=== PATIENT | female | born 1945 | race Caucasian/White ===

== ENCOUNTER → 2017-07-22 13:37 | Outpatient (CLI) | payer MEDICARE, SELFPAY | PROVIDERS: Family Provider Family Medicine Geriatric Medicine; PCP Family Medicine Geriatric Medicine; Visit Provider Family Medicine Geriatric Medicine | DX: R50.9 Fever, unspecified (principal) | CPT/HCPCS: 87633 ==

== ENCOUNTER → 2017-08-19 09:09 | Outpatient (CLI) | payer MEDICARE, SELFPAY ==
--- NOTE | 2017-08-19 09:15 | RAD_ITS ---
PROCEDURE: Fluoroscopic guided Hip Injection DATE: August 19, 2017. INDICATION: Female, 72 years old. Chronic right hip pain. PHYSICIAN: Joshua Rosario M.D. MEDICATIONS: 6 mg of betamethasone and 3 cc of 1% lidocaine. 2% Lidocaine administered subcutaneously for local anesthesia. ACCESS SITE: Right hip. NEEDLE: 22-gauge spinal needle. FLUOROSCOPY TIME (if supplied): (0:30) minutes/seconds FINDINGS: The risks, benefits, and alternatives to the procedure were explained to the patient. The specific risks of bleeding, infection, and neurovascular injury were detailed and accepted. Witnessed informed consent was obtained. A 22-gauge spinal needle was positioned under right graphic fluoroscopic localization. Approximately 2 cc of azygos 300 instilled for localization purposes. Medication was then injected. The patient tolerated the procedure well without any immediate complications. The patient was placed supine with head elevated and returned to the floor in stable condition. RAD/Inj/Asp Aroldo Jt Should/Hip/Knee IMPRESSION: 1. Successful fluoroscopic guided hip injection. Electronically Signed: Joshua Rosario MD at 10:17 EST Tel [phone], Service support ,
== END ==
PROVIDERS: Family Provider Family Medicine Geriatric Medicine; PCP Family Medicine Geriatric Medicine; Visit Provider Specialist
DX: M16.11 Unilateral primary osteoarthritis, right hip (principal)
CPT/HCPCS: 20610; 77002; Q9965; J0702

== ENCOUNTER 2017-08-29 16:20 | Emergency (ER) | payer MEDICARE, SELFPAY ==
[2017-08-29 16:21] VITALS: BP 150/82; PULSE 77; RESP 18; TEMP 36.4; O2SAT 97; BMI 46.0
--- NOTE | 2017-08-29 18:11 | US_ITS ---
STUDY: VENOUS DOPPLER ULTRASOUND - RIGHT LOWER EXTREMITY REASON FOR EXAM: Female, 72 years old. Right leg swelling TECHNIQUE: Ultrasound evaluation of the deep vein system to include lang-scale imaging and compression was performed. Lang-scale imaging and Doppler sonographic evaluation, including duplex spectral analysis and qualitative color flow sonography, was performed. COMPARISON: None. FINDINGS: Common Femoral Vein: Normal compression, spontaneity and augmentation. Normal color Doppler. Common Femoral Vein/Greater Saphenous Junction: Normal compression, spontaneity and augmentation. Normal color Doppler. Deep Femoral Vein: Normal compression, spontaneity and augmentation. Normal color Doppler. Femoral Proximal: Lack of compression, spontaneity and augmentation. Lack of color Doppler. Femoral Middle: Lack of compression, spontaneity and augmentation. Lack of color Doppler. Femoral Distal: Lack of compression, spontaneity and augmentation. Lack of color Doppler. Popliteal Vein: Lack of compression, spontaneity and augmentation. Lack of color Doppler. Posterior Tibial Vein: Lack of compression, spontaneity and augmentation. Lack of color Doppler. Peroneal Vein: Lack of compression, spontaneity and augmentation. Lack of color Doppler. US/Venous Duplex Imag/Limited/Uni IMPRESSION: Thrombosis femoral, popliteal, and calf veins N.B. : The above information has been verbally conveyed by Abdirizak Nunez MD to , Covering Physician, on 08/29/2017 19:54:52 (ET). Electronically Signed: Abdirizak Nunez MD at 19:54 EST , Service support , N.B. : The above information has been verbally conveyed by Abdirizak Nunez MD to , Covering Physician, on 08/29/2017 19:54:52 (ET).
--- NOTE | 2017-08-29 18:54 | ED.VISSUMM ---
- ER Visit Summary Date of Service: 08/29/17 Chief Complaint: Right lower extremity swelling distal mid thigh since hip injection Friday History of Present Illness: The patient is a 72 F who has history of GERD, pulmonary embolus, DVT and chronic pain who presents because of right lower extremity swelling discoloration with pain since she had an injection this past Friday. She denies chest pain, shortness of breath, dyspnea on exertion, orthopnea PND. She denies fever, chills or night sweats. She does have an IVC. Physical Examination: Vital signs are noted. Patient is morbidly obese with a BMI of 46.0. The right lower extremity is swollen discolored and there is pain patient on the just recent deep venous system. Patient's well score is greater than 3. Head is atraumatic normocephalic. Pupils are equal round reactive. Extraocular muscles are intact. TMs are pearly white with landmarks noted. Nares patent with no drainage. Posterior pharynx without erythema or exudate. Uvula is midline. There is no dysphonia or dysphasia. Trachea is midline. There is no stridor with auscultation of the neck. Heart is regular without murmur, gallop or rub. S1 and S2 are normal. Lungs are clear to auscultation with good movement of air bilaterally. Patient does have a bruise dorsal aspect of the right foot secondary to dropping an object on it this morning. Test Results: Venous duplex of the right lower extremity reveals clot femoral vein distally Emergency Department Course and Treatment: She was given options of Coumadin, Eliquis and Xarelto. After informed her of risk benefits of all 3 agents Eliquis was chosen. Treatment Plan: Eliquis 10 mg twice daily for 1 week then 5 mg twice daily Disposition: Discharge to home with family member Impression: Acute DVT right lower extremity femoral vein to foot This note was generated with [employer] dictation software. It may contain incorrect words, spelling, and punctuation that were not noted in review of the chart prior to signing ED Disposition - Plan for ED Patient: Disposition: Home or Assisted Living Chief Complaint: Edema Instructions: ED DVT Prescriptions: Apixaban [Eliquis] 10 mg PO BID #26 tab Referrals: Jefferson Roman Chi, MD [Primary Care Provider] - 5-7 Days
--- NOTE | 2017-08-29 18:59 | ED.VISSUMM ---
- ER Visit Summary Date of Service: 08/29/17 Chief Complaint: [] History of Present Illness: The patient is a 72 F [] Physical Examination: [] Test Results: [] Emergency Department Course and Treatment: [] Treatment Plan: [] Disposition: [] Impression: [] This note was generated with [employer] dictation software. It may contain incorrect words, spelling, and punctuation that were not noted in review of the chart prior to signing ED Disposition - Plan for ED Patient: Disposition: Home or Assisted Living Chief Complaint: Edema Instructions: ED DVT Prescriptions: Apixaban [Eliquis] 10 mg PO BID #26 tab Apixaban [Eliquis] 5 mg PO BID #30 tab Referrals: Jefferson Roman Chi, MD [Primary Care Provider] - 5-7 Days
[2017-08-29] MEDS: APIXABAN 5 MG TABLET 10 MG PO (19:21)
[2017-08-29 19:34] VITALS: BP 152/100; PULSE 80; RESP 20; O2SAT 97
== END 2017-08-29 19:34 | disposition home or self-care (01) ==
PROVIDERS: Emergency Provider Emergency Medicine; Family Provider Family Medicine Geriatric Medicine; PCP Family Medicine Geriatric Medicine
DX: I82.411 Acute embolism and thrombosis of right femoral vein (principal); E66.01 Morbid (severe) obesity due to excess calories; Z68.42 Body mass index [BMI] 45.0-49.9, adult; K21.9 Gastro-esophageal reflux disease without esophagitis; F32.9 Major depressive disorder, single episode, unspecified; Z86.711 Personal history of pulmonary embolism
CPT/HCPCS: 93971; 99283

== ENCOUNTER 2017-09-03 15:08 | Emergency (ER) | payer MEDICARE, SELFPAY ==
[2017-09-03 15:15] VITALS: BP 132/77; PULSE 80; PULSE 86; RESP 14; TEMP 36.7; O2SAT 95; O2SAT 96; BMI 46.6
--- NOTE | 2017-09-03 15:22 | EKG12_ITS ---
Test Reason : SOB Blood Pressure : / mmHG Vent. Rate : 080 BPM Atrial Rate : 080 BPM P-R Int : 160 ms QRS Dur : 094 ms QT Int : 384 ms P-R-T Axes : 027 -03 014 degrees QTc Int : 442 ms Normal sinus rhythm Inferior infarct , age undetermined Abnormal ECG Confirmed by ALETHA HARTMAN ([id number]), photographic editor JASE LU ([id number]) on 09/08/2017 1:59:56 PM Referred By: SAKINA Confirmed By:ALETHA HARTMAN
--- NOTE | 2017-09-03 15:22 | RAD_ITS ---
STUDY: X-RAY CHEST REASON FOR EXAM: Female, 72 years old. Chest pain. Weakness. TECHNIQUE: Single AP portable view of the chest. COMPARISON: Comparison is made with prior study dated December 30, 2016. FINDINGS: EKG electrodes are seen. Scattered calcified granulomas. There is no demonstrated pleural abnormality. Normal size heart. Normal mediastinum and epifanio. Normal visualized pulmonary arteries. There is atherosclerotic tortuosity of the aortic arch and descending thoracic aorta. There are diffuse degenerative changes of the visualized thoracic spine. There is degenerative osteoarthritis of the bilateral shoulders. There is no demonstrated abnormality of the visualized soft tissue structures of the upper abdomen. RAD/Chest 1 View (Portable) IMPRESSION: Normal x-ray examination of the chest. Electronically Signed: Joshua Rosario MD at 15:49 EDT Tel [phone], Service support ,
--- NOTE | 2017-09-03 15:29 | ED.VISSUMM ---
- ER Visit Summary Date of Service: 09/03/17 Chief Complaint: Shortness of breath History of Present Illness: The patient is a 72 F history of a recently diagnosed right leg DVT on Eliquis. States this morning she was short of breath. Denies any chest pain or hemoptysis. States her shortness of breath is worse with exertion. Eyes any fever or significant cough. She does have some edema in her lower extremities the right has been more swollen with the blood clot. Physical Examination: Older female no acute distress. Vital signs are stable afebrile. Her pulse ox is 95% on room air no signs of hypoxia. H exam unremarkable. Neck nontender no JVD. No lymphadenopathy. Lungs clear to auscultation bilaterally. No rales rhonchi or wheezing. Heart regular rate and rhythm rate 80s no murmur. Chest nontender. Abdomen soft nontender. Normal bowel sounds no peritoneal signs. Moving all 4 extremities neurovascular intact. She has trace edema both lower extremities greater in the right secondary to her DVT. She has normal range of motion of the upper and lower extremities. Dorsi plantar flexion intact as is board certified family physician strength bilaterally. Neurologically she is awake alert without focal motor deficits. Back exam nontender. Test Results: CBC normal. BMP normal. Troponin normal. BNP normal at 34. EKG sinus rhythm rate 80 no acute abnormality. Chest x-ray normal. CTA of the chest shows no acute abnormality no PE no dissection. No infiltrates no effusions. Emergency Department Course and Treatment: Pt. w/ shortness of breath and a known right lower extremity DVT on Eliquis. Treatment Plan: Multiple repeat exams the patient is doing well. Long discussion with her and her family. She is going to be discharged home with follow-up with Dr. Roman. Disposition: Discharge Impression: Acute dyspnea of uncertain etiology History of a right lower extremity DVT on Eliquis This note was generated with [employer] dictation software. It may contain incorrect words, spelling, and punctuation that were not noted in review of the chart prior to signing ED Disposition - Plan for ED Patient: Chief Complaint: Shortness of Breath Referrals: Jefferson Roman Chi, MD [Primary Care Provider] -
--- NOTE | 2017-09-03 15:32 | ED.DCSUM_ITS ---
- ER Visit Summary Date of Service: 09/03/17 Chief Complaint: Shortness of breath History of Present Illness: The patient is a 72 F history of a recently diagnosed right leg DVT on Eliquis. States this morning she was short of breath. Denies any chest pain or hemoptysis. States her shortness of breath is worse with exertion. Eyes any fever or significant cough. She does have some edema in her lower extremities the right has been more swollen with the blood clot. Physical Examination: Older female no acute distress. Vital signs are stable afebrile. Her pulse ox is 95% on room air no signs of hypoxia. H exam unremarkable. Neck nontender no JVD. No lymphadenopathy. Lungs clear to auscultation bilaterally. No rales rhonchi or wheezing. Heart regular rate and rhythm rate 80s no murmur. Chest nontender. Abdomen soft nontender. Normal bowel sounds no peritoneal signs. Moving all 4 extremities neurovascular intact. She has trace edema both lower extremities greater in the right secondary to her DVT. She has normal range of motion of the upper and lower extremities. Dorsi plantar flexion intact as is electrotyper helper strength bilaterally. Neurologically she is awake alert without focal motor deficits. Back exam nontender. Test Results: CBC normal. BMP normal. Troponin normal. BNP normal at 34. EKG sinus rhythm rate 80 no acute abnormality. Chest x-ray normal. CTA of the chest shows no acute abnormality no PE no dissection. No infiltrates no effusions. Emergency Department Course and Treatment: Pt. w/ shortness of breath and a known right lower extremity DVT on Eliquis. Treatment Plan: Multiple repeat exams the patient is doing well. Long discussion with her and her family. She is going to be discharged home with follow-up with Dr. Roman. Disposition: Discharge Impression: Acute dyspnea of uncertain etiology History of a right lower extremity DVT on Eliquis This note was generated with [employer] dictation software. It may contain incorrect words, spelling, and punctuation that were not noted in review of the chart prior to signing ED Disposition - Plan for ED Patient: Chief Complaint: Shortness of Breath Referrals: Jefferson Roman Chi, MD [Primary Care Provider] -
[2017-09-03 16:04] LABS: Absolute Lymphocyte Count 1.35 X10^3/ul (0.83-4.51); Absolute Neutrophil Count 4.2 X10^3/uL (2.0-7.7); Basophil# 0.04 X10^3/uL; Basophil% 0.6 % (0-1); Eosinophil# 0.09 X10^3/uL; Eosinophils% 1.4 % (0-5); Hematocrit 37.7 % (37-47); Hemoglobin 12.2 g/dl (12.0-15.0); Lymphocyte # 1.35 X10^3/ul (4.0); Lymphocyte % 21.7 % (19-41); Mean Corp Hgb Conc 32.4 g/gl (32-36); Mean Corpuscular Hgb 30.7 pg (27.0-32.0); Mean Platelet Vol. 9.4 fl (6.2-12.0); Monocyte# 0.48 X10^3/uL; Monocyte% 7.7 % (0-10); Neutrophil # 4.24 X10^3/uL (2.7-7.7); Neutrophil % 68.1 % (47-70); POSITIVE COUNT NO; POSITIVE DIFFERENTIAL NO; POSITIVE MORPHOLOGY NO; Platelet Count 254 K/mm3 (150-450); RBC Distribution Width CV 14.8 % (11.6-14.6); RBC Distribution Width SD 50.1 fl (35.1-43.9); Red Blood Count 3.97 M/mm3 (4.2-5.4); White Blood Count 6.2 K/mm3 (4.4-11.0)
[2017-09-03 16:18] LABS: Anion Gap 8 (5-15); BUN 21 mg/dL (7-18); BUN/Creat Ratio 28.7 RATIO (10-20); Chloride 110 mmol/L (98-107); Creatinine, Serum 0.73 mg/dL (0.55-1.02); EST Glomerular Filtration Rate 83 mL/min (>60); Est Glom Filt Rate - Afr Amer 101 mL/min (>60); Estimated Creatinine Clearance 50.18 ml/min; Glucose 93 mg/dL (74-106); Potassium 4.5 mmol/L (3.5-5.1); Sodium Level 141 mmol/L (136-145)
--- NOTE | 2017-09-03 16:19 | CT_ITS ---
STUDY: CTA CHEST REASON FOR EXAM: Female, 72 years old. Shortness of breath with known DVT. RADIATION DOSAGE (If Supplied By Facility): CTDIvol = ( 25.25 ) mGy, DLP = ( 1032.88 ) mGycm TECHNIQUE: The examination was performed with the intravenous administration of 100ML ml of Isovue 370 contrast material. Post-processing of the angiographic images was performed, with multiplanar reformation and 3D reconstruction. Individualized dose optimization techniques were used for this CT. COMPARISON: CT angiography of the chest dated December 31, 2016. FINDINGS: Cardiac monitoring leads are present. Normal enhancement of the main pulmonary artery and right and left pulmonary arteries. Normal enhancement of the bilateral peripheral pulmonary arteries. There is no demonstrated pulmonary embolism. There is prominence of the main pulmonary arteries without peripheral pulmonary vascular congestion. There is atherosclerotic tortuosity of the aortic arch and descending thoracic aorta. Maximum transverse dimension of ascending thoracic aorta measures approximately 3.5 cm. There is no demonstrated aortic dissection. Normal heart and pericardium. There may be some calcification of the mitral annulus. Appears to be enlarged left subcarinal lymph node measuring 2 x 1.3 x 1.6 cm in size. Normal hilar regions. Normal visualized trachea and bronchi. The lungs are well expanded. Normal pulmonary parenchyma. Normal pleura. Normal chest wall structures. There is increased thoracic kyphosis. There is multilevel thoracic spondylosis. There appears to be hemangioma within the L1 vertebral body. The bones appear osteopenic. Patient has had gastric bypass surgery with surgical sutures visible in the stomach. There is a small hiatal hernia. CT/CTA Chest W/WO Contrast IMPRESSION: No CTA demonstrated pulmonary embolism or arterial dissection. Electronically Signed: Nancy Abruto MD at 17:19 EDT , Service support ,
[2017-09-03 16:22] LABS: International Normalized Ratio 1.2; Prothrombin Time (Protime)PT. 15.6 SECONDS (11.7-14.9)
[2017-09-03 16:31] LABS: BNP,B-Type NATRIURETIC PEPTIDE 34.5 pg/mL (0-100)
[2017-09-03 17:11] VITALS: BP 128/70; PULSE 80; RESP 14; O2SAT 98
--- NOTE | 2017-09-03 17:46 | ED.DEP ---
ED Disposition - Plan for ED Patient: Disposition: Home or Assisted Living Chief Complaint: Shortness of Breath Instructions: ED Dyspnea Shortness of Breath Referrals: Jefferson Roman Chi, MD [Primary Care Provider] - As soon as possible Additional Instructions: All your tests were normal today. There is no specific cause for your shortness of breath. Please follow-up with Dr. Roman for further evaluation. Return to ER feeling worse.
[2017-09-03 17:53] VITALS: BP 120/78; PULSE 80; RESP 14; O2SAT 98
== END 2017-09-03 18:06 | disposition home or self-care (01) ==
PROVIDERS: Emergency Provider Emergency Medicine; Family Provider Family Medicine Geriatric Medicine; PCP Family Medicine Geriatric Medicine
DX: I82.491 Acute embolism and thrombosis of other specified deep vein of right lower extremity (principal); R06.02 Shortness of breath; I11.0 Hypertensive heart disease with heart failure; I50.9 Heart failure, unspecified; Z79.01 Long term (current) use of anticoagulants; Z86.711 Personal history of pulmonary embolism; Z87.442 Personal history of urinary calculi; Z79.899 Other long term (current) drug therapy
CPT/HCPCS: 71045; 71275; 80048; 83880; 84484; 85025; 85610; 93005; 99285; Q9967; A4216

== ENCOUNTER 2017-11-13 14:00 | Outpatient (RCR) | payer MEDICARE, SELFPAY ==
--- NOTE | 2017-10-06 14:41 | HP.PTEVAL_ITS ---
Patient's Visit Information ADAM NIX is a 72 year old F referred to Physical Therapy by Jefferson Roman with a diagnosis of Bilateral hip OA. Date of Evaluation: 09/23/17 Physical Therapist: Thong Lozano - Visit Plan Frequency: 2x /Week Duration: 4-6 Weeks Plan: Start with straight leg distraction, hip strengthening, HS stretching, Progress to HEP. May use modalities as needed to increase tolerance to all exercises/activities. - Subjective Subjective: Pt. is here today for her initial evaluation with diagnosis of bilateral hip OA. Pt. reports having increased symptoms for many years, but has become worse recently. Pt. reports doing aquatic therapy previously, but not having the greatest results. Pt. is now having pain in both hips with R being worse than L. Increased pain: walking, get up out of chair, stairs, lifting her legs, all ADLs. Improves: rest. Pt. denies N/T in either LE. No changes with heat/ice. Pt. has not been doing any hip exercises at home, pt. does light distal LE exercises. Pt. is able to ambulate with and without a cane, depending on the day. Pt. is hopeful to increase BLE strength and decrease symptoms in order to get back to all ADLs and recreational activities without limitations. - Pain R hip Pain Intensity (Out of 10): 0 Pain Intensity Range: 0, 6 L hip Pain Intensity (Out of 10): 0 Pain Intensity Range: 0, 4 - Objective POSTURE: Pt. is over wt. Pt. has wide LIGIA in stance with flexed posture. Pt. has anterior pelvic tilted positioning. Pt. has bilateral hip in ER postioning in stance. PALPATION: Pt. has increased tenderness to lateral greater ttrochanter on R side, none on L side. Pt. has pain throughout bilateral gluteal region and lumbar spine bilaterally. Pt. has no anterior thigh palpation. NEUROLOGICAL: Pt. has normal sensation throughout bilateral LEs to light and sharp touch. Pt. has 2+ achilles and patellar DTR bilaterally. Pt. is able to rise on heels,but has increased difficulty without balance aide. ROM: R hip- flexion 108deg increase NW, abd 40deg increase NW, ext 5 deg increase NW , ER 40deg NE (tight), IR 17deg increase NW. L hip- flexion 116deg increase nW, abd 50deg NE, ext 12deg increase NW, ER 50deg NE, IR 29deg increase NW. LUMBAR SPINE: flexion mod loss LBP, ext mod loss LBP, SB mod loss bilat increase NW, rotation mod los increase NW bilat. MMT: RLE- ankle 5/5 throughout; knee- ext 4 +/5, flexion 4+/5; hip- flexion 4-/5 increase NW, abd 4-/5 increase NW, ext 4/5 increase NW. LLE- ankle 5/5 throughout; knee- ext 4+/5, flexion 4+/5; hip- 4/5, abd 4/5, ext 4/5. GAIT: Pt. ambulates without Ad this date. Pt. has increased lateral hip translation during stance phase bilaterally. Pt. has increased pain during R stance phase, R worse than L. STAIRS: Pt. is able to negotiate with step to pattern 2 HR, increased pain during R stance phase with ascending and descending. Pt. negotiated 1/2 flight. - Special Tests R Hip Scour: Positive R Hip JOSE - Intraarticular Pathology: Positive R Hip FADDIR - Labrum: Positive R Hip Trendelenberg - Glut Medius: Positive L Hip Scour: Positive L Hip JOSE - Intraarticular Pathology: Positive L Hip FADDIR - Labrum: Positive L Hip Trendelenberg - Glut Medius: Positive - Goals Goal 1:: Pt. to be I with HEP. Goal Time Frame: 4-6 Weeks Goal 2:: Pt. to have increased B hip ROM by 25% in all directions without increase in symptoms. Goal Time Frame: 4-6 Weeks Goal 3:: Pt. to have increased BLE strength by 1/2 grade of all effected musculature to reduce stress applied to B hips with all functional mobility. Goal Time Frame: 4-6 Weeks Goal 4:: Pt. to ambulate 300+ feet without AD with improved gait pattern and 0-2 /10 pain in B hips allowing for increased independence in community. Goal Time Frame: 4-6 Weeks Goal 5:: Pt. to negotiate 1 flight of steps with 2 HR with reciprocal pattern with 0-2/10 pain in B hips. Goal Time Frame: 4-6 Weeks - Rehabilitation Potential Physical Therapy Diagnosis: Pt. has signs and symptoms consistent with B hip OA , R worse than L. Pt. has bilateral hip hypomobility, BLE weakness, difficulty with gait and increased pain during all loaded positions. Pt. would benefit from PT to reduce symptoms, increase BLE strength and progress functional mobility allowing for increased ability to complete all ADLs and improve quality of life. Rehabilitation Potential: Fair - Anticipated Interventions Patient/Client Instruction: Educate patient on: Condition, Plan of Care, Risk Factors, Benefits of Fitness Program For the Purpose of:: To improve safety, To improve health and function, To foster healthy habits, To improve decision making, To facilitate caregiver knowledge, To improve self management, To prevent re-injury, To improve ability to perform tasks related to life management, To improve tolerance to ADL's Therapeutic Exercise to Include: Strength training, Power training, Body mechanics, Postural training, Flexibilty training, Gait and locomotor training, Passive ROM, Active ROM, Dynamic Lumbar Stabilization For the Purpose of:: To decrease pain, To increase ROM, To improve nutrient delivery to tissue, To increase oxygenation perfusion, To improve muscle performance and motor function, To improve ability to perform ADL's, To improve gait and locomotor functions, To improve health of tissue, To decrease soft tissue restriction, To increase flexibility/ROM, To improve endurance, To improve balance Manual Therapy Techniques to Include: Trigger point massage, Mobilization, Passive ROM, Soft tissue mobilization For the Purpose of:: To decrease pain, To decrease swelling/inflammation, To increase ROM, To improve nutrient delivery to tissue IF ES: Yes Thermo therapy (hot pack): Yes Ultrasound (thermal/non thermal): Yes For the Purpose of:: To decrease pain, To decrease swelling/inflammation, To increase ROM, To improve nutrient delivery to tissue Thank you for the opportunity to evaluate your patient. For Medicare and Medicare HMO plans, please review the plan of care and approve it. It will need to be FAXED BACK to us at [phone] for Medicare purposes. Please let me know if there are questions or concerns regarding this plan of care. Physician Signature: Date:
--- NOTE | 2017-11-18 07:41 | HP.PTDCSUM ---
HP - PT D/C Summary It has been my pleasure to treat ADAM NIX under orders from Jefferson Roman, for the diagnosis of Bilateral hip OA for a total of 12 visit(s). Discharge Date: 11/13/17 Please see the following information for a summary of their discharge status. - Subjective Subjective: Pt reports R anterior knee pain this date, I am doing much better. - Pain R hip Pain Intensity (Out of 10): 0 L hip Pain Intensity (Out of 10): 0 - Overall Improvement % Improvement: 90 - Objective Objective/Function: AROM: R hip flex 104 deg. L hip flex 108 deg. PROM: R hip flex 95, ER 45, IR 10. L hip flex 105, ER 45, IR 20. MMT: R hip flex 4-, abd 4+. L hip flex 4-, abd 4+. R knee flex 4-, ext 4+. L knee flex 4, ext 4+. Ambulation: Pt amb with cane 340' and needed a rest break at 200'. Pt amb without AD 64'. - Goals Goal 1:: Pt. to be I with HEP. Goal Progress: Goal Met Goal 2:: Pt. to have increased B hip ROM by 25% in all directions without increase in symptoms. Goal Progress: Progressing Goal 3:: Pt. to have increased BLE strength by 1/2 grade of all effected musculature to reduce stress applied to B hips with all functional mobility. Goal Progress: Goal Met Goal 4:: Pt. to ambulate 300+ feet without AD with improved gait pattern and 0-2/10 pain in B hips allowing for increased independence in community. Goal Progress: Progressing Goal 5:: Pt. to negotiate 1 flight of steps with 2 HR with reciprocal pattern with 0-2/10 pain in B hips. Goal Progress: Progressing - Plan Plan: D/c to HEP. Pt. has made good gains with strength and functional mobility. Pt. is ready to be DC to gym exercises [facility] [employer] and HEP at home. Pt. consents. - D/C Information Discharge Comments: Pt d/c to HEP after 12 visits. Pt has improved B hip and knee strength and increased tolerance for amb. Pt continues to have pain with amb. Demonstrates decreased hip AROM. Pt has plan to continue with HEP and join the [employer] exercise program to maintain health and wellness. If there are questions or concerns regarding this patient's physical therapy, please feel free to call me at [phone]. Thank you for the referral of this patient. Sincerely, Thong Lozano
== END 2017-11-13 19:00 | disposition home or self-care (01) ==
LOC: PT 14:00
PROVIDERS: Family Provider Family Medicine Geriatric Medicine; PCP Family Medicine Geriatric Medicine; Visit Provider Family Medicine Geriatric Medicine
DX: M25.559 Pain in unspecified hip (principal)
CPT/HCPCS: 97014; 97032; 97110; 97163; 97530; G0283

== ENCOUNTER → 2017-12-16 16:00 | Outpatient (CLI) | payer MEDICARE, SELFPAY ==
[2017-12-16 16:26] LABS: Absolute Lymphocyte Count 1.09 X10^3/ul (0.83-4.51); Absolute Neutrophil Count 4.7 X10^3/uL (2.0-7.7); Basophil# 0.05 X10^3/uL; Basophil% 0.7 % (0-1); Eosinophil# 0.25 X10^3/uL; Eosinophils% 3.7 % (0-5); Hematocrit 41.1 % (37-47); Hemoglobin 13.2 g/dl (12.0-15.0); Lymphocyte # 1.09 X10^3/ul (4.0); Lymphocyte % 16.3 % (19-41); Mean Corp Hgb Conc 32.1 g/gl (32-36); Mean Corpuscular Hgb 30.7 pg (27.0-32.0); Mean Corpuscular Volume 95.6 fL (81-99); Mean Platelet Vol. 9.5 fl (6.2-12.0); Neutrophil # 4.66 X10^3/uL (2.7-7.7); Neutrophil % 69.9 % (47-70); Platelet Count 275 K/mm3 (150-450); RBC Distribution Width CV 13.5 % (11.6-14.6); RBC Distribution Width SD 46.3 fl (35.1-43.9); White Blood Count 6.7 K/mm3 (4.4-11.0)
[2017-12-16 16:27] LABS: POSITIVE COUNT NO; POSITIVE DIFFERENTIAL NO; POSITIVE MORPHOLOGY NO
[2017-12-16 16:57] LABS: ALB/GLOB Ratio 0.9 RATIO (0.9-2.4); AST(SGOT) 16 U/L (15-37); Alanine Aminotransfer ALT/SGPT 24 U/L (13-56); Albumin, Serum 3.3 g/dL (3.2-5.0); Alkaline Phosphatase 61 U/L (45-117); Anion Gap 7 (5-15); BUN 18 mg/dL (7-18); BUN/Creat Ratio 20.3 RATIO (10-20); Calcium,Total 7.9 mg/dL (8.5-10.1); Chloride 108 mmol/L (98-107); Creatinine, Serum 0.88 mg/dL (0.55-1.02); EST Glomerular Filtration Rate 67 mL/min (>60); Est Glom Filt Rate - Afr Amer 81 mL/min (>60); Globulin 3.5 g/dL (2.2-4.2); Glucose 84 mg/dL (74-106); Potassium 4.4 mmol/L (3.5-5.1); Protein, Total 6.8 g/dL (6.4-8.2); Sodium Level 141 mmol/L (136-145)
[2017-12-17 10:18] LABS: Vitamin D,25 Hydroxy 22.8 ng/mL (29.95-100.01)
[2017-12-18 11:03] LABS: Hep C Antibodies <0.1 s/co ratio (0.0-0.9)
== END ==
PROVIDERS: Family Provider Family Medicine Geriatric Medicine; PCP Family Medicine Geriatric Medicine; Visit Provider Family Medicine Geriatric Medicine
DX: R53.83 Other fatigue (principal); E55.9 Vitamin D deficiency, unspecified; Z13.89 Encounter for screening for other disorder
CPT/HCPCS: 36415; 80053; 82306; 84443; 85025; 86803

== ENCOUNTER 2018-01-01 13:48 | Emergency (ER) | payer MEDICARE, SELFPAY ==
[2018-01-01 13:49] VITALS: BP 148/77; PULSE 89; RESP 16; TEMP 36.9; O2SAT 98; BMI 45.4
[2018-01-01 14:56] LABS: Mucous, Urine 0 SEEN /hpf (<or=2+)
[2018-01-01 15:03] LABS: Color, Urine Yellow (Yellow); Glucose, Dipstick Normal (Normal); Ketone-Dipstick Negative (Negative); Leukocyte Esterase-Dipstick 500 /ul (Negative); Nitrite-Dipstick Positive (Negative); Occult Blood-Urine 250 /ul (Negative); Protein-Dipstick 30 mg/dl (Negative); Urine Bilirubin Dipstick Negative (Negative); Urine Clarity Sl. Cloudy (Clear); Urine Urobilinogen Normal (Normal)
[2018-01-01 15:11] LABS: Bacteria 2+ /hpf (None Seen); Red Blood Cells-Urine 25-50 SEEN /hpf (0-5); Squamous Epithelial Cells - UA 0-5 SEEN /hpf (5-10); White Blood Cells 25-50 SEEN /hpf (0-5)
--- NOTE | 2018-01-01 16:08 | ED.DCSUM_ITS ---
- ER Visit Summary Date of Service: 01/01/18 Chief Complaint: Back pain with concern for UTI History of Present Illness: The patient is a 72 F presenting for evaluation secondary to back pain and concern for UTI. Patient reports that over the course of the last 2-3 days she has been having right-sided flank pain. She reports that it was not associated with any sort of injury, to continuous type pain worse with palpation and movement. Patient states that this is also been associated with significant dysuria. She denies any presence of fevers. She denies any nausea vomiting. She denies any incontinence both urinary or fecal. Patient denies any radiation to the legs. Review of systems otherwise negative. Physical Examination: Vitals: Within normal limits General: Well-nourished well-developed no acute distress Head: Normocephalic atraumatic ENT: Moist mucous membranes Neck: Supple no JVD Cardiovascular: Heart regular rate and rhythm no murmurs Respiratory: Respirations nondistressed, lung sounds clear to auscultation bilaterally Abdominal: Soft, nontender, nondistended, normal bowel sounds, no evidence of abdominal masses or pulsatile mass Back: Normal to inspection, no midline tenderness to palpation, straight leg raise negative bilaterally, right-sided flank tenderness to palpation and percussion Extremities: Nontender, nonedematous, 2+ radial and PT pulses bilaterally symmetric Skin: Normal color no rash Neuro: 5/5 strength hip flexion, knee flexion, knee extension, dorsiflexion, plantarflexion, EHL. Sensation intact over all dermatomes of the lower extremities bilaterally, negative clonus bilaterally Test Results: Urinalysis demonstrates evidence of infection with positive blood , leukocytes, nitrates Emergency Department Course and Treatment: Patient presented with flank pain and returns for UTI. Urinalysis showed evidence of flexion. Patient is not tachycardic or febrile do not believe that sepsis workup is necessary. Patient also is complaining of continuous noncolicky pain with no history of kidney stones and do not believe that CT is indicated. Patient will be treated with Bactrim, urine cultured, and will also be given Pyridium. She understands signs and symptoms which to return, she will follow-up with her primary care physician to ensure resolution. Disposition: Discharge Impression: 1. Urinary tract infection This note was generated with [employer] software. It may contain incorrect words, spelling, and punctuation that were not noted in review of the chart prior to signing ED Disposition - Plan for ED Patient: Disposition: Home or Assisted Living Chief Complaint: Back Diagnosis: UTI (urinary tract infection) Instructions: ED Kidney Infec Female Prescriptions: Phenazopyridine HCl [Pyridium] 200 mg PO BID PRN PRN #10 tab PRN Reason: Pain Smz/Tmp Ds [Bactrim Ds] 1 tab PO BID #20 tab Referrals: Jefferson Roman Chi, MD [Primary Care Provider] - 3-5 Days
[2018-01-01 16:10] VITALS: PULSE 78; RESP 18; O2SAT 99
[2018-01-01] MEDS: Phenazopyridine 95 MG Tablet 190 MG PO (16:11)
[2018-01-01] MEDS: Smz/Tmp Ds Tablet 1 TABLET PO (16:11)
== END 2018-01-01 16:15 | disposition home or self-care (01) ==
PROVIDERS: Emergency Provider Emergency Medicine; Family Provider Family Medicine Geriatric Medicine; PCP Family Medicine Geriatric Medicine
DX: N39.0 Urinary tract infection, site not specified (principal)
CPT/HCPCS: 81001; 87077; 87086; 87088; 87186; 99285

== ENCOUNTER 2018-01-16 18:49 | Emergency (ER) | payer MEDICARE, SELFPAY ==
[2018-01-16 18:49] VITALS: BP 141/79; PULSE 98; RESP 18; TEMP 37.1; O2SAT 98; BMI 44.6
[2018-01-16 20:17] LABS: Bacteria 0 SEEN /hpf (None Seen); Mucous, Urine 0 SEEN /hpf (<or=2+)
[2018-01-16] MEDS: 0.9% Normal Saline 1,000 ML 999 ML IV (20:17)
[2018-01-16 20:18] LABS: Color, Urine Yellow (Yellow); Glucose, Dipstick Normal (Normal); Ketone-Dipstick Negative (Negative); Leukocyte Esterase-Dipstick 500 /ul (Negative); Nitrite-Dipstick Negative (Negative); Occult Blood-Urine 250 /ul (Negative); Protein-Dipstick 500 mg/dl (Negative); Specific Gravity, Urine 1.025 (1.002-1.030); Urine Bilirubin Dipstick Negative (Negative); Urine Clarity Cloudy (Clear); Urine Urobilinogen Normal (Normal)
[2018-01-16 20:36] LABS: Red Blood Cells-Urine 25-50 SEEN /hpf (0-5); Squamous Epithelial Cells - UA 0-5 SEEN /hpf (5-10); White Blood Cells 50-100 SEEN /hpf (0-5)
[2018-01-16 20:37] LABS: Calcium Oxalate Crystals Ur 3+ /hpf (<or=2+); Yeast-Urine RARE /hpf (None Seen)
[2018-01-16 20:41] LABS: Absolute Lymphocyte Count 1.34 X10^3/ul (0.83-4.51); Absolute Neutrophil Count 2.9 X10^3/uL (2.0-7.7); Basophil# 0.05 X10^3/uL; Eosinophil# 0.16 X10^3/uL; Eosinophils% 3.3 % (0-5); Hematocrit 40.1 % (37-47); Hemoglobin 12.7 g/dl (12.0-15.0); Lymphocyte # 1.34 X10^3/ul (4.0); Lymphocyte % 27.6 % (19-41); Mean Corp Hgb Conc 31.7 g/gl (32-36); Mean Corpuscular Hgb 30.2 pg (27.0-32.0); Mean Corpuscular Volume 95.2 fL (81-99); Mean Platelet Vol. 9.5 fl (6.2-12.0); Monocyte# 0.45 X10^3/uL; Monocyte% 9.3 % (0-10); Neutrophil # 2.85 X10^3/uL (2.7-7.7); Neutrophil % 58.8 % (47-70); Platelet Count 248 K/mm3 (150-450); RBC Distribution Width SD 48.7 fl (35.1-43.9); Red Blood Count 4.21 M/mm3 (4.2-5.4); White Blood Count 4.9 K/mm3 (4.4-11.0)
[2018-01-16 20:42] LABS: POSITIVE COUNT NO; POSITIVE DIFFERENTIAL NO; POSITIVE MORPHOLOGY NO
--- NOTE | 2018-01-16 20:48 | CT_ITS ---
STUDY: CT ABDOMEN AND PELVIS WITH CONTRAST REASON FOR EXAM: Female, 72 years old. Pain, urinary tract infection symptoms RADIATION DOSAGE (If Supplied By Facility): CTDIvol = ( 21.37 ) mGy, DLP = ( 2863.60 ) mGycm TECHNIQUE: Transaxial images were obtained from the lower chest to the upper thighs without oral contrast. 100 ml of Isovue 300 contrast was administered. Sagittal and coronal images were reconstructed. Individualized dose optimization techniques were used for this CT. COMPARISON: April 26, 2017 FINDINGS: There is minimal dependent atelectasis in both lung bases. There is no pleural effusion. The heart is normal in size. There are dense calcifications in the mitral valve. The liver is unremarkable. The gallbladder is surgically absent. The spleen is unremarkable. The pancreas is unremarkable. The adrenal glands are unremarkable. The right kidney is unremarkable. There is no dilatation of the collecting system in the right kidney. There are stable cysts in the left kidney. There is no dilatation of the collecting system in the left kidney. There is a moderate-sized hiatal hernia. There are surgical changes in the stomach after gastric bypass. There are surgical changes in the proximal small bowel. The colon is unremarkable. There is non-visualization of the appendix. There are minimal vascular calcifications. There is a filter in the infrarenal IVC. The retroperitoneum is unremarkable. There is no free fluid in the abdomen. The urinary bladder is small with marked wall thickening and surrounding stranding. There is absence of the uterus likely from prior hysterectomy. There are no abnormal masses in the adnexal regions. The soft tissues of the abdominal wall are unremarkable. There are moderate degenerative changes in the visualized spine. There are numerous hemangiomas scattered in the low spine. CT/Abdomen/Pelvis W IV Cont ONLY IMPRESSION: Findings in the bladder suggest a severe cystitis. There is no hydroureter or hydronephrosis. No abnormalities are evident in the kidneys to suggest pyelonephritis. There are no acute bowel abnormalities. There is no ascites, free air or significant lymphadenopathy. Electronically Signed: Manda Hannon MD at 22:00 EDT Tel Direct: [phone], Service support ,
[2018-01-16 20:56] LABS: Anion Gap 5 (5-15); BUN 28 mg/dL (7-18); BUN/Creat Ratio 36.3 RATIO (10-20); Chloride 111 mmol/L (98-107); Creatinine, Serum 0.77 mg/dL (0.55-1.02); EST Glomerular Filtration Rate 78 mL/min (>60); Est Glom Filt Rate - Afr Amer 95 mL/min (>60); Estimated Creatinine Clearance 50.18 ml/min; Glucose 104 mg/dL (74-106); Potassium 4.3 mmol/L (3.5-5.1); Sodium Level 140 mmol/L (136-145)
[2018-01-16] MEDS: oxyCODONE 5 MG Tablet 10 MG PO (21:42)
[2018-01-16 22:13] VITALS: BP 158/81; PULSE 80; RESP 16; O2SAT 97
[2018-01-16] MEDS: Phenazopyridine 95 MG Tablet 190 MG PO (22:17)
[2018-01-16] MEDS: Cephalexin 250 MG Capsule 500 MG PO (22:17)
--- NOTE | 2018-01-16 22:36 | ED.RN ---
update given to granddaughter over phone
--- NOTE | 2018-01-16 22:47 | ED.VISSUMM ---
- ER Visit Summary Date of Service: 01/16/18 Chief Complaint: Dysuria History of Present Illness: The patient is a 72 F who states that she has developed some lower abdominal pain pain radiating to her left flank. She states that she was diagnosed with urinary tract infection earlier this month. That culture grew out 2 types of E. coli with different resistance patterns. She states that she saw urology Dr Villavicencio on Friday and had a straight catheter urine specimen sent for culture. She states that she is not currently on antibiotics. Patient notes chills. She notes urinary frequency. She is on Eliquis Physical Examination: Afebrile vital signs are stable Patient has suprapubic tenderness to palpation and some left-sided CVA tenderness. Test Results: Urinalysis showed 50-100 white cells 25-50 red blood cells 3+ calcium oxalate crystals. CBC is normal chemistries BUN [address] the flank demonstrated no kidney stone. Changes of the bladder noted. Emergency Department Course and Treatment: I have reviewed her urine culture. I will place her on Keflex as well as some Pyridium. She received some oxycodone here in the department. Because of her significant allergy to ampicillin I gave her a dose of Keflex here and observed her. She is remained asymptomatic. Did advise her to follow-up with her urologist. Impression: 1. Cystitis This note was generated with [employer] dictation software. It may contain incorrect words, spelling, and punctuation that were not noted in review of the chart prior to signing ED Disposition - Plan for ED Patient: Disposition: Home or Assisted Living Chief Complaint: Complaint Instructions: ED UTI Cystitis Female Prescriptions: Cephalexin [Keflex] 500 mg PO Q6 #40 cap Phenazopyridine HCl [Pyridium] 200 mg PO TID #9 tab Referrals: Alejandra Villavicencio MD [STAFF PHYSICIAN] - (call to arrange follow up)
[2018-01-16 23:19] VITALS: BP 137/70; PULSE 88; RESP 16; TEMP 36.7; O2SAT 94
== END 2018-01-16 23:20 | disposition home or self-care (01) ==
PROVIDERS: Emergency Provider Emergency Medicine; Family Provider Family Medicine Geriatric Medicine; PCP Family Medicine Geriatric Medicine
DX: N30.90 Cystitis, unspecified without hematuria (principal); E66.9 Obesity, unspecified; K21.9 Gastro-esophageal reflux disease without esophagitis; E11.9 Type 2 diabetes mellitus without complications; F32.9 Major depressive disorder, single episode, unspecified; Z87.440 Personal history of urinary (tract) infections; Z90.49 Acquired absence of other specified parts of digestive tract; Z90.710 Acquired absence of both cervix and uterus; Z98.84 Bariatric surgery status; Z79.01 Long term (current) use of anticoagulants; Z79.899 Other long term (current) drug therapy
CPT/HCPCS: 74177; 80048; 81001; 85025; 96360; 99284; J7030; Q9967

== ENCOUNTER → 2018-03-03 14:53 | Outpatient (CLI) | payer MEDICARE, SELFPAY ==
[2018-03-03 17:04] LABS: Absolute Lymphocyte Count 0.91 X10^3/ul (0.83-4.51); Absolute Neutrophil Count 3.9 X10^3/uL (2.0-7.7); Basophil# 0.03 X10^3/uL; Basophil% 0.6 % (0-1); Eosinophil# 0.08 X10^3/uL; Eosinophils% 1.5 % (0-5); Hematocrit 38.9 % (37-47); Hemoglobin 12.1 g/dl (12.0-15.0); Lymphocyte # 0.91 X10^3/ul (4.0); Lymphocyte % 16.8 % (19-41); Mean Corp Hgb Conc 31.1 g/gl (32-36); Mean Corpuscular Hgb 29.7 pg (27.0-32.0); Mean Corpuscular Volume 95.6 fL (81-99); Monocyte# 0.49 X10^3/uL; Monocyte% 9.1 % (0-10); Neutrophil # 3.89 X10^3/uL (2.7-7.7); Neutrophil % 71.8 % (47-70); Platelet Count 256 K/mm3 (150-450); RBC Distribution Width CV 13.9 % (11.6-14.6); RBC Distribution Width SD 48.2 fl (35.1-43.9); Red Blood Count 4.07 M/mm3 (4.2-5.4); White Blood Count 5.4 K/mm3 (4.4-11.0)
[2018-03-03 17:19] LABS: POSITIVE COUNT NO; POSITIVE DIFFERENTIAL NO; POSITIVE MORPHOLOGY NO
[2018-03-03 17:28] LABS: AST(SGOT) 18 U/L (15-37); Alanine Aminotransfer ALT/SGPT 27 U/L (13-56); Albumin, Serum 3.1 g/dL (3.2-5.0); Alkaline Phosphatase 72 U/L (45-117); Anion Gap 8 (5-15); BUN 20 mg/dL (7-18); BUN/Creat Ratio 27.6 RATIO (10-20); Calcium,Total 8.6 mg/dL (8.5-10.1); Chloride 109 mmol/L (98-107); Creatinine, Serum 0.72 mg/dL (0.55-1.02); EST Glomerular Filtration Rate 84 mL/min (>60); Est Glom Filt Rate - Afr Amer 102 mL/min (>60); Globulin 3.1 g/dL (2.2-4.2); Glucose 89 mg/dL (74-106); Potassium 4.5 mmol/L (3.5-5.1); Protein, Total 6.2 g/dL (6.4-8.2); Sodium Level 140 mmol/L (136-145); Thyroid Stim Hormone (TSH) 1.48 uIU/mL (0.358-3.74)
== END ==
PROVIDERS: Family Provider Family Medicine Geriatric Medicine; PCP Family Medicine Geriatric Medicine; Visit Provider Family Medicine Geriatric Medicine
DX: R53.83 Other fatigue (principal)
CPT/HCPCS: 36415; 80053; 84443; 85025; 87086

== ENCOUNTER 2018-03-31 14:00 | Outpatient (RCR) | payer MEDICARE, SELFPAY ==
--- NOTE | 2018-03-18 14:41 | HP.PTEVAL_ITS ---
Patient's Visit Information ADAM NIX is a 72 year old F referred to Physical Therapy by Jefferson Roman with a diagnosis of weakness, general debility. Date of Evaluation: 03/10/18 Physical Therapist: Thong Lozano - Visit Plan Frequency: 2x /Week Duration: 4 Weeks Plan: strengthen LE to promote strong base of suport, improve walking stamina, progress balance exercise as tolerated - Subjective Subjective: Pt reports to physical therapy with general debility. pt reports feeling a sense of fatigue and a loss of energy. symptoms began with the onset of a UTI. pt's UTI has persisted for several months and is being managed with antibiotics. pt's sense of fatigue has increased with time and currently limits their ability to perform household task (sweep) and out of home task such as shopping. pt requires an electic cart when shopping. at home pt walks without cane but has trouble negociating stairs. outside of home pt uses a cane. Pt hopes to increase endurance and return to previous activity level (walking, shopping, light exercise). - Objective POSTURE: significant forward head and rounded shoulders. increased thoracic kyphosis. PALPATION: no pain throuhgout palpation of bilateral LEs. Pt. NEURO: normal sensation in LE. MMT: UE: 5/5; LE: 5/5, except bilat hip flexion and abduction 4/5 bilat. GAIT: use of cane, narrow base of support, shuffling gait, was only able to walk for ~3.5' Pt. ambulated 255' with high levels of fatigue. Pt. has slow tempo. STAIRS: Pt. is able to compelte with step to pattern wtih B HR without LOB, but did requier increased time to complete. - Balance Scores Functional Gait Assessment Score: 12 % Disability: 60.0000 - Goals Goal 1:: pt to complete 6 min walk test. Goal Time Frame: 4-6 Weeks Goal 2:: pt to score 18-19 on functional gait assessment. Goal Time Frame: 4-6 Weeks Goal 3:: Pt. to be able to ambulate 350+ ft with single point cane without signs of fatigue. Goal Time Frame: 4-6 Weeks Goal 4:: Pt. to negotaite steps with 2 HR with reciprocal pattern allowing for increased ease of mobility in home/community. - Rehabilitation Potential Physical Therapy Diagnosis: pt presents with symptoms associated with weakness and general debility. symptoms include decreased endurance with standing and walking and decreased balance. pt would benefit from physical therapy to promot increased stamina and increased balance to promot safe ambulation at home and whithin the community. Rehabilitation Potential: Good - Anticipated Interventions Patient/Client Instruction: Educate patient on: Condition, Plan of Care, Risk Factors, Benefits of Fitness Program For the Purpose of:: To improve muscle performance and motor function, To increase tolerance to activity/condition/position, To improve gait and locomotor functions, To improve health of tissue, To improve endurance, To improve balance, To improve safety Therapeutic Exercise to Include: Strength training, Power training, Endurance training, Balance training, Body mechanics, Postural training, Gait and locomotor training For the Purpose of:: To improve muscle performance and motor function, To increase tolerance to activity/condition/position, To improve ability of physical actions for home/community/work/leisure, To improve gait and locomotor functions, To improve endurance, To improve balance, To improve safety with gait Cryotherapy (ice pack, ice massage): Yes Thermo therapy (hot pack): Yes For the Purpose of:: To increase tolerance to activity/condition/position Thank you for the opportunity to evaluate your patient. For Medicare and Medicare HMO plans, please review the plan of care and approve it. It will need to be FAXED BACK to us at [phone] for Medicare purposes. Please let me know if there are questions or concerns regarding this plan of care. Physician Signature: Date:
--- NOTE | 2018-08-19 12:22 | HP.PTDCNRP_ITS ---
HP - Discharge Summary (1) - Patient Information ADAM NIX was seen in my office for initial evaluation on 03/10/18. The following Plan of Care was established for this patient: Initial Frequency: 2x /Week Initial Duration: 4 Weeks - Anticipated Interventions Patient/Client Instruction: Educate patient on: Condition, Plan of Care, Risk Factors, Benefits of Fitness Program For the Purpose of:: To improve muscle performance and motor function, To increase tolerance to activity/condition/position, To improve gait and locomotor functions, To improve health of tissue, To improve endurance, To improve balance, To improve safety Therapeutic Exercise to Include: Strength training, Power training, Endurance training, Balance training, Body mechanics, Postural training, Gait and locomot or training For the Purpose of:: To improve muscle performance and motor function, To increase tolerance to activity/condition/position, To improve ability of physical actions for home/community/work/leisure, To improve gait and locomotor functions, To improve endurance, To improve balance, To improve safety with gait Cryotherapy (ice pack, ice massage): Yes Thermo therapy (hot pack): Yes For the Purpose of:: To increase tolerance to activity/condition/position This patient was last seen in our office 03/31/18. Pertinent comments regarding their Physical therapy will appear below: Pt. was treated for her general debility in PT. She was treated with strength and exercises in closed chain with progression to functional exerciuses. Pt. did not attend her last visits has not been seen in several months. Pt. will be DC from PT at this point in time. At this point I will be discontinuing this patient from physical therapy. I would be happy to see this patient again in the future if found appropriate by the physician. Thank you! Thong Lozano, DEMETRIT
== END 2018-03-31 19:00 | disposition home or self-care (01) ==
LOC: PT 14:00
PROVIDERS: Family Provider Family Medicine Geriatric Medicine; PCP Family Medicine Geriatric Medicine; Visit Provider Family Medicine Geriatric Medicine
DX: R53.1 Weakness (principal); R53.81 Other malaise
CPT/HCPCS: 97110; 97161

== ENCOUNTER → 2018-05-28 14:59 | Outpatient (CLI) | payer MEDICARE, SELFPAY ==
[2018-05-25 09:26] VITALS: BMI 44.9
--- NOTE | 2018-05-28 15:04 | RAD_ITS ---
STUDY: X-RAY - PELVIS AND RIGHT HIP REASON FOR EXAM: Female, 73 years old. Right hip pain. TECHNIQUE: 3 views of the pelvis and hip. COMPARISON: None. FINDINGS: There is a non-specific bowel gas pattern. Normal visualized soft tissue structures. Normal bilateral iliac wings, sacroiliac joints and visualized sacrum. Normal bilateral superior and inferior pubic rami. Normal pubic symphysis. Normal bilateral ischial tuberosities. There are moderate degenerative changes of the left hip. There are osteoarthritic changes of the left femoral head with marginal osteophyte formation. There is cortical sclerosis with sub-cortical cyst formation of the lateral acetabulum. There is moderate articular joint space narrowing of the left hip. RAD/HIP, UNI W/ Pelvis 2-3 Views IMPRESSION: Degenerative changes of the left hip without fracture or dislocation. Electronically Signed: Rafael Choi DO at 16:31 EST Tel [phone], Service support ,
--- NOTE | 2018-05-28 15:10 | RAD_ITS ---
STUDY: X-RAY - RIGHT KNEE REASON FOR EXAM: Female, 73 years old. Right hip and knee pain. TECHNIQUE: 4 view(s) of the knee. COMPARISON: December 28, 2017. FINDINGS: Again seen is the colon knee arthroplasty which appears unchanged from the previous study. The prosthetic components are intact and articulate normally with each other. There is no loosening from the underlying bone. There is no evidence of osseous fracture. The soft tissues are grossly unremarkable. There is no joint effusion. RAD/Knee 4 or More Views IMPRESSION: Stable right total knee arthroplasty. Electronically Signed: Rafael Chio DO at 16:15 EST Tel [phone], Service support ,
== END ==
PROVIDERS: Family Provider Family Medicine Geriatric Medicine; PCP Family Medicine Geriatric Medicine; Referring Provider Family Medicine Geriatric Medicine; Visit Provider Family Medicine Geriatric Medicine
DX: M25.569 Pain in unspecified knee (principal)
CPT/HCPCS: 73502; 73564

== ENCOUNTER → 2018-07-24 08:37 | Outpatient (CLI) | payer MEDICARE, SELFPAY ==
[2018-07-23 10:24] VITALS: BMI 43.8
[2018-07-24 09:19] LABS: Erythrocyte Sedimentation Rate 4 mm/hr (0-30)
[2018-07-24 09:21] LABS: Absolute Lymphocyte Count 1.28 X10^3/ul (0.83-4.51); Absolute Neutrophil Count 2.4 X10^3/uL (2.0-7.7); Basophil# 0.04 X10^3/uL; Basophil% 0.9 % (0-1); Eosinophil# 0.11 X10^3/uL; Eosinophils% 2.5 % (0-5); Hematocrit 39.8 % (37-47); Hemoglobin 12.3 g/dl (12.0-15.0); Lymphocyte # 1.28 X10^3/ul (4.0); Lymphocyte % 29.4 % (19-41); Mean Corp Hgb Conc 30.9 g/gl (32-36); Mean Corpuscular Hgb 29.5 pg (27.0-32.0); Mean Corpuscular Volume 95.4 fL (81-99); Mean Platelet Vol. 9.6 fl (6.2-12.0); Monocyte# 0.51 X10^3/uL; Monocyte% 11.7 % (0-10); Neutrophil # 2.41 X10^3/uL (2.7-7.7); Neutrophil % 55.3 % (47-70); Platelet Count 248 K/mm3 (150-450); RBC Distribution Width CV 15.2 % (11.6-14.6); RBC Distribution Width SD 51.2 fl (35.1-43.9); Red Blood Count 4.17 M/mm3 (4.2-5.4); White Blood Count 4.4 K/mm3 (4.4-11.0)
[2018-07-24 09:22] LABS: POSITIVE COUNT NO; POSITIVE DIFFERENTIAL NO; POSITIVE MORPHOLOGY NO
[2018-07-24 09:40] LABS: CRP < 2.90 mg/L (0.0-3.0); Uric Acid 3.8 mg/dL (2.6-6.0)
== END ==
PROVIDERS: Family Provider Family Medicine Geriatric Medicine; PCP Family Medicine Geriatric Medicine; Referring Provider Orthopaedic Surgery; Visit Provider Orthopaedic Surgery
DX: M25.561 Pain in right knee (principal); Z96.653 Presence of artificial knee joint, bilateral
CPT/HCPCS: 36415; 84550; 85025; 85652; 86140

== ENCOUNTER 2018-08-11 07:03 | Day surgery (SDC) | payer MEDICARE, SELFPAY ==
[2018-05-25 09:26] VITALS: BMI 44.9
[2018-07-23 10:24] VITALS: BMI 43.8
[2018-08-11 07:26] VITALS: BP 135/81; PULSE 78; RESP 16; TEMP 37.3; O2SAT 98; BMI 43.7
--- NOTE | 2018-08-11 07:57 | HP.PCM_ITS ---
History of Present Illness Date of Admission: 08/11/18 The patient is a 73 year old F who is here for surveillance colonoscopy. She reports she had her last colonoscopy 3 years ago and 5 polyps were identified. She has had multiple polyps in the past. She says that her father had colon cancer in his 50s. She is having no abdominal pain or blood in her stool at this time. Past Medical/Surgical History - Planned Operation Planned Operative Procedure/s: cscope Date of Operative Procedure: 08/11/18 Permit Signed: No S.O.S: No Is This Patient Having a Total Joint: No - Previous Hospitalizations/Surgeries HX Hospitalizations: No HX of Surgeries: ELVIS. COMPOUND FX LEFT ARM. BILATERAL KNEE REPLACEMENTS. GASTRIC BYPASS. BLOOD CLOTS POST PROCEDURE. HYSTERECTOMY. tonsillectomy/adenoidectomy. carpal tunnel right. cscope multiple times. egd. eswl 2012 Any Problems With Anesthesia: No You/Your Family Experience Fever (Hyperthermia) With Anes: No Cholinesterase deficiency: No - Cardiovascular Hx Chest Pain within Last 2 months: No Hx of Irregular Heartbeat and/or Afib: No Hx Heart Attack: No Hx Congestive Heart Failure: No Hx Rheumatic Fever: No Hx Hypertension: Yes - no meds for 8 yrs Hx Internal Defibrillator: No Hx Pacemaker: No Hx Cardiac Catheterization: Yes - 2010 [facility] What facility [facility] heart cath performed: [facility] Date of last Heart Cath: 2010 Hx Cardiac Surgery/Stents/Etc.: No Hx Stress Test: Yes - 2016 [facility] HX Edema: Yes - lower legs in the past Hx Pain in Legs when Walking/Leg Cramps: Yes - neuropathy - Respiratory Chronic Cough: No HX of Shortness of Breath: No Hoarseness: No Hx Chronic Obstructive Pulmonary Disease (COPD): No Hx Asthma: No Hx Emphysema: No Hx Sleep Apnea: No CPAP: No BIPAP: No Hx Oxygen Use at Home: No Hx Respiratory Tract Infection/Cold (presently): No Do You Snore Loudly (louder than talking or can be heard): No Do You Often Feel Tired/ Fatigued/ Sleepy Dring Daytime?: Yes Has Anyone Observed You Stop Breathing During Sleep?: Yes Result (for STOP score): Positive Hx Smoking: No Smoking Status: Never smoker - Gastrointestinal Hx Gastroesophageal Reflux: Yes Controlled With Meds: No - not controlled with med Hx Gastrointestinal Disorders: No Hx Gastrointestinal Bleed: Yes - in the past 2010 after gastric bypass Hx Ulcer: No Hx Hiatal Hernia: Yes Difficulty Chewing/Swallowing: No Recent Onset of Swallowing Problems: No Special diet followed at home: No Hx Unplanned Weight Loss of 20#: No HX Unplanned Weight Gain of 20#: No - Neurological Hx Seizures: No HX Syncope/Blackout Spells/Unconsciousness: No Hx CVA/Stroke: No Hx Transient Ischemic Attacks (TIA): No Hx Multiple Sclerosis: No Hx Parkinson's Disease: No Hx Head/Neck Injury: No Hx Headaches: Yes - occ Hx Back Injury/Pain: Yes - lower back pain occ Recent Onset of Speech Difficulty: No Restless Legs: No Does patient have nerve stimulator: No Patient instructed to have device shut off: No Rep notified?: No - Blood Disorder Hx Leukemia: No Bleeding Tendencies: No - not prior to eliquis Hx Deep Vein Thrombosis: Yes - pe after gastric bypass Hx High Cholesterol: Yes - on med Blood Transmitted Disease: No Hx Hepatitis: No Hx Cirrhosis: No Hx Anemia: Yes - after pe/gi bleed Hx Blood Disorders: No - Reproduction : No Is Patient Lactating: No Hx Hysterectomy: Yes Hx Tubal Ligation: No Are You Post Menopause: Yes - Genitourinary Hx Renal Disease: No - FREQUENT UTI'S AND KIDNEY STONES Hx Dialysis: No - Musculoskeletal Hx Arthritis: Yes - hands, B hips Hx Rheumatoid Arthritis: No Hx Gout: No Recent Onset of an Orthopedic Problem: Yes - knee - Endocrine Hx Diabetes: Yes - no meds for 8 yrs/does not check blood sugar Insulin: No Thyroid Disease: No Hx Steroid Therapy: Yes - currently on dose matias/for leg pain - Psycho/Social Hx Substance Use: No Hx Alcohol Use: Yes - occ Hx Anxiety: No Hx Depression: No Mental Illness: No Hx Dementia: No - Miscellaneous Hx Cancer: No Recent Exposure to Contagious Disease: No Active MRSA: No Hx of C-Diff: No Any Loose Teeth: No - full set of dentures Allergies ampicillin [From Unasyn] Allergy (Severe, Verified 08/05/18 14:59) Other Blisters on tongue /throat difficulty breathing sore tongue/throat warfarin sodium [From Coumadin] Allergy (Severe, Verified 08/05/18 14:59) Low red blood cells Paternal Family History: Family History (Last Reviewed 05/25/18 @ 09:26 by Camille Steele) Other Heart disease High cholesterol Hypertension Myocardial infarction Cancer - Colon cancer Maternal Family History: Family History (Last Reviewed 05/25/18 @ 09:26 by Camille Steele) Other Heart disease High cholesterol Hypertension Myocardial infarction Hypertension - Discharge Is Pt Admitted From a Penitentiary, or a Fpc: No Who Could Help: daughter Special Equipment Used at Home: cane After D/C, Where Do you Plan to Go: Return Home - From the PAT History Number of Risk Factors: 7 - Physical Exam General: Alert, Oriented x3, Cooperative Lungs: Normal air movement Cardiovascular: Regular rate, Regular Rhythm Abdomen: Soft, Non Tender, Non-Distended Vital Signs Temp Pulse Resp BP Pulse Ox 99.2 F H 78 16 135/81 H 98 08/11/18 07:26 08/11/18 07:26 08/11/18 07:26 08/11/18 07:26 08/11/18 07:26 Oxygen Delivery Method Room Air Weight: 279 lb 1.683 oz Body Mass Index (BMI) 43.7 Assessment/Plan All Active Problems (Last Reviewed 05/25/18 @ 09:26 by Camille Steele) Segmental and somatic dysfunction of pelvic region (Acute) Facet arthropathy, lumbar (Acute) Segmental and somatic dysfunction of thoracic region (Acute) Segmental and somatic dysfunction of lumbar region (Acute) Shortness of breath on exertion (Acute) EKG abnormalities (Acute) Chills (Acute) Weakness (Acute) Abdominal pain (Acute) 73-year-old female for surveillance colonoscopy 1. Patient has strong family history of colon cancer and is at increased risk 2. I explained endoscopy in detail to the patient. I explained the risks including but not limited to stroke or heart attack with anesthesia, perforation of the GI tract, bleeding, infection. I explained that any of these could n ecessitate further emergency surgery. The patient understands and all questions were answered sufficiently. The patient wishes to proceed with procedure. Justin Angulo MD Pager: [facility] [address] [place] [address], [address] [place] [address] Office: Surgery Risks - Colonoscopy Risks Include but are not Limited To: Risks include but are not limited to: Bleeding, perforation requiring further surgery, inability to complete colonoscopy requiring barium enema.
--- NOTE | 2018-08-11 08:00 | COLBX_PTH ---
PATIENT: ADAM NIX LOC: EN U#:[id number] AGE/SX: 73/F ROOM: RE08/11/[address]: Dr. Justin Angulo MD : 1945 BED: DIS: 08/11/2018 SPEC #: [id number] RECD: 08/11/18 11:43 STATUS: CORNELIUS PONCHO #: [id number] PILAR: 08/11/18 08:[address]: Justin Angulo DEPT: SURGICAL PATHOLOGY RECD BY: Vidal Loja ENTERED: 08/11/18 13:03 SP TYPE: COLON BX OTHR DR: Dr. Jefferson Roman MD Tissues: COLON BIOPSY Procedures: Surgery Specimen Level IV HEADER OPERATION: Colonoscopy (MAC) PRE-OP DIAGNOSIS: Screening TISSUE SUBMITTED: Hepatic flexure polyp MICROSCOPIC DIAGNOSIS Hepatic flexure polyp, biopsy: Fragments of tubular adenoma. SJ:radha 08/12/18 MICROSCOPIC DESCRIPTION Slides are reviewed. GROSS DESCRIPTION Received in fixative is one container labeled with the patient's name and designated hepatic flexure polyp. The specimen consists of multiple irregular fragments of marmolejo soft tissue that in aggregate measure 1 x 0.5 x 0.3 cm. The specimen is totally submitted in one cassette. / SJ:rg 08/11/18 TC:1 CPT: 57929
[2018-08-11 08:36] VITALS: BP 132/69; BP 135/81; PULSE 80; RESP 18; TEMP 36.3; O2SAT 99
[2018-08-11 08:40] VITALS: BP 135/81; BP 137/74; PULSE 75; RESP 18; O2SAT 99
--- NOTE | 2018-08-11 08:40 | OP.ENDO_ITS ---
Patient Name: Mary Grace Anderson Procedure Date: 08/11/2018 7:45 AM Date of : 1945 Age: 73 Procedure: Colonoscopy Indications: High risk colon cancer surveillance: Personal history of colonic polyps, Family history of colon cancer in a first-degree relative Providers: Justin Angulo MD Medicines: Monitored Anesthesia Care Patient Profile: This is a 73 year old female. Refer to note in patient chart for documentation of history and physical. Last Colonoscopy: 3 years ago. Complications: No immediate complications. Estimated blood loss: Minimal. Procedure: Pre-Anesthesia Assessment: - Prior to the procedure, a History and Physical was performed, and patient medications and allergies were reviewed. The patient's tolerance of previous anesthesia was also reviewed. The risks and benefits of the procedure and the sedation options and risks were discussed with the patient. All questions were answered, and informed consent was obtained. Prior Anticoagulants: The patient has taken Eliquis (apixaban), last dose was 3 days prior to procedure. After reviewing the risks and benefits, the patient was deemed in satisfactory condition to undergo the procedure. After I obtained informed consent, the scope was passed under direct vision. Throughout the procedure, the patient's blood pressure, pulse, and oxygen saturations were monitored continuously. The pediatric colonoscope was introduced through the anus and advanced to the cecum, identified by appendiceal orifice and ileocecal valve. The colonoscopy was performed without difficulty. The patient tolerated the procedure well. The quality of the bowel preparation was good. Scope In: 8:03:22 AM Scope Withdrawal Time 0 hours 9 minutes 36 seconds Scope Out: 8:29:11 AM Total Procedure Duration Time 0 hours 25 minutes 49 seconds Findings: A polyp was found in the hepatic flexure. The polyp was removed with a hot snare. Resection and retrieval were complete. The exam was otherwise without abnormality on direct and retroflexion views. Impression: - One polyp at the hepatic flexure, removed with a hot snare. Resected and retrieved. - The examination was otherwise normal on direct and retroflexion views. Recommendation: - Discharge patient to home. - Resume previous diet. - Continue present medications. - Physician's office will call you with pathology results and recommendations for when to repeat colonoscopy. - Resume Eliquis (apixaban) at prior dose tomorrow. - Repeat colonoscopy is recommended. The colonoscopy date will be determined after pathology results from today's exam become available for review. Procedure Code(s): --- Professional --- 07429, Colonoscopy, flexible; with removal of tumor(s), polyp(s), or other lesion(s) by snare technique Diagnosis Code(s): --- Professional --- Z86.010, Personal history of colonic polyps D12.3, Benign neoplasm of transverse colon (hepatic flexure or splenic flexure) Z80.0, Family history of malignant neoplasm of digestive organs CPT copyright 2017 [employer]. All rights reserved. The codes documented in this report are preliminary and upon composition floor setter review may be revised to meet current compliance requirements. Justin Angulo MD 08/11/2018 8:39:53 AM This report has been signed electronically. Number of Addenda: 0 Note Initiated On: 08/11/2018 7:45 AM
[2018-08-11 08:45] VITALS: BP 135/68; BP 135/81; PULSE 76; RESP 18; O2SAT 99
[2018-08-11 08:50] VITALS: BP 135/81; BP 142/70; PULSE 71; RESP 18; TEMP 37.1; O2SAT 98
[2018-08-11 08:55] VITALS: BP 135/81
== END 2018-08-11 09:28 | disposition home or self-care (01) ==
LOC: EN 07:04 → AC 07:16
PROVIDERS: Family Provider Family Medicine Geriatric Medicine; PCP Family Medicine Geriatric Medicine; Referring Provider Surgery; Visit Provider Surgery
PROC: 0DJD8ZZ Inspection of Lower Intestinal Tract, Via Natural or Artificial Opening Endoscopic (ICD-10-PCS; CPT 45378; principal; 2018-08-11 07:55)
DX: Z12.11 Encounter for screening for malignant neoplasm of colon (principal); D12.3 Benign neoplasm of transverse colon; E78.00 Pure hypercholesterolemia, unspecified; E11.9 Type 2 diabetes mellitus without complications; Z98.84 Bariatric surgery status; I10 Essential (primary) hypertension; Z86.010 Personal history of colon polyps; Z80.0 Family history of malignant neoplasm of digestive organs
CPT/HCPCS: 45385; 88305; J7120

== ENCOUNTER → 2018-08-14 12:10 | Outpatient (CLI) | payer MEDICARE, SELFPAY ==
[2018-08-11 07:26] VITALS: BMI 43.7
== END ==
PROVIDERS: Family Provider Family Medicine Geriatric Medicine; PCP Family Medicine Geriatric Medicine; Referring Provider Family Medicine Geriatric Medicine; Visit Provider Family Medicine Geriatric Medicine
DX: R68.83 Chills (without fever) (principal)
CPT/HCPCS: 87633

== ENCOUNTER → 2018-09-15 08:59 | Outpatient (CLI) | payer MEDICARE, SELFPAY ==
--- NOTE | 2018-09-15 09:20 | RAD_ITS ---
STUDY: AIR-CONTRAST UPPER GI SERIES. REASON FOR EXAM: Female, 73 years old. Vomiting. History of prior gastric bypass surgery. FLUOROSCOPY TIME (if supplied): (0:30) minutes/seconds. 19 images were obtained. TECHNIQUE: The patient ingested barium. Multiple images of the esophagus, stomach and duodenum were obtained. COMPARISON: None. FINDINGS: There is dilatation of the entire esophagus. Decreased peristaltic activity. There is evidence of a gastroesophageal reflux. There is a moderate sized hiatal hernia. The patient is status post subtotal gastrectomy. No evidence of ulceration or mass lesion. RAD/Upper GI Series Only IMPRESSION: Dilated esophagus with decreased peristaltic activity in the gastroesophageal reflux. Status post subtotal gastrectomy. Electronically Signed: Joshua Rosario, at 13:36 EDT , Service support ,
== END ==
PROVIDERS: Family Provider Family Medicine Geriatric Medicine; PCP Family Medicine Geriatric Medicine
DX: R10.13 Epigastric pain (principal); K21.9 Gastro-esophageal reflux disease without esophagitis; Z98.84 Bariatric surgery status
CPT/HCPCS: 74246

== ENCOUNTER → 2018-09-24 13:56 | Outpatient (CLI) | payer MEDICARE, SELFPAY ==
--- NOTE | 2018-09-24 14:02 | VDLE_ITS ---
Reason For Study: LEG SWELLING RIGHT LEFT GSV is normal. GSV is normal. CFV is compressible, spontaneous, phasic, CFV is compressible, spontaneous, phasic, competent and demonstrates normal competent, and demonstrates normal augmentation. augmentation. FV is compressible, spontaneous, phasic, FV and POP V are compressible, patent, competent and demonstrates normal spontaneous, phasic and demonstrate augmentation. IMCOMPETENCY with augmentation. POP V is compressible, spontaneous, phasic, T/P Trunk is compressible. competent and demonstrates normal PTV is compressible. augmentation. LT PerV is compressible. T/P Trunk is compressible. PTV is compressible. RT PerV is compressible. Procedure Exam performed in department. A preliminary report was called and/or faxed to Dr. Roman. Interpretation Summary Deep veins of the lower extremities are bilaterally patent and compressible segmentally. There is no evidence of deep vein thrombosis on either side. Valvular competence appears intact within the proximal deep venous system on the right . On the left, the femoral vein and popliteal vein are incompetent. The greater saphenous veins appear bilaterally patent and compressible segmentally. Ordering Physician: Jefferson Roman Referring Physician: Jefferson Roman Chi Performed By: Chio Damico RVT
--- NOTE | 2018-09-24 14:40 | RAD_ITS ---
STUDY: X-RAY - LUMBAR SPINE REASON FOR EXAM: Female, 73 years old. Low back pain TECHNIQUE: 3 view(s) of the lumbar spine were obtained. COMPARISON: CT abdomen and pelvis 01/16/2018 FINDINGS: Normal lumbar lordosis. There is no substantial scoliosis. There is a normal alignment of the vertebrae. Normal vertebral bodies and endplates. Normal disc space heights. The soft tissue structures are unremarkable. There is an IVC filter to the right of L2 and surgical clips in the left upper quadrant and left midabdomen. RAD/Lumbar Spine 2 or 3 Views IMPRESSION: Normal x-ray examination of the lumbar spine. Electronically Signed: Nancy Hadley, at 15:56 EDT Tel , Service support ,
== END ==
PROVIDERS: Family Provider Family Medicine Geriatric Medicine; PCP Family Medicine Geriatric Medicine; Referring Provider Family Medicine Geriatric Medicine; Visit Provider Family Medicine Geriatric Medicine
DX: R60.0 Localized edema (principal); M54.5 Low back pain
CPT/HCPCS: 72100; 93970

== ENCOUNTER → 2018-09-29 09:54 | Outpatient (CLI) | payer MEDICARE, SELFPAY ==
--- NOTE | 2018-09-29 09:56 | ART_ITS ---
Reason For Study: PVD Left Segmental Pressures Left brachial= 159mmHg. Left posterior tibial artery = 171mmHg. Left dorsalis pedis artery = 158mmHg. Left digit = 68 mmHg. The left dorsalis pedis waveforms are triphasic. The left posterior tibial artery waveforms are triphasic. Right Segmental Pressures Right brachial= 156mmHg. Right posterior tibial artery = 171mmHg. Right dorsalis pedis artery = 168mmHg. Right digit = 129 mmHg. The right dorsalis pedis waveforms are triphasic. The right posterior tibial artery waveforms are triphasic. Indices The right ankle brachial index by the dorsalis pedis is 1.06. The right ankle brachial index by the posterior tibial artery is 1.08. The right digital-brachial index is .81. The left ankle brachial index by the posterior tibial artery is 1.08. The left ankle brachial index by the dorsalis pedis is .99. The left digital-brachial index is .43. Interpretation Summary Triphasic Doppler waveforms are noted at ankle level bilaterally. Pulse-volume waveform amplitudes are diminished at digital level on the left. Resting ankle-brachial indices are normal bilaterally. The right digital-brachial index is normal. The left digital-brachial index is moderately diminished. Arterial flow appears to be normal at ankle level bilaterally. Arterial flow appears to be normal at digital level on the right. Arterial flow at digital level on the left appears to be moderately diminished. Ordering Physician: Jefferson Roman Performed By: Chance Wong RVT
== END ==
PROVIDERS: Family Provider Family Medicine Geriatric Medicine; PCP Family Medicine Geriatric Medicine; Referring Provider Family Medicine Geriatric Medicine; Visit Provider Family Medicine Geriatric Medicine
DX: I73.9 Peripheral vascular disease, unspecified (principal); R20.0 Anesthesia of skin
CPT/HCPCS: 93922

== ENCOUNTER 2018-11-17 15:33 | Emergency (ER) | payer MEDICARE, SELFPAY ==
[2018-11-17 15:34] VITALS: BP 126/68; PULSE 76; RESP 18; TEMP 36.5; O2SAT 96
[2018-11-17 15:35] VITALS: BP 126/68; PULSE 79; RESP 19; TEMP 36.5; O2SAT 96; BMI 48.3
[2018-11-17 17:34] VITALS: BP 137/71; PULSE 67; RESP 20; O2SAT 96
--- NOTE | 2018-11-17 17:36 | CT_ITS ---
We are attempting to reach an attending provider to discuss findings. An addendum with communication details will be sent when the communication is complete. STUDY: CT BRAIN WITHOUT CONTRAST REASON FOR EXAM: Female, 73 years old. Fall 2 days ago, on blood thinners RADIATION DOSAGE (If Supplied By Facility): CTDIvol = ( 44.99 ) mGy, DLP = ( 846.73 ) mGycm TECHNIQUE: Transaxial CT imaging of the brain was performed without administration of intravenous contrast material. Individualized dose optimization techniques were used for this CT. COMPARISON: No relevant priors. FINDINGS: Normal soft tissue structures. Normal calvarium. Bilateral lens replacements. Normal size ventricles and extra-axial spaces for the patient's age. There are areas of decreased attenuation within the white matter tracts of the supratentorial brain, consistent with microvascular disease changes. Age-related changes of the basal ganglia. Normal cerebellum. A faint 5 x 5 mm density is present in the right cerebral peduncle on image 21 of series 2 with an attenuation value of 70 Hounsfield units. A small parenchymal hematoma is not excluded. Consider MRI correlation if clinically indicated. There are no findings of an acute ischemic infarction. Chronic left sphenoid sinus disease. CT/Brain/Head without Contrast IMPRESSION: A faint 5 x 5 mm density is present in the right cerebral peduncle. A small parenchymal hematoma is not excluded. Consider MRI correlation if clinically indicated. Electronically Signed: Cristian Elizabeth MD at 18:02 EDT Tel , Service support ,
--- NOTE | 2018-11-17 17:37 | EKG12_ITS ---
Test Reason : FALL Blood Pressure : / mmHG Vent. Rate : 064 BPM Atrial Rate : 064 BPM P-R Int : 178 ms QRS Dur : 096 ms QT Int : 414 ms P-R-T Axes : 050 012 032 degrees QTc Int : 427 ms Normal sinus rhythm Normal ECG Confirmed by ALETHA HARTMAN ([id number]), business editor MARIO ARROYO ([id number]) on 11/19/2018 8:34:36 AM Referred By: JASVIR Confirmed By:ALETHA HARTMAN
--- NOTE | 2018-11-17 17:39 | ED.VIS.GEN ---
History of Present Illness Chief Complaint: Fall Informant: Patient, Family - Family member is daughter who is POA Onset: - - Patient fell Friday entering home after attending restorationist. She states she lost her balance. She believes she blacked out. She reports hitting her head. She does complain of headache. She also can planes of bilateral hip pain. She is able to ambulate. Context: Sudden Onset Timing: Continuous Quality: Right parietal region, right and left hip region Location: Pain Current Severity: Mild Maximum Severity: Moderate Worsened by: Movement of right and left lower extremity Relieved by: Reportedly nothing Associated Symptoms: Pain otherwise nothing Narrative: Patient is an elderly woman who is on Eliquis for blood clots who had a fall secondary to loss of balance. She has problems with her balance. She believes she may have blacked out. She did hit her head. She is on Eliquis for the multiple blood clots. She does claim of head pain. Denies double vision, blurred vision loss of vision. Denies ringing or ears. She denies neck pain. She complains of by lateral hip pain. She states she fell on her hip and then landed on her left hip. She believes she has bruises. She denies paresthesia, anesthesia or motor weakness. She denies neck pain. Patient held Eliquis doses for several days prior to Friday because of pain block. Eliquis was not resumed until Friday. Prior similar symptoms: No Recent Illness/Hospitalization: No - Past Medical History (1) History of DVT (deep vein thrombosis) Status: Chronic (2) History of gastric bypass Status: Chronic (3) Obesity Status: Chronic Past Medical History - Allergies and Home Meds Allergies/Adverse Reactions: Allergies ampicillin [From Unasyn] Allergy (Severe, Verified 11/17/18 15:34) Other Blisters on tongue /throat difficulty breathing sore tongue/throat warfarin sodium [From Coumadin] Allergy (Severe, Verified 11/17/18 15:34) Low red blood cells Primary Care Physician: Jefferson Roman Chi, MD [Primary Care Provider] - Prior records reviewed: Yes - To depression and GERD Surgical History: cholecystectomy, hysterectomy, tonsillectomy, - - Gastric bypass, surgery for left arm fracture Lives: With Family Smoking Status: Never smoker Alcohol: None - Family History Paternal Family History: Family History (Last Reviewed 09/08/18 @ 14:12 by Camille Steele) Other Heart disease High cholesterol Hypertension Myocardial infarction Family History: Reports: Cancer - Colon cancer Maternal Family History: Family History (Last Reviewed 09/08/18 @ 14:12 by Camille Steele) Other Heart disease High cholesterol Hypertension Myocardial infarction Family History: Reports: Hypertension Review of Systems General: Denies: Chills, Fever, Malaise, Sweats Eyes: Denies: Visual changes - bilaterally, Blurred Vision - bilaterally, Diplopia ENT: Denies: Bilateral ear pain, Rhinorrhea, Sore throat Cardiovascular: Denies: Chest pain, Palpitations Respiratory: Denies: Dyspnea, Cough, Dyspnea on exertion Gastrointestinal: Denies: Abdominal pain, Nausea, Vomiting, Diarrhea, Melena, Hematochezia Genitourinary: Denies: Dysuria, Hematuria, Frequency Musculoskeletal: Reports: Extremity Pain Skin: Denies: Rash, Abrasions, Wounds Neurological: Reports: Headache. Denies: Weakness, Parasthesia, Numbness Psych: Reports: Depression Hematologic: Reports: Easy bruising. Denies: Easy bleeding Allergy: Denies: Uticaria, Swelling of the mouth Physical Exam Vital Signs/Narrative: Vital Signs Temp Pulse Resp BP Pulse Ox 11/17/18 15:35 97.7 F L 79 19 H 126/68 H 96 11/17/18 15:34 97.7 F L 76 18 126/68 H 96 Inital Vital Signs reviewed: Yes General: Well nourished, Well developed, Obese, No Acute Distress Head: Normocephalic, Trauma, Tenderness - Right parietal region Eyes: Perrl, EOMI. Negative for: Pale conjunctiva, Scleral icterus, - ENT: Moist mucous membranes, No rhinorrhea, TM's clear Neck: Supple, Nontender Cardiovascular: Regular rate, Regular rhythm, No murmurs Respiratory: No distress, CTA bilaterally, Chest nontender Abdomen: Soft, Nontender, Nondistended, Normal bowel sounds Back: Nontender, Normal Inspection Extremities: Nontender, No edema, - - There is contusion posterior proximal left thigh. There is no evidence of contusion or hematoma right thigh or hip. The pelvis is nontender. Skin: Normal color, No rash, Trauma. Negative for: Cyanosis, Jaundice Neurological: Alert, Oriented x3, Cranial nerves II-XII grossly intact, Normal Strength, Normal Sensation, Normal DTR, Normal Gait Psychological: Normal affect, Normal Mood Diagnostic/Tx/Re-eval Impressions Brain CT 11/17/18 17:36 IMPRESSION: A faint 5 x 5 mm density is present in the right cerebral peduncle. A small parenchymal hematoma is not excluded. Consider MRI correlation if clinically indicated. Electronically Signed: Cristian Elizabeth MD at 18:02 EDT Tel , Service support , ADDENDUM: 11/17/18 1842 IMPRESSION: A faint 5 x 5 mm density is present in the right cerebral peduncle. A small parenchymal hematoma is not excluded. Consider MRI correlation if clinically indicated. N.B. : The above information has been verbally conveyed by Cristian Elizabeth MD to Facundo Hoang MD, on 11/17/2018 18:36:00 (ET). Electronically Signed: Cristian Elizabeth MD at 18:02 EDT Tel , Service support , 11/17/18 17:36 Brain/Head without Contrast [CT] Stat 11/17/18 18:20 MRI Brain [Brain without Contrast] [MRI] Stat Laboratory Results 11/17/18 11/17/18 18:00 18:00 WBC 7.3 RBC 4.11 L Hgb 12.5 Hct 38.8 MCV 94.4 MCH 30.4 MCHC 32.2 RDW 13.8 RDW Differential 47.2 H Plt Count 238 MPV 10.3 Immature Gran % (Auto) 0.500 Neut % (Auto) 64.2 Lymph % (Auto) 24.0 Noble % (Auto) 9.7 Eos % (Auto) 1.2 Baso % (Auto) 0.4 Absolute Neuts (auto) 4.7 Absolute Lymphs (auto) 1.75 Total Counted Not Reportable Sodium 138 Potassium 4.5 Chloride 105 Carbon Dioxide 29.0 Anion Gap 4 L BUN 25 H Creatinine 0.81 Estim Creat Clear Calc 56.49 Est GFR (MDRD) Af Amer 90 Est GFR (MDRD) Non-Af 74 BUN/Creatinine Ratio 30.9 H Glucose 106 Calcium 8.8 Troponin I < 0.015 Arrived reveals no acute bleed. The abnormality noted on CAT scan it was an angioma. Patient and family was made aware of MRI results. - Medical Decision Making This patient had a head trauma with reported loss of conscious on anticoagulant CT of the head was obtained. Because she reports she blacked out EKG and appropriate blood work was obtained which included a CBC to assess for anemia, electrode panel and troponin. Patient was moved from hallway to room. Abnormality was noted on CT. There is a concern this is a hemorrhage. Patient is on Eliquis and is on Eliquis because of multiple clots. MRI was obtained since patient should be anticoagulated if this is not a bleed and would prevent unnecessary transfer to trauma center. I did speak with the radiologist Dr. Elizabeth who states he is concerned this is hemorrhage and states likelihood is 45%. Patient and family were made aware that an MRI was ordered to evaluate for bleed. Since MRI does not reveal bleed she will be discharged to home with appropriate home-going instructions. ED Disposition - Plan for ED Patient: Disposition: Home or Assisted Living Diagnosis: Concussion without loss of consciousness, initial encounter, Contusion of right hip, initial encounter, Anticoagulant long-term use, Syncope and collapse Instructions: ED Concussion, ED Contusion Hip, ED Fainting Unkn Cause Referrals: Jefferson Roman Chi, MD [Primary Care Provider] - As Needed
[2018-11-17 18:09] LABS: Absolute Lymphocyte Count 1.75 X10^3/ul (0.83-4.51); Absolute Neutrophil Count 4.7 X10^3/uL (2.0-7.7); Basophil# 0.03 X10^3/uL; Basophil% 0.4 % (0-1); Eosinophil# 0.09 X10^3/uL; Eosinophils% 1.2 % (0-5); Hematocrit 38.8 % (37-47); Hemoglobin 12.5 g/dl (12.0-15.0); Lymphocyte # 1.75 X10^3/ul (4.0); Mean Corp Hgb Conc 32.2 g/gl (32-36); Mean Corpuscular Hgb 30.4 pg (27.0-32.0); Mean Corpuscular Volume 94.4 fL (81-99); Mean Platelet Vol. 10.3 fl (6.2-12.0); Monocyte# 0.71 X10^3/uL; Monocyte% 9.7 % (0-10); Neutrophil # 4.68 X10^3/uL (2.7-7.7); Neutrophil % 64.2 % (47-70); Platelet Count 238 K/mm3 (150-450); RBC Distribution Width CV 13.8 % (11.6-14.6); RBC Distribution Width SD 47.2 fl (35.1-43.9); Red Blood Count 4.11 M/mm3 (4.2-5.4); White Blood Count 7.3 K/mm3 (4.4-11.0)
[2018-11-17 18:10] LABS: POSITIVE COUNT NO; POSITIVE DIFFERENTIAL NO; POSITIVE MORPHOLOGY NO
--- NOTE | 2018-11-17 18:20 | MRI_ITS ---
STUDY: MRI BRAIN WITHOUT CONTRAST REASON FOR EXAM: Female, 73 years old. Fall, LOC, disequilibrium, abnormal head CT, possible small acute hemorrhage in the right cerebral peduncle on recent head CT TECHNIQUE: Standardized multiplanar fat and water weighted pulse sequences were obtained. COMPARISON: None. FINDINGS: Normal size of the ventricles and extra-axial spaces for the patient's age. There are multiple white matter hyperintensities, distributed throughout the deep white matter tracts of the cerebral hemispheres, consistent with moderate chronic white matter ischemic changes. Normal bilateral basal ganglia. Normal thalami. There is no extra-axial fluid accumulation. Normal flow voids within the major intracranial circulation suggesting patency by spin echo criteria. 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 The first, corresponding to density seen on recent CT, is in the right cerebral peduncle measuring 5 mm. The second is in the lateral right thalamus measuring 7 x 6 mm. The third is in the medial right cerebellar hemisphere measuring 4 mm. None are associated with acute hemorrhage at this time. Normal sella turcica, pituitary gland, infundibular stalk, optic chiasm and hypothalamus. Normal tectal plate and pineal gland. Normal midbrain, james and medulla. Normal cerebellum. Normal basal cisterns. Normal bilateral temporal bones. Normal bilateral internal auditory canals. There are bilateral ocular lens implants with otherwise normal intraorbital contents. Normal visualized paranasal sinuses. Mild left mastoid sinus disease. Normal visualized soft tissue structures. Normal visualized upper cervical spine. 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 The angioma in the right cerebral peduncle accounts for the recent CT finding. The others are seen in the right thalamus and the right cerebellum. None are associated with acute hemorrhage at this time. Electronically Signed: Cristian Elizabeth MD at 19:58 EDT Tel , Service support ,
[2018-11-17 18:34] LABS: Anion Gap 4 (5-15); BUN 25 mg/dL (7-18); BUN/Creat Ratio 30.9 RATIO (10-20); Calcium,Total 8.8 mg/dL (8.5-10.1); Chloride 105 mmol/L (98-107); Creatinine, Serum 0.81 mg/dL (0.55-1.02); EST Glomerular Filtration Rate 74 mL/min (>60); Est Glom Filt Rate - Afr Amer 90 mL/min (>60); Estimated Creatinine Clearance 56.49 ml/min; Glucose 106 mg/dL (74-106); Potassium 4.5 mmol/L (3.5-5.1); Sodium Level 138 mmol/L (136-145)
[2018-11-17 21:16] VITALS: BP 143/66; PULSE 73; PULSE 75; RESP 20; O2SAT 96; O2SAT 97
== END 2018-11-17 21:25 | disposition home or self-care (01) ==
PROVIDERS: Emergency Provider Emergency Medicine; Family Provider Family Medicine Geriatric Medicine; PCP Family Medicine Geriatric Medicine
DX: S06.0X0A Concussion without loss of consciousness, initial encounter (principal); S70.01XA Contusion of right hip, initial encounter; W19.XXXA Unspecified fall, initial encounter; Y93.9 Activity, unspecified; Y92.89 Other specified places as the place of occurrence of the external cause; Y99.9 Unspecified external cause status; D18.00 Hemangioma unspecified site; R55 Syncope and collapse; E66.9 Obesity, unspecified; Z88.0 Allergy status to penicillin; Z98.84 Bariatric surgery status; Z86.718 Personal history of other venous thrombosis and embolism; Z79.01 Long term (current) use of anticoagulants
CPT/HCPCS: 70450; 70551; 80048; 84484; 85025; 93005; 99284

== ENCOUNTER → 2018-12-18 09:55 | Outpatient (CLI) | payer MEDICAID, SELFPAY ==
[2018-12-18 12:27] LABS: Absolute Lymphocyte Count 1.67 X10^3/ul (0.83-4.51); Basophil# 0.03 X10^3/uL; Basophil% 0.6 % (0-1); Eosinophil# 0.14 X10^3/uL; Eosinophils% 2.7 % (0-5); Hematocrit 40.8 % (37-47); Hemoglobin 13.2 g/dl (12.0-15.0); Lymphocyte # 1.67 X10^3/ul (4.0); Lymphocyte % 31.7 % (19-41); Mean Corp Hgb Conc 32.4 g/gl (32-36); Mean Corpuscular Hgb 30.6 pg (27.0-32.0); Mean Corpuscular Volume 94.7 fL (81-99); Mean Platelet Vol. 10.6 fl (6.2-12.0); Monocyte# 0.43 X10^3/uL; Monocyte% 8.2 % (0-10); Neutrophil # 2.95 X10^3/uL (2.7-7.7); Platelet Count 250 K/mm3 (150-450); RBC Distribution Width CV 13.6 % (11.6-14.6); RBC Distribution Width SD 47.7 fl (35.1-43.9); Red Blood Count 4.31 M/mm3 (4.2-5.4); White Blood Count 5.3 K/mm3 (4.4-11.0)
[2018-12-18 12:28] LABS: POSITIVE COUNT NO; POSITIVE DIFFERENTIAL NO; POSITIVE MORPHOLOGY NO
[2018-12-18 12:41] LABS: Vitamin D,25 Hydroxy 37.9 ng/mL (29.95-100.01)
[2018-12-18 12:47] LABS: ALB/GLOB Ratio 0.9 RATIO (0.9-2.4); AST(SGOT) 15 U/L (15-37); Alanine Aminotransfer ALT/SGPT 20 U/L (13-56); Albumin, Serum 3.1 g/dL (3.2-5.0); Alkaline Phosphatase 93 U/L (45-117); Anion Gap 6 (5-15); BUN 29 mg/dL (7-18); BUN/Creat Ratio 32.1 RATIO (10-20); Calcium,Total 8.7 mg/dL (8.5-10.1); Chloride 108 mmol/L (98-107); EST Glomerular Filtration Rate 65 mL/min (>60); Est Glom Filt Rate - Afr Amer 79 mL/min (>60); Globulin 3.3 g/dL (2.2-4.2); Glucose 84 mg/dL (74-106); Protein, Total 6.4 g/dL (6.4-8.2); Sodium Level 140 mmol/L (136-145); Thyroid Stim Hormone (TSH) 2.52 uIU/mL (0.358-3.74)
== END ==
PROVIDERS: Family Provider Family Medicine Geriatric Medicine; PCP Family Medicine Geriatric Medicine; Visit Provider Family Medicine Geriatric Medicine
DX: R53.83 Other fatigue (principal); E55.9 Vitamin D deficiency, unspecified
CPT/HCPCS: 36415; 80053; 82306; 84443; 85025

== ENCOUNTER → 2019-01-21 14:49 | Outpatient (CLI) | payer MEDICARE, SELFPAY | PROVIDERS: Family Provider Family Medicine Geriatric Medicine; PCP Family Medicine Geriatric Medicine; Referring Provider Family Medicine Geriatric Medicine; Visit Provider Family Medicine Geriatric Medicine | DX: R68.83 Chills (without fever) (principal) | CPT/HCPCS: 87633 ==

== ENCOUNTER 2019-02-08 09:21 | Day surgery (SDC) | payer MEDICARE, SELFPAY ==
[2019-02-08 09:39] VITALS: BP 128/51; PULSE 80; RESP 16; TEMP 36.8; O2SAT 96; BMI 46.3
[2019-02-08] MEDS: Bupivacaine 0.25% 30 ML Vial (10:30)
[2019-02-08] MEDS: MethylPREDNISolone Acetate 80 MG/ML Vial (10:30)
[2019-02-08 10:40] VITALS: BP 126/59; BP 128/51; PULSE 72; RESP 16; TEMP 36.7; O2SAT 100
--- NOTE | 2019-02-08 10:40 | RAD_ITS ---
STUDY: RIGHT KNEE NEURAL INJECTION WITH STEROID REASON FOR EXAM: Female, 73 years old. Pain TECHNIQUE: 5 intraoperative fluoroscopy view(s) of the knee, with total fluoroscopy time of 14.3 seconds. COMPARISON: None. FINDINGS: Intraoperative fluoroscopic images utilized as image guidance during right knee neural injection with steroid. Please refer to the procedure report regarding details of the procedure. RAD/Fluoro Guided Needle Placement IMPRESSION: As above. Electronically Signed: Giovanny Arzate MD at 15:16 EDT Tel [phone], Service support ,
[2019-02-08 10:45] VITALS: BP 120/44; BP 128/51; PULSE 71; RESP 16; O2SAT 99
[2019-02-08 10:50] VITALS: BP 119/73; BP 128/51; PULSE 70; RESP 16; O2SAT 100
[2019-02-08 10:55] VITALS: BP 120/52; BP 128/51; PULSE 70; RESP 16; TEMP 37.1; O2SAT 99
[2019-02-08 11:07] VITALS: BP 128/51
--- NOTE | 2019-02-08 18:07 | PCM.OPRPT ---
Problem List (1) Unilateral primary osteoarthritis, right knee Status: Chronic (2) Chronic pain following surgery or procedure Status: Chronic Report of Operation Date of Procedure: 02/08/19 Description of Surgical Findings:: PROCEDURE: Right knee superior medial/superior lateral/inferior medial genicular nerve steroid injection under fluoroscopic guidance PREOPERATIVE DIAGNOSIS: Osteoarthritis of the right knee, chronic postoperative knee pain POSTOPERATIVE DIAGNOSIS: Osteoarthritis of the right knee, chronic postoperative knee pain ANESTHESIA: MAC COMPLICATIONS: None BLOOD LOSS: Minimal PROCEDURE IN DETAIL: History and physical today was reviewed. Risks and benefits of the procedure were explained. The patient understood, agreed to our procedure, and informed consent was obtained. IV inserted per routine protocol. The patient was taken to the operating room, placed in a supine position the right hip area was prepped and draped in a sterile fashion using iodine x3 nephroscopy guidance AP view of the right knee joint was visualized the skin and subcutaneous tissue were anesthetized with approximately 5 cc of 1% lidocaine using a 25-gauge regular needle at the facility of the superior medial superior lateral inferior medial genicular nerves under direct visualization fluoroscopy on AP view using a 22-gauge 3-1/2 inch spinal needle starting on the right superior medial ending on the right inferior medial passing through the right superior lateral the needle passed through the skin the tip of the needle was maneuvered and directed towards the diaphyseal junction of each corresponding level once the needle was at the vicinity of each corresponding nerve after negative aspiration for blood a total of 12 cc of preservative-free 0.25% Marcaine with 80 mg of Depo-Medrol were injected in divided doses between those 3 levels the needle was then removed intact. The patient experienced no signs or symptoms intravascular injection. The patient experienced no paraesthesia. The procedure was completed without any apparent difficult, any complication. The patient appeared to tolerate well. ASSESSMENT AND PLAN: This is a 73-year-old female with osteoarthritis of the right knee and chronic postoperative knee pain status post right knee superior medial/superior lateral/inferior medial genicular nerve steroid injection under fluoroscopic guidance. The patient will continue her current medications. The patient will follow in approximately 2 weeks for reevaluation.
== END 2019-02-08 11:22 | disposition home or self-care (01) ==
LOC: SDC 09:22 → AC 09:23
PROVIDERS: Family Provider Family Medicine Geriatric Medicine; PCP Family Medicine Geriatric Medicine; Referring Provider Anesthesiology Pain Medicine; Visit Provider Anesthesiology Pain Medicine
PROC: 3E0U3GC Introduction of Other Therapeutic Substance into Joints, Percutaneous Approach (ICD-10-PCS; CPT 20610; principal; 2019-02-08 10:35)
DX: M17.11 Unilateral primary osteoarthritis, right knee (principal); G89.28 Other chronic postprocedural pain; M47.817 Spondylosis without myelopathy or radiculopathy, lumbosacral region; M51.37 Other intervertebral disc degeneration, lumbosacral region; M54.17 Radiculopathy, lumbosacral region; M46.96 Unspecified inflammatory spondylopathy, lumbar region; Z79.891 Long term (current) use of opiate analgesic; Z98.84 Bariatric surgery status; Z96.653 Presence of artificial knee joint, bilateral
CPT/HCPCS: 20610; 76000; 77002; J7120

== ENCOUNTER → 2019-02-09 14:23 | Outpatient (CLI) | payer MEDICARE, SELFPAY ==
[2019-02-08 09:39] VITALS: BMI 46.3
--- NOTE | 2019-02-09 14:25 | BI_ITS ---
MAMMOGRAPHY - BILATERAL SCREENING 3-D TOMOSYNTHESIS REASON FOR EXAM: Female, 73 years old. Bilateral Screening 3-D tomosynthesis PERTINENT HISTORY: No significant family history. TECHNIQUE: 2-D mammograms and 3-D Tomosynthesis of the breast (s) were performed. CAD was performed. COMPARISON: 10/08/2016, 12/29/2015, 05/09/2015, 05/04/2014. FINDINGS: The breast composition is composed of scattered fibroglandular density. Scattered benign calcifications are seen. No dense spiculated masses or suspicious microcalcifications are identified. No architectural distortion is identified. There is no skin thickening or retraction. There has been no significant change since the prior study. BI/Bilat Brst Screen Laurent Add-On IMPRESSION: No mammographic signs of malignancy. Routine yearly mammograms recommended. ASSESSMENT CATEGORY: BIRADS Category 2: Benign. A letter regarding these results will be sent to the patient by the facility within 30 days. FOLLOW UP RECOMMENDATION: Yearly follow up mammogram recommended. (A) Approximately 10% of breast cancers are not detected by mammography. A normal mammogram should not delay biopsy of a clinically suspicious abnormality. Electronically Signed: Giovanny Arzate MD at 15:34 EDT Tel [phone], Service support ,
== END ==
PROVIDERS: Family Provider Family Medicine Geriatric Medicine; PCP Family Medicine Geriatric Medicine; Referring Provider Family Medicine Geriatric Medicine; Visit Provider Family Medicine Geriatric Medicine
DX: Z12.31 Encounter for screening mammogram for malignant neoplasm of breast (principal)
CPT/HCPCS: 77063; 77067

== ENCOUNTER 2019-02-21 09:33 | Observation (INO) | payer MEDICARE, SELFPAY ==
[2019-02-21] VITALS (10 sets, daily range): BP systolic 104–131; BP diastolic 53–73; PULSE 80–110; RESP 17–20; TEMP 36.4–39.2; O2SAT 93–97; BMI 48.0; BMI 46.9
--- NOTE | 2019-02-21 10:00 | EKG12_ITS ---
Test Reason : WEAKNESS Blood Pressure : / mmHG Vent. Rate : 096 BPM Atrial Rate : 096 BPM P-R Int : 160 ms QRS Dur : 090 ms QT Int : 356 ms P-R-T Axes : 048 001 038 degrees QTc Int : 449 ms Normal sinus rhythm Normal ECG Confirmed by PABLO GUNTER, JAYE ([id number]), editor & co founder LILA KELLEY ([id number]) on 02/23/2019 11:31:36 AM Referred By: Fannie Osorio Confirmed By:JAYE SAHH MD
--- NOTE | 2019-02-21 10:00 | CT_ITS ---
STUDY: CT BRAIN WITHOUT CONTRAST REASON FOR EXAM: Female, 73 years old. Fall injury. RADIATION DOSAGE (If Supplied By Facility): CTDIvol = ( 44.99 ) mGy, DLP = ( 897.35 ) mGycm TECHNIQUE: Transaxial CT imaging of the brain was performed without administration of intravenous contrast material. Coronal and sagittal reconstructions were performed. Individualized dose optimization techniques were used for this CT. COMPARISON: 11/17/2018. FINDINGS: Normal soft tissue structures. Normal calvarium. Calcific density in the right cerebral peduncle and smaller calcific density in the right retrolenticular white matter corresponding to the known cavernomas. The cavernoma cavernoma in the medial aspect of the right cerebellar white matter is not calcified and not visible on CT. Mild cerebral atrophy accounting for the dilatation of the third and lateral ventricles. Normal cerebral aqueduct and fourth ventricle. Periventricular white matter hypodensities, confluent and greater in the forceps major on chronic white matter ischemic changes. They are unchanged. Normal basal ganglia and thalami. Normal james and medulla. Normal cerebellum. There is no intracranial hemorrhage. There are no findings of an acute ischemic infarction. Normal visualized paranasal sinuses. CT/Brain/Head without Contrast IMPRESSION: 1. 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 This is not intracranial bleeding. The sagittal small calcified cavernoma in the right retrolenticular white matter is more obvious on the previous MRI of the brain gradient echo sequence. This is unchanged. The benign cavernoma in the medial aspect of the right cerebellar white matter is only visible on the MRI gradient echo sequence 11/17/2018. 2. No CT evidence of intracranial bleeding, acute ischemic infarct or acute intracranial abnormality. 3. Chronic confluent white matter ischemic changes in both cerebral hemispheres. 4. No significant interval change when compared to 11/18/2018. Electronically Signed: Jhonatan Horton MD at 11:26 EDT , Service support ,
--- NOTE | 2019-02-21 10:01 | CT_ITS ---
STUDY: CT CERVICAL SPINE WITHOUT CONTRAST REASON FOR EXAM: Female, 73 years old. Fall. RADIATION DOSAGE (If Supplied By Facility): CTDIvol = ( 26.86 ) mGy, DLP = ( 649.17 ) mGycm TECHNIQUE: High resolution transaxial imaging was performed without contrast material. Sagittal and coronal images were reconstructed. Individualized dose optimization techniques were used for this CT. COMPARISON: None FINDINGS: Normal craniovertebral junction. Normal anterior atlantoaxial articulation. Normal odontoid process. Normal cervical lordosis. Normal vertebral bodies and posterior osseous elements. C2-3: Normal endplates. Normal disc height and morphology. Normal central canal and intervertebral neuroforamina. C3-4: Normal endplates. Normal disc height and morphology. Normal central canal and intervertebral neuroforamina. C4-5: Normal endplates. Normal disc height and morphology. Normal central canal and intervertebral neuroforamina. C5-6: Normal endplates. Normal disc height and morphology. Normal central canal and intervertebral neuroforamina. C6-7: Normal endplates. Normal disc height and morphology. Normal central canal and intervertebral neuroforamina. C7-T1: Normal endplates. Normal disc height and morphology. Normal central canal and intervertebral neuroforamina. Normal visualized soft tissue structures. CT/Spine Cervical without Contras IMPRESSION: Multilevel areas of facet arthropathy but no evidence of acute fracture or dislocation. Electronically Signed: Harvey Menon DO at 11:56 EDT , Service support ,
--- NOTE | 2019-02-21 10:01 | RAD_ITS ---
STUDY: X-RAY - LUMBAR SPINE REASON FOR EXAM: Female, 73 years old. Fall. TECHNIQUE: 3 view(s) of the lumbar spine were obtained. COMPARISON: None FINDINGS: Normal lumbar lordosis. There is no substantial scoliosis. There is a normal alignment of the vertebrae. There is diffuse demineralization with multi-level endplate spondylosis. Normal disc space heights. Multilevel facet arthropathy is present. The soft tissue structures are unremarkable. IVC filter is in place. RAD/Lumbar Spine 2 or 3 Views IMPRESSION: Diffuse demineralization with no evidence of definitive compression deformity. Electronically Signed: Harvey Menon DO at 11:06 EDT , Service support ,
--- NOTE | 2019-02-21 10:03 | ED.VISSUMM ---
- ER Visit Summary Date of Service: 02/21/19 Chief Complaint: Generalized weakness History of Present Illness: The patient is a 73 F history of prior diabetes no resolve the gastric bypass with bilateral lower extremity diabetic neuropathies, DVTs on Eliquis and prior kidney stones. Patient states she just felt generally weak this morning had trouble getting up when she got up she fell and laid on the ground about an hour before her family found her. He lives with her daughter. When they took her to the restroom she fell a second time. They are unsure if she had any head injury or not. She is on the blood thinner Eliquis. Complaining of neck pain and low back pain. Prior to the fall denies any nausea, vomiting or diarrhea. No dysuria. No fever. No abdominal or chest pain. Physical Examination: Older female no acute distress vital signs are stable afebrile. Pulse ox 95% on room air hypoxia. H EENT exam atraumatic nontender. Pupils are reactive light. C-spine nontender. Trachea midline. Lungs clear to auscultation bilaterally. Heart regular rhythm rate about 100 no murmur. Chest wall nontender. Abdomen soft nontender. Morbidly obese. No peritoneal signs. Pelvic girdle intact. Patient moving all 4 extremities. Neurovascular intact. No deformities. She has a bruise on the mid medial right lower leg but that is old. She is no bony deformity. Both upper and lower extremities neurovascular intact. Back she has lumbar spine tenderness. But there is no ecchymosis or bruising. Neurologically she is awake and alert with no focal motor deficits. She is answering questions and following commands. Test Results: CBC normal white count of 4. Hemoglobin 13. Chemistries normal. Normal creatinine gap. UA shows positive nitrates and 2+ bacteria and a culture was sent. No white cells no red cells no or symptoms. EKG normal sinus rhythm rate of 96 with no acute signs of MS or ischemia. LS spine film shows chronic changes but no acute process read by myself and the radiologist. [address] of the brain shows chronic calcified cavernoma was but no acute bleed. Cervical spine film pending formal read read by my review which shows no acute abnormality. Emergency Department Course and Treatment: Elderly female with generalized weakness and falls x2 at home. Treatment Plan: Multiple repeat exams no change. I will have all test results the patient and her daughter. 3 nurses were in the room they tried to stand and ambulate the patient she was unable. Discussed with the daughter and she understands she needs to be admitted for this. Disposition: Admission Impression: Acute generalized weakness Acute falls x2 Failure to thrive Anticoagulated on Eliquis This note was generated with Standardized Safety dictation software. It may contain incorrect words, spelling, and punctuation that were not noted in review of the chart prior to signing ED Disposition - Plan for ED Patient: Referrals: Jefferson Roman Chi, MD [Primary Care Provider] -
[2019-02-21 10:26] LABS: Mucous, Urine 0 SEEN /hpf (<or=2+); Red Blood Cells-Urine 0 SEEN /hpf (0-5); Squamous Epithelial Cells - UA 0 SEEN /hpf (5-10)
[2019-02-21 10:32] LABS: Color, Urine Yellow (Yellow); Glucose, Dipstick Normal (Normal); Ketone-Dipstick 5 mg/dl (Negative); Leukocyte Esterase-Dipstick 100 /ul (Negative); Nitrite-Dipstick Positive (Negative); Occult Blood-Urine Negative /ul (Negative); Protein-Dipstick 30 mg/dl (Negative); Urine Bilirubin Dipstick Negative (Negative); Urine Clarity Sl. Cloudy (Clear); Urine Urobilinogen Normal (Normal)
[2019-02-21 10:34] LABS: Anion Gap 5 (5-15); BUN 19 mg/dL (7-18); Calcium,Total 7.2 mg/dL (8.5-10.1); Chloride 114 mmol/L (98-107); EST Glomerular Filtration Rate 65 mL/min (>60); Est Glom Filt Rate - Afr Amer 79 mL/min (>60); Estimated Creatinine Clearance 50.84 ml/min; Glucose 118 mg/dL (74-106); Potassium 4.6 mmol/L (3.5-5.1); Sodium Level 142 mmol/L (136-145)
[2019-02-21 10:36] LABS: Absolute Lymphocyte Count 0.45 X10^3/uL (0.83-4.51); Absolute Neutrophil Count 2.8 X10^3/uL (2.0-7.7); Basophil# 0.03 X10^3/uL; Basophil% 0.7 % (0-1); Eosinophil# 0.09 X10^3/uL; Eosinophils% 2.2 % (0-5); Hematocrit 42.1 % (37-47); Hemoglobin 13.4 g/dL (12.0-15.0); Lymphocyte # 0.45 X10^3/ul (4.0); Lymphocyte % 11.2 % (19-41); Mean Corp Hgb Conc 31.8 g/dL (32-36); Mean Corpuscular Hgb 30.7 pg (27.0-32.0); Mean Corpuscular Volume 96.3 fL (81-99); Mean Platelet Vol. 10.3 fl (6.2-12.0); Monocyte# 0.65 X10^3/uL; Monocyte% 16.2 % (0-10); NRBC Flagged by Analyzer 0 % (0-5); Neutrophil # 2.78 X10^3/uL (2.7-7.7); Neutrophil % 69.2 % (47-70); POSITIVE DIFFERENTIAL YES; Platelet Count 202 K/mm3 (150-450); RBC Distribution Width CV 13.8 % (11.6-14.6); RBC Distribution Width SD 48.8 fl (35.1-43.9); Red Blood Count 4.37 M/mm3 (4.2-5.4)
[2019-02-21 10:38] LABS: Differential Indicated SCAN CRITERIA MET
[2019-02-21 10:41] LABS: Bacteria 2+ /hpf (None Seen); White Blood Cells 0-5 SEEN /hpf (0-5)
[2019-02-21] MEDS: Acetaminophen 500 MG Tablet 1000 MG PO (12:19)
[2019-02-21 13:07] LABS: AST(SGOT) 17 U/L (15-37); Alanine Aminotransfer ALT/SGPT 14 U/L (13-56); Albumin, Serum 2.7 g/dL (3.2-5.0); Alkaline Phosphatase 55 U/L (45-117); Bilirubin, Direct 0.17 mg/dL (0.00-0.30); Globulin 3.7 g/dL (2.2-4.2); Magnesium 1.8 mg/dL (1.6-2.6); Protein, Total 6.4 g/dL (6.4-8.2)
[2019-02-21 13:14] LABS: Hemoglobin A1c 4.9 % (4.2-6.3)
[2019-02-21 13:40] LABS: Phosphorus 1.4 mg/dL (2.5-4.9)
--- NOTE | 2019-02-21 14:13 | PCM.HP.STD ---
Problem List (1) Morbid obesity with BMI of 45.0-49.9, adult Status: Chronic (2) ROXIE (obstructive sleep apnea) Status: Chronic (3) DM II (diabetes mellitus, type II), controlled Status: Chronic Comment: states this was cured with the gastric bypass surgery (4) Cellulitis of right lower extremity Status: Suspected (5) UTI (urinary tract infection) Status: Suspected (6) Weakness Status: Acute (7) Unilateral primary osteoarthritis, right knee Status: Chronic (8) Chronic pain following surgery or procedure Status: Chronic (9) Segmental and somatic dysfunction of pelvic region Status: Chronic (10) Facet arthropathy, lumbar Status: Chronic (11) Segmental and somatic dysfunction of thoracic region Status: Chronic (12) Segmental and somatic dysfunction of lumbar region Status: Chronic (13) History of DVT (deep vein thrombosis) Status: Chronic Comment: recurrent (14) History of gastric bypass Status: Chronic (15) Shortness of breath on exertion Status: Chronic (16) Chronic anticoagulation Status: Chronic Comment: Eliquis (17) Hypophosphatemia Status: Acute (18) Diabetic neuropathy associated with type 2 diabetes mellitus Status: Chronic History of Present Illness Date of Admission: 02/21/19 Chief Complaint: weakness The patient is a 73 year old F with a PMH of HTN, DM II(resolved after gastric bypass per pt), morbid obesity, ROXIE ( cured with Gastric bypass surgery per pt), osteoarthritis, chronic pain syndrome, back pain, history of recurrent DVTs, chronic anticoagulation with Eliquis, history of gastric bypass surgery and diabetic peripheral polyneuropathy who fell attempting to get out of bed this AM and then fell again later. She c/o increased weakness since 02/20. Her dtr tells me that she wasn't right on 02/20 and that she was somewhat confused in the ED. Has had frewquent UTI's in the past but, denies dysuria, increased frequency and hesitancy. She denies cough, fever, shaking chills, sweats. She also denies nausea/vomiting/abdominal pain/diarrhea. She is on no new medications recently. Vital signs at presentation to the emergency department were temperature 99.3, heart rate 110, respiratory rate 19, blood pressure 131/61 she was 95% saturated on room air. White blood cell count was 4.0 with an unremarkable differential. Hemoglobin was 13.4 with normochromic normocytic indices and platelets were within normal limits. BMP was remarkable for a BUN of 19 with a creatinine of 0.9. Random blood sugar was 118 and the hemoglobin A1c was 4.9. Phosphorus was low at 1.4 and the magnesium was normal at 1.8. LFTs were unremarkable. The UA showed 0-5 WBCs per high-power field with 2+ bacteria and was positive for nitrite. Urine culture was sent. 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 Noncontrasted CT brain had no acute abnormalities. Cervical spine CT showed facet arthropathy at multiple levels with no fractures or dislocations. The lumbar spine x-ray showed no acute fractures or dislocations. She is unable to walk and is being admitted to the hospital for observation, PT and OT consults. Started on Rocephin for possible UTI. May need SNF if unable to walk....she lives with her dtr and does not have 24 hour supervision. Had a recent colonoscopy by Dr. Angulo which was normal. Recent MMG was normal. She has had a hyster for DUB. Past Medical History Past Medical History (Chronic Problems): Chronic Problems (Last Reviewed 02/21/19 @ 14:21 by Fannie Osorio DO) Unilateral primary osteoarthritis, right knee (Chronic) Chronic pain following surgery or procedure (Chronic) Morbid obesity with BMI of 45.0-49.9, adult (Chronic) ROXIE (obstructive sleep apnea) (Chronic) says she got off CPAP_ when she had gastric bypass surgery ......wieghed 248 after bypass and was up to 312 recently but, has been losing weight, unintentional. 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 (Chronic) Shortness of breath on exertion (Chronic) Medical History: Medical History (Last Reviewed 02/21/19 @ 14:21 by Fannie Osorio DO) Arthritis M19.90 Bilateral headaches R51 Carpal tunnel syndrome G56.00 Cataracts, both eyes H26.9 Closed left arm fracture S42.302A Diabetes E11.9 FHx: cholecystectomy Z84.89 Heart disease I51.9 History of gallstones Z87.19 History of hysterectomy Z90.710 Neuropathy G62.9 Osteoarthritis M19.90 Polycystic ovaries E28.2 Hypertension I10 Allergies ampicillin [From Unasyn] Allergy (Severe, Verified 02/21/19 09:36) Other Blisters on tongue /throat difficulty breathing sore tongue/throat warfarin sodium [From Coumadin] Allergy (Severe, Verified 02/21/19 09:36) Low red blood cells Home Medications: Ambulatory Orders Medication Instructions Recorded Cholecalciferol (VIT D3) [Vitamin 1,000 unit PO DAILY 12/29/15 D3] Denosumab [Prolia] 60 mg SQ Q6M 12/29/15 Duloxetine Hcl [Cymbalta] 60 mg PO DAILY 12/29/15 Gabapentin [Neurontin] 300 mg PO TID 12/29/15 Acetaminophen [Tylenol Tablet] 500 mg PO Q6H PRN PRN 12/30/16 Apixaban [Eliquis] 5 mg PO BID #30 tab 08/29/17 Ascorbic Acid [Vitamin C] 500 mg PO BID 01/01/18 [place]am 80 mg PO TID 01/01/18 Omeprazole 20 mg PO BID 01/01/18 diclofenac 1 % topical gel 4 g TOPICAL .COMPLEX PRN #100 g 07/23/18 D-Mannose 1,500 mg PO DAILY 08/05/18 Divalproex Sodium [Depakote] 500 mg PO BID 08/05/18 L.acidoph,Paracasei, B.lactis 1 each PO DAILY 08/05/18 [Probiotic] Pravastatin [Pravachol] 40 mg PO DAILY 08/05/18 Solifenacin Succinate [Vesicare] 5 mg PO DAILY 08/05/18 Tranferfactor 1 cap PO BID 08/05/18 Surgical History: Surgical History (Last Reviewed 02/21/19 @ 14:49 by Fannie Osorio DO) History of carpal tunnel surgery Z98.890 Total knee replacement status Z96.659 Surgical History: cholecystectomy, gastric bypass, hysterectomy, tonsillectomy, - - Gastric bypass, surgery for left arm fracture Psychiatric History: No pertinent psych hx 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, dysfunctional uterine bld - s/p hysterectomy Smoking Status: Never smoker Tobacco Use: Non-smoker Alcohol: None Drugs: None - *Family History Paternal Family History: Family History (Last Reviewed 02/21/19 @ 14:50 by Fannie Osorio DO) Other Heart disease High cholesterol Hypertension Myocardial infarction History Items: Cancer - Colon cancer, Heart Disease, - Maternal Family History: Family History (Last Reviewed 02/21/19 @ 14:50 by Fannie Osorio DO) Other Heart disease High cholesterol Hypertension Myocardial infarction History Items: Heart Disease, Hypertension Review of Systems Constitutional: Reports: Weakness. Denies: Chills, Fever, Weight Change HEENT: Denies: Head Aches, Sinus Congestion, Sinus Drainage Cardiovascular: Denies: Chest Pain, Light Headedness, Palpitations Respiratory: Reports: Shortness of breath upon exertion. Denies: Cough, Shortness of breath at rest, Sputum production Gastrointestinal: Denies: Abdominal Pain, Diarrhea, Nausea, Vomiting Genitourinary: Denies: Dysuria, Frequency, Hesitancy Musculoskeletal: Reports: Back Pain - chronic, Neck Pain - since the fall this AM ...no radation of the pain into the arms. Denies: Joint Pain, Joint Tenderness Skin: Reports: - - large bruise on the distal R LE. Denies: Jaundice, Rash, Wounds Neurological: Denies: Numbness, Tingling, Focal weakness Psychiatric: Denies: Anxiety, Depression, Homicidal Ideations, Suicidal Ideations Endocrine: Reports: Change in Body Habitus - says she has lost weight, down from 312 lbs and is not trying to lose weight. Hematologic/ Lymphatic: Reports: Hx of blood clot. Denies: Easy Bruising, Easy Bleeding VTE Information - Inpt Only VTE Present on Admission: No VTE Mechan Device Prophylaxis: SCD's, Knee High [employer] Hose VTE Pharm Prophylaxis ordered?: No Reason prophylaxis not ordered:: Treatment Not Indicated - she is on Apixaban Patient Problems: Active and Suspected Problems (Last Reviewed 02/21/19 @ 14:21 by Fannie Osorio DO) Cellulitis of right lower extremity (Suspected) UTI (urinary tract infection) (Suspected) Hypophosphatemia (Acute) - Physical Exam General: Alert, Cooperative, - - oriented to person, after several minutes was able to come up with 2019. Told me it was January and she initially said she was in [facility] but then corrected to [facility]..this is unusual per her family HEENT: Atraumatic, PERRLA, EOMI, Normocephalic Oral: Dry Mucosa Neck: Supple, No JVD, Negative Carotid Bruits, No Nodes, Trachea Midline Lungs: Clear to auscultation, Diminished Cardiovascular: Regular rate, Regular Rhythm, Normal S1, Normal S2, No murmurs, No rub noted, No Gallop Abdomen: Bowel Sounds Present, Soft, Non Tender, Non-Distended, Obese Extremities: No clubbing, No cyanosis, No edema, Peripheral Pulses Normal Skin: No rashes, - - she has a large bruis on the distal RLE with erythema and increased warmth distal to the bruis. No openings in the skin and no purulent DC Neurological: Cranial nerves II-XII grossly intact, Neuro grossly intact Psych/Mental Status: Normal Affect, Appropriate Vital Signs Temp Pulse Resp BP Pulse Ox 98.8 F 80 18 107/61 97 02/21/19 12:46 02/21/19 13:01 02/21/19 12:46 02/21/19 12:46 02/21/19 13:01 Oxygen Delivery Method Room Air Weight: 281 lb 8.485 oz Body Mass Index (BMI) 46.9 Laboratory Tests Past 24 Hrs 02/21/19 02/21/19 02/21/19 10:10 10:10 10:10 WBC 4.0 L RBC 4.37 Hgb 13.4 Hct 42.1 MCV 96.3 MCH 30.7 MCHC 31.8 L RDW Std Deviation 48.8 H RDW Coeff of Chani 13.8 Plt Count 202 MPV 10.3 Immature Gran % (Auto) 0.500 Neut % (Auto) 69.2 Lymph % (Auto) 11.2 L [place] % (Auto) 16.2 H Eos % (Auto) 2.2 Baso % (Auto) 0.7 Absolute Neuts (auto) 2.8 Absolute Lymphs (auto) 0.45 L Nucleated RBC % 0 Diff Path Review October Sodium 142 Potassium 4.6 Chloride 114 H Carbon Dioxide 23.0 Anion Gap 5 BUN 19 H Creatinine 0.90 Estim Creat Clear Calc 50.84 Est GFR (MDRD) Af Amer 79 Est GFR (MDRD) Non-Af 65 BUN/Creatinine Ratio 21.0 H Glucose 118 H Hemoglobin A1c Calcium 7.2 L Phosphorus Magnesium 1.8 Total Bilirubin 0.40 Direct Bilirubin 0.17 AST 17 ALT 14 Alkaline Phosphatase 55 Total Protein 6.4 Albumin 2.7 L Globulin 3.7 Urine Color Urine Clarity Urine pH Ur Specific [place] Urine Protein Urine Glucose (UA) Urine Ketones Urine Occult Blood Urine Nitrite Urine Bilirubin Urine Urobilinogen Ur Leukocyte Esterase Urine RBC Urine WBC Ur Squamous Epith Cells Urine Bacteria Urine Mucus 02/21/19 02/21/19 02/21/19 10:10 10:10 10:20 WBC RBC Hgb Hct MCV MCH MCHC RDW Std Deviation RDW Coeff of Chani Plt Count MPV Immature Gran % (Auto) Neut % (Auto) Lymph % (Auto) [place] % (Auto) Eos % (Auto) Baso % (Auto) Absolute Neuts (auto) Absolute Lymphs (auto) Nucleated RBC % Diff Path Review Sodium Potassium Chloride Carbon Dioxide Anion Gap BUN Creatinine Estim Creat Clear Calc Est GFR (MDRD) Af Amer Est GFR (MDRD) Non-Af BUN/Creatinine Ratio Glucose Hemoglobin A1c 4.9 Calcium Phosphorus 1.4 L Magnesium Total Bilirubin Direct Bilirubin AST ALT Alkaline Phosphatase Total Protein Albumin Globulin Urine Color Yellow Urine Clarity Sl. Cloudy Urine pH 6.0 Ur Specific [place] 1.020 Urine Protein 30 H Urine Glucose (UA) Normal Urine Ketones 5 H Urine Occult Blood Negative Urine Nitrite Positive H Urine Bilirubin Negative Urine Urobilinogen Normal Ur Leukocyte Esterase 100 H Urine RBC 0 SEEN Urine WBC 0-5 SEEN Ur Squamous Epith Cells 0 SEEN Urine Bacteria 2+ Urine Mucus 0 SEEN Assessment/Plan All Active Problems (Last Reviewed 02/21/19 @ 14:21 by Fannie Osorio DO) Hypophosphatemia (Acute) Weakness (Acute) Abdominal pain (Resolved) Impressions 1. fall X 2 due to generalized weakness of uncertain etiology. Possible UTI, possible cellulitis of the RLE. IV fluids ordered. Serial CE's. Started on Rocephin. Had VRE a few years ago in the urine. 2. dehydration - IV hydration ordered. 3. Suspected sleep disordered breathing.....no longer wear BIPAP since the gastric bypass surgery. I trending pulse ox ordered. 4. DM II - diet controlled since gastric bypass surgery. 5. morbid obesity 6. diabetic peripheral polyneuropathy 7. chronic back pain 8. cervical facet arthropathy at multiple levels 9. OA 10. History of recurrent DVTs on chronic anticoagulation with apixaban 11. Hypophosphatemia-supplementation ordered. Recheck lab in the a.m. Code Visit OBSV E&M: 36087 Initial observation care L3
[2019-02-21] MEDS: Ceftriaxone 1 GM/50 ML BAG IV (14:19)
[2019-02-21] MEDS: Gabapentin 300 MG Capsule PO ×2 (14:19→22:53)
[2019-02-21] MEDS: Divalproex Sodium 250 MG Tablet 500 MG PO ×2 (14:20→22:53)
[2019-02-21] MEDS: APIXABAN 5 MG TABLET PO ×2 (14:21→22:53)
[2019-02-21] MEDS: DULoxetine Hcl 60 MG Capsule PO (14:21)
[2019-02-21] MEDS: 0.9% NaCl IVPB Med Flush (250 mL) 15 ML IV (16:21)
[2019-02-21] MEDS: 0.9% NaCl Peripheral Flush Adult/Peds IV (16:22)
[2019-02-21] MEDS: 0.9% Normal Saline 1,000 ML 100 ML IV (17:23)
[2019-02-21] MEDS: Acetaminophen 325 MG Tablet 500 MG PO (22:55)
[2019-02-22] VITALS (8 sets, daily range): BP systolic 113–136; BP diastolic 56–67; PULSE 78–96; RESP 16–20; TEMP 36.6–37.9; O2SAT 94–98
[2019-02-22] MEDS: Acetaminophen 325 MG Tablet 500 MG PO (05:02)
[2019-02-22] MEDS: Gabapentin 300 MG Capsule PO ×3 (06:24→20:56)
[2019-02-22 06:49] LABS: Absolute Neutrophil Count 1.3 X10^3/uL (2.0-7.7); Basophil# 0.03 X10^3/uL; Basophil% 1.1 % (0-1); Eosinophil# 0.09 X10^3/uL; Eosinophils% 3.2 % (0-5); Hematocrit 35.5 % (37-47); Hemoglobin 11.3 g/dL (12.0-15.0); Lymphocyte % 25.3 % (19-41); Mean Corp Hgb Conc 31.8 g/dL (32-36); Mean Corpuscular Hgb 30.2 pg (27.0-32.0); Mean Corpuscular Volume 94.9 fL (81-99); Mean Platelet Vol. 9.9 fl (6.2-12.0); Monocyte# 0.63 X10^3/uL; Monocyte% 22.7 % (0-10); NRBC Flagged by Analyzer 0 % (0-5); POSITIVE MORPHOLOGY YES; Platelet Count 149 K/mm3 (150-450); RBC Distribution Width CV 13.9 % (11.6-14.6); RBC Distribution Width SD 48.6 fl (35.1-43.9); Red Blood Count 3.74 M/mm3 (4.2-5.4); White Blood Count 2.8 K/mm3 (4.4-11.0)
[2019-02-22 07:10] LABS: Differential Indicated SCAN CRITERIA MET
[2019-02-22 07:23] LABS: Anion Gap 6 (5-15); BUN 15 mg/dL (7-18); Chloride 117 mmol/L (98-107); Creatinine, Serum 0.56 mg/dL (0.55-1.02); EST Glomerular Filtration Rate 114 mL/min (>60); Est Glom Filt Rate - Afr Amer 138 mL/min (>60); Estimated Creatinine Clearance 43.91 ml/min; Glucose 78 mg/dL (74-106); Phosphorus 2.3 mg/dL (2.5-4.9); Potassium 4.3 mmol/L (3.5-5.1); Sodium Level 144 mmol/L (136-145)
[2019-02-22] MEDS: Tolterodine Tartrate 2 MG CAP.SA PO (08:38)
[2019-02-22] MEDS: Divalproex Sodium 250 MG Tablet 500 MG PO ×2 (08:38→20:56)
[2019-02-22] MEDS: Pantoprazole Sodium 20 MG Tablet PO ×2 (08:38→20:56)
[2019-02-22] MEDS: DULoxetine Hcl 60 MG Capsule PO (08:39)
[2019-02-22] MEDS: APIXABAN 5 MG TABLET PO ×2 (08:39→20:56)
[2019-02-22] MEDS: Ceftriaxone 1 GM/50 ML BAG IV (08:47)
[2019-02-22] MEDS: 0.9% Normal Saline 1,000 ML 100 ML IV (10:53)
[2019-02-22 11:26] LABS: Magnesium 1.8 mg/dL (1.6-2.6)
[2019-02-22] MEDS: Lidocaine 5% Patch 1 PATCH TOPICAL (14:26)
[2019-02-22] MEDS: Na Biphos/Potassium Phosphate PACKET 1 PACKET PO ×3 (14:27→20:56)
[2019-02-22] MEDS: Acetaminophen 500 MG Tablet 1000 MG PO ×2 (14:32→20:55)
--- NOTE | 2019-02-22 14:45 | PN_ITS ---
Patient Problems: Active and Suspected Problems (Last Reviewed 02/21/19 @ 14:21 by Fannie Osorio DO) Cellulitis of right lower extremity (Suspected) UTI (urinary tract infection) (Suspected) Hypophosphatemia (Acute) Subjective: Patient was seen and examined. Complains of right-sided chest wall pain sustained when she fell. She feels much improved but still very weak. She lives with her daughter on the second floor. Vitals/I&O's: Vital Signs Temp Pulse Resp BP Pulse Ox 98.9 F 91 16 122/65 H 98 02/22/19 12:22 02/22/19 12:22 02/22/19 12:22 02/22/19 12:22 02/22/19 12:22 Oxygen Delivery Method Room Air Weight: 127.7 kg Body Mass Index (BMI) 46.9 Intake and Output for Last 24 Hours 02/20/19 02/21/19 02/22/19 23:59 23:59 23:59 Intake Total 372.42 / 772.42 2755.0033 / 2755.0033 Output Total 900 / 900 Balance 372.42 / 572.42 1855.0033 / 1855.0033 General: Alert, Oriented x3, Cooperative, No apparent distress, - - morbidly obese HEENT: Atraumatic, PERRLA, EOMI, Normocephalic Oral: Moist Mucosa Neck: Supple Lungs: Clear to auscultation, Normal air movement Cardiovascular: Regular rate, Regular Rhythm, Normal S1, Normal S2, No murmurs Abdomen: Bowel Sounds Present, Soft, Non Tender, Non-Distended, No Hepato- splenomegaly Extremities: No edema Skin: No rashes, No breakdown Musculoskeletal: Tenderness - over the right lower ribs Lymphatic: No Cervical, Supraclavicular, or Inguinal Adenopathy Neurological: Cranial nerves II-XII grossly intact Psych/Mental Status: Normal Affect, Appropriate Microbiology Past 72 Hours 02/21/19 10:20 Urine, Clean Catch Urine Culture - Preliminary Presumptive E. coli Laboratory Results 02/21/19 17:40: Troponin I < 0.015 02/21/19 21:30: Troponin I < 0.015 02/21/19 23:45: Troponin I < 0.015 02/22/19 06:05: WBC 2.8 L, RBC 3.74 L, Hgb 11.3 L, Hct 35.5 L, MCV 94.9, MCH 30.2, MCHC 31.8 L, RDW Std Deviation 48.6 H, RDW Coeff of Chani 13.9, Plt Count 149 L, MPV 9.9, Immature Gran % (Auto) 0.700, Neut % (Auto) 47.0, Lymph % (Auto) 25.3, [place] % (Auto) 22.7 H, Eos % (Auto) 3.2, Baso % (Auto) 1.1 H, Absolute Neuts (auto) 1.3 L, Absolute Lymphs (auto) 0.70 L, Nucleated RBC % 0 02/22/19 06:05: Sodium 144, Potassium 4.3, Chloride 117 H, Carbon Dioxide 21.0, Anion Gap 6, BUN 15, Creatinine 0.56, Estim Creat Clear Calc 43.91, Est GFR (MDRD) Af Amer 138, Est GFR (MDRD) Non-Af 114, BUN/Creatinine Ratio 27.0 H, Glucose 78, Calcium 7.0 L, Phosphorus 2.3 L 02/22/19 06:05: Magnesium 1.8 Current Medications Acetaminophen (Tylenol) 1,000 mg PO TID [facility] Last Admin: 02/22/19 14:32 Dose: 1,000 mg Documented by: Apixaban (Eliquis) 5 mg PO BID [facility] Last Admin: 02/22/19 08:39 Dose: 5 mg Documented by: Divalproex Sodium (Depakote) 500 mg PO BID [facility] Last Admin: 02/22/19 08:38 Dose: 500 mg Documented by: Duloxetine HCl (Cymbalta) 60 mg PO DAILY [facility] Last Admin: 02/22/19 08:39 Dose: 60 mg Documented by: Gabapentin (Neurontin) 300 mg PO TID [facility] Last Admin: 02/22/19 14:28 Dose: 300 mg Documented by: Ceftriaxone Sodium (Rocephin) 1 gm in 50 mls @ 100 mls/hr IV Q24 [facility] Last Infusion: 02/22/19 09:20 Dose: Infused Documented by: Sodium Chloride () 250 mls @ 15 mls/hr IV .[id number] PRN PRN Reason: SALINE FLUSH Last Infusion: 02/21/19 17:24 Dose: Infused Documented by: Magnesium Sulfate 2 gm/ Sodium (Chloride) 104 mls @ 52 mls/hr IV X1 ONE Stop: 02/22/19 15:29 Last Admin: 02/22/19 14:26 Dose: 52 mls/hr Documented by: Lidocaine (Lidoderm Patch) 1 patch TOPICAL DAILY [facility]; Protocol Last Admin: 02/22/19 14:26 Dose: 1 patch Documented by: Pantoprazole Sodium (Protonix) 20 mg PO BID [facility] Last Admin: 02/22/19 08:38 Dose: 20 mg Documented by: Potassium Phos/Sodium Phos (Neutra-Phos Packet) 1 packet PO 4X/DAY ELVA Stop: 02/23/19 10:01 Last Admin: 02/22/19 14:27 Dose: 1 packet Documented by: Pravastatin Sodium (Pravachol) 40 mg PO QHS [facility] Sodium Chloride () 10 - 40 ml IV UD PRN PRN Reason: SALINE FLUSH Last Admin: 02/21/19 16:22 Dose: 10 ml Documented by: Tolterodine Tartrate (Detrol La) 2 mg PO DAILY [facility] Last Admin: 02/22/19 08:38 Dose: 2 mg Documented by: Medical Necessity - Tobacco Use Smoking Status: Never smoker Tobacco Use: Non-smoker Assessment/Plan All Active Problems (Last Reviewed 02/21/19 @ 14:21 by Fannie Osorio DO) Hypophosphatemia (Acute) Weakness (Acute) Abdominal pain (Resolved) 1. Debility, recurrent falls, secondary to possible E. coli UTI Continue on IV ceftriaxone, PT and OT to evaluate and treat 2. E. coli UTI, on empiric IV ceftriaxone, day 2, continue same 3. Right-sided muscle/lower chest wall tenderness, secondary to fall, will continue Lidoderm patches 4. Type II DM, complicated by peripheral polyneuropathy 5. Morbid obesity, BMI 46.9, diet exercise is recommended 6. History of recurrent DVT, on chronic anticoagulation with apixaban 7. Electrolyte imbalances?hypomagnesemia, hypophosphatemia,replaced, recheck in a.m. 8. DVT PPx- On apixaban Code Visit Inpatient E&M: 53000 Subs Hosp L2
[2019-02-22] MEDS: Pravastatin 40 MG Tablet PO (20:56)
[2019-02-23 02:55] VITALS: BP 130/64; PULSE 70; RESP 16; TEMP 36.6; O2SAT 96
[2019-02-23 05:57] LABS: Absolute Lymphocyte Count 1.01 X10^3/uL (0.83-4.51); Absolute Neutrophil Count 1.2 X10^3/uL (2.0-7.7); Basophil# 0.02 X10^3/uL; Basophil% 0.7 % (0-1); Eosinophil# 0.15 X10^3/uL; Eosinophils% 5.1 % (0-5); Hematocrit 37.3 % (37-47); Hemoglobin 11.6 g/dL (12.0-15.0); Lymphocyte # 1.01 X10^3/ul (4.0); Lymphocyte % 34.4 % (19-41); Mean Corp Hgb Conc 31.1 g/dL (32-36); Mean Corpuscular Hgb 29.6 pg (27.0-32.0); Mean Corpuscular Volume 95.2 fL (81-99); Mean Platelet Vol. 9.7 fl (6.2-12.0); Monocyte# 0.54 X10^3/uL; Monocyte% 18.4 % (0-10); NRBC Flagged by Analyzer 0 % (0-5); Neutrophil # 1.17 X10^3/uL (2.7-7.7); Neutrophil % 39.7 % (47-70); POSITIVE MORPHOLOGY YES; Platelet Count 171 K/mm3 (150-450); RBC Distribution Width CV 13.9 % (11.6-14.6); RBC Distribution Width SD 48.5 fl (35.1-43.9); Red Blood Count 3.92 M/mm3 (4.2-5.4); White Blood Count 2.9 K/mm3 (4.4-11.0)
[2019-02-23 05:59] LABS: Differential Indicated SCAN CRITERIA MET
[2019-02-23 06:05] LABS: BUN 13 mg/dL (7-18); BUN/Creat Ratio 22.3 RATIO (10-20); Calcium,Total 7.4 mg/dL (8.5-10.1); Chloride 116 mmol/L (98-107); Creatinine, Serum 0.58 mg/dL (0.55-1.02); EST Glomerular Filtration Rate 108 mL/min (>60); Est Glom Filt Rate - Afr Amer 130 mL/min (>60); Estimated Creatinine Clearance 43.91 ml/min; Glucose 80 mg/dL (74-106); Phosphorus 2.2 mg/dL (2.5-4.9); Potassium 4.6 mmol/L (3.5-5.1); Sodium Level 144 mmol/L (136-145)
[2019-02-23] MEDS: Gabapentin 300 MG Capsule PO (06:14)
[2019-02-23] MEDS: Acetaminophen 500 MG Tablet 1000 MG PO (06:14)
[2019-02-23 06:48] VITALS: O2SAT 96
[2019-02-23 07:06] LABS: Differential Comment SCANNED
[2019-02-23 08:51] VITALS: BP 136/66; PULSE 83; RESP 16; TEMP 36.7; O2SAT 100
[2019-02-23] MEDS: DULoxetine Hcl 60 MG Capsule PO (09:17)
[2019-02-23] MEDS: Divalproex Sodium 250 MG Tablet 500 MG PO (09:17)
[2019-02-23] MEDS: APIXABAN 5 MG TABLET PO (09:17)
[2019-02-23] MEDS: Tolterodine Tartrate 2 MG CAP.SA PO (09:17)
[2019-02-23] MEDS: Lidocaine 5% Patch 1 PATCH TOPICAL (09:18)
[2019-02-23] MEDS: Na Biphos/Potassium Phosphate PACKET 1 PACKET PO (09:19)
[2019-02-23] MEDS: Pantoprazole Sodium 20 MG Tablet PO (09:19)
[2019-02-23] MEDS: Ceftriaxone 1 GM/50 ML BAG IV (09:20)
--- NOTE | 2019-02-23 09:42 | DCINST_ITS ---
- Discharge Diagnoses Current Active Problems: Current Active and Chronic Problems (Last Reviewed 02/21/19 @ 14:21 by Fannie Osorio DO) Morbid obesity with BMI of 45.0-49.9, adult (Chronic) ROXIE (obstructive sleep apnea) (Chronic) says she got off CPAP_ when she had gastric bypass surgery ......wieghed 248 after bypass and was up to 312 recently but, has been losing weight, unintentional. 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 Continue to remain active. You will be followe by the Home health team. Continue to keep yourself hydrated. You should see your primary care doctor withiin 2 weeks and for blood work. Allergies/Adverse Reactions: Allergies ampicillin [From Unasyn] Allergy (Severe, Verified 02/21/19 09:36) Other Blisters on tongue /throat difficulty breathing sore tongue/throat warfarin sodium [From Coumadin] Allergy (Severe, Verified 02/21/19 09:36) Low red blood cells Medications to take at Discharge Cholecalciferol (VIT D3) [Vitamin D3] 1,000 unit PO DAILY 12/29/15 Denosumab [Prolia] 60 mg SQ Q6M 12/29/15 Duloxetine Hcl [Cymbalta] 60 mg PO DAILY 12/29/15 Gabapentin [Neurontin] 300 mg PO TID 12/29/15 Acetaminophen [Tylenol Tablet] 500 mg PO Q6H PRN PRN 12/30/16 Apixaban [Eliquis] 5 mg PO BID #30 tab 08/29/17 Ascorbic Acid [Vitamin C] 500 mg PO BID 01/01/18 Methenam 80 mg PO TID 01/01/18 Omeprazole 20 mg PO BID 07/12/18 diclofenac 1 % topical gel 4 g TOPICAL .COMPLEX PRN #100 g 07/23/18 D-Mannose 1,500 mg PO DAILY 08/05/18 Divalproex Sodium [Depakote] 500 mg PO BID 08/05/18 L.acidoph,Paracasei, B.lactis [Probiotic] 1 each PO DAILY 08/05/18 Pravastatin [Pravachol] 40 mg PO DAILY 08/05/18 Solifenacin Succinate [Vesicare] 5 mg PO DAILY 08/05/18 Tranferfactor 1 cap PO BID 08/05/18 Primary Care Physician: Jefferson Roman Chi, MD [Primary Care Provider] - Please follow up with your Primary Care Physician in: within 2 weeks Test Results: Test results from this visit will be discussed in further detail at your follow- up appointment, if applicable. Proposed Discharge Date: 02/23/19
--- NOTE | 2019-02-23 09:45 | DS.PCM_ITS ---
Discharge Date and Diagnosis - Problem List Patient Problems: Active and Suspected Problems (Last Reviewed 02/21/19 @ 14:21 by Fannie Osorio DO) Cellulitis of right lower extremity (Suspected) UTI (urinary tract infection) (Suspected) Hypophosphatemia (Acute) Date of Admission: 02/21/19 Date of Discharge: 02/23/19 - Primary Discharge Diagnosis Active and Suspected Problems (Last Reviewed 02/21/19 @ 14:21 by Fannie Osorio DO) E. Coli UTI (urinary tract infection) Hypophosphatemia (Acute) Debility Right-sided lower chest musculoskeletal pain Hypomagnesemia Hypophosphatemia - Secondary Discharge Diagnosis Chronic Problems (Last Reviewed 02/21/19 @ 14:21 by Fannie Osorio DO) Unilateral primary osteoarthritis, right knee (Chronic) Chronic pain following surgery or procedure (Chronic) Morbid obesity with BMI of 45.0-49.9, adult (Chronic) ROXIE (obstructive sleep apnea) (Chronic) says she got off CPAP_ when she had gastric bypass surgery ......wieghed 248 after bypass and was up to 312 recently but, has been losing weight, unintentional. 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 This is not intracranial bleeding. The sagittal small calcified cavernoma in the right retrolenticular white matter is more obvious on the previous MRI of the brain gradient echo sequence. This is unchanged. The benign cavernoma in the medial aspect of the right cerebellar white matter is only visible on the MRI gradient echo sequence 11/17/2018. 2. No CT evidence of intracranial bleeding, acute ischemic infarct or acute intracranial abnormality. 3. Chronic confluent white matter ischemic changes in both cerebral hemispheres. 4. No significant interval change when compared to 11/18/2018. Electronically Signed: Jhonatan Horton MD at 11:26 EDT , Service support , Cervical Spine CT 02/21/19 10:01 IMPRESSION: Multilevel areas of facet arthropathy but no evidence of acute fracture or dislocation. Electronically Signed: Harvey Menon DO at 11:56 EDT , Service support , Lumbar Spine X-Ray 02/21/19 10:01 IMPRESSION: Diffuse demineralization with no evidence of definitive compression deformity. Electronically Signed: Harvey Menon DO at 11:06 EDT , Service support , None Operations: None Procedures: None Summary of Care Provided: The patient is a 73 year old F with PMHx of Type 2 DM, morbid obesity, history of gastric bypass, h/o recurrent DVT on chronic anticoagulation who was admitted with generalised weakness and falls. Patient had complained of increased weakness since 02/20/19. She lives with her daughter on the second floor and reportedly was trying to get out of bed when she says she slid out of bed and try to alert them by banging on the serrano. Eyes hitting her head or any syncopal episode. Her admitting work-up was suggestive of UTI. Patient was admitted to the [facility] floor and started on IV ceftriaxone. Her phosphorus was low at 1.4 as well as magnesium was 1.8. Her electrolytes were replaced. Patient continued to improve. She was seen by PT and OT. Home health was recommended. She was discharged on cefdinir to complete 7 days of antibiotics. Patient Problems: Active and Suspected Problems (Last Reviewed 02/21/19 @ 14:21 by Fannie Osorio DO) Cellulitis of right lower extremity (Suspected) UTI (urinary tract infection) (Suspected) Hypophosphatemia (Acute) Subjective: On the day of discharge, patient was seen and examined. Denied any new complaints. She felt much improved. Objective: Physical exam: General: Alert, Oriented x3, Cooperative, No apparent distress, - - morbidly obese HEENT: Atraumatic, PERRLA, EOMI, Normocephalic Oral: Moist Mucosa Neck: Supple Lungs: Clear to auscultation, Normal air movement Cardiovascular: Regular rate, Regular Rhythm, Normal S1, Normal S2, No murmurs Abdomen: Bowel Sounds Present, Soft, Non Tender, Non-Distended, No Hepato- splenomegaly Extremities: No edema Skin: No rashes, No breakdown Musculoskeletal: Tenderness - over the right lower ribs Lymphatic: No Cervical, Supraclavicular, or Inguinal Adenopathy Neurological: Cranial nerves II-XII grossly intact Psych/Mental Status: Normal Affect, Appropriate - Physical Exam Vital Signs Temp Pulse Resp BP Pulse Ox 98.0 F 83 16 136/66 H 100 02/23/19 08:51 02/23/19 08:51 02/23/19 08:51 02/23/19 08:51 02/23/19 08:51 Oxygen Delivery Method Room Air Weight: 127.7 kg Body Mass Index (BMI) 46.9 Intake and Output for Last 24 Hours 02/21/19 02/22/19 02/23/19 23:59 23:59 23:59 Intake Total 372.42 / 772.42 3914.0033 / 4314.0033 600 / 600 Output Total 1175 / 1475 1350 / 1350 Balance 372.42 / 572.42 2739.0033 / 2839.0033 -750 / -750 Microbiology Past 72 Hours 02/21/19 10:20 Urine Culture - Final Urine, Clean Catch Presumptive E. coli Laboratory Tests Past 24 Hrs 02/22/19 02/23/19 02/23/19 06:05 05:15 05:15 WBC 2.9 L RBC 3.92 L Hgb 11.6 L Hct 37.3 MCV 95.2 MCH 29.6 MCHC 31.1 L RDW Std Deviation 48.5 H RDW Coeff of Chani 13.9 Plt Count 171 MPV 9.7 Immature Gran % (Auto) 1.700 H Neut % (Auto) 39.7 L Lymph % (Auto) 34.4 [place] % (Auto) 18.4 H Eos % (Auto) 5.1 H Baso % (Auto) 0.7 Absolute Neuts (auto) 1.2 L Absolute Lymphs (auto) 1.01 Nucleated RBC % 0 Differential Comment SCANNED Sodium 144 Potassium 4.6 Chloride 116 H Carbon Dioxide 23.0 BUN 13 Creatinine 0.58 Estim Creat Clear Calc 43.91 Est GFR (MDRD) Af Amer 130 Est GFR (MDRD) Non-Af 108 BUN/Creatinine Ratio 22.3 H Glucose 80 Calcium 7.4 L Phosphorus 2.2 L Magnesium 1.8 Albumin 2.0 L 02/23/19 05:15 WBC RBC Hgb Hct MCV MCH MCHC RDW Std Deviation RDW Coeff of Chani Plt Count MPV Immature Gran % (Auto) Neut % (Auto) Lymph % (Auto) [place] % (Auto) Eos % (Auto) Baso % (Auto) Absolute Neuts (auto) Absolute Lymphs (auto) Nucleated RBC % Differential Comment Sodium Potassium Chloride Carbon Dioxide BUN Creatinine Estim Creat Clear Calc Est GFR (MDRD) Af Amer Est GFR (MDRD) Non-Af BUN/Creatinine Ratio Glucose Calcium Phosphorus Magnesium 2.0 Albumin Discharge Diet: Low fat/ Low Cholesterol, 2000 mg Sodium Diet, Carb Control Diet Discharge Activity: Return to Normal Activity Weight Bearing Status: Weight bearing as tolerated Home Medications: Medications to take at Discharge Cholecalciferol (VIT D3) [Vitamin D3] 1,000 unit PO DAILY 12/29/15 Denosumab [Prolia] 60 mg SQ Q6M 12/29/15 Duloxetine Hcl [Cymbalta] 60 mg PO DAILY 12/29/15 Gabapentin [Neurontin] 300 mg PO TID 12/29/15 Acetaminophen [Tylenol Tablet] 500 mg PO Q6H PRN PRN 12/30/16 Apixaban [Eliquis] 5 mg PO BID #30 tab 08/29/17 Ascorbic Acid [Vitamin C] 500 mg PO BID 01/01/18 Methenam 80 mg PO TID 01/01/18 Omeprazole 20 mg PO BID 01/01/18 diclofenac 1 % topical gel 4 g TOPICAL .COMPLEX PRN #100 g 07/23/18 D-Mannose 1,500 mg PO DAILY 08/05/18 Divalproex Sodium [Depakote] 500 mg PO BID 08/05/18 L.acidoph,Paracasei, B.lactis [Probiotic] 1 each PO DAILY 08/05/18 Pravastatin [Pravachol] 40 mg PO DAILY 08/05/18 Solifenacin Succinate [Vesicare] 5 mg PO DAILY 08/05/18 Tranferfactor 1 cap PO BID 08/05/18 Cefdinir [Omnicef [equiv]] 300 mg PO Q12H 5 Days #10 cap 02/23/19 Following Prescrptions Were Given to Patient: Cefdinir [Omnicef [equiv]] 300 mg PO Q12H 5 Days #10 cap Transmission Status: Received by [facility] #[id number] Primary Care Physician: Jefferson Roman Chi, MD [Primary Care Provider] - Please follow up with your Primary Care Physician in: within 2 weeks Disposition: Home with Home Health Minutes spent on discharge:: 40 Patient Condition:: Stable Medical Necessity - Tobacco Use Smoking Status: Never smoker Tobacco Use: Non-smoker Meaningful Use Info Meaningful Use Diagnoses (Choose all that apply): None applicable Code Visit Inpatient E&M: 67820 Disch Hosp
--- NOTE | 2019-02-23 10:55 | CASEMGMT ---
Intro role of CM to patient and WHITE form explained re: Observation status for treatment of Gen. Weakness, cellulitis. Explained hospitalization will be paid per? insurance policy for Outpatient billing?and condition will continue to be evaluated for Inpt necessity. Also let pt know that [facility] sends paper in the billing packet with their phone number if questions arise. Discussed Pharmacy section of [facility] form and self administered medication guideline.? Pt verbalizes understanding and does not have further questions. Form signed and placed in chart, copy to pt. CECILIO HERNÁNDEZ BSN CM
--- NOTE | 2019-02-23 11:15 | CASEMGMT ---
BETTY CROFT Face to Face with patient for initial transition planning/care coordination assessment. BETTY CROFT introduced self and role at [facility]. Patient lying in bed, alert and oriented. Patient willing to participate in assessment and is able to answer all questions appropriately. Care providers, pharmacy, and demographics verified. Patient wishes to discharge home, denies need for home health at this time. Patient states he has no further needs or concerns at this time. CM to follow for discharge planning needs that may arise. PCP: Abel Specialists: carolyn Frazier Preferred Pharmacy: [facility] Insurance: [employer] [facility] Prescription Benefit: yes Living Will/HPOA: yes, daughter Guera Bonds LNOK: daughter Living Arrangements: Patient lives with daughter in 2 story home with bed on 2nd floor. Patient able to ambulate stairs Transportation: Public transport through [facility] DME/HHC: Patient has Shower chair, raised toilet, cane, walker, wheelchair, grab bars at home. Patient has Passport Service with Brook Jackson as her CM. Aide services through [place] for 8 hours per week. Patient would like [facility] for nursing and therapy. Patient provided with list of [facility] companies in-network with her insurance. Patient first choice for [facility] is [facility]. BETTY CROFT sent referral and am awaiting call back for acceptance. Daughter states patient is to be admitted to [facility] on 03/23/19. Disposition Plan: Patient to discharge home with [facility], resumption of aide services, family support and follow-up plans in place. Maria E PACE, RN, CM
--- NOTE | 2019-02-23 11:15 | CASEMGMT ---
BETTY CROFT Face to Face with patient for initial transition planning/care coordination assessment. BETTY CROFT introduced self and role at [facility]. Patient sitting in chair, alert and oriented, daughter at bedside. Patient willing to participate in assessment and is able to answer all questions appropriately. Care providers, pharmacy, and demographics verified. Patient wishes to discharge home and is agreeable to HHC at discharge. Patient states he has no further needs or concerns at this time. CM to follow for discharge planning needs that may arise. PCP: Abel Specialists: carolyn Frazier Preferred Pharmacy: [facility] Insurance: [employer] [facility] Prescription Benefit: yes Living Will/HPOA: yes, daughter Guera Bonds LNOK: daughter Living Arrangements: Patient lives with daughter in 2 story home with bed on 2nd floor. Patient able to ambulate stairs Transportation: Public transport through [facility] DME/HHC: Patient has Shower chair, raised toilet, cane, walker, wheelchair, grab bars at home. Patient has Passport Service with Brook Jackson as her CM. Aide services through [place] for 8 hours per week. Patient would like [facility] for nursing and therapy. Patient provided with list of [facility] companies in-network with her insurance. Patient first choice for [facility] is [facility]. BETTY CROFT sent referral and am awaiting call back for acceptance. Daughter states patient is to be admitted to [facility] on 03/23/19. Disposition Plan: Patient to discharge home with [facility], resumption of aide services, family support and follow-up plans in place. Maria E PACE, RN, CM
[2019-02-23 12:35] LABS: Pathologist Review Reviewed
--- NOTE | 2019-02-23 13:59 | CASEMGMT ---
Social Work Note RUKHSANA updated that pt has PASSPORT CM Brook Schwarz. RUKHSANA placed a call to Brook at [facility] and left her a message informing her of pt's admission and discharge home with [facility] today. Brook Schwarz is at [facility] and updated this worker that she met with pt and pt doesn't need to discharge home with [facility] as pt is leaving for vacation Friday with her daughter. RUKHSANA updated BETTY Jensen of this. RUKHSANA faxed discharge paperwork to Brook Nicole at [facility]. Plan: Discharge home today Maria E Martinez FOOD SERVICES COORDINATOR, CLOTH DYEING RANGE TENDER
--- NOTE | 2019-02-23 14:05 | CASEMGMT ---
BETTY CROFT received call back from [facility] and they are able to accept the patinet. BETTY CROFT updated the patient and daughter regarding [facility] acceptance. Patient had no further concerns at this time.
== END 2019-02-23 14:17 | disposition home health service (06) ==
LOC: ED 10:09 → MS3 12:12
PROVIDERS: Admitting Provider Internal Medicine; Emergency Provider Emergency Medicine; Family Provider Family Medicine Geriatric Medicine; PCP Family Medicine Geriatric Medicine; Referring Provider Internal Medicine; Visit Provider Internal Medicine
DX: N39.0 Urinary tract infection, site not specified (principal); B96.20 Unspecified Escherichia coli [E. coli] as the cause of diseases classified elsewhere; E86.0 Dehydration; E83.39 Other disorders of phosphorus metabolism; E66.01 Morbid (severe) obesity due to excess calories; R62.7 Adult failure to thrive; G47.33 Obstructive sleep apnea (adult) (pediatric); M17.11 Unilateral primary osteoarthritis, right knee; M99.03 Segmental and somatic dysfunction of lumbar region; G89.29 Other chronic pain; M99.05 Segmental and somatic dysfunction of pelvic region; I10 Essential (primary) hypertension; I51.9 Heart disease, unspecified; M99.02 Segmental and somatic dysfunction of thoracic region; E11.42 Type 2 diabetes mellitus with diabetic polyneuropathy; Z86.718 Personal history of other venous thrombosis and embolism; Z79.01 Long term (current) use of anticoagulants; Z68.42 Body mass index [BMI] 45.0-49.9, adult; Z71.3 Dietary counseling and surveillance; Z79.899 Other long term (current) drug therapy; Z98.84 Bariatric surgery status
CPT/HCPCS: 36415; 70450; 72100; 72125; 80048; 80069; 80076; 81001; 83036; 83735; 84100; 84484; 85025; 87086; 87088; 87186; 93005; 94762; 96361; 96365; 96366; 97110; 97162; 97165; 97530; 97802; 99218; 99285; J7030; J7040; J7050; P9612; A4216; G0378

== ENCOUNTER → 2019-02-24 13:38 | Outpatient (CLI) | payer MEDICARE, SELFPAY ==
[2019-02-21 12:46] VITALS: BMI 46.9
[2019-02-24 17:24] LABS: Anion Gap 7 (5-15); BUN 12 mg/dL (7-18); BUN/Creat Ratio 15.5 RATIO (10-20); Calcium,Total 7.9 mg/dL (8.5-10.1); Chloride 112 mmol/L (98-107); Creatinine, Serum 0.77 mg/dL (0.55-1.02); EST Glomerular Filtration Rate 78 mL/min (>60); Est Glom Filt Rate - Afr Amer 94 mL/min (>60); Glucose 99 mg/dL (74-106); Magnesium 1.8 mg/dL (1.6-2.6); Potassium 4.5 mmol/L (3.5-5.1); Sodium Level 141 mmol/L (136-145)
== END ==
PROVIDERS: Family Provider Family Medicine Geriatric Medicine; PCP Family Medicine Geriatric Medicine; Visit Provider Family Medicine Geriatric Medicine
DX: E83.39 Other disorders of phosphorus metabolism (principal); E83.49 Other disorders of magnesium metabolism; R53.83 Other fatigue
CPT/HCPCS: 36415; 80048; 83735; 84100

== ENCOUNTER 2019-03-18 01:14 | Inpatient (IN) | payer MEDICARE, SELFPAY ==
[2019-02-21 12:46] VITALS: BMI 46.9
[2019-03-18] VITALS (17 sets, daily range): BP systolic 89–147; BP diastolic 44–111; PULSE 61–109; RESP 16–37; TEMP 36.9–39.2; O2SAT 88–100; BMI 47.0; BMI 47.4
--- NOTE | 2019-03-18 01:29 | ED.DCSUM_ITS ---
History of Present Illness Chief Complaint: Complaint Informant: Patient Narrative: She stated she was diagnosed with urinary tract infection a few days ago. She is in assisted living. They were unable to get her levofloxacin antibiotic that was ordered. She developed a fever today. She has dysuria. She has frequent UTIs in the past per patient. She was diagnosed with urinary tract infection on admission at the beginning of this month with E. coli pansensitive. Denies any respiratory symptoms. Her only complaint right now is chills and dysuria. She stated she ate pretty well today. Current severity is moderate. She is on Eliquis for history of DVTs in the past. Denies any nausea or vomiting. Sent in by the [facility] tonight because she developed a fever. 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 (12) Segmental and somatic dysfunction of lumbar region Status: Chronic (13) Segmental and somatic dysfunction of pelvic region Status: Chronic (14) Segmental and somatic dysfunction of thoracic region Status: Chronic (15) Shortness of breath on exertion Status: Chronic (16) Unilateral primary osteoarthritis, right knee Status: Chronic (17) Cellulitis of right lower extremity Status: Suspected (18) UTI (urinary tract infection) Status: Suspected Past Medical History - Allergies and Home Meds Allergies/Adverse Reactions: Allergies ampicillin [From Unasyn] Allergy (Severe, Verified 02/21/19 09:36) Other Blisters on tongue /throat difficulty breathing sore tongue/throat warfarin sodium [From Coumadin] Allergy (Severe, Verified 02/21/19 09:36) Low red blood cells Primary Care Physician: Jefferson Roman Chi, MD [Primary Care Provider] - Prior records reviewed: Yes Past Medical History: - - See problem list Surgical History: cholecystectomy, gastric bypass, hysterectomy, tonsillectomy, - - Gastric bypass, surgery for left arm fracture Smoking Status: Never smoker Alcohol: None Drugs: None - Family History Paternal Family History: Family History (Last Reviewed 02/21/19 @ 14:50 by Fannie Osorio DO) Other Heart disease High cholesterol Hypertension Myocardial infarction Family History: Reports: Cancer - Colon cancer, Heart Disease, - Maternal Family History: Family History (Last Reviewed 02/21/19 @ 14:50 by Fannie Osorio DO) Other Heart disease High cholesterol Hypertension Myocardial infarction Family History: Reports: Heart Disease, Hypertension Review of Systems General: Reports: Chills, Fever. Denies: Sweats Eyes: Denies: Visual changes - bilaterally, Diplopia ENT: Denies: Rhinorrhea, Sore throat Cardiovascular: Denies: Chest pain, Palpitations Respiratory: Denies: Dyspnea, Cough, Dyspnea on exertion Gastrointestinal: Denies: Abdominal pain, Nausea, Vomiting, Diarrhea, Melena, Hematochezia Genitourinary: Reports: Dysuria. Denies: Hematuria, Frequency Musculoskeletal: Denies: Back pain, Extremity Pain Skin: Denies: Rash, Wounds Neurological: Denies: Headache, Weakness, Numbness Physical Exam Vital Signs/Narrative: Vital Signs Temp Pulse Resp BP Pulse Ox 03/18/19 01:23 101.6 F H 105 H 31 H 106/76 88 03/18/19 01:15 101.6 F H 109 H 37 H 106/76 88 General: Well nourished, Well developed, No Acute Distress, - - Chills noted Head: Normocephalic, Atraumatic Eyes: Perrl, EOMI ENT: Moist mucous membranes, No rhinorrhea Neck: Supple, Nontender Cardiovascular: Regular rate, No murmurs, Tachycardia Respiratory: No distress, CTA bilaterally, Chest nontender Abdomen: Soft, Nontender, Nondistended, Normal bowel sounds Back: Nontender, Normal Inspection Extremities: Nontender, Edema - Mild 1+ edema to the bilateral lower extremities Skin: Normal color, No rash Neurological: Alert, Oriented x3, Cranial nerves II-XII grossly intact, Normal Strength, Normal Sensation Psychological: Normal affect, Normal Mood Diagnostic/Tx/Re-eval - Medical Decision Making Appears the patient has fever tachypnea tachycardia secondary to sepsis. IV established and given IV fluid bolus. Given Tylenol for her fever. Started on ceftriaxone empirically for the urinary tract infection that was diagnosed a few days ago that she did not get antibiotics for. I feel this is likely the source. Blood and urine culture sent prior to antibiotics. Further lab work will be obtained. Adler catheter will be placed monitor fluids and output. Lab work shows no leukocytosis with positive left shift. Positive chronic renal i nsufficiency. Liver function test showed no major abnormalities. Lactate negative. Urinalysis shows significant white blood cells in the urine with positive bacteria 2+. This is the source of her sepsis as we suspected. Urine culture and blood culture sent. Started on ceftriaxone upon arrival. Given IV fluids. Due to the fact that the patient did not have IV access she consented for central line. Procedure note: The patient neck was prepped with chlorhexidine and a sterile fashion. Using an ultrasound probe with Seldinger technique under sterile conditions the IJ was easily found. Wire was easily threaded without complication. Catheter was inserted over the wire. There was nonpulsatile blood flow. Catheter was flushed and sutured in place. Post procedure chest x- ray shows the catheter to be too deep. The area was again sterilized with chlorhexidine. The catheter was pulled out approximately 4 cm and resutured in place. Patient had a chest x-ray again which shows the line to be in proper position without pneumothorax. Case discussed with the hospitalist who will admit the patient - Critical Care Time Critical care time (excluding procedures): 30-74 minutes ED Disposition - Plan for ED Patient: Diagnosis: Sepsis, Urinary tract infection, Encounter for central line placement
--- NOTE | 2019-03-18 02:00 | ED.RN ---
PT HARD STICK. MULTIPLE ATTEMPTS BY VARIOUS RN'S. DR. GARCIA INFORMED. UNABLE TO OBTAIN BLOOD SPECIMENS. PT MOVED TO TRAUMA 2 TO INSERT CENTRAL LINE. PT DAUGHTER AND POA SIGNS CONSENT FOR CVC INSERTION. PT EDUCATED ON CENTRAL LINE PLACEMENT. DENIES ANY QUESTIONS. WILL CONTINUE TO MONITOR.
--- NOTE | 2019-03-18 02:18 | RAD_ITS ---
STUDY: X-RAY CHEST REASON FOR EXAM: Female, 73 years old. Line placement TECHNIQUE: AP portable COMPARISON: 09/03/2017 FINDINGS: Interval placement of right IJ line with the tip tracking into the IVC. Retraction approximately 8 cm recommended. No pneumothorax. The lungs are clear and expanded. There is no demonstrated pleural abnormality. Normal size heart. Normal mediastinum and epifanio. Normal visualized pulmonary arteries. Normal visualized aortic arch and descending thoracic aorta. There are diffuse degenerative changes of the visualized thoracic spine. There is degenerative osteoarthritis of the bilateral shoulders. There is no demonstrated abnormality of the visualized soft tissue structures of the upper abdomen. RAD/CXR for Line Placement IMPRESSION: Interval insertion of right IJ line with tip tracking into the IVC. Retraction approximately 8 cm recommended. No acute pulmonary disease. Electronically Signed: Bobby Ramesh, at 2:46 EDT Tel , Service support ,
[2019-03-18] MEDS: Acetaminophen 500 MG Tablet 1000 MG PO (02:27)
[2019-03-18] MEDS: 0.9% Normal Saline 1,000 ML 1000 ML IV (02:28)
[2019-03-18 02:45] LABS: Absolute Neutrophil Count 6.8 X10^3/uL (2.0-7.7); Basophil# 0.05 X10^3/uL; Basophil% 0.6 % (0-1); Eosinophil# 0.05 X10^3/uL; Eosinophils% 0.6 % (0-5); Hematocrit 38.5 % (37-47); Hemoglobin 12.1 g/dL (12.0-15.0); Lymphocyte % 8.2 % (19-41); Mean Corp Hgb Conc 31.4 g/dL (32-36); Mean Corpuscular Hgb 29.3 pg (27.0-32.0); Mean Corpuscular Volume 93.2 fL (81-99); Monocyte# 0.94 X10^3/uL; NRBC Flagged by Analyzer 0 % (0-5); Neutrophil # 6.77 X10^3/uL (2.7-7.7); Neutrophil % 78.9 % (47-70); Platelet Count 192 K/mm3 (150-450); RBC Distribution Width CV 14.2 % (11.6-14.6); RBC Distribution Width SD 48.8 fl (35.1-43.9); Red Blood Count 4.13 M/mm3 (4.2-5.4); White Blood Count 8.6 K/mm3 (4.4-11.0)
[2019-03-18 02:55] LABS: Mucous, Urine 0 SEEN /hpf (<or=2+); Red Blood Cells-Urine 0 SEEN /hpf (0-5); Squamous Epithelial Cells - UA 0 SEEN /hpf (5-10)
[2019-03-18 02:57] LABS: Color, Urine Yellow (Yellow); Glucose, Dipstick Normal (Normal); Ketone-Dipstick 5 mg/dl (Negative); Leukocyte Esterase-Dipstick 100 /ul (Negative); Nitrite-Dipstick Positive (Negative); Occult Blood-Urine 50 /ul (Negative); Protein-Dipstick 30 mg/dl (Negative); Specific Gravity, Urine 1.015 (1.002-1.030); Urine Bilirubin Dipstick Negative (Negative); Urine Clarity Sl. Cloudy (Clear); Urine Urobilinogen Normal (Normal)
--- NOTE | 2019-03-18 03:02 | RAD_ITS ---
STUDY: X-RAY CHEST REASON FOR EXAM: Female, 73 years old. central line TECHNIQUE: AP portable COMPARISON: 03/18/2019 FINDINGS: Interval retraction of right IJ line with tip in the right atrium and retraction approximately 2 cm could be performed. The lungs remain clear. No evidence for pneumothorax. There is no demonstrated abnormality of the visualized soft tissue structures of the upper abdomen. RAD/CXR for Line Placement IMPRESSION: Interval retraction of central line catheter with tip in the right atrium. The lungs remain clear. No other interval change. Electronically Signed: Bobby Ramesh, at 3:29 EDT Tel , Service support ,
[2019-03-18 03:03] LABS: Bacteria 2+ /hpf (None Seen); White Blood Cells 25-50 SEEN /hpf (0-5)
[2019-03-18 03:04] LABS: ALB/GLOB Ratio 0.7 RATIO (0.9-2.4); AST(SGOT) 13 U/L (15-37); Alanine Aminotransfer ALT/SGPT 16 U/L (13-56); Albumin, Serum 2.6 g/dL (3.2-5.0); Alkaline Phosphatase 51 U/L (45-117); Anion Gap 5 (5-15); BUN 19 mg/dL (7-18); BUN/Creat Ratio 23.9 RATIO (10-20); Calcium,Total 7.8 mg/dL (8.5-10.1); Chloride 106 mmol/L (98-107); EST Glomerular Filtration Rate 75 mL/min (>60); Est Glom Filt Rate - Afr Amer 91 mL/min (>60); Globulin 3.7 g/dL (2.2-4.2); Glucose 125 mg/dL (74-106); Lactic Acid 0.6 mmol/L (0.4-2.0); Protein, Total 6.3 g/dL (6.4-8.2); Sodium Level 136 mmol/L (136-145)
--- NOTE | 2019-03-18 03:05 | ED.RN ---
THIS RN CALLED [facility]. UNABLE TO CONTACT NURSE. CALLING OT OBTAIN MEDICATION LIST. WHEN THE NURSE AT [facility] CALLED REPORT SHE REPORTED THAT THEY WERE HAVING COMPUTER ISSUES AND WERE UNABLE TO VIEW AND PRINT EMR OR MEDICATION LIST. WILL CONTINUE TO MONITOR.
[2019-03-18] MEDS: Ceftriaxone 1 GM/50 ML BAG IV (03:14)
--- NOTE | 2019-03-18 03:59 | HP.PCM_ITS ---
Problem List (1) Unilateral primary osteoarthritis, right knee Status: Chronic (2) Chronic pain following surgery or procedure Status: Chronic (3) Morbid obesity with BMI of 45.0-49.9, adult Status: Chronic (4) ROXIE (obstructive sleep apnea) Status: Chronic Comment: says she got off CPAP_ when she had gastric bypass surgery ......wieghed 248 after bypass and was up to 312 recently but, has been losing weight, unintentional. 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 Per the assisted living, she was diagnosed with a UTI 4 days ago and she was ordered (however they had difficulty getting that antibiotic and has been without any antibiotic for 4 days. She developed a fever and had increasing frequency and symptoms of dysuria and therefore was transferred to the ER. She was found to have a UA that was consistent with UTI and on review of her previous UTIs, she had pansensitive E. coli and therefore she was given a dose of Rocephin down here in the ER. Central line was placed for IV access. She denies any nausea or vomiting, there is no shortness of breath or chest pain. Past Medical History Past Medical History (Chronic Problems): Chronic Problems (Last Reviewed 02/21/19 @ 14:21 by Fannie Osorio DO) Unilateral primary osteoarthritis, right knee (Chronic) Chronic pain following surgery or procedure (Chronic) Morbid obesity with BMI of 45.0-49.9, adult (Chronic) ROXIE (obstructive sleep apnea) (Chronic) says she got off CPAP_ when she had gastric bypass surgery ......wieghed 248 after bypass and was up to 312 recently but, has been losing weight, unintentional. 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 (Chronic) Shortness of breath on exertion (Chronic) Medical History: Medical History (Last Reviewed 02/21/19 @ 14:21 by Fannie Osorio DO) Arthritis M19.90 Bilateral headaches R51 Carpal tunnel syndrome G56.00 Cataracts, both eyes H26.9 Closed left arm fracture S42.302A Diabetes E11.9 FHx: cholecystectomy Z84.89 Heart disease I51.9 History of gallstones Z87.19 History of hysterectomy Z90.710 Neuropathy G62.9 Osteoarthritis M19.90 Polycystic ovaries E28.2 Hypertension I10 Allergies ampicillin [From Unasyn] Allergy (Severe, Verified 02/21/19 09:36) Other Blisters on tongue /throat difficulty breathing sore tongue/throat warfarin sodium [From Coumadin] Allergy (Severe, Verified 02/21/19 09:36) Low red blood cells Home Medications: Ambulatory Orders Medication Instructions Recorded Cholecalciferol (VIT D3) [Vitamin 1,000 unit PO DAILY 12/29/15 D3] Denosumab [Prolia] 60 mg SQ Q6M 12/29/15 Duloxetine Hcl [Cymbalta] 60 mg PO DAILY 12/29/15 Gabapentin [Neurontin] 300 mg PO TID 12/29/15 Acetaminophen [Tylenol Tablet] 500 mg PO Q6H PRN PRN 12/30/16 Apixaban [Eliquis] 5 mg PO BID #30 tab 08/29/17 Ascorbic Acid [Vitamin C] 500 mg PO BID 01/01/18 Methenam 80 mg PO TID 01/01/18 Omeprazole 20 mg PO BID 01/01/18 diclofenac 1 % topical gel 4 g TOPICAL .COMPLEX PRN #100 g 07/23/18 D-Mannose 1,500 mg PO DAILY 08/05/18 Divalproex Sodium [Depakote] 500 mg PO BID 08/05/18 L.acidoph,Paracasei, B.lactis 1 each PO DAILY 08/05/18 [Probiotic] Pravastatin [Pravachol] 40 mg PO DAILY 08/05/18 Solifenacin Succinate [Vesicare] 5 mg PO DAILY 08/05/18 Tranferfactor 1 cap PO BID 08/05/18 Surgical History: Surgical History (Last Reviewed 02/21/19 @ 14:49 by Fannie Osorio DO) History of carpal tunnel surgery Z98.890 Total knee replacement status Z96.659 Surgical History: cholecystectomy, gastric bypass, hysterectomy, tonsillectomy, - - Gastric bypass, surgery for left arm fracture Psychiatric History: No 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 psych hx 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, dysfunctional 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 Denies: Weight Change HEENT: Denies: Head Aches, Sinus Congestion, Sinus Drainage Cardiovascular: Denies: Chest Pain, Palpitations Respiratory: Denies: Cough, Shortness of breath at rest, Sputum production Gastrointestinal: Denies: Abdominal Pain, Nausea, Vomiting Genitourinary: Reports: Dysuria, Frequency Musculoskeletal: Denies: Joint Pain, Joint Tenderness Skin: Denies: Rash, Wounds Neurological: Denies: Numbness, Tingling, Focal weakness Psychiatric: Denies: Anxiety, Depression Hematologic/ Lymphatic: Denies: Easy Bruising, Easy Bleeding VTE Information - Inpt Only VTE Present on Admission: No Patient Problems: Active and Suspected Problems (Last Reviewed 02/21/19 @ 14:21 by Fannie Osorio DO) Sepsis (Acute) Urinary tract infection (Acute) Encounter for central line placement (Acute) - Physical Exam General: Alert, Oriented x3, Cooperative, No apparent distress HEENT: Atraumatic, PERRLA, EOMI, Normocephalic Oral: Dry Mucosa Neck: Supple, No JVD Lungs: Clear to auscultation, Normal air movement, No rhonchi, No wheeze, No rales Cardiovascular: Regular rate, Regular Rhythm, Normal S1, Normal S2, No murmurs Abdomen: Soft, Non Tender, Non-Distended, No Hepato-splenomegaly, Obese Extremities: Capillary Refill Less than 3 Seconds, Edema - 1+ bilaterally Skin: No rashes, No breakdown Neurological: Neuro grossly intact, Sensory exam intact to light touch and pain Psych/Mental Status: Normal Affect, Appropriate Vital Signs Temp Pulse Resp BP Pulse Ox 102.2 F H 100 25 H 106/61 98 03/18/19 03:45 03/18/19 03:45 03/18/19 03:45 03/18/19 03:45 03/18/19 03:45 Oxygen Flow Rate (L/min) 6 Oxygen Delivery Method Nasal Cannula Weight: 282 lb 10.122 oz Body Mass Index (BMI) 47.0 Intake and Output for Last 24 Hours 03/16/19 03/17/19 03/18/19 23:59 23:59 23:59 Intake Total 900 / 900 Balance 900 / 900 Laboratory Tests Past 24 Hrs 03/18/19 03/18/19 03/18/19 02:35 02:35 02:35 WBC 8.6 RBC 4.13 L Hgb 12.1 Hct 38.5 MCV 93.2 MCH 29.3 MCHC 31.4 L RDW Std Deviation 48.8 H RDW Coeff of Chani 14.2 Plt Count 192 MPV 9.0 Immature Gran % (Auto) 0.700 Neut % (Auto) 78.9 H Lymph % (Auto) 8.2 L Woodruff % (Auto) 11.0 H Eos % (Auto) 0.6 Baso % (Auto) 0.6 Absolute Neuts (auto) 6.8 Absolute Lymphs (auto) 0.70 L Nucleated RBC % 0 Sodium 136 Potassium 4.0 Chloride 106 Carbon Dioxide 25.0 Anion Gap 5 BUN 19 H Creatinine 0.80 Estim Creat Clear Calc 57.20 Est GFR (MDRD) Af Amer 91 Est GFR (MDRD) Non-Af 75 BUN/Creatinine Ratio 23.9 H Glucose 125 H Lactic Acid 0.6 Calcium 7.8 L Total Bilirubin 0.50 AST 13 L ALT 16 Alkaline Phosphatase 51 Total Protein 6.3 L Albumin 2.6 L Globulin 3.7 Albumin/Globulin Ratio 0.7 L Urine Color Urine Clarity Urine pH Ur Specific [place] Urine Protein Urine Glucose (UA) Urine Ketones Urine Occult Blood Urine Nitrite Urine Bilirubin Urine Urobilinogen Ur Leukocyte Esterase Urine RBC Urine WBC Ur Squamous Epith Cells Urine Bacteria Urine Mucus 03/18/19 02:50 WBC RBC Hgb Hct MCV MCH MCHC RDW Std Deviation RDW Coeff of Chani Plt Count MPV Immature Gran % (Auto) Neut % (Auto) Lymph % (Auto) Woodruff % (Auto) Eos % (Auto) Baso % (Auto) Absolute Neuts (auto) Absolute Lymphs (auto) Nucleated RBC % Sodium Potassium Chloride Carbon Dioxide Anion Gap BUN Creatinine Estim Creat Clear Calc Est GFR (MDRD) Af Amer Est GFR (MDRD) Non-Af BUN/Creatinine Ratio Glucose Lactic Acid Calcium Total Bilirubin AST ALT Alkaline Phosphatase Total Protein Albumin Globulin Albumin/Globulin Ratio Urine Color Yellow Urine Clarity Sl. Cloudy Urine pH 6.0 Ur Specific [place] 1.015 Urine Protein 30 H Urine Glucose (UA) Normal Urine Ketones 5 H Urine Occult Blood 50 H Urine Nitrite Positive H Urine Bilirubin Negative Urine Urobilinogen Normal Ur Leukocyte Esterase 100 H Urine RBC 0 SEEN Urine WBC 25-50 SEEN Ur Squamous Epith Cells 0 SEEN Urine Bacteria 2+ Urine Mucus 0 SEEN Assessment/Plan All Active Problems (Last Reviewed 02/21/19 @ 14:21 by Fannie Osorio DO) Hypophosphatemia (Acute) Sepsis (Acute) Urinary tract infection (Acute) Encounter for central line placement (Acute) Weakness (Acute) Abdominal pain (Resolved) 1. Sepsis secondary to a UTI -Previous urine culture with pansensitive E. coli -Continue with Ancef 2 g IV 3 times daily -Blood and urine cultures are pending -Continue with IV fluids -Lactate was normal 2. History of DVT -She is on chronic anticoagulation -Continue with Eliquis 3. Osteoporosis -Stable -Continue with vitamin D and Prolia 4. Morbid obesity/DM 2 with peripheral neuropathy/HLD -She currently is not on any medications for diabetes secondary to her gastric bypass -Current BMI is 47 we will discuss with her lifestyle modifications -Continue with a statin 5. Osteoarthritis -Stable -Continue with her home pain medications -This is mostly in her right knee and she had a steroid injection under fluoroscopic guidance in January of this year 6. GERD -Stable -Continue with PPI DVT: Eliquis Code Visit Inpatient E&M: 77420 Init Hosp L3
[2019-03-18] MEDS: 0.9% Normal Saline 1,000 ML 100 ML IV ×2 (04:58→16:59)
[2019-03-18] MEDS: Cefazolin 2 GM in 0.9% Normal Saline 100 ML IV ×3 (05:52→21:57)
--- NOTE | 2019-03-18 07:18 | PCM.PN.BLA ---
Progress Note Patient is a 73-year-old lady who was brought to the emergency department assessment of sepsis secondary to UTI was made admitted to regular nursing floor for further management GENERAL: cooperative HEENT: Atraumatic; EYES; Anicteric, Normal Conjunctiva NECK; supple, normal thyroid, RESPIRATORY: Diminished to auscultation CARDIOVASCULAR: Regular S1 S2, GI: soft, non-tender, normoactive bowel sounds, : No Renal angle tenderness; EXTREMITIES: No edema, no clubbing, no cyanosis. NEURO: Awake; no lateralizing signs. SKIN: No Rash PSYCH; Normal affect 1. Sepsis secondary to acute UTI Started on cefazolin admitted to regular nursing floor 2. History of DVT Continue with Eliquis 3. Osteoporosis - vitamin D and Prolia 4. Morbid obesity ~ With a BMI of 47 patient was counseled on weight reduction 5. Peripheral neuropathy Patient is on gabapentin plan is to continue once home meds have been reconciled 6. Dyslipidemia ~patient is on statin therapy, continued at home dose 7. Osteoarthritis 8. GERD 9. DVT: Eliquis Advance planning; did discuss with the patient and family regarding advanced directives as well as CODE STATUS. Did explain the various scenarios involved ( FULL CODE, DNR CCA, DNR CCA with no intubation, and DNR CC and what each meant) patient elected to be DNR CCA no intubation. Order was placed. Time spent on discussion 16 minutes. Code Visit Procedures: [id number] Advncd Care Plan 30 Min
--- NOTE | 2019-03-18 09:49 | CASEMGMT ---
Pt does not have LW. POA form is in the paper chart, [facility]era Bonds is listed as pt's medical POA. DANIELA Umaña
[2019-03-18] MEDS: Acetaminophen 325 MG Tablet 650 MG PO ×2 (10:21→17:27)
--- NOTE | 2019-03-18 10:23 | CASEMGMT ---
Addendum entered by Maria E Martinez 03/18/19 16:01: SW met with pt and explained that pt may benefit from SNF at discharge and explained that [facility] is skilled side of [facility]. Pt denied wanting to go to SNF, states she wants to return to [facility]. SW provided pt with list of SNF that accept pt's insurance in the event SNF is needed. Addendum entered by Maria E Martinez 03/18/19 15:49: SW faxed PT/OT to [facility]. Pt was min assist of 1 and walked 4ft. Pt may benefit from SNF at discharge. SW to follow up with pt tomorrow to confirm discharge plans. Addendum entered by Maria E Martinez 03/18/19 11:34: Pt's LANG Wells at [facility] and requesting to speak to this worker. RUKHSANA met with Brook. Brook asked if pt will be discharged on IV antibiotics. This worker informed Brook that this worker doesn't know that yet as physician is waiting on cultures. Brook states that she informed pt that if IV antibiotics are needed pt will need to go to skilled side at discharge. Original Note: Social Work Note Pt is listed as being from [facility]. RUKHSANA met with pt and introduced self and role at [facility]. Pt is alert and orientated x3. Pt confirms that she is from [facility] and plans on returning at discharge. Pt states that her daughter should be able to transport her on discharge. SW faxed updated clinicals to [facility]. SW will fax PT/OT when available. Plan: Return to [facility] once medically cleared Maria E Martinez FENCE REPAIRMAN, INSTRUMENT REPAIR SPECIALIST
[2019-03-18] MEDS: APIXABAN 5 MG TABLET PO ×2 (11:54→22:00)
[2019-03-18] MEDS: DULoxetine Hcl 60 MG Capsule PO (11:55)
[2019-03-18] MEDS: Gabapentin 300 MG Capsule PO ×2 (11:55→21:59)
[2019-03-18] MEDS: Divalproex Sodium 250 MG Tablet 500 MG PO ×2 (11:56→21:58)
[2019-03-18] MEDS: Pantoprazole Sodium 40 MG Tablet PO ×2 (11:56→21:58)
[2019-03-18] MEDS: Furosemide 40 MG Tablet PO (12:03)
[2019-03-18] MEDS: Ascorbic Acid 500 MG Tablet PO (16:59)
[2019-03-18] MEDS: Primidone 50 MG Tablet PO (21:59)
[2019-03-18] MEDS: Pravastatin 40 MG Tablet PO (21:59)
[2019-03-18] MEDS: Tolterodine Tartrate 4 MG CAP.SA PO (22:00)
[2019-03-18] MEDS: guaiFENesin Dm 10 ML UDC PO (23:29)
[2019-03-19] VITALS (7 sets, daily range): BP systolic 113–155; BP diastolic 55–73; PULSE 73–98; RESP 18–28; TEMP 36.6–37.5; O2SAT 92–98
[2019-03-19] MEDS: 0.9% Normal Saline 1,000 ML 100 ML IV ×2 (03:50→13:33)
[2019-03-19] MEDS: guaiFENesin Dm 10 ML UDC PO ×5 (03:54→22:31)
[2019-03-19] MEDS: Cefazolin 2 GM in 0.9% Normal Saline 100 ML IV ×3 (05:48→21:14)
[2019-03-19] MEDS: Gabapentin 300 MG Capsule PO ×3 (05:49→21:10)
[2019-03-19 06:20] LABS: Absolute Lymphocyte Count 0.95 X10^3/uL (0.83-4.51); Absolute Neutrophil Count 3.3 X10^3/uL (2.0-7.7); Basophil# 0.03 X10^3/uL; Basophil% 0.6 % (0-1); Eosinophil# 0.08 X10^3/uL; Eosinophils% 1.6 % (0-5); Hematocrit 31.9 % (37-47); Lymphocyte # 0.95 X10^3/ul (4.0); Lymphocyte % 18.4 % (19-41); Mean Corp Hgb Conc 31.3 g/dL (32-36); Mean Corpuscular Hgb 29.4 pg (27.0-32.0); Mean Corpuscular Volume 93.8 fL (81-99); Mean Platelet Vol. 9.9 fl (6.2-12.0); Monocyte# 0.82 X10^3/uL; Monocyte% 15.9 % (0-10); NRBC Flagged by Analyzer 0 % (0-5); Neutrophil # 3.25 X10^3/uL (2.7-7.7); Neutrophil % 62.9 % (47-70); Platelet Count 163 K/mm3 (150-450); RBC Distribution Width CV 14.3 % (11.6-14.6); RBC Distribution Width SD 49.8 fl (35.1-43.9); White Blood Count 5.2 K/mm3 (4.4-11.0)
[2019-03-19 06:42] LABS: Anion Gap 5 (5-15); BUN 13 mg/dL (7-18); BUN/Creat Ratio 19.6 RATIO (10-20); Calcium,Total 7.3 mg/dL (8.5-10.1); Chloride 109 mmol/L (98-107); Creatinine, Serum 0.66 mg/dL (0.55-1.02); EST Glomerular Filtration Rate 93 mL/min (>60); Est Glom Filt Rate - Afr Amer 113 mL/min (>60); Estimated Creatinine Clearance 45.76 ml/min; Glucose 95 mg/dL (74-106); Potassium 3.7 mmol/L (3.5-5.1); Sodium Level 140 mmol/L (136-145)
--- NOTE | 2019-03-19 07:56 | PCM.PN.HOSP ---
Patient Problems: Active and Suspected Problems (Last Reviewed 02/21/19 @ 14:21 by Fannie Osorio DO) Sepsis (Acute) Urinary tract infection (Acute) Encounter for central line placement (Acute) Subjective: CC follow-up acute cystitis Patient is a 73-year-old lady who was brought to the emergency department assessment of sepsis secondary to UTI was made admitted to regular nursing floor for further management Cultures drawn on admission so far positive for gram-negative rods in the blood. Objective: GENERAL: cooperative HEENT: Atraumatic; EYES; Anicteric, Normal Conjunctiva NECK; supple, normal thyroid, RESPIRATORY: Diminished to auscultation CARDIOVASCULAR: Regular S1 S2, GI: soft, non-tender, normoactive bowel sounds, : No Renal angle tenderness; EXTREMITIES: No edema, no clubbing, no cyanosis. NEURO: Awake; no lateralizing signs. SKIN: No Rash PSYCH; Normal affect Vitals/I&O's: Vital Signs Temp Pulse Resp BP Pulse Ox 99.3 F H 98 18 155/73 H 94 03/19/19 04:35 03/19/19 04:35 03/19/19 04:35 03/19/19 04:35 03/19/19 04:35 Oxygen Flow Rate (L/min) 1 Oxygen Delivery Method Room Air Weight: 129.274 kg Body Mass Index (BMI) 47.4 Intake and Output for Last 24 Hours 03/17/19 03/18/19 03/19/19 23:59 23:59 23:59 Intake Total 2780.00 / 3080.00 1760 / 1760 Output Total 350 / 350 Balance 2430.00 / 2730.00 1760 / 1760 Microbiology Past 72 Hours 03/18/19 02:50 Blood Culture (Wb) - Central Line Blood Culture - Preliminary Laboratory Results 03/19/19 05:39: Sodium 140, Potassium 3.7, Chloride 109 H, Carbon Dioxide 26.0, Anion Gap 5, BUN 13, Creatinine 0.66, Estim Creat Clear Calc 45.76, Est GFR (MDRD) Af Amer 113, Est GFR (MDRD) Non-Af 93, BUN/Creatinine Ratio 19.6, Glucose 95, Calcium 7.3 L 03/19/19 05:39: WBC 5.2, RBC 3.40 L, Hgb 10.0 L, Hct 31.9 L, MCV 93.8, MCH 29.4, MCHC 31.3 L, RDW Std Deviation 49.8 H, RDW Coeff of Chani 14.3, Plt Count 163, MPV 9.9, Immature Gran % (Auto) 0.600, Neut % (Auto) 62.9, Lymph % (Auto) 18.4 L, Rabun % (Auto) 15.9 H, Eos % (Auto) 1.6, Baso % (Auto) 0.6, Absolute Neuts (auto) 3.3, Absolute Lymphs (auto) 0.95, Nucleated RBC % 0 Current Medications Acetaminophen (Tylenol) 650 mg PO Q6H PRN PRN PRN Reason: Mild Pain (1-3)/Temp > 100.7 F Last Admin: 03/18/19 17:27 Dose: 650 mg Documented by: Apixaban (Eliquis) 5 mg PO BID [facility] Last Admin: 03/18/19 22:00 Dose: 5 mg Documented by: [facility]orbic [facility] ([facility]itamin [facility]) [facility] Last Admin: 03/18/19 16:59 Dose: 500 mg Documented by: Cholecalciferol (Vitamin D) 1,000 unit PO DAILY [facility] Last Admin: 03/18/19 11:54 Dose: 1,000 unit Documented by: Divalproex Sodium (Depakote) 500 mg PO BID [facility] Last Admin: 03/18/19 21:58 Dose: 500 mg Documented by: Duloxetine HCl (Cymbalta) 60 mg PO DAILY [facility] Last Admin: 03/18/19 11:55 Dose: 60 mg Documented by: Fluticasone Propionate (Flonase Nasal [place]) 2 spray NASAL DAILY [facility] Last Admin: 03/18/19 12:03 Dose: Not Given Documented by: Furosemide (Lasix) 40 mg PO DAILY [facility] Last Admin: 03/18/19 12:03 Dose: 40 mg Documented by: Gabapentin (Neurontin) 300 mg PO TID [facility] Last Admin: 03/19/19 05:49 Dose: 300 mg Documented by: Guaifenesin (Robitussin Dm) 10 ml PO Q4H PRN PRN PRN Reason: COUGH Last Admin: 03/19/19 03:54 Dose: 10 ml Documented by: Sodium Chloride () 1,000 mls @ 100 mls/hr IV .Q10H [facility] Last Infusion: 03/19/19 06:48 Dose: 100 mls/hr Documented by: Cefazolin Sodium 2 gm/ Sodium (Chloride) 110 mls @ 150 mls/hr IV Q8 [facility] Last Infusion: 03/19/19 06:48 Dose: Infused Documented by: Sodium Chloride () 250 mls @ 15 mls/hr IV .[id number] PRN PRN Reason: SALINE FLUSH Pantoprazole Sodium (Protonix) 40 mg PO BID [facility] Last Admin: 03/18/19 21:58 Dose: 40 mg Documented by: Pravastatin Sodium (Pravachol) 40 mg PO QHS [facility] Last Admin: 03/18/19 21:59 Dose: 40 mg Documented by: Primidone (Mysoline) 50 mg PO QHS [facility] Last Admin: 03/18/19 21:59 Dose: 50 mg Documented by: Simethicone (Mylicon) 80 mg PO PCHS [facility] Last Admin: 03/18/19 21:59 Dose: 80 mg Documented by: Sodium Chloride () 10 - 40 ml IV UD PRN PRN Reason: MULTILUMEN/HICMAN CATH FLUSH Last Admin: 03/18/19 10:23 Dose: 10 ml Documented by: Tolterodine Tartrate (Detrol La) 4 mg PO QHS [facility] Last Admin: 03/18/19 22:00 Dose: 4 mg Documented by: Medical Necessity - Tobacco Use Smoking Status: Never smoker Assessment/Plan All Active Problems (Last Reviewed 02/21/19 @ 14:21 by Fannie Osorio DO) Hypophosphatemia (Acute) Sepsis (Acute) Urinary tract infection (Acute) Encounter for central line placement (Acute) Weakness (Acute) Abdominal pain (Resolved) Patient is a 73-year-old lady who was brought to the emergency department assessment of sepsis secondary to UTI was made admitted to regular nursing floor for further management 1. Sepsis secondary to acute UTI ~ Started on cefazolin admitted to regular nursing floor ?03/19/2019 blood cultures drawn on admission so far positive for GNR lactose cupola melter 2. History of DVT ~And is on Eliquis did continue 3. Osteoporosis - vitamin D and Prolia 4. Morbid obesity ~ With a BMI of 47 patient was counseled on weight reduction 5. Peripheral neuropathy ~Patient is on gabapentin continued 6. Dyslipidemia ~patient is on statin therapy, continued at home dose 7. Osteoarthritis ~Pain treatment as needed 8. GERD ?Patient is on PPI continued 9. DVT prophylaxis ~Patient is on Eliquis Eliquis Microbiology 03/18/19 02:50 Blood Culture (Wb) - Central Line Blood Culture - Preliminary GNR lactose cupola melter Code Visit Inpatient E&M: 30105 Subs Hosp L2
[2019-03-19] MEDS: Ascorbic Acid 500 MG Tablet PO ×2 (08:13→18:16)
[2019-03-19] MEDS: DULoxetine Hcl 60 MG Capsule PO (09:42)
[2019-03-19] MEDS: APIXABAN 5 MG TABLET PO ×2 (09:43→21:09)
[2019-03-19] MEDS: Divalproex Sodium 250 MG Tablet 500 MG PO ×2 (09:43→21:09)
[2019-03-19] MEDS: Fluticasone 0.05% 1 SPRAY NASAL.SRY 2 SPRAY NASAL (09:43)
[2019-03-19] MEDS: Furosemide 40 MG Tablet PO (09:45)
[2019-03-19] MEDS: Pantoprazole Sodium 40 MG Tablet PO ×2 (09:45→21:11)
--- NOTE | 2019-03-19 10:14 | CASEMGMT ---
Social Work Note Per Physician pt will be at [facility] 1-2 more days. RUKHSANA faxed updated clinicals to [facility]. RUKHSANA placed green sheet and transportation form on pt's chart for weekend discharge. Plan: Return to [facility] once medically cleared Maria E Martinez MSW, SENIOR INTERACTIVE PRODUCER
[2019-03-19] MEDS: Acetaminophen 325 MG Tablet 650 MG PO ×2 (11:56→18:29)
[2019-03-19] MEDS: Tolterodine Tartrate 4 MG CAP.SA PO (21:09)
[2019-03-19] MEDS: Primidone 50 MG Tablet PO (21:10)
[2019-03-19] MEDS: Pravastatin 40 MG Tablet PO (21:11)
[2019-03-20] MEDS: 0.9% Normal Saline 1,000 ML 100 ML IV (00:09)
[2019-03-20 02:23] VITALS: BP 125/65; PULSE 72; RESP 20; TEMP 36.7; O2SAT 98
[2019-03-20] MEDS: Acetaminophen 325 MG Tablet 650 MG PO ×2 (02:50→10:44)
[2019-03-20] MEDS: Cefazolin 2 GM in 0.9% Normal Saline 100 ML IV (05:54)
[2019-03-20] MEDS: guaiFENesin Dm 10 ML UDC PO ×2 (05:55→10:44)
[2019-03-20] MEDS: Gabapentin 300 MG Capsule PO (05:55)
[2019-03-20 08:23] VITALS: BP 109/80; PULSE 70; RESP 18; TEMP 37; O2SAT 98
[2019-03-20] MEDS: Ascorbic Acid 500 MG Tablet PO (08:40)
--- NOTE | 2019-03-20 09:39 | PCM.DC ---
- Discharge Diagnoses Current Active Problems: Current Active and Chronic Problems (Last Reviewed 02/21/19 @ 14:21 by Fannie Osorio DO) Sepsis (Acute) Urinary tract infection (Acute) Encounter for central line placement (Acute) You will use the following diet at home:: Calorie/Carbohydrate Controlled (specify 1200, 1400, etc) - 1800 Your food should be the consistency of: Regular Discharge Activity: Return to Normal Activity, May not drive while taking narcotic pain medications. Allergies/Adverse Reactions: Allergies ampicillin [From Unasyn] Allergy (Severe, Verified 02/21/19 09:36) Other Blisters on tongue /throat difficulty breathing sore tongue/throat warfarin sodium [From Coumadin] Allergy (Severe, Verified 02/21/19 09:36) Low red blood cells Medications to take at Discharge Cholecalciferol (VIT D3) [Vitamin D3] 1,000 unit PO DAILY 12/29/15 Duloxetine Hcl [Cymbalta] 60 mg PO DAILY 12/29/15 Gabapentin [Neurontin] 300 mg PO TID 12/29/15 Acetaminophen [Tylenol Tablet] 1,000 mg PO Q6H PRN PRN 12/30/16 Ascorbic Acid [Vitamin C] 500 mg PO BID 01/01/18 Omeprazole 40 mg PO BID 01/01/18 Divalproex Sodium [Depakote] 500 mg PO BID 08/05/18 Pravastatin [Pravachol] 40 mg PO QHS 08/05/18 Solifenacin Succinate [Vesicare] 10 mg PO QHS 08/05/18 Apixaban [Eliquis] 5 mg PO BID 03/18/19 Fluticasone 0.05% [Flonase Nasal [place]] 2 spray NASAL DAILY 03/18/19 Furosemide [Lasix] 40 mg PO DAILY 03/18/19 Guaifenesin Dm [Robitussin Dm] 10 ml PO Q4H PRN 03/18/19 Hydrocodone Bitart/Apap 5-325 [[place] 5/325] 1 tab PO Q8H PRN PRN 03/18/19 Primidone 50 mg PO QHS 03/18/19 SimETHICONE [Mylicon] 80 mg PO PCHS 03/18/19 Ciprofloxacin [Cipro] 500 mg PO BID #14 tab 03/20/19 Lactobacillus Acidophilus [Acidophilus] 1 tab PO DAILY #30 tab 03/20/19 The following prescriptions were given: Lactobacillus Acidophilus [Acidophilus] 1 tab PO DAILY #30 tab Transmission Status: Pending to [facility] Ciprofloxacin [Cipro] 500 mg PO BID #14 tab Transmission Status: Pending to [facility] Primary Care Physician: Jefferson Roman Chi, MD [Primary Care Provider] - Please follow up with your Primary Care Physician in: in 5-7 days Test Results: Test results from this visit will be discussed in further detail at your follow-up appointment, if applicable. Proposed Discharge Date: 03/20/19
--- NOTE | 2019-03-20 09:41 | DS.PCM_ITS ---
Discharge Date and Diagnosis - Problem List Patient Problems: Active and Suspected Problems (Last Reviewed 02/21/19 @ 14:21 by Fannie Osorio DO) Sepsis (Acute) Urinary tract infection (Acute) Encounter for central line placement (Acute) Date of Admission: 03/18/19 Date of Discharge: 03/20/19 - Primary Discharge Diagnosis Active and Suspected Problems (Last Reviewed 02/21/19 @ 14:21 by Fannie Osorio DO) Sepsis (Acute) Urinary tract infection (Acute) Encounter for central line placement (Acute) - Secondary Discharge Diagnosis Chronic Problems (Last Reviewed 02/21/19 @ 14:21 by Fannie Osorio DO) Unilateral primary osteoarthritis, right knee (Chronic) Chronic pain following surgery or procedure (Chronic) Morbid obesity with BMI of 45.0-49.9, adult (Chronic) ROXIE (obstructive sleep apnea) (Chronic) says she got off CPAP_ when she had gastric bypass surgery ......wieghed 248 after bypass and was up to 312 recently but, has been losing weight, unin tentional. 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 Retraction approximately 8 cm recommended. No acute pulmonary disease. Electronically Signed: Bobby Ramesh, at 2:46 EDT Tel , Service support , Chest X-Ray 03/18/19 03:02 IMPRESSION: Interval retraction of central line catheter with tip in the right atrium. The lungs remain clear. No other interval change. Electronically Signed: Bobby Ramesh, at 3:29 EDT Tel , Service support , Microbiology 03/18/19 02:50 Blood Culture (Wb) - Central Line Blood Culture - Preliminary Escherichia coli 03/18/19 02:35 Blood Culture (Wb) - Central Line Blood Culture - Preliminary No growth in 48 hours. 03/18/19 02:50 Urine Catheter - [place] Urine Culture - Final Presumptive E. coli Operations: None Summary of Care Provided: Patient is a 73-year-old lady who was brought to the emergency department assessment of sepsis secondary to UTI was made admitted to regular nursing floor for further management 1. Sepsis secondary to acute UTI ~ Started on cefazolin admitted to regular nursing floor cultures were sent whic h came back positive for E. coli both in the blood as well as urine. Patient was discharged home on ciprofloxacin based on sensitivity. Instructed to follow-up with PCP for subsequent care. ? 2. History of DVT on Eliquis did continue 3. Osteoporosis - vitamin D and Prolia 4. Morbid obesity ~ With a BMI of 47 patient was counseled on weight reduction 5. Peripheral neuropathy ~Patient is on gabapentin continued 6. Dyslipidemia ~patient is on statin therapy, continued at home dose 7. Osteoarthritis ~Pain treatment as needed 8. GERD ?Patient is on PPI continued 9. DVT prophylaxis ~Patient is on Eliquis Eliquis Patient Problems: Active and Suspected Problems (Last Reviewed 02/21/19 @ 14:21 by Fannie Osorio DO) Sepsis (Acute) Urinary tract infection (Acute) Encounter for central line placement (Acute) Objective: GENERAL: cooperative HEENT: Atraumatic; EYES; Anicteric, Normal Conjunctiva NECK; supple, normal thyroid, RESPIRATORY: Diminished to auscultation CARDIOVASCULAR: Regular S1 S2, GI: soft, non-tender, normoactive bowel sounds, : No Renal angle tenderness; EXTREMITIES: No edema, no clubbing, no cyanosis. NEURO: Awake; no lateralizing signs. SKIN: No Rash PSYCH; Normal affect - Physical Exam Vital Signs Temp Pulse Resp BP Pulse Ox 98.1 F 72 20 H 125/65 H 98 03/20/19 02:23 03/20/19 02:23 03/20/19 02:23 03/20/19 02:23 03/20/19 02:23 Oxygen Flow Rate (L/min) 1 Oxygen Delivery Method Room Air Weight: 129.274 kg Body Mass Index (BMI) 47.4 Intake and Output for Last 24 Hours 03/18/19 03/19/19 03/20/19 23:59 23:59 23:59 Intake Total 2780.00 / 3080.00 3925 / 4125 1403.33 / 1403.33 Output Total 350 / 350 350 / 350 1100 / 1100 Balance 2430.00 / 2730.00 3575 / 3775 303.33 / 303.33 Microbiology Past 72 Hours 03/18/19 02:50 Blood Culture - Preliminary Blood Culture (Wb) - Central Line Escherichia coli 03/18/19 02:35 Blood Culture - Preliminary Blood Culture (Wb) - Central Line No growth in 48 hours. 03/18/19 02:50 Urine Culture - Final Urine Catheter - [place] Presumptive E. coli Discharge Diet: 1800 Calorie Control Diet Discharge Activity: Return to Normal Activity, May not drive while taking narcotic pain medications. Home Medications: Medications to take at Discharge Cholecalciferol (VIT D3) [Vitamin D3] 1,000 unit PO DAILY 12/29/15 Duloxetine Hcl [Cymbalta] 60 mg PO DAILY 12/29/15 Gabapentin [Neurontin] 300 mg PO TID 12/29/15 Acetaminophen [Tylenol Tablet] 1,000 mg PO Q6H PRN PRN 12/30/16 Ascorbic Acid [Vitamin C] 500 mg PO BID 01/01/18 Omeprazole 40 mg PO BID 01/01/18 Divalproex Sodium [Depakote] 500 mg PO BID 08/05/18 Pravastatin [Pravachol] 40 mg PO QHS 08/05/18 Solifenacin Succinate [Vesicare] 10 mg PO QHS 08/05/18 Apixaban [Eliquis] 5 mg PO BID 03/18/19 Fluticasone 0.05% [Flonase Nasal [place]] 2 spray NASAL DAILY 03/18/19 Furosemide [Lasix] 40 mg PO DAILY 03/18/19 Guaifenesin Dm [Robitussin Dm] 10 ml PO Q4H PRN 03/18/19 Hydrocodone Bitart/Apap 5-325 [[place] 5/325] 1 tab PO Q8H PRN PRN 03/18/19 Primidone 50 mg PO QHS 03/18/19 SimETHICONE [Mylicon] 80 mg PO PCHS 03/18/19 Ciprofloxacin [Cipro] 500 mg PO BID #14 tab 03/20/19 Lactobacillus Acidophilus [Acidophilus] 1 tab PO DAILY #30 tab 03/20/19 Following Prescrptions Were Given to Patient: Lactobacillus Acidophilus [Acidophilus] 1 tab PO DAILY #30 tab Transmission Status: Pending to [facility] Ciprofloxacin [Cipro] 500 mg PO BID #14 tab Transmission Status: Pending to [facility] Primary Care Physician: Jefferson Roman Chi, MD [Primary Care Provider] - Please follow up with your Primary Care Physician in: in 5-7 days Disposition: Asstd Living/Non-Skill NH Minutes spent on discharge:: 35 Patient Condition:: Stable Medical Necessity - Tobacco Use Smoking Status: Never smoker Meaningful Use Info Meaningful Use Diagnoses (Choose all that apply): None applicable Code Visit Inpatient E&M: 85144 Disch Hosp
[2019-03-20] MEDS: Fluticasone 0.05% 1 SPRAY NASAL.SRY 2 SPRAY NASAL (10:39)
[2019-03-20] MEDS: DULoxetine Hcl 60 MG Capsule PO (10:39)
[2019-03-20] MEDS: Divalproex Sodium 250 MG Tablet 500 MG PO (10:40)
[2019-03-20] MEDS: APIXABAN 5 MG TABLET PO (10:40)
[2019-03-20] MEDS: Furosemide 40 MG Tablet PO (10:41)
[2019-03-20] MEDS: Pantoprazole Sodium 40 MG Tablet PO (10:41)
[2019-03-20 12:11] LABS: Bedside Glucose 82 mg/dL (70-110)
[2019-03-20 12:32] VITALS: BP 108/62; PULSE 77; RESP 18; TEMP 36.6; O2SAT 98
[2019-03-20 15:58] VITALS: BP 108/56; PULSE 81; RESP 18; TEMP 36.7; O2SAT 98
--- NOTE | 2019-03-22 11:18 | CASEMGMT ---
Social Work Note Pt discharged back to [facility] on 03/20. SW faxed discharge paperwork to pt's LANG Nicole and wrote on fax coversheet that pt was discharged on 03/20. Maria E Martinez ASSISTANT IN NURSING, FIELD CROP FARM WORKER
== END 2019-03-20 16:30 | disposition home or self-care (01) | DRG 872 ==
LOC: ED 01:46 → MS3 04:06
PROVIDERS: Admitting Provider Family Medicine; Emergency Provider Emergency Medicine; Family Provider Family Medicine Geriatric Medicine; PCP Family Medicine Geriatric Medicine; Visit Provider Internal Medicine
DX: A41.9 Sepsis, unspecified organism (principal); Z68.42 Body mass index [BMI] 45.0-49.9, adult; N39.0 Urinary tract infection, site not specified; G47.33 Obstructive sleep apnea (adult) (pediatric); E66.01 Morbid (severe) obesity due to excess calories; E11.42 Type 2 diabetes mellitus with diabetic polyneuropathy; B96.20 Unspecified Escherichia coli [E. coli] as the cause of diseases classified elsewhere; M81.0 Age-related osteoporosis without current pathological fracture; E78.5 Hyperlipidemia, unspecified; K21.9 Gastro-esophageal reflux disease without esophagitis; I10 Essential (primary) hypertension; Z98.84 Bariatric surgery status; Z79.01 Long term (current) use of anticoagulants; Z86.718 Personal history of other venous thrombosis and embolism; E28.2 Polycystic ovarian syndrome; M99.03 Segmental and somatic dysfunction of lumbar region; M99.02 Segmental and somatic dysfunction of thoracic region; M99.05 Segmental and somatic dysfunction of pelvic region; Z80.0 Family history of malignant neoplasm of digestive organs; Z82.49 Family history of ischemic heart disease and other diseases of the circulatory system; Z87.440 Personal history of urinary (tract) infections; Z90.710 Acquired absence of both cervix and uterus; Z96.659 Presence of unspecified artificial knee joint; M17.11 Unilateral primary osteoarthritis, right knee; Z66 Do not resuscitate
CPT/HCPCS: 36415; 36556; 51702; 71045; 80048; 80053; 81001; 82962; 83605; 85025; 87040; 87077; 87086; 87088; 87186; 97110; 97116; 97162; 97166; 97530; 99285; J7030; A4216

== ENCOUNTER 2019-05-24 08:30 | Day surgery (SDC) | payer MEDICARE, SELFPAY ==
[2019-03-22 08:52] VITALS: BMI 47.0
[2019-05-24 09:04] VITALS: BP 109/65; PULSE 72; RESP 15; TEMP 36.6; O2SAT 96; BMI 48.7
[2019-05-24] MEDS: Lactated Ringers 1,000 ML 100 ML IV (09:14)
[2019-05-24 09:21] LABS: Bedside Glucose 81 mg/dL (70-110)
--- NOTE | 2019-05-24 10:10 | RAD_ITS ---
STUDY: X-RAY - RIGHT KNEE REASON FOR EXAM: Female, 74 years old. Radiofrequency ablation of the right knee. TECHNIQUE: 7 intraoperative images of the knee. COMPARISON: None. FINDINGS: Intraoperative imaging provided for radiofrequency ablation of the knee joint. RAD/Knee 1 or 2 Views IMPRESSION: Intraoperative imaging provided for radiofrequency ablation. Electronically Signed: Joshua Rosario, at 14:02 EST , Service support ,
--- NOTE | 2019-05-24 10:13 | SUR.OPER ---
[id number] [place] Interventional Spine Console Sai Parker
[2019-05-24] MEDS: MethylPREDNISolone Acetate 80 MG/ML Vial (10:14)
[2019-05-24] MEDS: Bupivacaine 0.25% 30 ML Vial (10:14)
[2019-05-24 10:40] VITALS: BP 109/65; BP 132/66; PULSE 73; RESP 14; TEMP 36.3; O2SAT 99
[2019-05-24 10:45] VITALS: BP 109/65; BP 135/62; PULSE 70; RESP 16; O2SAT 98
[2019-05-24 10:50] VITALS: BP 109/65; BP 136/63; PULSE 71; RESP 16; O2SAT 96
[2019-05-24 10:56] VITALS: BP 109/65; BP 144/67; PULSE 68; RESP 16; TEMP 36.3; O2SAT 97
[2019-05-24 11:11] VITALS: BP 109/65
--- NOTE | 2019-05-24 12:05 | OP.PCM_ITS ---
Report of Operation Date of Procedure: 05/24/19 Description of Surgical Findings:: PREOPERATIVE DIAGNOSIS: Osteoarthritis of the right knee, chronic postoperative knee pain POSTOPERATIVE DIAGNOSIS: Osteoarthritis of the right knee, chronic postoperative knee pain PROCEDURE PERFORMED: Right knee radiofrequency ablation of superomedial, superolateral, and inferomedial genicular nerves under fluoroscopy guidance. ANESTHESIA: MAC. BLOOD LOSS: Minimal. COMPLICATIONS: None. DESCRIPTION OF PROCEDURE: History and physical of today was reviewed. Risks and benefits of the procedure were explained. The patient understood and agreed to proceed. Informed consent was obtained. IV inserted per routine protocol. The patient was taken to the operating room and placed in the supine position. The right knee was prepped and draped in a sterile fashion using iodine x3. Under fluoroscopy guidance on AP view, the right knee was visualized. The skin and subcutaneous tissue was anesthetized with approximately 15 mL of 1% li docaine using a 22-gauge 10 cm with a 10 mm curved active tip radiofrequency ablation needle at the vicinity of the superomedial, superolateral, and inferomedial genicular nerves. Under direct visualization of fluoroscopy on AP view as well as lateral view, starting on the right superomedial, ending on the right inferomedial, passing through the right superolateral genicular nerves, the needle was passed through the skin. The tip of the needle was maneuvered and directed towards the diaphyseal junction of each corresponding nerve. Once tip of the needle was in the vicinity of the diaphysis and in contact with the bone, after confirmation on AP as well as lateral view and repeated negative aspiration for blood the radiofrequency ablation probe was inserted at each level impedance was recorded at the superior medial 221 oh at the superior lateral 330 at the inferior medial 260, motor evoked potential was then initiated to 1.5 V without any motor response at each corresponding level the probes were then removed intact and after negative aspiration for blood a total of 6 cc of preservative-free 1% lidocaine were injected in divided doses between those 3 levels the radiofrequency ablation probe was then reinserted after repeated confirmation AP as well as lateral view radiofrequency ablation was then initiated to 80 ?C for 90 seconds at each level, a total of 3 mL of preservative-free 0.25% Marcaine with 40 mg of Depo-Medrol was injected in divided doses between those three levels. The needles were then removed intact. The patient experienced no sign or symptoms of intravascular injection. The patient experienced no paresthesia. The procedure was completed without any apparent difficulty or any complications. The patient appeared to tolerate it well. ASSESSMENT AND PLAN: This is a 74-year-old female with osteoarthritis of the right knee chronic postoperative knee pain status post right knee radiofrequency ablation of the superior medial, superior lateral, inferior medial genicular nerve under fluoroscopic guidance patient will continue his current medications patient found approximately 2 weeks for reevaluation.
== END 2019-05-24 11:36 | disposition home or self-care (01) ==
LOC: SDC 08:30 → AC 08:31
PROVIDERS: Family Provider Family Medicine Geriatric Medicine; PCP Family Medicine Geriatric Medicine; Referring Provider Anesthesiology Pain Medicine; Visit Provider Anesthesiology Pain Medicine
PROC: (CPT 64640; principal; 2019-05-24 10:05)
DX: M17.11 Unilateral primary osteoarthritis, right knee (principal); F41.9 Anxiety disorder, unspecified; M47.817 Spondylosis without myelopathy or radiculopathy, lumbosacral region; M51.37 Other intervertebral disc degeneration, lumbosacral region; M46.96 Unspecified inflammatory spondylopathy, lumbar region; Z79.891 Long term (current) use of opiate analgesic; M54.17 Radiculopathy, lumbosacral region; Z96.653 Presence of artificial knee joint, bilateral; G89.28 Other chronic postprocedural pain
CPT/HCPCS: 01991; 64640; 73560; 76000; 82962; J7120

== ENCOUNTER → 2019-08-02 13:51 | Outpatient (CLI) | payer MEDICARE, SELFPAY ==
--- NOTE | 2019-08-02 13:56 | US_ITS ---
STUDY: SUPERFICIAL ULTRASOUND - LEFT LEG REASON FOR EXAM: Female, 74 years old. LT POST LEG MASS TECHNIQUE: A superficial ultrasound was performed with real-time and static golden-scale imaging. COMPARISON: None. FINDINGS: There is a large area of diffuse edematous changes noted extending approximately 13.9 x 11.5 x 7.5 cm without well-defined cystic or solid mass. US/Ext Non Vasc Limited/Soft Tiss IMPRESSION: Large area of diffuse edematous changes without well-defined cystic or solid mass. MRI may be helpful for more definitive evaluation if clinically warranted Electronically Signed: Loi Warner MD at 17:01 EST , Service support ,
== END ==
PROVIDERS: PCP Family Medicine Geriatric Medicine; Referring Provider Family Medicine; Visit Provider Family Medicine
DX: R22.42 Localized swelling, mass and lump, left lower limb (principal)
CPT/HCPCS: 76882

== ENCOUNTER → 2019-08-26 10:46 | Outpatient (CLI) | payer MEDICARE, MEDICAID, SELFPAY ==
--- NOTE | 2019-08-26 10:51 | MRI_ITS ---
STUDY: MRI LOWER EXTREMITY LEFT THIGH WITH AND WITHOUT CONTRAST REASON FOR EXAM: Left thigh mass at skin marker. TECHNIQUE: Standardized fat and water weighted pulse sequences were obtained in all 3 orthogonal planes before and after intravenous administration of 25 mL of Dotarem. COMPARISON: Ultrasound 08/02/2019. FINDINGS: There is edema in the subcutis adipose space greatest at the posterior aspect with posterior skin thickening (inversion recovery axial images 6-34) corresponding to the skin marker (T1 axial image 9). There is no discrete soft tissue mass or fluid collection. There is no demonstrated contrast enhancement. There is no intramuscular edema or mass in the visualized muscles of the distal thigh. There is artifact from left total knee arthroplasty. There is no bone edema of the visualized femur. MRI/Lower Ext No Joint W/WO Cont IMPRESSION: Edema in the subcutis adipose space with posterior skin thickening without discrete soft tissue mass or fluid collection. Electronically Signed: Faraz Craig MD at 13:22 EST Tel , Service support ,
--- NOTE | 2019-08-26 13:08 | RAD_ITS ---
STUDY: X-RAY - PELVIS AND RIGHT HIP REASON FOR EXAM: Right hip joint pain. TECHNIQUE: 2 views of the pelvis and hip. COMPARISON: Radiographs 05/28/2018. FINDINGS: Normal visualized soft tissue structures. Normal bilateral iliac wings, sacroiliac joints and visualized sacrum. Normal bilateral superior and inferior pubic rami. Normal pubic symphysis. Normal bilateral ischial tuberosities. Normal visualized femoral head. There are marginal osteophytes, subchondral cystic change of the acetabulum and joint space narrowing of the right hip joint, especially at the medial aspect, similar to the prior study. RAD/HIP, UNI W/ Pelvis 2-3 Views IMPRESSION: Right hip arthrosis. Electronically Signed: Faraz Craig MD at 13:48 EST Tel , Service support ,
== END ==
LOC: MRI 10:48 → RAD 13:01
PROVIDERS: PCP Family Medicine; Referring Provider Family Medicine; Visit Provider Nurse Practitioner Family
DX: R22.42 Localized swelling, mass and lump, left lower limb (principal); M25.551 Pain in right hip
CPT/HCPCS: 73502; 73720; A9575

== ENCOUNTER 2019-08-27 20:21 | Emergency (ER) | payer MEDICARE, SELFPAY ==
[2019-08-27 20:22] VITALS: BP 151/67; PULSE 71; RESP 16; TEMP 36.7; O2SAT 98; BMI 50.0
--- NOTE | 2019-08-27 20:37 | CT_ITS ---
STUDY: CT ABDOMEN AND PELVIS WITHOUT CONTRAST REASON FOR EXAM: Female, 74 years old. Right flank pain and hematuria RADIATION DOSAGE (If Supplied By Facility): CTDIvol = ( 14.80 ) mGy, DLP = ( 766.75 ) mGycm TECHNIQUE: Transaxial images were obtained from the dome of the diaphragm to the symphysis pubis without oral contrast, and without intravenous contrast. Sagittal and coronal images were reconstructed. Individualized dose optimization techniques were used for this CT. COMPARISON: 16 January 2018 FINDINGS: Lung bases are clear. There is a small hiatal hernia. There is gastric bypass surgery. Gallbladder is surgically removed. There is no intestinal obstruction. There is ventral abdominal hernia with a wide diastases recti. There is a 3 mm stone in the right ureterovesical junction without hydronephrosis. There are no additional urinary calculi. Left collecting system is clear. There is mildly lobulated contour of the left kidney, possibly small exophytic cysts. Pancreas, adrenals and liver are intact. Gallbladder is removed. IVC filter is in place. CT/Abdomen/Pelvis without Cont IMPRESSION: 3 mm right ureteropelvic junction stone without hydronephrosis. Postsurgical changes. Diastases recti/ventral abdominal hernia. Electronically Signed: Gina Guido, at 21:56 EST Tel , Service support ,
[2019-08-27] MEDS: 0.9% Normal Saline 1,000 ML 150 ML IV (21:09)
[2019-08-27 21:13] LABS: Mucous, Urine 0 SEEN /hpf (<or=2+)
[2019-08-27 21:15] LABS: Absolute Lymphocyte Count 1.81 X10^3/uL (0.83-4.51); Absolute Neutrophil Count 2.7 X10^3/uL (2.0-7.7); Basophil# 0.04 X10^3/uL; Basophil% 0.8 % (0-1); Eosinophil# 0.14 X10^3/uL; Eosinophils% 2.6 % (0-5); Hematocrit 36.7 % (37-47); Hemoglobin 11.9 g/dL (12.0-15.0); Lymphocyte # 1.81 X10^3/ul (4.0); Lymphocyte % 34.1 % (19-41); Mean Corp Hgb Conc 32.4 g/dL (32-36); Mean Corpuscular Hgb 30.4 pg (27.0-32.0); Mean Corpuscular Volume 93.9 fL (81-99); Mean Platelet Vol. 10.3 fl (6.2-12.0); Monocyte# 0.62 X10^3/uL; Monocyte% 11.7 % (0-10); NRBC Flagged by Analyzer 0 % (0-5); Neutrophil # 2.68 X10^3/uL (2.7-7.7); Neutrophil % 50.4 % (47-70); Platelet Count 207 K/mm3 (150-450); RBC Distribution Width CV 13.4 % (11.6-14.6); RBC Distribution Width SD 45.9 fl (35.1-43.9); Red Blood Count 3.91 M/mm3 (4.2-5.4); White Blood Count 5.3 K/mm3 (4.4-11.0)
[2019-08-27 21:29] LABS: Color, Urine Yellow (Yellow); Glucose, Dipstick Normal (Normal); Ketone-Dipstick Negative (Negative); Leukocyte Esterase-Dipstick 500 /ul (Negative); Nitrite-Dipstick Positive (Negative); Occult Blood-Urine 250 /ul (Negative); Protein-Dipstick 30 mg/dl (Negative); Urine Bilirubin Dipstick Negative (Negative); Urine Clarity Sl. Cloudy (Clear); Urine Urobilinogen Normal (Normal)
[2019-08-27 21:32] LABS: Anion Gap 8 (5-15); BUN 25 mg/dL (7-18); BUN/Creat Ratio 31.1 RATIO (10-20); Calcium,Total 8.3 mg/dL (8.5-10.1); Chloride 107 mmol/L (98-107); EST Glomerular Filtration Rate 74 mL/min (>60); Est Glom Filt Rate - Afr Amer 90 mL/min (>60); Estimated Creatinine Clearance 56.36 ml/min; Glucose 89 mg/dL (74-106); Potassium 4.4 mmol/L (3.5-5.1); Sodium Level 141 mmol/L (136-145)
[2019-08-27 21:42] LABS: Bacteria 3+ /hpf (None Seen)
[2019-08-27 21:43] LABS: Red Blood Cells-Urine 50-100 SEEN /hpf (0-5); White Blood Cells 0-5 SEEN /hpf (0-5)
[2019-08-27 21:44] LABS: Calcium Oxalate Crystals Ur RARE /hpf (<or=2+); Squamous Epithelial Cells - UA 5-10 SEEN /hpf (5-10); Transitional Epithelial - Ur 0-5 SEEN /hpf (0-5)
--- NOTE | 2019-08-27 22:36 | ED.DCSUM_ITS ---
- ER Visit Summary Date of Service: 08/27/19 Chief Complaint: [Hematuria and right flank pain] History of Present Illness: The patient is a 74 F [presents to the emergency department with blood in her urine that she noticed today in the morning. Patient is currently on Eliquis for history of DVT. Patient states that the hematuria cleared up throughout the day but had again this evening and she also developed right-sided flank pain this evening. Patient has had history of kidney stones in the past. She denies any fevers. She denies any dysuria or urgency or frequency. Patient has history of diabetes, UTI history, and DVT history. Patient has had prior cholecystectomy and hysterectomy. Patient has had prior gastric bypass.] Patient currently rates her pain a 3 out of 10. Physical Examination: [HEENT-PERRLA, EOMI. Cranial nerves II through XII grossly intact. TMs clear. Mucous membranes moist. No adenopathy. Cardiovascular-regular rate and rhythm without murmur or ectopy Lungs-clear to auscultation, chest wall stable without crepitus or subcu emphysema Abdomen-normoactive bowel sounds, soft. Patient has some mild tenderness over the right lower quadrant. Patient has CVA tenderness on the right. There is no rebound, rigidity, or peritoneal signs. Extremities-intact ?4, normal range of motion, normal pulses, atraumatic] Test Results: [CBC with differential obtained showed a white of 5.3, hemoglobin 11.9, hematocrit 37, platelet 207. Chemistries unremarkable. BUN was 25 and creatinine 0.8. Urinalysis showed positive nitrites as well as 0-5 WBCs and 50- 100 RBCs. Patient had +[address] scan of the abdomen pelvis showed a 3 mm stone at the right UPJ with hydro-ureter.] Emergency Department Course and Treatment: [Patient denies anything for pain initially in the emergency department.] Treatment Plan: [Patient will be given urine strainers. She is advised to follow-up with her urologist within next 3 to 5 days. Given the size of the stone chances are good that she can pass this on her own. Patient will be treated with Bactrim for 3 days. Patient advised to return if worsening pain, fever, vomiting, or condition worsen anyway.] Disposition: [Discharged home in stable condition] Impression: [Kidney stone with colic] This note was generated with Dragon dictation software. It may contain incorrect words, spelling, and punctuation that were not noted in review of the chart prior to signing ED Disposition - Plan for ED Patient: Referrals: Gonzales Pinto MD [Primary Care Provider] -
--- NOTE | 2019-08-27 22:39 | ED.DEP ---
ED Disposition - Plan for ED Patient: Instructions: KIDNEY STONE w/ Colic, Hematuria Prescriptions: Smz/Tmp Ds [Bactrim Ds] 1 tab PO BID #6 tab Prescription Printed Referrals: Gonzales Pinto MD [Primary Care Provider] - Alejandra Villavicencio MD [STAFF PHYSICIAN] - 3-5 Days
[2019-08-27] MEDS: Smz/Tmp Ds Tablet 1 TABLET PO (22:48)
[2019-08-27 22:59] VITALS: RESP 18
== END 2019-08-27 23:00 | disposition home or self-care (01) ==
LOC: ED 21:09
PROVIDERS: Emergency Provider Emergency Medicine; PCP Family Medicine
DX: N20.2 Calculus of kidney with calculus of ureter (principal); E11.9 Type 2 diabetes mellitus without complications; K43.9 Ventral hernia without obstruction or gangrene; Z79.01 Long term (current) use of anticoagulants; Z86.718 Personal history of other venous thrombosis and embolism; Z87.440 Personal history of urinary (tract) infections; Z87.442 Personal history of urinary calculi; Z90.49 Acquired absence of other specified parts of digestive tract; Z98.84 Bariatric surgery status
CPT/HCPCS: 74176; 80048; 81001; 85025; 96360; 96361; 99285; J7030; A4216

== ENCOUNTER 2019-09-23 16:34 | Emergency (ER) | payer MEDICARE, MEDICAID, SELFPAY ==
[2019-09-23 16:37] VITALS: BP 118/78; PULSE 66; RESP 20; TEMP 36.8; O2SAT 97; O2SAT 98; BMI 50.3
--- NOTE | 2019-09-23 17:19 | ED.DCSUM_ITS ---
- ER Visit Summary Date of Service: 09/23/19 Chief Complaint: Nonproductive cough and right flank pain History of Present Illness: The patient is a 74 F history of high cholesterol, kidney stone and blood clots on Eliquis. Patient states that she had a cough for last 2 days. Gradual onset with right flank pain. She lives at assisted living in an [facility]. Today fell off the toilet and hit her right side of her back. Did not hit her head. There is no headache or head pain. Also states she is had a fever and chills. Denies any chest pain. No hemoptysis. Denies any dysuria. Physical Examination: Older female no acute distress vital signs stable afebrile. Pulse ox 90% room air no signs hypoxia. H EENT exam unremarkable. Neck nontender no lymphadenopathy. Lungs clear to auscultation bilaterally. Heart regular rate and rhythm no murmur rate about 65. Anterior chest wall nontender. Abdomen soft nontender normal bowel sounds no peritoneal signs. Remedies moves all 4. Equal symmetrical premix concrete batcher strength. Lower extremities both are wrapped. She has chronic edema. Dorsi plantarflexion intact. Hips are nontender. No shortening or rotation. Back she has reproducible right posterior lower rib cage tenderness. There is no ecchymosis or bruising no subcu air or crepitance. Spine nontender left side nontender. Neurologically she is awake alert with no focal motor deficits. Test Results: CBC white count 3.7. Hemoglobin 10.3 which is her baseline chronic anemia. No bands. Chemistries unremarkable normal creatinine gap. UA normal. No nitrates, white cells or bacteria. Chest x-ray cardiomegaly otherwise no acute process read by myself and the radiologist portable 1 view. Repeat exam the patient is doing well at 1849. No new findings on exam. She and I went over all of her tests. Patient feels weak. Nurses got her up and were able to ambulate her. director of residential services is going to evaluate her and talk also with the group home to see if it would be possible to transfer from assisted living to higher level of care. Emergency Department Course and Treatment: Older female with a cough rule out respiratory tract infection viral versus bacterial. Also she fell off the toilet. And she has right flank pain. Treatment Plan: Discharged back to assisted living. Follow-up with your primary care physician. Return if worse. Disposition: Discharge Impression: Acute nonproductive cough (viral URI) Acute right flank pain of uncertain etiology Acute fall This note was generated with Virtual Bridges dictation software. It may contain incorrect words, spelling, and punctuation that were not noted in review of the chart prior to signing ED Disposition - Plan for ED Patient: Disposition: Home or Assisted Living Instructions: ED URI Viral Referrals: Gonzales Pinto MD [Primary Care Provider] - 3-5 Days Additional Instructions: Follow-up with your doctor.
[2019-09-23 17:59] LABS: Bacteria 0 SEEN /hpf (None Seen); Mucous, Urine 0 SEEN /hpf (<or=2+); Red Blood Cells-Urine 0 SEEN /hpf (0-5); White Blood Cells 0 SEEN /hpf (0-5)
[2019-09-23 18:07] LABS: Color, Urine Yellow (Yellow); Glucose, Dipstick Normal (Normal); Ketone-Dipstick Negative (Negative); Leukocyte Esterase-Dipstick Negative /ul (Negative); Nitrite-Dipstick Negative (Negative); Occult Blood-Urine Negative /ul (Negative); Protein-Dipstick Negative (Negative); Specific Gravity, Urine 1.015 (1.002-1.030); Urine Bilirubin Dipstick Negative (Negative); Urine Clarity Clear (Clear); Urine Urobilinogen Normal (Normal)
[2019-09-23 18:12] LABS: Absolute Lymphocyte Count 1.19 X10^3/uL (0.83-4.51); Absolute Neutrophil Count 1.6 X10^3/uL (2.0-7.7); Basophil# 0.04 X10^3/uL; Basophil% 1.1 % (0-1); Eosinophil# 0.04 X10^3/uL; Eosinophils% 1.1 % (0-5); Hematocrit 36.8 % (37-47); Hemoglobin 11.3 g/dL (12.0-15.0); Lymphocyte # 1.19 X10^3/ul (4.0); Lymphocyte % 32.3 % (19-41); Mean Corp Hgb Conc 30.7 g/dL (32-36); Mean Corpuscular Hgb 29.2 pg (27.0-32.0); Mean Corpuscular Volume 95.1 fL (81-99); Mean Platelet Vol. 10.1 fl (6.2-12.0); Monocyte% 21.7 % (0-10); NRBC Flagged by Analyzer 0 % (0-5); Neutrophil # 1.58 X10^3/uL (2.7-7.7); Platelet Count 173 K/mm3 (150-450); RBC Distribution Width CV 13.5 % (11.6-14.6); RBC Distribution Width SD 47.3 fl (35.1-43.9); Red Blood Count 3.87 M/mm3 (4.2-5.4); White Blood Count 3.7 K/mm3 (4.4-11.0)
[2019-09-23] MEDS: 0.9% Normal Saline 1,000 ML 1000 ML IV (18:15)
[2019-09-23 18:16] LABS: Squamous Epithelial Cells - UA 0-5 SEEN /hpf (5-10)
[2019-09-23 18:19] LABS: Anion Gap 5 (5-15); BUN 21 mg/dL (7-18); BUN/Creat Ratio 22.3 RATIO (10-20); Calcium,Total 8.4 mg/dL (8.5-10.1); Chloride 106 mmol/L (98-107); Creatinine, Serum 0.94 mg/dL (0.55-1.02); EST Glomerular Filtration Rate 62 mL/min (>60); Est Glom Filt Rate - Afr Amer 75 mL/min (>60); Estimated Creatinine Clearance 47.96 ml/min; Glucose 79 mg/dL (74-106); Potassium 4.2 mmol/L (3.5-5.1); Sodium Level 140 mmol/L (136-145)
--- NOTE | 2019-09-23 18:24 | RAD_ITS ---
STUDY: X-RAY CHEST REASON FOR EXAM: Female, 74 years old. Fever TECHNIQUE: Frontal view COMPARISON: None. FINDINGS: The lungs are expanded. Mild interstitial prominence. Mild cardiomegaly. Normal mediastinum and epifanio. Normal visualized pulmonary arteries. Normal visualized aortic arch and descending thoracic aorta. Normal visualized thoracic spine. Normal visualized ribs, clavicles, and shoulders. There is no demonstrated abnormality of the visualized soft tissue structures of the upper abdomen. RAD/Chest 1 View (Portable) IMPRESSION: Mild interstitial prominence. Cardiomegaly. Electronically Signed: Masood Faulkner DO at 18:47 EDT Tel [phone], Service support ,
--- NOTE | 2019-09-23 18:55 | ED.DEP ---
ED Disposition - Plan for ED Patient: Disposition: Home or Assisted Living Instructions: ED URI Viral Referrals: Gonzales Pinto MD [Primary Care Provider] - 3-5 Days Additional Instructions: Follow-up with your doctor.
[2019-09-23 19:41] VITALS: BP 144/96; PULSE 68; PULSE 69; RESP 17; RESP 18; TEMP 36.5; O2SAT 97; O2SAT 98
[2019-09-23] MEDS: oxyCODONE 5 MG Tablet PO (20:07)
--- NOTE | 2019-09-23 20:26 | ED.RN ---
pt reports feeling to weak to be able to go back to assisted living. dr soler was made aware. a two person assist test walk was performed with myself and Teofilo Elliott. pt was steady continued to state that she felt to weak to return to [facility]. pt's spo2 after the test walk was 98%. dr. soler made aware, brigida from social work was informed of pt's situation and is attempting to see if the pt could be moved over the care center
--- NOTE | 2019-09-23 20:33 | CM.ED ---
SOCIAL WORK INFORMANT: RNLOREN REASON FOR REFERRAL: DISCHARGE PLANNING UPDATED BY LOREN MALIK PATIENT HAS BEEN DISCHARGED AND DOES NOT FEEL STRONG ENOUGH TO RETURN TO ASSISTED LIVING. CALL TO NURSE PAOLA TO HAVE DIRECTORMALENA CALL THIS WORKER. RECEIVED CALL FROM WALT MACARIO DIRECTORMALENA WHO REPORTS PATIENT ABLE TO RETURN TO ASSISTED LIVING THIS EVENING AND WILL WORK ON TRANSFER TO [facility] TOMORROW. UPDATED STAFF ON THE ABOVE. NURSE TO UPDATE PATIENT. WILL REMAIN AVAILABLE FOR NEEDS. Juanita LIM, COATING AND EMBOSSING UNIT OPERATOR, ANTI AIR WARFARE OPERATIONS OFFICER.
== END 2019-09-23 21:31 | disposition home or self-care (01) ==
PROVIDERS: Emergency Provider Emergency Medicine; PCP Family Medicine
DX: J06.9 Acute upper respiratory infection, unspecified (principal); R10.9 Unspecified abdominal pain; W18.11XA Fall from or off toilet without subsequent striking against object, initial encounter; E78.00 Pure hypercholesterolemia, unspecified; Z79.01 Long term (current) use of anticoagulants; Z87.442 Personal history of urinary calculi; Z86.718 Personal history of other venous thrombosis and embolism; I51.7 Cardiomegaly
CPT/HCPCS: 71045; 80048; 81001; 85025; 96360; 99285; J7030; P9612; A4216

== ENCOUNTER 2019-10-25 05:56 | Emergency (ER) | payer MEDICARE, MEDICAID, SELFPAY ==
[2019-10-25 05:57] VITALS: BP 153/100; PULSE 90; RESP 16; TEMP 36.7; O2SAT 96; BMI 47.5
[2019-10-25 06:00] VITALS: BP 160/77
--- NOTE | 2019-10-25 06:25 | CT_ITS ---
STUDY: CT CERVICAL SPINE WITHOUT CONTRAST REASON FOR EXAM: Female, 74 years old. Pain after falling. TECHNIQUE: High resolution transaxial imaging was performed without contrast material. Sagittal and coronal images were reconstructed. Individualized dose optimization techniques were used for this CT. COMPARISON: 02/21/2019 CT cervical spine. FINDINGS: No fracture or dislocation of the cervical spine. Alignment anatomic. Multilevel degenerative changes but no evidence of high-grade spinal canal narrowing. No acute findings in the paraspinal soft tissues. No prevertebral hematoma. Mild emphysema lung apices. Calcific atherosclerosis. CT/Spine Cervical without Contras IMPRESSION: No fracture or dislocation of the cervical spine. Electronically Signed: Philip Da Silva, at 7:34 EDT Tel , Service support ,
--- NOTE | 2019-10-25 06:25 | CT_ITS ---
STUDY: CT BRAIN WITHOUT CONTRAST REASON FOR EXAM: Female, 74 years old. Pain after falling. TECHNIQUE: Transaxial CT imaging of the brain was performed without administration of intravenous contrast material. Individualized dose optimization techniques were used for this CT. COMPARISON: 02/21/2019 CT brain. FINDINGS: No evidence of intracranial hemorrhage, mass, acute infarct, or hydrocephalus. Chronic calcification in the right cerebral peduncle extending toward the thalamus, unchanged. Chronic microangiopathic changes in the white matter. Atherosclerosis of the intracranial arteries. No skull fracture or acute osseous abnormality. Chronic left sphenoid sinusitis and partial opacification left mastoid tip, unchanged. Right preorbital soft tissue swelling. CT/Brain/Head without Contrast IMPRESSION: No evidence of intracranial injury or skull fracture. Electronically Signed: Philip Da Silva, at 7:31 EDT Tel , Service support ,
--- NOTE | 2019-10-25 06:26 | RAD_ITS ---
STUDY: X-RAY - RIGHT KNEE REASON FOR EXAM: Pain with limited range of motion, fall. TECHNIQUE: 2 view(s) of the knee. COMPARISON: Radiographs 05/28/2018. FINDINGS: There is a right total knee arthroplasty without interval change. The soft tissue structures are unremarkable. RAD/Knee 1 or 2 Views IMPRESSION: Uncomplicated right total knee arthroplasty. Electronically Signed: Faraz Craig MD at 7:52 EDT Tel , Service support ,
--- NOTE | 2019-10-25 06:29 | ED.DCSUM_ITS ---
- ER Visit Summary Date of Service: 10/25/19 Chief Complaint: Fall History of Present Illness: The patient is a 74 F who presents after a fall that occurred today. Patient states that she was going to get out of bed to use the restroom when she fell out of bed today. Patient hit her head on the nightstand . Patient denies any loss of consciousness. Patient states she was unable to ambulate after the fall. Patient states she also fell yesterday getting out of her daughter's car and landed on her right knee. Patient states that today her right knee pain is worse after the fall again this morning. Patient describes her pain as sharp. Patient states her pain is worse with any movement. Patient states her right knee feels weak due to the pain. Patient states she is on Eliquis for DVT. Physical Examination: Vital signs are stable. Patient is afebrile. Patient is in no acute distress. There is edema and ecchymosis over the right periorbital area. There is a superficial abrasion over the right side of the bridge of the nose. There is no active bleeding. There is no gapping of the wound margins. There is no bony crepitance or step-off. Pupils are equal, round, and reactive to light bilaterally. Extraocular muscles are intact. Conjunctiva is clear. Oral mucosa is pink and moist. Neck is supple. Trachea is midline. There is no JVD. There is tenderness over the cervical spine paraspinal muscles. Heart was regular rate and rhythm. Lungs are clear and equal bilaterally. Abdomen is soft and nontender. Cranial nerves II through XII are intact. There are no focal motor or sensory deficits noted. There is mild tenderness over the right knee. There is no effusion. There is no edema or ecchymosis. Extensor mechanism is intact. Range of motion was limited in all motions of the right knee secondary to pain. Test Results: CT scan of the brain and cervical spine was obtained. X-rays of the right knee were obtained. CBC, metabolic profile, PT with INR, and PTT were ordered. Emergency Department Course and Treatment: Patient was given a tetanus booster here. Patient was given a dose of morphine here. Disposition: Care of the patient was turned over to the oncoming physician pending results. Impression: 1. Closed head injury 2. Right knee contusion This note was generated with World BXation software. It may contain incorrect words, spelling, and punctuation that were not noted in review of the chart prior to signing ED Disposition - Plan for ED Patient: Referrals: Gonzales Pinto MD [Primary Care Provider] -
--- NOTE | 2019-10-25 06:32 | ED.RN ---
grand daughter called and updated on patient status and condition at this time [phone]
[2019-10-25] MEDS: Morphine 4 MG/ML Syringe IV (06:42)
[2019-10-25 06:53] LABS: Absolute Lymphocyte Count 1.31 X10^3/uL (0.83-4.51); Absolute Neutrophil Count 3.5 X10^3/uL (2.0-7.7); Basophil# 0.04 X10^3/uL; Basophil% 0.7 % (0-1); Eosinophil# 0.25 X10^3/uL; Eosinophils% 4.4 % (0-5); Hematocrit 37.9 % (37-47); Hemoglobin 12.3 g/dL (12.0-15.0); Lymphocyte # 1.31 X10^3/ul (4.0); Lymphocyte % 22.9 % (19-41); Mean Corp Hgb Conc 32.5 g/dL (32-36); Mean Corpuscular Hgb 30.6 pg (27.0-32.0); Mean Corpuscular Volume 94.3 fL (81-99); Mean Platelet Vol. 9.8 fl (6.2-12.0); Monocyte# 0.61 X10^3/uL; Monocyte% 10.7 % (0-10); NRBC Flagged by Analyzer 0 % (0-5); Neutrophil # 3.47 X10^3/uL (2.7-7.7); Neutrophil % 60.8 % (47-70); Platelet Count 169 K/mm3 (150-450); RBC Distribution Width CV 13.8 % (11.6-14.6); RBC Distribution Width SD 47.1 fl (35.1-43.9); Red Blood Count 4.02 M/mm3 (4.2-5.4); White Blood Count 5.7 K/mm3 (4.4-11.0)
[2019-10-25 07:04] LABS: International Normalized Ratio 1.2; Prothrombin Time (Protime)PT. 14.5 SECONDS (11.7-14.9)
[2019-10-25 07:05] LABS: Partial Thromboplast Time 35.5 Seconds (24.1-36.2)
[2019-10-25 07:12] LABS: Anion Gap 6 (5-15); BUN 18 mg/dL (7-18); BUN/Creat Ratio 20.2 RATIO (10-20); Calcium,Total 8.9 mg/dL (8.5-10.1); Chloride 108 mmol/L (98-107); Creatinine, Serum 0.89 mg/dL (0.55-1.02); EST Glomerular Filtration Rate 66 mL/min (>60); Est Glom Filt Rate - Afr Amer 80 mL/min (>60); Estimated Creatinine Clearance 50.66 ml/min; Glucose 111 mg/dL (74-106); Potassium 3.6 mmol/L (3.5-5.1); Sodium Level 140 mmol/L (136-145)
[2019-10-25] MEDS: Diphth,Pertuss(Acell),Tet Vac 0.5 ML Vial IM (07:30)
[2019-10-25] MEDS: HYDROmorphone 0.5 MG/0.5 ML SYRINGE IV (07:55)
[2019-10-25 08:00] VITALS: BP 108/61; PULSE 89; RESP 14; O2SAT 94
--- NOTE | 2019-10-25 11:00 | CM.ED ---
Addendum entered by Sally Lim 10/25/19 13:52: MESSAGE WAS LEFT FOR CHARY TERRELL REGARDING PATIENT'S ED VISIT AND NEEDS AT HOME. NO ANSWER, LEFT MESSAGE. Original Note: SOCIAL WORK INFORMANT: DR. RODRIGUEZ REASON FOR REFERRAL: DISCHARGE PLANNING MET WITH PATIENT IN ROOM. INTRODUCED ROLE AND REASON FOR REFERRAL. PATIENT REPORTS IS STAYING WITH GRANDDAUGHTER AND WILL BE EVENTUALLY RETURNING TO ASSISTED LIVING AT [facility]. PATIENT STATES IS STAYING WITH GRANDDAUGHTER DUE TO PANDEMIC. PATIENT REPORTS HAS BEEN FALLING. PATIENT POINTED TO BLACK EYE FROM FALL REPORTING TO HAVE FALLEN OUT OF BED. PATIENT STATES HAS A PACKAGE CAR DRIVER THROUGH [facility], CHARY TERRELL AND PLANS TO CALL HER DUE TO NEEDING ADDITIONAL HELP. PATIENT GAVE PERMISSION FOR THIS WORKER TO CALL GRANDDAUGHTER, JASON TO DISCUSS DISCHARGE PLAN. CALL TO PATIENT'S GRANDDAUGHTER, JASON CERDA. JASON REQUESTING TO CONFERENCE IN HER MOTHERDAMON PATIENT'S DAUGHTER/HPOA INTO CALL WITH THIS WORKER. DAUGHTER AND GRANDDAUGHTER DISCUSSED FRUSTRATION WITH PATIENT'S SELF LIMITING BEHAVIORS. GRANDDAUGHTER REPORTS HER DAUGHTER HAS BEEN HELPING PATIENT WITH NEEDS. PATIENT'S DAUGHTER OPEN TO HOME HEALTH REFERRAL FOR PHYSICAL THERAPY AND AIDE IF INSURANCE WILL ALLOW. DAUGHTER STATING UNSURE IF INSURANCE WILL COVER P.T. AND AIDE. THIS WORKER TO MAKE REFERRAL TO [facility]. ALL QUESTIONS ANSWERED AND SUPPORT PROVIDED. PLAN: HOME WITH GRANDDAUGHTER AND HOME HEALTH REFERRAL. Juanita LIM, TEST ENGINEER NUCLEAR EQUIPMENT, PHYSICIAN OFFICE REP.
--- NOTE | 2019-10-25 11:04 | ED.VISSUMM ---
- ER Visit Summary Date of Service: 10/25/19 CTs were reviewed and were unremarkable for acute fracture. Plain films of the knee were also negative. The patient states that she was not getting significant help at home. I did have social work get involved with the patient. She is just currently staying with family and will be going back to her assisted living. She will be discharged. Impression: [] This note was generated with bitFlyer dictation software. It may contain incorrect words, spelling, and punctuation that were not noted in review of the chart prior to signing ED Disposition - Plan for ED Patient: Instructions: ED Mechanical Fall, ED CONTUSION Face No Wake Up] Referrals: Gonzales Pinto MD [Primary Care Provider] -
--- NOTE | 2019-10-25 11:22 | RAD_ITS ---
STUDY: X-RAY - RIGHT ANKLE REASON FOR EXAM: Right ankle pain, fell. TECHNIQUE: 3 view(s) of the ankle. COMPARISON: Radiographs of the right foot 07/17/2016. FINDINGS: There is osteopenia. Normal visualized distal tibia and fibula. Normal medial and lateral malleoli. Normal tibiotalar articulation and ankle mortise. There are posterior and plantar calcaneal enthesophytes. 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 There is soft tissue swelling. RAD/Ankle min 3 Views IMPRESSION: Arthrosis of the navicular-cuneiform articulations. Calcaneal enthesopathy. Soft tissue swelling. Electronically Signed: Faraz Craig MD at 11:54 EDT Tel , Service support ,
--- NOTE | 2019-10-25 12:06 | CM.ED ---
SOCIAL WORK RECEIVED CALL BACK FROM CHARY GRACIA WITH [facility]. PER CHARY, UNABLE TO PROVIDE SERVICES TO PATIENT AT GRANDDAUGHTERS HOME SHE IS ORIGINALLY FROM ASSISTED LIVING. PATIENT PLANS TO RETURN TO GRANDDAUGHTER'S HOME FROM EMERGENCY DEPARTMENT AND EVENTUALLY TRANSITION BACK TO [facility] AFTER PANDEMIC IS OVER/BAN ON VISITORS AT FACILITY IS LIFTED. THIS WORKER TO LOOK INTO SKILLED SERVICES FOR P.T. AND AIDE. Juanita LIM, CARPET INSTALLER, FARM OPERATOR.
[2019-10-25 13:17] VITALS: BP 124/64; PULSE 91; RESP 20; O2SAT 97
--- NOTE | 2019-10-25 13:25 | CM.ED ---
SOCIAL WORK REFERRAL FOR PHYSICAL THERAPY AND HOME HEALTH AIDE CALLED TO [facility].
== END 2019-10-25 13:45 | disposition home or self-care (01) ==
LOC: ED 07:33
PROVIDERS: Emergency Provider Emergency Medicine; PCP Family Medicine
DX: S09.90XA Unspecified injury of head, initial encounter (principal); S80.01XA Contusion of right knee, initial encounter; W06.XXXA Fall from bed, initial encounter; Z79.01 Long term (current) use of anticoagulants; Z23 Encounter for immunization
CPT/HCPCS: 70450; 72125; 73560; 73610; 80048; 85025; 85610; 85730; 90471; 90715; 96374; 96375; 99285; A4216

== ENCOUNTER → 2019-10-28 16:00 | Outpatient (CLI) | payer MEDICARE, MEDICAID, SELFPAY ==
[2019-10-25 05:57] VITALS: BMI 47.5
--- NOTE | 2019-10-28 16:02 | CT_ITS ---
STUDY: CT ABDOMEN AND PELVIS WITHOUT CONTRAST REASON FOR EXAM: Female, 74 years old. PT STATED ABDOM PAIN, HEMATURIA, WEAKNESS RADIATION DOSAGE (If Supplied By Facility): CTDIvol = ( 22.13 ) mGy, DLP = ( 1232.82 ) mGycm TECHNIQUE: Transaxial images were obtained from the dome of the diaphragm to the symphysis pubis without oral contrast, and without intravenous contrast. Sagittal and coronal images were reconstructed. Individualized dose optimization techniques were used for this CT. COMPARISON: CT abdomen and pelvis 08/27/2019. FINDINGS: This is a limited non-IV and nonoral contrast study. Stable 1 cm cyst upper pole of left kidney. There is ill-defined 7 mm density within the right breast. There is prior bariatric surgery. The visualized portions of the heart are within normal limits. Normal liver. There is likely a prior cholecystectomy. Normal spleen. Normal pancreas. Normal bilateral adrenal glands. There is a 4 mm right renal calculus within the right midpole renal collecting system... There are no ureteral calculi or hydronephrosis There is 2 mm calculus mid pole left kidney. There is 5 mm left exophytic hyperdense renal cyst. Normal visualized stomach. Normal small intestine. There is a moderate colonic fecal load. The appendix is nonvisualized. Normal abdominal aorta. There is an IVC filter.. Normal retroperitoneum. There is moderate bladder distention. There is small air bubble within the bladder. There is prior hysterectomy. Small anterior abdominal wall fatty hernia. Stable degenerative changes of lumbar spine There is anterior abdominal wall hernia which contains nondistended loops of small bowel. There are stable degenerative changes of both hips. CT/Abdomen/Pelvis without Cont IMPRESSION: Limited non-IV and nonoral contrast study Anterior abdominal wall hernia which contains nondistended loops of small bowel Prior bariatric surgery 7 mm nodular density within the right breast, this may be benign or malignant. Follow up mammography and right breast ultrasound is recommended Cholecystectomy 4 mm calculus within the right mid pole renal collecting system, no hydronephrosis or ureteral calculi Stable 2 mm left renal calculus, 1 cm left renal cyst IVC filter Moderate bladder distention, small air bubble within the bladder likely from prior instrumentation or Adler catheter placement Prior hysterectomy Small anterior abdominal wall fatty hernia Stable degenerative changes of both hips Stable degenerative changes of the lumbar spine Moderate colonic fecal load Electronically Signed: Freddy Boudreaux, at 20:44 EDT Tel , Service support ,
== END ==
PROVIDERS: PCP Family Medicine; Referring Provider Urology; Visit Provider Urology
DX: N20.1 Calculus of ureter (principal)
CPT/HCPCS: 74176

== ENCOUNTER 2019-10-28 17:06 | Observation (INO) | payer MEDICARE, MEDICAID, SELFPAY ==
[2019-10-28 17:08] VITALS: BP 117/62; PULSE 87; RESP 18; TEMP 36.6; O2SAT 97; BMI 47.4
--- NOTE | 2019-10-28 17:27 | ED.DCSUM_ITS ---
- ER Visit Summary Date of Service: 10/28/19 Chief Complaint: Hematuria and weakness History of Present Illness: The patient is a 74 F who presents with hematuria and weakness that is been getting worse over the past 3 days. Patient states that she fell twice recently. Patient was seen here after the second fall. CT scans and lab work were normal and the patient was discharged home. Patient states she has noted some blood in her urine over the past 3 days. Patient admits to some suprapubic abdominal pain. Patient describes it as aching. Patient states she feels she is getting weaker. Patient denies any headaches. Patient denies any visual changes. Patient denies any shortness of breath or cough. Physical Examination: Vital signs are stable. Patient is afebrile. Patient is in no acute distress. Oral mucosa is pink and moist. Neck is supple. Trachea is midline. There is no JVD. Heart was regular rate and rhythm. Lungs are clear and equal bilaterally. Abdomen is soft. Bowel sounds are normal. There is some mild suprapubic tenderness. There is no rebound or guarding noted. Cranial nerves II through XII are intact. There are no focal motor or sensory deficits. Test Results: CBC shows a mild anemia with a hemoglobin of 10.8. Comprehensive metabolic profile was within normal limits. PT with INR was normal at 1.2. PTT was slightly elevated at 36.3. Urinalysis showed leukocyte esterase of 25 with positive nitrates. Occult blood was 250, there were greater than 100 red blood cells. Emergency Department Course and Treatment: Patient was given a dose of Rocephin here. CT scan of the abdomen and pelvis from earlier today was reviewed. There are bilateral renal calculi but no ureteral calculi. There is no acute intra- abdominal pathology. This was interpreted by the radiologist. Due to the patient's weakness, patient will be admitted. Case was discussed with the hospitalist. He will admit the patient for observation. Patient is agreeable to go to an extended care facility for further rehab. Patient understood and was agreeable with the plan. All questions were answered. Disposition: Admit to hospital Impression: 1. General weakness 2. Hematuria This note was generated with Ansiraation software. It may contain incorrect words, spelling, and punctuation that were not noted in review of the chart prior to signing ED Disposition - Plan for ED Patient: Disposition: Acute Care Hospital [facility] Diagnosis: Weakness, Hematuria
[2019-10-28 17:55] LABS: Absolute Neutrophil Count 3.4 X10^3/uL (2.0-7.7); Basophil# 0.02 X10^3/uL; Basophil% 0.3 % (0-1); Eosinophil# 0.23 X10^3/uL; Eosinophils% 3.9 % (0-5); Hematocrit 33.8 % (37-47); Hemoglobin 10.8 g/dL (12.0-15.0); Mean Corpuscular Hgb 30.1 pg (27.0-32.0); Mean Corpuscular Volume 94.2 fL (81-99); Monocyte# 0.78 X10^3/uL; Monocyte% 13.4 % (0-10); NRBC Flagged by Analyzer 0 % (0-5); Neutrophil # 3.37 X10^3/uL (2.7-7.7); Neutrophil % 57.9 % (47-70); Platelet Count 206 K/mm3 (150-450); RBC Distribution Width CV 13.8 % (11.6-14.6); RBC Distribution Width SD 47.7 fl (35.1-43.9); Red Blood Count 3.59 M/mm3 (4.2-5.4); White Blood Count 5.8 K/mm3 (4.4-11.0)
[2019-10-28 18:06] LABS: International Normalized Ratio 1.2
[2019-10-28 18:07] LABS: Partial Thromboplast Time 36.3 Seconds (24.1-36.2)
[2019-10-28 18:14] LABS: ALB/GLOB Ratio 0.8 RATIO (0.9-2.4); AST(SGOT) 29 U/L (15-37); Alanine Aminotransfer ALT/SGPT 19 U/L (13-56); Albumin, Serum 2.8 g/dL (3.2-5.0); Alkaline Phosphatase 74 U/L (45-117); Anion Gap 6 (5-15); BUN 16 mg/dL (7-18); BUN/Creat Ratio 19.7 RATIO (10-20); Calcium,Total 8.6 mg/dL (8.5-10.1); Chloride 104 mmol/L (98-107); Creatinine, Serum 0.81 mg/dL (0.55-1.02); EST Glomerular Filtration Rate 73 mL/min (>60); Est Glom Filt Rate - Afr Amer 89 mL/min (>60); Estimated Creatinine Clearance 55.66 ml/min; Globulin 3.3 g/dL (2.2-4.2); Glucose 93 mg/dL (74-106); Potassium 3.8 mmol/L (3.5-5.1); Protein, Total 6.1 g/dL (6.4-8.2); Sodium Level 139 mmol/L (136-145)
[2019-10-28 18:38] VITALS: BP 108/61; PULSE 80; RESP 17; TEMP 36.6; O2SAT 96
[2019-10-28 19:10] LABS: Mucous, Urine 0 SEEN /hpf (<or=2+)
[2019-10-28 19:15] LABS: Color, Urine Yellow (Yellow); Glucose, Dipstick Normal (Normal); Ketone-Dipstick Negative (Negative); Leukocyte Esterase-Dipstick 25 /ul (Negative); Nitrite-Dipstick Positive (Negative); Occult Blood-Urine 250 /ul (Negative); Protein-Dipstick 30 mg/dl (Negative); Specific Gravity, Urine 1.015 (1.002-1.030); Urine Bilirubin Dipstick Negative (Negative); Urine Clarity Cloudy (Clear); Urine Urobilinogen Normal (Normal)
[2019-10-28 19:32] LABS: Red Blood Cells-Urine > 100 SEEN /hpf (0-5)
[2019-10-28 19:33] LABS: Squamous Epithelial Cells - UA 0-5 SEEN /hpf (5-10)
[2019-10-28 19:35] LABS: Hyaline Cast 0-5 SEEN /lpf (0-5)
[2019-10-28 19:36] LABS: White Blood Cells 0-5 SEEN /hpf (0-5)
[2019-10-28 19:38] LABS: Bacteria 2+ /hpf (None Seen)
[2019-10-28 19:51] VITALS: BP 118/78; PULSE 70; RESP 16; O2SAT 98
--- NOTE | 2019-10-28 20:09 | ED.RN ---
Update given to granddaughter regarding admission.
[2019-10-28 20:41] VITALS: BP 118/78; PULSE 70; RESP 16; TEMP 36.6; O2SAT 98
[2019-10-28 21:33] VITALS: RESP 16
[2019-10-28] MEDS: Ceftriaxone 1 GM/50 ML BAG IV (21:42)
[2019-10-28 22:30] VITALS: BMI 46.5
[2019-10-28 22:56] VITALS: BP 125/57; PULSE 75; RESP 16; TEMP 36.4; O2SAT 98
[2019-10-28 22:57] VITALS: BMI 46.5
--- NOTE | 2019-10-28 23:16 | PCM.HP.STD ---
Problem List (1) Weakness Status: Acute (2) Hematuria Status: Acute Qualifiers: Hematuria type: gross Qualified Code(s): R31.0 - Gross hematuria History of Present Illness Date of Admission: 10/28/19 Chief Complaint: Hematuria, generalized debility, frequent falls The patient is a 74 year old F seen in the emergency room at [facility] with a chief complaint of blood in her urine over the past 3 days, she is also had 2 falls within the past 3 days-she was evaluated yesterday after her second fall, CT scan of the abdomen pelvis was obtained at that time which revealed no evidence of fracture, there was noted to be a small 7 mm nodule in the right breast and noted to be calculi within the right and left kidneys. Patient has been living with her daughter, she usually is living in assisted living at [facility] but she was taken out of the assisted living facility by her daughter due to concerns of catching COVID at the facility. Work-up in the emergency room included a CBC which was remarkable for hemoglobin of 10.8, patient's chemistry panel was unremarkable, patient's urinalysis showed positive nitrites, 25 leukocyte Estrace, more than 100 RBCs, and +2 bacteria. Patient will be placed in observation status on [facility] 3 for generalized debility and acute cystitis, she will be seen by PT and OT, it is unknown whether she will need to be placed in a halfway home for short-term rehab services. According to the daughter, there are family members at their home who can aid in the patient's care if she does not need short-term rehab services. Past Medical History Past Medical History (Chronic Problems): Chronic Problems (Last Reviewed 04/07/19 @ 11:24 by Camille Steele) Unilateral primary osteoarthritis, right knee (Chronic) Chronic pain following surgery or procedure (Chronic) Morbid obesity with BMI of 45.0-49.9, adult (Chronic) ROXIE (obstructive sleep apnea) (Chronic) says she got off CPAP_ when she had gastric bypass surgery ......wieghed 248 after bypass and was up to 312 recently but, has been losing weight, unintentional. 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 (Chronic) Shortness of breath on exertion (Chronic) Medical History: Medical History (Last Reviewed 04/07/19 @ 11:24 by Camille Steele) Arthritis M19.90 Bilateral headaches R51 Carpal tunnel syndrome G56.00 Cataracts, both eyes H26.9 Closed left arm fracture S42.302A Diabetes E11.9 FHx: cholecystectomy Z84.89 Heart disease I51.9 History of gallstones Z87.19 Neuropathy G62.9 Osteoarthritis M19.90 Polycystic ovaries E28.2 Hypertension I10 Allergies ampicillin [From Unasyn] Allergy (Severe, Verified 10/28/19 17:10) Other Blisters on tongue /throat difficulty breathing sore tongue/throat warfarin sodium [From Coumadin] Allergy (Severe, Verified 10/28/19 17:10) Low red blood cells Home Medications: Ambulatory Orders Medication Instructions Recorded Cholecalciferol (VIT D3) [Vitamin 1,000 unit PO DAILY 12/29/15 D3] Duloxetine Hcl [Cymbalta] 60 mg PO DAILY 12/29/15 Gabapentin [Neurontin] 300 mg PO TID 12/29/15 Acetaminophen [Tylenol Tablet] 1,000 mg PO Q6H PRN PRN 12/30/16 Ascorbic Acid [Vitamin C] 500 mg PO BID 01/01/18 Omeprazole 40 mg PO BID 01/01/18 Divalproex Sodium [Depakote] 500 mg PO BID 08/05/18 Pravastatin [Pravachol] 40 mg PO QHS 08/05/18 Solifenacin Succinate [Vesicare] 10 mg PO DAILY 08/05/18 Apixaban [Eliquis] 5 mg PO BID 03/18/19 Fluticasone 0.05% [Flonase Nasal 2 spray NASAL DAILY 03/18/19 [place]] Furosemide [Lasix] 60 mg PO DAILY 03/18/19 Guaifenesin Dm [Robitussin Dm] 10 ml PO Q4H PRN 03/18/19 Primidone 50 mg PO QHS 09/26/19 SimETHICONE [Mylicon] 80 mg PO TIDCM 03/18/19 Cephalexin [Keflex] 250 mg PO QHS 09/06/19 Lactobacillus Acidophilus 1 ea PO DAILY 09/06/19 [Acidophilus] Tamsulosin HCl [Flomax] 0.4 mg PO QHS 09/06/19 Magnesium Hydroxide [Milk Of 30 ml PO DAILY PRN PRN 09/23/19 Magnesia] Nystatin 500,000U/5ML [Mycostatin] 5 ml PO 4X/DAY 09/23/19 Polyethylene Glycol 3350 [Miralax] 17 gm PO DAILY 09/23/19 Surgical History: Surgical History (Last Reviewed 04/07/19 @ 11:24 by Camille Steele) History of carpal tunnel surgery Z98.890 History of hysterectomy Z90.710 Total knee replacement status Z96.659 Surgical History: cholecystectomy, gastric bypass, hysterectomy, tonsillectomy, - - Gastric bypass, surgery for left arm fracture Psychiatric History: No pertinent psych hx BRASS CLEANER History: No pertinent BRASS CLEANER history, dysfunctional uterine bld - s/p hysterectomy Lives: With Family Smoking Status: Never smoker Tobacco Use: Non-smoker Alcohol: None Drugs: None - *Family History Paternal Family History: Family History (Last Reviewed 04/07/19 @ 11:24 by Camille Steele) Other Heart disease High cholesterol Hypertension Myocardial infarction History Items: Cancer - Colon cancer, Heart Disease, - Maternal Family History: Family History (Last Reviewed 04/07/19 @ 11:24 by Camille Steele) Other Heart disease High cholesterol Hypertension Myocardial infarction History Items: Heart Disease, Hypertension Review of Systems Constitutional: Reports: Weakness, Fatigue. Denies: Anorexia, Chills, Fever, Night Sweats, Malaise, Weight Change Eyes: Denies: Cataracts, Conjunctivae Inflammation, Double vision, Drainage HEENT: Denies: Difficulty Swallowing, Dysphasia, Ear Pain, Eye Pain, Hearing Changes, Nasal bleeding, Nasal Congestion, Post Nasal Drip Cardiovascular: Denies: Chest Pain, Claudication, Chest Pressure, Chest Tightness, Edema, Palpitations Respiratory: Denies: Cough, Hemoptysis, Pleuritic Pain, Shortness of Breath, Shortness of breath at rest, Shortness of breath upon exertion, Sputum production Gastrointestinal: Denies: Abdominal Pain, Constipation, Diarrhea, Hematemesis, Hematochezia, Nausea, Melena, Vomiting Genitourinary: Denies: Dysuria, Frequency, Hematuria, Hesitancy, Urgency Musculoskeletal: Denies: Back Pain, Foot Pain, Hand Pain, Joint Pain, Joint stiffness, Joint swelling, Joint Tenderness, Leg Pain Skin: Denies: Dryness, Jaundice, Pruritis, Rash Neurological: Denies: Blurred vision, Double vision, Slurred speech, Difficulty swallowing, Focal weakness, Headaches, Incoordination, Numbness, Tingling Psychiatric: Denies: Anxiety, Depression, Homicidal Ideations, Suicidal Ideations Endocrine: Denies: Change in Body Habitus, Heat/ Cold Intolerance, Polydipsia, Polyuria Hematologic/ Lymphatic: Reports: Hx of blood clot. Denies: Adenopathy, Anemia, Easy Bruising, Easy Bleeding, Petechiae, Purpura VTE Information - Inpt Only VTE Present on Admission: No VTE Mechan Device Prophylaxis: None VTE Pharm Prophylaxis ordered?: No Reason prophylaxis not ordered:: Medical Contraindication - Patient on Eliquis Patient Problems: Active and Suspected Problems (Last Reviewed 04/07/19 @ 11:24 by Camille Steele) Hematuria (Acute) Weakness (Acute) - Physical Exam Vitals/I&O's: Vital Signs Temp Pulse Resp BP Pulse Ox 97.5 F L 75 16 125/57 H 98 10/28/19 22:56 10/28/19 22:56 10/28/19 22:56 10/28/19 22:56 10/28/19 22:56 Oxygen Delivery Method Room Air Weight: 126.8 kg Body Mass Index (BMI) 46.5 Intake and Output for Last 24 Hours 10/26/19 10/27/19 10/28/19 23:59 23:59 23:59 Intake Total 50 / 50 Balance 50 / 50 General: Alert, Oriented x3, Cooperative, No apparent distress, Well developed, Well nourished HEENT: Atraumatic, PERRLA, EOMI, Normocephalic Oral: Moist Mucosa Neck: Supple, No JVD, Negative Carotid Bruits, No Nuchal Rigidity, Trachea Midline, Thyroid Normal Size and Texture Lungs: Clear to auscultation, Normal air movement, No rhonchi, No wheeze, No rales Cardiovascular: Regular rate, Regular Rhythm, Normal S1, Normal S2, No murmurs, PMI Normal, No rub noted, No Gallop Abdomen: Bowel Sounds Present, Soft, Non Tender, Non-Distended, Obese Extremities: No clubbing, No cyanosis, Capillary Refill Less than 3 Seconds, Edema - Mild pedal edema bilaterally Skin: No rashes, No breakdown Musculoskeletal: No Tenderness to Palpation of Joints or Extremities Neurological: Cranial nerves II-XII grossly intact, Neuro grossly intact, - - Patient was not ambulated during my examination Psych/Mental Status: Normal Affect, Appropriate, Alert and oriented to time, place, person, mood and affect Laboratory Results 10/28/19 17:45: WBC 5.8, RBC 3.59 L, Hgb 10.8 L, Hct 33.8 L, MCV 94.2, MCH 30.1, MCHC 32.0, RDW Std Deviation 47.7 H, RDW Coeff of Chani 13.8, Plt Count 206, MPV 10.0, Immature Gran % (Auto) 0.500, Neut % (Auto) 57.9, Lymph % (Auto) 24.0, [place] % (Auto) 13.4 H, Eos % (Auto) 3.9, Baso % (Auto) 0.3, Absolute Neuts (auto) 3.4, Absolute Lymphs (auto) 1.40, Nucleated RBC % 0 10/28/19 17:45: PT 15.0 H, INR 1.2, APTT 36.3 H 10/28/19 17:45: Sodium 139, Potassium 3.8, Chloride 104, Carbon Dioxide 29.0, Anion Gap 6, BUN 16, Creatinine 0.81, Estim Creat Clear Calc 55.66, Est GFR (MDRD) Af Amer 89, Est GFR (MDRD) Non-Af 73, BUN/Creatinine Ratio 19.7, Glucose 93, Calcium 8.6, Total Bilirubin 0.40, AST 29, ALT 19, Alkaline Phosphatase 74, Total Protein 6.1 L, Albumin 2.8 L, Globulin 3.3, Albumin/Globulin Ratio 0.8 L 10/28/19 18:50: Urine Color Yellow, Urine Clarity Cloudy, Urine pH 5.0, Ur Specific [place] 1.015, Urine Protein 30 H, Urine Glucose (UA) Normal, Urine Ketones Negative, Urine Occult Blood 250 H, Urine Nitrite Positive H, Urine Bilirubin Negative, Urine Urobilinogen Normal, Ur Leukocyte Esterase 25 H, Urine RBC > 100 SEEN, Urine WBC 0-5 SEEN, Ur Squamous Epith Cells 0-5 SEEN, Urine Bacteria 2+, Hyaline Casts 0-5 SEEN, Urine Mucus 0 SEEN Current Medications Acetaminophen (Tylenol) 1,000 mg PO Q6H PRN PRN PRN Reason: Mild Pain (scale 0-3)/T>100.7 Apixaban (Eliquis) 5 mg PO BID [facility] Divalproex Sodium (Depakote) 500 mg PO BID [facility] Duloxetine HCl (Cymbalta) 60 mg PO DAILY [facility] Furosemide (Lasix) 60 mg PO DAILY [facility] Gabapentin (Neurontin) 300 mg PO TIDCM [facility] Ceftriaxone Sodium (Rocephin) 1 gm in 50 mls @ 100 mls/hr IV Q24H [facility] Sodium Chloride () 250 mls @ 15 mls/hr IV .[id number] PRN PRN Reason: Saline Flush Sodium Chloride () 250 mls @ 15 mls/hr IV .[id number] PRN PRN Reason: Additional IVPB Infusion Pantoprazole Sodium (Protonix) 40 mg PO BID [facility] Polyethylene Glycol (Miralax) 17 gm PO DAILY [facility] Pravastatin Sodium (Pravachol) 40 mg PO QHS [facility] Primidone (Mysoline) 50 mg PO QHS [facility] Sodium Chloride () 10 - 40 ml IV UD PRN PRN Reason: SALINE FLUSH Tamsulosin HCl (Flomax) 0.4 mg PO QHS [facility] Assessment/Plan All Active Problems (Last Reviewed 04/07/19 @ 11:24 by Camille Steele) Hypophosphatemia (Resolved) Sepsis (Resolved) Urinary tract infection (Acute) Encounter for central line placement (Resolved) Hematuria (Acute) Segmental and somatic dysfunction of cervical region (Resolved) Weakness (Acute) Abdominal pain (Resolved) #1 acute cystitis-patient will be placed in observation status on MedSurg 3, she will be given IV Rocephin #2 acute on chronic debility-in part secondary to acute cystitis, PT and OT will see the patient, she may need short-term placement in a halfway facility depending on how well she does with PT and OT. #3 diabetic neuropathy #4 class III obesity #5 chronic osteoarthritis #6 chronic anticoagulation-patient is on Eliquis-she states this is due to history of DVT #7 anemia-etiology unclear, possibly secondary to iron deficiency anemia-patient has a past history of gastric bypass, I will obtain a serum iron and TIBC on the patient #8 history of type 2 diabetes-patient states that she has not had a problem with diabetes since she had a gastric bypass surgery years ago. OBSV E&M: [id number] Initial observation care L3
[2019-10-28] MEDS: Divalproex Sodium 250 MG Tablet 500 MG PO (23:23)
[2019-10-28] MEDS: APIXABAN 5 MG TABLET PO (23:23)
[2019-10-28] MEDS: Pantoprazole Sodium 40 MG Tablet PO (23:23)
[2019-10-28] MEDS: Acetaminophen 500 MG Tablet 1000 MG PO (23:23)
[2019-10-28] MEDS: Pravastatin 40 MG Tablet PO (23:26)
[2019-10-28] MEDS: Tamsulosin HCl 0.4 MG Capsule PO (23:26)
[2019-10-28] MEDS: Primidone 50 MG Tablet PO (23:26)
[2019-10-29 05:26] VITALS: BP 116/51; PULSE 80; RESP 16; TEMP 36.9; O2SAT 95
[2019-10-29] MEDS: Acetaminophen 500 MG Tablet 1000 MG PO (05:29)
[2019-10-29 05:55] LABS: Iron 32 ug/dL (50-170); Iron Binding Capacity,Total 297 ug/dL (250-450); PERCENT IRON SATURATION 10.8 % (15.0-55.0)
--- NOTE | 2019-10-29 07:57 | PCM.PN.HOSP ---
Patient Problems: Active and Suspected Problems (Last Reviewed 04/07/19 @ 11:24 by Camille Steele) Hematuria (Acute) Weakness (Acute) Reason for Visit: Follow-up on acute UTI/debility Subjective: Patient was seen and examined. Denies any fever or chills. No acute events overnight Objective: Physical exam: General: Alert, Oriented x3, Cooperative, No apparent distress, Well developed, Well nourished HEENT: Atraumatic, PERRLA, EOMI, Normocephalic Oral: Moist Mucosa Neck: Supple, No JVD, Negative Carotid Bruits, No Nuchal Rigidity, Trachea Midline, Thyroid Normal Size and Texture Lungs: Clear to auscultation, Normal air movement, No rhonchi, No wheeze, No rales Cardiovascular: Regular rate, Regular Rhythm, Normal S1, Normal S2, No murmurs, PMI Normal, No rub noted, No Gallop Abdomen: Bowel Sounds Present, Soft, Non Tender, Non-Distended, Obese Extremities: No clubbing, No cyanosis, Capillary Refill Less than 3 Seconds, Edema - Mild pedal edema bilaterally Skin: No rashes, No breakdown Musculoskeletal: No Tenderness to Palpation of Joints or Extremities Neurological: Cranial nerves II-XII grossly intact, Neuro grossly intact Psych/Mental Status: Normal Affect, Appropriate, Alert and oriented to time, place, person, mood and affect Vitals/I&O's: Vital Signs Temp Pulse Resp BP Pulse Ox 98.4 F 80 16 116/51 L 95 10/29/19 05:26 10/29/19 05:26 10/29/19 05:26 10/29/19 05:26 10/29/19 05:26 Oxygen Delivery Method Room Air Weight: 126.8 kg Body Mass Index (BMI) 46.5 Intake and Output for Last 24 Hours 10/27/19 10/28/19 10/29/19 23:59 23:59 23:59 Intake Total 50 / 250 500 / 500 Output Total 250 / 250 Balance 50 / 250 250 / 250 Laboratory Results 10/28/19 17:45: WBC 5.8, RBC 3.59 L, Hgb 10.8 L, Hct 33.8 L, MCV 94.2, MCH 30.1, MCHC 32.0, RDW Std Deviation 47.7 H, RDW Coeff of Chani 13.8, Plt Count 206, MPV 10.0, Immature Gran % (Auto) 0.500, Neut % (Auto) 57.9, Lymph % (Auto) 24.0, [place] % (Auto) 13.4 H, Eos % (Auto) 3.9, Baso % (Auto) 0.3, Absolute Neuts (auto) 3.4, Absolute Lymphs (auto) 1.40, Nucleated RBC % 0 10/28/19 17:45: PT 15.0 H, INR 1.2, APTT 36.3 H 10/28/19 17:45: Sodium 139, Potassium 3.8, Chloride 104, Carbon Dioxide 29.0, Anion Gap 6, BUN 16, Creatinine 0.81, Estim Creat Clear Calc 55.66, Est GFR (MDRD) Af Amer 89, Est GFR (MDRD) Non-Af 73, BUN/Creatinine Ratio 19.7, Glucose 93, Calcium 8.6, Total Bilirubin 0.40, AST 29, ALT 19, Alkaline Phosphatase 74, Total Protein 6.1 L, Albumin 2.8 L, Globulin 3.3, Albumin/Globulin Ratio 0.8 L 10/28/19 18:50: Urine Color Yellow, Urine Clarity Cloudy, Urine pH 5.0, Ur Specific [place] 1.015, Urine Protein 30 H, Urine Glucose (UA) Normal, Urine Ketones Negative, Urine Occult Blood 250 H, Urine Nitrite Positive H, Urine Bilirubin Negative, Urine Urobilinogen Normal, Ur Leukocyte Esterase 25 H, Urine RBC > 100 SEEN, Urine WBC 0-5 SEEN, Ur Squamous Epith Cells 0-5 SEEN, Urine Bacteria 2+, Hyaline Casts 0-5 SEEN, Urine Mucus 0 SEEN 10/29/19 05:13: Iron 32 L, TIBC 297, Iron Saturation 10.8 L Current Medications Acetaminophen (Tylenol) 1,000 mg PO Q6H PRN PRN PRN Reason: Mild Pain (scale 0-3)/T>100.7 Last Admin: 10/29/19 05:29 Dose: 1,000 mg Documented by: Hydrocodone Bitart/Acetaminophen ([place] 5mg-325mg) 1 tablet PO Q4H PRN PRN PRN Reason: Pain Score 1-10/10 Apixaban (Eliquis) 5 mg PO BID [facility] Last Admin: 10/28/19 23:23 Dose: 5 mg Documented by: Divalproex Sodium (Depakote) 500 mg PO BID [facility] Last Admin: 10/28/19 23:23 Dose: 500 mg Documented by: Duloxetine HCl (Cymbalta) 60 mg PO DAILY [facility] Furosemide (Lasix) 60 mg PO DAILY [facility] Gabapentin (Neurontin) 300 mg PO TIDCM [facility] Ceftriaxone Sodium (Rocephin) 1 gm in 50 mls @ 100 mls/hr IV Q24H [facility] Sodium Chloride () 250 mls @ 15 mls/hr IV .[id number] PRN PRN Reason: Saline Flush Sodium Chloride () 250 mls @ 15 mls/hr IV .[id number] PRN PRN Reason: Additional IVPB Infusion Pantoprazole Sodium (Protonix) 40 mg PO BID [facility] Last Admin: 10/28/19 23:23 Dose: 40 mg Documented by: Polyethylene Glycol (Miralax) 17 gm PO DAILY [facility] Pravastatin Sodium (Pravachol) 40 mg PO QHS [facility] Last Admin: 10/28/19 23:26 Dose: 40 mg Documented by: Primidone (Mysoline) 50 mg PO QHS [facility] Last Admin: 10/28/19 23:26 Dose: 50 mg Documented by: Sodium Chloride () 10 - 40 ml IV UD PRN PRN Reason: SALINE FLUSH Tamsulosin HCl (Flomax) 0.4 mg PO QHS [facility] Last Admin: 10/28/19 23:26 Dose: 0.4 mg Documented by: STROKE Vital Signs/Narrative: Vital Signs Temp Pulse Resp BP Pulse Ox 10/29/19 05:26 98.4 F 80 16 116/51 L 95 Medical Necessity - Tobacco Use Smoking Status: Never smoker Tobacco Use: Non-smoker Assessment/Plan All Active Problems (Last Reviewed 04/07/19 @ 11:24 by Camille Steele) Hypophosphatemia (Resolved) Sepsis (Resolved) Urinary tract infection (Acute) Encounter for central line placement (Resolved) Hematuria (Acute) Segmental and somatic dysfunction of cervical region (Resolved) Weakness (Acute) Abdominal pain (Resolved) 1. Acute gram-negative jan UTI, urine cultures are pending, continue on IV ceftriaxone 2. Debility secondary to #1, PT and OT to evaluate 3. Type II DM with diabetic peripheral neuropathy, diet controlled 4. History of DVT, on chronic anticoagulation with Eliquis 5. Anemia, mixed - iron deficiency and anemia of chronic disease, Will start po iron and continue with vitamin C 6. Right breast nodule, 7mm, needs to rafaela followed up in outpatient 7. DVT PPx- on Eliquis Inpatient E&M: 29152 Subs Hosp L2
[2019-10-29] MEDS: Gabapentin 300 MG Capsule PO ×3 (08:36→17:01)
[2019-10-29] MEDS: Divalproex Sodium 250 MG Tablet 500 MG PO ×2 (10:02→21:54)
[2019-10-29] MEDS: Furosemide 20 MG Tablet 60 MG PO (10:02)
[2019-10-29] MEDS: APIXABAN 5 MG TABLET PO ×2 (10:03→21:55)
[2019-10-29] MEDS: Pantoprazole Sodium 40 MG Tablet PO ×2 (10:03→21:54)
[2019-10-29] MEDS: DULoxetine Hcl 60 MG Capsule PO (10:04)
--- NOTE | 2019-10-29 11:44 | CASEMGMT ---
Addendum entered by Maria E Martinez 10/29/19 13:21: SW placed green sheet on chart. Addendum entered by Maria E Martinez 10/29/19 11:54: Per previous notes, pt has [facility] [place]. RUKHSANA placed a call to [facility] and updated her on pt's admission to [facility]. Original Note: Social Work Assessment Referral Date: 10/29/2019 Date of Assessment: 10/29/2019 Reason for consult: Recent discharge from [facility], May need SNF Informant: Personal Status: SW met with pt and introduced self and role at [facility]. Pt is alert and orientated x3. Pt confirms that she was living at [facility] but was recently discharged to her granddaughters home due to COVID. Pt states that she is still currently living with her granddaughter and the plan is for pt to remain living with her granddaughter until the pandemic is over. Pt states that she lives in a one story home with four steps to enter. Pt states no railings for the steps. Pt states that she has cane, walker and wheelchair at home. Pt states that she was pretty independent with ADLs. PCP is Dr. Pinto and Pharmacy is [facility]. Substance Abuse Hx: Pt denied Mental Health Hx: Pt denied Pt states that [facility] was going to start today for PT. Pt states that she plans to return to her granddaughters home at discharge with resumption of HHC for PT. RUKHSANA placed a call to Sasha with [facility] and updated her that plan is for pt to return home tomorrow. Resumption of HHC entered. Plan: Return to pt's granddaughters home at discharge with resumption of [facility] for PT Maria E Martinez STORAGE MANAGER, DRUM OPERATOR
[2019-10-29 14:14] VITALS: BP 106/59; PULSE 91; RESP 16; TEMP 36.8; O2SAT 97
[2019-10-29] MEDS: HYDROcodone Bitartrate/Apap 5/325 Tablet PO ×2 (14:50→19:41)
[2019-10-29] MEDS: Ascorbic Acid 500 MG Tablet PO (17:01)
[2019-10-29 19:34] VITALS: BP 104/44; PULSE 88; RESP 20; TEMP 36.8; O2SAT 94
[2019-10-29] MEDS: Primidone 50 MG Tablet PO (21:54)
[2019-10-29] MEDS: Tamsulosin HCl 0.4 MG Capsule PO (21:54)
[2019-10-29] MEDS: Pravastatin 40 MG Tablet PO (21:54)
[2019-10-29] MEDS: Ceftriaxone 1 GM/50 ML BAG IV (22:05)
[2019-10-29] MEDS: 0.9% Saline Lock 10 ML Syringe IV (22:05)
[2019-10-29 22:10] VITALS: BP 108/57; PULSE 79; RESP 16; TEMP 36.7; O2SAT 94
[2019-10-30 04:10] VITALS: BP 103/60; PULSE 78; RESP 18; TEMP 36.6; O2SAT 97
[2019-10-30] MEDS: HYDROcodone Bitartrate/Apap 5/325 Tablet PO ×3 (04:30→12:49)
[2019-10-30] MEDS: 0.9% Saline Lock 10 ML Syringe IV (04:31)
[2019-10-30 06:52] LABS: Absolute Lymphocyte Count 1.36 X10^3/uL (0.83-4.51); Basophil# 0.03 X10^3/uL; Basophil% 0.7 % (0-1); Eosinophil# 0.29 X10^3/uL; Eosinophils% 6.7 % (0-5); Hematocrit 31.3 % (37-47); Lymphocyte # 1.36 X10^3/ul (4.0); Lymphocyte % 31.4 % (19-41); Mean Corp Hgb Conc 31.9 g/dL (32-36); Monocyte# 0.58 X10^3/uL; Monocyte% 13.4 % (0-10); NRBC Flagged by Analyzer 0 % (0-5); Neutrophil # 2.04 X10^3/uL (2.7-7.7); Neutrophil % 47.1 % (47-70); Platelet Count 192 K/mm3 (150-450); RBC Distribution Width CV 13.7 % (11.6-14.6); RBC Distribution Width SD 47.1 fl (35.1-43.9); Red Blood Count 3.33 M/mm3 (4.2-5.4); White Blood Count 4.3 K/mm3 (4.4-11.0)
[2019-10-30 07:08] LABS: ALB/GLOB Ratio 0.7 RATIO (0.9-2.4); AST(SGOT) 14 U/L (15-37); Alanine Aminotransfer ALT/SGPT 16 U/L (13-56); Albumin, Serum 2.2 g/dL (3.2-5.0); Alkaline Phosphatase 64 U/L (45-117); Anion Gap 4 (5-15); BUN 20 mg/dL (7-18); BUN/Creat Ratio 26.9 RATIO (10-20); Calcium,Total 8.1 mg/dL (8.5-10.1); Chloride 106 mmol/L (98-107); Creatinine, Serum 0.74 mg/dL (0.55-1.02); EST Glomerular Filtration Rate 81 mL/min (>60); Est Glom Filt Rate - Afr Amer 98 mL/min (>60); Estimated Creatinine Clearance 45.09 ml/min; Globulin 3.1 g/dL (2.2-4.2); Glucose 89 mg/dL (74-106); Potassium 3.5 mmol/L (3.5-5.1); Protein, Total 5.3 g/dL (6.4-8.2); Sodium Level 138 mmol/L (136-145)
[2019-10-30 08:54] VITALS: BP 115/74; PULSE 73; RESP 18; TEMP 36.6; O2SAT 99
[2019-10-30] MEDS: DULoxetine Hcl 60 MG Capsule PO (08:56)
[2019-10-30] MEDS: Pantoprazole Sodium 40 MG Tablet PO (08:56)
[2019-10-30] MEDS: Gabapentin 300 MG Capsule PO ×3 (08:56→16:16)
[2019-10-30] MEDS: Furosemide 20 MG Tablet 60 MG PO (08:56)
[2019-10-30] MEDS: Divalproex Sodium 250 MG Tablet 500 MG PO (08:57)
[2019-10-30] MEDS: Ascorbic Acid 500 MG Tablet PO ×2 (08:57→16:16)
[2019-10-30] MEDS: APIXABAN 5 MG TABLET PO (08:58)
--- NOTE | 2019-10-30 13:20 | PCM.DC ---
- Discharge Diagnoses Current Active Problems: Current Active and Chronic Problems (Last Reviewed 04/07/19 @ 11:24 by Camille Steele) Urinary tract infection Hematuria Urolithiasis Weakness and functional decline Reason(s) for Visit for Discharge Instructions: Urinary tract infection. Hematuria. Urolithiasis You will use the following diet at home:: No restrictions Your food should be the consistency of: Regular Your liquids should be the consistency of: Regular/Thin Discharge Activity: Return to Normal Activity Allergies/Adverse Reactions: Allergies ampicillin [From Unasyn] Allergy (Severe, Verified 10/28/19 17:10) Other Blisters on tongue /throat difficulty breathing sore tongue/throat warfarin sodium [From Coumadin] Allergy (Severe, Verified 10/28/19 17:10) Low red blood cells Medications to take at Discharge Cholecalciferol (VIT D3) [Vitamin D3] 1,000 unit PO DAILY 12/29/15 Duloxetine Hcl [Cymbalta] 60 mg PO DAILY 12/29/15 Gabapentin [Neurontin] 300 mg PO TID 12/29/15 Acetaminophen [Tylenol Tablet] 1,000 mg PO Q6H PRN PRN 12/30/16 Ascorbic Acid [Vitamin C] 500 mg PO BID 01/01/18 Omeprazole 40 mg PO BID 01/01/18 Divalproex Sodium [Depakote] 500 mg PO BID 08/05/18 Pravastatin [Pravachol] 40 mg PO QHS 08/05/18 Solifenacin Succinate [Vesicare] 10 mg PO DAILY 08/05/18 Apixaban [Eliquis] 5 mg PO BID 03/18/19 Fluticasone 0.05% [Flonase Nasal [place]] 2 spray NASAL DAILY 03/18/19 Furosemide [Lasix] 60 mg PO DAILY 03/18/19 Guaifenesin Dm [Robitussin Dm] 10 ml PO Q4H PRN 03/18/19 Primidone 50 mg PO QHS 03/18/19 SimETHICONE [Mylicon] 80 mg PO TIDCM 03/18/19 Lactobacillus Acidophilus [Acidophilus] 1 ea PO DAILY 09/06/19 Tamsulosin HCl [Flomax] 0.4 mg PO QHS 09/06/19 Magnesium Hydroxide [Milk Of Magnesia] 30 ml PO DAILY PRN PRN 09/23/19 Nystatin 500,000U/5ML [Mycostatin] 5 ml PO 4X/DAY 09/23/19 Polyethylene Glycol 3350 [Miralax] 17 gm PO DAILY 09/23/19 Cefpodoxime Proxetil [Vantin] 200 mg GT BID #28 tab 10/30/19 The following prescriptions were given: Cefpodoxime Proxetil [Vantin] 200 mg GT BID #28 tab Transmission Status: Pending to [facility] Primary Care Physician: Gonzales Pinto MD [Primary Care Provider] - Test Results: Test results from this visit will be discussed in further detail at your follow-up appointment, if applicable. Please Follow Up With: Alejandra Villavicencio MD When: 1-2 weeks
--- NOTE | 2019-10-30 13:25 | PCM.DC.SUM ---
Discharge Date and Diagnosis - Problem List Patient Problems: Active and Suspected Problems (Last Reviewed 04/07/19 @ 11:24 by Camille Steele) Hematuria (Acute) Weakness (Acute) Date of Admission: 10/28/19 Date of Discharge: 10/30/19 - Primary Discharge Diagnosis Active and Suspected Problems (Last Reviewed 04/07/19 @ 11:24 by Camille Steele) Urinary tract infection Hematuria Urolithiasis - Secondary Discharge Diagnosis Chronic Problems (Last Reviewed 04/07/19 @ 11:24 by Camille Steele) Unilateral primary osteoarthritis, right knee (Chronic) Chronic pain following surgery or procedure (Chronic) Morbid obesity with BMI of 45.0-49.9, adult (Chronic) ROXIE (obstructive sleep apnea) (Chronic) says she got off CPAP_ when she had gastric bypass surgery ......wieghed 248 after bypass and was up to 312 recently but, has been losing weight, unintentional. 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 Imaging of the abdomen and pelvis showed bilateral renal calculi that were nonobstructing. Suspect that these are the foci/Loci of infection. Treated as complicated urinary tract infection with IV antibiotics and has improved. Patient will be following up with urology as an outpatient. Will complete oral antibiotics as an outpatient. There was some weakness and debility and functional decline and patient will be going home with home health care will continue to receive therapy at home. [] Patient Problems: Active and Suspected Problems (Last Reviewed 04/07/19 @ 11:24 by Camille Steele) Hematuria (Acute) Weakness (Acute) - Physical Exam Vitals/I&O's: Vital Signs Temp Pulse Resp BP Pulse Ox 97.9 F 73 18 115/74 99 10/30/19 08:54 10/30/19 08:54 10/30/19 08:54 10/30/19 08:54 10/30/19 08:54 Oxygen Delivery Method Room Air Weight: 126.8 kg Body Mass Index (BMI) 46.5 Intake and Output for Last 24 Hours 10/28/19 10/29/19 10/30/19 23:59 23:59 23:59 Intake Total 50 / 250 550 / 850 450 / 450 Output Total 250 / 250 1150 / 1150 Balance 50 / 250 300 / 600 -700 / -700 General: Alert, Oriented x3 HEENT: Atraumatic Neck: Supple Lungs: - - non labored Neurological: Cranial nerves II-XII grossly intact Microbiology Past 72 Hours 10/28/19 18:50 Urine Catheter - Catheter Urine Culture - Preliminary GNR Poss Pseudomonas sp Laboratory Results 10/30/19 06:20: WBC 4.3 L, RBC 3.33 L, Hgb 10.0 L, Hct 31.3 L, MCV 94.0, MCH 30.0, MCHC 31.9 L, RDW Std Deviation 47.1 H, RDW Coeff of Chani 13.7, Plt Count 192, MPV 10.0, Immature Gran % (Auto) 0.700, Neut % (Auto) 47.1, Lymph % (Auto) 31.4, Mckenzie % (Auto) 13.4 H, Eos % (Auto) 6.7 H, Baso % (Auto) 0.7, Absolute Neuts (auto) 2.0, Absolute Lymphs (auto) 1.36, Nucleated RBC % 0 10/30/19 06:20: Sodium 138, Potassium 3.5, Chloride 106, Carbon Dioxide 28.0, Anion Gap 4 L, BUN 20 H, Creatinine 0.74, Estim Creat Clear Calc 45.09, Est GFR (MDRD) Af Amer 98, Est GFR (MDRD) Non-Af 81, BUN/Creatinine Ratio 26.9 H, Glucose 89, Calcium 8.1 L, Total Bilirubin 0.30, AST 14 L, ALT 16, Alkaline Phosphatase 64, Total Protein 5.3 L, Albumin 2.2 L, Globulin 3.1, Albumin/Globulin Ratio 0.7 L Current Medications Acetaminophen (Tylenol) 1,000 mg PO Q6H PRN PRN PRN Reason: Mild Pain (scale 0-3)/T>100.7 Last Admin: 10/29/19 05:29 Dose: 1,000 mg Documented by: Hydrocodone Bitart/Acetaminophen ([place] 5mg-325mg) 1 tablet PO Q4H PRN PRN PRN Reason: Pain Score 1-10/10 Last Admin: 10/30/19 12:49 Dose: 1 tablet Documented by: Apixaban (Eliquis) 5 mg PO BID [facility] Last Admin: 10/30/19 08:58 Dose: 5 mg Documented by: [facility] Admin: 10/30/19 08:57 Dose: 500 mg Documented by: Divalproex Sodium (Depakote) 500 mg PO BID [facility] Last Admin: 10/30/19 08:57 Dose: 500 mg Documented by: Duloxetine HCl (Cymbalta) 60 mg PO DAILY [facility] Last Admin: 10/30/19 08:56 Dose: 60 mg Documented by: Furosemide (Lasix) 60 mg PO DAILY [facility] Last Admin: 10/30/19 08:56 Dose: 60 mg Documented by: Gabapentin (Neurontin) 300 mg PO TIDCM [facility] Last Admin: 10/30/19 12:06 Dose: 300 mg Documented by: Ceftriaxone Sodium (Rocephin) 1 gm in 50 mls @ 100 mls/hr IV Q24H [facility] Last Infusion: 10/29/19 22:35 Dose: Infused Documented by: Sodium Chloride () 250 mls @ 15 mls/hr IV .[id number] PRN PRN Reason: Saline Flush Sodium Chloride () 250 mls @ 15 mls/hr IV .[id number] PRN PRN Reason: Additional IVPB Infusion Pantoprazole Sodium (Protonix) 40 mg PO BID [facility] Last Admin: 10/30/19 08:56 Dose: 40 mg Documented by: Polyethylene Glycol (Miralax) 17 gm PO DAILY [facility] Last Admin: 10/30/19 08:57 Dose: Not Given Documented by: Pravastatin Sodium (Pravachol) 40 mg PO QHS [facility] Last Admin: 10/29/19 21:54 Dose: 40 mg Documented by: Primidone (Mysoline) 50 mg PO QHS [facility] Last Admin: 10/29/19 21:54 Dose: 50 mg Documented by: Sodium Chloride () 10 - 40 ml IV UD PRN PRN Reason: SALINE FLUSH Last Admin: 10/30/19 04:31 Dose: 10 ml Documented by: Tamsulosin HCl (Flomax) 0.4 mg PO QHS [facility] Last Admin: 10/29/19 21:54 Dose: 0.4 mg Documented by: Discharge Diet: No Restrictions Discharge Activity: Return to Normal Activity Home Medications: Medications to take at Discharge Cholecalciferol (VIT D3) [Vitamin D3] 1,000 unit PO DAILY 12/29/15 Duloxetine Hcl [Cymbalta] 60 mg PO DAILY 12/29/15 Gabapentin [Neurontin] 300 mg PO TID 12/29/15 Acetaminophen [Tylenol Tablet] 1,000 mg PO Q6H PRN PRN 12/30/16 Ascorbic Acid [Vitamin C] 500 mg PO BID 01/01/18 Omeprazole 40 mg PO BID 01/01/18 Divalproex Sodium [Depakote] 500 mg PO BID 08/05/18 Pravastatin [Pravachol] 40 mg PO QHS 08/05/18 Solifenacin Succinate [Vesicare] 10 mg PO DAILY 08/05/18 Apixaban [Eliquis] 5 mg PO BID 03/18/19 Fluticasone 0.05% [Flonase Nasal [place]] 2 spray NASAL DAILY 03/18/19 Furosemide [Lasix] 60 mg PO DAILY 03/18/19 Guaifenesin Dm [Robitussin Dm] 10 ml PO Q4H PRN 03/18/19 Primidone 50 mg PO QHS 03/18/19 SimETHICONE [Mylicon] 80 mg PO TIDCM 03/18/19 Lactobacillus Acidophilus [Acidophilus] 1 ea PO DAILY 09/06/19 Tamsulosin HCl [Flomax] 0.4 mg PO QHS 09/06/19 Magnesium Hydroxide [Milk Of Magnesia] 30 ml PO DAILY PRN PRN 09/23/19 Nystatin 500,000U/5ML [Mycostatin] 5 ml PO 4X/DAY 09/23/19 Polyethylene Glycol 3350 [Miralax] 17 gm PO DAILY 09/23/19 Cefpodoxime Proxetil [Vantin] 200 mg GT BID #28 tab 10/30/19 Following Prescrptions Were Given to Patient: Cefpodoxime Proxetil [Vantin] 200 mg GT BID #28 tab Transmission Status: Pending to Dr. TATTOFF #30 Primary Care Physician: Gonzales Pinto MD [Primary Care Provider] - Please Follow Up With: Alejandra Villavicencio MD When: 1-2 weeks Medical Necessity - Tobacco Use Smoking Status: Never smoker Tobacco Use: Non-smoker Meaningful Use Info Meaningful Use Diagnoses (Choose all that apply): None applicable Inpatient E&M: [id number] [facility]
--- NOTE | 2019-10-30 13:31 | NURSING ---
called to room by [employer], pt c/o severe pain rt flank states norco recently given not touching her severe pain, asking about something else. pt verbalized rt flank pain radiating to groin. states was suppose to have surgery for kidney stones prior to COVID 19 outbreaks[address] Informed primary RN. Dr. Holguin sent text message to this regard
[2019-10-30 14:49] VITALS: BP 112/65; PULSE 72; RESP 16; TEMP 36.7; O2SAT 95
[2019-10-30] MEDS: oxyCODONE 5 MG Tablet PO (15:36)
--- NOTE | 2019-10-30 16:58 | NURSING ---
spoke with pharmacist Greyson at [facility] regarding script change from route of GT to PO
== END 2019-10-30 17:07 | disposition home health service (06) ==
LOC: ED 18:26 → MS3 20:57
PROVIDERS: Internal Medicine; Admitting Provider Internal Medicine; Emergency Provider Emergency Medicine; PCP Family Medicine; Visit Provider Internal Medicine
DX: N20.0 Calculus of kidney (principal); N30.01 Acute cystitis with hematuria; M17.11 Unilateral primary osteoarthritis, right knee; N63.0 Unspecified lump in unspecified breast; D63.8 Anemia in other chronic diseases classified elsewhere; D50.9 Iron deficiency anemia, unspecified; E11.42 Type 2 diabetes mellitus with diabetic polyneuropathy; B96.89 Other specified bacterial agents as the cause of diseases classified elsewhere; G47.33 Obstructive sleep apnea (adult) (pediatric); E66.01 Morbid (severe) obesity due to excess calories; G89.29 Other chronic pain; I10 Essential (primary) hypertension; M99.03 Segmental and somatic dysfunction of lumbar region; M99.05 Segmental and somatic dysfunction of pelvic region; M99.02 Segmental and somatic dysfunction of thoracic region; Z98.84 Bariatric surgery status; Z68.42 Body mass index [BMI] 45.0-49.9, adult; Z79.899 Other long term (current) drug therapy; Z79.01 Long term (current) use of anticoagulants; Z79.51 Long term (current) use of inhaled steroids; Z86.718 Personal history of other venous thrombosis and embolism
CPT/HCPCS: 36415; 74176; 80053; 81001; 83540; 83550; 85025; 85610; 85730; 87077; 87086; 87088; 87184; 87186; 96365; 96366; 97116; 97162; 97166; 97535; 99218; 99284; J7030; A4216; G0378

== ENCOUNTER → 2019-11-05 10:33 | Outpatient (CLI) | payer MEDICARE, MEDICAID, SELFPAY ==
[2019-10-28 22:30] VITALS: BMI 46.5
[2019-11-05 12:49] LABS: Absolute Lymphocyte Count 1.18 X10^3/uL (0.83-4.51); Basophil# 0.04 X10^3/uL; Basophil% 0.8 % (0-1); Eosinophil# 0.25 X10^3/uL; Hemoglobin 11.1 g/dL (12.0-15.0); Lymphocyte # 1.18 X10^3/ul (4.0); Lymphocyte % 23.6 % (19-41); Mean Corp Hgb Conc 30.8 g/dL (32-36); Mean Corpuscular Hgb 29.4 pg (27.0-32.0); Mean Corpuscular Volume 95.2 fL (81-99); Mean Platelet Vol. 9.5 fl (6.2-12.0); Monocyte# 0.48 X10^3/uL; Monocyte% 9.6 % (0-10); NRBC Flagged by Analyzer 0 % (0-5); Neutrophil # 3.03 X10^3/uL (2.7-7.7); Neutrophil % 60.4 % (47-70); Platelet Count 296 K/mm3 (150-450); RBC Distribution Width CV 13.6 % (11.6-14.6); RBC Distribution Width SD 47.4 fl (35.1-43.9); Red Blood Count 3.78 M/mm3 (4.2-5.4)
[2019-11-05 13:19] LABS: Anion Gap 6 (5-15); BUN 17 mg/dL (7-18); BUN/Creat Ratio 24.5 RATIO (10-20); Calcium,Total 8.7 mg/dL (8.5-10.1); Chloride 107 mmol/L (98-107); EST Glomerular Filtration Rate 88 mL/min (>60); Est Glom Filt Rate - Afr Amer 106 mL/min (>60); Glucose 102 mg/dL (74-106); Potassium 3.7 mmol/L (3.5-5.1); Sodium Level 143 mmol/L (136-145)
== END ==
PROVIDERS: PCP Family Medicine; Visit Provider Family Medicine
DX: L03.90 Cellulitis, unspecified (principal)
CPT/HCPCS: 36415; 80048; 85025

== ENCOUNTER → 2019-12-23 14:49 | Outpatient (CLI) | payer MEDICARE, SELFPAY ==
--- NOTE | 2019-12-23 14:56 | BD_ITS ---
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 COMPARISON: Comparison is made with prior examination dated April 06, 2015. FINDINGS: Lumbar Spine (L1-L4): g/cm2 (0.977) / T-score (-1.7) / Z-score (0.0) Findings are suggestive of osteopenia with a moderate fracture risk. Left Femur Total: g/cm2 (0.862) / T-score (-1.2) / Z-score (0.5) Left Femoral Neck: g/cm2 (0.785) / T-score (-1.8) / Z-score (0.0) Right Femur Total: g/cm2 (0.828) / T-score (-1.4) / Z-score (0.2) Right Femoral Neck: g/cm2 (0.898) / T-score (-1.0) / Z-score (0.9) The T-Scores on the most recent prior examination were: Lumbar Spine (L1-L4): There has been worsening of bone density since the previous examination. Left Femur Total: which represents a worsening of 4.6%. Right Femur Total: which represents a worsening of 9.3%. BD/Dexa Bone Density Study IMPRESSION: The patient is considered osteopenic as outlined below according to World [place] Organization (WHO) criteria with a moderate fracture risk. There has been worsening of bone density since the previous examination. Reference Information: The T-score is the number of standard deviations above or below the standard which is normal for young adults at their peak bone mineral density. The World Health Organization (WHO) interprets the T-scores as follows: Above -1 Normal bone density Between -1 and -2.5 Osteopenia Equal to / or below -2.5 Osteoporosis As a practical clinical guideline, osteopenia may be graded as follows: Mild -1 through -1.5 Moderate -1.6 through -2.0 Severe -2.1 through -2.4 The Z-score is the number of standard deviations above or below age-matched controls. A Z-score of less than -1.5 would be considered abnormal. References: 1. NIH Osteoporosis and Related Bone Diseases http://www.osteo.org 2. International Society for Clinical Densitometry http://www.iscd.org 3. National Osteoporosis Foundation http://www.nof.org Electronically Signed: Joshua Rosario, at 8:57 EDT , Service support ,
== END ==
PROVIDERS: PCP Family Medicine; Referring Provider Family Medicine; Visit Provider Family Medicine
DX: N95.9 Unspecified menopausal and perimenopausal disorder (principal)
CPT/HCPCS: 77080

== ENCOUNTER 2020-01-24 07:38 | Day surgery (SDC) | payer MEDICARE, MEDICAID, SELFPAY ==
[2020-01-24] VITALS (7 sets, daily range): BP systolic 113–143; BP diastolic 51–74; PULSE 69–79; RESP 16–18; TEMP 36.5–37.4; O2SAT 98–100; BMI 46.5
[2020-01-24 08:40] LABS: Bedside Glucose 94 mg/dL (70-110)
[2020-01-24] MEDS: Lactated Ringers 1,000 ML 100 ML IV (08:40)
[2020-01-24] MEDS: Bupivacaine 0.25% 30 ML Vial (08:52)
[2020-01-24] MEDS: MethylPREDNISolone Acetate 80 MG/ML Vial (08:52)
--- NOTE | 2020-01-24 09:00 | RAD_ITS ---
STUDY: X-RAY - RIGHT KNEE REASON FOR EXAM: Female, 74 years old. RADIO FREQUENCY ABLATION RT KNEE TECHNIQUE: 5 coned-down intraoperative view(s) of the knee. COMPARISON: None. FINDINGS: Intraoperative imaging provided for radiofrequency ablation of the right knee. RAD/Knee 1 or 2 Views IMPRESSION: Intraoperative imaging provided for radiofrequency ablation of the right knee. Electronically Signed: Joshua Rosario, at 9:07 EDT , Service support ,
--- NOTE | 2020-01-24 11:40 | OP.PCM_ITS ---
Report of Operation Date of Procedure: 01/24/20 Description of Surgical Findings:: PREOPERATIVE DIAGNOSIS: Osteoarthritis of the right knee, chronic postoperative knee pain status post total knee arthroplasty POSTOPERATIVE DIAGNOSIS: Osteoarthritis of the right knee, chronic postoperative knee pain status post total knee arthroplasty PROCEDURE PERFORMED: Right knee superomedial, superolateral, and inferomedial genicular nerves radiofrequency ablation under fluoroscopy guidance. ANESTHESIA: MAC. BLOOD LOSS: Minimal. COMPLICATIONS: None. DESCRIPTION OF PROCEDURE: History and physical of today was reviewed. Risks and benefits of the procedure were explained. The patient understood and agreed to proceed. Informed consent was obtained. IV inserted per routine protocol. The patient was taken to the operating room and placed in the supine position. The right knee was prepped and draped in a sterile fashion using iodine x3. Under fluoroscopy guidance on AP view the right knee was visualized. The skin and subcutaneous tissue was anesthetized with approximately 5 mL of 1% lidocaine using a 25-gauge regular needle at the vicinity of the superomedial, superolateral, and inferomedial genicular nerves. Under direct visualization of fluoroscopy on AP view as well as lateral view, starting on the right superomedial, ending on the right inferomedial, passing through the right superolateral genicular nerves, the needle was passed through the skin. The tip of the needle was maneuvered and directed towards the diaphyseal junction of each corresponding nerve. Once tip of the needle was in the vicinity of the diaphysis and in contact with the bone, after confirmation on AP as well as lateral view and repeated negative aspiration for blood, the radiofrequency ablation probe was inserted at each level impedance was then recorded at the superior medial 297 at the superior lateral 264 at the inferior medial 341 ohms motor evoked potential was then initiated to 1.5 V without any apparent motor response the probe was then removed intact and a total of 6 cc of preservative- free 1% lidocaine were injected in divided doses between those 3 levels the radiofrequency ablation broke probe was then reinserted after repeated confirmation of AP oblique as well as lateral view radiofrequency ablation was then initiated to 80 ?C for 90 seconds at each level once concluded the probes were then removed intact and a total of 4 cc of preservative-free 0.25% Marcaine and 40 mg of Depo-Medrol were injected in divided doses between those 3 levels . The needles were then removed intact. The patient experienced no sign or symptoms of intravascular injection. The patient experienced no paresthesia. The procedure was completed without any apparent difficulty or any complications. The patient appeared to tolerate it well, as well as sensory exam was unchanged from prior to the procedure. ASSESSMENT AND PLAN: This is a 74-year-old female with osteoarthritis of the right knee chronic postoperative knee pain status post total knee arthroplasty status post right knee superior medial superior lateral inferior medial genicular nerve radiofrequency ablation under fluoroscopic guidance, patient will continue current medications, patient will follow approximately 2 weeks for reevaluation.
== END 2020-01-24 10:16 | disposition home or self-care (01) ==
LOC: SDC 07:39 → AC 07:40
PROVIDERS: PCP Family Medicine; Referring Provider Anesthesiology Pain Medicine; Visit Provider Anesthesiology Pain Medicine
PROC: (CPT 64640; principal; 2020-01-24 08:55)
DX: M17.11 Unilateral primary osteoarthritis, right knee (principal); G89.28 Other chronic postprocedural pain; Z96.653 Presence of artificial knee joint, bilateral; M53.3 Sacrococcygeal disorders, not elsewhere classified; M25.551 Pain in right hip; M47.817 Spondylosis without myelopathy or radiculopathy, lumbosacral region; M51.37 Other intervertebral disc degeneration, lumbosacral region; M54.17 Radiculopathy, lumbosacral region; M46.96 Unspecified inflammatory spondylopathy, lumbar region; Z79.891 Long term (current) use of opiate analgesic
CPT/HCPCS: 01991; 64640; 73560; 76000; 82962; J7120

== ENCOUNTER → 2020-02-23 15:37 | Outpatient (CLI) | payer MEDICARE, MEDICAID, SELFPAY ==
[2020-01-24 08:08] VITALS: BMI 46.5
[2020-02-23 18:19] LABS: Anion Gap 5 (5-15); BUN 12 mg/dL (7-18); BUN/Creat Ratio 12.1 RATIO (10-20); Calcium,Total 8.4 mg/dL (8.5-10.1); Chloride 107 mmol/L (98-107); Creatinine, Serum 0.99 mg/dL (0.55-1.02); EST Glomerular Filtration Rate 58 mL/min (>60); Est Glom Filt Rate - Afr Amer 71 mL/min (>60); Glucose 78 mg/dL (74-106); Potassium 3.6 mmol/L (3.5-5.1); Sodium Level 139 mmol/L (136-145); Thyroid Stim Hormone (TSH) 2.01 uIU/mL (0.358-3.74)
[2020-02-23 18:31] LABS: Vitamin D,25 Hydroxy 42.8 ng/mL
== END ==
PROVIDERS: PCP Family Medicine; Referring Provider Family Medicine; Visit Provider Family Medicine
DX: M85.80 Other specified disorders of bone density and structure, unspecified site (principal)
CPT/HCPCS: 36415; 80048; 82306; 84443

== ENCOUNTER 2020-04-24 06:48 | Day surgery (SDC) | payer MEDICARE, MEDICAID, SELFPAY ==
[2020-01-24 08:08] VITALS: BMI 46.5
[2020-04-24] VITALS (8 sets, daily range): BP systolic 98–119; BP diastolic 41–87; PULSE 74–79; RESP 16–18; TEMP 36.4–37.1; O2SAT 96–100; BMI 48.7
[2020-04-24] MEDS: Lactated Ringers 1,000 ML 100 ML IV (07:39)
[2020-04-24 07:45] LABS: Bedside Glucose 83 mg/dL (70-110)
--- NOTE | 2020-04-24 08:45 | RAD_ITS ---
STUDY: X-RAY - RIGHT HIP REASON FOR EXAM: Female, 75 years old. Right hip steroid injection. TECHNIQUE: 3 fluoroscopic views of the hip. COMPARISON: None. FINDINGS: Fluoroscopic images images demonstrate hip steroid injection by history containing contrast. RAD/Fluoro Guided Needle Placement IMPRESSION: Steroid injection. Correlate with findings at fluoroscopy. Electronically Signed: Manjit Allison MD at 23:54 EST , Service support ,
[2020-04-24] MEDS: Bupivacaine 0.25% 30 ML Vial (08:48)
[2020-04-24] MEDS: MethylPREDNISolone Acetate 40 MG/ML Vial IM (08:48)
--- NOTE | 2020-04-24 14:51 | OP.PCM_ITS ---
Report of Operation Date of Procedure: 04/24/20 Description of Surgical Findings:: PROCEDURE: Right hip intra-articular steroid injection under fluoroscopic guidance PREOPERATIVE DIAGNOSIS: Osteoarthritis of the right hip POSTOPERATIVE DIAGNOSIS: Osteoarthritis of the right hip ANESTHESIA: MAC COMPLICATIONS: None BLOOD LOSS: Minimal PROCEDURE IN DETAIL: History and physical today was reviewed. Risks and benefits of the procedure were explained. The patient understood, agreed to our procedure, and informed consent was obtained. IV inserted per routine protocol. The patient was taken to the operating room, placed in a supine position the right hip area was prepped and draped in a sterile fashion using iodine x3 under fluoroscopy guidance on AP view, the right hip joint was visualized the skin and subcutaneous tissue anesthetized with approximately 3 cc of 1% lidocaine using a 25-gauge regular needle a pproximately 3 cm cephalad to the right greater trochanter under direct vision fluoroscopy on AP view using a 22-gauge 5 inch spinal needle using the lateral approach the needle passed through the skin to tip of the needle's maneuver and directed towards the superior most aspect of the hip joint once the tip of the needle to the was at the vicinity of the joint after negative aspiration for blood and positive aspiration of synovial fluid a total of 3 cc of contrast were injected to confirm correct placement of the needle as well as halo spread around the hip joint after repeated negative aspiration for blood and repeated confirmation of AP as well as oblique view a total of 10 cc of preservative-free 0.25% Marcaine with 80 mg of Depo-Medrol were injected easily. The needle was then removed intact.The patient experienced no signs or symptoms of intrathecal, or intravascular injection. The patient experienced no paraesthesia. The procedure was completed without any apparent difficulty, or any complication. The patient appeared to tolerate well. ASSESSMENT AND PLAN: This is a 75-year-old female with osteoarthritis of the right hip status post right hip intra-articular steroid injection under fluoroscopic guidance. The patient will continue her current medications. The patient will follow in approximately 2 weeks for reevaluation.
== END 2020-04-24 10:00 | disposition home or self-care (01) ==
LOC: SDC 06:48 → AC 06:48
PROVIDERS: PCP Family Medicine; Referring Provider Anesthesiology Pain Medicine; Visit Provider Anesthesiology Pain Medicine
PROC: 3E0U3GC Introduction of Other Therapeutic Substance into Joints, Percutaneous Approach (ICD-10-PCS; CPT 20610; principal; 2020-04-24 08:25)
DX: M16.11 Unilateral primary osteoarthritis, right hip (principal); M47.817 Spondylosis without myelopathy or radiculopathy, lumbosacral region; M51.37 Other intervertebral disc degeneration, lumbosacral region; M54.17 Radiculopathy, lumbosacral region; M46.96 Unspecified inflammatory spondylopathy, lumbar region; Z79.891 Long term (current) use of opiate analgesic; Z96.653 Presence of artificial knee joint, bilateral; M53.3 Sacrococcygeal disorders, not elsewhere classified; G89.28 Other chronic postprocedural pain
CPT/HCPCS: 20610; 76000; 77002; 82962; J7120

== ENCOUNTER 2020-05-24 20:17 | Inpatient (IN) | payer MEDICARE, MEDICAID, SELFPAY ==
[2020-04-24 07:27] VITALS: BMI 48.7
[2020-05-24 20:18] VITALS: BP 138/72; PULSE 79; RESP 17; TEMP 36.9; O2SAT 96; BMI 49.8
[2020-05-24 20:23] VITALS: BP 138/72; PULSE 72; RESP 18; TEMP 36.9; O2SAT 95
[2020-05-24 21:42] LABS: Bacteria 0 SEEN /hpf (None Seen); Mucous, Urine 0 SEEN /hpf (<or=2+); Red Blood Cells-Urine 0 SEEN /hpf (0-5); Squamous Epithelial Cells - UA 0 SEEN /hpf (5-10)
[2020-05-24 21:44] LABS: Absolute Lymphocyte Count 1.46 X10^3/uL (0.83-4.51); Absolute Neutrophil Count 1.4 X10^3/uL (2.0-7.7); Basophil# 0.04 X10^3/uL; Basophil% 1.1 % (0-1); Eosinophil# 0.16 X10^3/uL; Eosinophils% 4.5 % (0-5); Hemoglobin 11.8 g/dL (12.0-15.0); Lymphocyte # 1.46 X10^3/ul (4.0); Lymphocyte % 40.9 % (19-41); Mean Corp Hgb Conc 31.1 g/dL (32-36); Mean Corpuscular Hgb 27.8 pg (27.0-32.0); Mean Corpuscular Volume 89.6 fL (81-99); Mean Platelet Vol. 9.9 fl (6.2-12.0); Monocyte# 0.48 X10^3/uL; Monocyte% 13.4 % (0-10); NRBC Flagged by Analyzer 0 % (0-5); Neutrophil % 39.3 % (47-70); Platelet Count 236 K/mm3 (150-450); RBC Distribution Width SD 49.3 fl (35.1-43.9); Red Blood Count 4.24 M/mm3 (4.2-5.4); White Blood Count 3.6 K/mm3 (4.4-11.0)
[2020-05-24 21:54] LABS: Color, Urine Yellow (Yellow); Glucose, Dipstick Normal (Normal); Ketone-Dipstick 5 mg/dl (Negative); Leukocyte Esterase-Dipstick 500 /ul (Negative); Nitrite-Dipstick Positive (Negative); Occult Blood-Urine 50 /ul (Negative); Protein-Dipstick 100 mg/dl (Negative); Urine Bilirubin Dipstick Negative (Negative); Urine Clarity Turbid (Clear); Urine Urobilinogen Normal (Normal)
[2020-05-24 22:00] LABS: Anion Gap 4 (5-15); BUN 12 mg/dL (7-18); BUN/Creat Ratio 14.7 RATIO (10-20); Calcium,Total 7.4 mg/dL (8.5-10.1); Chloride 110 mmol/L (98-107); Creatinine, Serum 0.81 mg/dL (0.55-1.02); EST Glomerular Filtration Rate 73 mL/min (>60); Est Glom Filt Rate - Afr Amer 88 mL/min (>60); Estimated Creatinine Clearance 54.83 ml/min; Glucose 94 mg/dL (74-106); Potassium 4.2 mmol/L (3.5-5.1); Sodium Level 140 mmol/L (136-145)
--- NOTE | 2020-05-24 22:01 | ED.RN ---
shelter updated on made aware of patients condition at this time
[2020-05-24 22:03] LABS: Lactic Acid 1.5 mmol/L (0.4-1.9); White Blood Cells >100 SEEN /hpf (0-5)
--- NOTE | 2020-05-24 22:45 | PCM.HP.STD ---
Problem List (1) Cystitis Status: Acute (2) Unilateral primary osteoarthritis, right knee Status: Chronic (3) Chronic pain following surgery or procedure Status: Chronic (4) Morbid obesity with BMI of 45.0-49.9, adult Status: Chronic (5) ROXIE (obstructive sleep apnea) Status: Chronic Comment: says she got off CPAP_ when she had gastric bypass surgery ......wieghed 248 after bypass and was up to 312 recently but, has been losing weight, unintentional. 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 Her symptoms has been going on for about a week. Associated with her symptoms is burning with urination; urinary urgency; increased urinary frequency; urinary incontinence; and lower abdominal pressure and malaise. Reportedly patient's PCP requested that patient be brought to the emergency department for IV antibiotics. Past Medical History Past Medical History (Chronic Problems): Chronic Problems (Last Reviewed 05/25/20 @ 00:[address] Elpidio Faust MD) Unilateral primary osteoarthritis, right knee (Chronic) Chronic pain following surgery or procedure (Chronic) Morbid obesity with BMI of 45.0-49.9, adult (Chronic) ROXIE (obstructive sleep apnea) (Chronic) says she got off CPAP_ when she had gastric bypass surgery ......wieghed 248 after bypass and was up to 312 recently but, has been losing weight, unintentional. 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 (Chronic) Shortness of breath on exertion (Chronic) Medical History: Medical History (Last Reviewed 05/25/20 @ 00:[address] Elpidio Faust MD) Arthritis M19.90 Bilateral headaches R51 Carpal tunnel syndrome G56.00 Cataracts, both eyes H26.9 Closed left arm fracture S42.302A Diabetes E11.9 FHx: cholecystectomy Z84.89 Heart disease I51.9 History of gallstones Z87.19 Neuropathy G62.9 Osteoarthritis M19.90 Polycystic ovaries E28.2 Hypertension I10 Allergies ampicillin [From Unasyn] Allergy (Severe, Verified 05/24/20 20:17) Other Blisters on tongue /throat difficulty breathing sore tongue/throat warfarin sodium [From Coumadin] Allergy (Severe, Verified 05/24/20 20:17) Low red blood cells Home Medications: Ambulatory Orders Medication Instructions Recorded Cholecalciferol (VIT D3) [Vitamin 1,000 unit PO DAILY 12/29/15 D3] Duloxetine Hcl [Cymbalta] 60 mg PO DAILY 12/29/15 Gabapentin [Neurontin] 300 mg PO TID 12/29/15 Acetaminophen [Tylenol Tablet] 500 mg PO DAILY 12/30/16 Omeprazole 40 mg PO BID 01/01/18 Pravastatin [Pravachol] 40 mg PO QHS 08/05/18 Solifenacin Succinate [Vesicare] 10 mg PO DAILY 08/05/18 Apixaban [Eliquis] 5 mg PO BID 03/18/19 Fluticasone 0.05% [Flonase Nasal 2 spray NASAL DAILY 03/18/19 Pyatt] Furosemide [Lasix] 60 mg PO DAILY 03/18/19 Guaifenesin Dm [Robitussin Dm] 10 ml PO Q4H PRN 03/18/19 Primidone 100 mg PO QHS 03/18/19 SimETHICONE [Mylicon] 80 mg PO TIDCM 03/18/19 Lactobacillus Acidophilus 1 ea PO DAILY 09/06/19 [Acidophilus] Tamsulosin HCl [Flomax] 0.4 mg PO QHS 09/06/19 Magnesium Hydroxide [Milk Of 30 ml PO DAILY PRN PRN 09/23/19 Magnesia] Nystatin 500,000U/5ML [Mycostatin] 5 ml PO 4X/DAY PRN 09/23/19 Polyethylene Glycol 3350 [Miralax] 17 gm PO DAILY PRN 09/23/19 Bupropion HCl [Bupropion Xl] 150 mg PO DAILY 01/24/20 Hydrocodone/Acetaminophen [Sedan 1 ea PO Q12H PRN 01/24/20 5-325 Tablet] Mirabegron [Myrbetriq] 50 mg PO QHS 01/24/20 Divalproex Sodium [Depakote] 500 mg PO BID 03/23/20 Famotidine [Pepcid] 20 mg PO DAILY 03/23/20 Penicillin V Potassium 250 mg PO TID 04/24/20 Cephalexin [Keflex] 250 mg PO QHS 05/24/20 Melatonin 3 mg PO QHS 05/24/20 Surgical History: Surgical History (Last Reviewed 05/25/20 @ 01:[address] Elpidio Faust MD) History of carpal tunnel surgery Z98.890 History of hysterectomy Z90.710 Total knee replacement status Z96.659 Surgical History: cholecystectomy, gastric bypass, hysterectomy, tonsillectomy, - - Gastric bypass, surgery for left arm fracture Psychiatric History: No pertinent psych hx CLINICAL RESOURCE NURSE History: No pertinent CLINICAL RESOURCE NURSE history, dysfunctional uterine bld - s/p hysterectomy Smoking Status: Never smoker - *Family History Paternal Family History: Family History (Last Reviewed 05/25/20 @ 00:[address] Elpidio Faust MD) Other Heart disease High cholesterol Hypertension Myocardial infarction History Items: Cancer, Heart Disease, - Maternal Family History: Family History (Last Reviewed 05/25/20 @ 00:[address] Elpidio Faust MD) Other Heart disease High cholesterol Hypertension Myocardial infarction History Items: Heart Disease, Hypertension Review of Systems Constitutional: Reports: Malaise. Denies: Chills, Fever, Weight Change HEENT: Denies: Head Aches, Sinus Congestion, Sinus Drainage Cardiovascular: Denies: Chest Pain, Palpitations Respiratory: Denies: Cough, Shortness of breath at rest, Sputum production Gastrointestinal: Denies: Abdominal Pain, Nausea, Vomiting Genitourinary: Reports: Dysuria, Frequency, Incontinence, Urgency Musculoskeletal: Denies: Joint Pain, Joint Tenderness Skin: Denies: Rash, Wounds Neurological: Denies: Numbness, Tingling, Focal weakness Psychiatric: Denies: Anxiety, Depression, Homicidal Ideations, Suicidal Ideations Hematologic/ Lymphatic: Denies: Easy Bruising, Easy Bleeding VTE Information - Inpt Only VTE Present on Admission: No VTE Mechan Device Prophylaxis: None VTE Pharm Prophylaxis ordered?: No Reason prophylaxis not ordered:: Treatment Not Indicated - Home Eliquis continued Patient Problems: Active and Suspected Problems (Last Reviewed 05/25/20 @ 00:[address] Elpidio Faust MD) Cystitis (Acute) Urinary tract infection (Acute) - Physical Exam Vitals/I&O's: Vital Signs Temp Pulse Resp BP Pulse Ox 98.5 F 72 18 138/72 H 95 05/24/20 20:23 05/24/20 20:23 05/24/20 20:23 05/24/20 20:23 05/24/20 20:23 Oxygen Delivery Method Room Air Weight: 136 kg Body Mass Index (BMI) 49.8 General: Alert, Oriented x3, Cooperative HEENT: Atraumatic, PERRLA, EOMI, Normocephalic Neck: Supple, No JVD, Negative Carotid Bruits Lungs: Clear to auscultation, Normal air movement, No rhonchi, No wheeze, No rales Cardiovascular: Regular rate, No murmurs Abdomen: Bowel Sounds Present, Soft, Non Tender Extremities: No edema, Capillary Refill Less than 3 Seconds Skin: No rashes, No breakdown Musculoskeletal: No Tenderness to Palpation of Joints or Extremities Neurological: Cranial nerves II-XII grossly intact Psych/Mental Status: Normal Affect, Appropriate Laboratory Results 05/24/20 21:30: WBC 3.6 L, RBC 4.24, Hgb 11.8 L, Hct 38.0, MCV 89.6, MCH 27.8, MCHC 31.1 L, RDW Std Deviation 49.3 H, RDW Coeff of Chani 15.0 H, Plt Count 236, MPV 9.9, Immature Gran % (Auto) 0.800, Neut % (Auto) 39.3 L, Lymph % (Auto) 40.9, [place] % (Auto) 13.4 H, Eos % (Auto) 4.5, Baso % (Auto) 1.1 H, Absolute Neuts (auto) 1.4 L, Absolute Lymphs (auto) 1.46, Nucleated RBC % 0 05/24/20 21:30: Sodium 140, Potassium 4.2, Chloride 110 H, Carbon Dioxide 26.0, Anion Gap 4 L, BUN 12, Creatinine 0.81, Estim Creat Clear Calc 54.83, Est GFR (MDRD) Af Amer 88, Est GFR (MDRD) Non-Af 73, BUN/Creatinine Ratio 14.7, Glucose 94, Calcium 7.4 L 05/24/20 21:30: Lactic Acid 1.5 05/24/20 21:30: Urine Color Yellow, Urine Clarity Turbid, Urine pH 6.0, Ur Specific [place] 1.020, Urine Protein 100 H, Urine Glucose (UA) Normal, Urine Ketones 5 H, Urine Occult Blood 50 H, Urine Nitrite Positive H, Urine Bilirubin Negative, Urine Urobilinogen Normal, Ur Leukocyte Esterase 500 H, Urine RBC 0 SEEN, Urine WBC >100 SEEN, Ur Squamous Epith Cells 0 SEEN, Urine Bacteria 0 SEEN, Urine Mucus 0 SEEN Current Medications Linezolid (Zyvox 600mg) 600 mg in 300 mls @ 200 mls/hr IV X1 ONE Stop: 05/25/20 00:12 Aztreonam 2 gm/ Sodium (Chloride) 100 mls @ 150 mls/hr IV X1 ONE Stop: 05/24/20 23:22 Assessment/Plan All Active Problems (Last Reviewed 05/25/20 @ 00:[address] Elpidio Faust MD) Cystitis (Acute) Urinary tract infection (Acute) Abdominal pain (Resolved) Acute cystitis Review of emergency department labs showed abnormal urinalysis. Review of old record showed that on 10/28/2019 urine culture showed Pseudomonas and VRE. Per previous sensitivities discussed with emergency department doctor and patient was started on aztreonam and linezolid. Azithromycin and linezolid ordered. Blood cultures were ordered at the emergency department; follow and adjust antibiotics as necessary. Trend CBC and BMP History of DVT Eliquis continued. Morbid obesity: BMI of 48.6 kg/m?. Complicates care. Manish modification recommended. DVT prophylaxis Eliquis as above. Inpatient E&M: 17435 Init Hosp L2
[2020-05-24 22:47] VITALS: BP 143/67; PULSE 74; RESP 16; TEMP 36.7; O2SAT 98
--- NOTE | 2020-05-24 22:54 | ED.DCSUM_ITS ---
- ER Visit Summary Date of Service: 05/24/20 Chief Complaint: UTI History of Present Illness: The patient is a 75 F presenting from assisted living for urinary tract infection. She was sent by her primary care physician due to failed outpatient treatment. Patient has a history of VRE UTIs requiring IV antibiotics. Previous cultures have been sensitive to linezolid and Aztreonam. She denies fever. She complains of dysuria and suprapubic abdominal pain. She has nausea with no vomiting. Denies other complaints. Physical Examination: Vitals are stable. Patient is afebrile. Alert no acute distress. HEENT exam is unremarkable. Neck is supple. Lungs are clear and equal bilaterally. Heart is regular rate and rhythm. Abdomen is soft mild suprapubic tenderness with no guarding or rebound Extremities are unremarkable. Skin is warm and dry. No focal neurologic deficit. Remainder of exam is unremarkable. Emergency Department Course and Treatment: CBC shows white count 3.6, hemoglobin 11.8. Urinalysis over 100 white blood cells. Lactic acid is normal. Urine culture was sent. She was given Tylenol, linezolid, aztreonam. Discussed with the hospitalist for admission. Disposition: Admission Impression: UTI, failed outpatient treatment This note was generated with [employer] dictation software. It may contain incorrect words, spelling, and punctuation that were not noted in review of the chart prior to signing ED Disposition - Plan for ED Patient: Referrals: Gonzales Pinto MD [Primary Care Provider] -
[2020-05-24] MEDS: Acetaminophen 500 MG Tablet 1000 MG PO (22:57)
[2020-05-24 23:10] VITALS: BP 143/87; PULSE 74; RESP 15; TEMP 36.7; O2SAT 97
--- NOTE | 2020-05-24 23:14 | ED.RN ---
[facility] INFORMED OF PT ADMISSION.
[2020-05-24 23:38] VITALS: BP 150/65; PULSE 75; RESP 20; TEMP 37; O2SAT 96
[2020-05-24 23:42] VITALS: BMI 48.5; BMI 49.0
[2020-05-25] MEDS: Linezolid 600 MG 600 MG/300 ML BAG 200 MG IV ×3 (00:14→22:05)
[2020-05-25 00:15] VITALS: PULSE 75; RESP 16; O2SAT 96
[2020-05-25] MEDS: Gabapentin 300 MG Capsule PO ×3 (05:35→21:08)
[2020-05-25 05:53] VITALS: BP 102/63; PULSE 74; RESP 16; TEMP 36.9; O2SAT 96
[2020-05-25] MEDS: HYDROcodone Bitartrate/Apap 5/325 Tablet PO ×2 (06:07→21:07)
[2020-05-25 06:52] LABS: Absolute Lymphocyte Count 1.38 X10^3/uL (0.83-4.51); Absolute Neutrophil Count 0.9 X10^3/uL (2.0-7.7); Basophil# 0.03 X10^3/uL; Basophil% 1.1 % (0-1); Eosinophil# 0.14 X10^3/uL; Hematocrit 33.5 % (37-47); Hemoglobin 10.1 g/dL (12.0-15.0); Lymphocyte # 1.38 X10^3/ul (4.0); Lymphocyte % 48.9 % (19-41); Mean Corp Hgb Conc 30.1 g/dL (32-36); Mean Corpuscular Hgb 26.9 pg (27.0-32.0); Mean Corpuscular Volume 89.3 fL (81-99); Monocyte# 0.37 X10^3/uL; Monocyte% 13.1 % (0-10); NRBC Flagged by Analyzer 0 % (0-5); Neutrophil # 0.88 X10^3/uL (2.7-7.7); Neutrophil % 31.2 % (47-70); POSITIVE DIFFERENTIAL YES; Platelet Count 207 K/mm3 (150-450); RBC Distribution Width CV 14.8 % (11.6-14.6); RBC Distribution Width SD 48.9 fl (35.1-43.9); Red Blood Count 3.75 M/mm3 (4.2-5.4); White Blood Count 2.8 K/mm3 (4.4-11.0)
[2020-05-25 07:02] LABS: Differential Indicated SCAN CRITERIA MET
[2020-05-25] MEDS: Ondansetron 4 MG/2 ML Vial IV ×2 (07:11→17:53)
[2020-05-25 07:14] LABS: Differential Comment SCANNED; Platelet Estimate ADEQUATE (ADEQ)
[2020-05-25 07:15] LABS: Anion Gap 5 (5-15); BUN 12 mg/dL (7-18); BUN/Creat Ratio 17.8 RATIO (10-20); Chloride 109 mmol/L (98-107); Creatinine, Serum 0.67 mg/dL (0.55-1.02); EST Glomerular Filtration Rate 91 mL/min (>60); Est Glom Filt Rate - Afr Amer 110 mL/min (>60); Estimated Creatinine Clearance 44.41 ml/min; Glucose 81 mg/dL (74-106); Potassium 3.4 mmol/L (3.5-5.1); Sodium Level 140 mmol/L (136-145)
[2020-05-25] MEDS: APIXABAN 5 MG TABLET PO ×2 (09:31→21:08)
[2020-05-25] MEDS: Tolterodine Tartrate 4 MG CAP.SA PO (09:32)
[2020-05-25] MEDS: buPROPion (XL) 150 MG TABLET.XL PO (09:32)
[2020-05-25] MEDS: Pantoprazole Sodium 40 MG Tablet PO ×2 (09:32→21:09)
[2020-05-25] MEDS: Famotidine 20 MG Tablet PO (09:32)
[2020-05-25] MEDS: Divalproex Sodium 250 MG Tablet 500 MG PO ×2 (09:32→21:08)
[2020-05-25] MEDS: DULoxetine Hcl 60 MG Capsule PO (09:32)
[2020-05-25] MEDS: Acetaminophen 500 MG Tablet PO (09:33)
[2020-05-25] MEDS: Furosemide 40 MG Tablet 60 MG PO (09:33)
[2020-05-25] MEDS: Fluticasone 0.05% 1 SPRAY NASAL.SRY 2 SPRAY NASAL (09:46)
[2020-05-25 10:00] VITALS: BP 110/62; PULSE 86; RESP 18; TEMP 36.9; O2SAT 98
--- NOTE | 2020-05-25 10:57 | CASEMGMT ---
Patient is from [facility]. RUKHSANA faxed updates to [facility]. Susu LATHAM MSW
--- NOTE | 2020-05-25 11:28 | PCM.PROGNOTE ---
<FreddieTita ALLERGIST/IMMUNOLOGIST PHYSICIAN - Last Filed: 05/25/20 11:39> Patient Problems: Active and Suspected Problems (Last Reviewed 05/25/20 @ 00:[address] Elpidio Faust MD) Cystitis (Acute) Urinary tract infection (Acute) Subjective: Patient seen and examined. Denies fever, chills. Denies flank pain. States she has a history of recurrent UTIs and follows with Dr. Villavicencio. - Physical Exam Vitals/I&O's: Vital Signs Temp Pulse Resp BP Pulse Ox 98.5 F 74 16 102/63 96 05/25/20 05:53 05/25/20 05:53 05/25/20 05:53 05/25/20 05:53 05/25/20 05:53 Oxygen Delivery Method Room Air Weight: 291 lb 14.272 oz Body Mass Index (BMI) 48.5 Intake and Output for Last 24 Hours 05/23/20 05/24/20 05/25/20 23:59 23:59 23:59 Intake Total 740 / 740 Output Total 500 / 500 Balance 240 / 240 General: Alert, Oriented x3, Cooperative HEENT: Atraumatic, PERRLA, EOMI, Normocephalic Neck: Supple, No JVD, Negative Carotid Bruits Lungs: Clear to auscultation, Normal air movement Cardiovascular: Regular rate, No murmurs Abdomen: Bowel Sounds Present, Soft, Non Tender, Non-Distended Extremities: No clubbing, No cyanosis, No edema, Capillary Refill Less than 3 Seconds Skin: No rashes, No breakdown Musculoskeletal: No Tenderness to Palpation of Joints or Extremities Neurological: Cranial nerves II-XII grossly intact, Neuro grossly intact Psych/Mental Status: Normal Affect, Appropriate Laboratory Results 05/24/20 21:30: WBC 3.6 L, RBC 4.24, Hgb 11.8 L, Hct 38.0, MCV 89.6, MCH 27.8, MCHC 31.1 L, RDW Std Deviation 49.3 H, RDW Coeff of Chani 15.0 H, Plt Count 236, MPV 9.9, Immature Gran % (Auto) 0.800, Neut % (Auto) 39.3 L, Lymph % (Auto) 40.9, [place] % (Auto) 13.4 H, Eos % (Auto) 4.5, Baso % (Auto) 1.1 H, Absolute Neuts (auto) 1.4 L, Absolute Lymphs (auto) 1.46, Nucleated RBC % 0 05/24/20 21:30: Sodium 140, Potassium 4.2, Chloride 110 H, Carbon Dioxide 26.0, Anion Gap 4 L, BUN 12, Creatinine 0.81, Estim Creat Clear Calc 54.83, Est GFR (MDRD) Af Amer 88, Est GFR (MDRD) Non-Af 73, BUN/Creatinine Ratio 14.7, Glucose 94, Calcium 7.4 L 05/24/20 21:30: Lactic Acid 1.5 05/24/20 21:30: Urine Color Yellow, Urine Clarity Turbid, Urine pH 6.0, Ur Specific [place] 1.020, Urine Protein 100 H, Urine Glucose (UA) Normal, Urine Ketones 5 H, Urine Occult Blood 50 H, Urine Nitrite Positive H, Urine Bilirubin Negative, Urine Urobilinogen Normal, Ur Leukocyte Esterase 500 H, Urine RBC 0 SEEN, Urine WBC >100 SEEN, Ur Squamous Epith Cells 0 SEEN, Urine Bacteria 0 SEEN, Urine Mucus 0 SEEN 05/25/20 05:35: WBC 2.8 L, RBC 3.75 L, Hgb 10.1 L, Hct 33.5 L, MCV 89.3, MCH 26.9 L, MCHC 30.1 L, RDW Std Deviation 48.9 H, RDW Coeff of Chani 14.8 H, Plt Count 207, MPV 10.0, Immature Gran % (Auto) 0.700, Neut % (Auto) 31.2 L, Lymph % (Auto) 48.9 H, [place] % (Auto) 13.1 H, Eos % (Auto) 5.0, Baso % (Auto) 1.1 H, Absolute Neuts (auto) 0.9 L, Absolute Lymphs (auto) 1.38, Nucleated RBC % 0, Differential Comment SCANNED, Platelet Estimate ADEQUATE 05/25/20 05:35: Sodium 140, Potassium 3.4 L, Chloride 109 H, Carbon Dioxide 26.0, Anion Gap 5, BUN 12, Creatinine 0.67, Estim Creat Clear Calc 44.41, Est GFR (MDRD) Af Amer 110, Est GFR (MDRD) Non-Af 91, BUN/Creatinine Ratio 17.8, Glucose 81, Calcium 7.0 L Current Medications Acetaminophen (Acetaminophen 325 Mg Tablet) 650 mg PO Q6H PRN PRN PRN Reason: Pain Score 1-10/Temp > 100.7 F Acetaminophen (Acetaminophen 500 Mg Tablet) 500 mg PO DAILY [facility] Last Admin: 05/25/20 09:33 Dose: 500 mg Documented by: Hydrocodone Bitart/Acetaminophen (Hydrocodone Bitartrate/Apap 5/325 Tablet) 1 tablet PO Q12H PRN PRN PRN Reason: Pain 1-10 Last Admin: 05/25/20 06:07 Dose: 1 tablet Documented by: Apixaban (Apixaban 5 Mg Tablet) 5 mg PO BID [facility] Last Admin: 05/25/20 09:31 Dose: 5 mg Documented by: Bupropion HCl (Bupropion (Xl) 150 Mg Tablet.Xl) 150 mg PO DAILY [facility] Last Admin: 05/25/20 09:32 Dose: 150 mg Documented by: Cholecalciferol (Cholecalciferol (Vit D3) 1,000 Unit (25mcg)) 1,000 unit PO DAILY [facility] Last Admin: 05/25/20 09:32 Dose: 1,000 unit Documented by: Divalproex Sodium (Divalproex Sodium 250 Mg Tablet) 500 mg PO BID [facility] Last Admin: 05/25/20 09:32 Dose: 500 mg Documented by: Duloxetine HCl (Duloxetine Hcl 60 Mg Capsule) 60 mg PO DAILY [facility] Last Admin: 05/25/20 09:32 Dose: 60 mg Documented by: Famotidine (Famotidine 20 Mg Tablet) 20 mg PO DAILY [facility] Last Admin: 05/25/20 09:32 Dose: 20 mg Documented by: Fluticasone Propionate (Fluticasone 0.05% 1 [place] Nasal.Sry) 2 spray NASAL DAILY [facility] Last Admin: 05/25/20 09:46 Dose: 1 bag Documented by: Furosemide (Furosemide 40 Mg Tablet) 60 mg PO DAILY [facility] Last Admin: 05/25/20 09:33 Dose: 60 mg Documented by: Gabapentin (Gabapentin 300 Mg Capsule) 300 mg PO TID [facility] Last Admin: 05/25/20 05:35 Dose: 300 mg Documented by: Guaifenesin (Guaifenesin Dm 10 Ml Udc) 10 ml PO Q4H PRN PRN Reason: COUGH Sodium Chloride () 250 mls @ 15 mls/hr IV .[id number] PRN PRN Reason: Saline Flush Last Admin: 05/24/20 23:20 Dose: 15 mls/hr Documented by: Sodium Chloride () 250 mls @ 15 mls/hr IV .[id number] PRN PRN Reason: Additional IVPB Infusion Aztreonam 2 gm/ Sodium (Chloride) 100 mls @ 150 mls/hr IV Q8 [facility] Last Infusion: 05/25/20 07:02 Dose: Infused Documented by: Linezolid (Zyvox 600mg) 600 mg in 300 mls @ 200 mls/hr IV Q12 [facility] Last Admin: 05/25/20 09:47 Dose: 200 mls/hr Documented by: Lactobacillus Acidophilus (Lactobacillus Acidophilus) 1 tablet PO DAILY [facility] Last Admin: 05/25/20 09:32 Dose: 1 tablet Documented by: Magnesium Hydroxide (Magnesium Hydroxide 30 Ml Udc) 30 ml PO DAILY PRN PRN PRN Reason: CONSTIPATION Melatonin (Melatonin 3 Mg Tablet) 3 mg PO QHS PRN PRN PRN Reason: INSOMNIA Melatonin (Melatonin 3 Mg Tablet) 3 mg PO QHS [facility] Mirabegron (Mirabegron 50 Mg Tab.Er.24h) 50 mg PO QHS [facility] Nystatin (Nystatin 500,000 Unit/5 Ml Udc) 500,000 unit PO 4X/DAY PRN PRN Reason: thrush Ondansetron HCl (Ondansetron 4 Mg/2 Ml Vial) 4 mg IV Q8H PRN PRN PRN Reason: NAUSEA/VOMITING Last Admin: 05/25/20 07:11 Dose: 4 mg Documented by: Pantoprazole Sodium (Pantoprazole Sodium 40 Mg Tablet) 40 mg PO BID [facility] Last Admin: 05/25/20 09:32 Dose: 40 mg Documented by: Polyethylene Glycol (Polyethylene Glycol 3350 17 Gm Packet) 17 gm PO DAILY PRN PRN PRN Reason: Constipation Pravastatin Sodium (Pravastatin 40 Mg Tablet) 40 mg PO QHS [facility] Primidone (Primidone 50 Mg Tablet) 100 mg PO QHS [facility] Sodium Chloride (0.9% Saline Lock 10 Ml Syringe) 10 - 40 ml IV UD PRN PRN Reason: SALINE FLUSH Tamsulosin HCl (Tamsulosin Hcl 0.4 Mg Capsule) 0.4 mg PO QHS [facility] Tolterodine Tartrate (Tolterodine Tartrate 4 Mg Cap.Sa) 4 mg PO DAILY [facility] Last Admin: 05/25/20 09:32 Dose: 4 mg Documented by: Medical Necessity - Tobacco Use Smoking Status: Never smoker Assessment/Plan All Active Problems (Last Reviewed 05/25/20 @ 00:[address] Elpidio Faust MD) Cystitis (Acute) Urinary tract infection (Acute) Abdominal pain (Resolved) 1. Acute UTI, history of recurrent complicated UTIs-previous cultures with multiple organisms. Continue aztreonam and linezolid based on prior cultures. Repeat culture pending. PT/OT. Continue home my rubber ground, Flomax, Vesicare. 2. Type 2 diabetes mellitus with diabetic peripheral neuropathy- diet controlled. 3. 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 4. Anemia of chronic disease/iron deficiency anemia 5. Depression/anxiety-continue bupropion, duloxetine. 6. Hyperlipidemia-continue statin. 7. Morbid obesity-encouraged diet and lifestyle modifications. DVT prophylaxis-Eliquis This patient was seen by MEGHANA Carbajal under the supervision of Dr. Quintero. <Rosa Quintero - Last Filed: 05/25/20 15:36> - Physical Exam Vitals/I&O's: Vital Signs Temp Pulse Resp BP Pulse Ox 98.5 F 86 18 110/62 98 05/25/20 10:00 05/25/20 10:00 05/25/20 10:00 05/25/20 10:00 05/25/20 10:00 Oxygen Delivery Method Room Air Weight: 291 lb 14.272 oz Body Mass Index (BMI) 48.5 Intake and Output for Last 24 Hours 05/23/20 05/24/20 05/25/20 23:59 23:59 23:59 Intake Total 980 / 980 Output Total 500 / 500 Balance 480 / 480 Microbiology Past 72 Hours 05/24/20 21:30 Urine, Clean Catch Urine Culture - Preliminary Gram negative jan Laboratory Results 05/24/20 21:30: WBC 3.6 L, RBC 4.24, Hgb 11.8 L, Hct 38.0, MCV 89.6, MCH 27.8, MCHC 31.1 L, RDW Std Deviation 49.3 H, RDW Coeff of Chani 15.0 H, Plt Count 236, MPV 9.9, Immature Gran % (Auto) 0.800, Neut % (Auto) 39.3 L, Lymph % (Auto) 40.9, [place] % (Auto) 13.4 H, Eos % (Auto) 4.5, Baso % (Auto) 1.1 H, Absolute Neuts (auto) 1.4 L, Absolute Lymphs (auto) 1.46, Nucleated RBC % 0 05/24/20 21:30: Sodium 140, Potassium 4.2, Chloride 110 H, Carbon Dioxide 26.0, Anion Gap 4 L, BUN 12, Creatinine 0.81, Estim Creat Clear Calc 54.83, Est GFR (MDRD) Af Amer 88, Est GFR (MDRD) Non-Af 73, BUN/Creatinine Ratio 14.7, Glucose 94, Calcium 7.4 L 05/24/20 21:30: Lactic Acid 1.5 05/24/20 21:30: Urine Color Yellow, Urine Clarity Turbid, Urine pH 6.0, Ur Specific [place] 1.020, Urine Protein 100 H, Urine Glucose (UA) Normal, Urine Ketones 5 H, Urine Occult Blood 50 H, Urine Nitrite Positive H, Urine Bilirubin Negative, Urine Urobilinogen Normal, Ur Leukocyte Esterase 500 H, Urine RBC 0 SEEN, Urine WBC >100 SEEN, Ur Squamous Epith Cells 0 SEEN, Urine Bacteria 0 SEEN, Urine Mucus 0 SEEN 05/25/20 05:35: WBC 2.8 L, RBC 3.75 L, Hgb 10.1 L, Hct 33.5 L, MCV 89.3, MCH 26.9 L, MCHC 30.1 L, RDW Std Deviation 48.9 H, RDW Coeff of Chani 14.8 H, Plt Count 207, MPV 10.0, Immature Gran % (Auto) 0.700, Neut % (Auto) 31.2 L, Lymph % (Auto) 48.9 H, [place] % (Auto) 13.1 H, Eos % (Auto) 5.0, Baso % (Auto) 1.1 H, Absolute Neuts (auto) 0.9 L, Absolute Lymphs (auto) 1.38, Nucleated RBC % 0, Differential Comment SCANNED, Platelet Estimate ADEQUATE 05/25/20 05:35: Sodium 140, Potassium 3.4 L, Chloride 109 H, Carbon Dioxide 26.0, Anion Gap 5, BUN 12, Creatinine 0.67, Estim Creat Clear Calc 44.41, Est GFR (MDRD) Af Amer 110, Est GFR (MDRD) Non-Af 91, BUN/Creatinine Ratio 17.8, Glucose 81, Calcium 7.0 L 05/25/20 10:59: POC Glucose 107 Current Medications Acetaminophen (Acetaminophen 325 Mg Tablet) 650 mg PO Q6H PRN PRN PRN Reason: Pain Score 1-10/Temp > 100.7 F Acetaminophen (Acetaminophen 500 Mg Tablet) 500 mg PO DAILY [facility] Last Admin: 05/25/20 09:33 Dose: 500 mg Documented by: Hydrocodone Bitart/Acetaminophen (Hydrocodone Bitartrate/Apap 5/325 Tablet) 1 tablet PO Q12H PRN PRN PRN Reason: Pain 1-10 Last Admin: 05/25/20 06:07 Dose: 1 tablet Documented by: Apixaban (Apixaban 5 Mg Tablet) 5 mg PO BID [facility] Last Admin: 05/25/20 09:31 Dose: 5 mg Documented by: Bupropion HCl (Bupropion (Xl) 150 Mg Tablet.Xl) 150 mg PO DAILY [facility] Last Admin: 05/25/20 09:32 Dose: 150 mg Documented by: Cholecalciferol (Cholecalciferol (Vit D3) 1,000 Unit (25mcg)) 1,000 unit PO DAILY [facility] Last Admin: 05/25/20 09:32 Dose: 1,000 unit Documented by: Divalproex Sodium (Divalproex Sodium 250 Mg Tablet) 500 mg PO BID [facility] Last Admin: 05/25/20 09:32 Dose: 500 mg Documented by: Duloxetine HCl (Duloxetine Hcl 60 Mg Capsule) 60 mg PO DAILY [facility] Last Admin: 05/25/20 09:32 Dose: 60 mg Documented by: Famotidine (Famotidine 20 Mg Tablet) 20 mg PO DAILY [facility] Last Admin: 05/25/20 09:32 Dose: 20 mg Documented by: Fluticasone Propionate (Fluticasone 0.05% 1 [place] Nasal.Sry) 2 spray NASAL DAILY [facility] Last Admin: 05/25/20 09:46 Dose: 1 bag Documented by: Furosemide (Furosemide 40 Mg Tablet) 60 mg PO DAILY [facility] Last Admin: 05/25/20 09:33 Dose: 60 mg Documented by: Gabapentin (Gabapentin 300 Mg Capsule) 300 mg PO TID [facility] Last Admin: 05/25/20 05:35 Dose: 300 mg Documented by: Guaifenesin (Guaifenesin Dm 10 Ml Udc) 10 ml PO Q4H PRN PRN Reason: COUGH Sodium Chloride () 250 mls @ 15 mls/hr IV .[id number] PRN PRN Reason: Saline Flush Last Admin: 05/24/20 23:20 Dose: 15 mls/hr Documented by: Sodium Chloride () 250 mls @ 15 mls/hr IV .[id number] PRN PRN Reason: Additional IVPB Infusion Aztreonam 2 gm/ Sodium (Chloride) 100 mls @ 150 mls/hr IV Q8 [facility] Last Infusion: 05/25/20 07:02 Dose: Infused Documented by: Linezolid (Zyvox 600mg) 600 mg in 300 mls @ 200 mls/hr IV Q12 [facility] Last Admin: 05/25/20 09:47 Dose: 200 mls/hr Documented by: Lactobacillus Acidophilus (Lactobacillus Acidophilus) 1 tablet PO DAILY [facility] Last Admin: 05/25/20 09:32 Dose: 1 tablet Documented by: Magnesium Hydroxide (Magnesium Hydroxide 30 Ml Udc) 30 ml PO DAILY PRN PRN PRN Reason: CONSTIPATION Melatonin (Melatonin 3 Mg Tablet) 3 mg PO QHS PRN PRN PRN Reason: INSOMNIA Melatonin (Melatonin 3 Mg Tablet) 3 mg PO QHS [facility] Mirabegron (Mirabegron 50 Mg Tab.Er.24h) 50 mg PO QHS [facility] Nystatin (Nystatin 500,000 Unit/5 Ml Udc) 500,000 unit PO 4X/DAY PRN PRN Reason: thrush Ondansetron HCl (Ondansetron 4 Mg/2 Ml Vial) 4 mg IV Q8H PRN PRN PRN Reason: NAUSEA/VOMITING Last Admin: 05/25/20 07:11 Dose: 4 mg Documented by: Pantoprazole Sodium (Pantoprazole Sodium 40 Mg Tablet) 40 mg PO BID [facility] Last Admin: 05/25/20 09:32 Dose: 40 mg Documented by: Polyethylene Glycol (Polyethylene Glycol 3350 17 Gm Packet) 17 gm PO DAILY PRN PRN PRN Reason: Constipation Pravastatin Sodium (Pravastatin 40 Mg Tablet) 40 mg PO QHS [facility] Primidone (Primidone 50 Mg Tablet) 100 mg PO QHS [facility] Sodium Chloride (0.9% Saline Lock 10 Ml Syringe) 10 - 40 ml IV UD PRN PRN Reason: SALINE FLUSH Tamsulosin HCl (Tamsulosin Hcl 0.4 Mg Capsule) 0.4 mg PO QHS [facility] Tolterodine Tartrate (Tolterodine Tartrate 4 Mg Cap.Sa) 4 mg PO DAILY [facility] Last Admin: 05/25/20 09:32 Dose: 4 mg Documented by: Assessment/Plan Patient seen by MEGHANA Carbajal under my supervision. Patient seen and examined. She was admitted with a complaint of lower abdominal pain and frequency as well as burning with urination. She has been managed for acute UTI and she is on aztreonam and linezolid based on previous cultures. Patient still says she has some mild lower abdominal pain today but denied any fever or chills. She denied any dysuria, any nausea vomiting. Review of symptoms otherwise negative. Patient admits to a history of recurrent UTIs. She has remained hemodynamically stable. Potassium was 3.4 today. O/E: Vital Signs Temp Pulse Resp BP Pulse Ox 98.5 F 86 18 110/62 98 05/25/20 10:00 05/25/20 10:00 05/25/20 10:00 05/25/20 10:05/25/20 10:00 General: Alert, Oriented x3, Cooperative, morbidly obese HEENT: Atraumatic, PERRLA, EOMI, Normocephalic Neck: Supple, No JVD, Negative Carotid Bruits Lungs: Clear to auscultation, Normal air movement Cardiovascular: Regular rate, No murmurs Abdomen: Bowel Sounds Present, Soft, Non Tender, Non-Distended Extremities: No clubbing, No cyanosis, No edema, Capillary Refill Less than 3 Seconds Skin: No rashes, No breakdown Musculoskeletal: No Tenderness to Palpation of Joints or Extremities Neurological: Cranial nerves II-XII grossly intact, Neuro grossly intact Psych/Mental Status: Normal Affect, Appropriate Plan is to continue linezolid and aztreonam. Urine cultures growing possibly 2 types of gram-negative rods. Speciation is pending. Previous urine cultures grew Pseudomonas and vancomycin-resistant E fecacium. Pseudomonas in previous cultures sensitive to levofloxacin and VRE sensitive to linezolid. We will therefore stop aztreonam and start patient on levofloxacin. Encourage adequate oral intake. Rest as per MEGHANA Carbajal's notes which I have reviewed and endorsed. Inpatient E&M: 39816 Subs Hosp L2
[2020-05-25 11:50] LABS: Bedside Glucose 107 mg/dL (70-110)
--- NOTE | 2020-05-25 15:53 | CHAPLAIN ---
Type of Pastoral Visit _x__ Initial Visit ___ Follow-up Visit ___ On-call Visit ___ General Patient Visit ___ Spiritual Assessment ___ Family Conference ___ Bereavement ___ Rapid Response ___ Code Blue ___ Other (describe below) Pastoral Care Referral From _x__ Patient ___ Family ___ Nurse ___ Physician ___ Risk Professional ___ Sterile Processing Technologist ___ Other (describe below) Sacrament/Intervention _x__ Active listening ___ Anointing ___ Gnosticism ___ Bereavement ___ Communion ___ Fabiola exploration ___ ___ Life review _x__ Prayer ___ Reconciliation ___ Sacrament of Sick _x__ Supportive presence ___ Wedding ___ Other (describe below) Pastoral Comments
[2020-05-25] MEDS: levoFLOXacin IV 750 MG/150 ML BAG 100 MG IV (17:00)
[2020-05-25 20:00] VITALS: BP 110/58; PULSE 80; RESP 20; TEMP 36.9; O2SAT 96
[2020-05-25] MEDS: Tamsulosin HCl 0.4 MG Capsule PO (21:08)
[2020-05-25] MEDS: Mirabegron 50 MG TAB.ER.24H PO (21:08)
[2020-05-25] MEDS: Primidone 50 MG Tablet 100 MG PO (21:08)
[2020-05-25] MEDS: MELATONIN 3 MG TABLET PO (21:09)
[2020-05-25] MEDS: Pravastatin 40 MG Tablet PO (21:09)
[2020-05-25 22:00] VITALS: PULSE 77; RESP 16; O2SAT 94
[2020-05-25] MEDS: guaiFENesin Dm 10 ML UDC PO (23:27)
[2020-05-26 02:00] VITALS: BP 101/49; PULSE 82; RESP 16; TEMP 36.8; O2SAT 96
[2020-05-26 05:44] LABS: Hematocrit 35.2 % (37-47); Hemoglobin 10.5 g/dL (12.0-15.0); Mean Corp Hgb Conc 29.8 g/dL (32-36); Mean Corpuscular Hgb 27.3 pg (27.0-32.0); Mean Corpuscular Volume 91.4 fL (81-99); Platelet Count 182 K/mm3 (150-450); RBC Distribution Width CV 14.9 % (11.6-14.6); RBC Distribution Width SD 50.4 fl (35.1-43.9); Red Blood Count 3.85 M/mm3 (4.2-5.4); White Blood Count 3.4 K/mm3 (4.4-11.0)
[2020-05-26 06:08] LABS: Anion Gap 3 (5-15); BUN 15 mg/dL (7-18); BUN/Creat Ratio 20.4 RATIO (10-20); Calcium,Total 7.4 mg/dL (8.5-10.1); Chloride 107 mmol/L (98-107); Creatinine, Serum 0.73 mg/dL (0.55-1.02); EST Glomerular Filtration Rate 82 mL/min (>60); Est Glom Filt Rate - Afr Amer 100 mL/min (>60); Estimated Creatinine Clearance 44.41 ml/min; Glucose 83 mg/dL (74-106); Potassium 4.5 mmol/L (3.5-5.1); Sodium Level 139 mmol/L (136-145)
[2020-05-26] MEDS: Gabapentin 300 MG Capsule PO ×2 (06:19→15:27)
[2020-05-26 08:13] VITALS: BP 113/69; PULSE 71; RESP 16; TEMP 36.6; O2SAT 94
[2020-05-26] MEDS: Acetaminophen 500 MG Tablet PO (08:49)
[2020-05-26] MEDS: Furosemide 40 MG Tablet 60 MG PO (08:49)
[2020-05-26] MEDS: buPROPion (XL) 150 MG TABLET.XL PO (08:49)
[2020-05-26] MEDS: Tolterodine Tartrate 4 MG CAP.SA PO (08:49)
[2020-05-26] MEDS: Famotidine 20 MG Tablet PO (08:49)
[2020-05-26] MEDS: Divalproex Sodium 250 MG Tablet 500 MG PO (08:49)
[2020-05-26] MEDS: Pantoprazole Sodium 40 MG Tablet PO (08:49)
[2020-05-26] MEDS: guaiFENesin Dm 10 ML UDC PO ×2 (08:50→15:28)
[2020-05-26] MEDS: Fluticasone 0.05% 1 SPRAY NASAL.SRY 2 SPRAY NASAL (08:50)
[2020-05-26] MEDS: DULoxetine Hcl 60 MG Capsule PO (08:50)
[2020-05-26] MEDS: APIXABAN 5 MG TABLET PO (08:50)
--- NOTE | 2020-05-26 09:03 | CASEMGMT ---
RUKHSANA faxed PT eval to [facility]. RN then told SW that patient said she was exposed to COVID at [place] and they tested her, but she does not know the results. She now has a cough. RUKHSANA called Wallace at [facility] and left a message on his office phone and his cell phone. RUKHSANA also called the [facility] nurses desk and no one answered so a message was left. RUKHSANA will continue to try and reach someone to obtain test results. Susu LATHAM FITTING ROOM SUPERVISOR
--- NOTE | 2020-05-26 09:53 | CASEMGMT ---
RUKHSANA received a voice mail from Wallace at [facility]. He said they have not received patient's COVID test results yet. She was tested Friday night and it is 3-5 day turn around. RUKHSANA notified RN who will notify physician. Susu LATHAM MSW
--- NOTE | 2020-05-26 13:28 | PN_ITS ---
<[employer] - Last Filed: 05/26/20 13:40> Patient Problems: Active and Suspected Problems (Last Reviewed 05/25/20 @ 00:[address] Elpidio carranza MD) Cystitis (Acute) Urinary tract infection (Acute) Subjective: Patient seen and examined. Reports cough that began yesterday. States she was exposed to healthcare worker at assisted living who was positive for Covid. Denies fever, chills. Denies shortness of breath. Denies change in taste/smell. - Physical Exam Vitals/I&O's: Vital Signs Temp Pulse Resp BP Pulse Ox 97.9 F 71 16 113/69 94 05/26/20 08:13 05/26/20 08:13 05/26/20 08:13 05/26/20 08:13 05/26/20 08:13 Oxygen Delivery Method Room Air Weight: 291 lb 14.272 oz Body Mass Index (BMI) 48.5 Intake and Output for Last 24 Hours 05/24/20 05/25/20 05/26/20 23:59 23:59 23:59 Intake Total 2019 540 / 540 Output Total 500 / 500 500 / 500 Balance 1520 / 1520 40 / 40 General: Alert, Oriented x3, Cooperative HEENT: Atraumatic, PERRLA, EOMI, Normocephalic Neck: Supple, No JVD, Negative Carotid Bruits Lungs: Clear to auscultation, Normal air movement Cardiovascular: Regular rate, No murmurs Abdomen: Bowel Sounds Present, Soft, Non Tender, Non-Distended Extremities: No clubbing, No cyanosis, No edema, Capillary Refill Less than 3 Seconds Skin: No rashes, No breakdown Musculoskeletal: No Tenderness to Palpation of Joints or Extremities Neurological: Cranial nerves II-XII grossly intact, Neuro grossly intact Psych/Mental Status: Normal Affect, Appropriate Microbiology Past 72 Hours 05/26/20 12:00 Mucosa - Nasopharyngeal SARS-CoV-2 Antigen (Rapid) - Final 05/24/20 21:30 Urine, Clean Catch Urine Culture - Preliminary Gram negative jan Laboratory Results 05/26/20 05:30: WBC 3.4 L, RBC 3.85 L, Hgb 10.5 L, Hct 35.2 L, MCV 91.4, MCH 27.3, MCHC 29.8 L, RDW Std Deviation 50.4 H, RDW Coeff of Chani 14.9 H, Plt Count 182, MPV 9.0 05/26/20 05:30: Sodium 139, Potassium 4.5, Chloride 107, Carbon Dioxide 29.0, Anion Gap 3 L, BUN 15, Creatinine 0.73, Estim Creat Clear Calc 44.41, Est GFR (MDRD) Af Amer 100, Est GFR (MDRD) Non-Af 82, BUN/Creatinine Ratio 20.4 H, Glucose 83, Calcium 7.4 L Current Medications Acetaminophen (Acetaminophen 325 Mg Tablet) 650 mg PO Q6H PRN PRN PRN Reason: Pain Score 1-10/Temp > 100.7 F Acetaminophen (Acetaminophen 500 Mg Tablet) 500 mg PO DAILY [facility] Last Admin: 05/26/20 08:49 Dose: 500 mg Documented by: Hydrocodone Bitart/Acetaminophen (Hydrocodone Bitartrate/Apap 5/325 Tablet) 1 tablet PO Q12H PRN PRN PRN Reason: Pain 1-10 Last Admin: 05/25/20 21:07 Dose: 1 tablet Documented by: Apixaban (Apixaban 5 Mg Tablet) 5 mg PO BID [facility] Last Admin: 05/26/20 08:50 Dose: 5 mg Documented by: Bupropion HCl (Bupropion (Xl) 150 Mg Tablet.Xl) 150 mg PO DAILY [facility] Last Admin: 05/26/20 08:49 Dose: 150 mg Documented by: Cholecalciferol (Cholecalciferol (Vit D3) 1,000 Unit (25mcg)) 1,000 unit PO DAILY [facility] Last Admin: 05/26/20 08:49 Dose: 1,000 unit Documented by: Divalproex Sodium (Divalproex Sodium 250 Mg Tablet) 500 mg PO BID [facility] Last Admin: 05/26/20 08:49 Dose: 500 mg Documented by: Duloxetine HCl (Duloxetine Hcl 60 Mg Capsule) 60 mg PO DAILY [facility] Last Admin: 05/26/20 08:50 Dose: 60 mg Documented by: Famotidine (Famotidine 20 Mg Tablet) 20 mg PO DAILY [facility] Last Admin: 05/26/20 08:49 Dose: 20 mg Documented by: Fluticasone Propionate (Fluticasone 0.05% 1 [place] Nasal.Sry) 2 spray NASAL DAILY [facility] Last Admin: 05/26/20 08:50 Dose: 2 sprays Documented by: Furosemide (Furosemide 40 Mg Tablet) 60 mg PO DAILY [facility] Last Admin: 05/26/20 08:49 Dose: 60 mg Documented by: Gabapentin (Gabapentin 300 Mg Capsule) 300 mg PO TID [facility] Last Admin: 05/26/20 06:19 Dose: 300 mg Documented by: Guaifenesin (Guaifenesin Dm 10 Ml Udc) 10 ml PO Q4H PRN PRN Reason: COUGH Last Admin: 05/26/20 08:50 Dose: 10 ml Documented by: Sodium Chloride () 250 mls @ 15 mls/hr IV .[id number] PRN PRN Reason: Saline Flush Last Infusion: 05/25/20 16:01 Dose: Infused Documented by: Sodium Chloride () 250 mls @ 15 mls/hr IV .[id number] PRN PRN Reason: Additional IVPB Infusion Linezolid (Zyvox 600mg) 600 mg in 300 mls @ 200 mls/hr IV Q12 [facility] Last Infusion: 05/26/20 01:19 Dose: Infused Documented by: Levofloxacin (Levaquin Iv) 750 mg in 150 mls @ 100 mls/hr IV DAILY [facility] Lactobacillus Acidophilus (Lactobacillus Acidophilus) 1 tablet PO DAILY [facility] Last Admin: 05/26/20 08:49 Dose: 1 tablet Documented by: Magnesium Hydroxide (Magnesium Hydroxide 30 Ml Udc) 30 ml PO DAILY PRN PRN PRN Reason: CONSTIPATION Melatonin (Melatonin 3 Mg Tablet) 3 mg PO QHS PRN PRN PRN Reason: INSOMNIA Melatonin (Melatonin 3 Mg Tablet) 3 mg PO QHS [facility] Last Admin: 05/25/20 21:09 Dose: 3 mg Documented by: Mirabegron (Mirabegron 50 Mg Tab.Er.24h) 50 mg PO QHS [facility] Last Admin: 05/25/20 21:08 Dose: 50 mg Documented by: Nystatin (Nystatin 500,000 Unit/5 Ml Udc) 500,000 unit PO 4X/DAY PRN PRN Reason: thrush Ondansetron HCl (Ondansetron 4 Mg/2 Ml Vial) 4 mg IV Q8H PRN PRN PRN Reason: NAUSEA/VOMITING Last Admin: 05/25/20 17:53 Dose: 4 mg Documented by: Pantoprazole Sodium (Pantoprazole Sodium 40 Mg Tablet) 40 mg PO BID [facility] Last Admin: 05/26/20 08:49 Dose: 40 mg Documented by: Polyethylene Glycol (Polyethylene Glycol 3350 17 Gm Packet) 17 gm PO DAILY PRN PRN PRN Reason: Constipation Pravastatin Sodium (Pravastatin 40 Mg Tablet) 40 mg PO QHS [facility] Last Admin: 05/25/20 21:09 Dose: 40 mg Documented by: Primidone (Primidone 50 Mg Tablet) 100 mg PO QHS [facility] Last Admin: 05/25/20 21:08 Dose: 100 mg Documented by: Sodium Chloride (0.9% Saline Lock 10 Ml Syringe) 10 - 40 ml IV UD PRN PRN Reason: SALINE FLUSH Tamsulosin HCl (Tamsulosin Hcl 0.4 Mg Capsule) 0.4 mg PO QHS [facility] Last Admin: 05/25/20 21:08 Dose: 0.4 mg Documented by: Tolterodine Tartrate (Tolterodine Tartrate 4 Mg Cap.Sa) 4 mg PO DAILY [facility] Last Admin: 05/26/20 08:49 Dose: 4 mg Documented by: Medical Necessity - Tobacco Use Smoking Status: Never smoker Assessment/Plan All Active Problems (Last Reviewed 05/25/20 @ 00:[address] Elpidio Faust MD) Cystitis (Acute) Urinary tract infection (Acute) Abdominal pain (Resolved) 1. Acute UTI, history of recurrent complicated UTIs-previous cultures with multiple organisms. Continue Levaquin and linezolid based on prior cultures. Repeat culture pending. PT/OT. Continue home mirabegron, Flomax, Vesicare. 2. Type 2 diabetes mellitus with diabetic peripheral neuropathy- diet controlled. 3. 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 4. Anemia of chronic disease/iron deficiency anemia- stable. 5. Depression/anxiety-continue bupropion, duloxetine. 6. Hyperlipidemia-continue statin. 7. Morbid obesity-encouraged diet and lifestyle modifications. 8. Recent Covid exposure-intermittent cough. Rapid antigen negative. DVT prophylaxis-Eliquis This patient was seen by MEGHANA Carbajal under the supervision of Dr. Quintero. <Rosa Quintero - Last Filed: 05/26/20 14:24> - Physical Exam Vitals/I&O's: Vital Signs Temp Pulse Resp BP Pulse Ox 97.9 F 71 16 113/69 94 05/26/20 08:13 05/26/20 08:13 05/26/20 08:13 05/26/20 08:13 05/26/20 08:13 Oxygen Delivery Method Room Air Weight: 291 lb 14.272 oz Body Mass Index (BMI) 48.5 Intake and Output for Last 24 Hours 05/24/20 05/25/20 05/26/20 23:59 23:59 23:59 Intake Total 2019 540 / 540 Output Total 500 / 500 500 / 500 Balance 1520 / 1520 40 / 40 Microbiology Past 72 Hours 05/26/20 12:00 Mucosa - Nasopharyngeal SARS-CoV-2 Antigen (Rapid) - Final 05/24/20 21:30 Urine, Clean Catch Urine Culture - Preliminary Gram negative jan Laboratory Results 05/26/20 05:30: WBC 3.4 L, RBC 3.85 L, Hgb 10.5 L, Hct 35.2 L, MCV 91.4, MCH 27.3, MCHC 29.8 L, RDW Std Deviation 50.4 H, RDW Coeff of Chani 14.9 H, Plt Count 182, MPV 9.0 05/26/20 05:30: Sodium 139, Potassium 4.5, Chloride 107, Carbon Dioxide 29.0, Anion Gap 3 L, BUN 15, Creatinine 0.73, Estim Creat Clear Calc 44.41, Est GFR (MDRD) Af Amer 100, Est GFR (MDRD) Non-Af 82, BUN/Creatinine Ratio 20.4 H, Glucose 83, Calcium 7.4 L Current Medications Acetaminophen (Acetaminophen 325 Mg Tablet) 650 mg PO Q6H PRN PRN PRN Reason: Pain Score 1-10/Temp > 100.7 F Acetaminophen (Acetaminophen 500 Mg Tablet) 500 mg PO DAILY [facility] Last Admin: 05/26/20 08:49 Dose: 500 mg Documented by: Hydrocodone Bitart/Acetaminophen (Hydrocodone Bitartrate/Apap 5/325 Tablet) 1 tablet PO Q12H PRN PRN PRN Reason: Pain 1-10 Last Admin: 05/25/20 21:07 Dose: 1 tablet Documented by: Apixaban (Apixaban 5 Mg Tablet) 5 mg PO BID [facility] Last Admin: 05/26/20 08:50 Dose: 5 mg Documented by: Bupropion HCl (Bupropion (Xl) 150 Mg Tablet.Xl) 150 mg PO DAILY [facility] Last Admin: 05/26/20 08:49 Dose: 150 mg Documented by: Cholecalciferol (Cholecalciferol (Vit D3) 1,000 Unit (25mcg)) 1,000 unit PO DAILY [facility] Last Admin: 05/26/20 08:49 Dose: 1,000 unit Documented by: Divalproex Sodium (Divalproex Sodium 250 Mg Tablet) 500 mg PO BID [facility] Last Admin: 05/26/20 08:49 Dose: 500 mg Documented by: Duloxetine HCl (Duloxetine Hcl 60 Mg Capsule) 60 mg PO DAILY [facility] Last Admin: 05/26/20 08:50 Dose: 60 mg Documented by: Famotidine (Famotidine 20 Mg Tablet) 20 mg PO DAILY [facility] Last Admin: 05/26/20 08:49 Dose: 20 mg Documented by: Fluticasone Propionate (Fluticasone 0.05% 1 [place] Nasal.Sry) 2 spray NASAL DAILY [facility] Last Admin: 05/26/20 08:50 Dose: 2 sprays Documented by: Furosemide (Furosemide 40 Mg Tablet) 60 mg PO DAILY [facility] Last Admin: 05/26/20 08:49 Dose: 60 mg Documented by: Gabapentin (Gabapentin 300 Mg Capsule) 300 mg PO TID [facility] Last Admin: 05/26/20 06:19 Dose: 300 mg Documented by: Guaifenesin (Guaifenesin Dm 10 Ml Udc) 10 ml PO Q4H PRN PRN Reason: COUGH Last Admin: 05/26/20 08:50 Dose: 10 ml Documented by: Sodium Chloride () 250 mls @ 15 mls/hr IV .[id number] PRN PRN Reason: Saline Flush Last Infusion: 05/25/20 16:01 Dose: Infused Documented by: Sodium Chloride () 250 mls @ 15 mls/hr IV .[id number] PRN PRN Reason: Additional IVPB Infusion Linezolid (Zyvox 600mg) 600 mg in 300 mls @ 200 mls/hr IV Q12 [facility] Last Infusion: 05/26/20 01:19 Dose: Infused Documented by: Levofloxacin (Levaquin Iv) 750 mg in 150 mls @ 100 mls/hr IV DAILY [facility] Lactobacillus Acidophilus (Lactobacillus Acidophilus) 1 tablet PO DAILY [facility] Last Admin: 05/26/20 08:49 Dose: 1 tablet Documented by: Magnesium Hydroxide (Magnesium Hydroxide 30 Ml Udc) 30 ml PO DAILY PRN PRN PRN Reason: CONSTIPATION Melatonin (Melatonin 3 Mg Tablet) 3 mg PO QHS PRN PRN PRN Reason: INSOMNIA Melatonin (Melatonin 3 Mg Tablet) 3 mg PO QHS [facility] Last Admin: 05/25/20 21:09 Dose: 3 mg Documented by: Mirabegron (Mirabegron 50 Mg Tab.Er.24h) 50 mg PO QHS [facility] Last Admin: 05/25/20 21:08 Dose: 50 mg Documented by: Nystatin (Nystatin 500,000 Unit/5 Ml Udc) 500,000 unit PO 4X/DAY PRN PRN Reason: thrush Ondansetron HCl (Ondansetron 4 Mg/2 Ml Vial) 4 mg IV Q8H PRN PRN PRN Reason: NAUSEA/VOMITING Last Admin: 05/25/20 17:53 Dose: 4 mg Documented by: Pantoprazole Sodium (Pantoprazole Sodium 40 Mg Tablet) 40 mg PO BID [facility] Last Admin: 05/26/20 08:49 Dose: 40 mg Documented by: Polyethylene Glycol (Polyethylene Glycol 3350 17 Gm Packet) 17 gm PO DAILY PRN PRN PRN Reason: Constipation Pravastatin Sodium (Pravastatin 40 Mg Tablet) 40 mg PO QHS [facility] Last Admin: 05/25/20 21:09 Dose: 40 mg Documented by: Primidone (Primidone 50 Mg Tablet) 100 mg PO QHS [facility] Last Admin: 05/25/20 21:08 Dose: 100 mg Documented by: Sodium Chloride (0.9% Saline Lock 10 Ml Syringe) 10 - 40 ml IV UD PRN PRN Reason: SALINE FLUSH Tamsulosin HCl (Tamsulosin Hcl 0.4 Mg Capsule) 0.4 mg PO QHS [facility] Last Admin: 05/25/20 21:08 Dose: 0.4 mg Documented by: Tolterodine Tartrate (Tolterodine Tartrate 4 Mg Cap.Sa) 4 mg PO DAILY [facility] Last Admin: 05/26/20 08:49 Dose: 4 mg Documented by: Assessment/Plan Patient seen by MEGHANA Carbajal under my supervision. Patient seen and examined. She complains of a cough today. States that 2 of her caregivers in the assisted living tested positive for Covid. Patient had been tested for Covid but says she did not have the results yet. She denied any loss of taste or smell and had no other complaints. Review of symptoms otherwise negative. Dysuria is improving. O/E: Vital Signs Temp Pulse Resp BP Pulse Ox 97.9 F 71 16 113/69 94 05/26/20 08:13 05/26/20 08:13 05/26/20 08:13 05/26/20 08:13 05/26/20 08:13 General: Alert, Oriented x3, Cooperative, morbidly obese HEENT: Atraumatic, PERRLA, EOMI, Normocephalic Neck: Supple, No JVD, Negative Carotid Bruits Lungs: Clear to auscultation, Normal air movement Cardiovascular: Regular rate, No murmurs Abdomen: Bowel Sounds Present, Soft, Non Tender, Non-Distended Extremities: No clubbing, No cyanosis, No edema, Capillary Refill Less than 3 Seconds Skin: No rashes, No breakdown Musculoskeletal: No Tenderness to Palpation of Joints or Extremities Neurological: Cranial nerves II-XII grossly intact, Neuro grossly intact Psych/Mental Status: Normal Affect, Appropriate Patient currently on levofloxacin and linezolid. Cultures growing gram-negative rods. Await speciation. Rapid Covid antigen test done here was negative and per discussion with assisted, the Covid tested in the nursing was also negative. Continue antibiotics. Continue eliquis Rest as per Tita Frazier NP having C's notes which I have reviewed and endorsed. Rest as per ROSITA CarbajalC's notes which I have reviewed and endorsed. Inpatient E&M: 92830 Subs Hosp L2
--- NOTE | 2020-05-26 14:02 | CASEMGMT ---
SW received a call from Wallace at [facility] [place] and patient's COVID test there was negative. Patient's test here was also negative. SW spoke with patient and asked if she will need transport back to [place] and she said she would. She said her daughter has a truck and she cannot get into it. RUKHSANA faxed negative COVID results and OT evaluation to [facility] [place]. Green sheet on patient's chart if she is ready over the weekend. Plan: d/c back to [facility]. Susu LATHAM MSW
[2020-05-26] MEDS: levoFLOXacin IV 750 MG/150 ML BAG 100 MG IV (15:26)
[2020-05-26] MEDS: 0.9% Saline Lock 10 ML Syringe IV (15:27)
[2020-05-26] MEDS: HYDROcodone Bitartrate/Apap 5/325 Tablet PO (15:27)
[2020-05-26 15:38] VITALS: BP 109/82; PULSE 75; RESP 18; TEMP 36.6; O2SAT 97
[2020-05-26] MEDS: Acetaminophen 325 MG Tablet 650 MG PO (18:34)
[2020-05-26 23:52] VITALS: BP 122/74; PULSE 71; RESP 18; TEMP 37.1; O2SAT 94
[2020-05-27] MEDS: Pantoprazole Sodium 40 MG Tablet PO ×2 (00:16→10:14)
[2020-05-27] MEDS: MELATONIN 3 MG TABLET PO (00:16)
[2020-05-27] MEDS: Gabapentin 300 MG Capsule PO ×3 (00:17→13:09)
[2020-05-27] MEDS: Divalproex Sodium 250 MG Tablet 500 MG PO ×2 (00:17→10:14)
[2020-05-27] MEDS: guaiFENesin Dm 10 ML UDC PO (00:32)
[2020-05-27] MEDS: APIXABAN 5 MG TABLET PO ×2 (00:33→10:14)
[2020-05-27] MEDS: Acetaminophen 325 MG Tablet 650 MG PO ×2 (00:34→09:01)
[2020-05-27] MEDS: Pravastatin 40 MG Tablet PO (00:36)
[2020-05-27] MEDS: Tamsulosin HCl 0.4 MG Capsule PO (00:36)
[2020-05-27] MEDS: Primidone 50 MG Tablet 100 MG PO (00:38)
[2020-05-27] MEDS: Mirabegron 50 MG TAB.ER.24H PO (00:38)
[2020-05-27] MEDS: 0.9% Saline Lock 10 ML Syringe IV (00:44)
[2020-05-27] MEDS: HYDROcodone Bitartrate/Apap 5/325 Tablet PO (04:41)
[2020-05-27 04:44] VITALS: BP 102/60; PULSE 78; RESP 18; TEMP 36.9; O2SAT 96
[2020-05-27 05:58] LABS: Hematocrit 34.6 % (37-47); Hemoglobin 10.6 g/dL (12.0-15.0); Mean Corp Hgb Conc 30.6 g/dL (32-36); Mean Corpuscular Hgb 27.5 pg (27.0-32.0); Mean Corpuscular Volume 89.9 fL (81-99); Mean Platelet Vol. 9.3 fl (6.2-12.0); Platelet Count 199 K/mm3 (150-450); RBC Distribution Width CV 14.8 % (11.6-14.6); RBC Distribution Width SD 49.4 fl (35.1-43.9); Red Blood Count 3.85 M/mm3 (4.2-5.4); White Blood Count 3.9 K/mm3 (4.4-11.0)
[2020-05-27 06:23] LABS: Anion Gap 4 (5-15); BUN 17 mg/dL (7-18); BUN/Creat Ratio 19.6 RATIO (10-20); Calcium,Total 7.5 mg/dL (8.5-10.1); Chloride 106 mmol/L (98-107); Creatinine, Serum 0.87 mg/dL (0.55-1.02); EST Glomerular Filtration Rate 68 mL/min (>60); Est Glom Filt Rate - Afr Amer 82 mL/min (>60); Estimated Creatinine Clearance 51.05 ml/min; Glucose 83 mg/dL (74-106); Potassium 4.5 mmol/L (3.5-5.1); Sodium Level 139 mmol/L (136-145)
--- NOTE | 2020-05-27 08:49 | RAD_ITS ---
STUDY: X-RAY - RIGHT KNEE REASON FOR EXAM: Female, 75 years old. RT KNEE PAIN. HX FALL. LTD ROM TECHNIQUE: 4 view(s) of the knee. COMPARISON: 4 made 2019 FINDINGS: Total knee arthroplasty is demonstrated showing no evidence of hardware failure or malalignment. Diffuse demineralization is noted with no evidence of acute fracture. The soft tissue structures are unremarkable. RAD/Knee 3 Views IMPRESSION: Knee arthroplasty demonstrating normal alignment with no evidence of hardware failure. Electronically Signed: Harvey Menon DO at 9:52 EST , Service support ,
[2020-05-27 10:10] VITALS: BP 102/53; PULSE 77; RESP 18; TEMP 36.4; O2SAT 96
[2020-05-27] MEDS: levoFLOXacin IV 750 MG/150 ML BAG 100 MG IV (10:14)
[2020-05-27] MEDS: Furosemide 40 MG Tablet 60 MG PO (10:14)
[2020-05-27] MEDS: Fluticasone 0.05% 1 SPRAY NASAL.SRY 2 SPRAY NASAL (10:14)
[2020-05-27] MEDS: Famotidine 20 MG Tablet PO (10:14)
[2020-05-27] MEDS: buPROPion (XL) 150 MG TABLET.XL PO (10:14)
[2020-05-27] MEDS: Tolterodine Tartrate 4 MG CAP.SA PO (10:14)
[2020-05-27] MEDS: DULoxetine Hcl 60 MG Capsule PO (10:14)
[2020-05-27] MEDS: Acetaminophen 500 MG Tablet PO (10:15)
--- NOTE | 2020-05-27 11:10 | PCM.DC ---
- Discharge Diagnoses Current Active Problems: Current Active and Chronic Problems (Last Reviewed 05/25/20 @ 00:[address] Elpidio Faust MD) Cystitis (Acute) Unilateral primary osteoarthritis, right knee (Chronic) Chronic pain following surgery or procedure (Chronic) Morbid obesity with BMI of 45.0-49.9, adult (Chronic) ROXIE (obstructive sleep apnea) (Chronic) says she got off CPAP_ when she had gastric bypass surgery ......wieghed 248 after bypass and was up to 312 recently but, has been losing weight, unintentional. 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) Urinary tract infection (Acute) Segmental and somatic dysfunction of pelvic region (Chronic) Facet arthropathy, lumbar (Chronic) Segmental and somatic dysfunction of thoracic region (Chronic) Segmental and somatic dysfunction of lumbar region (Chronic) History of DVT (deep vein thrombosis) (Chronic) recurrent History of gastric bypass (Chronic) Shortness of breath on exertion (Chronic) You will use the following diet at home:: Calorie/Carbohydrate Controlled (specify 1200, 1400, etc) Discharge Activity: Return to Normal Activity Call your doctor if you observe: Shortness of breath, Dizziness, Fainting spells, Chest pain Additional Instructions: Covid test during admission negative. Quarantine for 1 week following Covid exposure previously at assisted living. Allergies/Adverse Reactions: Allergies ampicillin [From Unasyn] Allergy (Severe, Verified 05/24/20 20:17) Other Blisters on tongue /throat difficulty breathing sore tongue/throat warfarin sodium [From Coumadin] Allergy (Severe, Verified 05/24/20 20:17) Low red blood cells Medications to take at Discharge Cholecalciferol (VIT D3) [Vitamin D3] 1,000 unit PO DAILY 12/29/15 Duloxetine Hcl [Cymbalta] 60 mg PO DAILY 12/29/15 Gabapentin [Neurontin] 300 mg PO TID 12/29/15 Omeprazole 40 mg PO BID 01/01/18 Pravastatin [Pravachol] 40 mg PO QHS 08/05/18 Solifenacin Succinate [Vesicare] 10 mg PO DAILY 08/05/18 Apixaban [Eliquis] 5 mg PO BID 03/18/19 Fluticasone 0.05% [Flonase Nasal [place]] 2 spray NASAL DAILY 03/18/19 Furosemide [Lasix] 60 mg PO DAILY 03/18/19 Guaifenesin Dm [Robitussin Dm] 10 ml PO Q4H PRN 03/18/19 Primidone 100 mg PO QHS 03/18/19 SimETHICONE [Mylicon] 80 mg PO TIDCM 03/18/19 Lactobacillus Acidophilus [Acidophilus] 1 ea PO DAILY 09/06/19 Tamsulosin HCl [Flomax] 0.4 mg PO QHS 09/06/19 Magnesium Hydroxide [Milk Of Magnesia] 30 ml PO DAILY PRN PRN 09/23/19 Nystatin 500,000U/5ML [Mycostatin] 5 ml PO 4X/DAY PRN 09/23/19 Polyethylene Glycol 3350 [Miralax] 17 gm PO DAILY PRN 09/23/19 Bupropion HCl [Bupropion Xl] 150 mg PO DAILY 01/24/20 Hydrocodone/Acetaminophen [[place] 5-325 Tablet] 1 ea PO Q12H PRN 01/24/20 Mirabegron [Myrbetriq] 50 mg PO QHS 01/24/20 Divalproex Sodium [Depakote] 500 mg PO BID 03/23/20 Famotidine [Pepcid] 20 mg PO DAILY 03/23/20 Penicillin V Potassium 250 mg PO TID 04/24/20 Cephalexin [Keflex] 250 mg PO QHS 05/24/20 Melatonin 3 mg PO QHS 05/24/20 Acetaminophen [Tylenol Tablet] 650 mg PO Q6H PRN PRN tab 05/27/20 Levofloxacin [Levaquin] 750 mg PO DAILY #5 tab 05/27/20 Phenazopyridine [Pyridium] 100 mg PO TID #5 tab 05/27/20 The following prescriptions were given: Levofloxacin [Levaquin] 750 mg PO DAILY #5 tab Prescription Printed Phenazopyridine [Pyridium] 100 mg PO TID #5 tab Prescription Printed Primary Care Physician: Gonzales Pinto MD [Primary Care Provider] - Please follow up with your Primary Care Physician in: 1 Week Test Results: Test results from this visit will be discussed in further detail at your follow-up appointment, if applicable. Please Follow Up With: Alejandra Villavicencio MD When: Call for routine follow up Proposed Discharge Date: 05/27/20
--- NOTE | 2020-05-27 11:16 | DS.PCM_ITS ---
<Tita Frazier [employer] CONCRETE BATCHER - Last Filed: 05/27/20 11:22> Discharge Date and Diagnosis - Problem List Patient Problems: Active and Suspected Problems (Last Reviewed 05/25/20 @ 00:[address] Elpidio Faust MD) Cystitis (Acute) Urinary tract infection (Acute) Date of Admission: 05/25/20 Date of Discharge: 05/27/20 - Primary Discharge Diagnosis Acute Problems: Active Problems (Last Reviewed 05/25/20 @ 00:[address] Elpidio Faust MD) 1. Acute Enterobacter UTI, history of recurrent complicated UTIs 2. Type 2 diabetes mellitus with diabetic peripheral neuropathy 3. History of DVT 4. Anemia of chronic disease/iron deficiency anemia 5. Depression/anxiety 6. Hyperlipidemia 7. Morbid obesity 8. Recent Covid exposure-intermittent cough. Rapid antigen negative. - Secondary Discharge Diagnosis Chronic Problems: Chronic Problems (Last Reviewed 05/25/20 @ 00:[address] Elpidio Faust MD) Unilateral primary osteoarthritis, right knee (Chronic) Chronic pain following surgery or procedure (Chronic) Morbid obesity with BMI of 45.0-49.9, adult (Chronic) ROXIE (obstructive sleep apnea) (Chronic) says she got off CPAP_ when she had gastric bypass surgery ......wieghed 248 after bypass and was up to 312 recently but, has been losing weight, unintentional. 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 (Chronic) Shortness of breath on exertion (Chronic) Hospital Course and Treatment Imaging Results: Diagnostic Data Knee X-Ray 05/27/20 08:49 IMPRESSION: Knee arthroplasty demonstrating normal alignment with no evidence of hardware failure. Electronically Signed: Harvey Menon DO at 9:52 EST , Service support , Operations: None Procedures: None Summary of Care Provided: The patient is a 75 year old F admitted 05/25/2020 due to dysuria. 1. Acute Enterobacter UTI, history of recurrent complicated UTIs-previous cultures with multiple organisms. Culture sensitive to Levaquin, continue at discharge to complete course. Continue home mirabegron, Flomax, Vesicare. Recommend follow-up with Dr. Villavicencio, patient's urologist for routine outpatient follow-up given history of complicated UTIs. 2. Type 2 diabetes mellitus with diabetic peripheral neuropathy- diet controlled. 3. 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 4. Anemia of chronic disease/iron deficiency anemia- stable. 5. Depression/anxiety-continue bupropion, duloxetine. 6. Hyperlipidemia-continue statin. 7. Morbid obesity-encouraged diet and lifestyle modifications. 8. Recent Covid exposure-intermittent cough. Rapid antigen negative. Recommend quarantine for 1 week following recent exposure at assisted living. General: Alert, Oriented x3, Cooperative HEENT: Atraumatic, PERRLA, EOMI, Normocephalic Neck: Supple, No JVD, Negative Carotid Bruits Lungs: Clear to auscultation, Normal air movement Cardiovascular: Regular rate, No murmurs Abdomen: Bowel Sounds Present, Soft, Non Tender, Non-Distended Extremities: No clubbing, No cyanosis, No edema, Capillary Refill Less than 3 Seconds Skin: No rashes, No breakdown Musculoskeletal: No Tenderness to Palpation of Joints or Extremities Neurological: Cranial nerves II-XII grossly intact, Neuro grossly intact Psych/Mental Status: Normal Affect, Appropriate Patient seen and examined prior to discharge. Physical assessment as noted above. Patient is stable for discharge with follow up recommendations as noted above. This patient was seen by MEGHANA Carbajal under the supervision of Dr. Quintero. Patient Problems: Active and Suspected Problems (Last Reviewed 05/25/20 @ 00:[address] Elpidio Faust MD) Cystitis (Acute) Urinary tract infection (Acute) - Physical Exam Vitals/I&O's: Vital Signs Temp Pulse Resp BP Pulse Ox 97.6 F L 77 18 102/53 L 96 05/27/20 10:10 05/27/20 10:10 05/27/20 10:10 05/27/20 10:10 05/27/20 10:10 Oxygen Delivery Method Room Air Weight: 291 lb 14.272 oz Body Mass Index (BMI) 48.5 Intake and Output for Last 24 Hours 05/25/20 05/26/20 05/27/20 23:59 23:59 23:59 Intake Total 2019 690 / 690 200 / 200 Output Total 500 / 500 500 / 500 500 / 500 Balance 1520 / 1520 190 / 190 -300 / -300 Microbiology Past 72 Hours 05/24/20 21:30 Urine, Clean Catch Urine Culture - Final Enterobacter cloacae complex Enterobacter cloacae complex#2 05/26/20 12:00 Mucosa - Nasopharyngeal SARS-CoV-2 Antigen (Rapid) - Final Laboratory Results 05/27/20 05:40: WBC 3.9 L, RBC 3.85 L, Hgb 10.6 L, Hct 34.6 L, MCV 89.9, MCH 27.5, MCHC 30.6 L, RDW Std Deviation 49.4 H, RDW Coeff of Chani 14.8 H, Plt Count 199, MPV 9.3 05/27/20 05:40: Sodium 139, Potassium 4.5, Chloride 106, Carbon Dioxide 29.0, Anion Gap 4 L, BUN 17, Creatinine 0.87, Estim Creat Clear Calc 51.05, Est GFR (MDRD) Af Amer 82, Est GFR (MDRD) Non-Af 68, BUN/Creatinine Ratio 19.6, Glucose 83, Calcium 7.5 L Current Medications Acetaminophen (Acetaminophen 325 Mg Tablet) 650 mg PO Q6H PRN PRN PRN Reason: Pain Score 1-10/Temp > 100.7 F Last Admin: 05/27/20 09:01 Dose: 650 mg Documented by: Acetaminophen (Acetaminophen 500 Mg Tablet) 500 mg PO DAILY [facility] Last Admin: 05/27/20 10:15 Dose: 500 mg Documented by: Hydrocodone Bitart/Acetaminophen (Hydrocodone Bitartrate/Apap 5/325 Tablet) 1 tablet PO Q12H PRN PRN PRN Reason: Pain 1-10 Last Admin: 05/27/20 04:41 Dose: 1 tablet Documented by: Apixaban (Apixaban 5 Mg Tablet) 5 mg PO BID [facility] Last Admin: 05/27/20 10:14 Dose: 5 mg Documented by: Bupropion HCl (Bupropion (Xl) 150 Mg Tablet.Xl) 150 mg PO DAILY [facility] Last Admin: 05/27/20 10:14 Dose: 150 mg Documented by: Cholecalciferol (Cholecalciferol (Vit D3) 1,000 Unit (25mcg)) 1,000 unit PO DAILY [facility] Last Admin: 05/27/20 10:16 Dose: 1,000 unit Documented by: Divalproex Sodium (Divalproex Sodium 250 Mg Tablet) 500 mg PO BID [facility] Last Admin: 05/27/20 10:14 Dose: 500 mg Documented by: Duloxetine HCl (Duloxetine Hcl 60 Mg Capsule) 60 mg PO DAILY [facility] Last Admin: 05/27/20 10:14 Dose: 60 mg Documented by: Famotidine (Famotidine 20 Mg Tablet) 20 mg PO DAILY [facility] Last Admin: 05/27/20 10:14 Dose: 20 mg Documented by: Fluticasone Propionate (Fluticasone 0.05% 1 [place] Nasal.Sry) 2 spray NASAL DAILY [facility] Last Admin: 05/27/20 10:14 Dose: 2 sprays Documented by: Furosemide (Furosemide 40 Mg Tablet) 60 mg PO DAILY [facility] Last Admin: 05/27/20 10:14 Dose: 60 mg Documented by: Gabapentin (Gabapentin 300 Mg Capsule) 300 mg PO TID [facility] Last Admin: 05/27/20 06:51 Dose: 300 mg Documented by: Guaifenesin (Guaifenesin Dm 10 Ml Udc) 10 ml PO Q4H PRN PRN Reason: COUGH Last Admin: 05/27/20 00:32 Dose: 10 ml Documented by: Sodium Chloride () 250 mls @ 15 mls/hr IV .[id number] PRN PRN Reason: Saline Flush Last Infusion: 05/25/20 16:01 Dose: Infused Documented by: Sodium Chloride () 250 mls @ 15 mls/hr IV .[id number] PRN PRN Reason: Additional IVPB Infusion Levofloxacin (Levaquin Iv) 750 mg in 150 mls @ 100 mls/hr IV DAILY [facility] Last Admin: 05/27/20 10:14 Dose: 100 mls/hr Documented by: Lactobacillus Acidophilus (Lactobacillus Acidophilus) 1 tablet PO DAILY [facility] Last Admin: 05/27/20 10:14 Dose: 1 tablet Documented by: Magnesium Hydroxide (Magnesium Hydroxide 30 Ml Udc) 30 ml PO DAILY PRN PRN PRN Reason: CONSTIPATION Melatonin (Melatonin 3 Mg Tablet) 3 mg PO QHS PRN PRN PRN Reason: INSOMNIA Melatonin (Melatonin 3 Mg Tablet) 3 mg PO QHS [facility] Last Admin: 05/27/20 00:16 Dose: 3 mg Documented by: Mirabegron (Mirabegron 50 Mg Tab.Er.24h) 50 mg PO QHS [facility] Last Admin: 05/27/20 00:38 Dose: 50 mg Documented by: Nystatin (Nystatin 500,000 Unit/5 Ml Udc) 500,000 unit PO 4X/DAY PRN PRN Reason: thrush Ondansetron HCl (Ondansetron 4 Mg/2 Ml Vial) 4 mg IV Q8H PRN PRN PRN Reason: NAUSEA/VOMITING Last Admin: 05/25/20 17:53 Dose: 4 mg Documented by: Pantoprazole Sodium (Pantoprazole Sodium 40 Mg Tablet) 40 mg PO BID [facility] Last Admin: 05/27/20 10:14 Dose: 40 mg Documented by: Phenazopyridine HCl (Phenazopyridine 95 Mg Tablet) 95 mg PO X1 ONE Stop: 05/27/20 11:04 Polyethylene Glycol (Polyethylene Glycol 3350 17 Gm Packet) 17 gm PO DAILY PRN PRN PRN Reason: Constipation Pravastatin Sodium (Pravastatin 40 Mg Tablet) 40 mg PO QHS [facility] Last Admin: 05/27/20 00:36 Dose: 40 mg Documented by: Primidone (Primidone 50 Mg Tablet) 100 mg PO QHS [facility] Last Admin: 05/27/20 00:38 Dose: 100 mg Documented by: Sodium Chloride (0.9% Saline Lock 10 Ml Syringe) 10 - 40 ml IV UD PRN PRN Reason: SALINE FLUSH Last Admin: 05/27/20 00:44 Dose: 10 ml Documented by: Tamsulosin HCl (Tamsulosin Hcl 0.4 Mg Capsule) 0.4 mg PO QHS [facility] Last Admin: 05/27/20 00:36 Dose: 0.4 mg Documented by: Tolterodine Tartrate (Tolterodine Tartrate 4 Mg Cap.Sa) 4 mg PO DAILY [facility] Last Admin: 05/27/20 10:14 Dose: 4 mg Documented by: Discharge Diet: Carb Control Diet Discharge Activity: Return to Normal Activity Call your doctor if you observe: Shortness of breath, Dizziness, Fainting spells, Chest pain Home Medications: Medications to take at Discharge Cholecalciferol (VIT D3) [Vitamin D3] 1,000 unit PO DAILY 12/29/15 Duloxetine Hcl [Cymbalta] 60 mg PO DAILY 12/29/15 Gabapentin [Neurontin] 300 mg PO TID 12/29/15 Omeprazole 40 mg PO BID 01/01/18 Pravastatin [Pravachol] 40 mg PO QHS 08/05/18 Solifenacin Succinate [Vesicare] 10 mg PO DAILY 08/05/18 Apixaban [Eliquis] 5 mg PO BID 03/18/19 Fluticasone 0.05% [Flonase Nasal [place]] 2 spray NASAL DAILY 03/18/19 Furosemide [Lasix] 60 mg PO DAILY 03/18/19 Guaifenesin Dm [Robitussin Dm] 10 ml PO Q4H PRN 03/18/19 Primidone 100 mg PO QHS 03/18/19 SimETHICONE [Mylicon] 80 mg PO TIDCM 03/18/19 Lactobacillus Acidophilus [Acidophilus] 1 ea PO DAILY 09/06/19 Tamsulosin HCl [Flomax] 0.4 mg PO QHS 09/06/19 Magnesium Hydroxide [Milk Of Magnesia] 30 ml PO DAILY PRN PRN 09/23/19 Nystatin 500,000U/5ML [Mycostatin] 5 ml PO 4X/DAY PRN 09/23/19 Polyethylene Glycol 3350 [Miralax] 17 gm PO DAILY PRN 09/23/19 Bupropion HCl [Bupropion Xl] 150 mg PO DAILY 01/24/20 Hydrocodone/Acetaminophen [[place]ris 5-325 Tablet] 1 ea PO Q12H PRN 01/24/20 Mirabegron [Myrbetriq] 50 mg PO QHS 01/24/20 Divalproex Sodium [Depakote] 500 mg PO BID 03/23/20 Famotidine [Pepcid] 20 mg PO DAILY 03/23/20 Penicillin V Potassium 250 mg PO TID 04/24/20 Cephalexin [Keflex] 250 mg PO QHS 05/24/20 Melatonin 3 mg PO QHS 05/24/20 Acetaminophen [Tylenol Tablet] 650 mg PO Q6H PRN PRN tab 05/27/20 Levofloxacin [Levaquin] 750 mg PO DAILY #5 tab 05/27/20 Phenazopyridine [Pyridium] 100 mg PO TID #5 tab 05/27/20 Following Prescriptions Were Given to Patient: Levofloxacin [Levaquin] 750 mg PO DAILY #5 tab Prescription Printed Phenazopyridine [Pyridium] 100 mg PO TID #5 tab Prescription Printed Primary Care Physician: Gonzales Pinto MD [Primary Care Provider] - Please follow up with your Primary Care Physician in: 1 Week Please Follow Up With: Alejandra Villavicencio MD When: Call for routine follow up Disposition: Asstd Living/Non-Skill [facility] Minutes spent on discharge:: 35 Patient Condition:: Stable Medical Necessity - Tobacco Use Smoking Status: Never smoker Meaningful Use Info Meaningful Use Diagnoses (Choose all that apply): None applicable <Rosa Quintero - Last Filed: 05/27/20 17:02> Discharge Date and Diagnosis - Primary Discharge Diagnosis Acute Problems: Active Problems (Last Reviewed 05/25/20 @ 00:[address] Elpidio Faust MD) Cystitis (Acute) Urinary tract infection (Acute) - Secondary Discharge Diagnosis Chronic Problems: Chronic Problems (Last Reviewed 05/25/20 @ 00:[address] Elpidio Faust MD) Unilateral primary osteoarthritis, right knee (Chronic) Chronic pain following surgery or procedure (Chronic) Morbid obesity with BMI of 45.0-49.9, adult (Chronic) ROXIE (obstructive sleep apnea) (Chronic) says she got off CPAP_ when she had gastric bypass surgery ......wieghed 248 after bypass and was up to 312 recently but, has been losing weight, unintentional. 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 (Chronic) Shortness of breath on exertion (Chronic) Hospital Course and Treatment Imaging Results: 05/27/20 08:49 Xray Knee [Knee 3 Views] [RAD] Stat Summary of Care Provided: Patient seen by Tita Freddie [employer]CRET[employer] B[employer]ER-C under my supervision The patient is a 75 year old F with a past medical history as outlined was admitted through the ED with a complaint of dysuria. Symptoms have been going on for about a week. She also had associated urgency and frequency of urination as well as urinary incontinence no abdominal pain. She was admitted and managed for UTI. UA was positive for UTI. She was started on IV ceftriaxone. Urine culture Enterobacter. She did have a history of recurrent UTI. Patient symptoms gradually improved and she felt better. She was discharged home on 05/27/2020 with a prescription for levofloxacin based on sensitivities of Enterobacter. She is to follow-up with her primary care doctor and is also to follow-up with her urologist on outpatient basis. Patient seen and examined prior to discharge. She had no complaints and felt well. Review of stems otherwise negative. Labs and vitals reviewed. Her medication reviewed and reconciled. o/E: Vital Signs Temp Pulse Resp BP Pulse Ox 97.6 F L 77 18 102/53 L 96 05/27/20 10:10 05/27/20 10:10 05/27/20 10:10 05/27/20 10:10 05/27/20 10:10 [] General: Alert, Oriented x3, Cooperative, morbidly obese HEENT: Atraumatic, PERRLA, EOMI, Normocephalic Neck: Supple, No JVD, Negative Carotid Bruits Lungs: Clear to auscultation, Normal air movement Cardiovascular: Regular rate, No murmurs Abdomen: Bowel Sounds Present, Soft, Non Tender, Non-Distended Extremities: No clubbing, No cyanosis, No edema, Capillary Refill Less than 3 Seconds Skin: No rashes, No breakdown Musculoskeletal: No Tenderness to Palpation of Joints or Extremities Neurological: Cranial nerves II-XII grossly intact, Neuro grossly intact Psych/Mental Status: Normal Affect, Appropriate Plan ss for discharge home today. Rest as per Tita BECKERC's note which I have reviewed and endorsed. - Physical Exam Vitals/I&O's: Vital Signs Temp Pulse Resp BP Pulse Ox 97.6 F L 77 18 102/53 L 96 05/27/20 10:10 05/27/20 10:10 05/27/20 10:10 05/27/20 10:10 05/27/20 10:10 Oxygen Delivery Method Room Air Weight: 291 lb 14.272 oz Body Mass Index (BMI) 48.5 Intake and Output for Last 24 Hours 05/25/20 05/26/20 05/27/20 23:59 23:59 23:59 Intake Total 2019 690 / 690 590 / 590 Output Total 500 / 500 500 / 500 1200 / 1200 Balance 1520 / 1520 190 / 190 -610 / -610 Microbiology Past 72 Hours 05/24/20 21:30 Urine, Clean Catch Urine Culture - Final Enterobacter cloacae complex Enterobacter cloacae complex#2 05/26/20 12:00 Mucosa - Nasopharyngeal SARS-CoV-2 Antigen (Rapid) - Final Laboratory Results 05/27/20 05:40: WBC 3.9 L, RBC 3.85 L, Hgb 10.6 L, Hct 34.6 L, MCV 89.9, MCH 27.5, MCHC 30.6 L, RDW Std Deviation 49.4 H, RDW Coeff of Chani 14.8 H, Plt Count 199, MPV 9.3 05/27/20 05:40: Sodium 139, Potassium 4.5, Chloride 106, Carbon Dioxide 29.0, Anion Gap 4 L, BUN 17, Creatinine 0.87, Estim Creat Clear Calc 51.05, Est GFR (MDRD) Af Amer 82, Est GFR (MDRD) Non-Af 68, BUN/Creatinine Ratio 19.6, Glucose 83, Calcium 7.5 L Inpatient E&M: 00640 Disch Hosp
--- NOTE | 2020-05-27 11:41 | NURSING ---
Called report to Wallace aparicio [facility] [place]
[2020-05-27] MEDS: Phenazopyridine 95 MG Tablet PO (12:02)
== END 2020-05-27 14:00 | disposition home or self-care (01) | DRG 690 ==
LOC: ED 22:10 → PCU 23:04
PROVIDERS: Nurse Practitioner Family; Admitting Provider Hospitalist; Emergency Provider Emergency Medicine; PCP Family Medicine; Visit Provider Student in an Organized Health Care Education/Training Program
DX: N39.0 Urinary tract infection, site not specified (principal); Z68.42 Body mass index [BMI] 45.0-49.9, adult; N39.41 Urge incontinence; B96.89 Other specified bacterial agents as the cause of diseases classified elsewhere; M17.11 Unilateral primary osteoarthritis, right knee; E66.01 Morbid (severe) obesity due to excess calories; G47.33 Obstructive sleep apnea (adult) (pediatric); M99.05 Segmental and somatic dysfunction of pelvic region; M99.02 Segmental and somatic dysfunction of thoracic region; M99.03 Segmental and somatic dysfunction of lumbar region; D50.9 Iron deficiency anemia, unspecified; F41.9 Anxiety disorder, unspecified; D63.8 Anemia in other chronic diseases classified elsewhere; E78.5 Hyperlipidemia, unspecified; E11.42 Type 2 diabetes mellitus with diabetic polyneuropathy; I10 Essential (primary) hypertension; Z79.01 Long term (current) use of anticoagulants; Z82.49 Family history of ischemic heart disease and other diseases of the circulatory system; Z98.84 Bariatric surgery status; Z86.718 Personal history of other venous thrombosis and embolism; Z87.440 Personal history of urinary (tract) infections; Z90.710 Acquired absence of both cervix and uterus; Z96.659 Presence of unspecified artificial knee joint; Z20.828 Contact with and (suspected) exposure to other viral communicable diseases
CPT/HCPCS: 36415; 73562; 80048; 81001; 82962; 83605; 85025; 85027; 87086; 87088; 87186; 87426; 97116; 97162; 97165; 99285; J2020; J7030; J7040; J7050; A4216; J2405

== ENCOUNTER 2020-07-09 14:52 | Inpatient (IN) | payer MEDICARE, MEDICAID, SELFPAY ==
[2020-05-24 23:42] VITALS: BMI 48.5
[2020-07-09] VITALS (7 sets, daily range): BP systolic 104–130; BP diastolic 42–62; PULSE 59–90; RESP 16–19; TEMP 36.1–36.7; O2SAT 98–99; BMI 55.1; BMI 49.2; BMI 49.3
--- NOTE | 2020-07-09 15:29 | ED.DCSUM_ITS ---
History of Present Illness Chief Complaint: Abd Pain Informant: Patient Narrative: 75-year-old female presenting with resistant UTI. Patient states she has been on antibiotics as an outpatient but was told that her urine culture showed resistance to oral antibiotics. Patient states he still has dysuria and some mild suprapubic pain. She did not had a fever or chills. She does have nausea without vomiting. - Past Medical History (1) ROXIE (obstructive sleep apnea) Status: Chronic Comment: says she got off CPAP_ when she had gastric bypass surgery ......wieghed 248 after bypass and was up to 312 recently but, has been losing weight, unintentional. (2) DM II (diabetes mellitus, type II), controlled Status: Chronic Comment: states this was cured with the gastric bypass surgery (3) UTI (urinary tract infection) Status: Acute Past Medical History - Allergies and Home Meds Allergies/Adverse Reactions: Allergies ampicillin [From Unasyn] Allergy (Severe, Verified 07/09/20 14:58) Other Blisters on tongue /throat difficulty breathing sore tongue/throat warfarin sodium [From Coumadin] Allergy (Severe, Verified 07/09/20 14:58) Low red blood cells Prior records reviewed: Yes Past Medical History: - - Reviewed in problem list Surgical History: cholecystectomy, gastric bypass, hysterectomy, tonsillectomy, - - Gastric bypass, surgery for left arm fracture Lives: Alone Smoking Status: Never smoker Alcohol: None Drugs: None - Family History Paternal Family History: Family History (Last Reviewed 05/25/20 @ 00:[address] Elpidio Faust MD) Other Heart disease High cholesterol Hypertension Myocardial infarction Family History: Reports: Cancer, Heart Disease, - Maternal Family History: Family History (Last Reviewed 05/25/20 @ 00:[address] Elpidio Faust MD) Other Heart disease High cholesterol Hypertension Myocardial infarction Family History: Reports: Heart Disease, Hypertension Review of Systems General: Denies: Chills, Fever, Sweats Eyes: Denies: Visual changes - bilaterally, Diplopia ENT: Denies: Rhinorrhea, Sore throat Cardiovascular: Denies: Chest pain, Palpitations Respiratory: Denies: Dyspnea, Cough, Dyspnea on exertion Gastrointestinal: Reports: Abdominal pain, Nausea. Denies: Vomiting, Diarrhea Genitourinary: Reports: Dysuria, Frequency. Denies: Hematuria Musculoskeletal: Denies: Myalgias, Arthralgias Skin: Denies: Rash, Abscess Neurological: Denies: Headache, Weakness Psych: Denies: Depression, Anxiety Physical Exam Vital Signs/Narrative: Vital Signs Temp Pulse Resp BP Pulse Ox 07/09/20 14:57 97 F L 85 19 H 130/42 H 99 07/09/20 14:53 97 F L 85 19 H 130/42 H 99 Inital Vital Signs reviewed: Yes General: Well nourished, No Acute Distress Head: Normocephalic, Atraumatic Eyes: Perrl, EOMI ENT: Moist mucous membranes, No rhinorrhea Cardiovascular: Regular rate, Regular rhythm Respiratory: No distress, CTA bilaterally Extremities: Nontender, No edema Skin: Normal color, No rash Neurological: Alert, Oriented x3, Cranial nerves II-XII grossly intact Psychological: Normal affect, Normal Mood Diagnostic/Tx/Re-eval Laboratory Data 07/09/20 07/09/20 07/09/20 15:25 15:25 15:40 WBC 5.4 RBC 3.98 L Hgb 11.0 L Hct 35.5 L MCV 89.2 MCH 27.6 MCHC 31.0 L RDW Std Deviation 48.3 H RDW Coeff of Chani 14.7 H Plt Count 247 MPV 10.0 Immature Gran % (Auto) 0.400 Neut % (Auto) 55.6 Lymph % (Auto) 28.5 [place] % (Auto) 11.2 H Eos % (Auto) 3.4 Baso % (Auto) 0.9 Absolute Neuts (auto) 3.0 Absolute Lymphs (auto) 1.53 Nucleated RBC % 0 Sodium 140 Potassium 3.7 Chloride 109 H Carbon Dioxide 26.0 Anion Gap 5 BUN 21 H Creatinine 0.73 Estim Creat Clear Calc 39.04 Est GFR (MDRD) Af Amer 100 Est GFR (MDRD) Non-Af 82 BUN/Creatinine Ratio 28.6 H Glucose 72 L Calcium 7.7 L Urine Color Yellow Urine Clarity Clear Urine pH 6.0 Ur Specific [place] 1.015 Urine Protein Negative Urine Glucose (UA) Normal Urine Ketones Negative Urine Occult Blood 25 H Urine Nitrite Positive H Urine Bilirubin Negative Urine Urobilinogen Normal Ur Leukocyte Esterase 500 H Urine RBC 0 SEEN Urine WBC 25-50 SEEN Ur Squamous Epith Cells 0 SEEN Urine Bacteria 3+ Urine Mucus 0 SEEN - Medical Decision Making D5-year-old female presenting with UTI symptoms and failure of outpatient antibiotics. Looking at her urine culture she is resistant to all oral outpatient anabiotic's. Patient's urinalysis is positive here in the ED. Lab work is unremarkable. She is given Zofran and Pyridium for her symptoms. She will be started on ertapenem initially. Hospitalist will obtain ID consult. Patient stable for the medical floor. Impression: 1. UTI 2. Failure of outpatient antibiotics ED Disposition - Plan for ED Patient:
[2020-07-09 15:38] LABS: Absolute Lymphocyte Count 1.53 X10^3/uL (0.83-4.51); Basophil# 0.05 X10^3/uL; Basophil% 0.9 % (0-1); Eosinophil# 0.18 X10^3/uL; Eosinophils% 3.4 % (0-5); Hematocrit 35.5 % (37-47); Lymphocyte # 1.53 X10^3/ul (4.0); Lymphocyte % 28.5 % (19-41); Mean Corpuscular Hgb 27.6 pg (27.0-32.0); Mean Corpuscular Volume 89.2 fL (81-99); Monocyte% 11.2 % (0-10); NRBC Flagged by Analyzer 0 % (0-5); Neutrophil # 2.99 X10^3/uL (2.7-7.7); Neutrophil % 55.6 % (47-70); Platelet Count 247 K/mm3 (150-450); RBC Distribution Width CV 14.7 % (11.6-14.6); RBC Distribution Width SD 48.3 fl (35.1-43.9); Red Blood Count 3.98 M/mm3 (4.2-5.4); White Blood Count 5.4 K/mm3 (4.4-11.0)
[2020-07-09] MEDS: 0.9% Normal Saline 1,000 ML 1000 ML IV (15:43)
[2020-07-09] MEDS: Phenazopyridine 95 MG Tablet PO (15:43)
[2020-07-09] MEDS: Ondansetron 4 MG/2 ML Vial IV (15:43)
[2020-07-09 15:52] LABS: Anion Gap 5 (5-15); BUN 21 mg/dL (7-18); BUN/Creat Ratio 28.6 RATIO (10-20); Calcium,Total 7.7 mg/dL (8.5-10.1); Chloride 109 mmol/L (98-107); Creatinine, Serum 0.73 mg/dL (0.55-1.02); EST Glomerular Filtration Rate 82 mL/min (>60); Est Glom Filt Rate - Afr Amer 100 mL/min (>60); Estimated Creatinine Clearance 39.04 ml/min; Glucose 72 mg/dL (74-106); Potassium 3.7 mmol/L (3.5-5.1); Sodium Level 140 mmol/L (136-145)
[2020-07-09 15:52] LABS: Mucous, Urine 0 SEEN /hpf (<or=2+); Red Blood Cells-Urine 0 SEEN /hpf (0-5); Squamous Epithelial Cells - UA 0 SEEN /hpf (5-10)
[2020-07-09 16:03] LABS: Color, Urine Yellow (Yellow); Glucose, Dipstick Normal (Normal); Ketone-Dipstick Negative (Negative); Leukocyte Esterase-Dipstick 500 /ul (Negative); Nitrite-Dipstick Positive (Negative); Occult Blood-Urine 25 /ul (Negative); Protein-Dipstick Negative (Negative); Specific Gravity, Urine 1.015 (1.002-1.030); Urine Bilirubin Dipstick Negative (Negative); Urine Clarity Clear (Clear); Urine Urobilinogen Normal (Normal)
[2020-07-09 16:13] LABS: Bacteria 3+ /hpf (None Seen); White Blood Cells 25-50 SEEN /hpf (0-5)
--- NOTE | 2020-07-09 16:18 | PCM.HP.STD ---
Problem List (1) UTI (urinary tract infection) Status: Acute Qualifiers: Urinary tract infection type: site unspecified Hematuria presence: without hematuria Qualified Code(s): N39.0 - Urinary tract infection, site not specified (2) HTN (hypertension) Status: Chronic Qualifiers: Hypertension type: essential hypertension Qualified Code(s): I10 - Essential (primary) hypertension (3) HLD (hyperlipidemia) Status: Chronic Qualifiers: Hyperlipidemia type: unspecified Qualified Code(s): E78.5 - Hyperlipidemia, unspecified (4) GERD (gastroesophageal reflux disease) Status: Chronic Qualifiers: Esophagitis presence: esophagitis presence not specified Qualified Code(s): K21.9 - Gastro-esophageal reflux disease without esophagitis (5) Anxiety and depression Status: Chronic (6) Chronic neuropathic pain Status: Chronic (7) Morbid obesity with BMI of 45.0-49.9, adult Status: Chronic (8) ROXIE (obstructive sleep apnea) Status: Chronic Comment: says she got off CPAP_ when she had gastric bypass surgery ......wieghed 248 after bypass and was up to 312 recently but, has been losing weight, unintentional. 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 The patient is a 75 y/o F from Assisted Living w/ PMHx: OA, HTN, HLD, Diabetes mellitus type II, Chronic headaches, Morbid obesity, BPH, Anxiety and Depression, GERD, Hx DVT on eliquis with IVCF placement who presents to the [facility] ED on 07/09/20 with history of recent UTI diagnosis on abx therapy which she just finished (Keflex per facility records) with recent eventually UCx resulted Klebsiella with ongoing dysuria, suprapubic TTP, nausea without emesis with appropriate oral intake despite presentation with fatigue and malaise without fever and chills. She describes lower abdominal discomfort as a dull aching, cramping and notes it is mild to moderate in nature. Work-up in the ED included T 97, heart rate 85, BP 130/42, respiratory rate 19, 99% on room air, CBC with WC 5.4, hemoglobin 11, platelet 247 without shift, BMP with chloride 109, BUN/creatinine 21/0.73, glucose 72, urinalysis concerning for urinary tract infection, urine culture pending per ED. in the ED patient ministered Zofran, normal saline and phenazopyridine. Most recent urine cultures with noted 05/24/2020 Enterobacter resistant to Ancef, and sensitive to ertapenem and nitrofurantoin as well as resistant to Zosyn in addition to 10/28/2019 urine culture with Pseudomonas and VRE. Current culture from [facility] with Klebsiella pneumoniae ESBL. Past Medical History Past Medical History (Chronic Problems): Chronic Problems (Last Reviewed 05/25/20 @ 00:[address] Elpidio Faust MD) HTN (hypertension) (Chronic) HLD (hyperlipidemia) (Chronic) GERD (gastroesophageal reflux disease) (Chronic) Anxiety and depression (Chronic) Chronic neuropathic pain (Chronic) Unilateral primary osteoarthritis, right knee (Chronic) Chronic pain following surgery or procedure (Chronic) Morbid obesity with BMI of 45.0-49.9, adult (Chronic) ROXIE (obstructive sleep apnea) (Chronic) says she got off CPAP_ when she had gastric bypass surgery ......wieghed 248 after bypass and was up to 312 recently but, has been losing weight, unintentional. 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 (Chronic) Shortness of breath on exertion (Chronic) Medical History: Medical History (Last Reviewed 05/25/20 @ 00:[address] Elpidio Faust MD) Arthritis M19.90 Bilateral headaches R51 Carpal tunnel syndrome G56.00 Cataracts, both eyes H26.9 Closed left arm fracture S42.302A Diabetes E11.9 FHx: cholecystectomy Z84.89 Heart disease I51.9 History of gallstones Z87.19 Neuropathy G62.9 Osteoarthritis M19.90 Polycystic ovaries E28.2 Hypertension I10 Allergies ampicillin [From Unasyn] Allergy (Severe, Verified 07/09/20 14:58) Other Blisters on tongue /throat difficulty breathing sore tongue/throat warfarin sodium [From Coumadin] Allergy (Severe, Verified 07/09/20 14:58) Low red blood cells Home Medications: Ambulatory Orders Medication Instructions Recorded Cholecalciferol (VIT D3) [Vitamin 1,000 unit PO DAILY 12/29/15 D3] Duloxetine Hcl [Cymbalta] 60 mg PO DAILY 12/29/15 Omeprazole 40 mg PO BID 01/01/18 Pravastatin [Pravachol] 40 mg PO QHS 08/05/18 Solifenacin Succinate [Vesicare] 10 mg PO DAILY 08/05/18 Apixaban [Eliquis] 5 mg PO BID 03/18/19 Fluticasone 0.05% [Flonase Nasal 2 spray NASAL DAILY 03/18/19 [place]] Furosemide [Lasix] 60 mg PO DAILY 03/18/19 Guaifenesin Dm [Robitussin Dm] 10 ml PO Q4H PRN 03/18/19 Primidone 100 mg PO QHS 03/18/19 SimETHICONE [Mylicon] 80 mg PO TIDCM 03/18/19 Lactobacillus Acidophilus 1 ea PO DAILY 09/06/19 [Acidophilus] Tamsulosin HCl [Flomax] 0.4 mg PO QHS 09/06/19 Magnesium Hydroxide [Milk Of 30 ml PO DAILY PRN PRN 09/23/19 Magnesia] Nystatin 500,000U/5ML [Mycostatin] 5 ml PO 4X/DAY PRN 09/23/19 Polyethylene Glycol 3350 [Miralax] 17 gm PO DAILY PRN 09/23/19 Bupropion HCl [Bupropion Xl] 150 mg PO DAILY 01/24/20 Hydrocodone/Acetaminophen [[place] 1 ea PO Q12H PRN 01/24/20 5-325 Tablet] Mirabegron [Myrbetriq] 50 mg PO QHS 08/03/20 Divalproex Sodium [Depakote] 500 mg PO BID 03/23/20 Famotidine [Pepcid] 20 mg PO BID 03/23/20 Cephalexin [Keflex] 250 mg PO QHS 05/24/20 Melatonin 3 mg PO QHS 05/24/20 Acetaminophen [Tylenol Tablet] 650 mg PO Q6H PRN PRN tab 05/27/20 Gabapentin [Neurontin] 400 mg PO TID 07/09/20 Surgical History: Surgical History (Last Reviewed 05/25/20 @ 01:[address] 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 Smoking Status: Never smoker Alcohol: None Drugs: None - *Family History Paternal Family History: Family History (Last Reviewed 05/25/20 @ 00:[address] Elpidio Faust MD) Other Heart disease High cholesterol Hypertension Myocardial infarction History Items: Cancer, Heart Disease Maternal Family History: Family History (Last Reviewed 05/25/20 @ 00:[address] Elpidio Faust MD) Other Heart disease High cholesterol Hypertension Myocardial infarction History Items: Heart Disease, Hypertension Review of Systems Constitutional: Reports: Malaise, Weakness, Fatigue. Denies: Anorexia, Chills, Fever, Weight Change HEENT: Denies: Head Aches, Sinus Congestion, Sinus Drainage Cardiovascular: Denies: Chest Pain, Palpitations Respiratory: Denies: Cough, Shortness of breath at rest, Sputum production Gastrointestinal: Reports: Abdominal Pain - Bilateral lower quadrant and suprapubic tenderness., Constipation, Nausea. Denies: Diarrhea, Vomiting Genitourinary: Reports: Dysuria Musculoskeletal: Reports: Back Pain, Joint Pain, Leg Pain. Denies: Joint Tenderness Skin: Denies: Rash, Wounds Neurological: Reports: - - Bilateral lower extremity chronic paresthesias, neuropathy.. Denies: Focal weakness, Numbness, Tingling Psychiatric: Reports: Anxiety, Depression. Denies: Homicidal Ideations, Suicidal Ideations Hematologic/ Lymphatic: Reports: Easy Bruising, Easy Bleeding VTE Information - Inpt Only VTE Present on Admission: No VTE Mechan Device Prophylaxis: SCD's VTE Pharm Prophylaxis ordered?: Yes Patient Problems: Active and Suspected Problems (Last Reviewed 05/25/20 @ 00:[address] Elpidio Faust MD) UTI (urinary tract infection) (Acute) Subjective: Seated upright in ED bed, fatigued otherwise no acute distress. Objective: Physical Examination: General: awake, alert, oriented x 3 and cooperative, seated upright in the ED bed, fatigued otherwise no acute distress. Skin: normal color, turgor, no icterus, cyanosis. HEENT: AT/NC, EOMI, PERRLA, mildly dry MM, no carotid bruits or JVD noted however thickened neck makes examination difficult. Lungs: Diminished breath sounds, greater bases, moderate effort, no rales, ronchi or wheezing. Heart: Regular rate and rhythm; no gallop, rub audible. Abdomen: soft, morbidly obese, some mild discomfort in the suprapubic region, no rebound or guarding, difficult to discern distention given habitus, distant normal bowel sounds, unable to discern HSM secondary to habitus. Extremities: no cyanosis or clubbing, chronic bilateral lower extremity edema with snug Dhaval wraps in place. Neurological: patient awake, alert, oriented as noted; cognitive function intact; pupils equally reactive to light and accomodation; cranial nerves II-XII grossly normal, moving all 4 extremities, no focal deficits, strength mildly to moderately global decreased secondary to acute complaints. Psychiatric: affect appears fatigued otherwise normal, no acute evidence of depressive or anxiety feelings. - Physical Exam Vitals/I&O's: Vital Signs Temp Pulse Resp BP Pulse Ox 97 F L 85 19 H 130/42 H 99 07/09/20 15:57 07/09/20 15:57 07/09/20 15:57 07/09/20 15:57 07/09/20 15:57 Weight: 301 lb 9.478 oz Body Mass Index (BMI) 55.1 Laboratory Results 07/09/20 15:25: WBC 5.4, RBC 3.98 L, Hgb 11.0 L, Hct 35.5 L, MCV 89.2, MCH 27.6, MCHC 31.0 L, RDW Std Deviation 48.3 H, RDW Coeff of Chani 14.7 H, Plt Count 247, MPV 10.0, Immature Gran % (Auto) 0.400, Neut % (Auto) 55.6, Lymph % (Auto) 28.5, [place] % (Auto) 11.2 H, Eos % (Auto) 3.4, Baso % (Auto) 0.9, Absolute Neuts (auto) 3.0, Absolute Lymphs (auto) 1.53, Nucleated RBC % 0 07/09/20 15:25: Sodium 140, Potassium 3.7, Chloride 109 H, Carbon Dioxide 26.0, Anion Gap 5, BUN 21 H, Creatinine 0.73, Estim Creat Clear Calc 39.04, Est GFR (MDRD) Af Amer 100, Est GFR (MDRD) Non-Af 82, BUN/Creatinine Ratio 28.6 H, Glucose 72 L, Calcium 7.7 L 07/09/20 15:40: Urine Color Yellow, Urine Clarity Clear, Urine pH 6.0, Ur Specific [place] 1.015, Urine Protein Negative, Urine Glucose (UA) Normal, Urine Ketones Negative, Urine Occult Blood 25 H, Urine Nitrite Positive H, Urine Bilirubin Negative, Urine Urobilinogen Normal, Ur Leukocyte Esterase 500 H, Urine RBC 0 SEEN, Urine WBC 25-50 SEEN, Ur Squamous Epith Cells 0 SEEN, Urine Bacteria 3+, Urine Mucus 0 SEEN Assessment/Plan All Active Problems (Last Reviewed 05/25/20 @ 00:[address] Elpidio Faust MD) Cystitis (Acute) UTI (urinary tract infection) (Acute) Urinary tract infection (Acute) Abdominal pain (Resolved) The patient is a 75 y/o F from Assisted Living w/ PMHx: OA, HTN, HLD, Diabetes mellitus type II, Chronic headaches, Morbid obesity, BPH, Anxiety and Depression, GERD, Hx DVT on eliquis with IVCF placement who presents to the [facility] ED on 07/09/20 with history of recent UTI diagnosis on abx therapy which she just finished with recent eventually UCx resulted Klebsiella with ongoing dysuria, suprapubic TTP, nausea without emesis with appropriate oral intake despite presentation with fatigue and malaise without fever and chills. 1. Acute Complicated Urinary Tract Infection: Will admit to [facility] upon ED evaluation remarkable, pending UCx, continue judicious IVFs, monitor I/Os, continue IV ertapenem based on most recent cultures but may necessitate consideration VRE w/ transition as able pending sensitivities and speciation. Will request infectious disease consultation given notable prior Cx history. Bld cx x 2 obtained in the ED. 2. Hypertension: Continue home regimen including Lasix with hold parameters especially given presentation, PRN hydralazine. 3. Hyperlipidemia: Continue home statin regimen. 4. Anxiety and depression: We will continue patient home bupropion mirabegron and Cymbalta regimen. 5. BPH: We will continue patient home Flomax regimen. 6. Morbid Obesity: Weight loss and lifestyle changes encouraged, nutrition consulted. 7. GERD: We will continue patient home famotidine regimen. 8. History of DVT: Status post IVC filter placement history, will continue home Eliquis regimen. 9. History of Diabetes mellitus type II: Notes resolution following previous bypass surgery, will obtain hemoglobin A1c to be cautious, will maintain on cardiac diet but if level elevated will transition to ADA diet with Accu-Cheks and sliding scale. 10. History of ROXIE: Notes off CPAP since bypass, encouraged follow-up especially given elevated BMI. 11. Chronic severe bilateral lower extremity neuropathy: We will continue patient home gabapentin regimen. She notes she takes also the depakote for her neuropathy, denies usage of this regimen for seizure or bipolar disorder. 12. DVT prophylaxis: SCDs, continue home Eliquis regimen. 13. Code Status: Full Code. Inpatient E&M: 05343 Init Hosp L3
[2020-07-09 18:03] LABS: Magnesium 1.8 mg/dL (1.6-2.6)
[2020-07-09 18:15] LABS: Hemoglobin A1c 5.2 % (3.8-5.6)
[2020-07-09] MEDS: guaiFENesin 10 ML UDC (200MG/10ML) 20 ML PO ×2 (18:33→22:32)
[2020-07-09] MEDS: 0.9% Normal Saline 1,000 ML 100 ML IV (18:33)
[2020-07-09] MEDS: Nystatin Powder 15gm Bottle 1 APPLIC TOPICAL (22:24)
[2020-07-09] MEDS: MELATONIN 3 MG TABLET PO (22:25)
[2020-07-09] MEDS: Tamsulosin HCl 0.4 MG Capsule PO (22:26)
[2020-07-09] MEDS: Primidone 50 MG Tablet 100 MG PO (22:27)
[2020-07-09] MEDS: Pantoprazole Sodium 40 MG Tablet PO (22:27)
[2020-07-09] MEDS: Pravastatin 40 MG Tablet PO (22:27)
[2020-07-09] MEDS: Mirabegron 50 MG TAB.ER.24H PO (22:28)
[2020-07-09] MEDS: APIXABAN 5 MG TABLET PO (22:37)
[2020-07-10] MEDS: CLARIFY ORDER NOTE (01:04)
[2020-07-10 04:47] VITALS: BP 114/50; PULSE 70; RESP 16; TEMP 36.9; O2SAT 98
[2020-07-10] MEDS: 0.9% Normal Saline 1,000 ML 100 ML IV (04:47)
[2020-07-10] MEDS: Nystatin Powder 15gm Bottle 1 APPLIC TOPICAL ×3 (04:47→21:52)
[2020-07-10 06:57] LABS: Absolute Lymphocyte Count 1.26 X10^3/uL (0.83-4.51); Absolute Neutrophil Count 1.7 X10^3/uL (2.0-7.7); Basophil# 0.03 X10^3/uL; Basophil% 0.9 % (0-1); Eosinophil# 0.12 X10^3/uL; Eosinophils% 3.4 % (0-5); Hematocrit 32.1 % (37-47); Lymphocyte # 1.26 X10^3/ul (4.0); Lymphocyte % 35.9 % (19-41); Mean Corp Hgb Conc 31.2 g/dL (32-36); Mean Corpuscular Volume 89.9 fL (81-99); Mean Platelet Vol. 10.1 fl (6.2-12.0); Monocyte# 0.39 X10^3/uL; Monocyte% 11.1 % (0-10); NRBC Flagged by Analyzer 0 % (0-5); Neutrophil # 1.69 X10^3/uL (2.7-7.7); Neutrophil % 48.1 % (47-70); Platelet Count 205 K/mm3 (150-450); RBC Distribution Width CV 14.7 % (11.6-14.6); RBC Distribution Width SD 48.1 fl (35.1-43.9); Red Blood Count 3.57 M/mm3 (4.2-5.4); White Blood Count 3.5 K/mm3 (4.4-11.0)
[2020-07-10 07:26] LABS: ALB/GLOB Ratio 0.9 RATIO (0.9-2.4); AST(SGOT) 13 U/L (15-37); Alanine Aminotransfer ALT/SGPT 14 U/L (13-56); Albumin, Serum 2.5 g/dL (3.2-5.0); Alkaline Phosphatase 55 U/L (45-117); Anion Gap 6 (5-15); BUN 18 mg/dL (7-18); BUN/Creat Ratio 25.5 RATIO (10-20); Calcium,Total 7.6 mg/dL (8.5-10.1); Chloride 107 mmol/L (98-107); EST Glomerular Filtration Rate 86 mL/min (>60); Est Glom Filt Rate - Afr Amer 104 mL/min (>60); Estimated Creatinine Clearance 44.41 ml/min; Globulin 2.7 g/dL (2.2-4.2); Glucose 86 mg/dL (74-106); Potassium 4.1 mmol/L (3.5-5.1); Protein, Total 5.2 g/dL (6.4-8.2); Sodium Level 138 mmol/L (136-145)
[2020-07-10 08:12] VITALS: BP 139/67; PULSE 68; RESP 18; TEMP 36.6; O2SAT 96
[2020-07-10] MEDS: Gabapentin 400 MG Capsule PO ×3 (08:13→16:55)
[2020-07-10] MEDS: guaiFENesin 10 ML UDC (200MG/10ML) 20 ML PO ×4 (08:21→21:44)
[2020-07-10 08:27] VITALS: O2SAT 96
--- NOTE | 2020-07-10 10:19 | PN_ITS ---
Patient Problems: Active and Suspected Problems (Last Reviewed 05/25/20 @ 00:[address] Elpidio Faust MD) UTI (urinary tract infection) (Acute) Subjective: Doing well, no issues overnight. Feels better today than when she came in. Vitals/I&O's: Vital Signs Temp Pulse Resp BP Pulse Ox 97.9 F 68 18 139/67 H 96 07/10/20 08:12 07/10/20 08:12 07/10/20 08:12 07/10/20 08:12 07/10/20 08:27 Oxygen Delivery Method Room Air Weight: 297 lb 13.512 oz Body Mass Index (BMI) 49.2 Intake and Output for Last 24 Hours 07/08/20 07/09/20 07/10/20 23:59 23:59 23:59 Intake Total 1060 / 1410 2150 / 2150 Output Total 250 / 250 1200 / 1200 Balance 810 / 1160 950 / 950 General: Alert, Oriented x3, Cooperative, No apparent distress HEENT: Atraumatic, PERRLA, EOMI, Normocephalic Oral: Moist Mucosa Neck: Supple, No JVD Lungs: Clear to auscultation, Normal air movement, No rhonchi, No wheeze, No rales Cardiovascular: Regular rate, Regular Rhythm, Normal S1, Normal S2, No murmurs Abdomen: Soft, Non Tender, Non-Distended, No Hepato-splenomegaly Extremities: No edema, Capillary Refill Less than 3 Seconds Skin: No rashes, No breakdown Neurological: Neuro grossly intact, Sensory exam intact to light touch and pain Psych/Mental Status: Normal Affect, Appropriate Laboratory Results 07/09/20 15:25: WBC 5.4, RBC 3.98 L, Hgb 11.0 L, Hct 35.5 L, MCV 89.2, MCH 27.6, MCHC 31.0 L, RDW Std Deviation 48.3 H, RDW Coeff of Chani 14.7 H, Plt Count 247, MPV 10.0, Immature Gran % (Auto) 0.400, Neut % (Auto) 55.6, Lymph % (Auto) 28.5, [place] % (Auto) 11.2 H, Eos % (Auto) 3.4, Baso % (Auto) 0.9, Absolute Neuts (auto) 3.0, Absolute Lymphs (auto) 1.53, Nucleated RBC % 0 07/09/20 15:25: Sodium 140, Potassium 3.7, Chloride 109 H, Carbon Dioxide 26.0, Anion Gap 5, BUN 21 H, Creatinine 0.73, Estim Creat Clear Calc 39.04, Est GFR (MDRD) Af Amer 100, Est GFR (MDRD) Non-Af 82, BUN/Creatinine Ratio 28.6 H, Glucose 72 L, Calcium 7.7 L 07/09/20 15:25: Magnesium 1.8 07/09/20 15:25: Hemoglobin A1c 5.2 07/09/20 15:40: Urine Color Yellow, Urine Clarity Clear, Urine pH 6.0, Ur Specific [place] 1.015, Urine Protein Negative, Urine Glucose (UA) Normal, Urine Ketones Negative, Urine Occult Blood 25 H, Urine Nitrite Positive H, Urine Bilirubin Negative, Urine Urobilinogen Normal, Ur Leukocyte Esterase 500 H, Urine RBC 0 SEEN, Urine WBC 25-50 SEEN, Ur Squamous Epith Cells 0 SEEN, Urine Bacteria 3+, Urine Mucus 0 SEEN 07/10/20 06:13: WBC 3.5 L, RBC 3.57 L, Hgb 10.0 L, Hct 32.1 L, MCV 89.9, MCH 28.0, MCHC 31.2 L, RDW Std Deviation 48.1 H, RDW Coeff of Chani 14.7 H, Plt Count 205, MPV 10.1, Immature Gran % (Auto) 0.600, Neut % (Auto) 48.1, Lymph % (Auto) 35.9, [place] % (Auto) 11.1 H, Eos % (Auto) 3.4, Baso % (Auto) 0.9, Absolute Neuts (auto) 1.7 L, Absolute Lymphs (auto) 1.26, Nucleated RBC % 0 07/10/20 06:13: Sodium 138, Potassium 4.1, Chloride 107, Carbon Dioxide 25.0, Anion Gap 6, BUN 18, Creatinine 0.70, Estim Creat Clear Calc 44.41, Est GFR (MDRD) Af Amer 104, Est GFR (MDRD) Non-Af 86, BUN/Creatinine Ratio 25.5 H, Glucose 86, Calcium 7.6 L, Total Bilirubin 0.20, AST 13 L, ALT 14, Alkaline Phosphatase 55, Total Protein 5.2 L, Albumin 2.5 L, Globulin 2.7, Albumin/Globulin Ratio 0.9 Current Medications Acetaminophen (Acetaminophen 325 Mg Tablet) 650 mg PO Q6H PRN PRN PRN Reason: Pain Score 1-10/Temp > 100.7 F Hydrocodone Bitart/Acetaminophen (Hydrocodone Bitartrate/Apap 5/325 Tablet) 1 tablet PO Q12H PRN PRN Reason: Pain 1-10 or Fever Al Hydroxide/Mg Hydroxide (Mag Hydrox/Al Hydrox/Simeth 30 Ml Udc) 30 ml PO Q6H PRN PRN PRN Reason: Gastric Burning Albuterol Sulfate (Albuterol 2.5 Mg/3 Ml Vial.Neb.) 2.5 mg INHALATION Q2H PRN PRN PRN Reason: Dyspnea, wheezing Apixaban (Apixaban 5 Mg Tablet) 5 mg PO BID [facility] Last Admin: 07/09/20 22:37 Dose: 5 mg Documented by: Bupropion HCl (Bupropion (Xl) 150 Mg Tablet.Xl) 150 mg PO DAILY [facility] Cholecalciferol (Cholecalciferol (Vit D3) 1,000 Unit (25mcg)) 1,000 unit PO DAILY [facility] Duloxetine HCl (Duloxetine Hcl 60 Mg Capsule) 60 mg PO DAILY [facility] Famotidine (Famotidine 20 Mg Tablet) 20 mg PO DAILY [facility] Fluticasone Propionate (Fluticasone 0.05% 1 [place] Nasal.Sry) 2 spray NASAL DAILY [facility] Furosemide (Furosemide 40 Mg Tablet) 60 mg PO DAILY [facility] Gabapentin (Gabapentin 400 Mg Capsule) 400 mg PO TIDCM [facility] Last Admin: 07/10/20 08:13 Dose: 400 mg Documented by: Guaifenesin (Guaifenesin 10 Ml Udc (200mg/10ml)) 20 ml PO Q4H PRN PRN PRN Reason: COUGH Last Admin: 07/10/20 08:21 Dose: 20 ml Documented by: Hydralazine HCl (Hydralazine 20 Mg/Ml Vial) 10 mg IV Q4H PRN PRN PRN Reason: SBP > 160 Sodium Chloride () 1,000 mls @ 100 mls/hr IV .Q10H [facility] Last Admin: 07/10/20 04:47 Dose: 100 mls/hr Documented by: Ertapenem 1 gm/ Sodium (Chloride) 60 mls @ 100 mls/hr IV DAILY [facility] Sodium Chloride () 250 mls @ 15 mls/hr IV .[id number] PRN PRN Reason: Saline Flush Sodium Chloride () 250 mls @ 15 mls/hr IV .[id number] PRN PRN Reason: Additional IVPB Infusion Lactobacillus Acidophilus (Lactobacillus Acidophilus) 1 tablet PO DAILY [facility] Magnesium Hydroxide (Magnesium Hydroxide 30 Ml Udc) 30 ml PO DAILY PRN PRN PRN Reason: Constipation [facility] Admin: 07/09/20 22:25 Dose: 3 mg Documented by: Mirabegron (Mirabegron 50 Mg Tab.Er.24h) [facility] Last Admin: 07/09/20 22:28 Dose: 50 mg Documented by: Nitroglycerin (Nitroglycerin (Inpatient Use) 0.4 Mg Tab.Subl) 0.4 mg SUBLINGUAL Q5M PRN PRN Reason: CARDIAC/CHEST PAIN Nystatin (Nystatin Powder 15gm Bottle) 1 applic TOPICAL TID [facility]; Protocol Last Admin: 07/10/20 04:47 Dose: 1 applicatio Documented by: Ondansetron HCl (Ondansetron 4 Mg/2 Ml Vial) 4 mg IV Q8H PRN PRN PRN Reason: NAUSEA/VOMITING Pantoprazole Sodium (Pantoprazole Sodium 40 Mg Tablet) 40 mg PO BID [facility] Last Admin: 07/09/20 22:27 Dose: 40 mg Documented by: Polyethylene Glycol (Polyethylene Glycol 3350 17 Gm Packet) 17 gm PO DAILY PRN PRN Reason: Constipation Pravastatin Sodium ([facility]atin 40 Mg Tablet) [facility] Last Admin: 07/09/20 22:27 Dose: 40 mg Documented by: Primidone ([facility]idone 50 Mg Tablet) [facility] Last Admin: 07/09/20 22:27 Dose: 100 mg Documented by: Prochlorperazine Edisylate (Prochlorperazine 10 Mg/2 Ml Vial) 5 mg IV Q4H PRN PRN PRN Reason: Breakthrough nausea/vomiting Psyllium Hydrophilic Mucilloid (Psyllium 1 Packet) 1 packet PO DAILY PRN PRN PRN Reason: Constipation Senna/Docusate Sodium (Senna/Docusate Sodium 1 Tablet) 2 tablet PO BID PRN PRN PRN Reason: Constipation Simethicone (Simethicone 80 Mg Tablet) 80 mg PO TIDCM [facility] Last Admin: 07/10/20 08:13 Dose: 80 mg Documented by: Sodium Chloride (0.9% Saline Lock 10 Ml Syringe) 10 - 40 ml IV UD PRN PRN Reason: SALINE FLUSH Tamsulosin HCl (Tamsulosin Hcl 0.4 Mg Capsule) 0.4 mg PO QHS [facility] Last Admin: 07/09/20 22:26 Dose: 0.4 mg Documented by: Throat Lozenges (Benzocaine/Menthol 1 Lozenge) 1 lozenge MUCOUS MEM Q2H PRN PRN PRN Reason: SORE THROAT Tolterodine Tartrate (Tolterodine Tartrate 2 Mg Cap.Sa) 2 mg PO DAILY [facility] STROKE Vital Signs/Narrative: Vital Signs Temp Pulse Resp BP Pulse Ox 07/10/20 08:27 96 07/10/20 08:12 97.9 F 68 18 139/67 H 96 Medical Necessity - Tobacco Use Smoking Status: Never smoker Assessment/Plan All Active Problems (Last Reviewed 05/25/20 @ 00:[address] Elpidio Faust MD) Cystitis (Acute) UTI (urinary tract infection) (Acute) Urinary tract infection (Acute) Abdominal pain (Resolved) 1. Acute UTI with failed outpatient management -She initially had been started on antibiotics 5 days ago by her PCP however she continued to get worse which is why she presented to the hospital -ID consulted given that her last 2 recent UTIs in October and May 2020 were VRE with Pseudomonas and Enterobacter -She is currently on Invanz will await urine cultures -Currently afebrile 2. HTN/HLD/morbid obesity -Discussed lifestyle modifications, BMI is over 40 -We will continue with her home blood pressure medications, hold her Lasix secondary to IV fluids given her infection -We will continue with her statin 3. DM 2 with peripheral neuropathy -Continue with sliding scale insulin as well as Accu-Cheks -Adjust insulin as necessary -Hold Depakote secondary to antibiotic interaction 4. Anxiety/depression -Stable -We will continue with her home medications 5. History of DVT -She did have an IVC filter placed -Continue with Eliqu DVT: Eliquis Inpatient E&M: 69368 [facility] Hosp L2
[2020-07-10] MEDS: HYDROcodone Bitartrate/Apap 5/325 Tablet PO ×2 (10:46→22:19)
[2020-07-10] MEDS: buPROPion (XL) 150 MG TABLET.XL PO (10:47)
[2020-07-10] MEDS: Pantoprazole Sodium 40 MG Tablet PO ×2 (10:48→21:44)
[2020-07-10] MEDS: DULoxetine Hcl 60 MG Capsule PO (10:48)
[2020-07-10] MEDS: APIXABAN 5 MG TABLET PO ×2 (10:48→21:44)
[2020-07-10] MEDS: Famotidine 20 MG Tablet PO (10:50)
[2020-07-10] MEDS: Fluticasone 0.05% 1 SPRAY NASAL.SRY 2 SPRAY NASAL (10:50)
[2020-07-10] MEDS: 0.9% Normal Saline 1,000 ML 75 ML IV ×2 (11:07→16:56)
[2020-07-10] MEDS: Tolterodine Tartrate 2 MG CAP.SA PO (11:19)
--- NOTE | 2020-07-10 11:49 | CASEMGMT ---
Addendum entered by Maria E Martinez 07/10/20 13:38: RUKHSANA placed a call to Wallace at [facility]. Wallace states if pt returns without a COVID test, pt will need to be in isolation for 14 days. If pt gets COVID test and it is negative, pt doesn't need to be in isolation for 14 days. RUKHSANA in to speak with pt. SW introduced self and role at [facility]. Pt is alert and orientated. Pt confirms that she is from [facility] and plan is to return. Pt states she will need transportation at discharge. Plan: Return to [facility] once medically cleared Original Note: Social Work Note Pt is listed as being from [facility]. RUKHSANA in to speak with pt. RUKHSANA introduced self and role at [facility]. Pt confirms she is from [facility] and plan is to return. SW to fax updated clinicals. Plan: Return to [facility] once medically cleared Maria E Martinez HORSE RACING ANALYST, ERP PROJECT MANAGER
[2020-07-10] MEDS: BENZOCAINE/MENTHOL 1 LOZENGE MUCOUS MEM ×2 (13:34→18:00)
[2020-07-10 13:47] VITALS: BP 140/61; PULSE 78; RESP 18; TEMP 36.7; O2SAT 97
--- NOTE | 2020-07-10 16:04 | PCM.HP.ID ---
Problem List (1) Cystitis Status: Acute Reason for Consult: esbl uti Consulted by: Dr. Downey History of Present Illness: The patient is a 75 year old F lives at [facility], had 5-6 days of not feeling well, lower abd pain, dysuria. Dx with uti, started on keflex 07/04. [facility] Not feeling well, taken to ED 07/09. Now on erta, improving. Full ROS performed and neg except as noted above. - Medical History Past Medical History (Chronic Problems): Chronic Problems (Last Reviewed 05/25/20 @ 00:[address] Elpidio Faust MD) HTN (hypertension) (Chronic) HLD (hyperlipidemia) (Chronic) GERD (gastroesophageal reflux disease) (Chronic) Anxiety and depression (Chronic) Chronic neuropathic pain (Chronic) Unilateral primary osteoarthritis, right knee (Chronic) Chronic pain following surgery or procedure (Chronic) Morbid obesity with BMI of 45.0-49.9, adult (Chronic) ROXIE (obstructive sleep apnea) (Chronic) says she got off CPAP_ when she had gastric bypass surgery ......wieghed 248 after bypass and was up to 312 recently but, has been losing weight, unintentional. 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 (Chronic) Shortness of breath on exertion (Chronic) Allergies/Adverse Reactions: Allergies ampicillin [From Unasyn] Allergy (Severe, Verified 07/09/20 14:58) Other Blisters on tongue /throat difficulty breathing sore tongue/throat warfarin sodium [From Coumadin] Allergy (Severe, Verified 07/09/20 14:58) Low red blood cells Home Medications: Ambulatory Orders Medication Instructions Recorded Cholecalciferol (VIT D3) [Vitamin 1,000 unit PO DAILY 12/29/15 D3] Duloxetine Hcl [Cymbalta] 60 mg PO DAILY 12/29/15 Omeprazole 40 mg PO BID 07/12/18 Pravastatin [Pravachol] 40 mg PO QHS 08/05/18 Solifenacin Succinate [Vesicare] 10 mg PO DAILY 08/05/18 Apixaban [Eliquis] 5 mg PO BID 03/18/19 Fluticasone 0.05% [Flonase Nasal 2 spray NASAL DAILY 03/18/19 [place]] Furosemide [Lasix] 60 mg PO DAILY 03/18/19 Guaifenesin Dm [Robitussin Dm] 10 ml PO Q4H PRN 03/18/19 Primidone 100 mg PO QHS 03/18/19 SimETHICONE [Mylicon] 80 mg PO TIDCM 03/18/19 Lactobacillus Acidophilus 1 ea PO DAILY 09/06/19 [Acidophilus] Tamsulosin HCl [Flomax] 0.4 mg PO QHS 09/06/19 Magnesium Hydroxide [Milk Of 30 ml PO DAILY PRN PRN 09/23/19 Magnesia] Nystatin 500,000U/5ML [Mycostatin] 5 ml PO 4X/DAY PRN 09/23/19 Polyethylene Glycol 3350 [Miralax] 17 gm PO DAILY PRN 09/23/19 Bupropion HCl [Bupropion Xl] 150 mg PO DAILY 01/24/20 Hydrocodone/Acetaminophen [[place] 1 ea PO Q12H PRN 01/24/20 5-325 Tablet] Mirabegron [Myrbetriq] 50 mg PO QHS 01/24/20 Divalproex Sodium [Depakote] 500 mg PO BID 03/23/20 Famotidine [Pepcid] 20 mg PO BID 03/23/20 Melatonin 3 mg PO QHS 05/24/20 Acetaminophen [Tylenol Tablet] 650 mg PO Q6H PRN PRN tab 05/27/20 Gabapentin [Neurontin] 400 mg PO TID 07/09/20 Mag Hydrox/Aluminum Hyd/Simeth 30 ml PO Q4H PRN PRN 07/09/20 [Mag-Alum Hydroxide-Simeth Susp] Sennosides [Senna Lax] 1 - 2 tab PO DAILY PRN PRN 07/09/20 Ertapenem Sodium [Ertapenem] 1 gm IM DAILY 6 Days #6 vial 07/10/20 - Social History Tobacco Use: non-smoker Vital Signs Temp Pulse Resp BP Pulse Ox 98.0 F 78 18 140/61 H 97 01/18/21 13:47 07/10/20 13:47 07/10/20 13:47 07/10/20 13:47 07/10/20 13:47 Oxygen Delivery Method Room Air Weight: 135.1 kg Body Mass Index (BMI) 49.2 Microbiology Past 72 Hours 07/09/20 15:40 Urine Culture - Preliminary Urine Catheter - Catheter 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 Laboratory Tests Past 24 Hrs 07/09/20 07/09/20 07/09/20 15:25 15:25 15:40 WBC RBC Hgb Hct MCV MCH MCHC RDW Std Deviation RDW Coeff of Chani Plt Count MPV Immature Gran % (Auto) Neut % (Auto) Lymph % (Auto) [place] % (Auto) Eos % (Auto) Baso % (Auto) Absolute Neuts (auto) Absolute Lymphs (auto) Nucleated RBC % Sodium Potassium Chloride Carbon Dioxide Anion Gap BUN Creatinine Estim Creat Clear Calc Est GFR (MDRD) Af Amer Est GFR (MDRD) Non-Af BUN/Creatinine Ratio Glucose Hemoglobin A1c 5.2 Calcium Magnesium 1.8 Total Bilirubin AST ALT Alkaline Phosphatase Total Protein Albumin Globulin Albumin/Globulin Ratio Urine Color Yellow Urine Clarity Clear Urine pH 6.0 Ur Specific [place] 1.015 Urine Protein Negative Urine Glucose (UA) Normal Urine Ketones Negative Urine Occult Blood 25 H Urine Nitrite Positive H Urine Bilirubin Negative Urine Urobilinogen Normal Ur Leukocyte Esterase 500 H Urine RBC 0 SEEN Urine WBC 25-50 SEEN Ur Squamous Epith Cells 0 SEEN Urine Bacteria 3+ Urine Mucus 0 SEEN 07/10/20 07/10/20 06:13 06:13 WBC 3.5 L RBC 3.57 L Hgb 10.0 L Hct 32.1 L MCV 89.9 MCH 28.0 MCHC 31.2 L RDW Std Deviation 48.1 H RDW Coeff of Chani 14.7 H Plt Count 205 MPV 10.1 Immature Gran % (Auto) 0.600 Neut % (Auto) 48.1 Lymph % (Auto) 35.9 [place] % (Auto) 11.1 H Eos % (Auto) 3.4 Baso % (Auto) 0.9 Absolute Neuts (auto) 1.7 L Absolute Lymphs (auto) 1.26 Nucleated RBC % 0 Sodium 138 Potassium 4.1 Chloride 107 Carbon Dioxide 25.0 Anion Gap 6 BUN 18 Creatinine 0.70 Estim Creat Clear Calc 44.41 Est GFR (MDRD) Af Amer 104 Est GFR (MDRD) Non-Af 86 BUN/Creatinine Ratio 25.5 H Glucose 86 Hemoglobin A1c Calcium 7.6 L Magnesium Total Bilirubin 0.20 AST 13 L ALT 14 Alkaline Phosphatase 55 Total Protein 5.2 L Albumin 2.5 L Globulin 2.7 Albumin/Globulin Ratio 0.9 Urine Color Urine Clarity Urine pH Ur Specific [place] Urine Protein Urine Glucose (UA) Urine Ketones Urine Occult Blood Urine Nitrite Urine Bilirubin Urine Urobilinogen Ur Leukocyte Esterase Urine RBC Urine WBC Ur Squamous Epith Cells Urine Bacteria Urine Mucus - Other Studies Radiology: [] reviewed Other Studies: [] Route of nutrition/ use of supplements: [] Nutritional Intake: [] IV Site: [] Adler Catheter: [] - Physical Exam General: Alert, Oriented x3, Cooperative, No apparent distress HEENT: Atraumatic, PERRLA, EOMI Neck: Supple, No Nodes Lungs: Clear to auscultation, Normal air movement Cardiovascular: Regular rate, Regular Rhythm Abdomen: Soft, Non Tender, Non-Distended Extremities: No edema Skin: No rashes Musculoskeletal: No Tenderness to Palpation of Joints or Extremities Neurological: Cranial nerves II-XII grossly intact - Assessment/Plan Antibiotics: [] Assessment/Plan: [] Active and Suspected Problems (Last Reviewed 05/25/20 @ 00:[address] Elpidio Faust MD) UTI (urinary tract infection) (Acute) esbl k.pneumo uti - on erta, sx improving, reviewed cx from [facility]. Ok to return to [facility]CF with 6 more days of IM erta. Wrote rx. Will follow, thank you
[2020-07-10 21:41] VITALS: BP 134/65; PULSE 89; RESP 18; TEMP 36.8; O2SAT 95
[2020-07-10] MEDS: Primidone 50 MG Tablet 100 MG PO (21:43)
[2020-07-10] MEDS: MELATONIN 3 MG TABLET PO (21:44)
[2020-07-10] MEDS: Psyllium 1 PACKET PO (21:44)
[2020-07-10] MEDS: Tamsulosin HCl 0.4 MG Capsule PO (21:44)
[2020-07-10] MEDS: Pravastatin 40 MG Tablet PO (21:44)
[2020-07-10] MEDS: Mirabegron 50 MG TAB.ER.24H PO (21:44)
[2020-07-11 03:50] VITALS: BP 115/56; PULSE 70; RESP 16; TEMP 36.5; O2SAT 94
[2020-07-11] MEDS: 0.9% Normal Saline 1,000 ML 75 ML IV (05:13)
[2020-07-11] MEDS: Nystatin Powder 15gm Bottle 1 APPLIC TOPICAL ×2 (05:14→14:17)
[2020-07-11 05:51] LABS: Absolute Lymphocyte Count 1.54 X10^3/uL (0.83-4.51); Absolute Neutrophil Count 1.6 X10^3/uL (2.0-7.7); Basophil# 0.05 X10^3/uL; Basophil% 1.4 % (0-1); Eosinophil# 0.12 X10^3/uL; Eosinophils% 3.3 % (0-5); Hematocrit 33.5 % (37-47); Lymphocyte # 1.54 X10^3/ul (4.0); Lymphocyte % 42.3 % (19-41); Mean Corp Hgb Conc 29.9 g/dL (32-36); Mean Corpuscular Hgb 27.1 pg (27.0-32.0); Mean Corpuscular Volume 90.8 fL (81-99); Mean Platelet Vol. 9.9 fl (6.2-12.0); Monocyte# 0.34 X10^3/uL; Monocyte% 9.3 % (0-10); NRBC Flagged by Analyzer 0 % (0-5); Neutrophil # 1.59 X10^3/uL (2.7-7.7); Neutrophil % 43.7 % (47-70); Platelet Count 185 K/mm3 (150-450); RBC Distribution Width CV 14.6 % (11.6-14.6); RBC Distribution Width SD 49.1 fl (35.1-43.9); Red Blood Count 3.69 M/mm3 (4.2-5.4); White Blood Count 3.6 K/mm3 (4.4-11.0)
[2020-07-11 06:11] LABS: Anion Gap 3 (5-15); BUN 19 mg/dL (7-18); BUN/Creat Ratio 29.7 RATIO (10-20); Calcium,Total 7.7 mg/dL (8.5-10.1); Chloride 110 mmol/L (98-107); Creatinine, Serum 0.64 mg/dL (0.55-1.02); EST Glomerular Filtration Rate 97 mL/min (>60); Est Glom Filt Rate - Afr Amer 117 mL/min (>60); Estimated Creatinine Clearance 44.41 ml/min; Glucose 87 mg/dL (74-106); Potassium 4.5 mmol/L (3.5-5.1); Sodium Level 139 mmol/L (136-145)
[2020-07-11] MEDS: guaiFENesin 10 ML UDC (200MG/10ML) 20 ML PO ×2 (09:12→14:40)
[2020-07-11] MEDS: Pantoprazole Sodium 40 MG Tablet PO (09:12)
[2020-07-11] MEDS: Famotidine 20 MG Tablet PO (09:12)
[2020-07-11] MEDS: Tolterodine Tartrate 2 MG CAP.SA PO (09:12)
[2020-07-11] MEDS: buPROPion (XL) 150 MG TABLET.XL PO (09:12)
[2020-07-11] MEDS: DULoxetine Hcl 60 MG Capsule PO (09:13)
[2020-07-11] MEDS: APIXABAN 5 MG TABLET PO (09:13)
[2020-07-11] MEDS: BENZOCAINE/MENTHOL 1 LOZENGE MUCOUS MEM ×2 (09:13→14:40)
[2020-07-11] MEDS: Gabapentin 400 MG Capsule PO ×2 (09:13→11:58)
[2020-07-11] MEDS: Fluticasone 0.05% 1 SPRAY NASAL.SRY 2 SPRAY NASAL (09:14)
[2020-07-11 09:50] VITALS: BP 121/52; PULSE 76; RESP 18; TEMP 36.4; O2SAT 96
--- NOTE | 2020-07-11 10:02 | CASEMGMT ---
Addendum entered by Maria E Martinez 07/11/20 10:32: SW received message from Wallace at [facility] stating they are able to do IM, not IV on INTERMEDIATE side. Pt is able to return to [facility] with IM Ertapenem. Original Note: Social Work Note Pt will be on six days of IM Ertapenem. SW placed a call to Wallace at [facility] and left message asking if pt is able to return to INTERMEDIATE side, if pt could do outpatient at infusion clinic for six days, or if pt needs to admit to SNF side. SW waiting for call back. Maria E Martinez DIAGNOSTIC TECHNOLOGIST, BANQU[employer] SERVER ON CALL
--- NOTE | 2020-07-11 11:18 | PCM.DC ---
- Discharge Diagnoses Current Active Problems: Current Active and Chronic Problems (Last Reviewed 05/25/20 @ 01:[address] Elpidio Faust MD) Cystitis (Acute) HTN (hypertension) (Chronic) HLD (hyperlipidemia) (Chronic) GERD (gastroesophageal reflux disease) (Chronic) Anxiety and depression (Chronic) Chronic neuropathic pain (Chronic) Morbid obesity with BMI of 45.0-49.9, adult (Chronic) ROXIE (obstructive sleep apnea) (Chronic) says she got off CPAP_ when she had gastric bypass surgery ......wieghed 248 after bypass and was up to 312 recently but, has been losing weight, unintentional. DM II (diabetes mellitus, type II), controlled (Chronic) states this was cured with the gastric bypass surgery UTI (urinary tract infection) (Acute) History of DVT (deep vein thrombosis) (Chronic) recurrent History of gastric bypass (Chronic) You will use the following diet at home:: Calorie/Carbohydrate Controlled (specify 1200, 1400, etc), Cardiac Your food should be the consistency of: Regular Your liquids should be the consistency of: Regular/Thin Discharge Activity: Return to Normal Activity Call your doctor if you observe: Fever of 101 or Higher, Shortness of breath, Dizziness, Fainting spells, Swelling in the ankles, Chest pain, Increased palpitations (irregular heartbeat) Allergies/Adverse Reactions: Allergies ampicillin [From Unasyn] Allergy (Severe, Verified 07/09/20 14:58) Other Blisters on tongue /throat difficulty breathing sore tongue/throat warfarin sodium [From Coumadin] Allergy (Severe, Verified 07/09/20 14:58) Low red blood cells Medications to take at Discharge Cholecalciferol (VIT D3) [Vitamin D3] 1,000 unit PO DAILY 12/29/15 Duloxetine Hcl [Cymbalta] 60 mg PO DAILY 12/29/15 Omeprazole 40 mg PO BID 01/01/18 Pravastatin [Pravachol] 40 mg PO QHS 08/05/18 Solifenacin Succinate [Vesicare] 10 mg PO DAILY 08/05/18 Apixaban [Eliquis] 5 mg PO BID 03/18/19 Fluticasone 0.05% [Flonase Nasal [place]] 2 spray NASAL DAILY 03/18/19 Furosemide [Lasix] 60 mg PO DAILY 03/18/19 Guaifenesin Dm [Robitussin Dm] 10 ml PO Q4H PRN 03/18/19 Primidone 100 mg PO QHS 03/18/19 SimETHICONE [Mylicon] 80 mg PO TIDCM 03/18/19 Lactobacillus Acidophilus [Acidophilus] 1 ea PO DAILY 09/06/19 Tamsulosin HCl [Flomax] 0.4 mg PO QHS 09/06/19 Magnesium Hydroxide [Milk Of Magnesia] 30 ml PO DAILY PRN PRN 09/23/19 Nystatin 500,000U/5ML [Mycostatin] 5 ml PO 4X/DAY PRN 09/23/19 Polyethylene Glycol 3350 [Miralax] 17 gm PO DAILY PRN 09/23/19 Bupropion HCl [Bupropion Xl] 150 mg PO DAILY 01/24/20 Hydrocodone/Acetaminophen [[place] 5-325 Tablet] 1 ea PO Q12H PRN 01/24/20 Mirabegron [Myrbetriq] 50 mg PO QHS 01/24/20 Famotidine [Pepcid] 20 mg PO BID 03/23/20 Melatonin 3 mg PO QHS 05/24/20 Acetaminophen [Tylenol Tablet] 650 mg PO Q6H PRN PRN tab 05/27/20 Gabapentin [Neurontin] 400 mg PO TID 07/09/20 Mag Hydrox/Aluminum Hyd/Simeth [Alum-Mag Hydroxide-Simeth Susp] 30 ml PO Q4H PRN PRN 07/09/20 Sennosides [Senna Lax] 1 - 2 tab PO DAILY PRN PRN 07/09/20 Ertapenem Sodium [Ertapenem] 1 gm IM DAILY 6 Days #6 vial 07/10/20 Divalproex Sodium [Depakote] 500 mg PO BID #0 07/11/20 The following prescriptions were given: Ertapenem Sodium [Ertapenem] 1 gm IM DAILY 6 Days #6 vial Prescription Printed Primary Care Physician: Gonzales Pinto MD [Primary Care Provider] - Please follow up with your Primary Care Physician in: 3-5 days Test Results: Test results from this visit will be discussed in further detail at your follow-up appointment, if applicable.
--- NOTE | 2020-07-11 12:11 | PHA.DC.MR ---
Pharmacy Service has performed discharge medication reconciliation for this patient. The patient's discharge medication list was reviewed for discrepancies and discrepancies were resolved. Home Medications Cholecalciferol (VIT D3) [Vitamin D3] 1,000 unit PO DAILY 12/29/15 Duloxetine Hcl [Cymbalta] 60 mg PO DAILY 12/29/15 Omeprazole 40 mg PO BID 01/01/18 Pravastatin [Pravachol] 40 mg PO QHS 08/05/18 Solifenacin Succinate [Vesicare] 10 mg PO DAILY 08/05/18 Apixaban [Eliquis] 5 mg PO BID 03/18/19 Fluticasone 0.05% [Flonase Nasal [place]] 2 spray NASAL DAILY 03/18/19 Furosemide [Lasix] 60 mg PO DAILY 03/18/19 Guaifenesin Dm [Robitussin Dm] 10 ml PO Q4H PRN 03/18/19 Primidone 100 mg PO QHS 03/18/19 SimETHICONE [Mylicon] 80 mg PO TIDCM 03/18/19 Lactobacillus Acidophilus [Acidophilus] 1 ea PO DAILY 09/06/19 Tamsulosin HCl [Flomax] 0.4 mg PO QHS 09/06/19 Magnesium Hydroxide [Milk Of Magnesia] 30 ml PO DAILY PRN PRN 09/23/19 Nystatin 500,000U/5ML [Mycostatin] 5 ml PO 4X/DAY PRN 09/23/19 Polyethylene Glycol 3350 [Miralax] 17 gm PO DAILY PRN 09/23/19 Bupropion HCl [Bupropion Xl] 150 mg PO DAILY 01/24/20 Hydrocodone/Acetaminophen [[place] 5-325 Tablet] 1 ea PO Q12H PRN 01/24/20 Mirabegron [Myrbetriq] 50 mg PO QHS 01/24/20 Famotidine [Pepcid] 20 mg PO BID 03/23/20 Melatonin 3 mg PO QHS 05/24/20 Acetaminophen [Tylenol Tablet] 650 mg PO Q6H PRN PRN tab 05/27/20 Gabapentin [Neurontin] 400 mg PO TID 07/09/20 Mag Hydrox/Aluminum Hyd/Simeth [Alum-Mag Hydroxide-Simeth Susp] 30 ml PO Q4H PRN PRN 07/09/20 Sennosides [Senna Lax] 1 - 2 tab PO DAILY PRN PRN 07/09/20 Ertapenem Sodium [Ertapenem] 1 gm IM DAILY 6 Days #6 vial 07/10/20 Divalproex Sodium [Depakote] 500 mg PO BID #0 07/11/20
--- NOTE | 2020-07-11 13:33 | CASEMGMT ---
Addendum entered by Maria E Martinez 07/11/20 14:23: SW asked pt if this worker can call pt's family to update on discharge, pt states she has already talked to her daughter and her daughter is aware pt will be returning to [facility] today. Original Note: Social Work Note Pt is able to discharge to [facility] today. RUKHSANA placed a call to Wallace at [facility]. Wallace again confirms pt is able to return to [facility] with IM Ertapenem, states nothing has to be set up. RUKHSANA updated Wallace that pt will be discharged today. RUKHSANA spoke with RN, pt is able to transport via wheelchair van. RUKHSANA accessed trip assist and arranged transportation via wheelchair van for 3:00pm. Transportation form completed and placed on SNF folder and copy on pt's chart. RUKHSANA faxed discharge paperwork to [facility] including discharge instructions, negative COVID test, COVID screening tool and script for IM Ertapenem. Original in SNF folder and copy on pt's chart. RUKHSANA updated RN on transportation time. RUKHSANA placed a call to [facility] and left message for Wallace letting him know transportation time. SW updated pt. Plan: Return to [facility] today [facility] transporting pt at 3:00pm via wheelchair van. Maria E Martinez SPECIAL EDUCATION CASE MANAGER, NANNY/HOUSEHOLD MANAGER
[2020-07-11] MEDS: Acetaminophen 325 MG Tablet 650 MG PO (14:15)
[2020-07-11 14:32] VITALS: BP 147/70; PULSE 78; RESP 18; TEMP 36.5; O2SAT 98
--- NOTE | 2020-07-11 14:57 | PCM.DC.SUM ---
Discharge Date and Diagnosis - Problem List Patient Problems: Active and Suspected Problems (Last Reviewed 05/25/20 @ 00:[address] Elpidio Faust MD) Cystitis (Acute) UTI (urinary tract infection) (Acute) Date of Admission: 07/09/20 Date of Discharge: 07/11/20 - Primary Discharge Diagnosis Acute Problems: Active Problems (Last Reviewed 05/25/20 @ 00:[address] Elpidio Faust MD) Cystitis (Acute) UTI (urinary tract infection) (Acute) - Secondary Discharge Diagnosis Chronic Problems: Chronic Problems (Last Reviewed 05/25/20 @ 00:[address] Elpidio Faust MD) HTN (hypertension) (Chronic) HLD (hyperlipidemia) (Chronic) GERD (gastroesophageal reflux disease) (Chronic) Anxiety and depression (Chronic) Chronic neuropathic pain (Chronic) Unilateral primary osteoarthritis, right knee (Chronic) Chronic pain following surgery or procedure (Chronic) Morbid obesity with BMI of 45.0-49.9, adult (Chronic) ROXIE (obstructive sleep apnea) (Chronic) says she got off CPAP_ when she had gastric bypass surgery ......wieghed 248 after bypass and was up to 312 recently but, has been losing weight, unintentional. 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 (Chronic) Shortness of breath on exertion (Chronic) Hospital Course and Treatment Consults: ID Operations: None Procedures: None Summary of Care Provided: Per HPI: The patient is a 75 y/o F from Assisted Living w/ PMHx: OA, HTN, HLD, Diabetes mellitus type II, Chronic headaches, Morbid obesity, BPH, Anxiety and Depression, GERD, Hx DVT on eliquis with IVCF placement who presents to the [facility] ED on 07/09/20 with history of recent UTI diagnosis on abx therapy which she just finished (Keflex per facility records) with recent eventually UCx resulted Klebsiella with ongoing dysuria, suprapubic TTP, nausea without emesis with appropriate oral intake despite presentation with fatigue and malaise without fever and chills. She describes lower abdominal discomfort as a dull aching, cramping and notes it is mild to moderate in nature. Work-up in the ED included T 97, heart rate 85, BP 130/42, respiratory rate 19, 99% on room air, CBC with WC 5.4, hemoglobin 11, platelet 247 without shift, BMP with chloride 109, BUN/creatinine 21/0.73, glucose 72, urinalysis concerning for urinary tract infection, urine culture pending per ED. in the ED patient ministered Zofran, normal saline and phenazopyridine. Most recent urine cultures with noted 05/24/2020 Enterobacter resistant to Ancef, and sensitive to ertapenem and nitrofurantoin as well as resistant to Zosyn in addition to 10/28/2019 urine culture with Pseudomonas and VRE. Current culture from [facility] with Klebsiella pneumoniae ESBL. Hospital Course: 1. Acute UTI with failed outpatient management -She initially had been started on antibiotics 5 days ago by her PCP however she continued to get worse which is why she presented to the hospital -ID consulted given that her last 2 recent UTIs in October and May 2020 were VRE with Pseudomonas and Enterobacter -She is currently on Invanz which she will continue as she has an ESBL Klebsiella pneumonia. She will continue 6 days of IM injections at her assisted living. -Currently afebrile -Discussed with her the plan for discharge today and she expressed understanding of the risk and benefits of going home to the assisted living and she would like to go back to the assisted living 2. HTN/HLD/morbid obesity -Discussed lifestyle modifications, BMI is over 40 -We will continue with her home blood pressure medications, hold her Lasix secondary to IV fluids given her infection -We will continue with her statin 3. DM 2 with peripheral neuropathy -Continue with sliding scale insulin as well as Accu-Cheks -Adjust insulin as necessary -Hold Depakote secondary to antibiotic interaction, when she discontinues the Invanz, she can resume her Depakote 4. Anxiety/depression -Stable -We will continue with her home medications 5. History of DVT -She did have an IVC filter placed -Continue with Eliquis Patient Problems: Active and Suspected Problems (Last Reviewed 05/25/20 @ 00:[address] Elpidio Faust MD) Cystitis (Acute) UTI (urinary tract infection) (Acute) - Physical Exam Vitals/I&O's: Vital Signs Temp Pulse Resp BP Pulse Ox 97.7 F L 78 18 147/70 H 98 07/11/20 14:32 07/11/20 14:32 07/11/20 14:32 07/11/20 14:32 07/11/20 14:32 Oxygen Delivery Method Room Air Weight: 309 lb 11.991 oz Body Mass Index (BMI) 49.2 Intake and Output for Last 24 Hours 07/09/20 07/10/20 07/11/20 23:59 23:59 23:59 Intake Total 1060 / 1410 4179.58 / 4479.58 2508.75 / 2508.75 Output Total 250 / 250 1500 / 1700 950 / 950 Balance 810 / 1160 2679.58 / 2779.58 1558.75 / 1558.75 General: Alert, Oriented x3, Cooperative, No apparent distress HEENT: Atraumatic, PERRLA, EOMI, Normocephalic Oral: Moist Mucosa Neck: Supple, No JVD Lungs: Clear to auscultation, Normal air movement, No rhonchi, No wheeze, No rales Cardiovascular: Regular rate, Regular Rhythm, Normal S1, Normal S2, No murmurs Abdomen: Soft, Non Tender, Non-Distended, No Hepato-splenomegaly Extremities: No edema, Capillary Refill Less than 3 Seconds Skin: No rashes, No breakdown Neurological: Neuro grossly intact, Sensory exam intact to light touch and pain Psych/Mental Status: Normal Affect, Appropriate Microbiology Past 72 Hours 07/11/20 12:12 Mucosa - Nose SARS-CoV-2 Antigen (Rapid) - Final 07/09/20 15:40 Urine Catheter - Catheter Urine Culture - Preliminary Klebsiella pneumoniae sp pneum Laboratory Results 07/11/20 05:34: WBC 3.6 L, RBC 3.69 L, Hgb 10.0 L, Hct 33.5 L, MCV 90.8, MCH 27.1, MCHC 29.9 L, RDW Std Deviation 49.1 H, RDW Coeff of Chani 14.6, Plt Count 185, MPV 9.9, Immature Gran % (Auto) 0.000, Neut % (Auto) 43.7 L, Lymph % (Auto) 42.3 H, [place] % (Auto) 9.3, Eos % (Auto) 3.3, Baso % (Auto) 1.4 H, Absolute Neuts (auto) 1.6 L, Absolute Lymphs (auto) 1.54, Nucleated RBC % 0 07/11/20 05:34: Sodium 139, Potassium 4.5, Chloride 110 H, Carbon Dioxide 26.0, Anion Gap 3 L, BUN 19 H, Creatinine 0.64, Estim Creat Clear Calc 44.41, Est GFR (MDRD) Af Amer 117, Est GFR (MDRD) Non-Af 97, BUN/Creatinine Ratio 29.7 H, Glucose 87, Calcium 7.7 L Current Medications Acetaminophen (Acetaminophen 325 Mg Tablet) 650 mg PO Q6H PRN PRN PRN Reason: Pain Score 1-10/Temp > 100.7 F Last Admin: 07/11/20 14:15 Dose: 650 mg Documented by: Hydrocodone Bitart/Acetaminophen (Hydrocodone Bitartrate/Apap 5/325 Tablet) 1 tablet PO Q12H PRN PRN Reason: Pain 1-10 or Fever Last Admin: 07/10/20 22:19 Dose: 1 tablet Documented by: Al Hydroxide/Mg Hydroxide (Mag Hydrox/Al Hydrox/Simeth 30 Ml Udc) 30 ml PO Q6H PRN PRN PRN Reason: Gastric Burning Albuterol Sulfate (Albuterol 2.5 Mg/3 Ml Vial.Neb.) 2.5 mg INHALATION Q2H PRN PRN PRN Reason: Dyspnea, wheezing Apixaban (Apixaban 5 Mg Tablet) 5 mg PO BID [facility] Last Admin: 07/11/20 09:13 Dose: 5 mg Documented by: Bupropion HCl (Bupropion (Xl) 150 Mg Tablet.Xl) 150 mg PO DAILY [facility] Last Admin: 07/11/20 09:12 Dose: 150 mg Documented by: Cholecalciferol (Cholecalciferol (Vit D3) 1,000 Unit (25mcg)) 1,000 unit PO DAILY [facility] Last Admin: 07/11/20 09:12 Dose: 1,000 unit Documented by: Duloxetine HCl (Duloxetine Hcl 60 Mg Capsule) 60 mg PO DAILY [facility] Last Admin: 07/11/20 09:13 Dose: 60 mg Documented by: Famotidine (Famotidine 20 Mg Tablet) 20 mg PO DAILY [facility] Last Admin: 07/11/20 09:12 Dose: 20 mg Documented by: Fluticasone Propionate (Fluticasone 0.05% 1 [place] Nasal.Sry) 2 spray NASAL DAILY [facility] Last Admin: 07/11/20 09:14 Dose: 2 spray Documented by: Gabapentin (Gabapentin 400 Mg Capsule) 400 mg PO TIDCM [facility] Last Admin: 07/11/20 11:58 Dose: 400 mg Documented by: Guaifenesin (Guaifenesin 10 Ml Udc (200mg/10ml)) 20 ml PO Q4H PRN PRN PRN Reason: COUGH Last Admin: 07/11/20 14:40 Dose: 20 ml Documented by: Hydralazine HCl (Hydralazine 20 Mg/Ml Vial) 10 mg IV Q4H PRN PRN PRN Reason: SBP > 160 Sodium Chloride () 1,000 mls @ 75 mls/hr IV .[id number] [facility] Last Infusion: 07/11/20 14:15 Dose: Infused Documented by: Sodium Chloride () 250 mls @ 15 mls/hr IV .[id number] PRN PRN Reason: Saline Flush Sodium Chloride () 250 mls @ 15 mls/hr IV .[id number] PRN PRN Reason: Additional IVPB Infusion Lactobacillus Acidophilus (Lactobacillus Acidophilus) 1 tablet PO DAILY [facility] Last Admin: 07/11/20 09:13 Dose: 1 tablet Documented by: Magnesium Hydroxide (Magnesium Hydroxide 30 Ml Udc) 30 ml PO DAILY PRN PRN PRN Reason: Constipation Melatonin (Melatonin 3 Mg Tablet) 3 mg PO QHS [facility] Last Admin: 07/10/20 21:44 Dose: 3 mg Documented by: Mirabegron (Mirabegron 50 Mg Tab.Er.24h) 50 mg PO QHS [facility] Last Admin: 07/10/20 21:44 Dose: 50 mg Documented by: Nitroglycerin (Nitroglycerin (Inpatient Use) 0.4 Mg Tab.Subl) 0.4 mg SUBLINGUAL Q5M PRN PRN Reason: CARDIAC/CHEST PAIN Nystatin (Nystatin Powder 15gm Bottle) 1 applic TOPICAL TID [facility]; Protocol Last Admin: 07/11/20 14:17 Dose: 1 applicatio Documented by: Ondansetron HCl (Ondansetron 4 Mg/2 Ml Vial) 4 mg IV Q8H PRN PRN PRN Reason: NAUSEA/VOMITING Pantoprazole Sodium (Pantoprazole Sodium 40 Mg Tablet) 40 mg PO BID [facility] Last Admin: 07/11/20 09:12 Dose: 40 mg Documented by: Polyethylene Glycol (Polyethylene Glycol 3350 17 Gm Packet) 17 gm PO DAILY PRN PRN Reason: Constipation Pravastatin Sodium (Pravastatin 40 Mg Tablet) 40 mg PO QHS [facility] Last Admin: 07/10/20 21:44 Dose: 40 mg Documented by: Primidone (Primidone 50 Mg Tablet) 100 mg PO QHS [facility] Last Admin: 07/10/20 21:43 Dose: 100 mg Documented by: Prochlorperazine Edisylate (Prochlorperazine 10 Mg/2 Ml Vial) 5 mg IV Q4H PRN PRN PRN Reason: Breakthrough nausea/vomiting Psyllium Hydrophilic Mucilloid (Psyllium 1 Packet) 1 packet PO DAILY PRN PRN PRN Reason: Constipation Last Admin: 07/10/20 21:44 Dose: 1 packet Documented by: Senna/Docusate Sodium (Senna/Docusate Sodium 1 Tablet) 2 tablet PO BID PRN PRN PRN Reason: Constipation Simethicone (Simethicone 80 Mg Tablet) 80 mg PO TIDCM [facility] Last Admin: 07/11/20 11:58 Dose: 80 mg Documented by: Sodium Chloride (0.9% Saline Lock 10 Ml Syringe) 10 - 40 ml IV UD PRN PRN Reason: SALINE FLUSH Tamsulosin HCl (Tamsulosin Hcl 0.4 Mg Capsule) 0.4 mg PO QHS [facility] Last Admin: 07/10/20 21:44 Dose: 0.4 mg Documented by: Throat Lozenges (Benzocaine/Menthol 1 Lozenge) 1 lozenge MUCOUS MEM Q2H PRN PRN PRN Reason: SORE THROAT Last Admin: 07/11/20 14:40 Dose: 1 lozenge Documented by: Tolterodine Tartrate (Tolterodine Tartrate 2 Mg Cap.Sa) 2 mg PO DAILY [facility] Last Admin: 07/11/20 09:12 Dose: 2 mg Documented by: Discharge Activity: Return to Normal Activity Call your doctor if you observe: Fever of 101 or Higher, Shortness of breath, Dizziness, Fainting spells, Swelling in the ankles, Chest pain, Increased palpitations (irregular heartbeat) Home Medications: Medications to take at Discharge Cholecalciferol (VIT D3) [Vitamin D3] 1,000 unit PO DAILY 12/29/15 Duloxetine Hcl [Cymbalta] 60 mg PO DAILY 12/29/15 Omeprazole 40 mg PO BID 01/01/18 Pravastatin [Pravachol] 40 mg PO QHS 08/05/18 Solifenacin Succinate [Vesicare] 10 mg PO DAILY 08/05/18 Apixaban [Eliquis] 5 mg PO BID 03/18/19 Fluticasone 0.05% [Flonase Nasal [place]] 2 spray NASAL DAILY 03/18/19 Furosemide [Lasix] 60 mg PO DAILY 03/18/19 Guaifenesin Dm [Robitussin Dm] 10 ml PO Q4H PRN 03/18/19 Primidone 100 mg PO QHS 03/18/19 SimETHICONE [Mylicon] 80 mg PO TIDCM 03/18/19 Lactobacillus Acidophilus [Acidophilus] 1 ea PO DAILY 09/06/19 Tamsulosin HCl [Flomax] 0.4 mg PO QHS 09/06/19 Magnesium Hydroxide [Milk Of Magnesia] 30 ml PO DAILY PRN PRN 09/23/19 Nystatin 500,000U/5ML [Mycostatin] 5 ml PO 4X/DAY PRN 09/23/19 Polyethylene Glycol 3350 [Miralax] 17 gm PO DAILY PRN 09/23/19 Bupropion HCl [Bupropion Xl] 150 mg PO DAILY 01/24/20 Hydrocodone/Acetaminophen [[place] 5-325 Tablet] 1 ea PO Q12H PRN 01/24/20 Mirabegron [Myrbetriq] 50 mg PO QHS 01/24/20 Famotidine [Pepcid] 20 mg PO BID 03/23/20 Melatonin 3 mg PO QHS 05/24/20 Acetaminophen [Tylenol Tablet] 650 mg PO Q6H PRN PRN tab 05/27/20 Gabapentin [Neurontin] 400 mg PO TID 07/09/20 Mag Hydrox/Aluminum Hyd/Simeth [Alum-Mag Hydroxide-Simeth Susp] 30 ml PO Q4H PRN PRN 07/09/20 Sennosides [Senna Lax] 1 - 2 tab PO DAILY PRN PRN 07/09/20 Ertapenem Sodium [Ertapenem] 1 gm IM DAILY 6 Days #6 vial 07/10/20 Divalproex Sodium [Depakote] 500 mg PO BID #0 07/11/20 Following Prescriptions Were Given to Patient: Ertapenem Sodium [Ertapenem] 1 gm IM DAILY 6 Days #6 vial Prescription Printed Primary Care Physician: Gonzales Pinto MD [Primary Care Provider] - Please follow up with your Primary Care Physician in: 3-5 days Disposition: Asstd Living/Non-[facility] Minutes spent on discharge:: 35 Patient Condition:: Stable Medical Necessity - Tobacco Use Smoking Status: Never smoker Meaningful Use Info Meaningful Use Diagnoses (Choose all that apply): None applicable Inpatient E&M: 34900 Disch Hosp
== END 2020-07-11 15:17 | disposition home or self-care (01) | DRG 689 ==
LOC: ED 15:55 → MS3 17:09
PROVIDERS: Admitting Provider Family Medicine; Emergency Provider Student in an Organized Health Care Education/Training Program; PCP Family Medicine; Visit Provider Family Medicine
DX: N30.00 Acute cystitis without hematuria (principal); J15.0 Pneumonia due to Klebsiella pneumoniae; Z16.12 Extended spectrum beta lactamase (ESBL) resistance; Z68.43 Body mass index [BMI] 50.0-59.9, adult; G47.33 Obstructive sleep apnea (adult) (pediatric); E78.5 Hyperlipidemia, unspecified; I10 Essential (primary) hypertension; K21.9 Gastro-esophageal reflux disease without esophagitis; F32.9 Major depressive disorder, single episode, unspecified; G57.93 Unspecified mononeuropathy of bilateral lower limbs; E11.42 Type 2 diabetes mellitus with diabetic polyneuropathy; F41.9 Anxiety disorder, unspecified; E66.01 Morbid (severe) obesity due to excess calories; Z79.01 Long term (current) use of anticoagulants; Z79.4 Long term (current) use of insulin; Z82.49 Family history of ischemic heart disease and other diseases of the circulatory system; Z86.718 Personal history of other venous thrombosis and embolism; Z90.710 Acquired absence of both cervix and uterus; Z95.828 Presence of other vascular implants and grafts; Z96.659 Presence of unspecified artificial knee joint; Z98.84 Bariatric surgery status; B96.1 Klebsiella pneumoniae [K. pneumoniae] as the cause of diseases classified elsewhere
CPT/HCPCS: 80048; 80053; 81001; 83036; 83735; 85025; 87077; 87086; 87088; 87186; 87426; 97110; 97116; 97162; 97166; 97530; 97802; 99285; J7030; J7050; J2405

== ENCOUNTER 2020-08-09 15:28 | Inpatient (IN) | payer MEDICARE, MEDICAID, SELFPAY ==
[2020-07-09 17:43] VITALS: BMI 49.2
[2020-08-09] VITALS (7 sets, daily range): BP systolic 107–146; BP diastolic 55–71; PULSE 70–90; RESP 16–19; TEMP 36.5–37.2; O2SAT 91–97; BMI 50.6; BMI 49.4
--- NOTE | 2020-08-09 15:43 | ED.VIS.GEN ---
History of Present Illness Chief Complaint: Flank Pain Informant: Patient Narrative: 75-year-old female presenting from [facility] for IV antibiotics given that she has Carbapenem resistant Klebsiella pyelonephritis. Patient states that she has bilateral flank pains. Patient states that she had a UTI since the . She does not have significant nausea. She states that she does not feel otherwise unwell. - Past Medical History (1) UTI (urinary tract infection) Status: Chronic (2) Anxiety and depression Status: Chronic (3) DM II (diabetes mellitus, type II), controlled Status: Chronic Comment: states this was cured with the gastric bypass surgery Past Medical History - Allergies and Home Meds Allergies/Adverse Reactions: Allergies ampicillin [From Unasyn] Allergy (Severe, Verified 08/09/20 15:33) Other Blisters on tongue /throat difficulty breathing sore tongue/throat warfarin sodium [From Coumadin] Allergy (Severe, Verified 08/09/20 15:33) Low red blood cells Prior records reviewed: Yes Past Medical History: - - Diabetes, hypertension, hyperlipidemia, DVT, diabetic neuropathy Surgical History: cholecystectomy, gastric bypass, hysterectomy, tonsillectomy, - - Gastric bypass, surgery for left arm fracture Smoking Status: Never smoker - Family History Paternal Family History: Family History (Last Reviewed 05/25/20 @ 00:[address] Elpidio Faust MD) Other Heart disease High cholesterol Hypertension Myocardial infarction Family History: Reports: Cancer, Heart Disease Maternal Family History: Family History (Last Reviewed 05/25/20 @ 00:[address] Elpidio Faust MD) Other Heart disease High cholesterol Hypertension Myocardial infarction Family History: Reports: Heart Disease, Hypertension Review of Systems General: Denies: Chills, Fever, Sweats Eyes: Reports: Visual changes - right. Denies: Visual changes - left ENT: Denies: Rhinorrhea, Sore throat Cardiovascular: Denies: Chest pain, Palpitations Respiratory: Denies: Dyspnea, Cough, Dyspnea on exertion Gastrointestinal: Reports: Abdominal pain, Nausea Genitourinary: Reports: Dysuria. Denies: Hematuria Musculoskeletal: Reports: Back pain - Bilateral flank pain Skin: Denies: Rash, Abscess Neurological: Denies: Headache, Parasthesia, Numbness Psych: Denies: Depression, Anxiety Physical Exam Vital Signs/Narrative: Vital Signs Temp Pulse Resp BP Pulse Ox 08/09/20 15:29 98.0 F 82 18 133/65 H 94 Inital Vital Signs reviewed: Yes General: Well nourished, No Acute Distress Head: Normocephalic, Atraumatic Eyes: Perrl, EOMI ENT: Moist mucous membranes, No rhinorrhea Cardiovascular: Regular rate, Regular rhythm Respiratory: No distress, CTA bilaterally Abdomen: Soft, Nondistended, Tender - Bilateral flank pain Back: CVA tenderness - Bilaterally. Negative for: Spinal tenderness Extremities: Nontender, No edema Skin: Normal color, No rash Neurological: Alert, Oriented x3, Cranial nerves II-XII grossly intact Psychological: Normal affect, Normal Mood Diagnostic/Tx/Re-eval Laboratory Data 08/09/20 08/09/20 08/09/20 16:15 16:15 16:15 WBC 5.2 RBC 3.89 L Hgb 11.6 L Hct 34.6 L MCV 88.9 MCH 29.8 MCHC 33.5 RDW Std Deviation 45.7 H RDW Coeff of Chani 14.1 Plt Count 230 MPV 10.7 Immature Gran % (Auto) 0.400 Neut % (Auto) 60.3 Lymph % (Auto) 26.0 [place] % (Auto) 10.8 H Eos % (Auto) 1.5 Baso % (Auto) 1.0 Absolute Neuts (auto) 3.1 Absolute Lymphs (auto) 1.35 Nucleated RBC % 0 Sodium 138 Potassium 4.3 Chloride 104 Carbon Dioxide 30.0 Anion Gap 4 L BUN 20 H Creatinine 0.88 Estim Creat Clear Calc 50.47 Est GFR (MDRD) Af Amer 80 Est GFR (MDRD) Non-Af 66 BUN/Creatinine Ratio 22.6 H Glucose 83 Lactic Acid 1.2 Calcium 8.4 L Total Bilirubin 0.30 AST 17 ALT 13 Alkaline Phosphatase 77 Total Protein 6.1 L Albumin 2.9 L Globulin 3.2 Albumin/Globulin Ratio 0.9 Urine Color Urine Clarity Urine pH Ur Specific [place] Urine Protein Urine Glucose (UA) Urine Ketones Urine Occult Blood Urine Nitrite Urine Bilirubin Urine Urobilinogen Ur Leukocyte Esterase Urine RBC Urine WBC Ur Squamous Epith Cells Urine Bacteria Urine Mucus 08/09/20 16:25 WBC RBC Hgb Hct MCV MCH MCHC RDW Std Deviation RDW Coeff of Chani Plt Count MPV Immature Gran % (Auto) Neut % (Auto) Lymph % (Auto) [place] % (Auto) Eos % (Auto) Baso % (Auto) Absolute Neuts (auto) Absolute Lymphs (auto) Nucleated RBC % Sodium Potassium Chloride Carbon Dioxide Anion Gap BUN Creatinine Estim Creat Clear Calc Est GFR (MDRD) Af Amer Est GFR (MDRD) Non-Af BUN/Creatinine Ratio Glucose Lactic Acid Calcium Total Bilirubin AST ALT Alkaline Phosphatase Total Protein Albumin Globulin Albumin/Globulin Ratio Urine Color Yellow Urine Clarity Clear Urine pH 6.0 Ur Specific [place] 1.010 Urine Protein Negative Urine Glucose (UA) Normal Urine Ketones Negative Urine Occult Blood 10 H Urine Nitrite Negative Urine Bilirubin Negative Urine Urobilinogen Normal Ur Leukocyte Esterase 100 H Urine RBC 0 SEEN Urine WBC 0-5 SEEN Ur Squamous Epith Cells 0 SEEN Urine Bacteria RARE Urine Mucus 0 SEEN - Medical Decision Making 75-year-old female presenting with multidrug-resistant UTI. She does have mild bilateral flank pain but states she feels otherwise well. She is not vomiting. She has not had a fever. Patient's culture was reviewed and it shows she is only sensitive to amikacin. She was given a dose of this dosed by pharmacy. Patient did have blood cultures drawn at the request of infectious disease. Urine culture is pending. Urinalysis is not too impressive but I already have the culture from before. Patient's vital signs are stable and she is afebrile. She shows no leukocytosis. Hemoglobin is stable. GFR is normal. Lactic acid within normal limits. LFTs are normal. Patient will be admitted in stable condition. Impression: 1. Pyelonephritis 2. Multidrug-resistant UTI ED Disposition - Plan for ED Patient: Disposition: Acute Care [facility]
[2020-08-09 16:27] LABS: Absolute Lymphocyte Count 1.35 X10^3/uL (0.83-4.51); Absolute Neutrophil Count 3.1 X10^3/uL (2.0-7.7); Basophil# 0.05 X10^3/uL; Eosinophil# 0.08 X10^3/uL; Eosinophils% 1.5 % (0-5); Hematocrit 34.6 % (37-47); Hemoglobin 11.6 g/dL (12.0-15.0); Lymphocyte # 1.35 X10^3/ul (4.0); Mean Corp Hgb Conc 33.5 g/dL (32-36); Mean Corpuscular Hgb 29.8 pg (27.0-32.0); Mean Corpuscular Volume 88.9 fL (81-99); Mean Platelet Vol. 10.7 fl (6.2-12.0); Monocyte# 0.56 X10^3/uL; Monocyte% 10.8 % (0-10); NRBC Flagged by Analyzer 0 % (0-5); Neutrophil # 3.13 X10^3/uL (2.7-7.7); Neutrophil % 60.3 % (47-70); Platelet Count 230 K/mm3 (150-450); RBC Distribution Width CV 14.1 % (11.6-14.6); RBC Distribution Width SD 45.7 fl (35.1-43.9); Red Blood Count 3.89 M/mm3 (4.2-5.4); White Blood Count 5.2 K/mm3 (4.4-11.0)
[2020-08-09 16:37] LABS: Mucous, Urine 0 SEEN /hpf (<or=2+); Squamous Epithelial Cells - UA 0 SEEN /hpf (5-10)
[2020-08-09] MEDS: Morphine 4 MG/ML Syringe IV (16:40)
[2020-08-09] MEDS: Ondansetron 4 MG/2 ML Vial IV (16:40)
[2020-08-09 16:44] LABS: Color, Urine Yellow (Yellow); Glucose, Dipstick Normal (Normal); Ketone-Dipstick Negative (Negative); Leukocyte Esterase-Dipstick 100 /ul (Negative); Nitrite-Dipstick Negative (Negative); Occult Blood-Urine 10 /ul (Negative); Protein-Dipstick Negative (Negative); Urine Bilirubin Dipstick Negative (Negative); Urine Clarity Clear (Clear); Urine Urobilinogen Normal (Normal)
[2020-08-09 16:47] LABS: ALB/GLOB Ratio 0.9 RATIO (0.9-2.4); AST(SGOT) 17 U/L (15-37); Alanine Aminotransfer ALT/SGPT 13 U/L (13-56); Albumin, Serum 2.9 g/dL (3.2-5.0); Alkaline Phosphatase 77 U/L (45-117); Anion Gap 4 (5-15); BUN 20 mg/dL (7-18); BUN/Creat Ratio 22.6 RATIO (10-20); Calcium,Total 8.4 mg/dL (8.5-10.1); Chloride 104 mmol/L (98-107); Creatinine, Serum 0.88 mg/dL (0.55-1.02); EST Glomerular Filtration Rate 66 mL/min (>60); Est Glom Filt Rate - Afr Amer 80 mL/min (>60); Estimated Creatinine Clearance 50.47 ml/min; Globulin 3.2 g/dL (2.2-4.2); Glucose 83 mg/dL (74-106); Potassium 4.3 mmol/L (3.5-5.1); Protein, Total 6.1 g/dL (6.4-8.2); Sodium Level 138 mmol/L (136-145)
[2020-08-09 16:50] LABS: White Blood Cells 0-5 SEEN /hpf (0-5)
[2020-08-09 16:51] LABS: Bacteria RARE /hpf (None Seen); Red Blood Cells-Urine 0 SEEN /hpf (0-5)
[2020-08-09 17:01] LABS: Lactic Acid 1.2 mmol/L (0.4-1.9)
--- NOTE | 2020-08-09 17:32 | NURSING ---
DR ANTONIO FOR DR STEPHENS
--- NOTE | 2020-08-09 17:39 | NURSING ---
MED SURG KKOTSONIS MDR UTI
--- NOTE | 2020-08-09 18:18 | HP.PCM_ITS ---
History of Present Illness Date of Admission: 08/09/20 Chief Complaint: UTI The patient is a 75 year old F with a PMH as below presents from the infectious disease doctors office secondary to UTI. She was following up with her urologist because of her chronic UTIs and she had another urine culture obtained on August 07, 2020, and this came back with a multidrug-resistant Klebsiella that was resistant to Carbapenem's now. She was recently discharged on IM Invanz for an ESBL Kleb. She has bilateral flank pain but otherwise is doing okay denies any fevers or chills. In the ER she does not have a leukocytosis and she remains afebrile. Renal function is doing okay with a creatinine of 0.88. Her UA here shows a leukocyte Estrace of 100 with negative nitrites and rare bacteria. Past Medical History Past Medical History (Chronic Problems): Chronic Problems (Last Reviewed 05/25/20 @ 00:[address] Elpidio Faust MD) HTN (hypertension) (Chronic) HLD (hyperlipidemia) (Chronic) GERD (gastroesophageal reflux disease) (Chronic) Anxiety and depression (Chronic) Chronic neuropathic pain (Chronic) Unilateral primary osteoarthritis, right knee (Chronic) Chronic pain following surgery or procedure (Chronic) Morbid obesity with BMI of 45.0-49.9, adult (Chronic) ROXIE (obstructive sleep apnea) (Chronic) says she got off CPAP_ when she had gastric bypass surgery ......wieghed 248 after bypass and was up to 312 recently but, has been losing weight, unintentional. 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 Elpidio Faust MD) Arthritis M19.90 Bilateral headaches R51 Carpal tunnel syndrome G56.00 Cataracts, both eyes H26.9 Closed left arm fracture S42.302A Diabetes E11.9 FHx: cholecystectomy Z84.89 Heart disease I51.9 History of gallstones Z87.19 Neuropathy G62.9 Osteoarthritis M19.90 Polycystic ovaries E28.2 Hypertension I10 Allergies ampicillin [From Unasyn] Allergy (Severe, Verified 08/09/20 15:33) Other Blisters on tongue /throat difficulty breathing sore tongue/throat warfarin sodium [From Coumadin] Allergy (Severe, Verified 08/09/20 15:33) Low red blood cells Home Medications: Ambulatory Orders Medication Instructions Recorded Cholecalciferol (VIT D3) [Vitamin 1,000 unit PO DAILY 12/29/15 D3] Duloxetine Hcl [Cymbalta] 60 mg PO DAILY 12/29/15 Pravastatin [Pravachol] 40 mg PO QHS 08/05/18 Apixaban [Eliquis] 5 mg PO BID 03/18/19 Fluticasone 0.05% [Flonase Nasal 2 spray NASAL DAILY 03/18/19 [place]] Furosemide [Lasix] 60 mg PO DAILY 03/18/19 Primidone 100 mg PO QHS 03/18/19 SimETHICONE [Mylicon] 80 mg PO TIDCM 03/18/19 Lactobacillus Acidophilus 1 ea PO DAILY 09/06/19 [Acidophilus] Mirabegron [Myrbetriq] 50 mg PO QHS 01/24/20 Famotidine [Pepcid] 20 mg PO BID 03/23/20 Gabapentin [Neurontin] 400 mg PO TID 07/09/20 Divalproex Sodium [Depakote] 500 mg PO BID #0 07/11/20 Acetaminophen [Tylenol Extra 500 mg PO DAILY 08/09/20 Strength] Ascorbic Acid 500 mg PO DAILY 08/09/20 Bupropion HCl [Bupropion Xl] 150 mg PO DAILY 08/09/20 D-Mannose 1,000 mg PO BID 08/09/20 Estrogens, Conjugated [Premarin] 0.5 g VAGINAL WESA 08/09/20 Estrogens, Conjugated [Premarin] 0.5 mg VAGINAL QHS 08/09/20 Hydrocodone/Acetaminophen 1 tab PO BID PRN 08/09/20 [Hydrocodone-Acetamin 5-325 mg] Omeprazole 40 mg PO BID 08/09/20 Tolterodine Tartrate [Tolterodine 4 mg PO DAILY 08/09/20 Tartrate ER] Surgical History: Surgical History (Last Reviewed 05/25/20 @ 01:[address] 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 Elpidio Faust MD) Other Heart disease High cholesterol Hypertension Myocardial infarction History Items: Cancer, Heart Disease Maternal Family History: Family History (Last Reviewed 05/25/20 @ 00:[address] Elpidio Faust MD) Other Heart disease High cholesterol Hypertension Myocardial infarction History Items: Heart Disease, Hypertension Review of Systems Constitutional: Denies: Chills, Fever, Weight Change HEENT: Denies: Head Aches, Sinus Congestion, Sinus Drainage Cardiovascular: Denies: Chest Pain, Palpitations Respiratory: Denies: Cough, Shortness of breath at rest, Sputum production Gastrointestinal: Reports: Abdominal Pain - Bilateral flank pain. Denies: Nausea, Vomiting Genitourinary: Denies: Dysuria Musculoskeletal: Denies: Joint Pain, Joint Tenderness Skin: Denies: Rash, Wounds Neurological: Denies: Numbness, Tingling, Focal weakness Psychiatric: Denies: Anxiety, Depression Hematologic/ Lymphatic: Denies: Easy Bruising, Easy Bleeding VTE Information - Inpt Only VTE Present on Admission: No - Physical Exam Vitals/I&O's: Vital Signs Temp Pulse Resp BP Pulse Ox 98.9 F 83 18 121/62 H 91 08/09/20 17:37 08/09/20 17:37 08/09/20 17:37 08/09/20 17:37 08/09/20 17:37 Oxygen Delivery Method Room Air Weight: 304 lb 3.806 oz Body Mass Index (BMI) 50.6 General: Alert, Oriented x3, Cooperative, No apparent distress HEENT: Atraumatic, PERRLA, EOMI, Normocephalic Oral: Moist Mucosa Neck: Supple, No JVD Lungs: Clear to auscultation, Normal air movement, No rhonchi, No wheeze, No rales Cardiovascular: Regular rate, Regular Rhythm, Normal S1, Normal S2, No murmurs Abdomen: Soft, Non-Distended, No Hepato-splenomegaly, Tender - Minimal bilateral flank tenderness Extremities: No edema, Capillary Refill Less than 3 Seconds Skin: No rashes, No breakdown Neurological: Neuro grossly intact, Sensory exam intact to light touch and pain Psych/Mental Status: Normal Affect, Appropriate Laboratory Results 08/09/20 16:15: WBC 5.2, RBC 3.89 L, Hgb 11.6 L, Hct 34.6 L, MCV 88.9, MCH 29.8, MCHC 33.5, RDW Std Deviation 45.7 H, RDW Coeff of Chani 14.1, Plt Count 230, MPV 10.7, Immature Gran % (Auto) 0.400, Neut % (Auto) 60.3, Lymph % (Auto) 26.0, [place] % (Auto) 10.8 H, Eos % (Auto) 1.5, Baso % (Auto) 1.0, Absolute Neuts (auto) 3.1, Absolute Lymphs (auto) 1.35, Nucleated RBC % 0 08/09/20 16:15: Sodium 138, Potassium 4.3, Chloride 104, Carbon Dioxide 30.0, Anion Gap 4 L, BUN 20 H, Creatinine 0.88, Estim Creat Clear Calc 50.47, Est GFR (MDRD) Af Amer 80, Est GFR (MDRD) Non-Af 66, BUN/Creatinine Ratio 22.6 H, Glucose 83, Calcium 8.4 L, Total Bilirubin 0.30, AST 17, ALT 13, Alkaline Phosphatase 77, Total Protein 6.1 L, Albumin 2.9 L, Globulin 3.2, Albumin/Globulin Ratio 0.9 08/09/20 16:15: Lactic Acid 1.2 08/09/20 16:25: Urine Color Yellow, Urine Clarity Clear, Urine pH 6.0, Ur Specific [employer] 1.010, Urine Protein Negative, Urine Glucose (UA) Normal, Urine Ketones Negative, Urine Occult Blood 10 H, Urine Nitrite Negative, Urine Bilirubin Negative, Urine Urobilinogen Normal, Ur Leukocyte Esterase 100 H, Urine RBC 0 SEEN, Urine WBC 0-5 SEEN, Ur Squamous Epith Cells 0 SEEN, Urine Bacteria RARE, Urine Mucus 0 SEEN Current Medications Sodium Chloride (0.9% Saline Lock 10 Ml Syringe) 10 - 40 ml IV UD PRN PRN Reason: SALINE FLUSH Assessment/Plan All Active Problems (Last Reviewed 05/25/20 @ 00:[address] Elpidio Faust MD) Cystitis (Acute) Urinary tract infection (Acute) Abdominal pain (Resolved) 1. Acute UTI with an MDRO Klebsiella requiring only IV antibiotics/urinary incontinence -Resistance demonstrates amikacin is the only antibiotic available at this time -She had had previous infections in October and May 2020 with VRE and Pseudomonas as well as Enterobacter, and then in June 2020 she had an ESBL Klebsiella that she was treated with Invanz IM. -We will continue with amikacin and consult infectious disease -Will likely need a PICC line -We will continue with her tolterodine but will discontinue her Myrbetriq 2. HTN/HLD/morbid obesity -Her BMI is close to 50, discussed lifestyle modifications -Continue with her home blood pressure medications -Continue her statin 3. DM 2 with peripheral neuropathy -Continue with sliding scale insulin, will adjust insulin as necessary -Accu-Cheks AC at bedtime 4. Anxiety/depression -Stable -Continue with home medications 5. History of DVT -She did have an IVC filter placed -Continue with Eliquis DVT: Eliquis Inpatient E&M: 92461 In Hosp L3
[2020-08-09] MEDS: APIXABAN 5 MG TABLET PO (20:27)
[2020-08-09] MEDS: Pravastatin 40 MG Tablet PO (20:27)
[2020-08-09] MEDS: Divalproex Sodium 250 MG Tablet 500 MG PO (20:27)
[2020-08-09] MEDS: Famotidine 20 MG Tablet PO (20:27)
[2020-08-09] MEDS: Primidone 50 MG Tablet 100 MG PO (20:28)
[2020-08-09] MEDS: Gabapentin 400 MG Capsule PO (20:29)
[2020-08-09] MEDS: 0.9% Saline Lock 10 ML Syringe IV (20:33)
[2020-08-09] MEDS: Acetaminophen 325 MG Tablet 650 MG PO (20:37)
[2020-08-09] MEDS: HYDROcodone Bitartrate/Apap 5/325 Tablet PO (23:47)
[2020-08-10 03:49] VITALS: BP 102/54; PULSE 75; RESP 18; TEMP 36.5; O2SAT 94
[2020-08-10] MEDS: HYDROcodone Bitartrate/Apap 5/325 Tablet PO ×2 (03:53→14:49)
[2020-08-10] MEDS: Gabapentin 400 MG Capsule PO ×3 (06:49→20:57)
[2020-08-10 06:54] LABS: Absolute Neutrophil Count 3.1 X10^3/uL (2.0-7.7); Basophil# 0.05 X10^3/uL; Basophil% 0.9 % (0-1); Eosinophils% 1.8 % (0-5); Hematocrit 34.4 % (37-47); Hemoglobin 10.4 g/dL (12.0-15.0); Lymphocyte % 29.5 % (19-41); Mean Corp Hgb Conc 30.2 g/dL (32-36); Mean Corpuscular Volume 92.5 fL (81-99); Mean Platelet Vol. 10.2 fl (6.2-12.0); Monocyte# 0.59 X10^3/uL; Monocyte% 10.9 % (0-10); NRBC Flagged by Analyzer 0 % (0-5); Neutrophil # 3.07 X10^3/uL (2.7-7.7); Neutrophil % 56.5 % (47-70); Platelet Count 209 K/mm3 (150-450); RBC Distribution Width CV 14.2 % (11.6-14.6); RBC Distribution Width SD 48.1 fl (35.1-43.9); Red Blood Count 3.72 M/mm3 (4.2-5.4); White Blood Count 5.4 K/mm3 (4.4-11.0)
[2020-08-10 07:18] LABS: Anion Gap 5 (5-15); BUN 22 mg/dL (7-18); BUN/Creat Ratio 27.6 RATIO (10-20); Calcium,Total 8.3 mg/dL (8.5-10.1); Chloride 102 mmol/L (98-107); EST Glomerular Filtration Rate 75 mL/min (>60); Est Glom Filt Rate - Afr Amer 91 mL/min (>60); Estimated Creatinine Clearance 55.52 ml/min; Glucose 81 mg/dL (74-106); Potassium 3.9 mmol/L (3.5-5.1); Sodium Level 137 mmol/L (136-145)
[2020-08-10] MEDS: Acetaminophen 325 MG Tablet 650 MG PO ×2 (07:57→21:51)
[2020-08-10 08:00] VITALS: PULSE 73; RESP 18; O2SAT 99
[2020-08-10 08:52] VITALS: BP 96/58; PULSE 73; RESP 18; TEMP 36.7; O2SAT 98
--- NOTE | 2020-08-10 10:16 | CON.PCM_ITS ---
Problem List (1) 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 Status: Acute Reason for Consult: pyelo Consulted by: Dr. Downey History of Present Illness: The patient is a 75 year old F with recurrent uti, presented to clinic yesterday with 2 days of not feeling well, weakness, lower abd and R flank pain, dysuria, foul smelling urine. No fever, no change in taste or smell. Has not gotten covid vaccine at [facility] due to refusal. Admitted several weeks ago with ESBL uti, discharged on ertapenem. Follows with Dr. Villavicencio. Ucx on 08/03 with XDR klebsiella. Sent to ED, bcx and ucx collected, given amikacin x1. Feeling better this AM. Full ROS performed and neg except as noted above. - Medical History Past Medical History (Chronic Problems): Chronic Problems (Last Reviewed 05/25/20 @ 00:[address] Elpidio Faust MD) HTN (hypertension) (Chronic) HLD (hyperlipidemia) (Chronic) GERD (gastroesophageal reflux disease) (Chronic) Anxiety and depression (Chronic) Chronic neuropathic pain (Chronic) Unilateral primary osteoarthritis, right knee (Chronic) Chronic pain following surgery or procedure (Chronic) Morbid obesity with BMI of 45.0-49.9, adult (Chronic) ROXIE (obstructive sleep apnea) (Chronic) says she got off CPAP_ when she had gastric bypass surgery ......wieghed 248 after bypass and was up to 312 recently but, has been losing weight, unintentional. 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) Segmental and somatic dysfunction of pelvic region (Chronic) Facet arthropathy, lumbar (Chronic) Segmental and somatic dysfunction of thoracic region (Chronic) Segmental and somatic dysfunction of lumbar region (Chronic) History of DVT (deep vein thrombosis) (Chronic) recurrent History of gastric bypass (Chronic) Shortness of breath on exertion (Chronic) Allergies/Adverse Reactions: Allergies ampicillin [From Unasyn] Allergy (Severe, Verified 08/09/20 15:33) Other Blisters on tongue /throat difficulty breathing sore tongue/throat warfarin sodium [From Coumadin] Allergy (Severe, Verified 08/09/20 15:33) Low red blood cells Home Medications: Ambulatory Orders Medication Instructions Recorded Cholecalciferol (VIT D3) [Vitamin 1,000 unit PO DAILY 12/29/15 D3] Duloxetine Hcl [Cymbalta] 60 mg PO DAILY 12/29/15 Pravastatin [Pravachol] 40 mg PO QHS 08/05/18 Apixaban [Eliquis] 5 mg PO BID 03/18/19 Fluticasone 0.05% [Flonase Nasal 2 spray NASAL DAILY 03/18/19 [place]] Furosemide [Lasix] 60 mg PO DAILY 03/18/19 Primidone 100 mg PO QHS 03/18/19 SimETHICONE [Mylicon] 80 mg PO TIDCM 03/18/19 Lactobacillus Acidophilus 1 ea PO DAILY 09/06/19 [Acidophilus] Mirabegron [Myrbetriq] 50 mg PO QHS 01/24/20 Famotidine [Pepcid] 20 mg PO BID 03/23/20 Gabapentin [Neurontin] 400 mg PO TID 07/09/20 Divalproex Sodium [Depakote] 500 mg PO BID #0 07/11/20 Acetaminophen [Tylenol Extra 500 mg PO DAILY 08/09/20 Strength] Bupropion HCl [Bupropion Xl] 150 mg PO DAILY 08/09/20 D-Mannose 1,000 mg PO BID 08/09/20 Estrogens, Conjugated [Premarin] 0.5 g VAGINAL WESA 08/09/20 Estrogens, Conjugated [Premarin] 0.5 mg VAGINAL QHS 08/09/20 Hydrocodone/Acetaminophen 1 tab PO BID PRN 08/09/20 [Hydrocodone-Acetamin 5-325 mg] Omeprazole 40 mg PO BID 08/09/20 Tolterodine Tartrate [Tolterodine 4 mg PO DAILY 08/09/20 Tartrate ER] Ascorbic Acid [Vitamin C] 500 mg PO BIDCM #180 tab 08/10/20 Meropenem/Vaborbactam [Vabomere 2 4 gm IV Q8H #24 vial 08/10/20 Gram Vial] Methenamine Hippurate [Hiprex] 1 gm PO BID #180 tab 08/10/20 - Social History Tobacco Use: non-smoker Vital Signs Temp Pulse Resp BP Pulse Ox 98.0 F 73 18 96/58 L 98 08/10/20 08:52 08/10/20 08:52 08/10/20 08:52 08/10/20 08:52 08/10/20 08:52 Oxygen Delivery Method Room Air Weight: 134.717 kg Body Mass Index (BMI) 49.4 Laboratory Tests Past 24 Hrs 08/09/20 08/09/20 08/09/20 16:15 16:15 16:15 WBC 5.2 RBC 3.89 L Hgb 11.6 L Hct 34.6 L MCV 88.9 MCH 29.8 MCHC 33.5 RDW Std Deviation 45.7 H RDW Coeff of Chani 14.1 Plt Count 230 MPV 10.7 Immature Gran % (Auto) 0.400 Neut % (Auto) 60.3 Lymph % (Auto) 26.0 [place] % (Auto) 10.8 H Eos % (Auto) 1.5 Baso % (Auto) 1.0 Absolute Neuts (auto) 3.1 Absolute Lymphs (auto) 1.35 Nucleated RBC % 0 Sodium 138 Potassium 4.3 Chloride 104 Carbon Dioxide 30.0 Anion Gap 4 L BUN 20 H Creatinine 0.88 Estim Creat Clear Calc 50.47 Est GFR (MDRD) Af Amer 80 Est GFR (MDRD) Non-Af 66 BUN/Creatinine Ratio 22.6 H Glucose 83 Lactic Acid 1.2 Calcium 8.4 L Total Bilirubin 0.30 AST 17 ALT 13 Alkaline Phosphatase 77 Total Protein 6.1 L Albumin 2.9 L Globulin 3.2 Albumin/Globulin Ratio 0.9 Urine Color Urine Clarity Urine pH Ur Specific [place] Urine Protein Urine Glucose (UA) Urine Ketones Urine Occult Blood Urine Nitrite Urine Bilirubin Urine Urobilinogen Ur Leukocyte Esterase Urine RBC Urine WBC Ur Squamous Epith Cells Urine Bacteria Urine Mucus 08/09/20 08/10/20 08/10/20 16:25 06:10 06:10 WBC 5.4 RBC 3.72 L Hgb 10.4 L Hct 34.4 L MCV 92.5 MCH 28.0 MCHC 30.2 L D RDW Std Deviation 48.1 H RDW Coeff of Chani 14.2 Plt Count 209 MPV 10.2 Immature Gran % (Auto) 0.400 Neut % (Auto) 56.5 Lymph % (Auto) 29.5 [place] % (Auto) 10.9 H Eos % (Auto) 1.8 Baso % (Auto) 0.9 Absolute Neuts (auto) 3.1 Absolute Lymphs (auto) 1.60 Nucleated RBC % 0 Sodium 137 Potassium 3.9 Chloride 102 Carbon Dioxide 30.0 Anion Gap 5 BUN 22 H Creatinine 0.80 Estim Creat Clear Calc 55.52 Est GFR (MDRD) Af Amer 91 Est GFR (MDRD) Non-Af 75 BUN/Creatinine Ratio 27.6 H Glucose 81 Lactic Acid Calcium 8.3 L Total Bilirubin AST ALT Alkaline Phosphatase Total Protein Albumin Globulin Albumin/Globulin Ratio Urine Color Yellow Urine Clarity Clear Urine pH 6.0 Ur Specific [place] 1.010 Urine Protein Negative Urine Glucose (UA) Normal Urine Ketones Negative Urine Occult Blood 10 H Urine Nitrite Negative Urine Bilirubin Negative Urine Urobilinogen Normal Ur Leukocyte Esterase 100 H Urine RBC 0 SEEN Urine WBC 0-5 SEEN Ur Squamous Epith Cells 0 SEEN Urine Bacteria RARE Urine Mucus 0 SEEN - Other Studies Radiology: [] reviewed Other Studies: [] Route of nutrition/ use of supplements: [] Nutritional Intake: [] IV Site: [] Adler Catheter: [] - Physical Exam General: Alert, Oriented x3, Cooperative, No apparent distress HEENT: Atraumatic, PERRLA, EOMI Neck: Supple, No Nodes Lungs: Clear to auscultation, Normal air movement Cardiovascular: Regular rate, Regular Rhythm Abdomen: Soft, Non-Distended, Tender - mild lower abd tenderness, R flank tenderness Extremities: No edema Skin: No rashes IV Site: Peripheral, without redness Musculoskeletal: No Tenderness to Palpation of Joints or Extremities Neurological: Cranial nerves II-XII grossly intact - Assessment/Plan Antibiotics: [] Assessment/Plan: [] XDR klebs pyelonephritis - feeling better today after dose of amikacin yesterday. Vabomere is on order and should arrive today. Will order midline, plan on 10 days total of klebs coverage, stop date 08/19/20. Wrote rx for vabomere at discharge. Will also start methenamine and vit C bid for fdc prevention. Will follow, thank you, d/w employment case manager and pharmacy.
[2020-08-10] MEDS: Divalproex Sodium 250 MG Tablet 500 MG PO ×2 (11:05→20:58)
[2020-08-10] MEDS: Pantoprazole Sodium 40 MG Tablet PO (11:05)
[2020-08-10] MEDS: Ascorbic Acid 500 MG Tablet PO (11:05)
[2020-08-10] MEDS: Tolterodine Tartrate 4 MG CAP.SA PO (11:05)
[2020-08-10] MEDS: Furosemide 40 MG Tablet 60 MG PO (11:05)
[2020-08-10] MEDS: Famotidine 20 MG Tablet PO ×2 (11:06→20:59)
[2020-08-10] MEDS: buPROPion (XL) 150 MG TABLET.XL PO (11:06)
[2020-08-10] MEDS: DULoxetine Hcl 60 MG Capsule PO (11:07)
[2020-08-10] MEDS: APIXABAN 5 MG TABLET PO ×2 (11:07→21:01)
[2020-08-10] MEDS: Fluticasone 0.05% 1 SPRAY NASAL.SRY 2 SPRAY NASAL (11:08)
--- NOTE | 2020-08-10 11:33 | CASEMGMT ---
Addendum entered by Maria E Martinez 08/10/20 12:00: SW faxed initial referral to [facility], will fax PT/OT when available. Original Note: Social Work Note Pt is listed as being from [facility]. Per ID, pt will need to be on IV antibiotics at discharge. Pt will not be able to return to [facility] with IV antibiotics. SW in to speak with pt. SW introduced self and role at [facility]. Pt is alert and orientated. Pt confirms she is from [facility]. SW informed pt that since she will be on IV antibiotics, pt will not be able to return to [facility] pt will need to go to SNF. Patient was provided a list of SNF providers including quality and resource use data and consistent with the patient?s preferred geographic region, medical needs, and insurance network. The patient?s preferred provider is [facility]. SW informed pt that pt will not have to be for [facility] forever, just until pt has completed IV antibiotics. Pt states understanding. Pt asked this worker to call Brook Schwarz. SW placed a call to Eva at [facility] and provided referral. SW to fax referral. SW placed a call to Brook Schwarz at [facility] and left message updating her on pt's admission to [facility]. Plan: [facility] pending acceptance and pre-cert Maria E Martinez LEGGER PRESS OPERATOR, [employer]ATTE OPERATOR
--- NOTE | 2020-08-10 13:43 | PCM.PN.HOSP ---
Patient Problems: Active and Suspected Problems (Last Reviewed 05/25/20 @ 00:[address] Elpidio Faust MD) 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 (Acute) Subjective: Feels much better. Vitals/I&O's: Vital Signs Temp Pulse Resp BP Pulse Ox 36.7 C 73 18 96/58 L 98 08/10/20 08:52 08/10/20 08:52 08/10/20 08:52 08/10/20 08:52 08/10/20 08:52 Oxygen Delivery Method Room Air Weight: 134.717 kg Body Mass Index (BMI) 49.4 Intake and Output for Last 24 Hours 08/08/20 08/09/20 08/10/20 23:59 23:59 23:59 Intake Total 551.75 / 551.75 1140 / 1140 Output Total 400 / 400 1050 / 1050 Balance 151.75 / 151.75 90 / 90 General: Alert, No apparent distress HEENT: Atraumatic, Normocephalic Oral: Moist Mucosa, No Gingival or Mucosal Lesions/ Ulcerations Neck: No Nodes, Thyroid Normal Size and Texture Lungs: Clear to auscultation, Normal air movement, No rhonchi, No wheeze, No rales Cardiovascular: Regular rate, Regular Rhythm, Normal S1, Normal S2, No murmurs Abdomen: Bowel Sounds Present, Soft, Non Tender, Non-Distended, No Hepato-splenomegaly Extremities: No edema, No Calf Tenderness Microbiology Past 72 Hours 08/09/20 16:25 Urine, Clean Catch Urine Culture - Preliminary GNR lactose leak hunter Laboratory Results 08/09/20 16:15: WBC 5.2, RBC 3.89 L, Hgb 11.6 L, Hct 34.6 L, MCV 88.9, MCH 29.8, MCHC 33.5, RDW Std Deviation 45.7 H, RDW Coeff of Chani 14.1, Plt Count 230, MPV 10.7, Immature Gran % (Auto) 0.400, Neut % (Auto) 60.3, Lymph % (Auto) 26.0, [place] % (Auto) 10.8 H, Eos % (Auto) 1.5, Baso % (Auto) 1.0, Absolute Neuts (auto) 3.1, Absolute Lymphs (auto) 1.35, Nucleated RBC % 0 08/09/20 16:15: Sodium 138, Potassium 4.3, Chloride 104, Carbon Dioxide 30.0, Anion Gap 4 L, BUN 20 H, Creatinine 0.88, Estim Creat Clear Calc 50.47, Est GFR (MDRD) Af Amer 80, Est GFR (MDRD) Non-Af 66, BUN/Creatinine Ratio 22.6 H, Glucose 83, Calcium 8.4 L, Total Bilirubin 0.30, AST 17, ALT 13, Alkaline Phosphatase 77, Total Protein 6.1 L, Albumin 2.9 L, Globulin 3.2, Albumin/Globulin Ratio 0.9 08/09/20 16:15: Lactic Acid 1.2 08/09/20 16:25: Urine Color Yellow, Urine Clarity Clear, Urine pH 6.0, Ur Specific Topping 1.010, Urine Protein Negative, Urine Glucose (UA) Normal, Urine Ketones Negative, Urine Occult Blood 10 H, Urine Nitrite Negative, Urine Bilirubin Negative, Urine Urobilinogen Normal, Ur Leukocyte Esterase 100 H, Urine RBC 0 SEEN, Urine WBC 0-5 SEEN, Ur Squamous Epith Cells 0 SEEN, Urine Bacteria RARE, Urine Mucus 0 SEEN 08/10/20 06:10: WBC 5.4, RBC 3.72 L, Hgb 10.4 L, Hct 34.4 L, MCV 92.5, MCH 28.0, MCHC 30.2 L D, RDW Std Deviation 48.1 H, RDW Coeff of Chani 14.2, Plt Count 209, MPV 10.2, Immature Gran % (Auto) 0.400, Neut % (Auto) 56.5, Lymph % (Auto) 29.5, [place] % (Auto) 10.9 H, Eos % (Auto) 1.8, Baso % (Auto) 0.9, Absolute Neuts (auto) 3.1, Absolute Lymphs (auto) 1.60, Nucleated RBC % 0 08/10/20 06:10: Sodium 137, Potassium 3.9, Chloride 102, Carbon Dioxide 30.0, Anion Gap 5, BUN 22 H, Creatinine 0.80, Estim Creat Clear Calc 55.52, Est GFR (MDRD) Af Amer 91, Est GFR (MDRD) Non-Af 75, BUN/Creatinine Ratio 27.6 H, Glucose 81, Calcium 8.3 L Current Medications Acetaminophen (Acetaminophen 325 Mg Tablet) 650 mg PO Q6H PRN PRN PRN Reason: Pain Score 1-10/Temp > 100.7 F Last Admin: 08/10/20 07:57 Dose: 650 mg Documented by: Hydrocodone Bitart/Acetaminophen (Hydrocodone Bitartrate/Apap 5/325 Tablet) 1 tablet PO BID PRN PRN Reason: Pain 1-10 or Fever Last Admin: 08/10/20 03:53 Dose: 1 tablet Documented by: Apixaban (Apixaban 5 Mg Tablet) 5 mg PO BID [facility] Last Admin: 08/10/20 11:07 Dose: 5 mg Documented by: Ascorbic Acid (Ascorbic Acid 500 Mg Tablet) 500 mg PO DAILY [facility] Last Admin: 08/10/20 11:05 Dose: 500 mg Documented by: Bupropion HCl (Bupropion (Xl) 150 Mg Tablet.Xl) 150 mg PO DAILY [facility] Last Admin: 08/10/20 11:06 Dose: 150 mg Documented by: Cholecalciferol (Cholecalciferol (Vit D3) 1,000 Unit (25mcg)) 1,000 unit PO DAILY [facility] Last Admin: 08/10/20 11:05 Dose: 1,000 unit Documented by: Divalproex Sodium (Divalproex Sodium 250 Mg Tablet) 500 mg PO BID [facility] Last Admin: 08/10/20 11:05 Dose: 500 mg Documented by: Duloxetine HCl (Duloxetine Hcl 60 Mg Capsule) 60 mg PO DAILY [facility] Last Admin: 08/10/20 11:07 Dose: 60 mg Documented by: Famotidine (Famotidine 20 Mg Tablet) 20 mg PO BID [facility] Last Admin: 08/10/20 11:06 Dose: 20 mg Documented by: Fluticasone Propionate (Fluticasone 0.05% 1 [place] Nasal.Sry) 2 spray NASAL DAILY [facility] Last Admin: 08/10/20 11:08 Dose: 2 spray Documented by: Furosemide (Furosemide 40 Mg Tablet) 60 mg PO DAILY [facility] Last Admin: 08/10/20 11:05 Dose: 60 mg Documented by: Gabapentin (Gabapentin 400 Mg Capsule) 400 mg PO TID [facility] Last Admin: 08/10/20 06:49 Dose: 400 mg Documented by: Sodium Chloride () 250 mls @ 15 mls/hr IV .[id number] PRN PRN Reason: Saline Flush Last Infusion: 08/09/20 22:00 Dose: 0 mls/hr Documented by: Melatonin (Melatonin 3 Mg Tablet) 3 mg PO QHS PRN PRN PRN Reason: INSOMNIA Ondansetron HCl (Ondansetron 4 Mg/2 Ml Vial) 4 mg IV Q8H PRN PRN PRN Reason: NAUSEA/VOMITING Pantoprazole Sodium (Pantoprazole Sodium 40 Mg Tablet) 40 mg PO DAILY [facility] Last Admin: 08/10/20 11:05 Dose: 40 mg Documented by: Pravastatin Sodium (Pravastatin 40 Mg Tablet) 40 mg PO QHS [facility] Last Admin: 08/09/20 20:27 Dose: 40 mg Documented by: Primidone (Primidone 50 Mg Tablet) 100 mg PO QHS [facility] Last Admin: 08/09/20 20:28 Dose: 100 mg Documented by: Simethicone (Simethicone 80 Mg Tablet) 80 mg PO TIDCM [facility] Last Admin: 08/10/20 11:08 Dose: 80 mg Documented by: Sodium Chloride (0.9% Saline Lock 10 Ml Syringe) 10 - 40 ml IV UD PRN PRN Reason: SALINE FLUSH Last Admin: 08/09/20 20:33 Dose: 10 ml Documented by: Tolterodine Tartrate (Tolterodine Tartrate 4 Mg Cap.Sa) 4 mg PO DAILY [facility] Last Admin: 08/10/20 11:05 Dose: 4 mg Documented by: Medical Necessity - Tobacco Use Smoking Status: Never smoker Assessment/Plan All Active Problems (Last Reviewed 05/25/20 @ 00:[address] Elpidio Faust MD) Cystitis (Acute) 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 (Acute) Urinary tract infection (Acute) Abdominal pain (Resolved) 1. acute UTI with MRD Klebsiella ID seeing Vabomere upon discharge Patient will also be on methenamine and vitamin C for long-term prevention. Patient will require midline. 2. History of VTE: Apixaban. Inpatient E&M: 76783 [facility] Hosp L2
[2020-08-10 14:00] VITALS: BP 104/53; PULSE 77; RESP 18; TEMP 36.6; O2SAT 95
--- NOTE | 2020-08-10 14:16 | NURSING ---
mild redness noted to iv site after vanc has been infusing for approx 1 hour. med was stopped and area marked. dr smith notified. this nurse spoke w/celia the pharmacist, it is okay to switch to hand to infuse at lower rate or may continue in previous site at lower rate. the next dose will be infused over 3h per celia. pt denies any irritation at site
--- NOTE | 2020-08-10 14:23 | CASEMGMT ---
RN CM readmission note: Patient was admitted on 07/09/20-07/11/20 for UTI. Patient was dc'd to [facility] on IM antibiotics. Patient states she completed course of antibiotics and followed up with PCP. Patient returned on 08/09/20 for MDRO UTI. Patient is receiving IV antibiotics and ID consulted. Patient will dc with IV antibiotics to [facility]. CM will continue to follow pt for discharge needs.
--- NOTE | 2020-08-10 14:33 | CASEMGMT ---
Social Work Note RUKHSANA faxed PT eval to Eva at [facility]. RUKHSANA placed a call to Eva at [facility], Eva states pt's insurance is still waiving pre-certs, pt can admit when medically ready. RUKHSANA informed Eva that pt will likely discharge tomorrow. Plan: [facility] once medically cleared, likely tomorrow Maria E Martinez UNCLAIMED PROPERTY OFFICER, [employer]IO MECH[employer]IC
[2020-08-10] MEDS: 0.9% Saline Lock 10 ML Syringe IV (14:49)
--- NOTE | 2020-08-10 16:02 | NURSING ---
Student documentation reviewed.
[2020-08-10 20:42] VITALS: BP 123/61; PULSE 73; RESP 18; TEMP 36.3; O2SAT 100
[2020-08-10] MEDS: Pravastatin 40 MG Tablet PO (20:59)
[2020-08-10] MEDS: Primidone 50 MG Tablet 100 MG PO (21:01)
[2020-08-11 03:25] VITALS: BP 109/57; PULSE 69; RESP 18; TEMP 36.4; O2SAT 94
[2020-08-11] MEDS: Acetaminophen 325 MG Tablet 650 MG PO (03:53)
[2020-08-11] MEDS: Gabapentin 400 MG Capsule PO (05:28)
[2020-08-11 08:05] VITALS: BP 137/71; PULSE 65; RESP 18; TEMP 36.4; O2SAT 95
[2020-08-11 09:14] VITALS: PULSE 65
[2020-08-11] MEDS: DULoxetine Hcl 60 MG Capsule PO (10:01)
[2020-08-11] MEDS: Bisacodyl 5 MG Tablet PO (10:01)
[2020-08-11] MEDS: Divalproex Sodium 250 MG Tablet 500 MG PO (10:02)
[2020-08-11] MEDS: APIXABAN 5 MG TABLET PO (10:03)
[2020-08-11] MEDS: Tolterodine Tartrate 4 MG CAP.SA PO (10:03)
[2020-08-11] MEDS: Pantoprazole Sodium 40 MG Tablet PO (10:04)
[2020-08-11] MEDS: Furosemide 40 MG Tablet 60 MG PO (10:04)
[2020-08-11] MEDS: buPROPion (XL) 150 MG TABLET.XL PO (10:06)
[2020-08-11] MEDS: Fluticasone 0.05% 1 SPRAY NASAL.SRY 2 SPRAY NASAL (10:07)
[2020-08-11] MEDS: Famotidine 20 MG Tablet PO (10:07)
[2020-08-11] MEDS: Ascorbic Acid 500 MG Tablet PO (10:11)
--- NOTE | 2020-08-11 11:02 | PCM.TXEXTCAR ---
- Diet 08/09/20 18:35 Diet: Consistent Carb - Calorie Controlled Food consistency:: Regular Liquid Consistency:: Regular/Thin Dietary Modifications:: Cardiac / Heart Healthy Is pt able to select menu?: Yes How many daily calories?: 2200 calorie - Routine Orders/Code Status Code Status: Full Code - Therapies Weight Bearing: Full weight bearing Physical Therapy: Eval and Treat Occupational Therapy: Eval and Treat - Allergies/Procedures Done in Hospital Allergies/Adverse Reactions: Allergies ampicillin [From Unasyn] Allergy (Severe, Verified 08/09/20 15:33) Other Blisters on tongue /throat difficulty breathing sore tongue/throat warfarin sodium [From Coumadin] Allergy (Severe, Verified 08/09/20 15:33) Low red blood cells Procedures: None - Type of Care/Length of Stay Estimated LOS: Convalescent Care Less Than 30 days Type of Care Needed: Skilled Rehab Potential: Good Prognosis: Good - Additional Orders/Day of Discharge Day of Discharge: 08/11/20 - Dietary and Speech Recommendations Dietitian Recommendations/Changes: Will provide Cardiac:2200 Calorie controlled diet. - Follow Up Care Primary Care Physician: Gonzales Pinto MD [Primary Care Provider] - Within 2 Weeks
--- NOTE | 2020-08-11 11:04 | PCM.DC.SUM ---
Discharge Date and Diagnosis - Problem List Patient Problems: Active and Suspected Problems (Last Reviewed 05/25/20 @ 00:[address] Elpidio Faust MD) 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 (Acute) Date of Admission: 08/09/20 Date of Discharge: 08/11/20 - Primary Discharge Diagnosis Acute Problems: Active Problems (Last Reviewed 05/25/20 @ 00:[address] Elpidio Faust MD) 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 (Acute) UTI - Secondary Discharge Diagnosis Chronic Problems: Chronic Problems (Last Reviewed 05/25/20 @ 00:[address] Elpidio Faust MD) HTN (hypertension) (Chronic) HLD (hyperlipidemia) (Chronic) GERD (gastroesophageal reflux disease) (Chronic) Anxiety and depression (Chronic) Chronic neuropathic pain (Chronic) Unilateral primary osteoarthritis, right knee (Chronic) Chronic pain following surgery or procedure (Chronic) Morbid obesity with BMI of 45.0-49.9, adult (Chronic) ROXIE (obstructive sleep apnea) (Chronic) says she got off CPAP_ when she had gastric bypass surgery ......wieghed 248 after bypass and was up to 312 recently but, has been losing weight, unintentional. 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 Patient was sent over here from the infectious disease physician's office due to a multidrug resistant urinary tract infection. Patient has had a history of chronic UTIs and patient had an ESBL Klebsiella. Patient continued to have abdominal pain. Patient presented to the emergency room and was seen by infectious disease. Patient was started on meropenem/vabornbactam for this. Patient will be on this for 10 days and then afterwards, will start on methenamine. Explained the patient that the methenamine will help create a hospital environment to help prevent urinary tract infections but will not totally eradicate her risk for development again. Patient will be discharged to [facility], [place] in stable condition. [] Patient Problems: Active and Suspected Problems (Last Reviewed 05/25/20 @ 00:[address] Elpidio Faust MD) 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 (Acute) - Physical Exam Vitals/I&O's: Vital Signs Temp Pulse Resp BP Pulse Ox 36.4 C L 65 18 137/71 H 95 08/11/20 08:05 08/11/20 09:14 08/11/20 08:05 08/11/20 08:05 08/11/20 08:05 Oxygen Delivery Method Room Air Weight: 134.717 kg Body Mass Index (BMI) 49.4 Intake and Output for Last 24 Hours 08/09/20 08/10/20 08/11/20 23:59 23:59 23:59 Intake Total 551.75 / 551.75 1390 / 1640 1071 / 1071 Output Total 400 / 400 1850 / 2500 1250 / 1250 Balance 151.75 / 151.75 -460 / -860 -179 / -179 General: Alert, No apparent distress HEENT: Atraumatic, Normocephalic Psych/Mental Status: Normal Affect, Appropriate Microbiology Past 72 Hours 08/09/20 16:25 Urine, Clean Catch Urine Culture - Preliminary Klebsiella pneumoniae sp pneum Current Medications Acetaminophen (Acetaminophen 325 Mg Tablet) 650 mg PO Q6H PRN PRN PRN Reason: Pain Score 1-10/Temp > 100.7 F Last Admin: 08/11/20 03:53 Dose: 650 mg Documented by: Hydrocodone Bitart/Acetaminophen (Hydrocodone Bitartrate/Apap 5/325 Tablet) 1 tablet PO BID PRN PRN Reason: Pain 1-10 or Fever Last Admin: 08/10/20 14:49 Dose: 1 tablet Documented by: Apixaban (Apixaban 5 Mg Tablet) 5 mg PO BID [facility] Last Admin: 08/11/20 10:03 Dose: 5 mg Documented by: Ascorbic Acid (Ascorbic Acid 500 Mg Tablet) 500 mg PO DAILY [facility] Last Admin: 08/11/20 10:11 Dose: 500 mg Documented by: Bupropion HCl (Bupropion (Xl) 150 Mg Tablet.Xl) 150 mg PO DAILY [facility] Last Admin: 08/11/20 10:06 Dose: 150 mg Documented by: Cholecalciferol (Cholecalciferol (Vit D3) 1,000 Unit (25mcg)) 1,000 unit PO DAILY [facility] Last Admin: 08/11/20 10:05 Dose: 1,000 unit Documented by: Divalproex Sodium (Divalproex Sodium 250 Mg Tablet) 500 mg PO BID [facility] Last Admin: 08/11/20 10:02 Dose: 500 mg Documented by: Duloxetine HCl (Duloxetine Hcl 60 Mg Capsule) 60 mg PO DAILY [facility] Last Admin: 08/11/20 10:01 Dose: 60 mg Documented by: Famotidine (Famotidine 20 Mg Tablet) 20 mg PO BID [facility] Last Admin: 08/11/20 10:07 Dose: 20 mg Documented by: Fluticasone Propionate (Fluticasone 0.05% 1 [place] Nasal.Sry) 2 spray NASAL DAILY [facility] Last Admin: 08/11/20 10:07 Dose: 2 spray Documented by: Furosemide (Furosemide 40 Mg Tablet) 60 mg PO DAILY [facility] Last Admin: 08/11/20 10:04 Dose: 60 mg Documented by: Gabapentin (Gabapentin 400 Mg Capsule) 400 mg PO TID [facility] Last Admin: 08/11/20 05:28 Dose: 400 mg Documented by: Sodium Chloride () 250 mls @ 15 mls/hr IV .[id number] PRN PRN Reason: Saline Flush Last Infusion: 08/11/20 05:28 Dose: 0 mls/hr Documented by: Meropenem/Vaborbactam 4 gm/ (Sodium Chloride) 250 mls @ 83.333 mls/hr IV Q8 [facility] Last Infusion: 08/11/20 08:29 Dose: Infused Documented by: Melatonin (Melatonin 3 Mg Tablet) 3 mg PO QHS PRN PRN PRN Reason: INSOMNIA Ondansetron HCl (Ondansetron 4 Mg/2 Ml Vial) 4 mg IV Q8H PRN PRN PRN Reason: NAUSEA/VOMITING Pantoprazole Sodium (Pantoprazole Sodium 40 Mg Tablet) 40 mg PO DAILY [facility] Last Admin: 08/11/20 10:04 Dose: 40 mg Documented by: Pravastatin Sodium (Pravastatin 40 Mg Tablet) 40 mg PO QHS [facility] Last Admin: 08/10/20 20:59 Dose: 40 mg Documented by: Primidone (Primidone 50 Mg Tablet) 100 mg PO QHS [facility] Last Admin: 08/10/20 21:01 Dose: 100 mg Documented by: Simethicone (Simethicone 80 Mg Tablet) 80 mg PO TIDCM [facility] Last Admin: 08/11/20 10:00 Dose: 80 mg Documented by: Sodium Chloride (0.9% Saline Lock 10 Ml Syringe) 10 - 40 ml IV UD PRN PRN Reason: SALINE FLUSH Last Admin: 08/10/20 14:49 Dose: 10 ml Documented by: Tolterodine Tartrate (Tolterodine Tartrate 4 Mg Cap.Sa) 4 mg PO DAILY [facility] Last Admin: 08/11/20 10:03 Dose: 4 mg Documented by: Discharge Diet: No Restrictions Home Medications: Medications to take at Discharge Cholecalciferol (VIT D3) [Vitamin D3] 1,000 unit PO DAILY 12/29/15 Duloxetine Hcl [Cymbalta] 60 mg PO DAILY 12/29/15 Pravastatin [Pravachol] 40 mg PO QHS 08/05/18 Apixaban [Eliquis] 5 mg PO BID 03/18/19 Fluticasone 0.05% [Flonase Nasal [place]] 2 spray NASAL DAILY 03/18/19 Furosemide [Lasix] 60 mg PO DAILY 03/18/19 Primidone 100 mg PO QHS 03/18/19 SimETHICONE [Mylicon] 80 mg PO TIDCM 03/18/19 Lactobacillus Acidophilus [Acidophilus] 1 ea PO DAILY 09/06/19 Mirabegron [Myrbetriq] 50 mg PO QHS 01/24/20 Famotidine [Pepcid] 20 mg PO BID 03/23/20 Gabapentin [Neurontin] 400 mg PO TID 07/09/20 Divalproex Sodium [Depakote] 500 mg PO BID #0 07/11/20 Acetaminophen [Tylenol] 500 mg PO DAILY 08/09/20 Bupropion HCl [Bupropion Xl] 150 mg PO DAILY 08/09/20 D-Mannose 1,000 mg PO BID 08/09/20 Estrogens, Conjugated [Premarin] 0.5 g VAGINAL WESA 08/09/20 Estrogens, Conjugated [Premarin] 0.5 mg VAGINAL QHS 08/09/20 Omeprazole 40 mg PO BID 08/09/20 Tolterodine Tartrate [Tolterodine Tartrate ER] 4 mg PO DAILY 08/09/20 Ascorbic Acid [Vitamin C] 500 mg PO BIDCM #180 tab 08/10/20 Meropenem/Vaborbactam [Vabomere 2 Gram Vial] 4 gm IV Q8H #24 vial 08/10/20 Methenamine Hippurate [Hiprex] 1 gm PO BID #180 tab 08/10/20 Acetaminophen [Tylenol Tablet] 650 mg PO Q6H PRN PRN tab 08/11/20 Hydrocodone/Acetaminophen [Hydrocodone-Acetamin 5-325 mg] 1 tab PO BID PRN 2 Days #4 tab 08/11/20 Following Prescriptions Were Given to Patient: Methenamine Hippurate [Hiprex] 1 gm PO BID #180 tab Prescription Printed Hydrocodone/Acetaminophen [Hydrocodone-Acetamin 5-325 mg] 1 tab PO BID PRN 2 Days #4 tab PRN Reason: Pain Score 6-10 Prescription Printed Meropenem/Vaborbactam [Vabomere 2 Gram Vial] 4 gm IV Q8H #24 vial Prescription Printed Ascorbic Acid [Vitamin C] 500 mg PO BIDCM #180 tab Prescription Printed Primary Care Physician: Gonzales Pinto MD [Primary Care Provider] - Within 2 Weeks Disposition: Group Home facility Minutes spent on discharge:: 32 Patient Condition:: Good Medical Necessity - Tobacco Use Smoking Status: Never smoker Meaningful Use Info Meaningful Use Diagnoses (Choose all that apply): None applicable Inpatient E&M: 63450 [facility] Hosp
--- NOTE | 2020-08-11 11:56 | PHA.DC.MR ---
Pharmacy Service has performed discharge medication reconciliation for this patient. The patient's discharge medication list was reviewed for discrepancies and discrepancies were resolved. Home Medications Cholecalciferol (VIT D3) [Vitamin D3] 1,000 unit PO DAILY 12/29/15 Duloxetine Hcl [Cymbalta] 60 mg PO DAILY 12/29/15 Pravastatin [Pravachol] 40 mg PO QHS 08/05/18 Apixaban [Eliquis] 5 mg PO BID 03/18/19 Fluticasone 0.05% [Flonase Nasal [place]] 2 spray NASAL DAILY 03/18/19 Furosemide [Lasix] 60 mg PO DAILY 03/18/19 Primidone 100 mg PO QHS 03/18/19 SimETHICONE [Mylicon] 80 mg PO TIDCM 03/18/19 Lactobacillus Acidophilus [Acidophilus] 1 ea PO DAILY 09/06/19 Mirabegron [Myrbetriq] 50 mg PO QHS 01/24/20 Famotidine [Pepcid] 20 mg PO BID 03/23/20 Gabapentin [Neurontin] 400 mg PO TID 07/09/20 Divalproex Sodium [Depakote] 500 mg PO BID #0 07/11/20 Acetaminophen [Tylenol] 500 mg PO DAILY 08/09/20 Bupropion HCl [Bupropion Xl] 150 mg PO DAILY 08/09/20 D-Mannose 1,000 mg PO BID 08/09/20 Estrogens, Conjugated [Premarin] 0.5 g VAGINAL WESA 08/09/20 Estrogens, Conjugated [Premarin] 0.5 mg VAGINAL QHS 08/09/20 Omeprazole 40 mg PO BID 08/09/20 Tolterodine Tartrate [Tolterodine Tartrate ER] 4 mg PO DAILY 08/09/20 Ascorbic Acid [Vitamin C] 500 mg PO BIDCM #180 tab 08/10/20 Meropenem/Vaborbactam [Vabomere 2 Gram Vial] 4 gm IV Q8H #24 vial 08/10/20 Methenamine Hippurate [Hiprex] 1 gm PO BID #180 tab 08/10/20 Acetaminophen [Tylenol Tablet] 650 mg PO Q6H PRN PRN tab 08/11/20 Hydrocodone/Acetaminophen [Hydrocodone-Acetamin 5-325 mg] 1 tab PO BID PRN 2 Days #4 tab 08/11/20
--- NOTE | 2020-08-11 12:45 | CASEMGMT ---
Social Work Note Pt is medically ready for discharge today to [facility]. RUKHSANA faxed completed discharge paperwork to [facility] including transfer to extended care facility, signed medication list, any scripts, COVID test and COVID screening tool, and convalescent 7000. Original in SNF folder and copy on pt's chart. RUKHSANA completed convalescent 7000 in [facility]. Original in SNF folder and copy on pt's chart. RUKHSANA spoke with RN, pt can transport via wheelchair. RUKHSANA accessed trip assist and earliest Physician's can transport pt is 2:00pm. Transportation form completed and placed on SNF folder and copy on pt's chart. RUKHSANA updated pt and RN on discharge and transportation time. RUKHSANA placed a call to Eva at [facility] and left her a message updating her on discharge and transportation time. RUKHSANA placed a call to pt's CM Brook Schwarz and updated her that pt will discharge to [facility] today. RUKHSANA faxed discharge summary to [facility]. RUKHSANA then received call from Shani in Pharmacy asking when pt is going to be discharged as they have an unopened box of pt's antibiotics and wanted to know if they had to open box or not. RUKHSANA placed a call to Shani and left message updating her on transportation time. Plan: [facility] skilled today with Physician's transporting pt at 2:00pm via wheelchair juancho Martinez MSW, BUCKLE ASSEMBLER
--- NOTE | 2020-08-11 13:43 | NURSING ---
REPORT GIVEN TO MADDY @ [facility]
--- NOTE | 2020-08-11 14:22 | PCM.PN.ID ---
Patient Problems: Active and Suspected Problems (Last Reviewed 05/25/20 @ 00:[address] Elpidio Faust MD) 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 (Acute) Subjective: Feeling well, pain resolved, no fever - Physical Exam Vitals/I&O's: Vital Signs Temp Pulse Resp BP Pulse Ox 97.5 F L 65 18 137/71 H 95 08/11/20 08:05 08/11/20 09:14 08/11/20 08:05 08/11/20 08:05 08/11/20 08:05 Oxygen Delivery Method Room Air Weight: 134.717 kg Body Mass Index (BMI) 49.4 Intake and Output for Last 24 Hours 08/09/20 08/10/20 08/11/20 23:59 23:59 23:59 Intake Total 551.75 / 551.75 1390 / 1640 1551 / 1551 Output Total 400 / 400 1850 / 2500 1550 / 1550 Balance 151.75 / 151.75 -460 / -860 General: Alert, Cooperative, No apparent distress Lungs: Clear to auscultation, Normal air movement Cardiovascular: Regular rate, Regular Rhythm Abdomen: Soft, Non Tender, Non-Distended Skin: No rashes Microbiology Past 72 Hours 08/11/20 11:15 Mucosa - Nose SARS-CoV-2 Antigen (Rapid) - Final 08/09/20 16:25 Urine, Clean Catch Urine Culture - Preliminary Klebsiella pneumoniae sp pneum Medical Necessity - Tobacco Use Smoking Status: Never smoker Route of nutrition/ use of supplements: [] Nutritional Intake: [] IV Site: [] Adler Catheter: [] - Assessment/Plan Antibiotics: [] Assessment/Plan: [] XDR klebs pyelonephritis - feeling better today, on vabomere. Plan on 10 days total of klebs coverage, stop date 08/19/20. Wrote rx for vabomere at discharge as well as methenamine and vit C bid for group home prevention. Will follow as needed, d/w director of casework department and pharmacy.
== END 2020-08-11 14:05 | disposition skilled nursing facility (03) | DRG 690 ==
LOC: ED 16:12 → MS3 17:56
PROVIDERS: Admitting Provider Family Medicine; Emergency Provider Student in an Organized Health Care Education/Training Program; PCP Family Medicine
DX: N12 Tubulo-interstitial nephritis, not specified as acute or chronic (principal); Z16.19 Resistance to other specified beta lactam antibiotics; Z68.42 Body mass index [BMI] 45.0-49.9, adult; Z16.24 Resistance to multiple antibiotics; Z68.43 Body mass index [BMI] 50.0-59.9, adult; B96.1 Klebsiella pneumoniae [K. pneumoniae] as the cause of diseases classified elsewhere; E11.42 Type 2 diabetes mellitus with diabetic polyneuropathy; Z98.84 Bariatric surgery status; F32.9 Major depressive disorder, single episode, unspecified; F41.9 Anxiety disorder, unspecified; I10 Essential (primary) hypertension; E78.5 Hyperlipidemia, unspecified; E66.01 Morbid (severe) obesity due to excess calories; Z79.01 Long term (current) use of anticoagulants; Z82.49 Family history of ischemic heart disease and other diseases of the circulatory system; Z86.718 Personal history of other venous thrombosis and embolism; Z87.440 Personal history of urinary (tract) infections; Z90.710 Acquired absence of both cervix and uterus; Z96.659 Presence of unspecified artificial knee joint; K21.9 Gastro-esophageal reflux disease without esophagitis
CPT/HCPCS: 36415; 80048; 80053; 81001; 83605; 85025; 87040; 87077; 87086; 87088; 87186; 87426; 97161; 97166; 97802; 99285; J7040; J7050; A4216; J0278; J2186; J2405

== ENCOUNTER 2020-08-20 21:21 | Observation (INO) | payer MEDICARE, MEDICAID, SELFPAY ==
[2020-08-09 18:34] VITALS: BMI 49.4
[2020-08-20 21:22] VITALS: PULSE 74; RESP 18; TEMP 36.8; O2SAT 95; BMI 50.8
[2020-08-20 21:25] VITALS: BP 139/105
--- NOTE | 2020-08-20 21:52 | CT_ITS ---
STUDY: CT ABDOMEN AND PELVIS WITH CONTRAST REASON FOR EXAM: Female, 75 years old. abd pain -- IV PO Contrast RADIATION DOSAGE (If Supplied By Facility): CTDIvol = ( 20.15 ) mGy, DLP = ( 1335.77 ) mGycm TECHNIQUE: Transaxial images were obtained from the dome of the diaphragm to the symphysis pubis with oral contrast. Oral and amp; IV Gastrografin and amp; 100mL Isovue-370 was administered. Sagittal and coronal images were reconstructed. Individualized dose optimization techniques were used for this CT. COMPARISON: CT abdomen pelvis from 08/27/2019 FINDINGS: The visualized lung bases are unremarkable. The visualized portions of the heart are within normal limits. Normal liver. Gallbladder has been surgically removed.. Several tiny splenic cystic hypodensities which are too small to characterize. Normal pancreas. Normal bilateral adrenal glands. There is a nonobstructive right renal calculus measuring approximately 7 mm.. Normal left kidney. Status post prior gastric bypass surgery. There is a small hiatal hernia. Normal small intestine. There is non-visualization of the appendix. There is a large amount of retained stool throughout the colon. Correlate for constipation. Normal abdominal aorta. There is an IVC filter in place. Normal retroperitoneum. Normal urinary bladder. There are diffuse degenerative changes of the visualized lumbar spine. Multiple vertebral body hemangiomas again visualized. The left rectus muscle is enlarged and hyperdense measuring approximately 7.3 cm in greatest axial dimension. There is a small fat and small bowel containing ventral abdominal wall hernia. No bowel obstruction. CT/Abdomen/Pelvis WITH Contrast IMPRESSION: Hyperdense enlargement of the left rectus muscle most consistent with intramuscular hematoma formation. Correlate for history of trauma. Consider close follow-up CT abdomen to assess resolution. Additional stable chronic findings as described. Electronically Signed: Bobby Ramesh MD at 0:23 EST Tel , Service support ,
--- NOTE | 2020-08-20 21:54 | ED.DCSUM_ITS ---
- ER Visit Summary Date of Service: 08/20/20 Chief Complaint: Abdominal pain History of Present Illness: The patient is a 75 F presenting with abdominal pain. She states this started on Friday. She complains of left upper and left lower quadrant pain. She has not had a bowel movement in the past 2 days. She denies nausea or vomiting. Denies urinary complaints. She had an x-ray taken at the [facility] which was unremarkable per patient. She denies fever. Denies chest pain or shortness of breath. She has history of multidrug- resistant UTIs due to recent IV antibiotics. Denies other complaints. Physical Examination: Vitals are stable. Patient is afebrile. Alert no acute distress. HEENT exam is unremarkable. Neck is supple. Lungs are clear and equal bilaterally. Heart is regular rate and rhythm. Abdomen is soft left upper and lower quadrant tenderness Extremities are unremarkable. Skin is warm and dry. No focal neurologic deficit. Remainder of exam is unremarkable. Emergency Department Course and Treatment: Patient was given morphine, Zofran. CBC shows hemoglobin 10.8. Chemistries unremarkable. Liver lipase normal. Urinalysis shows over 100 white blood cells, positive leukocytes. Urine culture was sent. CT abdomen pelvis shows hyperdense enlargement of the left rectus muscle most consistent with intramuscular hematoma formation. Correlate for history of trauma. Consider close follow-up CT abdomen to assess resolution. Additional stable chronic findings. Patient was given additional dose of morphine. Discussed with hospitalist for admission. Disposition: Admission Impression: Left rectus muscle hematoma This note was generated with [facility] dictation software. It may contain incorrect words, spelling, and punctuation that were not noted in review of the chart prior to signing ED Disposition - Plan for ED Patient: Referrals: Gonzales Pinto MD [Primary Care Provider] -
[2020-08-20 21:58] LABS: Absolute Lymphocyte Count 1.28 X10^3/uL (0.83-4.51); Absolute Neutrophil Count 4.5 X10^3/uL (2.0-7.7); Basophil# 0.04 X10^3/uL; Basophil% 0.6 % (0-1); Eosinophil# 0.15 X10^3/uL; Eosinophils% 2.3 % (0-5); Hematocrit 35.6 % (37-47); Hemoglobin 10.8 g/dL (12.0-15.0); Lymphocyte # 1.28 X10^3/ul (4.0); Lymphocyte % 19.5 % (19-41); Mean Corp Hgb Conc 30.3 g/dL (32-36); Mean Corpuscular Hgb 27.9 pg (27.0-32.0); Mean Platelet Vol. 10.3 fl (6.2-12.0); Monocyte# 0.61 X10^3/uL; Monocyte% 9.3 % (0-10); NRBC Flagged by Analyzer 0 % (0-5); Neutrophil # 4.47 X10^3/uL (2.7-7.7); Neutrophil % 67.8 % (47-70); Platelet Count 226 K/mm3 (150-450); RBC Distribution Width CV 14.6 % (11.6-14.6); RBC Distribution Width SD 49.2 fl (35.1-43.9); Red Blood Count 3.87 M/mm3 (4.2-5.4); White Blood Count 6.6 K/mm3 (4.4-11.0)
[2020-08-20] MEDS: Morphine 4 MG/ML Syringe IV (22:03)
[2020-08-20] MEDS: Ondansetron 4 MG/2 ML Vial IV (22:03)
[2020-08-20 22:10] LABS: ALB/GLOB Ratio 0.9 RATIO (0.9-2.4); AST(SGOT) 26 U/L (15-37); Alanine Aminotransfer ALT/SGPT 28 U/L (13-56); Alkaline Phosphatase 88 U/L (45-117); Anion Gap 6 (5-15); BUN 17 mg/dL (7-18); BUN/Creat Ratio 19.7 RATIO (10-20); Calcium,Total 8.7 mg/dL (8.5-10.1); Chloride 101 mmol/L (98-107); Creatinine, Serum 0.86 mg/dL (0.55-1.02); EST Glomerular Filtration Rate 68 mL/min (>60); Est Glom Filt Rate - Afr Amer 82 mL/min (>60); Estimated Creatinine Clearance 51.64 ml/min; Globulin 3.4 g/dL (2.2-4.2); Glucose 107 mg/dL (74-106); Lipase 74 U/L (73-393); Potassium 5.1 mmol/L (3.5-5.1); Protein, Total 6.4 g/dL (6.4-8.2); Sodium Level 136 mmol/L (136-145)
[2020-08-20 22:23] LABS: Bacteria 0 SEEN /hpf (None Seen); Mucous, Urine 0 SEEN /hpf (<or=2+)
[2020-08-20 22:26] LABS: Color, Urine Yellow (Yellow); Glucose, Dipstick Normal (Normal); Ketone-Dipstick Negative (Negative); Leukocyte Esterase-Dipstick 500 /ul (Negative); Nitrite-Dipstick Negative (Negative); Occult Blood-Urine 25 /ul (Negative); Protein-Dipstick 30 mg/dl (Negative); Urine Bilirubin Dipstick Negative (Negative); Urine Clarity Cloudy (Clear); Urine Urobilinogen Normal (Normal)
[2020-08-20 22:40] LABS: Red Blood Cells-Urine 0-5 SEEN /hpf (0-5); Squamous Epithelial Cells - UA 0-5 SEEN /hpf (5-10); White Blood Cells >100 SEEN /hpf (0-5)
[2020-08-21] VITALS (10 sets, daily range): BP systolic 90–168; BP diastolic 33–97; PULSE 77–89; RESP 15–18; TEMP 36.3–38.1; O2SAT 93–99; BMI 49.9
--- NOTE | 2020-08-21 00:33 | HP.PCM_ITS ---
Problem List (1) Rectus sheath hematoma Status: Acute Qualifiers: Encounter type: initial encounter Qualified Code(s): S30.1XXA - Contusion of abdominal wall, initial encounter (2) Urinary tract infection Status: Resolved Qualifiers: Urinary tract infection type: site unspecified (3) HTN (hypertension) Status: Chronic Qualifiers: Hypertension type: essential hypertension Qualified Code(s): I10 - Essential (primary) hypertension (4) HLD (hyperlipidemia) Status: Chronic Qualifiers: Hyperlipidemia type: unspecified Qualified Code(s): E78.5 - Hyperlipidemia, unspecified (5) GERD (gastroesophageal reflux disease) Status: Chronic Qualifiers: Esophagitis presence: esophagitis presence not specified Qualified Code(s): K21.9 - Gastro-esophageal reflux disease without esophagitis (6) Anxiety and depression Status: Chronic (7) Chronic neuropathic pain Status: Chronic (8) Morbid obesity with BMI of 45.0-49.9, adult Status: Chronic (9) ROXIE (obstructive sleep apnea) Status: Chronic Comment: says she got off CPAP_ when she had gastric bypass surgery ......wieghed 248 after bypass and was up to 312 recently but, has been losing weight, unintentional. 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 She describes the pain as dull constant 6-7 out of 10 in severity however with palpation or certain movements rates it sharp 10 out of 10. She specifically notes it is more severe and sharp with any palpation during evaluation. Work-up in the ED included T 98.2, heart 74, BP 139/105, respiratory rate 18, 95% on room air, CBC was WBC 6.6, hemoglobin 10.8, platelet 226 without marked shift, CMP unremarkable aside glucose 107, lipase 74, unremarkable hepatic profile, urinalysis with specific gravity 1.010, protein 30, occult blood 25, negative nitrite, 500 leukocyte esterase, greater than 100 urine WBCs with no urine bacteria noted, urine culture pending per ED, CT abdomen and pelvis hyperdense enlargement of the left rectus muscle most consistent with intramuscular hematoma with other stable chronic findings with measurement of hyperdensity likely hematoma 7.3 cm in its greatest axial dimension. In the ED patient ministered normal saline, Zofran, morphine. Past Medical History Past Medical History (Chronic Problems): Chronic Problems (Last Reviewed 05/25/20 @ 00:[address] Elpidio Faust MD) HTN (hypertension) (Chronic) HLD (hyperlipidemia) (Chronic) GERD (gastroesophageal reflux disease) (Chronic) Anxiety and depression (Chronic) Chronic neuropathic pain (Chronic) Unilateral primary osteoarthritis, right knee (Chronic) Chronic pain following surgery or procedure (Chronic) Morbid obesity with BMI of 45.0-49.9, adult (Chronic) ROXIE (obstructive sleep apnea) (Chronic) says she got off CPAP_ when she had gastric bypass surgery ......wieghed 248 after bypass and was up to 312 recently but, has been losing weight, unintentional. 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 Elpidio Faust MD) Arthritis M19.90 Bilateral headaches R51 Carpal tunnel syndrome G56.00 Cataracts, both eyes H26.9 Closed left arm fracture S42.302A Diabetes E11.9 FHx: cholecystectomy Z84.89 Heart disease I51.9 History of gallstones Z87.19 Neuropathy G62.9 Osteoarthritis M19.90 Polycystic ovaries E28.2 Hypertension I10 Allergies ampicillin [From Unasyn] Allergy (Severe, Verified 08/20/20 21:22) Other Blisters on tongue /throat difficulty breathing sore tongue/throat warfarin sodium [From Coumadin] Allergy (Severe, Verified 08/20/20 21:22) Low red blood cells Home Medications: Ambulatory Orders Medication Instructions Recorded Cholecalciferol (VIT D3) [Vitamin 1,000 unit PO DAILY 12/29/15 D3] Duloxetine Hcl [Cymbalta] 60 mg PO DAILY 12/29/15 Pravastatin [Pravachol] 40 mg PO QHS 08/05/18 Apixaban [Eliquis] 5 mg PO BID 03/18/19 Fluticasone 0.05% [Flonase Nasal 2 spray NASAL DAILY 03/18/19 [place]] Furosemide [Lasix] 60 mg PO DAILY 03/18/19 Primidone 100 mg PO QHS 03/18/19 SimETHICONE [Mylicon] 80 mg PO TIDCM 03/18/19 Lactobacillus Acidophilus 1 ea PO DAILY 09/06/19 [Acidophilus] Mirabegron [Myrbetriq] 50 mg PO QHS 01/24/20 Famotidine [Pepcid] 20 mg PO BID 03/23/20 Gabapentin [Neurontin] 400 mg PO TID 07/09/20 Divalproex Sodium [Depakote] 500 mg PO BID #0 07/11/20 Acetaminophen [Tylenol] 500 mg PO DAILY 08/09/20 Bupropion HCl [Bupropion Xl] 150 mg PO DAILY 08/09/20 D-Mannose 1,000 mg PO BID 08/09/20 Estrogens, Conjugated [Premarin] 1 g VAGINAL WESA 08/09/20 Omeprazole 40 mg PO BID 08/09/20 Ascorbic Acid [Vitamin C] 500 mg PO BIDCM #180 tab 08/10/20 Methenamine Hippurate [Hiprex] 1 gm PO BID #180 tab 08/10/20 Hydrocodone/Acetaminophen 1 tab PO BID PRN 2 Days #4 tab 08/11/20 [Hydrocodone-Acetamin 5-325 mg] Acetaminophen [Tylenol Tablet] 650 mg PO Q4H PRN PRN 08/20/20 Acetaminophen [Tylenol] 650 mg RECTAL Q4H PRN PRN 08/20/20 Bisacodyl 10 mg RC X1 PRN 08/20/20 Dextrose [Glucose Gel] 1 dose PO X1 PRN 08/20/20 Glucagon,Human Recombinant 1 mg IJ X1 PRN 08/20/20 [Glucagon Emergency Kit] Guaifenesin [Robitussin] 10 ml PO Q4H PRN PRN 08/20/20 Mag Hydrox/Aluminum Hyd/Simeth 30 ml PO Q4H PRN PRN 08/20/20 [Antacid Suspension] Magnesium Hydroxide [Milk Of 30 ml PO DAILY PRN PRN 08/20/20 Magnesia] Na Phos,M-B/Na Phos,Di-Ba [Fleet 120 ml RECTAL X1 08/20/20 Enema] Oxybutynin Chloride [Oxybutynin 10 mg PO DAILY 08/20/20 Chloride ER] Polyethylene Glycol 3350 [Miralax] 17 gm PO DAILY 08/20/20 Surgical History: Surgical History (Last Reviewed 05/25/20 @ 01:[address] Elpidio Faust MD) History of carpal tunnel surgery Z98.890 History of hysterectomy Z90.710 Total knee replacement status Z96.659 Surgical History: cholecystectomy, gastric bypass, hysterectomy, tonsillectomy, - - Gastric bypass, surgery for left arm fracture Psychiatric History: No pertinent psych hx HOOK PULLER History: No pertinent HOOK PULLER history, dysfunctional uterine bld - s/p hysterectomy Lives: Residential Smoking Status: Never smoker Tobacco Use: Non-smoker Alcohol: None Drugs: None - *Family History Paternal Family History: Family History (Last Reviewed 05/25/20 @ 00:[address] Elpidio Faust MD) Other Heart disease High cholesterol Hypertension Myocardial infarction History Items: Cancer, Heart Disease Maternal Family History: Family History (Last Reviewed 05/25/20 @ 00:[address] Elpidio Faust MD) Other Heart disease High cholesterol Hypertension Myocardial infarction History Items: Heart Disease, Hypertension Review of Systems Constitutional: Reports: Anorexia, Malaise, Weakness, Fatigue. Denies: Chills, Fever, Weight Change HEENT: Denies: Head Aches, Sinus Congestion, Sinus Drainage Cardiovascular: Denies: Chest Pain, Palpitations Respiratory: Denies: Cough, Shortness of breath at rest, Sputum production Gastrointestinal: Reports: Abdominal Pain, Constipation. Denies: Diarrhea, Nausea, Vomiting Genitourinary: Denies: Dysuria Musculoskeletal: Denies: Joint Pain, Joint Tenderness Skin: Denies: Rash, Wounds Neurological: Denies: Numbness, Tingling, Focal weakness Psychiatric: Denies: Anxiety, Depression, Homicidal Ideations, Suicidal Ideations Hematologic/ Lymphatic: Denies: Easy Bruising, Easy Bleeding VTE Information - Inpt Only VTE Present on Admission: No VTE Mechan Device Prophylaxis: SCD's VTE Pharm Prophylaxis ordered?: No Reason prophylaxis not ordered:: Medical Contraindication Patient Problems: Active and Suspected Problems (Last Reviewed 05/25/20 @ 00:[address] Elpidio Faust MD) Rectus sheath hematoma (Acute) Subjective: Patient laying in the ED bed, uncomfortable appearing, notes ongoing left sided lower abdominal quadrant pain. Objective: Physical Examination: General: awake, alert, oriented x 3 and cooperative, laying in the ED bed, fatigued, notes ongoing left lower quadrant pain. Skin: normal color, turgor, no icterus, cyanosis. HEENT: AT/NC, EOMI, PERRLA, moderately dry MM, no carotid bruits or JVD noted. Lungs: Diminished breath sounds, greater bases, distant likely given habitus, moderate effort, no rales, ronchi or wheezing. Heart: Mildly tachycardic with regular rhythm; no gallop, rub audible. Abdomen: soft, morbidly obese, significant left lower quadrant tenderness palpation with voluntary guarding, difficult to discern distention given habitus, more firm to the left lower quadrant likely the rectus sheath hematoma, unable to assess HSM well given habitus. Extremities: no cyanosis, clubbing, or edema. Neurological: patient awake, alert, oriented as noted; cognitive function intact; pupils equally reactive to light and accomodation; cranial nerves II-XII grossly normal, moving all 4 extremities, no focal deficits, strength severely global decrease secondary to acute presentation. Psychiatric: affect appears fatigued, uncomfortable, no acute evidence of depressive or anxiety feelings. - Physical Exam Vitals/I&O's: Vital Signs Temp Pulse Resp BP Pulse Ox 98.2 F 83 15 168/53 H 94 08/20/20 21:22 08/21/20 00:12 08/21/20 00:12 08/21/20 00:12 08/21/20 00:12 Oxygen Delivery Method Room Air Weight: 305 lb 8.971 oz Body Mass Index (BMI) 50.8 Intake and Output for Last 24 Hours 08/19/20 08/20/20 08/21/20 23:59 23:59 23:59 Intake Total 500 / 500 Balance 500 / 500 Laboratory Results 08/20/20 21:30: WBC 6.6, RBC 3.87 L, Hgb 10.8 L, Hct 35.6 L, MCV 92.0, MCH 27.9, MCHC 30.3 L, RDW Std Deviation 49.2 H, RDW Coeff of Chani 14.6, Plt Count 226, MPV 10.3, Immature Gran % (Auto) 0.500, Neut % (Auto) 67.8, Lymph % (Auto) 19.5, [place] % (Auto) 9.3, Eos % (Auto) 2.3, Baso % (Auto) 0.6, Absolute Neuts (auto) 4.5, Absolute Lymphs (auto) 1.28, Nucleated RBC % 0 08/20/20 21:30: Sodium 136, Potassium 5.1, Chloride 101, Carbon Dioxide 29.0, Anion Gap 6, BUN 17, Creatinine 0.86, Estim Creat Clear Calc 51.64, Est GFR (MDRD) Af Amer 82, Est GFR (MDRD) Non-Af 68, BUN/Creatinine Ratio 19.7, Glucose 107 H, Calcium 8.7, Total Bilirubin 0.50, AST 26, ALT 28, Alkaline Phosphatase 88, Total Protein 6.4, Albumin 3.0 L, Globulin 3.4, Albumin/Globulin Ratio 0.9, Lipase 74 08/20/20 22:18: Urine Color Yellow, Urine Clarity Cloudy, Urine pH 8.0, Ur Specific [place] 1.010, Urine Protein 30 H, Urine Glucose (UA) Normal, Urine Ketones Negative, Urine Occult Blood 25 H, Urine Nitrite Negative, Urine Bilirubin Negative, Urine Urobilinogen Normal, Ur Leukocyte Esterase 500 H, Urine RBC 0-5 SEEN, Urine WBC >100 SEEN, Ur Squamous Epith Cells 0-5 SEEN, Urine Bacteria 0 SEEN, Urine Mucus 0 SEEN Assessment/Plan All Active Problems (Last Reviewed 05/25/20 @ 00:[address] Elpidio Faust MD) Cystitis (Acute) 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 (Acute) Rectus sheath hematoma (Acute) Urinary tract infection (Resolved) Abdominal pain (Resolved) The patient is a 75 y/o F from SNF w/ PMHx: Hx ROXIE not on CPAP, OA, HTN, HLD, Diabetes mellitus type II, Chronic headaches, Morbid obesity, BPH, Anxiety and Depression, GERD, Hx DVT on eliquis with IVCF who presents to the [facility] ED on 08/20/20 with history of ongoing left sided upper and loewr quadrant discomfort, cramping with no recent bowel movement over the last several days with AL/SNF unremarkable KUB prompting ED referral. 1. Left-sided acute abdominal pain secondary to left rectus muscle intramuscular hematoma: We will admit to medical surgical floor, will hold patient home Eliquis regimen given acute presentation, given intractable pain will have as needed pain regimen, as needed antiemetic regimen, continue to closely monitor H&H's, given size and anticoagulation status upon presentation will consult Dr. Ruiz. 2. Recent Complicated Klebsiella UTI, notable resistance patterns: UA upon ED evaluation remarkable with notable leukocyte esterase and urine WBCs greater than 100 although no urine bacteria, 08/09/2020 UCX with Klebsiella with significant resistance patterns, just completed 10 day course meropenem regimen with last dose 08/20/20. 3. Hypertension: Continue home regimen including Lasix with hold parameters especially given presentation, PRN hydralazine. 4. Hyperlipidemia: Continue home statin regimen. 5. Anxiety and depression: We will continue patient home bupropion mirabegron and Cymbalta regimen. 6. Morbid Obesity: Weight loss and lifestyle changes encouraged, nutrition consulted. 7. GERD: We will continue patient home famotidine regimen. 8. History of DVT: Status post IVC filter placement history, on Eliquis regimen at home, given acute presentation as noted #1 we will hold Eliquis. 9. History of Diabetes mellitus type II: Notes resolution following previous bypass surgery, 07/09/20 HgbA1c 5.2%, encourage continued diet/lifestyle changes, maintain on ADA diet, hold on accu checks and ISS given recent A1c as noted. 10. History of ROXIE: Notes off CPAP since bypass, encouraged follow-up especially given elevated BMI. 11. Chronic severe bilateral lower extremity neuropathy: We will continue patient home gabapentin regimen. She notes she takes also the depakote for her neuropathy, denies usage of this regimen for seizure or bipolar disorder. 12. DVT prophylaxis: SCDs, will hold patient home Eliquis regimen given acute presentation as noted #1. 13. CODE status: Patient TERI is [place]. Living will is not in place and she declined any assistance noting that her family knows exactly what she wants and does not want. Discussed CODE status at length including difference between FULL code, DNR-CCA and DNR-CC status. Following discussions about the differences in these status, requested Full Code status. At SNF she was listed as DNR-CC thus again confirmed Full Code status. Advanced Care Planning Face to Face Time: 16 minutes. OBSV E&M: 91806 Initial observation care L3 Procedures: 20149 Advncd Care Plan 30 Min
--- NOTE | 2020-08-21 00:44 | ED.RN ---
PT ECF NOTIFIED OF PT ADMISSION.
[2020-08-21] MEDS: Morphine 4 MG/ML Syringe IV ×2 (00:56→04:35)
[2020-08-21] MEDS: Senna/Docusate Sodium 1 Tablet 2 TABLET PO (02:31)
[2020-08-21] MEDS: oxyCODONE 5 MG Tablet PO ×4 (02:32→23:10)
[2020-08-21] MEDS: Psyllium 1 PACKET PO (02:32)
[2020-08-21] MEDS: Acetaminophen 325 MG Tablet 650 MG PO ×4 (02:32→21:12)
[2020-08-21 04:31] LABS: Hematocrit 31.6 % (37-47); Hemoglobin 9.5 g/dL (12.0-15.0)
[2020-08-21] MEDS: 0.9% Saline Lock 10 ML Syringe IV ×2 (04:35→08:05)
[2020-08-21 04:47] LABS: ALB/GLOB Ratio 0.8 RATIO (0.9-2.4); AST(SGOT) 64 U/L (15-37); Alanine Aminotransfer ALT/SGPT 39 U/L (13-56); Albumin, Serum 2.6 g/dL (3.2-5.0); Alkaline Phosphatase 88 U/L (45-117); Anion Gap 4 (5-15); BUN 15 mg/dL (7-18); BUN/Creat Ratio 20.2 RATIO (10-20); Calcium,Total 8.1 mg/dL (8.5-10.1); Chloride 102 mmol/L (98-107); Creatinine, Serum 0.74 mg/dL (0.55-1.02); EST Glomerular Filtration Rate 81 mL/min (>60); Est Glom Filt Rate - Afr Amer 98 mL/min (>60); Estimated Creatinine Clearance 44.41 ml/min; Globulin 3.1 g/dL (2.2-4.2); Glucose 99 mg/dL (74-106); Potassium 4.6 mmol/L (3.5-5.1); Protein, Total 5.7 g/dL (6.4-8.2); Sodium Level 136 mmol/L (136-145)
[2020-08-21] MEDS: Gabapentin 400 MG Capsule PO ×3 (06:16→21:13)
--- NOTE | 2020-08-21 07:33 | PCM.PN.BLA ---
Progress Note Patient was seen and examined. Her pain has improved to 4 out of 10, worse when her abdomen is palpated. She cannot remember what will happen. She denied any trauma to her abdomen or falls. Denied any dizziness or palpitation Abdominal exam shows soft abdomen, slight firmness around the area of the rectus sheath Vitals reviewed, hemoglobin is stable Will continue to monitor HH. STROKE Vital Signs/Narrative: Vital Signs Temp Pulse Resp BP Pulse Ox 08/21/20 05:12 98.1 F 82 18 139/61 H 96
--- NOTE | 2020-08-21 07:36 | CON.PCM_ITS ---
- Consult Date of Consult: 08/21/20 - Reason for Consult Chief Complaint: abdominal pain History of Present Illness: 75 y/o obese WF presents with complaint of abdominal pain CT scan - The left rectus muscle is enlarged and hyperdense measuring approximately 7.3 cm in greatest axial dimension The patient is on eliquis for history of DVT and also has IVC filter in place She notes generalized abdominal pain, is also noted to have large amount of stool in colon, and states that pain ranges from 7 - 10 on a scale of 1-10. She denies fevers. She denies changes in appetite. Serum Hgb is 10.8 (previous Hgb - she runs around 10-11). VSS in ED. Past Medical History: HTN (hypertension) (Chronic) HLD (hyperlipidemia) (Chronic) GERD (gastroesophageal reflux disease) (Chronic) Anxiety and depression (Chronic) Chronic neuropathic pain (Chronic) Unilateral primary osteoarthritis, right knee (Chronic) Chronic pain following surgery or procedure (Chronic) Morbid obesity with BMI of 45.0-49.9, adult (Chronic) ROXIE (obstructive sleep apnea) (Chronic) says she got off CPAP_ when she had gastric bypass surgery ......wieghed 248 after bypass and was up to 312 recently but, has been losing weight, unintentional. 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) Segmental and somatic dysfunction of pelvic region (Chronic) Facet arthropathy, lumbar (Chronic) Segmental and somatic dysfunction of thoracic region (Chronic) Segmental and somatic dysfunction of lumbar region (Chronic) History of DVT (deep vein thrombosis) (Chronic) recurrent History of gastric bypass (Chronic) Shortness of breath on exertion (Chronic) Past Surgical History: tonsillectomy cataract surgery bariatric gastric surgery 2010 hysterectomy right and left knee surgeries carpal tunnel surgery cholecystectomy Medications: Cholecalciferol (VIT D3) [Vitamin 1,000 unit PO DAILY Duloxetine Hcl [Cymbalta] 60 mg PO DAILY 12/29/15 Pravastatin [Pravachol] 40 mg PO QHS 08/05/18 Apixaban [Eliquis] 5 mg PO BID 03/18/19 Fluticasone 0.05% [Flonase Nasal 2 spray NASAL DAILY Furosemide [Lasix] 60 mg PO DAILY Primidone 100 mg PO QHS SimETHICONE [Mylicon] 80 mg PO TIDCM Lactobacillus Acidophilus 1 ea PO DAILY Mirabegron [Myrbetriq] 50 mg PO QHS 01/24/20 Famotidine [Pepcid] 20 mg PO BID 03/23/20 Gabapentin [Neurontin] 400 mg PO TID 07/09/20 Divalproex Sodium [Depakote] 500 mg PO BID #0 07/11/20 Acetaminophen [Tylenol] 500 mg PO DAILY 08/09/20 Bupropion HCl [Bupropion Xl] 150 mg PO DAILY 08/09/20 D-Mannose 1,000 mg PO BID 08/09/20 Estrogens, Conjugated [Premarin] 1 g VAGINAL WESA 08/09/20 Omeprazole 40 mg PO BID 08/09/20 Ascorbic Acid [Vitamin C] 500 mg PO BIDCM #180 tab 08/10/20 Methenamine Hippurate [Hiprex] 1 gm PO BID #180 tab 08/10/20 Hydrocodone/Acetaminophen 1 tab PO BID PRN 2 Days #4 tab Acetaminophen [Tylenol Tablet] 650 mg PO Q4H PRN PRN 08/20/20 Acetaminophen [Tylenol] 650 mg RECTAL Q4H PRN PRN 08/20/20 Bisacodyl 10 mg RC X1 PRN 08/20/20 Dextrose [Glucose Gel] 1 dose PO X1 PRN 08/20/20 Glucagon,Human Recombinant 1 mg IJ X1 PRN 08/20/20 [Glucagon Emergency Kit] Guaifenesin [Robitussin] 10 ml PO Q4H PRN PRN 08/20/20 Mag Hydrox/Aluminum Hyd/Simeth 30 ml PO Q4H PRN PRN Magnesium Hydroxide [Milk Of 30 ml PO DAILY PRN PRN Na Phos,M-B/Na Phos,Di-Ba [Fleet 120 ml RECTAL X1 Oxybutynin Chloride [Oxybutynin 10 mg PO DAILY Polyethylene Glycol 3350 [Miralax] Allergies: ampicillin, coumadin Social history: resident of correction Review of Systems: General - has overall weakness and increased tiredness, denies fevers, states that she lost 190# after gastric bypass surgery Cardiovascular denies chest pain, denies chest tightness, denies history of heart attack Pulmonary has shortness of breath with exertion, denies coughing up blood Gastrointestinal abdominal pain as per HPI, had bowel movement this morning Neurological has headaches, bilateral lower extremity neuropathy Genitourinary denies burning with urination, denies blood in urine Hematological has IVC filter in place, was on eliquis Skin denies open non healing wounds Musculoskeletal had left arm fracture in past, has osteoarthritis Endocrine has diabetes Psychological denies hallucinations Physical examination: Vital signs Temp 98.2F HR 83 RR 16 BP 163/56 General WD/WN WF in no apparent distress, alert and oriented, not septic appearing HEENT Normocephalic. EOM intact with sclera clear and no icterus noted. Wearing glasses. Neck is supple with no jugular venous distention noted. Trac hea is midline. Lungs normal respiratory excursion. No labored breathing noted, such as retractions. No cough heard. Heart regular. Abdomen soft and benign and obese. tender in left side of midline, no right sided tenderness Extremities no calf swelling noted. No pitting edema noted. . Genitourinary/Rectal deferred Skin normal skin integrity. Neurological non focal. Psychological normal affect, patient is calm and appropriate Impression: left rectus sheath hematoma Discussion/Plan: Continue observation, can follow with serial Hgb/Hct. No surgical intervention required at this point. Anticoagulation has already been stopped. Will follow patient with you. .
[2020-08-21 08:09] LABS: Hematocrit 33.5 % (37-47)
[2020-08-21] MEDS: DULoxetine Hcl 60 MG Capsule PO (08:27)
[2020-08-21] MEDS: buPROPion (XL) 150 MG TABLET.XL PO (08:27)
[2020-08-21] MEDS: Methenamine Hippurate 1 GM Tablet PO ×2 (08:27→21:13)
[2020-08-21] MEDS: Ascorbic Acid 500 MG Tablet PO ×2 (08:27→16:35)
[2020-08-21] MEDS: Polyethylene Glycol 3350 17 GM PACKET PO (08:27)
[2020-08-21] MEDS: Fluticasone 0.05% 1 SPRAY NASAL.SRY 2 SPRAY NASAL (08:28)
[2020-08-21] MEDS: Pantoprazole Sodium 40 MG Tablet PO ×2 (08:28→21:14)
[2020-08-21] MEDS: Divalproex Sodium 250 MG Tablet 500 MG PO ×2 (08:29→21:13)
[2020-08-21] MEDS: Tolterodine Tartrate 2 MG CAP.SA PO (08:29)
--- NOTE | 2020-08-21 09:14 | CASEMGMT ---
Addendum entered by Maria E Martinez 08/21/20 12:22: RUKHSANA placed a call to Wallace at [facility] and updated him that pt is wanting to return to [facility]. Wallace states that it depends on pt's needs and if pt is able to return to [facility]. Wallace states at [facility] pt will need to be able to get self out of bed, go to the bathroom, basically be mostly independent with at least walking. Wallace states they do have staff to assist with bathing but pt will need to be able to manage most things on own. RUKHSANA faxed PT/OT to Wallace. RUKHSANA also faxed updated clinicals to Sherry at [facility] as pt may need to return there for additional therapy. Plan: Return to SNF vs Return to [facility] pending medical needs and PT/OT Addendum entered by Maria E Martinez 08/21/20 11:06: SW in to speak with pt. SW introduced self and role at [facility]. Pt states she was already back to her apartment on [facility] and wants to return there at discharge. RUKHSANA informed pt that it just depends on pt's medical needs at discharge. RUKHSANA faxed updated clinicals to Wallace at [facility] and wrote on fax cover sheet that pt wishes to discharge back to apartment at [facility]. RUKHSANA attempted to call Wallace, phones currently down, will try again later today as time permits. Addendum entered by Maria E Martinez 08/21/20 09:39: RUKHSANA received call from Sherry at [facility] stating pt was still on [facility] side, pt finished IV antibiotics on August 19. Sherry states pt was planning on transitioning back to [facility] relatively quickly. RUKHSANA informed Sherry that this worker is not sure what pt's medical needs will be at discharge but will keep both Sherry and Wallace at [facility] updated. Plan: Return to SNF vs Return to [facility] Original Note: Social Work Note RUKHSANA reviewed chart. Pt listed as being from [facility] but was sent to [facility] last time from [facility] due to needing IV antibiotics. RUKHSANA placed a call to Sherry at [facility] and left message asking if pt is still on [facility] side for IV Antibiotics or if pt has transitioned back to [facility]. SW waiting for call back from Sherry at [facility]. Maria E Martinez INSURANCE SPECIAL AGENT, NEIGHBORHOOD SERVICE CENTER DIRECTOR
--- NOTE | 2020-08-21 10:23 | NURSING ---
daughter mrs jordan called and was upset that dr pittman way not taking pt's condition serious. daughter wanted to talk with dr pittman again. notified dr pittman that daughter wanted to talk with her. and also gave the daughter the patient advocate line phone number.
--- NOTE | 2020-08-21 12:33 | CASEMGMT ---
Addendum entered by Maria E Martinez 08/21/20 13:58: RUKHSANA did place a call to Sherry at [facility] and left message asking if pt needs SNF level if pt is able to return without needing a pre-cert. SW received message from Sherry stating pt is able to return to [facility] if needed and pt's insurance is still waiving pre-certs so pt would be able to return to [facility] once medically cleared if SNF is being recommended. SW to continue to follow. Original Note: Social Work Note SW placed a call to pt's LANG Schwarz and updated her on pt's admission to [facility]. Maria E Martinez [employer], GLASS WORKER
[2020-08-21 12:59] LABS: Hematocrit 31.7 % (37-47); Hemoglobin 10.4 g/dL (12.0-15.0)
[2020-08-21] MEDS: Primidone 50 MG Tablet 100 MG PO (21:13)
[2020-08-21] MEDS: Pravastatin 40 MG Tablet PO (21:14)
[2020-08-21] MEDS: Mirabegron 50 MG TAB.ER.24H PO (21:14)
[2020-08-22 03:34] VITALS: BP 113/53; PULSE 82; RESP 18; TEMP 36.6; O2SAT 95
[2020-08-22 05:31] LABS: Absolute Lymphocyte Count 1.63 X10^3/uL (0.83-4.51); Absolute Neutrophil Count 3.2 X10^3/uL (2.0-7.7); Basophil# 0.04 X10^3/uL; Basophil% 0.7 % (0-1); Eosinophil# 0.19 X10^3/uL; Eosinophils% 3.3 % (0-5); Hematocrit 32.1 % (37-47); Hemoglobin 9.5 g/dL (12.0-15.0); Lymphocyte # 1.63 X10^3/ul (4.0); Lymphocyte % 28.5 % (19-41); Mean Corp Hgb Conc 29.6 g/dL (32-36); Mean Corpuscular Hgb 27.6 pg (27.0-32.0); Mean Corpuscular Volume 93.3 fL (81-99); Mean Platelet Vol. 9.9 fl (6.2-12.0); Monocyte# 0.62 X10^3/uL; Monocyte% 10.9 % (0-10); NRBC Flagged by Analyzer 0 % (0-5); Neutrophil % 56.1 % (47-70); Platelet Count 195 K/mm3 (150-450); RBC Distribution Width CV 14.6 % (11.6-14.6); RBC Distribution Width SD 50.8 fl (35.1-43.9); Red Blood Count 3.44 M/mm3 (4.2-5.4); White Blood Count 5.7 K/mm3 (4.4-11.0)
[2020-08-22] MEDS: Gabapentin 400 MG Capsule PO ×2 (05:33→13:36)
[2020-08-22 05:49] LABS: ALB/GLOB Ratio 0.8 RATIO (0.9-2.4); AST(SGOT) 32 U/L (15-37); Alanine Aminotransfer ALT/SGPT 32 U/L (13-56); Albumin, Serum 2.6 g/dL (3.2-5.0); Alkaline Phosphatase 87 U/L (45-117); Anion Gap 4 (5-15); BUN 23 mg/dL (7-18); BUN/Creat Ratio 27.2 RATIO (10-20); Calcium,Total 8.6 mg/dL (8.5-10.1); Chloride 101 mmol/L (98-107); Creatinine, Serum 0.85 mg/dL (0.55-1.02); EST Glomerular Filtration Rate 70 mL/min (>60); Est Glom Filt Rate - Afr Amer 84 mL/min (>60); Estimated Creatinine Clearance 52.25 ml/min; Globulin 3.3 g/dL (2.2-4.2); Glucose 83 mg/dL (74-106); Potassium 4.9 mmol/L (3.5-5.1); Protein, Total 5.9 g/dL (6.4-8.2); Sodium Level 135 mmol/L (136-145)
[2020-08-22 08:58] VITALS: O2SAT 96
[2020-08-22] MEDS: Ascorbic Acid 500 MG Tablet PO ×2 (08:59→16:18)
--- NOTE | 2020-08-22 09:01 | CASEMGMT ---
Addendum entered by Maria E Martinez 08/22/20 10:52: RUKHSANA received call from Wallace at [facility] stating pt is able to return to [facility]. SW updated Wallace that pt will be discharged today. COVID test will be ordered. SW to fax discharge paperwork once COVID test is completed. Addendum entered by Maria E Martinez 08/22/20 10:09: SW reviewed PT/OT. Pt was contact guard 25 ft ambulating and min assist with ADLs. SW placed a call to Wallace at [facility] and left message updating him on how pt did with PT and asked to confirm that pt is able to return to [facility]. RUKHSANA spoke with RN, pt can transport via wheelchair van. Original Note: Social Work Note SW in to speak with pt. SW updated pt that if pt is min assist with PT/OT, able to go to the bathroom etc, pt is able to return to [facility]. RUKHSANA informed pt that if she is requiring a lot of assistance with PT/OT then pt will likely not be able to return to [facility] and will need to return to [facility] or different SNF. RUKHSANA asked PT to work with pt. Maria E Martinez GRANITE WORKER, MANAGER VIDEO GAMES
[2020-08-22 09:28] VITALS: BP 153/106; PULSE 81; RESP 18; TEMP 36.4; O2SAT 97
[2020-08-22] MEDS: Furosemide 20 MG Tablet 60 MG PO (09:36)
[2020-08-22] MEDS: Pantoprazole Sodium 40 MG Tablet PO (09:36)
[2020-08-22] MEDS: DULoxetine Hcl 60 MG Capsule PO (09:37)
[2020-08-22] MEDS: Methenamine Hippurate 1 GM Tablet PO (09:37)
[2020-08-22] MEDS: Tolterodine Tartrate 2 MG CAP.SA PO (09:37)
[2020-08-22] MEDS: buPROPion (XL) 150 MG TABLET.XL PO (09:39)
[2020-08-22] MEDS: Divalproex Sodium 250 MG Tablet 500 MG PO (09:41)
[2020-08-22] MEDS: Fluticasone 0.05% 1 SPRAY NASAL.SRY 2 SPRAY NASAL (09:41)
[2020-08-22] MEDS: oxyCODONE 5 MG Tablet PO ×2 (09:45→13:37)
--- NOTE | 2020-08-22 09:59 | PCM.TXEXTCAR ---
- Diet 08/21/20 10:54 Diet: Cardiac: Calorie-Controlled Food consistency:: Regular Liquid Consistency:: Regular/Thin Is pt able to select menu?: Yes How many daily calories?: 1800 calorie - Routine Orders/Code Status Keep PO Greater than or Equal to (%): 94 Routine Lab Work: CBC - within 3 days, BMP - within 3 days Code Status: Full Code - Therapies Weight Bearing: Weight bearing as tolerated Physical Therapy: Eval and Treat Occupational Therapy: Eval and Treat - Allergies/Procedures Done in Hospital Allergies/Adverse Reactions: Allergies ampicillin [From Unasyn] Allergy (Severe, Verified 08/20/20 21:22) Other Blisters on tongue /throat difficulty breathing sore tongue/throat warfarin sodium [From Coumadin] Allergy (Severe, Verified 08/20/20 21:22) Low red blood cells Procedures: None - Type of Care/Length of Stay Estimated LOS: Convalescent Care Less Than 30 days Type of Care Needed: Skilled Rehab Potential: Good Prognosis: Good - Additional Orders/Day of Discharge Additional Orders: Hold off on restarting Eliquis for 2 weeks. Continue to keep yourself active Day of Discharge: 08/22/20 - Dietary and Speech Recommendations Dietitian Recommendations/Changes: Will change diet to 1800 judy / Cardiac diet - Follow Up Care Primary Care Physician: Gonzales Pinto MD [Primary Care Provider] - Please follow up with your Primary Care Physician in: within 2 weeks of discharge
--- NOTE | 2020-08-22 10:06 | PCM.DC.SUM ---
Discharge Date and Diagnosis - Problem List Patient Problems: Active and Suspected Problems (Last Reviewed 05/25/20 @ 00:[address] Elpidio Faust MD) Rectus sheath hematoma (Acute) Date of Admission: 08/21/20 Date of Discharge: 08/22/20 - Primary Discharge Diagnosis Acute Problems: Active Problems (Last Reviewed 05/25/20 @ 00:[address] Elpidio Faust MD) Rectus sheath hematoma (Acute) - Secondary Discharge Diagnosis Chronic Problems: Chronic Problems (Last Reviewed 05/25/20 @ 00:[address] Elpidio Faust MD) HTN (hypertension) (Chronic) HLD (hyperlipidemia) (Chronic) GERD (gastroesophageal reflux disease) (Chronic) Anxiety and depression (Chronic) Chronic neuropathic pain (Chronic) Unilateral primary osteoarthritis, right knee (Chronic) Chronic pain following surgery or procedure (Chronic) Morbid obesity with BMI of 45.0-49.9, adult (Chronic) ROXIE (obstructive sleep apnea) (Chronic) says she got off CPAP_ when she had gastric bypass surgery ......wieghed 248 after bypass and was up to 312 recently but, has been losing weight, unintentional. 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 Correlate for history of trauma. Consider close follow-up CT abdomen to assess resolution. Additional stable chronic findings as described. Electronically Signed: Bobby Ramesh MD at 0:23 EST Tel , Service support , General surgery Operations: None Procedures: None Summary of Care Provided: The patient is a 75 year old F with multiple co-morbidities, who was recently in SNF for IV antibiotics, history of DVT on Eliquis, who comes in with left-sided upper and lower quadrant discomfort that started 2 days. She has been evaluated with a KUB in the senior living facility which was unremarkable. She was brought to the emergency department because the pain was not improving. Pain was worse with movement or palpation. Her work-up in the ED was remarkable for an 7.3 cm hypodensity likely hematoma in the left rectus sheath. He was admitted and managed for acute intractable pain. Her Eliquis was held. General surgery was consulted, recommended conservative management. Patient's H&H was monitored. No drops in her hemoglobin. She continued to be stable and was discharged back to her senior living facility. Patient Problems: Active and Suspected Problems (Last Reviewed 05/25/20 @ 00:[address] Elpidio Faust MD) Rectus sheath hematoma (Acute) Subjective: On the day of discharge, patient was seen and examined. Denied any new complains. Her pain was better controlled. - Physical Exam Vitals/I&O's: Vital Signs Temp Pulse Resp BP Pulse Ox 97.6 F L 81 18 153/106 H 97 08/22/20 09:28 08/22/20 09:28 08/22/20 09:28 08/22/20 09:28 08/22/20 09:28 Oxygen Delivery Method Room Air Weight: 138.391 kg Body Mass Index (BMI) 49.9 Intake and Output for Last 24 Hours 08/20/20 08/21/20 08/22/20 23:59 23:59 23:59 Intake Total 500 / 500 850 / 850 300 / 300 Output Total 2200 / 2200 700 / 700 Balance 500 / 500 -1350 / -1350 -400 / -400 General: Alert, Oriented x3, Cooperative, No apparent distress HEENT: Atraumatic, PERRLA, EOMI, Normocephalic Oral: Moist Mucosa Neck: Supple Lungs: Clear to auscultation, Normal air movement Cardiovascular: Regular rate, Regular Rhythm, Normal S1, Normal S2, No murmurs Abdomen: Bowel Sounds Present, Soft, Non Tender, Non-Distended, No Hepato-splenomegaly Extremities: No edema Skin: No rashes Musculoskeletal: No Tenderness to Palpation of Joints or Extremities Lymphatic: No Cervical, Supraclavicular, or Inguinal Adenopathy Neurological: Cranial nerves II-XII grossly intact, Neuro grossly intact Psych/Mental Status: Normal Affect, Appropriate Microbiology Past 72 Hours 08/20/20 22:18 Urine, Catheterized Urine Culture - Preliminary GPC Poss Enterococcus sp Laboratory Results 08/21/20 12:45: Hgb 10.4 L, Hct 31.7 L 08/22/20 05:04: WBC 5.7, RBC 3.44 L, Hgb 9.5 L, Hct 32.1 L, MCV 93.3, MCH 27.6, MCHC 29.6 L, RDW Std Deviation 50.8 H, RDW Coeff of Chani 14.6, Plt Count 195, MPV 9.9, Immature Gran % (Auto) 0.500, Neut % (Auto) 56.1, Lymph % (Auto) 28.5, Brooks % (Auto) 10.9 H, Eos % (Auto) 3.3, Baso % (Auto) 0.7, Absolute Neuts (auto) 3.2, Absolute Lymphs (auto) 1.63, Nucleated RBC % 0 08/22/20 05:04: Sodium 135 L, Potassium 4.9, Chloride 101, Carbon Dioxide 30.0, Anion Gap 4 L, BUN 23 H, Creatinine 0.85, Estim Creat Clear Calc 52.25, Est GFR (MDRD) Af Amer 84, Est GFR (MDRD) Non-Af 70, BUN/Creatinine Ratio 27.2 H, Glucose 83, Calcium 8.6, Total Bilirubin 0.50, AST 32, ALT 32, Alkaline Phosphatase 87, Total Protein 5.9 L, Albumin 2.6 L, Globulin 3.3, Albumin/Globulin Ratio 0.8 L Current Medications Acetaminophen (Acetaminophen 325 Mg Tablet) 650 mg PO Q6H PRN PRN PRN Reason: Pain Score 1-10/Temp > 100.7 F Last Admin: 08/21/20 21:12 Dose: 650 mg Documented by: Al Hydroxide/Mg Hydroxide (Mag Hydrox/Al Hydrox/Simeth 30 Ml Udc) 30 ml PO Q6H PRN PRN PRN Reason: Gastric Burning Albuterol Sulfate (Albuterol 2.5 Mg/3 Ml Vial.Neb.) 2.5 mg INHALATION Q2H PRN PRN PRN Reason: Dyspnea, wheezing Ascorbic Acid (Ascorbic Acid 500 Mg Tablet) 500 mg PO BIDCM [facility] Last Admin: 08/22/20 08:59 Dose: 500 mg Documented by: Bupropion HCl (Bupropion (Xl) 150 Mg Tablet.Xl) 150 mg PO DAILY [facility] Last Admin: 08/22/20 09:39 Dose: 150 mg Documented by: Divalproex Sodium (Divalproex Sodium 250 Mg Tablet) 500 mg PO BID [facility] Last Admin: 08/22/20 09:41 Dose: 500 mg Documented by: Duloxetine HCl (Duloxetine Hcl 60 Mg Capsule) 60 mg PO DAILY [facility] Last Admin: 08/22/20 09:37 Dose: 60 mg Documented by: Fluticasone Propionate (Fluticasone 0.05% 1 [place] Nasal.Sry) 2 spray NASAL DAILY [facility] Last Admin: 08/22/20 09:41 Dose: 2 spray Documented by: Furosemide (Furosemide 20 Mg Tablet) 60 mg PO DAILY [facility] Last Admin: 08/22/20 09:36 Dose: 60 mg Documented by: Gabapentin (Gabapentin 400 Mg Capsule) 400 mg PO TID [facility] Last Admin: 08/22/20 05:33 Dose: 400 mg Documented by: Guaifenesin (Guaifenesin 10 Ml Udc (200mg/10ml)) 20 ml PO Q4H PRN PRN PRN Reason: COUGH Sodium Chloride () 250 mls @ 15 mls/hr IV .[id number] PRN PRN Reason: Saline Flush Sodium Chloride () 250 mls @ 15 mls/hr IV .[id number] PRN PRN Reason: Additional IVPB Infusion Magnesium Hydroxide (Magnesium Hydroxide 30 Ml Udc) 30 ml PO DAILY PRN PRN PRN Reason: Constipation Methenamine Hippurate (Methenamine Hippurate 1 Gm Tablet) 1 gm PO BID [facility] Last Admin: 08/22/20 09:37 Dose: 1 gm Documented by: Mirabegron (Mirabegron 50 Mg Tab.Er.24h) 50 mg PO QHS [facility] Last Admin: 08/21/20 21:14 Dose: 50 mg Documented by: Morphine Sulfate (Morphine 4 Mg/Ml Syringe) 1 mg IV Q3H PRN PRN PRN Reason: Pain Score 6-10 Nutritional Formula (Lactose Free) (Ensure Enlive 120 Ml Liquid) 120 ml PO TIDCM [facility] Last Admin: 08/22/20 09:00 Dose: 120 ml Documented by: Ondansetron HCl (Ondansetron 4 Mg/2 Ml Vial) 4 mg IV Q8H PRN PRN PRN Reason: NAUSEA/VOMITING Oxycodone HCl (Oxycodone 5 Mg Tablet) 5 mg PO Q4H PRN PRN PRN Reason: Pain Score 4-5 Last Admin: 08/22/20 09:45 Dose: 5 mg Documented by: Pantoprazole Sodium (Pantoprazole Sodium 40 Mg Tablet) 40 mg PO BID [facility] Last Admin: 08/22/20 09:36 Dose: 40 mg Documented by: Polyethylene Glycol (Polyethylene Glycol 3350 17 Gm Packet) 17 gm PO DAILY [facility] Last Admin: 08/22/20 09:41 Dose: Not Given Documented by: Pravastatin Sodium (Pravastatin 40 Mg Tablet) 40 mg PO QHS [facility] Last Admin: 08/21/20 21:14 Dose: 40 mg Documented by: Primidone (Primidone 50 Mg Tablet) 100 mg PO QHS [facility] Last Admin: 08/21/20 21:13 Dose: 100 mg Documented by: Prochlorperazine Edisylate (Prochlorperazine 10 Mg/2 Ml Vial) 5 mg IV Q4H PRN PRN PRN Reason: Breakthrough nausea/vomiting Psyllium Hydrophilic Mucilloid (Psyllium 1 Packet) 1 packet PO DAILY PRN PRN PRN Reason: Constipation Last Admin: 08/21/20 02:32 Dose: 1 packet Documented by: Senna/Docusate Sodium (Senna/Docusate Sodium 1 Tablet) 2 tablet PO BID PRN PRN PRN Reason: Constipation Last Admin: 08/21/20 02:31 Dose: 2 tablet Documented by: Simethicone (Simethicone 80 Mg Tablet) [facility] Last Admin: 08/22/20 08:59 Dose: 80 mg Documented by: Sodium Chloride (0.9% Saline Lock 10 Ml Syringe) 10 - 40 ml IV UD PRN PRN Reason: SALINE FLUSH Last Admin: 08/21/20 08:05 Dose: 20 ml Documented by: Throat Lozenges (Benzocaine/Menthol 1 Lozenge) 1 lozenge MUCOUS MEM Q2H PRN PRN PRN Reason: SORE THROAT Tolterodine Tartrate (Tolterodine Tartrate 2 Mg Cap.Sa) 2 mg PO DAILY [facility] Last Admin: 08/22/20 09:37 Dose: 2 mg Documented by: Discharge Diet: Low fat/ Low Cholesterol, 2000 mg Sodium Diet, Carb Control Diet Discharge Activity: Return to Normal Activity Home Medications: Medications to take at Discharge Cholecalciferol (VIT D3) [Vitamin D3] 1,000 unit PO DAILY 12/29/15 Duloxetine Hcl [Cymbalta] 60 mg PO DAILY 12/29/15 Pravastatin [Pravachol] 40 mg PO QHS 08/05/18 Fluticasone 0.05% [Flonase Nasal [place]] 2 spray NASAL DAILY 03/18/19 Furosemide [Lasix] 60 mg PO DAILY 03/18/19 Primidone 100 mg PO QHS 03/18/19 SimETHICONE [Mylicon] 80 mg PO TIDCM 03/18/19 Lactobacillus Acidophilus [Acidophilus] 1 ea PO DAILY 09/06/19 Mirabegron [Myrbetriq] 50 mg PO QHS 01/24/20 Famotidine [Pepcid] 20 mg PO BID 03/23/20 Gabapentin [Neurontin] 400 mg PO TID 07/09/20 Divalproex Sodium [Depakote] 500 mg PO BID #0 07/11/20 Bupropion HCl [Bupropion Xl] 150 mg PO DAILY 08/09/20 D-Mannose 1,000 mg PO BID 08/09/20 Estrogens, Conjugated [Premarin] 1 g VAGINAL WESA 08/09/20 Ascorbic Acid [Vitamin C] 500 mg PO BIDCM #180 tab 08/10/20 Methenamine Hippurate [Hiprex] 1 gm PO BID #180 tab 08/10/20 Acetaminophen [Tylenol Tablet] 650 mg PO Q4H PRN PRN 08/20/20 Dextrose [Glucose Gel] 1 dose PO X1 PRN 08/20/20 Glucagon,Human Recombinant [Glucagon Emergency Kit] 1 mg IJ X1 PRN 08/20/20 Guaifenesin [Robitussin] 10 ml PO Q4H PRN PRN 08/20/20 Mag Hydrox/Aluminum Hyd/Simeth [Antacid Suspension] 30 ml PO Q4H PRN PRN 08/20/20 Oxybutynin Chloride [Oxybutynin Chloride ER] 10 mg PO DAILY 08/20/20 Polyethylene Glycol 3350 [Miralax] 17 gm PO DAILY 08/20/20 Albuterol Aerosols [Ventolin Aerosols] 2.5 mg INHALATION Q2H PRN PRN vial.neb. 08/22/20 Ensure Enlive 120 ml PO TIDCM 30 Days #90 liquid 08/22/20 Oxycodone [Oxyir] 5 mg PO Q4H PRN PRN 5 Days #20 tab 08/22/20 Following Prescriptions Were Given to Patient: Ensure Enlive 120 ml PO TIDCM 30 Days #90 liquid Transmission Status: Received by [facility] Oxycodone [Oxyir] 5 mg PO Q4H PRN PRN 5 Days #20 tab PRN Reason: Pain Score 6-10 Transmission Status: Received by [facility] Primary Care Physician: Gonzales Pinto MD [Primary Care Provider] - Please follow up with your Primary Care Physician in: within 2 weeks of discharge Disposition: Detention facility Minutes spent on discharge:: 40 Patient Condition:: Stable Medical Necessity - Tobacco Use Smoking Status: Never smoker Tobacco Use: Non-smoker Meaningful Use Info Meaningful Use Diagnoses (Choose all that apply): None applicable Inpatient E&M: 44452 Disch Hosp
--- NOTE | 2020-08-22 10:11 | CASEMGMT ---
BETTY CROFT in to discuss WHITE form with patient. RN LANG explained WHITE form to patient, patient voiced understanding. Patient signed WHITE form and filed in chart. Patient provided with copy of signed WHITE form. Patient had no further questions or concerns at this time.
--- NOTE | 2020-08-22 10:15 | PCM.DC ---
- Discharge Diagnoses Current Active Problems: Current Active and Chronic Problems (Last Reviewed 05/25/20 @ 00:[address] Elpidio Faust MD) HTN (hypertension) (Chronic) HLD (hyperlipidemia) (Chronic) GERD (gastroesophageal reflux disease) (Chronic) Anxiety and depression (Chronic) Chronic neuropathic pain (Chronic) Rectus sheath hematoma (Acute) Morbid obesity with BMI of 45.0-49.9, adult (Chronic) ROXIE (obstructive sleep apnea) (Chronic) says she got off CPAP_ when she had gastric bypass surgery ......wieghed 248 after bypass and was up to 312 recently but, has been losing weight, unintentional. DM II (diabetes mellitus, type II), controlled (Chronic) states this was cured with the gastric bypass surgery Chronic anticoagulation (Chronic) Eliquis History of DVT (deep vein thrombosis) (Chronic) recurrent Reason(s) for Visit for Discharge Instructions: ACUTE RECTUS SHEATH HEMATOMA You will use the following diet at home:: Cardiac Your food should be the consistency of: Regular Your liquids should be the consistency of: Regular/Thin Allergies/Adverse Reactions: Allergies ampicillin [From Unasyn] Allergy (Severe, Verified 08/20/20 21:22) Other Blisters on tongue /throat difficulty breathing sore tongue/throat warfarin sodium [From Coumadin] Allergy (Severe, Verified 08/20/20 21:22) Low red blood cells Medications to take at Discharge Cholecalciferol (VIT D3) [Vitamin D3] 1,000 unit PO DAILY 12/29/15 Duloxetine Hcl [Cymbalta] 60 mg PO DAILY 12/29/15 Pravastatin [Pravachol] 40 mg PO QHS 08/05/18 Fluticasone 0.05% [Flonase Nasal [place]] 2 spray NASAL DAILY 03/18/19 Furosemide [Lasix] 60 mg PO DAILY 03/18/19 Primidone 100 mg PO QHS 03/18/19 SimETHICONE [Mylicon] 80 mg PO TIDCM 03/18/19 Lactobacillus Acidophilus [Acidophilus] 1 ea PO DAILY 09/06/19 Mirabegron [Myrbetriq] 50 mg PO QHS 01/24/20 Famotidine [Pepcid] 20 mg PO BID 03/23/20 Gabapentin [Neurontin] 400 mg PO TID 07/09/20 Divalproex Sodium [Depakote] 500 mg PO BID #0 07/11/20 Bupropion HCl [Bupropion Xl] 150 mg PO DAILY 08/09/20 D-Mannose 1,000 mg PO BID 08/09/20 Estrogens, Conjugated [Premarin] 1 g VAGINAL WESA 08/09/20 Ascorbic Acid [Vitamin C] 500 mg PO BIDCM #180 tab 08/10/20 Methenamine Hippurate [Hiprex] 1 gm PO BID #180 tab 08/10/20 Acetaminophen [Tylenol Tablet] 650 mg PO Q4H PRN PRN 08/20/20 Dextrose [Glucose Gel] 1 dose PO X1 PRN 08/20/20 Glucagon,Human Recombinant [Glucagon Emergency Kit] 1 mg IJ X1 PRN 08/20/20 Guaifenesin [Robitussin] 10 ml PO Q4H PRN PRN 08/20/20 Mag Hydrox/Aluminum Hyd/Simeth [Antacid Suspension] 30 ml PO Q4H PRN PRN 08/20/20 Oxybutynin Chloride [Oxybutynin Chloride ER] 10 mg PO DAILY 08/20/20 Polyethylene Glycol 3350 [Miralax] 17 gm PO DAILY 08/20/20 Albuterol Aerosols [Ventolin Aerosols] 2.5 mg INHALATION Q2H PRN PRN vial.neb. 08/22/20 Ensure Enlive 120 ml PO TIDCM 30 Days #90 liquid 08/22/20 Oxycodone [Oxyir] 5 mg PO Q4H PRN PRN 5 Days #20 tab 08/22/20 The following prescriptions were given: Ensure Enlive 120 ml PO TIDCM 30 Days #90 liquid Transmission Status: Pending to [facility] Oxycodone [Oxyir] 5 mg PO Q4H PRN PRN 5 Days #20 tab PRN Reason: Pain Score 6-10 Transmission Status: Sent to [facility] Primary Care Physician: Gonzales Pinto MD [Primary Care Provider] - Please follow up with your Primary Care Physician in: within 2 weeks of discharge Test Results: Test results from this visit will be discussed in further detail at your follow-up appointment, if applicable. Please Follow Up With: Adan Scanlon MD When: IN 2 WEEKS TO REASSESS START OF ELIQUIS Proposed Discharge Date: 08/22/20
--- NOTE | 2020-08-22 10:56 | PHA.DC.MR ---
Pharmacy Service has performed discharge medication reconciliation for this patient. The patient's discharge medication list was reviewed for discrepancies and discrepancies were resolved. Home Medications Cholecalciferol (VIT D3) [Vitamin D3] 1,000 unit PO DAILY 12/29/15 Duloxetine Hcl [Cymbalta] 60 mg PO DAILY 12/29/15 Pravastatin [Pravachol] 40 mg PO QHS 08/05/18 Fluticasone 0.05% [Flonase Nasal [place]] 2 spray NASAL DAILY 03/18/19 Furosemide [Lasix] 60 mg PO DAILY 03/18/19 Primidone 100 mg PO QHS 03/18/19 SimETHICONE [Mylicon] 80 mg PO TIDCM 03/18/19 Lactobacillus Acidophilus [Acidophilus] 1 ea PO DAILY 09/06/19 Mirabegron [Myrbetriq] 50 mg PO QHS 01/24/20 Famotidine [Pepcid] 20 mg PO BID 03/23/20 Gabapentin [Neurontin] 400 mg PO TID 07/09/20 Divalproex Sodium [Depakote] 500 mg PO BID #0 07/11/20 Bupropion HCl [Bupropion Xl] 150 mg PO DAILY 08/09/20 D-Mannose 1,000 mg PO BID 08/09/20 Estrogens, Conjugated [Premarin] 1 g VAGINAL WESA 08/09/20 Ascorbic Acid [Vitamin C] 500 mg PO BIDCM #180 tab 08/10/20 Methenamine Hippurate [Hiprex] 1 gm PO BID #180 tab 08/10/20 Acetaminophen [Tylenol Tablet] 650 mg PO Q4H PRN PRN 08/20/20 Dextrose [Glucose Gel] 1 dose PO X1 PRN 08/20/20 Glucagon,Human Recombinant [Glucagon Emergency Kit] 1 mg IJ X1 PRN 08/20/20 Guaifenesin [Robitussin] 10 ml PO Q4H PRN PRN 08/20/20 Mag Hydrox/Aluminum Hyd/Simeth [Antacid Suspension] 30 ml PO Q4H PRN PRN 08/20/20 Oxybutynin Chloride [Oxybutynin Chloride ER] 10 mg PO DAILY 08/20/20 Polyethylene Glycol 3350 [Miralax] 17 gm PO DAILY 08/20/20 Albuterol Aerosols [Ventolin Aerosols] 2.5 mg INHALATION Q2H PRN PRN vial.neb. 08/22/20 Ensure Enlive 120 ml PO TIDCM 30 Days #90 liquid 08/22/20 Oxycodone [Oxyir] 5 mg PO Q4H PRN PRN 5 Days #20 tab 08/22/20
--- NOTE | 2020-08-22 11:50 | CASEMGMT ---
Addendum entered by Maria E Martinez 08/22/20 13:56: RUKHSANA faxed completed discharge paperwork to [facility] including transfer to extended care facility, signed medication list, any scripts, COVID test and COVID screening tool. Original in SNF folder and copy on pt's chart. RUKHSANA accessed trip assist and earliest Physician's can transport pt is 5:00pm. Transportation form completed and placed on SNF folder and copy on pt's chart. RUKHSANA updated pt that pt will discharge to [facility] and transportation has been arranged for 5:00pm. RUKHSANA informed pt that pt's daughter Alea had called in requesting call back. Pt gave this worker permission to call her daughter Alea back. RUKHSANA placed a call to pt's daughter Alea and updated her that pt will be going to [facility] today and updated her on transportation time. RUKHSANA placed a call to Sherry at [facility] and updated her on transportation time. RN had already been updated on transportation time. RUKHSANA placed a call to Wallace at [facility] and left message updating him that pt will be going to [facility]. RUKHSANA placed a call to pt's CM Brook Schwarz and updated her pt will be discharged to [facility]. SW faxed discharge paperwork to Brook Schwarz. Plan: [facility] skilled today with Physician's ambulance transporting pt via wheelchair van at 5:00pm MEG Ramirez Original Note: Social Work Note RN updated this worker that pt now doesn't want to return to [facility] and would like to go to the prison side. SW in to speak with pt. Pt confirms she would like to discharge to [facility] again for continued therapy before eventually returning to [facility]. RUKHSANA placed a call to Sherry at [facility] and updated her. Pt can still admit to [facility] today. RUKHSANA then received message from pt's daughter Alea Huerta ([phone]) wanting to make sure this worker knew that pt would like to return to [facility] at this time and not [facility]. RUKHSANA updated physician that pt is now wanting SNF and that pt can still discharge today, just need signed medication list. SW to fax discharge paperwork once completed. Plan: Return to [facility] skilled today JOSESITO RamirezW
[2020-08-22] MEDS: Ondansetron ODT 4 MG Tablet 8 MG PO (12:29)
[2020-08-22 12:57] VITALS: BP 117/58; PULSE 88; RESP 18; TEMP 36.6; O2SAT 95
--- NOTE | 2020-08-22 14:57 | NURSING ---
REPORT GIVEN TO TONE HERNÁNDEZ AT [facility]
== END 2020-08-22 17:25 | disposition skilled nursing facility (03) ==
LOC: ED 23:22 → MS3 08-21 00:54
PROVIDERS: Admitting Provider Family Medicine; Emergency Provider Emergency Medicine; PCP Family Medicine; Visit Provider Internal Medicine
DX: S30.1XXA Contusion of abdominal wall, initial encounter (principal); I10 Essential (primary) hypertension; E78.5 Hyperlipidemia, unspecified; K21.9 Gastro-esophageal reflux disease without esophagitis; F41.9 Anxiety disorder, unspecified; F32.9 Major depressive disorder, single episode, unspecified; E66.01 Morbid (severe) obesity due to excess calories; Z68.43 Body mass index [BMI] 50.0-59.9, adult; G47.33 Obstructive sleep apnea (adult) (pediatric); M19.90 Unspecified osteoarthritis, unspecified site; E11.40 Type 2 diabetes mellitus with diabetic neuropathy, unspecified; M99.03 Segmental and somatic dysfunction of lumbar region; M99.05 Segmental and somatic dysfunction of pelvic region; M99.02 Segmental and somatic dysfunction of thoracic region; X58.XXXA Exposure to other specified factors, initial encounter; Y93.9 Activity, unspecified; Y92.9 Unspecified place or not applicable; Y99.9 Unspecified external cause status; Z79.899 Other long term (current) drug therapy; Z79.01 Long term (current) use of anticoagulants; Z98.84 Bariatric surgery status; Z86.718 Personal history of other venous thrombosis and embolism; Z87.440 Personal history of urinary (tract) infections
CPT/HCPCS: 36415; 36592; 74177; 80053; 81001; 83690; 85014; 85018; 85025; 87077; 87086; 87088; 87186; 87426; 96374; 96375; 96376; 97110; 97162; 97166; 97530; 97535; 97802; 99218; 99251; 99283; J7040; Q9967; A4216; G0378; G0463; J2405

== ENCOUNTER → 2020-09-11 13:40 | Outpatient (CLI) | payer MEDICARE, MEDICAID, SELFPAY ==
[2020-08-21 01:24] VITALS: BMI 49.9
== END ==
PROVIDERS: PCP Family Medicine; Visit Provider Family Medicine
DX: N39.0 Urinary tract infection, site not specified (principal)
CPT/HCPCS: 87086; 87088

== ENCOUNTER 2020-09-28 13:24 | Inpatient (IN) | payer MEDICARE, MEDICAID, SELFPAY ==
[2020-08-21 01:24] VITALS: BMI 49.9
[2020-09-28 13:25] VITALS: BP 144/65; PULSE 73; RESP 16; TEMP 36.8; O2SAT 97; BMI 49.4
--- NOTE | 2020-09-28 13:52 | ED.VISSUMM ---
- ER Visit Summary Date of Service: 09/28/20 Chief Complaint: [Dysuria] History of Present Illness: The patient is a 75 F [presents to the emergency department with complaint of 2-day history of dysuria and lower abdominal pain. Patient states that she had a urinalysis checked yesterday and was told that she had an infection but no treatment was started yet. Patient is staying at an assisted living facility. She denies any fever or cough. She denies nausea or vomiting. Patient has had frequent UTIs in the past. Patient has had history of kidney stones but she states that this feels different than that. Patient describes pain, radiating into her lower back in both flanks. Patient has history of diabetes, hypertension, history of anxiety and history of DVT.] Physical Examination: [HEENT-PERRLA, EOMI. Cranial nerves II through XII grossly intact. TMs clear. Mucous membranes moist. No adenopathy. Cardiovascular-regular rate and rhythm without murmur or ectopy Lungs-clear to auscultation, chest wall stable without crepitus or subcu emphysema Abdomen-normoactive bowel sounds, soft. Patient has some mild diffuse tenderness over the lower abdomen. There is no rebound, rigidity, or peritoneal signs. Extremities-intact ?4, normal range of motion, normal pulses, atraumatic] Test Results: [CBC with differential obtained showed a white of 4.1, hemoglobin 11, hematocrit 35, platelet 231. Chemistries normal. Urinalysis was positive for 500 cassette esterase as well as nitrites. She had 25-50 WBCs and +2 bacteria. Urine culture was sent.] Emergency Department Course and Treatment: [The line established on arrival. Patient was given morphine and Zofran as well as Pyridium. I discussed results with patient and she states that typically pills do not work for her UTIs and typically she gets admitted for IV antibiotics. During her last visit for UTI she had VRE that was only sensitive to gentamicin and linezolid.] Treatment Plan: [Admit] Disposition: [Admit] Impression: [UTI Abdominal pain] This note was generated with [employer] software. It may contain incorrect words, spelling, and punctuation that were not noted in review of the chart prior to signing ED Disposition - Plan for ED Patient: Referrals: Gonzales Pinto MD [Primary Care Provider] -
[2020-09-28 14:19] LABS: Absolute Neutrophil Count 2.4 X10^3/uL (2.0-7.7); Basophil# 0.04 X10^3/uL; Eosinophils% 2.4 % (0-5); Hematocrit 35.5 % (37-47); Lymphocyte % 26.9 % (19-41); Mean Corpuscular Hgb 27.7 pg (27.0-32.0); Mean Corpuscular Volume 89.4 fL (81-99); Mean Platelet Vol. 9.8 fl (6.2-12.0); Monocyte# 0.45 X10^3/uL; NRBC Flagged by Analyzer 0 % (0-5); Neutrophil # 2.39 X10^3/uL (2.7-7.7); Neutrophil % 58.5 % (47-70); Platelet Count 231 K/mm3 (150-450); RBC Distribution Width CV 13.9 % (11.6-14.6); RBC Distribution Width SD 45.2 fl (35.1-43.9); Red Blood Count 3.97 M/mm3 (4.2-5.4); White Blood Count 4.1 K/mm3 (4.4-11.0)
[2020-09-28] MEDS: 0.9% Normal Saline 1,000 ML 150 ML IV (14:29)
[2020-09-28] MEDS: Ondansetron 4 MG/2 ML Vial IV (14:30)
[2020-09-28] MEDS: Phenazopyridine 95 MG Tablet 190 MG PO (14:30)
[2020-09-28] MEDS: Morphine 4 MG/ML Syringe IV (14:30)
[2020-09-28 14:32] LABS: Anion Gap 4 (5-15); BUN 13 mg/dL (7-18); BUN/Creat Ratio 16.4 RATIO (10-20); Calcium,Total 8.5 mg/dL (8.5-10.1); Chloride 107 mmol/L (98-107); EST Glomerular Filtration Rate 75 mL/min (>60); Est Glom Filt Rate - Afr Amer 91 mL/min (>60); Estimated Creatinine Clearance 55.52 ml/min; Glucose 90 mg/dL (74-106); Potassium 3.5 mmol/L (3.5-5.1); Sodium Level 140 mmol/L (136-145)
[2020-09-28 14:39] LABS: Mucous, Urine 0 SEEN /hpf (<or=2+)
[2020-09-28 14:45] LABS: Lactic Acid 1.4 mmol/L (0.4-1.9)
[2020-09-28 14:51] LABS: Color, Urine Yellow (Yellow); Glucose, Dipstick Normal (Normal); Ketone-Dipstick Negative (Negative); Leukocyte Esterase-Dipstick 500 /ul (Negative); Nitrite-Dipstick Positive (Negative); Occult Blood-Urine 150 /ul (Negative); Protein-Dipstick 15 mg/dl (Negative); Specific Gravity, Urine 1.015 (1.002-1.030); Urine Bilirubin Dipstick Negative (Negative); Urine Clarity Cloudy (Clear); Urine Urobilinogen Normal (Normal)
[2020-09-28 14:58] LABS: Bacteria 2+ /hpf (None Seen); Red Blood Cells-Urine 5-10 SEEN /hpf (0-5); Squamous Epithelial Cells - UA 0-5 SEEN /hpf (5-10); White Blood Cells 25-50 SEEN /hpf (0-5)
[2020-09-28 15:53] VITALS: BP 147/78; PULSE 71; RESP 16; O2SAT 99
[2020-09-28] MEDS: Ceftriaxone 1 GM/50 ML BAG IV (16:32)
[2020-09-28 16:40] VITALS: BP 129/67; PULSE 69; RESP 18; TEMP 36.3; O2SAT 97
--- NOTE | 2020-09-28 16:43 | PCM.HP.STD ---
Problem List (1) Cystitis Status: Acute (2) HTN (hypertension) Status: Chronic Qualifiers: (3) HLD (hyperlipidemia) Status: Chronic Qualifiers: (4) GERD (gastroesophageal reflux disease) Status: Chronic Qualifiers: (5) Anxiety and depression Status: Chronic (6) Chronic neuropathic pain Status: Chronic (7) 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 Status: Inactive (8) Rectus sheath hematoma Status: Resolved Qualifiers: (9) Unilateral primary osteoarthritis, right knee Status: Resolved (10) Chronic pain following surgery or procedure Status: Chronic (11) Morbid obesity with BMI of 45.0-49.9, adult Status: Chronic (12) ROXIE (obstructive sleep apnea) Status: Chronic Comment: says she got off CPAP_ when she had gastric bypass surgery ......wieghed 248 after bypass and was up to 312 recently but, has been losing weight, unintentional. (13) DM II (diabetes mellitus, type II), controlled Status: Chronic Qualifiers: Comment: states this was cured with the gastric bypass surgery (14) UTI (urinary tract infection) Status: Chronic Qualifiers: (15) Chronic anticoagulation Status: Chronic Comment: Eliquis (16) Diabetic neuropathy associated with type 2 diabetes mellitus Status: Chronic (17) Segmental and somatic dysfunction of cervical region Status: Chronic (18) Segmental and somatic dysfunction of pelvic region Status: Chronic (19) Facet arthropathy, lumbar Status: Chronic (20) Segmental and somatic dysfunction of thoracic region Status: Chronic (21) Segmental and somatic dysfunction of lumbar region Status: Chronic (22) History of DVT (deep vein thrombosis) Status: Chronic Comment: recurrent (23) History of gastric bypass Status: Chronic (24) Shortness of breath on exertion Status: Chronic History of Present Illness Date of Admission: 09/28/20 Chief Complaint: Urinary symptoms, suprapubic and flank pain. The patient is a 75 year old F who presents to the emergency room due to a 2-day history of urinary symptoms including dysuria, urinary frequency and hematuria as well as suprapubic pain and bilateral flank pain. She denies fever, chills. Denies nausea, vomiting. Patient reports a history of recurrent complicated UTIs. She reports assisted living facility performed urinalysis which appeared infected however she is not aware of culture being completed. Patient had a recent admission for rectus sheath hematoma and has been off of her Eliquis since that time. She denies further left-sided abdominal pain. She denies other associated symptoms or complaints. She has a past medical history of recurrent complicated UTIs with resistance, hypertension, hyperlipidemia, anxiety, depression, morbid obesity, GERD, history of DVT status post IVC filter placement, type 2 diabetes mellitus, history of ROXIE. Past Medical History Past Medical History (Chronic Problems): Chronic Problems (Last Reviewed 05/25/20 @ 00:[address] Elpidio Faust MD) HTN (hypertension) (Chronic) HLD (hyperlipidemia) (Chronic) GERD (gastroesophageal reflux disease) (Chronic) Anxiety and depression (Chronic) Chronic neuropathic pain (Chronic) Chronic pain following surgery or procedure (Chronic) Morbid obesity with BMI of 45.0-49.9, adult (Chronic) ROXIE (obstructive sleep apnea) (Chronic) says she got off CPAP_ when she had gastric bypass surgery ......wieghed 248 after bypass and was up to 312 recently but, has been losing weight, unintentional. 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) Segmental and somatic dysfunction of cervical region (Chronic) Segmental and somatic dysfunction of pelvic region (Chronic) Facet arthropathy, lumbar (Chronic) Segmental and somatic dysfunction of thoracic region (Chronic) Segmental and somatic dysfunction of lumbar region (Chronic) History of DVT (deep vein thrombosis) (Chronic) recurrent History of gastric bypass (Chronic) Shortness of breath on exertion (Chronic) Medical History: Medical History (Last Reviewed 05/25/20 @ 00:[address] Elpidio Faust MD) Arthritis M19.90 Bilateral headaches R51 Carpal tunnel syndrome G56.00 Cataracts, both eyes H26.9 Closed left arm fracture S42.302A Diabetes E11.9 FHx: cholecystectomy Z84.89 Heart disease I51.9 History of gallstones Z87.19 Neuropathy G62.9 Osteoarthritis M19.90 Polycystic ovaries E28.2 Hypertension I10 Allergies ampicillin [From Unasyn] Allergy (Severe, Verified 09/28/20 13:32) Other Blisters on tongue /throat difficulty breathing sore tongue/throat warfarin sodium [From Coumadin] Allergy (Severe, Verified 09/28/20 13:32) Low red blood cells Home Medications: Ambulatory Orders Medication Instructions Recorded Cholecalciferol (VIT D3) [Vitamin 1,000 unit PO DAILY 12/29/15 D3] Duloxetine Hcl [Cymbalta] 60 mg PO DAILY 12/29/15 Pravastatin [Pravachol] 40 mg PO QHS 08/05/18 Fluticasone 0.05% [Flonase Nasal 2 spray NASAL DAILY 03/18/19 [place]] Furosemide [Lasix] 60 mg PO DAILY 03/18/19 Primidone 100 mg PO QHS 03/18/19 SimETHICONE [Mylicon] 80 mg PO TIDCM 03/18/19 Lactobacillus Acidophilus 1 ea PO DAILY 09/06/19 [Acidophilus] Mirabegron [Myrbetriq] 50 mg PO QHS 01/24/20 Famotidine [Pepcid] 20 mg PO BID 03/23/20 Gabapentin [Neurontin] 400 mg PO TID 07/09/20 Divalproex Sodium [Depakote] 500 mg PO BID #0 07/11/20 Bupropion HCl [Bupropion Xl] 150 mg PO DAILY 08/09/20 D-Mannose 1,000 mg PO BID 08/09/20 Estrogens, Conjugated [Premarin] 1 g VAGINAL WESA 08/09/20 Acetaminophen [Tylenol Tablet] 650 mg PO Q4H PRN PRN 08/20/20 Mag Hydrox/Aluminum Hyd/Simeth 30 ml PO Q4H PRN PRN 08/20/20 [Antacid Suspension] Oxybutynin Chloride [Oxybutynin 10 mg PO DAILY 08/20/20 Chloride ER] Polyethylene Glycol 3350 [Miralax] 17 gm PO DAILY PRN 08/20/20 Albuterol Aerosols [Ventolin 2.5 mg INHALATION Q2H PRN PRN 08/22/20 Aerosols] vial.neb. Ascorbic Acid [Vitamin C] 500 mg PO BIDCM 09/28/20 Oxycodone HCl 5 mg PO Q4H PRN 09/28/20 Surgical History: Surgical History (Last Reviewed 05/25/20 @ 01:[address] 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 Elpidio Faust MD) Other Heart disease High cholesterol Hypertension Myocardial infarction History Items: Cancer, Heart Disease Maternal Family History: Family History (Last Reviewed 05/25/20 @ 00:[address] Elpidio Faust MD) Other Heart disease High cholesterol Hypertension Myocardial infarction History Items: Heart Disease, Hypertension Review of Systems Constitutional: Reports: Malaise. Denies: Chills, Fever, Weight Change HEENT: Denies: Head Aches, Sinus Congestion, Sinus Drainage Cardiovascular: Denies: Chest Pain, Palpitations Respiratory: Denies: Cough, Shortness of breath at rest, Sputum production Gastrointestinal: Denies: Abdominal Pain, Nausea, Vomiting Genitourinary: Reports: Dysuria, Frequency, Hematuria, Urgency, - - Suprapubic tenderness, flank pain Musculoskeletal: Denies: Joint Pain, Joint Tenderness Skin: Denies: Rash, Wounds Neurological: Denies: Numbness, Tingling, Focal weakness Psychiatric: Reports: Anxiety, Depression Hematologic/ Lymphatic: Denies: Easy Bruising, Easy Bleeding VTE Information - Inpt Only VTE Present on Admission: No VTE Mechan Device Prophylaxis: SCD's VTE Pharm Prophylaxis ordered?: No Reason prophylaxis not ordered:: Medical Contraindication Patient Problems: Active and Suspected Problems (Last Reviewed 05/25/20 @ 00:[address] Elpidio Faust MD) Cystitis (Acute) - Physical Exam Vitals/I&O's: Vital Signs Temp Pulse Resp BP Pulse Ox 97.4 F L 69 18 129/67 H 97 09/28/20 16:40 09/28/20 16:40 09/28/20 16:40 09/28/20 16:40 09/28/20 16:40 Oxygen Delivery Method Room Air Weight: 297 lb Body Mass Index (BMI) 49.4 General: Alert, Oriented x3, Cooperative HEENT: Atraumatic, PERRLA, EOMI, Normocephalic Neck: Supple, No JVD, Negative Carotid Bruits Lungs: Clear to auscultation, Normal air movement Cardiovascular: Regular rate, No murmurs Abdomen: Bowel Sounds Present, Soft, Non-Distended, Obese, - - Suprapubic tenderness Extremities: No clubbing, No cyanosis, No edema, Capillary Refill Less than 3 Seconds Skin: No rashes, No breakdown Musculoskeletal: No Tenderness to Palpation of Joints or Extremities Neurological: Cranial nerves II-XII grossly intact, Neuro grossly intact Psych/Mental Status: Normal Affect, Appropriate Laboratory Results 09/28/20 13:55: WBC 4.1 L, RBC 3.97 L, Hgb 11.0 L, Hct 35.5 L, MCV 89.4, MCH 27.7, MCHC 31.0 L, RDW Std Deviation 45.2 H, RDW Coeff of Chani 13.9, Plt Count 231, MPV 9.8, Immature Gran % (Auto) 0.200, Neut % (Auto) 58.5, Lymph % (Auto) 26.9, Sw[place] % (Auto) 11.0 H, Eos % (Auto) 2.4, Baso % (Auto) 1.0, Absolute Neuts (auto) 2.4, Absolute Lymphs (auto) 1.10, Nucleated RBC % 0 09/28/20 13:55: Sodium 140, Potassium 3.5, Chloride 107, Carbon Dioxide 29.0, Anion Gap 4 L, BUN 13, Creatinine 0.80, Estim Creat Clear Calc 55.52, Est GFR (MDRD) Af Amer 91, Est GFR (MDRD) Non-Af 75, BUN/Creatinine Ratio 16.4, Glucose 90, Calcium 8.5 09/28/20 13:55: Lactic Acid 1.4 09/28/20 14:30: Urine Color Yellow, Urine Clarity Cloudy, Urine pH 6.0, Ur Specific [place] 1.015, Urine Protein 15 H, Urine Glucose (UA) Normal, Urine Ketones Negative, Urine Occult Blood 150 H, Urine Nitrite Positive H, Urine Bilirubin Negative, Urine Urobilinogen Normal, Ur Leukocyte Esterase 500 H, Urine RBC 5-10 SEEN, Urine WBC 25-50 SEEN, Ur Squamous Epith Cells 0-5 SEEN, Urine Bacteria 2+, Urine Mucus 0 SEEN Current Medications Sodium Chloride () 1,000 mls @ 150 mls/hr IV .Q6H40M ELVA Last Admin: 09/28/20 14:29 Dose: 150 mls/hr Documented by: Assessment/Plan All Active Problems (Last Reviewed 05/25/20 @ 00:[address] Elpidio Faust MD) Cystitis (Acute) Rectus sheath hematoma (Resolved) Unilateral primary osteoarthritis, right knee (Resolved) Abdominal pain (Resolved) 1. Acute complicated recurrent UTI, history of recurrent complicated/resistant UTIs-ID consult. IV meropenem pending repeat cx. Most recent cultures grew VRE, Klebsiella. Patient is following with Dr. Villavicencio, female urology as outpatient. On methenamine and vitamin C for prophylaxis. 2. History of type 2 diabetes mellitus with diabetic peripheral neuropathy-diet controlled following bypass. Previous hemoglobin A1c June 2020 5.2%. On gabapentin and Depakote for neuropathy. 3. History of DVT-status post IVC filter placement. Previously on Eliquis however this was recently discontinued due to rectus sheath hematoma. Will resume as it has been greater than one month with no further issues. 4. Anemia of chronic disease/iron deficiency anemia- stable. 5. Depression/anxiety-continue bupropion, duloxetine. 6. Hyperlipidemia-continue statin. 7. Morbid obesity-history of gastric bypass. Encouraged diet and lifestyle modifications. 8. GERD-on famotidine. 9. Hypertension-on Lasix. DVT prophylaxis- Resume home Eliquis This patient was seen by MEGHANA Carbajal under the supervision of Dr. Odom.
[2020-09-28 17:41] VITALS: BMI 49.4
[2020-09-28 17:42] VITALS: BP 118/55; PULSE 68; RESP 16; TEMP 36.6; O2SAT 99
[2020-09-28] MEDS: Morphine 2 MG/ML Syringe IV ×2 (18:23→21:41)
[2020-09-28] MEDS: 0.9% Saline Lock 10 ML Syringe IV (18:24)
[2020-09-28 21:37] VITALS: BP 110/52; PULSE 82; RESP 18; TEMP 36.3; O2SAT 92
[2020-09-28] MEDS: Divalproex Sodium 250 MG Tablet 500 MG PO (21:42)
[2020-09-28] MEDS: Mirabegron 50 MG TAB.ER.24H PO (21:43)
[2020-09-28] MEDS: Primidone 50 MG Tablet 100 MG PO (21:44)
[2020-09-28] MEDS: Famotidine 20 MG Tablet PO (21:44)
[2020-09-28] MEDS: Pravastatin 40 MG Tablet PO (21:44)
[2020-09-28] MEDS: APIXABAN 5 MG TABLET PO (21:52)
[2020-09-29 02:24] VITALS: BP 111/47; PULSE 80; RESP 18; TEMP 36.6; O2SAT 98
[2020-09-29] MEDS: Morphine 2 MG/ML Syringe IV ×2 (02:29→06:46)
[2020-09-29] MEDS: Acetaminophen 325 MG Tablet 650 MG PO ×3 (05:28→18:36)
[2020-09-29] MEDS: 0.9% Saline Lock 10 ML Syringe IV ×2 (05:28→18:36)
[2020-09-29 06:47] LABS: Absolute Lymphocyte Count 1.15 X10^3/uL (0.83-4.51); Absolute Neutrophil Count 3.5 X10^3/uL (2.0-7.7); Basophil# 0.04 X10^3/uL; Basophil% 0.8 % (0-1); Eosinophil# 0.15 X10^3/uL; Eosinophils% 2.8 % (0-5); Hematocrit 34.2 % (37-47); Hemoglobin 10.4 g/dL (12.0-15.0); Lymphocyte # 1.15 X10^3/ul (4.0); Lymphocyte % 21.6 % (19-41); Mean Corp Hgb Conc 30.4 g/dL (32-36); Mean Corpuscular Hgb 27.4 pg (27.0-32.0); Mean Corpuscular Volume 90.2 fL (81-99); Mean Platelet Vol. 9.6 fl (6.2-12.0); Monocyte# 0.51 X10^3/uL; Monocyte% 9.6 % (0-10); NRBC Flagged by Analyzer 0 % (0-5); Neutrophil # 3.46 X10^3/uL (2.7-7.7); Platelet Count 209 K/mm3 (150-450); RBC Distribution Width CV 13.7 % (11.6-14.6); RBC Distribution Width SD 45.2 fl (35.1-43.9); Red Blood Count 3.79 M/mm3 (4.2-5.4); White Blood Count 5.3 K/mm3 (4.4-11.0)
[2020-09-29 07:14] LABS: Anion Gap 4 (5-15); BUN 16 mg/dL (7-18); BUN/Creat Ratio 22.8 RATIO (10-20); Chloride 108 mmol/L (98-107); EST Glomerular Filtration Rate 87 mL/min (>60); Est Glom Filt Rate - Afr Amer 105 mL/min (>60); Estimated Creatinine Clearance 44.41 ml/min; Glucose 81 mg/dL (74-106); Potassium 3.9 mmol/L (3.5-5.1); Sodium Level 137 mmol/L (136-145)
[2020-09-29 09:43] VITALS: BP 100/56; PULSE 68; RESP 18; TEMP 36.6; O2SAT 98
[2020-09-29] MEDS: Ascorbic Acid 500 MG Tablet PO ×2 (09:54→18:05)
[2020-09-29] MEDS: Tolterodine Tartrate 2 MG CAP.SA PO (09:54)
[2020-09-29] MEDS: Gabapentin 400 MG Capsule PO ×3 (09:54→18:05)
[2020-09-29] MEDS: Famotidine 20 MG Tablet PO ×2 (09:56→22:21)
[2020-09-29] MEDS: DULoxetine Hcl 60 MG Capsule PO (09:56)
[2020-09-29] MEDS: APIXABAN 5 MG TABLET PO ×2 (09:56→22:20)
[2020-09-29] MEDS: Cholecalciferol (VIT D3) 25 MCG TABLET (1,000 UNITS) PO (09:57)
[2020-09-29] MEDS: Divalproex Sodium 250 MG Tablet 500 MG PO ×2 (09:57→22:21)
[2020-09-29] MEDS: Furosemide 40 MG Tablet 60 MG PO (09:57)
[2020-09-29] MEDS: buPROPion (XL) 150 MG TABLET.XL PO (09:58)
[2020-09-29] MEDS: Polyethylene Glycol 3350 17 GM PACKET PO (10:16)
--- NOTE | 2020-09-29 10:48 | CASEMGMT ---
Addendum entered by Maria E Martinez 09/29/20 10:55: RUKHSANA also placed a call to pt's CM Brook Schawrz and updated her on pt's admission to [facility]. Original Note: Social Work Note Pt is listed as being from [facility]. SW in to speak with pt. SW introduced self and role at [facility]. Pt states she remembers this worker from previous visits. Pt confirms she came from [facility] would like to return. SW informed pt that ID will be seeing pt and making recommendations. If pt needs IV antibiotics, pt will need a SNF again. Pt states understanding. RUKHSANA placed a call to Wallace at [facility] and left him a message regarding pt's admission and that pt would like to return to [facility] if possible. RUKHSANA faxed updated clinicals to [facility]. Plan: TBD pending course of treatment Maria E Martinez BUSINESS BANKING OFFICER, FIRE ENGINE PUMP OPERATOR
--- NOTE | 2020-09-29 13:17 | CON.PCM_ITS ---
Reason for Consult: Recurrent urinary tract infection Consulted by: Dr. Odom History of Present Illness: The patient is a 75 year old F [] Is a very pleasant 75-year-old white female who resides at an assisted living arrangement for the past 2 years with a past medical history obesity, thromboembolic disease on anticoagulation therapy who was recently hospitalized roughly 2 months ago with a complicated urinary tract infection with a multidrug-resistant gram-negative pathogen. Patient does see a urologist as an outpatient, patient also did have a CT scan of the abdomen pelvis on her previous hospitalization in July. 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 Patient denies any fevers or chills. She is currently on meropenem empirically. Her urine culture is growing gram 10 to the 5th gram-negative pathogen with identification and sensitivities pending. No cardiopulmonary distress. No gastrointestinal symptoms. Patient does have continence of urine and complains of dysuria. - Medical History Past Medical History (Chronic Problems): Chronic Problems (Last Reviewed 05/25/20 @ 00:[address] Elpidio Faust MD) HTN (hypertension) (Chronic) HLD (hyperlipidemia) (Chronic) GERD (gastroesophageal reflux disease) (Chronic) Anxiety and depression (Chronic) Chronic neuropathic pain (Chronic) Chronic pain following surgery or procedure (Chronic) Morbid obesity with BMI of 45.0-49.9, adult (Chronic) ROXIE (obstructive sleep apnea) (Chronic) says she got off CPAP_ when she had gastric bypass surgery ......wieghed 248 after bypass and was up to 312 recently but, has been losing weight, unintentional. 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) Segmental and somatic dysfunction of cervical region (Chronic) Segmental and somatic dysfunction of pelvic region (Chronic) Facet arthropathy, lumbar (Chronic) Segmental and somatic dysfunction of thoracic region (Chronic) Segmental and somatic dysfunction of lumbar region (Chronic) History of DVT (deep vein thrombosis) (Chronic) recurrent History of gastric bypass (Chronic) Shortness of breath on exertion (Chronic) Allergies/Adverse Reactions: Allergies ampicillin [From Unasyn] Allergy (Severe, Verified 09/28/20 13:32) Other Blisters on tongue /throat difficulty breathing sore tongue/throat warfarin sodium [From Coumadin] Allergy (Severe, Verified 09/28/20 13:32) Low red blood cells Home Medications: Ambulatory Orders Medication Instructions Recorded Cholecalciferol (VIT D3) [Vitamin 1,000 unit PO DAILY 12/29/15 D3] Duloxetine Hcl [Cymbalta] 60 mg PO DAILY 12/29/15 Pravastatin [Pravachol] 40 mg PO QHS 08/05/18 Fluticasone 0.05% [Flonase Nasal 2 spray NASAL DAILY 03/18/19 [place]] Furosemide [Lasix] 60 mg PO DAILY 03/18/19 Primidone 100 mg PO DAILY 03/18/19 SimETHICONE [Mylicon] 80 mg PO TIDCM 03/18/19 Mirabegron [Myrbetriq] 50 mg PO QHS 01/24/20 Famotidine [Pepcid] 20 mg PO DAILY 03/23/20 Gabapentin [Neurontin] 400 mg PO TID 07/09/20 Divalproex Sodium [Depakote] 500 mg PO BID #0 07/11/20 Bupropion HCl [Bupropion Xl] 150 mg PO DAILY 08/09/20 D-Mannose 1,000 mg PO BID 08/09/20 Mag Hydrox/Aluminum Hyd/Simeth 30 ml PO Q4H PRN PRN 08/20/20 [Antacid Suspension] Oxybutynin Chloride [Oxybutynin 10 mg PO DAILY 08/20/20 Chloride ER] Polyethylene Glycol 3350 [Miralax] 17 gm PO DAILY PRN 08/20/20 Albuterol Aerosols [Ventolin 2.5 mg INHALATION Q2H PRN PRN 08/22/20 Aerosols] vial.neb. Acetaminophen [Tylenol Extra 500 - 1,000 mg PO Q6H PRN PRN 09/28/20 Strength] Ascorbic Acid [Vitamin C] 500 mg PO DAILY 09/28/20 Guaifenesin Dm [Robitussin Dm] 10 ml PO Q4H PRN 09/28/20 Magnesium Hydroxide [Milk Of 30 ml PO DAILY PRN PRN 09/28/20 Magnesia] Nystatin Powder [Mycostatin Powder] 1 applic TOPICAL 4X/DAY PRN PRN 09/28/20 Oxycodone HCl 5 mg PO Q4H PRN 09/28/20 Vital Signs Temp Pulse Resp BP Pulse Ox 97.8 F 68 18 100/56 L 98 09/29/20 09:43 09/29/20 09:43 09/29/20 09:43 09/29/20 09:43 09/29/20 09:43 Oxygen Delivery Method Room Air Weight: 134.7 kg Body Mass Index (BMI) 49.4 Microbiology Past 72 Hours 09/28/20 14:30 Urine Culture - Preliminary Urine Catheter - Catheter 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 Laboratory Tests Past 24 Hrs 09/28/20 09/28/20 09/28/20 13:55 13:55 13:55 WBC 4.1 L RBC 3.97 L Hgb 11.0 L Hct 35.5 L MCV 89.4 MCH 27.7 MCHC 31.0 L RDW Std Deviation 45.2 H RDW Coeff of Chani 13.9 Plt Count 231 MPV 9.8 Immature Gran % (Auto) 0.200 Neut % (Auto) 58.5 Lymph % (Auto) 26.9 [place] % (Auto) 11.0 H Eos % (Auto) 2.4 Baso % (Auto) 1.0 Absolute Neuts (auto) 2.4 Absolute Lymphs (auto) 1.10 Nucleated RBC % 0 Sodium 140 Potassium 3.5 Chloride 107 Carbon Dioxide 29.0 Anion Gap 4 L BUN 13 Creatinine 0.80 Estim Creat Clear Calc 55.52 Est GFR (MDRD) Af Amer 91 Est GFR (MDRD) Non-Af 75 BUN/Creatinine Ratio 16.4 Glucose 90 Lactic Acid 1.4 Calcium 8.5 Urine Color Urine Clarity Urine pH Ur Specific [place] Urine Protein Urine Glucose (UA) Urine Ketones Urine Occult Blood Urine Nitrite Urine Bilirubin Urine Urobilinogen Ur Leukocyte Esterase Urine RBC Urine WBC Ur Squamous Epith Cells Urine Bacteria Urine Mucus 09/28/20 09/29/20 09/29/20 14:30 06:40 06:40 WBC 5.3 RBC 3.79 L Hgb 10.4 L Hct 34.2 L MCV 90.2 MCH 27.4 MCHC 30.4 L RDW Std Deviation 45.2 H RDW Coeff of Chani 13.7 Plt Count 209 MPV 9.6 Immature Gran % (Auto) 0.200 Neut % (Auto) 65.0 Lymph % (Auto) 21.6 [place] % (Auto) 9.6 Eos % (Auto) 2.8 Baso % (Auto) 0.8 Absolute Neuts (auto) 3.5 Absolute Lymphs (auto) 1.15 Nucleated RBC % 0 Sodium 137 Potassium 3.9 Chloride 108 H Carbon Dioxide 25.0 Anion Gap 4 L BUN 16 Creatinine 0.70 Estim Creat Clear Calc 44.41 Est GFR (MDRD) Af Amer 105 Est GFR (MDRD) Non-Af 87 BUN/Creatinine Ratio 22.8 H Glucose 81 Lactic Acid Calcium 8.0 L Urine Color Yellow Urine Clarity Cloudy Urine pH 6.0 Ur Specific [place] 1.015 Urine Protein 15 H Urine Glucose (UA) Normal Urine Ketones Negative Urine Occult Blood 150 H Urine Nitrite Positive H Urine Bilirubin Negative Urine Urobilinogen Normal Ur Leukocyte Esterase 500 H Urine RBC 5-10 SEEN Urine WBC 25-50 SEEN Ur Squamous Epith Cells 0-5 SEEN Urine Bacteria 2+ Urine Mucus 0 SEEN - Other Studies Radiology: [] Other Studies: [] Route of nutrition/ use of supplements: [] Nutritional Intake: [] IV Site: [] Adler Catheter: [] Patient is alert responsive does not appear toxic lungs are clear heart exam S1- S2 abdomen is obese but soft no focal tenderness. No CVA tenderness. - Assessment/Plan Antibiotics: [] Assessment/Plan: [] Active and Suspected Problems (Last Reviewed 05/25/20 @ 00:[address] Elpidio Faust MD) Cystitis (Acute) Recurrent urinary tract infection. At this time we will continue meropenem empirically and closely follow the identification and sensitivities of the gram- negative pathogen in the tract.
--- NOTE | 2020-09-29 14:06 | PCM.PN.HOSP ---
Patient Problems: Active and Suspected Problems (Last Reviewed 05/25/20 @ 00:[address] Elpidio Faust MD) Cystitis (Acute) Subjective: Patient seen and examined. She had no complaints today. She was admitted with a complaint of suprapubic and flank pain as well as urinary symptoms and has been managed for acute recurrent UTI. She has remained hemodynamically stable. Vitals/I&O's: Vital Signs Temp Pulse Resp BP Pulse Ox 97.8 F 68 18 100/56 L 98 09/29/20 09:43 09/29/20 09:43 09/29/20 09:43 09/29/20 09:43 09/29/20 09:43 Oxygen Delivery Method Room Air Weight: 296 lb 15.402 oz Body Mass Index (BMI) 49.4 Intake and Output for Last 24 Hours 09/27/20 09/28/20 09/29/20 23:59 23:59 23:59 Intake Total 1500 / 1500 940 / 940 Output Total 1000 / 1000 Balance 1500 / 1500 -60 / -60 General: Alert, Oriented x3, Cooperative, - - obese HEENT: Atraumatic, PERRLA, EOMI, Normocephalic Oral: Dry Mucosa Neck: Supple, No JVD, Negative Carotid Bruits Lungs: Clear to auscultation, Normal air movement, No rhonchi, No wheeze, No rales Cardiovascular: Regular rate, Regular Rhythm, Normal S1, Normal S2, No murmurs Abdomen: Bowel Sounds Present, Soft, Non Tender, Non-Distended, No Hepato-splenomegaly Extremities: No clubbing, No cyanosis, No edema, Capillary Refill Less than 3 Seconds Skin: No rashes, No breakdown Musculoskeletal: No Tenderness to Palpation of Joints or Extremities Lymphatic: No Cervical, Supraclavicular, or Inguinal Adenopathy Neurological: Cranial nerves II-XII grossly intact, Neuro grossly intact, Motor Exam 5/5 strength throughout Psych/Mental Status: Normal Affect, Appropriate, Alert and oriented to time, place, person, mood and affect Microbiology Past 72 Hours 09/28/20 14:30 Urine Catheter - Catheter Urine Culture - Preliminary GNR lactose paperhanger pipe Laboratory Results 09/28/20 13:55: WBC 4.1 L, RBC 3.97 L, Hgb 11.0 L, Hct 35.5 L, MCV 89.4, MCH 27.7, MCHC 31.0 L, RDW Std Deviation 45.2 H, RDW Coeff of Chani 13.9, Plt Count 231, MPV 9.8, Immature Gran % (Auto) 0.200, Neut % (Auto) 58.5, Lymph % (Auto) 26.9, [place] % (Auto) 11.0 H, Eos % (Auto) 2.4, Baso % (Auto) 1.0, Absolute Neuts (auto) 2.4, Absolute Lymphs (auto) 1.10, Nucleated RBC % 0 09/28/20 13:55: Sodium 140, Potassium 3.5, Chloride 107, Carbon Dioxide 29.0, Anion Gap 4 L, BUN 13, Creatinine 0.80, Estim Creat Clear Calc 55.52, Est GFR (MDRD) Af Amer 91, Est GFR (MDRD) Non-Af 75, BUN/Creatinine Ratio 16.4, Glucose 90, Calcium 8.5 09/28/20 13:55: Lactic Acid 1.4 09/28/20 14:30: Urine Color Yellow, Urine Clarity Cloudy, Urine pH 6.0, Ur Specific [place] 1.015, Urine Protein 15 H, Urine Glucose (UA) Normal, Urine Ketones Negative, Urine Occult Blood 150 H, Urine Nitrite Positive H, Urine Bilirubin Negative, Urine Urobilinogen Normal, Ur Leukocyte Esterase 500 H, Urine RBC 5-10 SEEN, Urine WBC 25-50 SEEN, Ur Squamous Epith Cells 0-5 SEEN, Urine Bacteria 2+, Urine Mucus 0 SEEN 09/29/20 06:40: WBC 5.3, RBC 3.79 L, Hgb 10.4 L, Hct 34.2 L, MCV 90.2, MCH 27.4, MCHC 30.4 L, RDW Std Deviation 45.2 H, RDW Coeff of Chani 13.7, Plt Count 209, MPV 9.6, Immature Gran % (Auto) 0.200, Neut % (Auto) 65.0, Lymph % (Auto) 21.6, [place] % (Auto) 9.6, Eos % (Auto) 2.8, Baso % (Auto) 0.8, Absolute Neuts (auto) 3.5, Absolute Lymphs (auto) 1.15, Nucleated RBC % 0 09/29/20 06:40: Sodium 137, Potassium 3.9, Chloride 108 H, Carbon Dioxide 25.0, Anion Gap 4 L, BUN 16, Creatinine 0.70, Estim Creat Clear Calc 44.41, Est GFR (MDRD) Af Amer 105, Est GFR (MDRD) Non-Af 87, BUN/Creatinine Ratio 22.8 H, Glucose 81, Calcium 8.0 L Current Medications Acetaminophen (Acetaminophen 325 Mg Tablet) 650 mg PO Q6H PRN PRN PRN Reason: Pain Score 1-10/Temp > 100.7 F Last Admin: 09/29/20 11:46 Dose: 650 mg Documented by: Albuterol Sulfate (Albuterol 2.5 Mg/3 Ml Vial.Neb.) 2.5 mg INHALATION Q2H PRN PRN PRN Reason: Dyspnea, wheezing Apixaban (Apixaban 5 Mg Tablet) 5 mg PO BID REPLACED BY [facility] Last Admin: 09/29/20 09:56 Dose: 5 mg Documented by: Ascorbic Acid (Ascorbic Acid 500 Mg Tablet) 500 mg PO BIDCM REPLACED BY [facility] Last Admin: 09/29/20 09:54 Dose: 500 mg Documented by: Bupropion HCl (Bupropion (Xl) 150 Mg Tablet.Xl) 150 mg PO DAILY REPLACED BY [facility] Last Admin: 09/29/20 09:58 Dose: 150 mg Documented by: Cholecalciferol (Cholecalciferol (Vit D3) 25 Mcg Tablet (1,000 Units)) 25 mcg PO DAILY REPLACED BY [facility] Last Admin: 09/29/20 09:57 Dose: 25 mcg Documented by: Divalproex Sodium (Divalproex Sodium 250 Mg Tablet) 500 mg PO BID REPLACED BY [facility] Last Admin: 09/29/20 09:57 Dose: 500 mg Documented by: Duloxetine HCl (Duloxetine Hcl 60 Mg Capsule) 60 mg PO DAILY REPLACED BY [facility] Last Admin: 09/29/20 09:56 Dose: 60 mg Documented by: Famotidine (Famotidine 20 Mg Tablet) 20 mg PO BID REPLACED BY [facility] Last Admin: 09/29/20 09:56 Dose: 20 mg Documented by: Furosemide (Furosemide 40 Mg Tablet) 60 mg PO DAILY REPLACED BY [facility] Last Admin: 09/29/20 09:57 Dose: 60 mg Documented by: Gabapentin (Gabapentin 400 Mg Capsule) 400 mg PO TIDCM REPLACED BY [facility] Last Admin: 09/29/20 11:46 Dose: 400 mg Documented by: Meropenem 1 gm/ Sodium (Chloride) 120 mls @ 33 mls/hr IV Q8 REPLACED BY [facility] Stop: 10/05/20 19:01 Last Infusion: 09/29/20 09:07 Dose: Infused Documented by: Mirabegron (Mirabegron 50 Mg Tab.Er.24h) 50 mg PO QHS REPLACED BY [facility] Last Admin: 09/28/20 21:43 Dose: 50 mg Documented by: Morphine Sulfate (Morphine 2 Mg/Ml Syringe) 2 mg IV Q3H PRN PRN PRN Reason: Pain Score 6-10 Last Admin: 09/29/20 06:46 Dose: 2 mg Documented by: Ondansetron HCl (Ondansetron 4 Mg/2 Ml Vial) 4 mg IV Q8H PRN PRN PRN Reason: NAUSEA/VOMITING Oxycodone HCl (Oxycodone 5 Mg Tablet) 5 mg PO Q4H PRN PRN PRN Reason: Pain Score 4-5 Polyethylene Glycol (Polyethylene Glycol 3350 17 Gm Packet) 17 gm PO DAILY PRN PRN Reason: Constipation Last Admin: 09/29/20 10:16 Dose: 17 gm Documented by: Pravastatin Sodium (Pravastatin 40 Mg Tablet) 40 mg PO QHS REPLACED BY [facility] Last Admin: 09/28/20 21:44 Dose: 40 mg Documented by: Primidone (Primidone 50 Mg Tablet) 100 mg PO QHS REPLACED BY [facility] Last Admin: 09/28/20 21:44 Dose: 100 mg Documented by: Simethicone (Simethicone 80 Mg Tablet) 80 mg PO TIDCM REPLACED BY [facility] Last Admin: 09/29/20 11:46 Dose: 80 mg Documented by: Sodium Chloride (0.9% Saline Lock 10 Ml Syringe) 10 - 40 ml IV UD PRN PRN Reason: SALINE FLUSH Last Admin: 09/29/20 05:28 Dose: 10 ml Documented by: Tolterodine Tartrate (Tolterodine Tartrate 2 Mg Cap.Sa) 2 mg PO DAILY REPLACED BY [facility] Last Admin: 09/29/20 09:54 Dose: 2 mg Documented by: Medical Necessity - Tobacco Use Smoking Status: Never smoker Assessment/Plan All Active Problems (Last Reviewed 05/25/20 @ 00:[address] Elpidio Faust MD) Cystitis (Acute) Rectus sheath hematoma (Resolved) Unilateral primary osteoarthritis, right knee (Resolved) Abdominal pain (Resolved) #Acute complicated recurrent UTI has a history of recurrent UTIs. on IV meropenem; recent cultures grew VRE and Klebsiella ID consulted- to continue meropenem blood and urine cultures pending #history of DVT s/p IVC filter was previously on eliquis. This was resumed on admission. I am not sure why she will need eliquis if she has an IVC filter. IVC filter was placed in 2010. she had a left rectus sheath hematoma ~ 1 month ago (~ 7.3cm). Eliquis was held then. I will clarify with her PCP #History of type 2 diabetes mellitus diet controlled. on depakote and gabapentin for neuropathy #Anemia: stable #Hyperlipidemia: on statin #Acute obesity: Status post gastric bypass. Stable. #GERD: On famotidine #Hypertension: well controlled. Currently on lasix DVT prophylaxis: on eliquis Inpatient E&M: 15655 Subs Hosp L2
[2020-09-29 15:08] VITALS: BP 91/52; PULSE 64; RESP 16; TEMP 36.6; O2SAT 94
--- NOTE | 2020-09-29 15:53 | CASEMGMT ---
Social Work Note SW faxed updated clinicals, PT/OT, COVID test to [facility]. Pt is able to discharge back to [facility] as long as pt DOESN'T NEED IV ANTIBIOTICS. IF PT NEEDS IV ANTIBIOTICS PT WILL NOT BE ABLE TO DISCHARGE BACK TO [facility]. Green sheet, transport form, COVID tool on pt's chart. Plan: If pt doesn't need IV antibiotics, pt can return to [facility]. If pt needs IV antibiotics, pt will need to remain at [facility] until Friday when SNF can be arranged. Maria E Martinez [employer], ANIMAL HUSBANDRY MANAGER
[2020-09-29] MEDS: oxyCODONE 5 MG Tablet PO ×2 (18:36→23:07)
[2020-09-29 22:15] VITALS: BP 119/64; PULSE 79; RESP 16; TEMP 36.8; O2SAT 94
[2020-09-29] MEDS: Primidone 50 MG Tablet 100 MG PO (22:20)
[2020-09-29] MEDS: Pravastatin 40 MG Tablet PO (22:20)
[2020-09-29] MEDS: Mirabegron 50 MG TAB.ER.24H PO (22:21)
[2020-09-29] MEDS: BENZOCAINE/MENTHOL 1 LOZENGE 2 LOZENGE MUCOUS MEM (22:21)
[2020-09-30 04:35] VITALS: BP 119/97; PULSE 68; RESP 16; TEMP 36.4; O2SAT 95
[2020-09-30 07:21] LABS: Absolute Lymphocyte Count 1.27 X10^3/uL (0.83-4.51); Absolute Neutrophil Count 1.9 X10^3/uL (2.0-7.7); Basophil# 0.03 X10^3/uL; Basophil% 0.8 % (0-1); Eosinophil# 0.12 X10^3/uL; Eosinophils% 3.1 % (0-5); Hematocrit 34.4 % (37-47); Hemoglobin 10.4 g/dL (12.0-15.0); Lymphocyte # 1.27 X10^3/ul (4.0); Lymphocyte % 33.3 % (19-41); Mean Corp Hgb Conc 30.2 g/dL (32-36); Mean Corpuscular Hgb 27.2 pg (27.0-32.0); Mean Corpuscular Volume 90.1 fL (81-99); Mean Platelet Vol. 9.6 fl (6.2-12.0); Monocyte# 0.45 X10^3/uL; Monocyte% 11.8 % (0-10); NRBC Flagged by Analyzer 0 % (0-5); Neutrophil # 1.93 X10^3/uL (2.7-7.7); Neutrophil % 50.7 % (47-70); Platelet Count 198 K/mm3 (150-450); RBC Distribution Width CV 13.9 % (11.6-14.6); RBC Distribution Width SD 45.9 fl (35.1-43.9); Red Blood Count 3.82 M/mm3 (4.2-5.4); White Blood Count 3.8 K/mm3 (4.4-11.0)
[2020-09-30 07:37] LABS: Anion Gap 2 (5-15); BUN 17 mg/dL (7-18); BUN/Creat Ratio 25.6 RATIO (10-20); Calcium,Total 8.2 mg/dL (8.5-10.1); Chloride 109 mmol/L (98-107); Creatinine, Serum 0.66 mg/dL (0.55-1.02); EST Glomerular Filtration Rate 92 mL/min (>60); Est Glom Filt Rate - Afr Amer 112 mL/min (>60); Estimated Creatinine Clearance 44.41 ml/min; Glucose 82 mg/dL (74-106); Potassium 3.9 mmol/L (3.5-5.1); Sodium Level 141 mmol/L (136-145)
[2020-09-30] MEDS: Divalproex Sodium 250 MG Tablet 500 MG PO ×2 (08:36→21:01)
[2020-09-30] MEDS: Furosemide 40 MG Tablet 60 MG PO (08:36)
[2020-09-30] MEDS: Cholecalciferol (VIT D3) 25 MCG TABLET (1,000 UNITS) PO (08:36)
[2020-09-30] MEDS: Ascorbic Acid 500 MG Tablet PO ×2 (08:36→17:01)
[2020-09-30] MEDS: Gabapentin 400 MG Capsule PO ×3 (08:36→17:00)
[2020-09-30] MEDS: Tolterodine Tartrate 2 MG CAP.SA PO (08:36)
[2020-09-30] MEDS: DULoxetine Hcl 60 MG Capsule PO (08:36)
[2020-09-30] MEDS: APIXABAN 5 MG TABLET PO ×2 (08:36→21:01)
[2020-09-30] MEDS: Famotidine 20 MG Tablet PO ×2 (08:37→21:01)
[2020-09-30] MEDS: buPROPion (XL) 150 MG TABLET.XL PO (08:37)
[2020-09-30] MEDS: oxyCODONE 5 MG Tablet PO ×3 (08:43→23:04)
[2020-09-30] MEDS: Acetaminophen 325 MG Tablet 650 MG PO (08:44)
[2020-09-30] MEDS: Polyethylene Glycol 3350 17 GM PACKET PO (09:38)
[2020-09-30] MEDS: BENZOCAINE/MENTHOL 1 LOZENGE 2 LOZENGE MUCOUS MEM ×2 (10:21→21:03)
--- NOTE | 2020-09-30 10:33 | NURSING ---
visitor refusing to wear isolation precautions. attempted to educate visitor about precautions. visitor interupted this nurse and requesting to discuss with infectious disease. primary RN updated.
[2020-09-30 10:35] VITALS: BP 106/42; PULSE 83; RESP 18; TEMP 36.4; O2SAT 96
[2020-09-30] MEDS: Morphine 2 MG/ML Syringe IV (11:24)
[2020-09-30] MEDS: 0.9% Saline Lock 10 ML Syringe IV ×3 (11:25→21:00)
--- NOTE | 2020-09-30 11:58 | PN_ITS ---
Patient Problems: Active and Suspected Problems (Last Reviewed 05/25/20 @ 00:[address] Elpidio Faust MD) Cystitis (Acute) Subjective: Patient seen and examined. She has some mild suprapubic tenderness. Review of systems otherwise negative. She has remained hemodynamically stable. Vitals/I&O's: Vital Signs Temp Pulse Resp BP Pulse Ox 97.6 F L 68 16 119/97 H 95 09/30/20 04:35 09/30/20 04:35 09/30/20 04:35 09/30/20 04:35 09/30/20 04:35 Oxygen Delivery Method Room Air Weight: 296 lb 15.402 oz Body Mass Index (BMI) 49.4 Intake and Output for Last 24 Hours 09/28/20 09/29/20 09/30/20 23:59 23:59 23:59 Intake Total 1500 / 1500 1460 / 1860 1040 / 1040 Output Total 1800 / 2400 2500 / 2500 Balance 1500 / 1500 -340 / -540 -1460 / -1460 General: Alert, Oriented x3, Cooperative, - - obese HEENT: Atraumatic, PERRLA, EOMI, Normocephalic Oral: Dry Mucosa Neck: Supple, No JVD, Negative Carotid Bruits Lungs: Clear to auscultation, Normal air movement, No rhonchi, No wheeze, No rales Cardiovascular: Regular rate, Regular Rhythm, Normal S1, Normal S2, No murmurs Abdomen: Bowel Sounds Present, Soft, Non Tender, Non-Distended, No Hepato- splenomegaly Extremities: No clubbing, No cyanosis, No edema, Capillary Refill Less than 3 Seconds Skin: No rashes, No breakdown Musculoskeletal: No Tenderness to Palpation of Joints or Extremities Lymphatic: No Cervical, Supraclavicular, or Inguinal Adenopathy Neurological: Cranial nerves II-XII grossly intact, Neuro grossly intact, Motor Exam 5/5 strength throughout Psych/Mental Status: Normal Affect, Appropriate, Alert and oriented to time, place, person, mood and affect Microbiology Past 72 Hours 09/28/20 14:30 Urine Catheter - Catheter Urine Culture - Preliminary Klebsiella pneumoniae sp pneum 09/28/20 15:00 Blood Culture (Wb) - Left Hand Blood Culture - Preliminary No growth in 48 hours. 09/28/20 13:55 Blood Culture (Wb) - Anticubital Right Blood Culture - Preliminary No growth in 48 hours. 09/29/20 14:52 Mucosa - Nasopharyngeal SARS-CoV-2 Antigen (Rapid) - Final Laboratory Results 09/30/20 07:13: WBC 3.8 L, RBC 3.82 L, Hgb 10.4 L, Hct 34.4 L, MCV 90.1, MCH 27.2, MCHC 30.2 L, RDW Std Deviation 45.9 H, RDW Coeff of Chani 13.9, Plt Count 198, MPV 9.6, Immature Gran % (Auto) 0.300, Neut % (Auto) 50.7, Lymph % (Auto) 33.3, [place] % (Auto) 11.8 H, Eos % (Auto) 3.1, Baso % (Auto) 0.8, Absolute Neuts (auto) 1.9 L, Absolute Lymphs (auto) 1.27, Nucleated RBC % 0 09/30/20 07:13: Sodium 141, Potassium 3.9, Chloride 109 H, Carbon Dioxide 30.0, Anion Gap 2 L, BUN 17, Creatinine 0.66, Estim Creat Clear Calc 44.41, Est GFR (MDRD) Af Amer 112, Est GFR (MDRD) Non-Af 92, BUN/Creatinine Ratio 25.6 H, Glucose 82, Calcium 8.2 L Current Medications Acetaminophen (Acetaminophen 325 Mg Tablet) 650 mg PO Q6H PRN PRN PRN Reason: Pain Score 1-10/Temp > 100.7 F Last Admin: 09/30/20 08:44 Dose: 650 mg Documented by: Albuterol Sulfate (Albuterol 2.5 Mg/3 Ml Vial.Neb.) 2.5 mg INHALATION Q2H PRN PRN PRN Reason: Dyspnea, wheezing Apixaban (Apixaban 5 Mg Tablet) 5 mg PO BID [facility] Last Admin: 09/30/20 08:36 Dose: 5 mg Documented by: [facility]orbic Acid ([facility] 500 Mg Tablet) [facility] Last Admin: 09/30/20 08:36 Dose: 500 mg Documented by: Bupropion HCl (Bupropion (Xl) 150 Mg Tablet.Xl) 150 mg PO DAILY [facility] Last Admin: 09/30/20 08:37 Dose: 150 mg Documented by: Cholecalciferol (Cholecalciferol (Vit D3) 25 Mcg Tablet (1,000 Units)) 25 mcg PO DAILY [facility] Last Admin: 09/30/20 08:36 Dose: 25 mcg Documented by: Divalproex Sodium (Divalproex Sodium 250 Mg Tablet) 500 mg PO BID [facility] Last Admin: 09/30/20 08:36 Dose: 500 mg Documented by: Duloxetine HCl (Duloxetine Hcl 60 Mg Capsule) 60 mg PO DAILY [facility] Last Admin: 09/30/20 08:36 Dose: 60 mg Documented by: Famotidine (Famotidine 20 Mg Tablet) 20 mg PO BID [facility] Last Admin: 09/30/20 08:37 Dose: 20 mg Documented by: Furosemide (Furosemide 40 Mg Tablet) 60 mg PO DAILY [facility] Last Admin: 09/30/20 08:36 Dose: 60 mg Documented by: Gabapentin (Gabapentin 400 Mg Capsule) 400 mg PO TIDCM [facility] Last Admin: 09/30/20 08:36 Dose: 400 mg Documented by: Meropenem 1 gm/ Sodium (Chloride) 120 mls @ 33 mls/hr IV Q8 [facility] Stop: 10/05/20 19:01 Last Infusion: 09/30/20 09:52 Dose: Infused Documented by: Mirabegron (Mirabegron 50 Mg Tab.Er.24h) 50 mg PO QHS [facility] Last Admin: 09/29/20 22:21 Dose: 50 mg Documented by: Morphine Sulfate (Morphine 2 Mg/Ml Syringe) 2 mg IV Q3H PRN PRN PRN Reason: Pain Score 6-10 Last Admin: 09/30/20 11:24 Dose: 2 mg Documented by: Ondansetron HCl (Ondansetron 4 Mg/2 Ml Vial) 4 mg IV Q8H PRN PRN PRN Reason: NAUSEA/VOMITING Oxycodone HCl (Oxycodone 5 Mg Tablet) 5 mg PO Q4H PRN PRN PRN Reason: Pain Score 4-5 Last Admin: 09/30/20 08:43 Dose: 5 mg Documented by: Polyethylene Glycol (Polyethylene Glycol 3350 17 Gm Packet) 17 gm PO DAILY PRN PRN Reason: Constipation Last Admin: 09/30/20 09:38 Dose: 17 gm Documented by: Pravastatin Sodium (Pravastatin 40 Mg Tablet) 40 mg PO QHS [facility] Last Admin: 09/29/20 22:20 Dose: 40 mg Documented by: Primidone (Primidone 50 Mg Tablet) 100 mg PO QHS [facility] Last Admin: 09/29/20 22:20 Dose: 100 mg Documented by: Simethicone (Simethicone 80 Mg Tablet) 80 mg PO TIDCM [facility] Last Admin: 09/30/20 08:36 Dose: 80 mg Documented by: Sodium Chloride (0.9% Saline Lock 10 Ml Syringe) 10 - 40 ml IV UD PRN PRN Reason: SALINE FLUSH Last Admin: 09/30/20 11:25 Dose: 10 ml Documented by: Throat Lozenges (Benzocaine/Menthol 1 Lozenge) 2 lozenge MUCOUS MEM Q2H PRN PRN PRN Reason: SORE THROAT Last Admin: 09/30/20 10:21 Dose: 2 lozenge Documented by: Tolterodine Tartrate (Tolterodine Tartrate 2 Mg Cap.Sa) 2 mg PO DAILY [facility] Last Admin: 09/30/20 08:36 Dose: 2 mg Documented by: Medical Necessity - Tobacco Use Smoking Status: Never smoker Assessment/Plan All Active Problems (Last Reviewed 05/25/20 @ 00:[address] Elpidio Faust MD) Cystitis (Acute) Rectus sheath hematoma (Resolved) Unilateral primary osteoarthritis, right knee (Resolved) Abdominal pain (Resolved) #Acute complicated recurrent UTI * has a history of recurrent UTIs. * on IV meropenem; recent cultures grew VRE and Klebsiella * ID consulted- to continue meropenem * blood cultures negative after 48 hours. Urine cultures growing Klebsiella * #history of DVT s/p IVC filter * has a filter in place, but says she was still put on eliquis because she kept on getting DVTs in her lower extremities. * on eliquis. * * #History of type 2 diabetes mellitus * diet controlled. * on depakote and gabapentin for neuropathy * #Anemia: stable #Hyperlipidemia: on statin #Acute obesity: Status post gastric bypass. Stable. #GERD: On famotidine #Hypertension: well controlled. Currently on lasix DVT prophylaxis: on eliquis Inpatient E&M: 25703 [facility] Hosp L2
[2020-09-30 15:18] VITALS: BP 93/47; PULSE 82; RESP 18; TEMP 36.4; O2SAT 95
[2020-09-30] MEDS: Senna Tablet 1 TABLET PO (17:00)
[2020-09-30 21:00] VITALS: BP 128/61; PULSE 79; RESP 18; TEMP 37.1; O2SAT 95
[2020-09-30] MEDS: Mirabegron 50 MG TAB.ER.24H PO (21:01)
[2020-09-30] MEDS: Primidone 50 MG Tablet 100 MG PO (21:01)
[2020-09-30] MEDS: Pravastatin 40 MG Tablet PO (21:01)
[2020-10-01 02:50] VITALS: BP 99/50; PULSE 72; RESP 16; TEMP 36.2; O2SAT 98
[2020-10-01] MEDS: 0.9% Saline Lock 10 ML Syringe IV ×2 (06:02→13:43)
[2020-10-01] MEDS: Ondansetron 4 MG/2 ML Vial IV (06:02)
[2020-10-01 06:44] LABS: Absolute Lymphocyte Count 1.62 X10^3/uL (0.83-4.51); Absolute Neutrophil Count 1.9 X10^3/uL (2.0-7.7); Basophil# 0.04 X10^3/uL; Basophil% 0.9 % (0-1); Eosinophil# 0.14 X10^3/uL; Eosinophils% 3.3 % (0-5); Hematocrit 32.5 % (37-47); Hemoglobin 9.9 g/dL (12.0-15.0); Lymphocyte # 1.62 X10^3/ul (4.0); Lymphocyte % 38.3 % (19-41); Mean Corp Hgb Conc 30.5 g/dL (32-36); Mean Corpuscular Hgb 27.8 pg (27.0-32.0); Mean Corpuscular Volume 91.3 fL (81-99); Mean Platelet Vol. 9.5 fl (6.2-12.0); Monocyte# 0.56 X10^3/uL; Monocyte% 13.2 % (0-10); NRBC Flagged by Analyzer 0 % (0-5); Neutrophil # 1.85 X10^3/uL (2.7-7.7); Neutrophil % 43.8 % (47-70); Platelet Count 208 K/mm3 (150-450); RBC Distribution Width CV 13.9 % (11.6-14.6); RBC Distribution Width SD 46.7 fl (35.1-43.9); Red Blood Count 3.56 M/mm3 (4.2-5.4); White Blood Count 4.2 K/mm3 (4.4-11.0)
[2020-10-01 07:07] LABS: Anion Gap 4 (5-15); BUN 21 mg/dL (7-18); BUN/Creat Ratio 28.2 RATIO (10-20); Calcium,Total 8.2 mg/dL (8.5-10.1); Chloride 105 mmol/L (98-107); Creatinine, Serum 0.74 mg/dL (0.55-1.02); EST Glomerular Filtration Rate 81 mL/min (>60); Est Glom Filt Rate - Afr Amer 98 mL/min (>60); Estimated Creatinine Clearance 44.41 ml/min; Glucose 82 mg/dL (74-106); Potassium 4.3 mmol/L (3.5-5.1); Sodium Level 138 mmol/L (136-145)
[2020-10-01 09:00] VITALS: BP 102/76; PULSE 75; RESP 18; TEMP 36.9; O2SAT 92
[2020-10-01] MEDS: Divalproex Sodium 250 MG Tablet 500 MG PO ×2 (09:42→22:57)
[2020-10-01] MEDS: Ascorbic Acid 500 MG Tablet PO ×2 (09:42→17:21)
[2020-10-01] MEDS: Gabapentin 400 MG Capsule PO ×3 (09:42→17:21)
[2020-10-01] MEDS: DULoxetine Hcl 60 MG Capsule PO (09:42)
[2020-10-01] MEDS: APIXABAN 5 MG TABLET PO ×2 (09:43→22:58)
[2020-10-01] MEDS: Furosemide 40 MG Tablet 60 MG PO (09:43)
[2020-10-01] MEDS: Tolterodine Tartrate 2 MG CAP.SA PO (09:43)
[2020-10-01] MEDS: Cholecalciferol (VIT D3) 25 MCG TABLET (1,000 UNITS) PO (09:44)
[2020-10-01] MEDS: buPROPion (XL) 150 MG TABLET.XL PO (09:44)
[2020-10-01] MEDS: Famotidine 20 MG Tablet PO ×2 (09:44→22:57)
[2020-10-01] MEDS: oxyCODONE 5 MG Tablet PO ×3 (10:07→22:59)
[2020-10-01] MEDS: Senna Tablet 1 TABLET PO (10:07)
[2020-10-01] MEDS: Polyethylene Glycol 3350 17 GM PACKET PO (10:07)
--- NOTE | 2020-10-01 10:36 | PN_ITS ---
Patient Problems: Active and Suspected Problems (Last Reviewed 05/25/20 @ 00:[address] Elpidio Faust MD) Cystitis (Acute) Subjective: Patient has no complaints today. Abdominal pain is improved. Review of systems otherwise negative. She has remained hemodynamically stable. Vitals/I&O's: Vital Signs Temp Pulse Resp BP Pulse Ox 98.4 F 75 18 102/76 92 10/01/20 09:00 10/01/20 09:00 10/01/20 09:00 10/01/20 09:00 10/01/20 09:00 Oxygen Delivery Method Room Air Weight: 296 lb 15.402 oz Body Mass Index (BMI) 49.4 Intake and Output for Last 24 Hours 09/29/20 09/30/20 10/01/20 23:59 23:59 23:59 Intake Total 1460 / 1860 2160 / 2160 240 / 240 Output Total 1800 / 2400 5100 / 5100 300 / 300 Balance -340 / -540 -2940 / -2940 -60 / -60 General: Alert, Oriented x3, Cooperative, - - obese HEENT: Atraumatic, PERRLA, EOMI, Normocephalic Oral: Dry Mucosa Neck: Supple, No JVD, Negative Carotid Bruits Lungs: Clear to auscultation, Normal air movement, No rhonchi, No wheeze, No rales Cardiovascular: Regular rate, Regular Rhythm, Normal S1, Normal S2, No murmurs Abdomen: Bowel Sounds Present, Soft, Non Tender, Non-Distended, No Hepato- splenomegaly Extremities: No clubbing, No cyanosis, No edema, Capillary Refill Less than 3 Seconds Skin: No rashes, No breakdown Musculoskeletal: No Tenderness to Palpation of Joints or Extremities Lymphatic: No Cervical, Supraclavicular, or Inguinal Adenopathy Neurological: Cranial nerves II-XII grossly intact, Neuro grossly intact, Motor Exam 5/5 strength throughout Psych/Mental Status: Normal Affect, Appropriate, Alert and oriented to time, place, person, mood and affect Microbiology Past 72 Hours 09/28/20 14:30 Urine Catheter - Catheter Urine Culture - Final Klebsiella pneumoniae 09/28/20 15:00 Blood Culture (Wb) - Left Hand Blood Culture - Preliminary No growth in 48 hours. 09/28/20 13:55 Blood Culture (Wb) - Anticubital Right Blood Culture - Preliminary No growth in 48 hours. 09/29/20 14:52 Mucosa - Nasopharyngeal SARS-CoV-2 Antigen (Rapid) - Final Laboratory Results 10/01/20 06:34: WBC 4.2 L, RBC 3.56 L, Hgb 9.9 L, Hct 32.5 L, MCV 91.3, MCH 27.8, MCHC 30.5 L, RDW Std Deviation 46.7 H, RDW Coeff of Chani 13.9, Plt Count 208, MPV 9.5, Immature Gran % (Auto) 0.500, Neut % (Auto) 43.8 L, Lymph % (Auto) 38.3, [place] % (Auto) 13.2 H, Eos % (Auto) 3.3, Baso % (Auto) 0.9, Absolute Neuts (auto) 1.9 L, Absolute Lymphs (auto) 1.62, Nucleated RBC % 0 10/01/20 06:34: Sodium 138, Potassium 4.3, Chloride 105, Carbon Dioxide 29.0, Anion Gap 4 L, BUN 21 H, Creatinine 0.74, Estim Creat Clear Calc 44.41, Est GFR (MDRD) Af Amer 98, Est GFR (MDRD) Non-Af 81, BUN/Creatinine Ratio 28.2 H, Glucose 82, Calcium 8.2 L Current Medications Acetaminophen (Acetaminophen 325 Mg Tablet) 650 mg PO Q6H PRN PRN PRN Reason: Pain Score 1-10/Temp > 100.7 F Last Admin: 09/30/20 08:44 Dose: 650 mg Documented by: Albuterol Sulfate (Albuterol 2.5 Mg/3 Ml Vial.Neb.) 2.5 mg INHALATION Q2H PRN PRN PRN Reason: Dyspnea, wheezing Apixaban (Apixaban 5 Mg Tablet) 5 mg PO BID [facility] Last Admin: 10/01/20 09:43 Dose: 5 mg Documented by: Ascorbic Acid (Ascorbic Acid 500 Mg Tablet) [facility] Last Admin: 10/01/20 09:42 Dose: 500 mg Documented by: Bupropion HCl (Bupropion (Xl) 150 Mg Tablet.Xl) 150 mg PO DAILY [facility] Last Admin: 10/01/20 09:44 Dose: 150 mg Documented by: Cholecalciferol (Cholecalciferol (Vit D3) 25 Mcg Tablet (1,000 Units)) 25 mcg PO DAILY [facility] Last Admin: 10/01/20 09:44 Dose: 25 mcg Documented by: Divalproex Sodium (Divalproex Sodium 250 Mg Tablet) 500 mg PO BID [facility] Last Admin: 10/01/20 09:42 Dose: 500 mg Documented by: Duloxetine HCl (Duloxetine Hcl 60 Mg Capsule) 60 mg PO DAILY [facility] Last Admin: 10/01/20 09:42 Dose: 60 mg Documented by: Famotidine (Famotidine 20 Mg Tablet) 20 mg PO BID [facility] Last Admin: 10/01/20 09:44 Dose: 20 mg Documented by: Furosemide (Furosemide 40 Mg Tablet) 60 mg PO DAILY [facility] Last Admin: 10/01/20 09:43 Dose: 60 mg Documented by: Gabapentin (Gabapentin 400 Mg Capsule) 400 mg PO TIDCM [facility] Last Admin: 10/01/20 09:42 Dose: 400 mg Documented by: Meropenem 1 gm/ Sodium (Chloride) 120 mls @ 33 mls/hr IV Q8 [facility] Stop: 10/05/20 19:01 Last Infusion: 10/01/20 09:02 Dose: Infused Documented by: Mirabegron (Mirabegron 50 Mg Tab.Er.24h) 50 mg PO QHS [facility] Last Admin: 09/30/20 21:01 Dose: 50 mg Documented by: Morphine Sulfate (Morphine 2 Mg/Ml Syringe) 2 mg IV Q3H PRN PRN PRN Reason: Pain Score 6-10 Last Admin: 09/30/20 11:24 Dose: 2 mg Documented by: Ondansetron HCl (Ondansetron 4 Mg/2 Ml Vial) 4 mg IV Q8H PRN PRN PRN Reason: NAUSEA/VOMITING Last Admin: 10/01/20 06:02 Dose: 4 mg Documented by: Oxycodone HCl (Oxycodone 5 Mg Tablet) 5 mg PO Q4H PRN PRN PRN Reason: Pain Score 4-5 Last Admin: 10/01/20 10:07 Dose: 5 mg Documented by: Polyethylene Glycol (Polyethylene Glycol 3350 17 Gm Packet) 17 gm PO DAILY PRN PRN Reason: Constipation Last Admin: 10/01/20 10:07 Dose: 17 gm Documented by: Pravastatin Sodium (Pravastatin 40 Mg Tablet) 40 mg PO QHS [facility] Last Admin: 09/30/20 21:01 Dose: 40 mg Documented by: Primidone (Primidone 50 Mg Tablet) 100 mg PO QHS [facility] Last Admin: 09/30/20 21:01 Dose: 100 mg Documented by: Senna (Senna Tablet) 1 tablet PO DAILY PRN PRN PRN Reason: CONSTIPATION Last Admin: 10/01/20 10:07 Dose: 1 tablet Documented by: Simethicone (Simethicone 80 Mg Tablet) 80 mg PO TIDCM [facility] Last Admin: 10/01/20 09:42 Dose: 80 mg Documented by: Sodium Chloride (0.9% Saline Lock 10 Ml Syringe) 10 - 40 ml IV UD PRN PRN Reason: SALINE FLUSH Last Admin: 10/01/20 06:02 Dose: 20 ml Documented by: Throat Lozenges (Benzocaine/Menthol 1 Lozenge) 2 lozenge MUCOUS MEM Q2H PRN PRN PRN Reason: SORE THROAT Last Admin: 09/30/20 21:03 Dose: 2 lozenge Documented by: Tolterodine Tartrate (Tolterodine Tartrate 2 Mg Cap.Sa) 2 mg PO DAILY [facility] Last Admin: 10/01/20 09:43 Dose: 2 mg Documented by: STROKE Vital Signs/Narrative: Vital Signs Temp Pulse Resp BP Pulse Ox 10/01/20 09:00 98.4 F 75 18 102/76 92 Medical Necessity - Tobacco Use Smoking Status: Never smoker Assessment/Plan All Active Problems (Last Reviewed 05/25/20 @ 00:[address] Elpidio Faust MD) Cystitis (Acute) Rectus sheath hematoma (Resolved) Unilateral primary osteoarthritis, right knee (Resolved) Abdominal pain (Resolved) #Acute complicated recurrent UTI * has a history of recurrent UTIs. * on IV meropenem; recent cultures grew VRE and Klebsiella * ID on board- to continue meropenem * blood cultures negative after 48 hours. Urine cultures growing Klebsiella * #history of DVT s/p IVC filter * has a filter in place, but says she was still put on eliquis because she kept on getting DVTs in her lower extremities. * on eliquis. * * #History of type 2 diabetes mellitus * diet controlled. * on depakote and gabapentin for neuropathy * #Anemia: stable #Hyperlipidemia: on statin #Acute obesity: Status post gastric bypass. Stable. #GERD: On famotidine #Hypertension: well controlled. Currently on lasix DVT prophylaxis: on eliquis Disposition: for likely DC tomorrow. Inpatient E&M: 15193 Subs Hosp L2
[2020-10-01] MEDS: Magnesium Hydroxide 30 ML UDC PO (11:32)
--- NOTE | 2020-10-01 12:09 | NURSING ---
PT DAUGHTER HERE TO VISIT PT, AGAIN TODAY SHE IS REFUSING TO WEAR PPE
[2020-10-01] MEDS: Morphine 2 MG/ML Syringe IV (13:42)
[2020-10-01 15:00] VITALS: BP 92/45; PULSE 84; RESP 18; TEMP 36.3; O2SAT 94
[2020-10-01] MEDS: BENZOCAINE/MENTHOL 1 LOZENGE 2 LOZENGE MUCOUS MEM (15:32)
[2020-10-01] MEDS: Acetaminophen 325 MG Tablet 650 MG PO (16:37)
[2020-10-01 22:50] VITALS: BP 104/51; PULSE 82; RESP 18; TEMP 36.9; O2SAT 96
[2020-10-01] MEDS: Mirabegron 50 MG TAB.ER.24H PO (22:57)
[2020-10-01] MEDS: Pravastatin 40 MG Tablet PO (22:58)
[2020-10-01] MEDS: Primidone 50 MG Tablet 100 MG PO (22:58)
[2020-10-02 04:30] VITALS: BP 117/58; PULSE 66; RESP 18; TEMP 36.3; O2SAT 93
[2020-10-02 06:19] LABS: Absolute Lymphocyte Count 1.66 X10^3/uL (0.83-4.51); Absolute Neutrophil Count 1.7 X10^3/uL (2.0-7.7); Basophil# 0.05 X10^3/uL; Basophil% 1.2 % (0-1); Eosinophil# 0.14 X10^3/uL; Eosinophils% 3.4 % (0-5); Hematocrit 34.6 % (37-47); Hemoglobin 10.4 g/dL (12.0-15.0); Lymphocyte # 1.66 X10^3/ul (4.0); Lymphocyte % 40.9 % (19-41); Mean Corp Hgb Conc 30.1 g/dL (32-36); Mean Corpuscular Hgb 27.7 pg (27.0-32.0); Mean Corpuscular Volume 92.3 fL (81-99); Mean Platelet Vol. 9.7 fl (6.2-12.0); Monocyte# 0.52 X10^3/uL; Monocyte% 12.8 % (0-10); NRBC Flagged by Analyzer 0 % (0-5); Neutrophil # 1.66 X10^3/uL (2.7-7.7); Platelet Count 209 K/mm3 (150-450); RBC Distribution Width CV 13.9 % (11.6-14.6); RBC Distribution Width SD 47.2 fl (35.1-43.9); Red Blood Count 3.75 M/mm3 (4.2-5.4); White Blood Count 4.1 K/mm3 (4.4-11.0)
[2020-10-02 06:44] LABS: Anion Gap 2 (5-15); BUN 22 mg/dL (7-18); BUN/Creat Ratio 31.9 RATIO (10-20); Calcium,Total 8.4 mg/dL (8.5-10.1); Chloride 104 mmol/L (98-107); Creatinine, Serum 0.69 mg/dL (0.55-1.02); EST Glomerular Filtration Rate 88 mL/min (>60); Est Glom Filt Rate - Afr Amer 107 mL/min (>60); Estimated Creatinine Clearance 44.41 ml/min; Glucose 77 mg/dL (74-106); Potassium 4.5 mmol/L (3.5-5.1); Sodium Level 139 mmol/L (136-145)
[2020-10-02] MEDS: Ascorbic Acid 500 MG Tablet PO (08:56)
[2020-10-02] MEDS: buPROPion (XL) 150 MG TABLET.XL PO (08:56)
[2020-10-02] MEDS: Famotidine 20 MG Tablet PO (08:56)
[2020-10-02] MEDS: Cholecalciferol (VIT D3) 25 MCG TABLET (1,000 UNITS) PO (08:56)
[2020-10-02] MEDS: DULoxetine Hcl 60 MG Capsule PO (08:56)
[2020-10-02] MEDS: Furosemide 40 MG Tablet 60 MG PO (08:56)
[2020-10-02] MEDS: Gabapentin 400 MG Capsule PO ×2 (08:57→12:13)
[2020-10-02] MEDS: APIXABAN 5 MG TABLET PO (08:57)
[2020-10-02] MEDS: Divalproex Sodium 250 MG Tablet 500 MG PO (08:57)
[2020-10-02] MEDS: Magnesium Hydroxide 30 ML UDC PO (09:11)
[2020-10-02] MEDS: Tolterodine Tartrate 2 MG CAP.SA PO (09:11)
[2020-10-02 10:30] VITALS: BP 129/91; PULSE 66; RESP 18; TEMP 36.4; O2SAT 96
[2020-10-02] MEDS: Polyethylene Glycol 3350 17 GM PACKET PO (12:13)
[2020-10-02] MEDS: Ondansetron 4 MG/2 ML Vial IV (12:15)
--- NOTE | 2020-10-02 12:33 | CASEMGMT ---
Pt screened with [facility] Palliative Care Screening Tool. Pt did not meet criteria.
--- NOTE | 2020-10-02 12:38 | CASEMGMT ---
Addendum entered by Maria E Martinez 10/02/20 14:37: Pt doesn't need IM or IV antibiotics. RUKHSANA placed a call to Wallace at [facility] and left him a message updating him that pt doesn't need IM or IV and pt will be discharged back to [facility] today. SW in to speak with pt. SW updated pt on discharge to [facility]. Pt states she can transport via wheelchair van. SW accessed trip assist and arranged transportation via wheelchair van for 5:00pm. RUKHSANA updated RN and updated pt. Pt states her daughter is aware pt will be discharged back to [facility] today. RUKHSANA placed a call to pt's CM Brook Schwarz at [facility] and updated her. RUKHSANA faxed discharge paperwork to Brook Schwarz. Plan: Return to [facility] with Physician's transporting pt via wheelchair van at 5:00pm Maria E ZAMORA, BLOCK PLACER Original Note: Social Work Note Pt may be discharged on IM injections. RUKHSANA placed a call to Wallace at [facility]. Wallace confirms if pt is discharged on IM, pt is able to return to [facility]. If pt needs IV antibiotics, pt will need SNF. RUKHSANA waiting on ID. Maria E Martinez [employer]CHOOL [employer] TECHNICIAN, BLOCK PLACER
--- NOTE | 2020-10-02 13:07 | PCM.PN.ID ---
Patient Problems: Active and Suspected Problems (Last Reviewed 05/25/20 @ 00:[address] Elpidio Faust MD) Cystitis (Acute) Subjective: Feeling better, no fever, no abd pain - Physical Exam Vitals/I&O's: Vital Signs Temp Pulse Resp BP Pulse Ox 97.5 F L 66 18 129/91 H 96 10/02/20 10:30 10/02/20 10:30 10/02/20 10:30 10/02/20 10:30 10/02/20 10:30 Oxygen Delivery Method Room Air Weight: 134.7 kg Body Mass Index (BMI) 49.4 Intake and Output for Last 24 Hours 09/30/20 10/01/20 10/02/20 23:59 23:59 23:59 Intake Total 2160 / 2160 360 / 360 240 / 240 Output Total 5100 / 5100 700 / 900 200 / 200 Balance -2940 / -2940 -340 / -540 40 / 40 General: Alert, Cooperative, No apparent distress Lungs: Clear to auscultation, Normal air movement Cardiovascular: Regular rate, Regular Rhythm Abdomen: Soft, Non Tender, Non-Distended Skin: No rashes Microbiology Past 72 Hours 09/28/20 14:30 Urine Catheter - Catheter Urine Culture - Final Klebsiella pneumoniae 09/28/20 15:00 Blood Culture (Wb) - Left Hand Blood Culture - Preliminary No growth in 48 hours. 09/28/20 13:55 Blood Culture (Wb) - Anticubital Right Blood Culture - Preliminary No growth in 48 hours. 09/29/20 14:52 Mucosa - Nasopharyngeal SARS-CoV-2 Antigen (Rapid) - Final Laboratory Results 10/02/20 06:01: WBC 4.1 L, RBC 3.75 L, Hgb 10.4 L, Hct 34.6 L, MCV 92.3, MCH 27.7, MCHC 30.1 L, RDW Std Deviation 47.2 H, RDW Coeff of Chani 13.9, Plt Count 209, MPV 9.7, Immature Gran % (Auto) 0.700, Neut % (Auto) 41.0 L, Lymph % (Auto) 40.9, [place] % (Auto) 12.8 H, Eos % (Auto) 3.4, Baso % (Auto) 1.2 H, Absolute Neuts (auto) 1.7 L, Absolute Lymphs (auto) 1.66, Nucleated RBC % 0 10/02/20 06:01: Sodium 139, Potassium 4.5, Chloride 104, Carbon Dioxide 33.0 H, Anion Gap 2 L, BUN 22 H, Creatinine 0.69, Estim Creat Clear Calc 44.41, Est GFR (MDRD) Af Amer 107, Est GFR (MDRD) Non-Af 88, BUN/Creatinine Ratio 31.9 H, Glucose 77, Calcium 8.4 L Current Medications Acetaminophen (Acetaminophen 325 Mg Tablet) 650 mg PO Q6H PRN PRN PRN Reason: Pain Score 1-10/Temp > 100.7 F Last Admin: 10/01/20 16:37 Dose: 650 mg Documented by: Albuterol Sulfate (Albuterol 2.5 Mg/3 Ml Vial.Neb.) 2.5 mg INHALATION Q2H PRN PRN PRN Reason: Dyspnea, wheezing Apixaban (Apixaban 5 Mg Tablet) 5 mg PO BID [facility] Last Admin: 10/02/20 08:57 Dose: 5 mg Documented by: [facility]orbic [facility] ([facility] 500 Mg [facility]t) [facility] Last Admin: 10/02/20 08:56 Dose: 500 mg Documented by: Bupropion HCl (Bupropion (Xl) 150 Mg Tablet.Xl) 150 mg PO DAILY [facility] Last Admin: 10/02/20 08:56 Dose: 150 mg Documented by: Cholecalciferol (Cholecalciferol (Vit D3) 25 Mcg Tablet (1,000 Units)) 25 mcg PO DAILY [facility] Last Admin: 10/02/20 08:56 Dose: 25 mcg Documented by: Divalproex Sodium (Divalproex Sodium 250 Mg Tablet) 500 mg PO BID [facility] Last Admin: 10/02/20 08:57 Dose: 500 mg Documented by: Duloxetine HCl (Duloxetine Hcl 60 Mg Capsule) 60 mg PO DAILY [facility] Last Admin: 10/02/20 08:56 Dose: 60 mg Documented by: Famotidine (Famotidine 20 Mg Tablet) 20 mg PO BID [facility] Last Admin: 10/02/20 08:56 Dose: 20 mg Documented by: Furosemide (Furosemide 40 Mg Tablet) 60 mg PO DAILY [facility] Last Admin: 10/02/20 08:56 Dose: 60 mg Documented by: Gabapentin (Gabapentin 400 Mg Capsule) 400 mg PO TIDCM [facility] Last Admin: 10/02/20 12:13 Dose: 400 mg Documented by: Ertapenem 1 gm/ Sodium (Chloride) 60 mls @ 100 mls/hr IV X1 ONE Stop: 10/02/20 13:41 Magnesium Hydroxide (Magnesium Hydroxide 30 Ml Udc) 30 ml PO DAILY PRN PRN Reason: CONSTIPATION Last Admin: 10/02/20 09:11 Dose: 30 ml Documented by: Mirabegron (Mirabegron 50 Mg Tab.Er.24h) 50 mg PO QSSM [facility] Last Admin: 10/01/20 22:57 Dose: 50 mg Documented by: Morphine Sulfate (Morphine 2 Mg/Ml Syringe) 2 mg IV Q3H PRN PRN PRN Reason: Pain Score 6-10 Last Admin: 10/01/20 13:42 Dose: 2 mg Documented by: Ondansetron HCl (Ondansetron 4 Mg/2 Ml Vial) 4 mg IV Q8H PRN PRN PRN Reason: NAUSEA/VOMITING Last Admin: 10/02/20 12:15 Dose: 4 mg Documented by: Oxycodone HCl (Oxycodone 5 Mg Tablet) 5 mg PO Q4H PRN PRN PRN Reason: Pain Score 4-5 Last Admin: 10/01/20 22:59 Dose: 5 mg Documented by: Polyethylene Glycol (Polyethylene Glycol 3350 17 Gm Packet) 17 gm PO DAILY PRN PRN Reason: Constipation Last Admin: 10/02/20 12:13 Dose: 17 gm Documented by: Pravastatin Sodium (Pravastatin 40 Mg Tablet) 40 mg PO QSSM [facility] Last Admin: 10/01/20 22:58 Dose: 40 mg Documented by: Primidone (Primidone 50 Mg Tablet) 100 mg PO QSSM [facility] Last Admin: 10/01/20 22:58 Dose: 100 mg Documented by: Senna (Senna Tablet) 1 tablet PO DAILY PRN PRN PRN Reason: CONSTIPATION Last Admin: 10/01/20 10:07 Dose: 1 tablet Documented by: Simethicone (Simethicone 80 Mg Tablet) 80 mg PO TIDCM [facility] Last Admin: 10/02/20 12:13 Dose: 80 mg Documented by: Sodium Chloride (0.9% Saline Lock 10 Ml Syringe) 10 - 40 ml IV UD PRN PRN Reason: SALINE FLUSH Last Admin: 10/01/20 13:43 Dose: 10 ml Documented by: Throat Lozenges (Benzocaine/Menthol 1 Lozenge) 2 lozenge MUCOUS MEM Q2H PRN PRN PRN Reason: SORE THROAT Last Admin: 10/01/20 15:32 Dose: 2 lozenge Documented by: Tolterodine Tartrate (Tolterodine Tartrate 2 Mg Cap.Sa) 2 mg PO DAILY [facility] Last Admin: 10/02/20 09:11 Dose: 2 mg Documented by: Medical Necessity - Tobacco Use Smoking Status: Never smoker Route of nutrition/ use of supplements: [] Nutritional Intake: [] IV Site: [] Adler Catheter: [] - Assessment/Plan Antibiotics: [] Assessment/Plan: [] Active and Suspected Problems (Last Reviewed 05/25/20 @ 00:[address] Elpidio Faust MD) Cystitis (Acute) recurrent MDR uti - esbl klebs in ucx now. On meropenem, sx resolved. Day 5 of abx today. Will order dose of ertapenem prior to d/c today. Will order Hiprex for custodial prevention at her [facility]. Will follow as needed, d/w case aide
--- NOTE | 2020-10-02 13:47 | DCINST_ITS ---
- Discharge Diagnoses Current Active Problems: Current Active and Chronic Problems (Last Reviewed 05/25/20 @ 00:[address] Elpidio Faust MD) Cystitis (Acute) HTN (hypertension) (Chronic) HLD (hyperlipidemia) (Chronic) GERD (gastroesophageal reflux disease) (Chronic) Anxiety and depression (Chronic) Chronic neuropathic pain (Chronic) Chronic pain following surgery or procedure (Chronic) Morbid obesity with BMI of 45.0-49.9, adult (Chronic) ROXIE (obstructive sleep apnea) (Chronic) says she got off CPAP_ when she had gastric bypass surgery ......wieghed 248 after bypass and was up to 312 recently but, has been losing weight, unintentional. 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) Segmental and somatic dysfunction of cervical region (Chronic) Segmental and somatic dysfunction of pelvic region (Chronic) Facet arthropathy, lumbar (Chronic) Segmental and somatic dysfunction of thoracic region (Chronic) Segmental and somatic dysfunction of lumbar region (Chronic) History of DVT (deep vein thrombosis) (Chronic) recurrent History of gastric bypass (Chronic) Shortness of breath on exertion (Chronic) You will use the following diet at home:: Calorie/Carbohydrate Controlled (specify 1200, 1400, etc), Cardiac Your food should be the consistency of: Regular Your liquids should be the consistency of: Regular/Thin Discharge Activity: Return to Normal Activity, No Restrictions Allergies/Adverse Reactions: Allergies ampicillin [From Unasyn] Allergy (Severe, Verified 09/28/20 13:32) Other Blisters on tongue /throat difficulty breathing sore tongue/throat warfarin sodium [From Coumadin] Allergy (Severe, Verified 09/28/20 13:32) Low red blood cells Medications to take at Discharge Cholecalciferol (VIT D3) [Vitamin D3] 1,000 unit PO DAILY 12/29/15 Duloxetine Hcl [Cymbalta] 60 mg PO DAILY 12/29/15 Pravastatin [Pravachol] 40 mg PO QHS 08/05/18 Fluticasone 0.05% [Flonase Nasal [place]] 2 spray NASAL DAILY 03/18/19 Furosemide [Lasix] 60 mg PO DAILY 03/18/19 Primidone 100 mg PO DAILY 03/18/19 SimETHICONE [Mylicon] 80 mg PO TIDCM 03/18/19 Mirabegron [Myrbetriq] 50 mg PO QHS 01/24/20 Famotidine [Pepcid] 20 mg PO DAILY 03/23/20 Gabapentin [Neurontin] 400 mg PO TID 07/09/20 Divalproex Sodium [Depakote] 500 mg PO BID #0 07/11/20 Bupropion HCl [Bupropion Xl] 150 mg PO DAILY 08/09/20 D-Mannose 1,000 mg PO BID 08/09/20 Mag Hydrox/Aluminum Hyd/Simeth [Antacid Suspension] 30 ml PO Q4H PRN PRN 08/20/20 Oxybutynin Chloride [Oxybutynin Chloride ER] 10 mg PO DAILY 08/20/20 Polyethylene Glycol 3350 [Miralax] 17 gm PO DAILY PRN 08/20/20 Albuterol Aerosols [Ventolin Aerosols] 2.5 mg INHALATION Q2H PRN PRN vial.neb. 08/22/20 Acetaminophen [Tylenol] 500 - 1,000 mg PO Q6H PRN PRN 09/28/20 Ascorbic Acid [Vitamin C] 500 mg PO DAILY 09/28/20 Guaifenesin Dm [Robitussin Dm] 10 ml PO Q4H PRN 09/28/20 Magnesium Hydroxide [Milk Of Magnesia] 30 ml PO DAILY PRN PRN 09/28/20 Nystatin Powder [Mycostatin Powder] 1 applic TOPICAL 4X/DAY PRN PRN 09/28/20 Oxycodone HCl 5 mg PO Q4H PRN 09/28/20 Apixaban [Eliquis] 5 mg PO BID #60 tablet 10/02/20 Methenamine Hippurate [Hiprex] 1 gm PO BID #180 tablet 10/02/20 The following prescriptions were given: Apixaban [Eliquis] 5 mg PO BID #60 tablet Transmission Status: Pending to [facility] Methenamine Hippurate [Hiprex] 1 gm PO BID #180 tablet Prescription Printed Primary Care Physician: Gonzales Pinto MD [Primary Care Provider] - Please follow up with your Primary Care Physician in: 1-2 weeks Test Results: Test results from this visit will be discussed in further detail at your follow- up appointment, if applicable. Please Follow Up With: Alejandra Villavicencio MD - Incontinence When: as scheduled Please Follow Up With: Freddy Varner MD - Recurrent UTI When: 4-6 weeks
--- NOTE | 2020-10-02 13:50 | PCM.DC.SUM ---
Discharge Date and Diagnosis - Problem List Patient Problems: Active and Suspected Problems (Last Reviewed 05/25/20 @ 00:[address] Elpidio Faust MD) Cystitis (Acute) Date of Admission: 09/28/20 Date of Discharge: 10/02/20 - Primary Discharge Diagnosis Acute Problems: Active Problems (Last Reviewed 05/25/20 @ 00:[address] Elpidio Faust MD) Cystitis (Acute) - Secondary Discharge Diagnosis Chronic Problems: Chronic Problems (Last Reviewed 05/25/20 @ 00:[address] Elpidio Faust MD) HTN (hypertension) (Chronic) HLD (hyperlipidemia) (Chronic) GERD (gastroesophageal reflux disease) (Chronic) Anxiety and depression (Chronic) Chronic neuropathic pain (Chronic) Chronic pain following surgery or procedure (Chronic) Morbid obesity with BMI of 45.0-49.9, adult (Chronic) ROXIE (obstructive sleep apnea) (Chronic) says she got off CPAP_ when she had gastric bypass surgery ......wieghed 248 after bypass and was up to 312 recently but, has been losing weight, unintentional. 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 Anderson is a 75 year old WF with a past medical history of recurrent urinary tract infections, hypertension, hyperlipidemia, GERD, anxiety, depression, chronic neuropathic pain, recent rectus sheath hematoma, OA, morbid obesity with history of gastric bypass, ROXIE, recurrent DVTs, and DM-2, who presented to [facility] on 09/28/2020 with complaints of urinary symptoms with suprapubic and flank pain. Upon presentation she had had symptoms for 2 days but does get admitted frequently for urinary tract infections. Her most recent admission at the end of July was for a rectus sheath hematoma for which Eliquis was held at that time. Per discussion with PCP and Dr. Quintero her Eliquis was reinitiated and she is to continue this as an outpatient. Urine culture here grew out ESBL Klebsiella pneumonia for which she was treated with meropenem. She was seen by infectious disease and completed the treatment course after 5 days of antibiotics. She was given 1 last dose of ertapenem prior to discharge and then Hiprex was ordered for long-term prevention after discharge to her assisted living facility. Blood cultures were done and were negative. She had a CT of her abdomen pelvis done when she was admitted for her rectus sheath hematoma and this did show a small renal calculus that was 7 mm. She was able to be discharged back to her assisted living facility on 10/02/2020 and was given prescriptions for her Eliquis and for Hiprex. She is to follow-up with her primary care physician 1 to 2 weeks, Dr. Villavicencio as scheduled, and Dr. Varner in 4 to 6 weeks. Discharge diagnoses Recurrent MDR UTI-Klebsiella ESBL Recent rectus sheath hematoma DVT status post filter DM-2 Anemia Hyperlipidemia Morbid obesity GERD Hypertension OA RLS Depression Urinary incontinence Charge time greater than 35 minutes Patient Problems: Active and Suspected Problems (Last Reviewed 05/25/20 @ 00:[address] Elpidio Faust MD) Cystitis (Acute) Subjective: Patient reports she is feeling much better. States her daughter would like to talk to me and gets her on FaceTime we had a discussion regarding the plan of care for her mother and all questions answered to the best of my capabilities. She did ask what she could do to help prevent her mother from suffering from recurrent urinary tract infections and I deferred to infectious disease. She is now been placed on suppressive therapy. - Physical Exam Vitals/I&O's: Vital Signs Temp Pulse Resp BP Pulse Ox 97.5 F L 66 18 129/91 H 96 10/02/20 10:30 10/02/20 10:30 10/02/20 10:30 10/02/20 10:30 10/02/20 10:30 Oxygen Delivery Method Room Air Weight: 134.7 kg Body Mass Index (BMI) 49.4 Intake and Output for Last 24 Hours 09/30/20 10/01/20 10/02/20 23:59 23:59 23:59 Intake Total 2160 / 2160 360 / 360 240 / 240 Output Total 5100 / 5100 700 / 900 200 / 200 Balance -2940 / -2940 -340 / -540 40 / 40 General: Alert, Oriented x3, Cooperative, No apparent distress, Well developed, Well nourished, - - Morbidly obese white female sitting up in a chair next to the bed, appears comfortable, nontoxic HEENT: Atraumatic, PERRLA, EOMI, Normocephalic, EAC Clear Oral: Moist Mucosa, No Gingival or Mucosal Lesions/ Ulcerations, - - Mallampati 3 Neck: Supple, No JVD, Negative Carotid Bruits, Negative Hepatojugular Reflux, Trachea Midline, Thyroid Normal Size and Texture Lungs: Clear to auscultation, Normal air movement, No rhonchi, No wheeze, No rales Cardiovascular: Regular rate, Regular Rhythm, Normal S1, Normal S2, No murmurs, No Ectopic Activity, No rub noted, No Gallop Abdomen: Bowel Sounds Present, Soft, Non Tender, Non-Distended, Obese Extremities: No clubbing, No cyanosis, No edema, Capillary Refill Less than 3 Seconds, Peripheral Pulses Normal Skin: No rashes, No breakdown Musculoskeletal: No Tenderness to Palpation of Joints or Extremities, No Muscle Wasting, Arthritic Changes Lymphatic: No Cervical, Supraclavicular, or Inguinal Adenopathy Neurological: Cranial nerves II-XII grossly intact, Deep Tendon Reflexes 2+/4 and Symmetrical, Muscle tone normal, Coordination normal, - - Bilateral lower extremity neuropathy Psych/Mental Status: Normal Affect, Appropriate Microbiology Past 72 Hours 09/28/20 14:30 Urine Catheter - Catheter Urine Culture - Final Klebsiella pneumoniae 09/28/20 15:00 Blood Culture (Wb) - Left Hand Blood Culture - Preliminary No growth in 48 hours. 09/28/20 13:55 Blood Culture (Wb) - Anticubital Right Blood Culture - Preliminary No growth in 48 hours. 09/29/20 14:52 Mucosa - Nasopharyngeal SARS-CoV-2 Antigen (Rapid) - Final Laboratory Results 10/02/20 06:01: WBC 4.1 L, RBC 3.75 L, Hgb 10.4 L, Hct 34.6 L, MCV 92.3, MCH 27.7, MCHC 30.1 L, RDW Std Deviation 47.2 H, RDW Coeff of Chani 13.9, Plt Count 209, MPV 9.7, Immature Gran % (Auto) 0.700, Neut % (Auto) 41.0 L, Lymph % (Auto) 40.9, [place] % (Auto) 12.8 H, Eos % (Auto) 3.4, Baso % (Auto) 1.2 H, Absolute Neuts (auto) 1.7 L, Absolute Lymphs (auto) 1.66, Nucleated RBC % 0 10/02/20 06:01: Sodium 139, Potassium 4.5, Chloride 104, Carbon Dioxide 33.0 H, Anion Gap 2 L, BUN 22 H, Creatinine 0.69, Estim Creat Clear Calc 44.41, Est GFR (MDRD) Af Amer 107, Est GFR (MDRD) Non-Af 88, BUN/Creatinine Ratio 31.9 H, Glucose 77, Calcium 8.4 L Current Medications Acetaminophen (Acetaminophen 325 Mg Tablet) 650 mg PO Q6H PRN PRN PRN Reason: Pain Score 1-10/Temp > 100.7 F Last Admin: 10/01/20 16:37 Dose: 650 mg Documented by: Albuterol Sulfate (Albuterol 2.5 Mg/3 Ml Vial.Neb.) 2.5 mg INHALATION Q2H PRN PRN PRN Reason: Dyspnea, wheezing Apixaban (Apixaban 5 Mg Tablet) 5 mg PO BID [facility] Last Admin: 10/02/20 08:57 Dose: 5 mg Documented by: Ascorbic Acid (Ascorbic Acid 500 Mg Tablet) [facility] Last Admin: 10/02/20 08:56 Dose: 500 mg Documented by: Bupropion HCl (Bupropion (Xl) 150 Mg Tablet.Xl) 150 mg PO DAILY [facility] Last Admin: 10/02/20 08:56 Dose: 150 mg Documented by: Cholecalciferol (Cholecalciferol (Vit D3) 25 Mcg Tablet (1,000 Units)) 25 mcg PO DAILY [facility] Last Admin: 10/02/20 08:56 Dose: 25 mcg Documented by: Divalproex Sodium (Divalproex Sodium 250 Mg Tablet) 500 mg PO BID [facility] Last Admin: 10/02/20 08:57 Dose: 500 mg Documented by: Duloxetine HCl (Duloxetine Hcl 60 Mg Capsule) 60 mg PO DAILY [facility] Last Admin: 10/02/20 08:56 Dose: 60 mg Documented by: Famotidine (Famotidine 20 Mg Tablet) 20 mg PO BID [facility] Last Admin: 10/02/20 08:56 Dose: 20 mg Documented by: Furosemide (Furosemide 40 Mg Tablet) 60 mg PO DAILY [facility] Last Admin: 10/02/20 08:56 Dose: 60 mg Documented by: Gabapentin (Gabapentin 400 Mg Capsule) 400 mg PO TIDCM [facility] Last Admin: 10/02/20 12:13 Dose: 400 mg Documented by: Magnesium Hydroxide (Magnesium Hydroxide 30 Ml Udc) 30 ml PO DAILY PRN PRN Reason: CONSTIPATION Last Admin: 10/02/20 09:11 Dose: 30 ml Documented by: Mirabegron (Mirabegron 50 Mg Tab.Er.24h) 50 mg PO QHS [facility] Last Admin: 10/01/20 22:57 Dose: 50 mg Documented by: Morphine Sulfate (Morphine 2 Mg/Ml Syringe) 2 mg IV Q3H PRN PRN PRN Reason: Pain Score 6-10 Last Admin: 10/01/20 13:42 Dose: 2 mg Documented by: Ondansetron HCl (Ondansetron 4 Mg/2 Ml Vial) 4 mg IV Q8H PRN PRN PRN Reason: NAUSEA/VOMITING Last Admin: 10/02/20 12:15 Dose: 4 mg Documented by: Oxycodone HCl (Oxycodone 5 Mg Tablet) 5 mg PO Q4H PRN PRN PRN Reason: Pain Score 4-5 Last Admin: 10/01/20 22:59 Dose: 5 mg Documented by: Polyethylene Glycol (Polyethylene Glycol 3350 17 Gm Packet) 17 gm PO DAILY PRN PRN Reason: Constipation Last Admin: 10/02/20 12:13 Dose: 17 gm Documented by: Pravastatin Sodium (Pravastatin 40 Mg Tablet) 40 mg PO QHS [facility] Last Admin: 10/01/20 22:58 Dose: 40 mg Documented by: Primidone (Primidone 50 Mg Tablet) 100 mg PO QHS [facility] Last Admin: 10/01/20 22:58 Dose: 100 mg Documented by: Senna (Senna Tablet) 1 tablet PO DAILY PRN PRN PRN Reason: CONSTIPATION Last Admin: 10/01/20 10:07 Dose: 1 tablet Documented by: Simethicone (Simethicone 80 Mg Tablet) 80 mg PO TIUTM [facility] Last Admin: 10/02/20 12:13 Dose: 80 mg Documented by: Sodium Chloride (0.9% Saline Lock 10 Ml Syringe) 10 - 40 ml IV UD PRN PRN Reason: SALINE FLUSH Last Admin: 10/01/20 13:43 Dose: 10 ml Documented by: Throat Lozenges (Benzocaine/Menthol 1 Lozenge) 2 lozenge MUCOUS MEM Q2H PRN PRN PRN Reason: SORE THROAT Last Admin: 10/01/20 15:32 Dose: 2 lozenge Documented by: Tolterodine Tartrate (Tolterodine Tartrate 2 Mg Cap.Sa) 2 mg PO DAILY [facility] Last Admin: 10/02/20 09:11 Dose: 2 mg Documented by: Discharge Activity: Return to Normal Activity, No Restrictions Home Medications: Medications to take at Discharge Cholecalciferol (VIT D3) [Vitamin D3] 1,000 unit PO DAILY 12/29/15 Duloxetine Hcl [Cymbalta] 60 mg PO DAILY 12/29/15 Pravastatin [Pravachol] 40 mg PO QHS 08/05/18 Fluticasone 0.05% [Flonase Nasal [place]] 2 spray NASAL DAILY 03/18/19 Furosemide [Lasix] 60 mg PO DAILY 03/18/19 Primidone 100 mg PO DAILY 03/18/19 SimETHICONE [Mylicon] 80 mg PO TIDCM 03/18/19 Mirabegron [Myrbetriq] 50 mg PO QHS 01/24/20 Famotidine [Pepcid] 20 mg PO DAILY 03/23/20 Gabapentin [Neurontin] 400 mg PO TID 07/09/20 Divalproex Sodium [Depakote] 500 mg PO BID #0 07/11/20 Bupropion HCl [Bupropion Xl] 150 mg PO DAILY 08/09/20 D-Mannose 1,000 mg PO BID 08/09/20 Mag Hydrox/Aluminum Hyd/Simeth [Antacid Suspension] 30 ml PO Q4H PRN PRN 08/20/20 Oxybutynin Chloride [Oxybutynin Chloride ER] 10 mg PO DAILY 08/20/20 Polyethylene Glycol 3350 [Miralax] 17 gm PO DAILY PRN 08/20/20 Albuterol Aerosols [Ventolin Aerosols] 2.5 mg INHALATION Q2H PRN PRN vial.neb. 08/22/20 Acetaminophen [Tylenol] 500 - 1,000 mg PO Q6H PRN PRN 09/28/20 Ascorbic Acid [Vitamin C] 500 mg PO DAILY 09/28/20 Guaifenesin Dm [Robitussin Dm] 10 ml PO Q4H PRN 09/28/20 Magnesium Hydroxide [Milk Of Magnesia] 30 ml PO DAILY PRN PRN 09/28/20 Nystatin Powder [Mycostatin Powder] 1 applic TOPICAL 4X/DAY PRN PRN 09/28/20 Oxycodone HCl 5 mg PO Q4H PRN 09/28/20 Apixaban [Eliquis] 5 mg PO BID #60 tablet 10/02/20 Methenamine Hippurate [Hiprex] 1 gm PO BID #180 tablet 10/02/20 Following Prescriptions Were Given to Patient: Apixaban [Eliquis] 5 mg PO BID #60 tablet Transmission Status: Sent to [facility] Methenamine Hippurate [Hiprex] 1 gm PO BID #180 tablet Prescription Printed Primary Care Physician: Gonzales Pinto MD [Primary Care Provider] - Please follow up with your Primary Care Physician in: 1-2 weeks Please Follow Up With: Alejandra Villavicencio MD - Incontinence When: as scheduled Please Follow Up With: Freddy Varner MD - Recurrent UTI When: 4-6 weeks Medical Necessity - Tobacco Use Smoking Status: Never smoker Meaningful Use Info Meaningful Use Diagnoses (Choose all that apply): None applicable Inpatient E&M: [id number] [facility]
[2020-10-02 16:30] VITALS: BP 98/45; PULSE 78; RESP 18; TEMP 36.4; O2SAT 98
[2020-10-02] MEDS: BENZOCAINE/MENTHOL 1 LOZENGE 2 LOZENGE MUCOUS MEM (16:59)
[2020-10-02 17:29] VITALS: BP 98/45; PULSE 78; RESP 18; TEMP 36.4; O2SAT 98
== END 2020-10-02 17:40 | disposition skilled nursing facility (03) | DRG 690 ==
LOC: ED 14:50 → MS3 17:28
PROVIDERS: Nurse Practitioner Family; Student in an Organized Health Care Education/Training Program; Admitting Provider Family Medicine; Emergency Provider Emergency Medicine; PCP Family Medicine; Visit Provider Internal Medicine
DX: N39.0 Urinary tract infection, site not specified (principal); Z68.42 Body mass index [BMI] 45.0-49.9, adult; Z16.21 Resistance to vancomycin; B96.1 Klebsiella pneumoniae [K. pneumoniae] as the cause of diseases classified elsewhere; I10 Essential (primary) hypertension; E78.5 Hyperlipidemia, unspecified; B95.2 Enterococcus as the cause of diseases classified elsewhere; K21.9 Gastro-esophageal reflux disease without esophagitis; F32.9 Major depressive disorder, single episode, unspecified; F41.9 Anxiety disorder, unspecified; G47.33 Obstructive sleep apnea (adult) (pediatric); Z79.01 Long term (current) use of anticoagulants; E11.42 Type 2 diabetes mellitus with diabetic polyneuropathy; G89.28 Other chronic postprocedural pain; D50.9 Iron deficiency anemia, unspecified; E66.01 Morbid (severe) obesity due to excess calories; M99.01 Segmental and somatic dysfunction of cervical region; M99.02 Segmental and somatic dysfunction of thoracic region; M99.05 Segmental and somatic dysfunction of pelvic region; M99.03 Segmental and somatic dysfunction of lumbar region; Z82.49 Family history of ischemic heart disease and other diseases of the circulatory system; Z87.440 Personal history of urinary (tract) infections; Z86.718 Personal history of other venous thrombosis and embolism; Z87.442 Personal history of urinary calculi; Z90.710 Acquired absence of both cervix and uterus; Z95.828 Presence of other vascular implants and grafts; Z98.84 Bariatric surgery status; S30.1XXS Contusion of abdominal wall, sequela; Z96.659 Presence of unspecified artificial knee joint; G25.81 Restless legs syndrome; M19.90 Unspecified osteoarthritis, unspecified site; M47.816 Spondylosis without myelopathy or radiculopathy, lumbar region
CPT/HCPCS: 36415; 80048; 81001; 83605; 85025; 87040; 87077; 87086; 87088; 87186; 87426; 97110; 97162; 97166; 97530; 97802; 99285; J2185; J7030; J7040; A4216; J2405

== ENCOUNTER → 2020-10-09 14:37 | Outpatient (CLI) | payer MEDICARE, MEDICAID, SELFPAY ==
[2020-09-28 17:41] VITALS: BMI 49.4
[2020-10-09 17:55] LABS: Anion Gap 8 (5-15); BUN 15 mg/dL (7-18); BUN/Creat Ratio 17.6 RATIO (10-20); Calcium,Total 8.8 mg/dL (8.5-10.1); Chloride 107 mmol/L (98-107); Creatinine, Serum 0.85 mg/dL (0.55-1.02); EST Glomerular Filtration Rate 69 mL/min (>60); Est Glom Filt Rate - Afr Amer 84 mL/min (>60); Glucose 92 mg/dL (74-106); Magnesium 2.1 mg/dL (1.6-2.6); Phosphorus 3.7 mg/dL (2.5-4.9); Potassium 4.2 mmol/L (3.5-5.1); Sodium Level 139 mmol/L (136-145)
[2020-10-09 18:00] LABS: Vitamin D,25 Hydroxy 31.9 ng/mL
== END ==
PROVIDERS: PCP Family Medicine; Visit Provider Family Medicine
DX: E83.51 Hypocalcemia (principal)
CPT/HCPCS: 36415; 80048; 82306; 83735; 84100

== ENCOUNTER 2020-10-23 12:02 | Inpatient (IN) | payer MEDICARE, MEDICAID, SELFPAY ==
[2020-09-28 17:41] VITALS: BMI 49.4
[2020-10-23] VITALS (10 sets, daily range): BP systolic 116–142; BP diastolic 49–86; PULSE 73–89; RESP 16–18; TEMP 36.7–37; O2SAT 94–97; BMI 50.3; BMI 50.2
--- NOTE | 2020-10-23 12:40 | EDS_ITS ---
HPI History of Present Illness Chief Complaint: Complaint Informant: patient Onset/Context/Timing Onset: Days (4 days) Context: Gradual Onset Current Severity: Moderate Maximum Severity: Moderate Narrative Narrative: Patient complains of lower abdominal pain and back pain with bladder pressure. She has a history of frequent UTIs and believes she has another one. She states her last UTI was a month ago. She does report some dysuria but no obvious hematuria. She has had some mild chills. PFSH PFS Medical History (Updated 10/23/20 @ 16:53 by Manda Linares) Arthritis Arthritis Bilateral headaches Carpal tunnel syndrome Cataracts, both eyes Closed left arm fracture Diabetes DVT (deep venous thrombosis) FHx: cholecystectomy GI bleed Hearing loss, left Hearing loss, right Heart disease History of gallstones Hypertension Kidney stones Neuropathy Non-smoker Osteoarthritis Polycystic ovaries Pulmonary embolism Home Medications cholecalciferol (vitamin D3) [Vitamin D3] 1,000 unit PO DAILY 12/29/15 [History Last Taken 10/22/20] duloxetine 60 mg PO DAILY 12/29/15 [History Last Taken 10/22/20] pravastatin 40 mg PO QHS 08/05/18 [History Last Taken 10/22/20] fluticasone propionate 2 spray NASAL DAILY 03/18/19 [History Last Taken 10/22/20] furosemide 60 mg PO DAILY 03/18/19 [History Last Taken 10/22/20] primidone 50 mg PO TID 03/18/19 [History Last Taken 10/22/20] simethicone 80 mg PO TIDCM 03/18/19 [History Last Taken 10/22/20] mirabegron 50 mg PO QHS 01/24/20 [History Last Taken 10/22/20] famotidine 20 mg PO DAILY 03/23/20 [History Last Taken 10/22/20] gabapentin 400 mg PO TID 07/09/20 [History Last Taken 10/22/20] divalproex 500 mg PO BID #0 07/11/20 [Rx Last Taken 10/22/20] D-Mannose 1,000 mg PO BID 08/09/20 [History Last Taken 10/22/20] bupropion HCl 150 mg PO DAILY 08/09/20 [History Last Taken 10/22/20] alum-mag hydroxide-simeth 30 ml PO Q4H PRN PRN 08/20/20 [History Last Taken 10/22/20] oxybutynin chloride 10 mg PO DAILY 08/20/20 [History Last Taken 10/22/20] albuterol sulfate 2.5 mg INHALATION Q2H PRN PRN vial.neb. 08/22/20 [Rx Last Taken Unknown] acetaminophen 500 - 1,000 mg PO Q6H PRN PRN 09/28/20 [History Last Taken 10/22/20] ascorbic acid (vitamin C) 500 mg PO DAILY 09/28/20 [History Last Taken 10/22/20] oxycodone 5 mg PO Q4H PRN 09/28/20 [History Last Taken 10/22/20] apixaban 5 mg PO BID #60 tablet 10/02/20 [Rx Last Taken 10/22/20] methenamine hippurate 1 gm PO BID #180 tablet 10/02/20 [Rx Last Taken 10/22/20] cyanocobalamin (vitamin B-12) [Cyanacobalamin] 1,000 mcg IM QMONTH 10/23/20 [History Last Taken 10/22/20] ferrous sulfate 325 mg PO DAILY 10/23/20 [History Last Taken 10/22/20] primidone 100 mg PO DAILY 10/23/20 [History Last Taken 10/22/20] Allergy/AdvReac Type Severity Reaction Status Date / Time ampicillin [From Unasyn] Allergy Severe Other Verified 09/28/20 13:32 warfarin sodium Allergy Severe Low red Verified 09/28/20 13:32 [From Coumadin] blood cells Family History (Updated 10/23/20 @ 16:54 by Manda Linares) Father Colon cancer Hypertension Mother Hypertension Surgical History (Updated 10/23/20 @ 16:52 by Manda Linares) History of carpal tunnel surgery History of cholecystectomy History of embolic filter insertion History of hysterectomy Total knee replacement status Social History Smoking Status: Never smoker alcohol intake: current alcohol intake frequency: holidays/special occasions only substance use type: does not use what type of physical activity do you participate in: walking and aerobics frequency: 1-2 times per week ROS ROS ED Constitutional Constitutional ED: Reports chills; Denies fever(s) Eyes Eyes: Denies change in vision ENT ENT ED: Denies sore throat Cardiovascular Cardiovascular: Denies chest pain Respiratory/Chest Respiratory/Chest: Denies cough or dyspnea Gastrointestinal Gastrointestinal: Reports abdominal pain; Denies diarrhea, nausea or vomiting Genitourinary Genitourinary ED: Reports dysuria; Denies hematuria Musculoskeletal Musculoskeletal: Reports back pain Integumentary Denies rash Neurologic Neurologic: Denies headache(s) or weakness Psychiatric Psychiatric: Denies anxiety or depression Endocrine Endocrinology: Denies polydipsia or polyuria Allergic/Immunologic Allergic/Immunologic ED: Denies urticaria EXAM Physical Exam Const Vital Signs: 10/23/20 12:03 10/23/20 12:07 10/23/20 14:02 Temperature 98.4 F 98.4 F 98.6 F Temperature Source Oral Oral Temporal Pulse Rate 79 79 78 Respiratory Rate 18 18 16 Blood Pressure 116/67 116/67 142/71 H Blood Pressure Mean 83 83 94 Pulse Ox 95 95 95 Oxygen Delivery Method Room Air Room Air Room Air 10/23/20 14:07 10/23/20 15:00 Temperature 98.6 F 98.1 F Temperature Source Temporal Temporal Pulse Rate 75 73 Respiratory Rate 18 18 Blood Pressure 142/71 H 116/86 H Blood Pressure Mean 94 96 Pulse Ox 95 97 Oxygen Delivery Method Room Air Positive well nourished and well developed General Appearance ED: well developed HEENT Reports normocephalic and head/scalp atraumatic Eyes PERRL and EOMs intact bilaterally Neck supple Chest Wall inspection of chest normal and palpation of chest normal Resp normal respiratory effort and clear to auscultation bilaterally Cardio regular rate and regular rhythm GI Palpation: soft and tender suprapubic Extremity normal to inspection Neuro oriented x3 Sensorium / Orientation: alert Psych mental status grossly normal Skin no rashes or lesions noted MDM MDM MDM Narrative Medical decision making narrative: Patient was given IV fluids along with a dose of fentanyl for pain control. Lab Data Attestation: I reviewed the patient's lab results. Labs: Laboratory Results - last 24 hr 10/23/20 10/23/20 10/23/20 12:15 13:10 13:10 WBC 3.8 L RBC 3.85 L Hgb 10.5 L Hct 33.2 L MCV 86.2 MCH 27.3 MCHC 31.6 L RDW Std Deviation 44.0 H RDW Coeff of Chani 13.9 Plt Count 220 MPV 10.0 Immature Gran % (Auto) 0.300 Neut % (Auto) 53.3 Lymph % (Auto) 31.7 [place] % (Auto) 11.2 H Eos % (Auto) 2.7 Baso % (Auto) 0.8 Absolute Neuts (auto) 2.0 Absolute Lymphs (auto) 1.19 Nucleated RBC % 0 Sodium 141 Potassium 3.3 L Chloride 106 Carbon Dioxide 29.0 Anion Gap 6 BUN 19 H Creatinine 0.69 Estim Creat Clear Calc 44.41 Est GFR (MDRD) Af Amer 106 Est GFR (MDRD) Non-Af 88 BUN/Creatinine Ratio 27.4 H Glucose 88 Calcium 8.3 L Urine Color Yellow Urine Clarity Sl. Cloudy Urine pH 6.0 Ur Specific [place] 1.015 Urine Protein 15 H Urine Glucose (UA) Normal Urine Ketones Negative Urine Occult Blood 50 H Urine Nitrite Positive H Urine Bilirubin Negative Urine Urobilinogen Normal Ur Leukocyte Esterase 500 H Urine RBC 0-5 SEEN Urine WBC 25-50 SEEN Ur Squamous Epith Cells 0 SEEN Urine Bacteria 2+ Urine Mucus 0 SEEN Treatment and Re-Evaluation Comments:: Urine is clearly infected again. Patient has a history of multidrug- resistant organisms. Her last UTI grew Klebsiella pneumonia with sensitivity to only 2 5 IV antibiotics. At this time patient is given a dose of meropenem which she received last time and did well. Urine culture is pending. Patient will require admission until culture is available to determine sensitivity. Discharge Plan Dx/Rx/DC Orders Clinical Impression: Acute UTI Disposition Disposition: Acute Care Hospital [facility] Discharge Date/Time: 10/23/20 17:03
[2020-10-23 13:08] LABS: Mucous, Urine 0 SEEN /hpf (<or=2+); Squamous Epithelial Cells - UA 0 SEEN /hpf (5-10)
[2020-10-23 13:09] LABS: Color, Urine Yellow (Yellow); Glucose, Dipstick Normal (Normal); Ketone-Dipstick Negative (Negative); Leukocyte Esterase-Dipstick 500 /ul (Negative); Nitrite-Dipstick Positive (Negative); Occult Blood-Urine 50 /ul (Negative); Protein-Dipstick 15 mg/dl (Negative); Specific Gravity, Urine 1.015 (1.002-1.030); Urine Bilirubin Dipstick Negative (Negative); Urine Clarity Sl. Cloudy (Clear); Urine Urobilinogen Normal (Normal)
[2020-10-23 13:19] LABS: Bacteria 2+ /hpf (None Seen); Red Blood Cells-Urine 0-5 SEEN /hpf (0-5); White Blood Cells 25-50 SEEN /hpf (0-5)
[2020-10-23 13:19] LABS: Absolute Lymphocyte Count 1.19 X10^3/uL (0.83-4.51); Basophil# 0.03 X10^3/uL; Basophil% 0.8 % (0-1); Eosinophils% 2.7 % (0-5); Hematocrit 33.2 % (37-47); Hemoglobin 10.5 g/dL (12.0-15.0); Lymphocyte # 1.19 X10^3/ul (0.83-4.51); Lymphocyte % 31.7 % (19-41); Mean Corp Hgb Conc 31.6 g/dL (32-36); Mean Corpuscular Hgb 27.3 pg (27.0-32.0); Mean Corpuscular Volume 86.2 fL (81-99); Monocyte# 0.42 X10^3/uL; Monocyte% 11.2 % (0-10); NRBC Flagged by Analyzer 0 % (0-5); Neutrophil % 53.3 % (47-70); Platelet Count 220 K/mm3 (150-450); RBC Distribution Width CV 13.9 % (11.6-14.6); Red Blood Count 3.85 M/mm3 (4.2-5.4); White Blood Count 3.8 K/mm3 (4.4-11.0)
[2020-10-23] MEDS: Ondansetron 4 MG/2 ML Vial IV ×2 (13:20→19:00)
[2020-10-23] MEDS: fentaNYL 100 MCG/2 ML Ampul 25 MCG IV ×2 (13:20→15:26)
[2020-10-23] MEDS: 0.9% Normal Saline 1,000 ML 150 ML IV (13:20)
[2020-10-23 13:33] LABS: Anion Gap 6 (5-15); BUN 19 mg/dL (7-18); BUN/Creat Ratio 27.4 RATIO (10-20); Calcium,Total 8.3 mg/dL (8.5-10.1); Chloride 106 mmol/L (98-107); Creatinine, Serum 0.69 mg/dL (0.55-1.02); EST Glomerular Filtration Rate 88 mL/min (>60); Est Glom Filt Rate - Afr Amer 106 mL/min (>60); Estimated Creatinine Clearance 44.41 ml/min; Glucose 88 mg/dL (74-106); Potassium 3.3 mmol/L (3.5-5.1); Sodium Level 141 mmol/L (136-145)
--- NOTE | 2020-10-23 16:25 | PCM.HP.STD ---
HPI - General General Date of Admission: 10/23/20 Chief Complaint: Generalized weakness [facility] Narrative ADAM NIX, is a 75 F who presents generalized weakness. Patient has significant history including admissions for multidrug-resistant organisms. Patient last admission was from 09/28/2020 to 10/02/2020 patient did grow Klebsiella multidrug-resistant patient did present this time with a 3-day history of bladder pressure. Patient also did complain of generalized weakness. Urinalysis obtained in the ED was consistent with UTI. Admitted to regular nursing floor after patient was started on broad-spectrum antibiotic therapy [facility] Medical History Arthritis Bilateral headaches Carpal tunnel syndrome Cataracts, both eyes Closed left arm fracture Diabetes FHx: cholecystectomy Heart disease History of gallstones Hypertension Neuropathy Osteoarthritis Polycystic ovaries Home Medications cholecalciferol (vitamin D3) [Vitamin D3] 1,000 unit PO DAILY 12/29/15 [History Last Taken 10/22/20] duloxetine 60 mg PO DAILY 12/29/15 [History Last Taken 10/22/20] pravastatin 40 mg PO QHS 08/05/18 [History Last Taken 10/22/20] fluticasone propionate 2 spray NASAL DAILY 03/18/19 [History Last Taken 10/22/20] furosemide 60 mg PO DAILY 03/18/19 [History Last Taken 10/22/20] primidone 50 mg PO TID 03/18/19 [History Last Taken 10/22/20] simethicone 80 mg PO TIDCM 03/18/19 [History Last Taken 10/22/20] mirabegron 50 mg PO QHS 01/24/20 [History Last Taken 10/22/20] famotidine 20 mg PO DAILY 03/23/20 [History Last Taken 10/22/20] gabapentin 400 mg PO TID 07/09/20 [History Last Taken 10/22/20] divalproex 500 mg PO BID #0 07/11/20 [Rx Last Taken 10/22/20] D-Mannose 1,000 mg PO BID 08/09/20 [History Last Taken 10/22/20] bupropion HCl 150 mg PO DAILY 08/09/20 [History Last Taken 10/22/20] alum-mag hydroxide-simeth 30 ml PO Q4H PRN PRN 08/20/20 [History Last Taken 10/22/20] oxybutynin chloride 10 mg PO DAILY 08/20/20 [History Last Taken 10/22/20] albuterol sulfate 2.5 mg INHALATION Q2H PRN PRN vial.neb. 08/22/20 [Rx Last Taken Unknown] acetaminophen 500 - 1,000 mg PO Q6H PRN PRN 09/28/20 [History Last Taken 10/22/20] ascorbic acid (vitamin C) 500 mg PO DAILY 09/28/20 [History Last Taken 10/22/20] oxycodone 5 mg PO Q4H PRN 09/28/20 [History Last Taken 10/22/20] apixaban 5 mg PO BID #60 tablet 10/02/20 [Rx Last Taken 10/22/20] methenamine hippurate 1 gm PO BID #180 tablet 10/02/20 [Rx Last Taken 10/22/20] cyanocobalamin (vitamin B-12) [Cyanacobalamin] 1,000 mcg IM QMONTH 10/23/20 [History Last Taken 10/22/20] ferrous sulfate 325 mg PO DAILY 10/23/20 [History Last Taken 10/22/20] primidone 100 mg PO DAILY 10/23/20 [History Last Taken 10/22/20] Allergy/AdvReac Type Severity Reaction Status Date / Time ampicillin [From Unasyn] Allergy Severe Other Verified 09/28/20 13:32 warfarin sodium Allergy Severe Low red Verified 09/28/20 13:32 [From Coumadin] blood cells Family History Other Heart disease High cholesterol Hypertension Myocardial infarction Surgical History History of carpal tunnel surgery History of hysterectomy Total knee replacement status Social History Smoking Status: Never smoker alcohol intake: current alcohol intake frequency: holidays/special occasions only substance use type: does not use what type of physical activity do you participate in: walking and aerobics frequency: 1-2 times per week ROS ROS Narrative GENERAL: denies fever, chills, HEENT: denies headache, sinus congestion, RESPIRATORY: denies cough, sputum production, CARDIAC: denies chest pain, palpitations, GASTROINTESTINAL: denies abdominal pain, GENITOURINARY: dysuria, urgency EXTREMITY: denies swelling MUSCULOSKELETAL: denies current joint pain NEUROLOGIC: denies focal numbness,g HEMATOLOGIC: denies easy bruising INTEGUMENT: denies rashes PSYCHIATRIC: denies suicidal or homicidal ideation Vital Signs Vital Signs Vital Signs: 10/23/20 12:03 10/23/20 12:07 10/23/20 14:02 Temperature 98.4 F 98.4 F 98.6 F Temperature Source Oral Oral Temporal Pulse Rate 79 79 78 Respiratory Rate 18 18 16 Blood Pressure 116/67 116/67 142/71 H Blood Pressure Mean 83 83 94 Pulse Ox 95 95 95 Oxygen Delivery Method Room Air Room Air Room Air 10/23/20 14:07 10/23/20 15:00 Temperature 98.6 F 98.1 F Temperature Source Temporal Temporal Pulse Rate 75 73 Respiratory Rate 18 18 Blood Pressure 142/71 H 116/86 H Blood Pressure Mean 94 96 Pulse Ox 95 97 Oxygen Delivery Method Room Air Physical Exam Narrative GENERAL: cooperative HEENT: Atraumatic; EYES; Anicteric, Normal Conjunctiva NECK; supple, normal thyroid, RESPIRATORY: Diminished to auscultation CARDIOVASCULAR: Regular S1 S2, GI: soft, normoactive bowel sounds, : No Renal angle tenderness; EXTREMITIES: No edema, no clubbing, MUSCULOSKELETAL: no muscle waisting NEURO: Awake; no lateralizing signs. SKIN: No Rash PSYCH; Flat affect Lab / Micro Data Result Diagrams: 10/23/20 13:10 10/23/20 13:10 Labs: Laboratory Results - last 24 hr 10/23/20 10/23/20 10/23/20 12:15 13:10 13:10 WBC 3.8 L RBC 3.85 L Hgb 10.5 L Hct 33.2 L MCV 86.2 MCH 27.3 MCHC 31.6 L RDW Std Deviation 44.0 H RDW Coeff of Chani 13.9 Plt Count 220 MPV 10.0 Immature Gran % (Auto) 0.300 Neut % (Auto) 53.3 Lymph % (Auto) 31.7 [place] % (Auto) 11.2 H Eos % (Auto) 2.7 Baso % (Auto) 0.8 Absolute Neuts (auto) 2.0 Absolute Lymphs (auto) 1.19 Nucleated RBC % 0 Sodium 141 Potassium 3.3 L Chloride 106 Carbon Dioxide 29.0 Anion Gap 6 BUN 19 H Creatinine 0.69 Estim Creat Clear Calc 44.41 Est GFR (MDRD) Af Amer 106 Est GFR (MDRD) Non-Af 88 BUN/Creatinine Ratio 27.4 H Glucose 88 Calcium 8.3 L Urine Color Yellow Urine Clarity Sl. Cloudy Urine pH 6.0 Ur Specific [place] 1.015 Urine Protein 15 H Urine Glucose (UA) Normal Urine Ketones Negative Urine Occult Blood 50 H Urine Nitrite Positive H Urine Bilirubin Negative Urine Urobilinogen Normal Ur Leukocyte Esterase 500 H Urine RBC 0-5 SEEN Urine WBC 25-50 SEEN Ur Squamous Epith Cells 0 SEEN Urine Bacteria 2+ Urine Mucus 0 SEEN Assessment & Plan Assessment/Plan (1) Acute UTI: Status: Acute Code(s): N39.0 - Urinary tract infection, site not specified (2) Cystitis: Status: Acute Code(s): N30.90 - Cystitis, unspecified without hematuria (3) HTN (hypertension): Status: Chronic Code(s): I10 - Essential (primary) hypertension (4) HLD (hyperlipidemia): Status: Chronic Code(s): E78.5 - Hyperlipidemia, unspecified (5) GERD (gastroesophageal reflux disease): Status: Chronic Code(s): K21.9 - Gastro-esophageal reflux disease without esophagitis Plan: Patient is a 75-year-old lady with history of recurrent UTIs with multidrug resistance organisms presenting with bladder pressure and generalized weakness urinalysis obtained on admission consistent with acute cystitis 1. Acute cystitis ?Patient has history of multidrug-resistant organism. She did grow Klebsiella pneumonia from her urine culture during her previous admission a month ago. Patient was started on meropenem based on sensitivity from her previous admission 2. Dyslipidemia -Patient is on statin therapy, continued at home dose 3. Morbid obesity - With a BMI of 50.3 patient was counseled on weight reduction. Patient has previous history of gastric bypass 4. Diabetes mellitus type 2 ?Apparently diet controlled 5. Anemia - Secondary to chronic disorder monitoring H&H and transfuse if patient becomes symptomatic or hemoglobin falls below 7 6. GERD ?Patient is on famotidine 7. History of previous DVT status post IVC filter ?Patient is on apixaban did continue 8. Chronic neuropathic pain ?Patient is on gabapentin 9. DVT prophylaxis ?On apixaban Advance planning; did discuss with the patient regarding advanced directives as well as CODE STATUS. Did explain the various scenarios involved ( FULL CODE, DNR CCA, DNR CCA with no intubation, and DNR CC and what each meant) patient elected full code with CPR and intubation if indicated. Order was placed. Time spent on discussion 18 minutes. Visit Charges Inpatient E&M: 38652 Init Hosp L3 Procedures Hospitalists Procedures: [id number] Advncd Care Plan 30 Min
[2020-10-23] MEDS: oxyCODONE 5 MG Tablet 10 MG PO ×2 (18:58→23:30)
[2020-10-23] MEDS: Primidone 50 MG Tablet PO (22:20)
[2020-10-23] MEDS: Pravastatin 40 MG Tablet PO (22:20)
[2020-10-23] MEDS: Mirabegron 50 MG TAB.ER.24H PO (22:21)
[2020-10-23] MEDS: APIXABAN 5 MG TABLET PO (22:21)
[2020-10-23] MEDS: Gabapentin 400 MG Capsule PO (22:21)
[2020-10-24 02:50] VITALS: BP 95/49; PULSE 87; RESP 18; TEMP 37.1; O2SAT 93
[2020-10-24] MEDS: oxyCODONE 5 MG Tablet 10 MG PO ×4 (04:36→16:53)
[2020-10-24] MEDS: Primidone 50 MG Tablet PO ×3 (05:58→21:25)
[2020-10-24] MEDS: Gabapentin 400 MG Capsule PO ×3 (05:58→21:25)
[2020-10-24] MEDS: Acetaminophen 325 MG Tablet 650 MG PO ×3 (06:33→18:45)
[2020-10-24 06:52] LABS: Absolute Lymphocyte Count 1.43 X10^3/uL (0.83-4.51); Absolute Neutrophil Count 1.8 X10^3/uL (2.0-7.7); Basophil# 0.03 X10^3/uL; Basophil% 0.8 % (0-1); Eosinophils% 2.6 % (0-5); Hematocrit 34.1 % (37-47); Lymphocyte # 1.43 X10^3/ul (0.83-4.51); Lymphocyte % 37.4 % (19-41); Mean Corp Hgb Conc 29.3 g/dL (32-36); Mean Corpuscular Hgb 26.2 pg (27.0-32.0); Mean Corpuscular Volume 89.5 fL (81-99); Mean Platelet Vol. 10.3 fl (6.2-12.0); Monocyte# 0.43 X10^3/uL; Monocyte% 11.3 % (0-10); NRBC Flagged by Analyzer 0 % (0-5); Neutrophil # 1.82 X10^3/uL (2.7-7.7); Neutrophil % 47.6 % (47-70); Platelet Count 202 K/mm3 (150-450); Red Blood Count 3.81 M/mm3 (4.2-5.4); White Blood Count 3.8 K/mm3 (4.4-11.0)
[2020-10-24 07:23] VITALS: O2SAT 95
[2020-10-24 07:23] LABS: Anion Gap 5 (5-15); BUN 24 mg/dL (7-18); Chloride 110 mmol/L (98-107); Creatinine, Serum 0.65 mg/dL (0.55-1.02); EST Glomerular Filtration Rate 95 mL/min (>60); Est Glom Filt Rate - Afr Amer 115 mL/min (>60); Estimated Creatinine Clearance 44.41 ml/min; Glucose 79 mg/dL (74-106); Magnesium 2.2 mg/dL (1.6-2.6); Potassium 3.6 mmol/L (3.5-5.1); Sodium Level 141 mmol/L (136-145)
--- NOTE | 2020-10-24 07:24 | PN.HOSP_ITS ---
Subjective Subjective: Patient is a 75-year-old lady with history of recurrent UTIs with multidrug resistance organisms presenting with bladder pressure and generalized weakness urinalysis obtained on admission consistent with acute cystitis Seen this a.m. patient complains of lower abdominal discomfort. Started on Pyridium for symptomatic control. Urine culture sent on admission results still pending Objective Data Objective Data Vital Signs: Vital Signs Temp Pulse Resp BP Pulse Ox 98.7 F 87 18 95/49 L 93 10/24/20 02:50 10/24/20 02:50 10/24/20 02:50 10/24/20 02:50 10/24/20 02:50 Oxygen Delivery Method Room Air Weight: 302 lb Body Mass Index (BMI) 50.2 Intake & Output: Intake and Output for Last 24 Hours 10/22/20 10/23/20 10/24/20 23:59 23:59 23:59 Intake Total 1520 / 1520 1073.33 / 1073.33 Output Total 600 / 600 350 / 350 Balance 920 / 920 723.33 / 723.33 Lab / Micro Data Result Diagrams: 10/24/20 05:45 10/24/20 05:45 Labs: Laboratory Results - last 24 hr 10/23/20 10/23/20 10/23/20 12:15 13:10 13:10 WBC 3.8 L RBC 3.85 L Hgb 10.5 L Hct 33.2 L MCV 86.2 MCH 27.3 MCHC 31.6 L RDW Std Deviation 44.0 H RDW Coeff of Chani 13.9 Plt Count 220 MPV 10.0 Immature Gran % (Auto) 0.300 Neut % (Auto) 53.3 Lymph % (Auto) 31.7 [place] % (Auto) 11.2 H Eos % (Auto) 2.7 Baso % (Auto) 0.8 Absolute Neuts (auto) 2.0 Absolute Lymphs (auto) 1.19 Nucleated RBC % 0 Sodium 141 Potassium 3.3 L Chloride 106 Carbon Dioxide 29.0 Anion Gap 6 BUN 19 H Creatinine 0.69 Estim Creat Clear Calc 44.41 Est GFR (MDRD) Af Amer 106 Est GFR (MDRD) Non-Af 88 BUN/Creatinine Ratio 27.4 H Glucose 88 Calcium 8.3 L Magnesium Urine Color Yellow Urine Clarity Sl. Cloudy Urine pH 6.0 Ur Specific [place] 1.015 Urine Protein 15 H Urine Glucose (UA) Normal Urine Ketones Negative Urine Occult Blood 50 H Urine Nitrite Positive H Urine Bilirubin Negative Urine Urobilinogen Normal Ur Leukocyte Esterase 500 H Urine RBC 0-5 SEEN Urine WBC 25-50 SEEN Ur Squamous Epith Cells 0 SEEN Urine Bacteria 2+ Urine Mucus 0 SEEN 10/24/20 10/24/20 05:45 05:45 WBC 3.8 L RBC 3.81 L Hgb 10.0 L Hct 34.1 L MCV 89.5 MCH 26.2 L MCHC 29.3 L D RDW Std Deviation 46.0 H RDW Coeff of Chani 14.0 Plt Count 202 MPV 10.3 Immature Gran % (Auto) 0.300 Neut % (Auto) 47.6 Lymph % (Auto) 37.4 [place] % (Auto) 11.3 H Eos % (Auto) 2.6 Baso % (Auto) 0.8 Absolute Neuts (auto) 1.8 L Absolute Lymphs (auto) 1.43 Nucleated RBC % 0 Sodium 141 Potassium 3.6 Chloride 110 H Carbon Dioxide 26.0 Anion Gap 5 BUN 24 H Creatinine 0.65 Estim Creat Clear Calc 44.41 Est GFR (MDRD) Af Amer 115 Est GFR (MDRD) Non-Af 95 BUN/Creatinine Ratio 37.0 H Glucose 79 Calcium 8.0 L Magnesium 2.2 Urine Color Urine Clarity Urine pH Ur Specific [place] Urine Protein Urine Glucose (UA) Urine Ketones Urine Occult Blood Urine Nitrite Urine Bilirubin Urine Urobilinogen Ur Leukocyte Esterase Urine RBC Urine WBC Ur Squamous Epith Cells Urine Bacteria Urine Mucus Physical Exam Narrative GENERAL: cooperative HEENT: Atraumatic; EYES; Anicteric, Normal Conjunctiva NECK; supple, normal thyroid, RESPIRATORY: Diminished to auscultation CARDIOVASCULAR: Regular S1 S2, GI: soft, normoactive bowel sounds, : No Renal angle tenderness; EXTREMITIES: No edema, no clubbing, MUSCULOSKELETAL: no muscle waisting NEURO: Awake; no lateralizing signs. SKIN: No Rash PSYCH; Flat affect Assessment & Plan Assessment/Plan (1) Acute UTI: Status: Acute Code(s): N39.0 - Urinary tract infection, site not specified (2) Cystitis: Status: Acute Code(s): N30.90 - Cystitis, unspecified without hematuria (3) HTN (hypertension): Status: Chronic Code(s): I10 - Essential (primary) hypertension (4) HLD (hyperlipidemia): Status: Chronic Code(s): E78.5 - Hyperlipidemia, unspecified (5) GERD (gastroesophageal reflux disease): Status: Chronic Code(s): K21.9 - Gastro-esophageal reflux disease without esophagitis Plan: Patient is a 75-year-old lady with history of recurrent UTIs with multidrug resistance organisms presenting with bladder pressure and generalized weakness urinalysis obtained on admission consistent with acute cystitis 1. Acute cystitis ?Patient has history of multidrug-resistant organism. She did grow Klebsiella pneumonia from her urine culture during her previous admission a month ago. Patient was started on meropenem based on sensitivity from her previous admission -10/24/2020een this a.m. patient complains of lower abdominal discomfort. Started on Pyridium for symptomatic control. Urine culture sent on admission results still pending 2. Dyslipidemia -Patient is on statin therapy, continued at home dose 3. Morbid obesity - With a BMI of 50.3 patient was counseled on weight reduction. Patient has previous history of gastric bypass 4. Diabetes mellitus type 2 ?Apparently diet controlled 5. Anemia - Secondary to chronic disorder monitoring H&H and transfuse if patient becomes symptomatic or hemoglobin falls below 7 6. GERD ?Patient is on famotidine 7. History of previous DVT status post IVC filter ?Patient is on apixaban did continue 8. Chronic neuropathic pain ?Patient is on gabapentin 9. DVT prophylaxis ?On apixaban Visit Charges Inpatient E&M: 73168 Subs Hosp L2
[2020-10-24] MEDS: Tolterodine Tartrate 2 MG CAP.SA PO (08:39)
[2020-10-24] MEDS: DULoxetine Hcl 60 MG Capsule PO (08:39)
[2020-10-24] MEDS: APIXABAN 5 MG TABLET PO ×2 (08:39→21:26)
[2020-10-24] MEDS: buPROPion (XL) 150 MG TABLET.XL PO (08:40)
[2020-10-24] MEDS: Famotidine 20 MG Tablet PO (08:40)
[2020-10-24] MEDS: Fluticasone 0.05% 1 SPRAY NASAL.SRY 2 SPRAY NASAL (08:42)
[2020-10-24] MEDS: Phenazopyridine 95 MG Tablet PO ×3 (08:46→21:26)
[2020-10-24 08:48] VITALS: BP 124/58; PULSE 73; RESP 16; TEMP 36.6; O2SAT 96
--- NOTE | 2020-10-24 10:03 | CASEMGMT ---
Addendum entered by Maria E Martinez 10/24/20 10:13: SW placed a call to pt's CM Brook Schwarz at [facility] and left message updating her on pt's admission to [facility]. Original Note: Social Work Note Pt is listed as being from [facility]. SW familiar with pt from previous visits. SW in to speak with pt. SW introduced self and role at [facility]. Pt states she remembers this worker from previous visits. Pt confirms she came from [facility] and would like to return there at discharge. SW informed pt that if IV antibiotics are needed, pt will need SNF. ?Patient was provided a list of SNF providers including quality and resource use data and consistent with the patient?s preferred geographic region, medical needs, and insurance network. Pt's preferred provider is [facility] if SNF is needed. RUKHSANA faxed updated clinicals to [facility]. ? Plan: Return to [facility] Maria E Martinez CLINICAL SOCIOLOGIST, MATZO FORMING MACHINE OPERATOR
--- NOTE | 2020-10-24 12:11 | CASEMGMT ---
Palliative screening tool completed at this time for Lace/Strata 3. Patient does not meet criteria.
[2020-10-24] MEDS: Ferrous Sulfate 325 MG Tablet PO (12:34)
[2020-10-24 12:41] VITALS: BP 108/67; PULSE 70; RESP 16; TEMP 36.4; O2SAT 96
[2020-10-24 14:44] VITALS: BP 116/66; PULSE 74; RESP 16; TEMP 36.6; O2SAT 93
[2020-10-24] MEDS: oxyCODONE 5 MG Tablet PO (21:25)
[2020-10-24] MEDS: Pravastatin 40 MG Tablet PO (21:25)
[2020-10-24] MEDS: MELATONIN 3 MG TABLET PO (21:25)
[2020-10-24] MEDS: Mirabegron 50 MG TAB.ER.24H PO (21:26)
[2020-10-24 21:39] VITALS: BP 119/58; PULSE 69; RESP 18; TEMP 36.7; O2SAT 95
[2020-10-24] MEDS: Mag Hydrox/Al Hydrox/Simeth 30 ML UDC PO (21:43)
[2020-10-25] MEDS: Acetaminophen 325 MG Tablet 650 MG PO ×2 (01:49→08:45)
[2020-10-25] MEDS: oxyCODONE 5 MG Tablet 10 MG PO ×4 (01:57→20:32)
[2020-10-25 01:58] VITALS: BP 110/49; PULSE 66; RESP 16; TEMP 36.6; O2SAT 95
[2020-10-25] MEDS: Gabapentin 400 MG Capsule PO ×3 (05:26→20:42)
[2020-10-25] MEDS: Phenazopyridine 95 MG Tablet PO ×3 (05:27→20:32)
[2020-10-25] MEDS: Primidone 50 MG Tablet PO ×3 (05:27→20:42)
[2020-10-25 05:35] LABS: Absolute Lymphocyte Count 1.28 X10^3/uL (0.83-4.51); Absolute Neutrophil Count 2.1 X10^3/uL (2.0-7.7); Basophil# 0.03 X10^3/uL; Basophil% 0.7 % (0-1); Eosinophil# 0.12 X10^3/uL; Hematocrit 33.9 % (37-47); Hemoglobin 9.9 g/dL (12.0-15.0); Lymphocyte # 1.28 X10^3/ul (0.83-4.51); Lymphocyte % 31.8 % (19-41); Mean Corp Hgb Conc 29.2 g/dL (32-36); Mean Corpuscular Hgb 26.1 pg (27.0-32.0); Mean Corpuscular Volume 89.4 fL (81-99); Mean Platelet Vol. 10.2 fl (6.2-12.0); Monocyte# 0.44 X10^3/uL; Monocyte% 10.9 % (0-10); NRBC Flagged by Analyzer 0 % (0-5); Neutrophil # 2.13 X10^3/uL (2.7-7.7); Neutrophil % 52.9 % (47-70); Platelet Count 210 K/mm3 (150-450); RBC Distribution Width SD 45.8 fl (35.1-43.9); Red Blood Count 3.79 M/mm3 (4.2-5.4)
[2020-10-25 05:55] LABS: Anion Gap 2 (5-15); BUN 20 mg/dL (7-18); BUN/Creat Ratio 31.4 RATIO (10-20); Calcium,Total 8.1 mg/dL (8.5-10.1); Chloride 111 mmol/L (98-107); Creatinine, Serum 0.64 mg/dL (0.55-1.02); EST Glomerular Filtration Rate 97 mL/min (>60); Est Glom Filt Rate - Afr Amer 117 mL/min (>60); Estimated Creatinine Clearance 44.41 ml/min; Glucose 90 mg/dL (74-106); Potassium 4.5 mmol/L (3.5-5.1); Sodium Level 140 mmol/L (136-145)
--- NOTE | 2020-10-25 07:39 | PN.HOSP_ITS ---
Objective Data Objective Data Vital Signs: Vital Signs Temp Pulse Resp BP Pulse Ox 97.9 F 66 16 110/49 L 95 10/25/20 01:58 10/25/20 01:58 10/25/20 01:58 10/25/20 01:58 10/25/20 01:58 Oxygen Delivery Method Room Air Weight: 302 lb 0.003 oz Body Mass Index (BMI) 50.2 Intake & Output: Intake and Output for Last 24 Hours 10/23/20 10/24/20 10/25/20 23:59 23:59 23:59 Intake Total 1520 / 1520 3250.00 / 3250.00 1120 / 1120 Output Total 600 / 600 1050 / 1050 500 / 500 Balance 920 / 920 2200.00 / 2200.00 620 / 620 Lab / Micro Data Result Diagrams: 10/25/20 05:00 10/25/20 05:00 Labs: Laboratory Results - last 24 hr 10/25/20 10/25/20 05:00 05:00 WBC 4.0 L RBC 3.79 L Hgb 9.9 L Hct 33.9 L MCV 89.4 MCH 26.1 L MCHC 29.2 L RDW Std Deviation 45.8 H RDW Coeff of Chani 14.0 Plt Count 210 MPV 10.2 Immature Gran % (Auto) 0.700 Neut % (Auto) 52.9 Lymph % (Auto) 31.8 [place] % (Auto) 10.9 H Eos % (Auto) 3.0 Baso % (Auto) 0.7 Absolute Neuts (auto) 2.1 Absolute Lymphs (auto) 1.28 Nucleated RBC % 0 Sodium 140 Potassium 4.5 Chloride 111 H Carbon Dioxide 27.0 Anion Gap 2 L BUN 20 H Creatinine 0.64 Estim Creat Clear Calc 44.41 Est GFR (MDRD) Af Amer 117 Est GFR (MDRD) Non-Af 97 BUN/Creatinine Ratio 31.4 H Glucose 90 Calcium 8.1 L Micro: Microbiology 10/23/20 12:15 Urine, Catheterized Urine Culture - Preliminary Presumptive E. coli Physical Exam Narrative General: Alert, Oriented x3, Cooperative HEENT: Atraumatic, PERRLA, EOMI, Normocephalic Oral: No Gingival or Mucosal Lesions/ Ulcerations Neck: Supple, No JVD, Negative Carotid Bruits Lungs: Air entry diminished in bilateral lung bases. No crepitation/rhonchi Cardiovascular: Regular rate, Regular Rhythm, Normal S1, Normal S2, No murmurs Abdomen: Bowel Sounds Present, Soft, Non Tender, Non-Distended : M[place]racken-colored urine due to Pyridium. No renal angle tenderness. No suprapubic tenderness. Extremities: Bilateral leg edema, Capillary Refill Less than 3 Seconds Skin: No rashes, No breakdown Musculoskeletal: No Tenderness to Palpation of Joints or Extremities Neurological: Cranial nerves II-XII grossly intact, Deep Tendon Reflexes 2+/4 and Symmetrical, Neuro grossly intact Psych/Mental Status: Normal Affect, Appropriate. Assessment & Plan Assessment/Plan (1) Acute UTI: Status: Acute Code(s): N39.0 - Urinary tract infection, site not specified (2) Cystitis: Status: Acute Code(s): N30.90 - Cystitis, unspecified without hematuria (3) HTN (hypertension): Status: Chronic Code(s): I10 - Essential (primary) hypertension (4) HLD (hyperlipidemia): Status: Chronic Code(s): E78.5 - Hyperlipidemia, unspecified (5) GERD (gastroesophageal reflux disease): Status: Chronic Code(s): K21.9 - Gastro-esophageal reflux disease without esophagitis Plan: Patient is a 75-year-old lady with history of recurrent UTIs, about 4 times in a year with history of multiple antibiotics in past with multidrug resistance organisms is being admitted with burning micturition, increased frequency and urgency and UA consistent with complicated cystitis/UTI 1. Acute complicated cystitis ?Patient has history of multidrug-resistant organism. She did grow Klebsiella pneumonia from her urine culture during her previous admission a month ago. Initially, patient was started on meropenem based on sensitivity from her previous admission. ID has been consulted. Urine is orange-colored due to Pyridium. Patient has Adler catheter insertion after admission. This time, urine culture shows E. coli, pansensitive, ESBL negative. IV antibiotic changed to cefazolin by ID. 2. Dyslipidemia -Patient is on statin therapy, continued at home dose 3. Morbid obesity - With a BMI of 50.3 patient was counseled on weight reduction. Patient has previous history of gastric bypass 4. Diabetes mellitus type 2 ?Apparently diet controlled 5. Anemia - Secondary to chronic disorder monitoring H&H and transfuse if patient becomes symptomatic or hemoglobin falls below 7 6. GERD ?Patient is on famotidine 7. History of previous DVT status post IVC filter ?Patient is on apixaban did continue 8. Chronic neuropathic pain ?Patient is on gabapentin 9. DVT prophylaxis ?On apixaban Microbiology Past 72 Hours 10/23/20 12:15 Urine, Catheterized Urine Culture - Preliminary Presumptive E. coli Laboratory Results 10/25/20 05:00: WBC 4.0 L, RBC 3.79 L, Hgb 9.9 L, Hct 33.9 L, MCV 89.4, MCH 26.1 L, MCHC 29.2 L, RDW Std Deviation 45.8 H, RDW Coeff of Chani 14.0, Plt Count 210, MPV 10.2, Immature Gran % (Auto) 0.700, Neut % (Auto) 52.9, Lymph % (Auto) 31.8, [place] % (Auto) 10.9 H, Eos % (Auto) 3.0, Baso % (Auto) 0.7, Absolute Neuts (auto) 2.1, Absolute Lymphs (auto) 1.28, Nucleated RBC % 0 10/25/20 05:00: Sodium 140, Potassium 4.5, Chloride 111 H, Carbon Dioxide 27.0, Anion Gap 2 L, BUN 20 H, Creatinine 0.64, Estim Creat Clear Calc 44.41, Est GFR (MDRD) Af Amer 117, Est GFR (MDRD) Non-Af 97, BUN/Creatinine Ratio 31.4 H, Glucose 90, Calcium 8.1 L Visit Charges Inpatient E&M: 29874 Subs Hosp L2
[2020-10-25 08:02] VITALS: O2SAT 95
[2020-10-25] MEDS: Fluticasone 0.05% 1 SPRAY NASAL.SRY 2 SPRAY NASAL (08:42)
[2020-10-25] MEDS: Menthol/Lanolin/Calamine/Znox 113 GM Tube 1 APPLIC TOPICAL ×2 (08:42→20:31)
[2020-10-25] MEDS: Famotidine 20 MG Tablet PO (08:43)
[2020-10-25] MEDS: Tolterodine Tartrate 2 MG CAP.SA PO (08:43)
[2020-10-25] MEDS: APIXABAN 5 MG TABLET PO ×2 (08:43→20:42)
[2020-10-25] MEDS: buPROPion (XL) 150 MG TABLET.XL PO (08:43)
[2020-10-25] MEDS: DULoxetine Hcl 60 MG Capsule PO (08:44)
[2020-10-25 09:12] VITALS: BP 102/53; PULSE 88; RESP 16; TEMP 36.9; O2SAT 94
[2020-10-25] MEDS: Ferrous Sulfate 325 MG Tablet PO (11:38)
[2020-10-25 11:57] VITALS: BP 99/45; PULSE 75; RESP 16; TEMP 36.5; O2SAT 95
[2020-10-25] MEDS: Cefazolin 1 GM/50 ML BAG IV ×2 (13:39→20:32)
[2020-10-25 14:44] VITALS: BP 92/54; PULSE 78; RESP 16; TEMP 36.4; O2SAT 93
--- NOTE | 2020-10-25 15:15 | CASEMGMT ---
Social Work Note Per neurosurgery physician questions, pt has completed HCPOA and LW and provided documents to [facility]. SW reviewed chart, pt only has HCPOA on file. SW printed off document and placed on pt's chart. SW in to speak with pt. SW updated pt that HCPOA is on file at [facility] but no LW. Pt states she hasn't completed LW and denied wanting information. Maria E Martinez CORE CARRIER, GEAR LAPPER
--- NOTE | 2020-10-25 16:33 | PCM.CONS.GEN ---
Assessment & Plan Assessment/Plan (1) UTI (urinary tract infection): PLAN: Recurrent uti, h/o XDR organisms. Now with relatively sensitive ecoli, will narrow abx to cefazolin, would be candidate for keflex at discharge which she has tolerated in the past. Discussed with her and her daughter the benefits of covid vaccine. Daughter is against it. Will follow, thank you HPI Consult Data Date of Consult: 10/25/20 HPI Narrative HPI Narrative: ADAM NIX, is a 75 F who presented from [facility] with several days lower abd pain, dysuria. Has h/o recurrent uti, has been on methenamine. Came to ED, admitted on meropenem, feeling better. No fever. Has not gotten covid shot, family is against it. Full ROS performed and neg except as noted above. [facility] Medical History Arthritis Arthritis Bilateral headaches Carpal tunnel syndrome Cataracts, both eyes Closed left arm fracture Diabetes DVT (deep venous thrombosis) FHx: cholecystectomy GI bleed Hearing loss, left Hearing loss, right Heart disease History of gallstones Hypertension Kidney stones Neuropathy Non-smoker Osteoarthritis Polycystic ovaries Pulmonary embolism Home Medications cholecalciferol (vitamin D3) [Vitamin D3] 1,000 unit PO DAILY 12/29/15 [History Last Taken 10/22/20] duloxetine 60 mg PO DAILY 12/29/15 [History Last Taken 10/22/20] pravastatin 40 mg PO QHS 08/05/18 [History Last Taken 10/22/20] fluticasone propionate 2 spray NASAL DAILY 03/18/19 [History Last Taken 10/22/20] furosemide 60 mg PO DAILY 03/18/19 [History Last Taken 10/22/20] primidone 50 mg PO TID 03/18/19 [History Last Taken 10/22/20] simethicone 80 mg PO TIDCM 03/18/19 [History Last Taken 10/22/20] mirabegron 50 mg PO QHS 01/24/20 [History Last Taken 10/22/20] famotidine 20 mg PO DAILY 03/23/20 [History Last Taken 10/22/20] gabapentin 400 mg PO TID 07/09/20 [History Last Taken 10/22/20] divalproex 500 mg PO BID #0 07/11/20 [Rx Last Taken 10/22/20] D-Mannose 1,000 mg PO BID 08/09/20 [History Last Taken 10/22/20] bupropion HCl 150 mg PO DAILY 08/09/20 [History Last Taken 10/22/20] alum-mag hydroxide-simeth 30 ml PO Q4H PRN PRN 08/20/20 [History Last Taken 10/22/20] oxybutynin chloride 10 mg PO DAILY 08/20/20 [History Last Taken 10/22/20] albuterol sulfate 2.5 mg INHALATION Q2H PRN PRN vial.neb. 08/22/20 [Rx Last Taken Unknown] acetaminophen 500 - 1,000 mg PO Q6H PRN PRN 09/28/20 [History Last Taken 10/22/20] ascorbic acid (vitamin C) 500 mg PO DAILY 09/28/20 [History Last Taken 10/22/20] oxycodone 5 mg PO Q4H PRN 09/28/20 [History Last Taken 10/22/20] apixaban 5 mg PO BID #60 tablet 10/02/20 [Rx Last Taken 10/22/20] methenamine hippurate 1 gm PO BID #180 tablet 10/02/20 [Rx Last Taken 10/22/20] cyanocobalamin (vitamin B-12) [Cyanacobalamin] 1,000 mcg IM QMONTH 10/23/20 [History Last Taken 10/22/20] ferrous sulfate 325 mg PO DAILY 10/23/20 [History Last Taken 10/22/20] primidone 100 mg PO DAILY 10/23/20 [History Last Taken 10/22/20] Allergy/AdvReac Type Severity Reaction Status Date / Time ampicillin [From Unasyn] Allergy Severe Other Verified 09/28/20 13:32 warfarin sodium Allergy Severe Low red Verified 09/28/20 13:32 [From Coumadin] blood cells Family History (Updated 10/23/20 @ 16:54 by Manda Linares) Father Colon cancer Hypertension Mother Hypertension Surgical History (Updated 10/23/20 @ 16:52 by Manda Linares) History of carpal tunnel surgery History of cholecystectomy History of embolic filter insertion History of hysterectomy Total knee replacement status Social History Smoking Status: Never smoker alcohol intake: current alcohol intake frequency: holidays/special occasions only substance use type: does not use what type of physical activity do you participate in: walking and aerobics frequency: 1-2 times per week Physical Exam Const alert, oriented x3 and no apparent distress General Appearance: cooperative HEENT normocephalic and head/scalp atraumatic Eyes PERRL and EOMs intact bilaterally Neck supple and No nodes Resp clear to auscultation bilaterally Cardio regular rate and regular rhythm GI normal to inspection, nondistended, normoactive bowel sounds Extremity General Extremity: edema Skin no rashes or lesions noted Neuro CN's II-XII intact bilaterally Lab / Micro Data Result Diagrams: 10/25/20 05:00 10/25/20 05:00 Labs: Laboratory Results - last 24 hr 10/25/20 10/25/20 05:00 05:00 WBC 4.0 L RBC 3.79 L Hgb 9.9 L Hct 33.9 L MCV 89.4 MCH 26.1 L MCHC 29.2 L RDW Std Deviation 45.8 H RDW Coeff of Chani 14.0 Plt Count 210 MPV 10.2 Immature Gran % (Auto) 0.700 Neut % (Auto) 52.9 Lymph % (Auto) 31.8 [place] % (Auto) 10.9 H Eos % (Auto) 3.0 Baso % (Auto) 0.7 Absolute Neuts (auto) 2.1 Absolute Lymphs (auto) 1.28 Nucleated RBC % 0 Sodium 140 Potassium 4.5 Chloride 111 H Carbon Dioxide 27.0 Anion Gap 2 L BUN 20 H Creatinine 0.64 Estim Creat Clear Calc 44.41 Est GFR (MDRD) Af Amer 117 Est GFR (MDRD) Non-Af 97 BUN/Creatinine Ratio 31.4 H Glucose 90 Calcium 8.1 L Micro: Microbiology 10/23/20 12:15 Urine Culture - Preliminary Urine, Catheterized Presumptive E. coli
[2020-10-25 20:30] VITALS: BP 98/60; PULSE 80; RESP 18; TEMP 36.5; O2SAT 94
[2020-10-25] MEDS: 0.9% Saline Lock 10 ML Syringe IV (20:37)
[2020-10-25] MEDS: Mirabegron 50 MG TAB.ER.24H PO (20:42)
[2020-10-25] MEDS: Pravastatin 40 MG Tablet PO (20:42)
[2020-10-26] MEDS: oxyCODONE 5 MG Tablet 10 MG PO ×2 (04:53→12:14)
[2020-10-26] MEDS: Cefazolin 1 GM/50 ML BAG IV (05:04)
[2020-10-26] MEDS: Gabapentin 400 MG Capsule PO ×2 (05:05→14:41)
[2020-10-26] MEDS: Primidone 50 MG Tablet PO ×2 (05:05→14:40)
[2020-10-26] MEDS: 0.9% Saline Lock 10 ML Syringe IV (05:05)
[2020-10-26 05:06] VITALS: BP 127/83; PULSE 72; RESP 18; TEMP 37; O2SAT 95
[2020-10-26 06:13] LABS: Absolute Lymphocyte Count 1.47 X10^3/uL (0.83-4.51); Basophil# 0.03 X10^3/uL; Basophil% 0.7 % (0-1); Eosinophil# 0.12 X10^3/uL; Eosinophils% 2.9 % (0-5); Hematocrit 32.1 % (37-47); Hemoglobin 9.5 g/dL (12.0-15.0); Lymphocyte # 1.47 X10^3/ul (0.83-4.51); Lymphocyte % 35.9 % (19-41); Mean Corp Hgb Conc 29.6 g/dL (32-36); Mean Corpuscular Hgb 26.3 pg (27.0-32.0); Mean Corpuscular Volume 88.9 fL (81-99); Mean Platelet Vol. 10.1 fl (6.2-12.0); Monocyte# 0.43 X10^3/uL; Monocyte% 10.5 % (0-10); NRBC Flagged by Analyzer 0 % (0-5); Neutrophil # 2.02 X10^3/uL (2.7-7.7); Neutrophil % 49.5 % (47-70); Platelet Count 202 K/mm3 (150-450); RBC Distribution Width CV 14.1 % (11.6-14.6); RBC Distribution Width SD 45.3 fl (35.1-43.9); Red Blood Count 3.61 M/mm3 (4.2-5.4); White Blood Count 4.1 K/mm3 (4.4-11.0)
[2020-10-26 06:46] LABS: Anion Gap 3 (5-15); BUN 18 mg/dL (7-18); BUN/Creat Ratio 26.9 RATIO (10-20); Calcium,Total 8.1 mg/dL (8.5-10.1); Chloride 109 mmol/L (98-107); Creatinine, Serum 0.67 mg/dL (0.55-1.02); EST Glomerular Filtration Rate 92 mL/min (>60); Est Glom Filt Rate - Afr Amer 111 mL/min (>60); Estimated Creatinine Clearance 44.41 ml/min; Glucose 81 mg/dL (74-106); Potassium 4.4 mmol/L (3.5-5.1); Sodium Level 137 mmol/L (136-145)
[2020-10-26 08:30] VITALS: BP 111/48; PULSE 74; RESP 18; TEMP 36.4; O2SAT 96
[2020-10-26] MEDS: Menthol/Lanolin/Calamine/Znox 113 GM Tube 1 APPLIC TOPICAL (09:27)
[2020-10-26] MEDS: Tolterodine Tartrate 2 MG CAP.SA PO (09:27)
[2020-10-26] MEDS: APIXABAN 5 MG TABLET PO (09:27)
[2020-10-26] MEDS: buPROPion (XL) 150 MG TABLET.XL PO (09:27)
[2020-10-26] MEDS: DULoxetine Hcl 60 MG Capsule PO (09:27)
[2020-10-26] MEDS: Famotidine 20 MG Tablet PO (09:27)
[2020-10-26] MEDS: Fluticasone 0.05% 1 SPRAY NASAL.SRY 2 SPRAY NASAL (09:28)
--- NOTE | 2020-10-26 09:30 | NURSING ---
Patients daughter called in to speak with Doctor Channing. Phone number given to doctor.
--- NOTE | 2020-10-26 09:42 | PCM.TXEXTCAR ---
Diet 10/23/20 17:40 Diet: Regular - General Food consistency:: Regular Liquid Consistency:: Regular/Thin Routine Orders/Code Status Suppository Type: Dulcolax 10mg Suppository Frequency: Daily PRN Code Status: DNC-A Problem/Diagnosis (1) UTI (urinary tract infection): Status: Chronic Allergies/Procedures Done in Hospital Allergies ampicillin [From Unasyn] Allergy (Severe, Verified 09/28/20 13:32) Other Blisters on tongue /throat difficulty breathing sore tongue/throat warfarin sodium [From Coumadin] Allergy (Severe, Verified 09/28/20 13:32) Low red blood cells Dietary and Speech Recommendations Dietitian Recommendations/Changes: continue regular diet as tolerated. Discharge Plan Admission Admit Date/Time: 10/23/20 16:25 Attending Provider: Javier Snell Primary Care Provider: Gonzales Pinto Consulting Providers: Freddy Varner Discharge Orders/Prescriptions Prescriptions: No Action cholecalciferol (vitamin D3) [Vitamin D3] 1,000 UNIT tablet 1,000 unit PO DAILY RF: 0 duloxetine 60 MG capsule 60 mg PO DAILY RF: 0 pravastatin 40 MG tablet 40 mg PO QHS RF: 0 furosemide 40 MG tablet 60 mg PO DAILY RF: 0 primidone 50 MG tablet 50 mg PO TID RF: 0 fluticasone propionate 1 SPRAY spray,suspension 2 spray NASAL DAILY RF: 0 simethicone 80 MG tablet 80 mg PO TIDCM RF: 0 mirabegron 50 MG tablet extended release 24 hr 50 mg PO QHS RF: 0 famotidine 20 MG tablet 20 mg PO DAILY RF: 0 gabapentin 400 MG capsule 400 mg PO TID RF: 0 divalproex 500 MG tablet,delayed release (DR/EC) 500 mg PO BID Qty: 0 RF: 0 bupropion HCl 150 MG tablet extended release 24 hr 150 mg PO DAILY RF: 0 D-Mannose 1,000 mg PO BID RF: 0 alum-mag hydroxide-simeth 355 ML suspension 30 ml PO Q4H PRN PRN (Reason: GI DISTRESS) RF: 0 oxybutynin chloride 10 MG tablet extended release 24hr 10 mg PO DAILY RF: 0 albuterol sulfate 2.5 MG/3 ML solution for nebulization 2.5 mg INHALATION Q2H PRN PRN (Reason: Dyspnea, wheezing) RF: 0 oxycodone 5 MG tablet 5 mg PO Q4H PRN (Reason: Pain Score 1-10) RF: 0 ascorbic acid (vitamin C) 500 MG tablet 500 mg PO DAILY RF: 0 acetaminophen 500 MG tablet 500 - 1,000 mg PO Q6H PRN PRN (Reason: Pain Score 1-10) RF: 0 methenamine hippurate 1 GM tablet 1 gm PO BID Qty: 180 RF: 1 apixaban 5 MG tablet 5 mg PO BID Qty: 60 RF: 0 primidone 50 mg Tablet 100 mg PO DAILY RF: 0 cyanocobalamin (vitamin B-12) [Cyanacobalamin] 1,000 mcg/mL Solution 1,000 mcg IM QMONTH RF: 0 ferrous sulfate 325 mg (65 mg iron) Tablet 325 mg PO DAILY RF: 0 Referrals / Follow Up: Gonzales Pinto MD [Primary Care Provider] -
--- NOTE | 2020-10-26 09:46 | PCM.DC ---
Discharge Instructions Diet Discharge Diet: 2000 mg Sodium Diet Activity Discharge Activity: May Not Drive Weight Bearing Status: Weight bearing as tolerated Dressing / Incision Call your doctor if you observe: Fever of 101 or Higher, Numbness or Tingling, Change in Color, Inability to urinate, Inability to have a bowel movement, Using more than one pad per hour, Shortness of breath, Dizziness, Fainting spells, Swelling in the ankles, Chest pain, Prolonged hiccupping, Increased palpitations (irregular heartbeat) and Uncontrolled pain Discharge Plan Admission Admit Date/Time: 10/23/20 16:25 Primary Reason for Your Visit: E. coli UTI Attending Provider: Javier Snell Primary Care Provider: Gonzales Pinto Consulting Providers: Freddy Varner Discharge Orders/Prescriptions Prescriptions: New cephalexin 500 mg tablet 500 mg PO TID Qty: 10 RF: 0 Continued cholecalciferol (vitamin D3) [Vitamin D3] 1,000 UNIT tablet 1,000 unit PO DAILY RF: 0 duloxetine 60 MG capsule 60 mg PO DAILY RF: 0 pravastatin 40 MG tablet 40 mg PO QHS RF: 0 primidone 50 MG tablet 50 mg PO TID RF: 0 fluticasone propionate 1 SPRAY spray,suspension 2 spray NASAL DAILY RF: 0 simethicone 80 MG tablet 80 mg PO TIDCM RF: 0 mirabegron 50 MG tablet extended release 24 hr 50 mg PO QHS RF: 0 famotidine 20 MG tablet 20 mg PO DAILY RF: 0 gabapentin 400 MG capsule 400 mg PO TID RF: 0 divalproex 500 MG tablet,delayed release (DR/EC) 500 mg PO BID Qty: 0 RF: 0 bupropion HCl 150 MG tablet extended release 24 hr 150 mg PO DAILY RF: 0 alum-mag hydroxide-simeth 355 ML suspension 30 ml PO Q4H PRN PRN (Reason: GI DISTRESS) RF: 0 oxybutynin chloride 10 MG tablet extended release 24hr 10 mg PO DAILY RF: 0 albuterol sulfate 2.5 MG/3 ML solution for nebulization 2.5 mg INHALATION Q2H PRN PRN (Reason: Dyspnea, wheezing) RF: 0 oxycodone 5 MG tablet 5 mg PO Q4H PRN (Reason: Pain Score 1-10) RF: 0 ascorbic acid (vitamin C) 500 MG tablet 500 mg PO DAILY RF: 0 acetaminophen 500 MG tablet 500 - 1,000 mg PO Q6H PRN PRN (Reason: Pain Score 1-10) RF: 0 methenamine hippurate 1 GM tablet 1 gm PO BID Qty: 180 RF: 1 apixaban 5 MG tablet 5 mg PO BID Qty: 60 RF: 0 primidone 50 mg Tablet 100 mg PO DAILY RF: 0 cyanocobalamin (vitamin B-12) 1,000 mcg/mL Solution 1,000 mcg IM QMONTH RF: 0 ferrous sulfate 325 mg (65 mg iron) Tablet 325 mg PO DAILY RF: 0 furosemide 40 MG tablet 60 mg PO DAILY Qty: 0 RF: 0 Discontinued D-Mannose 1,000 mg PO BID RF: 0 Referrals / Follow Up: Gonzales Pinto MD [Primary Care Provider] - Disposition Disposition (needs filled in before D/C Order can be placed): Assisted Living
--- NOTE | 2020-10-26 09:59 | CASEMGMT ---
Addendum entered by Maria E Martinez 10/26/20 10:45: RUKHSANA reviewed PT. Pt walked 40ft x2 stand by assist. RUKHSANA placed a call to Wallace at [facility] and left message that pt should be returning to [facility] today as long as pt is able to void on own. RUKHSANA faxed updated clinicals to [facility]. Original Note: Social Work Note Pt is able to discharge on oral antibiotics. RUKHSANA received message that pt's daughter Guera ([phone] ext: [phone]) would like to be called. RUKHSANA placed a call to pt's daughter Guera. Guera states she has concerns with pt discharging as pt has had a catheter in and is just now getting it out and pt has been laying in bed and not moving well. Guera states she wants to make sure pt is able to pee and walk before pt discharges back to [facility]. RUKHSANA informed pt that it is likely the physician will want to make sure pt is able to void on her own as well before pt is able to discharge and also updated Guera that pt did work with OT yesterday (was min assist, walked 12ft) but pt refused PT today. Guera states she thinks pt refused PT because she had the catheter in and it was causing her to be uncomfortable. RUKHSANA informed Guera that pt did mention to PT that her only concern this morning was getting her catheter out. Guera states pt needs to work with PT. Guera states I am the POA and pt needs to work with PT. RUKHSANA informed Guera that she may be POA but pt is own person and able to make own decisions and if pt continues to refuse therapy, she is able to do that. Guera states she will be calling pt to make sure she works with PT. RUKHSANA informed Guera that pt is wanting to return to [facility] at discharge. Guera states that she is fine with pt returning to [facility] as long as pt is able to void on her own and walk. RUKHSANA informed Guera that this worker will call PT to have them see pt once catheter is removed. Guera states understanding. RUKHSANA spoke with physician and updated physician that pt's daughter is fine with pt returning to [facility] as long as pt is able to void on own and able to walk with PT. SW did update physician that pt did walk with OT yesterday. SW spoke with OT to update PT that pt will need to be seen once catheter is out. Plan: Return to [facility] if pt is able to void on own and able to walk with PT today Maria E Martinez ACTUARIAL SCIENCE PROFESSOR, COMMODITY SUPERVISOR
--- NOTE | 2020-10-26 10:01 | PCM.DC.SUM ---
Providers Date of Admission: 10/23/20 Primary Care Physician: Dr. Gonzales Pinto MD Consultations 10/25/20 12:09 Consult: Infectious Disease Routine Consulting Provider: Freddy Varner Reason for Consult: ESBL, +e. coli and reoccuring UTI EMERGENT Consult: No MD Notified: Yes Date Notified:: 10/25/20 Time Notified: 12:09 Method of Notification: Answering Service Reason For Visit: ACUTE CYSTITIS Diagnosis Discharge Diagnosis (1) UTI (urinary tract infection): Status: Chronic Code(s): N39.0 - Urinary tract infection, site not specified Medications at Discharge Home Medications cholecalciferol (vitamin D3) [Vitamin D3] 1,000 unit PO DAILY 12/29/15 duloxetine 60 mg PO DAILY 12/29/15 pravastatin 40 mg PO QHS 08/05/18 fluticasone propionate 2 spray NASAL DAILY 03/18/19 primidone 50 mg PO TID 03/18/19 simethicone 80 mg PO TIDCM 03/18/19 mirabegron 50 mg PO QHS 01/24/20 famotidine 20 mg PO DAILY 03/23/20 gabapentin 400 mg PO TID 07/09/20 divalproex 500 mg PO BID #0 07/11/20 bupropion HCl 150 mg PO DAILY 08/09/20 alum-mag hydroxide-simeth 30 ml PO Q4H PRN PRN 08/20/20 oxybutynin chloride 10 mg PO DAILY 08/20/20 albuterol sulfate 2.5 mg INHALATION Q2H PRN PRN vial.neb. 08/22/20 acetaminophen 500 - 1,000 mg PO Q6H PRN PRN 09/28/20 ascorbic acid (vitamin C) 500 mg PO DAILY 09/28/20 oxycodone 5 mg PO Q4H PRN 09/28/20 apixaban 5 mg PO BID #60 tablet 10/02/20 methenamine hippurate 1 gm PO BID #180 tablet 10/02/20 cyanocobalamin (vitamin B-12) 1,000 mcg IM QMONTH 10/23/20 ferrous sulfate 325 mg PO DAILY 10/23/20 primidone 100 mg PO DAILY 10/23/20 cephalexin 500 mg PO TID #10 tab 10/26/20 furosemide 60 mg PO DAILY #0 tab 10/26/20 Hospital Course Summary of Care Provided Hospital Course: Patient is a 75-year-old lady with history of recurrent UTIs, about 4 times in a year with history of multiple antibiotics in past with multidrug resistance organisms is being admitted with burning micturition, increased frequency and urgency and UA consistent with complicated cystitis/UTI 1. Acute complicated cystitis ?Patient has history of multidrug-resistant organism. She did grow Klebsiella pneumonia from her urine culture during her previous admission a month ago. Initially, patient was started on meropenem based on sensitivity from her previous admission. ID has been consulted. Urine is orange-colored due to Pyridium. Patient has Adler catheter insertion after admission. This time, urine culture shows E. coli, pansensitive, ESBL negative. IV antibiotic changed to cefazolin by ID. Adler catheter discontinued patient voided to urinate spontaneously. Discussed with ID and recommended 5 more days of Keflex prescription given, 500 mg 3 times daily; total 15 tablets. Discussed with the retail pharmacist. 2. Dyslipidemia -Patient is on statin therapy, continued at home dose 3. Morbid obesity - With a BMI of 50.3 patient was counseled on weight reduction. Patient has previous history of gastric bypass 4. Diabetes mellitus type 2 ?Apparently diet controlled 5. Anemia - Secondary to chronic disorder monitoring H&H and transfuse if patient becomes symptomatic or hemoglobin falls below 7 6. GERD ?Patient is on famotidine 7. History of previous DVT status post IVC filter ?Patient is on apixaban did continue 8. Chronic neuropathic pain ?Patient is on gabapentin 9. DVT prophylaxis ?On apixaban Discharge medication reconciliation done. Discharge follow-up instructions completed. Discharge process discussed with the patient and all questions were answered to patient's satisfaction. Patient able to walk on nursing station. Discussed with the patient's daughter, Mrs. Guera Bonds and gave the hospital update, diagnosis E. coli UTI and removal of Adler catheter. Total time spent, exact 35 minutes on discharge meds reconciliation, examination, coordination of care with nurses and ancillary staff, review of imaging and blood test and discussion with the patient on follow-up instructions Physical Exam Narrative General: Alert, Oriented x3, Cooperative HEENT: Atraumatic, PERRLA, EOMI, Normocephalic Oral: No Gingival or Mucosal Lesions/ Ulcerations Neck: Supple, No JVD, Negative Carotid Bruits Lungs: Air entry diminished in bilateral lung bases. No crepitation/rhonchi Cardiovascular: Regular rate, Regular Rhythm, Normal S1, Normal S2, No murmurs Abdomen: Bowel Sounds Present, Soft, Non Tender, Non-Distended : [place]-colored urine due to Pyridium. Adler catheter removed. Patient is spontaneously voiding. No renal angle tenderness. No suprapubic tenderness. Extremities: Bilateral leg edema, Capillary Refill Less than 3 Seconds Skin: No rashes, No breakdown Musculoskeletal: No Tenderness to Palpation of Joints or Extremities Neurological: Cranial nerves II-XII grossly intact, Deep Tendon Reflexes 2+/4 and Symmetrical, Neuro grossly intact Psych/Mental Status: Normal Affect, Appropriate. ABG / Lab / Microbiology Data Result Diagrams: 10/26/20 05:45 10/26/20 05:45 Laboratory: Laboratory Results - last 24 hr 10/26/20 10/26/20 05:45 05:45 WBC 4.1 L RBC 3.61 L Hgb 9.5 L Hct 32.1 L MCV 88.9 MCH 26.3 L MCHC 29.6 L RDW Std Deviation 45.3 H RDW Coeff of Chani 14.1 Plt Count 202 MPV 10.1 Immature Gran % (Auto) 0.500 Neut % (Auto) 49.5 Lymph % (Auto) 35.9 [place] % (Auto) 10.5 H Eos % (Auto) 2.9 Baso % (Auto) 0.7 Absolute Neuts (auto) 2.0 Absolute Lymphs (auto) 1.47 Nucleated RBC % 0 Sodium 137 Potassium 4.4 Chloride 109 H Carbon Dioxide 25.0 Anion Gap 3 L BUN 18 Creatinine 0.67 Estim Creat Clear Calc 44.41 Est GFR (MDRD) Af Amer 111 Est GFR (MDRD) Non-Af 92 BUN/Creatinine Ratio 26.9 H Glucose 81 Calcium 8.1 L Microbiology: Microbiology 10/23/20 12:15 Urine Culture - Preliminary Urine, Catheterized Presumptive E. coli GNR lactose hearing and speech assistant 10/23/20 16:48 Blood Culture - Preliminary Blood Culture (Wb) - Left Hand No growth in 48 hours. 10/23/20 16:40 Blood Culture - Preliminary Blood Culture (Wb) - Anticubital Right No growth in 48 hours. Microbiology 10/23/20 12:15 Urine, Catheterized Urine Culture - Preliminary Presumptive E. coli GNR lactose hearing and speech assistant 10/23/20 16:48 Blood Culture (Wb) - Left Hand Blood Culture - Preliminary No growth in 48 hours. 10/23/20 16:40 Blood Culture (Wb) - Anticubital Right Blood Culture - Preliminary No growth in 48 hours. D/C Instructions Discharge Diet: 2000 mg Sodium Diet Discharge Activity: May Not Drive Weight Bearing Status: Weight bearing as tolerated Call your doctor if you observe: Fever of 101 or Higher, Numbness or Tingling, Change in Color, Inability to urinate, Inability to have a bowel movement, Using more than one pad per hour, Shortness of breath, Dizziness, Fainting spells, Swelling in the ankles, Chest pain, Prolonged hiccupping, Increased palpitations (irregular heartbeat) and Uncontrolled pain Meaningful Use Info Meaningful Use Diagnoses (Choose all that apply): None applicable Discharge Plan Admission Admit Date/Time: 10/23/20 16:25 Primary Reason for Your Visit: E. coli UTI Attending Provider: Javier Snell Primary Care Provider: Gonzales Pinto Consulting Providers: Freddy Varner Discharge Orders/Prescriptions Prescriptions: New cephalexin 500 mg tablet 500 mg PO TID Qty: 10 RF: 0 Continued cholecalciferol (vitamin D3) [Vitamin D3] 1,000 UNIT tablet 1,000 unit PO DAILY RF: 0 duloxetine 60 MG capsule 60 mg PO DAILY RF: 0 pravastatin 40 MG tablet 40 mg PO QHS RF: 0 primidone 50 MG tablet 50 mg PO TID RF: 0 fluticasone propionate 1 SPRAY spray,suspension 2 spray NASAL DAILY RF: 0 simethicone 80 MG tablet 80 mg PO TIDCM RF: 0 mirabegron 50 MG tablet extended release 24 hr 50 mg PO QHS RF: 0 famotidine 20 MG tablet 20 mg PO DAILY RF: 0 gabapentin 400 MG capsule 400 mg PO TID RF: 0 divalproex 500 MG tablet,delayed release (DR/EC) 500 mg PO BID Qty: 0 RF: 0 bupropion HCl 150 MG tablet extended release 24 hr 150 mg PO DAILY RF: 0 alum-mag hydroxide-simeth 355 ML suspension 30 ml PO Q4H PRN PRN (Reason: GI DISTRESS) RF: 0 oxybutynin chloride 10 MG tablet extended release 24hr 10 mg PO DAILY RF: 0 albuterol sulfate 2.5 MG/3 ML solution for nebulization 2.5 mg INHALATION Q2H PRN PRN (Reason: Dyspnea, wheezing) RF: 0 oxycodone 5 MG tablet 5 mg PO Q4H PRN (Reason: Pain Score 1-10) RF: 0 ascorbic acid (vitamin C) 500 MG tablet 500 mg PO DAILY RF: 0 acetaminophen 500 MG tablet 500 - 1,000 mg PO Q6H PRN PRN (Reason: Pain Score 1-10) RF: 0 methenamine hippurate 1 GM tablet 1 gm PO BID Qty: 180 RF: 1 apixaban 5 MG tablet 5 mg PO BID Qty: 60 RF: 0 primidone 50 mg Tablet 100 mg PO DAILY RF: 0 cyanocobalamin (vitamin B-12) 1,000 mcg/mL Solution 1,000 mcg IM QMONTH RF: 0 ferrous sulfate 325 mg (65 mg iron) Tablet 325 mg PO DAILY RF: 0 furosemide 40 MG tablet 60 mg PO DAILY Qty: 0 RF: 0 Discontinued D-Mannose 1,000 mg PO BID RF: 0 Referrals / Follow Up: Gonzales Pinto MD [Primary Care Provider] - Disposition Disposition (needs filled in before D/C Order can be placed): Assisted Living Visit Charges Inpatient E&M: 50918 Disch Hosp
[2020-10-26] MEDS: Ferrous Sulfate 325 MG Tablet PO (12:14)
--- NOTE | 2020-10-26 14:00 | CASEMGMT ---
Addendum entered by Maria E Martinez 10/26/20 15:40: RUKHSANA faxed COVID test and tool to Wallace at [facility]. RUKHSANA spoke with RN, pt will need a wide wheelchair. SW accessed trip assist and arranged transportation via wheelchair van for 4:30pm. SW updated pt. SW updated pt that this worker will call her daughter Guera to update, pt states understanding. RUKHSANA updated RN on transportation time. RUKHSANA placed a call to Wallace at [facility] and updated him that COVID test was faxed and updated him on transportation time. Wallace states understanding. RUKHSANA placed a call to pt's daughter Guera and updated her on transportation time. Guera states understanding. RUKHSANA received call from pt's CM Brook Schwarz at [facility]. RUKHSANA updated Brook on pt discharging back to [facility] today. Brook asked for discharge paperwork to be faxed to her. RUKHSANA faxed discharge paperwork to Brook Schwarz. Plan: [facility] today with Physician's transporting via wheelchair van at 4:30pm Maria E ZAMORA, SR RISK MANAGEMENT CONSULTANT Original Note: Social Work Note RN updated this worker that pt has voided multiple times on her own today. Since pt has voided by herself and is able to walk stand by assist, pt is able to discharge back to [facility]. RUKHSANA placed a call to pt's daughter Guera and updated her that pt has been voided and pt walked with therapy. Pt will discharge back to [facility] today. Guera states understading, agreeable to plan. Guera would like to be updated on transportation time. RUKHSANA faxed discharge paperwork to Wallace at [facility]. RUKHSANA placed a call to Wallace at [facility] and left message asking if he needed pt to have a COVID test. RUKHSANA waiting for call back. RUKHSANA then received message from Wallace at [facility] stating pt will need a COVID test to return. RUKHSANA updated charge nurse. Plan: Return to [facility] today Maria E ZAMORA, SR RISK MANAGEMENT CONSULTANT
[2020-10-26 14:42] VITALS: BP 112/53; PULSE 82; RESP 18; TEMP 36.2; O2SAT 95
--- NOTE | 2020-10-26 16:53 | NURSING ---
Transport is here to pick pt up at this time to bring to [facility].
== END 2020-10-26 16:57 | disposition home or self-care (01) | DRG 690 ==
LOC: ED 15:33 → MS3 16:44
PROVIDERS: Admitting Provider Internal Medicine; Emergency Provider Emergency Medicine; PCP Family Medicine; Visit Provider Internal Medicine
DX: N30.00 Acute cystitis without hematuria (principal); Z68.43 Body mass index [BMI] 50.0-59.9, adult; Z16.24 Resistance to multiple antibiotics; B96.20 Unspecified Escherichia coli [E. coli] as the cause of diseases classified elsewhere; E11.40 Type 2 diabetes mellitus with diabetic neuropathy, unspecified; G89.29 Other chronic pain; E78.00 Pure hypercholesterolemia, unspecified; D63.8 Anemia in other chronic diseases classified elsewhere; K21.9 Gastro-esophageal reflux disease without esophagitis; H91.93 Unspecified hearing loss, bilateral; E66.01 Morbid (severe) obesity due to excess calories; Z95.828 Presence of other vascular implants and grafts; Z79.01 Long term (current) use of anticoagulants; Z79.899 Other long term (current) drug therapy; Z87.440 Personal history of urinary (tract) infections; Z86.718 Personal history of other venous thrombosis and embolism
CPT/HCPCS: 36415; 80048; 81001; 83735; 85025; 87040; 87077; 87086; 87088; 87186; 87426; 97162; 97166; 97535; 99251; 99285; J2185; J7030; A4216; G0463; J2405

== ENCOUNTER 2020-11-04 16:50 | Inpatient (IN) | payer MEDICARE, MEDICAID, SELFPAY ==
[2020-10-23 17:52] VITALS: BMI 50.2
[2020-11-04 16:51] VITALS: BP 139/65; PULSE 78; RESP 17; TEMP 36.3; O2SAT 95; BMI 49.9
[2020-11-04] MEDS: Phenazopyridine 95 MG Tablet 190 MG PO (17:55)
[2020-11-04] MEDS: fentaNYL 100 MCG/2 ML Ampul 25 MCG IV ×2 (17:55→21:14)
[2020-11-04 18:07] LABS: Mucous, Urine 0 SEEN /hpf (<or=2+)
[2020-11-04 18:14] LABS: Color, Urine Yellow (Yellow); Glucose, Dipstick Normal (Normal); Ketone-Dipstick Negative (Negative); Leukocyte Esterase-Dipstick 100 /ul (Negative); Nitrite-Dipstick Negative (Negative); Occult Blood-Urine 50 /ul (Negative); Protein-Dipstick Negative (Negative); Specific Gravity, Urine 1.015 (1.002-1.030); Urine Bilirubin Dipstick Negative (Negative); Urine Urobilinogen Normal (Normal)
[2020-11-04 18:16] LABS: Absolute Lymphocyte Count 1.61 X10^3/uL (0.83-4.51); Absolute Neutrophil Count 3.6 X10^3/uL (2.0-7.7); Basophil# 0.05 X10^3/uL; Basophil% 0.9 % (0-1); Eosinophil# 0.12 X10^3/uL; Hematocrit 36.8 % (37-47); Hemoglobin 11.4 g/dL (12.0-15.0); Lymphocyte # 1.61 X10^3/ul (0.83-4.51); Lymphocyte % 27.4 % (19-41); Mean Corpuscular Hgb 27.2 pg (27.0-32.0); Mean Corpuscular Volume 87.8 fL (81-99); Mean Platelet Vol. 10.4 fl (6.2-12.0); Monocyte# 0.53 X10^3/uL; NRBC Flagged by Analyzer 0 % (0-5); Neutrophil # 3.55 X10^3/uL (2.7-7.7); Neutrophil % 60.5 % (47-70); Platelet Count 273 K/mm3 (150-450); RBC Distribution Width CV 15.5 % (11.6-14.6); RBC Distribution Width SD 49.6 fl (35.1-43.9); Red Blood Count 4.19 M/mm3 (4.2-5.4); White Blood Count 5.9 K/mm3 (4.4-11.0)
[2020-11-04 18:19] LABS: Urine Clarity Cloudy (Clear)
[2020-11-04 18:38] VITALS: BP 151/76; PULSE 76; RESP 16
[2020-11-04 18:39] LABS: Hyaline Cast 0-5 SEEN /lpf (0-5)
[2020-11-04 18:42] LABS: Bacteria 2+ /hpf (None Seen); Squamous Epithelial Cells - UA 5-10 SEEN /hpf (5-10); White Blood Cells 50-100 SEEN /hpf (0-5)
[2020-11-04 18:43] LABS: Red Blood Cells-Urine 0-5 SEEN /hpf (0-5); Transitional Epithelial - Ur 0-5 SEEN /hpf (0-5)
[2020-11-04 18:58] LABS: Anion Gap 5 (5-15); BUN 14 mg/dL (7-18); BUN/Creat Ratio 17.7 RATIO (10-20); Calcium,Total 8.5 mg/dL (8.5-10.1); Chloride 103 mmol/L (98-107); Creatinine, Serum 0.79 mg/dL (0.55-1.02); EST Glomerular Filtration Rate 76 mL/min (>60); Est Glom Filt Rate - Afr Amer 92 mL/min (>60); Estimated Creatinine Clearance 44.41 ml/min; Glucose 92 mg/dL (74-106); Potassium 4.2 mmol/L (3.5-5.1); Sodium Level 139 mmol/L (136-145)
--- NOTE | 2020-11-04 20:49 | EDS_ITS ---
HPI History of Present Illness Chief Complaint: Complaint Informant: patient Onset/Context/Timing Onset: Days Context: Gradual Onset Current Severity: Mild Maximum Severity: Moderate Narrative Narrative: Patient presents with burning with urination and lower abdominal pain. Symptoms of been ongoing for the past couple of days. Patient gets frequent UTIs and just finished Keflex approximately 5 days ago. She was discharged from the hospital on October 26. She does have a history of multidrug- resistant organisms on her urine cultures, but most recent urine culture revealed E. coli and Klebsiella that was pansensitive. Patient denies fever or chills. [facility] Medical History Arthritis Carpal tunnel syndrome Cataracts, both eyes Closed left arm fracture Diabetes DVT (deep venous thrombosis) FHx: cholecystectomy GI bleed Hearing loss, left Hearing loss, right Heart disease History of gallstones Hypertension Kidney stones Neuropathy Non-smoker Osteoarthritis Polycystic ovaries Pulmonary embolism Home Medications cholecalciferol (vitamin D3) [Vitamin D3] 1,000 unit PO DAILY 12/29/15 [History Last Taken 10/22/20] duloxetine 60 mg PO DAILY 12/29/15 [History Last Taken 10/22/20] pravastatin 40 mg PO QHS 08/05/18 [History Last Taken 10/22/20] fluticasone propionate 2 spray NASAL DAILY 03/18/19 [History Last Taken 10/22/20] primidone 50 mg PO TID 03/18/19 [History Last Taken 10/22/20] simethicone 80 mg PO TIDCM 03/18/19 [History Last Taken 10/22/20] mirabegron 50 mg PO QHS 01/24/20 [History Last Taken 10/22/20] famotidine 20 mg PO DAILY 03/23/20 [History Last Taken 10/22/20] gabapentin 400 mg PO TID 07/09/20 [History Last Taken 10/22/20] divalproex 500 mg PO BID #0 07/11/20 [Rx Last Taken 10/22/20] bupropion HCl 150 mg PO DAILY 08/09/20 [History Last Taken 10/22/20] alum-mag hydroxide-simeth 30 ml PO Q4H PRN PRN 08/20/20 [History Last Taken 10/22/20] oxybutynin chloride 10 mg PO DAILY 08/20/20 [History Last Taken 10/22/20] albuterol sulfate 2.5 mg INHALATION Q2H PRN PRN vial.neb. 08/22/20 [Rx Last Taken Unknown] acetaminophen 500 - 1,000 mg PO Q6H PRN PRN 09/28/20 [History Last Taken 10/22/20] ascorbic acid (vitamin C) 500 mg PO DAILY 09/28/20 [History Last Taken 10/22/20] oxycodone 5 mg PO Q4H PRN 09/28/20 [History Last Taken 10/22/20] apixaban 5 mg PO BID #60 tablet 10/02/20 [Rx Last Taken 10/22/20] methenamine hippurate 1 gm PO BID #180 tablet 10/02/20 [Rx Last Taken 10/22/20] cyanocobalamin (vitamin B-12) 1,000 mcg IM QMONTH 10/23/20 [History Last Taken 10/22/20] ferrous sulfate 325 mg PO DAILY 10/23/20 [History Last Taken 10/22/20] primidone 100 mg PO DAILY 10/23/20 [History Last Taken 10/22/20] cephalexin 500 mg PO TID #10 tab 10/26/20 [Rx Last Taken Unknown] furosemide 60 mg PO DAILY #0 tab 10/26/20 [Rx Last Taken 10/22/20] Allergy/AdvReac Type Severity Reaction Status Date / Time ampicillin [From Unasyn] Allergy Severe Other Verified 11/04/20 16:54 warfarin sodium Allergy Severe Low red Verified 11/04/20 16:54 [From Coumadin] blood cells Family History Father Colon cancer Hypertension Mother Hypertension Surgical History History of carpal tunnel surgery History of cholecystectomy History of embolic filter insertion History of hysterectomy Total knee replacement status Social History Smoking Status: Never smoker alcohol intake: current alcohol intake frequency: holidays/special occasions only substance use type: does not use what type of physical activity do you participate in: walking and aerobics frequency: 1-2 times per week ROS ROS ED Constitutional Constitutional ED: Denies chills or fever(s) Eyes Eyes: Denies change in vision ENT ENT ED: Denies sore throat Cardiovascular Cardiovascular: Denies chest pain Respiratory/Chest Respiratory/Chest: Denies cough or dyspnea Gastrointestinal Gastrointestinal: Reports abdominal pain; Denies diarrhea, nausea or vomiting Genitourinary Genitourinary ED: Reports dysuria Musculoskeletal Musculoskeletal: Denies back pain Integumentary Denies rash Neurologic Neurologic: Denies headache(s) or weakness Psychiatric Psychiatric: Denies anxiety or depression Endocrine Endocrinology: Denies polydipsia or polyuria Allergic/Immunologic Allergic/Immunologic ED: Denies urticaria EXAM Physical Exam Const Vital Signs: 11/04/20 16:51 11/04/20 18:38 Temperature 97.3 F L Temperature Source Temporal Pulse Rate 78 76 Respiratory Rate 17 16 Blood Pressure 139/65 H 151/76 H Blood Pressure Mean 89 101 Pulse Ox 95 Oxygen Delivery Method Room Air Positive well nourished and well developed General Appearance ED: well developed HEENT Reports normocephalic and head/scalp atraumatic Eyes PERRL and EOMs intact bilaterally Neck supple Chest Wall inspection of chest normal and palpation of chest normal Resp normal respiratory effort and clear to auscultation bilaterally Cardio regular rate and regular rhythm GI normal to inspection, nondistended, normoactive bowel sounds Palpation: soft and tender suprapubic Extremity normal to inspection Neuro oriented x3 and no sensory deficits noted Sensorium / Orientation: alert Motor Exam: strength 5/5 throughout Psych mental status grossly normal Skin no rashes or lesions noted MDM MDM MDM Narrative Medical decision making narrative: Patient was given fentanyl and Azo for pain. Lab Data Attestation: I reviewed the patient's lab results. Labs: Laboratory Results - last 24 hr 11/04/20 11/04/20 11/04/20 17:50 17:55 17:55 WBC 5.9 RBC 4.19 L Hgb 11.4 L Hct 36.8 L MCV 87.8 MCH 27.2 MCHC 31.0 L RDW Std Deviation 49.6 H RDW Coeff of Chani 15.5 H Plt Count 273 MPV 10.4 Immature Gran % (Auto) 0.200 Neut % (Auto) 60.5 Lymph % (Auto) 27.4 [place] % (Auto) 9.0 Eos % (Auto) 2.0 Baso % (Auto) 0.9 Absolute Neuts (auto) 3.6 Absolute Lymphs (auto) 1.61 Nucleated RBC % 0 Sodium Cancelled Potassium Cancelled Chloride Cancelled Carbon Dioxide Cancelled Anion Gap Cancelled BUN Cancelled Creatinine Cancelled Estim Creat Clear Calc Cancelled Est GFR (MDRD) Af Amer Cancelled Est GFR (MDRD) Non-Af Cancelled BUN/Creatinine Ratio Cancelled Glucose Cancelled Lactic Acid Calcium Cancelled Urine Color Yellow Urine Clarity Cloudy Urine pH 5.0 Ur Specific [place] 1.015 Urine Protein Negative Urine Glucose (UA) Normal Urine Ketones Negative Urine Occult Blood 50 H Urine Nitrite Negative Urine Bilirubin Negative Urine Urobilinogen Normal Ur Leukocyte Esterase 100 H Urine RBC 0-5 SEEN Urine WBC 50-100 SEEN Ur Squamous Epith Cells 5-10 SEEN Ur Transition Epith Cell 0-5 SEEN Urine Bacteria 2+ Hyaline Casts 0-5 SEEN Urine Mucus 0 SEEN 11/04/20 11/04/20 17:55 18:30 WBC RBC Hgb Hct MCV MCH MCHC RDW Std Deviation RDW Coeff of Chani Plt Count MPV Immature Gran % (Auto) Neut % (Auto) Lymph % (Auto) [place] % (Auto) Eos % (Auto) Baso % (Auto) Absolute Neuts (auto) Absolute Lymphs (auto) Nucleated RBC % Sodium 139 Potassium 4.2 Chloride 103 Carbon Dioxide 31.0 Anion Gap 5 BUN 14 Creatinine 0.79 Estim Creat Clear Calc 44.41 Est GFR (MDRD) Af Amer 92 Est GFR (MDRD) Non-Af 76 BUN/Creatinine Ratio 17.7 Glucose 92 Lactic Acid 1.0 Calcium 8.5 Urine Color Urine Clarity Urine pH Ur Specific [place] Urine Protein Urine Glucose (UA) Urine Ketones Urine Occult Blood Urine Nitrite Urine Bilirubin Urine Urobilinogen Ur Leukocyte Esterase Urine RBC Urine WBC Ur Squamous Epith Cells Ur Transition Epith Cell Urine Bacteria Hyaline Casts Urine Mucus Treatment and Re-Evaluation Comments:: Lab work reveals normal white count and renal function. Urinalysis does show infection. Urine culture was sent. I did speak with Dr. Kirby, infectious disease who is familiar with this patient. He did not have strong feelings 1 where the other whether the patient would require IV antibiotics or could go home with Keflex given her most recent culture revealed pansensitive bacteria. I discussed this with the patient she does not feel comfortable going home on oral antibiotics. She voices that the IV antibiotics always worked better for her. I will speak with hospitalist regarding admission. Based on her previous resistant organisms she will be given a dose of meropenem. Discharge Plan Triage Chief Complaint: Complaint ED Provider: Manda Saba Dx/Rx/DC Orders Clinical Impression: Cystitis Prescriptions: No Action cholecalciferol (vitamin D3) [Vitamin D3] 1,000 UNIT tablet 1,000 unit PO DAILY RF: 0 duloxetine 60 MG capsule 60 mg PO DAILY RF: 0 pravastatin 40 MG tablet 40 mg PO QHS RF: 0 primidone 50 MG tablet 50 mg PO TID RF: 0 fluticasone propionate 1 SPRAY spray,suspension 2 spray NASAL DAILY RF: 0 simethicone 80 MG tablet 80 mg PO TIDCM RF: 0 mirabegron 50 MG tablet extended release 24 hr 50 mg PO QHS RF: 0 famotidine 20 MG tablet 20 mg PO DAILY RF: 0 gabapentin 400 MG capsule 400 mg PO TID RF: 0 divalproex 500 MG tablet,delayed release (DR/EC) 500 mg PO BID Qty: 0 RF: 0 bupropion HCl 150 MG tablet extended release 24 hr 150 mg PO DAILY RF: 0 alum-mag hydroxide-simeth 355 ML suspension 30 ml PO Q4H PRN PRN (Reason: GI DISTRESS) RF: 0 oxybutynin chloride 10 MG tablet extended release 24hr 10 mg PO DAILY RF: 0 albuterol sulfate 2.5 MG/3 ML solution for nebulization 2.5 mg INHALATION Q2H PRN PRN (Reason: Dyspnea, wheezing) RF: 0 oxycodone 5 MG tablet 5 mg PO Q4H PRN (Reason: Pain Score 1-10) RF: 0 ascorbic acid (vitamin C) 500 MG tablet 500 mg PO DAILY RF: 0 acetaminophen 500 MG tablet 500 - 1,000 mg PO Q6H PRN PRN (Reason: Pain Score 1-10) RF: 0 methenamine hippurate 1 GM tablet 1 gm PO BID Qty: 180 RF: 1 apixaban 5 MG tablet 5 mg PO BID Qty: 60 RF: 0 primidone 50 mg Tablet 100 mg PO DAILY RF: 0 cyanocobalamin (vitamin B-12) 1,000 mcg/mL Solution 1,000 mcg IM QMONTH RF: 0 ferrous sulfate 325 mg (65 mg iron) Tablet 325 mg PO DAILY RF: 0 cephalexin 500 mg tablet 500 mg PO TID Qty: 10 RF: 0 furosemide 40 MG tablet 60 mg PO DAILY Qty: 0 RF: 0 Primary Care Provider: Gonzales Pinto Referrals: Gonzales Pinto MD [Primary Care Provider] - Disposition Disposition: Acute Care Hospital [facility]
--- NOTE | 2020-11-04 21:22 | PCM.HP.STD ---
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 Her pain radiates to her lower back all the way across. She denies any aggravating factor. Pain medicine that she received at the emergency department help with the pain. Associated with her symptom is dysuria; burning with urination and increased frequency of urination. She denies fever. However she reports chills. She denies nausea and vomiting except that at the emergency department after IV fentanyl was administered patient reported nausea. Of note patient completed Keflex for UTI about 4 days ago. Patient was admitted to the hospital on 10/23/2020 for acute cystitis. She was discharged on 10/26/2020. She was seen by infectious disease on that presentation. [facility] Medical History Arthritis Carpal tunnel syndrome Cataracts, both eyes Closed left arm fracture Diabetes DVT (deep venous thrombosis) FHx: cholecystectomy GI bleed Hearing loss, left Hearing loss, right Heart disease History of gallstones Hypertension Kidney stones Neuropathy Non-smoker Osteoarthritis Polycystic ovaries Pulmonary embolism Home Medications cholecalciferol (vitamin D3) [Vitamin D3] 1,000 unit PO DAILY 12/29/15 [History Last Taken 10/22/20] duloxetine 60 mg PO DAILY 12/29/15 [History Last Taken 10/22/20] pravastatin 40 mg PO QHS 08/05/18 [History Last Taken 10/22/20] fluticasone propionate 2 spray NASAL DAILY 03/18/19 [History Last Taken 10/22/20] primidone 50 mg PO TID 03/18/19 [History Last Taken 10/22/20] simethicone 80 mg PO TIDCM 03/18/19 [History Last Taken 10/22/20] mirabegron 50 mg PO QHS 01/24/20 [History Last Taken 10/22/20] famotidine 20 mg PO DAILY 03/23/20 [History Last Taken 10/22/20] gabapentin 400 mg PO TID 07/09/20 [History Last Taken 10/22/20] divalproex 500 mg PO BID #0 07/11/20 [Rx Last Taken 10/22/20] bupropion HCl 150 mg PO DAILY 08/09/20 [History Last Taken 10/22/20] alum-mag hydroxide-simeth 30 ml PO Q4H PRN PRN 08/20/20 [History Last Taken 10/22/20] oxybutynin chloride 10 mg PO DAILY 08/20/20 [History Last Taken 10/22/20] albuterol sulfate 2.5 mg INHALATION Q2H PRN PRN vial.neb. 08/22/20 [Rx Last Taken Unknown] acetaminophen 500 - 1,000 mg PO Q6H PRN PRN 09/28/20 [History Last Taken 10/22/20] ascorbic acid (vitamin C) 500 mg PO DAILY 09/28/20 [History Last Taken 10/22/20] oxycodone 5 mg PO Q4H PRN 09/28/20 [History Last Taken 10/22/20] apixaban 5 mg PO BID #60 tablet 10/02/20 [Rx Last Taken 10/22/20] methenamine hippurate 1 gm PO BID #180 tablet 10/02/20 [Rx Last Taken 10/22/20] cyanocobalamin (vitamin B-12) 1,000 mcg IM QMONTH 10/23/20 [History Last Taken 10/22/20] ferrous sulfate 325 mg PO DAILY 10/23/20 [History Last Taken 10/22/20] primidone 100 mg PO DAILY 10/23/20 [History Last Taken 10/22/20] cephalexin 500 mg PO TID #10 tab 10/26/20 [Rx Last Taken Unknown] furosemide 60 mg PO DAILY #0 tab 10/26/20 [Rx Last Taken 10/22/20] Allergy/AdvReac Type Severity Reaction Status Date / Time ampicillin [From Unasyn] Allergy Severe Other Verified 11/04/20 16:54 warfarin sodium Allergy Severe Low red Verified 11/04/20 16:54 [From Coumadin] blood cells Family History Father Colon cancer Hypertension Mother Hypertension Surgical History History of carpal tunnel surgery History of cholecystectomy History of embolic filter insertion History of hysterectomy Total knee replacement status Social History Smoking Status: Never smoker alcohol intake: current alcohol intake frequency: holidays/special occasions only substance use type: does not use what type of physical activity do you participate in: walking and aerobics frequency: 1-2 times per week ROS ROS Narrative 12 point review of system was negative except as stated in HPI. Vital Signs Vital Signs Vital Signs: 11/04/20 16:51 11/04/20 18:38 Temperature 97.3 F L Temperature Source Temporal Pulse Rate 78 76 Respiratory Rate 17 16 Blood Pressure 139/65 H 151/76 H Blood Pressure Mean 89 101 Pulse Ox 95 Oxygen Delivery Method Room Air Physical Exam Narrative Alert and oriented x3 Nontraumatic; normocephalic Lung clear to auscultate Heart sounds S1-S2. No murmur, gallop or rubs. Abdomen bowel sounds present soft, nondistended. Tender suprapubic area. Extremity without edema cyanosis or clubbing. Lab / Micro Data Result Diagrams: 11/04/20 17:55 11/04/20 18:30 Labs: Laboratory Results - last 24 hr 11/04/20 11/04/20 11/04/20 17:50 17:55 17:55 WBC 5.9 RBC 4.19 L Hgb 11.4 L Hct 36.8 L MCV 87.8 MCH 27.2 MCHC 31.0 L RDW Std Deviation 49.6 H RDW Coeff of Chani 15.5 H Plt Count 273 MPV 10.4 Immature Gran % (Auto) 0.200 Neut % (Auto) 60.5 Lymph % (Auto) 27.4 [place] % (Auto) 9.0 Eos % (Auto) 2.0 Baso % (Auto) 0.9 Absolute Neuts (auto) 3.6 Absolute Lymphs (auto) 1.61 Nucleated RBC % 0 Sodium Cancelled Potassium Cancelled Chloride Cancelled Carbon Dioxide Cancelled Anion Gap Cancelled BUN Cancelled Creatinine Cancelled Estim Creat Clear Calc Cancelled Est GFR (MDRD) Af Amer Cancelled Est GFR (MDRD) Non-Af Cancelled BUN/Creatinine Ratio Cancelled Glucose Cancelled Lactic Acid Calcium Cancelled Urine Color Yellow Urine Clarity Cloudy Urine pH 5.0 Ur Specific [place] 1.015 Urine Protein Negative Urine Glucose (UA) Normal Urine Ketones Negative Urine Occult Blood 50 H Urine Nitrite Negative Urine Bilirubin Negative Urine Urobilinogen Normal Ur Leukocyte Esterase 100 H Urine RBC 0-5 SEEN Urine WBC 50-100 SEEN Ur Squamous Epith Cells 5-10 SEEN Ur Transition Epith Cell 0-5 SEEN Urine Bacteria 2+ Hyaline Casts 0-5 SEEN Urine Mucus 0 SEEN 11/04/20 11/04/20 17:55 18:30 WBC RBC Hgb Hct MCV MCH MCHC RDW Std Deviation RDW Coeff of Chani Plt Count MPV Immature Gran % (Auto) Neut % (Auto) Lymph % (Auto) [place] % (Auto) Eos % (Auto) Baso % (Auto) Absolute Neuts (auto) Absolute Lymphs (auto) Nucleated RBC % Sodium 139 Potassium 4.2 Chloride 103 Carbon Dioxide 31.0 Anion Gap 5 BUN 14 Creatinine 0.79 Estim Creat Clear Calc 44.41 Est GFR (MDRD) Af Amer 92 Est GFR (MDRD) Non-Af 76 BUN/Creatinine Ratio 17.7 Glucose 92 Lactic Acid 1.0 Calcium 8.5 Urine Color Urine Clarity Urine pH Ur Specific [place] Urine Protein Urine Glucose (UA) Urine Ketones Urine Occult Blood Urine Nitrite Urine Bilirubin Urine Urobilinogen Ur Leukocyte Esterase Urine RBC Urine WBC Ur Squamous Epith Cells Ur Transition Epith Cell Urine Bacteria Hyaline Casts Urine Mucus Assessment & Plan Assessment/Plan (1) Acute UTI: (2) Diabetic neuropathy associated with type 2 diabetes mellitus: QUALIFIERS: Diabetes mellitus complication detail: diabetic polyneuropathy Qualified Code(s): E11.42 - Type 2 diabetes mellitus with diabetic polyneuropathy PLAN: Acute UTI Urinalysis done at the emergency department was reviewed. Urinalysis was positive for urine occult blood and leukocyte esterase. Also there was pyuria. Urine bacteria. Urine culture was obtained at emergency department; follow. Emergency department labs reviewed showed normal white count. Urine culture obtained on 10/23/2020 was reviewed. Urine culture was remarkable for E. coli and Klebsiella pneumoniae. E. coli was pansensitive. Klebsiella was resistant to multiple organisms. On this presentation patient was started on Merrem. Of note both bacteria Per sensitivities obtained on 10/23/2020 will be susceptible to Merrem. Merrem continued. Hold home methenamine hippurate Trend CBC and BMP. Family is asking that patient sees Dr. Villavicencio while inpatient. It is the weekend. Consider discussing case with if patient is still here on weekday. Diabetic neuropathy Outpatient control drugs monitoring was reviewed. Gabapentin continued. DVT/PE Eliquis continued. With IVC filter. Chronic pain/depression/anxiety/essential tremors Due to pain continue. Valproic acid continued. Gabapentin continued. Primidone continued Urinary retention Oxybutynin continued DVT prophylaxis: Not indicated since patient is on Eliquis. Visit Charges Inpatient E&M: 58723 Init Hosp L3
[2020-11-04 21:35] VITALS: BP 140/74; PULSE 74; RESP 16; O2SAT 97
[2020-11-04 22:03] VITALS: BP 152/59; PULSE 69; RESP 20; TEMP 36.6; O2SAT 97
[2020-11-04 22:07] VITALS: BMI 47.5
[2020-11-04] MEDS: Mirabegron 50 MG TAB.ER.24H PO (22:42)
[2020-11-04] MEDS: Pravastatin 40 MG Tablet PO (22:42)
[2020-11-04] MEDS: Primidone 50 MG Tablet PO (22:42)
[2020-11-04] MEDS: Gabapentin 400 MG Capsule PO (22:42)
[2020-11-05] MEDS: Acetaminophen 325 MG Tablet 650 MG PO ×4 (00:14→19:45)
[2020-11-05] MEDS: MELATONIN 3 MG TABLET PO ×2 (00:15→22:18)
[2020-11-05] MEDS: Gabapentin 400 MG Capsule PO ×3 (05:59→22:08)
[2020-11-05 06:00] VITALS: BP 110/46; PULSE 72; RESP 18; TEMP 36.8; O2SAT 94
[2020-11-05 06:59] LABS: Absolute Lymphocyte Count 1.44 X10^3/uL (0.83-4.51); Absolute Neutrophil Count 1.6 X10^3/uL (2.0-7.7); Basophil# 0.02 X10^3/uL; Basophil% 0.6 % (0-1); Eosinophils% 2.9 % (0-5); Hematocrit 33.8 % (37-47); Hemoglobin 10.3 g/dL (12.0-15.0); Lymphocyte # 1.44 X10^3/ul (0.83-4.51); Lymphocyte % 41.4 % (19-41); Mean Corp Hgb Conc 30.5 g/dL (32-36); Mean Corpuscular Hgb 26.9 pg (27.0-32.0); Mean Corpuscular Volume 88.3 fL (81-99); Mean Platelet Vol. 9.7 fl (6.2-12.0); Monocyte# 0.36 X10^3/uL; Monocyte% 10.3 % (0-10); NRBC Flagged by Analyzer 0 % (0-5); Neutrophil # 1.55 X10^3/uL (2.7-7.7); Neutrophil % 44.5 % (47-70); Platelet Count 224 K/mm3 (150-450); RBC Distribution Width CV 15.6 % (11.6-14.6); RBC Distribution Width SD 50.8 fl (35.1-43.9); Red Blood Count 3.83 M/mm3 (4.2-5.4); White Blood Count 3.5 K/mm3 (4.4-11.0)
[2020-11-05 07:26] LABS: Anion Gap 5 (5-15); BUN 13 mg/dL (7-18); BUN/Creat Ratio 20.5 RATIO (10-20); Calcium,Total 8.4 mg/dL (8.5-10.1); Chloride 105 mmol/L (98-107); Creatinine, Serum 0.63 mg/dL (0.55-1.02); EST Glomerular Filtration Rate 98 mL/min (>60); Est Glom Filt Rate - Afr Amer 118 mL/min (>60); Estimated Creatinine Clearance 44.41 ml/min; Glucose 83 mg/dL (74-106); Potassium 3.7 mmol/L (3.5-5.1); Sodium Level 140 mmol/L (136-145)
[2020-11-05 07:42] VITALS: O2SAT 94
[2020-11-05 08:17] VITALS: BP 99/34; PULSE 69; RESP 16; TEMP 36.7; O2SAT 93
[2020-11-05] MEDS: Primidone 50 MG Tablet 150 MG PO (08:58)
[2020-11-05] MEDS: Ferrous Sulfate 325 MG Tablet PO (08:58)
[2020-11-05] MEDS: DULoxetine Hcl 60 MG Capsule PO (09:00)
[2020-11-05] MEDS: Ascorbic Acid 500 MG Tablet PO (09:00)
[2020-11-05] MEDS: buPROPion (XL) 150 MG TABLET.XL PO (09:00)
[2020-11-05] MEDS: 0.9% Saline Lock 10 ML Syringe IV ×2 (09:00→22:18)
[2020-11-05] MEDS: APIXABAN 5 MG TABLET PO ×2 (09:01→22:09)
[2020-11-05] MEDS: Fluticasone 0.05% 1 SPRAY NASAL.SRY 2 SPRAY NASAL (09:01)
[2020-11-05] MEDS: Cholecalciferol (VIT D3) 25 MCG TABLET (1,000 UNITS) PO (09:01)
[2020-11-05] MEDS: Tolterodine Tartrate 2 MG CAP.SA PO (09:01)
[2020-11-05] MEDS: Divalproex Sodium 250 MG Tablet 500 MG PO ×2 (09:01→22:10)
[2020-11-05] MEDS: Furosemide 20 MG Tablet 60 MG PO (09:01)
[2020-11-05 11:48] VITALS: BP 111/52; PULSE 68; RESP 16; TEMP 36.4; O2SAT 95
[2020-11-05] MEDS: Primidone 50 MG Tablet PO ×2 (11:50→16:43)
[2020-11-05] MEDS: Phenazopyridine 95 MG Tablet PO ×2 (12:38→16:43)
[2020-11-05] MEDS: oxyCODONE 5 MG Tablet PO ×2 (12:38→18:42)
--- NOTE | 2020-11-05 15:31 | PN.HOSP_ITS ---
Subjective Subjective Patient was seen and examined today, her white blood cell count was 3.5 this morning, patient continues to complain of some dysuria. Objective Data Objective Data Vital Signs: Vital Signs Temp Pulse Resp BP Pulse Ox 97.5 F L 68 16 111/52 L 95 11/05/20 11:48 11/05/20 11:48 11/05/20 11:48 11/05/20 11:48 11/05/20 11:48 Oxygen Delivery Method Room Air Weight: 129.7 kg Body Mass Index (BMI) 47.5 Intake & Output: Intake and Output for Last 24 Hours 11/03/20 11/04/20 11/05/20 23:59 23:59 23:59 Intake Total 120 / 420 1210 / 1210 Output Total 1025 / 1025 Balance 120 / 195 185 / 185 Lab / Micro Data Result Diagrams: 11/05/20 06:37 11/05/20 06:37 Labs: Laboratory Results - last 24 hr 11/04/20 11/04/20 11/04/20 17:50 17:55 17:55 WBC 5.9 RBC 4.19 L Hgb 11.4 L Hct 36.8 L MCV 87.8 MCH 27.2 MCHC 31.0 L RDW Std Deviation 49.6 H RDW Coeff of Chani 15.5 H Plt Count 273 MPV 10.4 Immature Gran % (Auto) 0.200 Neut % (Auto) 60.5 Lymph % (Auto) 27.4 Sau[place] % (Auto) 9.0 Eos % (Auto) 2.0 Baso % (Auto) 0.9 Absolute Neuts (auto) 3.6 Absolute Lymphs (auto) 1.61 Nucleated RBC % 0 Sodium Cancelled Potassium Cancelled Chloride Cancelled Carbon Dioxide Cancelled Anion Gap Cancelled BUN Cancelled Creatinine Cancelled Estim Creat Clear Calc Cancelled Est GFR (MDRD) Af Amer Cancelled Est GFR (MDRD) Non-Af Cancelled BUN/Creatinine Ratio Cancelled Glucose Cancelled Lactic Acid Calcium Cancelled Urine Color Yellow Urine Clarity Cloudy Urine pH 5.0 Ur Specific [place] 1.015 Urine Protein Negative Urine Glucose (UA) Normal Urine Ketones Negative Urine Occult Blood 50 H Urine Nitrite Negative Urine Bilirubin Negative Urine Urobilinogen Normal Ur Leukocyte Esterase 100 H Urine RBC 0-5 SEEN Urine WBC 50-100 SEEN Ur Squamous Epith Cells 5-10 SEEN Ur Transition Epith Cell 0-5 SEEN Urine Bacteria 2+ Hyaline Casts 0-5 SEEN Urine Mucus 0 SEEN 11/04/20 11/04/20 11/05/20 17:55 18:30 06:37 WBC 3.5 L RBC 3.83 L Hgb 10.3 L Hct 33.8 L MCV 88.3 MCH 26.9 L MCHC 30.5 L RDW Std Deviation 50.8 H RDW Coeff of Chani 15.6 H Plt Count 224 MPV 9.7 Immature Gran % (Auto) 0.300 Neut % (Auto) 44.5 L Lymph % (Auto) 41.4 H Sauk % (Auto) 10.3 H Eos % (Auto) 2.9 Baso % (Auto) 0.6 Absolute Neuts (auto) 1.6 L Absolute Lymphs (auto) 1.44 Nucleated RBC % 0 Sodium 139 Potassium 4.2 Chloride 103 Carbon Dioxide 31.0 Anion Gap 5 BUN 14 Creatinine 0.79 Estim Creat Clear Calc 44.41 Est GFR (MDRD) Af Amer 92 Est GFR (MDRD) Non-Af 76 BUN/Creatinine Ratio 17.7 Glucose 92 Lactic Acid 1.0 Calcium 8.5 Urine Color Urine Clarity Urine pH Ur Specific [place] Urine Protein Urine Glucose (UA) Urine Ketones Urine Occult Blood Urine Nitrite Urine Bilirubin Urine Urobilinogen Ur Leukocyte Esterase Urine RBC Urine WBC Ur Squamous Epith Cells Ur Transition Epith Cell Urine Bacteria Hyaline Casts Urine Mucus 11/05/20 06:37 WBC RBC Hgb Hct MCV MCH MCHC RDW Std Deviation RDW Coeff of Chani Plt Count MPV Immature Gran % (Auto) Neut % (Auto) Lymph % (Auto) Sauk % (Auto) Eos % (Auto) Baso % (Auto) Absolute Neuts (auto) Absolute Lymphs (auto) Nucleated RBC % Sodium 140 Potassium 3.7 Chloride 105 Carbon Dioxide 30.0 Anion Gap 5 BUN 13 Creatinine 0.63 Estim Creat Clear Calc 44.41 Est GFR (MDRD) Af Amer 118 Est GFR (MDRD) Non-Af 98 BUN/Creatinine Ratio 20.5 H Glucose 83 Lactic Acid Calcium 8.4 L Urine Color Urine Clarity Urine pH Ur Specific [place] Urine Protein Urine Glucose (UA) Urine Ketones Urine Occult Blood Urine Nitrite Urine Bilirubin Urine Urobilinogen Ur Leukocyte Esterase Urine RBC Urine WBC Ur Squamous Epith Cells Ur Transition Epith Cell Urine Bacteria Hyaline Casts Urine Mucus Micro: Microbiology 11/04/20 17:50 Urine Catheter - Catheter Urine Culture - Preliminary GNR lactose director of vital statistics Physical Exam Const alert, oriented x3 and no apparent distress Constitutional Narrative: Patient is morbidly obese HEENT head/scalp atraumatic and moist oral mucous membranes Head and Scalp: normocephalic Eyes PERRL, EOMs intact bilaterally and conjunctivae normal Neck no lymphadenopathy, supple and no JVD Resp normal respiratory effort, no retractions, no use of accessory muscles and clear to auscultation bilaterally Cardio regular rate, regular rhythm, S1 normal heart sound, S2 normal heart sound, no gallops and no clicks GI normal to inspection, nondistended, normoactive bowel sounds, soft to palpation and non-tender GI Narrative: Patient is morbidly obese Patient is morbidly obese Extremity no clubbing, cyanosis or edema Extremity Narrative: Evidence of severe arthritis was noted in the fingers and hand Skin no rashes or lesions noted and no wounds Neuro oriented x3 Sensorium / Orientation: awake and alert Psych affect normal Assessment & Plan Assessment/Plan (1) UTI (urinary tract infection): PLAN: #1 acute cystitis-continue present IV antibiotics, await urine cultures, suspect multidrug-resistant bacteria #2 type 2 diabetes-monitor blood sugars #3 morbid obesity #4 diabetic neuropathy #5 osteoarthritis Visit Charges Inpatient E&M: 85658 [facility] Hosp L2
[2020-11-05 16:41] VITALS: BP 122/68; PULSE 66; RESP 16; TEMP 36.4; O2SAT 93
[2020-11-05 22:00] VITALS: BP 115/67; PULSE 69; RESP 16; TEMP 36.6; O2SAT 97
[2020-11-05] MEDS: Mirabegron 50 MG TAB.ER.24H PO (22:09)
[2020-11-05] MEDS: Pravastatin 40 MG Tablet PO (22:09)
[2020-11-06 05:00] VITALS: BP 106/44; PULSE 64; RESP 18; TEMP 36.7; O2SAT 97
[2020-11-06] MEDS: oxyCODONE 5 MG Tablet PO (05:02)
[2020-11-06] MEDS: Gabapentin 400 MG Capsule PO (05:02)
[2020-11-06] MEDS: Ascorbic Acid 500 MG Tablet PO (08:35)
[2020-11-06] MEDS: Furosemide 20 MG Tablet 60 MG PO (08:35)
[2020-11-06] MEDS: Primidone 50 MG Tablet 150 MG PO (08:35)
[2020-11-06] MEDS: DULoxetine Hcl 60 MG Capsule PO (08:35)
[2020-11-06] MEDS: Tolterodine Tartrate 2 MG CAP.SA PO (08:35)
[2020-11-06] MEDS: Divalproex Sodium 250 MG Tablet 500 MG PO (08:35)
[2020-11-06] MEDS: Ferrous Sulfate 325 MG Tablet PO (08:35)
[2020-11-06] MEDS: Cholecalciferol (VIT D3) 25 MCG TABLET (1,000 UNITS) PO (08:35)
[2020-11-06] MEDS: Phenazopyridine 95 MG Tablet PO (08:36)
[2020-11-06] MEDS: Fluticasone 0.05% 1 SPRAY NASAL.SRY 2 SPRAY NASAL (08:36)
[2020-11-06] MEDS: buPROPion (XL) 150 MG TABLET.XL PO (08:36)
[2020-11-06] MEDS: APIXABAN 5 MG TABLET PO (08:36)
[2020-11-06 08:49] VITALS: BP 109/47; PULSE 70; RESP 18; TEMP 36.4; O2SAT 96
[2020-11-06 10:55] VITALS: O2SAT 96
--- NOTE | 2020-11-06 11:02 | PCM.DC ---
Discharge Instructions Follow Up Care Test Results: Test results from this visit will be discussed in further detail at your follow-up appointment, if applicable. Discharge Plan Admission Admit Date/Time: 11/04/20 21:10 Primary Reason for Your Visit: CYSTITIS Attending Provider: Dewayne Orlando Primary Care Provider: Gonzales Pinto Discharge Orders/Prescriptions Prescriptions: New ciprofloxacin HCl [Cipro] 500 mg tablet 500 mg PO BID Qty: 14 RF: 0 phenazopyridine [Pyridium] 100 mg tablet 100 mg PO TID Qty: 12 RF: 0 Continued cholecalciferol (vitamin D3) [Vitamin D3] 1,000 UNIT tablet 1,000 unit PO DAILY RF: 0 duloxetine 60 MG capsule 60 mg PO DAILY RF: 0 pravastatin 40 MG tablet 40 mg PO QHS RF: 0 primidone 50 MG tablet 50 mg PO TID RF: 0 fluticasone propionate 1 SPRAY spray,suspension 2 spray NASAL DAILY RF: 0 simethicone 80 MG tablet 80 mg PO TIDCM RF: 0 mirabegron 50 MG tablet extended release 24 hr 50 mg PO QHS RF: 0 famotidine 20 MG tablet 20 mg PO DAILY RF: 0 gabapentin 400 MG capsule 400 mg PO TID RF: 0 divalproex 500 MG tablet,delayed release (DR/EC) 500 mg PO BID Qty: 0 RF: 0 bupropion HCl 150 MG tablet extended release 24 hr 150 mg PO DAILY RF: 0 alum-mag hydroxide-simeth 355 ML suspension 30 ml PO Q4H PRN PRN (Reason: GI DISTRESS) RF: 0 oxybutynin chloride 10 MG tablet extended release 24hr 10 mg PO DAILY RF: 0 albuterol sulfate 2.5 MG/3 ML solution for nebulization 2.5 mg INHALATION Q2H PRN PRN (Reason: Dyspnea, wheezing) RF: 0 oxycodone 5 MG tablet 5 mg PO Q4H PRN (Reason: Pain Score 1-10) RF: 0 ascorbic acid (vitamin C) 500 MG tablet 500 mg PO DAILY RF: 0 acetaminophen 500 MG tablet 500 - 1,000 mg PO Q6H PRN PRN (Reason: Pain Score 1-10) RF: 0 methenamine hippurate 1 GM tablet 1 gm PO BID Qty: 180 RF: 1 apixaban 5 MG tablet 5 mg PO BID Qty: 60 RF: 0 primidone 50 mg Tablet 100 mg PO DAILY RF: 0 cyanocobalamin (vitamin B-12) 1,000 mcg/mL Solution 1,000 mcg IM QMONTH RF: 0 ferrous sulfate 325 mg (65 mg iron) Tablet 325 mg PO DAILY RF: 0 furosemide 40 MG tablet 60 mg PO DAILY Qty: 0 RF: 0 Referrals / Follow Up: Gonzales Pinto MD [Primary Care Provider] - Within 2 Weeks Alejandra Villavicencio MD [STAFF PHYSICIAN] - Within 1 Month Disposition Disposition (needs filled in before D/C Order can be placed): Assisted Living
--- NOTE | 2020-11-06 11:40 | CASEMGMT ---
BETTY CROFT chart review: Patient was admitted 10/23/20-10/26/20 for acute cystitis. ID was consulted for patient and discharged on PO Keflex. Patient is from [facility] and returned there at discharge. Patient returned on 11/04 for complaints and cystitis. Patient follows with Dr. Villavicencio, urologist and follow-up recommended at discharge. Patient is discharging back to [facility] today on oral cipro.
--- NOTE | 2020-11-06 11:47 | PHA.DC.MR ---
Pharmacy Service has performed discharge medication reconciliation for this patient. The patient's discharge medication list was reviewed for discrepancies and discrepancies were resolved. Home Medications cholecalciferol (vitamin D3) [Vitamin D3] 1,000 unit PO DAILY 12/29/15 duloxetine 60 mg PO DAILY 12/29/15 pravastatin 40 mg PO QHS 08/05/18 fluticasone propionate 2 spray NASAL DAILY 03/18/19 primidone 50 mg PO TID 03/18/19 simethicone 80 mg PO TIDCM 03/18/19 mirabegron 50 mg PO QHS 01/24/20 famotidine 20 mg PO DAILY 03/23/20 gabapentin 400 mg PO TID 07/09/20 divalproex 500 mg PO BID #0 07/11/20 bupropion HCl 150 mg PO DAILY 08/09/20 alum-mag hydroxide-simeth 30 ml PO Q4H PRN PRN 08/20/20 oxybutynin chloride 10 mg PO DAILY 08/20/20 albuterol sulfate 2.5 mg INHALATION Q2H PRN PRN vial.neb. 08/22/20 acetaminophen 500 - 1,000 mg PO Q6H PRN PRN 09/28/20 ascorbic acid (vitamin C) 500 mg PO DAILY 09/28/20 oxycodone 5 mg PO Q4H PRN 09/28/20 apixaban 5 mg PO BID #60 tablet 10/02/20 methenamine hippurate 1 gm PO BID #180 tablet 10/02/20 cyanocobalamin (vitamin B-12) 1,000 mcg IM QMONTH 10/23/20 ferrous sulfate 325 mg PO DAILY 10/23/20 primidone 100 mg PO DAILY 10/23/20 furosemide 60 mg PO DAILY #0 tab 10/26/20 ciprofloxacin HCl [Cipro] 500 mg PO BID #14 tab 11/06/20 phenazopyridine [Pyridium] 100 mg PO TID #12 tab 11/06/20
--- NOTE | 2020-11-06 12:00 | CASEMGMT ---
Social Work Note Pt is able to discharge back to [facility] today. RUKHSANA faxed discharge paperwork and clinicals to [facility] and the COVID test and COVID tool. RUKHSANA spoke with pt's CM Brook Schwarz at [facility] and updated her on discharge today. Brook requests paperwork be faxed to her. RUKHSANA faxed discharge paperwork to Brook Chong at [facility]. RUKHSANA accessed trip assist and arranged transportation via wheelchair van at 1:00pm. Transportation form completed and placed on SNF Folder and copy on pt's chart. RUKHSANA updated pt on discharge back to [facility] today at 1:00pm. Pt confirms plan is to return to [facility]. Pt states she is a mess right now (due to health and other reasons). RUKHSANA asked pt if she wanted to talk about things going on in her life and pt denied. RUKHSANA asked pt if she wanted this worker to call her daughter Guera to update on discharge and pt gave this worker permission to call her daughter Guera to update. RUKHSANA placed a call to pt's daughter Guera and updated her on discharge and transportation time. Guera states understanding. RN updated on transportation time. RUKHSANA placed a call to [facility] and spoke with Ruba and updated her on discharge and transportation time. Plan: [facility] today with physician's transporting pt via wheelchair van at 1:00pm Maria E ZAMORA, INVENTORY MANAGEMENT SPECIALIST
[2020-11-06 12:39] VITALS: BP 109/47; PULSE 96; RESP 18; TEMP 36.4; O2SAT 96
--- NOTE | 2020-11-06 16:27 | PCM.DC.SUM ---
Providers Date of Admission: 11/04/20 Date of Discharge: 11/06/20 Primary Care Physician: Dr. Gonzales Pinto MD Reason For Visit: CYSTITIS Diagnosis Discharge Diagnosis (1) UTI (urinary tract infection): Status: Chronic Code(s): N39.0 - Urinary tract infection, site not specified Plan: #1 acute cystitis with E. 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 #9 diabetic neuropathy Medications at Discharge Home Medications cholecalciferol (vitamin D3) [Vitamin D3] 1,000 unit PO DAILY 12/29/15 duloxetine 60 mg PO DAILY 12/29/15 pravastatin 40 mg PO QHS 08/05/18 fluticasone propionate 2 spray NASAL DAILY 03/18/19 primidone 50 mg PO TID 03/18/19 simethicone 80 mg PO TIDCM 03/18/19 mirabegron 50 mg PO QHS 01/24/20 famotidine 20 mg PO DAILY 03/23/20 gabapentin 400 mg PO TID 07/09/20 divalproex 500 mg PO BID #0 07/11/20 bupropion HCl 150 mg PO DAILY 08/09/20 alum-mag hydroxide-simeth 30 ml PO Q4H PRN PRN 08/20/20 oxybutynin chloride 10 mg PO DAILY 08/20/20 albuterol sulfate 2.5 mg INHALATION Q2H PRN PRN vial.neb. 08/22/20 acetaminophen 500 - 1,000 mg PO Q6H PRN PRN 09/28/20 ascorbic acid (vitamin C) 500 mg PO DAILY 09/28/20 oxycodone 5 mg PO Q4H PRN 09/28/20 apixaban 5 mg PO BID #60 tablet 10/02/20 methenamine hippurate 1 gm PO BID #180 tablet 10/02/20 cyanocobalamin (vitamin B-12) 1,000 mcg IM QMONTH 10/23/20 ferrous sulfate 325 mg PO DAILY 10/23/20 primidone 100 mg PO DAILY 10/23/20 furosemide 60 mg PO DAILY #0 tab 10/26/20 ciprofloxacin HCl [Cipro] 500 mg PO BID #14 tab 05/17/21 phenazopyridine [Pyridium] 100 mg PO TID #12 tab 11/06/20 Hospital Course Operations None Procedures None Summary of Care Provided Minutes Spent on Discharge: 31 Hospital Course: This 75-year-old white female was seen in the emergency room at [facility] with chief complaint of dysuria and lower abdominal pain, patient had a history of frequent UTIs and finished a course of antibiotics approximately 5 days prior. Patient's lab work showed a normal white blood cell count and renal function, urinalysis indicated a urinary tract infection. Urine culture was sent. Patient did not feel comfortable going back to assisted living. Patient was admitted to [place] [id number], she was placed on IV antibiotics, and follow-up CBC was unremarkable. Patient's urine culture came back positive for E. coli which was multidrug sensitive, patient was told she was going to go back to assisted living on oral antibiotics and became upset and started crying, she called her daughter stating that she was still having dysuria although she had told nursing just prior to my visit on 11/06/2020 that she had no dysuria. Patient requested that urology see her, I told her that I did not feel urology would be of any benefit in treating her and that she should go back to assisted living on a course of oral antibiotics. I did talk with her daughter by telephone (Alea) and told her that I would talk to the patient's urologist (Dr. Villavicencio) to see if anything further could be adjusted on the patient's medications. Urologist call me back a few hours later and told me that she did not have any recommendations presently and that she would see the patient in follow-up in her office. According to nursing, patient wipes herself from back to front because of her large body habitus and this examiner feels that this may be part of the reason why she keeps getting E. coli urinary tract infections. Patient had a post void residual bladder scan approximately an hour after she voided, result was 78 cc. On 11/06/2020, patient was seen and examined: On examination she appeared her stated age, she does not appear to be in any distress. Vital signs as documented. Skin warm and dry and without overt rashes. Neck without JVD, thyroid appears normal, trachea is midline, neck is supple. Lungs clear, normal air movement was noted. Heart exam notable for regular rhythm, normal sounds and absence of murmurs, rubs or gallops. Abdomen unremarkable and without evidence of organomegaly, masses, or abdominal aortic enlargement, bowel sounds are present in all 4 quadrants, no abdominal tenderness was noted. Extremities nonedematous, no cyanosis was noted, no clubbing was noted. Neuro: Cranial nerves II through XII are grossly intact, no focal motor deficits were noted, sensation to light touch and pinprick is intact, motor exam 5/5 throughout. Psych: Patient is alert and oriented x3, she has poor recall of medications that she takes, patient had emotional lability On 11/06/2020, patient was discharged back to assisted living in stable condition, I talked with her PCP (Dr. Pinto) and suggested the patient receive some counseling regarding depression and anxiety. ABG / Lab / Microbiology Data Result Diagrams: 11/05/20 06:37 11/05/20 06:37 Microbiology: Microbiology 11/06/20 10:00 SARS-CoV-2 Antigen (Rapid) - Final Mucosa - Nose 11/04/20 17:50 Urine Culture - Final Urine Catheter - Catheter Escherichia coli Microbiology 11/06/20 10:00 Mucosa - Nose SARS-CoV-2 Antigen (Rapid) - Final 11/04/20 17:50 Urine Catheter - Catheter Urine Culture - Final Escherichia coli Meaningful Use Info Meaningful Use Diagnoses (Choose all that apply): None applicable Discharge Plan Admission Admit Date/Time: 11/04/20 21:10 Primary Reason for Your Visit: CYSTITIS Attending Provider: Dewayne Orlando Primary Care Provider: Gonzales Pinto Discharge Orders/Prescriptions Prescriptions: New ciprofloxacin HCl [Cipro] 500 mg tablet 500 mg PO BID Qty: 14 RF: 0 phenazopyridine [Pyridium] 100 mg tablet 100 mg PO TID Qty: 12 RF: 0 Continued cholecalciferol (vitamin D3) [Vitamin D3] 1,000 UNIT tablet 1,000 unit PO DAILY RF: 0 duloxetine 60 MG capsule 60 mg PO DAILY RF: 0 pravastatin 40 MG tablet 40 mg PO QHS RF: 0 primidone 50 MG tablet 50 mg PO TID RF: 0 fluticasone propionate 1 SPRAY spray,suspension 2 spray NASAL DAILY RF: 0 simethicone 80 MG tablet 80 mg PO TIDCM RF: 0 mirabegron 50 MG tablet extended release 24 hr 50 mg PO QHS RF: 0 famotidine 20 MG tablet 20 mg PO DAILY RF: 0 gabapentin 400 MG capsule 400 mg PO TID RF: 0 divalproex 500 MG tablet,delayed release (DR/EC) 500 mg PO BID Qty: 0 RF: 0 bupropion HCl 150 MG tablet extended release 24 hr 150 mg PO DAILY RF: 0 alum-mag hydroxide-simeth 355 ML suspension 30 ml PO Q4H PRN PRN (Reason: GI DISTRESS) RF: 0 oxybutynin chloride 10 MG tablet extended release 24hr 10 mg PO DAILY RF: 0 albuterol sulfate 2.5 MG/3 ML solution for nebulization 2.5 mg INHALATION Q2H PRN PRN (Reason: Dyspnea, wheezing) RF: 0 oxycodone 5 MG tablet 5 mg PO Q4H PRN (Reason: Pain Score 1-10) RF: 0 ascorbic acid (vitamin C) 500 MG tablet 500 mg PO DAILY RF: 0 acetaminophen 500 MG tablet 500 - 1,000 mg PO Q6H PRN PRN (Reason: Pain Score 1-10) RF: 0 methenamine hippurate 1 GM tablet 1 gm PO BID Qty: 180 RF: 1 apixaban 5 MG tablet 5 mg PO BID Qty: 60 RF: 0 primidone 50 mg Tablet 100 mg PO DAILY RF: 0 cyanocobalamin (vitamin B-12) 1,000 mcg/mL Solution 1,000 mcg IM QMONTH RF: 0 ferrous sulfate 325 mg (65 mg iron) Tablet 325 mg PO DAILY RF: 0 furosemide 40 MG tablet 60 mg PO DAILY Qty: 0 RF: 0 Referrals / Follow Up: Gonzales Pinto MD [Primary Care Provider] - Within 2 Weeks Alejandra Villavicencio MD [STAFF PHYSICIAN] - Within 1 Month Disposition Discharge Orders: Discharge Patient (Routine); Ordered 11/06/20 Ordered By: Dr. Dewayne Orlando Visit Charges Inpatient E&M: [id number] [facility]
== END 2020-11-06 13:12 | disposition skilled nursing facility (03) | DRG 690 ==
LOC: ED 20:53 → MS3 21:14
PROVIDERS: Admitting Provider Hospitalist; Emergency Provider Emergency Medicine; PCP Family Medicine; Visit Provider Internal Medicine
DX: N30.00 Acute cystitis without hematuria (principal); Z68.42 Body mass index [BMI] 45.0-49.9, adult; Z16.24 Resistance to multiple antibiotics; B96.20 Unspecified Escherichia coli [E. coli] as the cause of diseases classified elsewhere; F32.9 Major depressive disorder, single episode, unspecified; N32.81 Overactive bladder; M19.90 Unspecified osteoarthritis, unspecified site; E78.5 Hyperlipidemia, unspecified; E66.01 Morbid (severe) obesity due to excess calories; I10 Essential (primary) hypertension; E11.42 Type 2 diabetes mellitus with diabetic polyneuropathy; Z79.01 Long term (current) use of anticoagulants; F41.9 Anxiety disorder, unspecified; G25.0 Essential tremor; G89.29 Other chronic pain; Z80.0 Family history of malignant neoplasm of digestive organs; Z82.49 Family history of ischemic heart disease and other diseases of the circulatory system; Z87.440 Personal history of urinary (tract) infections; Z90.49 Acquired absence of other specified parts of digestive tract; Z90.710 Acquired absence of both cervix and uterus; Z96.659 Presence of unspecified artificial knee joint
CPT/HCPCS: 36415; 80048; 81001; 83605; 85025; 87077; 87086; 87088; 87186; 87426; 97162; 97165; 99285; J2185; P9612; A4216

== ENCOUNTER 2020-11-16 21:44 | Emergency (ER) | payer MEDICARE, MEDICAID, SELFPAY ==
[2020-11-16 21:45] VITALS: BP 131/101; PULSE 84; RESP 18; TEMP 36.6; O2SAT 94; BMI 51.5
[2020-11-16 22:18] LABS: Mucous, Urine 0 SEEN /hpf (<or=2+)
[2020-11-16 22:38] LABS: Color, Urine Amber (Yellow); Glucose, Dipstick Normal (Normal); Ketone-Dipstick 5 mg/dl (Negative); Leukocyte Esterase-Dipstick 500 /ul (Negative); Nitrite-Dipstick Positive (Negative); Occult Blood-Urine 250 /ul (Negative); Protein-Dipstick 30 mg/dl (Negative); Specific Gravity, Urine 1.015 (1.002-1.030); Urine Bilirubin Dipstick Negative (Negative); Urine Clarity Sl. Cloudy (Clear); Urine Urobilinogen Normal (Normal)
[2020-11-16 22:45] LABS: Bacteria RARE /hpf (None Seen); Red Blood Cells-Urine > 100 SEEN /hpf (0-5); Squamous Epithelial Cells - UA 0-5 SEEN /hpf (5-10); White Blood Cells >100 SEEN /hpf (0-5)
--- NOTE | 2020-11-16 23:35 | EX.ED.GUMALE ---
HPI History of Present Illness Chief Complaint: Complaint Detail of Chief Complaint: UTI Informant: patient Pain Onset: Days Context: Gradual Onset Timing: Continuous Current Severity: Moderate Worsened by: Nothing Relieved by: Nothing Narrative Narrative: Patient has a history of chronic UTIs. She was evaluated twice previously this month. On the most recent visit, she had E. coli which was pansensitive. She recently completed a course of Cipro, 2 days ago. She denies fevers. She does have some suprapubic pain but no other symptoms. Prior similar symptoms: Yes Recent Illness/Hospitalization: Yes PFSH PFSH Medical History Arthritis Carpal tunnel syndrome Cataracts, both eyes Closed left arm fracture Depression Diabetes DVT (deep venous thrombosis) FHx: cholecystectomy GERD (gastroesophageal reflux disease) GI bleed Hearing loss, left Hearing loss, right Heart disease History of gallstones Hypertension Kidney stones Neuropathy Non-smoker Osteoarthritis Polycystic ovaries Pulmonary embolism Home Medications cholecalciferol (vitamin D3) [Vitamin D3] 1,000 unit PO DAILY 12/29/15 [History Last Taken 11/04/20] duloxetine 60 mg PO DAILY 12/29/15 [History Last Taken 11/04/20] pravastatin 40 mg PO QHS 08/05/18 [History Last Taken 11/03/20] fluticasone propionate 2 spray NASAL DAILY 03/18/19 [History Last Taken 11/04/20] primidone 50 mg PO TID 03/18/19 [History Last Taken 11/04/20] simethicone 80 mg PO TIDCM 03/18/19 [History Last Taken 11/04/20] mirabegron 50 mg PO QHS 01/24/20 [History Last Taken 11/03/20] famotidine 20 mg PO DAILY 03/23/20 [History Last Taken 11/04/20] gabapentin 400 mg PO TID 07/09/20 [History Last Taken 11/04/20] divalproex 500 mg PO BID #0 07/11/20 [Rx Last Taken 11/04/20] bupropion HCl 150 mg PO DAILY 08/09/20 [History Last Taken 11/04/20] alum-mag hydroxide-simeth 30 ml PO Q4H PRN PRN 08/20/20 [History Last Taken 10/22/20] oxybutynin chloride 10 mg PO DAILY 08/20/20 [History Last Taken 11/04/20] albuterol sulfate 2.5 mg INHALATION Q2H PRN PRN vial.neb. 08/22/20 [Rx Last Taken Unknown] acetaminophen 500 - 1,000 mg PO Q6H PRN PRN 09/28/20 [History Last Taken 10/22/20] ascorbic acid (vitamin C) 500 mg PO DAILY 09/28/20 [History Last Taken 11/04/20] oxycodone 5 mg PO Q4H PRN 09/28/20 [History Last Taken 10/22/20] apixaban 5 mg PO BID #60 tablet 10/02/20 [Rx Last Taken 11/04/20] methenamine hippurate 1 gm PO BID #180 tablet 10/02/20 [Rx Last Taken 11/04/20] cyanocobalamin (vitamin B-12) 1,000 mcg IM QMONTH 10/23/20 [History Last Taken 10/22/20] ferrous sulfate 325 mg PO DAILY 10/23/20 [History Last Taken 11/04/20] primidone 100 mg PO DAILY 10/23/20 [History Last Taken 11/04/20] furosemide 60 mg PO DAILY #0 tab 10/26/20 [Rx Last Taken 11/04/20] ciprofloxacin HCl [Cipro] 500 mg PO BID #14 tab 11/06/20 [Rx Last Taken Unknown] phenazopyridine [Pyridium] 100 mg PO TID #12 tab 11/06/20 [Rx Last Taken Unknown] cephalexin 500 mg PO Q6 #40 capsule 11/16/20 [Rx Last Taken Unknown] Allergy/AdvReac Type Severity Reaction Status Date / Time ampicillin [From Unasyn] Allergy Severe Other Verified 11/16/20 21:50 warfarin sodium Allergy Severe Low red Verified 11/16/20 21:50 [From Coumadin] blood cells Family History Father Colon cancer Hypertension Mother Hypertension Surgical History History of carpal tunnel surgery History of cholecystectomy History of embolic filter insertion History of hysterectomy Total knee replacement status Social History Smoking Status: Never smoker alcohol intake: current alcohol intake frequency: holidays/special occasions only substance use type: does not use what type of physical activity do you participate in: walking and aerobics frequency: 1-2 times per week ROS ROS ED Constitutional Constitutional ED: Denies chills or fever(s) Eyes Eyes: Reports systems reviewed and no addt'l complaints, except as documented ENT ENT ED: Reports systems reviewed and no addt'l complaints, except as documented Cardiovascular Cardiovascular: Reports systems reviewed and no addt'l complaints, except as documented Respiratory/Chest Respiratory/Chest: Reports systems reviewed and no addt'l complaints, except as documented Gastrointestinal Gastrointestinal: Reports systems reviewed and no addt'l complaints, except as documented Genitourinary Genitourinary ED: Reports burning urination Musculoskeletal Musculoskeletal: Reports systems reviewed and no addt'l complaints, except as documented Integumentary Reports systems reviewed and no addt'l complaints, except as documented Neurologic Neurologic: Reports systems reviewed and no addt'l complaints, except as documented Endocrine Endocrinology: Reports systems reviewed and no addt'l complaints, except as documented Hematologic/Lymphatic Hematologic/Lymphatic: Reports systems reviewed and no addt'l complaints, except as documented Allergic/Immunologic Allergic/Immunologic ED: Reports systems reviewed and no addt'l complaints, except as documented EXAM Physical Exam Const Vital Signs: 11/16/20 21:45 11/16/20 23:58 Temperature 97.9 F Temperature Source Oral Pulse Rate 84 Respiratory Rate 18 18 Blood Pressure 131/101 H Blood Pressure Mean 111 Pulse Ox 94 Oxygen Delivery Method Room Air Positive well nourished and well developed General Appearance ED: active, cooperative and well developed HEENT Reports normocephalic and head/scalp atraumatic Eyes EOMs intact bilaterally Resp normal respiratory effort Cardio regular rate and regular rhythm GI Palpation: soft and tender; Negative for guarding or rigid no CVA tenderness Neuro oriented x3 and CN's II-XII intact bilaterally MDM MDM MDM Narrative Medical decision making narrative: Patient is not septic based on her exam, symptoms, and vital signs. Urinalysis does show a UTI. She had a recent culture that showed E. coli which was pansensitive. She also had a previous infection with Klebsiella which was multidrug resistant. I believe it is reasonable at this time to treat with Keflex. She will continue with Pyridium. Follow-up with her doctor regarding the cultures. She will also follow-up with [facility]. I discussed the plan with Dr. Pinto who felt comfortable managing the patient as an outpatient and will follow up. Lab Data Attestation: I reviewed the patient's lab results. Labs: Laboratory Results - last 24 hr 11/16/20 22:10 Urine Color Alyssa Urine Clarity Sl. Cloudy Urine pH 6.0 Ur Specific [place] 1.015 Urine Protein 30 H Urine Glucose (UA) Normal Urine Ketones 5 H Urine Occult Blood 250 H Urine Nitrite Positive H Urine Bilirubin Negative Urine Urobilinogen Normal Ur Leukocyte Esterase 500 H Urine RBC > 100 SEEN Urine WBC >100 SEEN Ur Squamous Epith Cells 0-5 SEEN Urine Bacteria RARE Urine Mucus 0 SEEN Discharge Plan Triage Chief Complaint: Complaint ED Provider: Tony Miller Dx/Rx/DC Orders Clinical Impression: Chronic UTI Instructions: ED Bladder Infection, Female (Adult) Prescriptions: New cephalexin 500 mg capsule 500 mg PO Q6 Qty: 40 RF: 0 No Action cholecalciferol (vitamin D3) [Vitamin D3] 1,000 UNIT tablet 1,000 unit PO DAILY RF: 0 duloxetine 60 MG capsule 60 mg PO DAILY RF: 0 pravastatin 40 MG tablet 40 mg PO QHS RF: 0 primidone 50 MG tablet 50 mg PO TID RF: 0 fluticasone propionate 1 SPRAY spray,suspension 2 spray NASAL DAILY RF: 0 simethicone 80 MG tablet 80 mg PO TIDCM RF: 0 mirabegron 50 MG tablet extended release 24 hr 50 mg PO QHS RF: 0 famotidine 20 MG tablet 20 mg PO DAILY RF: 0 gabapentin 400 MG capsule 400 mg PO TID RF: 0 divalproex 500 MG tablet,delayed release (DR/EC) 500 mg PO BID Qty: 0 RF: 0 bupropion HCl 150 MG tablet extended release 24 hr 150 mg PO DAILY RF: 0 alum-mag hydroxide-simeth 355 ML suspension 30 ml PO Q4H PRN PRN (Reason: GI DISTRESS) RF: 0 oxybutynin chloride 10 MG tablet extended release 24hr 10 mg PO DAILY RF: 0 albuterol sulfate 2.5 MG/3 ML solution for nebulization 2.5 mg INHALATION Q2H PRN PRN (Reason: Dyspnea, wheezing) RF: 0 oxycodone 5 MG tablet 5 mg PO Q4H PRN (Reason: Pain Score 1-10) RF: 0 ascorbic acid (vitamin C) 500 MG tablet 500 mg PO DAILY RF: 0 acetaminophen 500 MG tablet 500 - 1,000 mg PO Q6H PRN PRN (Reason: Pain Score 1-10) RF: 0 methenamine hippurate 1 GM tablet 1 gm PO BID Qty: 180 RF: 1 apixaban 5 MG tablet 5 mg PO BID Qty: 60 RF: 0 primidone 50 mg Tablet 100 mg PO DAILY RF: 0 cyanocobalamin (vitamin B-12) 1,000 mcg/mL Solution 1,000 mcg IM QMONTH RF: 0 ferrous sulfate 325 mg (65 mg iron) Tablet 325 mg PO DAILY RF: 0 furosemide 40 MG tablet 60 mg PO DAILY Qty: 0 RF: 0 ciprofloxacin HCl [Cipro] 500 mg tablet 500 mg PO BID Qty: 14 RF: 0 phenazopyridine [Pyridium] 100 mg tablet 100 mg PO TID Qty: 12 RF: 0 Primary Care Provider: Gonzales Pinto Referrals: Gonzales Pinto MD [Primary Care Provider] - Disposition Disposition: Assisted Living
[2020-11-16] MEDS: Cephalexin 250 MG Capsule 500 MG PO (23:57)
[2020-11-16] MEDS: HYDROcodone Bitartrate/Apap 5/325 Tablet PO (23:57)
[2020-11-16 23:58] VITALS: RESP 18
== END 2020-11-17 00:48 | disposition home or self-care (01) ==
PROVIDERS: Emergency Provider Emergency Medicine; PCP Family Medicine
DX: N39.0 Urinary tract infection, site not specified (principal); Z87.440 Personal history of urinary (tract) infections; E11.36 Type 2 diabetes mellitus with diabetic cataract; F32.9 Major depressive disorder, single episode, unspecified; M19.90 Unspecified osteoarthritis, unspecified site; Z82.49 Family history of ischemic heart disease and other diseases of the circulatory system; Z79.01 Long term (current) use of anticoagulants
CPT/HCPCS: 81001; 87077; 87086; 87088; 87186; 99285

== ENCOUNTER → 2020-12-28 | Outpatient (REF) | payer MEDICARE, MEDICAID, SELFPAY ==
[2020-12-29 07:49] LABS: Color, Urine Yellow (Yellow); Glucose, Dipstick Normal (Normal); Ketone-Dipstick Negative (Negative); Leukocyte Esterase-Dipstick Negative /ul (Negative); Nitrite-Dipstick Negative (Negative); Occult Blood-Urine Negative /ul (Negative); Protein-Dipstick Negative (Negative); Urine Bilirubin Dipstick Negative (Negative); Urine Clarity Clear (Clear); Urine Urobilinogen Normal (Normal)
[2021-01-08 08:44] VITALS: BMI 50.8
== END | disposition home or self-care (01) ==
LOC: OLS.SWAL 17:00
PROVIDERS: PCP Family Medicine
DX: N39.0 Urinary tract infection, site not specified (principal)
CPT/HCPCS: 81002; 87086; 87088

== ENCOUNTER → 2021-01-04 02:00 | Outpatient (REF) | payer MEDICARE, MEDICAID, SELFPAY ==
[2021-01-04 07:23] LABS: Color, Urine Yellow (Yellow); Glucose, Dipstick Normal (Normal); Ketone-Dipstick Negative (Negative); Leukocyte Esterase-Dipstick 25 /ul (Negative); Nitrite-Dipstick Negative (Negative); Occult Blood-Urine 50 /ul (Negative); Protein-Dipstick 15 mg/dl (Negative); Specific Gravity, Urine 1.015 (1.002-1.030); Urine Bilirubin Dipstick Negative (Negative); Urine Clarity Clear (Clear); Urine Urobilinogen Normal (Normal)
== END ==
LOC: OLS.SWAL 02:00
PROVIDERS: PCP Family Medicine; Visit Provider Family Medicine
DX: N39.0 Urinary tract infection, site not specified (principal)
CPT/HCPCS: 81002; 87086; 87088

== ENCOUNTER 2021-01-08 07:53 | Day surgery (SDC) | payer MEDICARE, MEDICAID, SELFPAY ==
[2021-01-08] VITALS (7 sets, daily range): BP systolic 108–141; BP diastolic 55–71; PULSE 77–89; RESP 16; TEMP 36.5–36.7; O2SAT 95–99; BMI 50.8
[2021-01-08] MEDS: Lactated Ringers 1,000 ML 100 ML IV (08:50)
[2021-01-08 09:05] LABS: Bedside Glucose 85 mg/dL (70-110)
--- NOTE | 2021-01-08 09:30 | RAD_ITS ---
STUDY: X-RAY - RIGHT KNEE REASON FOR EXAM: Fluoroscopy for radiofrequency ablation of the right knee. TECHNIQUE: 4 fluoroscopic images of the knee. COMPARISON: Radiographs 05/27/2020. FINDINGS: There is a right total knee arthroplasty with overlying needles. 20.1 seconds of fluoroscopy time was used. Electronically Signed: Faraz Craig MD at 13:21 EDT Tel , Service support , RAD/Knee 1 or 2 Views
[2021-01-08] MEDS: Bupivacaine 0.25% 30 ML Vial (10:17)
[2021-01-08] MEDS: MethylPREDNISolone Acetate 40 MG/ML Vial IM (10:17)
[2021-01-08] MEDS: Lidocaine 1% (30 ml sdv) 30 ML Vial (10:17)
--- NOTE | 2021-01-08 16:23 | OP.PCM_ITS ---
Report of Operation Date of Procedure: 01/08/21 Description of Surgical Findings:: Date of Procedure: 01/08/21 Pre-Operative Diagnosis: Osteoarthritis of the right knee, chronic postoperative knee pain status post right total knee arthroplasty Post-Operative Diagnosis: Osteoarthritis of the right knee, chronic po stoperative knee pain status post right total knee arthroplasty Surgery/Procedure Performed:: Right knee radiofrequency ablation of the superior medial, superior lateral, inferior medial genicular nerves under fluoroscopic guidance Description of Surgical Findings:: DESCRIPTION OF PROCEDURE: History and physical of today was reviewed. Risks and benefits of the procedure were explained. The patient understood and agreed to proceed. Informed consent was obtained. IV inserted per routine protocol. The patient was taken to the operating room and placed in the supine position. The right knee was prepped and draped in a sterile fashion using iodine x3. Under fluoroscopy guidance on AP view, the right knee was visualized. The skin and subcutaneous tissue was anesthetized with approximately 15 mL of 1% lidocaine using a 25-gauge regular needle at the vicinity of the superomedial, superolateral, and inferomedial genicular nerves. Under direct visualization of fluoroscopy on AP view as well as lateral view, starting on the right superomedial, ending on the right inferomedial, passing through the right superolateral genicular nerves, using a 20-gauge 10 cm with a 10 mm curved act waqar tip radiofrequency ablation needle, the needle was passed through the skin. The tip of the needle was maneuvered and directed towards the diaphyseal junction of each corresponding nerve. Once tip of the needle was in the vicinity of the diaphysis and in contact with the bone, after confirmation on AP as well as lateral view and repeated negative aspiration for blood, radiofrequency ablation probe was then inserted at each level impedance was then recorded at the superior medial 303, at the superior lateral 315, at the inferior medial to 14 ohm, motor evoked potential was then initiated to 1.5 V without any motor response at each corresponding level, a total of 3 cc of 1% lidocaine were injected in divided doses between the 3 levels after repeated negative aspiration for blood the radiofrequency ablation probe was then reinserted after repeated confirmation on AP oblique as well as lateral view radiofrequency ablation was then initiated to 80 ?C for 90 seconds at each level once concluded the probe was then removed intact and a total of 6 mL of preservative-free 0.25% Marcaine with 40 mg of Depo-Medrol was injected in divided doses between those three levels. The needles were then removed intact. The patient experienced no sign or symptoms of intravascular injection. The patient experienced no paresthesia. The procedure was completed without any apparent difficulty or any complications. The patient appeared to tolerate it well. ASSESSMENT AND PLAN: This is a 75-year-old female with osteoarthritis of the right knee status post right knee radiofrequency ablation of the superior medial, superior lateral, inferior medial genicular nerves under fluoroscopic guidance, patient will continue her current medications, patient will follow in approximately 2 weeks for reevaluation. Type of Anesthesia: MAC Estimated Blood Loss (mL): Minimal Complications None.
== END 2021-01-08 11:34 ==
LOC: SDC 07:54 → AC 07:57
PROVIDERS: PCP Family Medicine; Referring Provider Anesthesiology Pain Medicine; Visit Provider Anesthesiology Pain Medicine
PROC: (CPT 64640; principal; 2021-01-08 09:25)
DX: M17.11 Unilateral primary osteoarthritis, right knee (principal); Z96.651 Presence of right artificial knee joint; G89.28 Other chronic postprocedural pain; M47.817 Spondylosis without myelopathy or radiculopathy, lumbosacral region; M51.37 Other intervertebral disc degeneration, lumbosacral region; M46.96 Unspecified inflammatory spondylopathy, lumbar region; Z79.891 Long term (current) use of opiate analgesic; M53.3 Sacrococcygeal disorders, not elsewhere classified; M25.551 Pain in right hip
CPT/HCPCS: 01991; 64640; 73560; 76000; 82962; J7120

== ENCOUNTER → 2021-01-17 05:00 | Outpatient (REF) | payer MEDICARE, MEDICAID, SELFPAY ==
[2021-01-08 08:44] VITALS: BMI 50.8
[2021-01-17 07:13] LABS: Hematocrit 35.7 % (37-47); Mean Corp Hgb Conc 30.8 g/dL (32-36); Mean Corpuscular Volume 94.2 fL (81-99); Platelet Count 186 K/mm3 (150-450); RBC Distribution Width CV 15.4 % (11.6-14.6); RBC Distribution Width SD 53.3 fl (35.1-43.9); Red Blood Count 3.79 M/mm3 (4.2-5.4); White Blood Count 3.8 K/mm3 (4.4-11.0)
[2021-01-17 07:49] LABS: Ferritin 32 ng/mL (8-252); Iron 45 ug/dL (50-170)
[2021-01-17 08:48] LABS: Vitamin B12 338 pg/mL (211-911)
== END ==
LOC: OLS.SWAL 05:00
PROVIDERS: PCP Family Medicine; Visit Provider Family Medicine
DX: D64.9 Anemia, unspecified (principal)
CPT/HCPCS: 36415; 82607; 82728; 83540; 85027

== ENCOUNTER → 2021-02-20 19:00 | Outpatient (REF) | payer MEDICARE, MEDICAID, SELFPAY | LOC: OLS.SWAL 19:00 | PROVIDERS: PCP Family Medicine | DX: N39.0 Urinary tract infection, site not specified (principal) | CPT/HCPCS: 87086; 87088 ==

== ENCOUNTER → 2021-02-23 12:00 | Outpatient (REF) | payer MEDICARE, MEDICAID, SELFPAY | LOC: OLS.SWAL 12:00 | PROVIDERS: PCP Family Medicine; Visit Provider Family Medicine | DX: N39.0 Urinary tract infection, site not specified (principal) | CPT/HCPCS: 87086; 87088 ==

== ENCOUNTER → 2021-05-09 12:15 | Outpatient (CLI) | payer MEDICARE, MEDICAID, SELFPAY ==
[2021-05-09 15:31] LABS: Absolute Lymphocyte Count 1.04 X10^3/uL (0.83-4.51); Absolute Neutrophil Count 3.5 X10^3/uL (2.0-7.7); Basophil# 0.04 X10^3/uL; Basophil% 0.7 % (0-1); Eosinophil# 0.16 X10^3/uL; Hematocrit 41.4 % (37-47); Hemoglobin 13.4 g/dL (12.0-15.0); Lymphocyte # 1.04 X10^3/ul (0.83-4.51); Lymphocyte % 19.4 % (19-41); Mean Corp Hgb Conc 32.4 g/dL (32-36); Mean Corpuscular Hgb 32.1 pg (27.0-32.0); Mean Corpuscular Volume 99.3 fL (81-99); Mean Platelet Vol. 10.2 fl (6.2-12.0); Monocyte# 0.57 X10^3/uL; Monocyte% 10.7 % (0-10); NRBC Flagged by Analyzer 0 % (0-5); Neutrophil # 3.52 X10^3/uL (2.7-7.7); Neutrophil % 65.8 % (47-70); Platelet Count 218 K/mm3 (150-450); Red Blood Count 4.17 M/mm3 (4.2-5.4); White Blood Count 5.4 K/mm3 (4.4-11.0)
[2021-05-09 15:45] LABS: Vitamin B12 847 pg/mL (211-911)
[2021-05-09 15:53] LABS: Ferritin 61 ng/mL (8-252); Iron 84 ug/dL (50-170)
== END ==
PROVIDERS: PCP Family Medicine; Referring Provider Family Medicine; Visit Provider Family Medicine
DX: E53.8 Deficiency of other specified B group vitamins (principal)
CPT/HCPCS: 36415; 82607; 82728; 83540; 85025

== ENCOUNTER 2021-05-28 08:43 | Day surgery (SDC) | payer MEDICARE, MEDICAID, SELFPAY ==
--- NOTE | 2021-05-25 15:25 | PCM.HP.BLA ---
History and Physical Date of Admission: 05/28/21 Chief Complaint: Follow up post caudal injection decreased pain by 100% History of Present Illness: This is a 76 Y/O Female who was evaluated by our office today as a follow up. Pain: low back,shaji hips,shaji knees (rt knee decreased w/inj) and neuropathy in legs/feet Quality: constant but varies in intensity Region: Pain in the lower back into shaji hips w/right hip being worse. Reports pain in shaji knees (right is decreased w/ablation).Neuropathy in her legs and feet. Severity: aching in back.Neuropathy in legs/feet-numbness,stinging/tingling,burning Timing: months Aggravated by: standing,walking Relieved by: ablation-knee Pain score (out of 10): 9/10 right leg Other info: Patient is here for a follow up-post caudal injection decreased pain by 100%. States she has no pain in lower back and bilateral hips. Reports pain in bilateral knees with more pain in the thigh above the right knee. Reports pain in her legs and feet from neuropathy. Review of Systems: Patient denies any fever, chills, headache or change in vision or hearing problems.No cp, sob, whipple, pnd, orthopnea, or peripheral edema.They note no lumps or swollen glands, no new rashes, changing moles, or change in bowel or bladder function.Mood has been good overall. Past Medical History: h/o thrombosis h/o vitamin D deficiency h/o fatigue h/o Arthritis h/o osteoporosis h/o anxiety h/o cellulitis 10/2019 h/o UTI 10/2019 h/o anemia 2020 s/p tonsillectomy 1953 s/p left arm fracture 1952 s/p Shaji TKR rt 2011,lt 2012 s/p hysterectomy 1999 s/p gastric bypass 2010 s/p Cholecystectomy 1994 Family History: ======== Structured Family History ======== Family History: diabetes mellitus,cancer,hypertension Social History: [Tobacco: Never smoker Pipe Smoker: No Cigar Smoker: No Chewing Tobacco User: No Electronic Cigarette User: No] Living situation: Occupation: Retired Tobacco: Denies EtOH: Occasional Rec. drugs: Denies Allergies: Ampicillin, Coumadin Medications: 1) acetaminophen 500 mg oral tablet, Take 1 tablet by mouth once daily 2) albuterol 2.5 mg/3 mL (0.083%) inhalation solution, as directed q4 hrs prn 3) aluminum hydroxide-magnesium hydroxide 200 mg-200 mg/5 mL oral suspension, 30ml q4 hrs prn 4) belladonna-opium 16.2 mg-30 mg rectal suppository, q8 hrs as directed prn 5) cholecalciferol 1000 intl units (25 mcg) oral tablet, Take 1 tablet by mouth every morning 6) Cymbalta 30 mg oral delayed release capsule, Take 1 tablet by mouth once daily 7) Cymbalta 60 mg oral delayed release capsule, Take 1 tablet by mouth once daily 8) Depakote 500 mg oral delayed release tablet, Take 1 tablet by mouth 2 times a Day 9) D-Mannose capsule 500mg, Take 2 capsules by mouth 2 times a Day 10) Eliquis 5 mg oral tablet, Take 1 tablet by mouth 2 times a Day 11) Estradiol Cream SKILLED NURSING, as directed in pm 12) famotidine 20 mg oral tablet, Take 1 tablet by mouth 2 times a Day prn as directed 13) ferrous sulfate 325 mg (65 mg elemental iron) oral tablet, Take 1 tablet by mouth 2 times a Day 14) fleet enema, x2 per episode prn 15) Flonase 50 mcg/inh nasal spray, 2 sprays each nostril qam 16) guaifenesin-dextromethorphan 100 mg-10 mg/5 mL oral liquid, 10 ml q4 hrs prn 17) hydrocodone-acetaminophen 5 mg-325 mg oral tablet, One tablet daily to bid PRN PAIN 18) lactobacillus acidophilus oral capsule, Take 1 tablet by mouth once daily 19) Lasix 40 mg oral tablet, Take 1 tablet by mouth once daily 20) Melatonin 3 mg oral tablet, Take 1 tablet by mouth every evening 21) methenamine hippurate, Take 1 tablet by mouth 2 times a Day 22) Milk of Magnesia 8% oral suspension, 30ml po prn 23) MiraLax oral powder for reconstitution, 17 gm po prn as directed 24) Myrbetriq 50 mg oral tablet, extended release, Take 1 tablet by mouth every evening 25) Neurontin 400 mg oral capsule, Take 1 tablet by mouth 3 Times a Day 26) nystatin 100,000 units/mL oral suspension, 5ml 6 hrs prn 27) omeprazole 40 mg oral delayed release capsule, Take 1 tablet by mouth 2 times a Day 28) phenazopyridine 200 mg oral tablet, Take 1 tablet by mouth 2 times a Day prn 29) pravastatin 40 mg oral tablet, Take 1 tablet by mouth every evening 30) primidone 50 mg oral tablet, Take 2 tablet by mouth every evening 31) PT to eval and treat, for strengthening of her lumbar spine and for SI joint pain. 32) robitussin DM sugar free, 10ml po q4 hrs prn 33) Senna 8.6 mg oral tablet, Take 1 tablet by mouth prn 34) simethicone 80 mg oral tablet, chewable, Take 1 tablet by mouth once daily 35) Toviaz 4 mg oral tablet, extended release, Take 1 tablet by mouth every morning 36) VESIcare 10 mg oral tablet, Take 1 tablet by mouth every morning 37) Vitamin B12 injection, once a month 38) Vitamin C 500 mg oral tablet, Take 1 tablet by mouth every morning 39) Wellbutrin XL 150 mg/24 hours oral tablet, extended release, Take 1 tablet by mouth every morning Physical Examination: Wt: 302 lb Ht/Ln: 65.5 in BMI: 49.5 BP: 109/68 Pulse: 84 RR: 16 Temp: 97.5F Well nourished and well developed in no acute distress. Alert and oriented to person, place and time. Affect is normal and appropriate. Mucosa pink and moist. Respirations even and unlabored. Neck is supple without significant lymphadenopathy or thyromegaly. Abdomen soft & non-tender. No HSM or masses appreciated. Extremities show no cyanosis, clubbing, or edema. Gait is Antalgic with a walker. Pain elicited with light palpation of right hip Pain elicited with light palpation to right knee improved Lumbar paraspinal muscle tenderness Lumbar ROM is limited due to pain Bilateral lumbar facet loading is positive Motor and sensory exam is unchanged. 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 OARRS was reviewed today. UDS was performed today and will be reviewed on the next encounter to monitor pt medications compliance SOAPP score is 1. There are no signs of diversion or addiction with the pt, there is also no signs of abuse or misuse, continues to do well with their medications without any side effects, we will continue monitoring the pt closely. Life style modifications were also discussed today and the pt appears to understand. Weight loss was recommended today through diet and exercise. Risks and benefits of the above meds were discussed with the pt and they appear to understand. The common side effects of the medications were discussed and all of their questions and concerns were answered and they appear to understand. Pt has tried multiple modalities in the past with little or no success, will schedule the pt for a therapeutic/diagnostic a right hip intra articular steroid injection under fluoroscopy We have discussed the risks, benefits as well as alternatives of the procedure and the patient appears to understand and would like to proceed with the above plan. The above plan was discussed today with the pt in details and they appear to understand and agrees to continue with the plan.
[2021-05-28] MEDS: Lactated Ringers 1,000 ML 15 ML IV (09:00)
[2021-05-28 09:14] VITALS: BP 122/64; PULSE 82; RESP 16; TEMP 36.4; O2SAT 95; BMI 49.5
--- NOTE | 2021-05-28 09:50 | RAD_ITS ---
STUDY: HIP INJECTION RIGHT REASON FOR EXAM: Female, 76 years old. RT HIP INJECTION FLUOROSCOPY TIME (if supplied): ( 11.8 seconds ) minutes/seconds. 2 images were obtained. TECHNIQUE: Intraoperative images are provided for right hip injection. COMPARISON: None. FINDINGS: Intraoperative imaging provided for right hip injection. RAD/Fluoro Guided Needle Placement IMPRESSION: Intraoperative imaging provided for right hip injection. Electronically Signed: Joshua Rosario MD at 12:32 EST , Service support ,
[2021-05-28] MEDS: MethylPREDNISolone Acetate 80 MG/ML Vial (10:00)
[2021-05-28] MEDS: Bupivacaine 0.25% 30 ML Vial (10:00)
[2021-05-28] MEDS: Lidocaine 1% (5 ml sdv) 5 ML Vial (10:00)
--- NOTE | 2021-05-28 10:03 | PCM.OPRPT ---
Report of Operation Date of Procedure: 05/28/21 Description of Surgical Findings:: PREOPERATIVE DIAGNOSIS: Osteoarthritis of the right hip POSTOPERATIVE DIAGNOSIS: Osteoarthritis of the right hip PROCEDURE PERFORMED: Right hip intraarticular steroid injection under fluoroscopy guidance. ANESTHESIA: MAC. BLOOD LOSS: Minimal. COMPLICATIONS: None. DESCRIPTION OF PROCEDURE: History and physical of today was reviewed. Risks and benefits of the procedure were explained. The patient understood and agreed to proceed. Informed consent was obtained. IV inserted per routine protocol. The patient was taken to the operating room and placed in the supine position. The right hip area was prepped and draped in a sterile fashion using iodine x3. Under fluoroscopy guidance on AP view, the right hip joint was visualized. The skin and subcutaneous tissue was anesthetized with approximately 3 mL of 1% lidocaine using a 25-gauge regular needle approximately 3 cm cephalad to the right greater trochanter. Under direct visualization with fluoroscopy on an AP view, using a 22-gauge 6-inch spinal needle, the needle was advanced via the skin using the lateral approach. The tip of the needle was maneuvered and directed towards the superiormost aspect of the hip joint. Once the tip of the needle was at the vicinity of the joint, after negative aspiration for blood and positive aspiration of synovial fluid, a total of 1 mL of contrast was injected to confirm correct placement of the needle as well as halo spread around the hip joint. After repeated negative aspiration for blood and confirmation on AP as well as oblique view, a total of 10 mL of preservative-free 0.25% Marcaine with 80 mg of Depo-Medrol was injected easily. The needle was then removed intact. The patient experienced no sign or symptoms of intrathecal or intravascular injection. The patient experienced no paresthesia. The procedure was completed without any apparent difficulty or any complications. The patient appeared to tolerate it well. ASSESSMENT AND PLAN: This is a 76-year-old female with osteoarthritis of the right hip status post right hip intra-articular steroid injection under fluoroscopic guidance, patient will continue her current medications, patient will follow in approximately 2 weeks for reevaluation.
[2021-05-28 10:08] VITALS: BP 122/64; BP 146/119; PULSE 83; RESP 16; TEMP 36.4; O2SAT 98
[2021-05-28 10:15] VITALS: BP 111/49; BP 122/64; PULSE 81; RESP 16; O2SAT 94
[2021-05-28 10:20] VITALS: BP 110/86; BP 122/64; PULSE 79; RESP 16; O2SAT 95
[2021-05-28 10:25] VITALS: BP 114/71; BP 122/64; PULSE 78; RESP 16; TEMP 36.6; O2SAT 95
[2021-05-28 10:45] VITALS: BP 122/64
== END 2021-05-28 10:52 | disposition home or self-care (01) ==
LOC: SDC 08:45 → AC 08:46
PROVIDERS: PCP Family Medicine; Referring Provider Anesthesiology Pain Medicine; Visit Provider Anesthesiology Pain Medicine
PROC: 3E0U3GC Introduction of Other Therapeutic Substance into Joints, Percutaneous Approach (ICD-10-PCS; CPT 20610; principal; 2021-05-28 10:15)
DX: M47.817 Spondylosis without myelopathy or radiculopathy, lumbosacral region (principal); M51.37 Other intervertebral disc degeneration, lumbosacral region; M54.17 Radiculopathy, lumbosacral region; M46.96 Unspecified inflammatory spondylopathy, lumbar region; G89.28 Other chronic postprocedural pain; Z79.891 Long term (current) use of opiate analgesic; Z96.653 Presence of artificial knee joint, bilateral; M16.11 Unilateral primary osteoarthritis, right hip; M53.3 Sacrococcygeal disorders, not elsewhere classified
CPT/HCPCS: 64451; 76000; 77002; J7120

== ENCOUNTER → 2021-07-03 05:00 | Outpatient (REF) | payer MEDICARE, MEDICAID, SELFPAY ==
[2021-07-03 09:03] LABS: ALB/GLOB Ratio 0.9 RATIO (0.9-2.4); AST(SGOT) 13 U/L (15-37); Alanine Aminotransfer ALT/SGPT 21 U/L (13-56); Albumin, Serum 2.8 g/dL (3.2-5.0); Alkaline Phosphatase 149 U/L (45-117); Anion Gap 8 (5-15); BUN 22 mg/dL (7-18); BUN/Creat Ratio 31.7 RATIO (10-20); Calcium,Total 8.2 mg/dL (8.5-10.1); Chloride 105 mmol/L (98-107); Cholesterol 146 mg/dL (200); Creatinine, Serum 0.69 mg/dL (0.55-1.02); EST Glomerular Filtration Rate 88 mL/min (>60); Est Glom Filt Rate - Afr Amer 106 mL/min (>60); Globulin 3.1 g/dL (2.2-4.2); Glucose 79 mg/dL (74-106); High Density Lipoprotein 70 mg/dL; Potassium 4.5 mmol/L (3.5-5.1); Protein, Total 5.9 g/dL (6.4-8.2); Sodium Level 140 mmol/L (136-145); Thyroid Stim Hormone (TSH) 2.48 uIU/mL (0.358-3.74); Triglycerides 73 mg/dL; Very Low Density Lipoprotein 15 mg/dL (5-40)
== END ==
LOC: OLS.SWAL 05:00
PROVIDERS: PCP Family Medicine; Visit Provider Family Medicine
DX: E11.9 Type 2 diabetes mellitus without complications (principal); K21.9 Gastro-esophageal reflux disease without esophagitis; E78.6 Lipoprotein deficiency; N39.0 Urinary tract infection, site not specified; E87.6 Hypokalemia
CPT/HCPCS: 36415; 80053; 80061; 84443

== ENCOUNTER 2021-07-07 11:02 | Outpatient (CLI) | payer MEDICARE, MEDICAID, SELFPAY | END 2021-07-07 23:59 | disposition short-term general hospital (02) | PROVIDERS: PCP Family Medicine; Visit Provider Family Medicine | DX: N39.0 Urinary tract infection, site not specified (principal) | CPT/HCPCS: 87086; 87088 ==

== ENCOUNTER 2021-07-21 15:10 | Emergency (ER) | payer MEDICARE, MEDICAID, SELFPAY ==
--- NOTE | 2021-07-21 19:00 | CT_ITS ---
HISTORY: FLANK PAIN EXAMINATION: CT Abdomen And Pelvis W/O Contrast Injection TECHNIQUE: Multiple axial images were obtained of the abdomen and pelvis without oral or IV contrast. A radiation dose optimization technique was used for this scan. IV Contrast dosage and agent: None. Oral contrast: None. COMPARISON: 08/20/20 FINDINGS: LOWER CHEST: Lung bases are clear. No cardiomegaly or pericardial effusion. Small hiatal hernia. LIVER: Homogeneous. No focal mass. GALLBLADDER AND BILIARY TREE: Cholecystectomy. No intra- or extrahepatic biliary ductal dilation. PANCREAS: No focal cystic or solid mass. SPLEEN: Normal size without focal cystic or solid mass. ADRENAL GLANDS: No nodules. KIDNEYS AND URETERS: Nonobstructing right renal calculi including 14 mm calculus in the prominent right extrarenal pelvis. No hydronephrosis. PERITONEUM: No ascites or free air. BOWEL: No evidence of acute appendicitis. No stomach or bowel distension. No focal inflammatory bowel wall changes. Prior gastric surgery. LYMPH NODES: No enlarged mesenteric or retroperitoneal lymph nodes. VESSELS: Aorta is non-dilated. Stable IVC filter. URINARY BLADDER: Unremarkable. REPRODUCTIVE ORGANS: No pelvic masses. Uterus absent. ABDOMINAL WALL: Stable supraumbilical ventral hernia containing fat and small bowel loop and smaller, proximal fat-containing ventral hernia. BONES: No acute or aggressive abnormality. CT/Abdomen/Pelvis without Cont IMPRESSION: Nonobstructing right nephrolithiasis. The 14 mm calculus in the prominent right extrarenal pelvis may produce intermittent [id number] symptoms. Individualized dose optimization techniques were used for this CT. at 2056 Reported and signed by: Manjit Shen MD Electronically Signed: Manjit Shen MD at 20:55 EST ,
[2021-07-21 19:28] LABS: Mucous, Urine 0 SEEN /hpf (<or=2+)
[2021-07-21 19:33] LABS: Color, Urine Yellow (Yellow); Glucose, Dipstick Normal (Normal); Ketone-Dipstick Negative (Negative); Leukocyte Esterase-Dipstick 100 /ul (Negative); Nitrite-Dipstick Negative (Negative); Occult Blood-Urine 250 /ul (Negative); Protein-Dipstick 15 mg/dl (Negative); Specific Gravity, Urine 1.015 (1.002-1.030); Urine Bilirubin Dipstick Negative (Negative); Urine Clarity Clear (Clear); Urine Urobilinogen Normal (Normal)
[2021-07-21 20:08] LABS: AST(SGOT) 12 U/L (15-37); Alanine Aminotransfer ALT/SGPT 16 U/L (13-56); Alkaline Phosphatase 148 U/L (45-117); Anion Gap 6 (5-15); BUN 17 mg/dL (7-18); BUN/Creat Ratio 23.1 RATIO (10-20); Calcium,Total 8.2 mg/dL (8.5-10.1); Chloride 107 mmol/L (98-107); Creatinine, Serum 0.74 mg/dL (0.55-1.02); EST Glomerular Filtration Rate 82 mL/min (>60); Est Glom Filt Rate - Afr Amer 99 mL/min (>60); Glucose 92 mg/dL (74-106); Potassium 4.5 mmol/L (3.5-5.1); Sodium Level 139 mmol/L (136-145)
--- NOTE | 2021-07-21 21:57 | EDS_ITS ---
DATE OF SERVICE 07/21/21 CHIEF COMPLAINT: Right flank pain. HISTORY OF PRESENT ILLNESS: This patient is a 76-year-old female who presents with right flank pain that has been constant for the past two weeks. The patient states that it kind of came on gradually. The patient states that her pain is sharp. The patient states that the pain is over the right upper quadrant and right flank area. The patient states that nothing makes it better and nothing makes it worse. The patient denies any fever or chills. The patient denies any dysuria or hematuria. The patient denies any nausea or vomiting. PAST MEDICAL HISTORY: Right kidney stone. PAST SURGICAL HISTORY: Cholecystectomy, hysterectomy, gastric bypass, bilateral total knee replacement, tonsillectomy, and open reduction and internal fixation left forearm fracture. ALLERGIES: Coumadin and penicillin. SOCIAL HISTORY: The patient denies any smoking, alcohol use or drug use. REVIEW OF SYSTEMS: GENERAL: The patient denies any fevers or chills. EYES: The patient denies blurry vision or diplopia. ENT: The patient denies any sore throat or rhinorrhea. CARDIOVASCULAR: Denies chest pain or palpitations. RESPIRATORY: The patient denies any shortness of breath or cough. GI: The patient denies any nausea or vomiting. : The patient does admit to some dysuria and hematuria. MUSCULOSKELETAL: The patient admits to some right back and flank pain. The patient denies any neck pain. SKIN: The patient denies any rash or abscess. NEUROLOGIC: The patient denies any headache or weakness. ALLERGIES: The patient denies urticaria or swelling. PHYSICAL EXAMINATION: GENERAL: The patient is in no acute distress. VITAL SIGNS: Stable, afebrile. HEENT: Oral mucosa is pink and moist . NECK: Supple. Trachea is midline. LUNGS: Clear and equal bilaterally. HEART: Regular rate and rhythm. ABDOMEN: Soft. Bowel sounds are normal. There is right upper quadrant tenderness. No rebound or guarding noted. MUSCULOSKELETAL: There is right cva tenderness. NEUROLOGIC: The patient is awake, alert and oriented x3. Cranial nerves II-XII are intact. There are no focal motor or sensory deficits noted. DIAGNOSTIC DATA: CT scan of the abdomen and pelvis was obtained. There was a large right renal calculus. There is no evidence of obstruction. CBC was within normal limits. Comprehensive metabolic profile was essentially within normal limits. Urinalysis shows leukocyte esterase of 100 and occult blood of 250. There were 10-25 WBC and 25-50 RBC. EMERGENCY DEPARTMENT COURSE AND MEDICAL DECISION MAKING: The patient was given a dose of morphine and Zofran initially. The patient states that it did help, but her pain started to return. The patient was given repeat doses of morphine. The patient was advised of her findings. IMPRESSION: Right flank pain. DISPOSITION/PLAN: She will be covered with Macrobid for urinary tract infection. Urine culture was ordered. The patient was also given a prescription for Percocet. The patient was instructed to follow up with Dr. Villavicencio, as she has seen her in the past for a kidney stone. The patient understood and was agreeable with the plan. All questions were answered. The patient was discharged in stable condition.
[2021-07-22 08:45] LABS: Absolute Lymphocyte Count 1.33 X10^3/uL (0.83-4.51); Absolute Neutrophil Count 2.9 X10^3/uL (2.0-7.7); Basophil# 0.05 X10^3/uL; Eosinophil# 0.14 X10^3/uL; Eosinophils% 2.9 % (0-5); Hematocrit 41.6 % (37-47); Hemoglobin 13.1 g/dL (12.0-15.0); Lymphocyte # 1.33 X10^3/ul (0.83-4.51); Lymphocyte % 27.2 % (19-41); Mean Corp Hgb Conc 31.5 g/dL (32-36); Mean Corpuscular Hgb 31.4 pg (27.0-32.0); Mean Corpuscular Volume 99.8 fL (81-99); Mean Platelet Vol. 10.6 fl (6.2-12.0); Monocyte# 0.48 X10^3/uL; Monocyte% 9.8 % (0-10); NRBC Flagged by Analyzer 0 % (0-5); Neutrophil # 2.87 X10^3/uL (2.7-7.7); Neutrophil % 58.7 % (47-70); Platelet Count 217 K/mm3 (150-450); RBC Distribution Width CV 13.2 % (11.6-14.6); RBC Distribution Width SD 48.7 fl (35.1-43.9); Red Blood Count 4.17 M/mm3 (4.2-5.4); White Blood Count 4.9 K/mm3 (4.4-11.0)
[2021-07-22 08:49] LABS: Bacteria RARE /hpf (None Seen); Calcium Oxalate Crystals Ur RARE /hpf (<or=2+); Red Blood Cells-Urine 25-50 SEEN /hpf (0-5); Squamous Epithelial Cells - UA 0-5 SEEN /hpf (5-10); White Blood Cells 10-25 SEEN /hpf (0-5)
== END 2021-07-21 23:00 | disposition home or self-care (01) ==
LOC: ED 18:44
PROVIDERS: Emergency Provider Emergency Medicine; PCP Family Medicine; Visit Provider Emergency Medicine
DX: R10.11 Right upper quadrant pain (principal); N39.0 Urinary tract infection, site not specified; Z87.442 Personal history of urinary calculi; Z90.49 Acquired absence of other specified parts of digestive tract; Z90.710 Acquired absence of both cervix and uterus; Z98.84 Bariatric surgery status
CPT/HCPCS: 74176; 80053; 81001; 85025; 87086; 87088

== ENCOUNTER 2021-07-24 13:47 | Inpatient (IN) | payer MEDICARE, MEDICAID, SELFPAY ==
[2021-07-24 13:57] VITALS: BP 125/69; PULSE 86; RESP 18; TEMP 36.6; O2SAT 92; BMI 50.7
--- NOTE | 2021-07-24 15:21 | CT_ITS ---
STUDY: CT ABDOMEN AND PELVIS WITHOUT CONTRAST REASON FOR EXAM: Female, 76 years old. right flank pain -- renal stone and urinary infection. worsened pain RADIATION DOSAGE (If Supplied By Facility): CTDIvol = ( 30.97 ) mGy, DLP = ( 1625.04 ) mGycm TECHNIQUE: Transaxial images were obtained from the dome of the diaphragm to the symphysis pubis without oral contrast, and without intravenous contrast. Sagittal and coronal images were reconstructed. Individualized dose optimization techniques were used for this CT. COMPARISON: 07/21/2021 FINDINGS: The visualized lung bases are unremarkable. The visualized portions of the heart are within normal limits. Normal liver. There is non-visualization of the gallbladder, which may be secondary to either contraction or a prior cholecystectomy. Normal spleen. Normal pancreas. Normal bilateral adrenal glands. 7 mm right renal pelvis calculus stable. 3 mm right renal calculus on image 87 of series 2 is also stable. No natan hydronephrosis. Stable right extrarenal pelvis (no dilated calyces). Bilateral hypodense) simple) in hyperdense (proteinaceous) cysts are stable. No required imaging follow-up needed given high likelihood of benign nature. Status post gastric bypass surgery. Normal small intestine. No colon wall thickening. There is non-visualization of the appendix. There is diffuse atherosclerotic calcification of the abdominal aorta, without a demonstrated aneurysm. There is an IVC filter in place. Normal retroperitoneum. Normal urinary bladder. There is absence of the uterus consistent with a prior hysterectomy. Abdominal wall hernia containing a portion of small bowel is seen on image 104 of series 2, stable. There are diffuse degenerative changes of the visualized lumbar spine. CT/Abdomen/Pelvis without Cont IMPRESSION: 1. Since 07/21/2021, stable exam. Nonobstructing right renal calculi. Electronically Signed: Dillon Graham MD (Brooks) at 16:20 EST ,
--- NOTE | 2021-07-24 15:22 | EDS_ITS ---
HPI History of Present Illness Chief Complaint: Abd Pain Detail of Chief Complaint: Right flank pain Informant: patient Onset/Context/Timing Onset: Weeks Context: Gradual Onset Current Severity: Moderate Maximum Severity: Moderate Narrative Narrative: Patient presents secondary to continued right flank pain. Patient w as seen in the ER 2 days ago with a 2-week history of right flank pain. She was found to have large right renal stone as well as UTI. Patient is currently on Percocet and Macrobid. She states the pain was worse today and not controlled with her Percocet. She was too weak to walk. She is currently in assisted living facility stated if she could not walk she cannot come back to assisted living. Patient denies having fever or chills. No vomiting or diarrhea. No dysuria. [facility] Medical History Arthritis Carpal tunnel syndrome Cataracts, both eyes Closed left arm fracture Depression Diabetes DVT (deep venous thrombosis) FHx: cholecystectomy GERD (gastroesophageal reflux disease) GI bleed Hearing loss, left Hearing loss, right Heart disease History of gallstones Hypertension Kidney stones Neuropathy Non-smoker Osteoarthritis Polycystic ovaries Pulmonary embolism Home Medications cholecalciferol (vitamin D3) [Vitamin D3] 1,000 unit PO DAILY 12/29/15 [History Last Taken 11/04/20] duloxetine 90 mg PO DAILY 12/29/15 [History Last Taken 11/04/20] pravastatin 40 mg PO QHS 08/05/18 [History Last Taken 11/03/20] fluticasone propionate 2 spray NASAL DAILY 03/18/19 [History Last Taken 11/04/20] primidone 100 mg PO TID 03/18/19 [History Last Taken 11/04/20] simethicone 80 mg PO TIDCM 03/18/19 [History Last Taken 11/04/20] mirabegron 100 mg PO QHS 01/24/20 [History Last Taken 11/03/20] famotidine 20 mg PO DAILY 03/23/20 [History Last Taken 11/04/20] gabapentin 400 mg PO TID 07/09/20 [History Last Taken 05/28/21] divalproex 500 mg PO BID #0 07/11/20 [Rx Last Taken 11/04/20] bupropion HCl 150 mg PO DAILY 08/09/20 [History Last Taken 11/04/20] alum-mag hydroxide-simeth 30 ml PO Q4H PRN PRN 08/20/20 [History Last Taken 10/22/20] albuterol sulfate 2.5 mg INHALATION Q2H PRN PRN vial.neb. 08/22/20 [Rx Last Taken Unknown] acetaminophen 500 - 1,000 mg PO Q6H PRN PRN 09/28/20 [History Last Taken 10/22/20] ascorbic acid (vitamin C) 500 mg PO DAILY 09/28/20 [History Last Taken 11/04/20] apixaban 5 mg PO BID #60 tablet 10/02/20 [Rx Last Taken 11/04/20] methenamine hippurate 1 gm PO BID #180 tablet 10/02/20 [Rx Last Taken 11/04/20] cyanocobalamin (vitamin B-12) 1,000 mcg IM QMONTH 10/23/20 [History Last Taken 07/02/21] ferrous sulfate 325 mg PO DAILY 10/23/20 [History Last Taken 11/04/20] furosemide 60 mg PO DAILY #0 tab 10/26/20 [Rx Last Taken 11/04/20] Probiotic 1 cap PO/SL DAILY 07/24/21 [History Last Taken Unknown] belladonna alkaloids-opium 1 supp NH TID PRN 07/24/21 [History Last Taken Unknown] d-mannose 1,000 mg PO BID 07/24/21 [History Last Taken Unknown] fesoterodine [Toviaz] 4 mg PO DAILY 07/24/21 [History Last Taken Unknown] nitrofurantoin monohyd/m-cryst [Macrobid] 100 mg PO BID 07/24/21 [History Last Taken Unknown] omeprazole 40 mg PO DAILY 07/24/21 [History Last Taken Unknown] oxycodone-acetaminophen 1 tab PO Q6H PRN PRN 07/24/21 [History Last Taken Unknown] phenazopyridine [Pyridium] 200 mg PO BID 07/24/21 [History Last Taken Unknown] Allergy/AdvReac Type Severity Reaction Status Date / Time ampicillin [From Unasyn] Allergy Severe Other Verified 07/24/21 14:00 warfarin sodium Allergy Severe Low red Verified 07/24/21 14:00 [From Coumadin] blood cells Family History Father Colon cancer Hypertension Mother Hypertension Surgical History History of carpal tunnel surgery History of cholecystectomy History of embolic filter insertion History of hysterectomy Total knee replacement status Social History Smoking Status: Never smoker alcohol intake: current alcohol intake frequency: holidays/special occasions only substance use type: does not use what type of physical activity do you participate in: walking and aerobics frequency: 1-2 times per week ROS ROS ED Constitutional Constitutional ED: Denies chills or fever(s) Eyes Eyes: Denies change in vision ENT ENT ED: Denies sore throat Cardiovascular Cardiovascular: Denies chest pain Respiratory/Chest Respiratory/Chest: Denies cough or dyspnea Gastrointestinal Gastrointestinal: Reports abdominal pain; Denies diarrhea, nausea or vomiting Genitourinary Genitourinary ED: Denies dysuria Musculoskeletal Musculoskeletal: Reports back pain Integumentary Denies rash Neurologic Neurologic: Reports weakness; Denies headache(s) Allergic/Immunologic Allergic/Immunologic ED: Denies urticaria EXAM Physical Exam Const Vital Signs: 07/24/21 13:57 07/24/21 15:32 Temperature 97.8 F 96.5 F L Temperature Source Temporal Temporal Pulse Rate 86 85 Respiratory Rate 18 17 Blood Pressure 125/69 H 123/58 H Blood Pressure Mean 87 79 Pulse Ox 92 97 Oxygen Delivery Method Room Air Room Air Positive obese Nutritional Appearance: obese HEENT Reports moist mucous membranes Eyes PERRL and EOMs intact bilaterally Neck supple Chest Wall inspection of chest normal and palpation of chest normal Resp normal respiratory effort and clear to auscultation bilaterally Cardio regular rate and regular rhythm GI non-tender Palpation: soft Extremity normal to inspection Neuro oriented x3 Sensorium / Orientation: alert Psych mental status grossly normal Skin no rashes or lesions noted MDM MDM MDM Narrative Medical decision making narrative: Patient took Percocet this morning for pain. She was given 50 mcg of fentanyl with EMS and I gave her IV morphine here for pain control. Lab work, urinalysis, CT flank obtained. Lab Data Attestation: I reviewed the patient's lab results. Labs: Laboratory Results - last 24 hr 02/07/1407/24/21 07/24/21 15:00 15:00 15:00 WBC 3.5 L RBC 3.85 L Hgb 12.5 Hct 38.7 MCV 100.5 H MCH 32.5 H MCHC 32.3 RDW Std Deviation 48.7 H RDW Coeff of Chani 13.1 Plt Count 189 MPV 10.5 Immature Gran % (Auto) 0.600 Neut % (Auto) 58.9 Lymph % (Auto) 25.1 [place] % (Auto) 10.5 H Eos % (Auto) 4.0 Baso % (Auto) 0.9 Absolute Neuts (auto) 2.1 Absolute Lymphs (auto) 0.88 Nucleated RBC % 0 Sodium 141 Potassium 4.1 Chloride 109 H Carbon Dioxide 28.0 Anion Gap 4 L BUN 19 H Creatinine 0.64 Estim Creat Clear Calc 43.74 Est GFR (MDRD) Af Amer 117 Est GFR (MDRD) Non-Af 97 BUN/Creatinine Ratio 29.9 H Glucose 88 Calcium 7.5 L Urine Color Yellow Urine Clarity Clear Urine pH 5.0 Ur Specific [place] 1.010 Urine Protein Negative Urine Glucose (UA) Normal Urine Ketones Negative Urine Occult Blood 25 H Urine Nitrite Negative Urine Bilirubin Negative Urine Urobilinogen Normal Ur Leukocyte Esterase 25 H Urine RBC 0-5 SEEN Urine WBC 0-5 SEEN Ur Squamous Epith Cells 0-5 SEEN Urine Bacteria RARE Urine Mucus 0 SEEN Radiography Diagnostic Testing: Clinical Impression(s) from Imaging Studies Abdomen/Pelvis CT 07/24/21 15:21 IMPRESSION: 1. Since 07/21/2021, stable exam. Nonobstructing right renal calculi. Electronically Signed: Dillon Graham MD (Brooks) at 16:20 EST Reading Location ID and State: [facility] / [place] , Service support , Treatment and Re-Evaluation Comments:: Lab work reviewed and unremarkable. Renal function remains normal. Urine is improved when compared to prior since she has been taking Macrobid. CT scan of the abdomen and pelvis shows stable exam with a nonobstructing right renal calculi. Patient is continuing to have right flank pain. I spoke with Dr. Alejandra Villavicencio who she has seen in the past. Dr. Wyneski will be happy to see her and arrange for a stent placement. Because the patient has generalized weakness and difficulty walking I will speak with medicine regarding admission and consult to urology. Discharge Plan Triage Chief Complaint: Abd Pain ED Provider: Manda Saba Dx/Rx/DC Orders Clinical Impression: Calculus of right kidney, Generalized weakness Prescriptions: No Action cholecalciferol (vitamin D3) [Vitamin D3] 1,000 UNIT tablet 1,000 unit PO DAILY RF: 0 duloxetine 60 MG capsule 90 mg PO DAILY RF: 0 pravastatin 40 MG tablet 40 mg PO QHS RF: 0 primidone 50 MG tablet 100 mg PO TID RF: 0 fluticasone propionate 1 SPRAY spray,suspension 2 spray NASAL DAILY RF: 0 simethicone 80 MG tablet 80 mg PO TIDCM RF: 0 mirabegron 50 MG tablet extended release 24 hr 100 mg PO QHS RF: 0 famotidine 20 MG tablet 20 mg PO DAILY RF: 0 gabapentin 400 MG capsule 400 mg PO TID RF: 0 divalproex 500 MG tablet,delayed release (DR/EC) 500 mg PO BID Qty: 0 RF: 0 bupropion HCl 150 MG tablet extended release 24 hr 150 mg PO DAILY RF: 0 alum-mag hydroxide-simeth 355 ML suspension 30 ml PO Q4H PRN PRN (Reason: GI DISTRESS) RF: 0 albuterol sulfate 2.5 MG/3 ML solution for nebulization 2.5 mg INHALATION Q2H PRN PRN (Reason: Dyspnea, wheezing) RF: 0 ascorbic acid (vitamin C) 500 MG tablet 500 mg PO DAILY RF: 0 acetaminophen 500 MG tablet 500 - 1,000 mg PO Q6H PRN PRN (Reason: Pain Score 1-10) RF: 0 methenamine hippurate 1 GM tablet 1 gm PO BID Qty: 180 RF: 1 apixaban 5 MG tablet 5 mg PO BID Qty: 60 RF: 0 cyanocobalamin (vitamin B-12) 1,000 mcg/mL Solution 1,000 mcg IM QMONTH RF: 0 ferrous sulfate 325 mg (65 mg iron) Tablet 325 mg PO DAILY RF: 0 furosemide 40 MG tablet 60 mg PO DAILY Qty: 0 RF: 0 omeprazole 40 mg capsule,delayed release(DR/EC) 40 mg PO DAILY RF: 0 oxycodone-acetaminophen 5-325 mg tablet 1 tab PO Q6H PRN PRN (Reason: Pain) RF: 0 belladonna alkaloids-opium 16.2-30 mg Suppository 1 supp NH TID PRN (Reason: Pain) RF: 0 nitrofurantoin monohyd/m-cryst [Macrobid] 100 mg Capsule 100 mg PO BID RF: 0 Toviaz 4 mg Tablet Extended Release 24 Hr 4 mg PO DAILY RF: 0 d-mannose 500 mg Capsule 1,000 mg PO BID RF: 0 Probiotic 1 cap PO/SL DAILY RF: 0 phenazopyridine [Pyridium] 100 mg tablet 200 mg PO BID RF: 0 Primary Care Provider: Gonzales Pinto Referrals: Gonzales Pinto MD [Primary Care Provider] - Disposition Disposition: Acute Care Hospital [facility]
[2021-07-24] MEDS: Ondansetron 4 MG/2 ML Vial IV (15:31)
[2021-07-24] MEDS: Morphine 2 MG/ML Syringe IV (15:31)
[2021-07-24 15:32] VITALS: BP 123/58; PULSE 85; RESP 17; TEMP 35.8; O2SAT 97
[2021-07-24 15:46] LABS: Mucous, Urine 0 SEEN /hpf (<or=2+)
[2021-07-24 15:49] LABS: Absolute Lymphocyte Count 0.88 X10^3/uL (0.83-4.51); Absolute Neutrophil Count 2.1 X10^3/uL (2.0-7.7); Basophil# 0.03 X10^3/uL; Basophil% 0.9 % (0-1); Eosinophil# 0.14 X10^3/uL; Hematocrit 38.7 % (37-47); Hemoglobin 12.5 g/dL (12.0-15.0); Lymphocyte # 0.88 X10^3/ul (0.83-4.51); Lymphocyte % 25.1 % (19-41); Mean Corp Hgb Conc 32.3 g/dL (32-36); Mean Corpuscular Hgb 32.5 pg (27.0-32.0); Mean Corpuscular Volume 100.5 fL (81-99); Mean Platelet Vol. 10.5 fl (6.2-12.0); Monocyte# 0.37 X10^3/uL; Monocyte% 10.5 % (0-10); NRBC Flagged by Analyzer 0 % (0-5); Neutrophil # 2.07 X10^3/uL (2.7-7.7); Neutrophil % 58.9 % (47-70); Platelet Count 189 K/mm3 (150-450); RBC Distribution Width CV 13.1 % (11.6-14.6); RBC Distribution Width SD 48.7 fl (35.1-43.9); Red Blood Count 3.85 M/mm3 (4.2-5.4); White Blood Count 3.5 K/mm3 (4.4-11.0)
[2021-07-24 15:55] LABS: Color, Urine Yellow (Yellow); Glucose, Dipstick Normal (Normal); Ketone-Dipstick Negative (Negative); Leukocyte Esterase-Dipstick 25 /ul (Negative); Nitrite-Dipstick Negative (Negative); Occult Blood-Urine 25 /ul (Negative); Protein-Dipstick Negative (Negative); Urine Bilirubin Dipstick Negative (Negative); Urine Clarity Clear (Clear); Urine Urobilinogen Normal (Normal)
[2021-07-24 16:08] LABS: Anion Gap 4 (5-15); BUN 19 mg/dL (7-18); BUN/Creat Ratio 29.9 RATIO (10-20); Calcium,Total 7.5 mg/dL (8.5-10.1); Chloride 109 mmol/L (98-107); Creatinine, Serum 0.64 mg/dL (0.55-1.02); EST Glomerular Filtration Rate 97 mL/min (>60); Est Glom Filt Rate - Afr Amer 117 mL/min (>60); Estimated Creatinine Clearance 43.74 ml/min; Glucose 88 mg/dL (74-106); Potassium 4.1 mmol/L (3.5-5.1); Sodium Level 141 mmol/L (136-145)
[2021-07-24] MEDS: Morphine 4 MG/ML Syringe IV (16:24)
[2021-07-24 16:33] LABS: Bacteria RARE /hpf (None Seen); Red Blood Cells-Urine 0-5 SEEN /hpf (0-5); Squamous Epithelial Cells - UA 0-5 SEEN /hpf (5-10); White Blood Cells 0-5 SEEN /hpf (0-5)
--- NOTE | 2021-07-24 16:52 | NURSING ---
DR GILBERT PAGED
--- NOTE | 2021-07-24 17:13 | PCM.HP.STD ---
Documented by User: Tita Frazier NP, CONTRACT SERVICEMAN-C 07/24/21 17:45 HPI - General HPI Narrative ADAM NIX, is a 76 F who presents to the emergency room due to right flank/right sided abdominal pain, weakness. She denies fever, chills. Denies urinary symptoms. Denies nausea, vomiting. Recently seen in the emergency room 07/21/2021 for right flank pain which has been ongoing for 2 weeks. She was initiated on Macrobid at that time for UTI. Patient has followed with Dr. Villavicencio in the past for kidney stone. CT of abdomen demonstrated 14 mm calculus in the right extrarenal pelvis. Repeat CT this admission unchanged. Patient states her pain seems to improve with movement and is worse when she is at rest. She denies other associated symptoms or complaints. She has a past medical history of recurrent UTI, overactive bladder, depression/anxiety, osteoarthritis, hypertension, hyperlipidemia, morbid obesity, type 2 diabetes mellitus, history of DVT on chronic anticoagulation, GERD. FORMERLY [facility] Medical History Arthritis Carpal tunnel syndrome Cataracts, both eyes Closed left arm fracture Depression Diabetes DVT (deep venous thrombosis) FHx: cholecystectomy GERD (gastroesophageal reflux disease) GI bleed Hearing loss, left Hearing loss, right Heart disease History of gallstones Hypertension Kidney stones Neuropathy Non-smoker Osteoarthritis Polycystic ovaries Pulmonary embolism Home Medications cholecalciferol (vitamin D3) [Vitamin D3] 1,000 unit PO DAILY 12/29/15 [History Last Taken 11/04/20] duloxetine 90 mg PO DAILY 12/29/15 [History Last Taken 11/04/20] pravastatin 40 mg PO QHS 08/05/18 [History Last Taken 11/03/20] fluticasone propionate 2 spray NASAL DAILY 03/18/19 [History Last Taken 11/04/20] primidone 100 mg PO TID 03/18/19 [History Last Taken 11/04/20] simethicone 80 mg PO TIDCM 03/18/19 [History Last Taken 11/04/20] mirabegron 100 mg PO QHS 01/24/20 [History Last Taken 11/03/20] famotidine 20 mg PO DAILY 03/23/20 [History Last Taken 11/04/20] gabapentin 400 mg PO TID 07/09/20 [History Last Taken 05/28/21] divalproex 500 mg PO BID #0 07/11/20 [Rx Last Taken 11/04/20] bupropion HCl 150 mg PO DAILY 08/09/20 [History Last Taken 11/04/20] alum-mag hydroxide-simeth 30 ml PO Q4H PRN PRN 08/20/20 [History Last Taken 10/22/20] albuterol sulfate 2.5 mg INHALATION Q2H PRN PRN vial.neb. 08/22/20 [Rx Last Taken Unknown] acetaminophen 500 - 1,000 mg PO Q6H PRN PRN 09/28/20 [History Last Taken 10/22/20] ascorbic acid (vitamin C) 500 mg PO DAILY 09/28/20 [History Last Taken 11/04/20] apixaban 5 mg PO BID #60 tablet 10/02/20 [Rx Last Taken 11/04/20] methenamine hippurate 1 gm PO BID #180 tablet 10/02/20 [Rx Last Taken 11/04/20] cyanocobalamin (vitamin B-12) 1,000 mcg IM QMONTH 10/23/20 [History Last Taken 07/02/21] ferrous sulfate 325 mg PO DAILY 10/23/20 [History Last Taken 11/04/20] furosemide 60 mg PO DAILY #0 tab 10/26/20 [Rx Last Taken 11/04/20] Probiotic 1 cap PO/SL DAILY 07/24/21 [History Last Taken Unknown] belladonna alkaloids-opium 1 supp TX TID PRN 07/24/21 [History Last Taken Unknown] d-mannose 1,000 mg PO BID 07/24/21 [History Last Taken Unknown] fesoterodine [Toviaz] 4 mg PO DAILY 07/24/21 [History Last Taken Unknown] nitrofurantoin monohyd/m-cryst [Macrobid] 100 mg PO BID 07/24/21 [History Last Taken Unknown] omeprazole 40 mg PO DAILY 07/24/21 [History Last Taken Unknown] oxycodone-acetaminophen 1 tab PO Q6H PRN PRN 07/24/21 [History Last Taken Unknown] phenazopyridine [Pyridium] 200 mg PO BID 07/24/21 [History Last Taken Unknown] Allergy/AdvReac Type Severity Reaction Status Date / Time ampicillin [From Unasyn] Allergy Severe Other Verified 07/24/21 14:00 warfarin sodium Allergy Severe Low red Verified 07/24/21 14:00 [From Coumadin] blood cells Family History Father Colon cancer Hypertension Mother Hypertension Surgical History History of carpal tunnel surgery History of cholecystectomy History of embolic filter insertion History of hysterectomy Total knee replacement status Social History Smoking Status: Never smoker alcohol intake: current alcohol intake frequency: holidays/special occasions only substance use type: does not use what type of physical activity do you participate in: walking and aerobics frequency: 1-2 times per week ROS Constitutional Constitutional: Reports weakness; Denies change in weight, chills, fatigue or fever(s) Cardiovascular Cardiovascular: Denies chest pain, edema, lightheadedness, palpitations or syncope Respiratory/Chest Respiratory/Chest: Denies cough, dyspnea, productive cough, shortness of breath at rest, shortness of breath with exertion or wheezing Gastrointestinal Gastrointestinal: Reports other Details: Right-sided abdominal pain ; Denies constipation, diarrhea, nausea or vomiting Genitourinary Genitourinary: Reports other Details: Right-sided flank pain ; Denies burning urination, difficulty urinating, dysuria, hematuria, urinary frequency, urinary incontinence or urinary urgency Musculoskeletal Musculoskeletal: Denies back pain, joint pain or muscle weakness Integumentary Integumentary: Denies erythema, lesions, rash or wounds Neurologic Neurologic: Denies abnormal speech, confusion, dizziness, focal weakness, numbness, paresthesias, seizure-like activity or syncope Psychiatric Psychiatric: Denies anxiety or depression Hematologic/Lymphatic Hematologic/Lymphatic: Denies anemia, easy bleeding or easy bruising Allergic/Immunologic Allergic/Immunologic: Denies hives or asthma Vital Signs Vital Signs Vital Signs: 07/24/21 13:57 07/24/21 15:32 Temperature 97.8 F 96.5 F L Temperature Source Temporal Temporal Pulse Rate 86 85 Respiratory Rate 18 17 Blood Pressure 125/69 H 123/58 H Blood Pressure Mean 87 79 Pulse Ox 92 97 Oxygen Delivery Method Room Air Room Air Weight Weight: 305 lb Body Mass Index (BMI) 50.7 Physical Exam Const alert, oriented x3 and no apparent distress Orientation / Consciousness: awake, oriented to person, oriented to place and oriented to time HEENT normocephalic and moist oral mucous membranes Eyes PERRL, EOMs intact bilaterally and conjunctivae normal Neck no lymphadenopathy Resp normal respiratory effort and clear to auscultation bilaterally Cardio regular rate, regular rhythm and no murmurs Peripheral Pulses: pulses 2+ throughout GI normal to inspection, nondistended, normoactive bowel sounds, non-tender and non-distended Extremity normal to inspection Skin no rashes or lesions noted Lesions: no lesions Rashes: no rashes Trauma: no lacerations or abrasions Neuro CN's II-XII intact bilaterally, no focal motor deficits, no sensory deficits noted and deep tendon reflexes 2+ bilaterally Psych mental status grossly normal and affect normal Results Lab / Micro Data Result Diagrams: 07/24/21 15:00 07/24/21 15:00 Labs: Laboratory Results - last 24 hr 07/24/21 15:00: WBC 3.5 L, RBC 3.85 L, Hgb 12.5, Hct 38.7, MCV 100.5 H, MCH 32.5 H, MCHC 32.3, RDW Std Deviation 48.7 H, RDW Coeff of Chani 13.1, Plt Count 189, MPV 10.5, Immature Gran % (Auto) 0.600, Neut % (Auto) 58.9, Lymph % (Auto) 25.1, [place] % (Auto) 10.5 H, Eos % (Auto) 4.0, Baso % (Auto) 0.9, Absolute Neuts (auto) 2.1, Absolute Lymphs (auto) 0.88, Nucleated RBC % 0 07/24/21 15:00: Sodium 141, Potassium 4.1, Chloride 109 H, Carbon Dioxide 28.0, Anion Gap 4 L, BUN 19 H, Creatinine 0.64, Estim Creat Clear Calc 43.74, Est GFR (MDRD) Af Amer 117, Est GFR (MDRD) Non-Af 97, BUN/Creatinine Ratio 29.9 H, Glucose 88, Calcium 7.5 L 07/24/21 15:00: Urine Color Yellow, Urine Clarity Clear, Urine pH 5.0, Ur Specific [place] 1.010, Urine Protein Negative, Urine Glucose (UA) Normal, Urine Ketones Negative, Urine Occult Blood 25 H, Urine Nitrite Negative, Urine Bilirubin Negative, Urine Urobilinogen Normal, Ur Leukocyte Esterase 25 H, Urine RBC 0-5 SEEN, Urine WBC 0-5 SEEN, Ur Squamous Epith Cells 0-5 SEEN, Urine Bacteria RARE, Urine Mucus 0 SEEN Radiology Impression Abdomen/Pelvis CT 07/24/21 15:21 IMPRESSION: 1. Since 07/21/2021, stable exam. Nonobstructing right renal calculi. Electronically Signed: Dillon Graham MD (Brooks) at 16:20 EST , Assessment & Plan Assessment/Plan (1) Acute UTI: (2) Calculus of right kidney: PLAN: 1. Intractable right-sided abdominal pain secondary to nonobstructing right renal calculi, recent UTI-IV Rocephin pending final culture. Urology consulted with plans for stent placement. As needed pain regimen. PT/OT. 2. History of type 2 diabetes mellitus with diabetic peripheral neuropathy-diet controlled following bypass. On gabapentin and Depakote for neuropathy. 3. History of DVT-status post IVC filter placement. On Eliquis. 4. Anemia of chronic disease/iron deficiency anemia- stable. 5. Depression/anxiety-continue bupropion, duloxetine. 6. Hyperlipidemia-continue statin. 7. Morbid obesity-history of gastric bypass. Encouraged diet and lifestyle modifications. 8. GERD-on famotidine. 9. Hypertension-on Lasix. DVT prophylaxis-hold Eliquis This patient was seen by MEGHANA Carbajal under the supervision of Dr. Soto. Time spent examining patient, reviewing data and subsequent management of care:17 minutes Documented by User: Dr. Rocío Soto MD 07/24/21 20:29 HPI - General General Date of Admission: 07/24/21 FOR[facility]LY [facility] Medical History Arthritis Carpal tunnel syndrome Cataracts, both eyes Closed left arm fracture Depression Diabetes DVT (deep venous thrombosis) FHx: cholecystectomy GERD (gastroesophageal reflux disease) GI bleed Hearing loss, left Hearing loss, right Heart disease History of gallstones Hypertension Kidney stones Neuropathy Non-smoker Osteoarthritis Polycystic ovaries Pulmonary embolism Home Medications cholecalciferol (vitamin D3) [Vitamin D3] 1,000 unit PO DAILY 12/29/15 [History Last Taken 11/04/20] duloxetine 90 mg PO DAILY 12/29/15 [History Last Taken 11/04/20] pravastatin 40 mg PO QHS 08/05/18 [History Last Taken 11/03/20] fluticasone propionate 2 spray NASAL DAILY 03/18/19 [History Last Taken 11/04/20] primidone 100 mg PO TID 03/18/19 [History Last Taken 11/04/20] simethicone 80 mg PO TIDCM 03/18/19 [History Last Taken 11/04/20] mirabegron 100 mg PO QHS 01/24/20 [History Last Taken 11/03/20] famotidine 20 mg PO DAILY 03/23/20 [History Last Taken 11/04/20] gabapentin 400 mg PO TID 07/09/20 [History Last Taken 05/28/21] divalproex 500 mg PO BID #0 07/11/20 [Rx Last Taken 11/04/20] bupropion HCl 150 mg PO DAILY 08/09/20 [History Last Taken 11/04/20] alum-mag hydroxide-simeth 30 ml PO Q4H PRN PRN 08/20/20 [History Last Taken 10/22/20] albuterol sulfate 2.5 mg INHALATION Q2H PRN PRN vial.neb. 08/22/20 [Rx Last Taken Unknown] acetaminophen 500 - 1,000 mg PO Q6H PRN PRN 09/28/20 [History Last Taken 10/22/20] ascorbic acid (vitamin C) 500 mg PO DAILY 09/28/20 [History Last Taken 11/04/20] apixaban 5 mg PO BID #60 tablet 10/02/20 [Rx Last Taken 11/04/20] methenamine hippurate 1 gm PO BID #180 tablet 10/02/20 [Rx Last Taken 11/04/20] cyanocobalamin (vitamin B-12) 1,000 mcg IM QMONTH 10/23/20 [History Last Taken 07/02/21] ferrous sulfate 325 mg PO DAILY 10/23/20 [History Last Taken 11/04/20] furosemide 60 mg PO DAILY #0 tab 10/26/20 [Rx Last Taken 11/04/20] Probiotic 1 cap PO/SL DAILY 07/24/21 [History Last Taken Unknown] belladonna alkaloids-opium 1 supp TX TID PRN 07/24/21 [History Last Taken Unknown] d-mannose 1,000 mg PO BID 07/24/21 [History Last Taken Unknown] fesoterodine [Toviaz] 4 mg PO DAILY 07/24/21 [History Last Taken Unknown] nitrofurantoin monohyd/m-cryst [Macrobid] 100 mg PO BID 07/24/21 [History Last Taken Unknown] omeprazole 40 mg PO DAILY 07/24/21 [History Last Taken Unknown] oxycodone-acetaminophen 1 tab PO Q6H PRN PRN 07/24/21 [History Last Taken Unknown] phenazopyridine [Pyridium] 200 mg PO BID 07/24/21 [History Last Taken Unknown] Allergy/AdvReac Type Severity Reaction Status Date / Time ampicillin [From Unasyn] Allergy Severe Other Verified 07/24/21 14:00 warfarin sodium Allergy Severe Low red Verified 07/24/21 14:00 [From Coumadin] blood cells Family History Father Colon cancer Hypertension Mother Hypertension Surgical History History of carpal tunnel surgery History of cholecystectomy History of embolic filter insertion History of hysterectomy Total knee replacement status Social History Smoking Status: Never smoker alcohol intake: current alcohol intake frequency: holidays/special occasions only substance use type: does not use what type of physical activity do you participate in: walking and aerobics frequency: 1-2 times per week Results Lab / Micro Data Result Diagrams: 07/24/21 15:00 07/24/21 15:00 Charges/Coding Addendum Addendum: This patient was seen in conjunction with Tony Dixon NP. I have independently interviewed and examined the patient and reviewed pertinent historical, laboratory, and other data. I have reviewed her note and concur with her documentation 76-year-old female with multiple comorbidities, resident in an assisted living facility who presented with right flank pain and generalized weakness. Patient has history of kidney stones. She was seen in the emergency department a day prior to admission for flank pain. CT scan of the abdomen and pelvis done showed a large right renal calculus. She was discharged on Macrobid and asked to follow-up with Dr. Villavicencio. Patient presented back because of persistent flank pain and generalized weakness. She usually uses a walker at baseline. She denied any dysuria or frequency or hematuria or nausea or vomiting or diarrhea. Urology?Dr. Villavicencio was consulted from the ED Vitals in the ED were stable?blood pressure 122/66, Hr 83, SPO2 97% on room air, temperature was 97.6F Physical Exam: Gen: Comfortable, not pale, not jaundiced CVS:HS I +II, regular, no murmurs RESP: Diminished at lung bases GI: BS present and normal, soft, nontender, no palpable organs EXT:No edema Labs: WBC count is 3.5, hemoglobin 12.5, platelet count of 189, UA was unremarkable?clear, ketones negative, nitrite negative, leukocyte esterase 25, WBC 0-5, rare bacteria CT of the abdomen and pelvis shows 7 mm right renal pelvis calculus, 3 mm right renal calculus, bilateral hypodense simple cysts, ASSESSMENT: 1. Acute right flank pain secondary to kidney stones 2. Acute complicated UTI in the setting of kidney stone 3. Type II DM, complicated by peripheral neuropathy 4. History of DVT status post IVC filter 5. Anemia of chronic disease/iron deficiency 6. Anxiety/depression 7. Morbid obesity, h/o gastric bypass 8. GERD 9. Hypertension Plan: Admit to MedSurg, IV ceftriaxone, IV fluids Follow-up on urine and blood cultures Urology consult I discussed and explained in details the various types of CODE STATUS-full code, DNR CCA, DNR CC. Patient chose full code Time spent discussing CODE STATUS 16 minutes Time spent taking patient's history, physical examination headache, coordinating patient's care, discussing with nursin minutes Visit Charges Inpatient E&M: 32218 Init Hosp L3 Procedures Hospitalists Procedures: 56456 Advncd Care Plan 30 Min
[2021-07-24 17:16] VITALS: BP 102/53; PULSE 82; RESP 20; TEMP 36.6; O2SAT 94
--- NOTE | 2021-07-24 17:17 | NURSING ---
med surg nuama right renal stone, weakness
[2021-07-24 18:02] VITALS: BMI 50.5
[2021-07-24 18:13] VITALS: BP 122/66; PULSE 83; RESP 16; TEMP 36.4; O2SAT 97
[2021-07-24] MEDS: 0.9% Normal Saline 1,000 ML 100 ML IV (19:02)
[2021-07-24] MEDS: Ceftriaxone 1 GM/50 ML BAG IV (19:02)
[2021-07-24] MEDS: oxyCODONE 5 MG Tablet PO (19:02)
[2021-07-24 20:48] VITALS: BP 114/66; PULSE 75; RESP 16; TEMP 36.6; O2SAT 92
[2021-07-24 20:52] LABS: AST(SGOT) 12 U/L (15-37); Alanine Aminotransfer ALT/SGPT 15 U/L (13-56); Albumin, Serum 2.8 g/dL (3.2-5.0); Alkaline Phosphatase 129 U/L (45-117); Globulin 2.7 g/dL (2.2-4.2); Protein, Total 5.5 g/dL (6.4-8.2)
[2021-07-24 21:05] LABS: Bedside Glucose 105 mg/dL (70-110)
[2021-07-24] MEDS: Divalproex Sodium 250 MG Tablet 500 MG PO (21:30)
[2021-07-24] MEDS: Pravastatin 40 MG Tablet PO (21:30)
[2021-07-24] MEDS: Primidone 50 MG Tablet 100 MG PO (21:30)
[2021-07-24] MEDS: Morphine 2 MG/ML Syringe 1 MG IV (22:42)
[2021-07-25] VITALS (11 sets, daily range): BP systolic 112–142; BP diastolic 51–64; PULSE 70–84; RESP 16–20; TEMP 36.5–37.1; O2SAT 92–94; BMI 50.5
[2021-07-25] MEDS: Ondansetron 4 MG/2 ML Vial IV (00:56)
[2021-07-25] MEDS: Morphine 2 MG/ML Syringe 1 MG IV ×4 (03:00→19:43)
[2021-07-25] MEDS: Primidone 50 MG Tablet 100 MG PO ×2 (05:39→21:10)
[2021-07-25] MEDS: oxyCODONE 5 MG Tablet PO ×2 (05:39→22:35)
[2021-07-25 06:06] LABS: Absolute Lymphocyte Count 0.99 X10^3/uL (0.83-4.51); Absolute Neutrophil Count 1.8 X10^3/uL (2.0-7.7); Basophil# 0.03 X10^3/uL; Basophil% 0.9 % (0-1); Eosinophil# 0.13 X10^3/uL; Hematocrit 37.7 % (37-47); Hemoglobin 11.6 g/dL (12.0-15.0); Lymphocyte # 0.99 X10^3/ul (0.83-4.51); Lymphocyte % 30.4 % (19-41); Mean Corp Hgb Conc 30.8 g/dL (32-36); Mean Corpuscular Hgb 31.9 pg (27.0-32.0); Mean Corpuscular Volume 103.6 fL (81-99); Mean Platelet Vol. 10.1 fl (6.2-12.0); Monocyte# 0.31 X10^3/uL; Monocyte% 9.5 % (0-10); NRBC Flagged by Analyzer 0 % (0-5); Neutrophil # 1.79 X10^3/uL (2.7-7.7); Neutrophil % 54.9 % (47-70); Platelet Count 168 K/mm3 (150-450); RBC Distribution Width CV 13.2 % (11.6-14.6); Red Blood Count 3.64 M/mm3 (4.2-5.4); White Blood Count 3.3 K/mm3 (4.4-11.0)
[2021-07-25] MEDS: 0.9% Normal Saline 1,000 ML 100 ML IV ×2 (06:36→18:28)
[2021-07-25 06:45] LABS: Bedside Glucose 104 mg/dL (70-110)
[2021-07-25 06:51] LABS: ALB/GLOB Ratio 0.8 RATIO (0.9-2.4); AST(SGOT) 14 U/L (15-37); Alanine Aminotransfer ALT/SGPT 17 U/L (13-56); Albumin, Serum 2.3 g/dL (3.2-5.0); Alkaline Phosphatase 127 U/L (45-117); Anion Gap 4 (5-15); BUN 19 mg/dL (7-18); BUN/Creat Ratio 32.4 RATIO (10-20); Calcium,Total 7.6 mg/dL (8.5-10.1); Chloride 109 mmol/L (98-107); Creatinine, Serum 0.59 mg/dL (0.55-1.02); EST Glomerular Filtration Rate 106 mL/min (>60); Est Glom Filt Rate - Afr Amer 128 mL/min (>60); Estimated Creatinine Clearance 43.74 ml/min; Globulin 2.8 g/dL (2.2-4.2); Glucose 97 mg/dL (74-106); Potassium 4.5 mmol/L (3.5-5.1); Protein, Total 5.1 g/dL (6.4-8.2); Sodium Level 138 mmol/L (136-145)
--- NOTE | 2021-07-25 08:30 | NURSING ---
This nurse spoke with Dr. Villavicencio. Dr. Villavicencio is aware that daughter and pt wanted kidney stone removed and not a stent. Dr. Villavicencio going to judy lthe daughter. Order obtained by Dr. Villavicencio for consent.
--- NOTE | 2021-07-25 09:36 | PCM.PN.HOSP ---
Documented by User: Tita Frazier NP, [employer]LLER SHOP SUPERVISOR-C 07/25/21 09:49 Subjective Subjective Patient seen and examined. Reports ongoing right abdominal/flank pain however improved with pain medication. Plan for renal stent placement this afternoon. She denies fever, chills. Denies nausea, vomiting. Denies urinary symptoms. Objective Data Objective Data Vital Signs: Vital Signs Temp Pulse Resp BP Pulse Ox 97.8 F 78 18 142/55 H 94 07/25/21 08:13 07/25/21 08:13 07/25/21 08:13 07/25/21 08:13 07/25/21 08:13 Oxygen Delivery Method Room Air Weight: 303 lb 12.752 oz Body Mass Index (BMI) 50.5 Intake & Output: Intake and Output for Last 24 Hours 07/23/21 07/24/21 07/25/21 23:59 23:59 23:59 Intake Total 50 / 850 1850 / 1850 Balance 50 / 850 1850 / 1850 Lab / Micro Data Result Diagrams: 07/25/21 05:39 07/25/21 05:39 Labs: Laboratory Results - last 24 hr 07/24/21 15:00: WBC 3.5 L, RBC 3.85 L, Hgb 12.5, Hct 38.7, MCV 100.5 H, MCH 32.5 H, MCHC 32.3, RDW Std Deviation 48.7 H, RDW Coeff of Chani 13.1, Plt Count 189, MPV 10.5, Immature Gran % (Auto) 0.600, Neut % (Auto) 58.9, Lymph % (Auto) 25.1, [place] % (Auto) 10.5 H, Eos % (Auto) 4.0, Baso % (Auto) 0.9, Absolute Neuts (auto) 2.1, Absolute Lymphs (auto) 0.88, Nucleated RBC % 0 07/24/21 15:00: Sodium 141, Potassium 4.1, Chloride 109 H, Carbon Dioxide 28.0, Anion Gap 4 L, BUN 19 H, Creatinine 0.64, Estim Creat Clear Calc 43.74, Est GFR (MDRD) Af Amer 117, Est GFR (MDRD) Non-Af 97, BUN/Creatinine Ratio 29.9 H, Glucose 88, Calcium 7.5 L 07/24/21 15:00: Urine Color Yellow, Urine Clarity Clear, Urine pH 5.0, Ur Specific [place] 1.010, Urine Protein Negative, Urine Glucose (UA) Normal, Urine Ketones Negative, Urine Occult Blood 25 H, Urine Nitrite Negative, Urine Bilirubin Negative, Urine Urobilinogen Normal, Ur Leukocyte Esterase 25 H, Urine RBC 0-5 SEEN, Urine WBC 0-5 SEEN, Ur Squamous Epith Cells 0-5 SEEN, Urine Bacteria RARE, Urine Mucus 0 SEEN 07/24/21 15:00: Total Bilirubin 0.20, Direct Bilirubin 0.10, AST 12 L, ALT 15, Alkaline Phosphatase 129 H, Total Protein 5.5 L, Albumin 2.8 L, Globulin 2.7 07/24/21 20:52: POC Glucose 105 07/25/21 05:39: WBC 3.3 L, RBC 3.64 L, Hgb 11.6 L, Hct 37.7, MCV 103.6 H, MCH 31.9, MCHC 30.8 L, RDW Std Deviation 50.0 H, RDW Coeff of Chani 13.2, Plt Count 168, MPV 10.1, Immature Gran % (Auto) 0.300, Neut % (Auto) 54.9, Lymph % (Auto) 30.4, [place] % (Auto) 9.5, Eos % (Auto) 4.0, Baso % (Auto) 0.9, Absolute Neuts (auto) 1.8 L, Absolute Lymphs (auto) 0.99, Nucleated RBC % 0 07/25/21 05:39: Sodium 138, Potassium 4.5, Chloride 109 H, Carbon Dioxide 25.0, Anion Gap 4 L, BUN 19 H, Creatinine 0.59, Estim Creat Clear Calc 43.74, Est GFR (MDRD) Af Amer 128, Est GFR (MDRD) Non-Af 106, BUN/Creatinine Ratio 32.4 H, Glucose 97, Calcium 7.6 L, Total Bilirubin 0.20, AST 14 L, ALT 17, Alkaline Phosphatase 127 H, Total Protein 5.1 L, Albumin 2.3 L, Globulin 2.8, Albumin/Globulin Ratio 0.8 L 07/25/21 06:35: POC Glucose 104 Micro: Microbiology 07/25/21 08:15 Nasal Secretion SARS-CoV-2 Antigen (Rapid) - Final Radiography Diagnostic Testing: Radiology Impression Abdomen/Pelvis CT 07/24/21 15:21 IMPRESSION: 1. Since 07/21/2021, stable exam. Nonobstructing right renal calculi. Electronically Signed: Dillon Graham MD (Brooks) at 16:20 EST , Physical Exam Const alert, oriented x3 and no apparent distress Orientation / Consciousness: awake, oriented to person, oriented to place and oriented to time Nutritional Appearance: obese HEENT normocephalic and moist oral mucous membranes Eyes PERRL, EOMs intact bilaterally and conjunctivae normal Neck no lymphadenopathy Resp normal respiratory effort and clear to auscultation bilaterally Cardio regular rate, regular rhythm and no murmurs Peripheral Pulses: pulses 2+ throughout GI normal to inspection, nondistended, normoactive bowel sounds and non-distended GI Narrative: Right-sided tenderness Extremity normal to inspection Skin no rashes or lesions noted Lesions: no lesions Rashes: no rashes Trauma: no lacerations or abrasions Neuro CN's II-XII intact bilaterally, no focal motor deficits, no sensory deficits noted and deep tendon reflexes 2+ bilaterally Psych mental status grossly normal and affect normal Assessment & Plan Assessment/Plan (1) Calculus of right kidney: PLAN: 1. Intractable right-sided abdominal pain/flank pain secondary to nonobstructing right renal calculi- urology consulted. Urology consulted with plans for stent placement. As needed pain regimen. PT/OT. 2. Recent UTI-initiated on Macrobid 07/21/2021. Initially placed on IV Rocephin on admission. Recent urine culture unremarkable. Discontinue further antibiotics. 3. History of type 2 diabetes mellitus with diabetic peripheral neuropathy-diet controlled following bypass. On gabapentin and Depakote for neuropathy. 4. History of DVT-status post IVC filter placement. On Eliquis. 5. Anemia of chronic disease/iron deficiency anemia- stable. 6. Depression/anxiety-continue bupropion, duloxetine. 7. Hyperlipidemia-continue statin. 8. Morbid obesity-history of gastric bypass. Encouraged diet and lifestyle modifications. 9. GERD-on famotidine. 10. Hypertension-on Lasix. DVT prophylaxis-hold Eliquis This patient was seen by MEGHANA Carbajal under the supervision of Dr. Suárez. Time spent examining patient, reviewing data and subsequent management of care: 11 minutes Documented by User: Dr. Teofilo Suárez, 07/25/21 13:09 Subjective Subjective still with right flank pain, but improved. Objective Data Lab / Micro Data Result Diagrams: 07/25/21 05:39 07/25/21 05:39 Physical Exam Const alert and no apparent distress Resp normal respiratory effort, no retractions, no use of accessory muscles and clear to auscultation bilaterally Cardio regular rhythm, S1 normal heart sound and S2 normal heart sound GI normal to inspection, nondistended, normoactive bowel sounds, soft to palpation and non-tender Assessment & Plan Assessment/Plan (1) Calculus of right kidney: (2) UTI (urinary tract infection): PLAN: Patient seen and examined independently. Data and vitals reviewed. I agree with the above note by the nurse practitioner. 1. UTI. On ceftriaxone Follow-up cultures 2. Nonobstructing right renal calculi Urology on consult and planning on stent placement this afternoon 3. Debility PT OT evaluate and treat. Greater than 50 minutes spent reviewing data, discussing with patient and subsequent management. Charges/Coding Visit Charges Inpatient E&M: 14398 Subs Hosp L2
[2021-07-25] MEDS: 0.9% Saline Lock 10 ML Syringe IV (11:45)
--- NOTE | 2021-07-25 12:07 | EKG12_ITS ---
Test Reason : PREOP Blood Pressure : / mmHG Vent. Rate : 069 BPM Atrial Rate : 069 BPM P-R Int : 196 ms QRS Dur : 094 ms QT Int : 404 ms P-R-T Axes : 060 015 026 degrees QTc Int : 432 ms Normal sinus rhythm Normal ECG When compared with ECG of 21-FEB-2019 10:13, No significant change was found Confirmed by WILMAN GUNTER, ROSEY ([id number]), slot editor MARIO ARROYO ([id number]) on 07/26/2021 11:23:18 AM Referred By: DORON Confirmed By:SEAN STOVALL MD
--- NOTE | 2021-07-25 12:40 | CASEMGMT ---
Social Work Note SW reviewed chart, pt is listed as being from [facility]. SW familiar with pt from previous visits. SW in to speak with pt. SW introduced self and role at [facility]. Pt is alert and orientated, states she remembers this worker from previous visits. Pt confirms she came from [facility] and plans to return. SW informed pt that it will just depend on pt's needs at discharge. SW informed pt that if she is not able to ambulate or will need IV antibiotics she will need to consider SNF. Pt states understanding. SW to continue to follow. Plan: Return to [facility] Maria E Martinez GOVERNOR ASSEMBLER, PLACEMENT COORDINATOR
[2021-07-25 13:06] LABS: Bedside Glucose 84 mg/dL (70-110)
--- NOTE | 2021-07-25 13:22 | CASEMGMT ---
Social Work Clinical updates faxed to Kory Christy. left with coverage team at [facility] notifying of pt admission to hospital. MEG Rubio
--- NOTE | 2021-07-25 15:58 | NURSING ---
Off the floor at this time, in surgery.
--- NOTE | 2021-07-25 16:07 | CASEMGMT ---
Social Work Note RUKHSANA reviewed PT/OT. Pt walked 100ft standby assist. RUKHSANA placed a call to [facility] and spoke with Wallace. RUKHSANA updated Wallace on pt's PT/OT. Wallace states pt is able to return to [facility] as long as pt doesn't need IV antibiotics. If pt needs IV antibiotics, pt will need SNF. Wallace states pt will only need tested for COVID if pt is showing symptoms. If no symptoms, pt doesn't need COVID test to return. RUKHSANA faxed PT/OT to [facility]. RUKHSANA placed Green sheet, transport forms on pt's chart. Plan: Return to [facility]. If pt needs IV antibiotics, pt will need to go to SNF Maria E Martinez RN OTOLARYNGOLOGY, CAR HOP
[2021-07-25 16:21] LABS: Bedside Glucose 76 mg/dL (70-110)
--- NOTE | 2021-07-25 16:23 | NURSING ---
pt was reporting early this afternoon that she felt urge to void after voiding. This nurse bladder scanned pt after voiding which the pt missed the measuring hat. Bladder scan showed 58cc. Will continue to monitor.
[2021-07-25] MEDS: Dextrose 5%-Lactated Ringers 1,000 ML 15 ML IV (16:25)
--- NOTE | 2021-07-25 16:46 | CON.PCM_ITS ---
Assessment & Plan Assessment/Plan (1) Calculus of right kidney: (2) Acute UTI: PLAN: proceed with cystoscopy and right ureteral stent antibiotics and culture urine stone treatment in 2-3 weeks informed consent obtained HPI Consult Data Date of Consult: 07/25/21 HPI Narrative HPI Narrative: ADAM NIX, is a 76 F who presents with uncontrolled flank pain secondary to a right renal pelvic calculus. She is also being managed for an acute urinary tract infection. She is having pain to the point where she can no longer ambulate and is unable to be cared for at her facility as it is. We have discussed proceeding with a ureteral stent insertion, treating her infec tion and bringing her back for surgical further management for her stones. [facility] Medical History Arthritis Carpal tunnel syndrome Cataracts, both eyes Closed left arm fracture Depression Diabetes DVT (deep venous thrombosis) FHx: cholecystectomy GERD (gastroesophageal reflux disease) GI bleed Hearing loss, left Hearing loss, right Heart disease Hiatal hernia High cholesterol History of gallstones History of stress test Hypertension Kidney stones Neuropathy Non-smoker Osteoarthritis Polycystic ovaries Pulmonary embolism Restless legs Home Medications cholecalciferol (vitamin D3) [Vitamin D3] 1,000 unit PO DAILY 12/29/15 [History Last Taken 07/24/21] duloxetine 90 mg PO DAILY 12/29/15 [History Last Taken 07/24/21] pravastatin 40 mg PO QHS 08/05/18 [History Last Taken 07/23/21] fluticasone propionate 2 spray NASAL DAILY 03/18/19 [History Last Taken 07/24/21] primidone 100 mg PO TID 03/18/19 [History Last Taken 07/24/21 12:00] simethicone 80 mg PO TIDCM 03/18/19 [History Last Taken 07/24/21 12:00] mirabegron 100 mg PO QHS 01/24/20 [History Last Taken 07/23/21] gabapentin 400 mg PO TID 07/09/20 [History Last Taken 07/24/21 12:00] divalproex 500 mg PO BID #0 07/11/20 [Rx Last Taken 07/24/21] bupropion HCl 150 mg PO DAILY 08/09/20 [History Last Taken 07/24/21] alum-mag hydroxide-simeth 30 ml PO Q4H PRN PRN 08/20/20 [History Last Taken 10/22/20] albuterol sulfate 2.5 mg INHALATION Q2H PRN PRN vial.neb. 08/22/20 [Rx Last Taken Unknown] acetaminophen 500 - 1,000 mg PO Q6H PRN PRN 09/28/20 [History Last Taken 07/24/21] ascorbic acid (vitamin C) 500 mg PO DAILY 09/28/20 [History Last Taken 07/24/21] apixaban 5 mg PO BID #60 tablet 10/02/20 [Rx Last Taken 07/24/21] methenamine hippurate 1 gm PO BID #180 tablet 10/02/20 [Rx Last Taken 07/24/21] cyanocobalamin (vitamin B-12) 1,000 mcg IM QMONTH 10/23/20 [History Last Taken 07/02/21] ferrous sulfate 325 mg PO DAILY 10/23/20 [History Last Taken 07/24/21] furosemide 60 mg PO DAILY #0 tab 10/26/20 [Rx Last Taken 07/24/21] Probiotic 1 cap PO/SL DAILY 07/24/21 [History Last Taken 07/23/21] belladonna alkaloids-opium 1 supp NV TID PRN 07/24/21 [History Last Taken Unknown] d-mannose 1,000 mg PO BID 07/24/21 [History Last Taken 07/24/21] estradiol 1 applic VAGINAL TUTHSA 07/24/21 [History Last Taken 07/21/21] fesoterodine [Toviaz] 4 mg PO DAILY 07/24/21 [History Last Taken 07/24/21] nitrofurantoin monohyd/m-cryst [Macrobid] 100 mg PO BID 07/24/21 [History Last Taken 07/24/21] omeprazole 40 mg PO DAILY 07/24/21 [History Last Taken 07/24/21] oxycodone-acetaminophen 1 tab PO Q6H PRN PRN 07/24/21 [History Last Taken 07/24/21 0800] phenazopyridine [Pyridium] 200 mg PO BID PRN 07/24/21 [History Last Taken Unknown] Allergy/AdvReac Type Severity Reaction Status Date / Time ampicillin [From Unasyn] Allergy Severe Other Verified 07/24/21 14:00 warfarin sodium Allergy Severe Low red Verified 07/24/21 14:00 [From Coumadin] blood cells Family History Father Colon cancer Hypertension Mother Hypertension Surgical History H/O cardiac catheterization History of carpal tunnel surgery History of cholecystectomy History of embolic filter insertion History of hysterectomy S/P hysterectomy Total knee replacement status Social History Smoking Status: Never smoker alcohol intake: current alcohol intake frequency: holidays/special occasions only substance use type: does not use what type of physical activity do you participate in: walking and aerobics frequency: 1-2 times per week ROS Constitutional Constitutional: Reports body ache(s), lethargy and weakness; Denies fever(s) Eyes Eyes: Denies change in vision ENT HEENT: Denies dry mouth or dysphagia Cardiovascular Cardiovascular: Reports weakness in extremities; Denies chest pain, dyspnea or vomiting Respiratory/Chest Respiratory/Chest: Denies cough or dyspnea Gastrointestinal Gastrointestinal: Reports abdominal pain and nausea; Denies vomiting Genitourinary Genitourinary: Reports dysuria, flank pain, urinary incontinence and urinary urgency Musculoskeletal Musculoskeletal: Reports difficulty walking Integumentary Integumentary: Reports systems reviewed and no addt'l complaints, except as documented Neurologic Neurologic: Reports systems reviewed and no addt'l complaints, except as documented Psychiatric Psychiatric: Reports systems reviewed and no addt'l complaints, except as documented Endocrine Endocrinology: Reports systems reviewed and no addt'l complaints, except as documented Hematologic/Lymphatic Hematologic/Lymphatic: Reports systems reviewed and no addt'l complaints, except as documented Allergic/Immunologic Allergic/Immunologic: Reports systems reviewed and no addt'l complaints, except as documented Physical Exam Const alert, oriented x3 and no apparent distress General Appearance: cooperative and comfortable HEENT normocephalic, head/scalp atraumatic, hearing grossly normal bilaterally and external nose normal Eyes conjunctivae normal and no scleral icterus Neck supple General: normal visual inspection and trachea midline Lymph Lymphatic: no lymphedema noted Chest inspection of chest normal Chest: symmetrical chest wall rise Resp normal respiratory effort, normal air movement, no retractions and no use of accessory muscles Effort and Inspection: able to speak in complete sentences and symmetric chest movement Cardio regular rate and regular rhythm GI soft to palpation, non-tender and non-distended Bladder / Kidney Exam: CVA tenderness right Back/Spine General Back: CVA tenderness right Extremity normal to inspection Skin no rashes or lesions noted, no wounds, skin turgor normal, no jaundice, no petechiae and no mottling Neuro oriented x3, CN's II-XII intact bilaterally and moves all extremities Psych thought process normal and cooperative Lab / Micro Data Result Diagrams: 07/25/21 05:39 07/25/21 05:39 Labs: Laboratory Results - last 24 hr 07/24/21 15:00: Total Bilirubin 0.20, Direct Bilirubin 0.10, AST 12 L, ALT 15, Alkaline Phosphatase 129 H, Total Protein 5.5 L, Albumin 2.8 L, Globulin 2.7 07/24/21 20:52: POC Glucose 105 07/25/21 05:39: WBC 3.3 L, RBC 3.64 L, Hgb 11.6 L, Hct 37.7, MCV 103.6 H, MCH 31.9, MCHC 30.8 L, RDW Std Deviation 50.0 H, RDW Coeff of Chani 13.2, Plt Count 168, MPV 10.1, Immature Gran % (Auto) 0.300, Neut % (Auto) 54.9, Lymph % (Auto) 30.4, Cameron % (Auto) 9.5, Eos % (Auto) 4.0, Baso % (Auto) 0.9, Absolute Neuts (auto) 1.8 L, Absolute Lymphs (auto) 0.99, Nucleated RBC % 0 07/25/21 05:39: Sodium 138, Potassium 4.5, Chloride 109 H, Carbon Dioxide 25.0, Anion Gap 4 L, BUN 19 H, Creatinine 0.59, Estim Creat Clear Calc 43.74, Est GFR (MDRD) Af Amer 128, Est GFR (MDRD) Non-Af 106, BUN/Creatinine Ratio 32.4 H, Glucose 97, Calcium 7.6 L, Total Bilirubin 0.20, AST 14 L, ALT 17, Alkaline Phosphatase 127 H, Total Protein 5.1 L, Albumin 2.3 L, Globulin 2.8, Albumin/Globulin Ratio 0.8 L 07/25/21 05:39: Hemoglobin A1c 5.0 07/25/21 06:35: POC Glucose 104 07/25/21 11:40: POC Glucose 84 07/25/21 16:17: POC Glucose 76 Micro: Microbiology 07/24/21 15:12 Urine, Clean Catch Urine Culture - Preliminary Presumptive E. coli 07/25/21 08:15 Nasal Secretion SARS-CoV-2 Antigen (Rapid) - Final
--- NOTE | 2021-07-25 16:52 | PCM.OPRPT ---
Problems Associated Problem List Diagnoses (1) Calculus of right kidney: (2) Acute UTI: Report of Operation Date of Procedure: 07/25/21 Pre-Operative Diagnosis: Right renal calculus, urinary tract infection Post-Operative Diagnosis: Same Surgery/Procedure Performed:: Cystoscopy, right ureteral stent insertion Surgeon: Alejandra Villavicencio Type of Anesthesia: MAC Description of Procedure: The patient is a 76-year-old female with a right renal calculus that is ball valving into her ureteropelvic junction causing intermittent obstructive symptoms. She also struggles with recurrent urinary tract infections and has been recently diagnosed with 1. She is admitted to the hospital for weakness, pain so bad that she cannot walk. Informed consent was obtained for insertion of a right ureteral stent. The patient was taken to the operating room and placed on the operating room table. Anesthesia monitored the head, neck, airway, IV access and vital signs throughout the case. Once anesthesia was apparently administered, the patient was placed into dorsal lithotomy position was prepped and draped in usual sterile fashion. The cystoscope was inserted through the urethra under direct visualization into the urinary bladder. There was significant debris in the bladder including multiple small stone fragments. The right ureteral orifice was visualized and intubated with a 0.035 Glidewire. The wire was inserted through the urethra and into the renal pelvis as visualized on fluoroscopy. The stent was then inserted over the wire with good curling in the renal pelvis as well as the urinary bladder. The patient's bladder was emptied and the stone fragments were flushed from the bladder, and the cystoscope was removed. The patient tolerated the procedure well and was taken to the recovery room in good condition. Grafts/Implants Used: 6 x 26 JJ stent Complications None Admit VTE Documentation VTE Present on Admission: Yes VTE Mechan Device Prophylaxis: SCD's VTE Pharm Prophylaxis ordered?: Yes
[2021-07-25] MEDS: Lidocaine Jelly 2% 20 ML Syringe (URO-JET) 1 APPLIC (17:02)
[2021-07-25] MEDS: Enoxaparin 40 MG/0.4 ML Syringe SC (18:28)
[2021-07-25] MEDS: Cephalexin 500 MG Capsule PO (21:10)
[2021-07-25] MEDS: Divalproex Sodium 250 MG Tablet 500 MG PO (21:10)
[2021-07-25] MEDS: Pravastatin 40 MG Tablet PO (21:10)
[2021-07-25 21:31] LABS: Bedside Glucose 125 mg/dL (70-110)
[2021-07-25] MEDS: Acetaminophen 325 MG Tablet 650 MG PO (22:34)
[2021-07-26] MEDS: Morphine 2 MG/ML Syringe 1 MG IV ×4 (00:06→19:36)
[2021-07-26] MEDS: 0.9% Normal Saline 1,000 ML 100 ML IV ×3 (03:20→20:29)
[2021-07-26 03:48] VITALS: BP 107/65; PULSE 73; RESP 18; TEMP 37.1; O2SAT 95
[2021-07-26] MEDS: oxyCODONE 5 MG Tablet PO ×4 (06:47→21:40)
[2021-07-26] MEDS: Primidone 50 MG Tablet 100 MG PO ×3 (06:47→20:26)
[2021-07-26] MEDS: Cephalexin 500 MG Capsule PO ×3 (06:47→20:26)
[2021-07-26] MEDS: Acetaminophen 325 MG Tablet 650 MG PO ×3 (06:48→22:30)
[2021-07-26 06:55] LABS: Bedside Glucose 83 mg/dL (70-110)
[2021-07-26] MEDS: Senna/Docusate Sodium 1 Tablet 2 TABLET PO (08:16)
[2021-07-26] MEDS: Cholecalciferol (VIT D3) 25 MCG TABLET (1,000 UNITS) PO (08:17)
[2021-07-26] MEDS: Ascorbic Acid 500 MG Tablet PO (08:18)
[2021-07-26 08:26] VITALS: BP 134/73; PULSE 70; RESP 18; TEMP 36.7; O2SAT 98
[2021-07-26] MEDS: Enoxaparin 40 MG/0.4 ML Syringe SC (09:33)
[2021-07-26] MEDS: Famotidine 20 MG Tablet PO (09:34)
[2021-07-26] MEDS: DULoxetine Hcl 30 MG Capsule 90 MG PO (09:34)
[2021-07-26] MEDS: Furosemide 20 MG Tablet 60 MG PO (09:34)
[2021-07-26] MEDS: Pantoprazole Sodium 40 MG Tablet PO (09:34)
[2021-07-26] MEDS: Divalproex Sodium 250 MG Tablet 500 MG PO ×2 (09:34→20:24)
[2021-07-26] MEDS: buPROPion (XL) 150 MG TABLET.XL PO (09:35)
[2021-07-26] MEDS: Ferrous Sulfate 325 MG Tablet PO (11:14)
--- NOTE | 2021-07-26 11:35 | PCM.PN.HOSP ---
Subjective Subjective still with flank pain and dysuria. dysuria worse after cystoscopy. Objective Data Objective Data Vital Signs: Vital Signs Temp Pulse Resp BP Pulse Ox 36.7 C 70 18 134/73 H 98 07/26/21 08:26 07/26/21 08:26 07/26/21 08:26 07/26/21 08:26 07/26/21 08:26 Oxygen Delivery Method Room Air Weight: 140.2 kg Body Mass Index (BMI) 50.5 Intake & Output: Intake and Output for Last 24 Hours 07/24/21 07/25/21 07/26/21 23:59 23:59 23:59 Intake Total 50 / 850 2990.83 / 2990.83 1886.67 / 1886.67 Output Total 0 / 0 500 / 500 Balance 50 / 850 2990.83 / 2990.83 1386.67 / 1386.67 Lab / Micro Data Result Diagrams: 07/25/21 05:39 07/25/21 05:39 Labs: Laboratory Results - last 24 hr 07/25/21 05:39: Hemoglobin A1c 5.0 07/25/21 11:40: POC Glucose 84 07/25/21 16:17: POC Glucose 76 07/25/21 21:04: POC Glucose 125 H 07/26/21 06:45: POC Glucose 83 Micro: Microbiology 07/24/21 15:12 Urine, Clean Catch Urine Culture - Final Presumptive E. coli 07/25/21 08:15 Nasal Secretion SARS-CoV-2 Antigen (Rapid) - Final Physical Exam Const alert and no apparent distress Resp normal respiratory effort, no retractions, no use of accessory muscles and clear to auscultation bilaterally Cardio regular rate, regular rhythm, S1 normal heart sound and S2 normal heart sound GI normal to inspection, nondistended, normoactive bowel sounds, soft to palpation, non-tender and non-distended Extremity normal to inspection Assessment & Plan Assessment/Plan (1) Calculus of right kidney: (2) UTI (urinary tract infection): QUALIFIERS: Urinary tract infection type: acute cystitis Hematuria presence: without hematuria Qualified Code(s): N30.00 - Acute cystitis without hematuria PLAN: 1. UTI. UCx with presumptive E. coli On ceftriaxone Follow-up cultures add Pyridium 2. Nonobstructing right renal calculi Cystoscopy on the 2nd with right ureteral stent will nee to follow up with as outpt for stent removal 3. Debility PT OT evaluate and treat. 4. VTE prophylaxis: LMWH Charges/Coding Visit Charges Inpatient E&M: 62022 Subs Hosp L2
--- NOTE | 2021-07-26 11:56 | CASEMGMT ---
Social Work Note RUKHSANA received call from Marlon Stallings at [facility]. Marlon states pt's CM is Dory Barker (phone: [phone] fax: [phone]). RUKHSANA updated Marlon that plan is for pt to return to [facility] tomorrow. Marlon states understanding. Maria E Martinez HYDRAULIC MECHANIC, BONE CRUSHER
--- NOTE | 2021-07-26 12:17 | CASEMGMT ---
Addendum entered by Maria E Martinez 07/26/21 12:40: RUKHSANA faxed updated clinicals to [facility]. Original Note: Social Work Note RUKHSANA met with pt to confirm discharge plans. Pt confirms plan is to return to [facility] at discharge. Plan: Return to [facility] MARCELLO Martinez VAULT SERVICE MECHANIC, LEGAL COLLECTOR
[2021-07-26] MEDS: Phenazopyridine 95 MG Tablet 190 MG PO ×2 (13:24→20:26)
[2021-07-26 16:29] VITALS: BP 133/66; PULSE 77; RESP 18; TEMP 37.1; O2SAT 98
--- NOTE | 2021-07-26 18:51 | PN_ITS ---
Subjective Subjective Sitting upright in bed, comfortable and watching television. Tolerating oral intake. Does report some discomfort from the stent and increase in urgency and frequency which is normal with her ureteral stent. Pyridium was added today. Objective Data Objective Data Vital Signs: Vital Signs Temp Pulse Resp BP Pulse Ox 98.7 F 77 18 133/66 H 98 07/26/21 16:29 07/26/21 16:29 07/26/21 16:29 07/26/21 16:29 07/26/21 16:29 Oxygen Delivery Method Room Air Weight: 140.2 kg Body Mass Index (BMI) 50.5 Intake & Output: Intake and Output for Last 24 Hours 07/24/21 07/25/21 07/26/21 23:59 23:59 23:59 Intake Total 50 / 850 2990.83 / 2990.83 4686.67 / 4686.67 Output Total 0 / 0 500 / 500 Balance 50 / 850 2990.83 / 2990.83 4186.67 / 4186.67 Lab / Micro Data Result Diagrams: 07/25/21 05:39 07/25/21 05:39 Labs: Laboratory Results - last 24 hr 07/25/21 21:04: POC Glucose 125 H 07/26/21 06:45: POC Glucose 83 Micro: Microbiology 07/24/21 15:12 Urine, Clean Catch Urine Culture - Final Presumptive E. coli 07/25/21 08:15 Nasal Secretion SARS-CoV-2 Antigen (Rapid) - Final Physical Exam Const alert, oriented x3 and no apparent distress HEENT normocephalic and head/scalp atraumatic Chest Chest: symmetrical chest wall rise Resp normal respiratory effort, normal air movement, no retractions and no use of accessory muscles Cardio regular rate and regular rhythm GI soft to palpation and non-tender Skin no jaundice, no petechiae and no mottling Neuro oriented x3 and CN's II-XII intact bilaterally Psych mental status grossly normal Assessment & Plan Assessment/Plan (1) UTI (urinary tract infection): QUALIFIERS: Urinary tract infection type: acute cystitis Hem aturia presence: without hematuria Qualified Code(s): N30.00 - Acute cystitis without hematuria (2) Calculus of right kidney: PLAN: On appropriate antibiotic coverage for her E. coli pansensitive urinary tract infection Stent is in good position We discussed that she will continue to have stent pain and increased urinary incontinence until the stent is removed We are in process of planning her extracorporal shockwave lithotripsy for approximately 2 weeks Okay for discharge from urologic standpoint
[2021-07-26 20:18] VITALS: BP 116/57; PULSE 87; RESP 18; TEMP 36.9; O2SAT 90
[2021-07-26] MEDS: Pravastatin 40 MG Tablet PO (20:26)
--- NOTE | 2021-07-26 22:48 | NURSING ---
PT RESTING IN BED WITH EYES CLOSED, RESP EASY
[2021-07-27] MEDS: Morphine 2 MG/ML Syringe 1 MG IV (00:28)
[2021-07-27] MEDS: 0.9% Saline Lock 10 ML Syringe IV (00:28)
[2021-07-27 02:30] VITALS: BP 123/66; PULSE 72; RESP 18; TEMP 36.6; O2SAT 97
[2021-07-27 05:04] LABS: Absolute Lymphocyte Count 1.37 X10^3/uL (0.83-4.51); Basophil# 0.03 X10^3/uL; Basophil% 0.7 % (0-1); Eosinophil# 0.18 X10^3/uL; Eosinophils% 4.4 % (0-5); Hematocrit 35.9 % (37-47); Hemoglobin 11.6 g/dL (12.0-15.0); Lymphocyte # 1.37 X10^3/ul (0.83-4.51); Lymphocyte % 33.4 % (19-41); Mean Corp Hgb Conc 32.3 g/dL (32-36); Mean Corpuscular Hgb 32.3 pg (27.0-32.0); Monocyte# 0.51 X10^3/uL; Monocyte% 12.4 % (0-10); NRBC Flagged by Analyzer 0 % (0-5); Neutrophil % 48.9 % (47-70); Platelet Count 163 K/mm3 (150-450); RBC Distribution Width SD 47.9 fl (35.1-43.9); Red Blood Count 3.59 M/mm3 (4.2-5.4); White Blood Count 4.1 K/mm3 (4.4-11.0)
[2021-07-27 05:36] LABS: Anion Gap 3 (5-15); BUN 15 mg/dL (7-18); BUN/Creat Ratio 25.1 RATIO (10-20); Calcium,Total 7.7 mg/dL (8.5-10.1); Chloride 108 mmol/L (98-107); EST Glomerular Filtration Rate 104 mL/min (>60); Est Glom Filt Rate - Afr Amer 126 mL/min (>60); Estimated Creatinine Clearance 43.74 ml/min; Glucose 92 mg/dL (74-106); Potassium 4.3 mmol/L (3.5-5.1); Sodium Level 140 mmol/L (136-145)
[2021-07-27] MEDS: Acetaminophen 325 MG Tablet 650 MG PO (06:39)
[2021-07-27] MEDS: oxyCODONE 5 MG Tablet PO ×3 (06:39→18:42)
[2021-07-27] MEDS: Phenazopyridine 95 MG Tablet 190 MG PO ×2 (06:40→12:59)
[2021-07-27] MEDS: Cephalexin 500 MG Capsule PO ×2 (06:40→12:58)
[2021-07-27] MEDS: Primidone 50 MG Tablet 100 MG PO ×2 (06:40→12:59)
[2021-07-27] MEDS: 0.9% Normal Saline 1,000 ML 100 ML IV (06:40)
[2021-07-27 08:30] VITALS: BP 117/59; PULSE 80; RESP 18; TEMP 36.8; O2SAT 98
[2021-07-27] MEDS: Cholecalciferol (VIT D3) 25 MCG TABLET (1,000 UNITS) PO (08:51)
[2021-07-27] MEDS: Ascorbic Acid 500 MG Tablet PO (08:51)
[2021-07-27] MEDS: Fluticasone 0.05% 1 SPRAY NASAL.SRY 2 SPRAY NASAL (09:25)
[2021-07-27] MEDS: Pantoprazole Sodium 40 MG Tablet PO (09:26)
[2021-07-27] MEDS: DULoxetine Hcl 30 MG Capsule 90 MG PO (09:26)
[2021-07-27] MEDS: buPROPion (XL) 150 MG TABLET.XL PO (09:27)
[2021-07-27] MEDS: Famotidine 20 MG Tablet PO (09:27)
[2021-07-27] MEDS: Furosemide 20 MG Tablet 60 MG PO (09:28)
[2021-07-27] MEDS: Enoxaparin 40 MG/0.4 ML Syringe SC (09:28)
[2021-07-27] MEDS: Divalproex Sodium 250 MG Tablet 500 MG PO (09:29)
--- NOTE | 2021-07-27 12:45 | PCM.DC ---
Discharge Instructions Diet Discharge Diet: 2000 Calorie Control Diet Dressing / Incision Call your doctor if you observe: - (worsening abdominal pain. difficulty with urination. ) Follow Up Care Test Results: Test results from this visit will be discussed in further detail at your follow-up appointment, if applicable. Discharge Plan Admission Admit Date/Time: 07/24/21 17:04 Primary Reason for Your Visit: UTI. ureteral stone. Attending Provider: Teofilo Suárez Primary Care Provider: Gonzales Pinto Consulting Providers: Alejandra Villavicencio Discharge Orders/Prescriptions Prescriptions: New cephalexin 500 mg Capsule 500 mg PO Q8 Qty: 15 RF: 0 phenazopyridine [Azo Urinary Pain Relief] 95 mg Tablet 190 mg PO TID Qty: 6 RF: 0 Continued cholecalciferol (vitamin D3) [Vitamin D3] 1,000 UNIT tablet 1,000 unit PO DAILY RF: 0 duloxetine 60 MG capsule 90 mg PO DAILY RF: 0 pravastatin 40 MG tablet 40 mg PO QHS RF: 0 primidone 50 MG tablet 100 mg PO TID RF: 0 fluticasone propionate 1 SPRAY spray,suspension 2 spray NASAL DAILY RF: 0 simethicone 80 MG tablet 80 mg PO TIDCM RF: 0 mirabegron 50 MG tablet extended release 24 hr 100 mg PO QHS RF: 0 gabapentin 400 MG capsule 400 mg PO TID RF: 0 divalproex 500 MG tablet,delayed release (DR/EC) 500 mg PO BID Qty: 0 RF: 0 bupropion HCl 150 MG tablet extended release 24 hr 150 mg PO DAILY RF: 0 alum-mag hydroxide-simeth 355 ML suspension 30 ml PO Q4H PRN PRN (Reason: GI DISTRESS) RF: 0 albuterol sulfate 2.5 MG/3 ML solution for nebulization 2.5 mg INHALATION Q2H PRN PRN (Reason: Dyspnea, wheezing) RF: 0 ascorbic acid (vitamin C) 500 MG tablet 500 mg PO DAILY RF: 0 acetaminophen 500 MG tablet 500 - 1,000 mg PO Q6H PRN PRN (Reason: Pain Score 1-10) RF: 0 apixaban 5 MG tablet 5 mg PO BID Qty: 60 RF: 0 cyanocobalamin (vitamin B-12) 1,000 mcg/mL Solution 1,000 mcg IM QMONTH RF: 0 ferrous sulfate 325 mg (65 mg iron) Tablet 325 mg PO DAILY RF: 0 furosemide 40 MG tablet 60 mg PO DAILY Qty: 0 RF: 0 omeprazole 40 mg capsule,delayed release(DR/EC) 40 mg PO DAILY RF: 0 oxycodone-acetaminophen 5-325 mg tablet 1 tab PO Q6H PRN PRN (Reason: Pain) RF: 0 belladonna alkaloids-opium 16.2-30 mg Suppository 1 supp GA TID PRN (Reason: Pain) RF: 0 Toviaz 4 mg Tablet Extended Release 24 Hr 4 mg PO DAILY RF: 0 d-mannose 500 mg Capsule 1,000 mg PO BID RF: 0 Probiotic 1 cap PO/SL DAILY RF: 0 estradiol 0.01 % (0.1 mg/gram) cream 1 applic VAGINAL TUTHSA RF: 0 Held methenamine hippurate 1 GM tablet 1 gm PO BID Qty: 180 RF: 1 Hold Instructions: Resume on 08/01/21. Discontinued nitrofurantoin monohyd/m-cryst [Macrobid] 100 mg Capsule 100 mg PO BID RF: 0 phenazopyridine [Pyridium] 100 mg tablet 200 mg PO BID PRN (Reason: bladder pain) RF: 0 Referrals / Follow Up: Gonzales Pinto MD [Primary Care Provider] - Within 2 Weeks Alejandra Villavicencio MD [STAFF PHYSICIAN] - Within 2 Weeks Disposition Disposition (needs filled in before D/C Order can be placed): NonSkilled NH/Intermed Care
[2021-07-27] MEDS: Ferrous Sulfate 325 MG Tablet PO (12:58)
--- NOTE | 2021-07-27 12:58 | PCM.DC.SUM ---
Providers Date of Admission: 07/24/21 Primary Care Physician: Dr. Gonzales Pinto MD Consultations 07/24/21 18:26 Consult: Urology Routine Consulting Provider: Alejandra Villavicencio Reason for Consult: right renal calculi EMERGENT Consult: No MD Notified: Yes Date Notified: 07/24/21 Time Notified: 18:27 Method of Notification: Verbal Comments:: notified by ER Reason For Visit: KIDNEY STONE/UTI Diagnosis Discharge Diagnosis (1) UTI (urinary tract infection): Status: Chronic Code(s): N39.0 - Urinary tract infection, site not specified Qualifiers: Urinary tract infection type: acute cystitis Hematuria presence: without hematuria Qualified Code(s): N30.00 - Acute cystitis without hematuria (2) Calculus of right kidney: Status: Acute Code(s): N20.0 - Calculus of kidney Medications at Discharge Home Medications cholecalciferol (vitamin D3) [Vitamin D3] 1,000 unit PO DAILY 12/29/15 duloxetine 90 mg PO DAILY 12/29/15 pravastatin 40 mg PO QHS 08/05/18 fluticasone propionate 2 spray NASAL DAILY 03/18/19 primidone 100 mg PO TID 03/18/19 simethicone 80 mg PO TIDCM 03/18/19 mirabegron 100 mg PO QHS 01/24/20 gabapentin 400 mg PO TID 07/09/20 divalproex 500 mg PO BID #0 07/11/20 bupropion HCl 150 mg PO DAILY 08/09/20 alum-mag hydroxide-simeth 30 ml PO Q4H PRN PRN 08/20/20 albuterol sulfate 2.5 mg INHALATION Q2H PRN PRN vial.neb. 08/22/20 acetaminophen 500 - 1,000 mg PO Q6H PRN PRN 09/28/20 ascorbic acid (vitamin C) 500 mg PO DAILY 09/28/20 apixaban 5 mg PO BID #60 tablet 10/02/20 methenamine hippurate 1 gm PO BID #180 tablet 10/02/20 cyanocobalamin (vitamin B-12) 1,000 mcg IM QMONTH 10/23/20 ferrous sulfate 325 mg PO DAILY 10/23/20 furosemide 60 mg PO DAILY #0 tab 10/26/20 Probiotic 1 cap PO/SL DAILY 07/24/21 Toviaz 4 mg PO DAILY 07/24/21 belladonna alkaloids-opium 1 supp [place] TID PRN 07/24/21 d-mannose 1,000 mg PO BID 07/24/21 estradiol 1 applic VAGINAL TUTHSA 07/24/21 omeprazole 40 mg PO DAILY 07/24/21 oxycodone-acetaminophen 1 tab PO Q6H PRN PRN 07/24/21 cephalexin 500 mg PO Q8 #15 cap 07/27/21 phenazopyridine [Azo Urinary Pain Relief] 190 mg PO TID #6 tab 07/27/21 Hospital Course Operations - (cystoscopy) Procedures None Summary of Care Provided Minutes Spent on Discharge: 35 Hospital Course: 76-year-old female presents with right flank and right-sided abdominal pain. Patient had this ongoing for about 2 weeks and was treated with nitrofurantoin for urinary tract infection. Patient noted a 40 mm calculus in the right external pelvis. No change on repeat imaging. Patient had a UTI with E. coli and was treated appropriately. Patient be discharged with cephalexin. Patient underwent cystoscopy of the and a right ureteral stent performed on the second. Patient will follow up with urology in roughly 2 weeks and the plan is for extra corporal shockwave lithotripsy at that time. Patient be discharged back to her assisted living. Physical Exam Const alert and no apparent distress Resp normal respiratory effort, no retractions, no use of accessory muscles and clear to auscultation bilaterally Cardio regular rate, regular rhythm, S1 normal heart sound and S2 normal heart sound GI normal to inspection, nondistended, normoactive bowel sounds and soft to palpation Weight / BMI Weight Weight: 141.6 kg Body Mass Index (BMI) 50.5 ABG / Lab / Microbiology Data Result Diagrams: 07/27/21 04:40 07/27/21 04:40 Laboratory: Laboratory Results - last 24 hr 07/27/21 04:40: WBC 4.1 L, RBC 3.59 L, Hgb 11.6 L, Hct 35.9 L, MCV 100.0 H, MCH 32.3 H, MCHC 32.3, RDW Std Deviation 47.9 H, RDW Coeff of Chani 13.0, Plt Count 163, MPV 10.0, Immature Gran % (Auto) 0.200, Neut % (Auto) 48.9, Lymph % (Auto) 33.4, Ritchie % (Auto) 12.4 H, Eos % (Auto) 4.4, Baso % (Auto) 0.7, Absolute Neuts (auto) 2.0, Absolute Lymphs (auto) 1.37, Nucleated RBC % 0 07/27/21 04:40: Sodium 140, Potassium 4.3, Chloride 108 H, Carbon Dioxide 29.0, Anion Gap 3 L, BUN 15, Creatinine 0.60, Estim Creat Clear Calc 43.74, Est GFR (MDRD) Af Amer 126, Est GFR (MDRD) Non-Af 104, BUN/Creatinine Ratio 25.1 H, Glucose 92, Calcium 7.7 L Microbiology: Microbiology 07/24/21 19:00 Blood Culture (Wb) - Right Wrist Blood Culture - Preliminary No growth in 48 hours. 07/24/21 18:40 Blood Culture (Wb) - Anticubital Right Blood Culture - Preliminary No growth in 48 hours. 07/24/21 15:12 Urine, Clean Catch Urine Culture - Final Presumptive E. coli 07/25/21 08:15 Nasal Secretion SARS-CoV-2 Antigen (Rapid) - Final D/C Instructions Discharge Diet: 2000 Calorie Control Diet Call your doctor if you observe: - (worsening abdominal pain. difficulty with urination. ) Meaningful Use Info Meaningful Use Diagnoses (Choose all that apply): None applicable Discharge Plan Admission Admit Date/Time: 07/24/21 17:04 Primary Reason for Your Visit: UTI. ureteral stone. Attending Provider: Teofilo Suárez Primary Care Provider: Gonzlaes Pinto Consulting Providers: Alejandra Villavicencio Discharge Orders/Prescriptions Prescriptions: New cephalexin 500 mg Capsule 500 mg PO Q8 Qty: 15 RF: 0 phenazopyridine [Azo Urinary Pain Relief] 95 mg Tablet 190 mg PO TID Qty: 6 RF: 0 Continued cholecalciferol (vitamin D3) [Vitamin D3] 1,000 UNIT tablet 1,000 unit PO DAILY RF: 0 duloxetine 60 MG capsule 90 mg PO DAILY RF: 0 pravastatin 40 MG tablet 40 mg PO QHS RF: 0 primidone 50 MG tablet 100 mg PO TID RF: 0 fluticasone propionate 1 SPRAY spray,suspension 2 spray NASAL DAILY RF: 0 simethicone 80 MG tablet 80 mg PO TIDCM RF: 0 mirabegron 50 MG tablet extended release 24 hr 100 mg PO QHS RF: 0 gabapentin 400 MG capsule 400 mg PO TID RF: 0 divalproex 500 MG tablet,delayed release (DR/EC) 500 mg PO BID Qty: 0 RF: 0 bupropion HCl 150 MG tablet extended release 24 hr 150 mg PO DAILY RF: 0 alum-mag hydroxide-simeth 355 ML suspension 30 ml PO Q4H PRN PRN (Reason: GI DISTRESS) RF: 0 albuterol sulfate 2.5 MG/3 ML solution for nebulization 2.5 mg INHALATION Q2H PRN PRN (Reason: Dyspnea, wheezing) RF: 0 ascorbic acid (vitamin C) 500 MG tablet 500 mg PO DAILY RF: 0 acetaminophen 500 MG tablet 500 - 1,000 mg PO Q6H PRN PRN (Reason: Pain Score 1-10) RF: 0 apixaban 5 MG tablet 5 mg PO BID Qty: 60 RF: 0 cyanocobalamin (vitamin B-12) 1,000 mcg/mL Solution 1,000 mcg IM QMONTH RF: 0 ferrous sulfate 325 mg (65 mg iron) Tablet 325 mg PO DAILY RF: 0 furosemide 40 MG tablet 60 mg PO DAILY Qty: 0 RF: 0 omeprazole 40 mg capsule,delayed release(DR/EC) 40 mg PO DAILY RF: 0 oxycodone-acetaminophen 5-325 mg tablet 1 tab PO Q6H PRN PRN (Reason: Pain) RF: 0 belladonna alkaloids-opium 16.2-30 mg Suppository 1 supp [place] TID PRN (Reason: Pain) RF: 0 Toviaz 4 mg Tablet Extended Release 24 Hr 4 mg PO DAILY RF: 0 d-mannose 500 mg Capsule 1,000 mg PO BID RF: 0 Probiotic 1 cap PO/SL DAILY RF: 0 estradiol 0.01 % (0.1 mg/gram) cream 1 applic VAGINAL TUTHSA RF: 0 Held methenamine hippurate 1 GM tablet 1 gm PO BID Qty: 180 RF: 1 Hold Instructions: Resume on 08/01/21. Discontinued nitrofurantoin monohyd/m-cryst [Macrobid] 100 mg Capsule 100 mg PO BID RF: 0 phenazopyridine [Pyridium] 100 mg tablet 200 mg PO BID PRN (Reason: bladder pain) RF: 0 Referrals / Follow Up: Gonzales Pinto MD [Primary Care Provider] - Within 2 Weeks Alejandra Villavicencio MD [STAFF PHYSICIAN] - Within 2 Weeks Disposition Disposition (needs filled in before D/C Order can be placed): NonSkilled NH/Intermed Care Charges/Coding Visit Charges Inpatient E&M: 88316 Disch Hosp
[2021-07-27] MEDS: Mag Hydrox/Al Hydrox/Simeth 30 ML UDC PO (15:13)
[2021-07-27 17:37] VITALS: BP 140/77; PULSE 74; RESP 18; TEMP 37.2; O2SAT 95
== END 2021-07-27 20:45 | disposition home or self-care (01) | DRG 660 ==
LOC: ED 16:56 → MS3 17:35
PROVIDERS: Urology; Admitting Provider Internal Medicine; Emergency Provider Emergency Medicine; PCP Family Medicine
PROC: 0T768DZ Dilation of Right Ureter with Intraluminal Device, Via Natural or Artificial Opening Endoscopic (ICD-10-PCS; CPT 52332; principal; 2021-07-25 16:50)
DX: N20.0 Calculus of kidney (principal); N30.00 Acute cystitis without hematuria; Z68.43 Body mass index [BMI] 50.0-59.9, adult; D63.8 Anemia in other chronic diseases classified elsewhere; E11.42 Type 2 diabetes mellitus with diabetic polyneuropathy; B96.20 Unspecified Escherichia coli [E. coli] as the cause of diseases classified elsewhere; D50.9 Iron deficiency anemia, unspecified; E66.01 Morbid (severe) obesity due to excess calories; E78.5 Hyperlipidemia, unspecified; I10 Essential (primary) hypertension; M19.90 Unspecified osteoarthritis, unspecified site; K21.9 Gastro-esophageal reflux disease without esophagitis; F41.9 Anxiety disorder, unspecified; Z79.01 Long term (current) use of anticoagulants; F32.A Depression, unspecified; Z80.0 Family history of malignant neoplasm of digestive organs; N32.81 Overactive bladder; Z86.718 Personal history of other venous thrombosis and embolism; Z98.84 Bariatric surgery status; Z87.440 Personal history of urinary (tract) infections
CPT/HCPCS: 36415; 74176; 76000; 80048; 80053; 80076; 81001; 82962; 83036; 85025; 87040; 87086; 87088; 87186; 87426; 93005; 96361; 96374; 96375; 96376; 97110; 97162; 97166; 97535; 97802; 99251; 99285; J7030; A4216; C2617; G0463; J2405

== ENCOUNTER 2021-07-30 16:30 | Emergency (ER) | payer MEDICARE, MEDICAID, SELFPAY ==
[2021-07-30 16:31] VITALS: BP 127/81; PULSE 81; RESP 18; TEMP 36.4; O2SAT 97; BMI 50.7
--- NOTE | 2021-07-30 17:43 | CT_ITS ---
STUDY: CT CERVICAL SPINE WITHOUT CONTRAST REASON FOR EXAM: Female, 76 years old. Trauma RADIATION DOSAGE (If Supplied By Facility): CTDIvol = ( 27.45 ) mGy, DLP = ( 622.23 ) mGycm TECHNIQUE: High resolution transaxial imaging was performed without contrast material. Sagittal and coronal images were reconstructed. Individualized dose optimization techniques were used for this CT. COMPARISON: CT of the cervical spine dated OCTOBER 25, 2019 FINDINGS: Normal craniovertebral junction. Normal anterior atlantoaxial articulation. Normal odontoid process. Normal cervical lordosis. Mild multilevel degenerative changes are present. No visualized acute fracture or compression deformity. No significant central canal stenosis is present. Normal visualized soft tissue structures. CT/Spine Cervical without Contras IMPRESSION: Multilevel degenerative changes, as described above. Electronically Signed: David Rubalcava MD at 18:56 EST ,
--- NOTE | 2021-07-30 17:46 | EX.ED.GENINJ ---
HPI History of Present Illness Chief Complaint: Fall Informant: patient Narrative Narrative: 76-year-old female on Eliquis presenting to the emergency room following a head injury. Patient states that she was bending over to pick something up off the floor when she fell backwards striking the right side of her posterior head on a refrigerator. She also notes pain in to the right side of her neck. No loss of consciousness. No nausea and vomiting. She notes a hematoma where she hit. She was transported via EMS to the emergency department [facility] Medical History Anxiety and depression Arthritis Carpal tunnel syndrome Cataracts, both eyes Chronic anticoagulation Chronic neuropathic pain Chronic pain following surgery or procedure Chronic UTI Closed left arm fracture Cystitis Depression Diabetes Diabetic neuropathy associated with type 2 diabetes mellitus DM II (diabetes mellitus, type II), controlled DVT (deep venous thrombosis) Facet arthropathy, lumbar FHx: cholecystectomy GERD (gastroesophageal reflux disease) GERD (gastroesophageal reflux disease) GI bleed Hearing loss, left Hearing loss, right Heart disease Hiatal hernia High cholesterol History of DVT (deep vein thrombosis) History of gallstones History of stress test HLD (hyperlipidemia) HTN (hypertension) Hypertension 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 Kidney stones Morbid obesity with BMI of 45.0-49.9, adult Neuropathy Non-smoker ROXIE (obstructive sleep apnea) Osteoarthritis Polycystic ovaries Pulmonary embolism Restless legs Segmental and somatic dysfunction of cervical region Segmental and somatic dysfunction of lumbar region Segmental and somatic dysfunction of pelvic region Segmental and somatic dysfunction of thoracic region Home Medications cholecalciferol (vitamin D3) [Vitamin D3] 1,000 unit PO DAILY 12/29/15 [History Last Taken 07/24/21] duloxetine 90 mg PO DAILY 12/29/15 [History Last Taken 07/24/21] pravastatin 40 mg PO QHS 08/05/18 [History Last Taken 07/23/21] fluticasone propionate 2 spray NASAL DAILY 03/18/19 [History Last Taken 07/24/21] primidone 100 mg PO TID 03/18/19 [History Last Taken 07/24/21 12:00] simethicone 80 mg PO TIDCM 03/18/19 [History Last Taken 07/24/21 12:00] mirabegron 100 mg PO QHS 01/24/20 [History Last Taken 07/23/21] gabapentin 400 mg PO TID 07/09/20 [History Last Taken 07/24/21 12:00] divalproex 500 mg PO BID #0 07/11/20 [Rx Last Taken 07/24/21] bupropion HCl 150 mg PO DAILY 08/09/20 [History Last Taken 07/24/21] alum-mag hydroxide-simeth 30 ml PO Q4H PRN PRN 08/20/20 [History Last Taken 10/22/20] albuterol sulfate 2.5 mg INHALATION Q2H PRN PRN vial.neb. 08/22/20 [Rx Last Taken Unknown] acetaminophen 500 - 1,000 mg PO Q6H PRN PRN 09/28/20 [History Last Taken 07/24/21] ascorbic acid (vitamin C) 500 mg PO DAILY 09/28/20 [History Last Taken 07/24/21] apixaban 5 mg PO BID #60 tablet 10/02/20 [Rx Last Taken 07/24/21] methenamine hippurate 1 gm PO BID #180 tablet 10/02/20 [Rx Last Taken 07/24/21] cyanocobalamin (vitamin B-12) 1,000 mcg IM QMONTH 10/23/20 [History Last Taken 07/02/21] ferrous sulfate 325 mg PO DAILY 10/23/20 [History Last Taken 07/24/21] furosemide 60 mg PO DAILY #0 tab 10/26/20 [Rx Last Taken 07/24/21] Probiotic 1 cap PO/SL DAILY 07/24/21 [History Last Taken 07/23/21] Toviaz 4 mg PO DAILY 07/24/21 [History Last Taken 07/24/21] belladonna alkaloids-opium 1 supp [place] TID PRN 07/24/21 [History Last Taken Unknown] d-mannose 1,000 mg PO BID 07/24/21 [History Last Taken 07/24/21] estradiol 1 applic VAGINAL TUTHSA 07/24/21 [History Last Taken 07/21/21] omeprazole 40 mg PO DAILY 07/24/21 [History Last Taken 07/24/21] oxycodone-acetaminophen 1 tab PO Q6H PRN PRN 07/24/21 [History Last Taken 07/24/21 0800] cephalexin 500 mg PO Q8 #15 cap 07/27/21 [Rx Last Taken Unknown] phenazopyridine [Azo Urinary Pain Relief] 190 mg PO TID #6 tab 07/27/21 [Rx Last Taken Unknown] hydrocodone-acetaminophen [Hurley] 1 tab PO BID PRN 07/30/21 [History Last Taken Unknown] nystatin 1 applic TOPICAL TID 07/30/21 [History Last Taken Unknown] polyethylene glycol 3350 [Miralax] 17 g PO DAILY 07/30/21 [History Last Taken Unknown] Allergy/AdvReac Type Severity Reaction Status Date / Time ampicillin [From Unasyn] Allergy Severe Other Verified 07/30/21 16:33 warfarin sodium Allergy Severe Low red Verified 07/30/21 16:33 [From Coumadin] blood cells Family History Father Colon cancer Hypertension Mother Hypertension Surgical History H/O cardiac catheterization History of carpal tunnel surgery History of cholecystectomy History of embolic filter insertion History of gastric bypass History of hysterectomy S/P hysterectomy Total knee replacement status Social History Smoking Status: Never smoker alcohol intake: current alcohol intake frequency: holidays/special occasions only substance use type: does not use what type of physical activity do you participate in: walking and aerobics frequency: 1-2 times per week ROS ROS ED Constitutional Constitutional ED: Denies chills or weight loss Eyes Eyes: Denies change in vision or diplopia ENT ENT ED: Denies ear pain, rhinorrhea or sore throat Cardiovascular Cardiovascular: Denies chest pain, orthopnea, palpitations or racing heartbeat Respiratory/Chest Respiratory/Chest: Denies cough, dyspnea or orthopnea Gastrointestinal Gastrointestinal: Denies abdominal pain, diarrhea, nausea or vomiting Genitourinary Genitourinary ED: Denies dysuria, hematuria or urinary frequency Musculoskeletal Musculoskeletal: Reports neck pain; Denies arthralgias or myalgias Integumentary Denies abscess or rash Neurologic Neurologic: Reports headache(s); Denies weakness Psychiatric Psychiatric: Denies anxiety, depression, suicidal ideation or suicidal thoughts Endocrine Endocrinology: Denies polydipsia, polyphagia or polyuria Allergic/Immunologic Allergic/Immunologic ED: Denies mouth swelling, tongue swelling or urticaria EXAM Physical Exam Const Vital Signs: 07/30/21 16:31 07/30/21 17:23 Temperature 97.5 F L Temperature Source Temporal Pulse Rate 81 Respiratory Rate 18 Respiratory Effort Normal Respiratory Depth Normal Respiratory Pattern Normal Blood Pressure 127/81 H Blood Pressure Mean 96 Pulse Ox 97 Oxygen Delivery Method Room Air Room Air Positive well nourished, well developed and obese General Appearance ED: well developed Nutritional Appearance: obese HEENT Reports normocephalic, head/scalp atraumatic and moist mucous membranes HEENT Narrative: There is a 2 cm hematoma to the right parietal scalp. Negative for atraumatic Eyes PERRL and EOMs intact bilaterally Neck full ROM, no lymphadenopathy, supple and no JVD Neck Narrative: Patient has no midline cervical spine tenderness. She has tenderness over the lateral right cervical musculature. No expanding hematoma bruit noted. Chest Wall inspection of chest normal Resp normal respiratory effort and clear to auscultation bilaterally Cardio regular rate, regular rhythm and no murmurs GI normal to inspection, nondistended, normoactive bowel sounds and non-tender Palpation: soft Back/Spine no CVA tenderness and normal ROM Extremity General Extremety ED: Yes edema; Negative for tenderness General Extremity: edema Neuro oriented x3 and CN's II-XII intact bilaterally Sensorium / Orientation: alert Motor Exam: strength 5/5 throughout Psych mental status grossly normal Mood & Affect: Negative for depressed or tearful Skin no rashes or lesions noted and no wounds MDM MDM MDM Narrative Medical decision making narrative: CT of the cervical spine and head were obtained. These were negative for intracranial hemorrhage or fracture. Patient was cleared by c-collar with the negative CT and by Nexus criteria. Patient will be discharged home with supportive care. Radiography Diagnostic Testing: Clinical Impression(s) from Imaging Studies Cervical Spine CT 07/30/21 17:43 IMPRESSION: Multilevel degenerative changes, as described above. Electronically Signed: David Rubalcava MD at 18:56 EST , Brain CT 07/30/21 17:55 IMPRESSION: 1. Chronic involutional changes of the brain. 2. Mild scalp swelling seen over the left lateral and superior aspect of the frontal bone. Electronically Signed: David Rubalcava MD at 18:48 EST , Discharge Plan Triage Chief Complaint: Fall ED Provider: Tony Martinez Dx/Rx/DC Orders Clinical Impression: Hematoma of right parietal scalp, Head injury, Acute cervical myofascial strain, Chronic anticoagulation Instructions: ED Head Injury (Adult), ED Neck Sprain or Strain Prescriptions: No Action cholecalciferol (vitamin D3) [Vitamin D3] 1,000 UNIT tablet 1,000 unit PO DAILY RF: 0 duloxetine 60 MG capsule 90 mg PO DAILY RF: 0 pravastatin 40 MG tablet 40 mg PO QHS RF: 0 primidone 50 MG tablet 100 mg PO TID RF: 0 fluticasone propionate 1 SPRAY spray,suspension 2 spray NASAL DAILY RF: 0 simethicone 80 MG tablet 80 mg PO TIDCM RF: 0 mirabegron 50 MG tablet extended release 24 hr 100 mg PO QHS RF: 0 gabapentin 400 MG capsule 400 mg PO TID RF: 0 divalproex 500 MG tablet,delayed release (DR/EC) 500 mg PO BID Qty: 0 RF: 0 bupropion HCl 150 MG tablet extended release 24 hr 150 mg PO DAILY RF: 0 alum-mag hydroxide-simeth 355 ML suspension 30 ml PO Q4H PRN PRN (Reason: GI DISTRESS) RF: 0 albuterol sulfate 2.5 MG/3 ML solution for nebulization 2.5 mg INHALATION Q2H PRN PRN (Reason: Dyspnea, wheezing) RF: 0 ascorbic acid (vitamin C) 500 MG tablet 500 mg PO DAILY RF: 0 acetaminophen 500 MG tablet 500 - 1,000 mg PO Q6H PRN PRN (Reason: Pain Score 1-10) RF: 0 methenamine hippurate 1 GM tablet 1 gm PO BID Qty: 180 RF: 1 Hold Instructions: Resume on 08/01/21. apixaban 5 MG tablet 5 mg PO BID Qty: 60 RF: 0 cyanocobalamin (vitamin B-12) 1,000 mcg/mL Solution 1,000 mcg IM QMONTH RF: 0 ferrous sulfate 325 mg (65 mg iron) Tablet 325 mg PO DAILY RF: 0 furosemide 40 MG tablet 60 mg PO DAILY Qty: 0 RF: 0 omeprazole 40 mg capsule,delayed release(DR/EC) 40 mg PO DAILY RF: 0 oxycodone-acetaminophen 5-325 mg tablet 1 tab PO Q6H PRN PRN (Reason: Pain) RF: 0 belladonna alkaloids-opium 16.2-30 mg Suppository 1 supp [place] TID PRN (Reason: Pain) RF: 0 Toviaz 4 mg Tablet Extended Release 24 Hr 4 mg PO DAILY RF: 0 d-mannose 500 mg Capsule 1,000 mg PO BID RF: 0 Probiotic 1 cap PO/SL DAILY RF: 0 estradiol 0.01 % (0.1 mg/gram) cream 1 applic VAGINAL TUTHSA RF: 0 cephalexin 500 mg Capsule 500 mg PO Q8 Qty: 15 RF: 0 phenazopyridine [Azo Urinary Pain Relief] 95 mg Tablet 190 mg PO TID Qty: 6 RF: 0 polyethylene glycol 3350 [Miralax] 17 gram Powder In Packet 17 g PO DAILY RF: 0 hydrocodone-acetaminophen [Hurley] 5-325 mg Tablet 1 tab PO BID PRN (Reason: Pain) RF: 0 nystatin 100,000 unit/gram Powder 1 applic TOPICAL TID RF: 0 Primary Care Provider: Gonzales Pinto Referrals: Gonzales Pinto MD [Primary Care Provider] - As Needed Disposition Disposition: Home, Self Care
--- NOTE | 2021-07-30 17:55 | CT_ITS ---
STUDY: CT BRAIN WITHOUT CONTRAST REASON FOR EXAM: Female, 76 years old. Head trauma RADIATION DOSAGE (If Supplied By Facility): CTDIvol = ( 44.99 ) mGy, DLP = ( 931.09 ) mGycm TECHNIQUE: Transaxial CT imaging of the brain was performed without administration of intravenous contrast material. Individualized dose optimization techniques were used for this CT. COMPARISON: None. FINDINGS: No visualized skull fracture or hemorrhagic contusions of the brain parenchyma. No extra-axial fluid collection is seen. Mild scalp swelling seen over the left lateral and superior aspect of the frontal bone. Normal calvarium. There is moderate cerebral atrophy with widening of the extra-axial spaces and ventricular dilatation. There are areas of decreased attenuation within the white matter tracts of the supratentorial brain, consistent with microvascular disease changes. There are small punctate calcifications of the basal ganglia which are seen in the aging brain as a normal variant. Calcification is seen extending into the right thalamic midbrain junction. Normal brainstem. Normal cerebellum. There is no intracranial hemorrhage. There are no findings of an acute ischemic infarction. Normal visualized paranasal sinuses. CT/Brain/Head without Contrast IMPRESSION: 1. Chronic involutional changes of the brain. 2. Mild scalp swelling seen over the left lateral and superior aspect of the frontal bone. Electronically Signed: David Rubalcava MD at 18:48 EST ,
[2021-07-30 19:28] VITALS: BP 128/65; PULSE 78; RESP 18; O2SAT 94
--- NOTE | 2021-07-30 20:11 | ED.RN ---
WALT MACARIO CALLED AND UPDATED ON PATIENT CONDITION AND DISCHARGE STATUS
--- NOTE | 2021-07-31 12:40 | CASEMGMT ---
BETTY CROFT ED follow-up: Date of ER visit: 07/30/2021 Presenting ER complaint: fall Patient currently resides at [facility]. BETTY CROFT placed call to patient's telephone number listed on demographics- patient answered. Patient states feeling okay today and denies pain, nausea or vomiting. Patient states currently taking prescribed antibiotic (cephalexin) as prescribed for UTI. Patient states she uses walker at all times and currently has a girl that comes in and helps me since that medicine can make me feel dizzy. Patient reports drinking fluids as instructed, including cranberry juice. Patient plans to call Dr. Villavicencio's office today to schedule follow-up appointment. Patient instructed to perform position changes slowly to prevent orthostatic hypotension, dizziness and falls. Encouraged to continue using walker at all times and drink plenty of fluids to remain hydrated. Voices understanding. Patient denies questions or concerns. BETTY Kan CM
== END 2021-07-30 20:55 | disposition home or self-care (01) ==
PROVIDERS: Emergency Provider Emergency Medicine; PCP Family Medicine; Visit Provider Emergency Medicine
DX: S00.03XA Contusion of scalp, initial encounter (principal); E11.40 Type 2 diabetes mellitus with diabetic neuropathy, unspecified; Z79.01 Long term (current) use of anticoagulants; W19.XXXA Unspecified fall, initial encounter; S16.1XXA Strain of muscle, fascia and tendon at neck level, initial encounter; K21.9 Gastro-esophageal reflux disease without esophagitis; G47.33 Obstructive sleep apnea (adult) (pediatric)
CPT/HCPCS: 70450; 72125; 99284

== ENCOUNTER → 2021-08-01 | Outpatient (REF) | payer MEDICARE, MEDICAID, SELFPAY ==
[2021-08-01 09:03] LABS: Hematocrit 38.9 % (37-47); Hemoglobin 11.9 g/dL (12.0-15.0); Mean Corp Hgb Conc 30.6 g/dL (32-36); Mean Corpuscular Hgb 30.8 pg (27.0-32.0); Mean Corpuscular Volume 100.8 fL (81-99); Mean Platelet Vol. 10.8 fl (6.2-12.0); Platelet Count 201 K/mm3 (150-450); RBC Distribution Width CV 13.2 % (11.6-14.6); RBC Distribution Width SD 49.3 fl (35.1-43.9); Red Blood Count 3.86 M/mm3 (4.2-5.4); White Blood Count 4.3 K/mm3 (4.4-11.0)
[2021-08-01 09:12] LABS: Anion Gap 9 (5-15); BUN 21 mg/dL (7-18); BUN/Creat Ratio 27.1 RATIO (10-20); Calcium,Total 8.5 mg/dL (8.5-10.1); Chloride 107 mmol/L (98-107); Creatinine, Serum 0.78 mg/dL (0.55-1.02); EST Glomerular Filtration Rate 77 mL/min (>60); Est Glom Filt Rate - Afr Amer 93 mL/min (>60); Glucose 90 mg/dL (74-106); Potassium 4.2 mmol/L (3.5-5.1); Sodium Level 138 mmol/L (136-145)
== END | disposition home or self-care (01) ==
LOC: OLS.SWAL 07:00
PROVIDERS: PCP Family Medicine; Visit Provider Pediatrics
DX: N39.0 Urinary tract infection, site not specified (principal); N20.0 Calculus of kidney
CPT/HCPCS: 36415; 80048; 85027; 87086

== ENCOUNTER → 2021-08-09 | Outpatient (REF) | payer MEDICARE, MEDICAID, SELFPAY | END | disposition home or self-care (01) | LOC: OLS.SWAL 17:00 | PROVIDERS: PCP Family Medicine; Visit Provider Family Medicine | DX: N39.0 Urinary tract infection, site not specified (principal) | CPT/HCPCS: 87077; 87086; 87088; 87186 ==

== ENCOUNTER 2021-08-10 08:08 | Observation (INO) | payer MEDICARE, MEDICAID, SELFPAY ==
[2021-08-10] VITALS (8 sets, daily range): BP systolic 116–158; BP diastolic 56–97; PULSE 98–115; RESP 16–20; TEMP 36.6–39.4; O2SAT 94–99; BMI 38.4; BMI 51.0
--- NOTE | 2021-08-10 08:19 | CT_ITS ---
STUDY: CT BRAIN WITHOUT CONTRAST REASON FOR EXAM: Female, 76 years old. Fall, head injury RADIATION DOSAGE (If Supplied By Facility): CTDIvol = ( 44.99 ) mGy, DLP = ( 863.60 ) mGycm TECHNIQUE: Transaxial CT imaging of the brain was performed without administration of intravenous contrast material. Individualized dose optimization techniques were used for this CT. COMPARISON: Comparison is made with prior study dated 07/30/2021. FINDINGS: Normal soft tissue structures. Normal calvarium. There is moderate cerebral atrophy with widening of the extra-axial spaces and ventricular dilatation. There are areas of decreased attenuation within the white matter tracts of the supratentorial brain, consistent with microvascular disease changes. There are small punctate calcifications of the basal ganglia which are seen in the aging brain as a normal variant. Normal brainstem. There is mild cerebellar atrophy. There is no intracranial hemorrhage. There are no findings of an acute ischemic infarction. Atherosclerotic calcification of the vertebral arteries and cavernous portions of the internal carotid arteries bilaterally. Opacification of the left sphenoid sinus. CT/Brain/Head without Contrast IMPRESSION: Chronic involutional changes of the brain. Electronically Signed: Joshua Rosario MD at 9:12 EST ,
--- NOTE | 2021-08-10 08:19 | CT_ITS ---
STUDY: CT CERVICAL SPINE WITHOUT CONTRAST REASON FOR EXAM: Female, 76 years old. Fall, neck pain RADIATION DOSAGE (If Supplied By Facility): CTDIvol = ( 28.62 ) mGy, DLP = ( 577.05 ) mGycm TECHNIQUE: High resolution transaxial imaging was performed without contrast material. Sagittal and coronal images were reconstructed. Individualized dose optimization techniques were used for this CT. COMPARISON: None FINDINGS: Normal craniovertebral junction. There are degenerative changes of the anterior atlantoaxial articulation. Normal odontoid process. Normal cervical lordosis. Normal vertebral bodies and posterior osseous elements. C2-3: Normal endplates. Normal disc height and morphology. Normal central canal and intervertebral neuroforamina. C3-4: Facet joint osteoarthritis and hypertrophy. Uncovertebral arthrosis. Moderate degree of left neural foraminal stenosis. C4-5: Moderate degree of disc space narrowing. Uncovertebral arthrosis and facet joint osteoarthritis worse on the left side. Moderate left neural foraminal stenosis. C5-6: Facet joint osteoarthritis. This space narrowing. No significant stenosis seen. C6-7: Normal endplates. Normal disc height and morphology. Normal central canal and intervertebral neuroforamina. C7-T1: Normal endplates. Normal disc height and morphology. Normal central canal and intervertebral neuroforamina. Atherosclerotic calcification of the carotid bifurcations. CT/Spine Cervical without Contras IMPRESSION: Multilevel degenerative changes, as described above. Electronically Signed: Joshua Rosario MD at 9:11 EST ,
--- NOTE | 2021-08-10 08:20 | EX.ED.GENINJ ---
HPI History of Present Illness Chief Complaint: Fall Detail of Chief Complaint: Patient presents with a fall that occurred prior to arrival in the emergenc Informant: patient Narrative Narrative: [facility] this [facility]. Patient states that she was using her walker to go to the bathroom and she unlocked her walker and lost her balance and fell striking her head on the closet door. No loss of consciousness. She complains of head and neck pain. Patient has not had recent illness. Patient tells me she is on Eliquis. She denies chest or abdomen pain. Patient's been having chronic back pain in her low back and that is not a new thing since the fall. Patient currently being treated for UTI and apparently has a ureteral stent. [facility] Medical History Anxiety and depression Arthritis Carpal tunnel syndrome Cataracts, both eyes Chronic anticoagulation Chronic neuropathic pain Chronic pain following surgery or procedure Chronic UTI Closed left arm fracture Cystitis Depression Diabetes Diabetic neuropathy associated with type 2 diabetes mellitus DM II (diabetes mellitus, type II), controlled DVT (deep venous thrombosis) Facet arthropathy, lumbar FHx: cholecystectomy GERD (gastroesophageal reflux disease) GERD (gastroesophageal reflux disease) GI bleed Hearing loss, left Hearing loss, right Heart disease Hiatal hernia High cholesterol History of DVT (deep vein thrombosis) History of gallstones History of stress test HLD (hyperlipidemia) HTN (hypertension) Hypertension 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 Kidney stones Morbid obesity with BMI of 45.0-49.9, adult Neuropathy Non-smoker ROXIE (obstructive sleep apnea) Osteoarthritis Polycystic ovaries Pulmonary embolism Restless legs Segmental and somatic dysfunction of cervical region Segmental and somatic dysfunction of lumbar region Segmental and somatic dysfunction of pelvic region Segmental and somatic dysfunction of thoracic region Home Medications cholecalciferol (vitamin D3) [Vitamin D3] 1,000 unit PO DAILY 12/29/15 [History Last Taken 07/24/21] duloxetine 90 mg PO DAILY 12/29/15 [History Last Taken 07/24/21] pravastatin 40 mg PO QHS 08/05/18 [History Last Taken 07/23/21] fluticasone propionate 2 spray NASAL DAILY 03/18/19 [History Last Taken 07/24/21] primidone 100 mg PO TID 03/18/19 [History Last Taken 07/24/21 12:00] simethicone 80 mg PO TIDCM 03/18/19 [History Last Taken 07/24/21 12:00] mirabegron 100 mg PO QHS 01/24/20 [History Last Taken 07/23/21] gabapentin 400 mg PO TID 07/09/20 [History Last Taken 07/24/21 12:00] divalproex 500 mg PO BID #0 07/11/20 [Rx Last Taken 07/24/21] bupropion HCl 150 mg PO DAILY 08/09/20 [History Last Taken 07/24/21] alum-mag hydroxide-simeth 30 ml PO Q4H PRN PRN 08/20/20 [History Last Taken 10/22/20] albuterol sulfate 2.5 mg INHALATION Q2H PRN PRN vial.neb. 08/22/20 [Rx Last Taken Unknown] acetaminophen 500 - 1,000 mg PO Q6H PRN PRN 09/28/20 [History Last Taken 07/24/21] ascorbic acid (vitamin C) 500 mg PO DAILY 09/28/20 [History Last Taken 07/24/21] apixaban 5 mg PO BID #60 tablet 10/02/20 [Rx Last Taken 07/24/21] methenamine hippurate 1 gm PO BID #180 tablet 10/02/20 [Rx Last Taken 07/24/21] cyanocobalamin (vitamin B-12) 1,000 mcg IM QMONTH 10/23/20 [History Last Taken 07/02/21] ferrous sulfate 325 mg PO DAILY 10/23/20 [History Last Taken 07/24/21] furosemide 60 mg PO DAILY #0 tab 10/26/20 [Rx Last Taken 07/24/21] Probiotic 1 cap PO/SL DAILY 07/24/21 [History Last Taken 07/23/21] Toviaz 4 mg PO DAILY 07/24/21 [History Last Taken 07/24/21] belladonna alkaloids-opium 1 supp PA TID PRN 07/24/21 [History Last Taken Unknown] d-mannose 1,000 mg PO BID 07/24/21 [History Last Taken 07/24/21] estradiol 1 applic VAGINAL TUTHSA 07/24/21 [History Last Taken 07/21/21] omeprazole 40 mg PO DAILY 07/24/21 [History Last Taken 07/24/21] oxycodone-acetaminophen 1 tab PO Q6H PRN PRN 07/24/21 [History Last Taken 07/24/21 0800] hydrocodone-acetaminophen [[place]] 1 tab PO BID PRN 07/30/21 [History Last Taken Unknown] nystatin 1 applic TOPICAL TID 07/30/21 [History Last Taken Unknown] polyethylene glycol 3350 [Miralax] 17 g PO DAILY 07/30/21 [History Last Taken Unknown] Allergy/AdvReac Type Severity Reaction Status Date / Time ampicillin [From Unasyn] Allergy Severe Other Verified 08/10/21 08:18 warfarin sodium Allergy Severe Low red Verified 08/10/21 08:18 [From Coumadin] blood cells Family History Father Colon cancer Hypertension Mother Hypertension Surgical History H/O cardiac catheterization History of carpal tunnel surgery History of cholecystectomy History of embolic filter insertion History of gastric bypass History of hysterectomy S/P hysterectomy Total knee replacement status Social History Smoking Status: Never smoker alcohol intake: current alcohol intake frequency: holidays/special occasions only substance use type: does not use what type of physical activity do you participate in: walking and aerobics frequency: 1-2 times per week ROS ROS ED Constitutional Constitutional ED: Reports systems reviewed and no addt'l complaints, except as documented; Denies body ache(s), change in weight or chills Eyes Eyes: Denies acute decrease in peripheral vision, change in vision, double vision or loss of vision ENT ENT ED: Reports none; Denies ear pain, lip swelling, loss taste/smell, neck pain, otalgia or sore throat Cardiovascular Cardiovascular: Reports none; Denies abdominal pain, chest pain with activity, leg edema, lightheadedness, palpitations, rapid heart rate or syncope Respiratory/Chest Respiratory/Chest: Reports none; Denies change in mental status, dry cough, dyspnea, hemoptysis, shortness of breath at rest or shortness of breath with exertion Gastrointestinal Gastrointestinal: Reports none; Denies abdominal pain, change in stool character, diarrhea, hematemesis, hematochezia, melena, rectal bleeding or vomiting Genitourinary Genitourinary ED: Reports none; Denies abdominal discomfort, anuria, dysuria, genital pain or polyuria Musculoskeletal Musculoskeletal: Reports none, back pain and neck pain; Denies arthralgias, difficulty walking, extremity pain, muscle weakness or myalgias Integumentary Reports none; Denies abscess or rash Neurologic Neurologic: Reports none and headache(s); Denies abnormal gait, confusion, focal weakness, frequent falls, loss of vision, numbness, paresthesias, radicular pain, vertigo or weakness Psychiatric Psychiatric: Reports systems reviewed and no addt'l complaints, except as documented and none; Denies behavioral changes, confusion, difficulty concentrating, hallucinations, suicidal ideation, tactile hallucinations or visual hallucinations Endocrine Endocrinology: Denies none, cold intolerance, excessive sweating, fatigue or heat intolerance Hematologic/Lymphatic Hematologic/Lymphatic: Reports none; Denies anemia, easy bleeding or easy bruising Allergic/Immunologic Allergic/Immunologic ED: Denies as per HPI, none, lip swelling, mouth swelling, throat swelling, tongue swelling or hives EXAM Physical Exam Const Vital Signs: 08/10/21 08:12 08/10/21 08:21 08/10/21 10:11 Temperature 98.8 F Temperature Source Oral Pulse Rate 98 104 H Respiratory Rate 18 18 Respiratory Effort Normal Respiratory Depth Normal Respiratory Pattern Normal Blood Pressure 158/73 H 155/77 H Blood Pressure Mean 101 103 Pulse Ox 99 96 Oxygen Delivery Method Room Air Room Air Positive well nourished and well developed General Appearance ED: well developed and NAD HEENT Reports TM's clear and moist mucous membranes normocephalic and atraumatic; Negative for trauma or tenderness Tympanic Membrane ED: Yes TM's clear Eyes PERRL and EOMs intact bilaterally General Eye ED: Negative for pale conjunctiva or scleral icterus Neck no lymphadenopathy, supple and no JVD Neck Narrative: Diffuse C-spine tenderness on palpation. No bony step-offs noted. General: tenderness Chest Wall inspection of chest normal and palpation of chest normal Chest: Negative for tenderness Resp normal respiratory effort and clear to auscultation bilaterally Effort and Inspection: Negative for respiratory distress or pain with movement Auscultation: Negative for rhonchi, wheezes or diminished lung sounds Cardio regular rate, regular rhythm, S1 normal heart sound, S2 normal heart sound and no murmurs Peripheral Pulses: pulses 2+ throughout GI normal to inspection, nondistended, normoactive bowel sounds, soft to palpation, non-tender, non-distended and no masses Back/Spine no CVA tenderness and no thoracic nor lumbar tenderness Back/Spine Narrative: Patient has some diffuse tenderness palpation of the lumbar spine. Negative straight leg raises. Normal range of motion of the lower extremities. Extremity normal to inspection General Extremety ED: Negative for edema General Extremity: Negative for edema Neuro oriented x3, CN's II-XII intact bilaterally, no sensory deficits noted and gait normal Sensorium / Orientation: awake, alert, oriented to person, oriented to place and oriented to time Motor Exam: strength 5/5 throughout and strength abnormal Psych mental status grossly normal Skin no rashes or lesions noted and no wounds MDM MDM MDM Narrative Medical decision making narrative: Patient had a CT scan of the brain as well as the C-spine which were unremarkable. Patient also had x-rays of the lumbar spine which showed no obvious fractures. Patient was given 1 OxyIR in the emergency department as [facility]. At this point she will be [facility] back [facility] the [facility] and advised to follow-up with primary care physician in 3 to 5 days. Patient apparently is at assisted living and when we tried ambulate the patient in department and she was having a hard time even sitting up in bed because of the pain in her back. She would not be safe to be discharged back to assisted living and may require ECF placement. [employer] worker evaluated patient and she will need to be admitted for placement. Lab Data Labs: Laboratory Results - last 24 hr 08/10/21 08/10/21 08/10/21 10:40 10:40 10:51 WBC Cancelled 8.9 Corrected WBC Cancelled RBC Cancelled 4.18 L Hgb Cancelled 13.4 Hct Cancelled 41.6 MCV Cancelled 99.5 H MCH Cancelled 32.1 H MCHC Cancelled 32.2 RDW Std Deviation Cancelled 47.9 H RDW Coeff of Chani Cancelled 13.1 Plt Count Cancelled 248 MPV Cancelled 9.8 Immature Gran % (Auto) Cancelled 0.800 Neut % (Auto) Cancelled 83.7 H Lymph % (Auto) Cancelled 6.5 L [place] % (Auto) Cancelled 7.6 Eos % (Auto) Cancelled 1.0 Baso % (Auto) Cancelled 0.4 Absolute Neuts (auto) Cancelled 7.5 Absolute Lymphs (auto) Cancelled 0.58 L Total Counted Cancelled Neutrophils % (Manual) Cancelled Band Neutrophils % Cancelled Lymphocytes % (Manual) Cancelled Monocytes % (Manual) Cancelled Eosinophils % (Manual) Cancelled Basophils % (Manual) Cancelled Metamyelocytes % Cancelled Myelocytes % Cancelled Promyelocytes % Cancelled Blast Cells % Cancelled Plasma Cell % (Manual) Cancelled Other Cells % Cancelled Nucleated RBC % Cancelled 0 Nucleated RBCs/100 WBC Cancelled Differential Comment Cancelled Diff Path Review Cancelled Hypersegmented Neuts Cancelled Atypical Lymphocytes Cancelled Reactive Lymphocytes Cancelled Smudge Cells Cancelled Toxic Granulation Cancelled Toxic Vacuolation Cancelled Dohle Bodies Cancelled Florina Rods Cancelled Platelet Estimate Cancelled Plt Morphology Comment Cancelled RBC Morphology Cancelled Polychromasia Cancelled Hypochromasia Cancelled Poikilocytosis Cancelled Basophilic Stippling Cancelled Anisocytosis Cancelled Microcytosis Cancelled Macrocytosis Cancelled Spherocytes Cancelled Sickle Cells Cancelled Target Cells Cancelled Tear Drop Cells Cancelled Ovalocytes Cancelled Stomatocytes Cancelled Lin-[place] Bodies Cancelled Roman Cells Cancelled Bite Cells Cancelled Crenated Cell Cancelled Acanthocytes (Spur) Cancelled Rouleaux Cancelled Schistocytes Cancelled Sodium 137 Potassium 4.4 Chloride 106 Carbon Dioxide 25.0 Anion Gap 6 BUN 17 Creatinine 0.79 Estim Creat Clear Calc 43.74 Est GFR (MDRD) Af Amer 92 Est GFR (MDRD) Non-Af 76 BUN/Creatinine Ratio 21.6 H Glucose 94 Calcium 8.7 Radiography Diagnostic Testing: Clinical Impression(s) from Imaging Studies Brain CT 08/10/21 08:19 IMPRESSION: Chronic involutional changes of the brain. Electronically Signed: Joshua Rosario MD at 9:12 EST , Cervical Spine CT 08/10/21 08:19 IMPRESSION: Multilevel degenerative changes, as described above. Electronically Signed: Joshua Rosario MD at 9:11 EST , Lumbar Spine X-Ray 08/10/21 08:40 IMPRESSION: Grade 2 anterolisthesis of L5 on S1 with spondylolysis of the pars interarticularis of the L5 vertebrae. Inferior vena cava filter is seen. Degenerative changes. Electronically Signed: Joshua Rosario MD at 9:20 EST , Discharge Plan Triage Chief Complaint: Fall ED Provider: Jose Sharp Dx/Rx/DC Orders Clinical Impression: Fall, Closed head injury, Cervical muscle strain, Back pain Instructions: ED Back Pain (Acute or Chronic), ED Mechanical Fall, ED Head Injury (Adult), ED Neck Sprain or Strain Prescriptions: No Action cholecalciferol (vitamin D3) [Vitamin D3] 1,000 UNIT tablet 1,000 unit PO DAILY RF: 0 duloxetine 60 MG capsule 90 mg PO DAILY RF: 0 pravastatin 40 MG tablet 40 mg PO QHS RF: 0 primidone 50 MG tablet 100 mg PO TID RF: 0 fluticasone propionate 1 SPRAY spray,suspension 2 spray NASAL DAILY RF: 0 simethicone 80 MG tablet 80 mg PO TIDCM RF: 0 mirabegron 50 MG tablet extended release 24 hr 100 mg PO QHS RF: 0 gabapentin 400 MG capsule 400 mg PO TID RF: 0 divalproex 500 MG tablet,delayed release (DR/EC) 500 mg PO BID Qty: 0 RF: 0 bupropion HCl 150 MG tablet extended release 24 hr 150 mg PO DAILY RF: 0 alum-mag hydroxide-simeth 355 ML suspension 30 ml PO Q4H PRN PRN (Reason: GI DISTRESS) RF: 0 albuterol sulfate 2.5 MG/3 ML solution for nebulization 2.5 mg INHALATION Q2H PRN PRN (Reason: Dyspnea, wheezing) RF: 0 ascorbic acid (vitamin C) 500 MG tablet 500 mg PO DAILY RF: 0 acetaminophen 500 MG tablet 500 - 1,000 mg PO Q6H PRN PRN (Reason: Pain Score 1-10) RF: 0 methenamine hippurate 1 GM tablet 1 gm PO BID Qty: 180 RF: 1 Hold Instructions: Resume on 08/01/21. apixaban 5 MG tablet 5 mg PO BID Qty: 60 RF: 0 cyanocobalamin (vitamin B-12) 1,000 mcg/mL Solution 1,000 mcg IM QMONTH RF: 0 ferrous sulfate 325 mg (65 mg iron) Tablet 325 mg PO DAILY RF: 0 furosemide 40 MG tablet 60 mg PO DAILY Qty: 0 RF: 0 omeprazole 40 mg capsule,delayed release(DR/EC) 40 mg PO DAILY RF: 0 oxycodone-acetaminophen 5-325 mg tablet 1 tab PO Q6H PRN PRN (Reason: Pain) RF: 0 belladonna alkaloids-opium 16.2-30 mg Suppository 1 supp PA TID PRN (Reason: Pain) RF: 0 Toviaz 4 mg Tablet Extended Release 24 Hr 4 mg PO DAILY RF: 0 d-mannose 500 mg Capsule 1,000 mg PO BID RF: 0 Probiotic 1 cap PO/SL DAILY RF: 0 estradiol 0.01 % (0.1 mg/gram) cream 1 applic VAGINAL TUTHSA RF: 0 polyethylene glycol 3350 [Miralax] 17 gram Powder In Packet 17 g PO DAILY RF: 0 hydrocodone-acetaminophen [[place]] 5-325 mg Tablet 1 tab PO BID PRN (Reason: Pain) RF: 0 nystatin 100,000 unit/gram Powder 1 applic TOPICAL TID RF: 0 Primary Care Provider: Gonzales Pinto Referrals: Gonzales Pinto MD [Primary Care Provider] - 3-5 Days Disposition Disposition: Home, Self Care
--- NOTE | 2021-08-10 08:28 | ED.RN ---
THIS RN CALLED DAUGHTER DAMON PER PT REQUEST. DAMON GIVEN UPDATE ON PATIENT CONDITION. PT TO IMAGING DEPT
--- NOTE | 2021-08-10 08:40 | RAD_ITS ---
STUDY: X-RAY - LUMBAR SPINE REASON FOR EXAM: Female, 76 years old. Fall TECHNIQUE: 3 view(s) of the lumbar spine were obtained. COMPARISON: Comparison is made with prior study dated 02/21/2019. FINDINGS: Normal lumbar lordosis. There is no substantial scoliosis. Grade 2 anterolisthesis of L5 on S1 with spondylolysis of the pars interarticularis of the L5 vertebrae. There is endplate spondylosis of the lumbar vertebrae. There is mild degenerative disc disease with multi-level disc space narrowing. A filter seen within the inferior vena cava. A right-sided double-J stent catheter is seen. There is evidence of a 1.6 cm calculus in the upper pole of the right kidney. RAD/Lumbar Spine 2 or 3 Views IMPRESSION: Grade 2 anterolisthesis of L5 on S1 with spondylolysis of the pars interarticularis of the L5 vertebrae. Inferior vena cava filter is seen. Degenerative changes. Electronically Signed: Joshua Rosario MD at 9:20 EST ,
[2021-08-10] MEDS: oxyCODONE 5 MG Tablet PO (09:26)
--- NOTE | 2021-08-10 10:13 | NURSING ---
THIS RN AND CHARGE NURSE ATTEMPTED TO AMBULATE PATIENT. PATIENT UNABLE TO EVEN SIT UP IN BED COMPLETELY WITH ASSIST X'S 2 WITH WEAKNESS
--- NOTE | 2021-08-10 10:37 | CM.ED ---
Social Work Consult: intermediate placement Referral source: Dr. Sharp Patient from [facility] living at [facility] ([facility]). Patient unable to ambulate in ED, concern that patient is able to return back to the assisted living and Dr. Sharp inquired about possible transition to the prison side of [facility]. This sr. social media & mobile manager met with patient in room. Introduced self and sr. social media & mobile manager role. Patient agreeable to speak with this sr. social media & mobile manager. Patient also voiced concern of returning to assisted living. Patient is open to transitioning to [facility] skilled. This sr. social media & mobile manager inquired as to support person that this sr. social media & mobile manager could call to updated on plan/case. Patient identifies daughter, Guera. Telephone call to [facility], Lino. Lino reports that pre-cert will need to be obtained and this is not possible from the emergency room per Lino. Patient and medical team updated and agreeable with plan for admission to acute care for assisted placement. Telephone call to Guera. Guera updated on all above information and is agreeable with plan as well. Social work to continue to follow. Porfirio ZAMORA, DANIELA
[2021-08-10 11:04] LABS: Anion Gap 6 (5-15); BUN 17 mg/dL (7-18); BUN/Creat Ratio 21.6 RATIO (10-20); Calcium,Total 8.7 mg/dL (8.5-10.1); Chloride 106 mmol/L (98-107); Creatinine, Serum 0.79 mg/dL (0.55-1.02); EST Glomerular Filtration Rate 76 mL/min (>60); Est Glom Filt Rate - Afr Amer 92 mL/min (>60); Estimated Creatinine Clearance 43.74 ml/min; Glucose 94 mg/dL (74-106); Potassium 4.4 mmol/L (3.5-5.1); Sodium Level 137 mmol/L (136-145)
[2021-08-10 11:05] LABS: Absolute Lymphocyte Count 0.58 X10^3/uL (0.83-4.51); Absolute Neutrophil Count 7.5 X10^3/uL (2.0-7.7); Basophil# 0.04 X10^3/uL; Basophil% 0.4 % (0-1); Eosinophil# 0.09 X10^3/uL; Hematocrit 41.6 % (37-47); Hemoglobin 13.4 g/dL (12.0-15.0); Lymphocyte # 0.58 X10^3/ul (0.83-4.51); Lymphocyte % 6.5 % (19-41); Mean Corp Hgb Conc 32.2 g/dL (32-36); Mean Corpuscular Hgb 32.1 pg (27.0-32.0); Mean Corpuscular Volume 99.5 fL (81-99); Mean Platelet Vol. 9.8 fl (6.2-12.0); Monocyte# 0.68 X10^3/uL; Monocyte% 7.6 % (0-10); NRBC Flagged by Analyzer 0 % (0-5); Neutrophil # 7.46 X10^3/uL (2.7-7.7); Neutrophil % 83.7 % (47-70); POSITIVE DIFFERENTIAL YES; Platelet Count 248 K/mm3 (150-450); RBC Distribution Width CV 13.1 % (11.6-14.6); RBC Distribution Width SD 47.9 fl (35.1-43.9); Red Blood Count 4.18 M/mm3 (4.2-5.4); White Blood Count 8.9 K/mm3 (4.4-11.0)
[2021-08-10 11:06] LABS: Differential Indicated SCAN CRITERIA MET
[2021-08-10] MEDS: Ondansetron 4 MG/2 ML Vial IV (11:09)
[2021-08-10] MEDS: 0.9% Normal Saline 1,000 ML 150 ML IV (11:09)
--- NOTE | 2021-08-10 11:18 | NURSING ---
DR JODI SOTO
--- NOTE | 2021-08-10 11:25 | NURSING ---
MEDS SURG OBS JODI FALL, BACK PAIN, WEAKNESS
[2021-08-10 11:26] LABS: Lactic Acid 1.2 mmol/L (0.4-1.9)
--- NOTE | 2021-08-10 11:39 | PCM.HP.STD ---
HPI - General HPI Narrative ADAM NIX, is a 76 F who presents after a fall. Patient states that she just fell and felt weak despite using her walker. Hit her head. Present to the emergency room for evaluation. Patient had a lumbar spine x-ray, cervical spine CT and brain CT that were negative for any acute process. The plan was to get the patient discharged back to her assisted living the patient was too weak to get up. Patient endorses that she has fallen at other times as well. Patient was just discharged here with a urinary tract infection as well as nephrolithiasis. Case management was involved in her case and stated the patient would need to be brought in and have precertification for the patient in order to go to [facility] usp facility. [facility] Medical History Anxiety and depression Arthritis Carpal tunnel syndrome Cataracts, both eyes Chronic anticoagulation Chronic neuropathic pain Chronic pain following surgery or procedure Chronic UTI Closed left arm fracture Cystitis Depression Diabetes Diabetic neuropathy associated with type 2 diabetes mellitus DM II (diabetes mellitus, type II), controlled DVT (deep venous thrombosis) Facet arthropathy, lumbar FHx: cholecystectomy GERD (gastroesophageal reflux disease) GERD (gastroesophageal reflux disease) GI bleed Hearing loss, left Hearing loss, right Heart disease Hiatal hernia High cholesterol History of DVT (deep vein thrombosis) History of gallstones History of stress test HLD (hyperlipidemia) HTN (hypertension) Hypertension 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 Kidney stones Morbid obesity with BMI of 45.0-49.9, adult Neuropathy Non-smoker ROXIE (obstructive sleep apnea) Osteoarthritis Polycystic ovaries Pulmonary embolism Restless legs Segmental and somatic dysfunction of cervical region Segmental and somatic dysfunction of lumbar region Segmental and somatic dysfunction of pelvic region Segmental and somatic dysfunction of thoracic region Home Medications cholecalciferol (vitamin D3) [Vitamin D3] 1,000 unit PO DAILY 12/29/15 [History Last Taken 07/24/21] duloxetine 90 mg PO DAILY 12/29/15 [History Last Taken 07/24/21] pravastatin 40 mg PO QHS 08/05/18 [History Last Taken 07/23/21] fluticasone propionate 2 spray NASAL DAILY 03/18/19 [History Last Taken 07/24/21] primidone 100 mg PO TID 03/18/19 [History Last Taken 07/24/21 12:00] simethicone 80 mg PO TIDCM 03/18/19 [History Last Taken 07/24/21 12:00] mirabegron 100 mg PO QHS 01/24/20 [History Last Taken 07/23/21] gabapentin 400 mg PO TID 07/09/20 [History Last Taken 07/24/21 12:00] divalproex 500 mg PO BID #0 07/11/20 [Rx Last Taken 07/24/21] bupropion HCl 150 mg PO DAILY 08/09/20 [History Last Taken 07/24/21] alum-mag hydroxide-simeth 30 ml PO Q4H PRN PRN 08/20/20 [History Last Taken 10/22/20] albuterol sulfate 2.5 mg INHALATION Q2H PRN PRN vial.neb. 08/22/20 [Rx Last Taken Unknown] acetaminophen 500 - 1,000 mg PO Q6H PRN PRN 09/28/20 [History Last Taken 07/24/21] ascorbic acid (vitamin C) 500 mg PO DAILY 09/28/20 [History Last Taken 07/24/21] apixaban 5 mg PO BID #60 tablet 10/02/20 [Rx Last Taken 07/24/21] methenamine hippurate 1 gm PO BID #180 tablet 10/02/20 [Rx Last Taken 07/24/21] cyanocobalamin (vitamin B-12) 1,000 mcg IM QMONTH 10/23/20 [History Last Taken 07/02/21] ferrous sulfate 325 mg PO DAILY 10/23/20 [History Last Taken 07/24/21] furosemide 60 mg PO DAILY #0 tab 10/26/20 [Rx Last Taken 07/24/21] Probiotic 1 cap PO/SL DAILY 07/24/21 [History Last Taken 07/23/21] Toviaz 4 mg PO DAILY 07/24/21 [History Last Taken 07/24/21] belladonna alkaloids-opium 1 supp MS TID PRN 07/24/21 [History Last Taken Unknown] d-mannose 1,000 mg PO BID 07/24/21 [History Last Taken 07/24/21] estradiol 1 applic VAGINAL TUTHSA 07/24/21 [History Last Taken 07/21/21] omeprazole 40 mg PO DAILY 07/24/21 [History Last Taken 07/24/21] oxycodone-acetaminophen 1 tab PO Q6H PRN PRN 07/24/21 [History Last Taken 07/24/21 0800] hydrocodone-acetaminophen [[place]] 1 tab PO BID PRN 07/30/21 [History Last Taken Unknown] nystatin 1 applic TOPICAL TID 07/30/21 [History Last Taken Unknown] polyethylene glycol 3350 [Miralax] 17 g PO DAILY 07/30/21 [History Last Taken Unknown] Allergy/AdvReac Type Severity Reaction Status Date / Time ampicillin [From Unasyn] Allergy Severe Other Verified 08/10/21 08:18 warfarin sodium Allergy Severe Low red Verified 08/10/21 08:18 [From Coumadin] blood cells Family History Father Colon cancer Hypertension Mother Hypertension Surgical History H/O cardiac catheterization History of carpal tunnel surgery History of cholecystectomy History of embolic filter insertion History of gastric bypass History of hysterectomy S/P hysterectomy Total knee replacement status Social History Smoking Status: Never smoker alcohol intake: current alcohol intake frequency: holidays/special occasions only substance use type: does not use what type of physical activity do you participate in: walking and aerobics frequency: 1-2 times per week ROS ROS Narrative Complains of chronic blurred vision. Patient is unsure if that is because of her not wearing glasses currently. Does claim some abdominal pain. States that she needs to have a bowel movement. All review of systems were negative except as mentioned above in the history of present illness and the other review of systems. Vital Signs Vital Signs Vital Signs: 08/10/21 08:12 08/10/21 08:21 08/10/21 10:11 Temperature 37.1 C Temperature Source Oral Pulse Rate 98 104 H Respiratory Rate 18 18 Respiratory Effort Normal Respiratory Depth Normal Respiratory Pattern Normal Blood Pressure 158/73 H 155/77 H Blood Pressure Mean 101 103 Pulse Ox 99 96 Oxygen Delivery Method Room Air Room Air Weight Weight: 104.7 kg Body Mass Index (BMI) 38.4 Physical Exam Const Constitutional Narrative: Oriented to self. Does not know where she is does not know the date but does follow commands. HEENT normocephalic and head/scalp atraumatic Eyes PERRL Eyes Narrative: Does have bilateral nystagmus Neck no lymphadenopathy Resp normal respiratory effort, no retractions, no use of accessory muscles and clear to auscultation bilaterally Cardio regular rate, regular rhythm, S1 normal heart sound and S2 normal heart sound GI normal to inspection, nondistended, normoactive bowel sounds, soft to palpation, non-tender and non-distended Extremity normal to inspection Neuro Neuro Narrative: Sensation grossly intact Psych Mood & Affect: anxious Results Lab / Micro Data Attestation: I reviewed the patient's lab results. Result Diagrams: 08/10/21 10:51 08/10/21 10:40 Labs: Laboratory Results - last 24 hr 08/10/21 10:40: WBC Cancelled, Corrected WBC Cancelled, RBC Cancelled, Hgb Cancelled, Hct Cancelled, MCV Cancelled, MCH Cancelled, MCHC Cancelled, RDW Std Deviation Cancelled, RDW Coeff of Chani Cancelled, Plt Count Cancelled, MPV Cancelled, Immature Gran % (Auto) Cancelled, Neut % (Auto) Cancelled, Lymph % (Auto) Cancelled, [place] % (Auto) Cancelled, Eos % (Auto) Cancelled, Baso % (Auto) Cancelled, Absolute Neuts (auto) Cancelled, Absolute Lymphs (auto) Cancelled, Total Counted Cancelled, Neutrophils % (Manual) Cancelled, Band Neutrophils % Cancelled, Lymphocytes % (Manual) Cancelled, Monocytes % (Manual) Cancelled, Eosinophils % (Manual) Cancelled, Basophils % (Manual) Cancelled, Metamyelocytes % Cancelled, Myelocytes % Cancelled, Promyelocytes % Cancelled, Blast Cells % Cancelled, Plasma Cell % (Manual) Cancelled, Other Cells % Cancelled, Nucleated RBC % Cancelled, Nucleated RBCs/100 WBC Cancelled, Differential Comment Cancelled, Diff Path Review Cancelled, Hypersegmented Neuts Cancelled, Atypical Lymphocytes Cancelled, Reactive Lymphocytes Cancelled, Smudge Cells Cancelled, Toxic Granulation Cancelled, Toxic Vacuolation Cancelled, Dohle Bodies Cancelled, Florina Rods Cancelled, Platelet Estimate Cancelled, Plt Morphology Comment Cancelled, RBC Morphology Cancelled, Polychromasia Cancelled, Hypochromasia Cancelled, Poikilocytosis Cancelled, Basophilic Stippling Cancelled, Anisocytosis Cancelled, Microcytosis Cancelled, Macrocytosis Cancelled, Spherocytes Cancelled, Sickle Cells Cancelled, Target Cells Cancelled, Tear Drop Cells Cancelled, Ovalocytes Cancelled, Stomatocytes Cancelled, Lin-Tradewinds Bodies Cancelled, Roman Cells Cancelled, Bite Cells Cancelled, Crenated Cell Cancelled, Acanthocytes (Spur) Cancelled, Rouleaux Cancelled, Schistocytes Cancelled 08/10/21 10:40: Sodium 137, Potassium 4.4, Chloride 106, Carbon Dioxide 25.0, Anion Gap 6, BUN 17, Creatinine 0.79, Estim Creat Clear Calc 43.74, Est GFR (MDRD) Af Amer 92, Est GFR (MDRD) Non-Af 76, BUN/Creatinine Ratio 21.6 H, Glucose 94, Calcium 8.7 08/10/21 10:40: Lactic Acid 1.2 08/10/21 10:51: WBC 8.9, RBC 4.18 L, Hgb 13.4, Hct 41.6, MCV 99.5 H, MCH 32.1 H, MCHC 32.2, RDW Std Deviation 47.9 H, RDW Coeff of Chani 13.1, Plt Count 248, MPV 9.8, Immature Gran % (Auto) 0.800, Neut % (Auto) 83.7 H, Lymph % (Auto) 6.5 L, [place] % (Auto) 7.6, Eos % (Auto) 1.0, Baso % (Auto) 0.4, Absolute Neuts (auto) 7.5, Absolute Lymphs (auto) 0.58 L, Nucleated RBC % 0, Differential Comment COMMENT Radiology Impression Brain CT 08/10/21 08:19 IMPRESSION: Chronic involutional changes of the brain. Electronically Signed: Joshua Rosario MD at 9:12 EST , Cervical Spine CT 08/10/21 08:19 IMPRESSION: Multilevel degenerative changes, as described above. Electronically Signed: Joshua Rosario MD at 9:11 EST , Lumbar Spine X-Ray 08/10/21 08:40 IMPRESSION: Grade 2 anterolisthesis of L5 on S1 with spondylolysis of the pars interarticularis of the L5 vertebrae. Inferior vena cava filter is seen. Degenerative changes. Electronically Signed: Joshua Rosario MD at 9:20 EST , Assessment & Plan Assessment/Plan (1) Debility: PLAN: 1. Debility. Patient fell just being too weak. PT OT evaluate and treat. Needs precertification to get to the usp facility at [facility] where she is currently resident as assisted living We will check a urinalysis the patient recent did have a urinary tract infection to make sure that is not a contributing factor. Even the patient does have urinary tract infection I think this can improve her enough to return to assisted living given patient's overall poor performance status. 2. VTE Continue with apixaban 3. Frequent UTIs Continue with methenamine 4. VTE prophylaxis: Not indicated patient is already in apixaban. 5. Discharge planning: Patient brought under observation status as there is no obvious medical necessity for admission at this time. Case management to further assist in regards to usp facility. Patient be here over the weekend and no discharge will be able to be performed until the . Charges/Coding Visit Charges OBSV E&M: 00326 Initial observation care L2
[2021-08-10] MEDS: Acetaminophen 325 MG Tablet 650 MG PO ×2 (13:51→22:51)
[2021-08-10 14:41] LABS: Bedside Glucose 159 mg/dL (70-110)
[2021-08-10] MEDS: Primidone 50 MG Tablet 100 MG PO ×2 (15:35→22:50)
--- NOTE | 2021-08-10 16:15 | CASEMGMT ---
Social Work Note SW updated that pt is from [facility] and requesting [facility] skilled. RUKHSANA placed a call to Jacinto at [facility] and updated her on referral. Jacinto confirms pt will need pre-cert. RUKHSANA faxed referral to [facility]. Plan: [facility] pending pre-cert Maria E Martinez NURSE INTERN, PRODUCTION FOREMAN
[2021-08-10] MEDS: Mirabegron 50 MG TAB.ER.24H 100 MG PO (22:48)
[2021-08-10] MEDS: Divalproex Sodium 250 MG Tablet 500 MG PO (22:49)
[2021-08-10] MEDS: APIXABAN 5 MG TABLET PO (22:49)
[2021-08-10] MEDS: Pravastatin 40 MG Tablet PO (22:51)
[2021-08-10] MEDS: Methenamine Hippurate 1 GM Tablet PO (22:53)
[2021-08-10] MEDS: Nystatin Powder 15gm Bottle 1 APPLIC TOPICAL (22:53)
[2021-08-10 23:23] LABS: Mucous, Urine 0 SEEN /hpf (<or=2+); Squamous Epithelial Cells - UA 0 SEEN /hpf (5-10)
[2021-08-10 23:30] LABS: Color, Urine Yellow (Yellow); Glucose, Dipstick Normal (Normal); Ketone-Dipstick 5 mg/dl (Negative); Leukocyte Esterase-Dipstick 500 /ul (Negative); Nitrite-Dipstick Positive (Negative); Occult Blood-Urine 250 /ul (Negative); Protein-Dipstick 100 mg/dl (Negative); Urine Bilirubin Dipstick Negative (Negative); Urine Clarity Sl. Cloudy (Clear); Urine Urobilinogen Normal (Normal)
--- NOTE | 2021-08-10 23:35 | RAD_ITS ---
STUDY: X-RAY CHEST REASON FOR EXAM: Female, 76 years old. fever, SOB TECHNIQUE: Single AP portable view of the chest. COMPARISON: 09/23/2019 FINDINGS: The lungs are clear and expanded. There is no demonstrated pleural abnormality. Normal size heart. Normal mediastinum and epifanio. Normal visualized pulmonary arteries. Normal visualized aortic arch and descending thoracic aorta. Normal visualized thoracic spine. Normal visualized ribs, clavicles, and shoulders. There is no demonstrated abnormality of the visualized soft tissue structures of the upper abdomen. RAD/Chest 1 View (Portable) IMPRESSION: Normal x-ray examination of the chest. Electronically Signed: Jake Sullivan DO at 4:12 EST ,
[2021-08-10 23:37] LABS: White Blood Cells >100 SEEN /hpf (0-5)
[2021-08-10 23:38] LABS: Bacteria 3+ /hpf (None Seen); Red Blood Cells-Urine 50-100 SEEN /hpf (0-5)
[2021-08-11] VITALS (12 sets, daily range): BP systolic 100–135; BP diastolic 46–75; PULSE 82–105; RESP 18–20; TEMP 36.7–38.6; O2SAT 93–99
--- NOTE | 2021-08-11 04:37 | NURSING ---
Pt complained of headache 9/10 pain, obtained an order from physician for additional pain medication, Nurse went back into the room to assess pain level and the patient was sleeping.
[2021-08-11] MEDS: Acetaminophen 325 MG Tablet 650 MG PO ×4 (05:04→23:58)
[2021-08-11] MEDS: 0.9% Saline Lock 10 ML Syringe IV ×2 (05:06→22:26)
[2021-08-11] MEDS: Ceftriaxone 1 GM/50 ML BAG IV (05:06)
[2021-08-11] MEDS: Primidone 50 MG Tablet 100 MG PO ×3 (05:12→22:25)
[2021-08-11] MEDS: Nystatin Powder 15gm Bottle 1 APPLIC TOPICAL ×3 (05:16→22:31)
[2021-08-11] MEDS: Furosemide 20 MG Tablet 60 MG PO (09:35)
[2021-08-11] MEDS: buPROPion (XL) 150 MG TABLET.XL PO (09:35)
[2021-08-11] MEDS: Tolterodine Tartrate 2 MG CAP.SA PO (09:35)
[2021-08-11] MEDS: Divalproex Sodium 250 MG Tablet 500 MG PO ×2 (09:35→22:24)
[2021-08-11] MEDS: Polyethylene Glycol 3350 17 GM PACKET PO (09:35)
[2021-08-11] MEDS: Cholecalciferol (VIT D3) 25 MCG TABLET (1,000 UNITS) PO (09:36)
[2021-08-11] MEDS: DULoxetine Hcl 30 MG Capsule 90 MG PO (09:36)
[2021-08-11] MEDS: Pantoprazole Sodium 40 MG Tablet PO (09:36)
[2021-08-11] MEDS: APIXABAN 5 MG TABLET PO ×2 (09:36→22:24)
[2021-08-11] MEDS: Methenamine Hippurate 1 GM Tablet PO (09:36)
[2021-08-11] MEDS: Ascorbic Acid 500 MG Tablet PO (09:37)
[2021-08-11] MEDS: oxyCODONE 5 MG Tablet PO (10:42)
--- NOTE | 2021-08-11 11:30 | PCM.PN.HOSP ---
Subjective Subjective Feels rough Objective Data Objective Data Vital Signs: Vital Signs Temp Pulse Resp BP Pulse Ox 37.0 C 89 20 H 116/64 98 08/11/21 09:11 08/11/21 09:11 08/11/21 09:11 08/11/21 09:11 08/11/21 09:11 Oxygen Flow Rate (L/min) 2 Oxygen Delivery Method Nasal Cannula Weight: 139 kg Body Mass Index (BMI) 51.0 Intake & Output: Intake and Output for Last 24 Hours 08/09/21 08/10/21 08/11/21 23:59 23:59 23:59 Intake Total 1000 / 1000 150 / 150 Output Total 800 / 800 200 / 200 Balance 200 / 200 -50 / -50 Lab / Micro Data Result Diagrams: 08/10/21 10:51 08/10/21 10:40 Labs: Laboratory Results - last 24 hr 08/10/21 10:51: Differential Comment COMMENT 08/10/21 14:33: POC Glucose 159 H 08/10/21 23:13: Urine Color Yellow, Urine Clarity Sl. Cloudy, Urine pH 7.0, Ur Specific [place] 1.010, Urine Protein 100 H, Urine Glucose (UA) Normal, Urine Ketones 5 H, Urine Occult Blood 250 H, Urine Nitrite Positive H, Urine Bilirubin Negative, Urine Urobilinogen Normal, Ur Leukocyte Esterase 500 H, Urine RBC 50-100 SEEN, Urine WBC >100 SEEN, Ur Squamous Epith Cells 0 SEEN, Urine Bacteria 3+, Urine Mucus 0 SEEN Radiography Diagnostic Testing: Radiology Impression Chest X-Ray 08/10/21 23:35 IMPRESSION: Normal x-ray examination of the chest. Electronically Signed: Jake Sullivan DO at 4:12 EST , Physical Exam Const alert and no apparent distress Resp normal respiratory effort, no retractions, no use of accessory muscles and clear to auscultation bilaterally Cardio regular rate, regular rhythm, S1 normal heart sound and S2 normal heart sound GI normal to inspection, nondistended, normoactive bowel sounds, soft to palpation, non-tender and non-distended Extremity normal to inspection Neuro Sensorium / Orientation: awake Assessment & Plan Assessment/Plan (1) Debility: (2) UTI (urinary tract infection): QUALIFIERS: Urinary tract infection type: acute cystitis Hematuria presence: without hematuria Qualified Code(s): N30.00 - Acute cystitis without hematuria PLAN: 1. Debility. Patient fell just being too weak. PT OT evaluate and treat. Needs precertification to get to the long-term facility at [facility] where she is currently resident as assisted living We will check a urinalysis the patient recent did have a urinary tract infection to make sure that is not a contributing factor. Even the patient does have urinary tract infection I think this can improve her enough to return to assisted living given patient's overall poor performance status. 2. VTE Continue with apixaban 3. Recurrent UTIs GNR from Cx on the on CTX hold methenamine while on Abx 4. VTE prophylaxis: Not indicated patient is already in apixaban. 5. Discharge planning: Patient brought under observation status as there is no obvious medical necessity for admission at this time. Case management to further assist in regards to long-term facility. Patient be here over the weekend and no discharge will be able to be performed until the . Charges/Coding Visit Charges Inpatient E&M: 07419 Subs Hosp L2
[2021-08-11] MEDS: Ferrous Sulfate 325 MG Tablet PO (11:52)
--- NOTE | 2021-08-11 15:31 | CASEMGMT ---
BETTY CM in to complete WHITE form with patient. RN LANG explained WHITE form to patient, patient voiced understanding. Patient signed WHITE form and filed in chart. Patient provided with copy of signed WHITE form. Patient had no further questions or concerns at this time.
--- NOTE | 2021-08-11 18:23 | NURSING ---
pt a&o and making requests. speech clear. family requesting evaluation. pt shaking. eating. glucosed check. vs checked. discussed antibiotics. primary RN to bedside.
[2021-08-11 18:31] LABS: Bedside Glucose 169 mg/dL (70-110)
[2021-08-11] MEDS: Mirabegron 50 MG TAB.ER.24H 100 MG PO (22:25)
[2021-08-11] MEDS: Pravastatin 40 MG Tablet PO (22:25)
[2021-08-12 01:02] VITALS: BP 115/47; PULSE 95; RESP 22; TEMP 37.7; O2SAT 93
[2021-08-12 05:55] VITALS: BP 119/91; PULSE 86; RESP 18; TEMP 36.8; O2SAT 96
[2021-08-12] MEDS: Acetaminophen 325 MG Tablet 650 MG PO ×3 (05:58→21:22)
[2021-08-12] MEDS: Primidone 50 MG Tablet 100 MG PO ×3 (05:58→20:41)
[2021-08-12] MEDS: Nystatin Powder 15gm Bottle 1 APPLIC TOPICAL ×3 (05:59→20:41)
[2021-08-12 07:47] VITALS: O2SAT 92
[2021-08-12] MEDS: Ascorbic Acid 500 MG Tablet PO (07:54)
[2021-08-12] MEDS: Ferrous Sulfate 325 MG Tablet PO (07:54)
[2021-08-12] MEDS: Cholecalciferol (VIT D3) 25 MCG TABLET (1,000 UNITS) PO (07:54)
[2021-08-12 10:20] VITALS: BP 115/78; PULSE 79; RESP 18; TEMP 37.1; O2SAT 95
[2021-08-12] MEDS: Ceftriaxone 1 GM/50 ML BAG IV (10:21)
[2021-08-12] MEDS: Fluticasone 0.05% 1 SPRAY NASAL.SRY 2 SPRAY NASAL (10:21)
[2021-08-12] MEDS: APIXABAN 5 MG TABLET PO ×2 (10:22→20:40)
[2021-08-12] MEDS: Furosemide 20 MG Tablet 60 MG PO (10:22)
[2021-08-12] MEDS: buPROPion (XL) 150 MG TABLET.XL PO (10:22)
[2021-08-12] MEDS: Pantoprazole Sodium 40 MG Tablet PO (10:22)
[2021-08-12] MEDS: Divalproex Sodium 250 MG Tablet 500 MG PO ×2 (10:23→20:39)
[2021-08-12] MEDS: DULoxetine Hcl 30 MG Capsule 90 MG PO (10:23)
[2021-08-12] MEDS: Tolterodine Tartrate 2 MG CAP.SA PO (10:23)
--- NOTE | 2021-08-12 10:33 | PN.HOSP_ITS ---
Subjective Subjective Does not feel well. +Headache Objective Data Objective Data Vital Signs: Vital Signs Temp Pulse Resp BP Pulse Ox 37.1 C 79 18 115/78 95 08/12/21 10:20 08/12/21 10:20 08/12/21 10:20 08/12/21 10:20 08/12/21 10:20 Oxygen Flow Rate (L/min) 2 Oxygen Delivery Method Room Air Weight: 139 kg Body Mass Index (BMI) 51.0 Intake & Output: Intake and Output for Last 24 Hours 08/10/21 08/11/21 08/12/21 23:59 23:59 23:59 Intake Total 1000 / 1000 150 / 150 Output Total 800 / 800 1300 / 1600 300 / 300 Balance 200 / 200 -1150 / -1450 -300 / -300 Lab / Micro Data Result Diagrams: 08/10/21 10:51 08/10/21 10:40 Labs: Laboratory Results - last 24 hr 08/11/21 18:21: POC Glucose 169 H Micro: Microbiology 08/10/21 23:21 Blood Culture (Wb) - Left Hand Blood Culture - Preliminary GNR lactose web site designer 08/10/21 23:13 Urine Catheter - Catheter Urine Culture - Preliminary GNR lactose web site designer Physical Exam Const alert and no apparent distress Resp normal respiratory effort, no retractions and no use of accessory muscles Cardio regular rate, regular rhythm, S1 normal heart sound and S2 normal heart sound GI normal to inspection, nondistended, normoactive bowel sounds, soft to palpation, non-tender and non-distended Extremity normal to inspection and full ROM Assessment & Plan Assessment/Plan (1) Debility: (2) UTI (urinary tract infection): QUALIFIERS: Urinary tract infection type: acute cystitis Hematuria presence: without hematuria Qualified Code(s): N30.00 - Acute cystitis without hematuria (3) Bacteremia: PLAN: 1. Debility. Patient fell just being too weak. PT OT evaluate and treat. Needs precertification to get to the residential facility at [facility] where she is currently resident as assisted living We will check a urinalysis the patient recent did have a urinary tract infection to make sure that is not a contributing factor. Even the patient does have urinary tract infection I think this can improve her enough to return to assisted living given patient's overall poor performance status. 2. VTE Continue with apixaban 3. Recurrent UTIs watson-sensitive E. coli on CTX hold methenamine while on Abx Continue with ceftriaxone for now until the blood cultures culture out. Likely the same organism. 4. Bacteremia +GNR likely 2/2 UTI Likely change to oral based on the final culture results 5. VTE prophylaxis: Not indicated patient is already in apixaban. 6. Discharge planning: Patient brought under observation status as there is no obvious medical necessity for admission at this time. Case management to further assist in regards to residential facility. Patient be here over the weekend and no discharge will be able to be performed until the . Charges/Coding Visit Charges Inpatient E&M: 29268 Subs Hosp L2
[2021-08-12 15:11] VITALS: BP 135/56; PULSE 87; RESP 18; TEMP 37.2; O2SAT 97
[2021-08-12 20:38] VITALS: BP 128/69; PULSE 82; RESP 18; TEMP 36.7; O2SAT 94
[2021-08-12] MEDS: Mirabegron 50 MG TAB.ER.24H 100 MG PO (20:40)
[2021-08-12] MEDS: Pravastatin 40 MG Tablet PO (20:41)
[2021-08-13 03:58] VITALS: BP 108/71; PULSE 79; RESP 18; TEMP 36.6; O2SAT 93
[2021-08-13] MEDS: Acetaminophen 325 MG Tablet 650 MG PO ×4 (04:04→22:14)
[2021-08-13] MEDS: Primidone 50 MG Tablet 100 MG PO ×3 (04:06→21:22)
[2021-08-13] MEDS: Nystatin Powder 15gm Bottle 1 APPLIC TOPICAL ×3 (04:08→21:23)
--- NOTE | 2021-08-13 07:13 | PCM.PN.HOSP ---
Subjective Subjective Patient is a 76-year-old lady admitted with progressive lysed weakness. Found to have UTI admitted to regular nursing for further management Objective Data Objective Data Vital Signs: Vital Signs Temp Pulse Resp BP Pulse Ox 97.9 F 79 18 108/71 93 08/13/21 03:58 08/13/21 03:58 08/13/21 03:58 08/13/21 03:58 08/13/21 03:58 Oxygen Flow Rate (L/min) 2 Oxygen Delivery Method Room Air Weight: 139 kg Body Mass Index (BMI) 51.0 Intake & Output: Intake and Output for Last 24 Hours 08/11/21 08/12/21 08/13/21 23:59 23:59 23:59 Intake Total 150 / 150 50 / 50 Output Total 1300 / 1600 300 / 300 Balance -1150 / -1450 -250 / -250 Lab / Micro Data Result Diagrams: 08/10/21 10:51 08/10/21 10:40 Micro: Microbiology 08/10/21 23:13 Urine Catheter - Catheter Urine Culture - Final Escherichia coli 08/10/21 23:21 Blood Culture (Wb) - Left Hand Blood Culture - Preliminary GNR lactose bump grader operator Assessment & Plan Assessment/Plan (1) Debility: (2) UTI (urinary tract infection): QUALIFIERS: Hematuria presence: without hematuria Urinary tract infection type: acute cystitis Qualified Code(s): N30.00 - Acute cystitis without hematuria (3) Bacteremia: PLAN: Patient is a 76-year-old lady admitted with progressive lysed weakness. Found to have UTI admitted to regular nursing for further management 1. Acute cystitis with E. coli with bacteremia -Sensitivities reviewed patient has been treated with Rocephin 2. Physical deconditioning - Requested for PT OT eval and drug abuse social worker to assist with discharge planning 3. History of previous DVT and PE ?Patient is on apixaban 4. Dyslipidemia -Patient is on statin therapy, continued at home dose 5. Generalized osteoarthritis ?Pain meds as needed 6. DVT prophylaxis ?Patient already on apixaban Charges/Coding Visit Charges Inpatient E&M: 45310 Subs Hosp L2
[2021-08-13 07:54] VITALS: O2SAT 91
[2021-08-13] MEDS: APIXABAN 5 MG TABLET PO ×2 (08:31→21:22)
[2021-08-13] MEDS: Ascorbic Acid 500 MG Tablet PO (08:31)
[2021-08-13] MEDS: DULoxetine Hcl 30 MG Capsule 90 MG PO (08:31)
[2021-08-13] MEDS: Furosemide 20 MG Tablet 60 MG PO (08:31)
[2021-08-13] MEDS: Cholecalciferol (VIT D3) 25 MCG TABLET (1,000 UNITS) PO (08:32)
[2021-08-13] MEDS: Pantoprazole Sodium 40 MG Tablet PO (08:33)
[2021-08-13] MEDS: Divalproex Sodium 250 MG Tablet 500 MG PO ×2 (08:35→21:22)
[2021-08-13] MEDS: Fluticasone 0.05% 1 SPRAY NASAL.SRY 2 SPRAY NASAL (08:36)
[2021-08-13] MEDS: Tolterodine Tartrate 2 MG CAP.SA PO (08:36)
[2021-08-13] MEDS: buPROPion (XL) 150 MG TABLET.XL PO (08:38)
[2021-08-13] MEDS: Ferrous Sulfate 325 MG Tablet PO (08:41)
[2021-08-13 08:47] VITALS: BP 118/68; PULSE 79; RESP 16; TEMP 36.7; O2SAT 94
[2021-08-13] MEDS: Acyclovir 5% Tube 1 APPLIC TOPICAL ×4 (09:18→21:21)
--- NOTE | 2021-08-13 09:42 | CASEMGMT ---
Social Work Note SW faxed updated clinicals to [facility]. Plan: [facility] pending pre-cert Maria E Martinez ASSOCIATE MUSIC PROFESSOR, CAMPAIGN MANAGER
[2021-08-13] MEDS: 0.9% Saline Lock 10 ML Syringe IV (09:51)
[2021-08-13] MEDS: Ceftriaxone 1 GM/50 ML BAG IV (09:51)
[2021-08-13 11:09] VITALS: BP 133/58; PULSE 78; RESP 16; TEMP 36.5; O2SAT 94
--- NOTE | 2021-08-13 11:30 | CASEMGMT ---
Social Work Note SW placed a call to Jacinto at [facility] and left message regarding pre-cert. SW waiting for call back. Plan: [facility] pending pre-cert Maria E Martinez CLOTH PRINTER HELPER, ADVICE CLERK
--- NOTE | 2021-08-13 13:43 | CASEMGMT ---
Social Work SW checked with Kg Cam at [facility], pt has had no psychiatric hospitalizations or intensive psychiatric services in the last two years. PAS/RR completed and submitted in the [employer] system. DANIELA Umaña
--- NOTE | 2021-08-13 14:24 | CHAPLAIN ---
Type of Pastoral Visit _x__ Initial Visit ___ Follow-up Visit ___ On-call Visit ___ General Patient Visit ___ Spiritual Assessment ___ Family Conference ___ Bereavement ___ Rapid Response ___ Code Blue ___ Other (describe below) Pastoral Care Referral From _x__ Patient ___ Family ___ Nurse ___ Physician ___ Continuous Mining Machine Lode Miner ___ Unit Tender ___ Other (describe below) Sacrament/Intervention _x__ Active listening ___ Anointing ___ Pentecostalism ___ Bereavement ___ Communion ___ Fabiola exploration ___ _x__ Life review _x__ Prayer ___ Reconciliation ___ Sacrament of Sick _x__ Supportive presence ___ Wedding ___ Other (describe below) Pastoral Comments explained her situation and welcomed presence to talk and prayer for support
[2021-08-13 14:51] VITALS: BP 117/67; PULSE 86; RESP 16; TEMP 36.7; O2SAT 95
[2021-08-13] MEDS: Mag Hydrox/Al Hydrox/Simeth 30 ML UDC PO (21:18)
[2021-08-13] MEDS: Mirabegron 50 MG TAB.ER.24H 100 MG PO (21:22)
[2021-08-13] MEDS: Pravastatin 40 MG Tablet PO (21:24)
[2021-08-13 21:25] VITALS: BP 139/67; PULSE 85; RESP 16; TEMP 36.9; O2SAT 96
[2021-08-14] VITALS (7 sets, daily range): BP systolic 112–154; BP diastolic 63–86; PULSE 76–86; RESP 16–18; TEMP 36.5–36.9; O2SAT 94–96
[2021-08-14] MEDS: Acetaminophen 325 MG Tablet 650 MG PO ×3 (04:44→17:10)
[2021-08-14] MEDS: Primidone 50 MG Tablet 100 MG PO ×2 (04:44→14:48)
[2021-08-14] MEDS: Acyclovir 5% Tube 1 APPLIC TOPICAL ×3 (04:45→14:49)
[2021-08-14] MEDS: Nystatin Powder 15gm Bottle 1 APPLIC TOPICAL ×2 (04:45→14:47)
[2021-08-14 05:52] LABS: Absolute Lymphocyte Count 0.97 X10^3/uL (0.83-4.51); Absolute Neutrophil Count 1.5 X10^3/uL (2.0-7.7); Basophil# 0.04 X10^3/uL; Basophil% 1.2 % (0-1); Eosinophil# 0.18 X10^3/uL; Eosinophils% 5.6 % (0-5); Hemoglobin 10.6 g/dL (12.0-15.0); Lymphocyte # 0.97 X10^3/ul (0.83-4.51); Lymphocyte % 30.2 % (19-41); Mean Corp Hgb Conc 34.2 g/dL (32-36); Mean Corpuscular Volume 93.7 fL (81-99); Mean Platelet Vol. 9.8 fl (6.2-12.0); Monocyte# 0.52 X10^3/uL; Monocyte% 16.2 % (0-10); NRBC Flagged by Analyzer 0 % (0-5); Neutrophil # 1.48 X10^3/uL (2.7-7.7); Neutrophil % 46.2 % (47-70); Platelet Count 202 K/mm3 (150-450); RBC Distribution Width CV 12.6 % (11.6-14.6); RBC Distribution Width SD 43.5 fl (35.1-43.9); Red Blood Count 3.31 M/mm3 (4.2-5.4); White Blood Count 3.2 K/mm3 (4.4-11.0)
[2021-08-14 06:32] LABS: Anion Gap 5 (5-15); BUN 11 mg/dL (7-18); BUN/Creat Ratio 22.7 RATIO (10-20); Calcium,Total 7.8 mg/dL (8.5-10.1); Chloride 105 mmol/L (98-107); Creatinine, Serum 0.48 mg/dL (0.55-1.02); EST Glomerular Filtration Rate 132 mL/min (>60); Est Glom Filt Rate - Afr Amer 160 mL/min (>60); Estimated Creatinine Clearance 43.74 ml/min; Glucose 98 mg/dL (74-106); Potassium 3.3 mmol/L (3.5-5.1); Sodium Level 139 mmol/L (136-145)
--- NOTE | 2021-08-14 07:10 | PCM.PN.HOSP ---
Subjective Subjective Patient seen complains of a restless evening patient seen, diagnostic data reviewed significant for potassium of 3.3 Objective Data Objective Data Vital Signs: Vital Signs Temp Pulse Resp BP Pulse Ox 98.4 F 76 18 132/63 H 95 08/14/21 02:00 08/14/21 02:00 08/14/21 02:00 08/14/21 02:00 08/14/21 02:00 Oxygen Flow Rate (L/min) 2 Oxygen Delivery Method Room Air Weight: 139 kg Body Mass Index (BMI) 51.0 Intake & Output: Intake and Output for Last 24 Hours 08/12/21 08/13/21 08/14/21 23:59 23:59 23:59 Intake Total 50 / 50 700 / 1000 550 / 550 Output Total 300 / 300 1300 / 1500 700 / 700 Balance -250 / -250 -600 / -500 -150 / -150 Lab / Micro Data Result Diagrams: 08/14/21 05:20 08/14/21 05:20 Labs: Laboratory Results - last 24 hr 08/14/21 05:20: WBC 3.2 L, RBC 3.31 L, Hgb 10.6 L, Hct 31.0 L, MCV 93.7 D, MCH 32.0, MCHC 34.2 D, RDW Std Deviation 43.5, RDW Coeff of Chani 12.6, Plt Count 202, MPV 9.8, Immature Gran % (Auto) 0.600, Neut % (Auto) 46.2 L, Lymph % (Auto) 30.2, [place] % (Auto) 16.2 H, Eos % (Auto) 5.6 H, Baso % (Auto) 1.2 H, Absolute Neuts (auto) 1.5 L, Absolute Lymphs (auto) 0.97, Nucleated RBC % 0 08/14/21 05:20: Sodium 139, Potassium 3.3 L, Chloride 105, Carbon Dioxide 29.0, Anion Gap 5, BUN 11, Creatinine 0.48 L, Estim Creat Clear Calc 43.74, Est GFR (MDRD) Af Amer 160, Est GFR (MDRD) Non-Af 132, BUN/Creatinine Ratio 22.7 H, Glucose 98, Calcium 7.8 L Micro: Microbiology 08/10/21 23:21 Blood Culture (Wb) - Right Hand Blood Culture - Preliminary No growth in 48 hours. 08/10/21 23:21 Blood Culture (Wb) - Left Hand Blood Culture - Final Escherichia coli 08/10/21 23:13 Urine Catheter - Catheter Urine Culture - Final Escherichia coli Physical Exam Narrative GENERAL: cooperative HEENT: Atraumatic; EYES; Anicteric, Normal Conjunctiva NECK; supple, normal thyroid, RESPIRATORY: Diminished to auscultation CARDIOVASCULAR: Regular S1 S2, GI: soft, normoactive bowel sounds, : No Renal angle tenderness; EXTREMITIES: No edema, no clubbing, MUSCULOSKELETAL: no muscle wasting NEURO: Awake; no lateralizing signs. SKIN: No Rash PSYCH; Flat affect Assessment & Plan Assessment/Plan (1) Debility: (2) UTI (urinary tract infection): QUALIFIERS: Hematuria presence: without hematuria Urinary tract infection type: acute cystitis Qualified Code(s): N30.00 - Acute cystitis without hematuria (3) Bacteremia: PLAN: Patient is a 76-year-old lady admitted with progressive lysed weakness. Found to have UTI admitted to regular nursing for further management 1. Acute cystitis with E. coli with bacteremia -Sensitivities reviewed patient has been treated with Rocephin 2. Physical deconditioning - Requested for PT OT eval and web content & social media manager to assist with discharge planning 3. History of previous DVT and PE ?Patient is on apixaban 4. Dyslipidemia -Patient is on statin therapy, continued at home dose 5. Generalized osteoarthritis ?Pain meds as needed 6. DVT prophylaxis ?Patient already on apixaban 7. Hypokalemia -Corrected per protocol Charges/Coding Visit Charges Inpatient E&M: 69340 Subs Hosp L2
[2021-08-14] MEDS: Ferrous Sulfate 325 MG Tablet PO (09:36)
[2021-08-14] MEDS: Potassium Chloride Oral Tablet 20 MEQ PO ×2 (09:36→16:31)
[2021-08-14] MEDS: Ascorbic Acid 500 MG Tablet PO (09:36)
[2021-08-14] MEDS: Pantoprazole Sodium 40 MG Tablet PO (09:36)
[2021-08-14] MEDS: Cholecalciferol (VIT D3) 25 MCG TABLET (1,000 UNITS) PO (09:37)
[2021-08-14] MEDS: Ceftriaxone 1 GM/50 ML BAG IV (09:49)
[2021-08-14] MEDS: 0.9% Saline Lock 10 ML Syringe IV ×2 (09:49→11:22)
[2021-08-14] MEDS: APIXABAN 5 MG TABLET PO (09:52)
[2021-08-14] MEDS: Divalproex Sodium 250 MG Tablet 500 MG PO (09:52)
[2021-08-14] MEDS: buPROPion (XL) 150 MG TABLET.XL PO (09:53)
[2021-08-14] MEDS: DULoxetine Hcl 30 MG Capsule 90 MG PO (09:53)
[2021-08-14] MEDS: Furosemide 20 MG Tablet 60 MG PO (09:54)
[2021-08-14] MEDS: Tolterodine Tartrate 2 MG CAP.SA PO (09:54)
--- NOTE | 2021-08-14 10:57 | CASEMGMT ---
Social Work Call placed to [facility] to inquire about insurance preauthorization. Preauth has been submitted but not yet obtained. Will await determination from insurance. Plan: [facility], pending precMEG Vora
--- NOTE | 2021-08-14 14:40 | PCM.DC.SUM ---
Providers Date of Admission: 08/10/21 Primary Care Physician: Dr. Gonzales Pinto MD Reason For Visit: DEBILITY Diagnosis Discharge Diagnosis (1) Debility: Status: Acute Code(s): R53.81 - Other malaise (2) UTI (urinary tract infection): Status: Acute Code(s): N39.0 - Urinary tract infection, site not specified Qualifiers: Hematuria presence: without hematuria Urinary tract infection type: acute cystitis Qualified Code(s): N30.00 - Acute cystitis without hematuria (3) Bacteremia: Status: Acute Code(s): R78.81 - Bacteremia Medications at Discharge Home Medications cholecalciferol (vitamin D3) [Vitamin D3] 1,000 unit PO DAILY 12/29/15 duloxetine 90 mg PO DAILY 12/29/15 pravastatin 40 mg PO QHS 08/05/18 fluticasone propionate 2 spray NASAL DAILY 03/18/19 primidone 100 mg PO TID 03/18/19 simethicone 80 mg PO TIDCM 03/18/19 mirabegron 100 mg PO QHS 01/24/20 divalproex 500 mg PO BID #0 07/11/20 bupropion HCl 150 mg PO DAILY 08/09/20 alum-mag hydroxide-simeth 30 ml PO Q4H PRN PRN 08/20/20 albuterol sulfate 2.5 mg INHALATION Q2H PRN PRN vial.neb. 08/22/20 ascorbic acid (vitamin C) 500 mg PO DAILY 09/28/20 apixaban 5 mg PO BID #60 tablet 10/02/20 cyanocobalamin (vitamin B-12) 1,000 mcg IM QMONTH 10/23/20 ferrous sulfate 325 mg PO DAILY 10/23/20 Probiotic 1 cap PO/SL DAILY 07/24/21 Toviaz 4 mg PO DAILY 07/24/21 belladonna alkaloids-opium 1 supp NE TID PRN 07/24/21 omeprazole 40 mg PO DAILY 07/24/21 nystatin 1 applic TOPICAL TID 07/30/21 polyethylene glycol 3350 [Miralax] 17 g PO DAILY 07/30/21 acetaminophen [Tylenol] 650 mg PO Q6H PRN PRN #1 tab 08/14/21 acyclovir 1 applic TOPICAL 5X/DAY 7 Days #0 g 08/14/21 ciprofloxacin HCl 500 mg PO BID 10 Days #20 tab 08/14/21 furosemide 60 mg PO DAILY #0 tab 08/14/21 potassium chloride [Klor-Con M20] 20 meq PO BIDCM #0 tab 08/14/21 Hospital Course Operations None Summary of Care Provided Minutes Spent on Discharge: 40 Hospital Course: Patient is a 76-year-old lady admitted with progressive lysed weakness. Found to have UTI admitted to regular nursing for further management 1. Acute cystitis with E. coli with bacteremia -Sensitivities reviewed patient has been treated with Rocephin -Patient was discharged on p.o. ciprofloxacin for 7 additional days with patient being bacteremic 2. Physical deconditioning - Requested for PT OT eval and social work case manager to assist with discharge planning 3. History of previous DVT and PE ?Patient is on apixaban 4. Dyslipidemia -Patient is on statin therapy, continued at home dose 5. Generalized osteoarthritis ?Pain meds as needed 6. DVT prophylaxis ?Patient already on apixaban 7. Hypokalemia -Corrected per protocol Physical Exam Narrative GENERAL: cooperative HEENT: Atraumatic; EYES; Anicteric, Normal Conjunctiva NECK; supple, normal thyroid, RESPIRATORY: Diminished to auscultation CARDIOVASCULAR: Regular S1 S2, GI: soft, normoactive bowel sounds, : No Renal angle tenderness; EXTREMITIES: No edema, no clubbing, MUSCULOSKELETAL: no muscle wasting NEURO: Awake; no lateralizing signs. SKIN: No Rash PSYCH; Flat affect Weight / BMI Weight Weight: 139 kg Body Mass Index (BMI) 51.0 ABG / Lab / Microbiology Data Result Diagrams: 08/14/21 05:20 08/14/21 05:20 Laboratory: Laboratory Results - last 24 hr 08/14/21 05:20: WBC 3.2 L, RBC 3.31 L, Hgb 10.6 L, Hct 31.0 L, MCV 93.7 D, MCH 32.0, MCHC 34.2 D, RDW Std Deviation 43.5, RDW Coeff of Chani 12.6, Plt Count 202, MPV 9.8, Immature Gran % (Auto) 0.600, Neut % (Auto) 46.2 L, Lymph % (Auto) 30.2, [place] % (Auto) 16.2 H, Eos % (Auto) 5.6 H, Baso % (Auto) 1.2 H, Absolute Neuts (auto) 1.5 L, Absolute Lymphs (auto) 0.97, Nucleated RBC % 0 08/14/21 05:20: Sodium 139, Potassium 3.3 L, Chloride 105, Carbon Dioxide 29.0, Anion Gap 5, BUN 11, Creatinine 0.48 L, Estim Creat Clear Calc 43.74, Est GFR (MDRD) Af Amer 160, Est GFR (MDRD) Non-Af 132, BUN/Creatinine Ratio 22.7 H, Glucose 98, Calcium 7.8 L Microbiology: Microbiology 08/10/21 23:21 Blood Culture (Wb) - Right Hand Blood Culture - Preliminary No growth in 48 hours. 08/10/21 23:21 Blood Culture (Wb) - Left Hand Blood Culture - Final Escherichia coli 08/10/21 23:13 Urine Catheter - Catheter Urine Culture - Final Escherichia coli D/C Instructions Discharge Diet: No restrictions Discharge Activity: Return to Normal Activity Call your doctor if you observe: Fever of 101 or Higher, Shortness of breath, Fainting spells and Chest pain Meaningful Use Info Meaningful Use Diagnoses (Choose all that apply): None applicable Discharge Plan Admission Admit Date/Time: 08/10/21 11:30 Attending Provider: Marlon Lora Primary Care Provider: Gonzales Pinto Instructions Patient Instructions: ED Back Pain (Acute or Chronic), ED Mechanical Fall, ED Head Injury (Adult), ED Neck Sprain or Strain Discharge Orders/Prescriptions Prescriptions: New acetaminophen [Tylenol] 325 mg Tablet 650 mg PO Q6H PRN PRN (Reason: Pain Score 1-10/Temp > 100.7 F) Qty: 1 RF: 0 ciprofloxacin HCl 500 mg Tablet 500 mg PO BID 10 Days Qty: 20 RF: 0 potassium chloride [Klor-Con M20] 20 mEq Tablet,Er Particles/Crystals 20 meq PO BIDCM Qty: 0 RF: 0 acyclovir 5 % Ointment 1 applic topical 5X/DAY 7 Days Qty: 0 RF: 0 furosemide 20 mg Tablet 60 mg PO DAILY Qty: 0 RF: 0 Continued cholecalciferol (vitamin D3) [Vitamin D3] 1,000 UNIT tablet 1,000 unit PO DAILY RF: 0 duloxetine 60 MG capsule 90 mg PO DAILY RF: 0 pravastatin 40 MG tablet 40 mg PO QHS RF: 0 primidone 50 MG tablet 100 mg PO TID RF: 0 fluticasone propionate 1 SPRAY spray,suspension 2 spray NASAL DAILY RF: 0 simethicone 80 MG tablet 80 mg PO TIDCM RF: 0 mirabegron 50 MG tablet extended release 24 hr 100 mg PO QHS RF: 0 divalproex 500 MG tablet,delayed release (DR/EC) 500 mg PO BID Qty: 0 RF: 0 bupropion HCl 150 MG tablet extended release 24 hr 150 mg PO DAILY RF: 0 alum-mag hydroxide-simeth 355 ML suspension 30 ml PO Q4H PRN PRN (Reason: GI DISTRESS) RF: 0 albuterol sulfate 2.5 MG/3 ML solution for nebulization 2.5 mg INHALATION Q2H PRN PRN (Reason: Dyspnea, wheezing) RF: 0 ascorbic acid (vitamin C) 500 MG tablet 500 mg PO DAILY RF: 0 apixaban 5 MG tablet 5 mg PO BID Qty: 60 RF: 0 cyanocobalamin (vitamin B-12) 1,000 mcg/mL Solution 1,000 mcg IM QMONTH RF: 0 ferrous sulfate 325 mg (65 mg iron) Tablet 325 mg PO DAILY RF: 0 omeprazole 40 mg capsule,delayed release(DR/EC) 40 mg PO DAILY RF: 0 belladonna alkaloids-opium 16.2-30 mg Suppository 1 supp NE TID PRN (Reason: Pain) RF: 0 Toviaz 4 mg Tablet Extended Release 24 Hr 4 mg PO DAILY RF: 0 Probiotic 1 cap PO/SL DAILY RF: 0 polyethylene glycol 3350 [Miralax] 17 gram Powder In Packet 17 g PO DAILY RF: 0 nystatin 100,000 unit/gram Powder 1 applic TOPICAL TID RF: 0 Discontinued gabapentin 400 MG capsule 400 mg PO TID RF: 0 acetaminophen 500 MG tablet 500 - 1,000 mg PO Q6H PRN PRN (Reason: Pain Score 1-10) RF: 0 methenamine hippurate 1 GM tablet 1 gm PO BID Qty: 180 RF: 1 Hold Instructions: Resume on 08/01/21. furosemide 40 MG tablet 60 mg PO DAILY Qty: 0 RF: 0 oxycodone-acetaminophen 5-325 mg tablet 1 tab PO Q6H PRN PRN (Reason: Pain) RF: 0 d-mannose 500 mg Capsule 1,000 mg PO BID RF: 0 hydrocodone-acetaminophen [[place]] 5-325 mg Tablet 1 tab PO BID PRN (Reason: Pain) RF: 0 Referrals / Follow Up: Gonzales Pinto MD [Primary Care Provider] - Within 2 Weeks Disposition Disposition (needs filled in before D/C Order can be placed): Shelter Facility Charges/Coding Visit Charges Inpatient E&M: 03063 Disch Hosp
[2021-08-14] MEDS: Mag Hydrox/Al Hydrox/Simeth 30 ML UDC PO (14:47)
--- NOTE | 2021-08-14 14:56 | TREXTCAR_ITS ---
Diet 08/10/21 12:55 Diet: Regular - General Food consistency:: Regular Liquid Consistency:: Regular/Thin Wound(s) lips: Wound Type: blisters Therapies Physical Therapy: Eval and Treat Occupational Therapy: Eval and Treat Problem/Diagnosis (1) Debility: Status: Acute (2) UTI (urinary tract infection): Status: Acute (3) Bacteremia: Status: Acute Allergies/Procedures Done in Hospital Allergies ampicillin [From Unasyn] Allergy (Severe, Verified 08/10/21 08:18) Other Blisters on tongue /throat difficulty breathing sore tongue/throat warfarin sodium [From Coumadin] Allergy (Severe, Verified 08/10/21 08:18) Low red blood cells Type of Care/Length of Stay Estimated LOS: Convalescent Care Less Than 30 days Type of Care Needed: Skilled Rehab Potential: Good Prognosis: Good Additional Orders/Day of Discharge Day of Discharge: 08/14/21 Discharge Plan Admission Admit Date/Time: 08/10/21 11:30 Attending Provider: Marlon Lora Primary Care Provider: Gonzales Pinto Instructions Patient Instructions: ED Back Pain (Acute or Chronic), ED Mechanical Fall, ED Head Injury (Adult), ED Neck Sprain or Strain Discharge Orders/Prescriptions Prescriptions: New acetaminophen [Tylenol] 325 mg Tablet 650 mg PO Q6H PRN PRN (Reason: Pain Score 1-10/Temp > 100.7 F) Qty: 1 RF: 0 ciprofloxacin HCl 500 mg Tablet 500 mg PO BID 10 Days Qty: 20 RF: 0 potassium chloride [Klor-Con M20] 20 mEq Tablet,Er Particles/Crystals 20 meq PO BIDCM Qty: 0 RF: 0 acyclovir 5 % Ointment 1 applic topical 5X/DAY 7 Days Qty: 0 RF: 0 furosemide 20 mg Tablet 60 mg PO DAILY Qty: 0 RF: 0 Continued cholecalciferol (vitamin D3) [Vitamin D3] 1,000 UNIT tablet 1,000 unit PO DAILY RF: 0 duloxetine 60 MG capsule 90 mg PO DAILY RF: 0 pravastatin 40 MG tablet 40 mg PO QHS RF: 0 primidone 50 MG tablet 100 mg PO TID RF: 0 fluticasone propionate 1 SPRAY spray,suspension 2 spray NASAL DAILY RF: 0 simethicone 80 MG tablet 80 mg PO TIDCM RF: 0 mirabegron 50 MG tablet extended release 24 hr 100 mg PO QHS RF: 0 divalproex 500 MG tablet,delayed release (DR/EC) 500 mg PO BID Qty: 0 RF: 0 bupropion HCl 150 MG tablet extended release 24 hr 150 mg PO DAILY RF: 0 alum-mag hydroxide-simeth 355 ML suspension 30 ml PO Q4H PRN PRN (Reason: GI DISTRESS) RF: 0 albuterol sulfate 2.5 MG/3 ML solution for nebulization 2.5 mg INHALATION Q2H PRN PRN (Reason: Dyspnea, wheezing) RF: 0 ascorbic acid (vitamin C) 500 MG tablet 500 mg PO DAILY RF: 0 apixaban 5 MG tablet 5 mg PO BID Qty: 60 RF: 0 cyanocobalamin (vitamin B-12) 1,000 mcg/mL Solution 1,000 mcg IM QMONTH RF: 0 ferrous sulfate 325 mg (65 mg iron) Tablet 325 mg PO DAILY RF: 0 omeprazole 40 mg capsule,delayed release(DR/EC) 40 mg PO DAILY RF: 0 belladonna alkaloids-opium 16.2-30 mg Suppository 1 supp NC TID PRN (Reason: Pain) RF: 0 Toviaz 4 mg Tablet Extended Release 24 Hr 4 mg PO DAILY RF: 0 Probiotic 1 cap PO/SL DAILY RF: 0 polyethylene glycol 3350 [Miralax] 17 gram Powder In Packet 17 g PO DAILY RF: 0 nystatin 100,000 unit/gram Powder 1 applic TOPICAL TID RF: 0 Discontinued gabapentin 400 MG capsule 400 mg PO TID RF: 0 acetaminophen 500 MG tablet 500 - 1,000 mg PO Q6H PRN PRN (Reason: Pain Score 1-10) RF: 0 methenamine hippurate 1 GM tablet 1 gm PO BID Qty: 180 RF: 1 Hold Instructions: Resume on 08/01/21. furosemide 40 MG tablet 60 mg PO DAILY Qty: 0 RF: 0 oxycodone-acetaminophen 5-325 mg tablet 1 tab PO Q6H PRN PRN (Reason: Pain) RF: 0 d-mannose 500 mg Capsule 1,000 mg PO BID RF: 0 hydrocodone-acetaminophen [[place]] 5-325 mg Tablet 1 tab PO BID PRN (Reason: Pain) RF: 0 Referrals / Follow Up: Gonzales Pinto MD [Primary Care Provider] - Within 2 Weeks Disposition Disposition (needs filled in before D/C Order can be placed): [facility]
--- NOTE | 2021-08-14 16:03 | CASEMGMT ---
Social Work Note RUKHSANA received call from Jacinto at [facility] stating pre-cert has been obtained, pt can discharge to [facility] today. RUKHSANA updated physician. Pt will need COVID test. RUKHSANA faxed completed discharge paperwork to [facility] including transfer to extended care facility, signed medication list, any scripts, and PAS/RR and PAS/RR results. Original in SNF folder and copy on pt's chart. SW in to speak with pt. RUKHSANA informed pt that she will discharge to [facility] today. Pt states understanding. Pt states she would like to be transported via cot. RUKHSANA completed transportation form and placed on SNF folder and copy on pt's chart. Plan: [facility] skilled today with Physician's transporting pt via cot Maria E Martinez ACTUARIAL DIRECTOR, [employer]
--- NOTE | 2021-08-14 16:30 | CASEMGMT ---
Social Work Note SW accessed trip assist and arranged transportation via cot for 5:30pm. SW updated RN of transportation time. SW placed a call to Jacinto at [facility] and left message updating her on transportation time. SW in to speak with pt. SW updated pt on transportation time to [facility]. SW informed pt that this worker will call her daughter Guera to update, pt states understanding. RUKHSANA placed a call to pt's daughter Geura and updated her on discharge and transportation time to [facility]. Guera states understanding. RUKHSANA asked baggage clerk to fax COVID test/tool to [facility] once completed. Plan: [facility] skilled today under PAS/RR with Physician's transporting pt via cot at 5:30pm Maria E Martinez MSW, [employer]
--- NOTE | 2021-08-14 17:08 | NURSING ---
REPORT CALLED TO [facility]
== END 2021-08-14 18:00 | disposition skilled nursing facility (03) ==
LOC: ED 11:22 → MS3 11:55
PROVIDERS: Emergency Provider Emergency Medicine; PCP Family Medicine; Visit Provider Internal Medicine
DX: N30.00 Acute cystitis without hematuria (principal); E11.40 Type 2 diabetes mellitus with diabetic neuropathy, unspecified; E66.01 Morbid (severe) obesity due to excess calories; Z68.43 Body mass index [BMI] 50.0-59.9, adult; B96.20 Unspecified Escherichia coli [E. coli] as the cause of diseases classified elsewhere; Z79.01 Long term (current) use of anticoagulants; R53.81 Other malaise; G89.29 Other chronic pain; S09.90XA Unspecified injury of head, initial encounter; M15.9 Polyosteoarthritis, unspecified; W19.XXXA Unspecified fall, initial encounter; E78.5 Hyperlipidemia, unspecified; R78.81 Bacteremia; S16.1XXA Strain of muscle, fascia and tendon at neck level, initial encounter; E87.6 Hypokalemia; Y93.89 Activity, other specified; Y92.121 Bathroom in nursing home as the place of occurrence of the external cause; M19.90 Unspecified osteoarthritis, unspecified site; K21.9 Gastro-esophageal reflux disease without esophagitis; I10 Essential (primary) hypertension; G47.33 Obstructive sleep apnea (adult) (pediatric); M99.01 Segmental and somatic dysfunction of cervical region; M99.02 Segmental and somatic dysfunction of thoracic region; M99.03 Segmental and somatic dysfunction of lumbar region; M99.05 Segmental and somatic dysfunction of pelvic region; Z86.711 Personal history of pulmonary embolism; Z86.718 Personal history of other venous thrombosis and embolism; Z79.899 Other long term (current) drug therapy; Z79.51 Long term (current) use of inhaled steroids
CPT/HCPCS: 36415; 70450; 71045; 72100; 72125; 80048; 81001; 82962; 83605; 85025; 87040; 87077; 87086; 87088; 87186; 87426; 96361; 96365; 96366; 96375; 97110; 97116; 97162; 97167; 97530; 97535; 99218; 99285; J7030; A4216; G0378; J2405

== ENCOUNTER 2021-08-13 09:49 | Outpatient (CLI) | payer MEDICARE, MEDICAID, SELFPAY | END 2021-08-13 23:59 | disposition home or self-care (01) | LOC: PAT 11-09 09:50 | PROVIDERS: PCP Family Medicine; Visit Provider Anesthesiology Pain Medicine | DX: Z53.9 Procedure and treatment not carried out, unspecified reason (principal); M46.96 Unspecified inflammatory spondylopathy, lumbar region; M47.817 Spondylosis without myelopathy or radiculopathy, lumbosacral region; M51.37 Other intervertebral disc degeneration, lumbosacral region; M54.17 Radiculopathy, lumbosacral region; G89.28 Other chronic postprocedural pain; Z79.891 Long term (current) use of opiate analgesic; Z96.653 Presence of artificial knee joint, bilateral; M53.3 Sacrococcygeal disorders, not elsewhere classified; M25.551 Pain in right hip; M16.11 Unilateral primary osteoarthritis, right hip ==

== ENCOUNTER → 2021-08-21 | Outpatient (REF) | payer SELFPAY ==
[2021-08-21 08:43] LABS: Hematocrit 37.6 % (37-47); Hemoglobin 12.4 g/dL (12.0-15.0); Mean Corpuscular Hgb 31.8 pg (27.0-32.0); Mean Corpuscular Volume 96.4 fL (81-99); Mean Platelet Vol. 9.7 fl (6.2-12.0); Platelet Count 342 K/mm3 (150-450); RBC Distribution Width CV 13.2 % (11.6-14.6); RBC Distribution Width SD 47.2 fl (35.1-43.9); White Blood Count 5.7 K/mm3 (4.4-11.0)
[2021-08-21 08:56] LABS: ALB/GLOB Ratio 0.8 RATIO (0.9-2.4); AST(SGOT) 17 U/L (15-37); Alanine Aminotransfer ALT/SGPT 21 U/L (13-56); Albumin, Serum 2.6 g/dL (3.2-5.0); Alkaline Phosphatase 128 U/L (45-117); Anion Gap 3 (5-15); BUN 20 mg/dL (7-18); BUN/Creat Ratio 22.9 RATIO (10-20); Calcium,Total 8.6 mg/dL (8.5-10.1); Chloride 108 mmol/L (98-107); Cholesterol 129 mg/dL (200); Creatinine, Serum 0.87 mg/dL (0.55-1.02); EST Glomerular Filtration Rate 67 mL/min (>60); Est Glom Filt Rate - Afr Amer 81 mL/min (>60); Globulin 3.2 g/dL (2.2-4.2); Glucose 99 mg/dL (74-106); High Density Lipoprotein 57 mg/dL; Potassium 4.3 mmol/L (3.5-5.1); Protein, Total 5.8 g/dL (6.4-8.2); Sodium Level 138 mmol/L (136-145); Triglycerides 85 mg/dL; Very Low Density Lipoprotein 17 mg/dL (5-40)
[2021-08-21 08:58] LABS: Valproic Acid (Depakene) Level 30 ug/mL (50-100)
== END | disposition home or self-care (01) ==
LOC: OLS.SW300 05:00
PROVIDERS: PCP Family Medicine; Visit Provider Family Medicine
DX: E11.9 Type 2 diabetes mellitus without complications (principal)
CPT/HCPCS: 36415; 80053; 80061; 80164; 83036; 85027

== ENCOUNTER 2021-09-04 08:55 | Day surgery (SDC) | payer MEDICARE, MEDICAID, SELFPAY ==
--- NOTE | 2021-09-04 08:23 | PCM.OPRPT ---
Problems Associated Problem List Diagnoses (1) Calculus of right kidney: Report of Operation Date of Procedure: 09/04/21 Pre-Operative Diagnosis: Right renal calculus Post-Operative Diagnosis: Same Surgery/Procedure Performed:: Right renal extracorporal shockwave lithotripsy Surgeon: Alejandra Villavicencio Type of Anesthesia: General Description of Procedure: The patient is a 76-year-old female with a large right renal calculus who presents for definitive management having already had a ureteral stent inserted. Informed consent was obtained. The patient was taken to the operating room and placed on the operating table. Anesthesia monitored the head, neck, airway, IV access and vital signs throughout the case. Once anesthesia was appropriately administered, the patient was positioned on the table. The right renal calculus was easily visible. 3000 shocks were applied to the stone. It appeared to be fragmented at the conclusion of the case. The patient was then awakened and taken to the recovery room in good condition. There were no complications during this procedure. Grafts/Implants Used: None Complications None Admit VTE Documentation VTE Present on Admission: Yes VTE Mechan Device Prophylaxis: SCD's VTE Pharm Prophylaxis ordered?: Yes
--- NOTE | 2021-09-04 08:25 | PCM.DC ---
Discharge Instructions Diet Discharge Diet: No restrictions Activity Discharge Activity: Return to Normal Activity Dressing / Incision Call your doctor if you observe: Fever of 101 or Higher, Inability to urinate and Inability to have a bowel movement Follow Up Care Please Follow Up With: Alejandra Villavicencio MD When: 2-3 weeks in the office with KUB prior. call office for appt Test Results: Test results from this visit will be discussed in further detail at your follow-up appointment, if applicable. Discharge Plan Admission Attending Provider: Alejandra Villavicencio Primary Care Provider: Gonzales Pinto Discharge Orders/Prescriptions Prescriptions: New ondansetron HCl [ondansetron HCl] 8 MG tablet 8 mg PO Q8H PRN PRN (Reason: Nausea) 7 Days Qty: 20 RF: 0 phenazopyridine [Pyridium] 200 MG tablet 200 mg PO TID PRN PRN (Reason: Bladder Spasms) 7 Days Qty: 30 RF: 0 oxycodone-acetaminophen [oxycodone-acetaminophen] 1 TABLET tablet 2 tab PO Q8H PRN PRN (Reason: Pain) 7 Days Qty: 20 RF: 0 cephalexin [cephalexin] 500 MG capsule 500 mg PO Q12 3 Days Qty: 6 RF: 0 Continued cholecalciferol (vitamin D3) [Vitamin D3] 1,000 UNIT tablet 1,000 unit PO DAILY RF: 0 duloxetine 60 MG capsule 90 mg PO DAILY RF: 0 pravastatin 40 MG tablet 40 mg PO QHS RF: 0 primidone 50 MG tablet 100 mg PO TID RF: 0 fluticasone propionate 1 SPRAY spray,suspension 2 spray NASAL DAILY RF: 0 simethicone 80 MG tablet 80 mg PO TIDCM RF: 0 mirabegron 50 MG tablet extended release 24 hr 100 mg PO QHS RF: 0 divalproex 500 MG tablet,delayed release (DR/EC) 500 mg PO BID Qty: 0 RF: 0 bupropion HCl 150 MG tablet extended release 24 hr 150 mg PO DAILY RF: 0 alum-mag hydroxide-simeth 355 ML suspension 30 ml PO Q4H PRN PRN (Reason: GI DISTRESS) RF: 0 albuterol sulfate 2.5 MG/3 ML solution for nebulization 2.5 mg INHALATION Q2H PRN PRN (Reason: Dyspnea, wheezing) RF: 0 ascorbic acid (vitamin C) 500 MG tablet 500 mg PO DAILY RF: 0 apixaban 5 MG tablet 5 mg PO BID Qty: 60 RF: 0 cyanocobalamin (vitamin B-12) 1,000 mcg/mL Solution 1,000 mcg IM QMONTH RF: 0 ferrous sulfate 325 mg (65 mg iron) Tablet 325 mg PO DAILY RF: 0 omeprazole 40 mg capsule,delayed release(DR/EC) 40 mg PO DAILY RF: 0 Probiotic 1 cap PO/SL DAILY RF: 0 polyethylene glycol 3350 [Miralax] 17 gram Powder In Packet 17 g PO DAILY RF: 0 nystatin 100,000 unit/gram Powder 1 applic TOPICAL TID RF: 0 acetaminophen [Tylenol] 325 mg Tablet 650 mg PO Q6H PRN PRN (Reason: Pain Score 1-10/Temp > 100.7 F) Qty: 1 RF: 0 potassium chloride [Klor-Con M20] 20 mEq Tablet,Er Particles/Crystals 20 meq PO BIDCM Qty: 0 RF: 0 furosemide 20 mg Tablet 60 mg PO DAILY Qty: 0 RF: 0 oxycodone-acetaminophen 5-325 mg Tablet 1 tab PO Q12H PRN PRN (Reason: Pain) RF: 0 oxybutynin chloride 5 mg Tablet 5 mg PO DAILY RF: 0 Referrals / Follow Up: Gonzales Pinto MD [Primary Care Provider] - Disposition Disposition (needs filled in before D/C Order can be placed): Home, Self Care
[2021-09-04 09:24] VITALS: BP 111/47; PULSE 74; RESP 16; TEMP 37.1; O2SAT 95; BMI 46.9
[2021-09-04] MEDS: Lactated Ringers 1,000 ML 15 ML IV (09:56)
[2021-09-04 11:35] VITALS: BP 111/47; BP 130/67; PULSE 89; RESP 18; TEMP 37.3; O2SAT 94
[2021-09-04 11:45] VITALS: BP 111/47; BP 120/65; PULSE 78; RESP 18; O2SAT 94
[2021-09-04 12:00] VITALS: BP 111/47; BP 120/65; PULSE 74; RESP 16; O2SAT 96
[2021-09-04 12:16] VITALS: BP 103/55; BP 111/47; PULSE 74; RESP 18; TEMP 36.6; O2SAT 98
[2021-09-04 13:17] VITALS: BP 111/47; BP 134/67; PULSE 88; RESP 16; TEMP 36; O2SAT 93
== END 2021-09-04 23:59 | disposition home or self-care (01) ==
LOC: SDC 08:56 → AC 08:58
PROVIDERS: PCP Family Medicine; Visit Provider Urology
PROC: (CPT 50590; principal; 2021-09-04 10:35)
DX: N20.0 Calculus of kidney (principal); E11.9 Type 2 diabetes mellitus without complications; I10 Essential (primary) hypertension; D64.9 Anemia, unspecified; N39.0 Urinary tract infection, site not specified; R35.1 Nocturia; N39.41 Urge incontinence; N95.2 Postmenopausal atrophic vaginitis
CPT/HCPCS: 50590; 00873; J7120; J2405

== ENCOUNTER → 2021-09-11 | Outpatient (REF) | payer SELFPAY ==
[2021-09-12 08:12] LABS: Mucous, Urine 0 SEEN /hpf (<or=2+); Squamous Epithelial Cells - UA 0 SEEN /hpf (5-10)
[2021-09-12 08:44] LABS: Color, Urine Amber (Yellow); Glucose, Dipstick Normal (Normal); Ketone-Dipstick 5 mg/dl (Negative); Leukocyte Esterase-Dipstick 500 /ul (Negative); Nitrite-Dipstick Positive (Negative); Occult Blood-Urine 250 /ul (Negative); Protein-Dipstick 100 mg/dl (Negative); Urine Clarity Cloudy (Clear); Urine Urobilinogen 1 mg/dl (Normal)
[2021-09-12 08:48] LABS: Urine Bilirubin Dipstick 1 mg/dL (Negative)
[2021-09-12 08:59] LABS: Bacteria 1+ /hpf (None Seen); Red Blood Cells-Urine > 100 SEEN /hpf (0-5); White Blood Cells >100 SEEN /hpf (0-5)
== END | disposition home or self-care (01) ==
LOC: OLS.SW300 16:20
PROVIDERS: PCP Family Medicine; Visit Provider Family Medicine
DX: R30.0 Dysuria (principal)
CPT/HCPCS: 81001; 87077; 87086; 87088; 87186

== ENCOUNTER → 2021-09-18 | Outpatient (REF) | payer SELFPAY ==
[2021-09-18 08:07] LABS: Anion Gap 2 (5-15); BUN 26 mg/dL (7-18); Calcium,Total 8.4 mg/dL (8.5-10.1); Chloride 105 mmol/L (98-107); Creatinine, Serum 1.04 mg/dL (0.55-1.02); EST Glomerular Filtration Rate 55 mL/min (>60); Est Glom Filt Rate - Afr Amer 66 mL/min (>60); Glucose 89 mg/dL (74-106); Potassium 4.7 mmol/L (3.5-5.1); Sodium Level 136 mmol/L (136-145)
== END | disposition home or self-care (01) ==
LOC: OLS.SW300 05:00
PROVIDERS: PCP Family Medicine; Visit Provider Family Medicine
DX: I10 Essential (primary) hypertension (principal)
CPT/HCPCS: 36415; 80048

== ENCOUNTER 2021-09-19 14:22 | Outpatient (CLI) | payer MEDICARE, MEDICAID, SELFPAY ==
--- NOTE | 2021-09-19 14:24 | RAD_ITS ---
EXAM: XR ABDOMEN, 1 VIEW CLINICAL INDICATION: KUB- KIDNEY STONES TECHNIQUE: Frontal supine view of the abdomen/pelvis. This report was created using Gabstr report generation technology. COMPARISON: None. FINDINGS: LOWER THORAX: No acute pathology. GASTROINTESTINAL TRACT: Unremarkable. Non-obstructive. No bowel or stomach distention. ORGANS: Right renal calculi visualized. No organomegaly. BONES/JOINTS: Degenerative findings of the hips. SOFT TISSUES: No acute pathology. TUBES, LINES AND DEVICES: Degenerative findings in the lumbar spine. Double-J left ureteral stent in place. An IVC filter is in place. RAD/Abdomen Single View IMPRESSION: 1. Degenerative findings of the hips. 2. Right renal calculi visualized. Electronically Signed: Rafael Washington MD at 17:16 EDT Reading Location ID and State: [facility] / [place] , Service support ,
== END 2021-09-19 23:59 | disposition home or self-care (01) ==
LOC: MTRAD 14:22
PROVIDERS: PCP Family Medicine; Referring Provider Urology; Visit Provider Urology
DX: N20.0 Calculus of kidney (principal)
CPT/HCPCS: 74018

== ENCOUNTER → 2021-09-22 | Outpatient (REF) | payer MEDICARE, MEDICAID, SELFPAY ==
[2021-09-22 23:28] LABS: Mucous, Urine 0 SEEN /hpf (<or=2+)
[2021-09-22 23:33] LABS: Color, Urine Brown (Yellow); Glucose, Dipstick Normal (Normal); Ketone-Dipstick 5 mg/dl (Negative); Leukocyte Esterase-Dipstick 500 /ul (Negative); Nitrite-Dipstick Negative (Negative); Occult Blood-Urine 250 /ul (Negative); Protein-Dipstick 100 mg/dl (Negative); Specific Gravity, Urine 1.015 (1.002-1.030); Urine Bilirubin Dipstick Negative (Negative); Urine Clarity Cloudy (Clear); Urine Urobilinogen Normal (Normal)
[2021-09-22 23:50] LABS: Amorphous Sediment R; Calcium Oxalate Crystals Ur RARE /hpf (<or=2+); Red Blood Cells-Urine 50-100 SEEN /hpf (0-5); Triple Phosphate Crystals Ur 1+ /hpf (<or=1+)
[2021-09-22 23:51] LABS: White Blood Cells 10-25 SEEN /hpf (0-5)
[2021-09-22 23:52] LABS: Bacteria 4+ /hpf (None Seen); Squamous Epithelial Cells - UA 0-5 SEEN /hpf (5-10)
== END | disposition home or self-care (01) ==
LOC: OLS.SWAL 22:00
PROVIDERS: PCP Family Medicine; Visit Provider Urology
DX: N39.0 Urinary tract infection, site not specified (principal)
CPT/HCPCS: 81001; 87086; 87088; 87186

== ENCOUNTER → 2021-09-24 | Outpatient (REF) | payer MEDICARE, MEDICAID, SELFPAY ==
[2021-09-24 07:34] LABS: Hematocrit 31.5 % (37-47); Hemoglobin 10.1 g/dL (12.0-15.0); Mean Corp Hgb Conc 32.1 g/dL (32-36); Mean Corpuscular Volume 96.6 fL (81-99); Mean Platelet Vol. 10.4 fl (6.2-12.0); Platelet Count 246 K/mm3 (150-450); RBC Distribution Width CV 13.2 % (11.6-14.6); RBC Distribution Width SD 47.4 fl (35.1-43.9); Red Blood Count 3.26 M/mm3 (4.2-5.4); White Blood Count 4.8 K/mm3 (4.4-11.0)
[2021-09-24 07:52] LABS: Anion Gap 4 (5-15); BUN 19 mg/dL (7-18); BUN/Creat Ratio 29.7 RATIO (10-20); Calcium,Total 8.1 mg/dL (8.5-10.1); Chloride 107 mmol/L (98-107); Creatinine, Serum 0.64 mg/dL (0.55-1.02); EST Glomerular Filtration Rate 96 mL/min (>60); Est Glom Filt Rate - Afr Amer 116 mL/min (>60); Glucose 85 mg/dL (74-106); Potassium 4.2 mmol/L (3.5-5.1); Sodium Level 138 mmol/L (136-145)
== END | disposition home or self-care (01) ==
LOC: OLS.SWAL 04:00
PROVIDERS: PCP Family Medicine; Visit Provider Family Medicine
DX: I10 Essential (primary) hypertension (principal)
CPT/HCPCS: 36415; 80048; 85027

== ENCOUNTER 2021-09-30 14:55 | Inpatient (IN) | payer MEDICARE, MEDICAID, SELFPAY ==
[2021-09-30 14:56] VITALS: BP 136/67; PULSE 85; RESP 16; O2SAT 98
[2021-09-30 14:57] VITALS: BP 139/80; PULSE 77; RESP 16; TEMP 37; O2SAT 98; BMI 48.0
--- NOTE | 2021-09-30 15:12 | CT_ITS ---
STUDY: CT ABDOMEN AND PELVIS WITHOUT CONTRAST REASON FOR EXAM: Female, 76 years old. Pain RADIATION DOSAGE (If Supplied By Facility): CTDIvol = ( 31.74 ) mGy, DLP = ( 1578.12 ) mGycm TECHNIQUE: Transaxial images were obtained from the dome of the diaphragm to the symphysis pubis without oral contrast, and without intravenous contrast. Sagittal and coronal images were reconstructed. Individualized dose optimization techniques were used for this CT. COMPARISON: 07/24/2021 CT abdomen and pelvis FINDINGS: The visualized lung bases are unremarkable. The visualized portions of the heart are within normal limits. Normal liver. Normal gallbladder and extrahepatic biliary system. Normal spleen. Normal pancreas. Normal bilateral adrenal glands. Right renal moderate hydronephrosis is present with ureteral stent coiled within the renal pelvis and extending to the distal bladder and normal position. 8mm nephroliths are noted within the renal calyces. There is severe cortical atrophy of the left kidney, consistent with chronic medical renal disease. 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 Normal small intestine. Normal colon. The appendix is visualized and appears normal. Normal abdominal aorta. There is an IVC filter in place. Normal retroperitoneum. HAMMONDS catheter in place. Small bowel containing abdominal umbilical hernia is noted. There are diffuse degenerative changes of the visualized lumbar spine. CT/Abdomen/Pelvis without Cont IMPRESSION: Right ureteral stent in proper position with moderate right renal hydronephrosis and apparent prominent nonobstructing inferior pole nephroliths. Otherwise no additional acute intra-abdominal process with noted senescent changes as above. Electronically Signed: Harvey Menon DO at 16:23 EDT ,
--- NOTE | 2021-09-30 15:13 | ED.VIS.GI ---
HPI HPI - GI History of Present Illness Chief Complaint: Abd Pain Detail of Chief Complaint: Abdominal pain that started today Informant: patient Narrative Narrative: Patient presents with abdominal pain that started earlier today. Patient states that she had a kidney stone diagnosed and a stent placed on the right side 5 weeks ago. She had been doing relatively well. Pain started today and is been severe. She has had nausea and dry heaves. She denies urinary symptoms. She denies fevers or chills or sweats. She denies diarrhea. Prior similar symptoms: No PFSH PFSH Medical History (Updated 09/30/21 @ 17:[address] Rosa Quintero MD) Anxiety and depression Arthritis Back pain Bladder disease Carpal tunnel syndrome Cataracts, both eyes Chronic anticoagulation Chronic neuropathic pain Chronic pain following surgery or procedure Chronic UTI Closed left arm fracture Cystitis Depression Diabetes Diabetic neuropathy associated with type 2 diabetes mellitus DM II (diabetes mellitus, type II), controlled DVT (deep venous thrombosis) Facet arthropathy, lumbar FHx: cholecystectomy GERD (gastroesophageal reflux disease) GERD (gastroesophageal reflux disease) GI bleed Hearing loss, left Hearing loss, right Hematoma Hiatal hernia High cholesterol History of DVT (deep vein thrombosis) History of edema History of gallstones History of pain when walking History of stress test History of stress test HLD (hyperlipidemia) Hx of peripheral neuropathy 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 Injury of head and neck Kidney stones Low iron Morbid obesity with BMI of 45.0-49.9, adult Neuropathy Non-smoker Non-smoker ROXIE (obstructive sleep apnea) Osteoarthritis Polycystic ovaries Pulmonary embolism Restless legs Segmental and somatic dysfunction of cervical region Segmental and somatic dysfunction of lumbar region Segmental and somatic dysfunction of pelvic region Segmental and somatic dysfunction of thoracic region Shortness of breath on exertion Uses wheelchair Walker as ambulation aid Wears dentures Wears hearing aid Home Medications cholecalciferol (vitamin D3) [Vitamin D3] 1,000 unit PO DAILY 12/29/15 [History Last Taken 07/24/21] duloxetine 90 mg PO DAILY 12/29/15 [History Last Taken 07/24/21] pravastatin 40 mg PO QHS 08/05/18 [History Last Taken 07/23/21] fluticasone propionate 2 spray NASAL DAILY 03/18/19 [History Last Taken 07/24/21] primidone 100 mg PO TID 03/18/19 [History Last Taken 07/24/21 12:00] simethicone 80 mg PO TIDCM 03/18/19 [History Last Taken 07/24/21 12:00] mirabegron 100 mg PO QHS 01/24/20 [History Last Taken 07/23/21] bupropion HCl 150 mg PO DAILY 08/09/20 [History Last Taken 07/24/21] alum-mag hydroxide-simeth 30 ml PO Q4H PRN PRN 08/20/20 [History Last Taken 10/22/20] albuterol sulfate 2.5 mg INHALATION Q2H PRN PRN vial.neb. 08/22/20 [Rx Last Taken Unknown] ascorbic acid (vitamin C) 500 mg PO DAILY 09/28/20 [History Last Taken 07/24/21] cyanocobalamin (vitamin B-12) 1,000 mcg IM QMONTH 10/23/20 [History Last Taken 07/27/21 10:00] ferrous sulfate 325 mg PO DAILY 10/23/20 [History Last Taken 07/24/21] Probiotic 1 cap PO/SL DAILY 07/24/21 [History Last Taken 07/23/21] omeprazole 40 mg PO DAILY 07/24/21 [History Last Taken 07/24/21] nystatin 1 applic TOPICAL TID 07/30/21 [History Last Taken Unknown] polyethylene glycol 3350 [Miralax] 17 g PO DAILY 07/30/21 [History Last Taken Unknown] acetaminophen [Tylenol] 650 mg PO Q6H PRN PRN #1 tab 08/14/21 [Rx Last Taken Unknown] furosemide 60 mg PO DAILY #0 tab 08/14/21 [Rx Last Taken Unknown] oxybutynin chloride 5 mg PO DAILY 09/03/21 [History Last Taken Unknown] ondansetron HCl 8 mg PO Q8H PRN PRN 7 Days #20 tablet 09/04/21 [Rx Last Taken Unknown] phenazopyridine [Pyridium] 200 mg PO TID PRN PRN 7 Days #30 tab 09/04/21 [Rx Last Taken Unknown] apixaban [Eliquis] 5 mg PO BID 09/30/21 [History Last Taken Unknown] divalproex [Depakote] 500 mg PO BID 09/30/21 [History Last Taken Unknown] guaifenesin 10 ml PO/SL Q4H PRN PRN 09/30/21 [History Last Taken Unknown] hydrocodone-acetaminophen 1 tab PO Q12H PRN PRN 09/30/21 [History Last Taken Unknown] Allergy/AdvReac Type Severity Reaction Status Date / Time ampicillin [From Unasyn] Allergy Severe Other Verified 08/10/21 08:18 warfarin sodium Allergy Severe Low red Verified 08/10/21 08:18 [From Coumadin] blood cells Family History Father Colon cancer Hypertension Mother Hypertension Surgical History (Updated 08/30/21 @ 09:45 by Mallorie Mo) H/O cardiac catheterization History of carpal tunnel surgery History of cholecystectomy History of cystoscopy History of embolic filter insertion History of embolic filter insertion History of gastric bypass History of hysterectomy S/P hysterectomy Total knee replacement status Social History Smoking Status: Never smoker alcohol intake: current alcohol intake frequency: holidays/special occasions only substance use type: does not use what type of physical activity do you participate in: walking and aerobics frequency: 1-2 times per week ROS ROS ED Constitutional Constitutional ED: Reports systems reviewed and no addt'l complaints, except as documented; Denies body ache(s), change in weight or chills Eyes Eyes: Denies acute decrease in peripheral vision, change in vision, double vision or loss of vision ENT ENT ED: Reports none; Denies ear pain, lip swelling, loss taste/smell, neck pain, otalgia or sore throat Cardiovascular Cardiovascular: Reports none; Denies abdominal pain, chest pain with activity, leg edema, lightheadedness, palpitations, rapid heart rate or syncope Respiratory/Chest Respiratory/Chest: Reports none; Denies change in mental status, dry cough, dyspnea, hemoptysis, shortness of breath at rest or shortness of breath with exertion Gastrointestinal Gastrointestinal: Reports none, abdominal pain, nausea and vomiting; Denies change in stool character, diarrhea, hematemesis, hematochezia, melena or rectal bleeding Genitourinary Genitourinary ED: Reports none; Denies abdominal discomfort, anuria, dysuria, genital pain or polyuria Musculoskeletal Musculoskeletal: Reports none; Denies arthralgias, back pain, difficulty walking, extremity pain, muscle weakness or myalgias Integumentary Reports none; Denies abscess or rash Neurologic Neurologic: Reports none; Denies abnormal gait, confusion, focal weakness, frequent falls, headache(s), loss of vision, numbness, paresthesias, radicular pain, vertigo or weakness Psychiatric Psychiatric: Reports systems reviewed and no addt'l complaints, except as documented and none; Denies behavioral changes, confusion, difficulty concentrating, hallucinations, suicidal ideation, tactile hallucinations or visual hallucinations Endocrine Endocrinology: Denies none, cold intolerance, excessive sweating, fatigue or heat intolerance Hematologic/Lymphatic Hematologic/Lymphatic: Reports none; Denies anemia, easy bleeding or easy bruising Allergic/Immunologic Allergic/Immunologic ED: Denies as per HPI, none, lip swelling, mouth swelling, throat swelling, tongue swelling or hives EXAM Physical Exam Const Vital Signs: 09/30/21 14:56 09/30/21 14:57 09/30/21 17:27 Temperature 98.6 F Temperature Source Temporal Pulse Rate 85 77 88 Respiratory Rate 16 16 15 Blood Pressure 136/67 H 139/80 H 147/67 H Blood Pressure Mean 90 99 93 Pulse Ox 98 98 98 Oxygen Delivery Method Room Air Room Air Room Air Positive well nourished and well developed General Appearance ED: well developed and NAD HEENT Reports TM's clear and moist mucous membranes normocephalic and atraumatic; Negative for trauma or tenderness Tympanic Membrane ED: Yes TM's clear Eyes PERRL and EOMs intact bilaterally General Eye ED: Negative for pale conjunctiva or scleral icterus Neck no lymphadenopathy, supple and no JVD General: Negative for tenderness Chest Wall inspection of chest normal and palpation of chest normal Chest: Negative for tenderness Resp normal respiratory effort and clear to auscultation bilaterally Effort and Inspection: Negative for respiratory distress or pain with movement Auscultation: Negative for rhonchi, wheezes or diminished lung sounds Cardio regular rate, regular rhythm, S1 normal heart sound, S2 normal heart sound and no murmurs Peripheral Pulses: pulses 2+ throughout GI normal to inspection, nondistended, normoactive bowel sounds, soft to palpation, non-distended and no masses GI Narrative: Patient with tenderness palpation diffusely over the right lower quadrant, suprapubic, and left lower quadrant. There is no guarding. There is no rebound, rigidity, or peritoneal signs. Back/Spine no CVA tenderness and no thoracic nor lumbar tenderness Extremity normal to inspection General Extremety ED: Negative for edema General Extremity: Negative for edema Neuro oriented x3, CN's II-XII intact bilaterally, no sensory deficits noted and gait normal Sensorium / Orientation: awake, alert, oriented to person, oriented to place and oriented to time Motor Exam: strength 5/5 throughout and strength abnormal Psych mental status grossly normal Skin no rashes or lesions noted and no wounds MDM MDM MDM Narrative Medical decision making narrative: Patient had IV line established on arrival. She was medicated morphine and Zofran. Patient was noted to have a UTI and was started on Rocephin 1 g IV. It was noted that prior cultures grew out Enterococcus and I started on vancomycin as well. Patient has a ampicillin allergy. CT scan of the abdomen pelvis was essentially unremarkable and the right ureteral stent was in good position. Case discussed with hospitalist will evaluate patient for admission for diagnosis of abdominal pain and UTI Lab Data Attestation: I reviewed the patient's lab results. Labs: Laboratory Results - last 24 hr 09/30/21 09/30/21 09/30/21 15:00 15:00 15:00 WBC 6.3 RBC 3.84 L Hgb 11.8 L Hct 36.5 L MCV 95.1 MCH 30.7 MCHC 32.3 RDW Std Deviation 47.2 H RDW Coeff of Chani 13.6 Plt Count 366 MPV 9.4 Immature Gran % (Auto) 1.100 H Neut % (Auto) 62.6 Lymph % (Auto) 22.6 [place] % (Auto) 11.2 H Eos % (Auto) 1.7 Baso % (Auto) 0.8 Absolute Neuts (auto) 4.0 Absolute Lymphs (auto) 1.43 Nucleated RBC % 0 Sodium 138 Potassium 4.4 Chloride 107 Carbon Dioxide 25.0 Anion Gap 6 BUN 15 Creatinine 0.85 Estim Creat Clear Calc 51.46 Est GFR (MDRD) Af Amer 83 Est GFR (MDRD) Non-Af 69 BUN/Creatinine Ratio 17.6 Glucose 99 Lactic Acid Calcium 8.6 Total Bilirubin 0.30 Direct Bilirubin 0.10 AST 16 ALT 12 L Alkaline Phosphatase 114 Total Protein 6.3 L Albumin 2.6 L Globulin 3.7 Urine Color Urine Clarity Urine pH Ur Specific [place] Urine Protein Urine Glucose (UA) Urine Ketones Urine Occult Blood Urine Nitrite Urine Bilirubin Urine Urobilinogen Ur Leukocyte Esterase Urine RBC Urine WBC Ur Squamous Epith Cells Urine Bacteria Urine Mucus 09/30/21 09/30/21 15:10 15:21 WBC RBC Hgb Hct MCV MCH MCHC RDW Std Deviation RDW Coeff of Chani Plt Count MPV Immature Gran % (Auto) Neut % (Auto) Lymph % (Auto) [place] % (Auto) Eos % (Auto) Baso % (Auto) Absolute Neuts (auto) Absolute Lymphs (auto) Nucleated RBC % Sodium Potassium Chloride Carbon Dioxide Anion Gap BUN Creatinine Estim Creat Clear Calc Est GFR (MDRD) Af Amer Est GFR (MDRD) Non-Af BUN/Creatinine Ratio Glucose Lactic Acid 1.4 Calcium Total Bilirubin Direct Bilirubin AST ALT Alkaline Phosphatase Total Protein Albumin Globulin Urine Color Brown Urine Clarity Turbid Urine pH 7.0 Ur Specific [place] 1.015 Urine Protein 100 H Urine Glucose (UA) Normal Urine Ketones 5 H Urine Occult Blood 250 H Urine Nitrite Positive H Urine Bilirubin 3 H Urine Urobilinogen 4 H Ur Leukocyte Esterase 500 H Urine RBC > 100 SEEN Urine WBC 0-5 SEEN Ur Squamous Epith Cells 0 SEEN Urine Bacteria 2+ Urine Mucus 0 SEEN Radiography Diagnostic Testing: Clinical Impression(s) from Imaging Studies Abdomen/Pelvis CT 09/30/21 15:12 IMPRESSION: Right ureteral stent in proper position with moderate right renal hydronephrosis and apparent prominent nonobstructing inferior pole nephroliths. Otherwise no additional acute intra-abdominal process with noted senescent changes as above. Electronically Signed: Harvey Menon DO at 16:23 EDT Reading Location ID and State: [facility] / [place] , Service support , Discharge Plan Triage Chief Complaint: Abd Pain ED Provider: Jose Sharp Dx/Rx/DC Orders Clinical Impression: Abdominal pain, Acute UTI Prescriptions: No Action cholecalciferol (vitamin D3) [Vitamin D3] 1,000 UNIT tablet 1,000 unit PO DAILY RF: 0 duloxetine 60 MG capsule 90 mg PO DAILY RF: 0 pravastatin 40 MG tablet 40 mg PO QHS RF: 0 primidone 50 MG tablet 100 mg PO TID RF: 0 fluticasone propionate 1 SPRAY spray,suspension 2 spray NASAL DAILY RF: 0 simethicone 80 MG tablet 80 mg PO TIDCM RF: 0 mirabegron 50 MG tablet extended release 24 hr 100 mg PO QHS RF: 0 bupropion HCl 150 MG tablet extended release 24 hr 150 mg PO DAILY RF: 0 alum-mag hydroxide-simeth 355 ML suspension 30 ml PO Q4H PRN PRN (Reason: GI DISTRESS) RF: 0 albuterol sulfate 2.5 MG/3 ML solution for nebulization 2.5 mg INHALATION Q2H PRN PRN (Reason: Dyspnea, wheezing) RF: 0 ascorbic acid (vitamin C) 500 MG tablet 500 mg PO DAILY RF: 0 cyanocobalamin (vitamin B-12) 1,000 mcg/mL Solution 1,000 mcg IM QMONTH RF: 0 ferrous sulfate 325 mg (65 mg iron) Tablet 325 mg PO DAILY RF: 0 omeprazole 40 mg capsule,delayed release(DR/EC) 40 mg PO DAILY RF: 0 Probiotic 1 cap PO/SL DAILY RF: 0 polyethylene glycol 3350 [Miralax] 17 gram Powder In Packet 17 g PO DAILY RF: 0 nystatin 100,000 unit/gram Powder 1 applic TOPICAL TID RF: 0 acetaminophen [Tylenol] 325 mg Tablet 650 mg PO Q6H PRN PRN (Reason: Pain Score 1-10/Temp > 100.7 F) Qty: 1 RF: 0 furosemide 20 mg Tablet 60 mg PO DAILY Qty: 0 RF: 0 oxybutynin chloride 5 mg Tablet 5 mg PO DAILY RF: 0 ondansetron HCl [ondansetron HCl] 8 MG tablet 8 mg PO Q8H PRN PRN (Reason: Nausea) 7 Days Qty: 20 RF: 0 phenazopyridine [Pyridium] 200 MG tablet 200 mg PO TID PRN PRN (Reason: Bladder Spasms) 7 Days Qty: 30 RF: 0 hydrocodone-acetaminophen 5-325 mg tablet 1 tab PO Q12H PRN PRN (Reason: Pain) RF: 0 divalproex [Depakote] 500 mg Tablet,Delayed Release (Dr/Ec) 500 mg PO BID RF: 0 Eliquis 5 mg Tablet 5 mg PO BID RF: 0 guaifenesin 10 ml PO/SL Q4H PRN PRN (Reason: Cough) RF: 0 Primary Care Provider: Jefferson Roman Chi Referrals: Jefferson Roman Chi, MD [Primary Care Provider] - Disposition Disposition: Acute Care Hospital [facility]
[2021-09-30 15:19] LABS: Mucous, Urine 0 SEEN /hpf (<or=2+); Squamous Epithelial Cells - UA 0 SEEN /hpf (5-10)
[2021-09-30 15:21] LABS: Absolute Lymphocyte Count 1.43 X10^3/uL (0.83-4.51); Basophil# 0.05 X10^3/uL; Basophil% 0.8 % (0-1); Eosinophil# 0.11 X10^3/uL; Eosinophils% 1.7 % (0-5); Hematocrit 36.5 % (37-47); Hemoglobin 11.8 g/dL (12.0-15.0); Lymphocyte # 1.43 X10^3/ul (0.83-4.51); Lymphocyte % 22.6 % (19-41); Mean Corp Hgb Conc 32.3 g/dL (32-36); Mean Corpuscular Hgb 30.7 pg (27.0-32.0); Mean Corpuscular Volume 95.1 fL (81-99); Mean Platelet Vol. 9.4 fl (6.2-12.0); Monocyte# 0.71 X10^3/uL; Monocyte% 11.2 % (0-10); NRBC Flagged by Analyzer 0 % (0-5); Neutrophil # 3.95 X10^3/uL (2.7-7.7); Neutrophil % 62.6 % (47-70); Platelet Count 366 K/mm3 (150-450); RBC Distribution Width CV 13.6 % (11.6-14.6); RBC Distribution Width SD 47.2 fl (35.1-43.9); Red Blood Count 3.84 M/mm3 (4.2-5.4); White Blood Count 6.3 K/mm3 (4.4-11.0)
[2021-09-30 15:22] LABS: Color, Urine Brown (Yellow); Glucose, Dipstick Normal (Normal); Ketone-Dipstick 5 mg/dl (Negative); Leukocyte Esterase-Dipstick 500 /ul (Negative); Nitrite-Dipstick Positive (Negative); Occult Blood-Urine 250 /ul (Negative); Protein-Dipstick 100 mg/dl (Negative); Specific Gravity, Urine 1.015 (1.002-1.030); Urine Clarity Turbid (Clear); Urine Urobilinogen 4 mg/dl (Normal)
[2021-09-30 15:25] LABS: Urine Bilirubin Dipstick 3 mg/dL (Negative)
[2021-09-30] MEDS: 0.9% Normal Saline 1,000 ML 125 ML IV (15:25)
[2021-09-30] MEDS: Ondansetron 4 MG/2 ML Vial IV (15:25)
[2021-09-30] MEDS: Morphine 4 MG/ML Syringe IV (15:26)
[2021-09-30 15:29] LABS: Red Blood Cells-Urine > 100 SEEN /hpf (0-5)
[2021-09-30 15:30] LABS: Bacteria 2+ /hpf (None Seen); White Blood Cells 0-5 SEEN /hpf (0-5)
[2021-09-30 15:33] LABS: Anion Gap 6 (5-15); BUN 15 mg/dL (7-18); BUN/Creat Ratio 17.6 RATIO (10-20); Calcium,Total 8.6 mg/dL (8.5-10.1); Chloride 107 mmol/L (98-107); Creatinine, Serum 0.85 mg/dL (0.55-1.02); EST Glomerular Filtration Rate 69 mL/min (>60); Est Glom Filt Rate - Afr Amer 83 mL/min (>60); Estimated Creatinine Clearance 51.46 ml/min; Glucose 99 mg/dL (74-106); Potassium 4.4 mmol/L (3.5-5.1); Sodium Level 138 mmol/L (136-145)
[2021-09-30 15:53] LABS: Lactic Acid 1.4 mmol/L (0.4-1.9)
[2021-09-30 16:16] LABS: AST(SGOT) 16 U/L (15-37); Alanine Aminotransfer ALT/SGPT 12 U/L (13-56); Albumin, Serum 2.6 g/dL (3.2-5.0); Alkaline Phosphatase 114 U/L (45-117); Globulin 3.7 g/dL (2.2-4.2); Protein, Total 6.3 g/dL (6.4-8.2)
[2021-09-30] MEDS: Ceftriaxone 1 GM/50 ML BAG IV (16:59)
--- NOTE | 2021-09-30 17:26 | HP.PCM.HOS_ITS ---
HPI - General General Date of Admission: 09/30/21 HPI Narrative ADAM NIX, is a 76 F with an extensive PMH as outlined who presents via the ED on 09/30/2021 with a complaint of abdominal pain. Abdominal pain started on the day of presentation. Patient was diagnosed with a right kidney stone ~ 5 weeks ago and had a stent placed. She had been doling well, but started having the abdominal pain today. SHe denied any fever, but admitted to frequency of urination, and burning with urination. Review of systems is otherwise negative. Vitals were BP of 147/67, NE of 88 and RR of 15. She was saturating at 98% on room air. CBC showed hemoglobin of 11.8 with WBC of 6.3 and platelets of 366. Chemistry was essentially unremarkable. Urinalysis showed more than 100 WBC and 0-5 WBC but urine nitrite was positive and she had 2+ bacteria. Urine cultures just from 24 September 2021 and previous cultures were positive for Enterococcus faecalis. Plan was to start on IV ceftriaxone in the ED but this was switched to IV vancomycin based on previous urine sensitivities. She has been admitted to be managed for UTI. [facility] Medical History (Updated 09/30/21 @ 17:[address] Rosa Quintero MD) Anxiety and depression Arthritis Back pain Bladder disease Carpal tunnel syndrome Cataracts, both eyes Chronic anticoagulation Chronic neuropathic pain Chronic pain following surgery or procedure Chronic UTI Closed left arm fracture Cystitis Depression Diabetes Diabetic neuropathy associated with type 2 diabetes mellitus DM II (diabetes mellitus, type II), controlled DVT (deep venous thrombosis) Facet arthropathy, lumbar FHx: cholecystectomy GERD (gastroesophageal reflux disease) GERD (gastroesophageal reflux disease) GI bleed Hearing loss, left Hearing loss, right Hematoma Hiatal hernia High cholesterol History of DVT (deep vein thrombosis) History of edema History of gallstones History of pain when walking History of stress test History of stress test HLD (hyperlipidemia) Hx of peripheral neuropathy 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 Injury of head and neck Kidney stones Low iron Morbid obesity with BMI of 45.0-49.9, adult Neuropathy Non-smoker Non-smoker ROXIE (obstructive sleep apnea) Osteoarthritis Polycystic ovaries Pulmonary embolism Restless legs Segmental and somatic dysfunction of cervical region Segmental and somatic dysfunction of lumbar region Segmental and somatic dysfunction of pelvic region Segmental and somatic dysfunction of thoracic region Shortness of breath on exertion Uses wheelchair Walker as ambulation aid Wears dentures Wears hearing aid Home Medications cholecalciferol (vitamin D3) [Vitamin D3] 1,000 unit PO DAILY 12/29/15 [History Last Taken 07/24/21] duloxetine 90 mg PO DAILY 12/29/15 [History Last Taken 07/24/21] pravastatin 40 mg PO QHS 08/05/18 [History Last Taken 07/23/21] fluticasone propionate 2 spray NASAL DAILY 03/18/19 [History Last Taken 07/24/21] primidone 100 mg PO TID 03/18/19 [History Last Taken 07/24/21 12:00] simethicone 80 mg PO TIDCM 03/18/19 [History Last Taken 07/24/21 12:00] mirabegron 100 mg PO QHS 01/24/20 [History Last Taken 07/23/21] bupropion HCl 150 mg PO DAILY 08/09/20 [History Last Taken 07/24/21] alum-mag hydroxide-simeth 30 ml PO Q4H PRN PRN 08/20/20 [History Last Taken 10/22/20] albuterol sulfate 2.5 mg INHALATION Q2H PRN PRN vial.neb. 08/22/20 [Rx Last Taken Unknown] ascorbic acid (vitamin C) 500 mg PO DAILY 09/28/20 [History Last Taken 07/24/21] cyanocobalamin (vitamin B-12) 1,000 mcg IM QMONTH 10/23/20 [History Last Taken 07/27/21 10:00] ferrous sulfate 325 mg PO DAILY 10/23/20 [History Last Taken 07/24/21] Probiotic 1 cap PO/SL DAILY 07/24/21 [History Last Taken 07/23/21] omeprazole 40 mg PO DAILY 07/24/21 [History Last Taken 07/24/21] nystatin 1 applic TOPICAL TID 07/30/21 [History Last Taken Unknown] polyethylene glycol 3350 [Miralax] 17 g PO DAILY 07/30/21 [History Last Taken Unknown] acetaminophen [Tylenol] 650 mg PO Q6H PRN PRN #1 tab 08/14/21 [Rx Last Taken Un known] furosemide 60 mg PO DAILY #0 tab 08/14/21 [Rx Last Taken Unknown] oxybutynin chloride 5 mg PO DAILY 09/03/21 [History Last Taken Unknown] ondansetron HCl 8 mg PO Q8H PRN PRN 7 Days #20 tablet 09/04/21 [Rx Last Taken Unknown] phenazopyridine [Pyridium] 200 mg PO TID PRN PRN 7 Days #30 tab 09/04/21 [Rx Last Taken Unknown] apixaban [Eliquis] 5 mg PO BID 09/30/21 [History Last Taken Unknown] divalproex [Depakote] 500 mg PO BID 09/30/21 [History Last Taken Unknown] guaifenesin 10 ml PO/SL Q4H PRN PRN 09/30/21 [History Last Taken Unknown] hydrocodone-acetaminophen 1 tab PO Q12H PRN PRN 09/30/21 [History Last Taken Unknown] Allergy/AdvReac Type Severity Reaction Status Date / Time ampicillin [From Unasyn] Allergy Severe Other Verified 08/10/21 08:18 warfarin sodium Allergy Severe Low red Verified 08/10/21 08:18 [From Coumadin] blood cells Family History Father Colon cancer Hypertension Mother Hypertension Surgical History (Updated 08/30/21 @ 09:45 by Mallorie Mo) H/O cardiac catheterization History of carpal tunnel surgery History of cholecystectomy History of cystoscopy History of embolic filter insertion History of embolic filter insertion History of gastric bypass History of hysterectomy S/P hysterectomy Total knee replacement status Social History Smoking Status: Never smoker alcohol intake: current alcohol intake frequency: holidays/special occasions only substance use type: does not use what type of physical activity do you participate in: walking and aerobics frequency: 1-2 times per week ROS Constitutional Constitutional: Denies chills, fatigue, fever(s), malaise or weakness Eyes Eyes: Denies change in vision ENT HEENT: Denies headache(s) Cardiovascular Cardiovascular: Denies chest pain, dyspnea on exertion, lightheadedness, orthopnea, palpitations, rapid heart rate or syncope Respiratory/Chest Respiratory/Chest: Denies cough, dyspnea, excessive phlegm production, productive cough, shortness of breath at rest or shortness of breath with exertion Gastrointestinal Gastrointestinal: Reports abdominal pain; Denies constipation, diarrhea, dyspepsia, nausea or vomiting Genitourinary Genitourinary: Denies burning urination, dysuria, urinary frequency, urinary hesitancy, urinary incontinence or urinary urgency Musculoskeletal Musculoskeletal: Denies arthralgias Neurologic Neurologic: Denies confusion, dizziness, focal weakness or seizures Psychiatric Psychiatric: Reports depression; Denies anxiety Vital Signs Vital Signs Vital Signs: 09/30/21 14:56 09/30/21 14:57 Temperature 98.6 F Temperature Source Temporal Pulse Rate 85 77 Respiratory Rate 16 16 Blood Pressure 136/67 H 139/80 H Blood Pressure Mean 90 99 Pulse Ox 98 98 Oxygen Delivery Method Room Air Room Air Weight Weight: 288 lb 12.889 oz Body Mass Index (BMI) 48.0 Physical Exam Const alert, oriented x3 and no apparent distress General Appearance: cooperative HEENT normocephalic, head/scalp atraumatic, hearing grossly normal bilaterally and moist oral mucous membranes Eyes PERRL, EOMs intact bilaterally and conjunctivae normal Neck no lymphadenopathy and supple Resp normal respiratory effort, no retractions, no use of accessory muscles and clear to auscultation bilaterally Cardio regular rate, regular rhythm, S1 normal heart sound, S2 normal heart sound and no murmurs GI normal to inspection, nondistended, normoactive bowel sounds, soft to palpation, non-tender and non-distended Extremity normal to inspection, full ROM and no clubbing, cyanosis or edema Peripheral Pulses: Yes pulses 2+ throughout Skin no rashes or lesions noted Neuro oriented x3, CN's II-XII intact bilaterally and moves all extremities Sensorium / Orientation: awake and alert Psych affect normal Results Lab / Micro Data Result Diagrams: 09/30/21 15:00 09/30/21 15:00 Labs: Laboratory Results - last 24 hr 09/30/21 15:00: WBC 6.3, RBC 3.84 L, Hgb 11.8 L, Hct 36.5 L, MCV 95.1, MCH 30.7, MCHC 32.3, RDW Std Deviation 47.2 H, RDW Coeff of Chani 13.6, Plt Count 366, MPV 9.4, Immature Gran % (Auto) 1.100 H, Neut % (Auto) 62.6, Lymph % (Auto) 22.6, [place] % (Auto) 11.2 H, Eos % (Auto) 1.7, Baso % (Auto) 0.8, Absolute Neuts (auto) 4.0, Absolute Lymphs (auto) 1.43, Nucleated RBC % 0 09/30/21 15:00: Sodium 138, Potassium 4.4, Chloride 107, Carbon Dioxide 25.0, Anion Gap 6, BUN 15, Creatinine 0.85, Estim Creat Clear Calc 51.46, Est GFR (MDRD) Af Amer 83, Est GFR (MDRD) Non-Af 69, BUN/Creatinine Ratio 17.6, Glucose 99, Calcium 8.6 09/30/21 15:00: Total Bilirubin 0.30, Direct Bilirubin 0.10, AST 16, ALT 12 L, Alkaline Phosphatase 114, Total Protein 6.3 L, Albumin 2.6 L, Globulin 3.7 09/30/21 15:10: Urine Color Brown, Urine Clarity Turbid, Urine pH 7.0, Ur Specific [place] 1.015, Urine Protein 100 H, Urine Glucose (UA) Normal, Urine Ketones 5 H, Urine Occult Blood 250 H, Urine Nitrite Positive H, Urine Bilirubin 3 H, Urine Urobilinogen 4 H, Ur Leukocyte Esterase 500 H, Urine RBC > 100 SEEN, Urine WBC 0-5 SEEN, Ur Squamous Epith Cells 0 SEEN, Urine Bacteria 2+, Urine Mucus 0 SEEN 09/30/21 15:21: Lactic Acid 1.4 Radiology Impression Abdomen/Pelvis CT 09/30/21 15:12 IMPRESSION: Right ureteral stent in proper position with moderate right renal hydronephrosis and apparent prominent nonobstructing inferior pole nephroliths. Otherwise no additional acute intra-abdominal process with noted senescent changes as above. Electronically Signed: Harvey Menon DO at 16:23 EDT Reading Location ID and State: [facility] / [place] , Service support , Assessment & Plan Assessment/Plan (1) UTI (urinary tract infection): PLAN: #UTI * in the setting of a right kidney stone with stent placmeent a few weeks ago * admit to med surg * hydrate with IVF * previous urine cultures grew Enterococcus fecalis. * Will start patient on IV vancomycin; she is allergic to penicillins * get urine and blood cultures * #History of right kidney stone s/p stent * she had right renal extra corporal shockwave lithotripsy on September 04 2021; she already had a stent in situ then * follows with urology on outpatient basis * CT of the abdomen adn pelvis showed a right ureteral stent in proper position with moderate right renal hydronephrosis and nonobstructing inferior pole nephroliths * consult urology o/a of right hydronephrosis * #History of DVT and PE: stable. on eliquis # Hyperlipidemia: on statin #Osteoarthritis: on [place] and tylenol DVT prophylaxis: already on eliquis Code status: full code * Patient counseled extensively about different types of CODE STATUS including full code, DNR CCA and DNR CCA. Patient elects to be full code. Total [id number] time 16 minutes. Charges/Coding Visit Charges Inpatient E&M: 14748 Init Hosp L3 Procedures Hospitalists Procedures: 32146 Advncd Care Plan 30 Min
[2021-09-30 17:27] VITALS: BP 147/67; PULSE 88; RESP 15; O2SAT 98
[2021-09-30 18:06] VITALS: BP 136/72; PULSE 90; RESP 15; TEMP 36.9; O2SAT 97
[2021-09-30 18:20] VITALS: BP 136/72; PULSE 87; RESP 16; TEMP 36.7; O2SAT 98; BMI 46.8
--- NOTE | 2021-09-30 18:40 | PCM.RX.CS ---
Consult Pharmacy has been consulted to manage selected antiobiotic: Vancomycin Type of Consult: New start Prior Doses of Antibiotics Received/Current Regimen: Medications Vancomycin HCl 2,000 mg/ (Sodium Chloride) 540 mls @ 250 mls/hr IV X1 ONE Stop: 09/30/21 19:39 Last Admin: 09/30/21 18:04 Dose: 250 mls/hr Documented by: Labs: Sodium 138 mmol/L (136-145) 09/30/21 15:00 Potassium 4.4 mmol/L (3.5-5.1) 09/30/21 15:00 Chloride 107 mmol/L (98-107) 09/30/21 15:00 Carbon Dioxide 25.0 mmol/L (21.0-32.0) 09/30/21 15:00 Anion Gap 6 (5-15) 09/30/21 15:00 BUN 15 mg/dL (7-18) 09/30/21 15:00 Creatinine 0.85 mg/dL (0.55-1.02) 09/30/21 15:00 Est GFR (MDRD) Af Amer 83 mL/min (>60) 09/30/21 15:00 Est GFR (MDRD) Non-Af 69 mL/min (>60) 09/30/21 15:00 BUN/Creatinine Ratio 17.6 RATIO (10-20) 09/30/21 15:00 Glucose 99 mg/dL (74-106) 09/30/21 15:00 Weight used for dosin kg Estimated Creatinine Clearance: 49 Goal Trough: 15-20 mcg/mL Pharmacy Plan for Drug Dosinmg given in ED, 1000mg q12h with trough prior to 4th dose per policy. Pharmacy Service will continue to monitor and adjust dosing as required. Follow-Up Labs: Trough Vancomycin - 10/02 @ 0530
[2021-09-30] MEDS: HYDROcodone Bitartrate/Apap 5/325 Tablet PO (21:26)
[2021-09-30] MEDS: Divalproex Sodium 250 MG Tablet 500 MG PO (21:27)
[2021-09-30] MEDS: APIXABAN 5 MG TABLET PO (21:28)
[2021-09-30] MEDS: Mirabegron 50 MG TAB.ER.24H 100 MG PO (21:28)
[2021-09-30] MEDS: Pravastatin 40 MG Tablet PO (21:29)
[2021-09-30] MEDS: Primidone 50 MG Tablet 100 MG PO (21:29)
[2021-09-30] MEDS: Acetaminophen 325 MG Tablet 650 MG PO (22:28)
[2021-09-30 22:32] VITALS: BP 97/46; PULSE 84; RESP 18; TEMP 36.7; O2SAT 94
[2021-10-01 01:22] VITALS: BP 95/58; PULSE 84; RESP 18; TEMP 36.8; O2SAT 93
[2021-10-01] MEDS: fentaNYL 100 MCG/2 ML Ampul 25 MCG IV (01:34)
[2021-10-01] MEDS: 0.9% Saline Lock 10 ML Syringe IV ×3 (01:35→18:00)
[2021-10-01] MEDS: 0.9% Normal Saline 1,000 ML 125 ML IV (02:48)
[2021-10-01] MEDS: Vancomycin IV 1,000 MG/200 ML BAG 200 MG IV ×2 (05:52→18:00)
[2021-10-01] MEDS: Primidone 50 MG Tablet 100 MG PO ×3 (05:53→22:47)
[2021-10-01 05:56] VITALS: BP 93/63; PULSE 74; RESP 16; TEMP 36.6; O2SAT 95
[2021-10-01 06:24] LABS: Absolute Lymphocyte Count 1.42 X10^3/uL (0.83-4.51); Absolute Neutrophil Count 1.9 X10^3/uL (2.0-7.7); Basophil# 0.04 X10^3/uL; Eosinophils% 2.5 % (0-5); Hematocrit 31.3 % (37-47); Hemoglobin 9.9 g/dL (12.0-15.0); Lymphocyte # 1.42 X10^3/ul (0.83-4.51); Lymphocyte % 35.1 % (19-41); Mean Corp Hgb Conc 31.6 g/dL (32-36); Mean Corpuscular Hgb 30.6 pg (27.0-32.0); Mean Corpuscular Volume 96.6 fL (81-99); Mean Platelet Vol. 9.4 fl (6.2-12.0); Monocyte# 0.53 X10^3/uL; Monocyte% 13.1 % (0-10); NRBC Flagged by Analyzer 0 % (0-5); Neutrophil # 1.92 X10^3/uL (2.7-7.7); Neutrophil % 47.6 % (47-70); Platelet Count 288 K/mm3 (150-450); RBC Distribution Width CV 13.7 % (11.6-14.6); RBC Distribution Width SD 48.7 fl (35.1-43.9); Red Blood Count 3.24 M/mm3 (4.2-5.4)
[2021-10-01 06:50] LABS: Anion Gap 3 (5-15); BUN 13 mg/dL (7-18); BUN/Creat Ratio 23.8 RATIO (10-20); Calcium,Total 7.4 mg/dL (8.5-10.1); Chloride 108 mmol/L (98-107); Creatinine, Serum 0.55 mg/dL (0.55-1.02); EST Glomerular Filtration Rate 115 mL/min (>60); Est Glom Filt Rate - Afr Amer 140 mL/min (>60); Estimated Creatinine Clearance 43.74 ml/min; Glucose 86 mg/dL (74-106); Potassium 3.9 mmol/L (3.5-5.1); Sodium Level 138 mmol/L (136-145)
[2021-10-01 07:45] VITALS: BP 119/56; PULSE 75; RESP 18; TEMP 36.8; O2SAT 95
[2021-10-01] MEDS: APIXABAN 5 MG TABLET PO ×2 (07:54→22:49)
[2021-10-01] MEDS: Furosemide 20 MG Tablet 60 MG PO (07:55)
[2021-10-01] MEDS: DULoxetine Hcl 30 MG Capsule 90 MG PO (07:55)
[2021-10-01] MEDS: buPROPion (XL) 150 MG TABLET.XL PO (07:55)
[2021-10-01] MEDS: Pantoprazole Sodium 40 MG Tablet PO (07:56)
[2021-10-01] MEDS: Divalproex Sodium 250 MG Tablet 500 MG PO ×2 (07:56→22:48)
[2021-10-01] MEDS: Oxybutynin 5 MG Tablet PO (07:56)
[2021-10-01] MEDS: HYDROcodone Bitartrate/Apap 5/325 Tablet PO (07:56)
[2021-10-01] MEDS: Fluticasone 0.05% 1 SPRAY NASAL.SRY 2 SPRAY NASAL (07:57)
--- NOTE | 2021-10-01 09:45 | CASEMGMT ---
Social Work Note RUKHSANA received call from Jacinto at [facility] stating they got pre-cert for pt to admit to [facility] from [facility], but states it expires today. RUKHSANA informed Jacinto that this worker has not even spoke with pt yet regarding discharge plans or with the physician to get medical update. Jacinto states to just update her. RUKHSANA asked Jacinto why pt was transitioning to [facility]. Jacinto states pt has had a decline lately at [facility] and [facility] was wanting to get pt to skilled [facility] but the family did not seem on board. RUKHSANA informed Jacinto that this worker will need to speak with pt and physician to inquire about medical treatment plan for pt. Jacinto states understanding, states to just keep her updated. RUKHSANA participated in rounds with physician. Pt to remain at [facility] today, ID consulted. SW to continue to follow. Maria E Martinez [employer], [employer]
[2021-10-01] MEDS: oxyCODONE 5 MG Tablet PO ×3 (10:13→20:29)
--- NOTE | 2021-10-01 10:56 | PCM.CONS.U ---
HPI Consult Data Date of Consult: 10/01/21 HPI Narrative HPI Narrative: ADAM NIX, is a 76 F who presents to the hospital. She had a stent placed and Right ESWL on 09/04. Prior to this did have a urine Cx ++ with enterococcus. Currently urine cx pending and blood cx pending, she is on appropriate antibiotics. reviewed her CT scan. Right stent is in proper position some fragments and non - obstructive stones in the right kidney, she is hemodynamically stable, h/h stable and WBC normal and cr is normal. No intervention is needed currently from Urology, Continue with Antibx and gentle hydration. Once stabalized and Cx back probably will need to follow up with Urology as an outpateint to decided if more treatments need for the remaining stone fragments or observation and stent removal. Call with questions. [facility] Medical History (Updated 09/30/21 @ 17:[address] Rosa Quintero MD) Anxiety and depression Arthritis Back pain Bladder disease Carpal tunnel syndrome Cataracts, both eyes Chronic anticoagulation Chronic neuropathic pain Chronic pain following surgery or procedure Chronic UTI Closed left arm fracture Cystitis Depression Diabetes Diabetic neuropathy associated with type 2 diabetes mellitus DM II (diabetes mellitus, type II), controlled DVT (deep venous thrombosis) Facet arthropathy, lumbar FHx: cholecystectomy GERD (gastroesophageal reflux disease) GERD (gastroesophageal reflux disease) GI bleed Hearing loss, left Hearing loss, right Hematoma Hiatal hernia High cholesterol History of DVT (deep vein thrombosis) History of edema History of gallstones History of pain when walking History of stress test History of stress test HLD (hyperlipidemia) Hx of peripheral neuropathy 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 Injury of head and neck Kidney stones Low iron Morbid obesity with BMI of 45.0-49.9, adult Neuropathy Non-smoker Non-smoker ROXIE (obstructive sleep apnea) Osteoarthritis Polycystic ovaries Pulmonary embolism Restless legs Segmental and somatic dysfunction of cervical region Segmental and somatic dysfunction of lumbar region Segmental and somatic dysfunction of pelvic region Segmental and somatic dysfunction of thoracic region Shortness of breath on exertion Uses wheelchair Walker as ambulation aid Wears dentures Wears hearing aid Home Medications cholecalciferol (vitamin D3) [Vitamin D3] 1,000 unit PO DAILY 12/29/15 [History Last Taken 07/24/21] duloxetine 90 mg PO DAILY 12/29/15 [History Last Taken 07/24/21] pravastatin 40 mg PO QHS 08/05/18 [History Last Taken 07/23/21] fluticasone propionate 2 spray NASAL DAILY 03/18/19 [History Last Taken 07/24/21] primidone 100 mg PO TID 03/18/19 [History Last Taken 07/24/21 12:00] simethicone 80 mg PO TIDCM 03/18/19 [History Last Taken 07/24/21 12:00] mirabegron 100 mg PO QHS 01/24/20 [History Last Taken 07/23/21] bupropion HCl 150 mg PO DAILY 08/09/20 [History Last Taken 07/24/21] alum-mag hydroxide-simeth 30 ml PO Q4H PRN PRN 08/20/20 [History Last Taken 10/22/20] albuterol sulfate 2.5 mg INHALATION Q2H PRN PRN vial.neb. 08/22/20 [Rx Last Taken Unknown] ascorbic acid (vitamin C) 500 mg PO DAILY 09/28/20 [History Last Taken 07/24/21] cyanocobalamin (vitamin B-12) 1,000 mcg IM QMONTH 10/23/20 [History Last Taken 07/27/21 10:00] ferrous sulfate 325 mg PO DAILY 10/23/20 [History Last Taken 07/24/21] Probiotic 1 cap PO/SL DAILY 07/24/21 [History Last Taken 07/23/21] omeprazole 40 mg PO DAILY 07/24/21 [History Last Taken 07/24/21] nystatin 1 applic TOPICAL TID 07/30/21 [History Last Taken Unknown] polyethylene glycol 3350 [Miralax] 17 g PO DAILY 07/30/21 [History Last Taken Unknown] acetaminophen [Tylenol] 650 mg PO Q6H PRN PRN #1 tab 08/14/21 [Rx Last Taken Unknown] furosemide 60 mg PO DAILY #0 tab 08/14/21 [Rx Last Taken Unknown] oxybutynin chloride 5 mg PO DAILY 09/03/21 [History Last Taken Unknown] ondansetron HCl 8 mg PO Q8H PRN PRN 7 Days #20 tablet 09/04/21 [Rx Last Taken Unknown] phenazopyridine [Pyridium] 200 mg PO TID PRN PRN 7 Days #30 tab 09/04/21 [Rx Last Taken Unknown] apixaban [Eliquis] 5 mg PO BID 09/30/21 [History Last Taken Unknown] divalproex [Depakote] 500 mg PO BID 09/30/21 [History Last Taken Unknown] guaifenesin 10 ml PO/SL Q4H PRN PRN 09/30/21 [History Last Taken Unknown] hydrocodone-acetaminophen 1 tab PO Q12H PRN PRN 09/30/21 [History Last Taken Unknown] Allergy/AdvReac Type Severity Reaction Status Date / Time ampicillin [From Unasyn] Allergy Severe Blisters Verified 09/30/21 18:22 on tongue /throat difficulty breathing sore tongue/ warfarin sodium Allergy Severe Low red Verified 08/10/21 08:18 [From Coumadin] blood cells Family History Father Colon cancer Hypertension Mother Hypertension Surgical History (Updated 08/30/21 @ 09:45 by Mallorie Mo) H/O cardiac catheterization History of carpal tunnel surgery History of cholecystectomy History of cystoscopy History of embolic filter insertion History of embolic filter insertion History of gastric bypass History of hysterectomy S/P hysterectomy Total knee replacement status Social History Smoking Status: Never smoker alcohol intake: current alcohol intake frequency: holidays/special occasions only substance use type: does not use what type of physical activity do you participate in: walking and aerobics frequency: 1-2 times per week Lab / Micro Data Result Diagrams: 10/01/21 05:42 10/01/21 05:42 Labs: Laboratory Results - last 24 hr 09/30/21 15:00: WBC 6.3, RBC 3.84 L, Hgb 11.8 L, Hct 36.5 L, MCV 95.1, MCH 30.7, MCHC 32.3, RDW Std Deviation 47.2 H, RDW Coeff of Chani 13.6, Plt Count 366, MPV 9.4, Immature Gran % (Auto) 1.100 H, Neut % (Auto) 62.6, Lymph % (Auto) 22.6, [place] % (Auto) 11.2 H, Eos % (Auto) 1.7, Baso % (Auto) 0.8, Absolute Neuts (auto) 4.0, Absolute Lymphs (auto) 1.43, Nucleated RBC % 0 09/30/21 15:00: Sodium 138, Potassium 4.4, Chloride 107, Carbon Dioxide 25.0, Anion Gap 6, BUN 15, Creatinine 0.85, Estim Creat Clear Calc 51.46, Est GFR (MDRD) Af Amer 83, Est GFR (MDRD) Non-Af 69, BUN/Creatinine Ratio 17.6, Glucose 99, Calcium 8.6 09/30/21 15:00: Total Bilirubin 0.30, Direct Bilirubin 0.10, AST 16, ALT 12 L, Alkaline Phosphatase 114, Total Protein 6.3 L, Albumin 2.6 L, Globulin 3.7 09/30/21 15:10: Urine Color Brown, Urine Clarity Turbid, Urine pH 7.0, Ur Specific [place] 1.015, Urine Protein 100 H, Urine Glucose (UA) Normal, Urine Ketones 5 H, Urine Occult Blood 250 H, Urine Nitrite Positive H, Urine Bilirubin 3 H, Urine Urobilinogen 4 H, Ur Leukocyte Esterase 500 H, Urine RBC > 100 SEEN, Urine WBC 0-5 SEEN, Ur Squamous Epith Cells 0 SEEN, Urine Bacteria 2+, Urine Mucus 0 SEEN 09/30/21 15:21: Lactic Acid 1.4 10/01/21 05:42: WBC 4.0 L, RBC 3.24 L, Hgb 9.9 L, Hct 31.3 L, MCV 96.6, MCH 30.6, MCHC 31.6 L, RDW Std Deviation 48.7 H, RDW Coeff of Chani 13.7, Plt Count 288, MPV 9.4, Immature Gran % (Auto) 0.700, Neut % (Auto) 47.6, Lymph % (Auto) 35.1, [place] % (Auto) 13.1 H, Eos % (Auto) 2.5, Baso % (Auto) 1.0, Absolute Neuts (auto) 1.9 L, Absolute Lymphs (auto) 1.42, Nucleated RBC % 0 10/01/21 05:42: Sodium 138, Potassium 3.9, Chloride 108 H, Carbon Dioxide 27.0, Anion Gap 3 L, BUN 13, Creatinine 0.55, Estim Creat Clear Calc 43.74, Est GFR (MDRD) Af Amer 140, Est GFR (MDRD) Non-Af 115, BUN/Creatinine Ratio 23.8 H, Glucose 86, Calcium 7.4 L Radiology Impression Abdomen/Pelvis CT 09/30/21 15:12 IMPRESSION: Right ureteral stent in proper position with moderate right renal hydronephrosis and apparent prominent nonobstructing inferior pole nephroliths. Otherwise no additional acute intra-abdominal process with noted senescent changes as above. Electronically Signed: Harvey Menon DO at 16:23 EDT ,
--- NOTE | 2021-10-01 12:16 | PN.HOSP_ITS ---
Subjective Subjective Patient states that she is feeling better than when she came in however she is still having significant abdominal and back pain on the right side. She has been able to eat breakfast without difficulty however. Objective Data Objective Data Vital Signs: Vital Signs Temp Pulse Resp BP Pulse Ox 98.3 F 75 18 119/56 L 95 10/01/21 07:45 10/01/21 07:45 10/01/21 07:45 10/01/21 07:45 10/01/21 07:45 Oxygen Delivery Method Room Air Weight: 127.777 kg Body Mass Index (BMI) 46.8 Intake & Output: Intake and Output for Last 24 Hours 09/29/21 09/30/21 10/01/21 23:59 23:59 23:59 Intake Total 971.25 / 971.25 1745.83 / 1745.83 Output Total 3150 / 3150 Balance 971.25 / 171.25 -1404.17 / -1404.17 Medical Nutrition Assessment Dietitian: Malnutrition Criteria Met Start: 10/01/21 12:00 Freq: Status: Active Protocol: Document 10/01/21 12:00 [facility] (Rec: 10/01/21 12:00 [facility] [id number]) Nutrition Malnutrition Evidence of Malnutrition Exists Yes Malnutrition (severe): Acute Illness/Injury Evidenced By Suboptimal Energy Intake ( Severe),Weight Loss (Severe) Clinical Problem Acute Disease or Injury Related Malnutrition Etiology related to acute illness and not feeling hungry making it difficult to consume adequate nutrition to meet est nutritional needs Signs/Symptoms as evidenced by <50% po intake x >1 mo and 8.1% wt loss in < 2 mo Status Active Problem Recommendation Dietitian Recommendations/Changes Will change diet to liberal Regular d/t signs/symptoms of malnutrition Will monitor need for ONS pending continued po intake and wt trends - pt declines any at this time. Lab / Micro Data Result Diagrams: 10/01/21 05:42 10/01/21 05:42 Labs: Laboratory Results - last 24 hr 09/30/21 15:00: WBC 6.3, RBC 3.84 L, Hgb 11.8 L, Hct 36.5 L, MCV 95.1, MCH 30.7, MCHC 32.3, RDW Std Deviation 47.2 H, RDW Coeff of Chani 13.6, Plt Count 366, MPV 9.4, Immature Gran % (Auto) 1.100 H, Neut % (Auto) 62.6, Lymph % (Auto) 22.6, [place] % (Auto) 11.2 H, Eos % (Auto) 1.7, Baso % (Auto) 0.8, Absolute Neuts (auto) 4.0, Absolute Lymphs (auto) 1.43, Nucleated RBC % 0 09/30/21 15:00: Sodium 138, Potassium 4.4, Chloride 107, Carbon Dioxide 25.0, Anion Gap 6, BUN 15, Creatinine 0.85, Estim Creat Clear Calc 51.46, Est GFR (MDRD) Af Amer 83, Est GFR (MDRD) Non-Af 69, BUN/Creatinine Ratio 17.6, Glucose 99, Calcium 8.6 09/30/21 15:00: Total Bilirubin 0.30, Direct Bilirubin 0.10, AST 16, ALT 12 L, Alkaline Phosphatase 114, Total Protein 6.3 L, Albumin 2.6 L, Globulin 3.7 09/30/21 15:10: Urine Color Brown, Urine Clarity Turbid, Urine pH 7.0, Ur Specific [place] 1.015, Urine Protein 100 H, Urine Glucose (UA) Normal, Urine Ketones 5 H, Urine Occult Blood 250 H, Urine Nitrite Positive H, Urine Bilirubin 3 H, Urine Urobilinogen 4 H, Ur Leukocyte Esterase 500 H, Urine RBC > 100 SEEN, Urine WBC 0-5 SEEN, Ur Squamous Epith Cells 0 SEEN, Urine Bacteria 2+, Urine Mucus 0 SEEN 09/30/21 15:21: Lactic Acid 1.4 10/01/21 05:42: WBC 4.0 L, RBC 3.24 L, Hgb 9.9 L, Hct 31.3 L, MCV 96.6, MCH 30.6, MCHC 31.6 L, RDW Std Deviation 48.7 H, RDW Coeff of Chani 13.7, Plt Count 288, MPV 9.4, Immature Gran % (Auto) 0.700, Neut % (Auto) 47.6, Lymph % (Auto) 35.1, [place] % (Auto) 13.1 H, Eos % (Auto) 2.5, Baso % (Auto) 1.0, Absolute Neuts (auto) 1.9 L, Absolute Lymphs (auto) 1.42, Nucleated RBC % 0 10/01/21 05:42: Sodium 138, Potassium 3.9, Chloride 108 H, Carbon Dioxide 27.0, Anion Gap 3 L, BUN 13, Creatinine 0.55, Estim Creat Clear Calc 43.74, Est GFR (MDRD) Af Amer 140, Est GFR (MDRD) Non-Af 115, BUN/Creatinine Ratio 23.8 H, Glucose 86, Calcium 7.4 L Micro: Microbiology 09/30/21 15:10 Urine Catheter - Catheter Urine Culture - Preliminary GPC Poss Enterococcus sp Radiography Diagnostic Testing: Radiology Impression Abdomen/Pelvis CT 09/30/21 15:12 IMPRESSION: Right ureteral stent in proper position with moderate right renal hydronephrosis and apparent prominent nonobstructing inferior pole nephroliths. Otherwise no additional acute intra-abdominal process with noted senescent changes as above. Electronically Signed: Harvey Menon DO at 16:23 EDT Reading Location ID and State: [facility] / [place] , Service support , Physical Exam Const alert, oriented x3, no apparent distress and well nourished Constitutional Narrative: Morbidly obese white female sitting up in bed eating breakfast and watching television, appears comfortable and nontoxic at this time Exam Limitations: no limitations Nutritional Appearance: morbidly obese HEENT head/scalp atraumatic and moist oral mucous membranes HEENT Narrative: Mallampati is 3, no thrush Head and Scalp: normocephalic Resp normal respiratory effort, no retractions, no use of accessory muscles and clear to auscultation bilaterally Auscultation: Negative for crackles, rales, rhonchi or wheezes Cardio regular rate, S1 normal heart sound, S2 normal heart sound, no murmurs, no rub, no gallops, no clicks and no JVD GI normal to inspection, nondistended, normoactive bowel sounds, soft to palpation and non-distended GI Narrative: Large pannus, tenderness on right side of abdomen and right flank Palpation: tender Extremity no clubbing, cyanosis or edema Peripheral Pulses: Yes pulses 2+ throughout Skin no rashes or lesions noted and no wounds Neuro oriented x3, moves all extremities and no focal motor deficits Sensorium / Orientation: awake and alert Speech: speech normal Psych affect normal Assessment & Plan Assessment/Plan (1) Hydronephrosis: (2) Leukopenia: PLAN: Acute Enterococcus faecalis urinary tract infection -Continue vancomycin -Organism is vancomycin sensitive -ID consultation is pending -Was seen by urology and no current plans for intervention -Blood cultures are pending however I do doubt bacteremia this patient clinically looks pretty good -Maintain Adler -We will need to follow-up with urology as an outpatient for more definitive intervention regarding her stones Hydronephrosis -Patient has a well-placed right ureteral stent -Maintain Adler -Moderate hydronephrosis noted on CT -Urology did see the patient in no current needs for any intervention -Continue antibiotics as above -Outpatient follow-up with Dr. Villavicencio Leukopenia -May be related to acute infection or dilutional -IV fluids discontinued -Continue to monitor -Clinically appears stable -Repeat CBC in a.m. Acute on chronic normocytic anemia -Suspect drop since admission is dilutional -Discontinue aggressive IV fluids -Repeat CBC in a.m. -Continue home iron supplementation History of DVT/PE -Patient is currently on Eliquis 5 mg p.o. twice daily -Also has IVC filter -Clinically stable Hyperlipidemia -Continue statin Anxiety/depression -Continue duloxetine -Continue Wellbutrin Urinary incontinence -Continue oxybutynin GERD -Continue PPI Osteoarthritis -Continue home pain medication DVT prophylaxis -Patient is fully anticoagulated with Eliquis CODE STATUS -Full code Charges/Coding Visit Charges Inpatient E&M: 50306 [facility] Hosp L2
--- NOTE | 2021-10-01 13:19 | CASEMGMT ---
Social Work Note SW in to speak with pt. SW introduced self and role at [facility]. Pt confirms that she came from [facility]. SW informed pt that if pt needs IV antibiotics or skilled PT/OT, pt will need to go to SNF. Pt states understanding, agreeable to [facility] if recommended. Patient was provided a list of SNF providers including quality and resource use data and consistent with the patient?s preferred geographic region, medical needs, and insurance network. SW informed pt that this worker will just continue to follow for discharge needs. Pt states her preferred preference is to return to [facility] but if skilled is needed, would be agreeable to [facility]. SW placed a call to Jacinto at [facility] and left message updating her on above information. SW to continue to follow. Plan: Return to [facility] vs [facility] Maria E Martinez HEPATOLOGIST, ENGINE REPAIRER SERVICE
--- NOTE | 2021-10-01 13:53 | PCM.CONS.GEN ---
Assessment & Plan Assessment/Plan (1) UTI (urinary tract infection): PLAN: Enterococcus pyelo with R sided stent and stone in place. On vanc, discussed options with her. She reports throat closing with unasyn, but no issues with po amoxicillin or augmentin. Will order picc and 2 week course iv vanc, then plan on po amoxicillin. Hopefully can followup with urology for possible procedure while still on abx in order to get some source control. Will follow, thank you, wrote rx, d/w onsite case manager, ID followup in 2 weeks. HPI Consult Data Date of Consult: 10/01/21 HPI Narrative HPI Narrative: ADAM NIX, is a 76 F who presented with fever, chills, R flank pain, abd pain. Recent ESWL and R stent placement. Ucx with enterococcus here, on vanc, feeling better but still some pain. No n/v/d. Full ROS performed and neg except as noted above PFSH Medical History Anxiety and depression Arthritis Back pain Bladder disease Carpal tunnel syndrome Cataracts, both eyes Chronic anticoagulation Chronic neuropathic pain Chronic pain following surgery or procedure Chronic UTI Closed left arm fracture Cystitis Depression Diabetes Diabetic neuropathy associated with type 2 diabetes mellitus DM II (diabetes mellitus, type II), controlled DVT (deep venous thrombosis) Facet arthropathy, lumbar FHx: cholecystectomy GERD (gastroesophageal reflux disease) GERD (gastroesophageal reflux disease) GI bleed Hearing loss, left Hearing loss, right Hematoma Hiatal hernia High cholesterol History of DVT (deep vein thrombosis) History of edema History of gallstones History of pain when walking History of stress test History of stress test HLD (hyperlipidemia) Hx of peripheral neuropathy 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 Injury of head and neck Kidney stones Low iron Morbid obesity with BMI of 45.0-49.9, adult Neuropathy Non-smoker Non-smoker Normocytic anemia ROXIE (obstructive sleep apnea) Osteoarthritis Polycystic ovaries Pulmonary embolism Restless legs Segmental and somatic dysfunction of cervical region Segmental and somatic dysfunction of lumbar region Segmental and somatic dysfunction of pelvic region Segmental and somatic dysfunction of thoracic region Shortness of breath on exertion Uses wheelchair Walker as ambulation aid Wears dentures Wears hearing aid Home Medications cholecalciferol (vitamin D3) [Vitamin D3] 1,000 unit PO DAILY 12/29/15 [History Last Taken 07/24/21] duloxetine 90 mg PO DAILY 12/29/15 [History Last Taken 07/24/21] pravastatin 40 mg PO QHS 08/05/18 [History Last Taken 07/23/21] fluticasone propionate 2 spray NASAL DAILY 03/18/19 [History Last Taken 07/24/21] primidone 100 mg PO TID 03/18/19 [History Last Taken 07/24/21 12:00] simethicone 80 mg PO TIDCM 03/18/19 [History Last Taken 07/24/21 12:00] mirabegron 100 mg PO QHS 01/24/20 [History Last Taken 07/23/21] bupropion HCl 150 mg PO DAILY 08/09/20 [History Last Taken 07/24/21] alum-mag hydroxide-simeth 30 ml PO Q4H PRN PRN 08/20/20 [History Last Taken 10/22/20] albuterol sulfate 2.5 mg INHALATION Q2H PRN PRN vial.neb. 08/22/20 [Rx Last Taken Unknown] ascorbic acid (vitamin C) 500 mg PO DAILY 09/28/20 [History Last Taken 07/24/21] cyanocobalamin (vitamin B-12) 1,000 mcg IM QMONTH 10/23/20 [History Last Taken 08/24/21] ferrous sulfate 325 mg PO DAILY 10/23/20 [History Last Taken 07/24/21] Probiotic 1 cap PO/SL DAILY 07/24/21 [History Last Taken 07/23/21] omeprazole 40 mg PO DAILY 07/24/21 [History Last Taken 07/24/21] nystatin 1 applic TOPICAL TID 07/30/21 [History Last Taken Unknown] polyethylene glycol 3350 [Miralax] 17 g PO DAILY 07/30/21 [History Last Taken Unknown] acetaminophen [Tylenol] 650 mg PO Q6H PRN PRN #1 tab 08/14/21 [Rx Last Taken Unknown] furosemide 60 mg PO DAILY #0 tab 08/14/21 [Rx Last Taken Unknown] oxybutynin chloride 5 mg PO DAILY 09/03/21 [History Last Taken Unknown] ondansetron HCl 8 mg PO Q8H PRN PRN 7 Days #20 tablet 09/04/21 [Rx Last Taken Unknown] phenazopyridine [Pyridium] 200 mg PO TID PRN PRN 7 Days #30 tab 09/04/21 [Rx Last Taken Unknown] apixaban [Eliquis] 5 mg PO BID 09/30/21 [History Last Taken Unknown] divalproex [Depakote] 500 mg PO BID 09/30/21 [History Last Taken Unknown] guaifenesin 10 ml PO/SL Q4H PRN PRN 09/30/21 [History Last Taken Unknown] hydrocodone-acetaminophen 1 tab PO Q12H PRN PRN 09/30/21 [History Last Taken Unknown] vancomycin in 0.9 % sodium chl 1 g IV Q12H 14 Days #5600 ml 10/01/21 [Rx Last Taken Unknown] Allergy/AdvReac Type Severity Reaction Status Date / Time ampicillin [From Unasyn] Allergy Severe Blisters Verified 09/30/21 18:22 on tongue /throat difficulty breathing sore tongue/ warfarin sodium Allergy Severe Low red Verified 08/10/21 08:18 [From Coumadin] blood cells Family History Father Colon cancer Hypertension Mother Hypertension Surgical History (Updated 08/30/21 @ 09:45 by Mallorie Mo) H/O cardiac catheterization History of carpal tunnel surgery History of cholecystectomy History of cystoscopy History of embolic filter insertion History of embolic filter insertion History of gastric bypass History of hysterectomy S/P hysterectomy Total knee replacement status Social History Smoking Status: Never smoker alcohol intake: current alcohol intake frequency: holidays/special occasions only substance use type: does not use what type of physical activity do you participate in: walking and aerobics frequency: 1-2 times per week Physical Exam Const alert, oriented x3 and no apparent distress General Appearance: cooperative Exam Limitations: no limitations Eyes PERRL and EOMs intact bilaterally Neck supple Resp normal air movement and clear to auscultation bilaterally Cardio regular rate and regular rhythm GI soft to palpation, non-tender and non-distended Extremity no clubbing, cyanosis or edema Skin no rashes or lesions noted Neuro CN's II-XII intact bilaterally Medical Records Data Medical Nutrition Assessment Dietitian: Malnutrition Criteria Met Start: 10/01/21 12:00 Freq: Status: Active Protocol: Document 10/01/21 12:00 [facility] (Rec: 10/01/21 12:00 [facility] [id number]) Nutrition Malnutrition Evidence of Malnutrition Exists Yes Malnutrition (severe): Acute Illness/Injury Evidenced By Suboptimal Energy Intake ( Severe),Weight Loss (Severe) Clinical Problem Acute Disease or Injury Related Malnutrition Etiology related to acute illness and not feeling hungry making it difficult to consume adequate nutrition to meet est nutritional needs Signs/Symptoms as evidenced by <50% po intake x >1 mo and 8.1% wt loss in < 2 mo Status Active Problem Recommendation Dietitian Recommendations/Changes Will change diet to liberal Regular d/t signs/symptoms of malnutrition Will monitor need for ONS pending continued po intake and wt trends - pt declines any at this time. Lab / Micro Data Result Diagrams: 10/01/21 05:42 10/01/21 05:42 Labs: Laboratory Results - last 24 hr 09/30/21 15:00: WBC 6.3, RBC 3.84 L, Hgb 11.8 L, Hct 36.5 L, MCV 95.1, MCH 30.7, MCHC 32.3, RDW Std Deviation 47.2 H, RDW Coeff of Chani 13.6, Plt Count 366, MPV 9.4, Immature Gran % (Auto) 1.100 H, Neut % (Auto) 62.6, Lymph % (Auto) 22.6, [place] % (Auto) 11.2 H, Eos % (Auto) 1.7, Baso % (Auto) 0.8, Absolute Neuts (auto) 4.0, Absolute Lymphs (auto) 1.43, Nucleated RBC % 0 09/30/21 15:00: Sodium 138, Potassium 4.4, Chloride 107, Carbon Dioxide 25.0, Anion Gap 6, BUN 15, Creatinine 0.85, Estim Creat Clear Calc 51.46, Est GFR (MDRD) Af Amer 83, Est GFR (MDRD) Non-Af 69, BUN/Creatinine Ratio 17.6, Glucose 99, Calcium 8.6 09/30/21 15:00: Total Bilirubin 0.30, Direct Bilirubin 0.10, AST 16, ALT 12 L, Alkaline Phosphatase 114, Total Protein 6.3 L, Albumin 2.6 L, Globulin 3.7 09/30/21 15:10: Urine Color Brown, Urine Clarity Turbid, Urine pH 7.0, Ur Specific [place] 1.015, Urine Protein 100 H, Urine Glucose (UA) Normal, Urine Ketones 5 H, Urine Occult Blood 250 H, Urine Nitrite Positive H, Urine Bilirubin 3 H, Urine Urobilinogen 4 H, Ur Leukocyte Esterase 500 H, Urine RBC > 100 SEEN, Urine WBC 0-5 SEEN, Ur Squamous Epith Cells 0 SEEN, Urine Bacteria 2+, Urine Mucus 0 SEEN 09/30/21 15:21: Lactic Acid 1.4 10/01/21 05:42: WBC 4.0 L, RBC 3.24 L, Hgb 9.9 L, Hct 31.3 L, MCV 96.6, MCH 30.6, MCHC 31.6 L, RDW Std Deviation 48.7 H, RDW Coeff of Chani 13.7, Plt Count 288, MPV 9.4, Immature Gran % (Auto) 0.700, Neut % (Auto) 47.6, Lymph % (Auto) 35.1, [place] % (Auto) 13.1 H, Eos % (Auto) 2.5, Baso % (Auto) 1.0, Absolute Neuts (auto) 1.9 L, Absolute Lymphs (auto) 1.42, Nucleated RBC % 0 10/01/21 05:42: Sodium 138, Potassium 3.9, Chloride 108 H, Carbon Dioxide 27.0, Anion Gap 3 L, BUN 13, Creatinine 0.55, Estim Creat Clear Calc 43.74, Est GFR (MDRD) Af Amer 140, Est GFR (MDRD) Non-Af 115, BUN/Creatinine Ratio 23.8 H, Glucose 86, Calcium 7.4 L Micro: Microbiology 09/30/21 15:10 Urine Catheter - Catheter Urine Culture - Preliminary GPC Poss Enterococcus sp Radiology Impression Abdomen/Pelvis CT 09/30/21 15:12 IMPRESSION: Right ureteral stent in proper position with moderate right renal hydronephrosis and apparent prominent nonobstructing inferior pole nephroliths. Otherwise no additional acute intra-abdominal process with noted senescent changes as above. Electronically Signed: Harvey Menon DO at 16:23 EDT ,
[2021-10-01 13:57] VITALS: BP 103/52; PULSE 82; RESP 18; TEMP 36.7; O2SAT 93
[2021-10-01] MEDS: Acetaminophen 325 MG Tablet 650 MG PO ×2 (14:03→20:29)
--- NOTE | 2021-10-01 16:00 | CASEMGMT ---
Social Work Note RUKHSANA updated that pt will need IV Antibiotics at discharge. RUKHSANA placed a call to Jacinto at [facility] and updated her. Jacinto states pt's pre-cert is good for today and tomorrow. Pt's pre-cert expires tomorrow. Pt can admit today or tomorrow and if pt doesn't discharge tomorrow to SNF then pre-cert will be needed again. RUKHSANA updated physician. Plan: [facility] skilled Maria E Martinez CONTROL CLERK AUDITING, CLOTH GRADER SUPERVISOR
[2021-10-01] MEDS: Ferrous Sulfate 325 MG Tablet PO (17:17)
[2021-10-01 20:25] VITALS: BP 102/53; PULSE 78; RESP 18; TEMP 36.8; O2SAT 96
[2021-10-01] MEDS: Mirabegron 50 MG TAB.ER.24H 100 MG PO (22:47)
[2021-10-01] MEDS: Pravastatin 40 MG Tablet PO (22:47)
[2021-10-02 02:06] VITALS: BP 115/58; PULSE 75; RESP 18; TEMP 36.7; O2SAT 96
[2021-10-02] MEDS: oxyCODONE 5 MG Tablet PO ×4 (02:09→14:40)
[2021-10-02] MEDS: Mag Hydrox/Al Hydrox/Simeth 30 ML UDC PO (02:10)
[2021-10-02] MEDS: Vancomycin IV 1,000 MG/200 ML BAG 200 MG IV (05:53)
[2021-10-02] MEDS: 0.9% Saline Lock 10 ML Syringe IV ×2 (05:53→18:32)
[2021-10-02 06:00] LABS: Absolute Lymphocyte Count 1.43 X10^3/uL (0.83-4.51); Absolute Neutrophil Count 2.5 X10^3/uL (2.0-7.7); Basophil# 0.03 X10^3/uL; Basophil% 0.7 % (0-1); Eosinophils% 2.2 % (0-5); Hematocrit 32.2 % (37-47); Hemoglobin 10.2 g/dL (12.0-15.0); Lymphocyte # 1.43 X10^3/ul (0.83-4.51); Lymphocyte % 31.7 % (19-41); Mean Corp Hgb Conc 31.7 g/dL (32-36); Mean Corpuscular Volume 94.7 fL (81-99); Mean Platelet Vol. 9.2 fl (6.2-12.0); Monocyte# 0.44 X10^3/uL; Monocyte% 9.8 % (0-10); NRBC Flagged by Analyzer 0 % (0-5); Neutrophil # 2.49 X10^3/uL (2.7-7.7); Neutrophil % 55.2 % (47-70); Platelet Count 287 K/mm3 (150-450); RBC Distribution Width CV 13.6 % (11.6-14.6); RBC Distribution Width SD 47.3 fl (35.1-43.9); White Blood Count 4.5 K/mm3 (4.4-11.0)
[2021-10-02] MEDS: Acetaminophen 325 MG Tablet 650 MG PO ×3 (06:28→18:32)
[2021-10-02] MEDS: Primidone 50 MG Tablet 100 MG PO ×2 (06:28→14:39)
[2021-10-02 06:31] LABS: Vancomycin, Trough Level 17.9 ug/mL (5.0-15.0)
[2021-10-02 06:33] LABS: ALB/GLOB Ratio 0.6 RATIO (0.9-2.4); AST(SGOT) 10 U/L (15-37); Alanine Aminotransfer ALT/SGPT 8 U/L (13-56); Albumin, Serum 1.9 g/dL (3.2-5.0); Alkaline Phosphatase 91 U/L (45-117); Anion Gap 3 (5-15); BUN 12 mg/dL (7-18); BUN/Creat Ratio 20.1 RATIO (10-20); Calcium,Total 8.2 mg/dL (8.5-10.1); Chloride 108 mmol/L (98-107); EST Glomerular Filtration Rate 104 mL/min (>60); Est Glom Filt Rate - Afr Amer 126 mL/min (>60); Estimated Creatinine Clearance 43.74 ml/min; Globulin 3.1 g/dL (2.2-4.2); Glucose 88 mg/dL (74-106); Potassium 4.1 mmol/L (3.5-5.1); Sodium Level 138 mmol/L (136-145)
--- NOTE | 2021-10-02 06:49 | PCM.RX.CS ---
Consult Pharmacy has been consulted to manage selected antiobiotic: Vancomycin Type of Consult: Follow-up Labs: Sodium 138 mmol/L (136-145) 10/02/21 05:34 Potassium 4.1 mmol/L (3.5-5.1) 10/02/21 05:34 Chloride 108 mmol/L (98-107) H 10/02/21 05:34 Carbon Dioxide 27.0 mmol/L (21.0-32.0) 10/02/21 05:34 Anion Gap 3 (5-15) L 10/02/21 05:34 BUN 12 mg/dL (7-18) 10/02/21 05:34 Creatinine 0.60 mg/dL (0.55-1.02) 10/02/21 05:34 Est GFR (MDRD) Af Amer 126 mL/min (>60) 10/02/21 05:34 Est GFR (MDRD) Non-Af 104 mL/min (>60) 10/02/21 05:34 BUN/Creatinine Ratio 20.1 RATIO (10-20) H 10/02/21 05:34 Glucose 88 mg/dL (74-106) 10/02/21 05:34 Vancomycin Trough 17.9 ug/mL (5.0-15.0) H 10/02/21 05:34 Microbiology: Microbiology 09/30/21 15:10 Urine Catheter - Catheter Urine Culture - Preliminary GPC Poss Enterococcus sp Goal Trough: 15-20 mcg/mL Pharmacy Plan for Drug Dosing: VANCOMYCIN LEVEL RECEIVED Current Vancomycin Dose: 1000mg q2h (,18) Number of Doses Received: 2000mg loading dose x1, 1000mg x2 Vancomycin Level: 17.9 Hours Since Last Dose: 11.5 Renal Function: SrCr 0.6 (rounded to 0.8 for age of 76) Renal Function Trend: stable Lab/Micro: Vancomycin Plan/Comments: resulted trough of 17.9 is within the ordered goal trough range of 15-20. recommend continuing current dose of 1000mg q12h and checking trough in 4 more doses. Pending Level: 10/03/21 at 1730 Pharmacy Service will continue to monitor and adjust dosing as required. Follow-Up Labs: Trough Vancomycin - 10/03/21 at 1730
[2021-10-02 09:31] VITALS: BP 137/72; PULSE 78; RESP 18; TEMP 36.7; O2SAT 96
[2021-10-02] MEDS: Pantoprazole Sodium 40 MG Tablet PO (09:33)
[2021-10-02] MEDS: Furosemide 20 MG Tablet 60 MG PO (09:33)
[2021-10-02] MEDS: DULoxetine Hcl 30 MG Capsule 90 MG PO (09:33)
[2021-10-02] MEDS: Divalproex Sodium 250 MG Tablet 500 MG PO (09:33)
[2021-10-02] MEDS: buPROPion (XL) 150 MG TABLET.XL PO (09:34)
[2021-10-02] MEDS: Oxybutynin 5 MG Tablet PO (09:35)
[2021-10-02] MEDS: Fluticasone 0.05% 1 SPRAY NASAL.SRY 2 SPRAY NASAL (09:35)
[2021-10-02] MEDS: APIXABAN 5 MG TABLET PO (09:35)
--- NOTE | 2021-10-02 11:30 | CASEMGMT ---
Social Work Note SW in to speak with pt. Pt's daughter Guera present in room. SW introduced self and role at [facility]. Pt gave this worker permission to speak to her in front of her guest. RUKHSANA informed pt and Guera that pt bj need IV antibiotics at discharge so pt will need to go to [facility]. Pt and Guera state understanding. RUKHSANA informed Pt and Guera that medically pt is ready for discharge today, so pt will discharge to [facility] today. Pt and Guera state understanding. Plan: [facility] skilled today Maria E Martinez MACHINE II COREMAKER, PRODUCT MARKETING MANAGER
--- NOTE | 2021-10-02 11:30 | CASEMGMT ---
Social Work Note Pt to discharge to [facility] today. SW placed a call to Jacinto at [facility] and updated her. RUKHSANA spoke with RN, pt can transport via wheelchair van. SW will fax completed discharge paperwork and arrange transportation once discharge paperwork is completed. Plan: [facility] skilled today Maria E Martinez CHILD CARE CENTRE DIRECTOR, SAMPLE PREP TECHNICIAN
[2021-10-02] MEDS: Docusate Sodium 100 MG Capsule PO (12:19)
--- NOTE | 2021-10-02 12:33 | TREXTCAR_ITS ---
Diet 09/30/21 18:26 Diet: Cardiac - Heart Healthy Food consistency:: Regular Liquid Consistency:: Regular/Thin Routine Orders/Code Status Change Red Catheter: leave red until seen by Urology O2 Frequency: PRN Routine Lab Work: CBC (Weekly as needed) and BMP (Weekly as needed) Code Status: Full Code Therapies Weight Bearing: Full weight bearing Physical Therapy: Eval and Treat Occupational Therapy: Eval and Treat Problem/Diagnosis (1) UTI (urinary tract infection): Status: Acute Allergies/Procedures Done in Hospital Allergies ampicillin [From Unasyn] Allergy (Severe, Verified 09/30/21 18:22) Blisters on tongue /throat difficulty breathing sore tongue/ warfarin sodium [From Coumadin] Allergy (Severe, Verified 08/10/21 08:18) Low red blood cells Procedures: None Type of Care/Length of Stay Estimated LOS: Convalescent Care Less Than 30 days Type of Care Needed: Skilled Rehab Potential: Fair Prognosis: Fair Additional Orders/Day of Discharge Day of Discharge: 10/02/21 Dietary and Speech Recommendations Dietitian Recommendations/Changes: Will change diet to liberal Regular d/t signs/symptoms of malnutrition Will monitor need for ONS pending continued po intake and wt trends - pt declines any at this time. Discharge Plan Admission Admit Date/Time: 09/30/21 17:38 Attending Provider: Abi Sierra Primary Care Provider: Jefferson Roman Chi Consulting Providers: Rahat Crenshaw ; Freddy Varner Discharge Orders/Prescriptions Prescriptions: New vancomycin in 0.9 % sodium chl 1 gram/200 mL piggyback 1 g IV Q12H 14 Days Qty: 5600 RF: 0 No Action cholecalciferol (vitamin D3) [Vitamin D3] 1,000 UNIT tablet 1,000 unit PO DAILY RF: 0 duloxetine 60 MG capsule 90 mg PO DAILY RF: 0 pravastatin 40 MG tablet 40 mg PO QHS RF: 0 primidone 50 MG tablet 100 mg PO TID RF: 0 fluticasone propionate 1 SPRAY spray,suspension 2 spray NASAL DAILY RF: 0 simethicone 80 MG tablet 80 mg PO TIDCM RF: 0 mirabegron 50 MG tablet extended release 24 hr 100 mg PO QHS RF: 0 bupropion HCl 150 MG tablet extended release 24 hr 150 mg PO DAILY RF: 0 alum-mag hydroxide-simeth 355 ML suspension 30 ml PO Q4H PRN PRN (Reason: GI DISTRESS) RF: 0 albuterol sulfate 2.5 MG/3 ML solution for nebulization 2.5 mg INHALATION Q2H PRN PRN (Reason: Dyspnea, wheezing) RF: 0 ascorbic acid (vitamin C) 500 MG tablet 500 mg PO DAILY RF: 0 cyanocobalamin (vitamin B-12) 1,000 mcg/mL Solution 1,000 mcg IM QMONTH RF: 0 ferrous sulfate 325 mg (65 mg iron) Tablet 325 mg PO DAILY RF: 0 omeprazole 40 mg capsule,delayed release(DR/EC) 40 mg PO DAILY RF: 0 Probiotic 1 cap PO/SL DAILY RF: 0 polyethylene glycol 3350 [Miralax] 17 gram Powder In Packet 17 g PO DAILY RF: 0 nystatin 100,000 unit/gram Powder 1 applic TOPICAL TID RF: 0 acetaminophen [Tylenol] 325 mg Tablet 650 mg PO Q6H PRN PRN (Reason: Pain Score 1-10/Temp > 100.7 F) Qty: 1 RF: 0 furosemide 20 mg Tablet 60 mg PO DAILY Qty: 0 RF: 0 oxybutynin chloride 5 mg Tablet 5 mg PO DAILY RF: 0 ondansetron HCl [ondansetron HCl] 8 MG tablet 8 mg PO Q8H PRN PRN (Reason: Nausea) 7 Days Qty: 20 RF: 0 phenazopyridine [Pyridium] 200 MG tablet 200 mg PO TID PRN PRN (Reason: Bladder Spasms) 7 Days Qty: 30 RF: 0 hydrocodone-acetaminophen 5-325 mg tablet 1 tab PO Q12H PRN PRN (Reason: Pain) RF: 0 divalproex [Depakote] 500 mg Tablet,Delayed Release (Dr/Ec) 500 mg PO BID RF: 0 Eliquis 5 mg Tablet 5 mg PO BID RF: 0 guaifenesin 10 ml PO/SL Q4H PRN PRN (Reason: Cough) RF: 0 Referrals / Follow Up: Alejandra Villavicencio MD [STAFF PHYSICIAN] - In 1 Week (Appointment is Tuesday October 12, 2021 @ 02:30pm.) Freddy Varner MD [STAFF PHYSICIAN] - Within 2 Weeks (Appointment is on Friday @ 0215pm. This appointment is at [facility] office in the Wound center.) Jefferson Roman Chi, MD [Primary Care Provider] -
--- NOTE | 2021-10-02 12:34 | DS.PCM_ITS ---
Providers Date of Admission: 09/30/21 Primary Care Physician: Dr. Jefferson Roman MD Consultations 09/30/21 18:26 Consult: Urology Routine Consulting Provider: Rahat Crenshaw Reason for Consult: right hydronephrosis, has a kidney stent in place EMERGENT Consult: No Notified: Yes Date Notified: 09/30/21 Time Notified: 17:51 Method of Notification: Text 10/01/21 07:36 Consult: Infectious Disease Routine Consulting Provider: Freddy Varner Reason for Consult: VRE UTI with [place] and stents EMERGENT Consult: No Notified: Yes Date Notified: 10/01/21 Time Notified: 07:37 Method of Notification: Text Reason For Visit: UTI, HYDRONEPHROSIS Diagnosis Discharge Diagnosis (1) UTI (urinary tract infection): Status: Acute Code(s): N39.0 - Urinary tract infection, site not specified (2) Calculus of right kidney: Status: Acute Code(s): N20.0 - Calculus of kidney (3) Hydronephrosis: Status: Acute Code(s): N13.30 - Unspecified hydronephrosis Medications at Discharge Home Medications cholecalciferol (vitamin D3) [Vitamin D3] 1,000 unit PO DAILY 12/29/15 duloxetine 90 mg PO DAILY 12/29/15 pravastatin 40 mg PO QHS 08/05/18 fluticasone propionate 2 spray NASAL DAILY 03/18/19 primidone 100 mg PO TID 03/18/19 simethicone 80 mg PO TIDCM 03/18/19 mirabegron 100 mg PO QHS 01/24/20 bupropion HCl 150 mg PO DAILY 08/09/20 alum-mag hydroxide-simeth 30 ml PO Q4H PRN PRN 08/20/20 albuterol sulfate 2.5 mg INHALATION Q2H PRN PRN vial.neb. 08/22/20 ascorbic acid (vitamin C) 500 mg PO DAILY 09/28/20 cyanocobalamin (vitamin B-12) 1,000 mcg IM QMONTH 10/23/20 ferrous sulfate 325 mg PO DAILY 10/23/20 Probiotic 1 cap PO/SL DAILY 07/24/21 omeprazole 40 mg PO DAILY 07/24/21 nystatin 1 applic TOPICAL TID 07/30/21 polyethylene glycol 3350 [Miralax] 17 g PO DAILY 07/30/21 acetaminophen [Tylenol] 650 mg PO Q6H PRN PRN #1 tab 08/14/21 furosemide 60 mg PO DAILY #0 tab 08/14/21 oxybutynin chloride 5 mg PO DAILY 09/03/21 ondansetron HCl 8 mg PO Q8H PRN PRN 7 Days #20 tablet 09/04/21 phenazopyridine [Pyridium] 200 mg PO TID PRN PRN 7 Days #30 tab 09/04/21 Eliquis 5 mg PO BID 09/30/21 divalproex [Depakote] 500 mg PO BID 09/30/21 guaifenesin 10 ml PO/SL Q4H PRN PRN 09/30/21 hydrocodone-acetaminophen 1 tab PO Q12H PRN PRN 09/30/21 vancomycin in 0.9 % sodium chl 1 g IV Q12H 14 Days #5600 ml 10/01/21 Hospital Course Operations None Procedures None and PICC line placement Summary of Care Provided Minutes Spent on Discharge: 38 Hospital Course: Ms. Anderson is a 76-year-old white female who presented to emergency department at [facility] on 09/30/2021 with a chief complaint of abdominal pain. Upon presentation where she reported the abdominal pain started earlier that day. She had previously been diagnosed with kidney stones approximately 5 weeks ago and had a right ureteral stent placed by Dr. Villavicencio. She had evidently been doing well but started having abdominal pain and therefore presented to emergency department. She denies any fevers but did admit to frequent urination with dysuria. Upon presentation her vital signs were unremarkable. Her CBC showed a hemoglobin of 11.8, white count of 6.3 and a platelet count of 366,000. Her chemistry was essentially unremarkable. Her UA showed more than 100 WBCs with positive nitrite and 2+ bacteria. Recent urine cultures have just been obtained on September 24, 2021 and showed positivity for Enterococcus faecalis. She was initially started on IV ceftriaxone in the emergency department but given the previous culture with sensitivities she was changed to vancomycin. She was admitted to the medical floor and maintained on IV antibiotics. A CT was performed the emergency department after Adler placement which noted a right ureteral stent in a proper position with moderate right renal hydronephrosis and apparent prominent nonobstructing inferior pole nephroliths. Given the complex nature of her infection with ongoing stent and hydronephrosis noted on her CT of the abdomen pelvis done the emergency department urology and infectious disease were consulted to assist with management. Urology evaluated the patient and stated that there is no current need for surgical intervention. ID evaluated the patient recommended continuation of her vancomycin for 2 weeks with PICC placement for administration. This would be followed by oral amoxicillin. ID is hoping that urology will be able to obliterate her nephrolith prior to discontinuing antibiotics for source control. A PICC was placed on 10/01/2021. She was able to be discharged back to [facility] however required admission to the skilled side of the facility versus assisted living arrangement. She was discharged in stable condition on 10/02/2021. She has follow-up appointments that have been made for her with Dr. Villavicencio on October 12 at 2:[address] Varner on October 17 at 2:15 PM. She is also to follow-up with her primary care physician in 1 month. Discharge diagnoses: Acute Enterococcus faecalis urinary tract infection Right-sided hydronephrosis Nephrolithiasis Leukopenia-resolved Chronic normocytic anemia History of DVT/PE Hyperlipidemia Urinary incontinence GERD Osteoarthritis Chronic pain Anxiety Depression Physical Exam Const alert, oriented x3, no apparent distress and well nourished Constitutional Narrative: Morbidly obese white female sitting up in bed watching television, appears comfortable and nontoxic at this time, becomes anxious when we start to discuss discharge General Appearance: cooperative, comfortable, well kempt and well developed Exam Limitations: no limitations Nutritional Appearance: morbidly obese HEENT normocephalic, head/scalp atraumatic, hearing grossly normal bilaterally and moist oral mucous membranes HEENT Narrative: Mallampati is 3, no thrush, dentures in place Eyes PERRL, EOMs intact bilaterally and conjunctivae normal Eyes Narrative: No scleral icterus Neck no lymphadenopathy, supple and no JVD Neck Narrative: Trachea is midline, neck is short and thick, no thrush Resp normal respiratory effort, no retractions, no use of accessory muscles and clear to auscultation bilaterally Auscultation: Negative for crackles, rales, rhonchi or wheezes Cardio regular rate, regular rhythm, S1 normal heart sound, S2 normal heart sound, no murmurs, no rub, no gallops, no clicks and no JVD GI normal to inspection, nondistended, normoactive bowel sounds, soft to palpation, non-tender and non-distended GI Narrative: Large pannus, mild diffuse tenderness Palpation: tender Extremity normal to inspection, full ROM and no clubbing, cyanosis or edema Skin no rashes or lesions noted, no wounds, skin turgor normal and no jaundice Neuro oriented x3, CN's II-XII intact bilaterally, moves all extremities and no focal motor deficits Neuro Narrative: Generalized weakness Sensorium / Orientation: awake and alert Speech: speech normal Psych Psych Narrative: Patient was doing well but became very anxious when we discussed discharge Mood & Affect: anxious Medical Records Data Medical Nutrition Assessment Dietitian: Malnutrition Criteria Met Start: 10/01/21 12:00 Freq: Status: Active Protocol: Document 10/01/21 12:00 [facility] (Rec: 10/01/21 12:00 [facility] [id number]) Nutrition Malnutrition Evidence of Malnutrition Exists Yes Malnutrition (severe): Acute Illness/Injury Evidenced By Suboptimal Energy Intake ( Severe),Weight Loss (Severe) Clinical Problem Acute Disease or Injury Related Malnutrition Etiology related to acute illness and not feeling hungry making it difficult to consume adequate nutrition to meet est nutritional needs Signs/Symptoms as evidenced by <50% po intake x >1 mo and 8.1% wt loss in < 2 mo Status Active Problem Recommendation Dietitian Recommendations/Changes Will change diet to liberal Regular d/t signs/symptoms of malnutrition Will monitor need for ONS pending continued po intake and wt trends - pt declines any at this time. Weight / BMI Weight Weight: 127.777 kg Body Mass Index (BMI) 46.8 ABG / Lab / Microbiology Data Result Diagrams: 10/02/21 05:34 10/02/21 05:34 Laboratory: Laboratory Results - last 24 hr 10/02/21 05:34: Vancomycin Trough 17.9 H 10/02/21 05:34: WBC 4.5, RBC 3.40 L, Hgb 10.2 L, Hct 32.2 L, MCV 94.7, MCH 30.0, MCHC 31.7 L, RDW Std Deviation 47.3 H, RDW Coeff of Chani 13.6, Plt Count 287, MPV 9.2, Immature Gran % (Auto) 0.400, Neut % (Auto) 55.2, Lymph % (Auto) 31.7, Teller % (Auto) 9.8, Eos % (Auto) 2.2, Baso % (Auto) 0.7, Absolute Neuts (auto) 2.5, Absolute Lymphs (auto) 1.43, Nucleated RBC % 0 10/02/21 05:34: Sodium 138, Potassium 4.1, Chloride 108 H, Carbon Dioxide 27.0, Anion Gap 3 L, BUN 12, Creatinine 0.60, Estim Creat Clear Calc 43.74, Est GFR (MDRD) Af Amer 126, Est GFR (MDRD) Non-Af 104, BUN/Creatinine Ratio 20.1 H, Glucose 88, Calcium 8.2 L, Total Bilirubin 0.20, AST 10 L, ALT 8 L, Alkaline Phosphatase 91, Total Protein 5.0 L, Albumin 1.9 L, Globulin 3.1, Albumin/Globulin Ratio 0.6 L Microbiology: Microbiology 10/02/21 09:48 Nasal Secretion SARS-CoV-2 Antigen (Rapid) - Final 09/30/21 15:10 Urine Catheter - Catheter Urine Culture - Final Enterococcus faecalis D/C Instructions Discharge Diet: Low fat / Low cholesterol Discharge Activity: Return to Normal Activity Meaningful Use Info Meaningful Use Diagnoses (Choose all that apply): None applicable Discharge Plan Admission Admit Date/Time: 09/30/21 17:38 Primary Reason for Your Visit: Abdominal pain Attending Provider: Abi Sierra Primary Care Provider: Jefferson Roman Chi Consulting Providers: Rahat Crenshaw ; Freddy Varner Discharge Orders/Prescriptions Prescriptions: New vancomycin in 0.9 % sodium chl 1 gram/200 mL piggyback 1 g IV Q12H 14 Days Qty: 5600 RF: 0 Continued cholecalciferol (vitamin D3) [Vitamin D3] 1,000 UNIT tablet 1,000 unit PO DAILY RF: 0 duloxetine 60 MG capsule 90 mg PO DAILY RF: 0 pravastatin 40 MG tablet 40 mg PO QHS RF: 0 primidone 50 MG tablet 100 mg PO TID RF: 0 fluticasone propionate 1 SPRAY spray,suspension 2 spray NASAL DAILY RF: 0 simethicone 80 MG tablet 80 mg PO TIDCM RF: 0 mirabegron 50 MG tablet extended release 24 hr 100 mg PO QHS RF: 0 bupropion HCl 150 MG tablet extended release 24 hr 150 mg PO DAILY RF: 0 alum-mag hydroxide-simeth 355 ML suspension 30 ml PO Q4H PRN PRN (Reason: GI DISTRESS) RF: 0 albuterol sulfate 2.5 MG/3 ML solution for nebulization 2.5 mg INHALATION Q2H PRN PRN (Reason: Dyspnea, wheezing) RF: 0 ascorbic acid (vitamin C) 500 MG tablet 500 mg PO DAILY RF: 0 cyanocobalamin (vitamin B-12) 1,000 mcg/mL Solution 1,000 mcg IM QMONTH RF: 0 ferrous sulfate 325 mg (65 mg iron) Tablet 325 mg PO DAILY RF: 0 omeprazole 40 mg capsule,delayed release(DR/EC) 40 mg PO DAILY RF: 0 Probiotic 1 cap PO/SL DAILY RF: 0 polyethylene glycol 3350 [Miralax] 17 gram Powder In Packet 17 g PO DAILY RF: 0 nystatin 100,000 unit/gram Powder 1 applic TOPICAL TID RF: 0 acetaminophen [Tylenol] 325 mg Tablet 650 mg PO Q6H PRN PRN (Reason: Pain Score 1-10/Temp > 100.7 F) Qty: 1 RF: 0 furosemide 20 mg Tablet 60 mg PO DAILY Qty: 0 RF: 0 oxybutynin chloride 5 mg Tablet 5 mg PO DAILY RF: 0 ondansetron HCl 8 MG tablet 8 mg PO Q8H PRN PRN (Reason: Nausea) 7 Days Qty: 20 RF: 0 phenazopyridine [Pyridium] 200 MG tablet 200 mg PO TID PRN PRN (Reason: Bladder Spasms) 7 Days Qty: 30 RF: 0 hydrocodone-acetaminophen 5-325 mg tablet 1 tab PO Q12H PRN PRN (Reason: Pain) RF: 0 divalproex [Depakote] 500 mg Tablet,Delayed Release (Dr/Ec) 500 mg PO BID RF: 0 Eliquis 5 mg Tablet 5 mg PO BID RF: 0 guaifenesin 10 ml PO/SL Q4H PRN PRN (Reason: Cough) RF: 0 Referrals / Follow Up: Alejandra Villavicencio MD [STAFF PHYSICIAN] - In 1 Week (Appointment is Tuesday October 12, 2021 @ 02:30pm.) Freddy Varner MD [STAFF PHYSICIAN] - Within 2 Weeks (Appointment is on Friday @ 0215pm. This appointment is at [facility] office in the Wound center.) Jefferson Roman Chi, MD [Primary Care Provider] - Within 1 Month Disposition Disposition (needs filled in before D/C Order can be placed): Senior Living Facility Charges/Coding Visit Charges Inpatient E&M: 86135 SNF Disch >30 Min
[2021-10-02] MEDS: Cyanocobalamin (B12) 1,000 MCG/ML Vial 1000 MCG IM (13:04)
--- NOTE | 2021-10-02 13:18 | NURSING ---
Vitamin B-12 given under the direction of Soy RAMIREZ instructor
[2021-10-02 14:19] VITALS: BP 103/58; PULSE 96; RESP 18; TEMP 35.8; O2SAT 93
--- NOTE | 2021-10-02 15:00 | CASEMGMT ---
Social Work Note RUKHSANA completed [facility] in [facility]. RUKHSANA faxed completed discharge paperwork to [facility] including transfer to extended care facility, signed medication list, any scripts, COVID test/tool, and [facility]. Original in SNF folder and copy on pt's chart. SW accessed trip assist and earliest Physician's can transport pt is 5:30pm via wheelchair van. Transportation form completed and placed on SNF folder and copy on pt's chart. RUKHSANA updated RN on transportation time. SW in to speak with pt. RUKHSANA updated pt on discharge and transportation time to [facility] tonanel. Pt states understanding. RUKHSANA asked pt if this worker could call her daughter Guera to update and pt gave this worker permission to do so. RUKHSANA placed a call to pt's daughter Guera and updated her on discharge and transportation to [facility]. Guera states understanding, asked how pt will get her dinner. RUKHSANA informed Guera that an early dinner tray can be provided to pt. Guera states understanding. RUKHSANA asked PAPERBOARD MACHINE OPERATOR to order early dinner tray for pt. PAPERBOARD MACHINE OPERATOR states she told pt to order dinner. Plan: [facility] skilled under Convalescent stay with Physician's transporting pt via wheelchair van at 5:30pm JOSESITO RamirezW
[2021-10-02] MEDS: Ondansetron 8 MG Tablet PO (15:54)
--- NOTE | 2021-10-02 16:01 | PHA.DC.MR ---
Pharmacy Service has performed discharge medication reconciliation for this patient. The patient's discharge medication list was reviewed for discrepancies and discrepancies were resolved. Home Medications cholecalciferol (vitamin D3) [Vitamin D3] 1,000 unit PO DAILY 12/29/15 duloxetine 90 mg PO DAILY 12/29/15 pravastatin 40 mg PO QHS 08/05/18 fluticasone propionate 2 spray NASAL DAILY 03/18/19 primidone 100 mg PO TID 03/18/19 simethicone 80 mg PO TIDCM 03/18/19 mirabegron 100 mg PO QHS 01/24/20 bupropion HCl 150 mg PO DAILY 08/09/20 alum-mag hydroxide-simeth 30 ml PO Q4H PRN PRN 08/20/20 albuterol sulfate 2.5 mg INHALATION Q2H PRN PRN vial.neb. 08/22/20 ascorbic acid (vitamin C) 500 mg PO DAILY 09/28/20 cyanocobalamin (vitamin B-12) 1,000 mcg IM QMONTH 10/23/20 ferrous sulfate 325 mg PO DAILY 10/23/20 Probiotic 1 cap PO/SL DAILY 07/24/21 omeprazole 40 mg PO DAILY 07/24/21 nystatin 1 applic TOPICAL TID 07/30/21 polyethylene glycol 3350 [Miralax] 17 g PO DAILY 07/30/21 acetaminophen [Tylenol] 650 mg PO Q6H PRN PRN #1 tab 08/14/21 furosemide 60 mg PO DAILY #0 tab 08/14/21 oxybutynin chloride 5 mg PO DAILY 09/03/21 ondansetron HCl 8 mg PO Q8H PRN PRN 7 Days #20 tablet 09/04/21 phenazopyridine [Pyridium] 200 mg PO TID PRN PRN 7 Days #30 tab 09/04/21 Eliquis 5 mg PO BID 09/30/21 divalproex [Depakote] 500 mg PO BID 09/30/21 guaifenesin 10 ml PO/SL Q4H PRN PRN 09/30/21 hydrocodone-acetaminophen 1 tab PO Q12H PRN PRN 09/30/21 vancomycin in 0.9 % sodium chl 1 g IV Q12H 14 Days #5600 ml 10/01/21
== END 2021-10-02 18:40 | disposition skilled nursing facility (03) | DRG 690 ==
LOC: ED 17:34 → MS3 17:52
PROVIDERS: Admitting Provider Student in an Organized Health Care Education/Training Program; Emergency Provider Emergency Medicine; PCP Family Medicine Geriatric Medicine; Visit Provider Internal Medicine
DX: N13.6 Pyonephrosis (principal); Z68.42 Body mass index [BMI] 45.0-49.9, adult; E11.40 Type 2 diabetes mellitus with diabetic neuropathy, unspecified; E66.01 Morbid (severe) obesity due to excess calories; B95.2 Enterococcus as the cause of diseases classified elsewhere; D64.9 Anemia, unspecified; M19.90 Unspecified osteoarthritis, unspecified site; E78.5 Hyperlipidemia, unspecified; K21.9 Gastro-esophageal reflux disease without esophagitis; F41.9 Anxiety disorder, unspecified; Z66 Do not resuscitate; Z79.01 Long term (current) use of anticoagulants; F32.A Depression, unspecified; Z80.0 Family history of malignant neoplasm of digestive organs; Z87.442 Personal history of urinary calculi
CPT/HCPCS: 36415; 36569; 74176; 80048; 80053; 80076; 80202; 81001; 83605; 85025; 87040; 87077; 87086; 87088; 87186; 87426; 97110; 97162; 97166; 97530; 97802; 99284; J7030; J7040; J7050; A4216; J2405; J3420

== ENCOUNTER → 2021-10-08 | Outpatient (REF) | payer MEDICARE, MEDICAID, SELFPAY ==
[2021-10-08 08:08] LABS: Absolute Lymphocyte Count 1.41 X10^3/uL (0.83-4.51); Absolute Neutrophil Count 3.7 X10^3/uL (2.0-7.7); Basophil# 0.05 X10^3/uL; Basophil% 0.9 % (0-1); Eosinophil# 0.08 X10^3/uL; Eosinophils% 1.4 % (0-5); Hematocrit 34.5 % (37-47); Lymphocyte # 1.41 X10^3/ul (0.83-4.51); Lymphocyte % 24.2 % (19-41); Mean Corp Hgb Conc 31.9 g/dL (32-36); Mean Corpuscular Hgb 30.7 pg (27.0-32.0); Mean Corpuscular Volume 96.4 fL (81-99); Mean Platelet Vol. 9.7 fl (6.2-12.0); Monocyte# 0.54 X10^3/uL; Monocyte% 9.3 % (0-10); NRBC Flagged by Analyzer 0 % (0-5); Neutrophil # 3.72 X10^3/uL (2.7-7.7); Neutrophil % 63.7 % (47-70); Platelet Count 283 K/mm3 (150-450); RBC Distribution Width CV 13.7 % (11.6-14.6); RBC Distribution Width SD 48.8 fl (35.1-43.9); Red Blood Count 3.58 M/mm3 (4.2-5.4); White Blood Count 5.8 K/mm3 (4.4-11.0)
[2021-10-08 08:16] LABS: Anion Gap 6 (5-15); BUN 18 mg/dL (7-18); Calcium,Total 7.6 mg/dL (8.5-10.1); Chloride 106 mmol/L (98-107); Creatinine, Serum 0.86 mg/dL (0.55-1.02); EST Glomerular Filtration Rate 69 mL/min (>60); Est Glom Filt Rate - Afr Amer 83 mL/min (>60); Glucose 73 mg/dL (74-106); Sodium Level 138 mmol/L (136-145)
[2021-10-08 08:28] LABS: Vancomycin, Trough Level 22.8 ug/mL (5.0-15.0)
== END | disposition home or self-care (01) ==
LOC: OLS.SW1020 05:00
PROVIDERS: PCP Family Medicine Geriatric Medicine; Visit Provider Family Medicine
DX: N10 Acute pyelonephritis (principal); Z79.899 Other long term (current) drug therapy
CPT/HCPCS: 36415; 80048; 80202; 85025

== ENCOUNTER → 2021-10-10 | Outpatient (REF) | payer MEDICARE, MEDICAID, SELFPAY ==
[2021-10-10 08:57] LABS: Vancomycin, Trough Level 14.1 ug/mL (5.0-15.0)
[2021-10-10 09:04] LABS: Anion Gap 7 (5-15); BUN 14 mg/dL (7-18); BUN/Creat Ratio 20.7 RATIO (10-20); Calcium,Total 8.1 mg/dL (8.5-10.1); Chloride 104 mmol/L (98-107); Creatinine, Serum 0.68 mg/dL (0.55-1.02); EST Glomerular Filtration Rate 90 mL/min (>60); Est Glom Filt Rate - Afr Amer 109 mL/min (>60); Glucose 80 mg/dL (74-106); Sodium Level 138 mmol/L (136-145)
== END | disposition home or self-care (01) ==
LOC: OLS.SW1020 05:00
PROVIDERS: PCP Family Medicine Geriatric Medicine; Visit Provider Family Medicine
DX: N10 Acute pyelonephritis (principal); E11.40 Type 2 diabetes mellitus with diabetic neuropathy, unspecified; I51.9 Heart disease, unspecified
CPT/HCPCS: 36415; 80048; 80202

== ENCOUNTER → 2021-10-15 | Outpatient (REF) | payer SELFPAY ==
[2021-10-15 09:08] LABS: Color, Urine Yellow (Yellow); Glucose, Dipstick Normal (Normal); Ketone-Dipstick 5 mg/dl (Negative); Leukocyte Esterase-Dipstick 500 /ul (Negative); Nitrite-Dipstick Positive (Negative); Occult Blood-Urine 250 /ul (Negative); Protein-Dipstick 100 mg/dl (Negative); Specific Gravity, Urine 1.015 (1.002-1.030); Urine Bilirubin Dipstick Negative (Negative); Urine Clarity Cloudy (Clear); Urine Urobilinogen Normal (Normal)
[2021-10-15 09:13] LABS: Hemoglobin 9.6 g/dL (12.0-15.0); Mean Corpuscular Hgb 30.4 pg (27.0-32.0); Mean Corpuscular Volume 98.1 fL (81-99); Platelet Count 199 K/mm3 (150-450); RBC Distribution Width CV 13.6 % (11.6-14.6); RBC Distribution Width SD 49.1 fl (35.1-43.9); Red Blood Count 3.16 M/mm3 (4.2-5.4); White Blood Count 3.7 K/mm3 (4.4-11.0)
[2021-10-15 09:19] LABS: Vancomycin, Trough Level 15.9 ug/mL (5.0-15.0)
[2021-10-15 09:28] LABS: Anion Gap 5 (5-15); BUN 17 mg/dL (7-18); BUN/Creat Ratio 22.5 RATIO (10-20); Calcium,Total 7.6 mg/dL (8.5-10.1); Chloride 105 mmol/L (98-107); Creatinine, Serum 0.76 mg/dL (0.55-1.02); EST Glomerular Filtration Rate 79 mL/min (>60); Est Glom Filt Rate - Afr Amer 96 mL/min (>60); Glucose 78 mg/dL (74-106); Potassium 4.1 mmol/L (3.5-5.1); Sodium Level 138 mmol/L (136-145)
== END | disposition home or self-care (01) ==
LOC: OLS.SW1020 04:00
PROVIDERS: PCP Family Medicine Geriatric Medicine; Referring Provider Family Medicine; Visit Provider Family Medicine
DX: N10 Acute pyelonephritis (principal); Z79.899 Other long term (current) drug therapy
CPT/HCPCS: 36415; 80048; 80202; 81002; 85027; 87077; 87086; 87088; 87186

== ENCOUNTER → 2021-10-16 | Outpatient (REF) | payer SELFPAY ==
[2021-10-17 06:58] LABS: Mucous, Urine 0 SEEN /hpf (<or=2+); Squamous Epithelial Cells - UA 0 SEEN /hpf (5-10)
[2021-10-17 08:09] LABS: Color, Urine Yellow (Yellow); Glucose, Dipstick Normal (Normal); Ketone-Dipstick Negative (Negative); Leukocyte Esterase-Dipstick 500 /ul (Negative); Nitrite-Dipstick Positive (Negative); Occult Blood-Urine 250 /ul (Negative); Protein-Dipstick 100 mg/dl (Negative); Specific Gravity, Urine 1.015 (1.002-1.030); Urine Bilirubin Dipstick Negative (Negative); Urine Clarity Cloudy (Clear); Urine Urobilinogen Normal (Normal)
[2021-10-17 08:39] LABS: Red Blood Cells-Urine 10-25 SEEN /hpf (0-5); White Blood Cells 25-50 SEEN /hpf (0-5)
[2021-10-17 08:40] LABS: Bacteria 4+ /hpf (None Seen)
== END | disposition home or self-care (01) ==
LOC: OLS.SW500 06:57
PROVIDERS: PCP Family Medicine Geriatric Medicine; Referring Provider Family Medicine; Visit Provider Family Medicine
DX: N39.0 Urinary tract infection, site not specified (principal)
CPT/HCPCS: 81001; 87077; 87086; 87088; 87186

== ENCOUNTER → 2021-10-22 | Outpatient (REF) | payer SELFPAY ==
[2021-10-22 10:47] LABS: Hemoglobin 10.7 g/dL (12.0-15.0); Mean Corp Hgb Conc 31.5 g/dL (32-36); Mean Corpuscular Hgb 30.3 pg (27.0-32.0); Mean Corpuscular Volume 96.3 fL (81-99); Mean Platelet Vol. 9.7 fl (6.2-12.0); Platelet Count 246 K/mm3 (150-450); RBC Distribution Width CV 13.8 % (11.6-14.6); RBC Distribution Width SD 49.5 fl (35.1-43.9); Red Blood Count 3.53 M/mm3 (4.2-5.4)
[2021-10-22 11:18] LABS: Anion Gap 5 (5-15); BUN 17 mg/dL (7-18); BUN/Creat Ratio 21.1 RATIO (10-20); Chloride 106 mmol/L (98-107); EST Glomerular Filtration Rate 74 mL/min (>60); Est Glom Filt Rate - Afr Amer 89 mL/min (>60); Glucose 79 mg/dL (74-106); Potassium 4.2 mmol/L (3.5-5.1); Sodium Level 139 mmol/L (136-145)
== END | disposition home or self-care (01) ==
LOC: OLS.SW500 04:00
PROVIDERS: PCP Family Medicine Geriatric Medicine; Referring Provider Family Medicine; Visit Provider Family Medicine
DX: N10 Acute pyelonephritis (principal)
CPT/HCPCS: 36415; 80048; 85027

== ENCOUNTER → 2021-10-29 | Outpatient (REF) | payer SELFPAY ==
[2021-10-29 08:26] LABS: Hematocrit 35.7 % (37-47); Mean Corp Hgb Conc 30.8 g/dL (32-36); Mean Corpuscular Hgb 30.2 pg (27.0-32.0); Mean Corpuscular Volume 98.1 fL (81-99); Mean Platelet Vol. 10.1 fl (6.2-12.0); Platelet Count 250 K/mm3 (150-450); RBC Distribution Width CV 13.9 % (11.6-14.6); RBC Distribution Width SD 50.1 fl (35.1-43.9); Red Blood Count 3.64 M/mm3 (4.2-5.4); White Blood Count 6.2 K/mm3 (4.4-11.0)
[2021-10-29 08:46] LABS: Anion Gap 7 (5-15); BUN 17 mg/dL (7-18); BUN/Creat Ratio 20.1 RATIO (10-20); Chloride 104 mmol/L (98-107); Creatinine, Serum 0.84 mg/dL (0.55-1.02); EST Glomerular Filtration Rate 70 mL/min (>60); Est Glom Filt Rate - Afr Amer 84 mL/min (>60); Glucose 87 mg/dL (74-106); Sodium Level 138 mmol/L (136-145)
== END | disposition home or self-care (01) ==
LOC: OLS.SW500 04:00
PROVIDERS: PCP Family Medicine Geriatric Medicine; Referring Provider Family Medicine; Visit Provider Family Medicine
DX: N10 Acute pyelonephritis (principal)
CPT/HCPCS: 36415; 80048; 85027

== ENCOUNTER 2021-11-01 18:00 | Outpatient (REF) | payer MEDICARE, MEDICAID, SELFPAY ==
[2021-11-02 09:21] LABS: Color, Urine Amber (Yellow); Glucose, Dipstick Normal (Normal); Ketone-Dipstick 5 mg/dl (Negative); Leukocyte Esterase-Dipstick 500 /ul (Negative); Nitrite-Dipstick Positive (Negative); Occult Blood-Urine 250 /ul (Negative); Protein-Dipstick 100 mg/dl (Negative); Specific Gravity, Urine 1.015 (1.002-1.030); Urine Clarity Cloudy (Clear); Urine Urobilinogen 8 mg/dl (Normal)
[2021-11-02 09:23] LABS: Urine Bilirubin Dipstick 3 mg/dL (Negative)
== END 2021-11-01 23:59 | disposition home or self-care (01) ==
LOC: OLS.SWAL 18:00
PROVIDERS: PCP Family Medicine Geriatric Medicine
DX: Z01.818 Encounter for other preprocedural examination (principal); N39.0 Urinary tract infection, site not specified; N20.0 Calculus of kidney
CPT/HCPCS: 81002; 87077; 87086; 87088; 87186

== ENCOUNTER 2021-11-03 15:28 | Inpatient (IN) | payer MEDICARE, MEDICAID, SELFPAY ==
[2021-11-03] VITALS (7 sets, daily range): BP systolic 122–153; BP diastolic 56–89; PULSE 75–106; RESP 18; TEMP 36.6–37.2; O2SAT 95–98; BMI 47.5; BMI 46.1
--- NOTE | 2021-11-03 15:39 | CT_ITS ---
STUDY: CT ABDOMEN AND PELVIS WITHOUT CONTRAST REASON FOR EXAM: Female, 76 years old. right flank pain, known stone RADIATION DOSAGE (If Supplied By Facility): CTDIvol = ( 22.17 ) mGy, DLP = ( 1196.27 ) mGycm TECHNIQUE: Transaxial images were obtained from the dome of the diaphragm to the symphysis pubis without oral contrast, and without intravenous contrast. Sagittal and coronal images were reconstructed. Individualized dose optimization techniques were used for this CT. COMPARISON: 09/30/2021 FINDINGS: The visualized lung bases are unremarkable. The visualized portions of the heart are within normal limits. Normal liver. There is non-visualization of the gallbladder, which may be secondary to either contraction or a prior cholecystectomy. Normal spleen. Normal pancreas. Normal bilateral adrenal glands. Similar right hydronephrosis. Right ureteral stent extending from the right renal pelvis to the urinary bladder. There are calculi of the right renal collecting system overall smaller when compared to most recent comparison study. No hydronephrosis of the left kidney. Bilateral cortical thinning redemonstrated. Status post gastric bypass. Normal small intestine. There are multiple colonic diverticula consistent with diverticulosis. There is non-visualization of the appendix. There is diffuse atherosclerotic calcification of the abdominal aorta, without a demonstrated aneurysm. There is an IVC filter in place. Normal retroperitoneum. There are 2 small punctate calculi in the dependent bladder posterior to the stent on image 164 of series 2, new. Small locules of air in the nondependent portion of the bladder likely sequela of recent instrumentation/HAMMONDS catheter. Eventration of the anterior midline abdominal wall with underlying air-filled bowel stable. There are diffuse degenerative changes of the visualized lumbar spine. Injection granulomata of the right gluteal subcutaneous fat. CT/Abdomen/Pelvis without Cont IMPRESSION: 1. Right ureteral stent with similar hydronephrosis. Fragmentation/decreased size of right nephrolithiasis with 2 small calculi in the dependent urinary bladder. Electronically Signed: Dillon Graham MD ([place]) at 16:44 EDT ,
--- NOTE | 2021-11-03 15:42 | EX.ED.DYSGE1 ---
HPI <MADELYN Harrison - Last Filed: 11/03/21 17:57> History of Present Illness Chief Complaint: Abd Pain Narrative Narrative: Patient presents with abdominal pain that worsened today. She has a right kidney stone and a stent placed on 09/04. She states they are supposed to do surgery on November 12 to remove the stent and stone fragments. She has been on antibiotics and follows with Dr. Villavicencio. She has increased pain in September for this issue and was admitted. At that time she was seen by ID and ordered PICC with 2 week course of Vancomycin followed by po amoxicillin which she is taking now until 11/12 per [facility] records. Preliminary recent urine culture shows gram-negative rods. Today the suprapubic pain became severe and she still endorses dysuria. No fever, chills, nausea, or vomiting. [facility] <MADELYN Harrison - Last Filed: 11/03/21 17:57> [facility] Medical History (Updated 10/10/21 @ 00:03 by Lucas Trotter) Anxiety and depression Arthritis Back pain Bladder disease Carpal tunnel syndrome Cataracts, both eyes Chronic anticoagulation Chronic neuropathic pain Chronic pain following surgery or procedure Chronic UTI Closed left arm fracture Cystitis Depression Diabetes Diabetic neuropathy associated with type 2 diabetes mellitus DM II (diabetes mellitus, type II), controlled Facet arthropathy, lumbar FHx: cholecystectomy GERD (gastroesophageal reflux disease) GERD (gastroesophageal reflux disease) GI bleed Hematoma Hiatal hernia High cholesterol History of DVT (deep vein thrombosis) History of edema History of gallstones History of pain when walking History of stress test HLD (hyperlipidemia) Hx of peripheral neuropathy 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 Injury of head and neck Kidney stones Low iron Morbid obesity with BMI of 45.0-49.9, adult Neuropathy Non-smoker Non-smoker Normocytic anemia ROXIE (obstructive sleep apnea) Osteoarthritis Polycystic ovaries Pulmonary embolism Restless legs Segmental and somatic dysfunction of cervical region Segmental and somatic dysfunction of lumbar region Segmental and somatic dysfunction of pelvic region Segmental and somatic dysfunction of thoracic region Shortness of breath on exertion Uses wheelchair Walker as ambulation aid Wears dentures Wears hearing aid Home Medications cholecalciferol (vitamin D3) [Vitamin D3] 1,000 unit PO DAILY 12/29/15 [History Last Taken 07/24/21] duloxetine 90 mg PO DAILY 12/29/15 [History Last Taken 07/24/21] pravastatin 40 mg PO QHS 08/05/18 [History Last Taken 07/23/21] fluticasone propionate 2 spray NASAL DAILY 03/18/19 [History Last Taken 07/24/21] primidone 100 mg PO TID 03/18/19 [History Last Taken 07/24/21 12:00] simethicone 80 mg PO TIDCM 03/18/19 [History Last Taken 07/24/21 12:00] mirabegron 100 mg PO QHS 01/24/20 [History Last Taken 07/23/21] bupropion HCl 150 mg PO DAILY 08/09/20 [History Last Taken 07/24/21] alum-mag hydroxide-simeth 30 ml PO Q4H PRN PRN 08/20/20 [History Last Taken 10/22/20] albuterol sulfate 2.5 mg INHALATION Q2H PRN PRN vial.neb. 08/22/20 [Rx Last Taken Unknown] ascorbic acid (vitamin C) 500 mg PO DAILY 09/28/20 [History Last Taken 07/24/21] cyanocobalamin (vitamin B-12) 1,000 mcg IM QMONTH 10/23/20 [History Last Taken 08/24/21] ferrous sulfate 325 mg PO DAILY 10/23/20 [History Last Taken 07/24/21] Probiotic 1 cap PO/SL DAILY 07/24/21 [History Last Taken 07/23/21] omeprazole 40 mg PO DAILY 07/24/21 [History Last Taken 07/24/21] nystatin 1 applic TOPICAL TID 07/30/21 [History Last Taken Unknown] acetaminophen [Tylenol] 650 mg PO Q6H PRN PRN #1 tab 08/14/21 [Rx Last Taken Unknown] furosemide 60 mg PO DAILY #0 tab 08/14/21 [Rx Last Taken Unknown] oxybutynin chloride 5 mg PO DAILY 09/03/21 [History Last Taken Unknown] ondansetron HCl 8 mg PO Q8H PRN PRN 7 Days #20 tablet 09/04/21 [Rx Last Taken Unknown] phenazopyridine [Pyridium] 200 mg PO TID PRN PRN 7 Days #30 tab 09/04/21 [Rx Last Taken Unknown] Eliquis 5 mg PO BID 09/30/21 [History Last Taken Unknown] divalproex [Depakote] 500 mg PO BID 09/30/21 [History Last Taken Unknown] guaifenesin 10 ml PO/SL Q4H PRN PRN 09/30/21 [History Last Taken Unknown] hydrocodone-acetaminophen 1 tab PO Q12H PRN PRN 09/30/21 [History Last Taken Unknown] amoxicillin 500 mg PO TID 11/03/21 [History Last Taken Unknown] halobetasol propionate applic TOPICAL 11/03/21 [History Last Taken Unknown] Allergy/AdvReac Type Severity Reaction Status Date / Time ampicillin [From Unasyn] Allergy Severe Blisters Verified 11/03/21 15:33 on tongue /throat difficulty breathing sore tongue/ warfarin sodium Allergy Severe Low red Verified 11/03/21 15:33 [From Coumadin] blood cells Family History Father Colon cancer Hypertension Mother Hypertension Surgical History (Updated 10/03/21 @ 13:35 by Mallorie Mo) H/O cardiac catheterization History of carpal tunnel surgery History of cholecystectomy History of cystoscopy History of embolic filter insertion History of embolic filter insertion History of gastric bypass History of hysterectomy Hx of cystoscopy S/P hysterectomy Total knee replacement status Social History Smoking Status: Never smoker alcohol intake: current alcohol intake frequency: holidays/special occasions only substance use type: does not use what type of physical activity do you participate in: walking and aerobics frequency: 1-2 times per week ROS <MADELYN Harrison - Last Filed: 11/03/21 17:57> ROS ED ROS Narrative Constitutional: Negative for fever, chills, malaise. Eyes: Negative for visual change. ENT: Negative for sore throat, ear pain, rhinorrhea. CVS: Negative for palpitations, chest pain, syncope. Respiratory: Negative for shortness of breath, cough, orthopnea. GI: Positive for abdominal pain. Negative for nausea, vomiting, diarrhea, constipation, melena, hematochezia. : Positive for dysuria. Negative for hematuria or frequency. Neuro: Negative for headache, motor/sensory dysfunction. Skin: Negative for rash, abscess, or wound. Musc: Negative for joint pain, swelling, trauma. Heme: Negative for easy bruising, bleeding, lymphadenopathy. EXAM <MADELYN Harrison - Last Filed: 11/03/21 17:57> Physical Exam Narrative Exam Narrative: CONST: Patient sitting in no acute distress. EYES: Normal inspection. ENT: Normal inspection, moist mucous membranes. NECK: Normal inspection. RESP: No respiratory distress, CTAB. CVS: Regular rate and rhythm, no murmur, no gallop. ABD: Soft with suprapubic tenderness, no guarding or rebound, nondistended. Back: Normal inspection, no CVA tenderness. SKIN: Color normal, no rash, warm, dry, intact. EXTREMITIES: Normal appearance, no pedal edema. NEURO: Oriented x4. PSYCH: Normal affect. Const Vital Signs: 11/03/21 15:30 11/03/21 15:32 11/03/21 16:46 Temperature 98.5 F 98.5 F 98.0 F Temperature Source Oral Oral Temporal Pulse Rate 92 95 85 Respiratory Rate 18 18 18 Blood Pressure 125/65 H 125/65 H 130/81 H Blood Pressure Mean 85 85 97 Pulse Ox 95 96 98 Oxygen Delivery Method Room Air Room Air Room Air Oxygen Flow Rate (L/min) 11/03/21 17:34 Temperature 98 F Temperature Source Temporal Pulse Rate 75 Respiratory Rate 18 Blood Pressure 122/56 H Blood Pressure Mean 78 Pulse Ox 97 Oxygen Delivery Method Nasal Cannula Oxygen Flow Rate (L/min) 2 <Dr. Jose Sharp DO - Last Filed: 11/03/21 17:58> Physical Exam Const Vital Signs: 11/03/21 15:30 11/03/21 15:32 11/03/21 16:46 Temperature 98.5 F 98.5 F 98.0 F Temperature Source Oral Oral Temporal Pulse Rate 92 95 85 Respiratory Rate 18 18 18 Blood Pressure 125/65 H 125/65 H 130/81 H Blood Pressure Mean 85 85 97 Pulse Ox 95 96 98 Oxygen Delivery Method Room Air Room Air Room Air Oxygen Flow Rate (L/min) 11/03/21 17:34 Temperature 98 F Temperature Source Temporal Pulse Rate 75 Respiratory Rate 18 Blood Pressure 122/56 H Blood Pressure Mean 78 Pulse Ox 97 Oxygen Delivery Method Nasal Cannula Oxygen Flow Rate (L/min) 2 MDM <MADELYN Harrison - Last Filed: 11/03/21 17:57> MDM MDM Narrative Medical decision making narrative: Patient has a known kidney stone with right ureteral stent placed September 04 and presents with increased suprapubic pain and dysuria. She appears well and nontoxic. Afebrile and vital signs within normal limits. She has suprapubic/right lower quadrant abdominal tenderness but no guarding or rebound. CBC shows normal white count and BMP is within normal limits. UA still has significant UTI so she was given Rocephin and Vancomycin and culture was sent. CT shows right ureteral stent with similar hydronephrosis. There is decreased size stone fragments in the urinary bladder. Patient is having significant pain despite morphine and Zofran and with failure of improvement of UTI will need admitted. I spoke with Dr. Villavicencio to make her aware and she states she can see her tomorrow. She advised consulting ID, Dr. Hernández, who has been managing antibiotics. Case will be discussed with the hospitalist for admission. 1. Complicated UTI with right uretal stent 2. Abdominal pain 3. Failed outpatient therapy Lab Data Labs: Laboratory Results - last 24 hr 11/03/21 11/03/21 11/03/21 15:43 15:43 15:50 WBC 6.5 RBC 3.69 L Hgb 11.2 L Hct 35.5 L MCV 96.2 MCH 30.4 MCHC 31.5 L RDW Std Deviation 49.2 H RDW Coeff of Chani 13.8 Plt Count 263 MPV 9.0 Immature Gran % (Auto) 0.500 Neut % (Auto) 68.7 Lymph % (Auto) 17.7 L [place] % (Auto) 10.5 H Eos % (Auto) 1.7 Baso % (Auto) 0.9 Absolute Neuts (auto) 4.5 Absolute Lymphs (auto) 1.15 Nucleated RBC % 0 Sodium 138 Potassium 4.7 Chloride 103 Carbon Dioxide 27.0 Anion Gap 8 BUN 18 Creatinine 0.89 Estim Creat Clear Calc 49.15 Est GFR (MDRD) Af Amer 80 Est GFR (MDRD) Non-Af 66 BUN/Creatinine Ratio 20.3 H Glucose 107 H Calcium 8.6 Urine Color Yellow Urine Clarity Sl. Cloudy Urine pH 6.0 Ur Specific [place] 1.010 Urine Protein 30 H Urine Glucose (UA) Normal Urine Ketones Negative Urine Occult Blood 250 H Urine Nitrite Positive H Urine Bilirubin 1 H Urine Urobilinogen 4 H Ur Leukocyte Esterase 500 H Urine RBC > 100 SEEN Urine WBC >100 SEEN Ur Squamous Epith Cells 0-5 SEEN Urine Bacteria 2+ Urine Mucus 0 SEEN Radiography Diagnostic Testing: Clinical Impression(s) from Imaging Studies Abdomen/Pelvis CT 11/03/21 15:39 IMPRESSION: 1. Right ureteral stent with similar hydronephrosis. Fragmentation/decreased size of right nephrolithiasis with 2 small calculi in the dependent urinary bladder. Electronically Signed: Dillon Graham MD ([place]) at 16:44 EDT , <Dr. Jose Sharp, DO - Last Filed: 11/03/21 17:58> [facility] Narrative Medical decision making narrative: I have personally performed a face to face assessment of the patient and have reviewed the TABBY Note. I performed a substantive portion of the visit including all aspects of the following. My anderson findings include: History is [patient presents to the emergency department with lower abdomen pain. Patient states the pain became severe today and rates it a 10 out of 10. Patient has history of known kidney stone on the right side with a ureteral stent. Patient describes dysuria and frequency. Patient is scheduled to have stent removed on the of the month as well as the stone removed. Patient was admitted for similar complaints a month ago and was seen by I D and urology. Patient had been doing relatively well until today. She denies nausea or vomiting. She denies fever.] Exam is [HEENT-PERRLA, EOMI. Cranial nerves II through XII grossly intact. TMs clear. Mucous membranes moist. No adenopathy. Cardiovascular-regular rate and rhythm without murmur or ectopy Lungs-clear to auscultation, chest wall stable without crepitus or subcu emphysema Abdomen-normoactive bowel sounds, soft. Patient has diffuse tenderness over the lower abdomen with some guarding. There is no rebound, rigidity, or peritoneal signs. Extremities-intact ?4, normal range of motion, normal pulses, atraumatic] Medical Decison Making [IV line established on arrival. Patient was medicated with morphine and Zofran. Lab work-up was unremarkable. Urinalysis was positive for UTI. Patient was started on Rocephin 1 g IV as well as vancomycin IV. Case discussed with patient's urologist as well as hospitalist will evaluate patient for admission. CT scan of her abdomen pelvis was unremarkable and it showed that the right stent was in good position. Patient will be admitted for UTI with failed outpatient therapy and intractable abdominal pain.] Other additions or changes: [None] Lab Data Labs: Laboratory Results - last 24 hr 11/03/21 11/03/21 11/03/21 15:43 15:43 15:50 WBC 6.5 RBC 3.69 L Hgb 11.2 L Hct 35.5 L MCV 96.2 MCH 30.4 MCHC 31.5 L RDW Std Deviation 49.2 H RDW Coeff of Chani 13.8 Plt Count 263 MPV 9.0 Immature Gran % (Auto) 0.500 Neut % (Auto) 68.7 Lymph % (Auto) 17.7 L [place] % (Auto) 10.5 H Eos % (Auto) 1.7 Baso % (Auto) 0.9 Absolute Neuts (auto) 4.5 Absolute Lymphs (auto) 1.15 Nucleated RBC % 0 Sodium 138 Potassium 4.7 Chloride 103 Carbon Dioxide 27.0 Anion Gap 8 BUN 18 Creatinine 0.89 Estim Creat Clear Calc 49.15 Est GFR (MDRD) Af Amer 80 Est GFR (MDRD) Non-Af 66 BUN/Creatinine Ratio 20.3 H Glucose 107 H Calcium 8.6 Urine Color Yellow Urine Clarity Sl. Cloudy Urine pH 6.0 Ur Specific [place] 1.010 Urine Protein 30 H Urine Glucose (UA) Normal Urine Ketones Negative Urine Occult Blood 250 H Urine Nitrite Positive H Urine Bilirubin 1 H Urine Urobilinogen 4 H Ur Leukocyte Esterase 500 H Urine RBC > 100 SEEN Urine WBC >100 SEEN Ur Squamous Epith Cells 0-5 SEEN Urine Bacteria 2+ Urine Mucus 0 SEEN Radiography Diagnostic Testing: Clinical Impression(s) from Imaging Studies Abdomen/Pelvis CT 11/03/21 15:39 IMPRESSION: 1. Right ureteral stent with similar hydronephrosis. Fragmentation/decreased size of right nephrolithiasis with 2 small calculi in the dependent urinary bladder. Electronically Signed: Dillon Graham MD ([place]) at 16:44 EDT , Discharge Plan Triage Chief Complaint: Abd Pain ED Midlevel Provider: Janis Osman ED Provider: Jose Sharp Dx/Rx/DC Orders Prescriptions: No Action cholecalciferol (vitamin D3) [Vitamin D3] 1,000 UNIT tablet 1,000 unit PO DAILY RF: 0 duloxetine 60 MG capsule 90 mg PO DAILY RF: 0 pravastatin 40 MG tablet 40 mg PO QHS RF: 0 primidone 50 MG tablet 100 mg PO TID RF: 0 fluticasone propionate 1 SPRAY spray,suspension 2 spray NASAL DAILY RF: 0 simethicone 80 MG tablet 80 mg PO TIDCM RF: 0 mirabegron 50 MG tablet extended release 24 hr 100 mg PO QHS RF: 0 bupropion HCl 150 MG tablet extended release 24 hr 150 mg PO DAILY RF: 0 alum-mag hydroxide-simeth 355 ML suspension 30 ml PO Q4H PRN PRN (Reason: GI DISTRESS) RF: 0 albuterol sulfate 2.5 MG/3 ML solution for nebulization 2.5 mg INHALATION Q2H PRN PRN (Reason: Dyspnea, wheezing) RF: 0 ascorbic acid (vitamin C) 500 MG tablet 500 mg PO DAILY RF: 0 cyanocobalamin (vitamin B-12) 1,000 mcg/mL Solution 1,000 mcg IM QMONTH RF: 0 ferrous sulfate 325 mg (65 mg iron) Tablet 325 mg PO DAILY RF: 0 omeprazole 40 mg capsule,delayed release(DR/EC) 40 mg PO DAILY RF: 0 Probiotic 1 cap PO/SL DAILY RF: 0 nystatin 100,000 unit/gram Powder 1 applic TOPICAL TID RF: 0 acetaminophen [Tylenol] 325 mg Tablet 650 mg PO Q6H PRN PRN (Reason: Pain Score 1-10/Temp > 100.7 F) Qty: 1 RF: 0 furosemide 20 mg Tablet 60 mg PO DAILY Qty: 0 RF: 0 oxybutynin chloride 5 mg Tablet 5 mg PO DAILY RF: 0 ondansetron HCl 8 MG tablet 8 mg PO Q8H PRN PRN (Reason: Nausea) 7 Days Qty: 20 RF: 0 phenazopyridine [Pyridium] 200 MG tablet 200 mg PO TID PRN PRN (Reason: Bladder Spasms) 7 Days Qty: 30 RF: 0 hydrocodone-acetaminophen 5-325 mg tablet 1 tab PO Q12H PRN PRN (Reason: Pain) RF: 0 divalproex [Depakote] 500 mg Tablet,Delayed Release (Dr/Ec) 500 mg PO BID RF: 0 Eliquis 5 mg Tablet 5 mg PO BID RF: 0 guaifenesin 10 ml PO/SL Q4H PRN PRN (Reason: Cough) RF: 0 amoxicillin 500 mg Capsule 500 mg PO TID RF: 0 halobetasol propionate 0.05 % cream TOPICAL RF: 0 Primary Care Provider: Gonzales Pinto
[2021-11-03] MEDS: 0.9% Normal Saline 1,000 ML 999 ML IV (15:44)
[2021-11-03] MEDS: Ondansetron 4 MG/2 ML Vial IV (15:44)
[2021-11-03] MEDS: Morphine 4 MG/ML Syringe IV ×2 (15:44→16:53)
[2021-11-03 15:49] LABS: Absolute Lymphocyte Count 1.15 X10^3/uL (0.83-4.51); Absolute Neutrophil Count 4.5 X10^3/uL (2.0-7.7); Basophil# 0.06 X10^3/uL; Basophil% 0.9 % (0-1); Eosinophil# 0.11 X10^3/uL; Eosinophils% 1.7 % (0-5); Hematocrit 35.5 % (37-47); Hemoglobin 11.2 g/dL (12.0-15.0); Lymphocyte # 1.15 X10^3/ul (0.83-4.51); Lymphocyte % 17.7 % (19-41); Mean Corp Hgb Conc 31.5 g/dL (32-36); Mean Corpuscular Hgb 30.4 pg (27.0-32.0); Mean Corpuscular Volume 96.2 fL (81-99); Monocyte# 0.68 X10^3/uL; Monocyte% 10.5 % (0-10); NRBC Flagged by Analyzer 0 % (0-5); Neutrophil # 4.46 X10^3/uL (2.7-7.7); Neutrophil % 68.7 % (47-70); Platelet Count 263 K/mm3 (150-450); RBC Distribution Width CV 13.8 % (11.6-14.6); RBC Distribution Width SD 49.2 fl (35.1-43.9); Red Blood Count 3.69 M/mm3 (4.2-5.4); White Blood Count 6.5 K/mm3 (4.4-11.0)
[2021-11-03 16:02] LABS: Anion Gap 8 (5-15); BUN 18 mg/dL (7-18); BUN/Creat Ratio 20.3 RATIO (10-20); Calcium,Total 8.6 mg/dL (8.5-10.1); Chloride 103 mmol/L (98-107); Creatinine, Serum 0.89 mg/dL (0.55-1.02); EST Glomerular Filtration Rate 66 mL/min (>60); Est Glom Filt Rate - Afr Amer 80 mL/min (>60); Estimated Creatinine Clearance 49.15 ml/min; Glucose 107 mg/dL (74-106); Potassium 4.7 mmol/L (3.5-5.1); Sodium Level 138 mmol/L (136-145)
[2021-11-03 16:04] LABS: Mucous, Urine 0 SEEN /hpf (<or=2+)
[2021-11-03 16:05] LABS: Color, Urine Yellow (Yellow); Glucose, Dipstick Normal (Normal); Ketone-Dipstick Negative (Negative); Leukocyte Esterase-Dipstick 500 /ul (Negative); Nitrite-Dipstick Positive (Negative); Occult Blood-Urine 250 /ul (Negative); Protein-Dipstick 30 mg/dl (Negative); Urine Clarity Sl. Cloudy (Clear); Urine Urobilinogen 4 mg/dl (Normal)
[2021-11-03 16:14] LABS: Urine Bilirubin Dipstick 1 mg/dL (Negative)
[2021-11-03 16:15] LABS: White Blood Cells >100 SEEN /hpf (0-5)
--- NOTE | 2021-11-03 16:15 | ED.RN ---
PT RANG OUT FOR STAFF AGAIN. PT REQUESTING FOR THE 5 TH TIME MORE PAIN MEDS. DR AWARE, NO NEW ORDERS
[2021-11-03 16:16] LABS: Bacteria 2+ /hpf (None Seen); Red Blood Cells-Urine > 100 SEEN /hpf (0-5); Squamous Epithelial Cells - UA 0-5 SEEN /hpf (5-10)
--- NOTE | 2021-11-03 17:35 | ED.RN ---
Patient called out for oxygen being low. When RN walked into patients room, patient has moved pulse ox to right arm with her blood pressure cuff. Patient SpO2 86% on RA. Patient was placed on 2L [place].
[2021-11-03] MEDS: Ceftriaxone 1 GM/50 ML BAG IV (17:52)
--- NOTE | 2021-11-03 19:45 | PCM.HP.STD ---
HPI - General General Date of Admission: 11/03/21 HPI Narrative ADAM NIX, is a 76 F who presents with abdominal pain that worsened today -especially in her pelvic area and spreading around to her back. Patient does also noticed dysuria, but has not had any fevers. She was taking Pyridium for several days prior to coming here to help with the dysuria. She does have an extensive history of a kidney stone with a stent placed in August, with a planned removal of stent this month. She had a urinary tract infection and was put on vancomycin, that was transitioned to amoxicillin. She is on the amoxicillin as an outpatient right now. The most recent urine culture 2 days ago from this facility showed gram-negative rods (lactose fermenting) as well as E. coli 2 separate cultures in September that were sensitive to Rocephin and E Faecilis with limited sensitivities. Patient also notes that she has had decreased appetite. Upon work-up in the ER the patient did have a urinary tract infection and was started on antibiotic- Rocephin. Urology was called per ED report and they recommended continuing antibiotics. She was given multiple doses of morphine to help the pain but she continued with complaints of pain upon my exam [facility] Medical History (Updated 11/03/21 @ 20:[address] Vidal Hunter MD) Anxiety and depression Arthritis Back pain Bladder disease Carpal tunnel syndrome Cataracts, both eyes Chronic anticoagulation Chronic neuropathic pain Chronic pain following surgery or procedure Chronic UTI Closed left arm fracture Cystitis Depression Diabetes Diabetic neuropathy associated with type 2 diabetes mellitus DM II (diabetes mellitus, type II), controlled Facet arthropathy, lumbar FHx: cholecystectomy GERD (gastroesophageal reflux disease) GERD (gastroesophageal reflux disease) GI bleed Hematoma Hiatal hernia High cholesterol History of DVT (deep vein thrombosis) History of edema History of gallstones History of pain when walking History of stress test HLD (hyperlipidemia) Hx of peripheral neuropathy 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 Injury of head and neck Kidney stones Low iron Morbid obesity with BMI of 45.0-49.9, adult Neuropathy Non-smoker Non-smoker Normocytic anemia ROXIE (obstructive sleep apnea) Osteoarthritis Polycystic ovaries Pulmonary embolism Restless legs Segmental and somatic dysfunction of cervical region Segmental and somatic dysfunction of lumbar region Segmental and somatic dysfunction of pelvic region Segmental and somatic dysfunction of thoracic region Shortness of breath on exertion Uses wheelchair Walker as ambulation aid Wears dentures Wears hearing aid Home Medications cholecalciferol (vitamin D3) [Vitamin D3] 1,000 unit PO DAILY 12/29/15 [History Last Taken 07/24/21] duloxetine 90 mg PO DAILY 12/29/15 [History Last Taken 07/24/21] pravastatin 40 mg PO QHS 08/05/18 [History Last Taken 07/23/21] fluticasone propionate 2 spray NASAL DAILY 03/18/19 [History Last Taken 07/24/21] primidone 100 mg PO TID 03/18/19 [History Last Taken 07/24/21 12:00] simethicone 80 mg PO TIDCM 03/18/19 [History Last Taken 07/24/21 12:00] mirabegron 100 mg PO QHS 01/24/20 [History Last Taken 07/23/21] bupropion HCl 150 mg PO DAILY 08/09/20 [History Last Taken 07/24/21] alum-mag hydroxide-simeth 30 ml PO Q4H PRN PRN 08/20/20 [History Last Taken 10/22/20] albuterol sulfate 2.5 mg INHALATION Q2H PRN PRN vial.neb. 08/22/20 [Rx Last Taken Unknown] ascorbic acid (vitamin C) 500 mg PO DAILY 09/28/20 [History Last Taken 07/24/21] cyanocobalamin (vitamin B-12) 1,000 mcg IM QMONTH 10/23/20 [History Last Taken 08/24/21] ferrous sulfate 325 mg PO DAILY 10/23/20 [History Last Taken 07/24/21] Probiotic 1 cap PO/SL DAILY 07/24/21 [History Last Taken 07/23/21] omeprazole 40 mg PO DAILY 07/24/21 [History Last Taken 07/24/21] nystatin 1 applic TOPICAL TID 07/30/21 [History Last Taken Unknown] acetaminophen [Tylenol] 650 mg PO Q6H PRN PRN #1 tab 08/14/21 [Rx Last Taken Unknown] furosemide 60 mg PO DAILY #0 tab 08/14/21 [Rx Last Taken Unknown] oxybutynin chloride 5 mg PO DAILY 09/03/21 [History Last Taken Unknown] ondansetron HCl 8 mg PO Q8H PRN PRN 7 Days #20 tablet 09/04/21 [Rx Last Taken Unknown] phenazopyridine [Pyridium] 200 mg PO TID PRN PRN 7 Days #30 tab 09/04/21 [Rx Last Taken Unknown] Eliquis 5 mg PO BID 09/30/21 [History Last Taken Unknown] divalproex [Depakote] 500 mg PO BID 09/30/21 [History Last Taken Unknown] guaifenesin 10 ml PO/SL Q4H PRN PRN 09/30/21 [History Last Taken Unknown] hydrocodone-acetaminophen 1 tab PO Q12H PRN PRN 09/30/21 [History Last Taken Unknown] amoxicillin 500 mg PO TID 11/03/21 [History Last Taken Unknown] halobetasol propionate applic TOPICAL 11/03/21 [History Last Taken Unknown] Allergy/AdvReac Type Severity Reaction Status Date / Time ampicillin [From Unasyn] Allergy Severe Blisters Verified 11/03/21 15:33 on tongue /throat difficulty breathing sore tongue/ warfarin sodium Allergy Severe Low red Verified 11/03/21 15:33 [From Coumadin] blood cells Family History Father Colon cancer Hypertension Mother Hypertension Surgical History H/O cardiac catheterization History of carpal tunnel surgery History of cholecystectomy History of cystoscopy History of embolic filter insertion History of embolic filter insertion History of gastric bypass History of hysterectomy Hx of cystoscopy S/P hysterectomy Total knee replacement status Social History Smoking Status: Never smoker alcohol intake: current alcohol intake frequency: holidays/special occasions only substance use type: does not use what type of physical activity do you participate in: walking and aerobics frequency: 1-2 times per week ROS ROS Narrative 10 point review of systems was completed and negative except for pertinent positives above in HPI Vital Signs Vital Signs Vital Signs: 11/03/21 15:30 11/03/21 15:32 11/03/21 16:46 Temperature 98.5 F 98.5 F 98.0 F Temperature Source Oral Oral Temporal Pulse Rate 92 95 85 Respiratory Rate 18 18 18 Blood Pressure 125/65 H 125/65 H 130/81 H Blood Pressure Mean 85 85 97 Pulse Ox 95 96 98 Oxygen Delivery Method Room Air Room Air Room Air Oxygen Flow Rate (L/min) 11/03/21 17:34 11/03/21 18:12 Temperature 98 F 98 F Temperature Source Temporal Temporal Pulse Rate 75 88 Respiratory Rate 18 18 Blood Pressure 122/56 H 153/89 H Blood Pressure Mean 78 110 Pulse Ox 97 97 Oxygen Delivery Method Nasal Cannula Nasal Cannula Oxygen Flow Rate (L/min) 2 2 Weight Weight: 285 lb 4.45 oz Body Mass Index (BMI) 47.5 Physical Exam Const alert Constitutional Narrative: mild distress General Appearance: cooperative HEENT normocephalic and head/scalp atraumatic Eyes PERRL and EOMs intact bilaterally Resp normal respiratory effort and no retractions Cardio regular rate and regular rhythm GI normal to inspection, nondistended, normoactive bowel sounds Extremity normal to inspection Skin no rashes or lesions noted and no wounds Neuro Sensorium / Orientation: awake and alert Psych affect normal Results Lab / Micro Data Result Diagrams: 11/03/21 15:43 11/03/21 15:43 Labs: Laboratory Results - last 24 hr 11/03/21 15:43: WBC 6.5, RBC 3.69 L, Hgb 11.2 L, Hct 35.5 L, MCV 96.2, MCH 30.4, MCHC 31.5 L, RDW Std Deviation 49.2 H, RDW Coeff of Chani 13.8, Plt Count 263, MPV 9.0, Immature Gran % (Auto) 0.500, Neut % (Auto) 68.7, Lymph % (Auto) 17.7 L, [place] % (Auto) 10.5 H, Eos % (Auto) 1.7, Baso % (Auto) 0.9, Absolute Neuts (auto) 4.5, Absolute Lymphs (auto) 1.15, Nucleated RBC % 0 11/03/21 15:43: Sodium 138, Potassium 4.7, Chloride 103, Carbon Dioxide 27.0, Anion Gap 8, BUN 18, Creatinine 0.89, Estim Creat Clear Calc 49.15, Est GFR (MDRD) Af Amer 80, Est GFR (MDRD) Non-Af 66, BUN/Creatinine Ratio 20.3 H, Glucose 107 H, Calcium 8.6 11/03/21 15:50: Urine Color Yellow, Urine Clarity Sl. Cloudy, Urine pH 6.0, Ur Specific [place] 1.010, Urine Protein 30 H, Urine Glucose (UA) Normal, Urine Ketones Negative, Urine Occult Blood 250 H, Urine Nitrite Positive H, Urine Bilirubin 1 H, Urine Urobilinogen 4 H, Ur Leukocyte Esterase 500 H, Urine RBC > 100 SEEN, Urine WBC >100 SEEN, Ur Squamous Epith Cells 0-5 SEEN, Urine Bacteria 2+, Urine Mucus 0 SEEN Radiology Impression Abdomen/Pelvis CT 11/03/21 15:39 IMPRESSION: 1. Right ureteral stent with similar hydronephrosis. Fragmentation/decreased size of right nephrolithiasis with 2 small calculi in the dependent urinary bladder. Electronically Signed: Dillon Graham MD ([place]) at 16:44 EDT , Assessment & Plan Assessment/Plan (1) UTI (urinary tract infection): (2) Calculus of right kidney: (3) Pelvic pain: PLAN: PLAN: #UTI (complicated) in the setting of a right kidney stone with stent admit to med surg Continue morphine for severe pain which is patients main complaint Continue with Rocephin and vancomycin given previous cultures hydrate with IVF previous urine cultures grew E Coli and Enterococcus fecalis. get urine and blood cultures #History of right kidney stone s/p stent she had right renal extra corporal shockwave lithotripsy on September 04 2021; she already had a stent in situ then follows with urology on outpatient basis- consult placed. #History of DVT and PE: stable. on eliquis # Hyperlipidemia: on statin #Osteoarthritis: on [place] and tylenol DVT prophylaxis: already on eliquis Charges/Coding Visit Charges Inpatient E&M: 61848 Init Hosp L3
--- NOTE | 2021-11-03 21:40 | PCM.RX.CS ---
Consult Pharmacy has been consulted to manage selected antiobiotic: Vancomycin Type of Consult: New start Suspected Infection: Other Prior Doses of Antibiotics Received/Current Regimen: Medications Vancomycin HCl (Vancomycin) 1,000 mg in 200 mls @ 200 mls/hr IV Q12H ELVA Discontinued Medications Vancomycin HCl 2,000 mg/ (Sodium Chloride) 540 mls @ 250 mls/hr IV X1 ONE Stop: 11/03/21 19:45 Last Admin: 11/03/21 20:37 Dose: Infused Documented by: Labs: Sodium 138 mmol/L (136-145) 11/03/21 15:43 Potassium 4.7 mmol/L (3.5-5.1) 11/03/21 15:43 Chloride 103 mmol/L (98-107) 11/03/21 15:43 Carbon Dioxide 27.0 mmol/L (21.0-32.0) 11/03/21 15:43 Anion Gap 8 (5-15) 11/03/21 15:43 BUN 18 mg/dL (7-18) 11/03/21 15:43 Creatinine 0.89 mg/dL (0.55-1.02) 11/03/21 15:43 Est GFR (MDRD) Af Amer 80 mL/min (>60) 11/03/21 15:43 Est GFR (MDRD) Non-Af 66 mL/min (>60) 11/03/21 15:43 BUN/Creatinine Ratio 20.3 RATIO (10-20) H 11/03/21 15:43 Glucose 107 mg/dL (74-106) H 11/03/21 15:43 Weight used for dosin.8 kg Estimated Creatinine Clearance: 49 Goal Trough: 15-20 mcg/mL Pharmacy Plan for Drug Dosing: Pharmacy Service will continue to monitor and adjust dosing as required. Follow-Up Labs: Trough Vancomycin Labs to be done on [date and time ordered]: 11/05/21 @0600
[2021-11-03] MEDS: Nystatin Powder 15gm Bottle 1 APPLIC TOPICAL (21:54)
[2021-11-03] MEDS: HYDROcodone Bitartrate/Apap 5/325 Tablet PO (21:54)
[2021-11-03] MEDS: Mirabegron 50 MG TAB.ER.24H 100 MG PO (21:54)
[2021-11-03] MEDS: Pyridoxine HCl 100 MG Tablet 200 MG PO (21:55)
[2021-11-03] MEDS: APIXABAN 5 MG TABLET PO (21:55)
[2021-11-03] MEDS: Pravastatin 40 MG Tablet PO (21:55)
[2021-11-03] MEDS: Divalproex Sodium 250 MG Tablet 500 MG PO (21:55)
[2021-11-03] MEDS: Mag Hydrox/Al Hydrox/Simeth 30 ML UDC PO (23:02)
[2021-11-04] VITALS (11 sets, daily range): BP systolic 101–136; BP diastolic 48–60; PULSE 69–102; RESP 14–18; TEMP 36.6–37; O2SAT 93–100
[2021-11-04] MEDS: Acetaminophen 325 MG Tablet 650 MG PO ×3 (01:04→19:44)
[2021-11-04] MEDS: Ondansetron 8 MG Tablet PO ×2 (01:13→14:12)
[2021-11-04] MEDS: Vancomycin IV 1,000 MG/200 ML BAG 200 MG IV ×2 (05:45→17:48)
--- NOTE | 2021-11-04 07:24 | PN.HOSP_ITS ---
Subjective Subjective complains of chest pain. would like some mylanta. Objective Data Objective Data Vital Signs: Vital Signs Temp Pulse Resp BP Pulse Ox 37.0 C 69 18 125/48 H 93 11/04/21 02:06 11/04/21 07:00 11/04/21 02:06 11/04/21 02:06 11/04/21 02:06 Oxygen Flow Rate (L/min) 2 Oxygen Delivery Method Nasal Cannula Weight: 125.8 kg Body Mass Index (BMI) 46.1 Intake & Output: Intake and Output for Last 24 Hours 11/02/21 11/03/21 11/04/21 23:59 23:59 23:59 Intake Total 2310 / 2310 440 / 440 Output Total 1650 / 1650 250 / 250 Balance 660 / 660 190 / 190 Lab / Micro Data Result Diagrams: 11/03/21 15:43 11/03/21 15:43 Labs: Laboratory Results - last 24 hr 11/03/21 15:43: WBC 6.5, RBC 3.69 L, Hgb 11.2 L, Hct 35.5 L, MCV 96.2, MCH 30.4, MCHC 31.5 L, RDW Std Deviation 49.2 H, RDW Coeff of Chani 13.8, Plt Count 263, MPV 9.0, Immature Gran % (Auto) 0.500, Neut % (Auto) 68.7, Lymph % (Auto) 17.7 L, [place] % (Auto) 10.5 H, Eos % (Auto) 1.7, Baso % (Auto) 0.9, Absolute Neuts (auto) 4.5, Absolute Lymphs (auto) 1.15, Nucleated RBC % 0 11/03/21 15:43: Sodium 138, Potassium 4.7, Chloride 103, Carbon Dioxide 27.0, Anion Gap 8, BUN 18, Creatinine 0.89, Estim Creat Clear Calc 49.15, Est GFR (MDRD) Af Amer 80, Est GFR (MDRD) Non-Af 66, BUN/Creatinine Ratio 20.3 H, Glucose 107 H, Calcium 8.6 11/03/21 15:50: Urine Color Yellow, Urine Clarity Sl. Cloudy, Urine pH 6.0, Ur Specific [place] 1.010, Urine Protein 30 H, Urine Glucose (UA) Normal, Urine Ketones Negative, Urine Occult Blood 250 H, Urine Nitrite Positive H, Urine Bilirubin 1 H, Urine Urobilinogen 4 H, Ur Leukocyte Esterase 500 H, Urine RBC > 100 SEEN, Urine WBC >100 SEEN, Ur Squamous Epith Cells 0-5 SEEN, Urine Bacteria 2+, Urine Mucus 0 SEEN Radiography Diagnostic Testing: Radiology Impression Abdomen/Pelvis CT 11/03/21 15:39 IMPRESSION: 1. Right ureteral stent with similar hydronephrosis. Fragmentation/decreased size of right nephrolithiasis with 2 small calculi in the dependent urinary bladder. Electronically Signed: Dillon Graham MD ([place]) at 16:44 EDT , Physical Exam Const alert and no apparent distress Resp normal respiratory effort, no retractions, no use of accessory muscles and clear to auscultation bilaterally Cardio regular rate, regular rhythm, S1 normal heart sound and S2 normal heart sound GI normal to inspection, nondistended, normoactive bowel sounds, soft to palpation, non-tender and non-distended Extremity normal to inspection Neuro Sensorium / Orientation: awake and alert Assessment & Plan Assessment/Plan (1) UTI (urinary tract infection): (2) Hydronephrosis: PLAN: 1. UTI, recurrent * failed outpt treatment with amoxicillin * UCx performed 11/03, currenty pending. UCx from the showing GNR * on CTX and IV Vancomycin (Vanc given recent history of E. faecalis [VSE]) * follow up cultures and adjust abx accordingly 2. Hydronephrosis * appears improved on CT from 09/30/2021 * cancel consult for now. Likely with follow up with as outpt. 3. Bladder calculi * non-obstructive * no intervention required at present. 4. DM2 * per history * on no meds * monitor 5. H/O VTE * apixaban 6. VTE prophylaxis: * not indicated as pt already on anticoagulation. Charges/Coding Visit Charges Inpatient E&M: 00735 Subs Hosp L2
[2021-11-04] MEDS: Primidone 50 MG Tablet 100 MG PO ×3 (10:28→17:49)
[2021-11-04] MEDS: DULoxetine Hcl 30 MG Capsule 90 MG PO (10:29)
[2021-11-04] MEDS: Divalproex Sodium 250 MG Tablet 500 MG PO ×2 (10:30→21:14)
[2021-11-04] MEDS: Oxybutynin 5 MG Tablet PO (10:31)
[2021-11-04] MEDS: Fluticasone 0.05% 1 SPRAY NASAL.SRY 2 SPRAY NASAL (10:31)
[2021-11-04] MEDS: APIXABAN 5 MG TABLET PO ×2 (10:31→21:14)
[2021-11-04] MEDS: Nystatin Powder 15gm Bottle 1 APPLIC TOPICAL ×2 (10:31→19:48)
[2021-11-04] MEDS: Cholecalciferol (VIT D3) 25 MCG TABLET (1,000 UNITS) PO (10:39)
[2021-11-04] MEDS: Pantoprazole Sodium 40 MG Tablet PO (10:39)
[2021-11-04] MEDS: Ascorbic Acid 500 MG Tablet PO (10:39)
[2021-11-04] MEDS: buPROPion (XL) 150 MG TABLET.XL PO (10:39)
[2021-11-04] MEDS: Ferrous Sulfate 325 MG Tablet PO (10:40)
[2021-11-04] MEDS: Ceftriaxone 1 GM/50 ML BAG IV (10:56)
[2021-11-04] MEDS: Mag Hydrox/Al Hydrox/Simeth 30 ML UDC PO (12:11)
[2021-11-04] MEDS: HYDROcodone Bitartrate/Apap 5/325 Tablet PO (14:14)
[2021-11-04] MEDS: 0.9% Saline Lock 10 ML Syringe IV (19:45)
[2021-11-04] MEDS: Pravastatin 40 MG Tablet PO (21:14)
[2021-11-04] MEDS: Mirabegron 50 MG TAB.ER.24H 100 MG PO (21:14)
[2021-11-05] MEDS: HYDROcodone Bitartrate/Apap 5/325 Tablet PO (02:15)
[2021-11-05 02:25] VITALS: BP 98/63; PULSE 82; RESP 18; TEMP 36.8; O2SAT 96
[2021-11-05 03:51] VITALS: PULSE 85
[2021-11-05] MEDS: Acetaminophen 325 MG Tablet 650 MG PO ×2 (05:31→11:10)
[2021-11-05] MEDS: Vancomycin IV 1,000 MG/200 ML BAG 200 MG IV (06:20)
--- NOTE | 2021-11-05 07:21 | PN.HOSP_ITS ---
Subjective Subjective Had some intermittent suprapubic abdominal pain. Has been getting up on her own without difficulty. Objective Data Objective Data Vital Signs: Vital Signs Temp Pulse Resp BP Pulse Ox 36.8 C 85 18 98/63 96 11/05/21 02:25 11/05/21 03:51 11/05/21 02:25 11/05/21 02:25 11/05/21 02:25 Oxygen Flow Rate (L/min) 2 Oxygen Delivery Method Room Air Weight: 125.8 kg Body Mass Index (BMI) 46.1 Intake & Output: Intake and Output for Last 24 Hours 11/03/21 11/04/21 11/05/21 23:59 23:59 23:59 Intake Total 2310 / 2310 810 / 810 120 / 120 Output Total 1650 / 1650 250 / 250 Balance 660 / 660 560 / 560 120 / 120 Lab / Micro Data Result Diagrams: 11/03/21 15:43 11/03/21 15:43 Labs: Laboratory Results - last 24 hr 11/05/21 06:18: Vancomycin Trough 18.0 H Micro: Microbiology 11/03/21 15:50 Urine Catheter - Catheter Urine Culture - Preliminary GNR lactose round up ring hand Physical Exam Const alert and no apparent distress Resp normal respiratory effort, no retractions, no use of accessory muscles and clear to auscultation bilaterally Cardio regular rate, regular rhythm, S1 normal heart sound and S2 normal heart sound GI normal to inspection, nondistended, normoactive bowel sounds, soft to palpation, non-tender and non-distended Extremity normal to inspection Assessment & Plan Assessment/Plan (1) UTI (urinary tract infection): (2) Hydronephrosis: PLAN: 1. UTI, recurrent * Klebsiella, sensitive to FQN, cefazolin, cefepime, Ertapeim, Gent, Imipenem, [place], Bactrim. * failed outpt treatment with amoxicillin * UCx performed 11/03, currenty pending. UCx from the showing GNR * on CTX and IV Vancomycin (Vanc given recent history of E. faecalis [VSE]) * DC with Bactrim for 5 days. 2. Hydronephrosis * appears improved on CT from 09/30/2021 * cancel consult for now. Likely with follow up with as outpt. 3. Bladder calculi * non-obstructive * no intervention required at present. 4. DM2 * per history * on no meds * monitor 5. H/O VTE * apixaban 6. VTE prophylaxis: * not indicated as pt already on anticoagulation. DC home.
--- NOTE | 2021-11-05 07:28 | PHA.PHARE_ITS ---
Consult Pharmacy has been consulted to manage selected antiobiotic: Vancomycin Type of Consult: Follow-up Prior Doses of Antibiotics Received/Current Regimen: On 1gm iv q12h. Labs: Vancomycin Trough 18.0 ug/mL (5.0-15.0) H 11/05/21 06:18 Microbiology: Microbiology 11/03/21 15:50 Urine Catheter - Catheter Urine Culture - Preliminary GNR lactose kids activities coach Weight used for dosin.8 kg Estimated Creatinine Clearance: 49ml/min Goal Trough: 15-20 mcg/mL Pharmacy Plan for Drug Dosing: Today's trough was 18.0 and in desired therapeutic range of 15-20mcg/ml. Will continue same dose and repeat trough level before another 4th dose. Pharmacy Service will continue to monitor and adjust dosing as required. Follow-Up Labs: Trough Vancomycin - 5.17.22 @1730 before 1800 dose
[2021-11-05 07:35] VITALS: O2SAT 92
[2021-11-05] MEDS: Primidone 50 MG Tablet 100 MG PO ×2 (08:04→11:05)
[2021-11-05 08:14] VITALS: PULSE 70
[2021-11-05 08:25] VITALS: BP 107/53; PULSE 76; RESP 18; TEMP 36.7; O2SAT 97
[2021-11-05] MEDS: Divalproex Sodium 250 MG Tablet 500 MG PO (09:00)
[2021-11-05] MEDS: Cholecalciferol (VIT D3) 25 MCG TABLET (1,000 UNITS) PO (09:00)
[2021-11-05] MEDS: buPROPion (XL) 150 MG TABLET.XL PO (09:00)
[2021-11-05] MEDS: Oxybutynin 5 MG Tablet PO (09:00)
[2021-11-05] MEDS: Nystatin Powder 15gm Bottle 1 APPLIC TOPICAL (09:00)
[2021-11-05] MEDS: Ascorbic Acid 500 MG Tablet PO (09:00)
[2021-11-05] MEDS: DULoxetine Hcl 30 MG Capsule 90 MG PO (09:01)
[2021-11-05] MEDS: APIXABAN 5 MG TABLET PO (09:01)
[2021-11-05] MEDS: Fluticasone 0.05% 1 SPRAY NASAL.SRY 2 SPRAY NASAL (09:02)
[2021-11-05] MEDS: Ceftriaxone 1 GM/50 ML BAG IV (09:40)
[2021-11-05] MEDS: Pantoprazole Sodium 40 MG Tablet PO (09:40)
--- NOTE | 2021-11-05 11:00 | PCM.DC ---
Discharge Instructions Diet Discharge Diet: No restrictions Activity Discharge Activity: Return to Normal Activity Dressing / Incision Call your doctor if your incision/area has: Continuous Slow Oozing Call your doctor if you observe: Fever of 101 or Higher Follow Up Care Test Results: Test results from this visit will be discussed in further detail at your follow-up appointment, if applicable. Discharge Plan Admission Admit Date/Time: 11/03/21 20:10 Primary Reason for Your Visit: UTI Attending Provider: Teofilo Suárez Primary Care Provider: Gonzales Pinto Discharge Orders/Prescriptions Prescriptions: New sulfamethoxazole-trimethoprim [Bactrim DS] 800-160 mg tablet 1 tab PO BID Qty: 10 RF: 0 Continued cholecalciferol (vitamin D3) [Vitamin D3] 1,000 UNIT tablet 1,000 unit PO DAILY RF: 0 duloxetine 60 MG capsule 90 mg PO DAILY RF: 0 pravastatin 40 MG tablet 40 mg PO QHS RF: 0 primidone 50 MG tablet 100 mg PO TID RF: 0 fluticasone propionate 1 SPRAY spray,suspension 2 spray NASAL DAILY RF: 0 simethicone 80 MG tablet 80 mg PO TIDCM RF: 0 mirabegron 50 MG tablet extended release 24 hr 100 mg PO QHS RF: 0 bupropion HCl 150 MG tablet extended release 24 hr 150 mg PO DAILY RF: 0 alum-mag hydroxide-simeth 355 ML suspension 30 ml PO Q4H PRN PRN (Reason: GI DISTRESS) RF: 0 albuterol sulfate 2.5 MG/3 ML solution for nebulization 2.5 mg INHALATION Q2H PRN PRN (Reason: Dyspnea, wheezing) RF: 0 ascorbic acid (vitamin C) 500 MG tablet 500 mg PO DAILY RF: 0 cyanocobalamin (vitamin B-12) 1,000 mcg/mL Solution 1,000 mcg IM QMONTH RF: 0 ferrous sulfate 325 mg (65 mg iron) Tablet 325 mg PO DAILY RF: 0 omeprazole 40 mg capsule,delayed release(DR/EC) 40 mg PO DAILY RF: 0 Probiotic 1 cap PO/SL DAILY RF: 0 nystatin 100,000 unit/gram Powder 1 applic TOPICAL TID RF: 0 acetaminophen [Tylenol] 325 mg Tablet 650 mg PO Q6H PRN PRN (Reason: Pain Score 1-10/Temp > 100.7 F) Qty: 1 RF: 0 furosemide 20 mg Tablet 60 mg PO DAILY Qty: 0 RF: 0 oxybutynin chloride 5 mg Tablet 5 mg PO DAILY RF: 0 ondansetron HCl 8 MG tablet 8 mg PO Q8H PRN PRN (Reason: Nausea) 7 Days Qty: 20 RF: 0 phenazopyridine [Pyridium] 200 MG tablet 200 mg PO TID PRN PRN (Reason: Bladder Spasms) 7 Days Qty: 30 RF: 0 divalproex [Depakote] 500 mg Tablet,Delayed Release (Dr/Ec) 500 mg PO BID RF: 0 Eliquis 5 mg Tablet 5 mg PO BID RF: 0 guaifenesin 10 ml PO/SL Q4H PRN PRN (Reason: Cough) RF: 0 halobetasol propionate 0.05 % cream TOPICAL RF: 0 Discontinued hydrocodone-acetaminophen 5-325 mg tablet 1 tab PO Q12H PRN PRN (Reason: Pain) RF: 0 amoxicillin 500 mg Capsule 500 mg PO TID RF: 0 Referrals / Follow Up: Gonzales Pinto MD [Primary Care Provider] - Within 2 Weeks Alejandra Villavicencio MD [STAFF PHYSICIAN] - Within 2 Weeks Disposition Disposition (needs filled in before D/C Order can be placed): Home, Self Care
[2021-11-05] MEDS: Ferrous Sulfate 325 MG Tablet PO (11:05)
--- NOTE | 2021-11-05 11:06 | PCM.DC.SUM ---
Providers Date of Admission: 11/03/21 Primary Care Physician: Dr. Gonzales Pinto MD Reason For Visit: COMPLICATED UTI Diagnosis Discharge Diagnosis (1) UTI (urinary tract infection): Status: Acute Code(s): N39.0 - Urinary tract infection, site not specified (2) Hydronephrosis: Status: Acute Code(s): N13.30 - Unspecified hydronephrosis Medications at Discharge Home Medications cholecalciferol (vitamin D3) [Vitamin D3] 1,000 unit PO DAILY 12/29/15 duloxetine 90 mg PO DAILY 12/29/15 pravastatin 40 mg PO QHS 08/05/18 fluticasone propionate 2 spray NASAL DAILY 03/18/19 primidone 100 mg PO TID 03/18/19 simethicone 80 mg PO TIDCM 03/18/19 mirabegron 100 mg PO QHS 01/24/20 bupropion HCl 150 mg PO DAILY 08/09/20 alum-mag hydroxide-simeth 30 ml PO Q4H PRN PRN 08/20/20 albuterol sulfate 2.5 mg INHALATION Q2H PRN PRN vial.neb. 08/22/20 ascorbic acid (vitamin C) 500 mg PO DAILY 09/28/20 cyanocobalamin (vitamin B-12) 1,000 mcg IM QMONTH 10/23/20 ferrous sulfate 325 mg PO DAILY 10/23/20 Probiotic 1 cap PO/SL DAILY 07/24/21 omeprazole 40 mg PO DAILY 07/24/21 nystatin 1 applic TOPICAL TID 07/30/21 acetaminophen [Tylenol] 650 mg PO Q6H PRN PRN #1 tab 08/14/21 furosemide 60 mg PO DAILY #0 tab 08/14/21 oxybutynin chloride 5 mg PO DAILY 09/03/21 ondansetron HCl 8 mg PO Q8H PRN PRN 7 Days #20 tablet 09/04/21 phenazopyridine [Pyridium] 200 mg PO TID PRN PRN 7 Days #30 tab 09/04/21 Eliquis 5 mg PO BID 09/30/21 divalproex [Depakote] 500 mg PO BID 09/30/21 guaifenesin 10 ml PO/SL Q4H PRN PRN 09/30/21 halobetasol propionate applic TOPICAL 11/03/21 sulfamethoxazole-trimethoprim [Bactrim DS] 1 tab PO BID #10 tab 11/05/21 Hospital Course Operations None Procedures None Summary of Care Provided Minutes Spent on Discharge: 32 Hospital Course: 1. UTI, recurrent Klebsiella, sensitive to FQN, cefazolin, cefepime, Ertapeim, Gent, Imipenem, Kosta, Bactrim. failed outpt treatment with amoxicillin UCx performed 11/03, currenty pending. UCx from the showing GNR on CTX and IV Vancomycin (Vanc given recent history of E. faecalis [VSE]) DC with Bactrim for 5 days. 2. Hydronephrosis appears improved on CT from 09/30/2021 cancel consult for now. Likely with follow up with as outpt. 3. Bladder calculi non-obstructive no intervention required at present. 4. DM2 per history on no meds monitor 5. 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 D/C Instructions Discharge Diet: No restrictions Call your doctor if your incision/area has: Continuous Slow Oozing Call your doctor if you observe: Fever of 101 or Higher Meaningful Use Info Meaningful Use Diagnoses (Choose all that apply): None applicable Discharge Plan Admission Admit Date/Time: 11/03/21 20:10 Primary Reason for Your Visit: UTI Attending Provider: Teofilo Suárez Primary Care Provider: Gonzales Pinto Discharge Orders/Prescriptions Prescriptions: New sulfamethoxazole-trimethoprim [Bactrim DS] 800-160 mg tablet 1 tab PO BID Qty: 10 RF: 0 Continued cholecalciferol (vitamin D3) [Vitamin D3] 1,000 UNIT tablet 1,000 unit PO DAILY RF: 0 duloxetine 60 MG capsule 90 mg PO DAILY RF: 0 pravastatin 40 MG tablet 40 mg PO QHS RF: 0 primidone 50 MG tablet 100 mg PO TID RF: 0 fluticasone propionate 1 SPRAY spray,suspension 2 spray NASAL DAILY RF: 0 simethicone 80 MG tablet 80 mg PO TIDCM RF: 0 mirabegron 50 MG tablet extended release 24 hr 100 mg PO QHS RF: 0 bupropion HCl 150 MG tablet extended release 24 hr 150 mg PO DAILY RF: 0 alum-mag hydroxide-simeth 355 ML suspension 30 ml PO Q4H PRN PRN (Reason: GI DISTRESS) RF: 0 albuterol sulfate 2.5 MG/3 ML solution for nebulization 2.5 mg INHALATION Q2H PRN PRN (Reason: Dyspnea, wheezing) RF: 0 ascorbic acid (vitamin C) 500 MG tablet 500 mg PO DAILY RF: 0 cyanocobalamin (vitamin B-12) 1,000 mcg/mL Solution 1,000 mcg IM QMONTH RF: 0 ferrous sulfate 325 mg (65 mg iron) Tablet 325 mg PO DAILY RF: 0 omeprazole 40 mg capsule,delayed release(DR/EC) 40 mg PO DAILY RF: 0 Probiotic 1 cap PO/SL DAILY RF: 0 nystatin 100,000 unit/gram Powder 1 applic TOPICAL TID RF: 0 acetaminophen [Tylenol] 325 mg Tablet 650 mg PO Q6H PRN PRN (Reason: Pain Score 1-10/Temp > 100.7 F) Qty: 1 RF: 0 furosemide 20 mg Tablet 60 mg PO DAILY Qty: 0 RF: 0 oxybutynin chloride 5 mg Tablet 5 mg PO DAILY RF: 0 ondansetron HCl 8 MG tablet 8 mg PO Q8H PRN PRN (Reason: Nausea) 7 Days Qty: 20 RF: 0 phenazopyridine [Pyridium] 200 MG tablet 200 mg PO TID PRN PRN (Reason: Bladder Spasms) 7 Days Qty: 30 RF: 0 divalproex [Depakote] 500 mg Tablet,Delayed Release (Dr/Ec) 500 mg PO BID RF: 0 Eliquis 5 mg Tablet 5 mg PO BID RF: 0 guaifenesin 10 ml PO/SL Q4H PRN PRN (Reason: Cough) RF: 0 halobetasol propionate 0.05 % cream TOPICAL RF: 0 Discontinued hydrocodone-acetaminophen 5-325 mg tablet 1 tab PO Q12H PRN PRN (Reason: Pain) RF: 0 amoxicillin 500 mg Capsule 500 mg PO TID RF: 0 Referrals / Follow Up: Gonzales Pinto MD [Primary Care Provider] - Within 2 Weeks Alejandra Villavicencio MD [STAFF PHYSICIAN] - Within 2 Weeks Disposition Disposition (needs filled in before D/C Order can be placed): Home, Self Care Charges/Coding Visit Charges Inpatient E&M: 83249 Disch Hosp
--- NOTE | 2021-11-05 11:20 | CASEMGMT ---
BETTY CROFT called admission at [facility] and spoke with Sherry. Per Sherry patient was at [facility] and can return when medically ready. RN LANG called Wallace at [facility] and updated regarding planned discharge for today. Per Wallace, [facility] provides transportation. RN LANG faxed discharge instructions and summary to Wallace at [facility]. RN LANG called and left message for jelani Lynne. CM will continue to assist with discharge. RN LANG updated [facility].
[2021-11-05 11:43] LABS: Anion Gap 9 (5-15); BUN 14 mg/dL (7-18); BUN/Creat Ratio 17.3 RATIO (10-20); Chloride 105 mmol/L (98-107); Creatinine, Serum 0.81 mg/dL (0.55-1.02); EST Glomerular Filtration Rate 73 mL/min (>60); Est Glom Filt Rate - Afr Amer 89 mL/min (>60); Glucose 102 mg/dL (74-106); Potassium 4.3 mmol/L (3.5-5.1); Sodium Level 139 mmol/L (136-145)
--- NOTE | 2021-11-05 12:00 | CASEMGMT ---
RN LANG received call back from [facility]. RN LANG discuss discharge plan for patient to return to [facility] today. RN LANG inquired if [facility] will be providing transportation. Per [facility], [place] usually provides transportation. BETTY CROFT called Wallace at [facility] to inquire about transportation. Per Wallace, their bus is in for inspection and they are not able to provide transport. RN LANG updated [facility].
[2021-11-05] MEDS: Ondansetron 8 MG Tablet PO (12:18)
--- NOTE | 2021-11-05 12:23 | CASEMGMT ---
Social Work Transportation arranged with [facility] for [address] flower picker by wheelchair van. Pt bedside nurse updated. MEG Rubio
[2021-11-05 12:30] VITALS: BP 107/53; PULSE 76; RESP 18; TEMP 36.7; O2SAT 97
--- NOTE | 2021-11-05 14:13 | CASEMGMT ---
BETTY CM called and updated daughter Sandra regarding transport setup for patient to return to [facility].
== END 2021-11-05 13:20 | disposition home or self-care (01) | DRG 690 ==
LOC: ED 15:39 → MS3 18:27
PROVIDERS: Physician Assistant; Admitting Provider Hospitalist; Emergency Provider Emergency Medicine; PCP Family Medicine
DX: N13.6 Pyonephrosis (principal); E11.40 Type 2 diabetes mellitus with diabetic neuropathy, unspecified; E78.5 Hyperlipidemia, unspecified; G47.33 Obstructive sleep apnea (adult) (pediatric); M19.90 Unspecified osteoarthritis, unspecified site; K21.9 Gastro-esophageal reflux disease without esophagitis; Z79.01 Long term (current) use of anticoagulants; Z87.442 Personal history of urinary calculi; N21.0 Calculus in bladder; Z90.49 Acquired absence of other specified parts of digestive tract
CPT/HCPCS: 36415; 74176; 80048; 80202; 81001; 85025; 87040; 87077; 87086; 87088; 87186; 99285; J7030; J7040; P9612; A4216; J2405

== ENCOUNTER 2021-11-07 14:40 | Emergency (ER) | payer MEDICARE, MEDICAID, SELFPAY ==
[2021-11-07 14:41] VITALS: BP 150/101; PULSE 87; RESP 18; TEMP 36.6; O2SAT 96; BMI 46.0
--- NOTE | 2021-11-07 15:11 | EDS_ITS ---
HPI History of Present Illness Chief Complaint: Abd Pain Informant: patient Narrative Narrative: Patient's from nursing facility. She is DNR comfort care only. She comes back in with exacerbation of suprapubic pain. This patient was diagnosed with kidney stones about 2 months ago. 1 passed at the lithotripsy. She evidently has 1 in the bladder. There is been a stent in for almost 2 months. She has intermittent pain from the stents or possibly from UTI's. She has some mild frequency but this is not new. She was just in the hospital. She was discharged home. Antibiotics looks like they were switched from Bactrim to Keflex but her Klebsiella was sensitive to Keflex and her recent E. coli was also sensitive. Patient only has Tylenol on her med list at the nursing facility for pain. They sent her in here for exacerbation of pain but she really has no options. She states she did see pain management and she thinks they prescribed Wilmerding but she does not yet have it. It is also not on her med list. [facility] Medical History Anxiety and depression Arthritis Back pain Bladder disease Carpal tunnel syndrome Cataracts, both eyes Chronic anticoagulation Chronic neuropathic pain Chronic pain following surgery or procedure Chronic UTI Closed left arm fracture Cystitis Depression Diabetes Diabetic neuropathy associated with type 2 diabetes mellitus DM II (diabetes mellitus, type II), controlled Facet arthropathy, lumbar FHx: cholecystectomy GERD (gastroesophageal reflux disease) GERD (gastroesophageal reflux disease) GI bleed Hematoma Hiatal hernia High cholesterol History of DVT (deep vein thrombosis) History of edema History of gallstones History of pain when walking History of stress test HLD (hyperlipidemia) Hx of peripheral neuropathy 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 Injury of head and neck Kidney stones Low iron Morbid obesity with BMI of 45.0-49.9, adult Neuropathy Non-smoker Non-smoker Normocytic anemia ROXIE (obstructive sleep apnea) Osteoarthritis Polycystic ovaries Pulmonary embolism Restless legs Segmental and somatic dysfunction of cervical region Segmental and somatic dysfunction of lumbar region Segmental and somatic dysfunction of pelvic region Segmental and somatic dysfunction of thoracic region Shortness of breath on exertion Uses wheelchair Walker as ambulation aid Wears dentures Wears hearing aid Home Medications cholecalciferol (vitamin D3) [Vitamin D3] 1,000 unit PO DAILY 12/29/15 [History Last Taken 07/24/21] duloxetine 90 mg PO DAILY 12/29/15 [History Last Taken 07/24/21] pravastatin 40 mg PO QHS 08/05/18 [History Last Taken 07/23/21] fluticasone propionate 2 spray NASAL DAILY 03/18/19 [History Last Taken 07/24/21] primidone 100 mg PO TID 03/18/19 [History Last Taken 07/24/21 12:00] simethicone 80 mg PO TIDCM 03/18/19 [History Last Taken 07/24/21 12:00] mirabegron 100 mg PO QHS 01/24/20 [History Last Taken 07/23/21] bupropion HCl 150 mg PO DAILY 08/09/20 [History Last Taken 07/24/21] alum-mag hydroxide-simeth 30 ml PO Q4H PRN PRN 08/20/20 [History Last Taken 10/22/20] albuterol sulfate 2.5 mg INHALATION Q2H PRN PRN vial.neb. 08/22/20 [Rx Last Taken Unknown] ascorbic acid (vitamin C) 500 mg PO DAILY 09/28/20 [History Last Taken 07/24/21] cyanocobalamin (vitamin B-12) 1,000 mcg IM QMONTH 10/23/20 [History Last Taken 08/24/21] ferrous sulfate 325 mg PO DAILY 10/23/20 [History Last Taken 07/24/21] Probiotic 1 cap PO/SL DAILY 07/24/21 [History Last Taken 07/23/21] omeprazole 40 mg PO DAILY 07/24/21 [History Last Taken 07/24/21] nystatin 1 applic TOPICAL TID 07/30/21 [History Last Taken Unknown] acetaminophen [Tylenol] 650 mg PO Q6H PRN PRN #1 tab 08/14/21 [Rx Last Taken Unknown] furosemide 60 mg PO DAILY #0 tab 08/14/21 [Rx Last Taken Unknown] oxybutynin chloride 5 mg PO DAILY 09/03/21 [History Last Taken Unknown] ondansetron HCl 8 mg PO Q8H PRN PRN 7 Days #20 tablet 09/04/21 [Rx Last Taken Unknown] phenazopyridine [Pyridium] 200 mg PO TID PRN PRN 7 Days #30 tab 09/04/21 [Rx Last Taken Unknown] Eliquis 5 mg PO BID 09/30/21 [History Last Taken Unknown] divalproex [Depakote] 500 mg PO BID 09/30/21 [History Last Taken Unknown] guaifenesin 10 ml PO/SL Q4H PRN PRN 09/30/21 [History Last Taken Unknown] halobetasol propionate applic TOPICAL 11/03/21 [History Last Taken Unknown] sulfamethoxazole-trimethoprim [Bactrim DS] 1 tab PO BID #10 tab 11/05/21 [Rx Last Taken Unknown] Allergy/AdvReac Type Severity Reaction Status Date / Time ampicillin [From Unasyn] Allergy Severe Blisters Verified 11/03/21 15:33 on tongue /throat difficulty breathing sore tongue/ warfarin sodium Allergy Severe Low red Verified 11/03/21 15:33 [From Coumadin] blood cells Family History Father Colon cancer Hypertension Mother Hypertension Surgical History H/O cardiac catheterization History of carpal tunnel surgery History of cholecystectomy History of cystoscopy History of embolic filter insertion History of embolic filter insertion History of gastric bypass History of hysterectomy Hx of cystoscopy S/P hysterectomy Total knee replacement status Social History Smoking Status: Never smoker alcohol intake: current alcohol intake frequency: holidays/special occasions only substance use type: does not use what type of physical activity do you participate in: walking and aerobics frequency: 1-2 times per week ROS ROS ED Constitutional Constitutional ED: Denies chills or fever(s) ENT ENT ED: Denies rhinorrhea Cardiovascular Cardiovascular: Denies chest pain or palpitations Respiratory/Chest Respiratory/Chest: Denies dyspnea Gastrointestinal Gastrointestinal: Reports abdominal pain; Denies diarrhea, nausea or vomiting Genitourinary Genitourinary ED: Reports urinary frequency; Denies dysuria or hematuria Musculoskeletal Musculoskeletal: Denies back pain or myalgias Integumentary Denies rash Neurologic Neurologic: Denies headache(s) Psychiatric Psychiatric: Reports anxiety Endocrine Endocrinology: Denies polydipsia or polyuria Allergic/Immunologic Allergic/Immunologic ED: Denies urticaria EXAM Physical Exam Const Vital Signs: 11/07/21 14:41 11/07/21 16:25 Temperature 98 F Temperature Source Oral Pulse Rate 87 86 Respiratory Rate 18 16 Blood Pressure 150/101 H 143/71 H Blood Pressure Mean 117 95 Pulse Ox 96 95 Oxygen Delivery Method Room Air Room Air Positive well nourished, well developed and obese General Appearance ED: well developed and NAD Nutritional Appearance: obese HEENT Reports moist mucous membranes Eyes General Eye ED: Negative for pale conjunctiva or scleral icterus Neck no JVD Chest Wall inspection of chest normal Resp normal respiratory effort Cardio regular rate GI normal to inspection, nondistended, normoactive bowel sounds and non-tender GI Narrative: Despite complaining suprapubic lower abdominal pain there is no tenderness at all on exam. Palpation: soft Back/Spine no CVA tenderness Extremity normal to inspection General Extremety ED: Negative for tenderness Neuro Sensorium / Orientation: alert Psych mental status grossly normal Psych Narrative: Patient is tearful. She feels that people do not care about her pain and her illness. I explained that we will try to help her. She is thankful Mood & Affect: tearful Skin no rashes or lesions noted MDM MDM MDM Narrative Medical decision making narrative: Patient's urine was is cloudy and shows some red cells but there is no white cells now this is improvement. She does not have an elevated white count. Electrolytes are overall unremarkable. Patient evidently [facility] Wilmerding [facility] but it was not yet available so they sent her in here for pain control. I do not think she needs to be admitted at this time. I think she is okay to get back home now that they have her pain meds. She is set to have the stent out on Friday. Family member had called in concerning about narcotic use with her. Nurse was going to contact hospital protective services social worker but we do not have social work down here at this time. However, this patient is 76, DNR comfort care with a stent and kidney stone. I am also concerned about narcotic use but I think we need to get her through this issue first. Lab Data Attestation: I reviewed the patient's lab results. Labs: Laboratory Results - last 24 hr 11/07/21 11/07/21 11/07/21 16:20 17:08 17:08 WBC 3.9 L RBC 3.70 L Hgb 11.2 L Hct 35.7 L MCV 96.5 MCH 30.3 MCHC 31.4 L RDW Std Deviation 48.8 H RDW Coeff of Chani 13.8 Plt Count 267 MPV 9.4 Immature Gran % (Auto) 0.500 Neut % (Auto) 52.5 Lymph % (Auto) 31.7 [place] % (Auto) 11.4 H Eos % (Auto) 2.9 Baso % (Auto) 1.0 Absolute Neuts (auto) 2.0 Absolute Lymphs (auto) 1.22 Nucleated RBC % 0 Sodium 136 Potassium 4.6 Chloride 105 Carbon Dioxide 27.0 Anion Gap 4 L BUN 14 Creatinine 0.90 Estim Creat Clear Calc 48.60 Est GFR (MDRD) Af Amer 79 Est GFR (MDRD) Non-Af 65 BUN/Creatinine Ratio 15.6 Glucose 92 Calcium 8.5 Urine Color Yellow Urine Clarity Sl. Cloudy Urine pH 6.5 Ur Specific [place] 1.010 Urine Protein 30 H Urine Glucose (UA) Normal Urine Ketones Negative Urine Occult Blood 250 H Urine Nitrite Positive H Urine Bilirubin Negative Urine Urobilinogen 1 H Ur Leukocyte Esterase 100 H Urine RBC 50-100 SEEN Urine WBC 0-5 SEEN Ur Squamous Epith Cells 0-5 SEEN Urine Bacteria 1+ Urine Mucus 1+ Discharge Plan Triage Chief Complaint: Abd Pain ED Provider: Bandar Camilo Dx/Rx/DC Orders Clinical Impression: Pain due to ureteral stent, UTI (urinary tract infection) Instructions: ED CYSTITIS Female Adult Prescriptions: No Action cholecalciferol (vitamin D3) [Vitamin D3] 1,000 UNIT tablet 1,000 unit PO DAILY RF: 0 duloxetine 60 MG capsule 90 mg PO DAILY RF: 0 pravastatin 40 MG tablet 40 mg PO QHS RF: 0 primidone 50 MG tablet 100 mg PO TID RF: 0 fluticasone propionate 1 SPRAY spray,suspension 2 spray NASAL DAILY RF: 0 simethicone 80 MG tablet 80 mg PO TIDCM RF: 0 mirabegron 50 MG tablet extended release 24 hr 100 mg PO QHS RF: 0 bupropion HCl 150 MG tablet extended release 24 hr 150 mg PO DAILY RF: 0 alum-mag hydroxide-simeth 355 ML suspension 30 ml PO Q4H PRN PRN (Reason: GI DISTRESS) RF: 0 albuterol sulfate 2.5 MG/3 ML solution for nebulization 2.5 mg INHALATION Q2H PRN PRN (Reason: Dyspnea, wheezing) RF: 0 ascorbic acid (vitamin C) 500 MG tablet 500 mg PO DAILY RF: 0 cyanocobalamin (vitamin B-12) 1,000 mcg/mL Solution 1,000 mcg IM QMONTH RF: 0 ferrous sulfate 325 mg (65 mg iron) Tablet 325 mg PO DAILY RF: 0 omeprazole 40 mg capsule,delayed release(DR/EC) 40 mg PO DAILY RF: 0 Probiotic 1 cap PO/SL DAILY RF: 0 nystatin 100,000 unit/gram Powder 1 applic TOPICAL TID RF: 0 acetaminophen [Tylenol] 325 mg Tablet 650 mg PO Q6H PRN PRN (Reason: Pain Score 1-10/Temp > 100.7 F) Qty: 1 RF: 0 furosemide 20 mg Tablet 60 mg PO DAILY Qty: 0 RF: 0 oxybutynin chloride 5 mg Tablet 5 mg PO DAILY RF: 0 ondansetron HCl 8 MG tablet 8 mg PO Q8H PRN PRN (Reason: Nausea) 7 Days Qty: 20 RF: 0 phenazopyridine [Pyridium] 200 MG tablet 200 mg PO TID PRN PRN (Reason: Bladder Spasms) 7 Days Qty: 30 RF: 0 divalproex [Depakote] 500 mg Tablet,Delayed Release (Dr/Ec) 500 mg PO BID RF: 0 Eliquis 5 mg Tablet 5 mg PO BID RF: 0 guaifenesin 10 ml PO/SL Q4H PRN PRN (Reason: Cough) RF: 0 halobetasol propionate 0.05 % cream TOPICAL RF: 0 sulfamethoxazole-trimethoprim [Bactrim DS] 800-160 mg tablet 1 tab PO BID Qty: 10 RF: 0 Primary Care Provider: Gonzales Pinto Referrals: Gonzales Pinto MD [Primary Care Provider] - As Needed Alejandra Villavicencio MD [STAFF PHYSICIAN] - Keep Bonnie appointment Disposition Disposition: [facility] Care Facility
[2021-11-07] MEDS: Morphine 4 MG/ML Syringe IV (16:12)
[2021-11-07] MEDS: Ceftriaxone 1 GM/50 ML BAG IV (16:12)
[2021-11-07] MEDS: Ondansetron 4 MG/2 ML Vial IV (16:12)
[2021-11-07 16:25] VITALS: BP 143/71; PULSE 86; RESP 16; O2SAT 95
[2021-11-07 16:33] LABS: Color, Urine Yellow (Yellow); Glucose, Dipstick Normal (Normal); Ketone-Dipstick Negative (Negative); Leukocyte Esterase-Dipstick 100 /ul (Negative); Nitrite-Dipstick Positive (Negative); Occult Blood-Urine 250 /ul (Negative); Protein-Dipstick 30 mg/dl (Negative); Urine Bilirubin Dipstick Negative (Negative); Urine Clarity Sl. Cloudy (Clear); Urine Urobilinogen 1 mg/dl (Normal); Urine pH 6.5 (5.0 - 8.0)
--- NOTE | 2021-11-07 16:33 | ED.RN ---
THIS RN ANSWERED PHONE CALL FROM PT STACEYTHER AND JAMES BLANTON. PER DAMON, FAMILY IS CONCERENED THAT PT IS ADDICTED TO [facility]. [facility] AND PRIMARY RN AMANDO INFORMED OF CONCERN.
[2021-11-07 17:06] LABS: Bacteria 1+ /hpf (None Seen); Mucous, Urine 1+ /hpf (<or=2+); Red Blood Cells-Urine 50-100 SEEN /hpf (0-5); Squamous Epithelial Cells - UA 0-5 SEEN /hpf (5-10); White Blood Cells 0-5 SEEN /hpf (0-5)
[2021-11-07] MEDS: HYDROcodone Bitartrate/Apap 5/325 Tablet PO (17:32)
[2021-11-07 17:57] LABS: Absolute Lymphocyte Count 1.22 X10^3/uL (0.83-4.51); Basophil# 0.04 X10^3/uL; Eosinophil# 0.11 X10^3/uL; Eosinophils% 2.9 % (0-5); Hematocrit 35.7 % (37-47); Hemoglobin 11.2 g/dL (12.0-15.0); Lymphocyte # 1.22 X10^3/ul (0.83-4.51); Lymphocyte % 31.7 % (19-41); Mean Corp Hgb Conc 31.4 g/dL (32-36); Mean Corpuscular Hgb 30.3 pg (27.0-32.0); Mean Corpuscular Volume 96.5 fL (81-99); Mean Platelet Vol. 9.4 fl (6.2-12.0); Monocyte# 0.44 X10^3/uL; Monocyte% 11.4 % (0-10); NRBC Flagged by Analyzer 0 % (0-5); Neutrophil # 2.02 X10^3/uL (2.7-7.7); Neutrophil % 52.5 % (47-70); Platelet Count 267 K/mm3 (150-450); RBC Distribution Width CV 13.8 % (11.6-14.6); RBC Distribution Width SD 48.8 fl (35.1-43.9); White Blood Count 3.9 K/mm3 (4.4-11.0)
[2021-11-07 18:11] LABS: Anion Gap 4 (5-15); BUN 14 mg/dL (7-18); BUN/Creat Ratio 15.6 RATIO (10-20); Calcium,Total 8.5 mg/dL (8.5-10.1); Chloride 105 mmol/L (98-107); EST Glomerular Filtration Rate 65 mL/min (>60); Est Glom Filt Rate - Afr Amer 79 mL/min (>60); Glucose 92 mg/dL (74-106); Potassium 4.6 mmol/L (3.5-5.1); Sodium Level 136 mmol/L (136-145)
[2021-11-07 19:07] VITALS: BP 138/71; PULSE 81; RESP 17; O2SAT 96
--- NOTE | 2021-11-07 21:05 | ED.RN ---
REPORT CALLED TO ERMA AT [facility]
== END 2021-11-07 21:06 | disposition skilled nursing facility (03) ==
PROVIDERS: Emergency Provider Emergency Medicine; PCP Family Medicine; Visit Provider Emergency Medicine
DX: T84.84XA Pain due to internal orthopedic prosthetic devices, implants and grafts, initial encounter (principal); E11.40 Type 2 diabetes mellitus with diabetic neuropathy, unspecified; N39.0 Urinary tract infection, site not specified; Z87.442 Personal history of urinary calculi; Z79.01 Long term (current) use of anticoagulants; E78.5 Hyperlipidemia, unspecified; E78.00 Pure hypercholesterolemia, unspecified; G47.33 Obstructive sleep apnea (adult) (pediatric); F41.9 Anxiety disorder, unspecified; E66.9 Obesity, unspecified; T83.84XA Pain due to genitourinary prosthetic devices, implants and grafts, initial encounter; Y84.9 Medical procedure, unspecified as the cause of abnormal reaction of the patient, or of later complication, without mention of misadventure at the time of the procedure; Y92.9 Unspecified place or not applicable
CPT/HCPCS: 36415; 80048; 81001; 85025; 99283; J7050; A4216; J2405

== ENCOUNTER 2021-11-12 08:12 | Day surgery (SDC) | payer MEDICARE, MEDICAID, SELFPAY ==
[2021-11-12] VITALS (9 sets, daily range): BP systolic 94–136; BP diastolic 53–84; PULSE 66–97; RESP 16–22; TEMP 36.2–36.6; O2SAT 93–100; BMI 46.2
[2021-11-12] MEDS: Lactated Ringers 1,000 ML 15 ML IV ×2 (09:16→12:46)
--- NOTE | 2021-11-12 10:32 | HP.PCM_ITS ---
HPI - General HPI Narrative ADAM NIX, is a 76 F who presents for removal of right renal stones. [facility] Medical History Anxiety and depression Arthritis Back pain Bladder disease Carpal tunnel syndrome Cataracts, both eyes Chronic anticoagulation Chronic neuropathic pain Chronic pain following surgery or procedure Chronic UTI Closed left arm fracture Cystitis Depression Diabetes Diabetic neuropathy associated with type 2 diabetes mellitus DM II (diabetes mellitus, type II), controlled Facet arthropathy, lumbar FHx: cholecystectomy GERD (gastroesophageal reflux disease) GERD (gastroesophageal reflux disease) GI bleed Hematoma Hiatal hernia High cholesterol History of DVT (deep vein thrombosis) History of edema History of gallstones History of pain when walking History of stress test HLD (hyperlipidemia) Hx of peripheral neuropathy 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 Injury of head and neck Kidney stones Low iron Morbid obesity with BMI of 45.0-49.9, adult Neuropathy Non-smoker Non-smoker Normocytic anemia ROXIE (obstructive sleep apnea) Osteoarthritis Polycystic ovaries Pulmonary embolism Restless legs Segmental and somatic dysfunction of cervical region Segmental and somatic dysfunction of lumbar region Segmental and somatic dysfunction of pelvic region Segmental and somatic dysfunction of thoracic region Shortness of breath on exertion Uses wheelchair Walker as ambulation aid Wears dentures Wears hearing aid Home Medications cholecalciferol (vitamin D3) [Vitamin D3] 1,000 unit PO DAILY 12/29/15 [History Last Taken 07/24/21] duloxetine 90 mg PO DAILY 12/29/15 [History Last Taken 07/24/21] pravastatin 40 mg PO QHS 08/05/18 [History Last Taken 07/23/21] fluticasone propionate 2 spray NASAL DAILY 03/18/19 [History Last Taken 2] primidone 100 mg PO TID 03/18/19 [History Last Taken 07/24/21 12:00] simethicone 80 mg PO TIDCM 03/18/19 [History Last Taken 07/24/21 12:00] mirabegron 100 mg PO QHS 01/24/20 [History Last Taken 07/23/21] bupropion HCl 150 mg PO DAILY 08/09/20 [History Last Taken 07/24/21] alum-mag hydroxide-simeth 30 ml PO Q4H PRN PRN 08/20/20 [History Last Taken 10/22/20] albuterol sulfate 2.5 mg INHALATION Q2H PRN PRN vial.neb. 08/22/20 [Rx Last Taken Unknown] ascorbic acid (vitamin C) 500 mg PO DAILY 09/28/20 [History Last Taken 07/24/21] cyanocobalamin (vitamin B-12) 1,000 mcg IM QMONTH 10/23/20 [History Last Taken 08/24/21] ferrous sulfate 325 mg PO DAILY 10/23/20 [History Last Taken 07/24/21] Probiotic 1 cap PO/SL DAILY 07/24/21 [History Last Taken 07/23/21] omeprazole 40 mg PO DAILY 07/24/21 [History Last Taken 11/12/21] nystatin 1 applic TOPICAL TID 07/30/21 [History Last Taken Unknown] acetaminophen [Tylenol] 650 mg PO Q6H PRN PRN #1 tab 08/14/21 [Rx Last Taken Unknown] furosemide 60 mg PO DAILY #0 tab 08/14/21 [Rx Last Taken Unknown] oxybutynin chloride 5 mg PO DAILY 09/03/21 [History Last Taken Unknown] ondansetron HCl 8 mg PO Q8H PRN PRN 7 Days #20 tablet 09/04/21 [Rx Last Taken Un known] phenazopyridine [Pyridium] 200 mg PO TID PRN PRN 7 Days #30 tab 09/04/21 [Rx Last Taken Unknown] Eliquis 5 mg PO BID 09/30/21 [History Last Taken 11/06/21] divalproex [Depakote] 500 mg PO BID 09/30/21 [History Last Taken Unknown] guaifenesin 10 ml PO/SL Q4H PRN PRN 09/30/21 [History Last Taken Unknown] halobetasol propionate applic TOPICAL 11/03/21 [History Last Taken Unknown] sulfamethoxazole-trimethoprim [Bactrim DS] 1 tab PO BID #10 tab 11/05/21 [Rx Last Taken Unknown] Allergy/AdvReac Type Severity Reaction Status Date / Time ampicillin [From Unasyn] Allergy Severe Blisters Verified 11/12/21 09:06 on tongue /throat difficulty breathing sore tongue/ warfarin sodium Allergy Severe Low red Verified 11/12/21 09:06 [From Coumadin] blood cells Family History Father Colon cancer Hypertension Mother Hypertension Surgical History H/O cardiac catheterization History of carpal tunnel surgery History of cholecystectomy History of cystoscopy History of embolic filter insertion History of embolic filter insertion History of gastric bypass History of hysterectomy Hx of cystoscopy S/P hysterectomy Total knee replacement status Social History Smoking Status: Never smoker alcohol intake: current alcohol intake frequency: holidays/special occasions only substance use type: does not use what type of physical activity do you participate in: walking and aerobics frequency: 1-2 times per week ROS Constitutional Constitutional: Denies chills or fever(s) Eyes Eyes: Denies change in vision ENT HEENT: Reports systems reviewed and no addt'l complaints, except as documented Cardiovascular Cardiovascular: Denies abdominal pain, chest pain, dyspnea, nausea or vomiting Respiratory/Chest Respiratory/Chest: Denies cough, inability to speak or tachypnea Gastrointestinal Gastrointestinal: Denies nausea, vomiting or weight changes Genitourinary Genitourinary: Reports flank pain Musculoskeletal Musculoskeletal: Reports difficulty walking Integumentary Integumentary: Reports systems reviewed and no addt'l complaints, except as documented Neurologic Neurologic: Reports systems reviewed and no addt'l complaints, except as documented Psychiatric Psychiatric: Reports systems reviewed and no addt'l complaints, except as documented Endocrine Endocrinology: Reports systems reviewed and no addt'l complaints, except as documented Hematologic/Lymphatic Hematologic/Lymphatic: Reports systems reviewed and no addt'l complaints, except as documented Allergic/Immunologic Allergic/Immunologic: Reports systems reviewed and no addt'l complaints, except as documented Vital Signs Vital Signs Vital Signs: 11/12/21 09:08 Temperature 97.7 F L Temperature Source Temporal Pulse Rate 96 Respiratory Rate 16 Respiratory Pattern Normal Blood Pressure 136/64 H Blood Pressure Mean 88 Blood Pressure Source Monitor Blood Pressure Position Supine Blood Pressure Location Left Forearm Pulse Ox 97 Oxygen Delivery Method Room Air Weight Weight: 126 kg Body Mass Index (BMI) 46.2 Physical Exam Const alert, oriented x3 and no apparent distress HEENT normocephalic, head/scalp atraumatic, hearing grossly normal bilaterally and external nose normal Eyes conjunctivae normal and no scleral icterus General Eye: normal appearance of both eyes Neck supple General: trachea midline Lymph Lymphatic: no lymphedema noted Chest inspection of chest normal Chest: symmetrical chest wall rise Resp normal respiratory effort, normal air movement, no retractions and no use of accessory muscles Cardio regular rate and regular rhythm GI soft to palpation, non-tender and non-distended no CVA tenderness and external exam normal Back/Spine no CVA tenderness Extremity normal to inspection Skin no rashes or lesions noted, no wounds, skin turgor normal, no jaundice and no petechiae Neuro oriented x3, CN's II-XII intact bilaterally and moves all extremities Psych mental status grossly normal Assessment & Plan Assessment/Plan (1) Calculus of right kidney: (2) UTI (urinary tract infection): (3) Hydronephrosis: PLAN: ureteroscopy, stone basket extraction, laser lithotripsy and stent change. on keflex managed by infectious disease
--- NOTE | 2021-11-12 12:59 | PCM.DC ---
Discharge Instructions Diet Discharge Diet: No restrictions Activity Discharge Activity: Return to Normal Activity Dressing / Incision Call your doctor if you observe: Fever of 101 or Higher, Inability to urinate and Inability to have a bowel movement Follow Up Care Please Follow Up With: Alejandra Villavicencio MD When: 2-3 days for stent removal Test Results: Test results from this visit will be discussed in further detail at your follow-up appointment, if applicable. Discharge Plan Admission Attending Provider: Alejandra Villavicencio Primary Care Provider: Gonzales Pinto Discharge Orders/Prescriptions Prescriptions: New oxycodone-acetaminophen [Percocet] 5-325 mg tablet 1 tab PO Q8H PRN (Reason: pain) 3 Days Qty: 10 RF: 0 Continued cholecalciferol (vitamin D3) [Vitamin D3] 1,000 UNIT tablet 1,000 unit PO DAILY RF: 0 duloxetine 60 MG capsule 90 mg PO DAILY RF: 0 pravastatin 40 MG tablet 40 mg PO QHS RF: 0 primidone 50 MG tablet 100 mg PO TID RF: 0 fluticasone propionate 1 SPRAY spray,suspension 2 spray NASAL DAILY RF: 0 simethicone 80 MG tablet 80 mg PO TIDCM RF: 0 mirabegron 50 MG tablet extended release 24 hr 100 mg PO QHS RF: 0 bupropion HCl 150 MG tablet extended release 24 hr 150 mg PO DAILY RF: 0 alum-mag hydroxide-simeth 355 ML suspension 30 ml PO Q4H PRN PRN (Reason: GI DISTRESS) RF: 0 albuterol sulfate 2.5 MG/3 ML solution for nebulization 2.5 mg INHALATION Q2H PRN PRN (Reason: Dyspnea, wheezing) RF: 0 ascorbic acid (vitamin C) 500 MG tablet 500 mg PO DAILY RF: 0 cyanocobalamin (vitamin B-12) 1,000 mcg/mL Solution 1,000 mcg IM QMONTH RF: 0 ferrous sulfate 325 mg (65 mg iron) Tablet 325 mg PO DAILY RF: 0 omeprazole 40 mg capsule,delayed release(DR/EC) 40 mg PO DAILY RF: 0 Probiotic 1 cap PO/SL DAILY RF: 0 nystatin 100,000 unit/gram Powder 1 applic TOPICAL TID RF: 0 acetaminophen [Tylenol] 325 mg Tablet 650 mg PO Q6H PRN PRN (Reason: Pain Score 1-10/Temp > 100.7 F) Qty: 1 RF: 0 furosemide 20 mg Tablet 60 mg PO DAILY Qty: 0 RF: 0 oxybutynin chloride 5 mg Tablet 5 mg PO DAILY RF: 0 ondansetron HCl 8 MG tablet 8 mg PO Q8H PRN PRN (Reason: Nausea) 7 Days Qty: 20 RF: 0 phenazopyridine [Pyridium] 200 MG tablet 200 mg PO TID PRN PRN (Reason: Bladder Spasms) 7 Days Qty: 30 RF: 0 divalproex [Depakote] 500 mg Tablet,Delayed Release (Dr/Ec) 500 mg PO BID RF: 0 Eliquis 5 mg Tablet 5 mg PO BID RF: 0 guaifenesin 10 ml PO/SL Q4H PRN PRN (Reason: Cough) RF: 0 halobetasol propionate 0.05 % cream TOPICAL RF: 0 sulfamethoxazole-trimethoprim [Bactrim DS] 800-160 mg tablet 1 tab PO BID Qty: 10 RF: 0 Other Ambulatory Orders: COVID 19 AG RAPID (RN COLLECT) (Routine) Timeframe: 20211023 Facility: [facility] - Location: Laboratory Ordered By: Dr. Toni Jacobson Referrals / Follow Up: Gonzales Pinto MD [Primary Care Provider] - Disposition Disposition (needs filled in before D/C Order can be placed): Home, Self Care
--- NOTE | 2021-11-12 15:35 | OP.PCM_ITS ---
Problems Associated Problem List Diagnoses (1) Calculus of right kidney: Report of Operation Date of Procedure: 11/12/21 Pre-Operative Diagnosis: Right renal calculus Post-Operative Diagnosis: Same Surgery/Procedure Performed:: Cystoscopy, right ureteroscopy, extensive stone basket extraction for approximately 2 hours, right ureteral stent change Surgeon: Alejandra Villavicencio Type of Anesthesia: General Specimen's removed: Stone fragments Description of Procedure: The patient is a 76-year-old female status post ex tracorporal shockwave lithotripsy now presents for definitive removal of her remaining stone burden via ureteroscopy. She has had a complicated course with urinary tract infections requiring management by infectious disease. She is currently on Keflex and will be discharged on this Keflex today. These instructions were her infectious disease. Informed consent was obtained. The patient was taken to the operating room and placed on the operating table. Anesthesia monitored the head, neck, airway, IV access and vital signs throughout the case. Once anesthesia was appropriate ministered the patient was placed into dorsal lithotomy position was prepped and draped in usual sterile fashion. The cystoscope was then inserted through the urethra under direct visualization into the urinary bladder. The indwelling ureteral stent was visualized and a 0.035 Glidewire was passed alongside the stent. The stent was then removed and a second Glidewire was placed. One Glidewire was used for pl acing a ureteral reaccessed sheath. This was done under fluoroscopic visualization and there were no complications. At this time the flexible ureteroscope was used for access to the right calyces or a multitude of small fragments of stones were identified. A stone basket was then used to retrieve fragment after fragment after fragments. When no further fragments were identified, the ureteral access sheath was removed under direct visualization revealing no injury to the ureter. The remaining wire was used for insertion of a 6 [place] 26 JJ stent with good positioning in the renal pelvis. This time the bladder was irrigated of multiple remaining small stone fragments. The bladder was emptied and the cystoscope was removed. The patient was awakened and taken to the recovery room in good condition. There were no complications during this procedure. Grafts/Implants Used: 6 x 26 JJ stent Complications None Admit VTE Documentation VTE Present on Admission: Yes VTE Mechan Device Prophylaxis: SCD's VTE Pharm Prophylaxis ordered?: Yes
[2021-11-16 15:30] LABS: Source Not Provided
== END 2021-11-12 15:41 | disposition home or self-care (01) ==
LOC: SDC 08:14 → AC 08:15
PROVIDERS: PCP Family Medicine; Referring Provider Urology; Visit Provider Urology
PROC: 0TJ98ZZ Inspection of Ureter, Via Natural or Artificial Opening Endoscopic (ICD-10-PCS; CPT 52352; principal; 2021-11-12 10:05)
DX: N13.6 Pyonephrosis (principal); E11.40 Type 2 diabetes mellitus with diabetic neuropathy, unspecified; Z79.01 Long term (current) use of anticoagulants; K21.9 Gastro-esophageal reflux disease without esophagitis; E61.1 Iron deficiency; G47.33 Obstructive sleep apnea (adult) (pediatric)
CPT/HCPCS: 52352; 52310; 00918; 76000; 82360; J7120; C2617; J2405

== ENCOUNTER 2021-11-19 21:28 | Emergency (ER) | payer MEDICARE, MEDICAID, SELFPAY ==
[2021-11-19 21:29] VITALS: BP 151/65; PULSE 73; RESP 21; TEMP 36.5; O2SAT 98; BMI 49.1
--- NOTE | 2021-11-19 22:10 | CT_ITS ---
STUDY: CT BRAIN WITHOUT CONTRAST REASON FOR EXAM: Female, 76 years old. weakness RADIATION DOSAGE (If Supplied By Facility): CTDIvol = ( 44.99 ) mGy, DLP = ( 863.60 ) mGycm TECHNIQUE: Transaxial CT imaging of the brain was performed without administration of intravenous contrast material. Individualized dose optimization techniques were used for this CT. COMPARISON: 08/10/2021 FINDINGS: Normal soft tissue structures. Normal calvarium. Mild senescent global cerebral volume loss. Moderate patchy periventricular chronic small vessel white matter ischemic change. Unchanged chronic bilateral basal ganglia and inferior thalamic mineralization. Carotid and vertebral atherosclerosis. There is no intracranial hemorrhage. There are no findings of an acute ischemic infarction. Hypodense left sphenoid sinus disease with inspissated mucous or chronic allergic fungal disease. CT/Brain/Head without Contrast IMPRESSION: No evidence of acute intracranial hemorrhage or injury. Senescent changes and atherosclerosis. Sinus disease as above. Electronically Signed: Chris Villareal MD at 23:17 EDT ,
--- NOTE | 2021-11-19 22:11 | EKG12_ITS ---
Test Reason : CP Blood Pressure : / mmHG Vent. Rate : 071 BPM Atrial Rate : 071 BPM P-R Int : 210 ms QRS Dur : 094 ms QT Int : 398 ms P-R-T Axes : 050 018 039 degrees QTc Int : 432 ms Sinus rhythm with 1st degree A-V block Otherwise normal ECG Confirmed by SILVIA GUNTER, DALTON ([id number]), editorial director KARISHMA BRAGG ([id number]) on 11/20/2021 1:34:16 PM Referred By: PARVIZ Confirmed By:DALTON VEGA MD
--- NOTE | 2021-11-19 22:13 | ED.VIS.CHEST ---
HPI History of Present Illness Chief Complaint: Chest Pain Informant: patient Narrative Narrative: Patient presents with 2 complaints. Patient had onset of dizziness. She was watching TV. She moved and noticed that the room was spinning around. She had no nausea vomiting. No headache. This lasted for half an hour or so and is totally gone. She does state there is a true sense of motion. Nothing seemed to make it better but turning and looking around made it worse. When she was turning and looking around she noticed pain just to the left of her sternum and one area of her chest. It is sharp and localized. It does not really radiate locally. There was no nausea vomiting diaphoresis or shortness of breath. That is still there. It is a little worse if she moves it is better if she stays still. She does not have a history of heart disease. It sounds like she has had DVT in the past and is on Eliquis and taking it. Her parents had heart disease but sounds like it was in their mid 60s. She does have cholesterol and is on pravastatin. She does not actually have history of high blood pressure. She is a non-smoker. No diabetes. [facility] Medical History Anxiety and depression Arthritis Back pain Bladder disease Carpal tunnel syndrome Cataracts, both eyes Chronic anticoagulation Chronic neuropathic pain Chronic pain following surgery or procedure Chronic UTI Closed left arm fracture Cystitis Depression Diabetes Diabetic neuropathy associated with type 2 diabetes mellitus DM II (diabetes mellitus, type II), controlled Facet arthropathy, lumbar FHx: cholecystectomy GERD (gastroesophageal reflux disease) GERD (gastroesophageal reflux disease) GI bleed Hematoma Hiatal hernia High cholesterol History of DVT (deep vein thrombosis) History of edema History of gallstones History of pain when walking History of stress test HLD (hyperlipidemia) Hx of peripheral neuropathy Hydronephrosis 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 Injury of head and neck Kidney stones Low iron Morbid obesity with BMI of 45.0-49.9, adult Neuropathy Non-smoker Non-smoker Normocytic anemia ROXIE (obstructive sleep apnea) Osteoarthritis Polycystic ovaries Pulmonary embolism Restless legs Segmental and somatic dysfunction of cervical region Segmental and somatic dysfunction of lumbar region Segmental and somatic dysfunction of pelvic region Segmental and somatic dysfunction of thoracic region Shortness of breath on exertion Uses wheelchair Walker as ambulation aid Wears dentures Wears hearing aid Home Medications cholecalciferol (vitamin D3) [Vitamin D3] 1,000 unit PO DAILY 12/29/15 [History Last Taken 07/24/21] duloxetine 90 mg PO DAILY 12/29/15 [History Last Taken 07/24/21] pravastatin 40 mg PO QHS 08/05/18 [History Last Taken 07/23/21] fluticasone propionate 2 spray NASAL DAILY 03/18/19 [History Last Taken 07/24/21] primidone 100 mg PO TID 03/18/19 [History Last Taken 07/24/21 12:00] simethicone 80 mg PO TIDCM 03/18/19 [History Last Taken 07/24/21 12:00] mirabegron 100 mg PO QHS 01/24/20 [History Last Taken 07/23/21] bupropion HCl 150 mg PO DAILY 08/09/20 [History Last Taken 07/24/21] alum-mag hydroxide-simeth 30 ml PO Q4H PRN PRN 08/20/20 [History Last Taken 10/22/20] albuterol sulfate 2.5 mg INHALATION Q2H PRN PRN vial.neb. 08/22/20 [Rx Last Taken Unknown] ascorbic acid (vitamin C) 500 mg PO DAILY 09/28/20 [History Last Taken 07/24/21] cyanocobalamin (vitamin B-12) 1,000 mcg IM QMONTH 10/23/20 [History Last Taken 08/24/21] ferrous sulfate 325 mg PO DAILY 10/23/20 [History Last Taken 07/24/21] Probiotic 1 cap PO/SL DAILY 07/24/21 [History Last Taken 07/23/21] omeprazole 40 mg PO DAILY 07/24/21 [History Last Taken 11/12/21] nystatin 1 applic TOPICAL TID 07/30/21 [History Last Taken Unknown] acetaminophen [Tylenol] 650 mg PO Q6H PRN PRN #1 tab 08/14/21 [Rx Last Taken Unknown] furosemide 60 mg PO DAILY #0 tab 08/14/21 [Rx Last Taken Unknown] oxybutynin chloride 5 mg PO DAILY 09/03/21 [History Last Taken Unknown] ondansetron HCl 8 mg PO Q8H PRN PRN 7 Days #20 tablet 09/04/21 [Rx Last Taken Unknown] phenazopyridine [Pyridium] 200 mg PO TID PRN PRN 7 Days #30 tab 09/04/21 [Rx Last Taken Unknown] Eliquis 5 mg PO BID 09/30/21 [History Last Taken 11/06/21] divalproex [Depakote] 500 mg PO BID 09/30/21 [History Last Taken Unknown] guaifenesin 10 ml PO/SL Q4H PRN PRN 09/30/21 [History Last Taken Unknown] halobetasol propionate applic TOPICAL 11/03/21 [History Last Taken Unknown] sulfamethoxazole-trimethoprim [Bactrim DS] 1 tab PO BID #10 tab 11/05/21 [Rx Last Taken Unknown] Allergy/AdvReac Type Severity Reaction Status Date / Time ampicillin [From Unasyn] Allergy Severe Blisters Verified 11/12/21 09:06 on tongue /throat difficulty breathing sore tongue/ warfarin sodium Allergy Severe Low red Verified 11/12/21 09:06 [From Coumadin] blood cells Family History Father Colon cancer Hypertension Mother Hypertension Surgical History H/O cardiac catheterization History of carpal tunnel surgery History of cholecystectomy History of cystoscopy History of embolic filter insertion History of embolic filter insertion History of gastric bypass History of hysterectomy Hx of cystoscopy S/P hysterectomy Total knee replacement status Social History Smoking Status: Never smoker alcohol intake: current alcohol intake frequency: holidays/special occasions only substance use type: does not use what type of physical activity do you participate in: walking and aerobics frequency: 1-2 times per week ROS ROS ED Constitutional Constitutional ED: Denies chills or fever(s) Eyes Eyes: Denies blurry vision, change in vision or diplopia ENT ENT ED: Denies rhinorrhea or sore throat Cardiovascular Cardiovascular: Reports as per HPI Respiratory/Chest Respiratory/Chest: Denies cough or dyspnea Gastrointestinal Gastrointestinal: Denies nausea or vomiting Genitourinary Genitourinary ED: Reports other Details: Patient had recent stent removal and stone removal but she is asymptomatic and feels very good from this point of view now. ; Denies dysuria Musculoskeletal Musculoskeletal: Denies arthralgias or myalgias Integumentary Denies rash Neurologic Neurologic: Reports other Details: Transient vertigo as in history of present illness ; Denies headache(s), paresthesias or weakness Endocrine Endocrinology: Denies polyuria Hematologic/Lymphatic Hematologic/Lymphatic: Reports easy bleeding and easy bruising Allergic/Immunologic Allergic/Immunologic ED: Denies urticaria EXAM Physical Exam Const Vital Signs: 11/19/21 21:29 11/19/21 21:33 11/19/21 22:38 Temperature 97.7 F L Temperature Source Oral Pulse Rate 73 71 Respiratory Rate 21 H 18 Respiratory Effort Normal Blood Pressure 151/65 H 140/82 H Blood Pressure Mean 93 101 Pulse Ox 98 96 Oxygen Delivery Method Room Air Room Air 11/19/21 23:22 Temperature Temperature Source Pulse Rate 75 Respiratory Rate 24 H Respiratory Effort Blood Pressure 144/74 H Blood Pressure Mean 97 Pulse Ox 94 Oxygen Delivery Method Room Air Positive well nourished and well developed General Appearance ED: well developed and NAD HEENT Reports moist mucous membranes HEENT Narrative: Bilateral hearing aids. No dizziness with head motion at this time. normocephalic and atraumatic Eyes PERRL and EOMs intact bilaterally Neck supple Chest Wall inspection of chest normal Chest Narrative: Patient has reproducible chest wall pain at about the fourth fifth rib just left of the sternum. There are no lesions or erythema or visible abnormalities there. However this does really fully reproduce her symptoms. Resp normal respiratory effort Cardio regular rate, regular rhythm and S1 normal heart sound Back/Spine no CVA tenderness General Back: CVA tenderness Extremity normal to inspection General Extremety ED: Negative for tenderness Neuro oriented x3 Sensorium / Orientation: awake and alert Psych mental status grossly normal Skin no rashes or lesions noted Heart Score History: Slightly/Non-Suspicious ECG: Normal Age: >/= 65 years Risk Factors: 1 or 2 Risk Factors Troponin: </= Normal Limit Score: 3 MDM MDM MDM Narrative Medical decision making narrative: This bite is patient's age, she actually has relatively few risk factors for heart disease. She has a heart score of 4. Blood work showed mildly low hemoglobin and white count. However, this is baseline. Electrolytes show no marked abnormalities. Troponin was negative. Valproic acid was not elevated. This was checked as it can cause dizziness. But her dizziness is completely resolved. Repeat troponin was still quite low. There is no rise. With her completely resolved symptoms, negative work-up, low heart score, and being DNR comfort care only I think she is okay to go back to nursing facility. I did discuss these issues with her and the family. She is already on Eliquis. Lab Data Attestation: I reviewed the patient's lab results. Labs: Laboratory Results - last 24 hr 11/19/21 11/19/21 11/19/21 22:15 22:15 22:20 WBC 4.0 L RBC 3.43 L Hgb 10.5 L Hct 32.6 L MCV 95.0 MCH 30.6 MCHC 32.2 RDW Std Deviation 49.5 H RDW Coeff of Chani 14.2 Plt Count 232 MPV 9.9 Immature Gran % (Auto) 0.300 Neut % (Auto) 52.4 Lymph % (Auto) 35.0 Throckmorton % (Auto) 9.0 Eos % (Auto) 2.5 Baso % (Auto) 0.8 Absolute Neuts (auto) 2.1 Absolute Lymphs (auto) 1.40 Nucleated RBC % 0 Sodium 138 Potassium 4.4 Chloride 108 H Carbon Dioxide 27.0 Anion Gap 3 L BUN 13 Creatinine 0.69 Estim Creat Clear Calc 43.74 Est GFR (MDRD) Af Amer 106 Est GFR (MDRD) Non-Af 88 BUN/Creatinine Ratio 18.8 Glucose 88 Calcium 8.2 L Troponin I High Sens 8 Valproic Acid 44 L 11/20/21 00:15 WBC RBC Hgb Hct MCV MCH MCHC RDW Std Deviation RDW Coeff of Chani Plt Count MPV Immature Gran % (Auto) Neut % (Auto) Lymph % (Auto) Throckmorton % (Auto) Eos % (Auto) Baso % (Auto) Absolute Neuts (auto) Absolute Lymphs (auto) Nucleated RBC % Sodium Potassium Chloride Carbon Dioxide Anion Gap BUN Creatinine Estim Creat Clear Calc Est GFR (MDRD) Af Amer Est GFR (MDRD) Non-Af BUN/Creatinine Ratio Glucose Calcium Troponin I High Sens 7 Valproic Acid Radiography Diagnostic Testing: Clinical Impression(s) from Imaging Studies Brain CT 11/19/21 22:10 IMPRESSION: No evidence of acute intracranial hemorrhage or injury. Senescent changes and atherosclerosis. Sinus disease as above. Electronically Signed: Chris Villareal MD at 23:17 EDT , Chest X-Ray 11/19/21 22:25 IMPRESSION: No radiographic evidence of acute cardiopulmonary disease. Electronically Signed: Chris Villareal MD at 23:10 EDT , EKG Initial EKG: Comments: EKG done for history of chest pain read by me shows sinus rhythm with first-degree AV block. Overall rate of 71. No ventricular ectopy on EKG although I see a rare PVC on the monitor. There is no acute ST elevation or depression consistent with infarct or ischemia. The EKG was done when she had some discomfort. [place] interval is long. QRS duration and QTc are normal. Discharge Plan Triage Chief Complaint: Chest Pain ED Provider: Bandar Camilo Dx/Rx/DC Orders Clinical Impression: Vertigo, Chest pain Instructions: ED Chest Pain, Uncertain Cause, ED Vertigo, Unspecified Prescriptions: No Action cholecalciferol (vitamin D3) [Vitamin D3] 1,000 UNIT tablet 1,000 unit PO DAILY RF: 0 duloxetine 60 MG capsule 90 mg PO DAILY RF: 0 pravastatin 40 MG tablet 40 mg PO QHS RF: 0 primidone 50 MG tablet 100 mg PO TID RF: 0 fluticasone propionate 1 SPRAY spray,suspension 2 spray NASAL DAILY RF: 0 simethicone 80 MG tablet 80 mg PO TIDCM RF: 0 mirabegron 50 MG tablet extended release 24 hr 100 mg PO QHS RF: 0 bupropion HCl 150 MG tablet extended release 24 hr 150 mg PO DAILY RF: 0 alum-mag hydroxide-simeth 355 ML suspension 30 ml PO Q4H PRN PRN (Reason: GI DISTRESS) RF: 0 albuterol sulfate 2.5 MG/3 ML solution for nebulization 2.5 mg INHALATION Q2H PRN PRN (Reason: Dyspnea, wheezing) RF: 0 ascorbic acid (vitamin C) 500 MG tablet 500 mg PO DAILY RF: 0 cyanocobalamin (vitamin B-12) 1,000 mcg/mL Solution 1,000 mcg IM QMONTH RF: 0 ferrous sulfate 325 mg (65 mg iron) Tablet 325 mg PO DAILY RF: 0 omeprazole 40 mg capsule,delayed release(DR/EC) 40 mg PO DAILY RF: 0 Probiotic 1 cap PO/SL DAILY RF: 0 nystatin 100,000 unit/gram Powder 1 applic TOPICAL TID RF: 0 acetaminophen [Tylenol] 325 mg Tablet 650 mg PO Q6H PRN PRN (Reason: Pain Score 1-10/Temp > 100.7 F) Qty: 1 RF: 0 furosemide 20 mg Tablet 60 mg PO DAILY Qty: 0 RF: 0 oxybutynin chloride 5 mg Tablet 5 mg PO DAILY RF: 0 ondansetron HCl 8 MG tablet 8 mg PO Q8H PRN PRN (Reason: Nausea) 7 Days Qty: 20 RF: 0 phenazopyridine [Pyridium] 200 MG tablet 200 mg PO TID PRN PRN (Reason: Bladder Spasms) 7 Days Qty: 30 RF: 0 divalproex [Depakote] 500 mg Tablet,Delayed Release (Dr/Ec) 500 mg PO BID RF: 0 Eliquis 5 mg Tablet 5 mg PO BID RF: 0 guaifenesin 10 ml PO/SL Q4H PRN PRN (Reason: Cough) RF: 0 halobetasol propionate 0.05 % cream TOPICAL RF: 0 sulfamethoxazole-trimethoprim [Bactrim DS] 800-160 mg tablet 1 tab PO BID Qty: 10 RF: 0 Primary Care Provider: Gonzales Pinto Referrals: Gonzales Pinto MD [Primary Care Provider] - 3-5 Days Disposition Disposition: Detention Facility
--- NOTE | 2021-11-19 22:25 | RAD_ITS ---
INDICATION: chest pain EXAMINATION/TECHNIQUE: X-RAY - XR Chest 1 View COMPARISON: None. FINDINGS: LINES/DEVICES: None. LUNGS: No consolidation, edema or effusion. No pneumothorax. MEDIASTINUM AND CARDIOVASCULAR STRUCTURES: Cardiac silhouette not enlarged. Central airways and mediastinal contour are unremarkable. Aortic atherosclerosis. BONES AND SOFT TISSUES: Unremarkable. Moderate bilateral glenohumeral osteoarthritis. RAD/Chest 1 View (Portable) IMPRESSION: No radiographic evidence of acute cardiopulmonary disease. Electronically Signed: Chris Villareal MD at 23:10 EDT ,
[2021-11-19 22:30] LABS: Absolute Neutrophil Count 2.1 X10^3/uL (2.0-7.7); Basophil# 0.03 X10^3/uL; Basophil% 0.8 % (0-1); Eosinophils% 2.5 % (0-5); Hematocrit 32.6 % (37-47); Hemoglobin 10.5 g/dL (12.0-15.0); Mean Corp Hgb Conc 32.2 g/dL (32-36); Mean Corpuscular Hgb 30.6 pg (27.0-32.0); Mean Platelet Vol. 9.9 fl (6.2-12.0); Monocyte# 0.36 X10^3/uL; NRBC Flagged by Analyzer 0 % (0-5); Neutrophil % 52.4 % (47-70); Platelet Count 232 K/mm3 (150-450); RBC Distribution Width CV 14.2 % (11.6-14.6); RBC Distribution Width SD 49.5 fl (35.1-43.9); Red Blood Count 3.43 M/mm3 (4.2-5.4)
[2021-11-19 22:38] VITALS: BP 140/82; PULSE 71; RESP 18; O2SAT 96
[2021-11-19 22:45] LABS: Anion Gap 3 (5-15); BUN 13 mg/dL (7-18); BUN/Creat Ratio 18.8 RATIO (10-20); Calcium,Total 8.2 mg/dL (8.5-10.1); Chloride 108 mmol/L (98-107); Creatinine, Serum 0.69 mg/dL (0.55-1.02); EST Glomerular Filtration Rate 88 mL/min (>60); Est Glom Filt Rate - Afr Amer 106 mL/min (>60); Estimated Creatinine Clearance 43.74 ml/min; Glucose 88 mg/dL (74-106); Potassium 4.4 mmol/L (3.5-5.1); Sodium Level 138 mmol/L (136-145); Troponin-I HS (w/2H Reflex) 8 pg/mL (3.0-54.0)
[2021-11-19 23:08] LABS: Valproic Acid (Depakene) Level 44 ug/mL (50-100)
[2021-11-19 23:22] VITALS: BP 144/74; PULSE 75; RESP 24; O2SAT 94
[2021-11-20 00:18] LABS: Reflex Troponin-HS? (from REC) Y
[2021-11-20 00:45] LABS: Troponin-I HS 7 pg/mL (3.0-54.0)
[2021-11-20 01:10] VITALS: BP 130/77; PULSE 82; RESP 24; O2SAT 96
[2021-11-20 01:11] VITALS: PULSE 84
--- NOTE | 2021-11-20 01:15 | ED.RN ---
Called [facility] and [facility] for nurse to let them know patient will be back at 0145. Reviewed results/reason for visit and plan to folloe up. Last set of VS given. Told to call back if questions.
== END 2021-11-20 02:00 | disposition skilled nursing facility (03) ==
PROVIDERS: Emergency Provider Emergency Medicine; PCP Family Medicine; Visit Provider Emergency Medicine
DX: R42 Dizziness and giddiness (principal); R07.9 Chest pain, unspecified; G47.33 Obstructive sleep apnea (adult) (pediatric); E78.00 Pure hypercholesterolemia, unspecified; K21.9 Gastro-esophageal reflux disease without esophagitis; F32.A Depression, unspecified; F41.9 Anxiety disorder, unspecified; Z79.899 Other long term (current) drug therapy; Z79.01 Long term (current) use of anticoagulants; Z86.718 Personal history of other venous thrombosis and embolism; Z86.711 Personal history of pulmonary embolism
CPT/HCPCS: 70450; 71045; 80048; 80164; 84484; 85025; 93005; 99285; A4216

== ENCOUNTER → 2021-11-20 | Outpatient (REF) | payer MEDICARE, MEDICAID, SELFPAY ==
[2021-11-20 10:45] LABS: Hemoglobin 11.3 g/dL (12.0-15.0); Mean Corp Hgb Conc 32.3 g/dL (32-36); Mean Corpuscular Hgb 31.5 pg (27.0-32.0); Mean Corpuscular Volume 97.5 fL (81-99); Mean Platelet Vol. 9.8 fl (6.2-12.0); Platelet Count 243 K/mm3 (150-450); RBC Distribution Width CV 14.2 % (11.6-14.6); RBC Distribution Width SD 50.8 fl (35.1-43.9); Red Blood Count 3.59 M/mm3 (4.2-5.4); White Blood Count 4.7 K/mm3 (4.4-11.0)
[2021-11-20 10:57] LABS: Anion Gap 7 (5-15); BUN 14 mg/dL (7-18); Calcium,Total 8.4 mg/dL (8.5-10.1); Chloride 108 mmol/L (98-107); Creatinine, Serum 0.67 mg/dL (0.55-1.02); EST Glomerular Filtration Rate 92 mL/min (>60); Est Glom Filt Rate - Afr Amer 111 mL/min (>60); Glucose 88 mg/dL (74-106); Potassium 3.8 mmol/L (3.5-5.1); Sodium Level 140 mmol/L (136-145)
== END | disposition home or self-care (01) ==
LOC: OLS.SWAL 05:00
PROVIDERS: PCP Family Medicine; Visit Provider Family Medicine
DX: I10 Essential (primary) hypertension (principal)
CPT/HCPCS: 36415; 80048; 85027

== ENCOUNTER 2021-12-10 07:13 | Day surgery (SDC) | payer MEDICARE, MEDICAID, SELFPAY ==
[2021-12-10 07:32] VITALS: BP 118/63; PULSE 75; RESP 16; TEMP 36.2; O2SAT 97; BMI 46.7
[2021-12-10] MEDS: Lactated Ringers 1,000 ML 15 ML IV (07:51)
--- NOTE | 2021-12-10 08:35 | RAD_ITS ---
STUDY: X-RAY - RIGHT KNEE REASON FOR EXAM: Female, 76 years old. Radiofrequency ablation. Intraprocedural images. TECHNIQUE: 5 intraprocedural digital documentation view(s) of the knee. COMPARISON: None. FINDINGS: 5 intraprocedural digital documentation images show multiple needles. Total knee arthroplasty is present. RAD/Knee 1 or 2 Views IMPRESSION: Intraprocedural digital documentation images. Electronically Signed: Juan Jernigan MD at 12:18 EDT ,
[2021-12-10] MEDS: Bupivacaine Mpf 0.5% 30 ML VIAL (08:50)
[2021-12-10] MEDS: Lidocaine 1% (5 ml sdv) 5 ML Vial (08:50)
[2021-12-10] MEDS: MethylPREDNISolone Acetate 80 MG/ML Vial (08:58)
[2021-12-10 09:08] VITALS: BP 118/63; BP 123/71
[2021-12-10 09:15] VITALS: BP 118/63; BP 127/57; PULSE 75; RESP 16; O2SAT 96
[2021-12-10 09:20] VITALS: BP 118/63; BP 131/59; PULSE 76; RESP 16; O2SAT 96
[2021-12-10 09:23] VITALS: BP 118/63; BP 136/62; PULSE 75; RESP 16; TEMP 36.5; O2SAT 94
[2021-12-10 09:40] VITALS: BP 118/63
--- NOTE | 2021-12-10 15:46 | OP.PCM_ITS ---
Report of Operation Date of Procedure: 12/10/21 Pre-Operative Diagnosis: Osteoarthritis of the right knee, chronic postoperative knee pain Post-Operative Diagnosis: Osteoarthritis of the right knee, chronic postoperative knee pain Surgery/Procedure Performed:: Right knee radiofrequency ablation of the superior medial, superior lateral, inferior medial genicular nerves under fluoroscopic guidance Description of Surgical Findings:: DESCRIPTION OF PROCEDURE: History and physical of today was reviewed. Risks and benefits of the procedure were explained. The patient understood and agreed to proceed. Informed consent was obtained. IV inserted per routine protocol. The patient was taken to the operating room and placed in the supine position. The right knee was prepped and draped in a sterile fashion using iodine x3. Under fluoroscopy guidance on AP view, the left knee was visualized. The skin and subcutaneous tissue was anesthetized with approximately 15 mL of 1% lidocaine using a 25-gauge regular needle at the vicinity of the superomedial, superolateral, and inferomedial genicular nerves. Under direct visualization of fluoroscopy on AP view as well as lateral view, starting on the right s uperomedial, ending on the right inferomedial, passing through the right superolateral genicular nerves, using a 20-gauge 10 cm with a 10 mm curved active tip radiofrequency ablation needle, the needle was passed through the skin. The tip of the needle was maneuvered and directed towards the diaphyseal junction of each corresponding nerve. Once tip of the needle was in the vicinity of the diaphysis and in contact with the bone, after confirmation on AP as well as lateral view and repeated negative aspiration for blood, radiofrequency ablation probe was then inserted at each level impedance was then recorded at the superior medial 347, at the superior lateral 248, at the inferior medial 331 ohm, motor evoked potential was then initiated to 1.5 V without any motor response at each corresponding level, a total of 3 cc of 1% lidocaine were injected in divided doses between the 3 levels after repeated negative aspiration for blood the radiofrequency ablation probe was then reinserted after repeated confirmation on AP oblique as well as lateral view radiofrequency ablation was then initiated to 80 ?C for 90 seconds at each level once concluded the probe was then removed intact and a total of 6 mL of preservative-free 0.25% Marcaine with 40 mg of Depo-Medrol was injected in divided doses between those three levels. The needles were then removed intact. The patient experienced no sign or symptoms of intravascular injection. The patient experienced no paresthesia. The procedure was completed without any apparent difficulty or any complications. The patient appeared to tolerate it well. ASSESSMENT AND PLAN: This is a 76-year-old female with osteoarthritis of the right knee, chronic postoperative knee pain status post right knee radiofrequency ablation of the superior medial, superior lateral, inferior medial genicular nerves under fluoroscopic guidance, patient will continue her current medications, patient will follow in approximately 2 weeks for reevaluation. Type of Anesthesia: MAC Estimated Blood Loss (mL): Minimal Complications None.
== END 2021-12-10 10:25 | disposition home or self-care (01) ==
LOC: SDC 07:14 → AC 07:16
PROVIDERS: PCP Family Medicine; Referring Provider Anesthesiology Pain Medicine; Visit Provider Anesthesiology Pain Medicine
PROC: (CPT 64454; principal; 2021-12-10 08:45)
DX: M17.11 Unilateral primary osteoarthritis, right knee (principal); M25.562 Pain in left knee; G89.29 Other chronic pain; I10 Essential (primary) hypertension; K21.9 Gastro-esophageal reflux disease without esophagitis; Z98.84 Bariatric surgery status
CPT/HCPCS: 64454; 73560; 76000; J7120; J3490

== ENCOUNTER → 2021-12-18 | Outpatient (REF) | payer MEDICARE, MEDICAID, SELFPAY ==
[2021-12-18 08:30] LABS: Hematocrit 41.3 % (37-47); Mean Corp Hgb Conc 31.5 g/dL (32-36); Mean Corpuscular Volume 98.6 fL (81-99); Mean Platelet Vol. 10.5 fl (6.2-12.0); Platelet Count 227 K/mm3 (150-450); RBC Distribution Width CV 13.5 % (11.6-14.6); RBC Distribution Width SD 48.2 fl (35.1-43.9); Red Blood Count 4.19 M/mm3 (4.2-5.4); White Blood Count 4.2 K/mm3 (4.4-11.0)
[2021-12-18 08:34] LABS: Anion Gap 6 (5-15); BUN 19 mg/dL (7-18); BUN/Creat Ratio 23.5 RATIO (10-20); Calcium,Total 8.7 mg/dL (8.5-10.1); Chloride 107 mmol/L (98-107); Creatinine, Serum 0.81 mg/dL (0.55-1.02); EST Glomerular Filtration Rate 73 mL/min (>60); Est Glom Filt Rate - Afr Amer 89 mL/min (>60); Glucose 84 mg/dL (74-106); Potassium 4.3 mmol/L (3.5-5.1); Sodium Level 141 mmol/L (136-145)
== END | disposition home or self-care (01) ==
LOC: OLS.SWAL 05:00
PROVIDERS: PCP Family Medicine; Visit Provider Family Medicine
DX: I10 Essential (primary) hypertension (principal)
CPT/HCPCS: 36415; 80048; 85027

== ENCOUNTER → 2022-01-15 | Outpatient (REF) | payer MEDICARE, MEDICAID, SELFPAY ==
[2022-01-15 09:04] LABS: Hemoglobin 11.5 g/dL (12.0-15.0); Mean Corp Hgb Conc 31.9 g/dL (32-36); Mean Corpuscular Hgb 31.6 pg (27.0-32.0); Mean Corpuscular Volume 98.9 fL (81-99); Mean Platelet Vol. 10.2 fl (6.2-12.0); Platelet Count 198 K/mm3 (150-450); RBC Distribution Width CV 13.5 % (11.6-14.6); RBC Distribution Width SD 49.3 fl (35.1-43.9); Red Blood Count 3.64 M/mm3 (4.2-5.4); White Blood Count 2.8 K/mm3 (4.4-11.0)
[2022-01-15 09:26] LABS: Anion Gap 4 (5-15); BUN 16 mg/dL (7-18); BUN/Creat Ratio 26.5 RATIO (10-20); Chloride 110 mmol/L (98-107); EST Glomerular Filtration Rate 103 mL/min (>60); Est Glom Filt Rate - Afr Amer 124 mL/min (>60); Glucose 82 mg/dL (74-106); Sodium Level 140 mmol/L (136-145)
== END | disposition home or self-care (01) ==
LOC: OLS.SWAL 05:00
PROVIDERS: PCP Family Medicine; Visit Provider Family Medicine
DX: I10 Essential (primary) hypertension (principal)
CPT/HCPCS: 36415; 80048; 85027

== ENCOUNTER → 2022-02-12 | Outpatient (CLI) | payer MEDICARE, MEDICAID, SELFPAY ==
[2022-02-12 18:21] LABS: Hemoglobin 12.9 g/dL (12.0-15.0); Mean Corp Hgb Conc 31.5 g/dL (32-36); Mean Corpuscular Hgb 31.5 pg (27.0-32.0); Mean Corpuscular Volume 100.2 fL (81-99); Mean Platelet Vol. 10.1 fl (6.2-12.0); Platelet Count 226 K/mm3 (150-450); RBC Distribution Width CV 13.6 % (11.6-14.6); RBC Distribution Width SD 50.3 fl (35.1-43.9); Red Blood Count 4.09 M/mm3 (4.2-5.4); White Blood Count 5.3 K/mm3 (4.4-11.0)
[2022-02-12 18:35] LABS: Erythrocyte Sedimentation Rate 4 mm/hr (0-30)
[2022-02-12 18:53] LABS: ALB/GLOB Ratio 0.9 RATIO (0.9-2.4); AST(SGOT) 20 U/L (15-37); Alanine Aminotransfer ALT/SGPT 23 U/L (13-56); Albumin, Serum 3.1 g/dL (3.2-5.0); Alkaline Phosphatase 107 U/L (45-117); Anion Gap 7 (5-15); BUN 19 mg/dL (7-18); BUN/Creat Ratio 23.2 RATIO (10-20); Calcium,Total 8.4 mg/dL (8.5-10.1); Chloride 107 mmol/L (98-107); Creatinine, Serum 0.82 mg/dL (0.55-1.02); EST Glomerular Filtration Rate 72 mL/min (>60); Est Glom Filt Rate - Afr Amer 87 mL/min (>60); Ferritin 32 ng/mL (8-252); Globulin 3.3 g/dL (2.2-4.2); Glucose 89 mg/dL (74-106); Iron 121 ug/dL (50-170); Potassium 4.2 mmol/L (3.5-5.1); Prealbumin 25.7 mg/dL (20.0-40.0); Protein, Total 6.4 g/dL (6.4-8.2); Sodium Level 137 mmol/L (136-145)
[2022-02-12 18:58] LABS: Vitamin D,25 Hydroxy 33.1 ng/mL
[2022-02-13 10:56] LABS: PTHIN 68.9 pg/mL (18.4-80.1)
[2022-02-14 10:25] LABS: H. Pylori Antibody (IgG) 0.95 (0.00-0.79)
== END | disposition home or self-care (01) ==
LOC: MFPLAB 16:34
PROVIDERS: PCP Family Medicine; Visit Provider Family Medicine
DX: E83.51 Hypocalcemia (principal); R63.4 Abnormal weight loss; D64.9 Anemia, unspecified; K21.9 Gastro-esophageal reflux disease without esophagitis
CPT/HCPCS: 36415; 80048; 80053; 82306; 82728; 83540; 83970; 84134; 85027; 85652; 86677

== ENCOUNTER → 2022-02-12 | Outpatient (REF) | payer MEDICARE, MEDICAID, SELFPAY ==
[2022-02-12 08:19] LABS: Hematocrit 33.9 % (40-54); Hemoglobin 10.9 g/dL (13.0-16.5); Mean Corp Hgb Conc 32.2 g/dL (32-36); Mean Corpuscular Hgb 31.5 pg (27.0-32.0); Mean Platelet Vol. 10.2 fl (6.2-12.0); Platelet Count 185 K/mm3 (150-450); RBC Distribution Width CV 13.8 % (11.6-14.6); RBC Distribution Width SD 49.7 fl (35.1-43.9); Red Blood Count 3.46 M/mm3 (4.6-6.2); White Blood Count 3.8 K/mm3 (4.4-11.0)
[2022-02-12 08:38] LABS: Anion Gap 5 (5-15); BUN 19 mg/dL (7-18); Calcium,Total 7.9 mg/dL (8.5-10.1); Chloride 110 mmol/L (98-107); Creatinine, Serum 0.76 mg/dL (0.70-1.30); EST Glomerular Filtration Rate 106 mL/min (>60); Est Glom Filt Rate - Afr Amer 128 mL/min (>60); Glucose 95 mg/dL (74-106); Potassium 4.3 mmol/L (3.5-5.1); Sodium Level 140 mmol/L (136-145)
== END ==
LOC: OLS.SWAL 05:00
PROVIDERS: Visit Provider Family Medicine
DX: I10 Essential (primary) hypertension (principal)
CPT/HCPCS: 36415; 80048; 85027

== ENCOUNTER → 2022-03-10 | Outpatient (REF) | payer MEDICARE, MEDICAID, SELFPAY ==
[2022-03-11 08:46] LABS: Color, Urine Yellow (Yellow); Glucose, Dipstick Normal (Normal); Ketone-Dipstick Negative (Negative); Leukocyte Esterase-Dipstick 500 /ul (Negative); Nitrite-Dipstick Positive (Negative); Occult Blood-Urine 50 /ul (Negative); Protein-Dipstick 30 mg/dl (Negative); Urine Bilirubin Dipstick Negative (Negative); Urine Clarity Cloudy (Clear); Urine Urobilinogen Normal (Normal)
== END ==
LOC: OLS.SWAL 16:00
PROVIDERS: PCP Family Medicine; Visit Provider Urology
DX: N39.0 Urinary tract infection, site not specified (principal)
CPT/HCPCS: 81002; 87077; 87086; 87088; 87186

== ENCOUNTER 2022-04-14 01:15 | Emergency (ER) | payer MEDICARE, MEDICAID, SELFPAY ==
[2022-04-14 01:18] VITALS: BP 108/76; PULSE 79; RESP 18; TEMP 36.9; TEMP 37.1; O2SAT 99; BMI 45.7
[2022-04-14 01:22] VITALS: BP 108/76; PULSE 74; RESP 17; TEMP 37.1; O2SAT 98
--- NOTE | 2022-04-14 02:19 | ED.RN ---
Patient states she does not have anyone to come and get her and cannot take a cab home. She is not on oxygen and lives in assisted living, not skilled. She has emergency contacts in her list, 2 daughters and a granddaughter, are listed. Will call them for ride upon discharge.
[2022-04-14 02:54] VITALS: O2SAT 98
[2022-04-14] MEDS: Ketorolac 15 MG/ML Vial IV (03:07)
[2022-04-14] MEDS: dexAMETHasone 10 MG/ML Vial IV (03:07)
[2022-04-14 03:35] LABS: Absolute Lymphocyte Count 0.59 X10^3/uL (0.83-4.51); Absolute Neutrophil Count 2.8 X10^3/uL (2.0-7.7); Basophil# 0.04 X10^3/uL; Eosinophils% 2.5 % (0-5); Hematocrit 38.6 % (37-47); Hemoglobin 12.3 g/dL (12.0-15.0); Lymphocyte # 0.59 X10^3/ul (0.83-4.51); Lymphocyte % 14.8 % (19-41); Mean Corp Hgb Conc 31.9 g/dL (32-36); Mean Corpuscular Hgb 32.2 pg (27.0-32.0); Mean Platelet Vol. 10.4 fl (6.2-12.0); Monocyte# 0.49 X10^3/uL; Monocyte% 12.3 % (0-10); NRBC Flagged by Analyzer 0 % (0-5); Neutrophil # 2.76 X10^3/uL (2.7-7.7); Neutrophil % 68.9 % (47-70); POSITIVE DIFFERENTIAL YES; Platelet Count 199 K/mm3 (150-450); RBC Distribution Width CV 13.4 % (11.6-14.6); RBC Distribution Width SD 50.1 fl (35.1-43.9); Red Blood Count 3.82 M/mm3 (4.2-5.4)
[2022-04-14 03:46] LABS: Differential Indicated SCAN CRITERIA MET
[2022-04-14 03:56] LABS: Anion Gap 5 (5-15); BUN 24 mg/dL (7-18); BUN/Creat Ratio 28.5 RATIO (10-20); Calcium,Total 8.6 mg/dL (8.5-10.1); Chloride 104 mmol/L (98-107); Creatinine, Serum 0.84 mg/dL (0.55-1.02); EST Glomerular Filtration Rate 70 mL/min (>60); Est Glom Filt Rate - Afr Amer 85 mL/min (>60); Estimated Creatinine Clearance 51.27 ml/min; Glucose 86 mg/dL (74-106); Potassium 5.3 mmol/L (3.5-5.1); Sodium Level 137 mmol/L (136-145)
--- NOTE | 2022-04-14 04:49 | EDS_ITS ---
HPI History of Present Illness Chief Complaint: General Illness Narrative Narrative: Patient is a 77-year-old female who reports history of neuropathy and chronic kidney disease who stays in assisted living. She states that she started developing headache muscle aches fever congestion and cough yesterday and tested positive for COVID this evening. She states that she is concerned because of the COVID diagnosis and secondary to this asked EMS to bring her in for evaluation. [facility] Medical History (Updated 04/14/22 @ 07:[address] Walter Nance, DO) Anxiety and depression Arthritis Back pain Bladder disease Carpal tunnel syndrome Cataracts, both eyes Chronic anticoagulation Chronic neuropathic pain Chronic pain following surgery or procedure Chronic UTI Closed left arm fracture Cystitis Depression Diabetes Diabetic neuropathy associated with type 2 diabetes mellitus DM II (diabetes mellitus, type II), controlled Facet arthropathy, lumbar FHx: cholecystectomy GERD (gastroesophageal reflux disease) GERD (gastroesophageal reflux disease) GI bleed Hematoma Hiatal hernia High cholesterol History of DVT (deep vein thrombosis) History of edema History of gallstones History of pain when walking History of stress test HLD (hyperlipidemia) Hx of peripheral neuropathy Hydronephrosis 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 Injury of head and neck Kidney stones Low iron Morbid obesity with BMI of 45.0-49.9, adult Neuropathy Non-smoker Non-smoker Normocytic anemia ROXIE (obstructive sleep apnea) Osteoarthritis Polycystic ovaries Pulmonary embolism Restless legs Segmental and somatic dysfunction of cervical region Segmental and somatic dysfunction of lumbar region Segmental and somatic dysfunction of pelvic region Segmental and somatic dysfunction of thoracic region Shortness of breath on exertion Uses wheelchair Walker as ambulation aid Wears dentures Wears hearing aid Home Medications cholecalciferol (vitamin D3) 25 mcg (1,000 unit) tablet (Vitamin D3) 1,000 unit PO DAILY vitamin 12/29/15 [History Last Taken 07/24/21] duloxetine 60 mg capsule,delayed release 90 mg PO DAILY depression 12/29/15 [History Last Taken 07/24/21] pravastatin 40 mg tablet 40 mg PO QHS cholesterol 08/05/18 [History Last Taken 07/23/21] fluticasone propionate 50 mcg/actuation nasal spray,suspension 2 spray NASAL DAILY allergies 03/18/19 [History Last Taken 07/24/21] primidone 50 mg tablet 100 mg PO TID tremors 03/18/19 [History Last Taken 12/10/21] simethicone 80 mg chewable tablet 80 mg PO TIDCM indigestion 03/18/19 [History Last Taken 07/24/21 12:00] mirabegron 50 mg tablet,extended release 24 hr 50 mg PO QHS bladder control 01/24/20 [History Last Taken 07/23/21] bupropion HCl 150 mg 24 hr tablet, extended release 150 mg PO DAILY DEPRESSION 08/09/20 [History Last Taken 12/10/21] aluminum-mag hydroxide-simethicone 400 mg-400 mg-40 mg/5 mL oral susp 30 ml PO Q4H PRN PRN GI DISTRESS 08/20/20 [History Last Taken 10/22/20] albuterol sulfate 2.5 mg/3 mL (0.083 %) solution for nebulization 2.5 mg (3 mL) inhalation Q2H PRN PRN Dyspnea, wheezing 08/22/20 [Rx Last Taken Unknown] ascorbic acid (vitamin C) 500 mg tablet 500 mg PO DAILY supplement 09/28/20 [History Last Taken 07/24/21] cyanocobalamin (vitamin B-12) 1,000 mcg/mL injection solution 1,000 mcg IM QMONTH supplement 10/23/20 [History Last Taken 08/24/21] ferrous sulfate 325 mg (65 mg iron) tablet 325 mg PO DAILY IRON 10/23/20 [History Last Taken 07/24/21] Probiotic 1 cap PO/SL DAILY Check with primary doctor 07/24/21 [History Last Taken 07/23/21] omeprazole 40 mg capsule,delayed release 40 mg PO DAILY Check with primary doctor 07/24/21 [History Last Taken 12/10/21] nystatin 100,000 unit/gram topical powder 1 applic topical TID PRN Skin Irritation 07/30/21 [History Last Taken Unknown] acetaminophen 325 mg tablet (Tylenol) 650 mg PO Q6H PRN PRN Pain Score 1-10/Temp > 100.7 F #1 TAB 08/14/21 [Rx Last Taken Unknown] furosemide 20 mg tablet 60 mg PO DAILY #0 tabs 08/14/21 [Rx Last Taken Unknown] oxybutynin chloride 5 mg tablet 5 mg PO DAILY 09/03/21 [History Last Taken 12/10/21] ondansetron HCl 8 mg tablet 8 mg PO Q8H PRN PRN Nausea 7 days #20 TABLETS 09/04/21 [Rx Last Taken Unknown] phenazopyridine 200 mg tablet (Pyridium) 200 mg PO TID PRN PRN Bladder Spasms 7 days #30 tabs 09/04/21 [Rx Last Taken Unknown] apixaban 5 mg tablet (Eliquis) 5 mg PO BID 09/30/21 [History Last Taken 11/06/21] divalproex 500 mg tablet,delayed release (Depakote) 600 mg PO BID 09/30/21 [History Last Taken 12/10/21] guaifenesin 10 ml PO/SL Q4H PRN PRN Cough 09/30/21 [History Last Taken Unknown] halobetasol propionate 0.05 % topical cream 0.05 applic topical BID 11/03/21 [History Last Taken Unknown] d-mannose 500 mg capsule 2,000 mg PO DAILY 12/05/21 [History Last Taken Unknown] polyethylene glycol 3350 17 gram oral powder packet (Miralax) 17 g PO PRN PRN Constipation 12/05/21 [History Last Taken Unknown] albuterol sulfate 90 mcg/actuation aerosol inhaler (Ventolin HFA) 1 - 2 puff inhalation Q4H PRN PRN Wheezing #1 device 04/14/22 [Rx Last Taken Unknown] albuterol sulfate 90 mcg/actuation aerosol inhaler (Ventolin HFA) 1 - 2 puff inhalation Q4H PRN PRN Wheezing #1 device 04/14/22 [Rx Last Taken Unknown] dexamethasone 6 mg tablet 6 mg PO DAILY 10 days #10 tabs 04/14/22 [Rx Last Taken Unknown] dexamethasone 6 mg tablet 6 mg PO DAILY 10 days #10 tabs 04/14/22 [Rx Last Taken Unknown] Allergy/AdvReac Type Severity Reaction Status Date / Time ampicillin [From Unasyn] Allergy Severe Blisters Verified 04/12/22 13:39 on tongue /throat difficulty breathing sore tongue/ warfarin sodium Allergy Severe Low red Verified 04/12/22 13:39 [From Coumadin] blood cells Family History Father Colon cancer Hypertension Mother Hypertension Surgical History (System 04/12/22 @ 13:39 by Karon Richmond) H/O cardiac catheterization History of carpal tunnel surgery History of cholecystectomy History of cystoscopy History of embolic filter insertion History of embolic filter insertion History of gastric bypass History of hysterectomy Hx of cystoscopy Hx of cystoscopy S/P hysterectomy Total knee replacement status Social History (System 04/12/22 @ 13:39 by Karon Richmond) Smoking Status: Never smoker alcohol intake: current alcohol intake frequency: holidays/special occasions only substance use type: does not use what type of physical activity do you participate in: walking and aerobics frequency: 1-2 times per week ROS ROS ED Constitutional Constitutional ED: Reports chills and fever(s) ENT ENT ED: Reports rhinorrhea and sore throat Cardiovascular Cardiovascular: Denies chest pain Respiratory/Chest Respiratory/Chest: Reports cough and dyspnea Gastrointestinal Gastrointestinal: Reports nausea; Denies abdominal pain, diarrhea or vomiting Genitourinary Genitourinary ED: Denies dysuria Musculoskeletal Musculoskeletal: Reports myalgias Integumentary Denies rash Neurologic Neurologic: Reports headache(s) Hematologic/Lymphatic Hematologic/Lymphatic: Denies easy bleeding or easy bruising EXAM Physical Exam Const Vital Signs: 04/14/22 01:18 04/14/22 01:18 04/14/22 01:23 Temperature 98.4 F 98.7 F Temperature Source Temporal Temporal Pulse Rate 79 Respiratory Rate 18 Respiratory Effort Normal Respiratory Pattern Normal Blood Pressure 108/76 108/76 Blood Pressure Mean 86 86 Pulse Ox 99 Oxygen Delivery Method Room Air 04/14/22 01:22 04/14/22 04:58 Temperature 98.7 F 98.2 F Temperature Source Temporal Temporal Pulse Rate 74 74 Respiratory Rate 17 17 Respiratory Effort Respiratory Pattern Blood Pressure 108/76 Blood Pressure Mean 86 Pulse Ox 98 98 Oxygen Delivery Method Room Air Room Air Positive well nourished, well developed and obese General Appearance ED: well developed Nutritional Appearance: obese HEENT Reports moist mucous membranes HEENT Narrative: Cobblestoning the posterior pharynx consistent with sinus drainage but no airway edema or compromise Eyes PERRL and EOMs intact bilaterally Neck supple and no JVD Neck Narrative: Positive anterior cervical lymphadenopathy no meningeal signs noted Chest Wall palpation of chest normal Resp normal respiratory effort Resp Narrative: Breath sounds are diminished throughout with faint expiratory wheeze but otherwise no nasal flaring retractions tachypnea or accessory muscle use Cardio regular rate and regular rhythm GI normal to inspection, nondistended, normoactive bowel sounds, non-tender and non-distended Auscultation: normoactive bowel sounds Palpation: soft Extremity normal to inspection Extremity Narrative: No asymmetric edema no pitting edema negative Homans' sign bilaterally Neuro oriented x3 and CN's II-XII intact bilaterally Sensorium / Orientation: alert Psych Psych Narrative: Patient has a nervous/anxious affect Skin no rashes or lesions noted MDM MDM MDM Narrative Medical decision making narrative: Patient presented to the ER in no acute respiratory distress. She had been recently diagnosed with COVID and her physical exam and review of systems is consistent with this so I felt no need for repeat testing. At this time the patient is not hypoxic with ambulation she only dropped down to approximately 92% on room air therefore I do not feel there is need for further evaluation as it would not change disposition since patient is not requiring supplemental oxygen or showing signs of respiratory distress. Patient did complain of headache so she was given IV fluids Decadron and Toradol and had resolution of that. She remained in no acute respiratory distress and therefore I feel safe for discharge back to the senior care. We discussed starting antivirals but patient does not want to do that at this time and therefore I will place her on steroids to reduce inflammation but as she is not in respiratory distress or requiring submental oxygen can be discharged home. Lab Data Attestation: I reviewed the patient's lab results. Labs: Laboratory Results - last 24 hr 04/14/22 04/14/22 03:06 03:06 WBC 4.0 L RBC 3.82 L Hgb 12.3 Hct 38.6 MCV 101.0 H MCH 32.2 H MCHC 31.9 L RDW Std Deviation 50.1 H RDW Coeff of Chani 13.4 Plt Count 199 MPV 10.4 Immature Gran % (Auto) 0.500 Neut % (Auto) 68.9 Lymph % (Auto) 14.8 L [place] % (Auto) 12.3 H Eos % (Auto) 2.5 Baso % (Auto) 1.0 Absolute Neuts (auto) 2.8 Absolute Lymphs (auto) 0.59 L Nucleated RBC % 0 Diff Path Review May foll Macrocytosis RARE Sodium 137 Potassium 5.3 H Chloride 104 Carbon Dioxide 28.0 Anion Gap 5 BUN 24 H Creatinine 0.84 Estim Creat Clear Calc 51.27 Est GFR (MDRD) Af Amer 85 Est GFR (MDRD) Non-Af 70 BUN/Creatinine Ratio 28.5 H Glucose 86 Calcium 8.6 Discharge Plan Triage Chief Complaint: General Illness ED Provider: Walter Nance Dx/Rx/DC Orders Clinical Impression: COVID-19, Diabetes, Peripheral neuropathy Instructions: Coronavirus Disease 2019 (COVID-19): Caring for Yourself or Others Prescriptions: New albuterol sulfate [Ventolin HFA] 90 mcg/actuation HFA aerosol inhaler 1 - 2 puff inhalation Q4H PRN PRN (Reason: Wheezing) Qty: 1 0RF dexamethasone 6 mg tablet 6 mg PO DAILY 10 Days Qty: 10 0RF albuterol sulfate [Ventolin HFA] 90 mcg/actuation HFA aerosol inhaler 1 - 2 puff inhalation Q4H PRN PRN (Reason: Wheezing) Qty: 1 0RF dexamethasone 6 mg tablet 6 mg PO DAILY 10 Days Qty: 10 0RF No Action cholecalciferol (vitamin D3) [Vitamin D3] 1,000 UNIT tablet 1,000 unit PO DAILY Label Comments: vitamin duloxetine 60 MG capsule 90 mg PO DAILY Label Comments: DEPRESSION/ANXIETY pravastatin 40 MG tablet 40 mg PO QHS primidone 50 MG tablet 100 mg PO TID fluticasone propionate 1 SPRAY spray,suspension 2 spray NASAL DAILY simethicone 80 MG tablet 80 mg PO TIDCM mirabegron 50 MG tablet extended release 24 hr 50 mg PO QHS bupropion HCl 150 MG tablet extended release 24 hr 150 mg PO DAILY alum-mag hydroxide-simeth 355 ML suspension 30 ml PO Q4H PRN PRN (Reason: GI DISTRESS) albuterol sulfate 2.5 MG/3 ML solution for nebulization 2.5 mg INHALATION Q2H PRN PRN (Reason: Dyspnea, wheezing) 0RF ascorbic acid (vitamin C) 500 MG tablet 500 mg PO DAILY cyanocobalamin (vitamin B-12) 1,000 mcg/mL Solution 1,000 mcg IM QMONTH Rx Instructions: states last had in August is due the 4th of each month ferrous sulfate 325 mg (65 mg iron) Tablet 325 mg PO DAILY omeprazole 40 mg capsule,delayed release(DR/EC) 40 mg PO DAILY Probiotic 1 cap PO/SL DAILY nystatin 100,000 unit/gram Powder 1 applic TOPICAL TID PRN (Reason: Skin Irritation) acetaminophen [Tylenol] 325 mg Tablet 650 mg PO Q6H PRN PRN (Reason: Pain Score 1-10/Temp > 100.7 F) Qty: 1 0RF furosemide 20 mg Tablet 60 mg PO DAILY Qty: 0 0RF oxybutynin chloride 5 mg Tablet 5 mg PO DAILY ondansetron HCl 8 MG tablet 8 mg PO Q8H PRN PRN (Reason: Nausea) 7 Days Qty: 20 0RF phenazopyridine [Pyridium] 200 MG tablet 200 mg PO TID PRN PRN (Reason: Bladder Spasms) 7 Days Qty: 30 0RF divalproex [Depakote] 500 mg Tablet,Delayed Release (Dr/Ec) 600 mg PO BID Eliquis 5 mg Tablet 5 mg PO BID guaifenesin 10 ml PO/SL Q4H PRN PRN (Reason: Cough) halobetasol propionate 0.05 % cream 0.05 applic TOPICAL BID polyethylene glycol 3350 [Miralax] 17 gram Powder In Packet 17 g PO PRN PRN (Reason: Constipation) d-mannose 500 mg Capsule 2,000 mg PO DAILY Primary Care Provider: Gonzales Pinto Referrals: Gonzales Pinto MD [Primary Care Provider] - Disposition Disposition: Home, Self Care Discharge Date/Time: 04/14/22 06:04
[2022-04-14 04:57] LABS: Macrocytosis RARE
[2022-04-14 04:58] VITALS: PULSE 74; RESP 17; TEMP 36.8; O2SAT 98
[2022-04-14] MEDS: Acetaminophen 500 MG Tablet 1000 MG PO (05:05)
[2022-04-15 12:13] LABS: Pathologist Review Reviewed
== END 2022-04-14 06:04 | disposition home or self-care (01) ==
PROVIDERS: Emergency Provider Emergency Medicine; PCP Family Medicine; Visit Provider Emergency Medicine
DX: U07.1 COVID-19 (principal); E11.42 Type 2 diabetes mellitus with diabetic polyneuropathy; K21.9 Gastro-esophageal reflux disease without esophagitis; G47.33 Obstructive sleep apnea (adult) (pediatric); Z79.01 Long term (current) use of anticoagulants; E78.00 Pure hypercholesterolemia, unspecified; F32.A Depression, unspecified; F41.9 Anxiety disorder, unspecified
CPT/HCPCS: 80048; 85025; 96361; 96374; 96375; 99285; J7040; A4216

== ENCOUNTER → 2022-04-16 | Outpatient (REF) | payer MEDICARE, MEDICAID, SELFPAY | LOC: OLS.SWAL 06:59 | PROVIDERS: PCP Family Medicine | DX: N39.0 Urinary tract infection, site not specified (principal) | CPT/HCPCS: 87077; 87086; 87088; 87186 ==

== ENCOUNTER → 2022-04-26 | Outpatient (REF) | payer MEDICARE, MEDICAID, SELFPAY ==
[2022-04-30 16:22] LABS: H. PYLORI STOOL AG Negative (Negative)
== END ==
LOC: OLS.SWAL 12:45
PROVIDERS: PCP Family Medicine; Visit Provider Internal Medicine
DX: R10.13 Epigastric pain (principal)
CPT/HCPCS: 87338

== ENCOUNTER → 2022-05-12 | Outpatient (REF) | payer MEDICARE, MEDICAID, SELFPAY ==
[2022-05-13 08:42] LABS: Color, Urine Yellow (Yellow); Glucose, Dipstick Normal (Normal); Ketone-Dipstick Negative (Negative); Leukocyte Esterase-Dipstick 500 /ul (Negative); Nitrite-Dipstick Positive (Negative); Occult Blood-Urine 10 /ul (Negative); Protein-Dipstick 15 mg/dl (Negative); Specific Gravity, Urine 1.015 (1.002-1.030); Urine Bilirubin Dipstick Negative (Negative); Urine Clarity Sl. Cloudy (Clear); Urine Urobilinogen Normal (Normal); Urine pH 6.5 (5.0 - 8.0)
== END ==
LOC: OLS.SWAL 14:00
PROVIDERS: PCP Family Medicine
DX: N39.0 Urinary tract infection, site not specified (principal)
CPT/HCPCS: 81002; 87077; 87086; 87088; 87186

== ENCOUNTER → 2022-05-29 | Outpatient (REF) | payer MEDICARE, MEDICAID, SELFPAY ==
[2022-05-30 09:03] LABS: Color, Urine Yellow (Yellow); Glucose, Dipstick Normal (Normal); Ketone-Dipstick 5 mg/dl (Negative); Leukocyte Esterase-Dipstick 500 /ul (Negative); Nitrite-Dipstick Positive (Negative); Occult Blood-Urine 10 /ul (Negative); Protein-Dipstick 15 mg/dl (Negative); Specific Gravity, Urine 1.015 (1.002-1.030); Urine Bilirubin Dipstick Negative (Negative); Urine Clarity Cloudy (Clear); Urine Urobilinogen Normal (Normal)
== END ==
LOC: OLS.SWAL 17:25
PROVIDERS: PCP Family Medicine; Visit Provider Family Medicine
DX: N39.0 Urinary tract infection, site not specified (principal)
CPT/HCPCS: 81002; 87077; 87086; 87088; 87186

== ENCOUNTER 2022-06-24 22:44 | Emergency (ER) | payer MEDICARE, MEDICAID, SELFPAY ==
[2022-06-24 22:44] VITALS: BP 116/79; PULSE 91; RESP 19; TEMP 36.3; O2SAT 98; BMI 48.7
[2022-06-24 22:47] VITALS: BP 116/69; PULSE 86; RESP 19; TEMP 36.4; O2SAT 98
--- NOTE | 2022-06-24 23:12 | ED.VIS.GI ---
HPI HPI - GI History of Present Illness Chief Complaint: Abd Pain Detail of Chief Complaint: Lower Informant: patient Abdominal Pain/Flank Pain Onset: Days Context: Gradual Onset Location: Diffuse and LLQ Current Severity: Mild Maximum Severity: Mild Nausea/Vomiting/Emesis GI Symptom: Negative for Nausea or Vomiting Diarrhea/Melena/Hematochezia GI Symptom: Negative for Diarrhea, Melena or Hematochezia Associated Symptoms Associated Symptoms: Positive for Dysuria; Negative for Frequency, Hematuria or Urgency Narrative Narrative: 77-year-old female history of prior cholecystectomy and hysterectomy. She is also diabetic. Recently treated by her urologist for UTI with Keflex. States she is having lower abdominal pain. Denies nausea, vomiting or diarrhea. No constipation. No fever or chills. Also complaining of a cough. States she says dysuria. Denies gross hematuria. Prior similar symptoms: Yes Recent Illness/Hospitalization: No PFSH PFSH Medical History Anxiety and depression Arthritis Back pain Bladder disease Carpal tunnel syndrome Cataracts, both eyes Chronic anticoagulation Chronic neuropathic pain Chronic pain following surgery or procedure Chronic UTI Closed left arm fracture Cystitis Depression Diabetes Diabetic neuropathy associated with type 2 diabetes mellitus DM II (diabetes mellitus, type II), controlled Facet arthropathy, lumbar FHx: cholecystectomy GERD (gastroesophageal reflux disease) GERD (gastroesophageal reflux disease) GI bleed Hematoma Hiatal hernia High cholesterol History of DVT (deep vein thrombosis) History of edema History of gallstones History of pain when walking History of stress test HLD (hyperlipidemia) Hx of peripheral neuropathy Hydronephrosis 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 Injury of head and neck Kidney stones Low iron Morbid obesity with BMI of 45.0-49.9, adult Neuropathy Non-smoker Non-smoker Normocytic anemia ROXIE (obstructive sleep apnea) Osteoarthritis Polycystic ovaries Pulmonary embolism Restless legs Segmental and somatic dysfunction of cervical region Segmental and somatic dysfunction of lumbar region Segmental and somatic dysfunction of pelvic region Segmental and somatic dysfunction of thoracic region Shortness of breath on exertion Uses wheelchair Walker as ambulation aid Wears dentures Wears hearing aid Home Medications cholecalciferol (vitamin D3) 25 mcg (1,000 unit) tablet (Vitamin D3) 1,000 unit PO DAILY vitamin 12/29/15 [History Last Taken 07/24/21] duloxetine 60 mg capsule,delayed release 90 mg PO DAILY depression 12/29/15 [History Last Taken 07/24/21] pravastatin 40 mg tablet 40 mg PO QHS cholesterol 08/05/18 [History Last Taken 07/23/21] fluticasone propionate 50 mcg/actuation nasal spray,suspension 2 spray NASAL DAILY allergies 03/18/19 [History Last Taken 07/24/21] primidone 50 mg tablet 100 mg PO TID tremors 03/18/19 [History Last Taken 12/10/21] simethicone 80 mg chewable tablet 80 mg PO TIDCM indigestion 03/18/19 [History Last Taken 07/24/21 12:00] mirabegron 50 mg tablet,extended release 24 hr 50 mg PO QHS bladder control 01/24/20 [History Last Taken 07/23/21] bupropion HCl 150 mg 24 hr tablet, extended release 150 mg PO DAILY DEPRESSION 08/09/20 [History Last Taken 12/10/21] aluminum-mag hydroxide-simethicone 400 mg-400 mg-40 mg/5 mL oral susp 30 ml PO Q4H PRN PRN GI DISTRESS 08/20/20 [History Last Taken 10/22/20] albuterol sulfate 2.5 mg/3 mL (0.083 %) solution for nebulization 2.5 mg (3 mL) inhalation Q2H PRN PRN Dyspnea, wheezing 08/22/20 [Rx Last Taken Unknown] ascorbic acid (vitamin C) 500 mg tablet 500 mg PO DAILY supplement 09/28/20 [History Last Taken 07/24/21] cyanocobalamin (vitamin B-12) 1,000 mcg/mL injection solution 1,000 mcg IM QMONTH supplement 10/23/20 [History Last Taken 08/24/21] ferrous sulfate 325 mg (65 mg iron) tablet 325 mg PO DAILY IRON 10/23/20 [History Last Taken 07/24/21] Probiotic 1 cap PO/SL DAILY Check with primary doctor 07/24/21 [History Last Taken 07/23/21] omeprazole 40 mg capsule,delayed release 40 mg PO DAILY Check with primary doctor 07/24/21 [History Last Taken 12/10/21] nystatin 100,000 unit/gram topical powder 1 applic topical TID PRN Skin Irritation 07/30/21 [History Last Taken Unknown] acetaminophen 325 mg tablet (Tylenol) 650 mg PO Q6H PRN PRN Pain Score 1-10/Temp > 100.7 F #1 TAB 08/14/21 [Rx Last Taken Unknown] furosemide 20 mg tablet 60 mg PO DAILY #0 tabs 08/14/21 [Rx Last Taken Unknown] oxybutynin chloride 5 mg tablet 5 mg PO DAILY 09/03/21 [History Last Taken 12/10/21] ondansetron HCl 8 mg tablet 8 mg PO Q8H PRN PRN Nausea 7 days #20 TABLETS 09/04/21 [Rx Last Taken Unknown] phenazopyridine 200 mg tablet (Pyridium) 200 mg PO TID PRN PRN Bladder Spasms 7 days #30 tabs 09/04/21 [Rx Last Taken Unknown] apixaban 5 mg tablet (Eliquis) 5 mg PO BID 09/30/21 [History Last Taken 11/06/21] divalproex 500 mg tablet,delayed release (Depakote) 600 mg PO BID 09/30/21 [History Last Taken 12/10/21] guaifenesin 10 ml PO/SL Q4H PRN PRN Cough 09/30/21 [History Last Taken Unknown] halobetasol propionate 0.05 % topical cream 0.05 applic topical BID 11/03/21 [History Last Taken Unknown] d-mannose 500 mg capsule 2,000 mg PO DAILY 12/05/21 [History Last Taken Unknown] polyethylene glycol 3350 17 gram oral powder packet (Miralax) 17 g PO PRN PRN Constipation 12/05/21 [History Last Taken Unknown] albuterol sulfate 90 mcg/actuation aerosol inhaler (Ventolin HFA) 1 - 2 puff inhalation Q4H PRN PRN Wheezing #1 device 04/14/22 [Rx Last Taken Unknown] albuterol sulfate 90 mcg/actuation aerosol inhaler (Ventolin HFA) 1 - 2 puff inhalation Q4H PRN PRN Wheezing #1 device 04/14/22 [Rx Last Taken Unknown] dexamethasone 6 mg tablet 6 mg PO DAILY 10 days #10 tabs 04/14/22 [Rx Last Taken Unknown] dexamethasone 6 mg tablet 6 mg PO DAILY 10 days #10 tabs 04/14/22 [Rx Last Taken Unknown] nitrofurantoin monohydrate/macrocrystals 100 mg capsule (Macrobid) 100 mg PO Q12H 7 days #14 caps 06/25/22 [Rx Last Taken Unknown] Allergy/AdvReac Type Severity Reaction Status Date / Time ampicillin [From Unasyn] Allergy Severe Blisters Verified 06/24/22 22:47 on tongue /throat difficulty breathing sore tongue/ warfarin sodium Allergy Severe Low red Verified 06/24/22 22:47 [From Coumadin] blood cells Family History Father Colon cancer Hypertension Mother Hypertension Surgical History H/O cardiac catheterization History of carpal tunnel surgery History of cholecystectomy History of cystoscopy History of embolic filter insertion History of embolic filter insertion History of gastric bypass History of hysterectomy Hx of cystoscopy Hx of cystoscopy S/P hysterectomy Total knee replacement status Social History Smoking Status: Never smoker alcohol intake: current alcohol intake frequency: holidays/special occasions only substance use type: does not use what type of physical activity do you participate in: walking and aerobics frequency: 1-2 times per week ROS ROS ED ROS Narrative Abdominal pain. Dysuria. Review of Systems ROS Unobtainable: Denies due to encephalopathy Constitutional Constitutional ED: Denies chills or fever(s) Cardiovascular Cardiovascular: Denies chest pain or palpitations Respiratory/Chest Respiratory/Chest: Reports cough Gastrointestinal Gastrointestinal: Reports abdominal pain; Denies constipation, diarrhea, melena, nausea or vomiting Genitourinary Genitourinary ED: Reports dysuria Musculoskeletal Musculoskeletal: Denies arthralgias Integumentary Denies abscess Neurologic Neurologic: Denies headache(s) Psychiatric Psychiatric: Denies anxiety Endocrine Endocrinology: Denies polydipsia Hematologic/Lymphatic Hematologic/Lymphatic: Denies easy bleeding Allergic/Immunologic Allergic/Immunologic ED: Denies mouth swelling or tongue swelling EXAM Physical Exam Narrative Exam Narrative: 77-year-old female no acute distress. Vital signs stable afebrile. Does not look septic or toxic. HEENT exam unremarkable. Lungs are clear. Heart regular rhythm rate about 90 no murmur. Abdomen is soft nondistended normal bowel sounds no peritoneal signs. She does have left lower and suprapubic tenderness. There is no rebound, guarding rigidity. No distention. No hernia or mass. Well-healed surgical scars. No pulsatile mass. No peritoneal signs. Moving all 4 extremities. Neurologically she is awake and alert with no focal motor deficits. Const Vital Signs: 06/24/22 22:44 06/24/22 22:47 06/25/22 00:44 Temperature 97.4 F L 97.5 F L Temperature Source Temporal Temporal Pulse Rate 91 86 69 Respiratory Rate 19 H 19 H 15 Blood Pressure 116/79 116/69 112/62 Blood Pressure Mean 91 84 78 Pulse Ox 98 98 97 Oxygen Delivery Method Room Air Room Air Room Air Positive well nourished, well developed and obese; Negative for cachectic, contractures or unkempt General Appearance ED: well developed; Negative for unkempt, cachectic, contractures or pallor Nutritional Appearance: obese; Negative for cachectic HEENT Reports moist mucous membranes; Denies dry mucous membranes normocephalic and atraumatic; Negative for trauma or tenderness Mouth ED: No dry mucous membranes Mouth: No dry mucous membranes Eyes PERRL and EOMs intact bilaterally General Eye ED: Negative for pale conjunctiva or scleral icterus Neck no lymphadenopathy, supple and no JVD General: Negative for tenderness Carotids: Negative for other Resp normal respiratory effort and clear to auscultation bilaterally Effort and Inspection: Negative for respiratory distress Auscultation: Negative for rales, rhonchi or wheezes Cardio regular rate, regular rhythm, S1 normal heart sound, S2 normal heart sound and no murmurs Rate: Negative for bradycardia or tachycardic Rhythm: Negative for abnormal rhythm GI non-distended and no masses; Negative for non-tender Inspection: Negative for abdominal distention Auscultation: normoactive bowel sounds Palpation: soft and tender; Negative for guarding, rigid, hernia, mass, pulsatile mass or rebound tenderness present Back/Spine no CVA tenderness General Back: Negative for CVA tenderness Cervical Spine: Negative for cervical spine tenderness Thoracic Spine / Upper Back: Negative for thoracic spinal tenderness Lumbar Spine / Lower Back: Negative for lumbar spinal tenderness Coccyx: Negative for other Extremity full ROM General Extremety ED: Negative for edema or tenderness General Extremity: Negative for edema Neuro CN's II-XII intact bilaterally and moves all extremities Sensorium / Orientation: alert, oriented to person, oriented to place and oriented to time Motor Exam: strength 5/5 throughout Psych mental status grossly normal and thought process normal Appearance: Negative for unkempt Attitude: No agitated Mood & Affect: anxious; Negative for depressed Skin no wounds General Skin Exam: Negative for jaundice or pallor Lesions: no lesions Rashes: no rashes Trauma: Negative for abrasion Nails: Negative for discolored MDM MDM MDM Narrative Medical decision making narrative: 77-year-old female from extended-care facility assisted living where she is now complaining of lower abdominal pain. Recently treated for UTI. CAT scan and labs being obtained. We will straight catheter for urinalysis. Differential would include diverticulitis versus urinary tract infection versus other etiologies. Exam is benign. She is only mildly tender. She did request something for pain she will be treated with IV morphine and Zofran. Repeat exam patient doing well at 2:25 AM. Exam benign she and I went over her test results. She is comfortable being discharged back to the assisted living facility. A urine culture will be sent. She will be started on Macrobid for 1 week. Given a dose here. And sent home with a prescription. Lab Data Attestation: I reviewed the patient's lab results. Lab results narrative: CBC unremarkable. White count 4.6. H&H 12.6 and 40. Chemistries show a gap of 2. Normal BUN of 16 creatinine 0.7. Liver enzymes unremarkable. Lipase of only 65. Urinalysis shows 10-25 white cells 3+ bacteria positive nitrites.Epithelial cells. No red blood cells. A culture will be sent this will be treated as a UTI. CT abdomen pelvis shows chronic changes. No acute process. Read by the radiologist. Reviewed by me. Labs: Laboratory Results - last 24 hr 06/24/22 06/24/22 06/24/22 23:30 23:30 23:30 WBC 4.6 RBC 3.95 L Hgb 12.6 Hct 40.1 MCV 101.5 H MCH 31.9 MCHC 31.4 L RDW Std Deviation 50.2 H RDW Coeff of Chani 13.4 Plt Count 208 MPV 10.7 Immature Gran % (Auto) 0.400 Neut % (Auto) 57.1 Lymph % (Auto) 27.6 Dickinson % (Auto) 11.4 H Eos % (Auto) 2.6 Baso % (Auto) 0.9 Absolute Neuts (auto) 2.7 Absolute Lymphs (auto) 1.28 Nucleated RBC % 0 Sodium 139 Potassium 4.5 Chloride 111 H Carbon Dioxide 26.0 Anion Gap 2 L BUN 16 Creatinine 0.74 Estim Creat Clear Calc 43.07 Est GFR (MDRD) Af Amer 98 Est GFR (MDRD) Non-Af 81 BUN/Creatinine Ratio 21.6 H Glucose 91 Calcium 8.0 L Total Bilirubin 0.30 AST 27 ALT 23 Alkaline Phosphatase 93 Total Protein 6.2 L Albumin 3.0 L Globulin 3.2 Albumin/Globulin Ratio 0.9 Lipase 65 L Urine Color Yellow Urine Clarity Clear Urine pH 5.0 Ur Specific [place] 1.020 Urine Protein 15 H Urine Glucose (UA) Normal Urine Ketones Negative Urine Occult Blood Negative Urine Nitrite Positive H Urine Bilirubin Negative Urine Urobilinogen Normal Ur Leukocyte Esterase 100 H Urine RBC 0 SEEN Urine WBC 10-25 SEEN Ur Squamous Epith Cells 0 SEEN Urine Bacteria 3+ Urine Mucus 0 SEEN Radiography Diagnostic Testing: Clinical Impression(s) from Imaging Studies Abdomen/Pelvis CT 06/25/22 23:11 IMPRESSION: Nonobstructive stone in the right kidney measures 4 mm. IVC filter in good position. Electronically Signed: Padmini Ledezma MD at 1:34 EST Reading Location ID and State: [facility] / [place] Tel , Service support , Discharge Plan Triage Chief Complaint: Abd Pain ED Provider: Rogelio Quiroz Dx/Rx/DC Orders Clinical Impression: Abdominal pain, Acute UTI Instructions: ED Cystitis Female Adult Prescriptions: New nitrofurantoin monohyd/m-cryst [Macrobid] 100 mg capsule 100 mg PO Q12H 7 Days Qty: 14 0RF Rx Instructions: must administer with a meal/food No Action cholecalciferol (vitamin D3) [Vitamin D3] 1,000 UNIT tablet 1,000 unit PO DAILY Label Comments: vitamin duloxetine 60 MG capsule 90 mg PO DAILY Label Comments: DEPRESSION/ANXIETY pravastatin 40 MG tablet 40 mg PO QHS primidone 50 MG tablet 100 mg PO TID fluticasone propionate 1 SPRAY spray,suspension 2 spray NASAL DAILY simethicone 80 MG tablet 80 mg PO TIDCM mirabegron 50 MG tablet extended release 24 hr 50 mg PO QHS bupropion HCl 150 MG tablet extended release 24 hr 150 mg PO DAILY alum-mag hydroxide-simeth 355 ML suspension 30 ml PO Q4H PRN PRN (Reason: GI DISTRESS) albuterol sulfate 2.5 MG/3 ML solution for nebulization 2.5 mg INHALATION Q2H PRN PRN (Reason: Dyspnea, wheezing) 0RF ascorbic acid (vitamin C) 500 MG tablet 500 mg PO DAILY cyanocobalamin (vitamin B-12) 1,000 mcg/mL Solution 1,000 mcg IM QMONTH Rx Instructions: states last had in August is due the 4th of each month ferrous sulfate 325 mg (65 mg iron) Tablet 325 mg PO DAILY omeprazole 40 mg capsule,delayed release(DR/EC) 40 mg PO DAILY Probiotic 1 cap PO/SL DAILY nystatin 100,000 unit/gram Powder 1 applic TOPICAL TID PRN (Reason: Skin Irritation) acetaminophen [Tylenol] 325 mg Tablet 650 mg PO Q6H PRN PRN (Reason: Pain Score 1-10/Temp > 100.7 F) Qty: 1 0RF furosemide 20 mg Tablet 60 mg PO DAILY Qty: 0 0RF oxybutynin chloride 5 mg Tablet 5 mg PO DAILY ondansetron HCl 8 MG tablet 8 mg PO Q8H PRN PRN (Reason: Nausea) 7 Days Qty: 20 0RF phenazopyridine [Pyridium] 200 MG tablet 200 mg PO TID PRN PRN (Reason: Bladder Spasms) 7 Days Qty: 30 0RF divalproex [Depakote] 500 mg Tablet,Delayed Release (Dr/Ec) 600 mg PO BID Eliquis 5 mg Tablet 5 mg PO BID guaifenesin 10 ml PO/SL Q4H PRN PRN (Reason: Cough) halobetasol propionate 0.05 % cream 0.05 applic TOPICAL BID polyethylene glycol 3350 [Miralax] 17 gram Powder In Packet 17 g PO PRN PRN (Reason: Constipation) d-mannose 500 mg Capsule 2,000 mg PO DAILY albuterol sulfate [Ventolin HFA] 90 mcg/actuation HFA aerosol inhaler 1 - 2 puff inhalation Q4H PRN PRN (Reason: Wheezing) Qty: 1 0RF dexamethasone 6 mg tablet 6 mg PO DAILY 10 Days Qty: 10 0RF albuterol sulfate [Ventolin HFA] 90 mcg/actuation HFA aerosol inhaler 1 - 2 puff inhalation Q4H PRN PRN (Reason: Wheezing) Qty: 1 0RF dexamethasone 6 mg tablet 6 mg PO DAILY 10 Days Qty: 10 0RF Primary Care Provider: Gonzales Pinto Referrals: Gonzales Pinto MD [Primary Care Provider] - 1 Week if not improving Activity Restrictions/Additional Instructions: CAT scan labs were unremarkable other than what appears to be a urinary tract infection. A urine culture was sent. She will be started on the antibiotic Macrobid 1 pill twice a day for 1 week. Follow-up with your doctor if not improving. Return if worse. The prescription will need to be filled. Disposition Disposition: Home, Self Care
[2022-06-24 23:47] LABS: Mucous, Urine 0 SEEN /hpf (<or=2+); Red Blood Cells-Urine 0 SEEN /hpf (0-5); Squamous Epithelial Cells - UA 0 SEEN /hpf (5-10)
[2022-06-24 23:49] LABS: Absolute Lymphocyte Count 1.28 X10^3/uL (0.83-4.51); Absolute Neutrophil Count 2.7 X10^3/uL (2.0-7.7); Basophil# 0.04 X10^3/uL; Basophil% 0.9 % (0-1); Eosinophil# 0.12 X10^3/uL; Eosinophils% 2.6 % (0-5); Hematocrit 40.1 % (37-47); Hemoglobin 12.6 g/dL (12.0-15.0); Lymphocyte # 1.28 X10^3/ul (0.83-4.51); Lymphocyte % 27.6 % (19-41); Mean Corp Hgb Conc 31.4 g/dL (32-36); Mean Corpuscular Hgb 31.9 pg (27.0-32.0); Mean Corpuscular Volume 101.5 fL (81-99); Mean Platelet Vol. 10.7 fl (6.2-12.0); Monocyte# 0.53 X10^3/uL; Monocyte% 11.4 % (0-10); NRBC Flagged by Analyzer 0 % (0-5); Neutrophil # 2.65 X10^3/uL (2.7-7.7); Neutrophil % 57.1 % (47-70); Platelet Count 208 K/mm3 (150-450); RBC Distribution Width CV 13.4 % (11.6-14.6); RBC Distribution Width SD 50.2 fl (35.1-43.9); Red Blood Count 3.95 M/mm3 (4.2-5.4); White Blood Count 4.6 K/mm3 (4.4-11.0)
[2022-06-24 23:56] LABS: Color, Urine Yellow (Yellow); Glucose, Dipstick Normal (Normal); Ketone-Dipstick Negative (Negative); Leukocyte Esterase-Dipstick 100 /ul (Negative); Nitrite-Dipstick Positive (Negative); Occult Blood-Urine Negative /ul (Negative); Protein-Dipstick 15 mg/dl (Negative); Urine Bilirubin Dipstick Negative (Negative); Urine Clarity Clear (Clear); Urine Urobilinogen Normal (Normal)
[2022-06-25 00:11] LABS: ALB/GLOB Ratio 0.9 RATIO (0.9-2.4); AST(SGOT) 27 U/L (15-37); Alanine Aminotransfer ALT/SGPT 23 U/L (13-56); Alkaline Phosphatase 93 U/L (45-117); Anion Gap 2 (5-15); BUN 16 mg/dL (7-18); BUN/Creat Ratio 21.6 RATIO (10-20); Chloride 111 mmol/L (98-107); Creatinine, Serum 0.74 mg/dL (0.55-1.02); EST Glomerular Filtration Rate 81 mL/min (>60); Est Glom Filt Rate - Afr Amer 98 mL/min (>60); Estimated Creatinine Clearance 43.07 ml/min; Globulin 3.2 g/dL (2.2-4.2); Glucose 91 mg/dL (74-106); Lipase 65 U/L (73-393); Potassium 4.5 mmol/L (3.5-5.1); Protein, Total 6.2 g/dL (6.4-8.2); Sodium Level 139 mmol/L (136-145)
[2022-06-25 00:12] LABS: Bacteria 3+ /hpf (None Seen); White Blood Cells 10-25 SEEN /hpf (0-5)
[2022-06-25] MEDS: Morphine 4 MG/ML Syringe IV (00:41)
[2022-06-25] MEDS: Ondansetron 4 MG/2 ML Vial IV (00:41)
[2022-06-25 00:44] VITALS: BP 112/62; PULSE 69; RESP 15; O2SAT 97
[2022-06-25 02:30] VITALS: PULSE 75; RESP 15; O2SAT 98
[2022-06-25] MEDS: Nitrofurantoin Macrocrystals 100 MG Capsule PO (02:43)
--- NOTE | 2022-06-25 02:51 | ED.RN ---
attempted to call [facility], no answer.
--- NOTE | 2022-06-25 23:11 | CT_ITS ---
STUDY: CT ABDOMEN AND PELVIS WITH CONTRAST REASON FOR EXAM: Female, 77 years old. LOWER ABD PAIN RADIATION DOSAGE (If Supplied By Facility): CTDIvol = ( 45.11 ) mGy, DLP = ( 1887.22 ) mGycm TECHNIQUE: Transaxial images were obtained from the dome of the diaphragm to the symphysis pubis without oral contrast. IV 100mL Isovue-[id number] was administered. Sagittal and coronal images were reconstructed. Individualized dose optimization techniques were used for this CT. COMPARISON: None. FINDINGS: The visualized lung bases are unremarkable. The visualized portions of the heart are within normal limits. Normal liver. There is non-visualization of the gallbladder, which may be secondary to either contraction or a prior cholecystectomy. Normal spleen. Normal pancreas. Normal bilateral adrenal glands. Nonobstructive stone in the right kidney measures 4 mm. Normal left kidney. Normal visualized stomach. Normal small intestine. Normal colon. There is non-visualization of the appendix. Normal abdominal aorta. Normal inferior vena cava. Normal retroperitoneum. Normal urinary bladder. Normal abdominal wall. Normal osseous structures. CT/Abdomen/Pelvis W IV Cont ONLY IMPRESSION: Nonobstructive stone in the right kidney measures 4 mm. IVC filter in good position. Electronically Signed: Padmini Ledezma MD at 1:34 EST ,
== END 2022-06-25 04:56 | disposition home or self-care (01) ==
PROVIDERS: Emergency Provider Emergency Medicine; PCP Family Medicine; Visit Provider Emergency Medicine
DX: N39.0 Urinary tract infection, site not specified (principal); E11.40 Type 2 diabetes mellitus with diabetic neuropathy, unspecified; R10.9 Unspecified abdominal pain; R30.0 Dysuria
CPT/HCPCS: 74177; 80053; 81001; 83690; 85025; 87077; 87086; 87088; 87186; 96374; 96375; 99285; J7050; P9612; Q9967; A4216; J2405

== ENCOUNTER → 2022-06-24 | Outpatient (REF) | payer MEDICARE, MEDICAID, SELFPAY ==
[2022-06-25 08:25] LABS: Mucous, Urine 0 SEEN /hpf (<or=2+)
[2022-06-25 09:58] LABS: Color, Urine Straw (Yellow); Glucose, Dipstick Normal (Normal); Ketone-Dipstick Negative (Negative); Leukocyte Esterase-Dipstick 500 /ul (Negative); Nitrite-Dipstick Negative (Negative); Occult Blood-Urine 25 /ul (Negative); Protein-Dipstick Negative (Negative); Urine Bilirubin Dipstick Negative (Negative); Urine Clarity Clear (Clear); Urine Urobilinogen Normal (Normal)
[2022-06-25 10:40] LABS: Red Blood Cells-Urine 0-5 SEEN /hpf (0-5); White Blood Cells 25-50 SEEN /hpf (0-5)
[2022-06-25 10:41] LABS: Bacteria 2+ /hpf (None Seen); Squamous Epithelial Cells - UA 0-5 SEEN /hpf (5-10)
== END ==
LOC: OLS.SWAL 14:15
PROVIDERS: PCP Family Medicine
DX: N39.0 Urinary tract infection, site not specified (principal)
CPT/HCPCS: 81001; 87077; 87086; 87088; 87186

== ENCOUNTER 2022-07-06 17:27 | Emergency (ER) | payer MEDICARE, MEDICAID, SELFPAY ==
[2022-07-06 17:28] VITALS: BP 102/78; PULSE 78; RESP 16; TEMP 36.6; O2SAT 99; BMI 45.2
[2022-07-06 18:12] LABS: Mucous, Urine 0 SEEN /hpf (<or=2+); Red Blood Cells-Urine 0 SEEN /hpf (0-5)
[2022-07-06 18:14] LABS: Color, Urine Yellow (Yellow); Glucose, Dipstick Normal (Normal); Ketone-Dipstick Negative (Negative); Leukocyte Esterase-Dipstick 500 /ul (Negative); Nitrite-Dipstick Positive (Negative); Occult Blood-Urine Negative /ul (Negative); Protein-Dipstick Negative (Negative); Urine Clarity Sl. Cloudy (Clear); Urine Urobilinogen 4 mg/dl (Normal)
[2022-07-06 18:29] LABS: Urine Bilirubin Dipstick 3 mg/dL (Negative); White Blood Cells 25-50 SEEN /hpf (0-5)
[2022-07-06 18:30] LABS: Amorphous Sediment 1+ URATE; Bacteria 1+ /hpf (None Seen); Squamous Epithelial Cells - UA 0-5 SEEN /hpf (5-10)
[2022-07-06 18:51] LABS: Absolute Lymphocyte Count 1.58 X10^3/uL (0.83-4.51); Absolute Neutrophil Count 4.1 X10^3/uL (2.0-7.7); Basophil# 0.05 X10^3/uL; Basophil% 0.8 % (0-1); Eosinophil# 0.12 X10^3/uL; Eosinophils% 1.9 % (0-5); Hematocrit 43.2 % (37-47); Hemoglobin 14.1 g/dL (12.0-15.0); Lymphocyte # 1.58 X10^3/ul (0.83-4.51); Lymphocyte % 24.4 % (19-41); Mean Corp Hgb Conc 32.6 g/dL (32-36); Mean Corpuscular Hgb 32.1 pg (27.0-32.0); Mean Corpuscular Volume 98.4 fL (81-99); Mean Platelet Vol. 9.5 fl (6.2-12.0); Monocyte# 0.58 X10^3/uL; NRBC Flagged by Analyzer 0 % (0-5); Neutrophil # 4.11 X10^3/uL (2.7-7.7); Neutrophil % 63.3 % (47-70); Platelet Count 252 K/mm3 (150-450); RBC Distribution Width CV 13.1 % (11.6-14.6); RBC Distribution Width SD 47.9 fl (35.1-43.9); Red Blood Count 4.39 M/mm3 (4.2-5.4); White Blood Count 6.5 K/mm3 (4.4-11.0)
[2022-07-06 19:05] LABS: Anion Gap 7 (5-15); BUN 29 mg/dL (7-18); BUN/Creat Ratio 30.6 RATIO (10-20); Calcium,Total 8.3 mg/dL (8.5-10.1); Chloride 103 mmol/L (98-107); Creatinine, Serum 0.95 mg/dL (0.55-1.02); EST Glomerular Filtration Rate 61 mL/min (>60); Est Glom Filt Rate - Afr Amer 74 mL/min (>60); Estimated Creatinine Clearance 45.33 ml/min; Glucose 102 mg/dL (74-106); Potassium 4.3 mmol/L (3.5-5.1); Sodium Level 136 mmol/L (136-145)
--- NOTE | 2022-07-06 19:32 | EX.ED.DYSGE1 ---
HPI History of Present Illness Chief Complaint: Abd Pain Informant: patient Narrative Narrative: Patient presents with suprapubic pain. She states this is exactly how she feels when she has UTI. She states she has frequent recurrent UTIs. She is not on preventative antibiotics. She was on Macrobid a month or so ago. She states it helped for a while. She was then on Keflex that did not help. The symptoms are coming back worse now. She does have frequency urgency. She denies fevers chills nausea or vomiting. She took a Pyridium which she had left which helped a little bit. But she still has suprapubic pain. She is requesting something for pain. But she is also on routine hydrocodone for generalized pain that she is also having and she is due for this. She is in assisted living at [facility]. They evidently checked her urine this morning but have not yet started antibiotics. I did review the urine results that were done as an outpatient from this morning and those are consistent with a UTI. [facility] Medical History Anxiety and depression Arthritis Back pain Bladder disease Carpal tunnel syndrome Cataracts, both eyes Chronic anticoagulation Chronic neuropathic pain Chronic pain following surgery or procedure Chronic UTI Closed left arm fracture Cystitis Depression Diabetes Diabetic neuropathy associated with type 2 diabetes mellitus DM II (diabetes mellitus, type II), controlled Facet arthropathy, lumbar FHx: cholecystectomy GERD (gastroesophageal reflux disease) GERD (gastroesophageal reflux disease) GI bleed Hematoma Hiatal hernia High cholesterol History of DVT (deep vein thrombosis) History of edema History of gallstones History of pain when walking History of stress test HLD (hyperlipidemia) Hx of peripheral neuropathy Hydronephrosis 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 Injury of head and neck Kidney stones Low iron Morbid obesity with BMI of 45.0-49.9, adult Neuropathy Non-smoker Non-smoker Normocytic anemia ROXIE (obstructive sleep apnea) Osteoarthritis Polycystic ovaries Pulmonary embolism Restless legs Segmental and somatic dysfunction of cervical region Segmental and somatic dysfunction of lumbar region Segmental and somatic dysfunction of pelvic region Segmental and somatic dysfunction of thoracic region Shortness of breath on exertion Uses wheelchair Walker as ambulation aid Wears dentures Wears hearing aid Home Medications cholecalciferol (vitamin D3) 25 mcg (1,000 unit) tablet (Vitamin D3) 1,000 unit PO DAILY vitamin 12/29/15 [History Last Taken 07/24/21] duloxetine 60 mg capsule,delayed release 90 mg PO DAILY depression 12/29/15 [History Last Taken 07/24/21] pravastatin 40 mg tablet 40 mg PO QHS cholesterol 08/05/18 [History Last Taken 07/23/21] fluticasone propionate 50 mcg/actuation nasal spray,suspension 2 spray NASAL DAILY allergies 03/18/19 [History Last Taken 07/24/21] primidone 50 mg tablet 100 mg PO TID tremors 03/18/19 [History Last Taken 12/10/21] simethicone 80 mg chewable tablet 80 mg PO TIDCM indigestion 03/18/19 [History Last Taken 07/24/21 12:00] mirabegron 50 mg tablet,extended release 24 hr 50 mg PO QHS bladder control 01/24/20 [History Last Taken 07/23/21] bupropion HCl 150 mg 24 hr tablet, extended release 150 mg PO DAILY DEPRESSION 08/09/20 [History Last Taken 12/10/21] aluminum-mag hydroxide-simethicone 400 mg-400 mg-40 mg/5 mL oral susp 30 ml PO Q4H PRN PRN GI DISTRESS 08/20/20 [History Last Taken 10/22/20] albuterol sulfate 2.5 mg/3 mL (0.083 %) solution for nebulization 2.5 mg (3 mL) inhalation Q2H PRN PRN Dyspnea, wheezing 08/22/20 [Rx Last Taken Unknown] ascorbic acid (vitamin C) 500 mg tablet 500 mg PO DAILY supplement 09/28/20 [History Last Taken 07/24/21] cyanocobalamin (vitamin B-12) 1,000 mcg/mL injection solution 1,000 mcg IM QMONTH supplement 10/23/20 [History Last Taken 08/24/21] ferrous sulfate 325 mg (65 mg iron) tablet 325 mg PO DAILY IRON 10/23/20 [History Last Taken 07/24/21] Probiotic 1 cap PO/SL DAILY Check with primary doctor 07/24/21 [History Last Taken 07/23/21] omeprazole 40 mg capsule,delayed release 40 mg PO DAILY Check with primary doctor 07/24/21 [History Last Taken 12/10/21] nystatin 100,000 unit/gram topical powder 1 applic topical TID PRN Skin Irritation 07/30/21 [History Last Taken Unknown] acetaminophen 325 mg tablet (Tylenol) 650 mg PO Q6H PRN PRN Pain Score 1-10/Temp > 100.7 F #1 TAB 08/14/21 [Rx Last Taken Unknown] furosemide 20 mg tablet 60 mg PO DAILY #0 tabs 08/14/21 [Rx Last Taken Unknown] oxybutynin chloride 5 mg tablet 5 mg PO DAILY 09/03/21 [History Last Taken 12/10/21] ondansetron HCl 8 mg tablet 8 mg PO Q8H PRN PRN Nausea 7 days #20 TABLETS 09/04/21 [Rx Last Taken Unknown] phenazopyridine 200 mg tablet (Pyridium) 200 mg PO TID PRN PRN Bladder Spasms 7 days #30 tabs 09/04/21 [Rx Last Taken Unknown] apixaban 5 mg tablet (Eliquis) 5 mg PO BID 09/30/21 [History Last Taken 11/06/21] divalproex 500 mg tablet,delayed release (Depakote) 600 mg PO BID 09/30/21 [History Last Taken 12/10/21] guaifenesin 10 ml PO/SL Q4H PRN PRN Cough 09/30/21 [History Last Taken Unknown] halobetasol propionate 0.05 % topical cream 0.05 applic topical BID 11/03/21 [History Last Taken Unknown] d-mannose 500 mg capsule 2,000 mg PO DAILY 12/05/21 [History Last Taken Unknown] polyethylene glycol 3350 17 gram oral powder packet (Miralax) 17 g PO PRN PRN Constipation 12/05/21 [History Last Taken Unknown] albuterol sulfate 90 mcg/actuation aerosol inhaler (Ventolin HFA) 1 - 2 puff inhalation Q4H PRN PRN Wheezing #1 device 04/14/22 [Rx Last Taken Unknown] albuterol sulfate 90 mcg/actuation aerosol inhaler (Ventolin HFA) 1 - 2 puff inhalation Q4H PRN PRN Wheezing #1 device 04/14/22 [Rx Last Taken Unknown] dexamethasone 6 mg tablet 6 mg PO DAILY 10 days #10 tabs 04/14/22 [Rx Last Taken Unknown] dexamethasone 6 mg tablet 6 mg PO DAILY 10 days #10 tabs 04/14/22 [Rx Last Taken Unknown] nitrofurantoin monohydrate/macrocrystals 100 mg capsule (Macrobid) 100 mg PO Q12H 7 days #14 caps 06/25/22 [Rx Last Taken Unknown] levofloxacin 750 mg tablet 750 mg PO DAILY #4 tabs 07/06/22 [Rx Last Taken Unknown] phenazopyridine 200 mg tablet (Pyridium) 200 mg PO TID #10 tabs 07/06/22 [Rx Last Taken Unknown] Allergy/AdvReac Type Severity Reaction Status Date / Time ampicillin [From Unasyn] Allergy Severe Blisters Verified 07/06/22 17:28 on tongue /throat difficulty breathing sore tongue/ warfarin sodium Allergy Severe Low red Verified 07/06/22 17:28 [From Coumadin] blood cells Family History Father Colon cancer Hypertension Mother Hypertension Surgical History H/O cardiac catheterization History of carpal tunnel surgery History of cholecystectomy History of cystoscopy History of embolic filter insertion History of embolic filter insertion History of gastric bypass History of hysterectomy Hx of cystoscopy Hx of cystoscopy S/P hysterectomy Total knee replacement status Social History Smoking Status: Never smoker alcohol intake: current alcohol intake frequency: holidays/special occasions only substance use type: does not use what type of physical activity do you participate in: walking and aerobics frequency: 1-2 times per week ROS ROS ED Constitutional Constitutional ED: Denies chills, fever(s) or subjective ENT ENT ED: Denies rhinorrhea or sore throat Cardiovascular Cardiovascular: Denies chest pain or palpitations Respiratory/Chest Respiratory/Chest: Denies cough or dyspnea Gastrointestinal Gastrointestinal: Denies nausea or vomiting Genitourinary Genitourinary ED: Reports dysuria and urinary frequency; Denies hematuria Musculoskeletal Musculoskeletal: Denies back pain Integumentary Denies rash Neurologic Neurologic: Denies headache(s), paresthesias or weakness Psychiatric Psychiatric: Reports anxiety Endocrine Endocrinology: Denies polydipsia Hematologic/Lymphatic Hematologic/Lymphatic: Reports easy bleeding and easy bruising Allergic/Immunologic Allergic/Immunologic ED: Denies urticaria EXAM Physical Exam Narrative Exam Narrative: Patient is awake alert and appropriately dressed and groomed in bed. She looks comfortable and nontoxic. HEENT shows no sign of trauma. Mucous membranes are moist. Neck shows no JVD Lungs are clear and there is no pain with a deep breath. Heart is regular I do not hear murmur. Peripheral pulses are strong. There is no CVA tenderness on either side. Abdomen is positive bowel sounds soft. There is some pressure in the suprapubic area. But patient states it hurts more to urinate than just hurting. Overall relatively benign abdomen. No rebound or guarding. Extremities show no notable abnormalities. Patient awake alert she is little bit tearful as she is frustrated with having frequent UTIs but she is oriented. Skin shows no rash erythema or diaphoresis Const Vital Signs: 07/06/22 17:28 Temperature 97.8 F Temperature Source Temporal Pulse Rate 78 Respiratory Rate 16 Blood Pressure 102/78 Blood Pressure Mean 86 Pulse Ox 99 Oxygen Delivery Method Room Air MDM MDM MDM Narrative Medical decision making narrative: Protocol orders were done. I reviewed her CBC that shows normal white count without any significant left shift. Hemoglobin and platelets are normal. Electrolytes look normal other than mild elevation of the BUN. Urinalysis shows cloudy urine with positive nitrites, positive leukocyte esterase, and 25-50 white cells all of which is consistent with a UTI. I also reviewed multiple prior outpatient urinalysis cultures most of which showed E. coli. These are resistant to amoxicillin. She is already tried Macrobid. They are usually sensitive to Levaquin so we will try this at a higher dose than simple UTI. If she is having nausea vomiting fevers worsening pain she may need to return but I think we can treat her as an outpatient appropriately at this time. Lab Data Attestation: I reviewed the patient's lab results. Labs: Laboratory Results - last 24 hr 07/06/22 07/06/22 07/06/22 18:05 18:40 18:40 WBC 6.5 RBC 4.39 Hgb 14.1 Hct 43.2 MCV 98.4 MCH 32.1 H MCHC 32.6 RDW Std Deviation 47.9 H RDW Coeff of Chani 13.1 Plt Count 252 MPV 9.5 Immature Gran % (Auto) 0.600 Neut % (Auto) 63.3 Lymph % (Auto) 24.4 Parmer % (Auto) 9.0 Eos % (Auto) 1.9 Baso % (Auto) 0.8 Absolute Neuts (auto) 4.1 Absolute Lymphs (auto) 1.58 Nucleated RBC % 0 Sodium 136 Potassium 4.3 Chloride 103 Carbon Dioxide 26.0 Anion Gap 7 BUN 29 H Creatinine 0.95 Estim Creat Clear Calc 45.33 Est GFR (MDRD) Af Amer 74 Est GFR (MDRD) Non-Af 61 BUN/Creatinine Ratio 30.6 H Glucose 102 Calcium 8.3 L Urine Color Yellow Urine Clarity Sl. Cloudy Urine pH 6.0 Ur Specific [place] 1.030 Urine Protein Negative Urine Glucose (UA) Normal Urine Ketones Negative Urine Occult Blood Negative Urine Nitrite Positive H Urine Bilirubin 3 H Urine Urobilinogen 4 H Ur Leukocyte Esterase 500 H Urine RBC 0 SEEN Urine WBC 25-50 SEEN Ur Squamous Epith Cells 0-5 SEEN Amorphous Sediment 1+ URATE Urine Bacteria 1+ Urine Mucus 0 SEEN Discharge Plan Triage Chief Complaint: Abd Pain ED Provider: Bandar Camilo Dx/Rx/DC Orders Clinical Impression: Urinary tract infection Instructions: ED Cystitis Female Adult Prescriptions: New levofloxacin 750 mg tablet 750 mg PO DAILY Qty: 4 0RF phenazopyridine [Pyridium] 200 mg tablet 200 mg PO TID Qty: 10 0RF No Action cholecalciferol (vitamin D3) [Vitamin D3] 1,000 UNIT tablet 1,000 unit PO DAILY Label Comments: vitamin duloxetine 60 MG capsule 90 mg PO DAILY Label Comments: DEPRESSION/ANXIETY pravastatin 40 MG tablet 40 mg PO QHS primidone 50 MG tablet 100 mg PO TID fluticasone propionate 1 SPRAY spray,suspension 2 spray NASAL DAILY simethicone 80 MG tablet 80 mg PO TIDCM mirabegron 50 MG tablet extended release 24 hr 50 mg PO QHS bupropion HCl 150 MG tablet extended release 24 hr 150 mg PO DAILY alum-mag hydroxide-simeth 355 ML suspension 30 ml PO Q4H PRN PRN (Reason: GI DISTRESS) albuterol sulfate 2.5 MG/3 ML solution for nebulization 2.5 mg INHALATION Q2H PRN PRN (Reason: Dyspnea, wheezing) 0RF ascorbic acid (vitamin C) 500 MG tablet 500 mg PO DAILY cyanocobalamin (vitamin B-12) 1,000 mcg/mL Solution 1,000 mcg IM QMONTH Rx Instructions: states last had in August is due the 4th of each month ferrous sulfate 325 mg (65 mg iron) Tablet 325 mg PO DAILY omeprazole 40 mg capsule,delayed release(DR/EC) 40 mg PO DAILY Probiotic 1 cap PO/SL DAILY nystatin 100,000 unit/gram Powder 1 applic TOPICAL TID PRN (Reason: Skin Irritation) acetaminophen [Tylenol] 325 mg Tablet 650 mg PO Q6H PRN PRN (Reason: Pain Score 1-10/Temp > 100.7 F) Qty: 1 0RF furosemide 20 mg Tablet 60 mg PO DAILY Qty: 0 0RF oxybutynin chloride 5 mg Tablet 5 mg PO DAILY ondansetron HCl 8 MG tablet 8 mg PO Q8H PRN PRN (Reason: Nausea) 7 Days Qty: 20 0RF phenazopyridine [Pyridium] 200 MG tablet 200 mg PO TID PRN PRN (Reason: Bladder Spasms) 7 Days Qty: 30 0RF divalproex [Depakote] 500 mg Tablet,Delayed Release (Dr/Ec) 600 mg PO BID Eliquis 5 mg Tablet 5 mg PO BID guaifenesin 10 ml PO/SL Q4H PRN PRN (Reason: Cough) halobetasol propionate 0.05 % cream 0.05 applic TOPICAL BID polyethylene glycol 3350 [Miralax] 17 gram Powder In Packet 17 g PO PRN PRN (Reason: Constipation) d-mannose 500 mg Capsule 2,000 mg PO DAILY albuterol sulfate [Ventolin HFA] 90 mcg/actuation HFA aerosol inhaler 1 - 2 puff inhalation Q4H PRN PRN (Reason: Wheezing) Qty: 1 0RF dexamethasone 6 mg tablet 6 mg PO DAILY 10 Days Qty: 10 0RF albuterol sulfate [Ventolin HFA] 90 mcg/actuation HFA aerosol inhaler 1 - 2 puff inhalation Q4H PRN PRN (Reason: Wheezing) Qty: 1 0RF dexamethasone 6 mg tablet 6 mg PO DAILY 10 Days Qty: 10 0RF nitrofurantoin monohyd/m-cryst [Macrobid] 100 mg capsule 100 mg PO Q12H 7 Days Qty: 14 0RF Rx Instructions: must administer with a meal/food Primary Care Provider: Gonzales Pinto Referrals: Gonzales Pinto MD [Primary Care Provider] - 3-5 Days if not improving Disposition Disposition: NonSkilled NH/Intermed Care
[2022-07-06] MEDS: HYDROcodone Bitartrate/Apap 5/325 Tablet PO (19:36)
[2022-07-06] MEDS: Phenazopyridine 95 MG Tablet PO (19:36)
[2022-07-06] MEDS: levoFLOXacin 750 MG Tablet PO (19:36)
[2022-07-06 19:56] VITALS: BP 102/78; PULSE 78; RESP 16; O2SAT 99
== END 2022-07-06 20:24 | disposition intermediate care facility (04) ==
PROVIDERS: Emergency Provider Emergency Medicine; PCP Family Medicine; Visit Provider Emergency Medicine
DX: N39.0 Urinary tract infection, site not specified (principal); E11.40 Type 2 diabetes mellitus with diabetic neuropathy, unspecified; B96.20 Unspecified Escherichia coli [E. coli] as the cause of diseases classified elsewhere; Z87.440 Personal history of urinary (tract) infections; E78.5 Hyperlipidemia, unspecified; Z79.01 Long term (current) use of anticoagulants; G47.33 Obstructive sleep apnea (adult) (pediatric)
CPT/HCPCS: 80048; 81001; 85025; 87077; 87086; 87088; 87186; 99285

== ENCOUNTER → 2022-07-06 | Outpatient (REF) | payer MEDICARE, MEDICAID, SELFPAY ==
[2022-07-06 09:09] LABS: Mucous, Urine 0 SEEN /hpf (<or=2+)
[2022-07-06 09:26] LABS: Color, Urine Straw (Yellow); Glucose, Dipstick Normal (Normal); Ketone-Dipstick Negative (Negative); Leukocyte Esterase-Dipstick 500 /ul (Negative); Nitrite-Dipstick Positive (Negative); Occult Blood-Urine 10 /ul (Negative); Protein-Dipstick 30 mg/dl (Negative); Specific Gravity, Urine 1.015 (1.002-1.030); Urine Bilirubin Dipstick Negative (Negative); Urine Clarity Sl. Cloudy (Clear); Urine Urobilinogen Normal (Normal)
[2022-07-06 09:42] LABS: Bacteria 4+ /hpf (None Seen); Red Blood Cells-Urine 0-5 SEEN /hpf (0-5); Squamous Epithelial Cells - UA 0-5 SEEN /hpf (5-10); White Blood Cells 25-50 SEEN /hpf (0-5)
== END ==
LOC: OLS.SWAL 01:00
PROVIDERS: PCP Family Medicine; Visit Provider Urology
DX: N39.0 Urinary tract infection, site not specified (principal)
CPT/HCPCS: 81001; 87077; 87086; 87088; 87186

== ENCOUNTER → 2022-07-19 | Outpatient (REF) | payer MEDICARE, MEDICAID, SELFPAY ==
[2022-07-20 10:56] LABS: Color, Urine Orange (Yellow); Glucose, Dipstick Normal (Normal); Ketone-Dipstick 5 mg/dl (Negative); Leukocyte Esterase-Dipstick 500 /ul (Negative); Nitrite-Dipstick Positive (Negative); Occult Blood-Urine 10 /ul (Negative); Protein-Dipstick 30 mg/dl (Negative); Urine Clarity Sl. Cloudy (Clear); Urine Urobilinogen 8 mg/dl (Normal)
[2022-07-20 11:08] LABS: Urine Bilirubin Dipstick 3 mg/dL (Negative)
== END ==
LOC: OLS.SWAL 10:19
PROVIDERS: PCP Family Medicine; Visit Provider Family Medicine
DX: N39.0 Urinary tract infection, site not specified (principal)
CPT/HCPCS: 81002; 87077; 87086; 87088; 87186

== ENCOUNTER 2022-08-12 07:22 | Day surgery (SDC) | payer MEDICARE, MEDICAID, SELFPAY ==
[2022-08-12] VITALS (7 sets, daily range): BP systolic 93–122; BP diastolic 46–56; PULSE 75–81; RESP 16; TEMP 36.6–37.3; O2SAT 93–96; BMI 47.6
--- NOTE | 2022-08-12 08:00 | RAD_ITS ---
STUDY: X-RAY - RIGHT KNEE REASON FOR EXAM: Female, 77 years old. RADIO FREQ ABLATION RT KNEE GENICULAR NERVE TECHNIQUE: 7 intraoperative C-arm view(s) of the knee. COMPARISON: None. FINDINGS: 7 limited intraoperative C-arm films were performed as the patient has undergone ablation of the genicular nerve in the right knee. No intraoperative complications are noted. The replaced right knee joint demonstrates anatomic alignment. RAD/Knee 1 or 2 Views IMPRESSION: No intraoperative complications during radio frequency ablation of the right genicular nerve Electronically Signed: William Meadows MD at 11:47 EST ,
[2022-08-12] MEDS: Lactated Ringers 1,000 ML 15 ML IV (08:06)
[2022-08-12] MEDS: MethylPREDNISolone Acetate 40 MG/ML Vial IM (09:31)
[2022-08-12] MEDS: Lidocaine 1% (30 ml sdv) 30 ML Vial (09:31)
--- NOTE | 2022-08-12 09:40 | PCM.OPRPT ---
Report of Operation Date of Procedure: 08/12/22 Pre-Operative Diagnosis: Osteoarthritis of the right knee, chronic postoperative knee pain Post-Operative Diagnosis: Osteoarthritis of the right knee, chronic postoperative knee pain Surgery/Procedure Performed:: Right knee radiofrequency ablation of the superior medial, superior lateral, inferior medial genicular nerves under fluoroscopic guidance Description of Surgical Findings:: DESCRIPTION OF PROCEDURE: History and physical of today was reviewed. Risks and benefits of the procedure were explained. The patient understood and agreed to proceed. Informed consent was obtained. IV inserted per routine protocol. The patient was taken to the operating room and placed in the supine position. The right knee was prepped and draped in a sterile fashion using iodine x3. Under fluoroscopy guidance on AP view, the right knee was visualized. The skin and subcutaneous tissue was anesthetized with approximately 15 mL of 1% lidocaine using a 25-gauge regular needle at the vicinity of the superomedial, superolateral, and inferomedial genicular nerves. Under direct visualization of fluoroscopy on AP view as well as lateral view, starting on the right superomedial, ending on the right inferomedial, passing through the right superolateral genicular nerves, using a 20-gauge 10 cm with a 10 mm curved active tip radiofrequency ablation needle, the needle was passed through the skin. The tip of the needle was maneuvered and directed towards the diaphyseal junction of each corresponding nerve. Once tip of the needle was in the vicinity of the diaphysis and in contact with the bone, after confirmation on AP as well as lateral view and repeated negative aspiration for blood, radiofrequency ablation probe was then inserted at each level impedance was then recorded at the superior medial 297, at the superior lateral 263, at the inferior medial 247 ohm, motor evoked potential was then initiated to 1.5 V without any motor response at each corresponding level, a total of 3 cc of 1% lidocaine were injected in divided doses between the 3 levels after repeated negative aspiration for blood the radiofrequency ablation probe was then reinserted after repeated confirmation on AP oblique as well as lateral view radiofrequency ablation was then initiated to 80 ?C for 90 seconds at each level once concluded the probe was then removed intact and a total of 6 mL of preservative-free 0.25% Marcaine with 40 mg of Depo-Medrol was injected in divided doses between those three levels. The needles were then removed intact. The patient experienced no sign or symptoms of intravascular injection. The patient experienced no paresthesia. The procedure was completed without any apparent difficulty or any complications. The patient appeared to tolerate it well. ASSESSMENT AND PLAN: This is a 77-year-old female with osteoarthritis of the right knee, chronic postoperative knee pain status post right knee radiofrequency ablation of the superior medial, superior lateral, inferior medial genicular nerves under fluoroscopic guidance, patient will continue her current medications, patient will follow in approximately 2 weeks for reevaluation. Type of Anesthesia: MAC Estimated Blood Loss (mL): Minimal Complications None.
== END 2022-08-12 11:07 | disposition home or self-care (01) ==
LOC: SDC 07:26 → AC 07:27
PROVIDERS: PCP Family Medicine; Referring Provider Anesthesiology Pain Medicine; Visit Provider Anesthesiology Pain Medicine
PROC: (CPT 64624; principal; 2022-08-12 08:55)
DX: M17.11 Unilateral primary osteoarthritis, right knee (principal); M47.817 Spondylosis without myelopathy or radiculopathy, lumbosacral region; Z79.891 Long term (current) use of opiate analgesic; G89.28 Other chronic postprocedural pain; M25.551 Pain in right hip; M25.569 Pain in unspecified knee; M53.3 Sacrococcygeal disorders, not elsewhere classified; Z96.653 Presence of artificial knee joint, bilateral; Z86.718 Personal history of other venous thrombosis and embolism
CPT/HCPCS: 64624; 73560; 76000; J7120

== ENCOUNTER → 2022-08-14 | Outpatient (CLI) | payer MEDICARE, MEDICAID, SELFPAY ==
--- NOTE | 2022-08-14 12:54 | US_ITS ---
STUDY: RENAL ULTRASOUND - COMPLETE REASON FOR EXAM: Female, 77 years old. UTI. TECHNIQUE: Ultrasound evaluation of the kidneys was performed with real-time and static sharp-scale imaging. COMPARISON: CT the abdomen and pelvis, June 25, 2022. FINDINGS: RIGHT KIDNEY: Normal location of the right kidney, which is normal in size. The right kidney measures 11.0 cm. There is a normal cortex of the right kidney. The renal cortex measures 1.2 cm. There is no right renal mass or cyst. There are no right renal calculi. There is no right hydronephrosis. DISTAL RIGHT URETER: There is non-visualization of the distal right ureter. There is no demonstrated right ureterovesical junction calculus. There is a visualized right ureteral jet. LEFT KIDNEY: Normal location of the left kidney, which is normal in size. The left kidney measures 10.4 cm. There are focal areas of cortical thinning in the upper pole the left kidney. The renal cortex measures 1.1 cm. There is no left renal mass or cyst. There is a 0.7 x 0.3 x 0.6 cm echogenic focus in the upper kidney thought to correlate with a calcification seen on the CT. There is no left hydronephrosis. DISTAL LEFT URETER: There is non-visualization of the distal left ureter. There is no demonstrated left ureterovesical junction calculus. There is a visualized left ureteral jet. BLADDER: The distended urinary bladder has a volume of 129 ml. . There is a normal wall thickness of the distended urinary bladder. There is no demonstrated mass within the urinary bladder. There are no demonstrated bladder calculi. US/Kidney and Bladder IMPRESSION: 1. Cortical thinning with cortical calcification in the upper pole of the left kidney, unchanged from prior CT. 2. Normal right kidney and urinary bladder. Electronically Signed: Rafael Choi DO at 17:21 [facility] ,
== END | disposition home or self-care (01) ==
LOC: US 12:51
PROVIDERS: PCP Family Medicine; Visit Provider Urology
DX: N39.0 Urinary tract infection, site not specified (principal)
CPT/HCPCS: 76770

== ENCOUNTER 2022-09-17 12:58 | Emergency (ER) | payer MEDICARE, MEDICAID, SELFPAY ==
[2022-09-17 13:00] VITALS: BP 126/61; PULSE 74; RESP 18; TEMP 36.4; O2SAT 94; BMI 49.6
--- NOTE | 2022-09-17 13:24 | EKG12_ITS ---
Test Reason : CP Blood Pressure : / mmHG Vent. Rate : 072 BPM Atrial Rate : 072 BPM P-R Int : 218 ms QRS Dur : 096 ms QT Int : 394 ms P-R-T Axes : 058 026 046 degrees QTc Int : 431 ms Sinus rhythm with 1st degree A-V block Otherwise normal ECG Confirmed by WILMAN GUNTER, ROSEY ([id number]), editorial intern KARISHMA BRAGG ([id number]) on 09/23/2022 6:53:18 AM Referred By: JAN/SAKINA Confirmed By:SEAN STOVALL MD
[2022-09-17 13:25] VITALS: O2SAT 96
--- NOTE | 2022-09-17 13:25 | RAD_ITS ---
STUDY: X-RAY CHEST REASON FOR EXAM: Female, 77 years old. Chest pain TECHNIQUE: Single AP portable view of the chest. COMPARISON: Comparison is made with prior study of November 19, 2021. FINDINGS: EKG electrodes are seen. The lungs are clear and expanded. There is no demonstrated pleural abnormality. Normal size heart. Normal mediastinum and epifanio. Normal visualized pulmonary arteries. There is atherosclerotic calcification of the aortic arch with tortuosity. There are diffuse degenerative changes of the visualized thoracic spine. There is degenerative osteoarthritis of the bilateral shoulders. There is no demonstrated abnormality of the visualized soft tissue structures of the upper abdomen. RAD/Chest 1 View (Portable) IMPRESSION: No acute abnormality is seen. Electronically Signed: Joshua Rosario MD at 13:46 EDT ,
[2022-09-17 13:37] LABS: Absolute Lymphocyte Count 0.97 X10^3/uL (0.83-4.51); Absolute Neutrophil Count 1.8 X10^3/uL (2.0-7.7); Basophil# 0.04 X10^3/uL; Basophil% 1.2 % (0-1); Eosinophil# 0.12 X10^3/uL; Eosinophils% 3.7 % (0-5); Hematocrit 38.9 % (37-47); Hemoglobin 12.5 g/dL (12.0-15.0); Lymphocyte # 0.97 X10^3/ul (0.83-4.51); Lymphocyte % 29.8 % (19-41); Mean Corp Hgb Conc 32.1 g/dL (32-36); Mean Corpuscular Volume 99.5 fL (81-99); Mean Platelet Vol. 9.9 fl (6.2-12.0); Monocyte# 0.31 X10^3/uL; Monocyte% 9.5 % (0-10); NRBC Flagged by Analyzer 0 % (0-5); Neutrophil # 1.81 X10^3/uL (2.7-7.7); Neutrophil % 55.5 % (47-70); Platelet Count 200 K/mm3 (150-450); RBC Distribution Width CV 13.1 % (11.6-14.6); RBC Distribution Width SD 48.2 fl (35.1-43.9); Red Blood Count 3.91 M/mm3 (4.2-5.4); White Blood Count 3.3 K/mm3 (4.4-11.0)
--- NOTE | 2022-09-17 13:39 | EDS_ITS ---
HPI History of Present Illness Chief Complaint: Chest Pain Narrative Narrative: 77-year-old female past medical history of neuropathy of her legs, has left- sided arm pain for which she is doing physical therapy, presents with chest pain that she has had for the last few days to weeks. Mainly left-sided chest pain to central. She denies any nausea or vomiting. No shortness of breath or diaphoresis. She states her left pectoral area is tender to the touch. She denies any true exacerbating or alleviating factors. No cough, no fevers or chills. PFSH PFSH Medical History Anxiety and depression Arthritis Back pain Bladder disease Carpal tunnel syndrome Cataracts, both eyes Chronic anticoagulation Chronic neuropathic pain Chronic pain following surgery or procedure Chronic UTI Closed left arm fracture Cystitis Depression Diabetes Diabetic neuropathy associated with type 2 diabetes mellitus DM II (diabetes mellitus, type II), controlled Facet arthropathy, lumbar FHx: cholecystectomy GERD (gastroesophageal reflux disease) GERD (gastroesophageal reflux disease) GI bleed Hematoma Hiatal hernia High cholesterol History of DVT (deep vein thrombosis) History of edema History of gallstones History of pain when walking History of stress test HLD (hyperlipidemia) Hx of peripheral neuropathy Hydronephrosis 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 Injury of head and neck Kidney stones Low iron Morbid obesity with BMI of 45.0-49.9, adult Neuropathy Non-smoker Non-smoker Normocytic anemia ROXEI (obstructive sleep apnea) Osteoarthritis Polycystic ovaries Pulmonary embolism Restless legs Segmental and somatic dysfunction of cervical region Segmental and somatic dysfunction of lumbar region Segmental and somatic dysfunction of pelvic region Segmental and somatic dysfunction of thoracic region Shortness of breath on exertion Uses wheelchair Walker as ambulation aid Wears dentures Wears hearing aid Home Medications cholecalciferol (vitamin D3) 25 mcg (1,000 unit) tablet (Vitamin D3) 1,000 unit PO DAILY vitamin 12/29/15 [History Last Taken 07/24/21] duloxetine 60 mg capsule,delayed release 90 mg PO DAILY depression 12/29/15 [History Last Taken 07/24/21] pravastatin 40 mg tablet 40 mg PO QHS cholesterol 08/05/18 [History Last Taken 07/23/21] fluticasone propionate 50 mcg/actuation nasal spray,suspension 2 spray NASAL DAILY allergies 03/18/19 [History Last Taken 07/24/21] primidone 50 mg tablet 100 mg PO TID tremors 03/18/19 [History Last Taken 12/10/21] simethicone 80 mg chewable tablet 80 mg PO TIDCM indigestion 03/18/19 [History Last Taken 07/24/21 12:00] mirabegron 50 mg tablet,extended release 24 hr 50 mg PO QHS bladder control 01/24/20 [History Last Taken 07/23/21] bupropion HCl 150 mg 24 hr tablet, extended release 150 mg PO DAILY DEPRESSION 08/09/20 [History Last Taken 12/10/21] aluminum-mag hydroxide-simethicone 400 mg-400 mg-40 mg/5 mL oral susp 30 ml PO Q4H PRN PRN GI DISTRESS 08/20/20 [History Last Taken 10/22/20] albuterol sulfate 2.5 mg/3 mL (0.083 %) solution for nebulization 2.5 mg (3 mL) inhalation Q2H PRN PRN Dyspnea, wheezing 08/22/20 [Rx Last Taken Unknown] ascorbic acid (vitamin C) 500 mg tablet 500 mg PO DAILY supplement 09/28/20 [History Last Taken 07/24/21] cyanocobalamin (vitamin B-12) 1,000 mcg/mL injection solution 1,000 mcg IM QMONTH supplement 10/23/20 [History Last Taken 08/24/21] ferrous sulfate 325 mg (65 mg iron) tablet 325 mg PO DAILY IRON 10/23/20 [History Last Taken 07/24/21] Probiotic 1 cap PO/SL DAILY Check with primary doctor 07/24/21 [History Last Taken 07/23/21] omeprazole 40 mg capsule,delayed release 40 mg PO DAILY Check with primary doctor 07/24/21 [History Last Taken 12/10/21] nystatin 100,000 unit/gram topical powder 1 applic topical TID PRN Skin Irritation 07/30/21 [History Last Taken Unknown] acetaminophen 325 mg tablet (Tylenol) 650 mg PO Q6H PRN PRN Pain Score 1-10/Temp > 100.7 F #1 TAB 08/14/21 [Rx Last Taken Unknown] furosemide 20 mg tablet 60 mg PO DAILY #0 tabs 08/14/21 [Rx Last Taken Unknown] oxybutynin chloride 5 mg tablet 5 mg PO DAILY 09/03/21 [History Last Taken 12/10/21] ondansetron HCl 8 mg tablet 8 mg PO Q8H PRN PRN Nausea 7 days #20 TABLETS 09/04/21 [Rx Last Taken Unknown] phenazopyridine 200 mg tablet (Pyridium) 200 mg PO TID PRN PRN Bladder Spasms 7 days #30 tabs 09/04/21 [Rx Last Taken Unknown] apixaban 5 mg tablet (Eliquis) 5 mg PO BID 09/30/21 [History Last Taken 08/09/22] divalproex 500 mg tablet,delayed release (Depakote) 600 mg PO BID 09/30/21 [History Last Taken 12/10/21] guaifenesin 10 ml PO/SL Q4H PRN PRN Cough 09/30/21 [History Last Taken Unknown] halobetasol propionate 0.05 % topical cream 0.05 applic topical BID 11/03/21 [History Last Taken Unknown] d-mannose 500 mg capsule 2,000 mg PO DAILY 12/05/21 [History Last Taken Unknown] polyethylene glycol 3350 17 gram oral powder packet (Miralax) 17 g PO PRN PRN Constipation 12/05/21 [History Last Taken Unknown] albuterol sulfate 90 mcg/actuation aerosol inhaler (Ventolin HFA) 1 - 2 puff inhalation Q4H PRN PRN Wheezing #1 device 04/14/22 [Rx Last Taken Unknown] dexamethasone 6 mg tablet 6 mg PO DAILY 10 days #10 tabs 04/14/22 [Rx Last Taken Unknown] dexamethasone 6 mg tablet 6 mg PO DAILY 10 days #10 tabs 04/14/22 [Rx Last Taken Unknown] nitrofurantoin monohydrate/macrocrystals 100 mg capsule (Macrobid) 100 mg PO Q12H 7 days #14 caps 06/25/22 [Rx Last Taken Unknown] Allergy/AdvReac Type Severity Reaction Status Date / Time ampicillin [From Unasyn] Allergy Severe Blisters Verified 09/17/22 12:59 on tongue /throat difficulty breathing sore tongue/ warfarin sodium Allergy Severe Low red Verified 09/17/22 12:59 [From Coumadin] blood cells Family History Father Colon cancer Hypertension Mother Hypertension Surgical History H/O cardiac catheterization History of carpal tunnel surgery History of cholecystectomy History of cystoscopy History of embolic filter insertion History of embolic filter insertion History of gastric bypass History of hysterectomy Hx of cystoscopy Hx of cystoscopy S/P hysterectomy Total knee replacement status Social History Smoking Status: Never smoker alcohol intake: current alcohol intake frequency: holidays/special occasions only substance use type: does not use what type of physical activity do you participate in: walking and aerobics frequency: 1-2 times per week ROS ROS ED ROS Narrative Constitutional: No fever, no chills. HEENT: No sore throat. No neck pain. No loss of vision. No rhinorrhea. Cardiovascular: Midsternal to left-sided chest pain. No palpitations. No pedal edema. Respiratory: No cough, no shortness of breath. Abdominal: No abdominal pain. No nausea. No vomiting. Genitourinary: No dysuria. No hematuria. Musculoskeletal: No myalgias. No arthralgias. Neurologic: No headaches. No dizziness. No lightheadedness. Skin: No rash. No change in color. Psychiatric: No depression. No anxiety. EXAM Physical Exam Narrative Exam Narrative: Afebrile. Vital signs noted. HEENT: Normocephalic. Atraumatic. PERRL, EOMI. Neck soft and supple. No point tenderness or step off. Cardiovascular: Regular rate and rhythm. No murmurs, rubs, or gallops appreciated. Reproducible left pectoral pain. Respiratory: No tachypnea. Lungs clear to auscultation bilaterally. Gastrointestinal: Abdomen soft, nontender, with normoactive bowel sounds. No rebound or guarding. Neurological: Awake. Alert. Nonfocal, nonlateralizing. Skin: No rash. Normal color. No pallor. Musculoskeletal: No pedal edema. Full range of motion extremities. Const Vital Signs: 09/17/22 13:00 09/17/22 13:21 09/17/22 13:25 Temperature 97.6 F L Temperature Source Oral Pulse Rate 74 Respiratory Rate 18 Respiratory Effort Normal Non-Labored Blood Pressure 126/61 H Blood Pressure Mean 82 Pulse Ox 94 96 Oxygen Delivery Method Room Air Room Air 09/17/22 15:15 09/17/22 15:23 Temperature Temperature Source Pulse Rate 81 78 Respiratory Rate 16 16 Respiratory Effort Blood Pressure 217/138 H 124/62 H Blood Pressure Mean 164 82 Pulse Ox 97 97 Oxygen Delivery Method Room Air Room Air Heart Score History: Slightly/Non-Suspicious ECG: Normal Age: >/= 65 years Risk Factors: 1 or 2 Risk Factors Troponin: >1 - <3 Normal Limit Score: 4 MDM MDM MDM Narrative Medical decision making narrative: In the differential diagnosis is acute coronary syndrome versus reproducible chest wall pain. While she does have risk factors, given her reproducible chest pain, I do think that her physical therapy may be causing her left-sided chest and arm pain. RN protocol for chest pain was instituted. She cannot take aspirin secondary to gastric bypass surgery. I reviewed her laboratory work. She is neutropenic with a WBC count of 3.3, hemoglobin normal at 12.5, platelet count normal at 200. She has been neutropenic in the past. In review of her prior medical records, she has had issues with anxiety which I feel may be contributing to her symptoms additionally. I reviewed her electrolyte panel which shows elevated potassium of 5.2, but she has normal renal function with a creatinine of 0.88, I do not feel that Kayexalate is indicated. BUN slightly elevated at 19 once again with a normal creatinine of 0.88. Initial high-sensitivity troponin is 8. 2-hour repeat is 8 for a delta of 0. Chest x-ray interpreted by myself in 1 view shows no acute process, no pneumonia or pneumothorax. I reviewed the radiology report which confirms my independent interpretation. EKG was obtained and also interpreted by myself which demonstrates sinus rhythm with first-degree AV block at 72 bpm without ectopy or acute ST changes. No STEMI, no significant change from EKG that was reviewed dated November 19, 2021. At this point in time, I do not feel that she requires observation or admission to the hospital, and that she has been ruled out for cardiac chest pain with biomarkers. I do think that she may have more chest wall tenderness secondary to her physical therapy. She will follow-up with her primary care physician. Return instructions to the emergency department were reviewed. Disposition is discharged home in stable condition. History & Record Review Discussion w/independent historian: Patient and Family Additional record(s) reviewed:: Prior ED visit and Prior labs Lab Data Attestation: I reviewed the patient's lab results. Labs: Laboratory Results - last 24 hr 09/17/22 09/17/22 09/17/22 13:05 13:05 15:03 WBC 3.3 L RBC 3.91 L Hgb 12.5 Hct 38.9 MCV 99.5 H MCH 32.0 MCHC 32.1 RDW Std Deviation 48.2 H RDW Coeff of Chani 13.1 Plt Count 200 MPV 9.9 Immature Gran % (Auto) 0.300 Neut % (Auto) 55.5 Lymph % (Auto) 29.8 [place] % (Auto) 9.5 Eos % (Auto) 3.7 Baso % (Auto) 1.2 H Absolute Neuts (auto) 1.8 L Absolute Lymphs (auto) 0.97 Nucleated RBC % 0 Sodium 137 Potassium 5.2 H Chloride 109 H Carbon Dioxide 25.0 Anion Gap 3 L BUN 19 H Creatinine 0.88 Estim Creat Clear Calc 48.94 Est GFR (MDRD) Af Amer 80 Est GFR (MDRD) Non-Af 66 BUN/Creatinine Ratio 21.6 H Glucose 103 Calcium 8.2 L Troponin I High Sens 8 8 Radiography Diagnostic Testing: Clinical Impression(s) from Imaging Studies Chest X-Ray 09/17/22 13:25 IMPRESSION: No acute abnormality is seen. Electronically Signed: Joshua Rosario MD at 13:46 EDT , Discharge Plan Triage Chief Complaint: Chest Pain ED Provider: Jhonatan Lopes Dx/Rx/DC Orders Clinical Impression: Chest pain, Left arm pain Instructions: ED Chest Pain, Uncertain Cause, ED Strain Chest Wall, ED Pain, Acute, Uncertain Cause Prescriptions: No Action cholecalciferol (vitamin D3) [Vitamin D3] 1,000 UNIT tablet 1,000 unit PO DAILY Label Comments: vitamin duloxetine 60 MG capsule 90 mg PO DAILY Label Comments: DEPRESSION/ANXIETY pravastatin 40 MG tablet 40 mg PO QHS primidone 50 MG tablet 100 mg PO TID fluticasone propionate 1 SPRAY spray,suspension 2 spray NASAL DAILY simethicone 80 MG tablet 80 mg PO TIDCM mirabegron 50 MG tablet extended release 24 hr 50 mg PO QHS bupropion HCl 150 MG tablet extended release 24 hr 150 mg PO DAILY alum-mag hydroxide-simeth 355 ML suspension 30 ml PO Q4H PRN PRN (Reason: GI DISTRESS) albuterol sulfate 2.5 MG/3 ML solution for nebulization 2.5 mg INHALATION Q2H PRN PRN (Reason: Dyspnea, wheezing) 0RF ascorbic acid (vitamin C) 500 MG tablet 500 mg PO DAILY cyanocobalamin (vitamin B-12) 1,000 mcg/mL Solution 1,000 mcg IM QMONTH Rx Instructions: states last had in August is due the 4th of each month ferrous sulfate 325 mg (65 mg iron) Tablet 325 mg PO DAILY omeprazole 40 mg capsule,delayed release(DR/EC) 40 mg PO DAILY Probiotic 1 cap PO/SL DAILY nystatin 100,000 unit/gram Powder 1 applic TOPICAL TID PRN (Reason: Skin Irritation) acetaminophen [Tylenol] 325 mg Tablet 650 mg PO Q6H PRN PRN (Reason: Pain Score 1-10/Temp > 100.7 F) Qty: 1 0RF furosemide 20 mg Tablet 60 mg PO DAILY Qty: 0 0RF oxybutynin chloride 5 mg Tablet 5 mg PO DAILY ondansetron HCl 8 MG tablet 8 mg PO Q8H PRN PRN (Reason: Nausea) 7 Days Qty: 20 0RF phenazopyridine [Pyridium] 200 MG tablet 200 mg PO TID PRN PRN (Reason: Bladder Spasms) 7 Days Qty: 30 0RF divalproex [Depakote] 500 mg Tablet,Delayed Release (Dr/Ec) 600 mg PO BID Eliquis 5 mg Tablet 5 mg PO BID guaifenesin 10 ml PO/SL Q4H PRN PRN (Reason: Cough) halobetasol propionate 0.05 % cream 0.05 applic TOPICAL BID polyethylene glycol 3350 [Miralax] 17 gram Powder In Packet 17 g PO PRN PRN (Reason: Constipation) d-mannose 500 mg Capsule 2,000 mg PO DAILY dexamethasone 6 mg tablet 6 mg PO DAILY 10 Days Qty: 10 0RF albuterol sulfate [Ventolin HFA] 90 mcg/actuation HFA aerosol inhaler 1 - 2 puff inhalation Q4H PRN PRN (Reason: Wheezing) Qty: 1 0RF dexamethasone 6 mg tablet 6 mg PO DAILY 10 Days Qty: 10 0RF nitrofurantoin monohyd/m-cryst [Macrobid] 100 mg capsule 100 mg PO Q12H 7 Days Qty: 14 0RF Rx Instructions: must administer with a meal/food Primary Care Provider: Gonzales Pinto Referrals: Gonzales Pinto MD [Primary Care Provider] - 3-5 Days Disposition Disposition: Home, Self Care
[2022-09-17 13:56] LABS: Anion Gap 3 (5-15); BUN 19 mg/dL (7-18); BUN/Creat Ratio 21.6 RATIO (10-20); Calcium,Total 8.2 mg/dL (8.5-10.1); Chloride 109 mmol/L (98-107); Creatinine, Serum 0.88 mg/dL (0.55-1.02); EST Glomerular Filtration Rate 66 mL/min (>60); Est Glom Filt Rate - Afr Amer 80 mL/min (>60); Estimated Creatinine Clearance 48.94 ml/min; Glucose 103 mg/dL (74-106); Potassium 5.2 mmol/L (3.5-5.1); Sodium Level 137 mmol/L (136-145); Troponin-I HS (w/2H Reflex) 8 pg/mL (3.0-54.0)
[2022-09-17] MEDS: Acetaminophen 325 MG Tablet 650 MG PO (15:03)
[2022-09-17 15:15] VITALS: BP 217/138; PULSE 81; RESP 16; O2SAT 97
[2022-09-17 15:23] VITALS: BP 124/62; PULSE 78; RESP 16; O2SAT 97
[2022-09-17 15:31] LABS: Reflex Troponin-HS? (from REC) Y
[2022-09-17 16:25] LABS: Troponin-I HS 8 pg/mL (3.0-54.0)
== END 2022-09-17 18:13 | disposition home or self-care (01) ==
PROVIDERS: Emergency Provider Emergency Medicine; PCP Family Medicine; Visit Provider Emergency Medicine
DX: R07.9 Chest pain, unspecified (principal); E11.40 Type 2 diabetes mellitus with diabetic neuropathy, unspecified; M79.602 Pain in left arm; Z79.899 Other long term (current) drug therapy; F41.8 Other specified anxiety disorders; E78.00 Pure hypercholesterolemia, unspecified; K21.9 Gastro-esophageal reflux disease without esophagitis; Z79.01 Long term (current) use of anticoagulants; Z86.718 Personal history of other venous thrombosis and embolism; T14.8XXA Other injury of unspecified body region, initial encounter
CPT/HCPCS: 36415; 71045; 80048; 84484; 85025; 93005; 99285; A4216

== ENCOUNTER 2022-10-07 09:30 | Day surgery (SDC) | payer MEDICARE, MEDICAID, SELFPAY ==
[2022-10-07 09:59] VITALS: BP 128/92; PULSE 71; RESP 16; TEMP 36.6; O2SAT 98; BMI 47.6
[2022-10-07] MEDS: Lidocaine 1% (30 ml sdv) 30 ML Vial (10:06)
[2022-10-07] MEDS: MethylPREDNISolone Acetate 80 MG/ML Vial (10:06)
[2022-10-07] MEDS: Bupivacaine 0.25% 30 ML Vial (10:06)
[2022-10-07] MEDS: Lactated Ringers 1,000 ML 15 ML IV (10:07)
--- NOTE | 2022-10-07 10:34 | RAD_ITS ---
PROCEDURE: Left L4-S1 medial branch nerve block. DATE OF EXAMINATION: October 07, 2022. INDICATION: Female, 77 years old. Chronic low back pain. FLUOROSCOPY TIME (if supplied): (17.3 seconds) minutes/seconds. 5.78 mGy. 4 fluoroscopic images were submitted. RAD/Lumbar Spine 2 or 3 Views IMPRESSION: Intraoperative imaging provided for left L4-S1 medial branch nerve block. Electronically Signed: Joshua Rosario MD at 13:05 EDT ,
[2022-10-07 10:54] VITALS: BP 114/61; BP 128/92; PULSE 71; RESP 14; TEMP 36.6; O2SAT 99
[2022-10-07 10:55] VITALS: BP 114/61; BP 128/92; PULSE 73; RESP 14; O2SAT 93
[2022-10-07 11:00] VITALS: BP 128/68; BP 128/92; PULSE 66; RESP 18; O2SAT 93
[2022-10-07 11:10] VITALS: BP 128/92; BP 131/74; PULSE 67; RESP 14; TEMP 36.1; O2SAT 94
[2022-10-07 11:30] VITALS: BP 128/92
--- NOTE | 2022-10-07 12:08 | PCM.OPRPT ---
Report of Operation Date of Procedure: 10/07/22 Description of Surgical Findings:: PREOPERATIVE DIAGNOSIS: Lumbosacral spondylosis, lumbosacral generative disc disease, lumbar facet arthropathy POSTOPERATIVE DIAGNOSIS: Lumbosacral spondylosis, lumbosacral generative disc disease, lumbar facet arthropathy PROCEDURE PERFORMED: Left-sided lumbar medial branch block at L4, L5, and S1. ANESTHESIA: MAC. BLOOD LOSS: Minimal. COMPLICATIONS: None. DESCRIPTION OF PROCEDURE: History and physical of today was reviewed. Risks and benefits of the procedure were explained. The patient understood and agreed to proceed. Informed consent was obtained. IV inserted per routine protocol. The patient was taken to the operating room and placed in the prone position with a pillow positioned underneath the abdomen. The left side of her lower back was prepped and draped in a sterile fashion using iodine x3. Under fluoroscopy on oblique view, the L3 through S1 vertebral bodies were visualized. The skin and subcutaneous tissue was anesthetized with approximately 5 mL of 1% lidocaine using a 25-gauge regular needle. Under direct visualization with fluoroscopy, at approximately 25-degree angle starting on the left L3, ending on the left S1, passing through the L4 and L5, using a 22-gauge 3-1/2-inch spinal needle, the needle was advanced via the skin. The tip of the needle was maneuvered and directed towards the superior medial gutter of the transverse process at the vicinity of the medial branch. Once tip of the needle was in contact with the bone, the needle was pulled approximately 2 mm off the bone. After negative aspiration of blood or CSF and confirmation on AP as well as oblique view, a total of 8 mL of preservative-free 0.25% Marcaine was injected in divided doses between those four levels. The needles were then removed intact. The patient experienced no sign or symptoms of intrathecal or intravascular injection, The patient experienced no paresthesia. The procedure was completed without any apparent difficulty or any complications. The patient appeared to tolerate it well. ASSESSMENT AND PLAN: This is a 77-year-old female with lumbosacral spondylosis, lumbosacral generative disc disease, lumbar facet arthropathy status post left-sided lumbar medial branch block at L4-S1, patient will continue current medications, patient will follow approximately 1 to 2 weeks for reevaluation.
== END 2022-10-07 11:38 | disposition home or self-care (01) ==
LOC: SDC 09:33 → AC 09:39
PROVIDERS: PCP Family Medicine; Referring Provider Anesthesiology Pain Medicine; Visit Provider Anesthesiology Pain Medicine
PROC: 3E0S3BZ Introduction of Anesthetic Agent into Epidural Space, Percutaneous Approach (ICD-10-PCS; CPT 62322; principal; 2022-10-07 11:15)
DX: M47.816 Spondylosis without myelopathy or radiculopathy, lumbar region (principal); M47.817 Spondylosis without myelopathy or radiculopathy, lumbosacral region; I10 Essential (primary) hypertension
CPT/HCPCS: 64494; 64493; 64483; 72100; J7120

== ENCOUNTER → 2022-10-22 | Outpatient (REF) | payer MEDICARE, MEDICAID, SELFPAY ==
[2022-10-23 07:35] LABS: Mucous, Urine 0 SEEN /hpf (<or=2+); Red Blood Cells-Urine 0 SEEN /hpf (0-5)
[2022-10-23 08:02] LABS: Color, Urine Yellow (Yellow); Glucose, Dipstick Normal (Normal); Ketone-Dipstick Negative (Negative); Leukocyte Esterase-Dipstick 25 /ul (Negative); Nitrite-Dipstick Negative (Negative); Occult Blood-Urine Negative /ul (Negative); Protein-Dipstick 15 mg/dl (Negative); Urine Bilirubin Dipstick Negative (Negative); Urine Clarity Sl. Cloudy (Clear); Urine Urobilinogen Normal (Normal)
[2022-10-23 08:21] LABS: Bacteria 1+ /hpf (None Seen); Calcium Oxalate Crystals Ur 2+ /hpf (<or=2+); Squamous Epithelial Cells - UA 0-5 SEEN /hpf (5-10); White Blood Cells 0-5 SEEN /hpf (0-5)
== END ==
LOC: OLS.SWAL 18:30
PROVIDERS: PCP Family Medicine
DX: N39.0 Urinary tract infection, site not specified (principal)
CPT/HCPCS: 81001; 81002; 87086; 87088

== ENCOUNTER → 2022-11-11 | Outpatient (CLI) | payer MEDICARE, MEDICAID, SELFPAY ==
[2022-11-11 12:59] LABS: Vitamin B12 605 pg/mL (211-911); Vitamin D,25 Hydroxy 38.1 ng/mL
[2022-11-11 13:11] LABS: ALB/GLOB Ratio 0.9 RATIO (0.9-2.4); AST(SGOT) 42 U/L (15-37); Alanine Aminotransfer ALT/SGPT 67 U/L (13-56); Albumin, Serum 3.4 g/dL (3.2-5.0); Alkaline Phosphatase 143 U/L (45-117); Anion Gap 10 (5-15); BUN 33 mg/dL (7-18); BUN/Creat Ratio 48.1 RATIO (10-20); Calcium,Total 8.6 mg/dL (8.5-10.1); Chloride 107 mmol/L (98-107); Cholesterol 168 mg/dL (200); Creatinine, Serum 0.69 mg/dL (0.55-1.02); EST Glomerular Filtration Rate 88 mL/min (>60); Est Glom Filt Rate - Afr Amer 107 mL/min (>60); Globulin 3.6 g/dL (2.2-4.2); Glucose 95 mg/dL (74-106); High Density Lipoprotein 82 mg/dL; Magnesium 2.1 mg/dL (1.6-2.6); Phosphorus 4.2 mg/dL (2.5-4.9); Potassium 4.3 mmol/L (3.5-5.1); Sodium Level 140 mmol/L (136-145); Thyroid Stim Hormone (TSH) 5.46 uIU/mL (0.358-3.74); Triglycerides 69 mg/dL; Very Low Density Lipoprotein 14 mg/dL (5-40)
[2022-11-12 14:09] LABS: H. Pylori Antibody (IgG) 0.74 (0.00-0.79)
[2022-11-14 14:33] LABS: T4 Free Direct 0.94 ng/dL (0.76-1.46)
== END | disposition home or self-care (01) ==
LOC: MFPLAB 11:06
PROVIDERS: PCP Family Medicine; Visit Provider Family Medicine
DX: R79.89 Other specified abnormal findings of blood chemistry (principal); E11.9 Type 2 diabetes mellitus without complications; R10.13 Epigastric pain; E55.9 Vitamin D deficiency, unspecified; E53.8 Deficiency of other specified B group vitamins; E83.51 Hypocalcemia
CPT/HCPCS: 36415; 80053; 80061; 82306; 82330; 82607; 83735; 83970; 84100; 84439; 84443; 86677

== ENCOUNTER 2022-11-25 11:13 | Day surgery (SDC) | payer MEDICARE, MEDICAID, SELFPAY ==
[2022-11-25] VITALS (7 sets, daily range): BP systolic 101–146; BP diastolic 45–101; PULSE 65–71; RESP 16–100; TEMP 36.4–37.4; O2SAT 18–100; BMI 45.8
[2022-11-25] MEDS: Lactated Ringers 1,000 ML 15 ML IV (12:10)
--- NOTE | 2022-11-25 12:41 | RAD_ITS ---
PROCEDURE: Bilateral L4-S1 medial branch nerve block. DATE OF EXAMINATION: November 25, 2022. INDICATION: Female, 77 years old. Chronic low back pain. FLUOROSCOPY TIME (if supplied): (29 seconds) minutes/seconds. 6 images were submitted. 9.22 mGy RAD/L/S Spine Min 4 Views IMPRESSION: Intraoperative imaging provided for bilateral L4-S1 medial branch nerve block. Electronically Signed: Joshua Rosario MD at 15:45 EDT ,
[2022-11-25] MEDS: Lidocaine 1% (5 ml sdv) 5 ML Vial (12:44)
[2022-11-25] MEDS: Bupivacaine 0.25% 30 ML Vial (12:44)
[2022-11-25] MEDS: MethylPREDNISolone Acetate 80 MG/ML Vial (12:44)
--- NOTE | 2022-11-25 13:28 | PCM.OPRPT ---
Report of Operation Date of Procedure: 11/25/22 Pre-Operative Diagnosis: Lumbosacral spondylosis, lumbosacral degenerative disc disease, lumbar facet arthropathy Post-Operative Diagnosis: Lumbosacral spondylosis, lumbosacral degenerative disc disease, lumbar facet arthropathy Description of Surgical Findings:: PROCEDURE PERFORMED: Bilateral lumbar medial branch block at L4, L5, and S1. ANESTHESIA: MAC. BLOOD LOSS: Minimal. COMPLICATIONS: None. DESCRIPTION OF PROCEDURE: History and physical of today was reviewed. Risks and benefits of the procedure were explained. The patient understood and agreed to proceed. Informed consent was obtained. IV inserted per routine protocol. The patient was taken to the operating room and placed in the prone position with a pillow positioned underneath the abdomen. The lower back area was prepped and draped in a sterile fashion using iodine x3. Under fluoroscopy guidance on AP view, the L4 through S1 vertebral bodies were visualized. The skin and subcutaneous tissue was anesthetized with approximately 5 mL of 1% lidocaine using a 25-gauge regular needle. Under direct visualization with fluoroscopy, at approximately 25-degree angle, starting on the left L4, ending on the right L4, passing through the L5 and S1 bilaterally, using a 22-gauge 3-1/2-inch spinal needle, the needle was advanced via the skin. The tip of the needle was maneuvered and directed towards the superior medial gutter of the transverse process at the vicinity of the medial branch. Once tip of the needle was in contact with the bone, the needle was pulled approximately 2 mm off the bone. After negative aspiration for blood or CSF and confirmation on AP, oblique as well as lateral view, a total of 12 mL of preservative-free 0.25% Marcaine with 80 mg of Depo-Medrol was injected in divided doses between those six levels. The needles were then removed intact. The patient experienced no sign or symptoms of intrathecal or intravascular injection. The patient experienced no paresthesia. The procedure was completed without any apparent difficulty or any complications. The patient appeared to tolerate it well. ASSESSMENT AND PLAN: This is a 77-year-old female with lumbosacral spondylosis, lumbosacral degenerative disc disease, lumbar facet arthropathy status post bilateral lumbar medial branch block at L4-S1, patient will continue her current medications, patient will follow approximately 1 to 2 weeks for reevaluation.
== END 2022-11-25 13:40 | disposition home or self-care (01) ==
LOC: SDC 11:16 → AC 11:21
PROVIDERS: PCP Family Medicine; Referring Provider Anesthesiology Pain Medicine; Visit Provider Anesthesiology Pain Medicine
PROC: 3E0S3BZ Introduction of Anesthetic Agent into Epidural Space, Percutaneous Approach (ICD-10-PCS; CPT 62322; principal; 2022-11-25 12:55)
DX: M47.816 Spondylosis without myelopathy or radiculopathy, lumbar region (principal); E11.9 Type 2 diabetes mellitus without complications; M51.37 Other intervertebral disc degeneration, lumbosacral region; M47.817 Spondylosis without myelopathy or radiculopathy, lumbosacral region; F32.9 Major depressive disorder, single episode, unspecified; Z79.01 Long term (current) use of anticoagulants; K21.9 Gastro-esophageal reflux disease without esophagitis; E78.5 Hyperlipidemia, unspecified
CPT/HCPCS: 64493; 64494; 64483; 72110; J7120

== ENCOUNTER → 2022-12-25 | Outpatient (CLI) | payer MEDICARE, MEDICAID, SELFPAY ==
--- NOTE | 2022-12-25 11:12 | RAD_ITS ---
INDICATION: left knee pain EXAMINATION/TECHNIQUE: X-RAY - LEFT XR Knee Complete 4 Views or More 4 VIEWS COMPARISON: None. FINDINGS: BONES: Surgical hardware femoral and tibial components of the knee prosthesis appear well situated in anatomic alignment. No fracture demonstrated. The bones are osteopenic. JOINTS: No dislocation. SOFT TISSUES: Unremarkable. RAD/Knee 4 or More Views IMPRESSION: Total knee arthroplasty. No evidence of fracture. Electronically Signed: Nikki Arriaza MD at 19:05 EDT ,
== END | disposition home or self-care (01) ==
LOC: MTRAD 11:11
PROVIDERS: PCP Family Medicine; Referring Provider Family Medicine; Visit Provider Family Medicine
DX: M25.569 Pain in unspecified knee (principal)
CPT/HCPCS: 73564

== ENCOUNTER 2022-12-30 18:56 | Emergency (ER) | payer MEDICARE, MEDICAID, SELFPAY ==
[2022-12-30 18:57] VITALS: BP 155/75; PULSE 83; RESP 14; TEMP 36.3; O2SAT 97
--- NOTE | 2022-12-30 19:20 | EKG12_ITS ---
Test Reason : CHEST PAIN Blood Pressure : / mmHG Vent. Rate : 083 BPM Atrial Rate : 083 BPM P-R Int : 176 ms QRS Dur : 094 ms QT Int : 368 ms P-R-T Axes : 026 -08 025 degrees QTc Int : 432 ms Normal sinus rhythm Normal ECG Confirmed by SILVIA GUNTER, DALTON ([id number]), online editor MARIO ARROYO ([id number]) on 01/01/2023 10:14:58 AM Referred By: RICK Confirmed By:DALTON VEGA MD
[2022-12-30 19:46] LABS: Absolute Lymphocyte Count 1.39 X10^3/uL (0.83-4.51); Absolute Neutrophil Count 3.7 X10^3/uL (2.0-7.7); Basophil# 0.06 X10^3/uL; Eosinophil# 0.09 X10^3/uL; Eosinophils% 1.5 % (0-5); Hematocrit 42.9 % (37-47); Hemoglobin 13.6 g/dL (12.0-15.0); Lymphocyte # 1.39 X10^3/ul (0.83-4.51); Lymphocyte % 23.9 % (19-41); Mean Corp Hgb Conc 31.7 g/dL (32-36); Mean Corpuscular Hgb 32.3 pg (27.0-32.0); Mean Corpuscular Volume 101.9 fL (81-99); Mean Platelet Vol. 9.8 fl (6.2-12.0); Monocyte# 0.57 X10^3/uL; Monocyte% 9.8 % (0-10); NRBC Flagged by Analyzer 0 % (0-5); Neutrophil # 3.66 X10^3/uL (2.7-7.7); Neutrophil % 62.9 % (47-70); Platelet Count 251 K/mm3 (150-450); RBC Distribution Width CV 13.3 % (11.6-14.6); RBC Distribution Width SD 50.8 fl (35.1-43.9); Red Blood Count 4.21 M/mm3 (4.2-5.4); White Blood Count 5.8 K/mm3 (4.4-11.0)
[2022-12-30 20:10] LABS: Anion Gap 5 (5-15); BUN 24 mg/dL (7-18); BUN/Creat Ratio 25.3 RATIO (10-20); Calcium,Total 8.2 mg/dL (8.5-10.1); Chloride 106 mmol/L (98-107); Creatinine, Serum 0.95 mg/dL (0.55-1.02); EST Glomerular Filtration Rate 61 mL/min (>60); Est Glom Filt Rate - Afr Amer 73 mL/min (>60); Glucose 84 mg/dL (74-106); Potassium 4.3 mmol/L (3.5-5.1); Sodium Level 137 mmol/L (136-145); Troponin-I HS (w/2H Reflex) 8 pg/mL (3.0-54.0)
[2022-12-30 20:19] VITALS: BP 127/80; PULSE 74; RESP 22; O2SAT 98
[2022-12-30 20:21] VITALS: O2SAT 98
--- NOTE | 2022-12-30 20:45 | RAD_ITS ---
INDICATION: chest pain EXAMINATION/TECHNIQUE: X-RAY - XR Chest 1 View AP portable. 8:48 PM. COMPARISON: 09/17/2022 FINDINGS: LINES/DEVICES: None. LUNGS: No consolidation. No pneumothorax. MEDIASTINUM: Unremarkable. CARDIAC S[place]ETTE: Not enlarged. BONES AND SOFT TISSUES: Degenerative changes in the dorsal spine and shoulders. Surgical clips upper abdomen. RAD/Chest 1 View (Portable) IMPRESSION: No evidence of active intrathoracic disease. Electronically Signed: Nikki Arriaza MD at 21:16 EDT ,
[2022-12-30] MEDS: Morphine 4 MG/ML Syringe IV ×2 (21:02→23:41)
[2022-12-30] MEDS: Aspirin 81 MG TAB.CHEW 324 MG PO (21:03)
[2022-12-30 21:20] VITALS: BP 131/105; PULSE 87; RESP 19; O2SAT 95
[2022-12-30 21:34] VITALS: BMI 48.3
[2022-12-30 21:42] LABS: Reflex Troponin-HS? (from REC) Y
[2022-12-30 22:00] VITALS: PULSE 88; RESP 25; O2SAT 94
--- NOTE | 2022-12-30 22:00 | ED.VIS.CHEST ---
HPI History of Present Illness Chief Complaint: Chest Pain Informant: patient Onset/Context/Timing Onset: Today Activity at onset: gradual Timing: Continuous Quality: Positive for Sharp Location: Left Chest Worsened By: Movement of Arm, Movement of Torso, Palpation and Breathing Relieved By: Nothing Associated Symptoms: Positive for Dyspnea; Negative for Nausea, Vomiting, Diaphoresis, Cough, Fever, Lightheadedness, Acid Reflux or Palpitations Narrative Narrative: Patient presents with left-sided chest pain that began today. Patient states it began when she woke up today. Patient states it has been constant throughout the day today. Patient describes her pain as sharp. Patient states the pain is over the left side of her chest. Patient states it is worse with movement and deep breathing. Patient admits to some shortness of breath but denies any nausea or vomiting. Patient denies any diaphoresis. Patient denies any cough or fever. PE Risk Factors: Positive for Prior DVT or PE and OCP + Smoking + >/=35; Negative for Recent Travel/Surgery, Recent Immobilization or Cancer PFSH PFS Medical History Anxiety and depression Arthritis Back pain Bladder disease Carpal tunnel syndrome Cataracts, both eyes Chronic anticoagulation Chronic neuropathic pain Chronic pain following surgery or procedure Chronic UTI Closed left arm fracture Cystitis Depression Diabetes Diabetic neuropathy associated with type 2 diabetes mellitus DM II (diabetes mellitus, type II), controlled Facet arthropathy, lumbar FHx: cholecystectomy GERD (gastroesophageal reflux disease) GERD (gastroesophageal reflux disease) GI bleed Hematoma Hiatal hernia High cholesterol History of DVT (deep vein thrombosis) History of edema History of gallstones History of pain when walking History of stress test HLD (hyperlipidemia) Hx of peripheral neuropathy Hydronephrosis 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 Injury of head and neck Kidney stones Left shoulder pain Low iron Morbid obesity with BMI of 45.0-49.9, adult Neuropathy Non-smoker Non-smoker Normocytic anemia ROXIE (obstructive sleep apnea) Osteoarthritis Polycystic ovaries Primary osteoarthritis, left shoulder Pulmonary embolism Restless legs Segmental and somatic dysfunction of cervical region Segmental and somatic dysfunction of lumbar region Segmental and somatic dysfunction of pelvic region Segmental and somatic dysfunction of thoracic region Shortness of breath on exertion Uses wheelchair Walker as ambulation aid Wears dentures Wears hearing aid Home Medications cholecalciferol (vitamin D3) 25 mcg (1,000 unit) tablet (Vitamin D3) 1,000 unit PO DAILY vitamin 12/29/15 [History Last Taken 07/24/21] pravastatin 40 mg tablet 40 mg PO QHS cholesterol 08/05/18 [History Last Taken 07/23/21] fluticasone propionate 50 mcg/actuation nasal spray,suspension 2 spray NASAL DAILY allergies 03/18/19 [History Last Taken 07/24/21] primidone 50 mg tablet 100 mg PO TID tremors 03/18/19 [History Last Taken 12/10/21] simethicone 80 mg chewable tablet 80 mg PO TIDCM indigestion 03/18/19 [History Last Taken 07/24/21 12:00] mirabegron 50 mg tablet,extended release 24 hr 50 mg PO QHS bladder control 01/24/20 [History Last Taken 07/23/21] bupropion HCl 150 mg 24 hr tablet, extended release 150 mg PO DAILY DEPRESSION 08/09/20 [History Last Taken 12/10/21] aluminum-mag hydroxide-simethicone 400 mg-400 mg-40 mg/5 mL oral susp 30 ml PO Q4H PRN PRN GI DISTRESS 08/20/20 [History Last Taken 10/22/20] albuterol sulfate 2.5 mg/3 mL (0.083 %) solution for nebulization 2.5 mg (3 mL) inhalation Q2H PRN PRN Dyspnea, wheezing 08/22/20 [Rx Last Taken Unknown] ascorbic acid (vitamin C) 500 mg tablet 500 mg PO DAILY supplement 09/28/20 [History Last Taken 07/24/21] cyanocobalamin (vitamin B-12) 1,000 mcg/mL injection solution 1,000 mcg IM QMONTH supplement 10/23/20 [History Last Taken 08/24/21] Probiotic 1 cap PO/SL DAILY Check with primary doctor 07/24/21 [History Last Taken 07/23/21] omeprazole 40 mg capsule,delayed release 40 mg PO DAILY Check with primary doctor 07/24/21 [History Last Taken 12/10/21] nystatin 100,000 unit/gram topical powder 1 applic topical TID PRN Skin Irritation 07/30/21 [History Last Taken Unknown] furosemide 20 mg tablet 60 mg (3 x 20 mg) PO DAILY #0 tabs 08/14/21 [Rx Last Taken Unknown] oxybutynin chloride 5 mg tablet 5 mg PO DAILY 09/03/21 [History Last Taken 12/10/21] ondansetron HCl 8 mg tablet 8 mg PO Q8H PRN PRN Nausea 7 days #20 TABLETS 09/04/21 [Rx Last Taken Unknown] phenazopyridine 200 mg tablet (Pyridium) 200 mg PO TID PRN PRN Bladder Spasms 7 days #30 tabs 09/04/21 [Rx Last Taken Unknown] apixaban 5 mg tablet (Eliquis) 5 mg PO BID 09/30/21 [History Last Taken 10/04/22] divalproex 500 mg tablet,delayed release (Depakote) 600 mg PO BID 09/30/21 [History Last Taken 12/10/21] guaifenesin 10 ml PO/SL Q4H PRN PRN Cough 09/30/21 [History Last Taken Unknown] halobetasol propionate 0.05 % topical cream 0.05 applic topical BID 11/03/21 [History Last Taken Unknown] d-mannose 500 mg capsule 2,000 mg PO DAILY 12/05/21 [History Last Taken Unknown] polyethylene glycol 3350 17 gram oral powder packet (Miralax) 17 g PO PRN PRN Constipation 12/05/21 [History Last Taken Unknown] albuterol sulfate 90 mcg/actuation aerosol inhaler (Ventolin HFA) 1 - 2 puff inhalation Q4H PRN PRN Wheezing #1 device 04/14/22 [Rx Last Taken Unknown] nitrofurantoin monohydrate/macrocrystals 100 mg capsule (Macrobid) 100 mg PO Q12H 7 days #14 caps 06/25/22 [Rx Last Taken Unknown] Allergy/AdvReac Type Severity Reaction Status Date / Time ampicillin [From Unasyn] Allergy Severe Blisters Verified 12/30/22 18:57 on tongue /throat difficulty breathing sore tongue/ warfarin sodium Allergy Severe Low red Verified 12/30/22 18:57 [From Coumadin] blood cells Family History Father Colon cancer Hypertension Mother Hypertension Surgical History H/O cardiac catheterization History of carpal tunnel surgery History of cholecystectomy History of cystoscopy History of embolic filter insertion History of embolic filter insertion History of gastric bypass History of hysterectomy Hx of cystoscopy Hx of cystoscopy S/P hysterectomy Total knee replacement status Social History Smoking Status: Never smoker alcohol intake: current alcohol intake frequency: holidays/special occasions only substance use type: does not use what type of physical activity do you participate in: walking and aerobics frequency: 1-2 times per week ROS ROS ED Constitutional Constitutional ED: Denies chills or fever(s) Eyes Eyes: Denies blurry vision or change in vision ENT ENT ED: Reports rhinorrhea; Denies sore throat Cardiovascular Cardiovascular: Reports chest pain; Denies palpitations Respiratory/Chest Respiratory/Chest: Reports dyspnea; Denies cough Gastrointestinal Gastrointestinal: Denies abdominal pain, nausea or vomiting Genitourinary Genitourinary ED: Denies dysuria or hematuria Musculoskeletal Musculoskeletal: Reports back pain; Denies neck pain Integumentary Denies abscess or rash Neurologic Neurologic: Denies headache(s) or weakness Allergic/Immunologic Allergic/Immunologic ED: Denies mouth swelling or urticaria EXAM Physical Exam Const Vital Signs: 12/30/22 18:57 12/30/22 20:19 12/30/22 20:21 Temperature 97.4 F L Temperature Source Temporal Pulse Rate 83 74 Respiratory Rate 14 22 H Blood Pressure 155/75 H 127/80 H Blood Pressure Mean 101 95 Pulse Ox 97 98 98 Oxygen Delivery Method Room Air Room Air Room Air 12/30/22 21:20 12/30/22 22:00 Temperature Temperature Source Pulse Rate 87 88 Respiratory Rate 19 H 25 H Blood Pressure 131/105 H Blood Pressure Mean 113 Pulse Ox 95 94 Oxygen Delivery Method Positive well nourished, well developed and obese General Appearance ED: well developed and NAD Nutritional Appearance: obese Neck supple and no JVD Chest Wall Chest: tenderness pectoral muscle left Resp normal respiratory effort and clear to auscultation bilaterally Cardio regular rate and regular rhythm GI soft to palpation, non-tender and non-distended Neuro oriented x3, CN's II-XII intact bilaterally and no sensory deficits noted Sensorium / Orientation: awake and alert Motor Exam: strength 5/5 throughout Psych mental status grossly normal Heart Score History: Slightly/Non-Suspicious ECG: Normal Age: >/= 65 years Risk Factors: 1 or 2 Risk Factors Troponin: </= Normal Limit Score: 3 MDM MDM MDM Narrative Medical decision making narrative: Tension diagnosis includes musculoskeletal pain, cardiac dysrhythmia, cardiac ischemia, pneumonia, pneumothorax, pleurisy, and anxiety. Patient is on Eliquis and has a vena cava filter. Therefore, I do not feel is from a pulmonary embolism. EKG will be obtained to assess for cardiac dysrhythmia and cardiac ischemia. Chest x-ray will be obtained to assess for pneumonia and pneumothorax. CBC will be obtained to assess for leukocytosis and anemia. Basic metabolic profile will be obtained to assess for electrolyte abnormality and renal function. High-sensitivity troponin will be obtained to assess for cardiac ischemia. 2-hour repeat high-sensitivity troponin will be obtained to assess for ongoing cardiac ischemia. Lab Data Attestation: I reviewed the patient's lab results. Lab results narrative: CBC was reviewed and was within normal limits. Basic metabolic profile was reviewed. BUN was slightly elevated at 24. Creatinine was normal. Sensitivity troponin was reviewed and was normal at 8. 2-hour repeat high-sensitivity troponin was normal at 8. Labs: Laboratory Results - last 24 hr 12/30/22 12/30/22 19:30 21:52 WBC 5.8 RBC 4.21 Hgb 13.6 Hct 42.9 MCV 101.9 H MCH 32.3 H MCHC 31.7 L RDW Std Deviation 50.8 H RDW Coeff of Chani 13.3 Plt Count 251 MPV 9.8 Immature Gran % (Auto) 0.900 Neut % (Auto) 62.9 Lymph % (Auto) 23.9 Ellis % (Auto) 9.8 Eos % (Auto) 1.5 Baso % (Auto) 1.0 Absolute Neuts (auto) 3.7 Absolute Lymphs (auto) 1.39 Nucleated RBC % 0 Sodium 137 Potassium 4.3 Chloride 106 Carbon Dioxide 26.0 Anion Gap 5 BUN 24 H Creatinine 0.95 Est GFR (MDRD) Af Amer 73 Est GFR (MDRD) Non-Af 61 BUN/Creatinine Ratio 25.3 H Glucose 84 Calcium 8.2 L Troponin I High Sens 8 8 Radiography Chest X-Ray - ED: 1 View, Read by ED Physician, Read by Radiologist and No Acute Disease Diagnostic Testing: Clinical Impression(s) from Imaging Studies Chest X-Ray 12/30/22 20:45 IMPRESSION: No evidence of active intrathoracic disease. Electronically Signed: Nikki Arriaza MD at 21:16 EDT , Portable 1 view chest x-ray was obtained. On my independent interpretation, lung rivera are clear. There is normal cardiac silhouette. Bony thorax is normal. There is no acute process noted. Radiologist also interpreted the x-ray and agrees. EKG Initial EKG: Attestation: I personally reviewed and interpreted this EKG as follows: Interpretation: Sinus Rhythm (83) and No Acute Injury Pattern Comments: EKG was obtained. On my independent interpretation, it showed a normal sinus rhythm with a rate of 83. KS interval, QRS interval, and QTc intervals were all normal. Merkel was normal. There are no acute ST or T wave changes. Prior EKG tracings: available for review Prior: Unchanged (09/17/2022) Differential Diagnosis Chest pain/SOB: pulmonary embolism Reason(s) PE less likely: Positive for not tachycardic, not hypoxic and patient taking oral anticoagulants, ACS ACS: Positive for no evidence of ACS based on cardiac biomarkers, EKG without ischemia and history not suggestive of ischemia pain, pneumothorax Reason(s) pneumothorax less likely: Positive for bilateral breath sounds and [employer] withhout PTX, pneumonia Reason(s) pneumonia less likely: Positive for no infiltrate on CXR, no elevation in WBC count, no noted fever and symptoms not consistent with acute infection, aortic dissection Reason(s) Aortic dissection less likely:: Positive for normal neurological exam, no widened mediastinum on CXR and no ripping/tearing pain and CHF Reason(s) CHF less likely: Positive for no orthopnea and no evidence of fluid overload on CXR Treatment and Re-Evaluation :: Patient is given aspirin and morphine initially. Patient was advised of her findings. Given that this is reproducible, is likely musculoskeletal or pleurisy. Patient has a HEART score of 3. Patient was advised that this is low risk for acute cardiac event. Patient was still having some pain on reevaluation. Patient was given a dose of Toradol and a repeat dose of morphine. Patient has [place] at home. Patient was instructed to continue this as prescribed. Patient was instructed to follow-up with her primary care physician in 5 to 7 days. Patient understood and was agreeable with the plan. All questions were answered. Discharge Plan Triage Chief Complaint: Chest Pain ED Provider: Teofilo Sheppard Dx/Rx/DC Orders Clinical Impression: Chest pain, Morbid obesity with BMI of 45.0-49.9, adult Instructions: ED Chest Pain, Uncertain Cause Prescriptions: No Action cholecalciferol (vitamin D3) [Vitamin D3] 1,000 UNIT tablet 1,000 unit PO DAILY Patient Comments: vitamin pravastatin 40 MG tablet 40 mg PO QHS primidone 50 MG tablet 100 mg PO TID fluticasone propionate 1 SPRAY spray,suspension 2 spray NASAL DAILY simethicone 80 MG tablet 80 mg PO TIDCM mirabegron 50 MG tablet extended release 24 hr 50 mg PO QHS bupropion HCl 150 MG tablet extended release 24 hr 150 mg PO DAILY alum-mag hydroxide-simeth 355 ML suspension 30 ml PO Q4H PRN PRN (Reason: GI DISTRESS) albuterol sulfate 2.5 MG/3 ML solution for nebulization 2.5 mg INHALATION Q2H PRN PRN (Reason: Dyspnea, wheezing) 0RF ascorbic acid (vitamin C) 500 MG tablet 500 mg PO DAILY cyanocobalamin (vitamin B-12) 1,000 mcg/mL Solution 1,000 mcg IM QMONTH Rx Instructions: states last had in August is due the 4th of each month omeprazole 40 mg capsule,delayed release(DR/EC) 40 mg PO DAILY Probiotic 1 cap PO/SL DAILY nystatin 100,000 unit/gram Powder 1 applic TOPICAL TID PRN (Reason: Skin Irritation) furosemide 20 mg Tablet 60 mg PO DAILY Qty: 0 0RF oxybutynin chloride 5 mg Tablet 5 mg PO DAILY ondansetron HCl 8 MG tablet 8 mg PO Q8H PRN PRN (Reason: Nausea) 7 Days Qty: 20 0RF phenazopyridine [Pyridium] 200 MG tablet 200 mg PO TID PRN PRN (Reason: Bladder Spasms) 7 Days Qty: 30 0RF divalproex [Depakote] 500 mg Tablet,Delayed Release (Dr/Ec) 600 mg PO BID Eliquis 5 mg Tablet 5 mg PO BID guaifenesin 10 ml PO/SL Q4H PRN PRN (Reason: Cough) halobetasol propionate 0.05 % cream 0.05 applic TOPICAL BID polyethylene glycol 3350 [Miralax] 17 gram Powder In Packet 17 g PO PRN PRN (Reason: Constipation) d-mannose 500 mg Capsule 2,000 mg PO DAILY albuterol sulfate [Ventolin HFA] 90 mcg/actuation HFA aerosol inhaler 1 - 2 puff inhalation Q4H PRN PRN (Reason: Wheezing) Qty: 1 0RF nitrofurantoin monohyd/m-cryst [Macrobid] 100 mg capsule 100 mg PO Q12H 7 Days Qty: 14 0RF Rx Instructions: must administer with a meal/food Primary Care Provider: Gonzales Pinto Referrals: Gonzales Pinto MD [Primary Care Provider] - 5-7 Days Disposition Disposition: Home, Self Care
[2022-12-30 22:16] LABS: Troponin-I HS 8 pg/mL (3.0-54.0)
[2022-12-30] MEDS: Ketorolac 15 MG/ML Vial IV (23:41)
== END 2022-12-31 01:04 | disposition home or self-care (01) ==
PROVIDERS: Emergency Provider Emergency Medicine; PCP Family Medicine; Visit Provider Emergency Medicine
DX: R07.9 Chest pain, unspecified (principal); E11.40 Type 2 diabetes mellitus with diabetic neuropathy, unspecified; E66.01 Morbid (severe) obesity due to excess calories; Z68.42 Body mass index [BMI] 45.0-49.9, adult; G47.33 Obstructive sleep apnea (adult) (pediatric); E78.5 Hyperlipidemia, unspecified; Z86.718 Personal history of other venous thrombosis and embolism
CPT/HCPCS: 71045; 80048; 84484; 85025; 93005; 99285; A4216

== ENCOUNTER → 2023-01-12 21:30 | Outpatient (REF) | payer MEDICARE, MEDICAID, SELFPAY ==
[2023-01-13 08:42] LABS: Color, Urine Yellow (Yellow); Glucose, Dipstick Normal (Normal); Ketone-Dipstick Negative (Negative); Leukocyte Esterase-Dipstick 100 /ul (Negative); Nitrite-Dipstick Positive (Negative); Occult Blood-Urine Negative /ul (Negative); Protein-Dipstick Negative (Negative); Urine Bilirubin Dipstick Negative (Negative); Urine Clarity Clear (Clear); Urine Urobilinogen Normal (Normal)
== END ==
LOC: OLS.SWAL 21:30
PROVIDERS: PCP Family Medicine; Referring Provider Urology; Visit Provider Urology
DX: N39.0 Urinary tract infection, site not specified (principal)
CPT/HCPCS: 81002; 87077; 87086; 87088; 87186

== ENCOUNTER → 2023-01-22 | Outpatient (CLI) | payer MEDICARE, MEDICAID, SELFPAY ==
--- NOTE | 2023-01-22 07:55 | RAD_ITS ---
STUDY: X-RAY - ESOPHAGUS (BARIUM SWALLOW) WITH FLUOROSCOPY REASON FOR EXAM: Female, 77 years old. Dyspepsia, vomiting TECHNIQUE: 22 view(s) of the esophagus were obtained following swallowing of barium. FLUOROSCOPY TIME (if supplied): (67 seconds) minutes/seconds. 53.41 mGy COMPARISON: None. FINDINGS: Once again, there is dilatation of the entire esophagus with decreased peristaltic activity. There is a moderate-sized hiatal hernia with gastroesophageal reflux. The patient ingested a 12 mm tablet of barium without any difficulty. The patient is status post subtotal gastrectomy. There is atherosclerotic calcification of the aortic arch with tortuosity of the descending aorta. Normal visualized pulmonary parenchyma. Normal visualized osseous structures of the thorax. RAD/Esophagus Dual Contrast IMPRESSION: Moderate-sized hiatal hernia with gastroesophageal reflux. Decreased esophageal motility. Status post subtotal gastrectomy. Electronically Signed: Joshua Rosario MD at 8:38 EDT ,
== END | disposition home or self-care (01) ==
LOC: RAD 07:36
PROVIDERS: PCP Family Medicine; Referring Provider Family Medicine; Visit Provider Family Medicine
DX: R11.10 Vomiting, unspecified (principal)
CPT/HCPCS: 74221

== ENCOUNTER → 2023-02-05 | Outpatient (REF) | payer MEDICARE, MEDICAID, SELFPAY ==
[2023-02-05 08:44] LABS: Bacteria 0 SEEN /hpf (None Seen); Mucous, Urine 0 SEEN /hpf (<or=2+); Red Blood Cells-Urine 0 SEEN /hpf (0-5)
[2023-02-05 09:25] LABS: Color, Urine Yellow (Yellow); Glucose, Dipstick Normal (Normal); Ketone-Dipstick 5 mg/dl (Negative); Leukocyte Esterase-Dipstick 25 /ul (Negative); Nitrite-Dipstick Negative (Negative); Occult Blood-Urine Negative /ul (Negative); Protein-Dipstick Negative (Negative); Urine Bilirubin Dipstick Negative (Negative); Urine Clarity Sl. Cloudy (Clear); Urine Urobilinogen Normal (Normal)
[2023-02-05 09:35] LABS: Calcium Oxalate Crystals Ur 2+ /hpf (<or=2+); Squamous Epithelial Cells - UA 0-5 SEEN /hpf (5-10); White Blood Cells 0-5 SEEN /hpf (0-5)
== END ==
LOC: OLS.SWAL 01:30
PROVIDERS: PCP Family Medicine; Visit Provider Family Medicine
DX: N39.0 Urinary tract infection, site not specified (principal)
CPT/HCPCS: 81001; 87077; 87086; 87088; 87186

== ENCOUNTER → 2023-02-19 | Outpatient (REF) | payer MEDICARE, MEDICAID, SELFPAY ==
[2023-02-20 09:37] LABS: Color, Urine Yellow (Yellow); Glucose, Dipstick Normal (Normal); Ketone-Dipstick Negative (Negative); Leukocyte Esterase-Dipstick Negative /ul (Negative); Nitrite-Dipstick Positive (Negative); Occult Blood-Urine Negative /ul (Negative); Protein-Dipstick 15 mg/dl (Negative); Specific Gravity, Urine 1.015 (1.002-1.030); Urine Bilirubin Dipstick 1 mg/dL (Negative); Urine Clarity Sl. Cloudy (Clear); Urine Urobilinogen 4 mg/dl (Normal)
== END ==
LOC: OLS.SWAL 13:45
PROVIDERS: PCP Family Medicine; Visit Provider Urology
DX: N39.0 Urinary tract infection, site not specified (principal)
CPT/HCPCS: 81002; 87086; 87088

== ENCOUNTER → 2023-02-25 | Outpatient (CLI) | payer MEDICARE, MEDICAID, SELFPAY ==
--- NOTE | 2023-02-25 13:40 | BD_ITS ---
STUDY: DUAL ENERGY X-RAY ABSORPTIOMETRY / DXA REASON FOR EXAM: Female, 77 years old. V76.12ScreeningBONE DENSITY REASON FOR EXAM TECHNIQUE: Bone Mineral Density (BMD) measurements of lumbar spine and bilateral hips were obtained. COMPARISON: Comparison is made with prior study dated December 23, 2019. FINDINGS: Lumbar Spine (L1-L4): g/cm2 (0.810) / T-score (-2.2) / Z-score (0.3) Findings are suggestive of osteopenia with a high fracture risk. Left Femur Total: g/cm2 (0.699) / T-score (-2.0) / Z-score (-0.1) Left Femoral Neck: g/cm2 (0.597) / T-score (-2.3) / Z-score (-0.1) Right Femur Total: g/cm2 (0.718) / T-score (-1.8) / Z-score (0.0) Right Femoral Neck: g/cm2 (0.663) / T-score (-1.7) / Z-score (0.5) The T-Scores on the most recent prior examination were: Lumbar Spine (L1-L4): There has been worsening of bone density since the previous examination. Left Femur Total: which represents a worsening of 12.5%. Right Femur Total: which represents a worsening of 6.5%. BD/Dexa Bone Density Study IMPRESSION: The patient is considered osteopenic as outlined below according to World [employer] Organization (WHO) criteria with a high fracture risk. There has been worsening of bone density since the previous examination. Reference Information: The T-score is the number of standard deviations above or below the standard which is normal for young adults at their peak bone mineral density. The World Health Organization (WHO) interprets the T-scores as follows: Above -1 Normal bone density Between -1 and -2.5 Osteopenia Equal to / or below -2.5 Osteoporosis As a practical clinical guideline, osteopenia may be graded as follows: Mild -1 through -1.5 Moderate -1.6 through -2.0 Severe -2.1 through -2.4 The Z-score is the number of standard deviations above or below age-matched controls. A Z-score of less than -1.5 would be considered abnormal. References: 1. NIH Osteoporosis and Related Bone Diseases www osteo.org 2. International Society for Clinical Densitometry www iscd.org 3. National Osteoporosis Foundation www nof.org Electronically Signed: Joshua Rosario MD at 14:49 EDT ,
== END | disposition home or self-care (01) ==
PROVIDERS: PCP Family Medicine; Referring Provider Family Medicine; Visit Provider Family Medicine
DX: Z00.00 Encounter for general adult medical examination without abnormal findings (principal); M81.0 Age-related osteoporosis without current pathological fracture
CPT/HCPCS: 77080

== ENCOUNTER 2023-03-09 19:46 | Emergency (ER) | payer MEDICARE, MEDICAID, SELFPAY ==
[2023-03-09 19:48] VITALS: BP 131/68; PULSE 78; RESP 18; TEMP 36.8; O2SAT 93; BMI 49.3
--- NOTE | 2023-03-09 20:15 | ED.VIS.FEGU ---
HPI HPI - Female History of Present Illness Chief Complaint: Complaint Narrative Narrative: 77-year-old female with chronic UTI, sees Dr. Villavicencio, states that she was on Keflex, and she takes it daily, then was placed on a stronger antibiotic by her urologist, which she finished about a week or so ago. She has continued pain with urination and burning. She takes [place] for chronic pain in her back and leg given by pain management. She presents from her assisted living facility because she was told that she was hypotensive, she is having continued pain and burning with urination. [facility] Medical History Anxiety and depression Arthritis Back pain Bladder disease Carpal tunnel syndrome Cataracts, both eyes Chronic anticoagulation Chronic neuropathic pain Chronic pain following surgery or procedure Chronic UTI Closed left arm fracture Cystitis Depression Diabetes Diabetic neuropathy associated with type 2 diabetes mellitus DM II (diabetes mellitus, type II), controlled Facet arthropathy, lumbar FHx: cholecystectomy GERD (gastroesophageal reflux disease) GERD (gastroesophageal reflux disease) GI bleed Hematoma Hiatal hernia High cholesterol History of DVT (deep vein thrombosis) History of edema History of gallstones History of pain when walking History of stress test HLD (hyperlipidemia) Hx of peripheral neuropathy Hydronephrosis 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 Injury of head and neck Kidney stones Left shoulder pain Low iron Morbid obesity with BMI of 45.0-49.9, adult Neuropathy Non-smoker Non-smoker Normocytic anemia ROXIE (obstructive sleep apnea) Osteoarthritis Polycystic ovaries Primary osteoarthritis, left shoulder Pulmonary embolism Restless legs Segmental and somatic dysfunction of cervical region Segmental and somatic dysfunction of lumbar region Segmental and somatic dysfunction of pelvic region Segmental and somatic dysfunction of thoracic region Shortness of breath on exertion Uses wheelchair Walker as ambulation aid Wears dentures Wears hearing aid Home Medications cholecalciferol (vitamin D3) 25 mcg (1,000 unit) tablet (Vitamin D3) 1,000 unit PO DAILY vitamin 12/29/15 [History Last Taken 07/24/21] pravastatin 40 mg tablet 40 mg PO QHS cholesterol 08/05/18 [History Last Taken 07/23/21] fluticasone propionate 50 mcg/actuation nasal spray,suspension 2 spray NASAL DAILY allergies 03/18/19 [History Last Taken 07/24/21] primidone 50 mg tablet 100 mg PO TID tremors 03/18/19 [History Last Taken 12/10/21] simethicone 80 mg chewable tablet 80 mg PO TIDCM indigestion 03/18/19 [History Last Taken 07/24/21 12:00] mirabegron 50 mg tablet,extended release 24 hr 50 mg PO QHS bladder control 01/24/20 [History Last Taken 07/23/21] bupropion HCl 150 mg 24 hr tablet, extended release 150 mg PO DAILY DEPRESSION 08/09/20 [History Last Taken 12/10/21] aluminum-mag hydroxide-simethicone 400 mg-400 mg-40 mg/5 mL oral susp 30 ml PO Q4H PRN PRN GI DISTRESS 08/20/20 [History Last Taken 10/22/20] albuterol sulfate 2.5 mg/3 mL (0.083 %) solution for nebulization 2.5 mg (3 mL) inhalation Q2H PRN PRN Dyspnea, wheezing 08/22/20 [Rx Last Taken Unknown] ascorbic acid (vitamin C) 500 mg tablet 500 mg PO DAILY supplement 09/28/20 [History Last Taken 07/24/21] cyanocobalamin (vitamin B-12) 1,000 mcg/mL injection solution 1,000 mcg IM QMONTH supplement 10/23/20 [History Last Taken 08/24/21] Probiotic 1 cap PO/SL DAILY Check with primary doctor 07/24/21 [History Last Taken 07/23/21] omeprazole 40 mg capsule,delayed release 40 mg PO DAILY Check with primary doctor 07/24/21 [History Last Taken 12/10/21] nystatin 100,000 unit/gram topical powder 1 applic topical TID PRN Skin Irritation 07/30/21 [History Last Taken Unknown] furosemide 20 mg tablet 60 mg (3 x 20 mg) PO DAILY #0 tabs 08/14/21 [Rx Last Taken Unknown] oxybutynin chloride 5 mg tablet 5 mg PO DAILY 09/03/21 [History Last Taken 12/10/21] ondansetron HCl 8 mg tablet 8 mg PO Q8H PRN PRN Nausea 7 days #20 TABLETS 09/04/21 [Rx Last Taken Unknown] phenazopyridine 200 mg tablet (Pyridium) 200 mg PO TID PRN PRN Bladder Spasms 7 days #30 tabs 09/04/21 [Rx Last Taken Unknown] apixaban 5 mg tablet (Eliquis) 5 mg PO BID 09/30/21 [History Last Taken 10/04/22] divalproex 500 mg tablet,delayed release (Depakote) 600 mg PO BID 09/30/21 [History Last Taken 12/10/21] guaifenesin 10 ml PO/SL Q4H PRN PRN Cough 09/30/21 [History Last Taken Unknown] halobetasol propionate 0.05 % topical cream 0.05 applic topical BID 11/03/21 [History Last Taken Unknown] d-mannose 500 mg capsule 2,000 mg PO DAILY 12/05/21 [History Last Taken Unknown] polyethylene glycol 3350 17 gram oral powder packet (Miralax) 17 g PO PRN PRN Constipation 12/05/21 [History Last Taken Unknown] albuterol sulfate 90 mcg/actuation aerosol inhaler (Ventolin HFA) 1 - 2 puff inhalation Q4H PRN PRN Wheezing #1 device 04/14/22 [Rx Last Taken Unknown] nitrofurantoin monohydrate/macrocrystals 100 mg capsule (Macrobid) 100 mg PO Q12H 7 days #14 caps 06/25/22 [Rx Last Taken Unknown] Allergy/AdvReac Type Severity Reaction Status Date / Time ampicillin [From Unasyn] Allergy Severe Blisters Verified 12/30/22 18:57 on tongue /throat difficulty breathing sore tongue/ warfarin sodium Allergy Severe Low red Verified 12/30/22 18:57 [From Coumadin] blood cells Family History Father Colon cancer Hypertension Mother Hypertension Surgical History H/O cardiac catheterization History of carpal tunnel surgery History of cholecystectomy History of cystoscopy History of embolic filter insertion History of embolic filter insertion History of gastric bypass History of hysterectomy Hx of cystoscopy Hx of cystoscopy S/P hysterectomy Total knee replacement status Social History Smoking Status: Never smoker alcohol intake: current alcohol intake frequency: holidays/special occasions only substance use type: does not use what type of physical activity do you participate in: walking and aerobics frequency: 1-2 times per week ROS ROS ED ROS Narrative Constitutional: No fever, no chills. HEENT: No sore throat. No neck pain. No loss of vision. No rhinorrhea. Cardiovascular: No chest pain. No palpitations. No pedal edema. Respiratory: No cough, no shortness of breath. Abdominal: No abdominal pain. No nausea. No vomiting. Genitourinary: Dysuria and burning with urination, pain. No hematuria. Musculoskeletal: No myalgias. No arthralgias. Neurologic: No headaches. No dizziness. No lightheadedness. Skin: No rash. No change in color. Psychiatric: No depression. No anxiety. EXAM Physical Exam Narrative Exam Narrative: Afebrile. Vital signs noted. HEENT: Normocephalic. Atraumatic. PERRL, EOMI. Neck soft and supple. No point tenderness or step off. Cardiovascular: Regular rate and rhythm. No murmurs, rubs, or gallops appreciated. Respiratory: No tachypnea. Lungs clear to auscultation bilaterally. Gastrointestinal: Abdomen soft, nontender, with normoactive bowel sounds. No rebound or guarding. Neurological: Awake. Alert. Nonfocal, nonlateralizing. Skin: No rash. Normal color. No pallor. Musculoskeletal: No pedal edema. Full range of motion extremities. Const Vital Signs: 03/09/23 19:48 Temperature 98.2 F Temperature Source Oral Pulse Rate 78 Respiratory Rate 18 Blood Pressure 131/68 H Blood Pressure Mean 89 Pulse Ox 93 MDM MDM MDM Narrative Medical decision making narrative: She was reported to be hypotensive, she is not here currently. Her blood pressure is 131/68 and she is afebrile. She requested something for pain for her dysuria, and states she usually takes [place]. I told her that narcotic pain medication will not necessarily help with her dysuria and pain with urination as she usually takes that for her back pain from pain management. She wanted us to check her blood to make sure that there was nothing wrong. I will check a CBC and a BMP to look at her kidney function and make sure she does not have an elevated white count. I added a lactic acid although she is not hypotensive here. Reviewed her laboratory work from today and she has slight neutropenia 4.1 which think is nonspecific, normal hemoglobin of 12.6, platelet count normal at 215. Review of her BMP shows normal sodium of 140, potassium normal at 4.9, low anion gap of 3 with a BUN of 21 and a creatinine normal at 0.95, glucose normal at 92 with a lactic acid normal at 1.2. Urinalysis is really negative for infection, she is positive for nitrites which she had been in the past and she was given 1 dose of Levaquin 750 mg orally here as I reviewed her sensitivities and she is resistant to Bactrim. However, on microanalysis there are 0 bacteria and 0 WBCs. She states she has a follow-up appointment with her urologist tomorrow, so I will refrain from prescription for antibiotics. Her urine was sent for culture however. Her blood cultures are currently pending. She is not hypotensive here and has a normal lactic acid. I do not feel she requires admission at this time. I feel she can be discharged safely back to her assisted living facility and follow-up with her urologist tomorrow. Return instructions were reviewed. Disposition is discharged home in stable condition. History & Record Review Discussion w/independent historian: Patient Additional record(s) reviewed:: Prior outpatient record, Prior ED visit and Prior labs Lab Data Attestation: I reviewed the patient's lab results. Labs: Laboratory Results - last 24 hr 03/09/23 20:40 WBC 4.1 L RBC 3.93 L Hgb 12.6 Hct 40.8 MCV 103.8 H MCH 32.1 H MCHC 30.9 L RDW Std Deviation 48.0 H RDW Coeff of Chani 12.4 Plt Count 215 MPV 10.0 Immature Gran % (Auto) 0.500 Neut % (Auto) 49.7 Lymph % (Auto) 36.7 [place] % (Auto) 9.4 Eos % (Auto) 2.7 Baso % (Auto) 1.0 Absolute Neuts (auto) 2.1 Absolute Lymphs (auto) 1.52 Nucleated RBC % 0 Sodium 140 Potassium 4.9 Chloride 107 Carbon Dioxide 30.0 Anion Gap 3 L BUN 21 H Creatinine 0.95 Estim Creat Clear Calc 45.33 Est GFR (MDRD) Af Amer 73 Est GFR (MDRD) Non-Af 60 BUN/Creatinine Ratio 22.0 H Glucose 92 Lactic Acid 1.2 Calcium 7.8 L Urine Color SEE COMMENT BELOW Urine Clarity Clear Urine pH 5.0 Ur Specific [place] 1.020 Urine Protein Negative Urine Glucose (UA) Normal Urine Ketones Negative Urine Occult Blood Negative Urine Nitrite Positive H Urine Bilirubin 3 H Urine Urobilinogen 4 H Ur Leukocyte Esterase Negative Urine RBC 0 SEEN Urine WBC 0 SEEN Ur Squamous Epith Cells 0-5 SEEN Urine Bacteria 0 SEEN Urine Mucus 0 SEEN Discharge Plan Triage Chief Complaint: Complaint ED Provider: Jhonatan Lopes Dx/Rx/DC Orders Clinical Impression: Dysuria, Chronic UTI, Neutropenia Instructions: ED Dysuria, Uncertain Cause (Adult) Prescriptions: No Action cholecalciferol (vitamin D3) [Vitamin D3] 1,000 UNIT tablet 1,000 unit PO DAILY Patient Comments: vitamin pravastatin 40 MG tablet 40 mg PO QHS primidone 50 MG tablet 100 mg PO TID fluticasone propionate 1 SPRAY spray,suspension 2 spray NASAL DAILY simethicone 80 MG tablet 80 mg PO TIDCM mirabegron 50 MG tablet extended release 24 hr 50 mg PO QHS bupropion HCl 150 MG tablet extended release 24 hr 150 mg PO DAILY alum-mag hydroxide-simeth 355 ML suspension 30 ml PO Q4H PRN PRN (Reason: GI DISTRESS) albuterol sulfate 2.5 MG/3 ML solution for nebulization 2.5 mg INHALATION Q2H PRN PRN (Reason: Dyspnea, wheezing) 0RF ascorbic acid (vitamin C) 500 MG tablet 500 mg PO DAILY cyanocobalamin (vitamin B-12) 1,000 mcg/mL Solution 1,000 mcg IM QMONTH Rx Instructions: states last had in August states is due the 4th of each month omeprazole 40 mg capsule,delayed release(DR/EC) 40 mg PO DAILY Probiotic 1 cap PO/SL DAILY nystatin 100,000 unit/gram Powder 1 applic TOPICAL TID PRN (Reason: Skin Irritation) furosemide 20 mg Tablet 60 mg PO DAILY Qty: 0 0RF oxybutynin chloride 5 mg Tablet 5 mg PO DAILY ondansetron HCl 8 MG tablet 8 mg PO Q8H PRN PRN (Reason: Nausea) 7 Days Qty: 20 0RF phenazopyridine [Pyridium] 200 MG tablet 200 mg PO TID PRN PRN (Reason: Bladder Spasms) 7 Days Qty: 30 0RF divalproex [Depakote] 500 mg Tablet,Delayed Release (Dr/Ec) 600 mg PO BID Eliquis 5 mg Tablet 5 mg PO BID guaifenesin 10 ml PO/SL Q4H PRN PRN (Reason: Cough) halobetasol propionate 0.05 % cream 0.05 applic TOPICAL BID polyethylene glycol 3350 [Miralax] 17 gram Powder In Packet 17 g PO PRN PRN (Reason: Constipation) d-mannose 500 mg Capsule 2,000 mg PO DAILY albuterol sulfate [Ventolin HFA] 90 mcg/actuation HFA aerosol inhaler 1 - 2 puff inhalation Q4H PRN PRN (Reason: Wheezing) Qty: 1 0RF nitrofurantoin monohyd/m-cryst [Macrobid] 100 mg capsule 100 mg PO Q12H 7 Days Qty: 14 0RF Rx Instructions: must administer with a meal/food Primary Care Provider: Gonzales Pinto Referrals: Gonzales Pinto MD [Primary Care Provider] - Alejandra Villavicencio MD [Med Staff - Active Staff] - 1 Day Activity Restrictions/Additional Instructions: Follow-up with Dr. Villavicencio tomorrow as scheduled. She can continue you on antibiotics if she deems them necessary. Disposition Disposition: Home, Self Care
[2023-03-09 20:49] LABS: Bacteria 0 SEEN /hpf (None Seen); Mucous, Urine 0 SEEN /hpf (<or=2+); Red Blood Cells-Urine 0 SEEN /hpf (0-5); White Blood Cells 0 SEEN /hpf (0-5)
[2023-03-09 20:51] LABS: Color, Urine SEE COMMENT BELOW (Yellow); Glucose, Dipstick Normal (Normal); Ketone-Dipstick Negative (Negative); Leukocyte Esterase-Dipstick Negative /ul (Negative); Nitrite-Dipstick Positive (Negative); Occult Blood-Urine Negative /ul (Negative); Protein-Dipstick Negative (Negative); Urine Bilirubin Dipstick 3 mg/dL (Negative); Urine Clarity Clear (Clear); Urine Urobilinogen 4 mg/dl (Normal)
[2023-03-09 20:52] LABS: Absolute Lymphocyte Count 1.52 X10^3/uL (0.83-4.51); Absolute Neutrophil Count 2.1 X10^3/uL (2.0-7.7); Basophil# 0.04 X10^3/uL; Eosinophil# 0.11 X10^3/uL; Eosinophils% 2.7 % (0-5); Hematocrit 40.8 % (37-47); Hemoglobin 12.6 g/dL (12.0-15.0); Lymphocyte # 1.52 X10^3/ul (0.83-4.51); Lymphocyte % 36.7 % (19-41); Mean Corp Hgb Conc 30.9 g/dL (32-36); Mean Corpuscular Hgb 32.1 pg (27.0-32.0); Mean Corpuscular Volume 103.8 fL (81-99); Monocyte# 0.39 X10^3/uL; Monocyte% 9.4 % (0-10); NRBC Flagged by Analyzer 0 % (0-5); Neutrophil # 2.06 X10^3/uL (2.7-7.7); Neutrophil % 49.7 % (47-70); Platelet Count 215 K/mm3 (150-450); RBC Distribution Width CV 12.4 % (11.6-14.6); Red Blood Count 3.93 M/mm3 (4.2-5.4); White Blood Count 4.1 K/mm3 (4.4-11.0)
[2023-03-09 21:03] LABS: Anion Gap 3 (5-15); BUN 21 mg/dL (7-18); Calcium,Total 7.8 mg/dL (8.5-10.1); Chloride 107 mmol/L (98-107); Creatinine, Serum 0.95 mg/dL (0.55-1.02); EST Glomerular Filtration Rate 60 mL/min (>60); Est Glom Filt Rate - Afr Amer 73 mL/min (>60); Estimated Creatinine Clearance 45.33 ml/min; Glucose 92 mg/dL (74-106); Potassium 4.9 mmol/L (3.5-5.1); Sodium Level 140 mmol/L (136-145)
[2023-03-09] MEDS: 0.9% Normal Saline (500mL Bag) 500 ML 999 ML IV (21:05)
--- NOTE | 2023-03-09 21:05 | ED.RN ---
THIS RN ANSWERED CALL FROM PT GRANDDAUGHTER REQUESTING UPDATE ON PT. THIS RN EXPLAINED PT BLOOD WORK AND URINE STILL PENDING. PT GRANDDAUGHTER TOLD THIS RN THAT [facility] TOLD HER PT HAS POTENTIAL CARBON MONOXIDE POISONING. THIS RN LET DR. MONTOYA KNOW AT [phone].
[2023-03-09 21:26] LABS: Squamous Epithelial Cells - UA 0-5 SEEN /hpf (5-10)
[2023-03-09 21:37] LABS: Lactic Acid 1.2 mmol/L (0.4-1.9)
[2023-03-09] MEDS: levoFLOXacin 750 MG Tablet PO (21:56)
[2023-03-09] MEDS: HYDROcodone Bitartrate/Apap 5/325 Tablet PO (21:56)
[2023-03-09 22:11] VITALS: BP 137/54; PULSE 74; PULSE 75; RESP 18; O2SAT 94; O2SAT 95
--- NOTE | 2023-03-09 22:17 | ED.RN ---
THIS RN CALLED REPORT TO WALT MACARIO AT [phone]. REPORT GIVEN TO BETTY ALMANZAR. THIS RN INFORMED BETTY ALMANZAR OF WHAT MEDICATIONS PT RECEIVED IN ER.
[2023-03-09 22:20] VITALS: BP 119/44; PULSE 73; RESP 18; O2SAT 95
[2023-03-09 22:48] VITALS: BP 134/87; PULSE 86; RESP 15; O2SAT 93
--- NOTE | 2023-03-09 22:48 | ED.RN ---
REPORT GIVEN TO [facility]ANDA [facility] WITH [facility] AT [id number].
== END 2023-03-09 22:49 | disposition home or self-care (01) ==
PROVIDERS: Emergency Provider Emergency Medicine; PCP Family Medicine; Visit Provider Emergency Medicine
DX: N39.0 Urinary tract infection, site not specified (principal); D70.9 Neutropenia, unspecified; E11.40 Type 2 diabetes mellitus with diabetic neuropathy, unspecified; M79.606 Pain in leg, unspecified; G89.29 Other chronic pain; E78.5 Hyperlipidemia, unspecified; G47.33 Obstructive sleep apnea (adult) (pediatric); Z87.440 Personal history of urinary (tract) infections; Z86.718 Personal history of other venous thrombosis and embolism
CPT/HCPCS: 80048; 81001; 83605; 85025; 87040; 87077; 87086; 87088; 96360; 99285; J7040; A4216

== ENCOUNTER → 2023-03-16 | Outpatient (REF) | payer MEDICARE, MEDICAID, SELFPAY ==
[2023-03-17 08:17] LABS: Bacteria 0 SEEN /hpf (None Seen); Mucous, Urine 0 SEEN /hpf (<or=2+); Red Blood Cells-Urine 0 SEEN /hpf (0-5); White Blood Cells 0 SEEN /hpf (0-5)
[2023-03-17 08:23] LABS: Color, Urine Yellow (Yellow); Glucose, Dipstick Normal (Normal); Ketone-Dipstick Negative (Negative); Leukocyte Esterase-Dipstick 25 /ul (Negative); Nitrite-Dipstick Negative (Negative); Occult Blood-Urine Negative /ul (Negative); Protein-Dipstick 30 mg/dl (Negative); Urine Bilirubin Dipstick Negative (Negative); Urine Clarity Turbid (Clear); Urine Urobilinogen Normal (Normal)
[2023-03-17 08:31] LABS: Squamous Epithelial Cells - UA 5-10 SEEN /hpf (5-10); Triple Phosphate Crystals Ur 4+ /hpf (<or=1+)
== END ==
LOC: OLS.SWAL 10:15
PROVIDERS: PCP Family Medicine
DX: N39.0 Urinary tract infection, site not specified (principal)
CPT/HCPCS: 81001; 87086; 87088

== ENCOUNTER 2023-03-24 06:40 | Day surgery (SDC) | payer MEDICARE, MEDICAID, SELFPAY ==
[2023-03-24 07:14] VITALS: BP 136/67; PULSE 74; RESP 22; TEMP 36.4; O2SAT 97; BMI 47.7
[2023-03-24] MEDS: Lactated Ringers 1,000 ML 15 ML IV (07:32)
--- NOTE | 2023-03-24 08:40 | RAD_ITS ---
STUDY: X-RAY - RIGHT KNEE REASON FOR EXAM: Female, 77 years old. RADIO FREQ ABLATION RT KNEE GENICULAR NERVE TECHNIQUE: 2 view(s) of the knee. COMPARISON: None. FINDINGS: Intraoperative imaging provided for radiofrequency ablation of the genicular nerve. RAD/Knee 1 or 2 Views IMPRESSION: Intraoperative imaging provided for radiofrequency ablation of the genicular nerve. Electronically Signed: Joshua Rosario MD at 9:58 EDT ,
[2023-03-24] MEDS: MethylPREDNISolone Acetate 40 MG/ML Vial IM (08:45)
[2023-03-24] MEDS: Lidocaine 1% (30 ml sdv) 30 ML Vial (08:45)
--- NOTE | 2023-03-24 08:57 | PCM.OPRPT ---
Report of Operation Date of Procedure: 03/24/23 Pre-Operative Diagnosis: Osteoarthritis of the right knee, chronic post operative knee pain. Post-Operative Diagnosis: Osteoarthritis of the right knee, chronic post operative knee pain. Surgery/Procedure Performed:: Right knee radiofrequency ablation of the superior medial, superior lateral, inferior medial genicular nerves under fluoroscopic guidance Description of Surgical Findings:: DESCRIPTION OF PROCEDURE: History and physical of today was reviewed. Risks and benefits of the procedure were explained. The patient understood and agreed to proceed. Informed consent was obtained. IV inserted per routine protocol. The patient was taken to the operating room and placed in the supine position. The right knee was prepped and draped in a sterile fashion using iodine x3. Under fluoroscopy guidance on AP view, the right knee was visualized. The skin and subcutaneous tissue was anesthetized with approximately 15 mL of 1% lidocaine using a 25-gauge regular needle at the vicinity of the superomedial, superolateral, and inferomedial genicular nerves. Under direct visualization of fluoroscopy on AP view as well as lateral view, starting on the right superomedial, ending on the right inferomedial, passing through the right superolateral genicular nerves, using a 20-gauge 10 cm with a 10 mm curved active tip radiofrequency ablation needle, the needle was passed through the skin. The tip of the needle was maneuvered and directed towards the diaphyseal junction of each corresponding nerve. Once tip of the needle was in the vicinity of the diaphysis and in contact with the bone, after confirmation on AP as well as lateral view and repeated negative aspiration for blood, radiofrequency ablation probe was then inserted at each level impedance was then recorded at the superior medial 264, at the superior lateral 367, at the inferior medial 278 ohm, motor evoked potential was then initiated to 1.5 V without any motor response at each corresponding level, a total of 3 cc of 1% lidocaine were injected in divided doses between the 3 levels after repeated negative aspiration for blood the radiofrequency ablation probe was then reinserted after repeated confirmation on AP oblique as well as lateral view radiofrequency ablation was then initiated to 80 ?C for 90 seconds at each level once concluded the probe was then removed intact and a total of 6 mL of preservative-free 0.25% Marcaine with 40 mg of Depo-Medrol was injected in divided doses between those three levels. The needles were then removed intact. The patient experienced no sign or symptoms of intravascular injection. The patient experienced no paresthesia. The procedure was completed without any apparent difficulty or any complications. The patient appeared to tolerate it well. ASSESSMENT AND PLAN: This is a 77-year-old female with osteoarthritis of the right knee, chronic post operative knee pain, status post right knee radiofrequency ablation of the superior medial, superior lateral, inferior medial genicular nerves under fluoroscopic guidance, patient will continue her current medications, patient will follow in approximately 2 weeks for reevaluation. Type of Anesthesia: MAC Estimated Blood Loss (mL): Minimal Complications None.
[2023-03-24 09:01] VITALS: BP 117/60; BP 136/67; PULSE 76; RESP 18; TEMP 36.4; O2SAT 94
[2023-03-24 09:05] VITALS: BP 136/67; BP 82/62; PULSE 74; RESP 18; O2SAT 94
[2023-03-24 09:09] VITALS: BP 136/67; BP 97/58; PULSE 76; RESP 18; O2SAT 93
[2023-03-24 09:15] VITALS: BP 110/56; BP 136/67; PULSE 72; RESP 18; TEMP 37.1; O2SAT 95
[2023-03-24 09:20] VITALS: BP 136/67
== END 2023-03-24 10:00 | disposition home or self-care (01) ==
LOC: SDC 06:43 → AC 06:44
PROVIDERS: PCP Family Medicine; Referring Provider Anesthesiology Pain Medicine; Visit Provider Anesthesiology Pain Medicine
PROC: 3E0U3GC Introduction of Other Therapeutic Substance into Joints, Percutaneous Approach (ICD-10-PCS; CPT 20610; principal; 2023-03-24 08:25)
DX: M17.11 Unilateral primary osteoarthritis, right knee (principal); E11.40 Type 2 diabetes mellitus with diabetic neuropathy, unspecified; F32.9 Major depressive disorder, single episode, unspecified; F41.9 Anxiety disorder, unspecified; Z79.01 Long term (current) use of anticoagulants; K21.9 Gastro-esophageal reflux disease without esophagitis; G47.33 Obstructive sleep apnea (adult) (pediatric)
CPT/HCPCS: 64624; 73560; 76000; J7120

== ENCOUNTER → 2023-04-13 | Outpatient (REF) | payer MEDICARE, MEDICAID, SELFPAY ==
[2023-04-14 08:20] LABS: Color, Urine SEE COMMENT BELOW (Yellow); Glucose, Dipstick Normal (Normal); Ketone-Dipstick Negative (Negative); Leukocyte Esterase-Dipstick 25 /ul (Negative); Nitrite-Dipstick Positive (Negative); Occult Blood-Urine 150 /ul (Negative); Protein-Dipstick 100 mg/dl (Negative); Specific Gravity, Urine 1.015 (1.002-1.030); Urine Bilirubin Dipstick 6 mg/dL (Negative); Urine Clarity Cloudy (Clear); Urine Urobilinogen 8 mg/dl (Normal)
== END ==
LOC: OLS.SWAL 08:03
PROVIDERS: PCP Family Medicine; Referring Provider Family Medicine; Visit Provider Family Medicine
DX: N39.0 Urinary tract infection, site not specified (principal)
CPT/HCPCS: 81002; 87086; 87088

== ENCOUNTER 2023-04-16 13:09 | Observation (INO) | payer MEDICARE, MEDICAID, SELFPAY ==
[2023-04-16] VITALS (12 sets, daily range): BP systolic 103–133; BP diastolic 52–80; PULSE 69–96; RESP 12–20; TEMP -11.1–37.3; O2SAT 89–98; BMI 50.4
--- NOTE | 2023-04-16 14:42 | CT_ITS ---
STUDY: CT ABDOMEN AND PELVIS WITHOUT CONTRAST REASON FOR EXAM: Female, 78 years old. recurrent UTI, diabetes, cholecystectomy, hysterectom RADIATION DOSAGE (If Supplied By Facility): CTDIvol = ( 19.50 ) mGy, DLP = ( 1483.98 ) mGycm TECHNIQUE: Transaxial images were obtained from the dome of the diaphragm to the symphysis pubis without oral contrast, and without intravenous contrast. Sagittal and coronal images were reconstructed. Individualized dose optimization techniques were used for this CT. COMPARISON: None. FINDINGS: The visualized lung bases are unremarkable. The visualized portions of the heart are within normal limits. Normal liver. There is non-visualization of the gallbladder, which may be secondary to either contraction or a prior cholecystectomy. Normal spleen. Normal pancreas. Normal bilateral adrenal glands. Normal right kidney. There is mild cortical atrophy of the left kidney, consistent with chronic medical renal disease. Small cortical based cysts and hyperdense cysts are present in the left kidney unchanged from multiple prior studies. No hydronephrosis is present. No visualized renal masses. No radiopaque stones are present. 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 Mild fluid stasis at the anastomosis of the jejunum. No bowel dilatation or focal stenosis or evidence of small bowel obstruction. No free air or free fluid is seen. Normal colon. The appendix is visualized and appears normal. Normal abdominal aorta. There is an IVC filter in place. Normal retroperitoneum. Normal urinary bladder. Normal abdominal wall. There are diffuse degenerative changes of the visualized lumbar spine. CT/Abdomen/Pelvis without Cont IMPRESSION: 1. 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 Mild fluid stasis at the anastomosis of the jejunum. No bowel dilatation or focal stenosis or evidence of small bowel obstruction. No free air or free fluid is seen. Normal colon. The appendix is visualized and appears normal. 2. No demonstrated acute process. Electronically Signed: David Rubalcava MD at 15:48 EDT ,
--- NOTE | 2023-04-16 14:43 | ED.VIS.FEGU ---
HPI HPI - Female History of Present Illness Chief Complaint: Complaint Narrative Narrative: 78-year-old female with right lower quadrant/suprapubic pain for the last 2 weeks. She describes it as sharp and aching. Patient states she has dysuria and urinary frequency. She was told she had a UTI. She has been on a full course of Macrobid with no relief. She still having pain. She denies nausea or vomiting. No fevers. She does relate she has a history of kidney stones and sees Dr. Villavicencio. [facility] Medical History Anxiety and depression Arthritis Back pain Bladder disease Carpal tunnel syndrome Cataracts, both eyes Chronic anticoagulation Chronic neuropathic pain Chronic pain following surgery or procedure Chronic UTI Closed left arm fracture Cystitis Depression Diabetes Diabetic neuropathy associated with type 2 diabetes mellitus DM II (diabetes mellitus, type II), controlled Facet arthropathy, lumbar FHx: cholecystectomy GERD (gastroesophageal reflux disease) GERD (gastroesophageal reflux disease) GI bleed Hematoma Hiatal hernia High cholesterol History of DVT (deep vein thrombosis) History of edema History of gallstones History of pain when walking History of stress test HLD (hyperlipidemia) Hx of peripheral neuropathy Hydronephrosis 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 Injury of head and neck Kidney stones Left shoulder pain Low iron Morbid obesity with BMI of 45.0-49.9, adult Neuropathy Non-smoker Non-smoker Normocytic anemia ROXIE (obstructive sleep apnea) Osteoarthritis Polycystic ovaries Primary osteoarthritis, left shoulder Pulmonary embolism Restless legs Segmental and somatic dysfunction of cervical region Segmental and somatic dysfunction of lumbar region Segmental and somatic dysfunction of pelvic region Segmental and somatic dysfunction of thoracic region Shortness of breath on exertion Uses wheelchair Walker as ambulation aid Wears dentures Wears hearing aid Home Medications cholecalciferol (vitamin D3) 25 mcg (1,000 unit) tablet (Vitamin D3) 1,000 unit PO DAILY vitamin 12/29/15 [History Last Taken 04/16/23] pravastatin 40 mg tablet 40 mg PO QHS cholesterol 08/05/18 [History Last Taken 04/15/23] fluticasone propionate 50 mcg/actuation nasal spray,suspension 2 spray NASAL DAILY allergies 03/18/19 [History Last Taken 04/16/23] primidone 50 mg tablet 100 mg PO TID tremors 03/18/19 [History Last Taken 04/16/23] simethicone 80 mg chewable tablet 80 mg PO TIDCM indigestion 03/18/19 [History Last Taken 04/16/23] mirabegron 50 mg tablet,extended release 24 hr 50 mg PO QHS bladder control 01/24/20 [History Last Taken 04/15/23] bupropion HCl 150 mg 24 hr tablet, extended release 150 mg PO DAILY DEPRESSION 08/09/20 [History Last Taken 04/16/23] aluminum-mag hydroxide-simethicone 400 mg-400 mg-40 mg/5 mL oral susp 30 ml PO Q4H PRN GI DISTRESS 08/20/20 [History Last Taken 10/22/20] ascorbic acid (vitamin C) 500 mg tablet 500 mg PO DAILY supplement 09/28/20 [History Last Taken 04/16/23] cyanocobalamin (vitamin B-12) 1,000 mcg/mL injection solution 1,000 mcg IM QMONTH supplement 10/23/20 [History Last Taken 08/24/21] nystatin 100,000 unit/gram topical powder 1 applic topical Q8H PRN Skin Irritation 07/30/21 [History Last Taken Unknown] furosemide 20 mg tablet 60 mg (3 x 20 mg) PO DAILY #0 tabs 08/14/21 [Rx Last Taken 04/16/23] apixaban 5 mg tablet (Eliquis) 5 mg PO BID 09/30/21 [History Last Taken 04/16/23] divalproex 500 mg tablet,delayed release (Depakote) 500 mg PO BID 09/30/21 [History Last Taken 04/16/23] halobetasol propionate 0.05 % topical cream 0.05 applic topical BID 11/03/21 [History Last Taken 04/16/23] d-mannose 500 mg capsule 1,000 mg PO BID 12/05/21 [History Last Taken 04/16/23] polyethylene glycol 3350 17 gram oral powder packet (Miralax) 17 g PO Q24H PRN Constipation 12/05/21 [History Last Taken Unknown] duloxetine 60 mg capsule,delayed release (Cymbalta) 60 mg PO DAILY 03/19/23 [History Last Taken 04/16/23] famotidine 40 mg tablet 40 mg PO QHS 03/19/23 [History Last Taken 04/15/23] ferrous sulfate 325 mg (65 mg iron) tablet (Feosol) 325 mg PO DAILY 03/19/23 [History Last Taken 04/16/23] hydrocodone 7.5 mg-acetaminophen 325 mg tablet 1 tab PO Q12H PRN pain 03/19/23 [History Last Taken Unknown] albuterol sulfate 2.5 mg/3 mL (0.083 %) solution for nebulization 2.5 mg inhalation Q2H PRN Dyspnea, wheezing 04/16/23 [History Last Taken Unknown] omeprazole 40 mg capsule,delayed release 40 mg PO DAILY 04/16/23 [History Last Taken 04/16/23] ondansetron HCl 8 mg tablet 8 mg PO Q8H PRN Nausea 04/16/23 [History Last Taken Unknown] oxybutynin chloride 5 mg tablet,extended release 24 hr 5 mg PO DAILY OVERACTIVE BLADDER 04/16/23 [History Last Taken 04/16/23] phenazopyridine 200 mg tablet (Pyridium) 200 mg PO Q8H PRN Bladder Spasms 04/16/23 [History Last Taken Unknown] Allergy/AdvReac Type Severity Reaction Status Date / Time ampicillin [From Unasyn] Allergy Severe Blisters Verified 04/16/23 13:10 on tongue /throat difficulty breathing sore tongue/ warfarin sodium Allergy Severe Low red Verified 04/16/23 13:10 [From Coumadin] blood cells Family History Father Colon cancer Hypertension Mother Hypertension Surgical History H/O cardiac catheterization History of carpal tunnel surgery History of cholecystectomy History of cystoscopy History of embolic filter insertion History of embolic filter insertion History of gastric bypass History of hysterectomy Hx of cystoscopy Hx of cystoscopy S/P hysterectomy Total knee replacement status Social History Smoking Status: Never smoker alcohol intake: current alcohol intake frequency: holidays/special occasions only substance use type: does not use what type of physical activity do you participate in: walking and aerobics frequency: 1-2 times per week ROS ROS ED Constitutional Constitutional ED: Denies chills, fever(s) or sweats Eyes Eyes: Denies blurry vision or change in vision ENT ENT ED: Denies ear pain, rhinorrhea or sore throat Cardiovascular Cardiovascular: Denies chest pain, palpitations or racing heartbeat Respiratory/Chest Respiratory/Chest: Denies cough, dyspnea or sputum Gastrointestinal Gastrointestinal: Reports abdominal pain; Denies constipation, diarrhea, nausea or vomiting Genitourinary Genitourinary ED: Reports dysuria and urinary frequency Musculoskeletal Musculoskeletal: Denies arthralgias, myalgias or neck pain Integumentary Denies abscess, Abrasions or rash Neurologic Neurologic: Denies headache(s), paresthesias or weakness Psychiatric Psychiatric: Denies anxiety, depression, suicidal ideation or suicidal thoughts Endocrine Endocrinology: Denies polydipsia or polyuria EXAM Physical Exam Const Vital Signs: 04/16/23 13:11 04/16/23 15:14 04/16/23 15:40 Temperature 97.8 F 99.1 F Temperature Source Oral Oral Pulse Rate 82 91 96 Respiratory Rate 20 H 20 H 12 Blood Pressure 130/80 H 104/61 110/63 Blood Pressure Mean 96 75 78 Pulse Ox 93 98 92 Oxygen Delivery Method Room Air Room Air Room Air Oxygen Flow Rate (L/min) 04/16/23 15:58 04/16/23 15:58 04/16/23 16:00 Temperature 98 F Temperature Source Oral Pulse Rate 83 77 Respiratory Rate 20 H 12 Blood Pressure 125/61 H 133/60 H Blood Pressure Mean 82 84 Pulse Ox 89 97 98 Oxygen Delivery Method Room Air Nasal Cannula Room Air Oxygen Flow Rate (L/min) 2 04/16/23 17:00 04/16/23 18:00 04/16/23 18:17 Temperature 98 F 97.6 F L 97.9 F Temperature Source Oral Temporal Temporal Pulse Rate 74 75 80 Respiratory Rate 15 12 17 Blood Pressure 130/58 H 122/74 H 123/54 H Blood Pressure Mean 82 90 77 Pulse Ox 98 98 96 Oxygen Delivery Method Room Air Room Air Nasal Cannula Oxygen Flow Rate (L/min) 2 04/16/23 21:31 Temperature 12 F L Temperature Source Pulse Rate 75 Respiratory Rate 12 Blood Pressure 112/54 L Blood Pressure Mean 73 Pulse Ox 95 Oxygen Delivery Method Oxygen Flow Rate (L/min) Positive well nourished General Appearance ED: NAD HEENT Reports moist mucous membranes Negative for trauma Eyes PERRL and EOMs intact bilaterally Neck no lymphadenopathy Chest Wall Negative for inspection of chest normal or palpation of chest normal Resp normal respiratory effort Auscultation: Negative for rales, rhonchi or wheezes Cardio regular rate and regular rhythm GI Palpation: tender RLQ Back/Spine no CVA tenderness Neuro oriented x3 and CN's II-XII intact bilaterally Sensorium / Orientation: alert Motor Exam: strength 5/5 throughout Psych mental status grossly normal Skin no rashes or lesions noted MDM MDM MDM Narrative Medical decision making narrative: Patient presenting with right flank pain. Differential includes colitis, diverticulitis, gastritis, pancreatitis, acute cholecystitis, constipation, appendicitis, UTI, pyelonephritis, calculi, ureteral calculi, obstruction, malignancy, dehydration, electrolyte abnormalities, ovarian torsion, ovarian cyst. CBC will be obtained to assess white blood cell count, hemoglobin, platelets. CMP to assess liver function, renal function, electrolytes. Urinalysis to assess for UTI. Lipase to assess for pancreatitis. Patient given morphine, Zofran, IV fluids. CT of the abdomen pelvis will be obtained. CBC shows normal white blood cell count at 3.9. Hemoglobin stable 11.9. Platelets normal 195. Renal function and electrolytes unremarkable. LFTs are normal. Urinalysis returned with positive nitrites, 25 occult blood, 0-5 red blood cells, 0-5 white blood cells, 2+ bacteria however there is 5-10 squamous epithelial cells. Discussed ultimately normal work-up with the patient she states she still having pain in the area of her suprapubic region. She is concerned that only IV antibiotics worked for her. She states that oral antibiotics never clear her up. She does have a history of ESBL in the past. I spoke with the hospitalist who recommended talking to urology. I did speak to urology and they thought the patient probably had a urinary tract infection but did not quite meet admission criteria. Unfortunately the patient dropped her pulse ox down to 89 sitting in the bed and when ambulated she is 87% had to be on a couple liters of fluid for this I ordered a chest x-ray which showed a left lower lobe infiltrate and a COVID swab which was negative. Given hypoxia she will be admitted to the hospital. Discussed with the hospitalist who recommended Levaquin be started. Impression: 1. Abdominal pain 2. Dysuria 3. Pneumonia 4. Hypoxia Lab Data Attestation: I reviewed the patient's lab results. Labs: Laboratory Results - last 24 hr 04/16/23 04/16/23 13:58 15:00 WBC 3.9 L RBC 3.75 L Hgb 11.9 L Hct 38.5 MCV 102.7 H MCH 31.7 MCHC 30.9 L RDW Std Deviation 49.4 H RDW Coeff of Chani 13.1 Plt Count 195 MPV 10.2 Immature Gran % (Auto) 0.500 Neut % (Auto) 53.8 Lymph % (Auto) 31.4 Wood % (Auto) 10.5 H Eos % (Auto) 2.8 Baso % (Auto) 1.0 Absolute Neuts (auto) 2.1 Absolute Lymphs (auto) 1.22 Nucleated RBC % 0 Sodium 140 Potassium 4.7 Chloride 109 H Carbon Dioxide 28.0 Anion Gap 3 L BUN 22 H Creatinine 0.77 Estim Creat Clear Calc 42.39 Est GFR (MDRD) Af Amer 93 Est GFR (MDRD) Non-Af 77 BUN/Creatinine Ratio 28.5 H Glucose 124 H Calcium 8.1 L Total Bilirubin 0.40 Direct Bilirubin 0.14 AST 17 ALT 27 Alkaline Phosphatase 115 Total Protein 6.0 L Albumin 3.0 L Globulin 3.0 Albumin/Globulin Ratio 1.0 Urine Color Yellow Urine Clarity Sl. Cloudy Urine pH 7.0 Ur Specific [place] 1.015 Urine Protein 30 H Urine Glucose (UA) Normal Urine Ketones Negative Urine Occult Blood 25 H Urine Nitrite Positive H Urine Bilirubin Negative Urine Urobilinogen 1 H Ur Leukocyte Esterase 25 H Urine RBC 0-5 SEEN Urine WBC 0-5 SEEN Ur Squamous Epith Cells 5-10 SEEN Urine Bacteria 2+ Urine Mucus 0 SEEN Radiography Diagnostic Testing: Clinical Impression(s) from Imaging Studies Abdomen/Pelvis CT 04/16/23 14:42 IMPRESSION: 1. 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 Mild fluid stasis at the anastomosis of the jejunum. No bowel dilatation or focal stenosis or evidence of small bowel obstruction. No free air or free fluid is seen. Normal colon. The appendix is visualized and appears normal. 2. No demonstrated acute process. Electronically Signed: David Rubalcava MD at 15:48 EDT Reading Location ID and State: [facility] / [place] , Service support , Chest X-Ray 04/16/23 19:05 IMPRESSION: New Left lower lobe infiltrate Electronically Signed: Abdirizak Nunez MD at 19:22 EDT , Discharge Plan Triage Chief Complaint: Complaint ED Provider: Marvin Harvey Dx/Rx/DC Orders Prescriptions: No Action cholecalciferol (vitamin D3) [Vitamin D3] 1,000 UNIT tablet 1,000 unit PO DAILY pravastatin 40 MG tablet 40 mg PO QHS primidone 50 MG tablet 100 mg PO TID fluticasone propionate 1 SPRAY spray,suspension 2 spray NASAL DAILY simethicone 80 MG tablet 80 mg PO TIDCM mirabegron 50 MG tablet extended release 24 hr 50 mg PO QHS bupropion HCl 150 MG tablet extended release 24 hr 150 mg PO DAILY alum-mag hydroxide-simeth 355 ML suspension 30 ml PO Q4H PRN (Reason: GI DISTRESS) ascorbic acid (vitamin C) 500 MG tablet 500 mg PO DAILY cyanocobalamin (vitamin B-12) 1,000 mcg/mL Solution 1,000 mcg IM QMONTH Rx Instructions: states last had in August is due the 4th of each month nystatin 100,000 unit/gram Powder 1 applic TOPICAL Q8H PRN (Reason: Skin Irritation) furosemide 20 mg Tablet 60 mg PO DAILY Qty: 0 0RF divalproex [Depakote] 500 mg Tablet,Delayed Release (Dr/Ec) 500 mg PO BID Eliquis 5 mg Tablet 5 mg PO BID halobetasol propionate 0.05 % cream 0.05 applic TOPICAL BID polyethylene glycol 3350 [Miralax] 17 gram Powder In Packet 17 g PO Q24H PRN (Reason: Constipation) d-mannose 500 mg Capsule 1,000 mg PO BID omeprazole 40 mg capsule,delayed release(DR/EC) 40 mg PO DAILY oxybutynin chloride 5 mg tablet extended release 24hr 5 mg PO DAILY albuterol sulfate 2.5 MG/3 ML solution for nebulization 2.5 mg INHALATION Q2H PRN (Reason: Dyspnea, wheezing) ondansetron HCl 8 MG tablet 8 mg PO Q8H PRN (Reason: Nausea) phenazopyridine [Pyridium] 200 MG tablet 200 mg PO Q8H PRN (Reason: Bladder Spasms) duloxetine [Cymbalta] 60 mg capsule,delayed release(DR/EC) 60 mg PO DAILY ferrous sulfate [Feosol] 325 mg (65 mg iron) tablet 325 mg PO DAILY hydrocodone-acetaminophen 7.5-325 mg tablet 1 tab PO Q12H PRN (Reason: pain) famotidine 40 mg tablet 40 mg PO QHS Primary Care Provider: Gonzales Pinto Referrals: Gonzales Pinto MD [Primary Care Provider] -
[2023-04-16] MEDS: 0.9% Normal Saline (1000mL) 1,000 ML 1000 ML IV (14:52)
[2023-04-16] MEDS: Ondansetron 4 MG/2 ML Vial IV (14:52)
[2023-04-16] MEDS: Morphine 4 MG/ML Syringe IV ×2 (14:52→18:18)
[2023-04-16 14:58] LABS: Absolute Lymphocyte Count 1.22 X10^3/uL (0.83-4.51); Absolute Neutrophil Count 2.1 X10^3/uL (2.0-7.7); Basophil# 0.04 X10^3/uL; Eosinophil# 0.11 X10^3/uL; Eosinophils% 2.8 % (0-5); Hematocrit 38.5 % (37-47); Hemoglobin 11.9 g/dL (12.0-15.0); Lymphocyte # 1.22 X10^3/ul (0.83-4.51); Lymphocyte % 31.4 % (19-41); Mean Corp Hgb Conc 30.9 g/dL (32-36); Mean Corpuscular Hgb 31.7 pg (27.0-32.0); Mean Corpuscular Volume 102.7 fL (81-99); Mean Platelet Vol. 10.2 fl (6.2-12.0); Monocyte# 0.41 X10^3/uL; Monocyte% 10.5 % (0-10); NRBC Flagged by Analyzer 0 % (0-5); Neutrophil # 2.09 X10^3/uL (2.7-7.7); Neutrophil % 53.8 % (47-70); Platelet Count 195 K/mm3 (150-450); RBC Distribution Width CV 13.1 % (11.6-14.6); RBC Distribution Width SD 49.4 fl (35.1-43.9); Red Blood Count 3.75 M/mm3 (4.2-5.4); White Blood Count 3.9 K/mm3 (4.4-11.0)
[2023-04-16 15:06] LABS: Mucous, Urine 0 SEEN /hpf (<or=2+)
[2023-04-16 15:13] LABS: Color, Urine Yellow (Yellow); Glucose, Dipstick Normal (Normal); Ketone-Dipstick Negative (Negative); Leukocyte Esterase-Dipstick 25 /ul (Negative); Nitrite-Dipstick Positive (Negative); Occult Blood-Urine 25 /ul (Negative); Protein-Dipstick 30 mg/dl (Negative); Specific Gravity, Urine 1.015 (1.002-1.030); Urine Bilirubin Dipstick Negative (Negative); Urine Clarity Sl. Cloudy (Clear); Urine Urobilinogen 1 mg/dl (Normal)
[2023-04-16 15:14] LABS: AST(SGOT) 17 U/L (15-37); Alanine Aminotransfer ALT/SGPT 27 U/L (13-56); Alkaline Phosphatase 115 U/L (45-117); Anion Gap 3 (5-15); BUN 22 mg/dL (7-18); BUN/Creat Ratio 28.5 RATIO (10-20); Bilirubin, Direct 0.14 mg/dL (0.00-0.30); Calcium,Total 8.1 mg/dL (8.5-10.1); Chloride 109 mmol/L (98-107); Creatinine, Serum 0.77 mg/dL (0.55-1.02); EST Glomerular Filtration Rate 77 mL/min (>60); Est Glom Filt Rate - Afr Amer 93 mL/min (>60); Estimated Creatinine Clearance 42.39 ml/min; Glucose 124 mg/dL (74-106); Potassium 4.7 mmol/L (3.5-5.1); Sodium Level 140 mmol/L (136-145)
[2023-04-16 15:21] LABS: Bacteria 2+ /hpf (None Seen); Red Blood Cells-Urine 0-5 SEEN /hpf (0-5); Squamous Epithelial Cells - UA 5-10 SEEN /hpf (5-10); White Blood Cells 0-5 SEEN /hpf (0-5)
--- NOTE | 2023-04-16 19:05 | RAD_ITS ---
STUDY: X-RAY CHEST REASON FOR EXAM: Female, 78 years old. weakness TECHNIQUE: Single frontal view of the chest. COMPARISON: Chest x-ray December 30, 2022 FINDINGS: Left lower lobe infiltrates. There is no demonstrated pleural abnormality. Normal size heart. Normal mediastinum and epifanio. Normal visualized pulmonary arteries. Normal visualized aortic arch and descending thoracic aorta. Normal visualized thoracic spine. Normal visualized ribs, clavicles, and shoulders. There is no demonstrated abnormality of the visualized soft tissue structures of the upper abdomen. RAD/Chest 1 View IMPRESSION: New Left lower lobe infiltrate Electronically Signed: Abdirizak Nunez MD at 19:22 EDT ,
--- NOTE | 2023-04-16 20:26 | PCM.HP.STD ---
HPI - General General Date of Admission: 04/16/23 Date of Service: 04/16/23 Chief Complaint: Dysuria HPI Narrative ADAM NIX, is a 78 F with a significant history of ESBL UTI; kidney stones; and pulmonary embolism on Eliquis who presents to emergency department with dysuria. Patient reports that she has been on and off antibiotics and any time that she is off antibiotics she has urinary symptoms. She completed Macrobid 3 days ago. And prior to completing the Macrobid she was on Keflex. She reports that even while on Keflex and Macrobid she continued to have urinary symptoms. Associated with her symptoms is increased frequency of urination and suprapubic pain. At the emergency department imaging did not show a stone. Urine was mildly abnormal. Emergency dependably discussed the case with Dr. Villavicencio; patient urology was very familiar with the patient and told the patient may still be having a UTI. ED doctor reports that at rest at the emergency department patient oxygen saturation was about 89% and with ambulation oxygen saturation was 87%. Chest x-ray done at the emergency department showed infiltrates. Of note patient denies any shortness of breath. [facility] Medical History Anxiety and depression Arthritis Back pain Bladder disease Carpal tunnel syndrome Cataracts, both eyes Chronic anticoagulation Chronic neuropathic pain Chronic pain following surgery or procedure Chronic UTI Closed left arm fracture Cystitis Depression Diabetes Diabetic neuropathy associated with type 2 diabetes mellitus DM II (diabetes mellitus, type II), controlled Facet arthropathy, lumbar FHx: cholecystectomy GERD (gastroesophageal reflux disease) GERD (gastroesophageal reflux disease) GI bleed Hematoma Hiatal hernia High cholesterol History of DVT (deep vein thrombosis) History of edema History of gallstones History of pain when walking History of stress test HLD (hyperlipidemia) Hx of peripheral neuropathy Hydronephrosis 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 Injury of head and neck Kidney stones Left shoulder pain Low iron Morbid obesity with BMI of 45.0-49.9, adult Neuropathy Non-smoker Non-smoker Normocytic anemia ROXIE (obstructive sleep apnea) Osteoarthritis Polycystic ovaries Primary osteoarthritis, left shoulder Pulmonary embolism Restless legs Segmental and somatic dysfunction of cervical region Segmental and somatic dysfunction of lumbar region Segmental and somatic dysfunction of pelvic region Segmental and somatic dysfunction of thoracic region Shortness of breath on exertion Uses wheelchair Walker as ambulation aid Wears dentures Wears hearing aid Home Medications cholecalciferol (vitamin D3) 25 mcg (1,000 unit) tablet (Vitamin D3) 1,000 unit PO DAILY vitamin 12/29/15 [History Last Taken 04/16/23] pravastatin 40 mg tablet 40 mg PO QHS cholesterol 08/05/18 [History Last Taken 04/15/23] fluticasone propionate 50 mcg/actuation nasal spray,suspension 2 spray NASAL DAILY allergies 03/18/19 [History Last Taken 04/16/23] primidone 50 mg tablet 100 mg PO TID tremors 03/18/19 [History Last Taken 04/16/23] simethicone 80 mg chewable tablet 80 mg PO TIDCM indigestion 03/18/19 [History Last Taken 04/16/23] mirabegron 50 mg tablet,extended release 24 hr 50 mg PO QHS bladder control 01/24/20 [History Last Taken 04/15/23] bupropion HCl 150 mg 24 hr tablet, extended release 150 mg PO DAILY DEPRESSION 08/09/20 [History Last Taken 04/16/23] aluminum-mag hydroxide-simethicone 400 mg-400 mg-40 mg/5 mL oral susp 30 ml PO Q4H PRN GI DISTRESS 08/20/20 [History Last Taken 10/22/20] ascorbic acid (vitamin C) 500 mg tablet 500 mg PO DAILY supplement 09/28/20 [History Last Taken 04/16/23] cyanocobalamin (vitamin B-12) 1,000 mcg/mL injection solution 1,000 mcg IM QMONTH supplement 10/23/20 [History Last Taken 08/24/21] nystatin 100,000 unit/gram topical powder 1 applic topical Q8H PRN Skin Irritation 07/30/21 [History Last Taken Unknown] furosemide 20 mg tablet 60 mg (3 x 20 mg) PO DAILY #0 tabs 08/14/21 [Rx Last Taken 04/16/23] apixaban 5 mg tablet (Eliquis) 5 mg PO BID 09/30/21 [History Last Taken 04/16/23] divalproex 500 mg tablet,delayed release (Depakote) 500 mg PO BID 09/30/21 [History Last Taken 04/16/23] halobetasol propionate 0.05 % topical cream 0.05 applic topical BID 11/03/21 [History Last Taken 04/16/23] d-mannose 500 mg capsule 1,000 mg PO BID 12/05/21 [History Last Taken 04/16/23] polyethylene glycol 3350 17 gram oral powder packet (Miralax) 17 g PO Q24H PRN Constipation 12/05/21 [History Last Taken Unknown] duloxetine 60 mg capsule,delayed release (Cymbalta) 60 mg PO DAILY 03/19/23 [History Last Taken 04/16/23] famotidine 40 mg tablet 40 mg PO QHS 03/19/23 [History Last Taken 04/15/23] ferrous sulfate 325 mg (65 mg iron) tablet (Feosol) 325 mg PO DAILY 03/19/23 [History Last Taken 04/16/23] hydrocodone 7.5 mg-acetaminophen 325 mg tablet 1 tab PO Q12H PRN pain 03/19/23 [History Last Taken Unknown] albuterol sulfate 2.5 mg/3 mL (0.083 %) solution for nebulization 2.5 mg inhalation Q2H PRN Dyspnea, wheezing 04/16/23 [History Last Taken Unknown] omeprazole 40 mg capsule,delayed release 40 mg PO DAILY 04/16/23 [History Last Taken 04/16/23] ondansetron HCl 8 mg tablet 8 mg PO Q8H PRN Nausea 04/16/23 [History Last Taken Unknown] oxybutynin chloride 5 mg tablet,extended release 24 hr 5 mg PO DAILY OVERACTIVE BLADDER 04/16/23 [History Last Taken 04/16/23] phenazopyridine 200 mg tablet (Pyridium) 200 mg PO Q8H PRN Bladder Spasms 04/16/23 [History Last Taken Unknown] Allergy/AdvReac Type Severity Reaction Status Date / Time ampicillin [From Unasyn] Allergy Severe Blisters Verified 04/16/23 13:10 on tongue /throat difficulty breathing sore tongue/ warfarin sodium Allergy Severe Low red Verified 04/16/23 13:10 [From Coumadin] blood cells Family History Father Colon cancer Hypertension Mother Hypertension Surgical History H/O cardiac catheterization History of carpal tunnel surgery History of cholecystectomy History of cystoscopy History of embolic filter insertion History of embolic filter insertion History of gastric bypass History of hysterectomy Hx of cystoscopy Hx of cystoscopy S/P hysterectomy Total knee replacement status Social History Smoking Status: Never smoker alcohol intake: current alcohol intake frequency: holidays/special occasions only substance use type: does not use what type of physical activity do you participate in: walking and aerobics frequency: 1-2 times per week ROS ROS Narrative Pertinent positives and pertinent negatives as noted in HPI. All other systems were reviewed and are negative Vital Signs Vital Signs Vital Signs: 04/16/23 13:11 04/16/23 15:14 04/16/23 15:40 Temperature 97.8 F 99.1 F Temperature Source Oral Oral Pulse Rate 82 91 96 Respiratory Rate 20 H 20 H 12 Blood Pressure 130/80 H 104/61 110/63 Blood Pressure Mean 96 75 78 Pulse Ox 93 98 92 Oxygen Delivery Method Room Air Room Air Room Air Oxygen Flow Rate (L/min) 04/16/23 15:58 04/16/23 15:58 04/16/23 16:00 Temperature 98 F Temperature Source Oral Pulse Rate 83 77 Respiratory Rate 20 H 12 Blood Pressure 125/61 H 133/60 H Blood Pressure Mean 82 84 Pulse Ox 89 97 98 Oxygen Delivery Method Room Air Nasal Cannula Room Air Oxygen Flow Rate (L/min) 2 04/16/23 17:00 04/16/23 18:00 04/16/23 18:17 Temperature 98 F 97.6 F L 97.9 F Temperature Source Oral Temporal Temporal Pulse Rate 74 75 80 Respiratory Rate 15 12 17 Blood Pressure 130/58 H 122/74 H 123/54 H Blood Pressure Mean 82 90 77 Pulse Ox 98 98 96 Oxygen Delivery Method Room Air Room Air Nasal Cannula Oxygen Flow Rate (L/min) 2 Weight Weight: 137.5 kg Body Mass Index (BMI) 50.4 Physical Exam Narrative Physical exam: General: Well-nourished, well-developed. Head: Normocephalic, atraumatic, no tenderness Eyes: Vision is grossly intact. EOMI ENT, no trauma, moist mucous membranes, no rhinorrhea Neck: Nontender, No thyromegaly. CVS: Regular rate and rhythm. S1-S2 present. No murmur, gallop or rub. Respiratory : clear to auscultation bilaterally, chest wall nontender Abdomen: Soft, nontender, nondistended, normal bowel sounds, no masses : Deferred Back: Nontender, no CVA tenderness, no midline spinal tenderness, deformities, step-offs Extremities: Nontender full range of motion, no trauma Skin: Normal color, no trauma, abrasions Neuro: Alert, oriented, cranial nerves II through XII grossly intact. Psychiatry: Normal mood. Normal affect. Not depressed. Not anxious. Results Lab / Micro Data Attestation: I reviewed the patient's lab results. 04/17/23 05:00 04/17/23 05:00 Labs: Laboratory Results - last 24 hr 04/16/23 13:58: WBC 3.9 L, RBC 3.75 L, Hgb 11.9 L, Hct 38.5, MCV 102.7 H, MCH 31.7, MCHC 30.9 L, RDW Std Deviation 49.4 H, RDW Coeff of Chani 13.1, Plt Count 195, MPV 10.2, Immature Gran % (Auto) 0.500, Neut % (Auto) 53.8, Lymph % (Auto) 31.4, [place] % (Auto) 10.5 H, Eos % (Auto) 2.8, Baso % (Auto) 1.0, Absolute Neuts (auto) 2.1, Absolute Lymphs (auto) 1.22, Nucleated RBC % 0, Sodium 140, Potassium 4.7, Chloride 109 H, Carbon Dioxide 28.0, Anion Gap 3 L, BUN 22 H, Creatinine 0.77, Estim Creat Clear Calc 42.39, Est GFR (MDRD) Af Amer 93, Est GFR (MDRD) Non-Af 77, BUN/Creatinine Ratio 28.5 H, Glucose 124 H, Calcium 8.1 L, Total Bilirubin 0.40, Direct Bilirubin 0.14, AST 17, ALT 27, Alkaline Phosphatase 115, Total Protein 6.0 L, Albumin 3.0 L, Globulin 3.0, Albumin/Globulin Ratio 1.0 04/16/23 15:00: Urine Color Yellow, Urine Clarity Sl. Cloudy, Urine pH 7.0, Ur Specific [place] 1.015, Urine Protein 30 H, Urine Glucose (UA) Normal, Urine Ketones Negative, Urine Occult Blood 25 H, Urine Nitrite Positive H, Urine Bilirubin Negative, Urine Urobilinogen 1 H, Ur Leukocyte Esterase 25 H, Urine RBC 0-5 SEEN, Urine WBC 0-5 SEEN, Ur Squamous Epith Cells 5-10 SEEN, Urine Bacteria 2+, Urine Mucus 0 SEEN Radiology Impression Abdomen/Pelvis CT 04/16/23 14:42 IMPRESSION: 1. 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 Mild fluid stasis at the anastomosis of the jejunum. No bowel dilatation or focal stenosis or evidence of small bowel obstruction. No free air or free fluid is seen. Normal colon. The appendix is visualized and appears normal. 2. No demonstrated acute process. Electronically Signed: David Rubalcava MD at 15:48 EDT , Chest X-Ray 04/16/23 19:05 IMPRESSION: New Left lower lobe infiltrate Electronically Signed: Abdirizak Nunez MD at 19:22 EDT , Assessment & Plan Assessment/Plan (1) Pneumonia: QUALIFIERS: Laterality: right Lung location: lower lobe of lung Pneumonia type: due to unspecified organism Qualified Code(s): J18.9 - Pneumonia, unspecified organism (2) UTI (urinary tract infection): QUALIFIERS: Hematuria presence: without hematuria Urinary tract infection type: acute cystitis Qualified Code(s): N30.00 - Acute cystitis without hematuria PLAN: Plan Acute on chronic UTI A white count of 3.5 which shows acute on chronic leukopenia. CT of abdomen and pelvis without contrast showed mild fluid stasis at the anastomosis of the jejunum no other pathology reported. Of note patient has a history of a prior gastric bypass and anastomotic small bowel changes Emergency department urinalysis was reviewed. Urinalysis was abnormal. With recommendations from urology patient was started on Levaquin at the emergency department and continued. Urine culture for past 2 urines were reviewed. Both culture showed mixed gram-positive organism; chronic count was 80,000 to 100,000. Of note the last urine culture was collected on 04/13/2023. Previous urine culture was collected on 03/16/2023. That also showed mixed gram-positive organisms with chronic count of 50,000-80,000. The case was discussed with emergency department doctor, and if patient having hypoxia decision was made to observe patient at the hospital. Pneumonia with hypoxia Impression of Left lobe infiltrate by radiology: Left lower lobe infiltrate. Hospitalist independent interpretation of chest x-ray left lower infiltrate noted Antibiotics: Levaquin was started emergency department and continued The case was discussed with emergency department doctor, and with patient having hypoxia decision was made to observe patient at the hospital. Albuterol as needed Legionella antigen screen and Strep antigen ordered Check procalcitonin CKD stage II Stable Trend Morbid Obesity BMI: 48.7 kg/m?. Complicates care. Lifestyle modification recommended. DVT prophylaxis: Home Eliquis continued Time spent in the patient's overall evaluation,decision-making process, review of diagnostic data, adjustment of management, discussion with other providers, nursing and ancillary staff involved in patient's care documentation, 70 minutes. Charges/Coding Visit Charges Inpatient E&M: 76300 Init Hosp L3
--- NOTE | 2023-04-16 20:53 | ED.RN ---
custodial made aware of admission at this time
[2023-04-16] MEDS: levoFLOXacin IV 500 MG/100 ML BAG 100 MG IV (21:10)
[2023-04-16 22:37] LABS: Procalcitonin < 0.04 ng/mL (0.00-0.09)
[2023-04-17 01:00] VITALS: BP 126/57; PULSE 75; RESP 16; O2SAT 94
[2023-04-17 02:35] VITALS: BMI 48.6
[2023-04-17 02:57] VITALS: BP 112/64; PULSE 68; RESP 18; TEMP 36.4; O2SAT 95
[2023-04-17] MEDS: HYDROcodone Bitartrate/Apap 5/325 Tablet PO (03:04)
[2023-04-17] MEDS: Famotidine 20 MG Tablet PO (03:23)
[2023-04-17] MEDS: APIXABAN 5 MG TABLET PO ×2 (03:23→08:36)
[2023-04-17] MEDS: Pravastatin 40 MG Tablet PO (03:23)
[2023-04-17] MEDS: Primidone 50 MG Tablet 100 MG PO (03:23)
[2023-04-17] MEDS: Divalproex Sodium 250 MG Tablet 500 MG PO ×2 (03:23→08:37)
[2023-04-17] MEDS: Mirabegron 50 MG TAB.ER.24H PO (03:23)
[2023-04-17 06:44] LABS: Absolute Lymphocyte Count 1.36 X10^3/uL (0.83-4.51); Absolute Neutrophil Count 1.6 X10^3/uL (2.0-7.7); Basophil# 0.04 X10^3/uL; Basophil% 1.2 % (0-1); Eosinophil# 0.12 X10^3/uL; Eosinophils% 3.5 % (0-5); Hematocrit 33.9 % (37-47); Hemoglobin 10.4 g/dL (12.0-15.0); Lymphocyte # 1.36 X10^3/ul (0.83-4.51); Lymphocyte % 39.4 % (19-41); Mean Corp Hgb Conc 30.7 g/dL (32-36); Mean Corpuscular Hgb 31.9 pg (27.0-32.0); Monocyte# 0.34 X10^3/uL; Monocyte% 9.9 % (0-10); NRBC Flagged by Analyzer 0 % (0-5); Neutrophil # 1.58 X10^3/uL (2.7-7.7); Neutrophil % 45.7 % (47-70); Platelet Count 166 K/mm3 (150-450); RBC Distribution Width CV 13.1 % (11.6-14.6); Red Blood Count 3.26 M/mm3 (4.2-5.4); White Blood Count 3.5 K/mm3 (4.4-11.0)
[2023-04-17 07:05] LABS: Anion Gap 5 (5-15); BUN 19 mg/dL (7-18); BUN/Creat Ratio 30.4 RATIO (10-20); Calcium,Total 7.6 mg/dL (8.5-10.1); Chloride 112 mmol/L (98-107); Creatinine, Serum 0.63 mg/dL (0.55-1.02); EST Glomerular Filtration Rate 98 mL/min (>60); Est Glom Filt Rate - Afr Amer 119 mL/min (>60); Estimated Creatinine Clearance 42.39 ml/min; Glucose 82 mg/dL (74-106); Potassium 4.6 mmol/L (3.5-5.1); Sodium Level 142 mmol/L (136-145)
[2023-04-17 08:06] VITALS: BP 119/90; PULSE 71; RESP 18; TEMP 37.1; O2SAT 98
[2023-04-17 08:33] VITALS: O2SAT 93; O2SAT 96
[2023-04-17] MEDS: Tolterodine Tartrate 2 MG CAP.SA PO (08:34)
[2023-04-17] MEDS: Fluticasone 0.05% 1 SPRAY NASAL.SRY 2 SPRAY NASAL (08:35)
[2023-04-17] MEDS: Ferrous Sulfate 325 MG Tablet PO (08:35)
[2023-04-17] MEDS: Furosemide 20 MG Tablet 60 MG PO (08:35)
[2023-04-17] MEDS: Ascorbic Acid 500 MG Tablet PO (08:35)
[2023-04-17] MEDS: Pantoprazole Sodium 40 MG Tablet PO (08:36)
[2023-04-17] MEDS: DULoxetine Hcl 60 MG Capsule PO (08:36)
[2023-04-17] MEDS: SimETHICONE 80 MG Chewable Tablet PO (08:36)
[2023-04-17] MEDS: Cholecalciferol (VIT D3) 25 MCG TABLET (1,000 UNITS) PO (08:37)
[2023-04-17] MEDS: Clobetasol Propionate 0.05% Cream 1 APPLIC TOPICAL (08:37)
[2023-04-17] MEDS: buPROPion (XL) 150 MG TABLET.XL PO (08:38)
--- NOTE | 2023-04-17 09:38 | DCINST_ITS ---
Discharge Instructions Diet Discharge Diet: Low fat / Low cholesterol Activity Discharge Activity: Return to Normal Activity Dressing / Incision Call your doctor if you observe: Fever of 101 or Higher, Shortness of breath, Dizziness, Fainting spells, Swelling in the ankles, Chest pain and Increased palpitations (irregular heartbeat) Follow Up Care Test Results: Test results from this visit will be discussed in further detail at your follow- up appointment, if applicable. Discharge Plan Admission Admit Date/Time: 04/16/23 20:10 Attending Provider: Binu Downye Primary Care Provider: Gonzales Pinto Consulting Providers: Elpidio Faust Discharge Orders/Prescriptions Prescriptions: New cefdinir 300 mg capsule 300 mg PO Q12H Qty: 14 0RF azithromycin 500 mg tablet 500 mg PO DAILY 5 Days Qty: 5 0RF Continued cholecalciferol (vitamin D3) [Vitamin D3] 1,000 UNIT tablet 1,000 unit PO DAILY pravastatin 40 MG tablet 40 mg PO QHS primidone 50 MG tablet 100 mg PO TID fluticasone propionate 1 SPRAY spray,suspension 2 spray NASAL DAILY simethicone 80 MG tablet 80 mg PO TIDCM mirabegron 50 MG tablet extended release 24 hr 50 mg PO QHS bupropion HCl 150 MG tablet extended release 24 hr 150 mg PO DAILY alum-mag hydroxide-simeth 355 ML suspension 30 ml PO Q4H PRN (Reason: GI DISTRESS) ascorbic acid (vitamin C) 500 MG tablet 500 mg PO DAILY cyanocobalamin (vitamin B-12) 1,000 mcg/mL Solution 1,000 mcg IM QMONTH Rx Instructions: states last had in August is due the 4th of each month nystatin 100,000 unit/gram Powder 1 applic TOPICAL Q8H PRN (Reason: Skin Irritation) furosemide 20 mg Tablet 60 mg PO DAILY Qty: 0 0RF divalproex [Depakote] 500 mg Tablet,Delayed Release (Dr/Ec) 500 mg PO BID Eliquis 5 mg Tablet 5 mg PO BID halobetasol propionate 0.05 % cream 0.05 applic TOPICAL BID polyethylene glycol 3350 [Miralax] 17 gram Powder In Packet 17 g PO Q24H PRN (Reason: Constipation) d-mannose 500 mg Capsule 1,000 mg PO BID omeprazole 40 mg capsule,delayed release(DR/EC) 40 mg PO DAILY oxybutynin chloride 5 mg tablet extended release 24hr 5 mg PO DAILY albuterol sulfate 2.5 MG/3 ML solution for nebulization 2.5 mg INHALATION Q2H PRN (Reason: Dyspnea, wheezing) ondansetron HCl 8 MG tablet 8 mg PO Q8H PRN (Reason: Nausea) phenazopyridine [Pyridium] 200 MG tablet 200 mg PO Q8H PRN (Reason: Bladder Spasms) duloxetine [Cymbalta] 60 mg capsule,delayed release(DR/EC) 60 mg PO DAILY ferrous sulfate [Feosol] 325 mg (65 mg iron) tablet 325 mg PO DAILY hydrocodone-acetaminophen 7.5-325 mg tablet 1 tab PO Q12H PRN (Reason: pain) famotidine 40 mg tablet 40 mg PO QHS Referrals / Follow Up: Gonzales Pinto MD [Primary Care Provider] - Within 1 Week Disposition Disposition (needs filled in before D/C Order can be placed): Home, Self Care
--- NOTE | 2023-04-17 10:42 | CASEMGMT ---
Social Work Pt has a health care power of admitted attorneys on file naming her daughter Guera Bonds. Pt chose not to complete a living will at the time she completed HCPOA. Living will addressed with pt and she is does not want a living will. MEG Rubio
[2023-04-17 10:43] LABS: M R Staph aureus DNA By PCR Negative (Negative); Probe Check PASS; Specimen Processing Control PASS
--- NOTE | 2023-04-17 11:18 | CASEMGMT ---
Social Work DC order entered by physician. RUKHSANA met with pt to inquire about DC needs. Pt resides at [facility]. Pt denies any needs, HHC or DME, for DC. Does require transport to return. Pt stated [facility] is aware of admission but not of DC. RUKHSANA phoned Wallace at [facility] to update on DC today and no needs. Wallace agreeable. RUKHSANA faxed paperwork to [facility]. RUKHSANA scheduled w/c transport through [facility] for 12 pm today. Pt and IDT notified. Plan: DC 04/17 returning to [facility] with no needs Jolynn Morrison ,NOAH BELLAMYW
--- NOTE | 2023-04-17 11:27 | CASEMGMT ---
Social Work SW asked pt if she would like to complete a living will and pt denied. Jolynn Morrison ,RETAIL PLANNING MANAGER SOFTWARE ASSET MANAGEMENT ANALYST
[2023-04-17] MEDS: Flu Vacc QS2023-24(65YR UP)/PF 240 MCG/0.7 ML Syringe IM (11:58)
[2023-04-17] MEDS: Ondansetron 4 MG/2 ML Vial IV (11:58)
[2023-04-17] MEDS: 0.9% Saline Lock 10 ML Syringe IV (11:58)
--- NOTE | 2023-04-17 12:50 | PCM.TXEXTCAR ---
Diet Diet Order/Speech Therapy: 04/17/23 02:20 Diet: Cardiac - Heart Healthy Food consistency:: Regular Liquid Consistency:: Regular/Thin Routine Orders/Code Status Routine Lab Work: CBC and BMP Code Status: DNRCC-A Therapies Physical Therapy: Eval and Treat Occupational Therapy: Eval and Treat Problem/Diagnosis (1) Pneumonia: Status: Acute Code(s): J18.9 - Pneumonia, unspecified organism (2) UTI (urinary tract infection): Status: Inactive Code(s): N39.0 - Urinary tract infection, site not specified Allergies/Procedures Done in Hospital Allergies ampicillin [From Unasyn] Allergy (Severe, Verified 04/16/23 13:10) Blisters on tongue /throat difficulty breathing sore tongue/ warfarin sodium [From Coumadin] Allergy (Severe, Verified 04/16/23 13:10) Low red blood cells Procedures: None Type of Care/Length of Stay Estimated LOS: More Than 30 Days Type of Care Needed: Nursing Home/Assisted Living Rehab Potential: Good Prognosis: Good Additional Orders/Day of Discharge Day of Discharge: 04/17/23 Discharge Plan Admission Admit Date/Time: 04/16/23 20:10 Attending Provider: Binu Downey Primary Care Provider: Gonzales Pinto Consulting Providers: Elpidio Faust Discharge Orders/Prescriptions Prescriptions: New cefdinir 300 mg capsule 300 mg PO Q12H Qty: 14 0RF azithromycin 500 mg tablet 500 mg PO DAILY 5 Days Qty: 5 0RF Continued cholecalciferol (vitamin D3) [Vitamin D3] 1,000 UNIT tablet 1,000 unit PO DAILY pravastatin 40 MG tablet 40 mg PO QHS primidone 50 MG tablet 100 mg PO TID fluticasone propionate 1 SPRAY spray,suspension 2 spray NASAL DAILY simethicone 80 MG tablet 80 mg PO TIDCM mirabegron 50 MG tablet extended release 24 hr 50 mg PO QHS bupropion HCl 150 MG tablet extended release 24 hr 150 mg PO DAILY alum-mag hydroxide-simeth 355 ML suspension 30 ml PO Q4H PRN (Reason: GI DISTRESS) ascorbic acid (vitamin C) 500 MG tablet 500 mg PO DAILY cyanocobalamin (vitamin B-12) 1,000 mcg/mL Solution 1,000 mcg IM QMONTH Rx Instructions: states last had in August is due the 4th of each month nystatin 100,000 unit/gram Powder 1 applic TOPICAL Q8H PRN (Reason: Skin Irritation) furosemide 20 mg Tablet 60 mg PO DAILY Qty: 0 0RF divalproex [Depakote] 500 mg Tablet,Delayed Release (Dr/Ec) 500 mg PO BID Eliquis 5 mg Tablet 5 mg PO BID halobetasol propionate 0.05 % cream 0.05 applic TOPICAL BID polyethylene glycol 3350 [Miralax] 17 gram Powder In Packet 17 g PO Q24H PRN (Reason: Constipation) d-mannose 500 mg Capsule 1,000 mg PO BID omeprazole 40 mg capsule,delayed release(DR/EC) 40 mg PO DAILY oxybutynin chloride 5 mg tablet extended release 24hr 5 mg PO DAILY albuterol sulfate 2.5 MG/3 ML solution for nebulization 2.5 mg INHALATION Q2H PRN (Reason: Dyspnea, wheezing) ondansetron HCl 8 MG tablet 8 mg PO Q8H PRN (Reason: Nausea) phenazopyridine [Pyridium] 200 MG tablet 200 mg PO Q8H PRN (Reason: Bladder Spasms) duloxetine [Cymbalta] 60 mg capsule,delayed release(DR/EC) 60 mg PO DAILY ferrous sulfate [Feosol] 325 mg (65 mg iron) tablet 325 mg PO DAILY hydrocodone-acetaminophen 7.5-325 mg tablet 1 tab PO Q12H PRN (Reason: pain) famotidine 40 mg tablet 40 mg PO QHS Referrals / Follow Up: Gonzales Pinto MD [Primary Care Provider] - Within 1 Week Disposition Disposition (needs filled in before D/C Order can be placed): Assisted Living (1) Pneumonia Qualifiers: Pneumonia type: due to unspecified organism Laterality: right Lung location: lower lobe of lung Qualified Code(s): J18.9 - Pneumonia, unspecified organism (2) UTI (urinary tract infection) Qualifiers: Urinary tract infection type: acute cystitis Hematuria presence: without hematuria Qualified Code(s): N30.00 - Acute cystitis without hematuria
--- NOTE | 2023-04-17 12:52 | NURSING ---
Attempted to call report to Kory Christy at this time. No answer.
--- NOTE | 2023-04-17 12:58 | DS.PCM_ITS ---
Providers Date of Admission: 04/16/23 Primary Care Physician: Dr. Gonzales Pinto MD Reason For Visit: UTI, PNEUMONIA, HYPOXIA Diagnosis Discharge Diagnosis (1) Pneumonia: Status: Acute Code(s): J18.9 - Pneumonia, unspecified organism Qualifiers: Laterality: right Lung location: lower lobe of lung Pneumonia type: due to unspecified organism Qualified Code(s): J18.9 - Pneumonia, unspecified organism (2) UTI (urinary tract infection): Status: Inactive Code(s): N39.0 - Urinary tract infection, site not specified Qualifiers: Hematuria presence: without hematuria Urinary tract infection type: acute cystitis Qualified Code(s): N30.00 - Acute cystitis without hematuria Medications at Discharge Home Medications cholecalciferol (vitamin D3) 25 mcg (1,000 unit) tablet (Vitamin D3) 1,000 unit PO DAILY vitamin 12/29/15 pravastatin 40 mg tablet 40 mg PO QHS cholesterol 08/05/18 fluticasone propionate 50 mcg/actuation nasal spray,suspension 2 spray NASAL DAILY allergies 03/18/19 primidone 50 mg tablet 100 mg PO TID tremors 03/18/19 simethicone 80 mg chewable tablet 80 mg PO TIDCM indigestion 03/18/19 mirabegron 50 mg tablet,extended release 24 hr 50 mg PO QHS bladder control 01/24/20 bupropion HCl 150 mg 24 hr tablet, extended release 150 mg PO DAILY DEPRESSION 08/09/20 aluminum-mag hydroxide-simethicone 400 mg-400 mg-40 mg/5 mL oral susp 30 ml PO Q4H PRN GI DISTRESS 08/20/20 ascorbic acid (vitamin C) 500 mg tablet 500 mg PO DAILY supplement 09/28/20 cyanocobalamin (vitamin B-12) 1,000 mcg/mL injection solution 1,000 mcg IM QMONTH supplement 10/23/20 nystatin 100,000 unit/gram topical powder 1 applic topical Q8H PRN Skin Irritation 07/30/21 furosemide 20 mg tablet 60 mg (3 x 20 mg) PO DAILY #0 tabs 08/14/21 apixaban 5 mg tablet (Eliquis) 5 mg PO BID 09/30/21 divalproex 500 mg tablet,delayed release (Depakote) 500 mg PO BID 04/10/22 halobetasol propionate 0.05 % topical cream 0.05 applic topical BID 11/03/21 d-mannose 500 mg capsule 1,000 mg PO BID 12/05/21 polyethylene glycol 3350 17 gram oral powder packet (Miralax) 17 g PO Q24H PRN Constipation 12/05/21 duloxetine 60 mg capsule,delayed release (Cymbalta) 60 mg PO DAILY 03/19/23 famotidine 40 mg tablet 40 mg PO QHS 03/19/23 ferrous sulfate 325 mg (65 mg iron) tablet (Feosol) 325 mg PO DAILY 03/19/23 hydrocodone 7.5 mg-acetaminophen 325 mg tablet 1 tab PO Q12H PRN pain 03/19/23 albuterol sulfate 2.5 mg/3 mL (0.083 %) solution for nebulization 2.5 mg inhalation Q2H PRN Dyspnea, wheezing 04/16/23 omeprazole 40 mg capsule,delayed release 40 mg PO DAILY 04/16/23 ondansetron HCl 8 mg tablet 8 mg PO Q8H PRN Nausea 04/16/23 oxybutynin chloride 5 mg tablet,extended release 24 hr 5 mg PO DAILY OVERACTIVE BLADDER 04/16/23 phenazopyridine 200 mg tablet (Pyridium) 200 mg PO Q8H PRN Bladder Spasms 04/16/23 azithromycin 500 mg tablet 500 mg PO DAILY 5 days #5 tabs 04/17/23 cefdinir 300 mg capsule 300 mg PO Q12H #14 caps 04/17/23 Hospital Course Operations None Procedures None Summary of Care Provided Minutes Spent on Discharge: 35 Hospital Course: Per HPI: ADAM NIX, is a 78 F with a significant history of ESBL UTI; kidney stones; and pulmonary embolism on Eliquis who presents to emergency department with dysuria. Patient reports that she has been on and off antibiotics and any time that she is off antibiotics she has urinary symptoms. She completed Macrobid 3 days ago. And prior to completing the Macrobid she was on Keflex. She reports that even while on Keflex and Macrobid she continued to have urinary symptoms. Associated with her symptoms is increased frequency of urination and suprapubic pain. At the emergency department imaging did not show a stone. Urine was mildly abnormal. Emergency dependably discussed the case with Dr. Villavicencio; patient urology was very familiar with the patient and told the patient may still be having a UTI. ED doctor reports that at rest at the emergency department patient oxygen saturation was about 89% and with ambulation oxygen saturation was 87%. Chest x-ray done at the emergency department showed infiltrates. Of note patient denies any shortness of breath. Hospital Course: 1. Pneumonia with transient hypoxia?78-year-old female presented to the hospital with burning urination as she had been on Macrobid and Keflex prior however urine culture from a couple days ago showed mixed jhony so she does not have a UTI however she developed some minor hypoxia in the ER and chest x-ray and CT scan demonstrated possible pneumonia. She was admitted and placed on Levaquin given her allergy of Unasyn despite having been on Keflex prior. Today on the day of discharge she was feeling fine that she still had some burning with urination however she states that she was breathing much better today. She was taken down to room air while at rest and had an ambulatory pulse ox that did not demonstrate a need for any oxygen. I elected to discharge her on a few days of cefdinir and azithromycin and I discussed with her the plan for discharge today she expressed understanding of the risk and benefits of going back to the SNF and she would like to go today. I do recommend she follow-up with her urologist as an outpatient, the main symptom that she keeps describing as burning with urination which may have other etiologies besides UTI. She does take oxybutynin for overactive bladder which could be contributing to UTIs may benefit from sensation as an outpatient. 2. Anxiety, depression, history of DVT, GERD, iron deficiency anemia, hyperlipidemia are all chronic medical conditions which complicate her care. Her home medications were continued where appropriate Physical Exam Narrative General: Alert, Oriented x3, Cooperative, No apparent distress HEENT: Atraumatic, PERRLA, EOMI, Normocephalic Oral: Moist Mucosa Neck: Supple, No JVD Lungs: Diminished, Normal air movement, No rhonchi, No wheeze, No rales Cardiovascular: Regular rate, Regular Rhythm, Normal S1, Normal S2, No murmurs Abdomen: Soft, Non Tender, Non-Distended, No Hepato-splenomegaly Extremities: No edema, Capillary Refill Less than 3 Seconds Skin: No rashes, No breakdown Musculoskeletal: No Tenderness to Palpation of Joints or Extremities Neurological: Cranial nerves II-XII grossly intact, Motor Exam 5/5 strength throughout, Sensory exam intact to light touch and pain Psych/Mental Status: Normal Affect, Appropriate Weight / BMI Weight Weight: 292 lb 12.382 oz Body Mass Index (BMI) 48.6 ABG / Lab / Microbiology Data 04/17/23 05:00 04/17/23 05:00 Laboratory: Laboratory Results - last 24 hr 04/16/23 13:58: WBC 3.9 L, RBC 3.75 L, Hgb 11.9 L, Hct 38.5, MCV 102.7 H, MCH 31.7, MCHC 30.9 L, RDW Std Deviation 49.4 H, RDW Coeff of Chani 13.1, Plt Count 195, MPV 10.2, Immature Gran % (Auto) 0.500, Neut % (Auto) 53.8, Lymph % (Auto) 31.4, [place] % (Auto) 10.5 H, Eos % (Auto) 2.8, Baso % (Auto) 1.0, Absolute Neuts (auto) 2.1, Absolute Lymphs (auto) 1.22, Nucleated RBC % 0, Sodium 140, Potassium 4.7, Chloride 109 H, Carbon Dioxide 28.0, Anion Gap 3 L, BUN 22 H, Creatinine 0.77, Estim Creat Clear Calc 42.39, Est GFR (MDRD) Af Amer 93, Est GFR (MDRD) Non-Af 77, BUN/Creatinine Ratio 28.5 H, Glucose 124 H, Calcium 8.1 L, Total Bilirubin 0.40, Direct Bilirubin 0.14, AST 17, ALT 27, Alkaline Phosphatase 115, Total Protein 6.0 L, Albumin 3.0 L, Globulin 3.0, Albumin/Globulin Ratio 1.0 04/16/23 15:00: Urine Color Yellow, Urine Clarity Sl. Cloudy, Urine pH 7.0, Ur Specific [place] 1.015, Urine Protein 30 H, Urine Glucose (UA) Normal, Urine Ketones Negative, Urine Occult Blood 25 H, Urine Nitrite Positive H, Urine Bilirubin Negative, Urine Urobilinogen 1 H, Ur Leukocyte Esterase 25 H, Urine RBC 0-5 SEEN, Urine WBC 0-5 SEEN, Ur Squamous Epith Cells 5-10 SEEN, Urine Bacteria 2+, Urine Mucus 0 SEEN 04/16/23 21:34: Procalcitonin < 0.04 04/17/23 05:00: WBC 3.5 L, RBC 3.26 L, Hgb 10.4 L, Hct 33.9 L, MCV 104.0 H, MCH 31.9, MCHC 30.7 L, RDW Std Deviation 50.0 H, RDW Coeff of [place] 13.1, Plt Count 166, MPV 10.0, Immature Gran % (Auto) 0.300, Neut % (Auto) 45.7 L, Lymph % (Auto) 39.4, [place] % (Auto) 9.9, Eos % (Auto) 3.5, Baso % (Auto) 1.2 H, Absolute Neuts (auto) 1.6 L, Absolute Lymphs (auto) 1.36, Nucleated RBC % 0, Sodium 142, Potassium 4.6, Chloride 112 H, Carbon Dioxide 25.0, Anion Gap 5, BUN 19 H, Creatinine 0.63, Estim Creat Clear Calc 42.39, Est GFR (MDRD) Af Amer 119, Est GFR (MDRD) Non-Af 98, BUN/Creatinine Ratio 30.4 H, Glucose 82, Calcium 7.6 L 04/17/23 : MRSA (PCR) Negative Microbiology: Microbiology 04/16/23 Unknown Urine, Clean Catch Legionella Antigen - Final 04/16/23 Unknown Urine, Clean Catch Streptococcus pneumoniae Antigen (M - Final 04/16/23 20:10 Nasal Secretion SARS-CoV-2 & FLU Antigen (Rapid) - Final Radiography Diagnostic Testing: Radiology Impression Abdomen/Pelvis CT 04/16/23 14:42 IMPRESSION: 1. 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 Mild fluid stasis at the anastomosis of the jejunum. No bowel dilatation or focal stenosis or evidence of small bowel obstruction. No free air or free fluid is seen. Normal colon. The appendix is visualized and appears normal. 2. No demonstrated acute process. Electronically Signed: David Rubalcava MD at 15:48 EDT , Chest X-Ray 04/16/23 19:05 IMPRESSION: New Left lower lobe infiltrate Electronically Signed: Abdirizak Nunez MD at 19:22 EDT Reading Location ID and State: [facility] / [place] Tel , Service support , D/C Instructions Discharge Diet: Low fat / Low cholesterol Call your doctor if you observe: Fever of 101 or Higher, Shortness of breath, Dizziness, Fainting spells, Swelling in the ankles, Chest pain and Increased palpitations (irregular heartbeat) Meaningful Use Info Meaningful Use Diagnoses (Choose all that apply): None applicable Discharge Plan Admission Admit Date/Time: 04/16/23 20:10 Attending Provider: Binu Downey Primary Care Provider: Gonzales Pinto Consulting Providers: Elpidio Faust Discharge Orders/Prescriptions Prescriptions: New cefdinir 300 mg capsule 300 mg PO Q12H Qty: 14 0RF azithromycin 500 mg tablet 500 mg PO DAILY 5 Days Qty: 5 0RF Continued cholecalciferol (vitamin D3) [Vitamin D3] 1,000 UNIT tablet 1,000 unit PO DAILY pravastatin 40 MG tablet 40 mg PO QHS primidone 50 MG tablet 100 mg PO TID fluticasone propionate 1 SPRAY spray,suspension 2 spray NASAL DAILY simethicone 80 MG tablet 80 mg PO TIDCM mirabegron 50 MG tablet extended release 24 hr 50 mg PO QHS bupropion HCl 150 MG tablet extended release 24 hr 150 mg PO DAILY alum-mag hydroxide-simeth 355 ML suspension 30 ml PO Q4H PRN (Reason: GI DISTRESS) ascorbic acid (vitamin C) 500 MG tablet 500 mg PO DAILY cyanocobalamin (vitamin B-12) 1,000 mcg/mL Solution 1,000 mcg IM QMONTH Rx Instructions: states last had in August is due the 4th of each month nystatin 100,000 unit/gram Powder 1 applic TOPICAL Q8H PRN (Reason: Skin Irritation) furosemide 20 mg Tablet 60 mg PO DAILY Qty: 0 0RF divalproex [Depakote] 500 mg Tablet,Delayed Release (Dr/Ec) 500 mg PO BID Eliquis 5 mg Tablet 5 mg PO BID halobetasol propionate 0.05 % cream 0.05 applic TOPICAL BID polyethylene glycol 3350 [Miralax] 17 gram Powder In Packet 17 g PO Q24H PRN (Reason: Constipation) d-mannose 500 mg Capsule 1,000 mg PO BID omeprazole 40 mg capsule,delayed release(DR/EC) 40 mg PO DAILY oxybutynin chloride 5 mg tablet extended release 24hr 5 mg PO DAILY albuterol sulfate 2.5 MG/3 ML solution for nebulization 2.5 mg INHALATION Q2H PRN (Reason: Dyspnea, wheezing) ondansetron HCl 8 MG tablet 8 mg PO Q8H PRN (Reason: Nausea) phenazopyridine [Pyridium] 200 MG tablet 200 mg PO Q8H PRN (Reason: Bladder Spasms) duloxetine [Cymbalta] 60 mg capsule,delayed release(DR/EC) 60 mg PO DAILY ferrous sulfate [Feosol] 325 mg (65 mg iron) tablet 325 mg PO DAILY hydrocodone-acetaminophen 7.5-325 mg tablet 1 tab PO Q12H PRN (Reason: pain) famotidine 40 mg tablet 40 mg PO QHS Referrals / Follow Up: Gonzales Pinto MD [Primary Care Provider] - Within 1 Week Disposition Disposition (needs filled in before D/C Order can be placed): Assisted Living Charges/Coding Visit Charges Inpatient E&M: 69796 Disch Hosp >30min
== END 2023-04-17 12:30 | disposition home or self-care (01) ==
LOC: ED 15:43 → MS3 23:34 → MS2 04-17 01:47
PROVIDERS: Admitting Provider Hospitalist; Emergency Provider Student in an Organized Health Care Education/Training Program; PCP Family Medicine; Visit Provider Family Medicine
DX: J18.9 Pneumonia, unspecified organism (principal); E11.40 Type 2 diabetes mellitus with diabetic neuropathy, unspecified; E11.22 Type 2 diabetes mellitus with diabetic chronic kidney disease; E66.01 Morbid (severe) obesity due to excess calories; Z68.43 Body mass index [BMI] 50.0-59.9, adult; N30.00 Acute cystitis without hematuria; K21.9 Gastro-esophageal reflux disease without esophagitis; N32.81 Overactive bladder; F41.9 Anxiety disorder, unspecified; R09.02 Hypoxemia; Z79.01 Long term (current) use of anticoagulants; E78.00 Pure hypercholesterolemia, unspecified; G47.33 Obstructive sleep apnea (adult) (pediatric); Z79.899 Other long term (current) drug therapy; F32.A Depression, unspecified; Z86.718 Personal history of other venous thrombosis and embolism; N18.2 Chronic kidney disease, stage 2 (mild); Z23 Encounter for immunization
CPT/HCPCS: 36415; 71045; 74176; 80048; 80053; 80076; 81001; 84145; 85025; 87077; 87086; 87088; 87428; 87449; 87641; 96361; 96365; 96375; 96376; 99221; 99285; G0008; J7030; J7050; 90662; A4216; G0378; J2405

== ENCOUNTER 2023-04-24 14:43 | Outpatient (CLI) | payer MEDICARE, MEDICAID, SELFPAY ==
[2023-04-24 17:37] LABS: Absolute Lymphocyte Count 1.07 X10^3/uL (0.83-4.51); Basophil# 0.04 X10^3/uL; Basophil% 1.1 % (0-1); Eosinophils% 2.8 % (0-5); Hematocrit 42.9 % (37-47); Hemoglobin 13.2 g/dL (12.0-15.0); Lymphocyte # 1.07 X10^3/ul (0.83-4.51); Lymphocyte % 30.1 % (19-41); Mean Corp Hgb Conc 30.8 g/dL (32-36); Mean Corpuscular Hgb 32.1 pg (27.0-32.0); Mean Corpuscular Volume 104.4 fL (81-99); Mean Platelet Vol. 10.1 fl (6.2-12.0); Monocyte# 0.34 X10^3/uL; Monocyte% 9.6 % (0-10); NRBC Flagged by Analyzer 0 % (0-5); Neutrophil # 1.98 X10^3/uL (2.7-7.7); Neutrophil % 55.8 % (47-70); Platelet Count 258 K/mm3 (150-450); RBC Distribution Width SD 50.2 fl (35.1-43.9); Red Blood Count 4.11 M/mm3 (4.2-5.4); White Blood Count 3.6 K/mm3 (4.4-11.0)
[2023-04-24 17:47] LABS: ALB/GLOB Ratio 1.1 RATIO (0.9-2.4); AST(SGOT) 18 U/L (15-37); Alanine Aminotransfer ALT/SGPT 28 U/L (13-56); Albumin, Serum 3.3 g/dL (3.2-5.0); Alkaline Phosphatase 130 U/L (45-117); Anion Gap 7 (5-15); BUN 22 mg/dL (7-18); BUN/Creat Ratio 25.2 RATIO (10-20); Calcium,Total 8.1 mg/dL (8.5-10.1); Chloride 108 mmol/L (98-107); Creatinine, Serum 0.87 mg/dL (0.55-1.02); EST Glomerular Filtration Rate 67 mL/min (>60); Est Glom Filt Rate - Afr Amer 81 mL/min (>60); Glucose 76 mg/dL (74-106); Potassium 4.5 mmol/L (3.5-5.1); Protein, Total 6.3 g/dL (6.4-8.2); Sodium Level 140 mmol/L (136-145)
[2023-04-25 12:12] LABS: PTHIN 145.5 pg/mL (18.4-80.1); Vitamin B12 477 pg/mL (211-911)
[2023-04-25 12:17] LABS: Thyroid Stim Hormone (TSH) 2.53 uIU/mL (0.358-3.74)
[2023-04-29 14:47] LABS: Magnesium 2.2 mg/dL (1.6-2.6)
[2023-04-29 14:52] LABS: Vitamin D,25 Hydroxy 47.2 ng/mL
== END 2023-04-24 23:59 | disposition home or self-care (01) ==
LOC: MFPLAB 14:44
PROVIDERS: PCP Family Medicine; Visit Provider Family Medicine
DX: E55.9 Vitamin D deficiency, unspecified (principal); R53.1 Weakness
CPT/HCPCS: 36415; 80053; 82306; 82607; 83735; 83970; 84100; 84443; 85025

== ENCOUNTER 2023-05-12 10:10 | Day surgery (SDC) | payer MEDICARE, MEDICAID, SELFPAY ==
[2023-05-12 10:49] VITALS: BP 129/92; PULSE 86; RESP 17; TEMP 36.2; O2SAT 98; BMI 47.3
[2023-05-12] MEDS: Lactated Ringers 1,000 ML 15 ML IV (10:56)
--- NOTE | 2023-05-12 11:05 | RAD_ITS ---
PROCEDURE: Caudal epidural steroid injection. DATE OF EXAMINATION: May 12, 2023. INDICATION: Female, 78 years old. Chronic low back pain. FLUOROSCOPY TIME (if supplied): (27 seconds) minutes/seconds. 45.54 mGy. One image was submitted. RAD/Fluor Guidance for Spine Inj IMPRESSION: Intraoperative imaging provided for caudal epidural steroid injection. Electronically Signed: Joshua Rosario MD at 11:06 EST ,
[2023-05-12] MEDS: MethylPREDNISolone Acetate 80 MG/ML Vial (11:10)
[2023-05-12] MEDS: 0.9% Normal Saline (Pres. free 10 ML Vial (11:11)
[2023-05-12] MEDS: Lidocaine 1% (5 ml sdv) 5 ML Vial (11:11)
--- NOTE | 2023-05-12 11:14 | OP.PCM_ITS ---
Report of Operation Date of Procedure: 05/12/23 Pre-Operative Diagnosis: Lumbosacral radiculopathy, lumbosacral degenerative di sc disease, lumbosacral spinal stenosis Post-Operative Diagnosis: Lumbosacral radiculopathy, lumbosacral degenerative disc disease, lumbosacral spinal stenosis Surgery/Procedure Performed:: Diagnostic/therapeutic caudal epidural steroid injection under fluoroscopic guidance Type of Anesthesia: MAC Estimated Blood Loss (mL): Minimal Description of Procedure: DESCRIPTION OF PROCEDURE: History and physical of today was reviewed. Risks and benefits of the procedure were explained. The patient understood and agreed to proceed. Informed consent was obtained. IV inserted per routine protocol. The patient was taken to the operating room and placed in the prone position with a pillow positioned underneath the abdomen. The lower back and tailbone area was prepped and draped in a sterile fashion using iodine x3. Under fluoroscopy guidance on a lateral view, the caudal space was identified. The skin and subcutaneous tissue was anesthetized with approximately 3 mL of 1% lidocaine using a 25-gauge regular needle. Under direct visualization with fluoroscopy, using a 22-gauge 3-1/2-inch spinal needle, the needle was advanced via the skin through the sacral hiatus. The tip of the needle was passed through the sacrococcygeal ligament and advanced to approximately S4 area. After negative aspiration of blood or CSF, a total of 3 mL of contrast was injected to confirm correct placement of the needle as well as cephalad spread. The spread was followed to approximately L5 area. After confirmation on AP as well as lateral view and repeated negative aspiration, a total of 15 mL of preservative-free 0.125% Marcaine with 80 mg of Depo-Medrol was injected easily. The needle was then removed intact. The patient experienced no sign or symptoms of intrathecal or intravascular injection. The patient experienced no paresthesia. The procedure was completed without any apparent difficulty or any complications. The patient appeared to tolerate it well. ASSESSMENT AND PLAN: This is a 78-year-old female with lumbosacral radiculopathy, lumbosacral degenerative disc disease, lumbosacral spinal stenosis status post diagnostic/therapeutic caudal epidural steroid injection, patient will continue her current medications, patient will follow in approximately 2 weeks for reevaluation. Complications None
[2023-05-12] MEDS: Bacitracin 500 UNITS/GM PACKET (11:16)
[2023-05-12 11:30] VITALS: BP 129/92; BP 132/61; PULSE 79; RESP 16; TEMP 37.2; O2SAT 95
[2023-05-12 11:35] VITALS: BP 129/92; BP 134/90; PULSE 74; RESP 16; O2SAT 94
[2023-05-12 11:40] VITALS: BP 129/92; BP 135/70; PULSE 75; RESP 16; O2SAT 96
[2023-05-12 11:45] VITALS: BP 129/92; BP 138/58; PULSE 83; RESP 16; TEMP 36.2; O2SAT 99
[2023-05-12 12:00] VITALS: BP 129/92
== END 2023-05-12 12:14 | disposition home or self-care (01) ==
LOC: SDC 10:11 → AC 10:12
PROVIDERS: PCP Family Medicine; Referring Provider Anesthesiology Pain Medicine; Visit Provider Anesthesiology Pain Medicine
PROC: 3E0S3BZ Introduction of Anesthetic Agent into Epidural Space, Percutaneous Approach (ICD-10-PCS; CPT 62282; principal; 2023-05-12 11:45)
DX: M51.17 Intervertebral disc disorders with radiculopathy, lumbosacral region (principal); M48.07 Spinal stenosis, lumbosacral region; K21.9 Gastro-esophageal reflux disease without esophagitis; F32.A Depression, unspecified; F41.9 Anxiety disorder, unspecified; Z79.899 Other long term (current) drug therapy
CPT/HCPCS: 62323; 01992; 64483; 77003; J7120; J3490

== ENCOUNTER → 2023-05-18 | Outpatient (REF) | payer MEDICARE, MEDICAID, SELFPAY ==
[2023-05-19 08:41] LABS: Bacteria 0 SEEN /hpf (None Seen); Mucous, Urine 0 SEEN /hpf (<or=2+); Red Blood Cells-Urine 0 SEEN /hpf (0-5)
[2023-05-19 09:06] LABS: Color, Urine Yellow (Yellow); Glucose, Dipstick Normal (Normal); Ketone-Dipstick Negative (Negative); Leukocyte Esterase-Dipstick 500 /ul (Negative); Nitrite-Dipstick Positive (Negative); Occult Blood-Urine Negative /ul (Negative); Protein-Dipstick Negative (Negative); Specific Gravity, Urine 1.015 (1.002-1.030); Urine Clarity Clear (Clear); Urine Urobilinogen 1 mg/dl (Normal)
[2023-05-19 09:07] LABS: Urine Bilirubin Dipstick 1 mg/dL (Negative)
[2023-05-19 09:14] LABS: Squamous Epithelial Cells - UA 0-5 SEEN /hpf (5-10); White Blood Cells 5-10 SEEN /hpf (0-5)
== END ==
LOC: OLS.SWAL 15:45
PROVIDERS: PCP Family Medicine; Visit Provider Urology
DX: N39.0 Urinary tract infection, site not specified (principal)
CPT/HCPCS: 81001; 87077; 87086; 87088; 87186

== ENCOUNTER → 2023-06-01 | Outpatient (REF) | payer MEDICARE, MEDICAID, SELFPAY ==
[2023-06-02 08:37] LABS: Glucose, Dipstick Normal (Normal); Ketone-Dipstick Negative (Negative); Leukocyte Esterase-Dipstick 25 /ul (Negative); Nitrite-Dipstick Positive (Negative); Occult Blood-Urine Negative /ul (Negative); Protein-Dipstick Negative (Negative); Urine Clarity Clear (Clear); Urine Urobilinogen 4 mg/dl (Normal)
[2023-06-02 08:38] LABS: Color, Urine SEE COMMENT BELOW (Yellow); Urine Bilirubin Dipstick 1 mg/dL (Negative)
== END ==
LOC: OLS.SWAL 20:00
PROVIDERS: PCP Family Medicine; Visit Provider Family Medicine
DX: N39.0 Urinary tract infection, site not specified (principal)
CPT/HCPCS: 81002; 87077; 87086; 87088; 87186

== ENCOUNTER 2023-06-23 10:20 | Inpatient (IN) | payer MEDICARE, MEDICAID, SELFPAY ==
[2023-06-23] VITALS (10 sets, daily range): BP systolic 94–155; BP diastolic 54–87; PULSE 74–105; RESP 16–26; TEMP 36.7–37.2; O2SAT 91–98; BMI 49.5; BMI 47.3
--- NOTE | 2023-06-23 10:24 | ED.VIS.FALL ---
HPI HPI - Fall History of Present Illness Chief Complaint: Fall PFSH [facility] Medical History Anxiety and depression Arthritis Back pain Bladder disease Carpal tunnel syndrome Cataracts, both eyes Chronic anticoagulation Chronic neuropathic pain Chronic pain following surgery or procedure Chronic UTI Closed left arm fracture Cystitis Depression Diabetes Diabetic neuropathy associated with type 2 diabetes mellitus DM II (diabetes mellitus, type II), controlled Facet arthropathy, lumbar FHx: cholecystectomy GERD (gastroesophageal reflux disease) GERD (gastroesophageal reflux disease) GI bleed Hematoma Hiatal hernia High cholesterol History of DVT (deep vein thrombosis) History of edema History of gallstones History of pain when walking History of stress test HLD (hyperlipidemia) Hx of peripheral neuropathy Hydronephrosis 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 Injury of head and neck Kidney stones Left shoulder pain Low iron Morbid obesity with BMI of 45.0-49.9, adult Neuropathy Non-smoker Non-smoker Normocytic anemia ROXIE (obstructive sleep apnea) Osteoarthritis Polycystic ovaries Primary osteoarthritis, left shoulder Pulmonary embolism Restless legs Segmental and somatic dysfunction of cervical region Segmental and somatic dysfunction of lumbar region Segmental and somatic dysfunction of pelvic region Segmental and somatic dysfunction of thoracic region Shortness of breath on exertion Uses wheelchair Walker as ambulation aid Wears dentures Wears hearing aid Home Medications cholecalciferol (vitamin D3) 25 mcg (1,000 unit) tablet (Vitamin D3) 1,000 unit PO DAILY vitamin 12/29/15 [History Last Taken 04/16/23] pravastatin 40 mg tablet 40 mg PO QHS cholesterol 08/05/18 [History Last Taken 04/15/23] fluticasone propionate 50 mcg/actuation nasal spray,suspension 2 spray NASAL DAILY allergies 03/18/19 [History Last Taken 04/16/23] primidone 50 mg tablet 100 mg PO TID tremors 03/18/19 [History Last Taken 04/16/23] simethicone 80 mg chewable tablet 80 mg PO TIDCM indigestion 03/18/19 [History Last Taken 04/16/23] mirabegron 50 mg tablet,extended release 24 hr 50 mg PO QHS bladder control 01/24/20 [History Last Taken 04/15/23] bupropion HCl 150 mg 24 hr tablet, extended release 150 mg PO DAILY DEPRESSION 08/09/20 [History Last Taken 04/16/23] aluminum-mag hydroxide-simethicone 400 mg-400 mg-40 mg/5 mL oral susp 30 ml PO Q4H PRN GI DISTRESS 08/20/20 [History Last Taken 10/22/20] ascorbic acid (vitamin C) 500 mg tablet 500 mg PO DAILY supplement 09/28/20 [History Last Taken 04/16/23] cyanocobalamin (vitamin B-12) 1,000 mcg/mL injection solution 1,000 mcg IM QMONTH supplement 10/23/20 [History Last Taken 08/24/21] nystatin 100,000 unit/gram topical powder 1 applic topical Q8H PRN Skin Irritation 07/30/21 [History Last Taken Unknown] furosemide 20 mg tablet 60 mg (3 x 20 mg) PO DAILY #0 tabs 08/14/21 [Rx Last Taken 04/16/23] apixaban 5 mg tablet (Eliquis) 5 mg PO BID 09/30/21 [History Last Taken 04/16/23] divalproex 500 mg tablet,delayed release (Depakote) 500 mg PO BID 09/30/21 [History Last Taken 04/16/23] halobetasol propionate 0.05 % topical cream 0.05 applic topical BID 11/03/21 [History Last Taken 04/16/23] d-mannose 500 mg capsule 1,000 mg PO BID 12/05/21 [History Last Taken 04/16/23] polyethylene glycol 3350 17 gram oral powder packet (Miralax) 17 g PO Q24H PRN Constipation 12/05/21 [History Last Taken Unknown] duloxetine 60 mg capsule,delayed release (Cymbalta) 60 mg PO DAILY 03/19/23 [History Last Taken 04/16/23] famotidine 40 mg tablet 40 mg PO QHS 03/19/23 [History Last Taken 04/15/23] ferrous sulfate 325 mg (65 mg iron) tablet (Feosol) 325 mg PO DAILY 03/19/23 [History Last Taken 04/16/23] hydrocodone 7.5 mg-acetaminophen 325 mg tablet 1 tab PO Q12H PRN pain 03/19/23 [History Last Taken Unknown] albuterol sulfate 2.5 mg/3 mL (0.083 %) solution for nebulization 2.5 mg inhalation Q2H PRN Dyspnea, wheezing 04/16/23 [History Last Taken Unknown] omeprazole 40 mg capsule,delayed release 40 mg PO DAILY 04/16/23 [History Last Taken 04/16/23] ondansetron HCl 8 mg tablet 8 mg PO Q8H PRN Nausea 04/16/23 [History Last Taken Unknown] oxybutynin chloride 5 mg tablet,extended release 24 hr 5 mg PO DAILY OVERACTIVE BLADDER 04/16/23 [History Last Taken 04/16/23] phenazopyridine 200 mg tablet (Pyridium) 200 mg PO Q8H PRN Bladder Spasms 04/16/23 [History Last Taken Unknown] Allergy/AdvReac Type Severity Reaction Status Date / Time ampicillin [From Unasyn] Allergy Severe Blisters Verified 06/23/23 10:24 on tongue /throat difficulty breathing sore tongue/ warfarin sodium Allergy Severe Low red Verified 06/23/23 10:24 [From Coumadin] blood cells Family History Father Colon cancer Hypertension Mother Hypertension Surgical History H/O cardiac catheterization History of carpal tunnel surgery History of cholecystectomy History of cystoscopy History of embolic filter insertion History of embolic filter insertion History of gastric bypass History of hysterectomy Hx of cystoscopy Hx of cystoscopy S/P hysterectomy Total knee replacement status Social History (Updated 06/23/23 @ 11:21 by Celine Isaacs) housing: assisted living facility Smoking Status: Never smoker alcohol intake: current alcohol intake frequency: holidays/special occasions only substance use type: does not use what type of physical activity do you participate in: walking and aerobics frequency: 1-2 times per week EXAM Physical Exam Const Vital Signs: 06/23/23 10:21 06/23/23 11:06 06/23/23 11:06 Temperature 98.3 F Temperature Source Oral Pulse Rate 105 H 89 Respiratory Rate 16 16 Respiratory Effort Respiratory Depth Respiratory Pattern Blood Pressure 155/87 H 155/87 H Blood Pressure Mean 109 109 Pulse Ox 91 95 Oxygen Delivery Method Nasal Cannula Room Air Nasal Cannula Oxygen Flow Rate (L/min) 2 06/23/23 11:21 06/23/23 13:30 06/23/23 15:15 Temperature Temperature Source Pulse Rate 83 74 Respiratory Rate 18 18 Respiratory Effort Normal Respiratory Depth Normal Respiratory Pattern Normal Blood Pressure 94/54 L 111/54 L Blood Pressure Mean 67 73 Pulse Ox 94 96 92 Oxygen Delivery Method Nasal Cannula Nasal Cannula Nasal Cannula Oxygen Flow Rate (L/min) 2 2 06/23/23 15:15 Temperature Temperature Source Pulse Rate 74 Respiratory Rate 18 Respiratory Effort Respiratory Depth Respiratory Pattern Blood Pressure 111/54 L Blood Pressure Mean 73 Pulse Ox 92 Oxygen Delivery Method Oxygen Flow Rate (L/min) [facility] MDM Narrative Medical decision making narrative: HISTORY OF PRESENT ILLNESS: 78-year-old female here for fall, weakness. Noted by nursing staff to slide off the right side of the bed . She states this is secondary to weakness. Per EMS patient was noted to be hypoxic to 80% requiring new oxygen requirement. There is no reported head trauma. Patient does note she is short of breath and has been coughing. No sick contacts The patient denies recent surgery in the last 4 weeks or immobilization in the last 3 days, denies previous diagnosis of DVT or PE, hemoptysis, unilateral leg swelling or malignancy with treatment the last 6 months or palliative. No estrogen use noted. REVIEW OF SYSTEMS: Pertinent positives: Shortness of breath, cough Pertinent negatives: Chest pain, leg swelling, bleeding diathesis PHYSICAL EXAM: Nursing triage notes reviewed, Vital signs reviewed Constitutional: please see mdm HENT: MMM Eyes: Pupils equal round and reactive to light, Extraocular muscles intact Neck: No stridor, no JVD, full neck ROM Lungs: Clear to auscultation, No wheezing or rales. No increased work of breathing, no conversational dyspnea, no accessory muscle use, no nasal flaring. No respiratory distress noted nasal cannula in place Heart: Regular rate and rhythm, No murmurs, No rubs and No gallops, 2+ distal pulses (radial, femoral, posterior tibial) in all extremities Abdomen: Soft, there is no tenderness, rigidity, rebound or guarding, no obvious peritoneal signs, no palpable pulsatile abdominal masses, no auscultated abdominal bruit : No CVAT Extremities: No edema Neuro: No focal neurological deficits, cranial nerves II through XII intact, 5/5 strength in all extremities. Intact sensation to light touch in all extremities, 2+ reflexes bilateral patella tendons. Normal gait. No ataxia. Skin: No rash or lesions noted MEDICAL DECISION MAKING: Chief Complaint: Fall, weakness External records reviewed: Past visits reviewed, most recent admission in February 2023 for UTI Factors affecting care: Type 2 diabetes, depression, hyperlipidemia, Social determinants of health: Lives at assisted living History obtained from others: none Consults: General medicine MDM Narrative: Patient was initially tachycardic, hypoxic requiring new oxygen requirement I considered the following differential diagnosis: COVID, flu, RSV, ACS, arrhythmia, pneumonia, PE ALL IMAGES (IF OBTAINED) HAVE BEEN PERSONALLY REVIEWED AND INTERPRETED BY MYSELF. EKG with normal sinus rhythm, normal axis, normal intervals, no STEMI CBC without leukocytosis, severe anemia, no thrombocytopenia. BMP without evidence of significant electrolyte abnormalities, no anion gap, no acute kidney injury. High-sensitivity troponin is negative, no evidence of myocardial ischemia BNP mildly elevated send with ventricular stretch and increased transmural pressure COVID, flu, RSV are negative Urinalysis with signs of urine infection. Will send for culture Despite being on Eliquis I was concerned about PE given lack of findings such as pneumonia or COVID in the setting of new oxygen requirement and hypoxia. CTA of the chest was negative The synthesis of the patient's history, physical exam, labs, images suggest UTI and hypoxia. The etiology of his hypoxia is unclear at this time however will require further supportive therapy with oxygen and antibiotics to treat UTI. The patient and/or family, caregivers express understanding. The patient and/or family, caregivers agrees with the plan. Shared decision making: I will have a discussion with the patient and or visitors regarding risk/benefits of further testing or admission. They will be made aware of of the risk/benefits inherent in this decision they will be given the opportunity to voice understanding. Total critical care time today provided was at least 0 minutes. This excludes separately billable procedures. Critical care time (if documented) is secondary to the patient having high probability of clinically significant/life threatening deterioration in the patient's condition which required my urgent intervention. Impression: 1. hypoxia 2. weakness 3. fall 4. UTI Dispo: Admit Lab Data Labs: Laboratory Results - last 24 hr 06/23/23 06/23/23 11:00 11:10 WBC 7.3 RBC 3.79 L Hgb 12.2 Hct 39.4 MCV 104.0 H MCH 32.2 H MCHC 31.0 L RDW Std Deviation 49.9 H RDW Coeff of [place] 13.0 Plt Count 168 MPV 9.5 Immature Gran % (Auto) 0.400 Neut % (Auto) 82.3 H Lymph % (Auto) 6.[address] [place] % (Auto) 10.2 H Eos % (Auto) 0.3 Baso % (Auto) 0.7 Absolute Neuts (auto) 6.0 Absolute Lymphs (auto) 0.44 L Nucleated RBC % 0 Differential Comment SCANNED Sodium 139 Potassium 4.2 Chloride 110 H Carbon Dioxide 26.0 Anion Gap 3 L BUN 28 H Creatinine 0.92 Estim Creat Clear Calc 46.08 Est GFR (MDRD) Af Amer 76 Est GFR (MDRD) Non-Af 63 BUN/Creatinine Ratio 30.5 H Glucose 132 H Calcium 8.2 L Troponin I High Sens 26 B-Natriuretic Peptide 133.9 H Urine Color Yellow Urine Clarity Sl. Cloudy Urine pH 6.5 Ur Specific [place] 1.010 Urine Protein 30 H Urine Glucose (UA) Normal Urine Ketones Negative Urine Occult Blood 50 H Urine Nitrite Positive H Urine Bilirubin Negative Urine Urobilinogen Normal Ur Leukocyte Esterase 100 H Urine RBC 0 SEEN Urine WBC 10-25 SEEN Ur Squamous Epith Cells 0-5 SEEN Urine Bacteria 3+ Urine Mucus 0 SEEN Radiography Diagnostic Testing: Clinical Impression(s) from Imaging Studies Chest X-Ray 06/23/23 11:11 IMPRESSION: Stable chest with no acute or active cardiopulmonary disease. Electronically Signed: Juan Jernigan MD at 11:26 EST , Chest CTA 06/23/23 12:26 IMPRESSION: Normal CTA chest examination, without a demonstrated pulmonary embolism or arterial dissection. Electronically Signed: Conner Quintana MD at 14:22 EST , Discharge Plan Disposition Disposition: Acute Care [facility] Discharge Date/Time: 06/23/23 16:10
--- NOTE | 2023-06-23 11:11 | RAD_ITS ---
STUDY: X-RAY CHEST REASON FOR EXAM: Female, 78 years old. Hypoxia. TECHNIQUE: Single frontal view of the chest. COMPARISON: April 16, 2023 FINDINGS: Stable mild cardiomegaly, aortic tortuosity with calcification, prominent central pulmonary arteries, mild hyperinflation and mild diffuse interstitial pattern. No active or acute cardiopulmonary disease. Stable osteoarthrosis of both glenohumeral joints. No abnormality of the visualized soft tissue structures of the upper abdomen. RAD/Chest 1 View (Portable) IMPRESSION: Stable chest with no acute or active cardiopulmonary disease. Electronically Signed: Juan Jernigan MD at 11:26 EST ,
[2023-06-23 11:15] LABS: Absolute Lymphocyte Count 0.44 X10^3/uL (0.83-4.51); Basophil# 0.05 X10^3/uL; Basophil% 0.7 % (0-1); Eosinophil# 0.02 X10^3/uL; Eosinophils% 0.3 % (0-5); Hematocrit 39.4 % (37-47); Hemoglobin 12.2 g/dL (12.0-15.0); Lymphocyte # 0.44 X10^3/ul (0.83-4.51); Lymphocyte % 6.1 % (19-41); Mean Corpuscular Hgb 32.2 pg (27.0-32.0); Mean Platelet Vol. 9.5 fl (6.2-12.0); Monocyte# 0.74 X10^3/uL; Monocyte% 10.2 % (0-10); NRBC Flagged by Analyzer 0 % (0-5); Neutrophil # 5.99 X10^3/uL (2.7-7.7); Neutrophil % 82.3 % (47-70); POSITIVE DIFFERENTIAL YES; Platelet Count 168 K/mm3 (150-450); RBC Distribution Width SD 49.9 fl (35.1-43.9); Red Blood Count 3.79 M/mm3 (4.2-5.4); White Blood Count 7.3 K/mm3 (4.4-11.0)
[2023-06-23 11:18] LABS: Differential Indicated SCAN CRITERIA MET
[2023-06-23 11:32] LABS: Differential Comment SCANNED
[2023-06-23 11:33] LABS: Anion Gap 3 (5-15); BUN 28 mg/dL (7-18); BUN/Creat Ratio 30.5 RATIO (10-20); Calcium,Total 8.2 mg/dL (8.5-10.1); Chloride 110 mmol/L (98-107); Creatinine, Serum 0.92 mg/dL (0.55-1.02); EST Glomerular Filtration Rate 63 mL/min (>60); Est Glom Filt Rate - Afr Amer 76 mL/min (>60); Estimated Creatinine Clearance 46.08 ml/min; Glucose 132 mg/dL (74-106); Potassium 4.2 mmol/L (3.5-5.1); Sodium Level 139 mmol/L (136-145); Troponin-I HS 26 pg/mL (3.0-54.0)
[2023-06-23 11:34] LABS: BNP,B-Type NATRIURETIC PEPTIDE 133.9 pg/mL (0-100)
[2023-06-23 11:44] LABS: Mucous, Urine 0 SEEN /hpf (<or=2+); Red Blood Cells-Urine 0 SEEN /hpf (0-5)
--- OUTSIDE RECORDS SUMMARY | 2023-06-23 11:49 | XMS RPT_ITS | CCD ---
Author Name Unknown Address [address] [place] [address] Organization [facility] Care Team Providers Care Sales Marketing Coordinator Name Role Phone Bogdan Ewing Unavailable [phone] ALETHA KISER Unavailable Unavailable ALETHA KISER Unavailable Unavailable COLLETTE, KHALED Unavailable Unavailable PROVIDER, UNKNOWN Admitting Unavailable KHARI MCADAMS Attending Unavailable Pcp REFLECTOR DRILLER AND DEBURRER, No Primary Care Provider Unavailabl e Pcp REFLECTOR DRILLER AND DEBURRER, No Primary Care Provider Unavailabl e Pcp REFLECTOR DRILLER AND DEBURRER, No Primary Care Provider Unavailabl e Celeste Benedict MD Unavailable Pcp REFLECTOR DRILLER AND DEBURRER, No Primary Care Provider Unavailabl e Genna Mccarthy DO Primary Care Provider Jefferson Roman Chi Primary Care Provider Allergies Allergy Classification Reported Allergen(s) Allergy Type Date of Onset Reaction(s) Facility (2 sources) warfarin drug allergy 7 [facility] Work Phone: (3 sources) amoxicillin; Translations: [AMOXICILLIN] Drug Allergy 7 Anaphylaxis [facility] Other [place] [facility] (3 sources) warfarin; Translations: [WARFARIN SODIUM] Drug Allergy 2 Other: See Comments [facility] Repository (1 source) Ampicillin; Translations: [AMPICILLIN] Drug Allergy 9 [facility] Repository Medications Completed/Discontinued Medications Medication Drug Class(es) Dates Sig (Normalized) Sig (Original) acetaminophen 500 mg oral tablet (2 sources) Start: 12-19-2016 ACETAMINOPHEN EXTRA STRENGTH 500 MG TABS ACETAMINOPHEN [id number] Bogdan JOSHI amitriptyline hydrochloride 25 mg oral tablet (2 sources) Tricyclic Antidepressant Start: 12-19-2016 AMITRIPTYLINE HCL 25 MG TABS AMITRIPTYLINE HCL [id number] Bogdan JOSHI AMOXICILLIN-POT CLAVULANATE (2 sources) Penicillin-class Antibacterial Start: 12-19-2016 AUGMENTIN 500-125 MG TABS 1 tablet twice daily AMOXICILLIN-POT CLAVULANATE [id number] Bogdan JOSHI denosumab 60 mg/ml injectable solution (2 sources) RANK Ligand Inhibitor Start: 12-19-2016 PROLIA 60 MG/ML SOLN DENOSUMAB [id number] Bogdan JOSHI DULoxetine 60 mg delayed release oral capsule (2 sources) Serotonin and Norepinephrine Reuptake Inhibitor Start: 12-19-2016 CYMBALTA 60 MG CPEP DULOXETINE HCL [id number] Bogdan JOSHI ergocalciferol 55952 unt oral tablet (2 sources) Provitamin D2 Compound Start: 12-19-2016 VITAMIN D (ERGOCALCIFEROL) 44397 UNIT CAPS ERGOCALCIFEROL [id number] Bogdan JOSHI FLUTICASONE PROPIONATE (2 sources) Corticosteroid Start: 12-19-2016 FLONASE ALLERGY RELIEF 50 MCG/ACT SUSP FLUTICASONE PROPIONATE [id number] Bogdan JOSHI furosemide 40 mg oral tablet (2 sources) Loop Diuretic Start: 12-19-2016 LASIX 40 MG TABS FUROSEMIDE [id number] Bogdan JOSHI gabapentin 300 mg oral tablet (2 sources) Anti-epileptic Agent Start: 12-19-2016 NEURONTIN 300 MG CAPS GABAPENTIN [id number] Bogdan JOSHI vitamin b 12 3 mg sublingual tablet (2 sources) Vitamin B12 B-12 [address] CYANOCOBALAMIN [id number] Bogdan JOSHI Problems Active Problems Problem Classification Problem Date Documented Date Episodic/Chronic Diabetes mellitus without complication (2 sources) Diabetes mellitus; Translations: [Type 2 diabetes mellitus without complications] 06-18-2021 Chronic Essential hypertension (2 sources) Hypertensive disorder; Translations: [Essential (primary) hypertension] 06-18-2021 Chronic External Injury - Natural / Environment (2 sources) Scratched by cat, initial encounter; Translations: [Scratched by cat, initial encounter] Onset: 12-19-2016 12-19-2016 Osteoarthritis (2 sources) Osteoarthritis of knee; Translations: [Osteoarthritis of knee, unspecified] Onset: 05-03-2011 05-03-2011 Chronic Other connective tissue disease (2 sources) History of total knee arthroplasty; Translations: [Presence of unspecified artificial knee joint] Onset: 04-15-2012 04-15-2012 Chronic Other nutritional; endocrine; and metabolic disorders (2 sources) Morbid obesity; Translations: [Morbid (severe) obesity due to excess calories] Onset: 02-20-2012 06-18-2021 Chronic Other nutritional; endocrine; and metabolic disorders (2 sources) Obesity; Translations: [Obesity, unspecified] 02-20-2012 Chronic Past or Other Problems Problem Classification Problem Date Documented Da te Episodic/Chronic Abdominal pain (3 sources) Unspecified abdominal pain; Translations: [Right flank pain] Onset: 7 06-19-2017 Episodic Other and unspecified benign neoplasm (1 source) Personal history of colonic polyps; Translations: [Personal history of colonic polyps] Onset: 7 Episodic Other complications of (2 sources) Antepartum deep vein thrombosis; Translations: [Deep phlebothrombosis in , unspecified trimester] Onset: 7 07-10-2016 Episodic Other connective tissue disease (2 sources) Hamstring injury; Translations: [Other specified enthesopathies of unspecified lower limb, excluding foot] Onset: 3 04-14-2013 Episodic Other gastrointestinal disorders (1 source) Other specified diseases of intestine; Translations: [Other specified diseases of intestine] Onset: 7 Episodic Other screening for suspected conditions (not mental disorders or infectious disease) (2 sources) Mammography abnormal; Translations: [Other abnormal and inconclusive findings on diagnostic imaging of breast] Onset: 3 04-02-2013 Episodic Pulmonary heart disease (2 sources) Pulmonary embolism; Translations: [Other pulmonary embolism without acute cor pulmonale] Onset: 1 06-18-2021 Episodic Unclassified (1 source) Family history of malignant neoplasm of digestive organs; Translations: [Family history of malignant neoplasm of digestive organs] Onset: 7 Episodic Urinary tract infections (3 sources) Acute cystitis without hematuria; Translations: [Lower urinary tract infectious disease] Onset: 3 08-26-2012 Episodic Results Test Name Value Interpretation Reference Range Facil ity Vital Signs Date Time Vital Sign Value Performing Clinician Faci lity 12-19-2016 16:20-0400 Body Temperature 98 [degF] Bogdan JOSHI [facility] Work Phone: 12-19-2016 16:20-0400 BP Diastolic 78 mm[Hg] Bogdan JOSHI [facility] Work Phone: 12-19-2016 16:20-0400 BP Systolic 130 mm[Hg] Bogdan JOSHI [facility] Work Phone: 12-19-2016 16:20-0400 Pulse (Heart Rate) 98 /min Bogdan JOSHI [facility] Work Phone: 12-19-2016 16:20-0400 Respiratory Rate 12 /min Bogdan JOSHI [facility] Work Phone: 12-19-2016 16:20-0400 Weight 133.36 kg Bogdan JOSHI [facility] Work Phone: Encounters Encounter Date Encounter Type Care Provider Facility Start: 09-04-2018 End: 09-04-2018 Emergency department patient visit UNKNOWN PROVIDER Facility:[facility] Start: 06-17-2017 End: 06-19-2017 [facility]: 01-17-2006 Documentation procedure Brittany Mccloud MD Work Phone: [facility] Start: 01-17-2006 Historic EMR Kg Mccloud MD Work Phone: [facility] Start: 03-23-2005 Documentation procedure Kyler Li MD Work Phone: [facility] Start: 03-23-2005 Historic EMR Ciara suarez MD Work Phone: [facility] Procedures Date Procedure Procedure Detail Performing Clinician Start: 09-04-2018 Blood count complete auto&auto difrntl wbc UNKNOWN PROVIDER Start: 09-04-2018 DISCHARGE PATIENT UNKNO WN PROVIDER Start: 09-04-2018 Ecg routine ecg w/le ast 12 lds trcg only w/o i&r UNKNOWN PROVIDER Start: 09-04-2018 Hepatitis c antibody UN KNOWN PROVIDER Start: 01-17-2006 SURGICAL PATHOLOGY, CONVERTED Kg Mccloud MD Work Phone: Start: 03-22-2005 SURGICAL PATHOLOGY, CONVERTED Ciara Li MD Work Phone: Plan of Treatment Date Care Activity Detail Author Start: 02-21-2023 Influenza vaccination Influenza Vaccine (#1) [facility] Start: 06-23-2022 Advance Directive Discussion Advance Directive Discussion [facility] Start: 06-23-2022 Depression Assessment Depression Assessment [facility] Start: 09-04-2019 Hepatitis B surface antibody level LDL Cholesterol [facility] Start: 12-19-2016 End: 12-19-2016 Appointment Appointment [facility] Work Phone: Start: 09-02-2011 Pneumococcal Vaccine: 65+ (2 - PCV) Pneumococcal Vaccine: 65+ (2 - PCV) [facility] Start: 06-29-2011 Hemoglobin A1c/Hemoglobin.total in Blood HbA1C [facility] Start: 2011 Bone Density Screening Bone Density Screening [facility] Start: 1996 Shingrix Vaccine (1 of 2) Shingrix Vaccine (1 of 2) [facility] Start: 1965 Urine microalbumin profile DTaP,Tdap,Td Vaccine (1 - Tdap) [facility] Start: 1964 Hepatitis C Screening Hepatitis C Screening [facility] Start: 1956 3 comp foot exam completed Diabetic Foot Exam [facility] Start: 1956 Hepatitis B screening Urine Albumin:Creatinine Ratio [facility] Start: 1956 Hepatitis C antibody, confirmatory test Dilated Retinal Exam [facility] Start: 1946 Covid-19 Vaccine (#1) Covid-19 Vaccine (#1) [facility] Work Phone: Immunizations Immunization Date Immunization Notes Care Provider Anushka thomas 03-12-2012 influenza virus vacc ine, unspecified formulation Ciara Li MD Work Phone: [facility] Payers Date Payer Category Payer Unknown [id number] 1945 Unknown [id number] Social History Date Type Detail Facility Tobacco smoking stat [facility] Tobacco smoking consumption unknown [facility] Start: 01-19-2019 History of Social function [facility] Start: 01-19-2019 Tobacco use panel [facility] Start: 1945 Sex Assigned At Not on file C [facility] Medical Equipment Procedure Code Equipment Code Equipment Origin al Text Equipment Identifier Dates Cement Bone Simp luisana P W/ Tobramycin 1gm - [id number] Start: 03-10-2012 Cement Bone Simp luisana P W/ Tobramycin 1gm - [id number] Start: 09-01-2012 Comp Fem 5 Rt Kn Cr Victorino Trthln - [id number] Start: 03-10-2012 Ins Tib 5 13mm X 3 Cndyl Stab - [id number] Start: 03-10-2012 Ins Tib 5 11mm X 3 Cs Trthln - [id number] Start: 09-01-2012 Comp Pat 10mm 35 mm Asym Trthln - [id number] Start: 03-10-2012 Comp Pat 10mm 35 mm Asym Trthln - [id number] Start: 09-01-2012 Screw Bn 3.5mm 4 0mm Dcp Lc Dcp - [id number] Start: 09-01-2012 History of Past illness Narrative 06-17-2017 Note Date & Type Note Facility documented as of this encounter (statuses as of 03/13/2023) [facility] Summary Purpose Family History No Family History Records FoundNo Family History Records FoundNo Family History Records FoundNo Family History Records FoundNo Family History Records Found Advance Directives Documents on File Type Date Recorded 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 Advance Directive(s) 08/27/2012 8:21 PM Advance Directive(s) 08/27/2012 9:37 AM Procedure Findings Note HNO ID: [id number] Author: Ermelinda Dupont Service: Gastroenterology Surgery Author Type: Physician Type: Brief Op Note Filed: 11/06/2018 8:52 AM Note Text: BRIEF OPERATIVE / PROCEDURE NOTE LOG ID: [id number] SURGERY/PROCEDURE DATE: 11/06/2018 INCISION/PROCEDURE START TIME: 8:32 AM INCISION CLOSE/PROCEDURE END TIME: 8:41 AM SURGEON(S)/PROCEDURALIST(S) AND RUBBER TIRE AND TUBES SUPERVISOR(S): Surgeon(s) and Role: * Bull Dupont - Primary No Additional Staff SURGERY/PROCEDURE(S): EGD with biopsy gastric pouch ANESTHESIA: Monitored Anesthesia Care FINDINGS: 3-4 cm hiatal hernia ESTIMATED BLOOD LOSS: 0 ml SPECIMENS: gastric pouch COMPLICATIONS: None PRE-OP/PRE-PROCEDURE DIAGNOSIS: GERD POST-OP/POST-PROCEDURE DIAGNOSIS: Gastroesophageal reflux disease, esophagitis presence not specified [K21.9] 3-4 cm hiatal hernia SIGNATURE: Bull Dupont MD, [facility] PATIENT NAME: Adam Anderson DATE: November 06, 2018 TIME: 8:51 AM PAGER/CONTACT #: Additional Source Comments INFORMATION SOURCE (unrecogn ized section and content) DATE CREATED AUTHOR AUTHOR'S ORGANIZ ATION 11/19/2018 [facility] DATE CREATED AUTHOR AUTHOR'S ORGANIZ ATION 11/24/2018 [facility] DATE CREATED AUTHOR AUTHOR'S ORGANIZ ATION 09/07/2019 [facility] DATE CREATED AUTHOR AUTHOR'S ORGANIZ ATION 07/19/2021 [facility] Source Comments (unrecognize d section and content) In the event this informatio n is protected by the Federal Confidentiality of Alcohol and Drug Abuse Patient Records regulations: The Federal rules restrict any use of the information to criminally investigate or prosecute any alcohol or drug abuse patient.[facility] the event this information is protected by the Federal Confidentiality of Alcohol and Drug Abuse Patient Records regulations: The Federal rules restrict any use of the information to criminally investigate or prosecute any alcohol or drug abuse patient.[facility] Care Teams (unrecognized sec tion and content) FOR RECORDS PERTAINING TO PATIENTS WHO ARE OR HAVE BEEN ENROLLED IN A CHEMICAL DEPENDENCY/SUBSTANCEABUSE PROGRAM, SOME INFORMATION MAY BE OMITTED. This clinical summary was aggregated from multiple sources. Caution should be exercised in using it in the provision of clinical care. This summary normalizes information from multiple sources, and as a consequence, information in this document may materially change the coding, format and clinical context of patient data. In addition, data may be omitted in some cases. CLINICAL DECISIONS SHOULD BE BASED ON THE PRIMARY CLINICAL RECORDS. [facility] [employer] [facility]. provides no warranty or guarantee of the accuracy or completeness of information in this document.
[2023-06-23 11:53] LABS: Color, Urine Yellow (Yellow); Glucose, Dipstick Normal (Normal); Ketone-Dipstick Negative (Negative); Leukocyte Esterase-Dipstick 100 /ul (Negative); Nitrite-Dipstick Positive (Negative); Occult Blood-Urine 50 /ul (Negative); Protein-Dipstick 30 mg/dl (Negative); Urine Bilirubin Dipstick Negative (Negative); Urine Clarity Sl. Cloudy (Clear); Urine Urobilinogen Normal (Normal); Urine pH 6.5 (5.0 - 8.0)
[2023-06-23] MEDS: Acetaminophen 325 MG Tablet 650 MG PO ×2 (12:12→20:52)
--- NOTE | 2023-06-23 12:26 | CT_ITS ---
STUDY: CTA CHEST REASON FOR EXAM: Female, 78 years old. hypoxia r/o PE RADIATION DOSAGE (If Supplied By Facility): CTDIvol = ( 12.37 ) mGy, DLP = ( 639.29 ) mGycm TECHNIQUE: The examination was performed with the intravenous administration of IV 100mL [id number]-370. Post-processing of the angiographic images was performed, with multiplanar reformation and 3D reconstruction. Individualized dose optimization techniques were used for this CT. COMPARISON: 09/03/2017, chest x-ray earlier today FINDINGS: Normal enhancement of the main pulmonary artery and right and left pulmonary arteries. Normal enhancement of the bilateral peripheral pulmonary arteries. There is no demonstrated pulmonary embolism. Normal thoracic aorta and visualized great vessels. There is no demonstrated aortic dissection. Normal heart and pericardium. Small hiatal hernia. Normal mediastinum. Normal hilar regions. Normal visualized trachea and bronchi. The lungs are well expanded. Normal pulmonary parenchyma. Normal pleura. Normal chest wall structures. Normal osseous structures. Prominent hemangioma in the mid thoracic spine. Postsurgical changes to the stomach. CT/CTA Chest W/WO Contrast IMPRESSION: Normal CTA chest examination, without a demonstrated pulmonary embolism or arterial dissection. Electronically Signed: Conner Quintana MD at 14:22 EST ,
[2023-06-23 12:58] LABS: Bacteria 3+ /hpf (None Seen); Squamous Epithelial Cells - UA 0-5 SEEN /hpf (5-10); White Blood Cells 10-25 SEEN /hpf (0-5)
[2023-06-23] MEDS: Morphine 2 MG/ML Syringe IV (14:32)
[2023-06-23] MEDS: Ceftriaxone 1 GM/50 ML BAG IV (14:38)
--- NOTE | 2023-06-23 14:43 | HP.PCM.HOS_ITS ---
HPI - General General Date of Admission: 06/23/23 Date of Service: 06/23/23 Chief Complaint: Shortness of breath HPI Narrative ADAM NIX, is a 78 F with past medical history of type 2 DM, ESBL UTI, pulmonary embolism on Eliquis 5 mg twice daily,, prior DVT with IVC filter in place, gastric bypass, nephrolithiasis presented to the ED with concerns of fall and progressive easy fatigability. She was also hypoxic to 80% saturation and r equired oxygen support at the time of presentation. Per the patient, she has been having cough since the last 3 to 4 days. This morning she woke up with a fever, tried to get out of bed slipped and fell. Did not hit her head. She has associated dysuria but this is not a new symptom and has been ongoing since the last few months. She lives in assisted living [facility], does not have any sick contacts. Ther e have been few cases of COVID at the SNF. Recent admission: She was recently discharged on 04/17/2023 after treatment for possible pneumonia, she is was started on Levaquin therapy at that time. She was discharged off oxygen on a few days of cefdinir and azithromycin. She had associated dysuria but further urine evaluation was negative for infection. Today, On evaluation, CTA chest examination was normal. Chest x-ray showed stable cardiomegaly, prominent central pulmonary arteries, mild hyperinflation and diffuse interstitial pattern. Her influenza, RSV PCR and COVID 19 testing has been negative. White count is 7.3, hemoglobin 12.2, platelet count 168, BUN of 28, creatinine 0.9 BMP 133.9 urine nitrite positive, leuk esterase 100 WBC 10- 25. REPLACED BY [facility] Medical History Anxiety and depression Arthritis Back pain Bladder disease Carpal tunnel syndrome Cataracts, both eyes Chronic anticoagulation Chronic neuropathic pain Chronic pain following surgery or procedure Chronic UTI Closed left arm fracture Cystitis Depression Diabetes Diabetic neuropathy associated with type 2 diabetes mellitus DM II (diabetes mellitus, type II), controlled Facet arthropathy, lumbar FHx: cholecystectomy GERD (gastroesophageal reflux disease) GERD (gastroesophageal reflux disease) GI bleed Hematoma Hiatal hernia High cholesterol History of DVT (deep vein thrombosis) History of edema History of gallstones History of pain when walking History of stress test HLD (hyperlipidemia) Hx of peripheral neuropathy Hydronephrosis 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 Injury of head and neck Kidney stones Left shoulder pain Low iron Morbid obesity with BMI of 45.0-49.9, adult Neuropathy Non-smoker Non-smoker Normocytic anemia ROXIE (obstructive sleep apnea) Osteoarthritis Polycystic ovaries Primary osteoarthritis, left shoulder Pulmonary embolism Restless legs Segmental and somatic dysfunction of cervical region Segmental and somatic dysfunction of lumbar region Segmental and somatic dysfunction of pelvic region Segmental and somatic dysfunction of thoracic region Shortness of breath on exertion Uses wheelchair Walker as ambulation aid Wears dentures Wears hearing aid Home Medications cholecalciferol (vitamin D3) 25 mcg (1,000 unit) tablet (Vitamin D3) 1,000 unit PO DAILY vitamin 12/29/15 [History Last Taken 04/16/23] pravastatin 40 mg tablet 40 mg PO QHS cholesterol 08/05/18 [History Last Taken 04/15/23] fluticasone propionate 50 mcg/actuation nasal spray,suspension 2 spray NASAL DAILY allergies 03/18/19 [History Last Taken 04/16/23] primidone 50 mg tablet 100 mg PO TID tremors 03/18/19 [History Last Taken 04/16/23] simethicone 80 mg chewable tablet 80 mg PO TIDCM indigestion 03/18/19 [History Last Taken 04/16/23] mirabegron 50 mg tablet,extended release 24 hr 50 mg PO QHS bladder control 01/24/20 [History Last Taken 04/15/23] bupropion HCl 150 mg 24 hr tablet, extended release 150 mg PO DAILY DEPRESSION 08/09/20 [History Last Taken 04/16/23] aluminum-mag hydroxide-simethicone 400 mg-400 mg-40 mg/5 mL oral susp 30 ml PO Q4H PRN GI DISTRESS 08/20/20 [History Last Taken 10/22/20] ascorbic acid (vitamin C) 500 mg tablet 500 mg PO DAILY supplement 09/28/20 [History Last Taken 04/16/23] cyanocobalamin (vitamin B-12) 1,000 mcg/mL injection solution 1,000 mcg IM QMONTH supplement 10/23/20 [History Last Taken 08/24/21] nystatin 100,000 unit/gram topical powder 1 applic topical Q8H PRN Skin Irritation 07/30/21 [History Last Taken Unknown] furosemide 20 mg tablet 60 mg (3 x 20 mg) PO DAILY #0 tabs 08/14/21 [Rx Last Ta bossman 04/16/23] apixaban 5 mg tablet (Eliquis) 5 mg PO BID 09/30/21 [History Last Taken 04/16/23] divalproex 500 mg tablet,delayed release (Depakote) 500 mg PO BID 09/30/21 [History Last Taken 04/16/23] halobetasol propionate 0.05 % topical cream 0.05 applic topical BID 11/03/21 [History Last Taken 04/16/23] d-mannose 500 mg capsule 1,000 mg PO BID 12/05/21 [History Last Taken 04/16/23] polyethylene glycol 3350 17 gram oral powder packet (Miralax) 17 g PO Q24H PRN Constipation 12/05/21 [History Last Taken Unknown] duloxetine 60 mg capsule,delayed release (Cymbalta) 60 mg PO DAILY 03/19/23 [History Last Taken 04/16/23] famotidine 40 mg tablet 40 mg PO QHS 03/19/23 [History Last Taken 04/15/23] ferrous sulfate 325 mg (65 mg iron) tablet (Feosol) 325 mg PO DAILY 03/19/23 [History Last Taken 04/16/23] hydrocodone 7.5 mg-acetaminophen 325 mg tablet 1 tab PO Q12H PRN pain 03/19/23 [History Last Taken Unknown] albuterol sulfate 2.5 mg/3 mL (0.083 %) solution for nebulization 2.5 mg inhalation Q2H PRN Dyspnea, wheezing 04/16/23 [History Last Taken Unknown] omeprazole 40 mg capsule,delayed release 40 mg PO DAILY 04/16/23 [History Last Taken 04/16/23] ondansetron HCl 8 mg tablet 8 mg PO Q8H PRN Nausea 04/16/23 [History Last Taken Unknown] oxybutynin chloride 5 mg tablet,extended release 24 hr 5 mg PO DAILY OVERACTIVE BLADDER 04/16/23 [History Last Taken 04/16/23] phenazopyridine 200 mg tablet (Pyridium) 200 mg PO Q8H PRN Bladder Spasms 04/16/23 [History Last Taken Unknown] Allergy/AdvReac Type Severity Reaction Status Date / Time ampicillin [From Unasyn] Allergy Severe Blisters Verified 06/23/23 10:24 on tongue /throat difficulty breathing sore tongue/ warfarin sodium Allergy Severe Low red Verified 06/23/23 10:24 [From Coumadin] blood cells Family History Father Colon cancer Hypertension Mother Hypertension Surgical History H/O cardiac catheterization History of carpal tunnel surgery History of cholecystectomy History of cystoscopy History of embolic filter insertion History of embolic filter insertion History of gastric bypass History of hysterectomy Hx of cystoscopy Hx of cystoscopy S/P hysterectomy Total knee replacement status Social History (Updated 06/23/23 @ 11:21 by Celine Isaacs) housing: assisted living facility Smoking Status: Never smoker alcohol intake: current alcohol intake frequency: holidays/special occasions only substance use type: does not use what type of physical activity do you participate in: walking and aerobics frequency: 1-2 times per week ROS Review of Systems ROS Unobtainable: Denies due to encephalopathy, due to endotracheal tube, due to mental condition, due to mental status or other Constitutional Constitutional: Reports fatigue and malaise Respiratory/Chest Respiratory/Chest: Reports cough, dyspnea and shortness of breath with exertion Gastrointestinal Gastrointestinal: Denies abdominal pain, coffee ground emesis, constipation, diarrhea, dyspepsia, hematemesis, hematochezia, loose stools, melena, nausea, vomiting or other Genitourinary Genitourinary: Reports burning urination, difficulty urinating, dysuria, nocturia and urinary frequency Vital Signs Vital Signs Vital Signs: 06/23/23 10:21 06/23/23 11:06 06/23/23 11:06 Temperature 98.3 F Temperature Source Oral Pulse Rate 105 H 89 Respiratory Rate 16 16 Respiratory Effort Respiratory Depth Respiratory Pattern Blood Pressure 155/87 H 155/87 H Blood Pressure Mean 109 109 Pulse Ox 91 95 Oxygen Delivery Method Nasal Cannula Room Air Nasal Cannula Oxygen Flow Rate (L/min) 2 06/23/23 11:21 Temperature Temperature Source Pulse Rate Respiratory Rate Respiratory Effort Normal Respiratory Depth Normal Respiratory Pattern Normal Blood Pressure Blood Pressure Mean Pulse Ox 94 Oxygen Delivery Method Nasal Cannula Oxygen Flow Rate (L/min) 2 Weight Weight: 297 lb 13.512 oz Body Mass Index (BMI) 49.5 Physical Exam Const alert and oriented x3 Neck no lymphadenopathy Resp normal respiratory effort Cardio regular rate and regular rhythm Extremity Extremity Narrative: Bilateral mild pitting edema till the ankles Neuro oriented x3 Results Medical Records Data Attestation: I reviewed the patient's medical records Lab / Micro Data Attestation: I reviewed the patient's lab results. 06/23/23 11:10 06/23/23 11:10 Labs: Laboratory Results - last 24 hr 06/23/23 11:00: Urine Color Yellow, Urine Clarity Sl. Cloudy, Urine pH 6.5, Ur Specific [place] 1.010, Urine Protein 30 H, Urine Glucose (UA) Normal, Urine Ketones Negative, Urine Occult Blood 50 H, Urine Nitrite Positive H, Urine Bilirubin Negative, Urine Urobilinogen Normal, Ur Leukocyte Esterase 100 H, Urine RBC 0 SEEN, Urine WBC 10-25 SEEN, Ur Squamous Epith Cells 0-5 SEEN, Urine Bacteria 3+, Urine Mucus 0 SEEN 06/23/23 11:10: WBC 7.3, RBC 3.79 L, Hgb 12.2, Hct 39.4, MCV 104.0 H, MCH 32.2 H , MCHC 31.0 L, RDW Std Deviation 49.9 H, RDW Coeff of Chani 13.0, Plt Count 168, MPV 9.5, Immature Gran % (Auto) 0.400, Neut % (Auto) 82.3 H, Lymph % (Auto) 6.1 L, Campbell % (Auto) 10.2 H, Eos % (Auto) 0.3, Baso % (Auto) 0.7, Absolute Neuts (auto) 6.0, Absolute Lymphs (auto) 0.44 L, Nucleated RBC % 0, Differential Comment SCANNED, Sodium 139, Potassium 4.2, Chloride 110 H, Carbon Dioxide 26.0, Anion Gap 3 L, BUN 28 H, Creatinine 0.92, Estim Creat Clear Calc 46.08, Est GFR (MDRD) Af Amer 76, Est GFR (MDRD) Non-Af 63, BUN/Creatinine Ratio 30.5 H, Glucose 132 H, Calcium 8.2 L, Troponin I High Sens 26, B-Natriuretic Peptide 133.9 H Micro: Microbiology 06/23/23 11:13 Nasal Secretion SARS-CoV-2 Antigen (Rapid) - Final 06/23/23 11:13 Mucosa - Nose Influenza & RSV (PCR) - Final Imagaing Radiology Impression Chest X-Ray 06/23/23 11:11 IMPRESSION: Stable chest with no acute or active cardiopulmonary disease. Electronically Signed: Juan Jernigan MD at 11:26 EST , Chest CTA 06/23/23 12:26 IMPRESSION: Normal CTA chest examination, without a demonstrated pulmonary embolism or arterial dissection. Electronically Signed: Conner Quintana MD at 14:22 EST , Assessment & Plan Assessment/Plan (1) Pneumonia: QUALIFIERS: Laterality: right Lung location: lower lobe of lung Pneumonia type: due to unspecified organism Qualified Code(s): J18.9 - Pneumonia, unspecified organism PLAN: Plan 78-year-old female Ms. Nix presents with concerns of cough, fever and shortness of breath since the last 3 days. Based on her presentation, she lives in an assisted living facility, community-acquired pneumonia seems most likely. Has no prior history of heart failure, mild pitting edema bilaterally but BNP is not significantly elevated. 1. Acute on chronic respiratory failure: Suspected viral infection versus community-acquired pneumonia. Chronic cough and wet cough for the last 3 days with fever today, now presenting with hypoxia. -Will start her on therapy for community-acquired pneumonia given she is in an assisted living facility, has chronic comorbidities. -Respiratory therapy evaluation, bronchopulmonary hygiene - IV levofloxacin plus azithromycin therapy 2. Chronic dysuria: Prior urine cultures showed polymicrobial infection. There is no change in her urinary symtoms. Continue antibiotics as above. 3. Prior pulmonary embolism, DVT: Continue apixaban 5 mg twice daily, IVC filter in place. CTA not suggestive of any active embolus. 4. Falls: Physical therapy/Occupational Therapy evaluation, likely in the setting of fatigue from infection. 5. Iron deficiency anemia: Continue ferrous sulfate 6. Suspected HFrEF continue furosemide 60 mg daily 7. Hyperactive bladder: continue mirabegron on 50 mg at bedtime, oxybutynin 5 mg daily 8. Tremors: Continue primidone 100 mg 3 times daily 9. Peptic ulcer disease: continue omeprazole, Pepcid, simethicone. Charges/Coding Multi Select Codes Visit Charges Visit Charges: 54513 Init Hosp L2
--- OUTSIDE RECORDS SUMMARY | 2023-06-23 15:37 | XMS RPT_ITS | CCD ---
Author Name Unknown Address [address] [place] [address] Organization [facility] Care Team Providers Care Program Control Analyst Name Role Phone Bogdan Ewing Unavailable [phone] ALETHA KISER Unavailable Unavailable ALETHA KISER Unavailable Unavailable COLLETTE, KHALED Unavailable Unavailable PROVIDER, UNKNOWN Admitting Unavailable KHARI MCADAMS Attending Unavailable Pcp [place], No Primary Care Provider Unavailabl e Pcp [place], No Primary Care Provider Unavailabl e Pcp [place], No Primary Care Provider Unavailabl e Celeste Benedict MD Unavailable Pcp [place], No Primary Care Provider Unavailabl e Genna Mccarthy DO Primary Care Provider Jefferson Roman Chi Primary Care Provider [phone] Allergies Allergy Classification Reported Allergen(s) Allergy Type Date of Onset Reaction(s) Facility (2 sources) warfarin drug allergy 7 [facility] Work Phone: (3 sources) amoxicillin; Translations: [AMOXICILLIN] Drug Allergy 7 Anaphylaxis [facility] Other [facility] Rep[facility] (3 sources) warfarin; Translations: [WARFARIN SODIUM] Drug Allergy 2 Other: See Comments [facility] Repository (1 source) Ampicillin; Translations: [AMPICILLIN] Drug Allergy 9 [facility] Repository Medications Completed/Discontinued Medications Medication Drug Class(es) Dates Sig (Normalized) Sig (Original) acetaminophen 500 mg oral tablet (2 sources) Start: 12-19-2016 ACETAMINOPHEN EXTRA STRENGTH 500 MG TABS ACETAMINOPHEN [id number] Bogdan JOSHI amitriptyline hydrochloride 25 mg oral tablet (2 sources) Tricyclic Antidepressant Start: 12-19-2016 AMITRIPTYLINE HCL 25 MG TABS AMITRIPTYLINE HCL [id number] Bogdan JOSHI AMOXICILLIN-POT CLAVULANATE (2 sources) Penicillin-class Antibacterial Start: 12-19-2016 AUGMENTIN 500-125 MG TABS 1 tablet twice daily AMOXICILLIN-POT CLAVULANATE [id number] Bogdan JOSHI denosumab 60 mg/ml injectable solution (2 sources) RANK Ligand Inhibitor Start: 12-19-2016 PROLIA 60 MG/ML SOLN DENOSUMAB [id number] Bogdan JOSHI DULoxetine 60 mg delayed release oral capsule (2 sources) Serotonin and Norepinephrine Reuptake Inhibitor Start: 12-19-2016 CYMBALTA 60 MG CPEP DULOXETINE HCL [id number] Bogdan JOSHI ergocalciferol 72503 unt oral tablet (2 sources) Provitamin D2 Compound Start: 12-19-2016 VITAMIN D (ERGOCALCIFEROL) 75655 UNIT CAPS ERGOCALCIFEROL 77525691693 Bogdan JOSHI FLUTICASONE PROPIONATE (2 sources) Corticosteroid Start: 12-19-2016 FLONASE ALLERGY RELIEF 50 MCG/ACT SUSP FLUTICASONE PROPIONATE 25493255399 Bogdan JOSHI furosemide 40 mg oral tablet (2 sources) Loop Diuretic Start: 12-19-2016 LASIX 40 MG TABS FUROSEMIDE [id number] Bogdan JOSHI gabapentin 300 mg oral tablet (2 sources) Anti-epileptic Agent Start: 12-19-2016 NEURONTIN 300 MG CAPS GABAPENTIN [id number] Bogdan JOSHI vitamin b 12 3 mg sublingual tablet (2 sources) Vitamin B12 B-12 [address] CYANOCOBALAMIN [id number] Bogdan JOSHI Problems Active Problems Problem Classification [...] 16:20-0400 Body Temperature 98 [degF] Bogdan JOSHI [facility] Work Phone: 12-19-2016 16:20-0400 BP Diastolic 78 mm[Hg] Bogdan JOSHI [facility] Work Phone: 12-19-2016 16:20-0400 BP Systolic 130 mm[Hg] Bogdan JOSHI [facility] Work Phone: 12-19-2016 16:20-0400 Pulse (Heart Rate) 98 /min Bogdan JOSHI [facility] Work Phone: 12-19-2016 16:20-0400 Respiratory Rate 12 /min Bogdan JOSHI [facility] Work Phone: 12-19-2016 16:20-0400 Weight 133.36 kg Bogdan JOSHI [facility] Work Phone: Encounters Encounter Date Encounter Type Care Provider Facility Start: 09-04-2018 End: 09-04-2018 Emergency department patient visit UNKNOWN PROVIDER Facility:[facility] Start: 06-17-2017 End: 06-19-2017 [facility]: 01-17-2006 Documentation procedure Brittany Mccloud MD Work Phone: [facility] Start: 01-17-2006 Historic EMR Kg Mccloud MD Work Phone: [facility] Start: 03-23-2005 Documentation procedure Kyler Li MD Work Phone: [facility] Start: 03-23-2005 Historic EMR Ciara suarez MD Work Phone: [facility] Procedures Date Procedure Procedure Detail Performing Clinician Start: 09-04-2018 Blood count complete auto&auto difrntl wbc UNKNOWN PROVIDER Start: 09-04-2018 DISCHARGE PATIENT UNKNO WN PROVIDER Start: 09-04-2018 Ecg routine ecg w/le ast 12 lds trcg only w/o i&r UNKNOWN PROVIDER Start: 09-04-2018 Hepatitis c antibody UN KNOWN PROVIDER Start: 01-17-2006 SURGICAL PATHOLOGY, CONVERTED Kg Mccluod MD Work Phone: Start: 03-22-2005 SURGICAL PATHOLOGY, CONVERTED Ciara Li MD Work Phone: Plan of Treatment Date Care Activity Detail Author Start: 02-21-2023 Influenza vaccination Influenza Vaccine (#1) [facility] Start: 06-23-2022 Advance Directive Discussion Advance Directive Discussion [facility] Start: 06-23-2022 Depression Assessment Depression Assessment [facility] Start: 09-04-2019 Hepatitis B surface antibody level LDL Cholesterol [facility] Start: 12-19-2016 End: 12-19-2016 Appointment Appointment [facility] Work Phone: Start: 09-02-2011 Pneumococcal Vaccine: 65+ (2 - PCV) Pneumococcal Vaccine: 65+ (2 - PCV) [facility] Start: 06-29-2011 Hemoglobin A1c/Hemoglobin.total in Blood HbA1C [facility] Start: 2011 Bone Density Screening Bone Density Screening [facility] Start: 1996 Shingrix Vaccine (1 of 2) Shingrix Vaccine (1 of 2) [facility] Start: 1965 Urine microalbumin profile DTaP,Tdap,Td Vaccine (1 - Tdap) [facility] Start: 1964 Hepatitis C Screening Hepatitis C Screening [facility] Start: 1956 3 comp foot exam completed Diabetic Foot Exam [facility] Start: 1956 Hepatitis B screening Urine Albumin:Creatinine Ratio [facility] Start: 1956 Hepatitis C antibody, confirmatory test Dilated Retinal Exam [facility] Start: 1946 Covid-19 Vaccine (#1) Covid-19 Vaccine (#1) [facility] Work Phone: Immunizations Immunization Date Immunization Notes Care Provider Anushka thomas 03-12-2012 influenza virus vacc ine, unspecified formulation Ciara Li MD Work Phone: [facility] Payers Date Payer Category Payer Unknown [id number] 1945 Unknown [id number] Social History Date Type Detail Facility Tobacco smoking stat [facility] Tobacco smoking consumption unknown [facility] Start: 01-19-2019 History of Social function [facility] Start: 01-19-2019 Tobacco use panel [facility] Start: 1945 Sex Assigned At Not on file C [facility] Medical Equipment Procedure Code Equipment Code Equipment Origin al Text Equipment Identifier Dates Cement Bone Simp luisana P W/ Tobramycin 1gm - [id number] Start: 03-10-2012 Cement Bone Simp luisana P W/ Tobramycin 1gm - [id number] Start: 09-01-2012 Comp Fem 5 Rt Kn Cr Victorino Trthln - [id number] Start: 03-10-2012 Ins Tib 5 13mm X 3 Cndyl Stab - [id number] Start: 03-10-2012 Ins Tib 5 11mm X 3 Cs Trthln - [id number] Start: 09-01-2012 Comp Pat 10mm 35 mm Asym Trthln - [id number] Start: 03-10-2012 Comp Pat 10mm 35 mm Asym Trthln - [id number] Start: 09-01-2012 Screw Bn 3.5mm 4 0mm Dcp Lc Dcp - [id number] Start: 09-01-2012 History of Past illness Narrative 06-17-2017 Note Date & Type Note Facility documented as of this encounter (statuses as of 03/13/2023) [facility] Summary Purpose Family History No Family History Records FoundNo Family History Records FoundNo Family History Records FoundNo Family History Records FoundNo Family History Records Found Advance Directives Documents on File Type Date Recorded Patient Internal Sales Expl anation Advance Directive(s) 08/27/2012 8:21 PM Advance Directive(s) 08/27/2012 9:37 AM Procedure Findings Note HNO ID: [id number] Author: Ermelinda Dupont Service: Gastroenterology Surgery Author Type: Physician Type: Brief Op Note Filed: 11/06/2018 8:52 AM Note Text: BRIEF OPERATIVE / PROCEDURE NOTE LOG ID: [id number] SURGERY/PROCEDURE DATE: 11/06/2018 INCISION/PROCEDURE START TIME: 8:32 AM INCISION CLOSE/PROCEDURE END TIME: 8:41 AM SURGEON(S)/PROCEDURALIST(S) AND AGED OR DISABLED CARER(S): Surgeon(s) and Role: * Bull Dupont - Primary No Additional Staff SURGERY/PROCEDURE(S): EGD with biopsy gastric pouch ANESTHESIA: Monitored Anesthesia Care FINDINGS: 3-4 cm hiatal hernia ESTIMATED BLOOD LOSS: 0 ml SPECIMENS: gastric pouch COMPLICATIONS: None PRE-OP/PRE-PROCEDURE DIAGNOSIS: GERD POST-OP/POST-PROCEDURE DIAGNOSIS: Gastroesophageal reflux disease, esophagitis presence not specified [K21.9] 3-4 cm hiatal hernia SIGNATURE: Bull Dupont MD, [facility] PATIENT NAME: Adam Anderson DATE: November 06, 2018 TIME: 8:51 AM PAGER/CONTACT #: Additional Source Comments INFORMATION SOURCE (unrecogn ized section and content) DATE CREATED AUTHOR AUTHOR'S ORGANIZ ATION 11/19/2018 [facility] DATE CREATED AUTHOR AUTHOR'S ORGANIZ ATION 11/24/2018 [facility] DATE CREATED AUTHOR AUTHOR'S ORGANIZ ATION 09/07/2019 [facility] DATE CREATED AUTHOR AUTHOR'S ORGANIZ ATION 07/19/2021 [facility] Source Comments (unrecognize d section and content) In the event this informatio n is protected by the Federal Confidentiality of Alcohol and Drug Abuse Patient Records regulations: The Federal rules restrict any use of the information to criminally investigate or prosecute any alcohol or drug abuse patient.[facility] the event this information is protected by the Federal Confidentiality of Alcohol and Drug Abuse Patient Records regulations: The Federal rules restrict any use of the information to criminally investigate or prosecute any alcohol or drug abuse patient.[facility] Care Teams (unrecognized sec tion and content) [...] BE BASED ON THE PRIMARY CLINICAL RECORDS. [facility] 1,2,3 [facility]. provides no warranty or guarantee of the accuracy or completeness of information in this document.
--- OUTSIDE RECORDS SUMMARY | 2023-06-23 16:47 | XMS RPT_ITS | CCD ---
Author Name Unknown Address [address] [place] [address] Organization [facility] Care Team Providers Care Peripheral Equipment Operator Name Role Phone Bogdan Ewing Unavailable [phone] ALETHA KISER Unavailable Unavailable ALETHA KISER Unavailable Unavailable COLLETTE, KHALED Unavailable Unavailable PROVIDER, UNKNOWN Admitting Unavailable KHARI MCADAMS Attending Unavailable Pcp PRODUCTION MINER, No Primary Care Provider Unavailabl e Pcp PRODUCTION MINER, No Primary Care Provider Unavailabl e Pcp PRODUCTION MINER, No Primary Care Provider Unavailabl e Celeste Benedict MD Unavailable Pcp PRODUCTION MINER, No Primary Care Provider Unavailabl e Genna Mccarthy DO Primary Care Provider Jefferson Roman Chi Primary Care Provider Allergies Allergy Classification Reported Allergen(s) Allergy Type Date of Onset Reaction(s) Facility (2 sources) warfarin drug allergy 7 [facility] Work Phone: (3 sources) amoxicillin; Translations: [AMOXICILLIN] Drug Allergy 7 Anaphylaxis [facility] Other [place] [facility] (3 sources) warfarin; Translations: [WARFARIN SODIUM] Drug Allergy 2 Other: See Comments [facility] [place] Repository (1 source) Ampicillin; Translations: [AMPICILLIN] Drug Allergy 9 [facility] Repository Medications Completed/Discontinued Medications Medication Drug Class(es) Dates Sig (Normalized) Sig (Original) acetaminophen 500 mg oral tablet (2 sources) Start: 12-19-2016 ACETAMINOPHEN EXTRA STRENGTH 500 MG TABS ACETAMINOPHEN [id number] Bogdan JOSHI amitriptyline hydrochloride 25 mg oral tablet (2 sources) Tricyclic Antidepressant Start: 12-19-2016 AMITRIPTYLINE HCL 25 MG TABS AMITRIPTYLINE HCL [id number] Bogdan JOSHI AMOXICILLIN-POT CLAVULANATE (2 sources) Penicillin-class Antibacterial Start: 12-19-2016 AUGMENTIN 500-125 MG TABS 1 tablet twice daily AMOXICILLIN-POT CLAVULANATE [id number] Bogdan JOSHI denosumab 60 mg/ml injectable solution (2 sources) RANK Ligand Inhibitor Start: 12-19-2016 PROLIA 60 MG/ML SOLN DENOSUMAB [id number] Bogdan JOSHI DULoxetine 60 mg delayed release oral capsule (2 sources) Serotonin and Norepinephrine Reuptake Inhibitor Start: 12-19-2016 CYMBALTA 60 MG CPEP DULOXETINE HCL [id number] Bogdan JOSHI ergocalciferol 51609 unt oral tablet (2 sources) Provitamin D2 Compound Start: 12-19-2016 VITAMIN D (ERGOCALCIFEROL) 09244 UNIT CAPS ERGOCALCIFEROL [id number] Bogdan JOSHI FLUTICASONE PROPIONATE (2 sources) Corticosteroid Start: 12-19-2016 FLONASE ALLERGY RELIEF 50 MCG/ACT SUSP FLUTICASONE PROPIONATE [id number] Bogdan JOSHI furosemide 40 mg oral tablet (2 sources) Loop Diuretic Start: 12-19-2016 LASIX 40 MG TABS FUROSEMIDE [id number] Bogdan JOSHI gabapentin 300 mg oral tablet (2 sources) Anti-epileptic Agent Start: 12-19-2016 NEURONTIN 300 MG CAPS GABAPENTIN [id number] Bogdan JOSHI vitamin b 12 3 mg sublingual tablet (2 sources) Vitamin B12 B-12 [address] CYANOCOBALAMIN 65177053834 Bogdan JOSHI Problems Active Problems Problem Classification [...] 16:20-0400 Body Temperature 98 [degF] Bogdan JOSHI [facility] Work Phone: 12-19-2016 16:20-0400 BP Diastolic 78 mm[Hg] Bogdan JOSHI [facility] Work Phone: 12-19-2016 16:20-0400 BP Systolic 130 mm[Hg] Bogdan JOSHI [facility] Work Phone: 12-19-2016 16:20-0400 Pulse (Heart Rate) 98 /min Bogdan JOSHI [facility] Work Phone: 12-19-2016 16:20-0400 Respiratory Rate 12 /min Bogdan JOSHI [facility] Work Phone: 12-19-2016 16:20-0400 Weight 133.36 kg Bogdan JOSHI [facility] Work Phone: Encounters Encounter Date Encounter Type Care Provider Facility Start: 09-04-2018 End: 09-04-2018 Emergency department patient visit UNKNOWN PROVIDER Facility:[facility] Start: 06-17-2017 End: 06-19-2017 [facility]: 01-17-2006 Documentation procedure Brittany Mccloud MD Work Phone: [facility] Start: 01-17-2006 Historic EMR Kg Mccloud MD Work Phone: [facility] Start: 03-23-2005 Documentation procedure Kyler Li MD Work Phone: [facility] Start: 03-23-2005 Historic EMR Ciara suarez MD Work Phone: [facility] Procedures Date Procedure Procedure Detail Performing Clinician [...] Start: 02-21-2023 Influenza vaccination Influenza Vaccine (#1) [facility] Start: 06-23-2022 Advance Directive Discussion Advance Directive Discussion [facility] Start: 06-23-2022 Depression Assessment Depression Assessment [facility] Start: 09-04-2019 Hepatitis B surface antibody level LDL Cholesterol [facility] Start: 12-19-2016 End: 12-19-2016 Appointment Appointment [facility] Work Phone: Start: 09-02-2011 Pneumococcal Vaccine: 65+ (2 - PCV) Pneumococcal Vaccine: 65+ (2 - PCV) [facility] Start: 06-29-2011 Hemoglobin A1c/Hemoglobin.total in Blood HbA1C [facility] Start: 2011 Bone Density Screening Bone Density Screening [facility] Start: 1996 Shingrix Vaccine (1 of 2) Shingrix Vaccine (1 of 2) [facility] Start: 1965 Urine microalbumin profile DTaP,Tdap,Td Vaccine (1 - Tdap) [facility] Start: 1964 Hepatitis C Screening Hepatitis C Screening [facility] Start: 1956 3 comp foot exam completed Diabetic Foot Exam [facility] Start: 1956 Hepatitis B screening Urine Albumin:Creatinine Ratio [facility] Start: 1956 Hepatitis C antibody, confirmatory test Dilated Retinal Exam [facility] Start: 1946 Covid-19 Vaccine (#1) Covid-19 Vaccine (#1) [facility] Work Phone: Immunizations Immunization Date Immunization Notes Care Provider Anushka thomas 03-12-2012 influenza virus vacc ine, unspecified formulation Ciara Li MD Work Phone: [facility] Payers Date Payer Category Payer Unknown [id number] 1945 Unknown [id number] Social History Date Type Detail Facility Tobacco smoking stat [facility] Tobacco smoking consumption unknown [facility] Start: 01-19-2019 History of Social function [facility] Start: 01-19-2019 Tobacco use panel [facility] Start: 1945 Sex Assigned At Not on file [facility] Medical Equipment Procedure Code Equipment Code Equipment Origin al Text Equipment Identifier Dates Cement Bone Simp luisana P W/ Tobramycin 1gm - [id number] Start: 03-10-2012 Cement Bone Simp luisana P W/ Tobramycin 1gm - [id number] Start: 09-01-2012 Comp Fem 5 Rt Kn Cr Victorino Trthln - [id number] Start: 03-10-2012 Ins Tib 5 13mm X 3 Cndyl Stab - [id number] Start: 03-10-2012 Ins Tib 5 11mm X 3 Cs Trthln - [id number] Start: 09-01-2012 Comp Pat 10mm 35 mm Asym Trthln - [id number] Start: 03-10-2012 Comp Pat 10mm 35 mm Asym Trthln - [id number] Start: 09-01-2012 Screw Bn 3.5mm 4 0mm Dcp Lc Dcp - [id number] Start: 09-01-2012 History of Past illness Narrative 06-17-2017 Note Date & Type Note Facility documented as of this encounter (statuses as of 03/13/2023) [facility] Summary Purpose Family History No Family History Records FoundNo Family History Records FoundNo Family History Records FoundNo Family History Records FoundNo Family History Records Found Advance Directives Documents on File Type Date Recorded Patient Retail Specialist Expl anation Advance Directive(s) 08/27/2012 8:21 PM Advance Directive(s) 08/27/2012 9:37 AM Procedure Findings Note HNO ID: [id number] Author: Ermelinda Dupont Service: Gastroenterology Surgery Author Type: Physician Type: Brief Op Note Filed: 11/06/2018 8:52 AM Note Text: BRIEF OPERATIVE / PROCEDURE NOTE LOG ID: [id number] SURGERY/PROCEDURE DATE: 11/06/2018 INCISION/PROCEDURE START TIME: 8:32 AM INCISION CLOSE/PROCEDURE END TIME: 8:41 AM SURGEON(S)/PROCEDURALIST(S) AND SUPERVISOR PIPE MANUFACTURE(S): Surgeon(s) and Role: * Bull Dupont - Primary No Additional Staff SURGERY/PROCEDURE(S): EGD with biopsy gastric pouch ANESTHESIA: Monitored Anesthesia Care FINDINGS: 3-4 cm hiatal hernia ESTIMATED BLOOD LOSS: 0 ml SPECIMENS: gastric pouch COMPLICATIONS: None PRE-OP/PRE-PROCEDURE DIAGNOSIS: GERD POST-OP/POST-PROCEDURE DIAGNOSIS: Gastroesophageal reflux disease, esophagitis presence not specified [K21.9] 3-4 cm hiatal hernia SIGNATURE: Bull Dupont MD, [facility] PATIENT NAME: Adam Anderson DATE: November 06, 2018 TIME: 8:51 AM PAGER/CONTACT #: Additional Source Comments INFORMATION SOURCE (unrecogn ized section and content) DATE CREATED AUTHOR AUTHOR'S ORGANIZ ATION 11/19/2018 [facility] DATE CREATED AUTHOR AUTHOR'S ORGANIZ ATION 11/24/2018 [facility] DATE CREATED AUTHOR AUTHOR'S ORGANIZ ATION 09/07/2019 [facility] DATE CREATED AUTHOR AUTHOR'S ORGANIZ ATION 07/19/2021 [facility] Source Comments (unrecognize d section and content) In the event this informatio n is protected by the Federal Confidentiality of Alcohol and Drug Abuse Patient Records regulations: The Federal rules restrict any use of the information to criminally investigate or prosecute any alcohol or drug abuse patient.[facility] the event this information is protected by the Federal Confidentiality of Alcohol and Drug Abuse Patient Records regulations: The Federal rules restrict any use of the information to criminally investigate or prosecute any alcohol or drug abuse patient.[facility] Care Teams (unrecognized sec tion and [...] BE BASED ON THE PRIMARY CLINICAL RECORDS. [facility] [employer] [facility]. provides no warranty or guarantee of the accuracy or completeness of information in this document.
[2023-06-23] MEDS: Azithromycin 500 MG in Dextrose 5%-Water (250mL Bag) 250 ML 250 MG IV (17:11)
[2023-06-23] MEDS: levoFLOXacin IV 750 MG/150 ML BAG 100 MG IV (17:20)
[2023-06-23] MEDS: SimETHICONE 80 MG Chewable Tablet PO (17:22)
[2023-06-23 18:11] LABS: M R Staph aureus DNA By PCR Negative (Negative); Probe Check PASS; Specimen Processing Control PASS
[2023-06-23] MEDS: Famotidine 20 MG Tablet 40 MG PO (20:50)
[2023-06-23] MEDS: Primidone 50 MG Tablet 100 MG PO (20:50)
[2023-06-23] MEDS: Vibegron 75 MG TABLET PO (20:50)
[2023-06-23] MEDS: APIXABAN 5 MG TABLET PO (20:51)
[2023-06-23] MEDS: 0.9% Saline Lock 10 ML Syringe IV (20:51)
[2023-06-23] MEDS: Pravastatin 40 MG Tablet PO (20:51)
[2023-06-23] MEDS: Divalproex Sodium 250 MG Tablet 500 MG PO (20:51)
[2023-06-23] MEDS: Mag Hydrox/Al Hydrox/Simeth 30 ML UDC PO (22:17)
[2023-06-24] VITALS (8 sets, daily range): BP systolic 108–136; BP diastolic 48–106; PULSE 67–96; RESP 18–28; TEMP 36.7–39.4; O2SAT 91–97
[2023-06-24] MEDS: Acetaminophen 325 MG Tablet 650 MG PO ×4 (05:23→23:25)
[2023-06-24] MEDS: Primidone 50 MG Tablet 100 MG PO ×3 (05:23→23:26)
[2023-06-24] MEDS: 0.9% Saline Lock 10 ML Syringe IV ×3 (05:35→23:58)
[2023-06-24] MEDS: Mag Hydrox/Al Hydrox/Simeth 30 ML UDC PO (05:41)
[2023-06-24 06:48] LABS: Absolute Lymphocyte Count 0.66 X10^3/uL (0.83-4.51); Absolute Neutrophil Count 6.4 X10^3/uL (2.0-7.7); Basophil# 0.05 X10^3/uL; Basophil% 0.6 % (0-1); Eosinophil# 0.01 X10^3/uL; Eosinophils% 0.1 % (0-5); Hematocrit 34.1 % (37-47); Hemoglobin 10.7 g/dL (12.0-15.0); Lymphocyte # 0.66 X10^3/ul (0.83-4.51); Lymphocyte % 8.4 % (19-41); Mean Corp Hgb Conc 31.4 g/dL (32-36); Mean Corpuscular Hgb 33.3 pg (27.0-32.0); Mean Corpuscular Volume 106.2 fL (81-99); Mean Platelet Vol. 9.4 fl (6.2-12.0); Monocyte# 0.68 X10^3/uL; Monocyte% 8.7 % (0-10); NRBC Flagged by Analyzer 0 % (0-5); Neutrophil # 6.38 X10^3/uL (2.7-7.7); Neutrophil % 81.7 % (47-70); Platelet Count 158 K/mm3 (150-450); RBC Distribution Width SD 50.5 fl (35.1-43.9); Red Blood Count 3.21 M/mm3 (4.2-5.4); White Blood Count 7.8 K/mm3 (4.4-11.0)
[2023-06-24 07:18] LABS: International Normalized Ratio 1.3; Prothrombin Time (Protime)PT. 16.5 SECONDS (11.7-14.9)
[2023-06-24 07:19] LABS: Lactic Acid 0.7 mmol/L (0.4-1.9)
[2023-06-24 07:28] LABS: ALB/GLOB Ratio 0.9 RATIO (0.9-2.4); AST(SGOT) 37 U/L (15-37); Alanine Aminotransfer ALT/SGPT 55 U/L (13-56); Albumin, Serum 2.5 g/dL (3.2-5.0); Alkaline Phosphatase 95 U/L (45-117); Anion Gap 5 (5-15); BUN 21 mg/dL (7-18); BUN/Creat Ratio 25.5 RATIO (10-20); Calcium,Total 7.8 mg/dL (8.5-10.1); Chloride 109 mmol/L (98-107); Creatinine, Serum 0.82 mg/dL (0.55-1.02); EST Glomerular Filtration Rate 72 mL/min (>60); Est Glom Filt Rate - Afr Amer 87 mL/min (>60); Globulin 2.8 g/dL (2.2-4.2); Glucose 136 mg/dL (74-106); Phosphorus 2.3 mg/dL (2.5-4.9); Potassium 3.9 mmol/L (3.5-5.1); Protein, Total 5.3 g/dL (6.4-8.2); Sodium Level 137 mmol/L (136-145)
--- NOTE | 2023-06-24 08:16 | PCM.PN.HOSP ---
Reason for Visit Reason for Visit: Diagnoses Pneumonia, unspecified organism (06/23/23) Subjective Subjective Mrs. Anderson is a 78-year-old white female who presented to the emergency department at [facility] from her assisted living facility after she sustained a fall. Evidently the nursing staff there was noted that she slid right off the side of her bed. Patient reported that this was secondary to weakness. Per EMS report she was noted to be hypoxic at 80% on room air and requiring some oxygen which was new for her. At baseline she is on no oxygen. She had no trauma related to her fall and the patient did know she was short of breath and have been complaining of cough. She had no known sick contacts. Vital signs on presentation showed temperature of 98.3, heart rate 105, initial blood pressure was 155/87, pulse ox was 91% on 2 L nasal cannula but improved to between 94 and 96% on 2 L nasal cannula has since been weaned to room air with a sat of 92%. Her CBC was overall unremarkable but she did have a left shift with 82.3% neutrophilia and a monocytosis at 10.2%. Her chemistry panel showed normal electrolytes and renal function with a glucose of 136. Her initial troponin was 26 and a BNP was 133.9. Her chest x-ray and EKG were unremarkable for any changes from previous. A CTA of her chest was performed to rule out PE despite her being on Eliquis given the fact that we were unable to find any other etiology for her hypoxia. This showed normal CT of the chest without PE or arterial dissection however on my review the lung parenchyma seemed to have some patchy groundglass changes diffusely. She was treated with antibiotics admitted to the medical floor where she was maintained on antibiotics. COVID and flu as well as RSV were all negative. Urine culture is pending as her UA was suggestive of infection and patient has history of urinary tract infections. Patient states she is feeling okay. Still feels very weak. Had a loose bowel movement this morning but that has not been typical at home. She has been following with outpatient urology. We did discuss that her UA is consistent with infection and cultures are pending. This may be related for her weakness and she states that typically when she gets UTIs she does get quite weak. Objective Data Objective Data Vital Signs: Vital Signs Temp Pulse Resp BP Pulse Ox O2 Del Method O2 Flow Rate 98.2 F 85 26 H 112/48 L 92 Room Air 2 06/24/23 07:31 06/24/23 07:31 06/24/23 07:31 06/24/23 07:31 06/24/23 07:06/24/23 07:31 06/23/23 17:00 Oxygen Flow Rate (L/min) 2 Oxygen Delivery Method Room Air Weight: 129 kg Body Mass Index (BMI) 47.3 Intake & Output: Intake and Output for Last 24 Hours 06/22/23 06/23/23 06/24/23 23:59 23:59 23:59 Intake Total 1495 / 1495 Output Total 600 / 600 600 / 600 Balance 895 / 895 -600 / -600 Lab / Micro Data 06/24/23 06:39 06/24/23 06:39 Labs: Laboratory Results - last 24 hr 06/23/23 11:00: Urine Color Yellow, Urine Clarity Sl. Cloudy, Urine pH 6.5, Ur Specific [place] 1.010, Urine Protein 30 H, Urine Glucose (UA) Normal, Urine Ketones Negative, Urine Occult Blood 50 H, Urine Nitrite Positive H, Urine Bilirubin Negative, Urine Urobilinogen Normal, Ur Leukocyte Esterase 100 H, Urine RBC 0 SEEN, Urine WBC 10-25 SEEN, Ur Squamous Epith Cells 0-5 SEEN, Urine Bacteria 3+, Urine Mucus 0 SEEN 06/23/23 11:10: WBC 7.3, RBC 3.79 L, Hgb 12.2, Hct 39.4, MCV 104.0 H, MCH 32.2 H, MCHC 31.0 L, RDW Std Deviation 49.9 H, RDW Coeff of Chani 13.0, Plt Count 168, MPV 9.5, Immature Gran % (Auto) 0.400, Neut % (Auto) 82.3 H, Lymph % (Auto) 6.1 L, Scurry % (Auto) 10.2 H, Eos % (Auto) 0.3, Baso % (Auto) 0.7, Absolute Neuts (auto) 6.0, Absolute Lymphs (auto) 0.44 L, Nucleated RBC % 0, Differential Comment SCANNED, Sodium 139, Potassium 4.2, Chloride 110 H, Carbon Dioxide 26.0, Anion Gap 3 L, BUN 28 H, Creatinine 0.92, Estim Creat Clear Calc 46.08, Est GFR (MDRD) Af Amer 76, Est GFR (MDRD) Non-Af 63, BUN/Creatinine Ratio 30.5 H, Glucose 132 H, Calcium 8.2 L, Troponin I High Sens 26, B-Natriuretic Peptide 133.9 H 06/23/23 16:15: MRSA (PCR) Negative 06/24/23 06:39: WBC 7.8, RBC 3.21 L, Hgb 10.7 L, Hct 34.1 L, MCV 106.2 H, MCH 33.3 H, MCHC 31.4 L, RDW Std Deviation 50.5 H, RDW Coeff of Chani 13.0, Plt Count 158, MPV 9.4, Immature Gran % (Auto) 0.500, Neut % (Auto) 81.7 H, Lymph % (Auto) 8.4 L, Scurry % (Auto) 8.7, Eos % (Auto) 0.1, Baso % (Auto) 0.6, Absolute Neuts (auto) 6.4, Absolute Lymphs (auto) 0.66 L, Nucleated RBC % 0, PT 16.5 H, INR 1.3, Sodium 137, Potassium 3.9, Chloride 109 H, Carbon Dioxide 23.0, Anion Gap 5, BUN 21 H, Creatinine 0.82, Estim Creat Clear Calc 51.70, Est GFR (MDRD) Af Amer 87, Est GFR (MDRD) Non-Af 72, BUN/Creatinine Ratio 25.5 H, Glucose 136 H, Lactic Acid 0.7, Calcium 7.8 L, Phosphorus 2.3 L, Magnesium 2.0, Total Bilirubin 0.80, Direct Bilirubin 0.30, AST 37, ALT 55, Alkaline Phosphatase 95, Total Protein 5.3 L, Albumin 2.5 L, Globulin 2.8, Albumin/Globulin Ratio 0.9, TSH 2.40 Micro: Microbiology 06/23/23 11:13 Nasal Secretion SARS-CoV-2 Antigen (Rapid) - Final 06/23/23 11:13 Mucosa - Nose Influenza & RSV (PCR) - Final Radiography Diagnostic Testing: Radiology Impression Chest X-Ray 06/23/23 11:11 IMPRESSION: Stable chest with no acute or active cardiopulmonary disease. Electronically Signed: Juan Jernigan MD at 11:26 EST , Chest CTA 06/23/23 12:26 IMPRESSION: Normal CTA chest examination, without a demonstrated pulmonary embolism or arterial dissection. Electronically Signed: Conner Quintana MD at 14:22 EST Reading Location ID and State: [facility] [place] Tel , Service support , Physical Exam Const alert, oriented x3, no apparent distress and well nourished; Negative for average body habitus or healthy appearing Constitutional Narrative: Morbidly obese, white female, lying in bed flat, psychiatric nursing aide at bedside getting her cleaned up, appears comfortable and nontoxic, on room air, patient does appear chronically ill and older than stated age HEENT head/scalp atraumatic and moist oral mucous membranes HEENT Narrative: Dentures in place, Mallampati is 2-3, no thrush Head and Scalp: normocephalic Eyes PERRL, EOMs intact bilaterally and conjunctivae normal Eyes Narrative: No scleral icterus Neck no lymphadenopathy and supple Neck Narrative: Trachea midline, no thyroid enlargement Resp normal respiratory effort, no retractions, no use of accessory muscles and clear to auscultation bilaterally Resp Narrative: Diminished diffusely but clear likely related to body habitus Auscultation: Negative for rales, rhonchi or wheezes Cardio regular rate, regular rhythm, S1 normal heart sound, S2 normal heart sound, no murmurs, no rub, no gallops and no clicks GI normal to inspection, nondistended, normoactive bowel sounds, soft to palpation and non-tender GI Narrative: Large protuberant abdomen Extremity Extremity Narrative: Trace bilateral lower extremity edema, no cyanosis or clubbing Skin no rashes or lesions noted, no wounds, skin turgor normal, no jaundice, no petechiae and no mottling Neuro oriented x3, moves all extremities and no focal motor deficits Neuro Narrative: Significant generalized weakness noted with proximal musculature is weaker than distal Speech: speech normal Psych affect normal Psych Narrative: Eye contact is good, patient is mood seems stable and interacts appropriately Assessment & Plan Assessment/Plan (1) Hypoxia: (2) CHF (congestive heart failure): (3) UTI (urinary tract infection): (4) Generalized weakness: PLAN: Plan Acute hypoxia -Etiology is unclear -Patient does not meet criteria and did not meet criteria for respiratory failure at the time of presentation -Sats were evidently in the 80s on room air and patient is not O2 dependent at baseline -Patient is currently 92% on room air -Check room air ABG and assess for AA gradient to rule out obesity hypoventilation syndrome with a BMI of 47.3 -BNP was elevated compared to previous at greater than 100 -Give Lasix 40 mg IV push x 1 dose -CTA does show some groundglass changes which could be some heart failure but no infiltrate noted -No PE noted and patient is chronically anticoagulated with Eliquis -Continue antibiotics for now but transition to oral Levaquin until cultures and urine antigens result -No threshold to discontinue antibiotics as this does not appear to be infectious -check echocardiogram -Aggressive I-S and Acapella -As needed albuterol -Patient will need ambulatory pulse ox prior to discharge Suspected UTI -Patient does have history of UTI -Will discontinue Levaquin and transition to ceftriaxone 2 g as previous urine culture from early last month was resistant to quinolones -Cultures are pending Debility/generalized weakness -PT/OT consultation -Presents from assisted living -Social work/case management consultation Chronic macrocytic anemia -Continue home iron supplementation -Slight drop however likely dilutional with fluids given the ER -Will monitor -No signs of acute bleeding History of DVT/PE -Patient is currently on Eliquis 5 mg p.o. twice daily -Also has IVC filter -Clinically stable -CTA negative for PE Hyperlipidemia -Continue statin Anxiety/depression -Continue duloxetine -Continue Wellbutrin -Continue Depakote Urinary incontinence/overactive bladder -Continue oxybutynin Tremors -Continue home primidone GERD -Continue PPI -continue H2 danika Osteoarthritis -Continue home pain medication DVT prophylaxis -Patient is fully anticoagulated with Eliquis CODE STATUS -DNR CCA with no intubation Charges/Coding Visit Charges Inpatient E&M: 47550 Subs Hosp L2
--- NOTE | 2023-06-24 08:22 | ECHOD_ITS ---
Reason For Study: DYSPNEA/SOB Procedure This was a 2D Doppler, Color Flow transthoracic echocardiogram. The study was technically difficult. Exam performed portable in patient room. Left Ventricle Normal size and thickness. The left ventricular ejection fraction is 65 %. Normal diastology for age. Right Ventricle Normal right ventricle. Atria The left atrium is severely enlarged. Normal right atrium. Mitral Valve There is Severe focal posterior mitral annular calcification. Mild (1+) mitral valve insufficiency. Tricuspid Valve Trivial tricuspid valve insufficiency. Right ventricular systolic pressure estimated to be 35 mmHg. Aortic Valve Aortic sclerosis, no stenosis. Pulmonic Valve The pulmonic valve is not well visualized. Great Vessels Normal sized aortic root. Pericardium/Pleural No pericardial effusion. MMode/2D Measurements & Calculations LVIDd: 4.4 cm IVSd: 1.0 cm Ao root diam: 2.9 cm LVIDs: 3.0 cm LVPWd: 0.88 cm RVDd: 4.1 cm FS: 31.2 % LAV(MOD-bp): 65.6 ml LVAd ap4: 30.6 cm2 SV(MOD-sp4): 65.3 ml LAV(MOD-bp) Indexed: 28.6 ml/m2 LVLd ap4: 7.5 cm LAV(MOD-sp2): 64.6 ml EDV(MOD-sp4): 101.4 ml LAV(MOD-sp4): 65.0 ml EDV(sp4-el): 105.5 ml LVAs ap4: 17.3 cm2 LVLs ap4: 6.9 cm ESV(MOD-sp4): 36.2 ml ESV(sp4-el): 36.8 ml EF(MOD-sp4): 64.3 % EF(sp4-el): 65.1 % SV(sp4-el): 68.7 ml LA A4 area: 21.5 cm2 LA dimension(2D): 3.9 cm RA A4 area: 17.2 cm2 Time Measurements MV dec time: 0.20 sec Doppler Measurements & Calculations MV E max juan: 137.6 cm/sec Lat Peak E' Juan: 9.4 cm/sec Med Peak E' Juan: 8.3 cm/sec MV A max ujan: 137.6 cm/sec E/E' lat: 14.7 E/E' med: 16.5 MV E/A: 1.0 MV V2 max: 154.3 cm/sec Ao V2 max: 195.7 cm/sec LV V1 max: 138.8 cm/sec MV max P.5 mmHg Ao max P.3 mmHg LV V1 max P.7 mmHg MV V2 mean: 116.4 cm/sec MV mean P.9 mmHg MV V2 VTI: 39.9 cm PA V2 max: 143.6 cm/sec TR max juan: 261.1 cm/sec TR max P.3 mmHg ECHO/Echo Complete Interpretation Summary The study was technically difficult. The left ventricular ejection fraction is 65 %. The left atrium is severely enlarged. There is Severe focal posterior mitral annular calcification. Mild (1+) mitral valve insufficiency. Aortic sclerosis, no stenosis. Ordering Physician: Abi Sierra Referring Physician: EDGAR CLARK Performed By: Carolin Fairchild RDCS
[2023-06-24] MEDS: SimETHICONE 80 MG Chewable Tablet PO ×3 (09:26→17:06)
[2023-06-24] MEDS: Divalproex Sodium 250 MG Tablet 500 MG PO ×2 (09:26→23:27)
[2023-06-24] MEDS: Ferrous Sulfate 325 MG Tablet PO (09:26)
[2023-06-24] MEDS: DULoxetine Hcl 60 MG Capsule PO (09:26)
[2023-06-24] MEDS: APIXABAN 5 MG TABLET PO ×2 (09:27→23:27)
[2023-06-24] MEDS: Fluticasone 0.05% 1 SPRAY NASAL.SRY 2 SPRAY NASAL (09:27)
[2023-06-24] MEDS: Tolterodine Tartrate 2 MG CAP.SA PO (09:27)
[2023-06-24] MEDS: Pantoprazole Sodium 40 MG Tablet PO (09:28)
[2023-06-24] MEDS: Cholecalciferol (VIT D3) 25 MCG TABLET (1,000 UNITS) PO (09:29)
[2023-06-24] MEDS: Ascorbic Acid 500 MG Tablet PO (09:29)
[2023-06-24] MEDS: buPROPion (XL) 150 MG TABLET.XL PO (09:29)
[2023-06-24] MEDS: Ceftriaxone 2 GM in 0.9% Normal Saline (50mL MB+) 50 ML IV (09:36)
[2023-06-24] MEDS: Furosemide 40 MG/4 ML Vial IV ×2 (09:36→17:06)
[2023-06-24 10:01] LABS: Allen Test Positive; Base Excess -3 mmol/L (-2 to +2); Bicarbonate 21.4 mmol/L (22-26); Blood Gas Specimen Type ART; Mode Not entered; O2 Delivery Device Room Air; PO2 66 mmHG (75-100); SITE L Radial; SO2 94 % (95-99); Total Carbon Dioxide 22 mmol/L; pCO2 30.6 mmHg (35-45); pH 7.45 (7.35-7.45)
--- NOTE | 2023-06-24 11:17 | CASEMGMT ---
Addendum entered by Jaci Madison 06/25/23 09:26: Per Wallace at [facility], there are no concerns with patient returning. Therapy is available if she should need it. SW updated. Jaci Madison, Discharge Planning Asst. Original Note: Discharge Planning Updates faxed to [facility] with note that patient will need PT/OT. Jaci Madison, Discharge Planning Asst.
--- NOTE | 2023-06-24 15:16 | CASEMGMT ---
Advanced Directive Validation Power of Rn Orthopedic for Health Care (and also a separate general power of business support administrator) scanned into the patient's medical record. Living Will - Upon admission patient indicated has not done a Living Will. Looked through patient's POAHC and patient has also indicated in the POAHC to not have done a Living will. Based on patient's responses at admission and on the POAHC, it has been validated that patient does not have a Living Will. First [facility] - [place], Second [facility] - [place], -JUHI Loya
--- NOTE | 2023-06-24 18:47 | CASEMGMT ---
Social work This marketing underwriter noted that patient is from [facility]. Met with patient and patient's daughter Sandra in room. Introduced to self and social work role. Patient confirms wish to return to [facility]. Let patient know that director athletic at the [facility] will review patient's clinical information and let [facility] know whether it is felt patient's needs can be met at time of discharge at the [facility], or whether a higher level of care such as a senior care facility would be needed. Patient expressed understanding. Explored what patient's preferences would be for senior care facility, should this be needed. Daughter spoke up and expressed would not want patient to go to [facility], but would be interested in [facility]. Let patient and daughter know that can produce a list of choices should senior care facility be needed. Clinical updates have been sent to [facility] by discharge business planning manager. Plan: [facility]. Social work does remain available in case additional referrals, such as senior care facility are indicated. -DANIELA Loya, [employer] TODDLER TEACHER *This note was generated with Moglue dictation software. It may contain incorrect words, spelling, and punctuation that were not noted in review of the chart prior to signing*
[2023-06-24] MEDS: Pravastatin 40 MG Tablet PO (23:25)
[2023-06-24] MEDS: Famotidine 20 MG Tablet 40 MG PO (23:25)
[2023-06-24] MEDS: Vibegron 75 MG TABLET PO (23:27)
[2023-06-25 02:00] VITALS: RESP 26; TEMP 36.8
[2023-06-25 05:51] VITALS: BP 127/68; PULSE 78; RESP 28; TEMP 37.1; O2SAT 98
[2023-06-25] MEDS: Primidone 50 MG Tablet 100 MG PO ×3 (06:02→21:08)
[2023-06-25] MEDS: Menthol/Lanolin/Calamine/Znox 113 GM Tube 1 APPLIC TOPICAL ×2 (06:05→21:07)
[2023-06-25] MEDS: 0.9% Saline Lock 10 ML Syringe IV ×2 (06:05→09:39)
[2023-06-25] MEDS: Miconazole Nitrate 43 GM Bottle 1 APPLIC TOPICAL ×2 (06:06→21:07)
[2023-06-25] MEDS: Acetaminophen 325 MG Tablet 650 MG PO ×3 (06:29→21:06)
[2023-06-25 07:14] VITALS: O2SAT 93
[2023-06-25 07:47] LABS: Absolute Lymphocyte Count 0.71 X10^3/uL (0.83-4.51); Absolute Neutrophil Count 3.8 X10^3/uL (2.0-7.7); Basophil# 0.03 X10^3/uL; Basophil% 0.6 % (0-1); Eosinophil# 0.06 X10^3/uL; Eosinophils% 1.1 % (0-5); Hematocrit 37.8 % (37-47); Hemoglobin 11.6 g/dL (12.0-15.0); Lymphocyte # 0.71 X10^3/ul (0.83-4.51); Lymphocyte % 13.6 % (19-41); Mean Corp Hgb Conc 30.7 g/dL (32-36); Mean Corpuscular Hgb 32.2 pg (27.0-32.0); Mean Platelet Vol. 9.8 fl (6.2-12.0); Monocyte% 11.5 % (0-10); NRBC Flagged by Analyzer 0 % (0-5); Neutrophil % 72.6 % (47-70); Platelet Count 150 K/mm3 (150-450); RBC Distribution Width CV 12.9 % (11.6-14.6); RBC Distribution Width SD 50.1 fl (35.1-43.9); White Blood Count 5.2 K/mm3 (4.4-11.0)
[2023-06-25 08:22] VITALS: BP 108/51; PULSE 81; RESP 20; TEMP 37.2; O2SAT 92
[2023-06-25 08:31] LABS: Anion Gap 5 (5-15); BUN 18 mg/dL (7-18); BUN/Creat Ratio 22.5 RATIO (10-20); Calcium,Total 8.4 mg/dL (8.5-10.1); Chloride 104 mmol/L (98-107); EST Glomerular Filtration Rate 74 mL/min (>60); Est Glom Filt Rate - Afr Amer 89 mL/min (>60); Estimated Creatinine Clearance 52.99 ml/min; Glucose 101 mg/dL (74-106); Magnesium 2.2 mg/dL (1.6-2.6); Phosphorus 2.4 mg/dL (2.5-4.9); Potassium 4.1 mmol/L (3.5-5.1); Sodium Level 135 mmol/L (136-145)
[2023-06-25] MEDS: Pantoprazole Sodium 40 MG Tablet PO (09:29)
[2023-06-25] MEDS: Ferrous Sulfate 325 MG Tablet PO (09:30)
[2023-06-25] MEDS: SimETHICONE 80 MG Chewable Tablet PO ×3 (09:30→17:12)
[2023-06-25] MEDS: Divalproex Sodium 250 MG Tablet 500 MG PO ×2 (09:30→21:10)
[2023-06-25] MEDS: DULoxetine Hcl 60 MG Capsule PO (09:30)
[2023-06-25] MEDS: APIXABAN 5 MG TABLET PO ×2 (09:31→21:08)
[2023-06-25] MEDS: Furosemide 40 MG/4 ML Vial IV ×2 (09:31→17:12)
[2023-06-25] MEDS: Fluticasone 0.05% 1 SPRAY NASAL.SRY 2 SPRAY NASAL (09:31)
[2023-06-25] MEDS: Tolterodine Tartrate 2 MG CAP.SA PO (09:31)
[2023-06-25] MEDS: Cholecalciferol (VIT D3) 25 MCG TABLET (1,000 UNITS) PO (09:32)
[2023-06-25] MEDS: Ascorbic Acid 500 MG Tablet PO (09:32)
[2023-06-25] MEDS: buPROPion (XL) 150 MG TABLET.XL PO (09:33)
[2023-06-25] MEDS: Ceftriaxone 2 GM in 0.9% Normal Saline (50mL MB+) 50 ML IV (09:39)
--- NOTE | 2023-06-25 12:17 | PCM.PN.HOSP ---
Reason for Visit Reason for Visit: Fatigue/shortness of breath/generalized weakness Subjective Subjective Patient is doing much better today. She was standby assist for transfers and ambulation. She states she is feeling overall much better but still little bit weak and feels like she needs 1 more day before returning back to assisted living environment. I am still waiting on her culture results however the preliminary shows gram-negative jan. She has had resistance pattern to the past. She states she saw Dr. Villavicencio from urology about a month ago. Objective Data Objective Data Vital Signs: Vital Signs Temp Pulse Resp BP Pulse Ox O2 Del Method O2 Flow Rate 98.9 F 81 20 H 108/51 L 92 Room Air 2 06/25/23 08:22 06/25/23 08:22 06/25/23 08:22 06/25/23 08:22 06/25/23 08:22 06/25/23 08:22 06/23/23 17:00 Oxygen Flow Rate (L/min) 2 Oxygen Delivery Method Room Air Weight: 129 kg Body Mass Index (BMI) 47.3 Intake & Output: Intake and Output for Last 24 Hours 06/23/23 06/24/23 06/25/23 23:59 23:59 23:59 Intake Total 1495 / 1495 50 / 50 50 / 50 Output Total 600 / 600 2400 / 2900 1400 / 1400 Balance 895 / 895 -2350 / -2850 -1350 / -1350 Lab / Micro Data 06/25/23 07:02 06/25/23 07:02 Labs: Laboratory Results - last 24 hr 06/25/23 07:02: WBC 5.2, RBC 3.60 L, Hgb 11.6 L, Hct 37.8, MCV 105.0 H, MCH 32.2 H, MCHC 30.7 L, RDW Std Deviation 50.1 H, RDW Coeff of Chani 12.9, Plt Count 150, MPV 9.8, Immature Gran % (Auto) 0.600, Neut % (Auto) 72.6 H, Lymph % (Auto) 13.6 L, [place] % (Auto) 11.5 H, Eos % (Auto) 1.1, Baso % (Auto) 0.6, Absolute Neuts (auto) 3.8, Absolute Lymphs (auto) 0.71 L, Nucleated RBC % 0, Sodium 135 L, Potassium 4.1, Chloride 104, Carbon Dioxide 26.0, Anion Gap 5, BUN 18, Creatinine 0.80, Estim Creat Clear Calc 52.99, Est GFR (MDRD) Af Amer 89, Est GFR (MDRD) Non-Af 74, BUN/Creatinine Ratio 22.5 H, Glucose 101, Calcium 8.4 L, Phosphorus 2.4 L, Magnesium 2.2 Micro: Microbiology 06/23/23 11:00 Urine Catheter - Catheter Urine Culture - Preliminary Gram negative jan 06/24/23 09:38 Mucosa - Nasopharyngeal Respiratory Panel (PCR) - Final 06/23/23 11:00 Urine Catheter - Catheter Legionella Antigen - Final 06/23/23 11:00 Urine Catheter - Catheter Streptococcus pneumoniae Antigen (M - Final 06/23/23 11:13 Nasal Secretion SARS-CoV-2 Antigen (Rapid) - Final 06/23/23 11:13 Mucosa - Nose Influenza & RSV (PCR) - Final Radiography Diagnostic Testing: Radiology Impression Echocardiogram 06/24/23 08:22 Interpretation Summary The study was technically difficult. The left ventricular ejection fraction is 65 %. The left atrium is severely enlarged. There is Severe focal posterior mitral annular calcification. Mild (1+) mitral valve insufficiency. Aortic sclerosis, no stenosis. Ordering Physician: Abi Sierra Referring Physician: EDGAR CLARK Performed By: Carolin Fairchild RDCS Physical Exam Const alert, oriented x3, no apparent distress and well nourished; Negative for average body habitus or healthy appearing Constitutional Narrative: Morbidly obese, white female, sitting up in a chair at the bedside watching television, appears comfortable and nontoxic, on room air, patient does appear chronically ill and older than stated age HEENT head/scalp atraumatic and moist oral mucous membranes HEENT Narrative: Mallampati 3, dentures in place, no thrush Resp normal respiratory effort, no retractions, no use of accessory muscles and clear to auscultation bilaterally Resp Narrative: Diminished diffusely but clear likely related to body habitus Auscultation: Negative for rales, rhonchi or wheezes Cardio regular rate, regular rhythm, S1 normal heart sound, S2 normal heart sound, no murmurs, no rub, no gallops and no clicks GI normal to inspection, nondistended, normoactive bowel sounds, soft to palpation and non-tender GI Narrative: Large protuberant abdomen Extremity no clubbing, cyanosis or edema Neuro oriented x3, moves all extremities and no focal motor deficits Neuro Narrative: Decreasing generalized weakness noted but proximal musculature is weaker than distal Speech: speech normal Psych affect normal Psych Narrative: Eye contact is good, patient is mood seems stable and interacts appropriately Assessment & Plan Assessment/Plan (1) Hypoxia: (2) CHF (congestive heart failure): (3) UTI (urinary tract infection): (4) Generalized weakness: PLAN: Plan Acute hypoxia secondary to acute on chronic HFpEF -Sats were evidently in the 80s on room air and patient is not O2 dependent at baseline -Patient remains with stable sats on room air -Patient did have an elevated AA gradient likely due to heart failure -BNP was elevated compared to previous at greater than 100 -Cont IV lasix -CTA does show some groundglass changes which could be some heart failure but no infiltrate noted -No PE noted and patient is chronically anticoagulated with Eliquis -Continue antibiotics for now but transition to oral Levaquin until cultures and urine antigens result -No threshold to discontinue antibiotics as this does not appear to be infectious -ECHO showed EF 65% with mild pulmonary hypertension at 35 mmHg and normal diastology -Aggressive I-S and Acapella -As needed albuterol -Patient will need ambulatory pulse ox prior to discharge Gram-negative UTI -Patient does have history of UTI -Continue ceftriaxone -Finalized identification and sensitivities are pending Debility/generalized weakness -PT/OT following and patient is doing much better -Presents from assisted living with plans to return to assisted living tomorrow if she remains stable -Social work/case management consultation Chronic macrocytic anemia -Continue home iron supplementation -Now back to baseline -Will monitor -No signs of acute bleeding History of DVT/PE -Patient is currently on Eliquis 5 mg p.o. twice daily -Also has IVC filter -Clinically stable -CTA negative for PE Hyperlipidemia -Continue statin Anxiety/depression -Continue duloxetine -Continue Wellbutrin -Continue Depakote Urinary incontinence/overactive bladder -Continue oxybutynin Tremors -Continue home primidone GERD -Continue PPI -continue H2 danika Osteoarthritis -Continue home pain medication DVT prophylaxis -Patient is fully anticoagulated with Eliquis CODE STATUS -DNR CCA with no intubation Charges/Coding Visit Charges Inpatient E&M: 24226 Subs Hosp L2
[2023-06-25 13:50] VITALS: BP 91/51; PULSE 81; RESP 20; TEMP 36.7; O2SAT 93
[2023-06-25 20:00] VITALS: BP 123/61; PULSE 80; RESP 16; TEMP 37.2; O2SAT 100
[2023-06-25] MEDS: Vibegron 75 MG TABLET PO (21:09)
[2023-06-25] MEDS: Pravastatin 40 MG Tablet PO (21:09)
[2023-06-25] MEDS: Famotidine 20 MG Tablet 40 MG PO (21:10)
[2023-06-26 02:00] VITALS: BP 107/52; PULSE 75; RESP 16; TEMP 36.6; O2SAT 94
[2023-06-26] MEDS: Primidone 50 MG Tablet 100 MG PO ×2 (05:38→14:48)
[2023-06-26 07:28] VITALS: O2SAT 95
[2023-06-26] MEDS: Menthol/Lanolin/Calamine/Znox 113 GM Tube 1 APPLIC TOPICAL (07:43)
[2023-06-26] MEDS: SimETHICONE 80 MG Chewable Tablet PO ×2 (07:43→14:49)
[2023-06-26] MEDS: Ferrous Sulfate 325 MG Tablet PO (07:43)
[2023-06-26 07:45] VITALS: BP 115/64; PULSE 71; RESP 18; TEMP 36.8; O2SAT 94
[2023-06-26 07:52] VITALS: O2SAT 93
[2023-06-26 07:55] LABS: Anion Gap 5 (5-15); BUN 21 mg/dL (7-18); BUN/Creat Ratio 25.9 RATIO (10-20); Calcium,Total 8.5 mg/dL (8.5-10.1); Chloride 103 mmol/L (98-107); Creatinine, Serum 0.81 mg/dL (0.55-1.02); EST Glomerular Filtration Rate 73 mL/min (>60); Est Glom Filt Rate - Afr Amer 88 mL/min (>60); Estimated Creatinine Clearance 52.34 ml/min; Glucose 96 mg/dL (74-106); Potassium 3.9 mmol/L (3.5-5.1); Sodium Level 137 mmol/L (136-145)
[2023-06-26 09:08] LABS: International Normalized Ratio 1.1; Prothrombin Time (Protime)PT. 14.5 SECONDS (11.7-14.9)
[2023-06-26] MEDS: Ceftriaxone 2 GM in 0.9% Normal Saline (50mL MB+) 50 ML IV (10:33)
[2023-06-26] MEDS: 0.9% Saline Lock 10 ML Syringe IV (10:34)
[2023-06-26] MEDS: APIXABAN 5 MG TABLET PO (10:35)
[2023-06-26] MEDS: Fluticasone 0.05% 1 SPRAY NASAL.SRY 2 SPRAY NASAL (10:35)
[2023-06-26] MEDS: Pantoprazole Sodium 40 MG Tablet PO (10:35)
[2023-06-26] MEDS: DULoxetine Hcl 60 MG Capsule PO (10:35)
[2023-06-26] MEDS: Tolterodine Tartrate 2 MG CAP.SA PO (10:36)
[2023-06-26] MEDS: Miconazole Nitrate 43 GM Bottle 1 APPLIC TOPICAL (10:36)
[2023-06-26] MEDS: Divalproex Sodium 250 MG Tablet 500 MG PO (10:36)
[2023-06-26] MEDS: Furosemide 40 MG/4 ML Vial IV (10:37)
[2023-06-26] MEDS: Ascorbic Acid 500 MG Tablet PO (10:37)
[2023-06-26] MEDS: Cholecalciferol (VIT D3) 25 MCG TABLET (1,000 UNITS) PO (10:38)
[2023-06-26] MEDS: Cyanocobalamin (B12) 1,000 MCG/ML Vial 1000 MCG IM (10:38)
[2023-06-26] MEDS: buPROPion (XL) 150 MG TABLET.XL PO (10:39)
[2023-06-26 10:50] VITALS: PULSE 98; RESP 18; O2SAT 96
--- NOTE | 2023-06-26 12:58 | PCM.DC.SUM ---
Providers Date of Admission: 06/23/23 Date of Discharge: 06/26/23 Primary Care Physician: Dr. Gonzales Pinto MD Reason For Visit: SHORTNESS OF BREATH Diagnosis Discharge Diagnosis (1) Hypoxia: Status: Acute Code(s): R09.02 - Hypoxemia (2) CHF (congestive heart failure): Status: Acute Code(s): I50.9 - Heart failure, unspecified (3) UTI (urinary tract infection): Status: Acute Code(s): N39.0 - Urinary tract infection, site not specified (4) Generalized weakness: Status: Acute Code(s): R53.1 - Weakness Medications at Discharge Home Medications cholecalciferol (vitamin D3) 25 mcg (1,000 unit) tablet (Vitamin D3) 1,000 unit PO DAILY vitamin 12/29/15 pravastatin 40 mg tablet 40 mg PO QHS cholesterol 08/05/18 fluticasone propionate 50 mcg/actuation nasal spray,suspension 2 spray NASAL DAILY allergies 03/18/19 primidone 50 mg tablet 100 mg PO TID tremors 03/18/19 simethicone 80 mg chewable tablet 80 mg PO TIDCM indigestion 03/18/19 mirabegron 50 mg tablet,extended release 24 hr 50 mg PO QHS bladder control 01/24/20 bupropion HCl 150 mg 24 hr tablet, extended release 150 mg PO DAILY DEPRESSION 08/09/20 aluminum-mag hydroxide-simethicone 400 mg-400 mg-40 mg/5 mL oral susp 30 ml PO Q4H PRN GI DISTRESS 08/20/20 ascorbic acid (vitamin C) 500 mg tablet 500 mg PO DAILY supplement 09/28/20 cyanocobalamin (vitamin B-12) 1,000 mcg/mL injection solution 1,000 mcg IM QMONTH supplement 10/23/20 nystatin 100,000 unit/gram topical powder 1 applic topical Q8H PRN Skin Irritation 07/30/21 furosemide 20 mg tablet 60 mg (3 x 20 mg) PO DAILY #0 tabs 08/14/21 apixaban 5 mg tablet (Eliquis) 5 mg PO BID 09/30/21 divalproex 500 mg tablet,delayed release (Depakote) 500 mg PO BID 09/30/21 halobetasol propionate 0.05 % topical cream 0.05 applic topical BID 11/03/21 d-mannose 500 mg capsule 1,000 mg PO BID 12/05/21 polyethylene glycol 3350 17 gram oral powder packet (Miralax) 17 g PO Q24H PRN Constipation 12/05/21 duloxetine 60 mg capsule,delayed release (Cymbalta) 60 mg PO DAILY 03/19/23 famotidine 40 mg tablet 40 mg PO QHS 03/19/23 ferrous sulfate 325 mg (65 mg iron) tablet (Feosol) 325 mg PO DAILY 03/19/23 hydrocodone 7.5 mg-acetaminophen 325 mg tablet 1 tab PO Q12H PRN pain 03/19/23 albuterol sulfate 2.5 mg/3 mL (0.083 %) solution for nebulization 2.5 mg inhalation Q2H PRN Dyspnea, wheezing 04/16/23 omeprazole 40 mg capsule,delayed release 40 mg PO DAILY 04/16/23 ondansetron HCl 8 mg tablet 8 mg PO Q8H PRN Nausea 04/16/23 oxybutynin chloride 5 mg tablet,extended release 24 hr 5 mg PO DAILY OVERACTIVE BLADDER 04/16/23 phenazopyridine 200 mg tablet (Pyridium) 200 mg PO Q8H PRN Bladder Spasms 04/16/23 cefdinir 300 mg capsule 300 mg PO BID #16 caps 06/26/23 Hospital Course Procedures 2-D Echocardiogram, EKG and - (Chest x-ray/CTA of the chest) Summary of Care Provided Minutes Spent on Discharge: 38 Hospital Course: Mrs. Anderson is a 78-year-old white female who presented to the emergency department at [facility] from her assisted living facility after she sustained a fall. Evidently the nursing staff there was noted that she slid right off the side of her bed. Patient reported that this was secondary to weakness. Per EMS report she was noted to be hypoxic at 80% on room air and requiring some oxygen which was new for her. At baseline she is on no oxygen. She had no trauma related to her fall and the patient did know she was short of breath and have been complaining of cough. She had no known sick contacts. Vital signs on presentation showed temperature of 98.3, heart rate 105, initial blood pressure was 155/87, pulse ox was 91% on 2 L nasal cannula but improved to between 94 and 96% on 2 L nasal cannula has since been weaned to room air with a sat of 92%. Her CBC was overall unremarkable but she did have a left shift with 82.3% neutrophilia and a monocytosis at 10.2%. Her chemistry panel showed normal electrolytes and renal function with a glucose of 136. Her initial troponin was 26 and a BNP was 133.9. Her chest x-ray and EKG were unremarkable for any changes from previous. A CTA of her chest was performed to rule out PE despite her being on Eliquis given the fact that we were unable to find any other etiology for her hypoxia. This showed normal CT of the chest without PE or arterial dissection however on my review the lung parenchyma seemed to have some patchy groundglass changes diffusely. She was treated with antibiotics admitted to the medical floor where she was maintained on antibiotics. COVID and flu as well as RSV were all negative. Her UA was suggestive of urinary tract infection and patient does have history of frequent UTIs in which she gets extremely weak. Urine culture was sent and found to be positive for a pansensitive E. coli. She was maintained on ceftriaxone during her hospitalization. Initially she was thought to possibly have a pneumonia however on further review it appears that she has or about acute component of heart failure. She had been compliant with her home Lasix which is 60 mg daily. She was diuresed with IV diuretics during her hospitalization and an echocardiogram was obtained. Her echo showed an EF of 65% with a severely enlarged left atrium, severe focal posterior mitral annular calcification with mild mitral valve insufficiency and pulmonary hypertension that was mild to moderate with a right ventricular systolic pressure estimated to be 35 mmHg. The patient does have a history of sleep apnea that was diagnosed remotely however she has not been compliant with a CPAP and does not like wearing a mask. I had an extensive conversation with both she and her daughter that this might help with her heart failure component and her leg swelling. They both voiced understanding and indicated they would like to follow-up as an outpatient to have another sleep study and see if there is a mask that she is able to tolerate. I have made a referral for pulmonary medicine to have further sleep evaluation. From a physical standpoint, her weakness improved dramatically in treating her urinary tract infection which is typical for her when she presents with a urinary tract infection. She was deemed not to need any ongoing therapy services other than the home health care that she was already getting. She lives at assisted living and she has been getting home health care since she has been there. With regards to urinary tract infection the plan will be to discharge her home on Omnicef to complete treatment for a total of 10 days. She does follow with urology and I have asked her to follow-up with Dr. Villavicencio to be seen within the next 2 weeks. I have also asked her to follow-up with her primary care physician to be seen within the next 2 weeks. She was discharged home in stable condition with no changes in her home medications and additionally was given Omnicef to complete treatment for her UTI. Prescription was sent to local pharmacy. She was discharged home in stable condition on 06/26/2023. Discharge diagnoses: Acute hypoxia Acute on chronic HFpEF Mild to moderate pulmonary hypertension E. coli UTI Generalized weakness Debility Chronic microcytic anemia History of DVT/PE Hyperlipidemia Urine incontinence Overactive bladder Tremors GERD Osteoarthritis Anxiety/depression Physical Exam Const alert, oriented x3, no apparent distress and well nourished; Negative for average body habitus or healthy appearing Constitutional Narrative: Morbidly obese, white female, sitting up in a chair at the bedside watching television, appears comfortable and nontoxic, on room air, patient does appear chronically ill and older than stated age General Appearance: cooperative, comfortable, well kempt and well developed Orientation / Consciousness: awake, oriented to person, oriented to place and oriented to time HEENT normocephalic, head/scalp atraumatic and moist oral mucous membranes HEENT Narrative: Dentures in place, Mallampati is 3, no thrush Eyes PERRL, EOMs intact bilaterally and conjunctivae normal Eyes Narrative: No scleral icterus Neck no lymphadenopathy and supple Neck Narrative: Trachea midline, no thyroid enlargement Resp normal respiratory effort, no retractions, no use of accessory muscles and clear to auscultation bilaterally Resp Narrative: Diminished diffusely but clear likely related to body habitus Auscultation: Negative for rales, rhonchi or wheezes Cardio regular rate, regular rhythm, S1 normal heart sound, S2 normal heart sound, no murmurs, no rub, no gallops and no clicks GI normal to inspection, nondistended, normoactive bowel sounds, soft to palpation and non-tender GI Narrative: Large protuberant abdomen Extremity no clubbing, cyanosis or edema Extremity Narrative: Trace bilateral lower extremity edema, no cyanosis or clubbing Skin no rashes or lesions noted, no wounds, skin turgor normal, no jaundice, no petechiae and no mottling Neuro oriented x3, moves all extremities and no focal motor deficits Neuro Narrative: Mild generalized weakness noted but proximal musculature is weaker than distal Speech: speech normal Psych affect normal Psych Narrative: Eye contact is good, patient is mood seems stable and interacts appropriately Weight / BMI Weight Weight: 129 kg Body Mass Index (BMI) 47.3 ABG / Lab / Microbiology Data 06/25/23 07:02 06/26/23 07:07 Laboratory: Laboratory Results - last 24 hr 06/26/23 07:07: PT 14.5, INR 1.1, Sodium 137, Potassium 3.9, Chloride 103, Carbon Dioxide 29.0, Anion Gap 5, BUN 21 H, Creatinine 0.81, Estim Creat Clear Calc 52.34, Est GFR (MDRD) Af Amer 88, Est GFR (MDRD) Non-Af 73, BUN/Creatinine Ratio 25.9 H, Glucose 96, Calcium 8.5 Microbiology: Microbiology 06/23/23 11:00 Urine Catheter - Catheter Urine Culture - Final Escherichia coli 06/24/23 09:38 Mucosa - Nasopharyngeal Respiratory Panel (PCR) - Final 06/23/23 11:00 Urine Catheter - Catheter Legionella Antigen - Final 06/23/23 11:00 Urine Catheter - Catheter Streptococcus pneumoniae Antigen (M - Final 06/23/23 11:13 Nasal Secretion SARS-CoV-2 Antigen (Rapid) - Final 06/23/23 11:13 Mucosa - Nose Influenza & RSV (PCR) - Final D/C Instructions Discharge Diet: Low fat / Low cholesterol, 8 Cup Fluid Restriction and 4000 mg Sodium Diet Discharge Activity: Return to Normal Activity Meaningful Use Info Meaningful Use Diagnoses (Choose all that apply): None applicable Discharge Plan Admission Admit Date/Time: 06/23/23 15:27 Primary Reason for Your Visit: Generalized weakness Attending Provider: Abi Sierra Primary Care Provider: Gonzales Pinto Consulting Providers: Nisha Frausto Discharge Orders/Prescriptions Prescriptions: New cefdinir 300 mg capsule 300 mg PO BID Qty: 16 0RF Continued cholecalciferol (vitamin D3) [Vitamin D3] 1,000 UNIT tablet 1,000 unit PO DAILY pravastatin 40 MG tablet 40 mg PO QHS primidone 50 MG tablet 100 mg PO TID fluticasone propionate 1 SPRAY spray,suspension 2 spray NASAL DAILY simethicone 80 MG tablet 80 mg PO TIDCM mirabegron 50 MG tablet extended release 24 hr 50 mg PO QHS bupropion HCl 150 MG tablet extended release 24 hr 150 mg PO DAILY alum-mag hydroxide-simeth 355 ML suspension 30 ml PO Q4H PRN (Reason: GI DISTRESS) ascorbic acid (vitamin C) 500 MG tablet 500 mg PO DAILY cyanocobalamin (vitamin B-12) 1,000 mcg/mL Solution 1,000 mcg IM QMONTH Rx Instructions: states last had in August states is due the 4th of each month nystatin 100,000 unit/gram Powder 1 applic TOPICAL Q8H PRN (Reason: Skin Irritation) furosemide 20 mg Tablet 60 mg PO DAILY Qty: 0 0RF divalproex [Depakote] 500 mg Tablet,Delayed Release (Dr/Ec) 500 mg PO BID Eliquis 5 mg Tablet 5 mg PO BID halobetasol propionate 0.05 % cream 0.05 applic TOPICAL BID polyethylene glycol 3350 [Miralax] 17 gram Powder In Packet 17 g PO Q24H PRN (Reason: Constipation) d-mannose 500 mg Capsule 1,000 mg PO BID omeprazole 40 mg capsule,delayed release(DR/EC) 40 mg PO DAILY oxybutynin chloride 5 mg tablet extended release 24hr 5 mg PO DAILY albuterol sulfate 2.5 MG/3 ML solution for nebulization 2.5 mg INHALATION Q2H PRN (Reason: Dyspnea, wheezing) ondansetron HCl 8 MG tablet 8 mg PO Q8H PRN (Reason: Nausea) phenazopyridine [Pyridium] 200 MG tablet 200 mg PO Q8H PRN (Reason: Bladder Spasms) duloxetine [Cymbalta] 60 mg capsule,delayed release(DR/EC) 60 mg PO DAILY ferrous sulfate [Feosol] 325 mg (65 mg iron) tablet 325 mg PO DAILY hydrocodone-acetaminophen 7.5-325 mg tablet 1 tab PO Q12H PRN (Reason: pain) famotidine 40 mg tablet 40 mg PO QHS Referrals / Follow Up: Gonzales Pinto MD [Primary Care Provider] - Within 2 Weeks Alejandra Villavicencio MD [Med Staff - Active Staff] - Within 2 Weeks (call 06/27/2023 to set up appt ) Shavon Farmer PHOTO STYLIST, PHOTO STYLIST-C [Med Staff - Adv Practice Prof] - Within 1 Month (For sleep apnea work up) Disposition Disposition (needs filled in before D/C Order can be placed): Assisted Living Charges/Coding Visit Charges Inpatient E&M: 63819 Disch Hosp >30min
[2023-06-26 13:08] VITALS: BP 122/64; PULSE 64; RESP 18; TEMP 36.7; O2SAT 95
[2023-06-26] MEDS: Acetaminophen 325 MG Tablet 650 MG PO (14:48)
--- NOTE | 2023-06-26 14:58 | CASEMGMT ---
Social Work Per physician, pt is ready for discharge today. SW met with pt and discussed dc plan. Pt feels she is able to return to [facility]. Pt does not have transportation available and requested this be set up. DC respiratory equipment assistant updated and to complete discharge. Disposition: Return to [facility] MEG Rubio
--- NOTE | 2023-06-26 15:17 | PHA.DC.MR.R ---
Pharmacy [place] Med Reconciliation Pharmacy Service has performed discharge medication reconciliation for this patient upon transfer to [facility] The patient's discharge medication list was reviewed for discrepancies and discrepancies were resolved. Medications at Discharge Home Medications cholecalciferol (vitamin D3) 25 mcg (1,000 unit) tablet (Vitamin D3) 1,000 unit PO DAILY vitamin 12/29/15 pravastatin 40 mg tablet 40 mg PO QHS cholesterol 08/05/18 fluticasone propionate 50 mcg/actuation nasal spray,suspension 2 spray NASAL DAILY allergies 03/18/19 primidone 50 mg tablet 100 mg PO TID tremors 03/18/19 simethicone 80 mg chewable tablet 80 mg PO TIDCM indigestion 03/18/19 mirabegron 50 mg tablet,extended release 24 hr 50 mg PO QHS bladder control 01/24/20 bupropion HCl 150 mg 24 hr tablet, extended release 150 mg PO DAILY DEPRESSION 08/09/20 aluminum-mag hydroxide-simethicone 400 mg-400 mg-40 mg/5 mL oral susp 30 ml PO Q4H PRN GI DISTRESS 08/20/20 ascorbic acid (vitamin C) 500 mg tablet 500 mg PO DAILY supplement 09/28/20 cyanocobalamin (vitamin B-12) 1,000 mcg/mL injection solution 1,000 mcg IM QMONTH supplement 10/23/20 nystatin 100,000 unit/gram topical powder 1 applic topical Q8H PRN Skin Irritation 07/30/21 furosemide 20 mg tablet 60 mg (3 x 20 mg) PO DAILY #0 tabs 08/14/21 apixaban 5 mg tablet (Eliquis) 5 mg PO BID 09/30/21 divalproex 500 mg tablet,delayed release (Depakote) 500 mg PO BID 09/30/21 halobetasol propionate 0.05 % topical cream 0.05 applic topical BID 11/03/21 d-mannose 500 mg capsule 1,000 mg PO BID 12/05/21 polyethylene glycol 3350 17 gram oral powder packet (Miralax) 17 g PO Q24H PRN Constipation 12/05/21 duloxetine 60 mg capsule,delayed release (Cymbalta) 60 mg PO DAILY 03/19/23 famotidine 40 mg tablet 40 mg PO QHS 03/19/23 ferrous sulfate 325 mg (65 mg iron) tablet (Feosol) 325 mg PO DAILY 03/19/23 hydrocodone 7.5 mg-acetaminophen 325 mg tablet 1 tab PO Q12H PRN pain 03/19/23 albuterol sulfate 2.5 mg/3 mL (0.083 %) solution for nebulization 2.5 mg inhalation Q2H PRN Dyspnea, wheezing 04/16/23 omeprazole 40 mg capsule,delayed release 40 mg PO DAILY 04/16/23 ondansetron HCl 8 mg tablet 8 mg PO Q8H PRN Nausea 04/16/23 oxybutynin chloride 5 mg tablet,extended release 24 hr 5 mg PO DAILY OVERACTIVE BLADDER 04/16/23 phenazopyridine 200 mg tablet (Pyridium) 200 mg PO Q8H PRN Bladder Spasms 04/16/23 cefdinir 300 mg capsule 300 mg PO BID #16 caps 06/26/23
--- NOTE | 2023-06-26 15:40 | CASEMGMT ---
Discharge Planning Discharge orders and transport time faxed to [facility]. [facility] will transport patient by wheelchair at 4:30p. Nursing, SW, patient, and daughter updated.
--- NOTE | 2023-06-26 15:49 | NURSING ---
dietary staff called and left msg to please bring lite dinner as pt to be picked up by ambulance @ [phone]
== END 2023-06-26 16:44 | disposition home or self-care (01) | DRG 689 ==
LOC: ED 11:39 → MS3 15:40
PROVIDERS: Internal Medicine; Admitting Provider Internal Medicine; Emergency Provider Emergency Medicine; PCP Family Medicine; Visit Provider Internal Medicine
DX: N39.0 Urinary tract infection, site not specified (principal); I50.33 Acute on chronic diastolic (congestive) heart failure; Z68.42 Body mass index [BMI] 45.0-49.9, adult; I27.20 Pulmonary hypertension, unspecified; E11.40 Type 2 diabetes mellitus with diabetic neuropathy, unspecified; D50.9 Iron deficiency anemia, unspecified; B96.20 Unspecified Escherichia coli [E. coli] as the cause of diseases classified elsewhere; E66.01 Morbid (severe) obesity due to excess calories; F32.A Depression, unspecified; I34.0 Nonrheumatic mitral (valve) insufficiency; D53.9 Nutritional anemia, unspecified; D72.821 Monocytosis (symptomatic); K21.9 Gastro-esophageal reflux disease without esophagitis; M19.90 Unspecified osteoarthritis, unspecified site; E78.5 Hyperlipidemia, unspecified; R25.1 Tremor, unspecified; K27.9 Peptic ulcer, site unspecified, unspecified as acute or chronic, without hemorrhage or perforation; Z79.01 Long term (current) use of anticoagulants; R53.1 Weakness; Z80.0 Family history of malignant neoplasm of digestive organs; Z66 Do not resuscitate; N32.81 Overactive bladder; R53.81 Other malaise; I34.81 Nonrheumatic mitral (valve) annulus calcification; Z86.718 Personal history of other venous thrombosis and embolism; Z86.711 Personal history of pulmonary embolism; Z87.440 Personal history of urinary (tract) infections; R29.6 Repeated falls
CPT/HCPCS: 36415; 36600; 71045; 71275; 80048; 80053; 81001; 82248; 82803; 83605; 83735; 83880; 84100; 84443; 84484; 85025; 85610; 87077; 87086; 87088; 87186; 87449; 87631; 87633; 87641; 87811; 93005; 93306; 94668; 97110; 97116; 97162; 97166; 97535; 99252; 99285; Q9967; A4216; G0463; J1940; J3420

== ENCOUNTER → 2023-07-30 | Outpatient (REF) | payer MEDICARE, MEDICAID, SELFPAY ==
[2023-07-31 08:37] LABS: Bacteria 0 SEEN /hpf (None Seen); Mucous, Urine 0 SEEN /hpf (<or=2+); Red Blood Cells-Urine 0 SEEN /hpf (0-5); White Blood Cells 0 SEEN /hpf (0-5)
--- OUTSIDE RECORDS SUMMARY | 2023-07-31 08:58 | XMS RPT_ITS | CCD ---
Author Name Unknown Address [address] [place] [address] Organization [facility] Care Team Providers Care Upholstery Technician Name Role Phone Bogdan Ewing Unavailable ALETHA KISER Unavailable Unavailable ALETHA KISER Unavailable Unavailable COLLETTE, KHALED Unavailable Unavailable PROVIDER, UNKNOWN Admitting Unavailable KHARI MCADAMS Attending Unavailable Pcp BUSINESS OBJECTS ANALYST, No Primary Care Provider Unavailabl e Pcp BUSINESS OBJECTS ANALYST, No Primary Care Provider Unavailabl e Pcp BUSINESS OBJECTS ANALYST, No Primary Care Provider Unavailabl e Celeste Benedict MD Unavailable Pcp BUSINESS OBJECTS ANALYST, No Primary Care Provider Unavailabl e Genna Mccarthy DO Primary Care Provider Jefferson Roman Chi Primary Care Provider [phone] Allergies Allergy Classification Reported Allergen(s) Allergy Type Date of Onset Reaction(s) Facility (2 sources) warfarin drug allergy 7 [facility] Work Phone: (3 sources) amoxicillin; Translations: [AMOXICILLIN] Drug Allergy [address] [facility] Other [place] Repository (3 sources) warfarin; Translations: [WARFARIN SODIUM] Drug Allergy 2 Other: See Comments [facility] Repository (1 source) Ampicillin; Translations: [AMPICILLIN] Drug Allergy 9 [facility] Repository Medications Completed/Discontinued Medications Medication Drug Class(es) Dates Sig (Normalized) Sig (Original) acetaminophen 500 mg oral tablet (2 sources) Start: 12-19-2016 ACETAMINOPHEN EXTRA STRENGTH 500 MG TABS ACETAMINOPHEN [id number] Bogdan JOSHI amitriptyline hydrochloride 25 mg oral tablet (2 sources) Tricyclic Antidepressant Start: 12-19-2016 AMITRIPTYLINE HCL 25 MG TABS AMITRIPTYLINE HCL [id number] Bogdan JOSHI AMOXICILLIN-POT CLAVULANATE (2 sources) Penicillin-class Antibacterial Start: 12-19-2016 AUGMENTIN 500-125 MG TABS 1 tablet twice daily AMOXICILLIN-POT CLAVULANATE [id number] Bogdan JOSHI denosumab 60 mg/ml injectable solution (2 sources) RANK Ligand Inhibitor Start: 12-19-2016 PROLIA 60 MG/ML SOLN DENOSUMAB [id number] Bogdan JOSHI DULoxetine 60 mg delayed release oral capsule (2 sources) Serotonin and Norepinephrine Reuptake Inhibitor Start: 12-19-2016 CYMBALTA 60 MG CPEP DULOXETINE HCL 60156209447 Bogdan JOSHI ergocalciferol 77915 unt oral tablet (2 sources) Provitamin D2 Compound Start: 12-19-2016 VITAMIN D (ERGOCALCIFEROL) 77256 UNIT CAPS ERGOCALCIFEROL 10468892863 Bogdan JOSHI FLUTICASONE PROPIONATE (2 sources) Corticosteroid Start: 12-19-2016 FLONASE ALLERGY RELIEF 50 MCG/ACT SUSP FLUTICASONE PROPIONATE 75715687867 Bogdan JOSHI furosemide 40 mg oral tablet (2 sources) Loop Diuretic Start: 12-19-2016 LASIX 40 MG TABS FUROSEMIDE [id number] Bogdan JOSHI gabapentin 300 mg oral tablet (2 sources) Anti-epileptic Agent Start: 12-19-2016 NEURONTIN 300 MG CAPS GABAPENTIN 42216673342 Bogdan JOSHI vitamin b 12 3 mg sublingual tablet (2 sources) Vitamin B12 B-12 [address] CYANOCOBALAMIN 51779010478 Bogdan JOSHI Problems Active Problems Problem Classification [...] 16:20-0400 Body Temperature 98 [degF] Bogdan JOSHI [facility] Work Phone: 12-19-2016 16:20-0400 BP Diastolic 78 mm[Hg] Bogdan JOSHI [facility] Work Phone: 12-19-2016 16:20-0400 BP Systolic 130 mm[Hg] Bogdan JOSHI [facility] Work Phone: 12-19-2016 16:20-0400 Pulse (Heart Rate) 98 /min Bogdan JOSHI [facility] Work Phone: 12-19-2016 16:20-0400 Respiratory Rate 12 /min Bogdan JOSHI [facility] Work Phone: 12-19-2016 16:20-0400 Weight 133.36 kg Bogdan JOSHI [facility] Work Phone: Encounters Encounter Date Encounter Type Care Provider Facility Start: 09-04-2018 End: 09-04-2018 Emergency department patient visit UNKNOWN PROVIDER Facility:[facility] Start: 06-17-2017 End: 06-19-[facility]: 01-17-2006 Documentation procedure Brittany Mccloud MD Work Phone: [facility] Start: 01-17-2006 Historic EMR Kg Mccloud MD Work Phone: [facility] Start: 03-23-2005 Documentation procedure Kyler Li MD Work Phone: [facility] Start: 03-23-2005 Historic EMR Ciara suarez MD Work Phone: [facility] Procedures Date Procedure Procedure Detail Performing [...] Start: 02-21-2023 Influenza vaccination Influenza Vaccine (#1) [facility] Start: 06-23-2022 Advance Directive Discussion Advance Directive Discussion [facility] Start: 06-23-2022 Depression Assessment Depression Assessment [facility] Start: 09-04-2019 Hepatitis B surface antibody level LDL Cholesterol [facility] Start: 12-19-2016 End: 12-19-2016 Appointment Appointment [facility] Work Phone: Start: 09-02-2011 Pneumococcal Vaccine: 65+ (2 - PCV) Pneumococcal Vaccine: 65+ (2 - PCV) [facility] Start: 06-29-2011 Hemoglobin A1c/Hemoglobin.total in Blood HbA1C [facility] Start: 2011 Bone Density Screening Bone Density Screening [facility] Start: 1996 Shingrix Vaccine (1 of 2) Shingrix Vaccine (1 of 2) [facility] Start: 1965 Urine microalbumin profile DTaP,Tdap,Td Vaccine (1 - Tdap) [facility] Start: 1964 Hepatitis C Screening Hepatitis C Screening [facility] Start: 1956 3 comp foot exam completed Diabetic Foot Exam [facility] Start: 1956 Hepatitis B screening Urine Albumin:Creatinine Ratio [facility] Start: 1956 Hepatitis C antibody, confirmatory test Dilated Retinal Exam [facility] Start: 1946 Covid-19 Vaccine (#1) Covid-19 Vaccine (#1) [facility] Work Phone: Immunizations Immunization Date Immunization Notes Care Provider Anushka thomas 03-12-2012 influenza virus vacc ine, unspecified formulation Ciara Li MD Work Phone: [facility] Payers Date Payer Category Payer Unknown [id number] 1945 Unknown [id number] Social History Date Type Detail Facility Tobacco smoking stat [facility] Tobacco smoking consumption unknown [facility] Start: 01-19-[address] [facility] Start: 01-19-2019 Tobacco use panel [facility] Start: 1945 Sex Assigned At Not on file [facility] Medical Equipment Procedure Code Equipment Code Equipment Origin al Text Equipment Identifier Dates Cement Bone Simp luisana P W/ Tobramycin 1gm - [id number] Start: 03-10-2012 Cement Bone Simp luisana P W/ Tobramycin 1gm - [id number] Start: 09-01-2012 Comp Fem 5 Rt Kn Cr Victorino Trthln - [id number] Start: 03-10-2012 Ins Tib 5 13mm X 3 Cndyl Stab - [id number] Start: 03-10-2012 Ins Tib 5 11mm X 3 Cs Trthln - [id number] Start: 09-01-2012 Comp Pat 10mm 35 mm Asym Trthln - [id number] Start: 03-10-2012 Comp Pat 10mm 35 mm Asym Trthln - [id number] Start: 09-01-2012 Screw Bn 3.5mm 4 0mm Dcp Lc Dcp - [id number] Start: 09-01-2012 History of Past illness Narrative 06-17-2017 Note Date & Type Note Facility documented as of this encounter (statuses as of 03/13/2023) [facility] Summary Purpose Family History No Family History Records FoundNo Family History Records FoundNo Family History Records FoundNo Family History Records FoundNo Family History Records Found Advance Directives Documents on File Type Date Recorded Patient Chicken And Fish Cleaner Expl anation Advance Directive(s) 08/27/2012 8:21 PM Advance Directive(s) 08/27/2012 9:37 AM Procedure Findings Note HNO ID: [id number] Author: Ermelinda Dupont Service: Gastroenterology Surgery Author Type: Physician Type: Brief Op Note Filed: 11/06/2018 8:52 AM Note Text: BRIEF OPERATIVE / PROCEDURE NOTE LOG ID: [id number] SURGERY/PROCEDURE DATE: 11/06/2018 INCISION/PROCEDURE START TIME: 8:32 AM INCISION CLOSE/PROCEDURE END TIME: 8:41 AM SURGEON(S)/PROCEDURALIST(S) AND PANEL LAY UP WORKER(S): Surgeon(s) and Role: * Bull Dupont - Primary No Additional Staff SURGERY/PROCEDURE(S): EGD with biopsy gastric pouch ANESTHESIA: Monitored Anesthesia Care FINDINGS: 3-4 cm hiatal hernia ESTIMATED BLOOD LOSS: 0 ml SPECIMENS: gastric pouch COMPLICATIONS: None PRE-OP/PRE-PROCEDURE DIAGNOSIS: GERD POST-OP/POST-PROCEDURE DIAGNOSIS: Gastroesophageal reflux disease, esophagitis presence not specified [K21.9] 3-4 cm hiatal hernia SIGNATURE: Bull Dupont MD, [facility] PATIENT NAME: Adam Anderson DATE: November 06, 2018 TIME: 8:51 AM PAGER/CONTACT #: Additional Source Comments INFORMATION SOURCE (unrecogn ized section and content) DATE CREATED AUTHOR AUTHOR'S ORGANIZ ATION 11/19/2018 [facility] DATE CREATED AUTHOR AUTHOR'S ORGANIZ ATION 11/24/2018 [facility] DATE CREATED AUTHOR AUTHOR'S ORGANIZ ATION 09/07/2019 [facility] DATE CREATED AUTHOR AUTHOR'S ORGANIZ ATION 07/19/2021 [facility] Source Comments (unrecognize d section and content) In the event this informatio n is protected by the Federal Confidentiality of Alcohol and Drug Abuse Patient Records regulations: The Federal rules restrict any use of the information to criminally investigate or prosecute any alcohol or drug abuse patient.[facility] the event this information is protected by the Federal Confidentiality of Alcohol and Drug Abuse Patient Records regulations: The Federal rules restrict any use of the information to criminally investigate or prosecute any alcohol or drug abuse patient.[facility] Care Teams (unrecognized sec tion and content) [...] BE BASED ON THE PRIMARY CLINICAL RECORDS. [facility]. provides no warranty or guarantee of the accuracy or completeness of information in this document.
[2023-07-31 09:43] LABS: Color, Urine Yellow (Yellow); Glucose, Dipstick Normal (Normal); Ketone-Dipstick Negative (Negative); Leukocyte Esterase-Dipstick Negative /ul (Negative); Nitrite-Dipstick Positive (Negative); Occult Blood-Urine Negative /ul (Negative); Protein-Dipstick Negative (Negative); Specific Gravity, Urine 1.015 (1.002-1.030); Urine Clarity Clear (Clear); Urine Urobilinogen 4 mg/dl (Normal)
[2023-07-31 10:56] LABS: Urine Bilirubin Dipstick 1 mg/dL (Negative)
[2023-07-31 11:24] LABS: Calcium Oxalate Crystals Ur 2+ /hpf (<or=2+); Squamous Epithelial Cells - UA 0-5 SEEN /hpf (5-10)
== END ==
LOC: OLS.SWAL 08:36
PROVIDERS: PCP Family Medicine; Visit Provider Urology
DX: N39.0 Urinary tract infection, site not specified (principal)
CPT/HCPCS: 81001; 87077; 87086; 87088; 87186

== ENCOUNTER 2023-08-25 08:05 | Day surgery (SDC) | payer MEDICARE, MEDICAID, SELFPAY ==
[2023-08-25 08:38] VITALS: BP 111/57; PULSE 80; RESP 18; TEMP 36.6; O2SAT 95; BMI 48.5
--- OUTSIDE RECORDS SUMMARY | 2023-08-25 08:40 | XMS RPT_ITS | CCD ---
Author Name Unknown Address [address] [place] [address] Organization [facility] Care Team Providers Care Overhauler Bus Truck Name Role Phone Bogdan Ewing Unavailable ALETHA KISER Unavailable Unavailable ALETHA KISER Unavailable Unavailable COLLETTE, KHALED Unavailable Unavailable PROVIDER, UNKNOWN Admitting Unavailable KHARI MCADAMS Attending Unavailable Pcp WIRE COILER, No Primary Care Provider Unavailabl e Pcp WIRE COILER, No Primary Care Provider Unavailabl e Pcp WIRE COILER, No Primary Care Provider Unavailabl e Celeste Benedict MD Unavailable [phone] Pcp WIRE COILER, No Primary Care Provider Unavailabl e Genna Mccarthy DO Primary Care Provider Jefferson Roman Chi Primary Care Provider [phone] Allergies Allergy Classification Reported Allergen(s) Allergy Type Date of Onset Reaction(s) Facility (2 sources) warfarin drug allergy 7 [facility] Work Phone: (3 sources) amoxicillin; Translations: [AMOXICILLIN] Drug Allergy 7 Anaphylaxis [facility] Other [place] Repository (3 sources) warfarin; Translations: [WARFARIN SODIUM] Drug Allergy 2 Other: See Comments [facility] Repository (1 source) Ampicillin; Translations: [AMPICILLIN] Drug Allergy 9 [facility] Repository Medications Completed/Discontinued Medications Medication Drug Class(es) Dates Sig (Normalized) Sig (Original) acetaminophen 500 mg oral tablet (2 sources) Start: 12-19-2016 ACETAMINOPHEN EXTRA STRENGTH 500 MG TABS ACETAMINOPHEN [id number] Bogdan JOSHI amitriptyline hydrochloride 25 mg oral tablet (2 sources) Tricyclic Antidepressant Start: 12-19-2016 AMITRIPTYLINE HCL 25 MG TABS AMITRIPTYLINE HCL [id number] Bogdan JOSHI AMOXICILLIN-POT CLAVULANATE (2 sources) Penicillin-class Antibacterial Start: 12-19-2016 AUGMENTIN 500-125 MG TABS 1 tablet twice daily AMOXICILLIN-POT CLAVULANATE [id number] Bogdan JOSHI denosumab 60 mg/ml injectable solution (2 sources) RANK Ligand Inhibitor Start: 12-19-2016 PROLIA 60 MG/ML SOLN DENOSUMAB 01790909087 Bogdan JOSHI DULoxetine 60 mg delayed release oral capsule (2 sources) Serotonin and Norepinephrine Reuptake Inhibitor Start: 12-19-2016 CYMBALTA 60 MG CPEP DULOXETINE HCL 61237672593 Bogdan JOSHI ergocalciferol 32457 unt oral tablet (2 sources) Provitamin D2 Compound Start: 12-19-2016 VITAMIN D (ERGOCALCIFEROL) 61922 UNIT CAPS ERGOCALCIFEROL [id number] Bogdan JOSHI FLUTICASONE PROPIONATE (2 sources) Corticosteroid Start: 12-19-2016 FLONASE ALLERGY RELIEF 50 MCG/ACT SUSP FLUTICASONE PROPIONATE 01915878946 Bogdan JOSHI furosemide 40 mg oral tablet (2 sources) Loop Diuretic Start: 12-19-2016 LASIX 40 MG TABS FUROSEMIDE [id number] Bogdan JOSHI gabapentin 300 mg oral tablet (2 sources) Anti-epileptic Agent Start: 12-19-2016 NEURONTIN 300 MG CAPS GABAPENTIN 32159997625 Bogdan JOSHI vitamin b 12 3 mg sublingual tablet (2 sources) Vitamin B12 B-12 [address] CYANOCOBALAMIN 78871068456 Bogdan JOSHI Problems Active Problems Problem Classification [...] 16:20-0400 Body Temperature 98 [degF] Bogdan JOSHI [facility] Work Phone: 12-19-2016 16:20-0400 BP Diastolic 78 mm[Hg] Bogdan JOSHI [facility] Work Phone: 12-19-2016 16:20-0400 BP Systolic 130 mm[Hg] Bogdan JOSHI [facility] Work Phone: 12-19-2016 16:20-0400 Pulse (Heart Rate) 98 /min Bogdan JOSHI [facility] Work Phone: 12-19-2016 16:20-0400 Respiratory Rate 12 /min Bogdan JOSHI [facility] Work Phone: 12-19-2016 16:20-0400 Weight 133.36 kg Bogdan JOSHI [facility] Work Phone: Encounters Encounter Date Encounter Type Care Provider Facility Start: 09-04-2018 End: 09-04-2018 Emergency department patient visit UNKNOWN PROVIDER Facility:[facility] Start: 06-17-2017 End: 06-19-2017 [facility] Start: 01-17-2006 Documentation procedure Brittany Mccloud MD Work Phone: [facility] Start: 01-17-2006 Historic EMR Kg Mccloud MD Work Phone: [facility] Start: 03-23-2005 Documentation procedure Kyler Li MD Work Phone: [facility] Start: 03-23-2005 Historic EMR Ciara suarez MD Work Phone: IF [facility] Procedures Date Procedure Procedure Detail Performing Clinician [...] 02-21-2023 Influenza vaccination Influenza Vaccine (#1) [facility] Start: 06-23-2022 Advance Directive Discussion Advance Directive Discussion [facility] Start: 06-23-2022 Depression Assessment Depression Assessment [facility] Start: 09-04-2019 Hepatitis B surface antibody level LDL Cholesterol [facility] Start: 12-19-2016 End: 12-19-2016 Appointment Appointment [facility] Work Phone: Start: 09-02-2011 Pneumococcal Vaccine: 65+ (2 - PCV) Pneumococcal Vaccine: 65+ (2 - PCV) [facility] Start: 06-29-2011 Hemoglobin A1c/Hemoglobin.total in Blood HbA1C [facility] Start: 2011 Bone Density Screening Bone Density Screening [facility] Start: 1996 Shingrix Vaccine (1 of 2) Shingrix Vaccine (1 of 2) [facility] Start: 1965 Urine microalbumin profile DTaP,Tdap,Td Vaccine (1 - Tdap) [facility] Start: 1964 Hepatitis C Screening Hepatitis C Screening [facility] Start: 1956 3 comp foot exam completed Diabetic Foot Exam [facility] Start: 1956 Hepatitis B screening Urine Albumin:Creatinine Ratio [facility] Start: 1956 Hepatitis C antibody, confirmatory test Dilated Retinal Exam [facility] Start: 1946 Covid-19 Vaccine (#1) Covid-19 Vaccine (#1) [facility] Work Phone: Immunizations Immunization Date Immunization Notes Care Provider Anushka thomas 03-12-2012 influenza virus vacc ine, unspecified formulation Ciara Li MD Work Phone: [facility] Payers Date Payer Category Payer Unknown [id number] 1945 Unknown [id number] Social History Date Type Detail Facility Tobacco smoking stat [facility] Tobacco smoking consumption unknown [facility] Start: 01-19-2019 History of Social function [facility] Start: 01-19-2019 Tobacco use panel [facility] Start: 1945 Sex Assigned At Not on file C [facility] Medical Equipment Procedure Code Equipment Code Equipment Origin al Text Equipment Identifier Dates Cement Bone Simp luisana P W/ Tobramycin 1gm - [id number] Start: 03-10-2012 Cement Bone Simp luisana P W/ Tobramycin 1gm - [id number] Start: 09-01-2012 Comp Fem 5 Rt Kn Cr Victorino Trthln - [id number] Start: 03-10-2012 Ins Tib 5 13mm X 3 Cndyl Stab - [id number] Start: 03-10-2012 Ins Tib 5 11mm X 3 Cs Trthln - [id number] Start: 09-01-2012 Comp Pat 10mm 35 mm Asym Trthln - [id number] Start: 03-10-2012 Comp Pat 10mm 35 mm Asym Trthln - [id number] Start: 09-01-2012 Screw Bn 3.5mm 4 0mm Dcp Lc Dcp - [id number] Start: 09-01-2012 History of Past illness Narrative 06-17-2017 Note Date & Type Note Facility documented as of this encounter (statuses as of 03/13/2023) [facility] Summary Purpose Family History No Family History Records FoundNo Family History Records FoundNo Family History Records FoundNo Family History Records FoundNo Family History Records Found Advance Directives Documents on File Type Date Recorded Patient Grease 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 Expl 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 Advance Directive(s) 08/27/2012 8:21 PM Advance Directive(s) 08/27/2012 9:37 AM Procedure Findings Note HNO ID: [id number] Author: Ermelinda Dupont Service: Gastroenterology Surgery Author Type: Physician Type: Brief Op Note Filed: 11/06/2018 8:52 AM Note Text: BRIEF OPERATIVE / PROCEDURE NOTE LOG ID: [id number] SURGERY/PROCEDURE DATE: 11/06/2018 INCISION/PROCEDURE START TIME: 8:32 AM INCISION CLOSE/PROCEDURE END TIME: 8:41 AM SURGEON(S)/PROCEDURALIST(S) AND TUYERE FITTER(S): Surgeon(s) and Role: * Bull Dupont - Primary No Additional Staff SURGERY/PROCEDURE(S): EGD with biopsy gastric pouch ANESTHESIA: Monitored Anesthesia Care FINDINGS: 3-4 cm hiatal hernia ESTIMATED BLOOD LOSS: 0 ml SPECIMENS: gastric pouch COMPLICATIONS: None PRE-OP/PRE-PROCEDURE DIAGNOSIS: GERD POST-OP/POST-PROCEDURE DIAGNOSIS: Gastroesophageal reflux disease, esophagitis presence not specified [K21.9] 3-4 cm hiatal hernia SIGNATURE: Bull Dupont MD, [facility] PATIENT NAME: Adam Anderson DATE: November 06, 2018 TIME: 8:51 AM PAGER/CONTACT #: Additional Source Comments INFORMATION SOURCE (unrecogn ized section and content) DATE CREATED AUTHOR AUTHOR'S ORGANIZ ATION 11/19/2018 [facility] DATE CREATED AUTHOR AUTHOR'S ORGANIZ ATION 11/24/2018 [facility] DATE CREATED AUTHOR AUTHOR'S ORGANIZ ATION 09/07/2019 [facility] DATE CREATED AUTHOR AUTHOR'S ORGANIZ ATION 07/19/2021 [facility] Source Comments (unrecognize d section and content) In the event this informatio n is protected by the Federal Confidentiality of Alcohol and Drug Abuse Patient Records regulations: The Federal rules restrict any use of the information to criminally investigate or prosecute any alcohol or drug abuse patient.[facility] the event this information is protected by the Federal Confidentiality of Alcohol and Drug Abuse Patient Records regulations: The Federal rules restrict any use of the information to criminally investigate or prosecute any alcohol or drug abuse patient.[facility] Care Teams (unrecognized sec tion [...] BE BASED ON THE PRIMARY CLINICAL RECORDS. [facility] [employer] [facility]. provides no warranty or guarantee of the accuracy or completeness of information in this document.
[2023-08-25] MEDS: Lactated Ringers 1,000 ML 15 ML IV (08:49)
--- NOTE | 2023-08-25 08:50 | RAD_ITS ---
STUDY: RIGHT KNEE ARTHROGRAPHY. RIGHT REASON FOR EXAM: Female, 78 years old. RT KNEE INJECTION FLUOROSCOPY TIME (if supplied): ( 4 seconds ) minutes/seconds. 0.85 mGy. 3 images were submitted. TECHNIQUE: Intraoperative imaging provided for right knee injection. COMPARISON: None. RAD/Fluoro Guided Needle Placement IMPRESSION: Intraoperative imaging provided for right knee injection. Electronically Signed: Joshua Rosario MD at 9:34 EDT ,
[2023-08-25] MEDS: Lidocaine 1% (5 ml sdv) 5 ML Vial (09:34)
[2023-08-25] MEDS: MethylPREDNISolone Acetate 80 MG/ML Vial (09:34)
--- NOTE | 2023-08-25 09:37 | PCM.OPRPT ---
Report of Operation Date of Procedure: 08/25/23 Description of Surgical Findings:: PREOPERATIVE DIAGNOSIS: Osteoarthritis of the right knee, chronic postoperative knee pain POSTOPERATIVE DIAGNOSIS: Osteoarthritis of the right knee, chronic postoperative knee pain PROCEDURE PERFORMED: Right knee superomedial, superolateral, and inferomedial genicular nerves steroid injection under fluoroscopy guidance. ANESTHESIA: MAC. BLOOD LOSS: Minimal. COMPLICATIONS: None. DESCRIPTION OF PROCEDURE: History and physical of today was reviewed. Risks and benefits of the procedure were explained. The patient understood and agreed to proceed. Informed consent was obtained. IV inserted per routine protocol. The patient was taken to the operating room and placed in the supine position. The right knee was prepped and draped in a sterile fashion using iodine x3. Under fluoroscopy guidance on AP view, the right knee was visualized. The skin and subcutaneous tissue was anesthetized with approximately 5 mL of 1% lidocaine using a 25-gauge regular needle at the vicinity of the superomedial, superolateral, and inferomedial genicular nerves. Under direct visualization of fluoroscopy on AP view as well as lateral view, starting on the right superomedial, ending on the right inferomedial, passing through the right superolateral genicular nerves, the needle was passed through the skin. The tip of the needle was maneuvered and directed towards the diaphyseal junction of each corresponding nerve. Once tip of the needle was in the vicinity of the diaphysis and in contact with the bone, after confirmation on AP as well as lateral view and repeated negative aspiration for blood, a total of 12 mL of preservative-free 0.25% Marcaine with 80 mg of Depo-Medrol was injected in divided doses between those three levels. The needles were then removed intact. The patient experienced no sign or symptoms of intravascular injection. The patient experienced no paresthesia. The procedure was completed without any apparent difficulty or any complications. The patient appeared to tolerate it well. ASSESSMENT AND PLAN: This is a 78-year-old female with osteoarthritis of the right knee, chronic postoperative knee pain status post right knee superior medial, superior lateral, inferior medial genicular nerve steroid injection under fluoroscopic guidance, patient will continue her current medications, patient will follow in approximately 2 weeks for reevaluation.
[2023-08-25 09:43] VITALS: BP 111/57; BP 147/96; PULSE 75; RESP 16; TEMP 36.7; O2SAT 93
[2023-08-25 09:45] VITALS: BP 111/57; BP 131/104; PULSE 78; RESP 16; O2SAT 91
[2023-08-25 09:50] VITALS: BP 103/54; BP 111/57; PULSE 76; RESP 16; O2SAT 92
[2023-08-25 09:55] VITALS: BP 111/57; BP 96/62; PULSE 76; RESP 16; TEMP 36.2; O2SAT 92
[2023-08-25 10:06] VITALS: BP 111/57
== END 2023-08-25 10:23 | disposition home or self-care (01) ==
LOC: SDC 08:08 → AC 08:10
PROVIDERS: PCP Family Medicine; Referring Provider Anesthesiology Pain Medicine; Visit Provider Anesthesiology Pain Medicine
PROC: 3E0U3GC Introduction of Other Therapeutic Substance into Joints, Percutaneous Approach (ICD-10-PCS; CPT 20610; principal; 2023-08-25 09:45)
DX: M17.11 Unilateral primary osteoarthritis, right knee (principal); M25.569 Pain in unspecified knee; F32.9 Major depressive disorder, single episode, unspecified; F41.9 Anxiety disorder, unspecified; Z79.01 Long term (current) use of anticoagulants; K21.9 Gastro-esophageal reflux disease without esophagitis; Z86.718 Personal history of other venous thrombosis and embolism; Z87.19 Personal history of other diseases of the digestive system; Z90.49 Acquired absence of other specified parts of digestive tract; Z90.710 Acquired absence of both cervix and uterus; Z98.84 Bariatric surgery status
CPT/HCPCS: 20611; 76000; 77002; J7120

== ENCOUNTER → 2023-09-17 | Outpatient (CLI) | payer MEDICARE, MEDICAID, SELFPAY ==
[2023-09-17 17:37] LABS: Absolute Lymphocyte Count 1.12 X10^3/uL (0.83-4.51); Absolute Neutrophil Count 2.9 X10^3/uL (2.0-7.7); Basophil# 0.03 X10^3/uL; Basophil% 0.6 % (0-1); Eosinophil# 0.16 X10^3/uL; Eosinophils% 3.4 % (0-5); Hematocrit 36.6 % (37-47); Hemoglobin 11.2 g/dL (12.0-15.0); Lymphocyte # 1.12 X10^3/ul (0.83-4.51); Lymphocyte % 24.1 % (19-41); Mean Corp Hgb Conc 30.6 g/dL (32-36); Mean Corpuscular Hgb 32.1 pg (27.0-32.0); Mean Corpuscular Volume 104.9 fL (81-99); Mean Platelet Vol. 10.1 fl (6.2-12.0); Monocyte% 8.6 % (0-10); NRBC Flagged by Analyzer 0 % (0-5); Neutrophil # 2.92 X10^3/uL (2.7-7.7); Neutrophil % 63.1 % (47-70); Platelet Count 195 K/mm3 (150-450); RBC Distribution Width CV 12.9 % (11.6-14.6); RBC Distribution Width SD 49.3 fl (35.1-43.9); Red Blood Count 3.49 M/mm3 (4.2-5.4); White Blood Count 4.6 K/mm3 (4.4-11.0)
[2023-09-17 17:49] LABS: Vitamin B12 454 pg/mL (211-911); Vitamin D,25 Hydroxy 30.8 ng/mL
[2023-09-17 18:08] LABS: ALB/GLOB Ratio 1.1 RATIO (0.9-2.4); AST(SGOT) 20 U/L (15-37); Alanine Aminotransfer ALT/SGPT 31 U/L (13-56); Albumin, Serum 3.1 g/dL (3.2-5.0); Alkaline Phosphatase 99 U/L (45-117); Anion Gap 4 (5-15); BUN 23 mg/dL (7-18); BUN/Creat Ratio 29.7 RATIO (10-20); Calcium,Total 7.9 mg/dL (8.5-10.1); Chloride 109 mmol/L (98-107); Creatinine, Serum 0.78 mg/dL (0.55-1.02); EST Glomerular Filtration Rate 77 mL/min (>60); Est Glom Filt Rate - Afr Amer 93 mL/min (>60); Globulin 2.9 g/dL (2.2-4.2); Glucose 82 mg/dL (74-106); Potassium 4.5 mmol/L (3.5-5.1); Sodium Level 139 mmol/L (136-145); Thyroid Stim Hormone (TSH) 2.37 uIU/mL (0.358-3.74)
== END | disposition home or self-care (01) ==
LOC: MFPLAB 15:35
PROVIDERS: PCP Family Medicine; Visit Provider Family Medicine
DX: E11.9 Type 2 diabetes mellitus without complications (principal); R53.83 Other fatigue; E55.9 Vitamin D deficiency, unspecified
CPT/HCPCS: 36415; 80053; 82306; 82607; 84443; 85025

== ENCOUNTER 2023-09-30 18:01 | Inpatient (IN) | payer MEDICARE, MEDICAID, SELFPAY ==
[2023-09-30 18:03] VITALS: BP 119/58; PULSE 70; RESP 18; TEMP 36.6; O2SAT 94; BMI 49.1
--- NOTE | 2023-09-30 19:04 | EKG12_ITS ---
Test Reason : DYSRHYTHMIA Blood Pressure : / mmHG Vent. Rate : 072 BPM Atrial Rate : 072 BPM P-R Int : 208 ms QRS Dur : 094 ms QT Int : 418 ms P-R-T Axes : 046 005 020 degrees QTc Int : 457 ms Normal sinus rhythm Normal ECG Confirmed by Kg Pedro ([id number]), editorial intern MARIO ARROYO ([id number]) on 10/01/2023 10:38:32 AM Referred By: AMY Confirmed By:Kg Pedro
--- NOTE | 2023-09-30 19:06 | EX.ED.DYSGE1 ---
HPI History of Present Illness Chief Complaint: Weakness Detail of Chief Complaint: Generalized weakness with hypoxia assisted living. Informant: patient and family Onset/Context/Timing Onset: Days Context: Gradual Onset Timing: Intermittent Current Severity: Mild Maximum Severity: Mild Narrative Narrative: 78-year-old female with history of diabetes, prior DVT and PE on Eliquis which she has been taking. And urinary tract infections when she takes a prophylactic Keflex at night. Patient is currently in assisted living. She said she has had generalized weakness for the last 7 days. She is also had some hypoxia at the senior care. No chest pain. She denies any fever or cough. No hemoptysis. She denies any nausea vomiting or diarrhea. No dark or tarry or black stools. No fever. Patient states that she tries to walk she gets short of breath and has to sit down. Normally this would be the case. She is not on home O2. Prior similar symptoms: Yes Recent Illness/Hospitalization: Yes PFSH PFS Medical History Anxiety and depression Arthritis Back pain Bladder disease Carpal tunnel syndrome Cataracts, both eyes Chronic anticoagulation Chronic neuropathic pain Chronic pain following surgery or procedure Chronic UTI Closed left arm fracture Cystitis Depression Diabetes Diabetic neuropathy associated with type 2 diabetes mellitus DM II (diabetes mellitus, type II), controlled Facet arthropathy, lumbar FHx: cholecystectomy GERD (gastroesophageal reflux disease) GERD (gastroesophageal reflux disease) GI bleed Hematoma Hiatal hernia High cholesterol History of DVT (deep vein thrombosis) History of edema History of gallstones History of pain when walking History of stress test HLD (hyperlipidemia) Hx of peripheral neuropathy Hydronephrosis 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 Injury of head and neck Kidney stones Left shoulder pain Low iron Morbid obesity with BMI of 45.0-49.9, adult Neuropathy Non-smoker Non-smoker Normocytic anemia ROXIE (obstructive sleep apnea) Osteoarthritis Polycystic ovaries Primary osteoarthritis, left shoulder Pulmonary embolism Restless legs Segmental and somatic dysfunction of cervical region Segmental and somatic dysfunction of lumbar region Segmental and somatic dysfunction of pelvic region Segmental and somatic dysfunction of thoracic region Shortness of breath on exertion Urinary tract infection Uses wheelchair Walker as ambulation aid Wears dentures Wears hearing aid Home Medications cholecalciferol (vitamin D3) 25 mcg (1,000 unit) tablet (Vitamin D3) 1,000 unit PO DAILY vitamin 12/29/15 [History Last Taken 04/16/23] pravastatin 40 mg tablet 40 mg PO QHS cholesterol 08/05/18 [History Last Taken 04/15/23] fluticasone propionate 50 mcg/actuation nasal spray,suspension 2 spray NASAL DAILY allergies 03/18/19 [History Last Taken 04/16/23] primidone 50 mg tablet 100 mg PO TID tremors 03/18/19 [History Last Taken 04/16/23] simethicone 80 mg chewable tablet 80 mg PO TIDCM indigestion 03/18/19 [History Last Taken 04/16/23] bupropion HCl 150 mg 24 hr tablet, extended release 150 mg PO DAILY DEPRESSION 08/09/20 [History Last Taken 04/16/23] aluminum-mag hydroxide-simethicone 400 mg-400 mg-40 mg/5 mL oral susp 30 ml PO Q4H PRN GI DISTRESS 08/20/20 [History Last Taken 10/22/20] ascorbic acid (vitamin C) 500 mg tablet 500 mg PO DAILY supplement 09/28/20 [History Last Taken 04/16/23] cyanocobalamin (vitamin B-12) 1,000 mcg/mL injection solution 1,000 mcg IM QMONTH supplement 10/23/20 [History Last Taken 08/24/21] nystatin 100,000 unit/gram topical powder 1 applic topical Q8H PRN Skin Irritation 07/30/21 [History Last Taken Unknown] furosemide 20 mg tablet 60 mg (3 x 20 mg) PO DAILY #0 tabs 08/14/21 [Rx Last Taken 04/16/23] apixaban 5 mg tablet (Eliquis) 5 mg PO BID 09/30/21 [History Last Taken 08/22/23] divalproex 500 mg tablet,delayed release (Depakote) 500 mg PO BID 09/30/21 [History Last Taken 04/16/23] halobetasol propionate 0.05 % topical cream 0.05 applic topical BID 11/03/21 [History Last Taken 04/16/23] d-mannose 500 mg capsule 1,000 mg PO BID 12/05/21 [History Last Taken 04/16/23] polyethylene glycol 3350 17 gram oral powder packet (Miralax) 17 g PO Q24H PRN Constipation 06/15/22 [History Last Taken Unknown] duloxetine 60 mg capsule,delayed release (Cymbalta) 60 mg PO DAILY 03/19/23 [History Last Taken 04/16/23] famotidine 40 mg tablet 40 mg PO QHS 03/19/23 [History Last Taken 04/15/23] ferrous sulfate 325 mg (65 mg iron) tablet (Feosol) 325 mg PO DAILY 03/19/23 [History Last Taken 04/16/23] hydrocodone 7.5 mg-acetaminophen 325 mg tablet 1 tab PO Q12H PRN pain 03/19/23 [History Last Taken Unknown] albuterol sulfate 2.5 mg/3 mL (0.083 %) solution for nebulization 2.5 mg inhalation Q2H PRN Dyspnea, wheezing 04/16/23 [History Last Taken Unknown] omeprazole 40 mg capsule,delayed release 40 mg PO DAILY 04/16/23 [History Last Taken 04/16/23] ondansetron HCl 8 mg tablet 8 mg PO Q8H PRN Nausea 04/16/23 [History Last Taken Unknown] oxybutynin chloride 5 mg tablet,extended release 24 hr 5 mg PO DAILY OVERACTIVE BLADDER 04/16/23 [History Last Taken 04/16/23] phenazopyridine 200 mg tablet (Pyridium) 200 mg PO Q8H PRN Bladder Spasms 04/16/23 [History Last Taken Unknown] acetaminophen 325 mg tablet 650 mg PO Q4H PRN pain 07/31/23 [History Last Taken Unknown] albuterol sulfate 90 mcg/actuation aerosol inhaler 2 puff inhalation Q4-6H PRN wheezing 07/31/23 [History Last Taken Unknown] duloxetine 30 mg capsule,delayed release 30 mg PO DAILY 07/31/23 [History Last Taken Unknown] guaifenesin 100 mg/5 mL oral liquid 200 mg PO Q4H PRN cough 07/31/23 [History Last Taken Unknown] vibegron 75 mg tablet 75 mg PO DAILY 07/31/23 [History Last Taken Unknown] cephalexin 250 mg capsule 250 mg PO QHS uti preventative 08/25/23 [History Last Taken Unknown] Allergy/AdvReac Type Severity Reaction Status Date / Time ampicillin [From Unasyn] Allergy Severe Blisters Verified 09/30/23 17:40 on tongue /throat difficulty breathing sore tongue/ warfarin sodium Allergy Severe Low red Verified 09/30/23 17:40 [From Coumadin] blood cells Family History Father Colon cancer Hypertension Mother Hypertension Surgical History H/O cardiac catheterization History of carpal tunnel surgery History of cholecystectomy History of cystoscopy History of embolic filter insertion History of embolic filter insertion History of gastric bypass History of hysterectomy Hx of cystoscopy Hx of cystoscopy S/P hysterectomy Total knee replacement status Social History housing: assisted living facility Smoking Status: Never smoker alcohol intake: current alcohol intake frequency: holidays/special occasions only substance use type: does not use what type of physical activity do you participate in: walking and aerobics frequency: 1-2 times per week ROS ROS ED ROS Narrative Generalized weakness. Shortness of breath. Review of Systems ROS Unobtainable: Denies due to encephalopathy Constitutional Constitutional ED: Denies chills or fever(s) Eyes Eyes: Denies blurry vision ENT ENT ED: Denies ear pain Cardiovascular Cardiovascular: Denies chest pain Respiratory/Chest Respiratory/Chest: Denies cough or dyspnea Gastrointestinal Gastrointestinal: Denies abdominal pain, constipation, diarrhea, melena, nausea or vomiting Genitourinary Genitourinary ED: Denies dysuria or hematuria Musculoskeletal Musculoskeletal: Denies arthralgias Integumentary Denies abscess Neurologic Neurologic: Denies headache(s) Psychiatric Psychiatric: Denies anxiety Endocrine Endocrinology: Denies cold intolerance Hematologic/Lymphatic Hematologic/Lymphatic: Reports none Allergic/Immunologic Allergic/Immunologic ED: Denies mouth swelling, tongue swelling or urticaria EXAM Physical Exam Narrative Exam Narrative: Signs [id number] female sitting upright in bed. On 3 L she is 94%. Afebrile. Does not look septic or toxic. Family member bedside. HEENT exam unremarkable. Neck nontender. Lungs clear to auscultation bilaterally. Heart regular rhythm rate about 70. Chest wall nontender. Abdomen soft nontender. Moving all 4 extremities. Calves are nontender. She does have trace edema both lower extremities. It is pitting. Neurologically she is awake alert no focal motor deficits. Answering questions and following commands. Const Vital Signs: 09/30/23 18:03 09/30/23 18:26 09/30/23 19:45 Temperature 98 F Temperature Source Oral Pulse Rate 70 Respiratory Rate 18 Respiratory Effort Normal Non-Labored Respiratory Pattern Normal Blood Pressure 119/58 L Blood Pressure Mean 78 Pulse Ox 94 Oxygen Delivery Method Nasal Cannula Nasal Cannula Oxygen Flow Rate (L/min) 3 3 09/30/23 19:09 09/30/23 20:09 09/30/23 23:00 Temperature 98.0 F 98.6 F 98.1 F Temperature Source Temporal Oral Temporal Pulse Rate 70 78 78 Respiratory Rate 16 16 16 Respiratory Effort Respiratory Pattern Blood Pressure 132/60 H 119/60 120/61 Blood Pressure Mean 84 79 80 Pulse Ox 98 98 98 Oxygen Delivery Method Nasal Cannula Nasal Cannula Nasal Cannula Oxygen Flow Rate (L/min) 3 2 2 09/30/23 21:00 09/30/23 22:00 Temperature 98.6 F 98.1 F Temperature Source Temporal Temporal Pulse Rate 78 74 Respiratory Rate 29 H 22 H Respiratory Effort Respiratory Pattern Blood Pressure 123/60 H 124/81 H Blood Pressure Mean 81 95 Pulse Ox 92 96 Oxygen Delivery Method Room Air Nasal Cannula Oxygen Flow Rate (L/min) 3 Positive well nourished, well developed and obese; Negative for cachectic, contractures or unkempt General Appearance ED: well developed and NAD; Negative for unkempt, cachectic, contractures, cyanotic, diaphoretic or pallor Nutritional Appearance: obese; Negative for cachectic HEENT Reports moist mucous membranes Negative for trauma or tenderness Eyes PERRL and EOMs intact bilaterally General Eye ED: Negative for pale conjunctiva, scleral icterus or other Neck no lymphadenopathy, supple and no JVD General: Negative for tenderness Lymph Lymphatic: Negative for other Chest Wall inspection of chest normal and palpation of chest normal Chest: Negative for other Resp normal respiratory effort and clear to auscultation bilaterally Effort and Inspection: Negative for retractions Auscultation: Negative for rales, rhonchi, wheezes or diminished lung sounds Cardio regular rate, regular rhythm, S1 normal heart sound, S2 normal heart sound and no murmurs Palpation: Negative for palpable S3 or palpable S4 Rate: Negative for bradycardia or tachycardic Rhythm: Negative for abnormal rhythm GI normal to inspection, nondistended, normoactive bowel sounds, non-tender, non-distended and no masses Inspection: Negative for abdominal distention Auscultation: normoactive bowel sounds Palpation: soft; Negative for tender or guarding Back/Spine no CVA tenderness General Back: Negative for CVA tenderness Cervical Spine: Negative for cervical spine tenderness Thoracic Spine / Upper Back: Negative for thoracic spinal tenderness Extremity Negative for normal to inspection General Extremety ED: Yes edema; Negative for tenderness General Extremity: edema Neuro oriented x3 and CN's II-XII intact bilaterally Sensorium / Orientation: alert; Negative for orientation impaired, lethargic or stuporous Motor Exam: strength 5/5 throughout; Negative for general weakness or strength abnormal Psych mental status grossly normal Appearance: Negative for unkempt Attitude: No agitated Mood & Affect: Negative for depressed, anxious or tearful Skin no rashes or lesions noted and no wounds General Skin Exam: Negative for jaundice or pallor Lesions: No lesion noted Rashes: No rashes noted Trauma: Negative for abrasion Wounds: Negative for wounds noted MDM MDM MDM Narrative Medical decision making narrative: 78-year-old female from assisted living with exertional shortness of breath. Generalized weakness. This may be from CHF versus other etiologies. She is on Eliquis I do not think is a PE. Screening labs to be obtained. Multiple repeat exams unchanged. We do not have a specific cause of the lady's hypoxia. It could be underlying lung disease with chronic changes on the chest x-ray. We are still awaiting the CTA result. I reviewed that I do not see any obvious pneumonia but. She is already on blood thinner Eliquis. I have already spoken to the hospitalist he will admit the patient. He did vomit start the patient on doxycycline in case she had an underlying atypical pneumonia and do the chest x-ray. History & Record Review Discussion w/independent historian: Family Additional record(s) reviewed:: Prior inpatient record, Prior outpatient record, Prior ED visit and Prior labs Lab Data Attestation: I reviewed the patient's lab results. Lab results narrative: CBC shows a white count 4.7. H&H 11.9 and 37. Platelets 221. Electrolytes show sodium 134. Gap 6. BUN 25 creatinine 0.7. Glucose 83. Troponin is 8. And BNP is 51. Urinalysis is positive for nitrates but no white or red cells. No bacteria. A culture will be sent. But this does not show any signs of infection other than the nitrates. Labs: Laboratory Results - last 24 hr 09/30/23 09/30/23 09/30/23 19:40 19:59 22:07 WBC 4.7 RBC 3.59 L Hgb 11.9 L Hct 37.6 MCV 104.7 H MCH 33.1 H MCHC 31.6 L RDW Std Deviation 49.2 H RDW Coeff of Chani 12.9 Plt Count 221 MPV 9.5 Immature Gran % (Auto) 0.400 Neut % (Auto) 62.2 Lymph % (Auto) 20.9 [place] % (Auto) 11.4 H Eos % (Auto) 3.6 Baso % (Auto) 1.5 H Absolute Neuts (auto) 3.0 Absolute Lymphs (auto) 0.99 Nucleated RBC % 0 Sodium 134 L Potassium 4.8 Chloride 107 Carbon Dioxide 21.0 Anion Gap 6 BUN 25 H Creatinine 0.78 Estim Creat Clear Calc 81.55 Est GFR (MDRD) Af Amer 92 Est GFR (MDRD) Non-Af 76 BUN/Creatinine Ratio 32.1 H Glucose 83 Calcium 8.4 L Troponin I High Sens 8 9 B-Natriuretic Peptide 51.5 Urine Color SEE COMMENT BELOW Urine Clarity Clear Urine pH 5.0 Ur Specific [place] 1.015 Urine Protein 15 H Urine Glucose (UA) Normal Urine Ketones 5 H Urine Occult Blood Negative Urine Nitrite Positive H Urine Bilirubin 6 H Urine Urobilinogen 8 H Ur Leukocyte Esterase Negative Urine RBC 0 SEEN Urine WBC 0 SEEN Ur Squamous Epith Cells 0-5 SEEN Urine Bacteria 0 SEEN Urine Mucus 0 SEEN Radiography Chest X-Ray - ED: 1 View, Read by ED Physician, Heart, Mediastinum, Bony Structures and Chronic Changes Diagnostic Testing: Clinical Impression(s) from Imaging Studies Chest X-Ray 09/30/23 19:38 IMPRESSION: Hazy opacification left lower lung which may represent typical or atypical infection in the appropriate setting. Also mild peribronchial thickening which can be seen with acute or chronic bronchitis/bronchiolitis. CT could further evaluate as clinically indicated. Electronically Signed: Chris Villareal MD at 20:19 EDT , Chest x-ray, portable, single view shows normal cardiac silhouette. Possible infectious process in the lungs such as a bronchiolitis. Or bronchitis. No obvious pneumonia. No effusions. Does not look like pulmonary edema. Interpreted both by myself and the radiologist. Rhythm Strip Rhythm Strip: Sinus Rhythm Rate: 72 Ectopy: None EKG Initial EKG: Attestation: I personally reviewed and interpreted this EKG as follows: Interpretation: Sinus Rhythm and No Acute Injury Pattern Comments: Normal sinus rhythm rate 72 no acute signs of AK or ischemia. Discharge Plan Dx/Rx/DC Orders Clinical Impression: Acute dyspnea, Hypoxia Disposition Disposition: Acute Care Hospital [facility]
[2023-09-30 19:09] VITALS: BP 132/60; PULSE 70; RESP 16; TEMP 36.7; O2SAT 98
--- NOTE | 2023-09-30 19:38 | RAD_ITS ---
INDICATION: chest pain EXAMINATION/TECHNIQUE: X-RAY - XR Chest 1 View COMPARISON: June 23, 2023. FINDINGS: LINES/DEVICES: None. LUNGS: Mild bilateral peribronchial thickening. Left costophrenic angle atelectasis or scarring. Hazy patchy opacification in the left lower lung. No right lung consolidation. No florid edema or effusion. No pneumothorax. MEDIASTINUM AND CARDIOVASCULAR STRUCTURES: Cardiac silhouette not enlarged. Aortic atherosclerosis BONES AND SOFT TISSUES: Unremarkable. RAD/Chest 1 View (Portable) IMPRESSION: Hazy opacification left lower lung which may represent typical or atypical infection in the appropriate setting. Also mild peribronchial thickening which can be seen with acute or chronic bronchitis/bronchiolitis. CT could further evaluate as clinically indicated. Electronically Signed: Chris Villareal MD at 20:19 EDT ,
[2023-09-30 19:51] LABS: Absolute Lymphocyte Count 0.99 X10^3/uL (0.83-4.51); Basophil# 0.07 X10^3/uL; Basophil% 1.5 % (0-1); Eosinophil# 0.17 X10^3/uL; Eosinophils% 3.6 % (0-5); Hematocrit 37.6 % (37-47); Hemoglobin 11.9 g/dL (12.0-15.0); Lymphocyte # 0.99 X10^3/ul (0.83-4.51); Lymphocyte % 20.9 % (19-41); Mean Corp Hgb Conc 31.6 g/dL (32-36); Mean Corpuscular Hgb 33.1 pg (27.0-32.0); Mean Corpuscular Volume 104.7 fL (81-99); Mean Platelet Vol. 9.5 fl (6.2-12.0); Monocyte# 0.54 X10^3/uL; Monocyte% 11.4 % (0-10); NRBC Flagged by Analyzer 0 % (0-5); Neutrophil # 2.95 X10^3/uL (2.7-7.7); Neutrophil % 62.2 % (47-70); Platelet Count 221 K/mm3 (150-450); RBC Distribution Width CV 12.9 % (11.6-14.6); RBC Distribution Width SD 49.2 fl (35.1-43.9); Red Blood Count 3.59 M/mm3 (4.2-5.4); White Blood Count 4.7 K/mm3 (4.4-11.0)
[2023-09-30 20:05] LABS: Bacteria 0 SEEN /hpf (None Seen); Mucous, Urine 0 SEEN /hpf (<or=2+); Red Blood Cells-Urine 0 SEEN /hpf (0-5); White Blood Cells 0 SEEN /hpf (0-5)
[2023-09-30 20:06] LABS: Glucose, Dipstick Normal (Normal); Ketone-Dipstick 5 mg/dl (Negative); Leukocyte Esterase-Dipstick Negative /ul (Negative); Nitrite-Dipstick Positive (Negative); Occult Blood-Urine Negative /ul (Negative); Protein-Dipstick 15 mg/dl (Negative); Specific Gravity, Urine 1.015 (1.002-1.030); Urine Clarity Clear (Clear); Urine Urobilinogen 8 mg/dl (Normal)
[2023-09-30 20:09] VITALS: BP 119/60; PULSE 78; RESP 16; TEMP 37; O2SAT 98
[2023-09-30 20:09] LABS: Anion Gap 6 (5-15); BUN 25 mg/dL (7-18); BUN/Creat Ratio 32.1 RATIO (10-20); Calcium,Total 8.4 mg/dL (8.5-10.1); Chloride 107 mmol/L (98-107); Creatinine, Serum 0.78 mg/dL (0.55-1.02); EST Glomerular Filtration Rate 76 mL/min (>60); Est Glom Filt Rate - Afr Amer 92 mL/min (>60); Estimated Creatinine Clearance 81.55 ml/min; Glucose 83 mg/dL (74-106); Potassium 4.8 mmol/L (3.5-5.1); Sodium Level 134 mmol/L (136-145); Troponin-I HS (w/2H Reflex) 8 pg/mL (3.0-54.0)
[2023-09-30 20:12] LABS: BNP,B-Type NATRIURETIC PEPTIDE 51.5 pg/mL (0-100)
[2023-09-30 20:22] LABS: Color, Urine SEE COMMENT BELOW (Yellow); Urine Bilirubin Dipstick 6 mg/dL (Negative)
[2023-09-30 20:26] LABS: Squamous Epithelial Cells - UA 0-5 SEEN /hpf (5-10)
[2023-09-30 21:00] VITALS: BP 123/60; PULSE 78; RESP 29; TEMP 37; O2SAT 92
[2023-09-30 21:45] LABS: Reflex Troponin-HS? (from REC) Y
[2023-09-30 22:00] VITALS: BP 124/81; PULSE 74; RESP 22; TEMP 36.7; O2SAT 96
--- NOTE | 2023-09-30 22:08 | CT_ITS ---
STUDY: CTA CHEST REASON FOR EXAM: Female, 78 years old. hypoxia RADIATION DOSAGE (If Supplied By Facility): CTDIvol = ( 20.98 ) mGy, DLP = ( 458.83 ) mGycm TECHNIQUE: The examination was performed with the intravenous administration of IV 100mL [id number]-370. Post-processing of the angiographic images was performed, with multiplanar reformation and 3D reconstruction. Individualized dose optimization techniques were used for this CT. COMPARISON: None. FINDINGS: Unremarkable thyroid. Normal enhancement of the bilateral pulmonary arteries. There is no demonstrated pulmonary embolism. No main pulmonary arterial enlargement. Aortic atherosclerosis without ectasia or dissection. No cardiomegaly or pericardial effusion. Mitral annular calcifications. Mild calcified coronary atherosclerosis. Scattered mediastinal lymph nodes up to 1.0 cm in short axis. Additional subcentimeter bilateral hilar reactive lymph nodes are present. Unremarkable esophagus. Gastric bypass changes with small hiatal hernia. No endobronchial lesion. No focal consolidation, effusion, pneumothorax. Scattered mosaic groundglass attenuation within the lungs with trace smooth nodular preseptal edema. Normal chest wall structures. Normal osseous structures. Severe bilateral glenohumeral osteoarthritis. Midthoracic intraosseous hemangioma. CT/CTA Chest W/WO Contrast IMPRESSION: No pulmonary embolism or consolidative airspace disease. Trace interstitial edema with mild mosaic alveolar edema or atelectasis. Gastric bypass surgical change with small hiatal hernia. Electronically Signed: Chris Villareal MD at 23:45 EDT ,
[2023-09-30 22:29] LABS: Troponin-I HS 9 pg/mL (3.0-54.0)
[2023-09-30 23:00] VITALS: BP 120/61; PULSE 78; RESP 16; TEMP 36.7; O2SAT 98
--- NOTE | 2023-09-30 23:37 | PCM.HP.STD ---
[facility] - General General Date of Admission: 09/30/23 Date of Service: 09/30/23 Chief Complaint: SOB and Generalized Weakness. HPI Narrative ADAM NIX, is a 78 F with a past medical history of essential hypertension, hyperlipidemia, morbid obesity; with BMI of 49.1 this admission, obstructive sleep apnea, history of DVT/pulmonary embolism; on Eliquis, history of IVC filter, history of gastric bypass, peripheral neuropathy, RLS, PCOS, NANCI, history of renal calculi, history of GERD with hiatal hernia, history of GI bleed, depression with anxiety, osteoarthritis; status post total knee replacement and history of UTI's; on prophylactic Keflex nightly who presents to [facility] ER complaining of shortness of breath and generalized weakness. Ms. Nix reports her symptoms began approximately 7 days prior to admission with a gradual onset of generalized weakness and dyspnea on exertion that progressed to shortness of breath at rest while at her assisted living facility. She denies being on home oxygen. She also denies associated fever, chills, nausea, vomiting, diarrhea, constipation or chest pain. In the ER her chest x-ray was positive for evidence of hazy opacification of the left lower lobe consistent with atypical pneumonia and superimposed bronchitis complicated by clinical evidence of acute respiratory insufficiency and she was then admitted to the general medical floor for ongoing care for stay that is expected to be greater than 48 hours. [facility] Medical History (Updated 10/01/23 @ 02:[address] Marlon Shay, ) Anxiety and depression Arthritis Back pain Bladder disease Carpal tunnel syndrome Cataracts, both eyes Chronic anticoagulation Chronic neuropathic pain Chronic pain following surgery or procedure Chronic UTI Closed left arm fracture Cystitis Depression Diabetes Diabetic neuropathy associated with type 2 diabetes mellitus DM II (diabetes mellitus, type II), controlled Facet arthropathy, lumbar FHx: cholecystectomy GERD (gastroesophageal reflux disease) GERD (gastroesophageal reflux disease) GI bleed Hematoma Hiatal hernia High cholesterol History of DVT (deep vein thrombosis) History of edema History of gallstones History of pain when walking History of stress test HLD (hyperlipidemia) Hx of peripheral neuropathy Hydronephrosis 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 Injury of head and neck Kidney stones Left shoulder pain Low iron Morbid obesity with BMI of 45.0-49.9, adult Neuropathy Non-smoker Non-smoker Normocytic anemia ROXIE (obstructive sleep apnea) Osteoarthritis Polycystic ovaries Primary osteoarthritis, left shoulder Pulmonary embolism Restless legs Segmental and somatic dysfunction of cervical region Segmental and somatic dysfunction of lumbar region Segmental and somatic dysfunction of pelvic region Segmental and somatic dysfunction of thoracic region Shortness of breath on exertion Urinary tract infection Uses wheelchair Walker as ambulation aid Wears dentures Wears hearing aid Home Medications cholecalciferol (vitamin D3) 25 mcg (1,000 unit) tablet (Vitamin D3) 1,000 unit PO DAILY vitamin 12/29/15 [History Last Taken 04/16/23] pravastatin 40 mg tablet 40 mg PO QHS cholesterol 08/05/18 [History Last Taken 04/15/23] fluticasone propionate 50 mcg/actuation nasal spray,suspension 2 spray NASAL DAILY allergies 03/18/19 [History Last Taken 04/16/23] primidone 50 mg tablet 100 mg PO TID tremors 03/18/19 [History Last Taken 04/16/23] simethicone 80 mg chewable tablet 80 mg PO TIDCM indigestion 03/18/19 [History Last Taken 04/16/23] bupropion HCl 150 mg 24 hr tablet, extended release 150 mg PO DAILY DEPRESSION 08/09/20 [History Last Taken 04/16/23] aluminum-mag hydroxide-simethicone 400 mg-400 mg-40 mg/5 mL oral susp 30 ml PO Q4H PRN GI DISTRESS 08/20/20 [History Last Taken 10/22/20] ascorbic acid (vitamin C) 500 mg tablet 500 mg PO DAILY supplement 09/28/20 [History Last Taken 04/16/23] cyanocobalamin (vitamin B-12) 1,000 mcg/mL injection solution 1,000 mcg IM QMONTH supplement 10/23/20 [History Last Taken 08/24/21] nystatin 100,000 unit/gram topical powder 1 applic topical Q8H PRN Skin Irritation 07/30/21 [History Last Taken Unknown] furosemide 20 mg tablet 60 mg (3 x 20 mg) PO DAILY water pill #0 tabs 08/14/21 [Rx Last Taken 04/16/23] apixaban 5 mg tablet (Eliquis) 5 mg PO BID blood thinner 09/30/21 [History Last Taken 08/22/23] divalproex 500 mg tablet,delayed release (Depakote) 500 mg PO BID see 09/30/21 [History Last Taken 04/16/23] halobetasol propionate 0.05 % topical cream 0.05 applic topical BID 11/03/21 [History Last Taken 04/16/23] d-mannose 500 mg capsule 1,000 mg PO BID norman rosas 12/05/21 [History Last Taken 04/16/23] polyethylene glycol 3350 17 gram oral powder packet (Miralax) 17 g PO Q24H PRN Constipation 12/05/21 [History Last Taken Unknown] duloxetine 60 mg capsule,delayed release (Cymbalta) 60 mg PO DAILY depression 03/19/23 [History Last Taken 04/16/23] famotidine 40 mg tablet 40 mg PO QHS stomach 03/19/23 [History Last Taken 04/15/23] ferrous sulfate 325 mg (65 mg iron) tablet (Feosol) 325 mg PO DAILY iron 03/19/23 [History Last Taken 04/16/23] hydrocodone 7.5 mg-acetaminophen 325 mg tablet 1 tab PO Q12H PRN pain 03/19/23 [History Last Taken Unknown] albuterol sulfate 2.5 mg/3 mL (0.083 %) solution for nebulization 2.5 mg inhalation Q2H PRN Dyspnea, wheezing 04/16/23 [History Last Taken Unknown] omeprazole 40 mg capsule,delayed release 40 mg PO DAILY GERD 04/16/23 [History Last Taken 04/16/23] ondansetron HCl 8 mg tablet 8 mg PO Q8H PRN Nausea 04/16/23 [History Last Taken Unknown] oxybutynin chloride 5 mg tablet,extended release 24 hr 5 mg PO DAILY OVERACTIVE BLADDER 04/16/23 [History Last Taken 04/16/23] phenazopyridine 200 mg tablet (Pyridium) 200 mg PO Q8H PRN Bladder Spasms 04/16/23 [History Last Taken Unknown] acetaminophen 325 mg tablet 650 mg PO Q4H PRN pain 07/31/23 [History Last Taken Unknown] albuterol sulfate 90 mcg/actuation aerosol inhaler 2 puff inhalation Q4H PRN wheezing 07/31/23 [History Last Taken Unknown] duloxetine 30 mg capsule,delayed release 30 mg PO DAILY depression 07/31/23 [History Last Taken Unknown] guaifenesin 100 mg/5 mL oral liquid 200 mg PO Q4H PRN cough 07/31/23 [History Last Taken Unknown] cephalexin 250 mg capsule 250 mg PO QHS uti preventative 08/25/23 [History Last Taken Unknown] fluticasone propionate 50 mcg/actuation nasal spray,suspension (24 Hour Allergy Relief) 1 spray intranasal DAILY PRN allergy symptoms 09/30/23 [History Last Taken Unknown] hydrocodone-acetaminophen 5-325mg 5mg-325mg 1 tab PO BID PRN PRN pain 09/30/23 [History Last Taken Unknown] magnesium hydroxide 400 mg/5 mL oral suspension (Dulcolax (magnesium hydroxide)) 30 ml PO DAILY PRN constipation 09/30/23 [History Last Taken Unknown] pregabalin 75 mg capsule (Lyrica) 75 mg PO QHS pain 09/30/23 [History Last Taken Unknown] vibegron 75 mg tablet (Gemtesa) 75 mg PO DAILY see md 09/30/23 [History Last Taken Unknown] Allergy/AdvReac Type Severity Reaction Status Date / Time ampicillin [From Unasyn] Allergy Severe Blisters Verified 09/30/23 17:40 on tongue /throat difficulty breathing sore tongue/ warfarin sodium Allergy Severe Low red Verified 09/30/23 17:40 [From Coumadin] blood cells Family History Father Colon cancer Hypertension Mother Hypertension Surgical History H/O cardiac catheterization History of carpal tunnel surgery History of cholecystectomy History of cystoscopy History of embolic filter insertion History of embolic filter insertion History of gastric bypass History of hysterectomy Hx of cystoscopy Hx of cystoscopy S/P hysterectomy Total knee replacement status Social History housing: assisted living facility Smoking Status: Never smoker alcohol intake: current alcohol intake frequency: holidays/special occasions only substance use type: does not use what type of physical activity do you participate in: walking and aerobics frequency: 1-2 times per week ROS ROS Narrative Review of systems: General: Patient admits to generalized weakness and shortness of breath as per HPI. She denies fever or chills. HENT: Denies headache, denies stuffy nose, denies sore throat EYES: Denies changes in vision or discharge from eyes. Resp: Patient admits to dyspnea on exertion that progressed to shortness of breath at rest with a nonproductive cough as per HPI. Cardiac: Denies chest pain or palpitations. GI: Denies abdominal pain, denies changes in bowel, denies nausea or vomiting. : Denies changes in urination Extremity: Denies swelling Musculoskeletal: Patient denies arthralgias or myalgias. Neuro: Patient denies headache, paresthesias or focal neurologic deficits. Heme: Denies any bleeding or bruising Skin: Denies rashes Psychiatric: Patient admits to anxiety. No complaints voiced related to uncontrolled depression. Endocrine: No polyuria, polydipsia or polyphagia. The rest of the 14 point ROS was negative except for positives in HPI. Vital Signs Vital Signs Vital Signs: 09/30/23 18:03 09/30/23 18:26 09/30/23 19:45 Temperature 98 F Temperature Source Oral Pulse Rate 70 Respiratory Rate 18 Respiratory Effort Normal Non-Labored Respiratory Pattern Normal Blood Pressure 119/58 L Blood Pressure Mean 78 Pulse Ox 94 Oxygen Delivery Method Nasal Cannula Nasal Cannula Oxygen Flow Rate (L/min) 3 3 09/30/23 19:09 09/30/23 20:09 09/30/23 23:00 Temperature 98.0 F 98.6 F 98.1 F Temperature Source Temporal Oral Temporal Pulse Rate 70 78 78 Respiratory Rate 16 16 16 Respiratory Effort Respiratory Pattern Blood Pressure 132/60 H 119/60 120/61 Blood Pressure Mean 84 79 80 Pulse Ox 98 98 98 Oxygen Delivery Method Nasal Cannula Nasal Cannula Nasal Cannula Oxygen Flow Rate (L/min) 3 2 2 09/30/23 21:00 09/30/23 22:00 Temperature 98.6 F 98.1 F Temperature Source Temporal Temporal Pulse Rate 78 74 Respiratory Rate 29 H 22 H Respiratory Effort Respiratory Pattern Blood Pressure 123/60 H 124/81 H Blood Pressure Mean 81 95 Pulse Ox 92 96 Oxygen Delivery Method Room Air Nasal Cannula Oxygen Flow Rate (L/min) 3 Weight Weight: 294 lb 15.656 oz Body Mass Index (BMI) 49.1 Physical Exam Const alert, oriented x3 and no apparent distress Constitutional Narrative: Patient is morbidly obese and has a chronically ill appearance. General Appearance: cooperative HEENT normocephalic, head/scalp atraumatic, hearing grossly normal bilaterally and moist oral mucous membranes Eyes PERRL and EOMs intact bilaterally Neck no lymphadenopathy and supple Resp Resp Narrative: Decreased breath sounds over the left lower lobe with scattered rhonchi. Auscultation: rhonchi Cardio regular rate and regular rhythm GI normal to inspection, nondistended, normoactive bowel sounds, soft to palpation, non-tender and non-distended GI Narrative: Morbidly obese. Extremity full ROM Extremity Narrative: Patient has mild bilateral lower extremity edema. Skin Skin Narrative: Patient has no evidence of rash, jaundice or abscess. Neuro oriented x3, CN's II-XII intact bilaterally, moves all extremities and no focal motor deficits Sensorium / Orientation: awake, alert, oriented to person, oriented to place and oriented to time Speech: speech normal Psych Mood & Affect: anxious Results Medical Records Data Attestation: I reviewed the patient's medical records Lab / Micro Data Attestation: I reviewed the patient's lab results. 09/30/23 19:40 09/30/23 19:40 Labs: Laboratory Results - last 24 hr 09/30/23 19:40: WBC 4.7, RBC 3.59 L, Hgb 11.9 L, Hct 37.6, MCV 104.7 H, MCH 33.1 H, MCHC 31.6 L, RDW Std Deviation 49.2 H, RDW Coeff of [place] 12.9, Plt Count 221, MPV 9.5, Immature Gran % (Auto) 0.400, Neut % (Auto) 62.2, Lymph % (Auto) 20.9, [place] % (Auto) 11.4 H, Eos % (Auto) 3.6, Baso % (Auto) 1.5 H, Absolute Neuts (auto) 3.0, Absolute Lymphs (auto) 0.99, Nucleated RBC % 0, Sodium 134 L, Potassium 4.8, Chloride 107, Carbon Dioxide 21.0, Anion Gap 6, BUN 25 H, Creatinine 0.78, Estim Creat Clear Calc 81.55, Est GFR (MDRD) Af Amer 92, Est GFR (MDRD) Non-Af 76, BUN/Creatinine Ratio 32.1 H, Glucose 83, Calcium 8.4 L, Troponin I High Sens 8, B-Natriuretic Peptide 51.5 09/30/23 19:59: Urine Color SEE COMMENT BELOW, Urine Clarity Clear, Urine pH 5.0, Ur Specific [place] 1.015, Urine Protein 15 H, Urine Glucose (UA) Normal, Urine Ketones 5 H, Urine Occult Blood Negative, Urine Nitrite Positive H, Urine Bilirubin 6 H, Urine Urobilinogen 8 H, Ur Leukocyte Esterase Negative, Urine RBC 0 SEEN, Urine WBC 0 SEEN, Ur Squamous Epith Cells 0-5 SEEN, Urine Bacteria 0 SEEN, Urine Mucus 0 SEEN 09/30/23 22:07: Troponin I High Sens 9 Micro: Microbiology 09/30/23 22:25 Mucosa - Nose SARS-CoV-2, Influenza & RSV (PCR) - Final Rhythm Strip Rhythm Strip: Sinus Rhythm Rate: 72 Ectopy: None Imaging Radiology Impression Chest X-Ray 09/30/23 19:38 IMPRESSION: Hazy opacification left lower lung which may represent typical or atypical infection in the appropriate setting. Also mild peribronchial thickening which can be seen with acute or chronic bronchitis/bronchiolitis. CT could further evaluate as clinically indicated. Electronically Signed: Chris Villareal MD at 20:19 EDT , Assessment & Plan Assessment/Plan (1) Atypical pneumonia: (2) Bronchitis: (3) Respiratory insufficiency: (4) Morbid obesity with BMI of 45.0-49.9, adult: PLAN: Plan 1. Atypical pneumonia and superimposed bronchitis evident on admission chest x-ray - Admit to general medical floor. Continue IV antibiotics begun in the ER and await culture and sensitivity data. CT scan of chest is also pending to confirm diagnosis. Start scheduled Mucinex twice daily. Give Tylenol as needed pain or fever. 2. Respiratory insufficiency due to #1 - Wean supplemental oxygen as tolerated. 3. Morbid obesity; with BMI of 49.1 this admission plus obstructive sleep apnea compounding #1 & #2 - Weight loss will be recommended. Continue nocturnal CPAP. Check TSH. 4. History of DVT/pulmonary embolism; on Eliquis - Resume Eliquis as previous. 5. Essential hypertension - Continue home regimen plus give as needed IV hydralazine for systolic blood pressure greater than 160 mmHg. 6. Hyperlipidemia - Resume statin. 7. History of IVC filter - Noted. 8. History of gastric bypass - Noted. 9. Peripheral neuropathy - Stable. 10. RLS - Continue current treatment. 11. History of PCOS - Noted. 12. NANCI - Stable with hemoglobin of 11.9 g/dL present on admission. 13. History of renal calculi - Noted with no evidence of recurrence. 14. History of GERD with hiatal hernia and history of GI bleed - Resume Protonix as previous. 15. Depression with anxiety - Continue home medications plus give as needed Xanax for breakthrough symptoms. 16. Osteoarthritis; status post total knee replacement - Stable. Give Tylenol as needed. 17. History of UTI's; on prophylactic Keflex nightly - Noted. Hold Keflex for now with patient on IV antibiotics for #1. 18. DVT prophylaxis - Patient already on Eliquis for #4 which will be continued. Total time: Approximately 55 minutes. Charges/Coding Visit Charges Inpatient E&M: 09272 Init Hosp L2
[2023-10-01] VITALS (13 sets, daily range): BP systolic 101–126; BP diastolic 53–89; PULSE 68–89; RESP 15–19; TEMP 36.2–37.2; O2SAT 93–97; BMI 48.0
[2023-10-01] MEDS: Morphine 2 MG/ML Syringe IV (00:51)
[2023-10-01 02:26] LABS: Valproic Acid (Depakene) Level 23 ug/mL (50-100)
--- NOTE | 2023-10-01 08:27 | EX.PCM.CONCC ---
Assessment & Plan Assessment/Plan (1) Hypoxia: PLAN: Plan RECOMMENDATIONS: 1. Wean oxygen to maintain saturations at or above 90%. 2. Okay to discontinue antibiotics from my perspective. 3. Recommend additional gentle diuresis as tolerated by hemodynamics and renal function. 4. Encourage incentive spirometer use and mobilize patient as tolerated. 5. Please call with any additional questions. IMPRESSIONS: 1. Shortness of breath and hypoxemia Most likely related to possible underlying heart failure with preserved ejection fraction with interstitial edema noted on CT imaging, coupled with atelectasis. Low suspicion for underlying pulmonary infectious etiology. Therefore, antibiotics can be discontinued from my perspective. Recommend additional diuresis as tolerated by hemodynamics and renal function. Encourage incentive spirometer use and mobilize patient as tolerated. Continue systemic anticoagulation, given history of VTE. 2. Suspected sleep apnea The patient was referred to the pulmonary medicine office in July 2023 to be evaluated for sleep apnea, but subsequently declined to undergo any additional testing. 3. History of heart failure preserved ejection fraction/generalized weakness and debility/anemia/history of VTE/GERD/obesity Complicates care, management, recovery and prognosis. Continue home medications as indicated. Recommend PT/OT evaluations. This note was generated with Sogou dictation software. It may contain incorrect words, spelling, and punctuation that were not noted in checking the note before signing. HPI Consult Data Date of Consult: 10/01/23 HPI Narrative Reason for Consultation: Shortness of breath HPI Narrative: The patient is a 78-year-old female, with a history as outlined below, who presented to the emergency department on September 29 with generalized weakness and shortness of breath. The patient has a history of heart failure with preserved ejection fraction, frequent UTIs, anemia and history of DVT/PE on systemic anticoagulation. She was recently evaluated in the pulmonary office in July 2023 over concerns of sleep apnea. However, the patient refused to undergo any additional testing. The patient reported that she has been compliant with her home Lasix regimen, but has reported increasing weight gain and lower extremity edema. On presentation to the emergency department, the patient was documented to be afebrile and hemodynamically stable. Laboratory evaluation revealed a normal white blood cell count. Chemistry profile was unremarkable. Urine analysis was positive for nitrites, but negative leukocyte esterase. Urine culture was obtained. COVID, influenza and RSV PCR's were negative. CTA chest showed no evidence for pulmonary embolism. A small hiatal hernia was noted along with trace interstitial edema. The patient was initially placed on antimicrobials over concerns for atypical pneumonia. She was admitted to the medical surgical floor for further management. [facility] Medical History (Updated 10/01/23 @ 02:[address] Marlon Shay, ) Anxiety and depression Arthritis Back pain Bladder disease Carpal tunnel syndrome Cataracts, both eyes Chronic anticoagulation Chronic neuropathic pain Chronic pain following surgery or procedure Chronic UTI Closed left arm fracture Cystitis Depression Diabetes Diabetic neuropathy associated with type 2 diabetes mellitus DM II (diabetes mellitus, type II), controlled Facet arthropathy, lumbar FHx: cholecystectomy GERD (gastroesophageal reflux disease) GERD (gastroesophageal reflux disease) GI bleed Hematoma Hiatal hernia High cholesterol History of DVT (deep vein thrombosis) History of edema History of gallstones History of pain when walking History of stress test HLD (hyperlipidemia) Hx of peripheral neuropathy Hydronephrosis 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 Injury of head and neck Kidney stones Left shoulder pain Low iron Morbid obesity with BMI of 45.0-49.9, adult Neuropathy Non-smoker Non-smoker Normocytic anemia ROXIE (obstructive sleep apnea) Osteoarthritis Polycystic ovaries Primary osteoarthritis, left shoulder Pulmonary embolism Restless legs Segmental and somatic dysfunction of cervical region Segmental and somatic dysfunction of lumbar region Segmental and somatic dysfunction of pelvic region Segmental and somatic dysfunction of thoracic region Shortness of breath on exertion Urinary tract infection Uses wheelchair Walker as ambulation aid Wears dentures Wears hearing aid Home Medications cholecalciferol (vitamin D3) 25 mcg (1,000 unit) tablet (Vitamin D3) 1,000 unit PO DAILY vitamin 12/29/15 [History Last Taken 04/16/23] pravastatin 40 mg tablet 40 mg PO QHS cholesterol 08/05/18 [History Last Taken 04/15/23] fluticasone propionate 50 mcg/actuation nasal spray,suspension 2 spray NASAL DAILY allergies 03/18/19 [History Last Taken 04/16/23] primidone 50 mg tablet 100 mg PO TID tremors 03/18/19 [History Last Taken 04/16/23] simethicone 80 mg chewable tablet 80 mg PO TIDCM indigestion 03/18/19 [History Last Taken 04/16/23] bupropion HCl 150 mg 24 hr tablet, extended release 150 mg PO DAILY DEPRESSION 08/09/20 [History Last Taken 04/16/23] aluminum-mag hydroxide-simethicone 400 mg-400 mg-40 mg/5 mL oral susp 30 ml PO Q4H PRN GI DISTRESS 08/20/20 [History Last Taken 10/22/20] ascorbic acid (vitamin C) 500 mg tablet 500 mg PO DAILY supplement 09/28/20 [History Last Taken 04/16/23] cyanocobalamin (vitamin B-12) 1,000 mcg/mL injection solution 1,000 mcg IM QMONTH supplement 10/23/20 [History Last Taken 08/24/21] nystatin 100,000 unit/gram topical powder 1 applic topical Q8H PRN Skin Irritation 07/30/21 [History Last Taken Unknown] furosemide 20 mg tablet 60 mg (3 x 20 mg) PO DAILY water pill #0 tabs 08/14/21 [Rx Last Taken 04/16/23] apixaban 5 mg tablet (Eliquis) 5 mg PO BID blood thinner 09/30/21 [History Last Taken 08/22/23] divalproex 500 mg tablet,delayed release (Depakote) 500 mg PO BID see 09/30/21 [History Last Taken 04/16/23] halobetasol propionate 0.05 % topical cream 0.05 applic topical BID 11/03/21 [History Last Taken 04/16/23] d-mannose 500 mg capsule 1,000 mg PO BID norman rosas 12/05/21 [History Last Taken 04/16/23] polyethylene glycol 3350 17 gram oral powder packet (Miralax) 17 g PO Q24H PRN Constipation 12/05/21 [History Last Taken Unknown] duloxetine 60 mg capsule,delayed release (Cymbalta) 60 mg PO DAILY depression 03/19/23 [History Last Taken 04/16/23] famotidine 40 mg tablet 40 mg PO QHS stomach 03/19/23 [History Last Taken 04/15/23] ferrous sulfate 325 mg (65 mg iron) tablet (Feosol) 325 mg PO DAILY iron 03/19/23 [History Last Taken 04/16/23] hydrocodone 7.5 mg-acetaminophen 325 mg tablet 1 tab PO Q12H PRN pain 03/19/23 [History Last Taken Unknown] albuterol sulfate 2.5 mg/3 mL (0.083 %) solution for nebulization 2.5 mg inhalation Q2H PRN Dyspnea, wheezing 04/16/23 [History Last Taken Unknown] omeprazole 40 mg capsule,delayed release 40 mg PO DAILY GERD 04/16/23 [History Last Taken 04/16/23] ondansetron HCl 8 mg tablet 8 mg PO Q8H PRN Nausea 04/16/23 [History Last Taken Unknown] oxybutynin chloride 5 mg tablet,extended release 24 hr 5 mg PO DAILY OVERACTIVE BLADDER 04/16/23 [History Last Taken 04/16/23] phenazopyridine 200 mg tablet (Pyridium) 200 mg PO Q8H PRN Bladder Spasms 04/16/23 [History Last Taken Unknown] acetaminophen 325 mg tablet 650 mg PO Q4H PRN pain 07/31/23 [History Last Taken Unknown] albuterol sulfate 90 mcg/actuation aerosol inhaler 2 puff inhalation Q4H PRN wheezing 07/31/23 [History Last Taken Unknown] duloxetine 30 mg capsule,delayed release 30 mg PO DAILY depression 07/31/23 [History Last Taken Unknown] guaifenesin 100 mg/5 mL oral liquid 200 mg PO Q4H PRN cough 07/31/23 [History Last Taken Unknown] cephalexin 250 mg capsule 250 mg PO QHS uti preventative 08/25/23 [History Last Taken Unknown] fluticasone propionate 50 mcg/actuation nasal spray,suspension (24 Hour Allergy Relief) 1 spray intranasal DAILY PRN allergy symptoms 09/30/23 [History Last Taken Unknown] hydrocodone-acetaminophen 5-325mg 5mg-325mg 1 tab PO BID PRN PRN pain 09/30/23 [History Last Taken Unknown] magnesium hydroxide 400 mg/5 mL oral suspension (Dulcolax (magnesium hydroxide)) 30 ml PO DAILY PRN constipation 09/30/23 [History Last Taken Unknown] pregabalin 75 mg capsule (Lyrica) 75 mg PO QHS pain 09/30/23 [History Last Taken Unknown] vibegron 75 mg tablet (Gemtesa) 75 mg PO DAILY see 09/30/23 [History Last Taken Unknown] Allergy/AdvReac Type Severity Reaction Status Date / Time ampicillin [From Unasyn] Allergy Severe Blisters Verified 09/30/23 17:40 on tongue /throat difficulty breathing sore tongue/ warfarin sodium Allergy Severe Low red Verified 09/30/23 17:40 [From Coumadin] blood cells Family History Father Colon cancer Hypertension Mother Hypertension Surgical History H/O cardiac catheterization History of carpal tunnel surgery History of cholecystectomy History of cystoscopy History of embolic filter insertion History of embolic filter insertion History of gastric bypass History of hysterectomy Hx of cystoscopy Hx of cystoscopy S/P hysterectomy Total knee replacement status Social History housing: assisted living facility Smoking Status: Never smoker alcohol intake: current alcohol intake frequency: holidays/special occasions only substance use type: does not use what type of physical activity do you participate in: walking and aerobics frequency: 1-2 times per week ROS ROS Narrative 10 systems reviewed with pertinent positives as noted in the HPI above. Physical Exam Const alert and no apparent distress Constitutional Narrative: Morbidly obese. General Appearance: cooperative HEENT normocephalic and head/scalp atraumatic Eyes PERRL, EOMs intact bilaterally and conjunctivae normal Neck supple General: trachea midline Chest inspection of chest normal Resp normal respiratory effort Auscultation: diminished lung sounds Cardio regular rate and regular rhythm GI normal to inspection, nondistended, normoactive bowel sounds Extremity General Extremity: edema bilateral lower extremity; Negative for clubbing Skin no rashes or lesions noted Neuro CN's II-XII intact bilaterally, moves all extremities and no focal motor deficits Psych Mood & Affect: flat affect Lab / Micro Data 09/30/23 19:40 09/30/23 19:40 Labs: Laboratory Results - last 24 hr 09/30/23 19:40: WBC 4.7, RBC 3.59 L, Hgb 11.9 L, Hct 37.6, MCV 104.7 H, MCH 33.1 H, MCHC 31.6 L, RDW Std Deviation 49.2 H, RDW Coeff of Chani 12.9, Plt Count 221, MPV 9.5, Immature Gran % (Auto) 0.400, Neut % (Auto) 62.2, Lymph % (Auto) 20.9, [place] % (Auto) 11.4 H, Eos % (Auto) 3.6, Baso % (Auto) 1.5 H, Absolute Neuts (auto) 3.0, Absolute Lymphs (auto) 0.99, Nucleated RBC % 0, Sodium 134 L, Potassium 4.8, Chloride 107, Carbon Dioxide 21.0, Anion Gap 6, BUN 25 H, Creatinine 0.78, Estim Creat Clear Calc 81.55, Est GFR (MDRD) Af Amer 92, Est GFR (MDRD) Non-Af 76, BUN/Creatinine Ratio 32.1 H, Glucose 83, Calcium 8.4 L, Troponin I High Sens 8, B-Natriuretic Peptide 51.5 09/30/23 19:59: Urine Color SEE COMMENT BELOW, Urine Clarity Clear, Urine pH 5.0, Ur Specific [place] 1.015, Urine Protein 15 H, Urine Glucose (UA) Normal, Urine Ketones 5 H, Urine Occult Blood Negative, Urine Nitrite Positive H, Urine Bilirubin 6 H, Urine Urobilinogen 8 H, Ur Leukocyte Esterase Negative, Urine RBC 0 SEEN, Urine WBC 0 SEEN, Ur Squamous Epith Cells 0-5 SEEN, Urine Bacteria 0 SEEN, Urine Mucus 0 SEEN 09/30/23 22:07: Troponin I High Sens 9 10/01/23 02:03: Valproic Acid 23 L Micro: Microbiology 09/30/23 22:25 Mucosa - Nose SARS-CoV-2, Influenza & RSV (PCR) - Final Rhythm Strip Rhythm Strip: Sinus Rhythm Rate: 72 Ectopy: None Imaging Radiology Impression Chest X-Ray 09/30/23 19:38 IMPRESSION: Hazy opacification left lower lung which may represent typical or atypical infection in the appropriate setting. Also mild peribronchial thickening which can be seen with acute or chronic bronchitis/bronchiolitis. CT could further evaluate as clinically indicated. Electronically Signed: Chris Villareal MD at 20:19 EDT , Chest CTA 09/30/23 22:08 IMPRESSION: No pulmonary embolism or consolidative airspace disease. Trace interstitial edema with mild mosaic alveolar edema or atelectasis. Gastric bypass surgical change with small hiatal hernia. Electronically Signed: Chris Villareal MD at 23:45 EDT , Charges/Coding Visit Charges Inpatient E&M: 17577 Init Hosp L3
--- NOTE | 2023-10-01 08:41 | NURSING ---
Pt. rates pain an 8 on a scale of 0-10. Stomach, knees and legs. Nurse notified.
[2023-10-01] MEDS: Primidone 50 MG Tablet 100 MG PO ×3 (09:32→19:42)
[2023-10-01] MEDS: SimETHICONE 80 MG Chewable Tablet PO ×3 (09:34→17:34)
[2023-10-01] MEDS: Ferrous Sulfate 325 MG Tablet PO (09:34)
[2023-10-01] MEDS: DULoxetine Hcl 60 MG Capsule PO (09:35)
[2023-10-01] MEDS: Tolterodine Tartrate 2 MG CAP.SA PO (09:35)
[2023-10-01] MEDS: DULoxetine Hcl 30 MG Capsule PO (09:35)
[2023-10-01] MEDS: APIXABAN 5 MG TABLET PO ×2 (09:36→19:44)
[2023-10-01] MEDS: Fluticasone 0.05% 1 SPRAY NASAL.SRY 2 SPRAY NASAL (09:36)
[2023-10-01] MEDS: Furosemide 20 MG Tablet 60 MG PO (09:37)
[2023-10-01] MEDS: Vibegron 75 MG TABLET PO (09:37)
[2023-10-01] MEDS: Ascorbic Acid 500 MG Tablet PO (09:38)
[2023-10-01] MEDS: Cholecalciferol (VIT D3) 25 MCG TABLET (1,000 UNITS) PO (09:38)
[2023-10-01] MEDS: Pantoprazole Sodium 40 MG Tablet PO (09:38)
[2023-10-01] MEDS: buPROPion (XL) 150 MG TABLET.XL PO (09:39)
--- NOTE | 2023-10-01 09:56 | CASEMGMT ---
Addendum entered by Abi Green 10/01/23 10:00: [facility] replied pt can return to facility and will review for SNV vs RETIREMENT placement. MEG Bullock Original Note: Social Work SW sent documents [facility]/Kory Christy and asked if patient can return to [place] or SNF if needed. Abi WEAVER
[2023-10-01] MEDS: Phenazopyridine 95 MG Tablet 190 MG PO ×2 (10:13→23:50)
[2023-10-01] MEDS: HYDROCODONE/APAP 7.5-325/15ML 15 ML UDC PO ×2 (10:13→19:38)
[2023-10-01] MEDS: Divalproex Sodium 250 MG Tablet 500 MG PO ×2 (10:13→19:43)
[2023-10-01] MEDS: Mag Hydrox/Al Hydrox/Simeth 30 ML UDC PO (11:12)
[2023-10-01] MEDS: Cyanocobalamin (B12) 1,000 MCG/ML Vial 1000 MCG IM (11:12)
[2023-10-01] MEDS: Clobetasol Propionate 0.05% Cream 1 APPLIC TOPICAL ×2 (11:13→19:46)
--- NOTE | 2023-10-01 11:45 | CASEMGMT ---
Social Work SW met with patient to discuss DC planning. Pt was previously residing at [facility]. Pt stated she was fairly independent and was not using O2 at [place]. She stated she doesn't feel ready to return to [place] right now. She did state if she needs SNF she is Ok with going to [facility]. Abi BELLAMYW
[2023-10-01] MEDS: Furosemide 40 MG/4 ML Vial IV ×2 (13:43→19:44)
--- NOTE | 2023-10-01 15:47 | PCM.PN.HOSP ---
Reason for Visit Reason for Visit: Diagnoses Morbid (severe) obesity due to excess calories (09/30/23) Pneumonia, unspecified organism (09/30/23) Bronchitis, not specified as acute or chronic (09/30/23) Other abnormalities of breathing (09/30/23) Hypoxemia (09/30/23) Body mass index [BMI] 45.0-49.9, adult (09/30/23) Subjective Subjective Patient was seen and examined today, I talked with pulmonary medicine today and have them see the patient in consultation, they feel the patient is fluid overloaded and has diastolic CHF, they recommended antibiotics be stopped, I went over this with the patient and her daughter by phone during my visit today and explained. Patient is requiring 2 L of oxygen at the present time, I am hopeful that we can get her off oxygen when she is discharged home. Objective Data Objective Data Vital Signs: Vital Signs Temp Pulse Resp BP Pulse Ox O2 Del Method O2 Flow Rate 97.4 F L 79 16 117/62 95 Nasal Cannula 2 10/01/23 10:02 10/01/23 10:02 10/01/23 10:02 10/01/23 10:02 10/01/23 11:47 10/01/23 11:47 10/01/23 11:47 Oxygen Flow Rate (L/min) 2 Oxygen Delivery Method Nasal Cannula Weight: 130.9 kg Body Mass Index (BMI) 48.0 Intake & Output: Intake and Output for Last 24 Hours 09/29/23 09/30/23 10/01/23 23:59 23:59 23:59 Intake Total 200 / 200 Output Total 400 / 400 Balance -200 / -200 Lab / Micro Data 09/30/23 19:40 09/30/23 19:40 Labs: Laboratory Results - last 24 hr 09/30/23 19:40: WBC 4.7, RBC 3.59 L, Hgb 11.9 L, Hct 37.6, MCV 104.7 H, MCH 33.1 H, MCHC 31.6 L, RDW Std Deviation 49.2 H, RDW Coeff of Chani 12.9, Plt Count 221, MPV 9.5, Immature Gran % (Auto) 0.400, Neut % (Auto) 62.2, Lymph % (Auto) 20.9, [place] % (Auto) 11.4 H, Eos % (Auto) 3.6, Baso % (Auto) 1.5 H, Absolute Neuts (auto) 3.0, Absolute Lymphs (auto) 0.99, Nucleated RBC % 0, Sodium 134 L, Potassium 4.8, Chloride 107, Carbon Dioxide 21.0, Anion Gap 6, BUN 25 H, Creatinine 0.78, Estim Creat Clear Calc 81.55, Est GFR (MDRD) Af Amer 92, Est GFR (MDRD) Non-Af 76, BUN/Creatinine Ratio 32.1 H, Glucose 83, Calcium 8.4 L, Troponin I High Sens 8, B-Natriuretic Peptide 51.5 09/30/23 19:59: Urine Color SEE COMMENT BELOW, Urine Clarity Clear, Urine pH 5.0, Ur Specific [place] 1.015, Urine Protein 15 H, Urine Glucose (UA) Normal, Urine Ketones 5 H, Urine Occult Blood Negative, Urine Nitrite Positive H, Urine Bilirubin 6 H, Urine Urobilinogen 8 H, Ur Leukocyte Esterase Negative, Urine RBC 0 SEEN, Urine WBC 0 SEEN, Ur Squamous Epith Cells 0-5 SEEN, Urine Bacteria 0 SEEN, Urine Mucus 0 SEEN 09/30/23 22:07: Troponin I High Sens 9 10/01/23 02:03: Valproic Acid 23 L Micro: Microbiology 09/30/23 22:25 Mucosa - Nose SARS-CoV-2, Influenza & RSV (PCR) - Final Radiography Diagnostic Testing: Radiology Impression Chest X-Ray 09/30/23 19:38 IMPRESSION: Hazy opacification left lower lung which may represent typical or atypical infection in the appropriate setting. Also mild peribronchial thickening which can be seen with acute or chronic bronchitis/bronchiolitis. CT could further evaluate as clinically indicated. Electronically Signed: Chris Villareal MD at 20:19 EDT , Chest CTA 09/30/23 22:08 IMPRESSION: No pulmonary embolism or consolidative airspace disease. Trace interstitial edema with mild mosaic alveolar edema or atelectasis. Gastric bypass surgical change with small hiatal hernia. Electronically Signed: Chris Villareal MD at 23:45 EDT , Rhythm Strip Rhythm Strip: Sinus Rhythm Rate: 72 Ectopy: None Physical Exam Const alert, oriented x3 and no apparent distress Constitutional Narrative: Patient is morbidly obese General Appearance: cooperative, well kempt and well developed Orientation / Consciousness: awake, oriented to person, oriented to place and oriented to time HEENT normocephalic, head/scalp atraumatic and moist oral mucous membranes Eyes PERRL, EOMs intact bilaterally and conjunctivae normal Neck supple, no JVD, thyroid normal and no carotid bruits General: trachea midline Resp normal respiratory effort, no retractions, no use of accessory muscles and clear to auscultation bilaterally Auscultation: Negative for rales, rhonchi or wheezes Cardio regular rate, regular rhythm, S1 normal heart sound, S2 normal heart sound, no murmurs, no rub and no gallops GI normal to inspection, nondistended, normoactive bowel sounds, soft to palpation, non-tender and non-distended Extremity Extremity Narrative: Patient has generalized nonpitting edema in the lower legs Skin no rashes or lesions noted General Skin Exam: no breakdown Neuro oriented x3, CN's II-XII intact bilaterally, moves all extremities, no focal motor deficits and no sensory deficits noted Sensorium / Orientation: awake and alert Speech: speech normal Psych affect normal Assessment & Plan Assessment/Plan (1) CHF (congestive heart failure): PLAN: Plan 1. Acute on chronic diastolic congestive heart failure-patient will remain on IV Lasix, her diuresis will be monitored #2 hypoxia secondary to #1-pulse ox will be monitored, oxygen will be weaned if possible #3 deconditioning due to morbid obesity and multiple medical problems-complicates care, management, recovery, and prognosis #4 obstructive sleep apnea-patient refuses to be tested for obstructive sleep apnea, she has a history of sleep apnea in the past and was intolerant of CPAP. #5 chronic depression-patient is on Wellbutrin #6 chronic use of anticoagulants-patient is chronically on Eliquis due to past history of VTE Total clinical time spent by myself addressing the patient's medical issues, reviewing all of her data, and collaborating with patient's care team: 50 minutes Charges/Coding Visit Charges Inpatient E&M: 98133 Subs Hosp L3
[2023-10-01] MEDS: guaiFENesin Dm 10 ML UDC PO (16:03)
--- NOTE | 2023-10-01 16:37 | NURSING ---
All documentation by nursing home assistant, Aminta Garg, reviewed by nursing service director, Manda PACE, RN.
[2023-10-01] MEDS: Potassium Chloride Oral Tablet 10 MEQ PO (17:34)
--- NOTE | 2023-10-01 18:41 | PCM.HOSP.N ---
Hospitalist Note Patient's normal BNP of 51.5 pg/mL mitigates against likely CHF.
[2023-10-01] MEDS: Lactobacillis Acidophilus 2 CAP PO (19:43)
[2023-10-01] MEDS: Pravastatin 40 MG Tablet PO (19:45)
[2023-10-02] VITALS (7 sets, daily range): BP systolic 94–123; BP diastolic 51–67; PULSE 68–89; RESP 16–18; TEMP 36.2–36.6; O2SAT 91–97
[2023-10-02] MEDS: Furosemide 40 MG/4 ML Vial IV ×3 (05:43→20:51)
[2023-10-02] MEDS: Primidone 50 MG Tablet 100 MG PO ×3 (05:43→20:52)
[2023-10-02] MEDS: 0.9% Saline Lock 10 ML Syringe IV ×2 (05:44→14:14)
[2023-10-02] MEDS: guaiFENesin Dm 10 ML UDC PO ×2 (05:53→14:19)
[2023-10-02] MEDS: HYDROCODONE/APAP 7.5-325/15ML 15 ML UDC PO ×2 (08:47→20:48)
[2023-10-02] MEDS: APIXABAN 5 MG TABLET PO ×2 (08:48→20:51)
[2023-10-02] MEDS: Divalproex Sodium 250 MG Tablet 500 MG PO ×2 (08:48→20:51)
[2023-10-02] MEDS: DULoxetine Hcl 60 MG Capsule PO (08:48)
[2023-10-02] MEDS: DULoxetine Hcl 30 MG Capsule PO (08:48)
[2023-10-02] MEDS: Tolterodine Tartrate 2 MG CAP.SA PO (08:49)
[2023-10-02] MEDS: Cholecalciferol (VIT D3) 25 MCG TABLET (1,000 UNITS) PO (08:49)
[2023-10-02] MEDS: Ascorbic Acid 500 MG Tablet PO (08:49)
[2023-10-02] MEDS: Lactobacillis Acidophilus 2 CAP PO ×2 (08:49→20:50)
[2023-10-02] MEDS: Pantoprazole Sodium 40 MG Tablet PO (08:49)
[2023-10-02] MEDS: Vibegron 75 MG TABLET PO (08:50)
[2023-10-02] MEDS: Ferrous Sulfate 325 MG Tablet PO (08:50)
[2023-10-02] MEDS: Potassium Chloride Oral Tablet 10 MEQ PO ×2 (08:50→17:01)
[2023-10-02] MEDS: buPROPion (XL) 150 MG TABLET.XL PO (08:51)
[2023-10-02] MEDS: SimETHICONE 80 MG Chewable Tablet PO ×2 (08:51→17:02)
[2023-10-02] MEDS: Clobetasol Propionate 0.05% Cream 1 APPLIC TOPICAL ×2 (08:51→20:53)
[2023-10-02 09:01] LABS: Anion Gap 5 (5-15); BUN 22 mg/dL (7-18); BUN/Creat Ratio 29.3 RATIO (10-20); Calcium,Total 8.7 mg/dL (8.5-10.1); Chloride 105 mmol/L (98-107); Creatinine, Serum 0.75 mg/dL (0.55-1.02); EST Glomerular Filtration Rate 79 mL/min (>60); Est Glom Filt Rate - Afr Amer 96 mL/min (>60); Estimated Creatinine Clearance 80.47 ml/min; Glucose 103 mg/dL (74-106); Potassium 4.6 mmol/L (3.5-5.1); Sodium Level 138 mmol/L (136-145)
[2023-10-02] MEDS: Mag Hydrox/Al Hydrox/Simeth 30 ML UDC PO (10:30)
--- NOTE | 2023-10-02 12:22 | CASEMGMT ---
Addendum entered by Abi Green 10/02/23 15:14: [facility] responded and stated would like to have pt go to SNF for short time for rehab before returning to [place]. [facility] starting Pre-Cert. Abi WEAVER Original Note: Social Work This worker sent updated clinical and PT/OT notes to [facility] to review for AL vs SNF placement. Abi WEAVER
--- NOTE | 2023-10-02 14:09 | CASEMGMT ---
Social Work Emily Green, RUKHSANA, sent updates to [facility] to see if pt can return to the [place] or needs to go skilled. They have not yet answered. SW sent a message via [employer] to let SW know if pt can return to [facility] and if not to start precert for [facility] skilled. SW will continue to follow, waiting for a response. DANIELA Umaña
--- NOTE | 2023-10-02 15:19 | CASEMGMT ---
Social Work Pt family expressed to nursing they are concerned patient is depressed and wondered if she needs medication. Pt does currently take antidepressant medications. This worker met with patient and completed PHQ9. Pt scored a 12/17. Pt stated my family thinks I'm depressed because I refuse to get a c pap and they think I'm still not over losing my 7 years ago. Pt denied feeling depressed and stated she enjoys doing things at the [place] were she lives. Pt stated her family doesn't understand that her knees hurt and she doesn't always feel up to going all over the place. Pt stated she feels she has the right to chose whether or not she wants a c pap machine. Pt also stated she does miss her but they were over 50 years. Pt was pleasant during visit. SW provided support and discussed counseling options if patient felt she wanted this in the future. Pt declined services for now. This worker also discussed DC plans with patient and let her know that Kory Christy would like pt to go to the SNF at DC for short term rehab before returning to [place]. Pt stated OK as long as its not on wing 5 . Abi Green SHANK SCOURER
--- NOTE | 2023-10-02 16:40 | PCM.PN.HOSP ---
Reason for Visit Reason for Visit: Diagnoses Morbid (severe) obesity due to excess calories (09/30/23) Heart failure, unspecified (09/30/23) Pneumonia, unspecified organism (09/30/23) Bronchitis, not specified as acute or chronic (09/30/23) Other abnormalities of breathing (09/30/23) Hypoxemia (09/30/23) Body mass index [BMI] 45.0-49.9, adult (09/30/23) Subjective Subjective Patient was seen and examined today, she is still on low-flow nasal cannula oxygen. She has no complaints of any chest pain or shortness of breath at rest. Objective Data Objective Data Vital Signs: Vital Signs Temp Pulse Resp BP Pulse Ox O2 Del Method O2 Flow Rate 97.9 F 71 18 121/59 H 94 Nasal Cannula 2 10/02/23 11:55 10/02/23 11:55 10/02/23 11:55 10/02/23 11:55 10/02/23 11:55 10/02/23 14:30 10/02/23 14:30 Oxygen Flow Rate (L/min) 2 Oxygen Delivery Method Nasal Cannula Weight: 130.9 kg Body Mass Index (BMI) 48.0 Intake & Output: Intake and Output for Last 24 Hours 09/30/23 10/01/23 10/02/23 23:59 23:59 23:59 Intake Total 990 / 990 Output Total 6120 / 6120 2500 / 2500 Balance -5130 / -5130 -2500 / -2500 Lab / Micro Data 09/30/23 19:40 10/02/23 06:32 Labs: Laboratory Results - last 24 hr 10/02/23 06:32: Sodium 138, Potassium 4.6, Chloride 105, Carbon Dioxide 28.0, Anion Gap 5, BUN 22 H, Creatinine 0.75, Estim Creat Clear Calc 80.47, Est GFR (MDRD) Af Amer 96, Est GFR (MDRD) Non-Af 79, BUN/Creatinine Ratio 29.3 H, Glucose 103, Calcium 8.7 Micro: Microbiology 09/30/23 19:59 Urine, Clean Catch Urine Culture - Final Culture exhibits no growth. 09/30/23 22:25 Mucosa - Nose SARS-CoV-2, Influenza & RSV (PCR) - Final Rhythm Strip Rhythm Strip: Sinus Rhythm Rate: 72 Ectopy: None Physical Exam Narrative alert, oriented x3 and no apparent distress Constitutional Narrative: Patient is morbidly obese General Appearance: cooperative, well kempt and well developed Orientation / Consciousness: awake, oriented to person, oriented to place and oriented to time HEENT normocephalic, head/scalp atraumatic and moist oral mucous membranes Eyes PERRL, EOMs intact bilaterally and conjunctivae normal Neck supple, no JVD, thyroid normal and no carotid bruits General: trachea midline Resp normal respiratory effort, no retractions, no use of accessory muscles and clear to auscultation bilaterally Auscultation: Negative for rales, rhonchi or wheezes Cardio regular rate, regular rhythm, S1 normal heart sound, S2 normal heart sound, no murmurs, no rub and no gallops GI normal to inspection, nondistended, normoactive bowel sounds, soft to palpation, non-tender and non-distended Extremity Extremity Narrative: Patient has generalized nonpitting edema in the lower legs Skin no rashes or lesions noted General Skin Exam: no breakdown Neuro oriented x3, CN's II-XII intact bilaterally, moves all extremities, no focal motor deficits and no sensory deficits noted Sensorium / Orientation: awake and alert Speech: speech normal Psych affect normal Assessment & Plan Assessment/Plan (1) CHF (congestive heart failure): PLAN: Plan 1. Acute on chronic diastolic congestive heart failure-patient will remain on IV Lasix, her diuresis will be monitored #2 hypoxia secondary to #1-pulse ox will be monitored, oxygen will be weaned if possible, patient is currently on 2 L of nasal cannula oxygen #3 deconditioning due to morbid obesity and multiple medical problems-complicates care, management, recovery, and prognosis #4 obstructive sleep apnea-patient refuses to be tested for obstructive sleep apnea, she has a history of sleep apnea in the past and was intolerant of CPAP. 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
[2023-10-02] MEDS: Acetaminophen 325 MG Tablet 650 MG PO (17:00)
[2023-10-02] MEDS: Phenazopyridine 95 MG Tablet 190 MG PO (20:49)
[2023-10-02] MEDS: Pravastatin 40 MG Tablet PO (20:53)
[2023-10-03] VITALS (13 sets, daily range): BP systolic 103–129; BP diastolic 51–82; PULSE 65–95; RESP 18; TEMP 36.4–36.7; O2SAT 85–98
[2023-10-03] MEDS: Furosemide 40 MG/4 ML Vial IV ×3 (06:26→21:37)
[2023-10-03] MEDS: Primidone 50 MG Tablet 100 MG PO ×3 (06:26→21:15)
[2023-10-03] MEDS: Ferrous Sulfate 325 MG Tablet PO (09:12)
[2023-10-03] MEDS: Nystatin Powder 15gm Bottle 1 APPLIC TOPICAL (09:12)
[2023-10-03] MEDS: SimETHICONE 80 MG Chewable Tablet PO ×3 (09:13→17:45)
[2023-10-03] MEDS: Pantoprazole Sodium 40 MG Tablet PO (09:13)
[2023-10-03] MEDS: Potassium Chloride Oral Tablet 10 MEQ PO ×2 (09:13→17:45)
[2023-10-03] MEDS: Lactobacillis Acidophilus 2 CAP PO ×2 (09:14→21:16)
[2023-10-03] MEDS: Divalproex Sodium 250 MG Tablet 500 MG PO ×2 (09:14→21:15)
[2023-10-03] MEDS: DULoxetine Hcl 30 MG Capsule PO (09:14)
[2023-10-03] MEDS: DULoxetine Hcl 60 MG Capsule PO (09:14)
[2023-10-03] MEDS: APIXABAN 5 MG TABLET PO ×2 (09:15→21:17)
[2023-10-03] MEDS: Vibegron 75 MG TABLET PO (09:15)
[2023-10-03] MEDS: Tolterodine Tartrate 2 MG CAP.SA PO (09:15)
[2023-10-03] MEDS: Clobetasol Propionate 0.05% Cream 1 APPLIC TOPICAL ×2 (09:16→21:20)
[2023-10-03] MEDS: Cholecalciferol (VIT D3) 25 MCG TABLET (1,000 UNITS) PO (09:17)
[2023-10-03] MEDS: buPROPion (XL) 150 MG TABLET.XL PO (09:17)
[2023-10-03] MEDS: Ascorbic Acid 500 MG Tablet PO (09:17)
--- NOTE | 2023-10-03 09:22 | CASEMGMT ---
Social Work SW started 7000 form in [employer] system. Abi BELLAMYW
--- NOTE | 2023-10-03 11:44 | PN.HOSP_ITS ---
Reason for Visit Reason for Visit: Diagnoses Morbid (severe) obesity due to excess calories (09/30/23) Heart failure, unspecified (09/30/23) Pneumonia, unspecified organism (09/30/23) Bronchitis, not specified as acute or chronic (09/30/23) Other abnormalities of breathing (09/30/23) Hypoxemia (09/30/23) Body mass index [BMI] 45.0-49.9, adult (09/30/23) Subjective Subjective Patient was seen and examined today, she is currently on 1 L of oxygen, I have instructed nursing to wean her oxygen off and see if she could stay off oxygen. Patient would like to go to an extended care facility due to generalized weakness, approval is pending at this point and it is likely she will stay here through the weekend. Objective Data Objective Data Vital Signs: Vital Signs Temp Pulse Resp BP Pulse Ox O2 Del Method O2 Flow Rate 98.0 F 65 18 122/59 H 95 Nasal Cannula 1 10/03/23 10:05 10/03/23 10:05 10/03/23 10:05 10/03/23 10:05 10/03/23 10:05 10/03/23 10:05 10/03/23 10:05 Oxygen Flow Rate (L/min) 1 Oxygen Delivery Method Nasal Cannula Weight: 130.9 kg Body Mass Index (BMI) 48.0 Intake & Output: Intake and Output for Last 24 Hours 10/01/23 10/02/23 10/03/23 23:59 23:59 23:59 Intake Total 990 / 990 360 / 610 400 / 400 Output Total 6120 / 6120 2900 / 3400 500 / 500 Balance -5130 / -5130 -2540 / -2790 -100 / -100 Lab / Micro Data 09/30/23 19:40 10/02/23 06:32 Micro: Microbiology 09/30/23 19:59 Urine, Clean Catch Urine Culture - Final Culture exhibits no growth. 09/30/23 22:25 Mucosa - Nose SARS-CoV-2, Influenza & RSV (PCR) - Final Rhythm Strip Rhythm Strip: Sinus Rhythm Rate: 72 Ectopy: None Physical Exam Narrative alert, oriented x3 and no apparent distress Constitutional Narrative: Patient is morbidly obese General Appearance: cooperative, well kempt and well developed Orientation / Consciousness: awake, oriented to person, oriented to place and oriented to time HEENT normocephalic, head/scalp atraumatic and moist oral mucous membranes Eyes PERRL, EOMs intact bilaterally and conjunctivae normal Neck supple, no JVD, thyroid normal and no carotid bruits General: trachea midline Resp normal respiratory effort, no retractions, no use of accessory muscles and clear to auscultation bilaterally Auscultation: Negative for rales, rhonchi or wheezes Cardio regular rate, regular rhythm, S1 normal heart sound, S2 normal heart sound, no murmurs, no rub and no gallops GI normal to inspection, nondistended, normoactive bowel sounds, soft to palpation, non-tender and non-distended Extremity Extremity Narrative: Patient has generalized nonpitting edema in the lower legs Skin no rashes or lesions noted General Skin Exam: no breakdown Neuro oriented x3, CN's II-XII intact bilaterally, moves all extremities, no focal motor deficits and no sensory deficits noted Sensorium / Orientation: awake and alert Speech: speech normal Psych affect normal Assessment & Plan Assessment/Plan (1) CHF (congestive heart failure): PLAN: Plan 1. Acute on chronic diastolic congestive heart failure-patient will remain on IV Lasix, her diuresis will be monitored, I will consider changing her diuresis over to oral medication later today. #2 hypoxia secondary to #1-pulse ox will be monitored, oxygen will be weaned if possible, patient is currently on 1 L of nasal cannula oxygen, oxygen will be weaned, I suspect she will be able to maintain her pulse ox on room air. #3 deconditioning due to morbid obesity and multiple medical problems- complicates care, management, recovery, and prognosis #4 obstructive sleep apnea-patient refuses to be tested for obstructive sleep apnea, she has a history of sleep apnea in the past and was intolerant of CPAP. #5 chronic depression-patient is on Wellbutrin #6 chronic use of anticoagulants-patient is chronically on Eliquis due to past history of VTE Total clinical time spent by myself addressing the patient's medical issues, reviewing all of her data, and collaborating with patient's care team: 35 minutes Charges/Coding Visit Charges Inpatient E&M: 37403 Subs Hosp L2
--- NOTE | 2023-10-03 13:48 | CASEMGMT ---
Social Work SW sent updates to [facility], inquired about precert. DANIELA Umaña
[2023-10-03] MEDS: HYDROCODONE/APAP 7.5-325/15ML 15 ML UDC PO (14:20)
--- NOTE | 2023-10-03 16:42 | CASEMGMT ---
Social Work Precert has not been attained yet for pt to go to [facility] skilled. SW completed the PAS/RR, placed this and the results along w/green sheet and transport form on chart. SW let pt and daughter Guera who is in the room know that we are waiting for precert and we may get it on the weekend. Daughter and pt state understanding. Plan continues to be for pt to go to [facility], skilled precert pending. DANIELA Umaña
[2023-10-03] MEDS: Phenazopyridine 95 MG Tablet 190 MG PO (17:52)
[2023-10-03] MEDS: Pravastatin 40 MG Tablet PO (21:18)
[2023-10-03] MEDS: 0.9% Saline Lock 10 ML Syringe IV (21:37)
[2023-10-03] MEDS: guaiFENesin Dm 10 ML UDC PO (21:43)
--- NOTE | 2023-10-03 23:52 | CPS ---
Patient went 15 minutes on RA for overnight study. Saturations continued to drop to the mid to low 80's during that time. RT placed patient back on 1L and patients oxygen came up to 90%. Nursing notified. Will continue to monitor.
[2023-10-04] VITALS (11 sets, daily range): BP systolic 105–134; BP diastolic 39–67; PULSE 74–86; RESP 18–20; TEMP 36.6–36.7; O2SAT 87–96
[2023-10-04] MEDS: Phenazopyridine 95 MG Tablet 190 MG PO ×2 (03:45→15:16)
[2023-10-04] MEDS: Primidone 50 MG Tablet 100 MG PO ×3 (05:45→20:14)
[2023-10-04] MEDS: Potassium Chloride Oral Tablet 10 MEQ PO ×2 (09:45→15:17)
[2023-10-04] MEDS: Lactobacillis Acidophilus 2 CAP PO ×2 (09:45→20:15)
[2023-10-04] MEDS: SimETHICONE 80 MG Chewable Tablet PO ×3 (09:45→17:35)
[2023-10-04] MEDS: Tolterodine Tartrate 2 MG CAP.SA PO (09:45)
[2023-10-04] MEDS: DULoxetine Hcl 30 MG Capsule PO (09:45)
[2023-10-04] MEDS: Ferrous Sulfate 325 MG Tablet PO (09:45)
[2023-10-04] MEDS: APIXABAN 5 MG TABLET PO ×2 (09:46→20:15)
[2023-10-04] MEDS: DULoxetine Hcl 60 MG Capsule PO (09:46)
[2023-10-04] MEDS: Divalproex Sodium 250 MG Tablet 500 MG PO ×2 (09:46→20:14)
[2023-10-04] MEDS: Pantoprazole Sodium 40 MG Tablet PO (09:47)
[2023-10-04] MEDS: Clobetasol Propionate 0.05% Cream 1 APPLIC TOPICAL ×2 (09:48→20:15)
[2023-10-04] MEDS: Vibegron 75 MG TABLET PO (09:48)
[2023-10-04] MEDS: Cholecalciferol (VIT D3) 25 MCG TABLET (1,000 UNITS) PO (09:49)
[2023-10-04] MEDS: buPROPion (XL) 150 MG TABLET.XL PO (09:49)
[2023-10-04] MEDS: Ascorbic Acid 500 MG Tablet PO (09:49)
[2023-10-04] MEDS: HYDROCODONE/APAP 7.5-325/15ML 15 ML UDC PO ×2 (11:24→23:34)
--- NOTE | 2023-10-04 12:48 | PN.HOSP_ITS ---
Reason for Visit Reason for Visit: Diagnoses Morbid (severe) obesity due to excess calories (09/30/23) Heart failure, unspecified (09/30/23) Pneumonia, unspecified organism (09/30/23) Bronchitis, not specified as acute or chronic (09/30/23) Other abnormalities of breathing (09/30/23) Hypoxemia (09/30/23) Body mass index [BMI] 45.0-49.9, adult (09/30/23) Subjective Subjective Patient was seen and examined today, she is requiring minimal amounts of nasal cannula oxygen to maintain her pulse ox above 90%. Lasix was held this morning due to systolic blood pressure in the low 100s, I have elected to restart the Lasix tonight. Objective Data Objective Data Vital Signs: Vital Signs Temp Pulse Resp BP Pulse Ox O2 Del Method O2 Flow Rate 98.0 F 80 18 106/55 L 96 Nasal Cannula 1 10/04/23 09:00 10/04/23 09:00 10/04/23 09:00 10/04/23 09:00 10/04/23 12:04 10/04/23 12:04 10/04/23 12:04 FiO2 21 10/03/23 23:49 Oxygen Flow Rate (L/min) 1 Oxygen Delivery Method Nasal Cannula Weight: 130.9 kg Body Mass Index (BMI) 48.0 Intake & Output: Intake and Output for Last 24 Hours 10/02/23 10/03/23 10/04/23 23:59 23:59 23:59 Intake Total 360 / 610 1170 / 1170 Output Total 2900 / 3400 2450 / 2450 Balance -2540 / -2790 -1280 / -1280 Lab / Micro Data 09/30/23 19:40 10/02/23 06:32 Micro: Microbiology 09/30/23 19:59 Urine, Clean Catch Urine Culture - Final Culture exhibits no growth. 09/30/23 22:25 Mucosa - Nose SARS-CoV-2, Influenza & RSV (PCR) - Final Rhythm Strip Rhythm Strip: Sinus Rhythm Rate: 72 Ectopy: None Physical Exam Narrative alert, oriented x3 and no apparent distress Constitutional Narrative: Patient is morbidly obese General Appearance: cooperative, well kempt and well developed Orientation / Consciousness: awake, oriented to person, oriented to place and oriented to time HEENT normocephalic, head/scalp atraumatic and moist oral mucous membranes Eyes PERRL, EOMs intact bilaterally and conjunctivae normal Neck supple, no JVD, thyroid normal and no carotid bruits General: trachea midline Resp normal respiratory effort, no retractions, no use of accessory muscles and clear to auscultation bilaterally Auscultation: Negative for rales, rhonchi or wheezes Cardio regular rate, regular rhythm, S1 normal heart sound, S2 normal heart sound, no murmurs, no rub and no gallops GI normal to inspection, nondistended, normoactive bowel sounds, soft to palpation, non-tender and non-distended Extremity Extremity Narrative: Patient has generalized nonpitting edema in the lower legs Skin no rashes or lesions noted General Skin Exam: no breakdown Neuro oriented x3, CN's II-XII intact bilaterally, moves all extremities, no focal motor deficits and no sensory deficits noted Sensorium / Orientation: awake and alert Speech: speech normal Psych affect normal Assessment & Plan Assessment/Plan (1) CHF (congestive heart failure): PLAN: Plan 1. Acute on chronic diastolic congestive heart failure-patient will remain on IV Lasix, her diuresis will be monitored, patient's oral Lasix will be restarted tonight #2 hypoxia secondary to #1-pulse ox will be monitored, oxygen will be weaned if possible, patient is currently on 1 L of nasal cannula oxygen #3 deconditioning due to morbid obesity and multiple medical problems- complicates care, management, recovery, and prognosis #4 obstructive sleep apnea-patient refuses to be tested for obstructive sleep apnea, she has a history of sleep apnea in the past and was intolerant of CPAP. 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
[2023-10-04] MEDS: Furosemide 40 MG Tablet PO (15:16)
[2023-10-04] MEDS: Mag Hydrox/Al Hydrox/Simeth 30 ML UDC PO (17:36)
[2023-10-04] MEDS: Pravastatin 40 MG Tablet PO (20:15)
[2023-10-04] MEDS: Acetaminophen 325 MG Tablet 650 MG PO (20:18)
[2023-10-05 05:00] VITALS: BP 106/55; PULSE 68; RESP 18; TEMP 36.6; O2SAT 94
[2023-10-05] MEDS: Primidone 50 MG Tablet 100 MG PO ×3 (05:18→19:58)
[2023-10-05 09:00] VITALS: BP 114/72; PULSE 62; RESP 18; TEMP 36.8; O2SAT 95
[2023-10-05] MEDS: DULoxetine Hcl 30 MG Capsule PO (09:19)
[2023-10-05] MEDS: DULoxetine Hcl 60 MG Capsule PO (09:19)
[2023-10-05] MEDS: Pantoprazole Sodium 40 MG Tablet PO (09:19)
[2023-10-05] MEDS: Potassium Chloride Oral Tablet 10 MEQ PO ×2 (09:19→17:25)
[2023-10-05] MEDS: Furosemide 40 MG Tablet PO ×2 (09:19→17:25)
[2023-10-05] MEDS: APIXABAN 5 MG TABLET PO ×2 (09:20→19:57)
[2023-10-05] MEDS: Divalproex Sodium 250 MG Tablet 500 MG PO ×2 (09:20→19:57)
[2023-10-05] MEDS: Lactobacillis Acidophilus 2 CAP PO ×2 (09:20→19:57)
[2023-10-05] MEDS: Ferrous Sulfate 325 MG Tablet PO (09:21)
[2023-10-05] MEDS: Tolterodine Tartrate 2 MG CAP.SA PO (09:21)
[2023-10-05] MEDS: SimETHICONE 80 MG Chewable Tablet PO ×3 (09:21→17:24)
[2023-10-05] MEDS: Vibegron 75 MG TABLET PO (09:22)
[2023-10-05] MEDS: Clobetasol Propionate 0.05% Cream 1 APPLIC TOPICAL ×2 (09:22→19:59)
[2023-10-05] MEDS: Ascorbic Acid 500 MG Tablet PO (10:36)
[2023-10-05] MEDS: Cholecalciferol (VIT D3) 25 MCG TABLET (1,000 UNITS) PO (10:37)
[2023-10-05] MEDS: buPROPion (XL) 150 MG TABLET.XL PO (10:37)
[2023-10-05] MEDS: Phenazopyridine 95 MG Tablet 190 MG PO (11:52)
[2023-10-05] MEDS: HYDROCODONE/APAP 7.5-325/15ML 15 ML UDC PO ×2 (11:52→23:54)
--- NOTE | 2023-10-05 12:28 | PN.HOSP_ITS ---
Reason for Visit Reason for Visit: Diagnoses Morbid (severe) obesity due to excess calories (09/30/23) Heart failure, unspecified (09/30/23) Pneumonia, unspecified organism (09/30/23) Bronchitis, not specified as acute or chronic (09/30/23) Other abnormalities of breathing (09/30/23) Hypoxemia (09/30/23) Body mass index [BMI] 45.0-49.9, adult (09/30/23) Subjective Subjective Patient was seen and examined today, she still remains on low-flow oxygen. Patient does not complain of any shortness of breath at rest Objective Data Objective Data Vital Signs: Vital Signs Temp Pulse Resp BP Pulse Ox O2 Del Method O2 Flow Rate 98.2 F 62 18 114/72 95 Nasal Cannula 2 10/05/23 09:00 10/05/23 09:00 10/05/23 09:00 10/05/23 09:00 10/05/23 09:00 10/05/23 09:00 10/05/23 10:15 FiO2 21 10/03/23 23:49 Oxygen Flow Rate (L/min) 2 Oxygen Delivery Method Nasal Cannula Weight: 130.9 kg Body Mass Index (BMI) 48.0 Intake & Output: Intake and Output for Last 24 Hours 10/03/23 10/04/23 10/05/23 23:59 23:59 23:59 Intake Total 1170 / 1170 600 / 600 800 / 800 Output Total 2450 / 2450 200 / 200 200 / 200 Balance -1280 / -1280 400 / 400 600 / 600 Lab / Micro Data 09/30/23 19:40 10/02/23 06:32 Micro: Microbiology 09/30/23 19:59 Urine, Clean Catch Urine Culture - Final Culture exhibits no growth. 09/30/23 22:25 Mucosa - Nose SARS-CoV-2, Influenza & RSV (PCR) - Final Rhythm Strip Rhythm Strip: Sinus Rhythm Rate: 72 Ectopy: None Physical Exam Narrative alert, oriented x3 and no apparent distress Constitutional Narrative: Patient is morbidly obese General Appearance: cooperative, well kempt and well developed Orientation / Consciousness: awake, oriented to person, oriented to place and oriented to time HEENT normocephalic, head/scalp atraumatic and moist oral mucous membranes Eyes PERRL, EOMs intact bilaterally and conjunctivae normal Neck supple, no JVD, thyroid normal and no carotid bruits General: trachea midline Resp normal respiratory effort, no retractions, no use of accessory muscles and clear to auscultation bilaterally Auscultation: Negative for rales, rhonchi or wheezes Cardio regular rate, regular rhythm, S1 normal heart sound, S2 normal heart sound, no murmurs, no rub and no gallops GI normal to inspection, nondistended, normoactive bowel sounds, soft to palpation, non-tender and non-distended Extremity Extremity Narrative: Patient has generalized nonpitting edema in the lower legs Skin no rashes or lesions noted General Skin Exam: no breakdown Neuro oriented x3, CN's II-XII intact bilaterally, moves all extremities, no focal motor deficits and no sensory deficits noted Sensorium / Orientation: awake and alert Speech: speech normal Psych affect normal Assessment & Plan Assessment/Plan (1) CHF (congestive heart failure): PLAN: Plan 1. Acute on chronic diastolic congestive heart failure-patient remains on oral Lasix, we are waiting for approval for the patient to go to an extended care facility for short-term rehab services #2 hypoxia secondary to #1-pulse ox will be monitored, oxygen will be weaned if possible, patient is currently on 2 L of nasal cannula oxygen #3 deconditioning due to morbid obesity and multiple medical problems- complicates care, management, recovery, and prognosis, PT and OT are continuing to see the patient #4 obstructive sleep apnea-patient refuses to be tested for obstructive sleep apnea, she has a history of sleep apnea in the past and was intolerant of CPAP. Patient told nursing that she would be amendable to being tested for sleep apnea as an outpatient, consideration could be made to place the patient on a CPAP setting when she goes to her extended care facility. #5 chronic depression-patient is on Wellbutrin #6 chronic use of anticoagulants-patient is chronically on Eliquis due to past h istory of VTE Total clinical time spent by myself addressing the patient's medical issues, reviewing all of her data, and collaborating with patient's care team: 35 minutes Charges/Coding Visit Charges Inpatient E&M: 11316 Subs Hosp L2
[2023-10-05 16:00] VITALS: BP 131/64; PULSE 68; RESP 18; TEMP 36.8; O2SAT 96
[2023-10-05] MEDS: Acetaminophen 325 MG Tablet 650 MG PO (17:24)
[2023-10-05] MEDS: Pravastatin 40 MG Tablet PO (19:59)
[2023-10-05 20:07] VITALS: BP 102/59; PULSE 82; RESP 18; TEMP 36.9; O2SAT 94
[2023-10-05] MEDS: Mag Hydrox/Al Hydrox/Simeth 30 ML UDC PO (21:55)
[2023-10-06 06:00] VITALS: BP 103/50; PULSE 70; RESP 18; TEMP 36.7; O2SAT 97
[2023-10-06] MEDS: Primidone 50 MG Tablet 100 MG PO (06:34)
[2023-10-06 06:53] VITALS: O2SAT 94
[2023-10-06 07:21] LABS: Anion Gap 3 (5-15); BUN 31 mg/dL (7-18); BUN/Creat Ratio 46.3 RATIO (10-20); Calcium,Total 8.1 mg/dL (8.5-10.1); Chloride 105 mmol/L (98-107); Creatinine, Serum 0.67 mg/dL (0.55-1.02); EST Glomerular Filtration Rate 91 mL/min (>60); Est Glom Filt Rate - Afr Amer 110 mL/min (>60); Estimated Creatinine Clearance 80.47 ml/min; Glucose 89 mg/dL (74-106); Potassium 4.1 mmol/L (3.5-5.1); Sodium Level 138 mmol/L (136-145)
[2023-10-06] MEDS: SimETHICONE 80 MG Chewable Tablet PO ×2 (07:42→11:43)
[2023-10-06] MEDS: Potassium Chloride Oral Tablet 10 MEQ PO (07:42)
[2023-10-06] MEDS: Ferrous Sulfate 325 MG Tablet PO (07:42)
--- NOTE | 2023-10-06 07:51 | PN.HOSP_ITS ---
Reason for Visit Reason for Visit: Diagnoses Morbid (severe) obesity due to excess calories (09/30/23) Heart failure, unspecified (09/30/23) Pneumonia, unspecified organism (09/30/23) Bronchitis, not specified as acute or chronic (09/30/23) Other abnormalities of breathing (09/30/23) Hypoxemia (09/30/23) Body mass index [BMI] 45.0-49.9, adult (09/30/23) Subjective Subjective Feels well. No events. Objective Data Objective Data Vital Signs: Vital Signs Temp Pulse Resp BP Pulse Ox O2 Del Method O2 Flow Rate 36.7 C 70 18 103/50 L 97 Nasal Cannula 2 10/06/23 06:00 10/06/23 06:00 10/06/23 06:00 10/06/23 06:00 10/06/23 06:00 10/06/23 06:00 10/06/23 06:00 FiO2 21 10/03/23 23:49 Oxygen Flow Rate (L/min) 2 Oxygen Delivery Method Nasal Cannula Weight: 130.9 kg Body Mass Index (BMI) 48.0 Intake & Output: Intake and Output for Last 24 Hours 10/04/23 10/05/23 10/06/23 23:59 23:59 23:59 Intake Total 600 / 600 1350 / 1350 Output Total 200 / 200 200 / 200 100 / 100 Balance 400 / 400 1150 / 1150 -100 / -100 Lab / Micro Data 09/30/23 19:40 10/06/23 06:14 Labs: Laboratory Results - last 24 hr 10/06/23 06:14: Sodium 138, Potassium 4.1, Chloride 105, Carbon Dioxide 30.0, Anion Gap 3 L, BUN 31 H, Creatinine 0.67, Estim Creat Clear Calc 80.47, Est GFR (MDRD) Af Amer 110, Est GFR (MDRD) Non-Af 91, BUN/Creatinine Ratio 46.3 H, Glucose 89, Calcium 8.1 L Micro: Microbiology 09/30/23 19:59 Urine, Clean Catch Urine Culture - Final Culture exhibits no growth. 09/30/23 22:25 Mucosa - Nose SARS-CoV-2, Influenza & RSV (PCR) - Final Rhythm Strip Rhythm Strip: Sinus Rhythm Rate: 72 Ectopy: None Physical Exam Const alert and no apparent distress Constitutional Narrative: up in chair. Psych affect normal Assessment & Plan Assessment/Plan (1) CHF (congestive heart failure): PLAN: Plan Acute HFpEF * EF 65% on echo from 06/24/23 * Pneumonia ruled out * Was treated with IV furosemide, since changed to PO. * BP on low end of normal, therefore, hold off initiating ACEi/ARB Debility: to SNF today. Chronic conditions: * Chronic respiratory failure: on chronic oxygen. Wean as tolerated. * obstructive sleep apnea-patient refuses to be tested for obstructive sleep apnea, she has a history of sleep apnea in the past and was intolerant of CPAP. Patient told nursing that she would be amendable to being tested for sleep apnea as an outpatient, consideration could be made to place the patient on a CPAP setting when she goes to her extended care facility. * chronic depression-patient is on Wellbutrin * VTE: apixaban. VTE prophylaxis: not indicated as already anticoagulated.
[2023-10-06 08:34] VITALS: BP 112/40; PULSE 73; RESP 18; TEMP 37; O2SAT 98
--- NOTE | 2023-10-06 09:20 | CASEMGMT ---
Social Work Pt is awaiting precert to go to [facility]. Updated clinicals sent to [facility] via [employer] SW met with pt and updated that precert is still pending at this time. Pt understanding. Plan: [facility], pending precert MEG Rubio
[2023-10-06] MEDS: Lactobacillis Acidophilus 2 CAP PO (09:35)
[2023-10-06] MEDS: DULoxetine Hcl 60 MG Capsule PO (09:35)
[2023-10-06] MEDS: Cholecalciferol (VIT D3) 25 MCG TABLET (1,000 UNITS) PO ×2 (09:35)
[2023-10-06] MEDS: Vibegron 75 MG TABLET PO (09:36)
[2023-10-06] MEDS: Tolterodine Tartrate 2 MG CAP.SA PO (09:36)
[2023-10-06] MEDS: Furosemide 40 MG Tablet PO (09:36)
[2023-10-06] MEDS: APIXABAN 5 MG TABLET PO (09:36)
[2023-10-06] MEDS: Ascorbic Acid 500 MG Tablet PO (09:36)
[2023-10-06] MEDS: Clobetasol Propionate 0.05% Cream 1 APPLIC TOPICAL (09:36)
[2023-10-06] MEDS: Pantoprazole Sodium 40 MG Tablet PO (09:36)
[2023-10-06] MEDS: buPROPion (XL) 150 MG TABLET.XL PO (09:37)
[2023-10-06] MEDS: Divalproex Sodium 250 MG Tablet 500 MG PO (09:37)
[2023-10-06] MEDS: DULoxetine Hcl 30 MG Capsule PO (09:38)
[2023-10-06] MEDS: Phenazopyridine 95 MG Tablet 190 MG PO (09:44)
[2023-10-06] MEDS: HYDROCODONE/APAP 7.5-325/15ML 15 ML UDC PO (09:45)
--- NOTE | 2023-10-06 13:05 | TREXTCAR_ITS ---
Diet Diet Order/Speech Therapy: 10/01/23 16:18 Diet: Sodium Restricted (MOD) Is pt able to select menu?: Yes Routine Orders/Code Status O2 Liters per Minute: 2 O2 Frequency: Continuous Routine Lab Work: BMP (weekly) Therapies Weight Bearing: Full weight bearing Physical Therapy: Eval and Treat Occupational Therapy: Eval and Treat Problem/Diagnosis (1) CHF (congestive heart failure): Status: Acute Code(s): I50.9 - Heart failure, unspecified Plan Acute HFpEF * EF 65% on echo from 06/24/23 * Pneumonia ruled out * Was treated with IV furosemide, since changed to PO. * BP on low end of normal, therefore, hold off initiating ACEi/ARB Debility: to SNF today. Chronic conditions: * Chronic respiratory failure: on chronic oxygen. Wean as tolerated. * obstructive sleep apnea-patient refuses to be tested for obstructive sleep apnea, she has a history of sleep apnea in the past and was intolerant of CPAP. Patient told nursing that she would be amendable to being tested for sleep apnea as an outpatient, consideration could be made to place the patient on a CPAP setting when she goes to her extended care facility. * chronic depression-patient is on Wellbutrin * VTE: apixaban. VTE prophylaxis: not indicated as already anticoagulated. Allergies/Procedures Done in Hospital Allergies ampicillin [From Unasyn] Allergy (Severe, Verified 09/30/23 17:40) Blisters on tongue /throat difficulty breathing sore tongue/ warfarin sodium [From Coumadin] Allergy (Severe, Verified 09/30/23 17:40) Low red blood cells Type of Care/Length of Stay Estimated LOS: Convalescent Care Less Than 30 days Type of Care Needed: Skilled Rehab Potential: Good Prognosis: Good Additional Orders/Day of Discharge Day of Discharge: 10/06/23 Dietary and Speech Recommendations Dietitian Recommendations/Changes: Recommend Low Sodium diet to manage medical conditions. Discharge Plan Admission Admit Date/Time: 09/30/23 23:58 Primary Reason for Your Visit: CHF Attending Provider: Teofilo Suárez Primary Care Provider: Bobby Pinto Consulting Providers: Marlon Shay; Dewayne Orlando Discharge Orders/Prescriptions Prescriptions: New furosemide 40 mg Tablet 40 mg PO BIDLX Qty: 0 0RF potassium chloride 10 mEq Tablet,Er Particles/Crystals 10 meq PO BIDCM Qty: 0 0RF L.acidoph,saliva-B.bif-S.therm 175 mg Capsule 2 cap PO BID Qty: 0 0RF Gemtesa 75 mg Tablet 75 mg PO DAILY Qty: 0 0RF Continued acetaminophen 325 mg tablet 650 mg PO Q4H PRN (Reason: pain) albuterol sulfate 90 mcg/actuation HFA aerosol inhaler 2 puff inhalation Q4H PRN (Reason: wheezing) duloxetine 30 mg capsule,delayed release(DR/EC) 30 mg PO DAILY Hold Instructions: Order Changed cholecalciferol (vitamin D3) [Vitamin D3] 1,000 UNIT tablet 1,000 unit PO DAILY pravastatin 40 MG tablet 40 mg PO QHS primidone 50 MG tablet 100 mg PO TID fluticasone propionate 1 SPRAY spray,suspension 2 spray NASAL DAILY simethicone 80 MG tablet 80 mg PO TIDCM bupropion HCl 150 MG tablet extended release 24 hr 150 mg PO DAILY alum-mag hydroxide-simeth 355 ML suspension 30 ml PO Q4H PRN (Reason: GI DISTRESS) ascorbic acid (vitamin C) 500 MG tablet 500 mg PO DAILY cyanocobalamin (vitamin B-12) 1,000 mcg/mL Solution 1,000 mcg IM QMONTH Rx Instructions: states is due the 4th of each month nystatin 100,000 unit/gram Powder 1 applic TOPICAL Q8H PRN (Reason: Skin Irritation) divalproex [Depakote] 500 mg Tablet,Delayed Release (Dr/Ec) 500 mg PO BID Eliquis 5 mg Tablet 5 mg PO BID halobetasol propionate 0.05 % cream 0.05 applic TOPICAL BID polyethylene glycol 3350 [Miralax] 17 gram Powder In Packet 17 g PO Q24H PRN (Reason: Constipation) d-mannose 500 mg Capsule 1,000 mg PO BID omeprazole 40 mg capsule,delayed release(DR/EC) 40 mg PO DAILY oxybutynin chloride 5 mg tablet extended release 24hr 5 mg PO DAILY albuterol sulfate 2.5 MG/3 ML solution for nebulization 2.5 mg INHALATION Q2H PRN (Reason: Dyspnea, wheezing) ondansetron HCl 8 MG tablet 8 mg PO Q8H PRN (Reason: Nausea) phenazopyridine [Pyridium] 200 MG tablet 200 mg PO Q8H PRN (Reason: Bladder Spasms) duloxetine [Cymbalta] 60 mg capsule,delayed release(DR/EC) 60 mg PO DAILY ferrous sulfate [Feosol] 325 mg (65 mg iron) tablet 325 mg PO DAILY famotidine 40 mg tablet 40 mg PO QHS fluticasone propionate [24 Hour Allergy Relief] 50 mcg/actuation spray,suspension 1 spray intranasal DAILY PRN (Reason: allergy symptoms) Rx Instructions: administer into each nostril Gemtesa 75 mg tablet 75 mg PO DAILY pregabalin [Lyrica] 75 mg capsule 75 mg PO QHS magnesium hydroxide [Dulcolax (magnesium hydroxide)] 400 mg/5 mL suspension 30 ml PO DAILY PRN (Reason: constipation) hydrocodone-acetaminophen 5-325 mg tablet 1 tab PO BID PRN PRN (Reason: pain) 3 Days Qty: 6 0RF Discontinued guaifenesin 100 mg/5 mL liquid 200 mg PO Q4H PRN (Reason: cough) furosemide 20 mg Tablet 60 mg PO DAILY Qty: 0 0RF hydrocodone-acetaminophen 7.5-325 mg tablet 1 tab PO Q12H PRN (Reason: pain) cephalexin 250 mg capsule 250 mg PO QHS Referrals / Follow Up: Bobby Pinto MD [Primary Care Provider] - Within 2 Weeks Disposition Disposition (needs filled in before D/C Order can be placed): [facility]
--- NOTE | 2023-10-06 13:16 | PCM.DC.SUM ---
Providers Date of Admission: 09/30/23 Primary Care Physician: Dr. Bobby Pinto MD Consultations 10/01/23 07:48 Consult: Straightener And Aligner / Pulmonary Medicine Routine Consulting Provider: Intensivists/Pulmonary Med Reason for Consult: hypoxia EMERGENT Consult: No Notified: No Date Notified: 10/01/23 Time Notified: 07:48 10/01/23 08:39 Consult: Straightener And Aligner / Pulmonary Medicine Routine Consulting Provider: Intensivists/Pulmonary Med Reason for Consult: atypical pneumonia EMERGENT Consult: No Notified: Yes Date Notified: 10/01/23 Time Notified: 08:40 Method of Notification: Text Reason For Visit: ATYPICAL PNEUMONIA & BRONCHITIS Diagnosis Discharge Diagnosis (1) CHF (congestive heart failure): Status: Acute Code(s): I50.9 - Heart failure, unspecified Plan Acute HFpEF EF 65% on echo from 06/24/23 Pneumonia ruled out Was treated with IV furosemide, since changed to PO. BP on low end of normal, therefore, hold off initiating ACEi/ARB Debility: to SNF today. Chronic conditions: Chronic respiratory failure: on chronic oxygen. Wean as tolerated. obstructive sleep apnea-patient refuses to be tested for obstructive sleep apnea, she has a history of sleep apnea in the past and was intolerant of CPAP. Patient told nursing that she would be amendable to being tested for sleep apnea as an outpatient, consideration could be made to place the patient on a CPAP setting when she goes to her extended care facility. chronic depression-patient is on Wellbutrin VTE: apixaban. VTE prophylaxis: not indicated as already anticoagulated. Medications at Discharge Home Medications cholecalciferol (vitamin D3) 25 mcg (1,000 unit) tablet (Vitamin D3) 1,000 unit PO DAILY vitamin 12/29/15 pravastatin 40 mg tablet 40 mg PO QHS cholesterol 08/05/18 fluticasone propionate 50 mcg/actuation nasal spray,suspension 2 spray NASAL DAILY allergies 03/18/19 primidone 50 mg tablet 100 mg PO TID tremors 03/18/19 simethicone 80 mg chewable tablet 80 mg PO TIDCM indigestion 03/18/19 bupropion HCl 150 mg 24 hr tablet, extended release 150 mg PO DAILY DEPRESSION 08/09/20 aluminum-mag hydroxide-simethicone 400 mg-400 mg-40 mg/5 mL oral susp 30 ml PO Q4H PRN GI DISTRESS 08/20/20 ascorbic acid (vitamin C) 500 mg tablet 500 mg PO DAILY supplement 09/28/20 cyanocobalamin (vitamin B-12) 1,000 mcg/mL injection solution 1,000 mcg IM QMONTH supplement 10/23/20 nystatin 100,000 unit/gram topical powder 1 applic topical Q8H PRN Skin Irritation 07/30/21 apixaban 5 mg tablet (Eliquis) 5 mg PO BID blood thinner 09/30/21 divalproex 500 mg tablet,delayed release (Depakote) 500 mg PO BID see 09/30/21 halobetasol propionate 0.05 % topical cream 0.05 applic topical BID 11/03/21 d-mannose 500 mg capsule 1,000 mg PO BID bridgettee 12/05/21 polyethylene glycol 3350 17 gram oral powder packet (Miralax) 17 g PO Q24H PRN Constipation 12/05/21 duloxetine 60 mg capsule,delayed release (Cymbalta) 60 mg PO DAILY depression 03/19/23 famotidine 40 mg tablet 40 mg PO QHS stomach 03/19/23 ferrous sulfate 325 mg (65 mg iron) tablet (Feosol) 325 mg PO DAILY iron 03/19/23 albuterol sulfate 2.5 mg/3 mL (0.083 %) solution for nebulization 2.5 mg inhalation Q2H PRN Dyspnea, wheezing 04/16/23 omeprazole 40 mg capsule,delayed release 40 mg PO DAILY GERD 04/16/23 ondansetron HCl 8 mg tablet 8 mg PO Q8H PRN Nausea 04/16/23 oxybutynin chloride 5 mg tablet,extended release 24 hr 5 mg PO DAILY OVERACTIVE BLADDER 04/16/23 phenazopyridine 200 mg tablet (Pyridium) 200 mg PO Q8H PRN Bladder Spasms 04/16/23 acetaminophen 325 mg tablet 650 mg PO Q4H PRN pain 07/31/23 albuterol sulfate 90 mcg/actuation aerosol inhaler 2 puff inhalation Q4H PRN wheezing 07/31/23 duloxetine 30 mg capsule,delayed release 30 mg PO DAILY depression 07/31/23 fluticasone propionate 50 mcg/actuation nasal spray,suspension (24 Hour Allergy Relief) 1 spray intranasal DAILY PRN allergy symptoms 09/30/23 magnesium hydroxide 400 mg/5 mL oral suspension (Dulcolax (magnesium hydroxide)) 30 ml PO DAILY PRN constipation 09/30/23 pregabalin 75 mg capsule (Lyrica) 75 mg PO QHS pain 09/30/23 vibegron 75 mg tablet (Gemtesa) 75 mg PO DAILY see 09/30/23 L.acidophil,salivari-Bifido bifidum-Strep thermoph 175 mg capsule 2 cap PO BID #0 caps 10/06/23 furosemide 40 mg tablet 40 mg PO BIDLX #0 tabs 10/06/23 hydrocodone-acetaminophen 5-325mg 5mg-325mg 1 tab PO BID PRN PRN pain 3 days #6 tabs 10/06/23 potassium chloride 10 mEq tablet,extended release(part/cryst) 10 meq PO BIDCM #0 tabs 10/06/23 vibegron 75 mg tablet (Gemtesa) 75 mg PO DAILY #0 tabs 10/06/23 Hospital Course Operations None Procedures None Summary of Care Provided Minutes Spent on Discharge: 40 Hospital Course: Patient presented with hypoxia. [place] initially due to pneumonia but seen by pulmonology felt to be related more with heart failure. Patient received IV diuresis and improved. Patient's furosemide was changed backed over to oral and the increased dose of 40 mg twice daily up from 60 mg daily that she was taking. Patient's course was uncomplicated. Patient will be discharged to [facility] in stable condition. Weight / BMI Weight Weight: 130.9 kg Body Mass Index (BMI) 48.0 ABG / Lab / Microbiology Data 09/30/23 19:40 10/06/23 06:14 Laboratory: Laboratory Results - last 24 hr 10/06/23 06:14: Sodium 138, Potassium 4.1, Chloride 105, Carbon Dioxide 30.0, Anion Gap 3 L, BUN 31 H, Creatinine 0.67, Estim Creat Clear Calc 80.47, Est GFR (MDRD) Af Amer 110, Est GFR (MDRD) Non-Af 91, BUN/Creatinine Ratio 46.3 H, Glucose 89, Calcium 8.1 L Microbiology: Microbiology 09/30/23 19:59 Urine, Clean Catch Urine Culture - Final Culture exhibits no growth. 09/30/23 22:25 Mucosa - Nose SARS-CoV-2, Influenza & RSV (PCR) - Final D/C Instructions Discharge Diet: No restrictions Meaningful Use Info Meaningful Use Diagnoses (Choose all that apply): CHF CHF AUSTEN/ARB ordered at discharge?: No Reason AUSTEN/ARB not ordered?: Hypotension Documented LVEF (%): 65 Discharge Plan Admission Admit Date/Time: 09/30/23 23:58 Primary Reason for Your Visit: CHF Attending Provider: Teofilo Suárez Primary Care Provider: Bobby Pinto Consulting Providers: Marlon Shay; Dewayne Orlando Discharge Orders/Prescriptions Prescriptions: New furosemide 40 mg Tablet 40 mg PO BIDLX Qty: 0 0RF potassium chloride 10 mEq Tablet,Er Particles/Crystals 10 meq PO BIDCM Qty: 0 0RF L.acidoph,saliva-B.bif-S.therm 175 mg Capsule 2 cap PO BID Qty: 0 0RF Gemtesa 75 mg Tablet 75 mg PO DAILY Qty: 0 0RF Continued acetaminophen 325 mg tablet 650 mg PO Q4H PRN (Reason: pain) albuterol sulfate 90 mcg/actuation HFA aerosol inhaler 2 puff inhalation Q4H PRN (Reason: wheezing) duloxetine 30 mg capsule,delayed release(DR/EC) 30 mg PO DAILY Hold Instructions: Order Changed cholecalciferol (vitamin D3) [Vitamin D3] 1,000 UNIT tablet 1,000 unit PO DAILY pravastatin 40 MG tablet 40 mg PO QHS primidone 50 MG tablet 100 mg PO TID fluticasone propionate 1 SPRAY spray,suspension 2 spray NASAL DAILY simethicone 80 MG tablet 80 mg PO TIDCM bupropion HCl 150 MG tablet extended release 24 hr 150 mg PO DAILY alum-mag hydroxide-simeth 355 ML suspension 30 ml PO Q4H PRN (Reason: GI DISTRESS) ascorbic acid (vitamin C) 500 MG tablet 500 mg PO DAILY cyanocobalamin (vitamin B-12) 1,000 mcg/mL Solution 1,000 mcg IM QMONTH Rx Instructions: states is due the 4th of each month nystatin 100,000 unit/gram Powder 1 applic TOPICAL Q8H PRN (Reason: Skin Irritation) divalproex [Depakote] 500 mg Tablet,Delayed Release (Dr/Ec) 500 mg PO BID Eliquis 5 mg Tablet 5 mg PO BID halobetasol propionate 0.05 % cream 0.05 applic TOPICAL BID polyethylene glycol 3350 [Miralax] 17 gram Powder In Packet 17 g PO Q24H PRN (Reason: Constipation) d-mannose 500 mg Capsule 1,000 mg PO BID omeprazole 40 mg capsule,delayed release(DR/EC) 40 mg PO DAILY oxybutynin chloride 5 mg tablet extended release 24hr 5 mg PO DAILY albuterol sulfate 2.5 MG/3 ML solution for nebulization 2.5 mg INHALATION Q2H PRN (Reason: Dyspnea, wheezing) ondansetron HCl 8 MG tablet 8 mg PO Q8H PRN (Reason: Nausea) phenazopyridine [Pyridium] 200 MG tablet 200 mg PO Q8H PRN (Reason: Bladder Spasms) duloxetine [Cymbalta] 60 mg capsule,delayed release(DR/EC) 60 mg PO DAILY ferrous sulfate [Feosol] 325 mg (65 mg iron) tablet 325 mg PO DAILY famotidine 40 mg tablet 40 mg PO QHS fluticasone propionate [24 Hour Allergy Relief] 50 mcg/actuation spray,suspension 1 spray intranasal DAILY PRN (Reason: allergy symptoms) Rx Instructions: administer into each nostril Gemtesa 75 mg tablet 75 mg PO DAILY pregabalin [Lyrica] 75 mg capsule 75 mg PO QHS magnesium hydroxide [Dulcolax (magnesium hydroxide)] 400 mg/5 mL suspension 30 ml PO DAILY PRN (Reason: constipation) hydrocodone-acetaminophen 5-325 mg tablet 1 tab PO BID PRN PRN (Reason: pain) 3 Days Qty: 6 0RF Discontinued guaifenesin 100 mg/5 mL liquid 200 mg PO Q4H PRN (Reason: cough) furosemide 20 mg Tablet 60 mg PO DAILY Qty: 0 0RF hydrocodone-acetaminophen 7.5-325 mg tablet 1 tab PO Q12H PRN (Reason: pain) cephalexin 250 mg capsule 250 mg PO QHS Referrals / Follow Up: Bobby Pinto MD [Primary Care Provider] - Within 2 Weeks Disposition Disposition (needs filled in before D/C Order can be placed): [facility] Charges/Coding Visit Charges Inpatient E&M: 50670 Disch Hosp >30min
--- NOTE | 2023-10-06 14:18 | CASEMGMT ---
Social Work Precert has been obtained for pt to go to [facility]. Physician updated and pt is ready for discharge today. PASRR had been completed in [facility] and sent along with discharge orders to [facility] via [facility]. Transportation arranged for 2:30 [facility]. SW updated pt and she is agreeable to dc today. Phone call to pt's dgt and notified of dc. Bedside nurse and [facility] updated on dc time. Disposition: [facility], skilled level of care MEG Rubio
[2023-10-06 14:23] VITALS: BP 111/58; PULSE 60; RESP 18; TEMP 37.2; O2SAT 93
== END 2023-10-06 16:38 | disposition skilled nursing facility (03) | DRG 291 ==
LOC: ED 23:48 → MS3 10-01 00:09
PROVIDERS: Internal Medicine; Admitting Provider Internal Medicine; Emergency Provider Emergency Medicine; PCP Family Medicine
DX: I11.0 Hypertensive heart disease with heart failure (principal); I50.33 Acute on chronic diastolic (congestive) heart failure; J96.11 Chronic respiratory failure with hypoxia; Z68.42 Body mass index [BMI] 45.0-49.9, adult; E11.42 Type 2 diabetes mellitus with diabetic polyneuropathy; E66.01 Morbid (severe) obesity due to excess calories; D50.9 Iron deficiency anemia, unspecified; E78.5 Hyperlipidemia, unspecified; F41.8 Other specified anxiety disorders; K21.9 Gastro-esophageal reflux disease without esophagitis; M17.10 Unilateral primary osteoarthritis, unspecified knee; J40 Bronchitis, not specified as acute or chronic; G47.33 Obstructive sleep apnea (adult) (pediatric); Z79.01 Long term (current) use of anticoagulants; Z87.442 Personal history of urinary calculi; Z87.440 Personal history of urinary (tract) infections; Z98.84 Bariatric surgery status; Z86.718 Personal history of other venous thrombosis and embolism; Z86.711 Personal history of pulmonary embolism; Z99.81 Dependence on supplemental oxygen
CPT/HCPCS: 36415; 71045; 71275; 80048; 80164; 81001; 83880; 84484; 85025; 87086; 87631; 93005; 94668; 94762; 97110; 97162; 97166; 97530; 97535; 99285; P9612; Q9967; A4216; J1940; J3420

== ENCOUNTER 2023-10-27 07:02 | Day surgery (SDC) | payer MEDICARE, MEDICAID, SELFPAY ==
[2023-10-27 07:27] VITALS: BP 103/72; PULSE 65; RESP 18; TEMP 36.5; O2SAT 96; BMI 45.8
[2023-10-27] MEDS: Lactated Ringers 1,000 ML 15 ML IV (07:38)
--- NOTE | 2023-10-27 08:06 | RAD_ITS ---
PROCEDURE: Left L4-S1 radiofrequency ablation. DATE OF EXAMINATION: October 27, 2023. INDICATION: Female, 78 years old. Low back pain. FLUOROSCOPY TIME (if supplied): (25.6 seconds) minutes/seconds. 10.02 mGy. 4 fluoroscopic images were submitted. RAD/Lumbar Spine 2 or 3 Views IMPRESSION: Intraoperative imaging provided for left L4-S1 radiofrequency ablation. Electronically Signed: Joshua Rosario MD at 14:49 EDT ,
[2023-10-27] MEDS: Lidocaine 1% (30 ml sdv) 30 ML Vial (08:13)
[2023-10-27] MEDS: MethylPREDNISolone Acetate 40 MG/ML Vial (08:14)
--- NOTE | 2023-10-27 08:30 | PCM.OPRPT ---
Report of Operation Date of Procedure: 10/27/23 Pre-Operative Diagnosis: Lumbosacral spondylosis, lumbosacral degenerative disc disease, lumbar facet arthropathy Post-Operative Diagnosis: Lumbosacral spondylosis, lumbosacral degenerative disc disease, lumbar facet arthropathy Surgery/Procedure Performed:: Left-sided lumbar radiofrequency ablation of the medial branch L4, L5, S1 Type of Anesthesia: MAC Estimated Blood Loss (mL): Minimal Description of Procedure: History and physical today was reviewed. Risks and benefits of procedure explained. The patient understood, agreed to the procedure and informed consent was obtained. IV inserted per routine protocol. The patient was taken to the operating room, placed in the prone position with a pillow positioned underneath the abdomen. The left side of the lower back was prepped and draped in a sterile fashion using iodine x 3. Under fluoroscopy guidance, on an oblique view, the L3 through S1 vertebral bodies were visualized. The skin and subcutaneous tissue was anesthetized with approximately 10 mL of 1% lidocaine using a 25-gauge regular needle. Under direct visualization with fluoroscopy at approximately 25-degree angle, starting on the left L3, ending on the left S1 passing through the L4-L5 using a 20-gauge 15 cm with a 10 mm curved active tip radiofrequency ablation needle the needle passed through the skin. The tip of the needle was maneuvered and directed towards the superior and medial gutter of the transverse process at the vicinity of the medial branch. Once the tip of the needle was in contact with the bone, the needle pulled approximately 2 mm up the bone. The stylet of each needle was then removed. After negative aspiration of blood with CSF and confirmation of AP as well as oblique view, radiofrequency ablation probe was then inserted at each level. Impedance was then recorded at L3 to be 330, at L4 381, at L5 382, at S1 322 ohm. Motor-evoked potential was then initiated to 1.5 volt without any motor response at each corresponding level. The probe was then removed intact and a total of 6 mL preservative-free 1% lidocaine was injected in divided doses between those 4 levels after negative aspiration of blood with CSF. The radiofrequency ablation probe was then reinserted after confirmation of AP, oblique as well as lateral view. Radiofrequency ablation was then initiated to 80 degrees Celsius for 90 seconds at each level. Once concluded, the probe was then removed intact and a total of 6 mL of preservative-free 0.25% Marcaine with 40 mg Depo-Medrol was injected in divided doses between those 4 levels. The needles were then removed intact. The patient experienced no signs or symptoms of intrathecal, intravascular injection. The patient experienced no paraesthesia. The procedure was completed without any apparent difficulty, any complication. The patient appeared to tolerate well. Sensory as well as motor exam was unchanged from prior to procedure. ASSESSMENT AND PLAN: This is a 78-year-old female with lumbosacral spondylosis, lumbosacral degenerative disc disease, lumbar facet arthropathy, status post left-sided lumbar radiofrequency ablation of the medial branch L4 through S1. The patient will continue her current medications. The patient will follow up in approximately 2 weeks for reevaluation. Complications None
[2023-10-27 08:31] VITALS: BP 103/72; BP 119/55; PULSE 66; RESP 16; TEMP 36.7; O2SAT 100
[2023-10-27 08:35] VITALS: BP 103/52; BP 103/72; PULSE 62; RESP 16; O2SAT 94
[2023-10-27 08:40] VITALS: BP 103/72; BP 118/54; PULSE 63; RESP 16; TEMP 36.5; O2SAT 96
[2023-10-27 08:58] VITALS: BP 103/72
== END 2023-10-27 09:16 | disposition home or self-care (01) ==
LOC: SDC 07:04 → AC 07:05
PROVIDERS: PCP Family Medicine; Referring Provider Anesthesiology Pain Medicine; Visit Provider Anesthesiology Pain Medicine
PROC: (CPT 64635; principal; 2023-10-27 07:55)
DX: M47.817 Spondylosis without myelopathy or radiculopathy, lumbosacral region (principal); I50.9 Heart failure, unspecified; M51.37 Other intervertebral disc degeneration, lumbosacral region; M46.96 Unspecified inflammatory spondylopathy, lumbar region; G47.33 Obstructive sleep apnea (adult) (pediatric); F32.A Depression, unspecified; K21.9 Gastro-esophageal reflux disease without esophagitis; Z86.718 Personal history of other venous thrombosis and embolism; Z79.899 Other long term (current) drug therapy; Z79.51 Long term (current) use of inhaled steroids; Z79.01 Long term (current) use of anticoagulants
CPT/HCPCS: 64635; 64636; 01992; 72100; 76000; J7120

== ENCOUNTER → 2023-11-03 | Outpatient (REF) | payer MEDICARE, MEDICAID, SELFPAY ==
[2023-11-03 10:27] LABS: Anion Gap 3 (5-15); BUN 18 mg/dL (7-18); BUN/Creat Ratio 21.7 RATIO (10-20); Calcium,Total 8.3 mg/dL (8.5-10.1); Chloride 108 mmol/L (98-107); Creatinine, Serum 0.83 mg/dL (0.55-1.02); EST Glomerular Filtration Rate 71 mL/min (>60); Est Glom Filt Rate - Afr Amer 86 mL/min (>60); Glucose 84 mg/dL (74-106); Potassium 3.8 mmol/L (3.5-5.1); Sodium Level 139 mmol/L (136-145)
== END ==
LOC: OLS.SW 05:00
PROVIDERS: PCP Family Medicine; Visit Provider Family Medicine
DX: I11.0 Hypertensive heart disease with heart failure (principal); I50.33 Acute on chronic diastolic (congestive) heart failure; J96.11 Chronic respiratory failure with hypoxia; E78.5 Hyperlipidemia, unspecified
CPT/HCPCS: 36415; 80048

== ENCOUNTER → 2023-11-10 | Outpatient (REF) | payer MEDICARE, MEDICAID, SELFPAY ==
[2023-11-10 09:37] LABS: Anion Gap 2 (5-15); BUN 23 mg/dL (7-18); BUN/Creat Ratio 31.8 RATIO (10-20); Calcium,Total 8.1 mg/dL (8.5-10.1); Chloride 108 mmol/L (98-107); Creatinine, Serum 0.72 mg/dL (0.55-1.02); EST Glomerular Filtration Rate 83 mL/min (>60); Est Glom Filt Rate - Afr Amer 100 mL/min (>60); Glucose 86 mg/dL (74-106); Potassium 4.1 mmol/L (3.5-5.1); Sodium Level 139 mmol/L (136-145)
== END ==
LOC: OLS.SWAL 04:00
PROVIDERS: PCP Family Medicine; Referring Provider Family Medicine; Visit Provider Family Medicine
DX: I51.9 Heart disease, unspecified (principal)
CPT/HCPCS: 36415; 80048

== ENCOUNTER → 2023-11-10 | Outpatient (CLI) | payer MEDICARE, MEDICAID, SELFPAY | END | disposition home or self-care (01) | PROVIDERS: PCP Family Medicine; Visit Provider Nurse Practitioner Acute Care | DX: G47.33 Obstructive sleep apnea (adult) (pediatric) (principal) | CPT/HCPCS: 36415; 80048; 95810 ==

== ENCOUNTER → 2023-11-11 | Outpatient (REF) | payer MEDICARE, MEDICAID, SELFPAY ==
[2023-11-11 08:36] LABS: Anion Gap 5 (5-15); BUN 22 mg/dL (7-18); BUN/Creat Ratio 30.7 RATIO (10-20); Calcium,Total 8.3 mg/dL (8.5-10.1); Chloride 107 mmol/L (98-107); Creatinine, Serum 0.72 mg/dL (0.55-1.02); EST Glomerular Filtration Rate 84 mL/min (>60); Est Glom Filt Rate - Afr Amer 101 mL/min (>60); Glucose 87 mg/dL (74-106); Potassium 4.2 mmol/L (3.5-5.1); Sodium Level 140 mmol/L (136-145)
== END ==
LOC: OLS.SWAL 05:00
PROVIDERS: PCP Family Medicine; Visit Provider Family Medicine
DX: I51.9 Heart disease, unspecified (principal)
CPT/HCPCS: 36415; 80048

== ENCOUNTER → 2023-11-18 | Outpatient (REF) | payer MEDICARE, MEDICAID, SELFPAY ==
[2023-11-18 08:31] LABS: Anion Gap 4 (5-15); BUN 19 mg/dL (7-18); Calcium,Total 7.8 mg/dL (8.5-10.1); Chloride 112 mmol/L (98-107); EST Glomerular Filtration Rate 86 mL/min (>60); Est Glom Filt Rate - Afr Amer 104 mL/min (>60); Glucose 85 mg/dL (74-106); Potassium 4.2 mmol/L (3.5-5.1); Sodium Level 141 mmol/L (136-145)
== END ==
LOC: OLS.SWAL 05:00
PROVIDERS: PCP Family Medicine; Visit Provider Family Medicine
DX: I51.9 Heart disease, unspecified (principal)
CPT/HCPCS: 36415; 80048

== ENCOUNTER → 2023-11-19 | Outpatient (CLI) | payer MEDICARE, MEDICAID, SELFPAY ==
--- NOTE | 2023-11-19 16:12 | RAD_ITS ---
INDICATION: fall PAIN TO LEFT SHOULDER AFTER FALLING. BEST IMAGES POSSIBLE DUE TO PT LIMITED ROM EXAMINATION/TECHNIQUE: X-RAY - LEFT XR Shoulder Min 2 Views 4 VIEWS COMPARISON: Left shoulder x-rays 11/07/2022 FINDINGS: BONES: No fracture demonstrated. Marked degenerative changes at the glenohumeral joint, with mild degenerative changes at the acromioclavicular joint. Not significantly changed compared to prior. JOINTS: No dislocation. SOFT TISSUES: Unremarkable. RAD/Shoulder min 2 Views IMPRESSION: No evidence of fracture. Degenerative changes. Electronically Signed: Nikki Arriaza MD at 5:11 EDT ,
== END | disposition home or self-care (01) ==
LOC: MTRAD 15:50
PROVIDERS: PCP Family Medicine; Referring Provider Family Medicine; Visit Provider Family Medicine
DX: M25.512 Pain in left shoulder (principal)
CPT/HCPCS: 73030

== ENCOUNTER → 2023-11-21 09:00 | Outpatient (REF) | payer MEDICARE, MEDICAID, SELFPAY ==
[2023-11-21 14:22] LABS: Mucous, Urine 0 SEEN /hpf (<or=2+); Red Blood Cells-Urine 0 SEEN /hpf (0-5)
[2023-11-21 14:26] LABS: Color, Urine Amber (Yellow); Glucose, Dipstick Normal (Normal); Ketone-Dipstick Negative (Negative); Leukocyte Esterase-Dipstick 500 /ul (Negative); Nitrite-Dipstick Positive (Negative); Occult Blood-Urine Negative /ul (Negative); Protein-Dipstick 15 mg/dl (Negative); Urine Clarity Clear (Clear); Urine Urobilinogen 4 mg/dl (Normal)
[2023-11-21 14:39] LABS: Urine Bilirubin Dipstick 1 mg/dL (Negative)
[2023-11-21 14:41] LABS: White Blood Cells 25-50 SEEN /hpf (0-5)
[2023-11-21 14:42] LABS: Bacteria 1+ /hpf (None Seen); Calcium Oxalate Crystals Ur 1+ /hpf (<or=2+); Squamous Epithelial Cells - UA 0-5 SEEN /hpf (5-10)
== END ==
LOC: OLS.SWAL 09:00
PROVIDERS: PCP Family Medicine; Referring Provider Urology; Visit Provider Urology
DX: N39.0 Urinary tract infection, site not specified (principal)
CPT/HCPCS: 81001; 87086; 87088

== ENCOUNTER → 2023-11-25 05:00 | Outpatient (REF) | payer MEDICARE, MEDICAID, SELFPAY ==
[2023-11-25 09:43] LABS: Anion Gap 4 (5-15); BUN 25 mg/dL (7-18); BUN/Creat Ratio 33.2 RATIO (10-20); Calcium,Total 8.6 mg/dL (8.5-10.1); Chloride 109 mmol/L (98-107); Creatinine, Serum 0.75 mg/dL (0.55-1.02); EST Glomerular Filtration Rate 79 mL/min (>60); Est Glom Filt Rate - Afr Amer 96 mL/min (>60); Glucose 89 mg/dL (74-106); Potassium 4.3 mmol/L (3.5-5.1); Sodium Level 139 mmol/L (136-145)
== END ==
LOC: OLS.SWAL 05:00
PROVIDERS: PCP Family Medicine; Visit Provider Family Medicine
DX: I51.9 Heart disease, unspecified (principal)
CPT/HCPCS: 36415; 80048

== ENCOUNTER → 2023-12-02 05:00 | Outpatient (REF) | payer MEDICARE, MEDICAID, SELFPAY ==
[2023-12-02 10:31] LABS: Anion Gap 3 (5-15); BUN 30 mg/dL (7-18); BUN/Creat Ratio 37.5 RATIO (10-20); Calcium,Total 8.3 mg/dL (8.5-10.1); Chloride 108 mmol/L (98-107); EST Glomerular Filtration Rate 74 mL/min (>60); Est Glom Filt Rate - Afr Amer 89 mL/min (>60); Glucose 89 mg/dL (74-106); Potassium 4.3 mmol/L (3.5-5.1); Sodium Level 139 mmol/L (136-145)
== END ==
LOC: OLS.SWAL 05:00
PROVIDERS: PCP Family Medicine; Visit Provider Family Medicine
DX: I51.9 Heart disease, unspecified (principal)
CPT/HCPCS: 36415; 80048

== ENCOUNTER → 2023-12-09 | Outpatient (REF) | payer MEDICARE, MEDICAID, SELFPAY ==
[2023-12-09 09:18] LABS: Mucous, Urine 0 SEEN /hpf (<or=2+)
[2023-12-09 09:21] LABS: Color, Urine Yellow (Yellow); Glucose, Dipstick Normal (Normal); Ketone-Dipstick Negative (Negative); Leukocyte Esterase-Dipstick 100 /ul (Negative); Nitrite-Dipstick Positive (Negative); Occult Blood-Urine 10 /ul (Negative); Protein-Dipstick Negative (Negative); Specific Gravity, Urine 1.015 (1.002-1.030); Urine Clarity Sl. Cloudy (Clear); Urine Urobilinogen 4 mg/dl (Normal)
[2023-12-09 09:22] LABS: Urine Bilirubin Dipstick 3 mg/dL (Negative)
[2023-12-09 09:32] LABS: Bacteria 3+ /hpf (None Seen); Squamous Epithelial Cells - UA 0-5 SEEN /hpf (5-10)
[2023-12-09 09:33] LABS: Red Blood Cells-Urine 0-5 SEEN /hpf (0-5); White Blood Cells 5-10 SEEN /hpf (0-5)
[2023-12-09 09:35] LABS: Calcium Oxalate Crystals Ur 2+ /hpf (<or=2+)
[2023-12-09 10:02] LABS: Anion Gap 4 (5-15); BUN 27 mg/dL (7-18); BUN/Creat Ratio 38.5 RATIO (10-20); Calcium,Total 8.1 mg/dL (8.5-10.1); Chloride 110 mmol/L (98-107); EST Glomerular Filtration Rate 86 mL/min (>60); Est Glom Filt Rate - Afr Amer 104 mL/min (>60); Glucose 98 mg/dL (74-106); Potassium 4.4 mmol/L (3.5-5.1); Sodium Level 140 mmol/L (136-145)
== END ==
LOC: OLS.SWAL 08:10
PROVIDERS: PCP Family Medicine; Visit Provider Urology
DX: I51.9 Heart disease, unspecified (principal); N39.0 Urinary tract infection, site not specified
CPT/HCPCS: 36415; 80048; 81001; 87077; 87086; 87088; 87186

== ENCOUNTER 2023-12-12 23:23 | Emergency (ER) | payer MEDICARE, MEDICAID, SELFPAY ==
[2023-12-12 23:24] VITALS: BP 113/62; PULSE 81; RESP 18; TEMP 36.7; O2SAT 94; O2SAT 95; BMI 47.5
--- NOTE | 2023-12-13 00:22 | RAD_ITS ---
EXAM: XR CHEST, 1 VIEW CLINICAL INDICATION: cough TECHNIQUE: Frontal view of the chest. COMPARISON: Single view chest 09/30/2023 FINDINGS: LUNGS AND PLEURAL SPACES: Unremarkable. No consolidation or edema. No pneumothorax. No effusion. HEART: Unremarkable. Cardiac silhouette not enlarged. MEDIASTINUM: Central airways and mediastinal contour are unremarkable. BONES/JOINTS: Unremarkable. No acute fracture. SOFT TISSUES: Unremarkable. RAD/Chest 1 View (Portable) IMPRESSION: No radiographic evidence of acute cardiopulmonary disease. Electronically Signed: Rafael Ochoa MD at 1:04 EDT ,
[2023-12-13 00:45] VITALS: BP 118/106; PULSE 71; RESP 18; O2SAT 93
--- NOTE | 2023-12-13 01:02 | EX.ED.DYSGE1 ---
HPI History of Present Illness Chief Complaint: General Illness Informant: patient, family and EMS Narrative Narrative: Patient is a 78-year-old female from the residential with past medical history of obstructive sleep apnea congestive heart failure and COPD on chronic 3 L of oxygen. Reportedly she had developed a cough after being with family over the weekend. This evening residential states her pulse ox was dropping into the mid 80s despite being on her oxygen and therefore they were concerned and sent the patient in for evaluation. Patient reports that there is a long amount of tubing from the oxygen canister to her nose and she feels like her pulse ox was low because she was not receiving the proper amount based on the long tubing. However because of the low read she was sent in for evaluation [facility] Medical History Obesity CHF (congestive heart failure) Primary osteoarthritis, left shoulder Left shoulder pain Urinary tract infection Normocytic anemia Hydronephrosis Wears hearing aid Wears dentures Hematoma Uses wheelchair Walker as ambulation aid Bladder disease Low iron Back pain Injury of head and neck Non-smoker Shortness of breath on exertion History of pain when walking History of edema Hx of peripheral neuropathy History of stress test Hiatal hernia Restless legs High cholesterol Chronic UTI GERD (gastroesophageal reflux disease) Depression Arthritis Kidney stones GI bleed Pulmonary embolism 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 Chronic neuropathic pain Anxiety and depression GERD (gastroesophageal reflux disease) HLD (hyperlipidemia) Cystitis Segmental and somatic dysfunction of cervical region Diabetic neuropathy associated with type 2 diabetes mellitus Chronic anticoagulation DM II (diabetes mellitus, type II), controlled ROXIE (obstructive sleep apnea) Morbid obesity with BMI of 45.0-49.9, adult Chronic pain following surgery or procedure Segmental and somatic dysfunction of pelvic region Facet arthropathy, lumbar Segmental and somatic dysfunction of thoracic region Segmental and somatic dysfunction of lumbar region Closed left arm fracture Polycystic ovaries Osteoarthritis Neuropathy History of gallstones Diabetes Carpal tunnel syndrome Cataracts, both eyes History of DVT (deep vein thrombosis) Home Medications ?Medication ?Instructions ?Recorded ?Last Taken ?Type cholecalciferol (vitamin D3) 25 1,000 unit PO DAILY vitamin 12/29/15 04/16/23 History mcg (1,000 unit) tablet (Vitamin D3) pravastatin 40 mg tablet 40 mg PO QHS cholesterol 08/05/18 04/15/23 History primidone 50 mg tablet 100 mg PO TID tremors 03/18/19 04/16/23 History simethicone 80 mg chewable tablet 80 mg PO TIDCM indigestion 03/18/19 04/16/23 History bupropion HCl 150 mg 24 hr tablet, 150 mg PO DAILY DEPRESSION 08/09/20 04/16/23 History extended release ascorbic acid (vitamin C) 500 mg 500 mg PO DAILY supplement 09/28/20 04/16/23 History tablet cyanocobalamin (vitamin B-12) 1,000 mcg IM QMONTH supplement 10/23/20 08/24/21 History 1,000 mcg/mL injection solution nystatin 100,000 unit/gram topical 1 applic topical Q8H PRN Skin 07/30/21 Unknown History powder Irritation apixaban 5 mg tablet (Eliquis) 5 mg PO BID blood thinner 09/30/21 10/24/23 History d-mannose 500 mg capsule 1,000 mg PO BID ssee md 12/05/21 04/16/23 History polyethylene glycol 3350 17 gram 17 g PO Q24H PRN Constipation 12/05/21 Unknown History oral powder packet (Miralax) famotidine 40 mg tablet 40 mg PO QHS stomach 03/19/23 04/15/23 History ferrous sulfate 325 mg (65 mg 325 mg PO DAILY iron 03/19/23 04/16/23 History iron) tablet (Feosol) albuterol sulfate 2.5 mg/3 mL 2.5 mg inhalation Q2H PRN Dyspnea, 04/16/23 Unknown History (0.083 %) solution for nebulization wheezing omeprazole 40 mg capsule,delayed 40 mg PO DAILY GERD 04/16/23 04/16/23 History release ondansetron HCl 8 mg tablet 8 mg PO Q8H PRN Nausea 04/16/23 Unknown History oxybutynin chloride 5 mg 5 mg PO DAILY OVERACTIVE BLADDER 04/16/23 04/16/23 History tablet,extended release 24 hr phenazopyridine 200 mg tablet 200 mg PO Q8H PRN Bladder Spasms 04/16/23 Unknown History (Pyridium) acetaminophen 325 mg tablet 650 mg PO Q4H PRN pain/ elevated 07/31/23 Unknown History temp albuterol sulfate 90 mcg/actuation 2 puff inhalation Q4H PRN wheezing 07/31/23 Unknown History aerosol inhaler magnesium hydroxide 400 mg/5 mL 30 ml PO DAILY PRN constipation 09/30/23 Unknown History oral suspension (Dulcolax (magnesium hydroxide)) pregabalin 75 mg capsule (Lyrica) 75 mg PO QHS pain 09/30/23 Unknown History L.acidophil,salivari-Bifido 2 cap PO BID #0 caps 10/06/23 Unknown Rx bifidum-Strep thermoph 175 mg capsule furosemide 40 mg tablet 40 mg PO BIDLX #0 tabs 10/06/23 Unknown Rx hydrocodone-acetaminophen 5-325mg 1 tab PO BID PRN PRN pain 3 days 10/06/23 Unknown Rx 5mg-325mg #6 tabs potassium chloride 10 mEq 10 meq PO BIDCM #0 tabs 10/06/23 Unknown Rx tablet,extended release(part/cryst) vibegron 75 mg tablet (Gemtesa) 75 mg PO DAILY #0 tabs 10/06/23 Unknown Rx acetaminophen 325 mg rectal 325 mg NM Q4H PRN fever or pain 10/15/23 Unknown History suppository dextrose 40 % oral gel (Glucose 10 g PO Q15M PRN 10/15/23 Unknown History Gel) fluticasone propionate 50 2 spray intranasal DAILY PRN 10/15/23 Unknown History mcg/actuation nasal allergy symptoms spray,suspension (24 Hour Allergy Relief) glucagon HCl 1 mg solution for 1 mg subcut Q20M PRN 10/15/23 Unknown History injection (Glucagon (HCl) Emergency Kit) guaifenesin 100 mg/5 mL oral liquid 200 mg PO Q4H PRN 10/15/23 Unknown History mineral oil (Fleet Mineral Oil 118 ml NM DAILY PRN 10/15/23 Unknown History enema) aluminum-mag hydroxide-simethicone 30 ml PO Q4H PRN 10/31/23 Unknown History 200 mg-200 mg-20 mg/5 mL oral susp divalproex 500 mg tablet,delayed 500 mg PO BID 10/31/23 Unknown History release halobetasol propionate 0.05 % 1 applic topical BID 10/31/23 Unknown History topical cream duloxetine 30 mg capsule,delayed 90 mg PO DAILY depression 11/20/23 Unknown History release Allergy/AdvReac Type Severity Reaction Status Date / Time ampicillin (From Unasyn) Allergy Severe Blisters Verified 11/20/23 14:26 on tongue /throat difficulty breathing sore tongue/ warfarin sodium (From Allergy Severe Low red Verified 11/20/23 14:26 Coumadin) blood cells Family History Father Colon cancer Hypertension Mother Hypertension Diabetes Grandmother Hypertension Surgical History History of bilateral cataract extraction History of tonsillectomy Hx of cystoscopy Hx of cystoscopy History of cystoscopy S/P hysterectomy H/O cardiac catheterization (05/22/11) History of cholecystectomy History of embolic filter insertion History of carpal tunnel surgery History of hysterectomy Total knee replacement status History of gastric bypass Social History housing: assisted living facility Smoking Status: Never smoker alcohol intake: current alcohol intake frequency: holidays/special occasions only substance use type: does not use what type of physical activity do you participate in: walking and aerobics frequency: 1-2 times per week ROS ROS ED Constitutional Constitutional ED: Denies chills or fever(s) Eyes Eyes: Denies change in vision ENT ENT ED: Reports rhinorrhea; Denies sore throat Cardiovascular Cardiovascular: Denies chest pain, palpitations or racing heartbeat Respiratory/Chest Respiratory/Chest: Reports cough and dyspnea Gastrointestinal Gastrointestinal: Denies abdominal pain, diarrhea, nausea or vomiting Genitourinary Genitourinary ED: Denies dysuria Musculoskeletal Musculoskeletal: Denies myalgias Integumentary Denies rash Neurologic Neurologic: Denies headache(s) Hematologic/Lymphatic Hematologic/Lymphatic: Reports easy bleeding and easy bruising Allergic/Immunologic Allergic/Immunologic ED: Denies mouth swelling or tongue swelling EXAM Physical Exam Const Vital Signs: 12/12/23 23:24 12/12/23 23:24 12/13/23 00:45 Temperature 98.1 F Temperature Source Temporal Pulse Rate 81 71 Respiratory Rate 18 18 Respiratory Effort Normal Non-Labored Respiratory Pattern Normal Blood Pressure 113/62 118/106 H Blood Pressure Mean 79 110 Pulse Ox 94 93 Oxygen Delivery Method Nasal Cannula Nasal Cannula Oxygen Flow Rate (L/min) 2 Positive well nourished, well developed and obese General Appearance ED: well developed and pallor Nutritional Appearance: obese HEENT Reports moist mucous membranes HEENT Narrative: There is cobblestoning noted in the posterior pharynx but no tongue or lip swelling no oral lesions no airway edema or compromise Eyes PERRL and EOMs intact bilaterally General Eye ED: Negative for pale conjunctiva or scleral icterus Neck supple and no JVD Chest Wall palpation of chest normal Resp normal respiratory effort and clear to auscultation bilaterally Resp Narrative: Breath sounds are diminished throughout but overall clear to auscultation without signs of respiratory distress Cardio regular rate and regular rhythm Extremity Extremity Narrative: +1-2 pitting edema to the bilateral lower extremities that is equal and symmetric Negative Homans' sign bilaterally Neuro oriented x3, CN's II-XII intact bilaterally and no sensory deficits noted Sensorium / Orientation: alert Motor Exam: strength 5/5 throughout Psych mental status grossly normal Skin no rashes or lesions noted Skin Narrative: Capillary refills less than 3 seconds General Skin Exam: pallor; Negative for jaundice MDM MDM MDM Narrative Medical decision making narrative: Patient arrived to the ER with stable vitals and was satting anywhere from 92 to 96% on her home 2 to 3 L. Differential diagnosis is for pneumonia versus pneumothorax versus congestive heart failure. There is also concern for potential upper respiratory tract infection caused by COVID influenza RSV as she has a cough and congestion was around sick contacts over the weekend. The patient's pulse ox has been normal in the ER without any desaturation she has not had any signs of respiratory distress. Therefore at this time I elected to only perform a chest x-ray to check for potential lung infection or CHF exacerbation. X-ray revealed no acute findings. Therefore at this time as patient's oxygen saturation is normal she has no signs of distress and negative chest x-ray I do not feel there is need for further workup and she is otherwise safe for discharge History & Record Review Discussion w/independent historian: Patient and Family Radiography Diagnostic Testing: Clinical Impression(s) from Imaging Studies Chest X-Ray 12/13/23 00:22 IMPRESSION: No radiographic evidence of acute cardiopulmonary disease. Electronically Signed: Rafael Ochoa MD at 1:04 EDT , Chest x-ray as interpreted by the emergency medicine physician reveals no acute infiltrate pneumothorax or pleural effusion Discharge Plan Triage Chief Complaint: General Illness ED Provider: Walter Nance Dx/Rx/DC Orders Clinical Impression: Viral upper respiratory tract infection with cough, CHF (congestive heart failure), ROXIE (obstructive sleep apnea), HLD (hyperlipidemia), Current use of [facility] anticoagulation Instructions: ED URI, Viral, No Abx (Adult) Prescriptions: No Action acetaminophen 325 mg tablet 650 mg PO Q4H PRN (Reason: pain/ elevated temp ) albuterol sulfate 90 mcg/actuation HFA aerosol inhaler 2 puff inhalation Q4H PRN (Reason: wheezing) duloxetine 30 mg capsule,delayed release(DR/EC) 90 mg PO DAILY dextrose [Glucose Gel] 40 % gel 10 g PO Q15M PRN Rx Instructions: until symptoms of low blood sugar are controlled guaifenesin 100 mg/5 mL liquid 200 mg PO Q4H PRN glucagon HCl [Glucagon (HCl) Emergency Kit] 1 mg recon soln 1 mg subcut Q20M PRN Rx Instructions: until target blood sugar attained mineral oil [Fleet Mineral Oil] Enema 118 ml NM DAILY PRN Rx Instructions: discard any unused portion acetaminophen 325 mg suppository 325 mg NM Q4H PRN (Reason: fever or pain) divalproex 500 mg tablet,delayed release (DR/EC) 500 mg PO BID alum-mag hydroxide-simeth 200-200-20 mg/5 mL suspension 30 ml PO Q4H PRN cholecalciferol (vitamin D3) [Vitamin D3] 1,000 UNIT tablet 1,000 unit PO DAILY pravastatin 40 MG tablet 40 mg PO QHS primidone 50 MG tablet 100 mg PO TID simethicone 80 MG tablet 80 mg PO TIDCM bupropion HCl 150 MG tablet extended release 24 hr 150 mg PO DAILY ascorbic acid (vitamin C) 500 MG tablet 500 mg PO DAILY cyanocobalamin (vitamin B-12) 1,000 mcg/mL Solution 1,000 mcg IM QMONTH Rx Instructions: states is due the 4th of each month nystatin 100,000 unit/gram Powder 1 applic TOPICAL Q8H PRN (Reason: Skin Irritation) Eliquis 5 mg Tablet 5 mg PO BID halobetasol propionate 0.05 % cream 1 applic TOPICAL BID polyethylene glycol 3350 [Miralax] 17 gram Powder In Packet 17 g PO Q24H PRN (Reason: Constipation) d-mannose 500 mg Capsule 1,000 mg PO BID omeprazole 40 mg capsule,delayed release(DR/EC) 40 mg PO DAILY oxybutynin chloride 5 mg tablet extended release 24hr 5 mg PO DAILY albuterol sulfate 2.5 MG/3 ML solution for nebulization 2.5 mg INHALATION Q2H PRN (Reason: Dyspnea, wheezing) ondansetron HCl 8 MG tablet 8 mg PO Q8H PRN (Reason: Nausea) phenazopyridine [Pyridium] 200 MG tablet 200 mg PO Q8H PRN (Reason: Bladder Spasms) ferrous sulfate [Feosol] 325 mg (65 mg iron) tablet 325 mg PO DAILY famotidine 40 mg tablet 40 mg PO QHS pregabalin [Lyrica] 75 mg capsule 75 mg PO QHS magnesium hydroxide [Dulcolax (magnesium hydroxide)] 400 mg/5 mL suspension 30 ml PO DAILY PRN (Reason: constipation) furosemide 40 mg Tablet 40 mg PO BIDLX Qty: 0 0RF potassium chloride 10 mEq Tablet,Er Particles/Crystals 10 meq PO BIDCM Qty: 0 0RF L.acidoph,saliva-B.bif-S.therm 175 mg Capsule 2 cap PO BID Qty: 0 0RF Gemtesa 75 mg Tablet 75 mg PO DAILY Qty: 0 0RF hydrocodone-acetaminophen 5-325 mg tablet 1 tab PO BID PRN PRN (Reason: pain) 3 Days Qty: 6 0RF fluticasone propionate [24 Hour Allergy Relief] 50 mcg/actuation spray,suspension 2 spray intranasal DAILY PRN (Reason: allergy symptoms) Rx Instructions: administer into each nostril Primary Care Provider: Bobby Pinto Referrals: Bobby Pinto MD [Primary Care Provider] - Activity Restrictions/Additional Instructions: Continue all of your home medications as directed by your doctor. As you require constant nasal cannula oxygen your pulse ox should run between 90 and 95%. If you values constantly run 85% or lower this would cause because of concern and would need reevaluated. Please return to the ER should you have any further concerns Print Language: Ghanaian Disposition Disposition: Home, Self Care
--- NOTE | 2023-12-13 01:32 | ED.RN ---
REPORT CALLED TO VINAYAK AT [facility].
[2023-12-13 02:00] VITALS: BP 117/95; PULSE 70; RESP 16; O2SAT 94
[2023-12-13 04:00] VITALS: RESP 18; O2SAT 98
[2023-12-13 05:20] VITALS: BP 129/81; PULSE 73; RESP 18; TEMP 36.6; O2SAT 98
== END 2023-12-13 05:23 | disposition home or self-care (01) ==
PROVIDERS: Emergency Provider Emergency Medicine; PCP Family Medicine; Visit Provider Emergency Medicine
DX: J06.9 Acute upper respiratory infection, unspecified (principal); I50.9 Heart failure, unspecified; J44.9 Chronic obstructive pulmonary disease, unspecified; E11.9 Type 2 diabetes mellitus without complications; G47.33 Obstructive sleep apnea (adult) (pediatric); E78.5 Hyperlipidemia, unspecified; Z79.01 Long term (current) use of anticoagulants; R05.9 Cough, unspecified; E66.9 Obesity, unspecified; Z90.49 Acquired absence of other specified parts of digestive tract; Z90.710 Acquired absence of both cervix and uterus; Z98.84 Bariatric surgery status; Z86.718 Personal history of other venous thrombosis and embolism; K21.9 Gastro-esophageal reflux disease without esophagitis; Z99.81 Dependence on supplemental oxygen; D64.9 Anemia, unspecified
CPT/HCPCS: 71045; 99282

== ENCOUNTER → 2023-12-16 05:55 | Outpatient (REF) | payer MEDICARE, MEDICAID, SELFPAY ==
[2023-12-16 09:33] LABS: Anion Gap 2 (5-15); BUN 21 mg/dL (7-18); BUN/Creat Ratio 29.5 RATIO (10-20); Calcium,Total 8.1 mg/dL (8.5-10.1); Chloride 110 mmol/L (98-107); Creatinine, Serum 0.71 mg/dL (0.55-1.02); EST Glomerular Filtration Rate 84 mL/min (>60); Est Glom Filt Rate - Afr Amer 102 mL/min (>60); Glucose 88 mg/dL (74-106); Potassium 4.5 mmol/L (3.5-5.1); Sodium Level 140 mmol/L (136-145)
== END ==
LOC: OLS.SWAL 05:55
PROVIDERS: PCP Family Medicine; Visit Provider Family Medicine
DX: I51.9 Heart disease, unspecified (principal)
CPT/HCPCS: 36415; 80048

== ENCOUNTER → 2023-12-23 | Outpatient (REF) | payer MEDICARE, MEDICAID, SELFPAY ==
[2023-12-23 08:47] LABS: Anion Gap 4 (5-15); BUN 21 mg/dL (7-18); BUN/Creat Ratio 31.5 RATIO (10-20); Calcium,Total 7.9 mg/dL (8.5-10.1); Chloride 111 mmol/L (98-107); Creatinine, Serum 0.67 mg/dL (0.55-1.02); EST Glomerular Filtration Rate 91 mL/min (>60); Est Glom Filt Rate - Afr Amer 110 mL/min (>60); Glucose 87 mg/dL (74-106); Potassium 4.2 mmol/L (3.5-5.1); Sodium Level 140 mmol/L (136-145)
== END ==
LOC: OLS.SWAL 05:00
PROVIDERS: PCP Family Medicine; Visit Provider Family Medicine
DX: I51.9 Heart disease, unspecified (principal)
CPT/HCPCS: 36415; 80048

== ENCOUNTER → 2023-12-30 05:00 | Outpatient (REF) | payer MEDICARE, MEDICAID, SELFPAY ==
[2023-12-30 10:30] LABS: Anion Gap 2 (5-15); BUN 27 mg/dL (7-18); BUN/Creat Ratio 38.3 RATIO (10-20); Calcium,Total 7.9 mg/dL (8.5-10.1); Chloride 109 mmol/L (98-107); EST Glomerular Filtration Rate 85 mL/min (>60); Est Glom Filt Rate - Afr Amer 103 mL/min (>60); Glucose 84 mg/dL (74-106); Potassium 4.4 mmol/L (3.5-5.1); Sodium Level 139 mmol/L (136-145)
== END ==
LOC: OLS.SWAL 05:00
PROVIDERS: PCP Family Medicine; Visit Provider Family Medicine
DX: I51.9 Heart disease, unspecified (principal)
CPT/HCPCS: 36415; 80048

== ENCOUNTER → 2024-01-06 | Outpatient (REF) | payer MEDICARE, MEDICAID, SELFPAY ==
[2024-01-06 09:31] LABS: Mucous, Urine 0 SEEN /hpf (<or=2+)
[2024-01-06 09:55] LABS: Color, Urine Yellow (Yellow); Glucose, Dipstick Normal (Normal); Ketone-Dipstick Negative (Negative); Leukocyte Esterase-Dipstick 100 /ul (Negative); Nitrite-Dipstick Positive (Negative); Occult Blood-Urine 10 /ul (Negative); Protein-Dipstick Negative (Negative); Urine Clarity Clear (Clear); Urine Urobilinogen 4 mg/dl (Normal)
[2024-01-06 09:56] LABS: Urine Bilirubin Dipstick 1 mg/dL (Negative)
[2024-01-06 10:03] LABS: Bacteria 2+ /hpf (None Seen); Calcium Oxalate Crystals Ur 2+ /hpf (<or=2+); Red Blood Cells-Urine 0-5 SEEN /hpf (0-5); Squamous Epithelial Cells - UA 0-5 SEEN /hpf (5-10); White Blood Cells 5-10 SEEN /hpf (0-5)
[2024-01-06 11:17] LABS: Anion Gap 3 (5-15); BUN 22 mg/dL (7-18); BUN/Creat Ratio 35.6 RATIO (10-20); Calcium,Total 8.3 mg/dL (8.5-10.1); Chloride 111 mmol/L (98-107); Creatinine, Serum 0.62 mg/dL (0.55-1.02); EST Glomerular Filtration Rate 99 mL/min (>60); Est Glom Filt Rate - Afr Amer 120 mL/min (>60); Glucose 87 mg/dL (74-106); Potassium 4.1 mmol/L (3.5-5.1); Sodium Level 139 mmol/L (136-145)
== END ==
LOC: OLS.SWAL 05:00
PROVIDERS: PCP Family Medicine; Referring Provider Family Medicine; Visit Provider Family Medicine
DX: N39.0 Urinary tract infection, site not specified (principal); I51.9 Heart disease, unspecified
CPT/HCPCS: 36415; 80048; 81001; 87077; 87086; 87088; 87186

== ENCOUNTER → 2024-01-23 | Outpatient (REF) | payer MEDICARE, MEDICAID, SELFPAY ==
[2024-01-23 10:53] LABS: Rheumatoid Factor < 10.0 IU/mL (<15)
[2024-01-26 14:09] LABS: ANTINUCLEAR ANTIBODIES DIRECT Negative (Negative)
[2024-01-26 15:08] LABS: Cytoplasmic Ab (C-ANCA) <1:20 titer (Neg:<1:20); Immunoglobulin G 698 mg/dL (586-1602); Perinuclear Ab (P-ANCA) <1:20 titer (Neg:<1:20)
== END ==
LOC: OLS.SWAL 05:00
PROVIDERS: PCP Family Medicine; Visit Provider Nurse Practitioner Acute Care
DX: R09.02 Hypoxemia (principal)
CPT/HCPCS: 36415; 82784; 86038; 86256; 86431

== ENCOUNTER → 2024-01-25 | Outpatient (REF) | payer MEDICARE, MEDICAID, SELFPAY ==
[2024-01-26 08:45] LABS: Mucous, Urine 0 SEEN /hpf (<or=2+); Red Blood Cells-Urine 0 SEEN /hpf (0-5)
[2024-01-26 08:56] LABS: Color, Urine Amber (Yellow); Glucose, Dipstick Normal (Normal); Ketone-Dipstick Negative (Negative); Leukocyte Esterase-Dipstick 25 /ul (Negative); Nitrite-Dipstick Positive (Negative); Occult Blood-Urine Negative /ul (Negative); Protein-Dipstick 15 mg/dl (Negative); Urine Clarity Cloudy (Clear); Urine Urobilinogen 8 mg/dl (Normal)
[2024-01-26 08:57] LABS: Urine Bilirubin Dipstick 6 mg/dL (Negative)
[2024-01-26 09:12] LABS: Bacteria 2+ /hpf (None Seen); Calcium Oxalate Crystals Ur 2+ /hpf (<or=2+); Squamous Epithelial Cells - UA 0-5 SEEN /hpf (5-10); White Blood Cells 0-5 SEEN /hpf (0-5)
== END ==
LOC: OLS.SWAL 10:00
PROVIDERS: PCP Family Medicine; Visit Provider Urology
DX: N39.0 Urinary tract infection, site not specified (principal)
CPT/HCPCS: 81001; 87077; 87086; 87088; 87186

== ENCOUNTER → 2024-02-02 | Outpatient (CLI) | payer MEDICARE, MEDICAID, SELFPAY | END | disposition home or self-care (01) | LOC: PSN 10:47 | PROVIDERS: PCP Family Medicine; Referring Provider Nurse Practitioner Acute Care; Visit Provider Nurse Practitioner Acute Care | DX: R06.02 Shortness of breath (principal) | CPT/HCPCS: 94060; 94726; 94729 ==

== ENCOUNTER 2024-02-09 06:36 | Day surgery (SDC) | payer MEDICARE, MEDICAID, SELFPAY ==
[2024-02-09] VITALS (7 sets, daily range): BP systolic 105–146; BP diastolic 26–86; PULSE 70–86; RESP 14–20; TEMP 36.3–36.6; O2SAT 92–97; BMI 48.4
--- NOTE | 2024-02-09 07:00 | RAD_ITS ---
STUDY: X-RAY - RIGHT KNEE REASON FOR EXAM: Female, 78 years old. RT GENICULAR NERVE INJECTION TECHNIQUE: 3 view(s) of the knee. COMPARISON: None. FINDINGS: 5.5 seconds of fluoroscopy of the right knee was utilized operative during genicular nerve injection in 3 images submitted for interpretation. . RAD/Fluoro Guided Needle Placement IMPRESSION: Fluoroscopy during genicular nerve injection. Electronically Signed: Conner Quintana MD at 13:40 EDT ,
--- NOTE | 2024-02-09 07:19 | PRE.ANES_ITS ---
ASA Classification* ASA Classification ASA Classification: 3 Assessment & Plan Anesthesia* Anesthesia Assessment Anesthesia Assessment: Discussed sedation and/or anesthesia options, risks, benefits, and alternatives with patient/parents/legal guardian/POA. Questions invited. The patient/parents/legal guardian/POA seems to understand and agrees to proceed with anesthesia plan. Reviewed the physical assessment, medical history, allergy history and patient home medications list prior to surgery/procedure/anesthetic and documented any changes. Performed airway and anesthesia risk assessments. Anesthesia Type Anesthesia Type: MAC (see written pre anesthesia record for full assessment) Anesthesia Focused Assessment* Airway Assessment Mouth opens: >3 cm Mallampati Score: II Focused Labs Anesthesia Preop lab: CBC WBC 4.1 K/mm3 (4.4-11.0) L 10/13/23 05:10 RBC 3.28 M/mm3 (4.2-5.4) L 10/13/23 05:10 Hgb 10.5 g/dL (12.0-15.0) L 10/13/23 05:10 Hct 33.6 % (37-47) L 10/13/23 05:10 Plt Count 216 K/mm3 (150-450) 10/13/23 05:10 CHEMISTRY Potassium 4.1 mmol/L (3.5-5.1) 01/06/24 08:25 Sodium 139 mmol/L (136-145) 01/06/24 08:25 Magnesium 2.4 mg/dL (1.6-2.6) 07/01/23 06:20 Phosphorus 2.4 mg/dL (2.5-4.9) L 06/25/23 07:02 BUN 22 mg/dL (7-18) H 01/06/24 08:25 Creatinine 0.62 mg/dL (0.55-1.02) 01/06/24 08:25 Glucose 87 mg/dL (74-106) 01/06/24 08:25 POC Glucose 169 mg/dL (70-110) H 08/11/21 18:21 TSH 2.37 uIU/mL (0.358-3.74) 09/17/23 15:35 COAG PT 14.5 SECONDS (11.7-14.9) 06/26/23 07:07 Pre-Assessment Diagnosis/Proposed Procedure Planned Operative Procedure(s): genicular n block Anesthesia History Anesthesia History - communications representative: Anesthesia History - communications representative Hx Hospitalization No 03/19/23 10:37 Any Problems With Anesthesia No 03/19/23 10:37 Cholinesterase deficiency No 03/19/23 10:37 You/Your Family Experience No 03/19/23 10:37 fever (hyperthermia) with Relationship Recent Exposure to Contagious No 10/27/23 07:27 Disease Does patient have nerve No 03/19/23 10:37 stimulator Patient instructed to have device shut off --Does patient have Pacemaker or ICD? When Was Last Pacemaker Check QUESTION #4 FULL TEXT: You/Your Family Experience fever (hyperthermia) with Anesthesia Last Oral Intake Last Oral intake: Last Oral Intake NPO since Meds taken in AM with sips of water? Meds patient instructed to take am of surgery PONV PONV - communications representative: PONV - communications representative Female HX of Motion Sickness HX of N/V After Surgery Non-Smoker Duration of Surgery greater than 60 minutes Number of Risk Factors PONV Score Height & Weight Height & Weight: Anesthesia: Height & Weight Height 5 ft 4.96 in 01/21/24 08:13 Respiratory Assessment Respiratory Assessment - communications representative: Respiratory Tract Infection Hx - communications representative Hx Respiratory Tract Infection No 03/19/23 10:37 STOP Sleep Apnea STOP Sleep Apnea - communications representative: STOP Sleep Apnea - communications representative Hx Hypertension Yes 10/02/23 11:02 Hx Sleep Apnea No 10/27/23 08:40 CPAP No 05/12/23 11:30 BIPAP No 04/17/23 02:35 Do you snore loudly (louder than talking or can be heard Do you often feel tired/ fatigued/ sleepy during daytime? Has anyone observed you stop breathing during sleep? STOP Results QUESTION #5 FULL TEXT : Do you snore loudly (louder than talking or can be heard through closed doors)? Tobacco Use History Tobacco Use History - communications representative: Tobacco Use History - communications representative Tobacco Use Non-smoker 11/04/20 22:25 Smoking Status Never smoker 12/12/23 23:24 Hx Tobacco Use No 10/01/23 01:15 Years Smoking Packs Smoked per Day Smoking Cessation Date was within the last 15 years Hx Smoking Cessation Date Hx Smoking Cessation Counseling Hematologic Medial History Hematologic Hx - communications representative: Hematologic Medical Hx - interpreter deaf Hx of Blood Transfusion Hx of Transfusion in last 3 Months Date of Last Transfusion (if within last 3 months) Ever experience any problems with transfusion(s)? Specify any problems Hx of Preganancy in last 3 Months Nurse Filling Out Transfusion & Questions: Date: Time: Patient unable to answer at this time (ie. confused, unrespo /Reproduction History /Reproductive History - communications representative: /Reproductive Hx- communications representative Hx Now Gestational Age (in weeks): EDC: Hx Hx Para Hx Section SAB No 12/05/21 12:24 Active Medications Active Medications: Current Medications Generic Name Dose Route Start Last Admin Trade Name Freq PRN Reason Stop Dose Admin Lactated Ringer's 1,000 mls @ 15 mls/hr 02/09/24 07:00 IV .Q48H ELVA PFSH Medical History Obesity CHF (congestive heart failure) Primary osteoarthritis, left shoulder Left shoulder pain Urinary tract infection Normocytic anemia Hydronephrosis Wears hearing aid Wears dentures Hematoma Uses wheelchair Walker as ambulation aid Bladder disease Low iron Back pain Injury of head and neck Non-smoker Shortness of breath on exertion History of pain when walking History of edema Hx of peripheral neuropathy History of stress test Hiatal hernia Restless legs High cholesterol Chronic UTI GERD (gastroesophageal reflux disease) Depression Arthritis Kidney stones GI bleed Pulmonary embolism 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 Chronic neuropathic pain Anxiety and depression GERD (gastroesophageal reflux disease) HLD (hyperlipidemia) Cystitis Segmental and somatic dysfunction of cervical region Diabetic neuropathy associated with type 2 diabetes mellitus Chronic anticoagulation DM II (diabetes mellitus, type II), controlled Morbid obesity with BMI of 45.0-49.9, adult Chronic pain following surgery or procedure Segmental and somatic dysfunction of pelvic region Facet arthropathy, lumbar Segmental and somatic dysfunction of thoracic region Segmental and somatic dysfunction of lumbar region Closed left arm fracture Polycystic ovaries Osteoarthritis Neuropathy History of gallstones Diabetes Carpal tunnel syndrome Cataracts, both eyes History of DVT (deep vein thrombosis) Home Medications ?Medication ?Instructions ?Recorded ?Last Taken ?Type cholecalciferol (vitamin D3) 25 1,000 unit PO DAILY vitamin 12/29/15 04/16/23 History mcg (1,000 unit) tablet (Vitamin D3) pravastatin 40 mg tablet 40 mg PO QHS cholesterol 08/05/18 04/15/23 History primidone 50 mg tablet 100 mg PO TID tremors 03/18/19 04/16/23 History simethicone 80 mg chewable tablet 80 mg PO TIDCM indigestion 03/18/19 04/16/23 History bupropion HCl 150 mg 24 hr tablet, 150 mg PO DAILY DEPRESSION 08/09/20 04/16/23 History extended release ascorbic acid (vitamin C) 500 mg 500 mg PO DAILY supplement 09/28/20 04/16/23 History tablet cyanocobalamin (vitamin B-12) 1,000 mcg IM QMONTH supplement 10/23/20 08/24/21 History 1,000 mcg/mL injection solution nystatin 100,000 unit/gram topical 1 applic topical Q8H PRN Skin 07/30/21 Unknown History powder Irritation apixaban 5 mg tablet (Eliquis) 5 mg PO BID blood thinner 09/30/21 10/24/23 History d-mannose 500 mg capsule 1,000 mg PO BID ssee md 12/05/21 04/16/23 History polyethylene glycol 3350 17 gram 17 g PO Q24H PRN Constipation 12/05/21 Unknown History oral powder packet (Miralax) famotidine 40 mg tablet 40 mg PO QHS stomach 03/19/23 04/15/23 History ferrous sulfate 325 mg (65 mg 325 mg PO DAILY iron 03/19/23 04/16/23 History iron) tablet (Feosol) albuterol sulfate 2.5 mg/3 mL 2.5 mg inhalation Q2H PRN Dyspnea, 04/16/23 Unknown History (0.083 %) solution for nebulization wheezing omeprazole 40 mg capsule,delayed 40 mg PO DAILY GERD 04/16/23 04/16/23 History release ondansetron HCl 8 mg tablet 8 mg PO Q8H PRN Nausea 04/16/23 Unknown History oxybutynin chloride 5 mg 5 mg PO DAILY OVERACTIVE BLADDER 04/16/23 04/16/23 History tablet,extended release 24 hr phenazopyridine 200 mg tablet 200 mg PO Q8H PRN Bladder Spasms 04/16/23 Unknown History (Pyridium) acetaminophen 325 mg tablet 650 mg PO Q4H PRN pain/ elevated 07/31/23 Unknown History temp albuterol sulfate 90 mcg/actuation 2 puff inhalation Q4H PRN wheezing 07/31/23 Unknown History aerosol inhaler magnesium hydroxide 400 mg/5 mL 30 ml PO DAILY PRN constipation 09/30/23 Unknown History oral suspension (Dulcolax (magnesium hydroxide)) pregabalin 75 mg capsule (Lyrica) 75 mg PO QHS pain 09/30/23 Unknown History L.acidophil,salivari-Bifido 2 cap PO BID #0 caps 10/06/23 Unknown Rx bifidum-Strep thermoph 175 mg capsule furosemide 40 mg tablet 40 mg PO BIDLX #0 tabs 10/06/23 Unknown Rx hydrocodone-acetaminophen 5-325mg 1 tab PO BID PRN PRN pain 3 days 10/06/23 Unknown Rx 5mg-325mg #6 tabs potassium chloride 10 mEq 10 meq PO BIDCM #0 tabs 10/06/23 Unknown Rx tablet,extended release(part/cryst) vibegron 75 mg tablet (Gemtesa) 75 mg PO DAILY #0 tabs 10/06/23 Unknown Rx dextrose 40 % oral gel (Glucose 10 g PO Q15M PRN 10/15/23 Unknown History Gel) fluticasone propionate 50 2 spray intranasal DAILY PRN 10/15/23 Unknown History mcg/actuation nasal allergy symptoms spray,suspension (24 Hour Allergy Relief) glucagon HCl 1 mg solution for 1 mg subcut Q20M PRN 10/15/23 Unknown History injection (Glucagon (HCl) Emergency Kit) guaifenesin 100 mg/5 mL oral liquid 200 mg PO Q4H PRN 10/15/23 Unknown History mineral oil (Fleet Mineral Oil 118 ml [place] DAILY PRN 10/15/23 Unknown History enema) aluminum-mag hydroxide-simethicone 30 ml PO Q4H PRN dyspepsia 10/31/23 Unknown History 200 mg-200 mg-20 mg/5 mL oral susp divalproex 500 mg tablet,delayed 500 mg PO BID 10/31/23 Unknown History release halobetasol propionate 0.05 % 1 applic topical BID 10/31/23 Unknown History topical cream duloxetine 30 mg capsule,delayed 90 mg PO DAILY depression 11/20/23 Unknown History release Allergy/AdvReac Type Severity Reaction Status Date / Time ampicillin (From Unasyn) Allergy Severe Blisters Verified 01/21/24 15:34 on tongue /throat difficulty breathing sore tongue/ warfarin sodium (From Allergy Severe Low red Verified 01/21/24 15:34 Coumadin) blood cells Family History Father Colon cancer Hypertension Mother Hypertension Diabetes Grandmother Hypertension Surgical History History of bilateral cataract extraction History of tonsillectomy Hx of cystoscopy Hx of cystoscopy History of cystoscopy S/P hysterectomy H/O cardiac catheterization (05/22/11) History of cholecystectomy History of embolic filter insertion History of carpal tunnel surgery History of hysterectomy Total knee replacement status History of gastric bypass Social History housing: assisted living facility Smoking Status: Never smoker alcohol intake: current alcohol intake frequency: holidays/special occasions only substance use type: does not use what type of physical activity do you participate in: walking and aerobics frequency: 1-2 times per week Review of Systems (Anesthesia) ROS Narrative System reviewed and no additional complaints, except as documented.
[2024-02-09] MEDS: Lactated Ringers 1,000 ML 15 ML IV (07:34)
[2024-02-09] MEDS: Lidocaine 1% (5 ml sdv) 5 ML Vial (08:11)
[2024-02-09] MEDS: Bupivacaine 0.25% 30 ML Vial (08:11)
[2024-02-09] MEDS: MethylPREDNISolone Acetate 80 MG/ML Vial (08:11)
--- NOTE | 2024-02-09 08:14 | PCM.OPRPT ---
Report of Operation Date of Procedure: 02/09/24 Description of Surgical Findings:: PREOPERATIVE DIAGNOSIS: Osteoarthritis of the right knee, chronic postoperative knee pain POSTOPERATIVE DIAGNOSIS: Osteoarthritis of the right knee, chronic postoperative knee pain PROCEDURE PERFORMED: Right knee superomedial, superolateral, and inferomedial genicular nerves steroid injection under fluoroscopy guidance. ANESTHESIA: MAC. BLOOD LOSS: Minimal. COMPLICATIONS: None. DESCRIPTION OF PROCEDURE: History and physical of today was reviewed. Risks and benefits of the procedure were explained. The patient understood and agreed to proceed. Informed consent was obtained. IV inserted per routine protocol. The patient was taken to the operating room and placed in the supine position. The right knee was prepped and draped in a sterile fashion using iodine x3. Under fluoroscopy guidance on AP view, the right knee was visualized. The skin and subcutaneous tissue was anesthetized with approximately 5 mL of 1% lidocaine using a 25-gauge regular needle at the vicinity of the superomedial, superolateral, and inferomedial genicular nerves. Under direct visualization of fluoroscopy on AP view as well as lateral view, starting on the right superomedial, ending on the right inferomedial, passing through the right superolateral genicular nerves, the needle was passed through the skin. The tip of the needle was maneuvered and directed towards the diaphyseal junction of each corresponding nerve. Once tip of the needle was in the vicinity of the diaphysis and in contact with the bone, after confirmation on AP as well as lateral view and repeated negative aspiration for blood, a total of 12 mL of preservative-free 0.25% Marcaine with 80 mg of Depo-Medrol was injected in divided doses between those three levels. The needles were then removed intact. The patient experienced no sign or symptoms of intravascular injection. The patient experienced no paresthesia. The procedure was completed without any apparent difficulty or any complications. The patient appeared to tolerate it well. ASSESSMENT AND PLAN: This is a 78-year-old female with osteoarthritis of the right knee, chronic postoperative knee pain status post right knee superior medial, superior lateral, inferior medial genicular nerve steroid injection under fluoroscopic guidance, patient will continue her current medications, patient will follow in approximately 2 weeks for reevaluation.
--- NOTE | 2024-02-09 08:20 | PCM.POST.ANE ---
Anesthesia: Postop Eval I Current Vital Signs Temperature: 97.3 F Pulse Rate: 86 Blood Pressure: 108/26 Respiratory Rate: 16 Pulse Ox: 96 Oxygen Delivery Method: Room Air Assessment Airway patent: Yes Spontaneous unlabored respirations: Yes Mental status: Awake and Calm nausea: No Vomiting: No Anesthesia Complication: No Fluid Hydration Crystalloid volume administer (ml): 200 Total IV fluid infused: 200 Progress Note Anesthesia document: Postop Eval 1 completed: Yes
--- NOTE | 2024-02-09 08:31 | POSTOPAN2_ITS ---
Anesthesia Postop Eval I Sum Postop Eval Completion status Anesthesia document: Postop Eval 1 completed: Yes Anesthesia Postop Eval I Summary Anesthesia Postop Eval I Summary: Anesthesia Postop Eval I: Assessment Summary Airway patent Yes 02/09/24 08:21 HEAT TREAT [email or web address] Spontaneous unlabored Yes 02/09/24 08:21 HEAT TREAT TECHNICIANTIERRA respirations Mental status Awake,Calm 02/09/24 08:21 HEAT TREAT [email or web address] nausea No 02/09/24 08:21 HEAT TREAT [email or web address] Vomiting No 02/09/24 08:21 HEAT TREAT TECHNICIANTIERRA Anesthesia Postop Eval I: Fluid Summary Crystalloid volume administer 200 02/09/24 08:21 HEAT TREAT [email or web address] (ml) Colloids volume administered ( ml) Blood Product volume administered (ml) Total IV fluid infused 200 02/09/24 08:21 HARISH Anesthesia Postop Eval I: Summary Notes Anesthesia Complication No 02/09/24 08:21 HARISH Anesthesia Complication Comment: Post-operative progress note Anesthesia: Postop Eval II Evaluation Mental status: Awake Pain Level: 0 nausea: No Vomiting: No
--- NOTE | 2024-02-09 08:31 | PCM.POSTANE2 ---
Anesthesia Postop Eval I Sum Postop Eval Completion status Anesthesia document: Postop Eval 1 completed: Yes Anesthesia Postop Eval I Summary Anesthesia Postop Eval I Summary: Anesthesia Postop Eval I: Assessment Summary Airway patent Yes 02/09/24 08:21 [email or web address] Spontaneous unlabored Yes 02/09/24 08:21 CITY DRIVERTIERRA respirations Mental status Awake,Calm 02/09/24 08:21 [email or web address] nausea No 02/09/24 08:21 [email or web address] Vomiting No 02/09/24 08:21 CITY DRIVERTIERRA Anesthesia Postop Eval I: Fluid Summary Crystalloid volume administer 200 02/09/24 08:21 [email or web address] (ml) Colloids volume administered ( ml) Blood Product volume administered (ml) Total IV fluid infused 200 02/09/24 08:21 HARISH Anesthesia Postop Eval I: Summary Notes Anesthesia Complication No 02/09/24 08:21 HARISH Anesthesia Complication Comment: Post-operative progress note Anesthesia: Postop Eval II Evaluation Mental status: Awake Pain Level: 0 nausea: No Vomiting: No
== END 2024-02-09 09:18 | disposition home or self-care (01) ==
LOC: SDC 06:37 → AC 06:38
PROVIDERS: PCP Family Medicine; Referring Provider Anesthesiology Pain Medicine; Visit Provider Anesthesiology Pain Medicine
PROC: 3E0U3GC Introduction of Other Therapeutic Substance into Joints, Percutaneous Approach (ICD-10-PCS; CPT 20610; principal; 2024-02-09 07:55)
DX: M17.11 Unilateral primary osteoarthritis, right knee (principal); I50.9 Heart failure, unspecified; E11.40 Type 2 diabetes mellitus with diabetic neuropathy, unspecified; E78.5 Hyperlipidemia, unspecified; F32.9 Major depressive disorder, single episode, unspecified; K21.9 Gastro-esophageal reflux disease without esophagitis; Z86.718 Personal history of other venous thrombosis and embolism; Z87.19 Personal history of other diseases of the digestive system; Z90.49 Acquired absence of other specified parts of digestive tract; Z98.84 Bariatric surgery status; Z90.710 Acquired absence of both cervix and uterus; M47.817 Spondylosis without myelopathy or radiculopathy, lumbosacral region; M51.37 Other intervertebral disc degeneration, lumbosacral region; M46.96 Unspecified inflammatory spondylopathy, lumbar region; Z79.891 Long term (current) use of opiate analgesic; Z96.653 Presence of artificial knee joint, bilateral; M53.3 Sacrococcygeal disorders, not elsewhere classified; M19.012 Primary osteoarthritis, left shoulder
CPT/HCPCS: 64454; 20610; 76000; 77002; J7120

== ENCOUNTER → 2024-02-15 | Outpatient (REF) | payer MEDICARE, MEDICAID, SELFPAY ==
[2024-02-16 07:18] LABS: Mucous, Urine 0 SEEN /hpf (<or=2+); Red Blood Cells-Urine 0 SEEN /hpf (0-5); Squamous Epithelial Cells - UA 0 SEEN /hpf (5-10); White Blood Cells 0 SEEN /hpf (0-5)
[2024-02-16 07:38] LABS: Color, Urine Amber (Yellow); Glucose, Dipstick Normal (Normal); Ketone-Dipstick Negative (Negative); Leukocyte Esterase-Dipstick Negative /ul (Negative); Nitrite-Dipstick Positive (Negative); Occult Blood-Urine Negative /ul (Negative); Protein-Dipstick Negative (Negative); Specific Gravity, Urine 1.015 (1.002-1.030); Urine Clarity Clear (Clear); Urine Urobilinogen 4 mg/dl (Normal)
[2024-02-16 08:07] LABS: Urine Bilirubin Dipstick 1 mg/dL (Negative)
[2024-02-16 08:39] LABS: Bacteria 1+ /hpf (None Seen)
== END ==
LOC: OLS.SWAL 22:00
PROVIDERS: PCP Family Medicine; Visit Provider Family Medicine
DX: N39.0 Urinary tract infection, site not specified (principal)
CPT/HCPCS: 81001

== ENCOUNTER → 2024-02-24 05:00 | Outpatient (REF) | payer MEDICARE, MEDICAID, SELFPAY ==
[2024-02-24 09:37] LABS: Mucous, Urine 0 SEEN /hpf (<or=2+); Red Blood Cells-Urine 0 SEEN /hpf (0-5)
[2024-02-24 09:38] LABS: Hematocrit 32.2 % (37-47); Hemoglobin 9.8 g/dL (12.0-15.0); Mean Corp Hgb Conc 30.4 g/dL (32-36); Mean Corpuscular Hgb 31.7 pg (27.0-32.0); Mean Corpuscular Volume 104.2 fL (81-99); Mean Platelet Vol. 9.8 fl (6.2-12.0); Platelet Count 173 K/mm3 (150-450); RBC Distribution Width CV 12.7 % (11.6-14.6); RBC Distribution Width SD 48.8 fl (35.1-43.9); Red Blood Count 3.09 M/mm3 (4.2-5.4); White Blood Count 3.7 K/mm3 (4.4-11.0)
[2024-02-24 09:47] LABS: PTHIN 79.6 pg/mL (18.4-80.1)
[2024-02-24 09:58] LABS: Glucose, Dipstick Normal (Normal); Ketone-Dipstick Negative (Negative); Leukocyte Esterase-Dipstick 25 /ul (Negative); Nitrite-Dipstick Positive (Negative); Occult Blood-Urine Negative /ul (Negative); Protein-Dipstick Negative (Negative); Urine Clarity Clear (Clear); Urine Urobilinogen 4 mg/dl (Normal)
[2024-02-24 10:01] LABS: Color, Urine SEE COMMENT BELOW (Yellow); Urine Bilirubin Dipstick 3 mg/dL (Negative)
[2024-02-24 10:07] LABS: Vitamin D,25 Hydroxy 23.6 ng/mL
[2024-02-24 10:19] LABS: Bacteria 1+ /hpf (None Seen); Calcium Oxalate Crystals Ur 2+ /hpf (<or=2+); Hyaline Cast 0-5 SEEN /lpf (0-5); Squamous Epithelial Cells - UA 5-10 SEEN /hpf (5-10); White Blood Cells 5-10 SEEN /hpf (0-5)
[2024-02-24 11:02] LABS: Anion Gap 4 (5-15); BUN 18 mg/dL (7-18); Calcium,Total 8.1 mg/dL (8.5-10.1); Chloride 108 mmol/L (98-107); Creatinine, Serum 0.69 mg/dL (0.55-1.02); EST Glomerular Filtration Rate 87 mL/min (>60); Est Glom Filt Rate - Afr Amer 106 mL/min (>60); Ferritin 126 ng/mL (8-252); Glucose 92 mg/dL (74-106); Iron Binding Capacity,Total 264 ug/dL (250-450); Potassium 4.2 mmol/L (3.5-5.1); Sodium Level 139 mmol/L (136-145)
[2024-02-24 11:42] LABS: Microalbumin,Random Urine 6.3 mg/L (NO RANGE EST.)
== END ==
LOC: OLS.SWAL 05:00
PROVIDERS: PCP Family Medicine; Visit Provider Family Medicine
DX: N39.0 Urinary tract infection, site not specified (principal); D64.9 Anemia, unspecified; E83.51 Hypocalcemia; R30.0 Dysuria; M25.512 Pain in left shoulder
CPT/HCPCS: 36415; 80048; 81001; 82043; 82306; 82728; 83550; 83970; 85027; 87086; 87088

== ENCOUNTER → 2024-02-25 05:00 | Outpatient (REF) | payer MEDICARE, MEDICAID, SELFPAY ==
[2024-02-25 09:17] LABS: Ionized Calcium 4.71 mg/dL (4.36-5.20)
== END ==
LOC: OLS.SWAL 05:00
PROVIDERS: PCP Family Medicine; Visit Provider Family Medicine
DX: M25.512 Pain in left shoulder (principal); D64.9 Anemia, unspecified; E83.51 Hypocalcemia; R30.0 Dysuria
CPT/HCPCS: 82330

== ENCOUNTER → 2024-03-03 | Outpatient (REF) | payer MEDICARE, MEDICAID, SELFPAY ==
[2024-03-04 08:31] LABS: Mucous, Urine 0 SEEN /hpf (<or=2+); Red Blood Cells-Urine 0 SEEN /hpf (0-5); White Blood Cells 0 SEEN /hpf (0-5)
[2024-03-04 08:58] LABS: Color, Urine Yellow (Yellow); Glucose, Dipstick Normal (Normal); Ketone-Dipstick Negative (Negative); Leukocyte Esterase-Dipstick Negative /ul (Negative); Nitrite-Dipstick Positive (Negative); Occult Blood-Urine Negative /ul (Negative); Protein-Dipstick Negative (Negative); Specific Gravity, Urine 1.015 (1.002-1.030); Urine Clarity Clear (Clear); Urine Urobilinogen 4 mg/dl (Normal)
[2024-03-04 09:05] LABS: Urine Bilirubin Dipstick 1 mg/dL (Negative)
[2024-03-04 09:08] LABS: Bacteria 2+ /hpf (None Seen); Calcium Oxalate Crystals Ur 1+ /hpf (<or=2+); Squamous Epithelial Cells - UA 0-5 SEEN /hpf (5-10)
== END ==
LOC: OLS.SWAL 17:30
PROVIDERS: PCP Family Medicine
DX: N39.0 Urinary tract infection, site not specified (principal)
CPT/HCPCS: 81001; 87086; 87088; 87186

== ENCOUNTER → 2024-03-23 | Outpatient (REF) | payer MEDICARE, MEDICAID, SELFPAY ==
[2024-03-24 09:02] LABS: Mucous, Urine 0 SEEN /hpf (<or=2+); Red Blood Cells-Urine 0 SEEN /hpf (0-5)
[2024-03-24 09:26] LABS: Glucose, Dipstick Normal (Normal); Ketone-Dipstick Negative (Negative); Leukocyte Esterase-Dipstick 25 /ul (Negative); Nitrite-Dipstick Positive (Negative); Occult Blood-Urine 10 /ul (Negative); Protein-Dipstick 15 mg/dl (Negative); Urine Clarity Sl. Cloudy (Clear); Urine Urobilinogen 4 mg/dl (Normal)
[2024-03-24 09:27] LABS: Color, Urine SEE COMMENT BELOW (Yellow); Urine Bilirubin Dipstick 3 mg/dL (Negative)
[2024-03-24 09:40] LABS: Bacteria 2+ /hpf (None Seen); Squamous Epithelial Cells - UA 0-5 SEEN /hpf (5-10)
[2024-03-24 09:41] LABS: Calcium Oxalate Crystals Ur 1+ /hpf (<or=2+); White Blood Cells 0-5 SEEN /hpf (0-5)
== END ==
LOC: OLS.SWAL 17:00
PROVIDERS: PCP Family Medicine
DX: N39.0 Urinary tract infection, site not specified (principal)
CPT/HCPCS: 81001; 87077; 87086; 87088; 87186

== ENCOUNTER 2024-04-12 10:04 | Day surgery (SDC) | payer MEDICARE, MEDICAID, SELFPAY ==
[2024-04-12] VITALS (9 sets, daily range): BP systolic 97–108; BP diastolic 49–68; PULSE 64–67; RESP 16–18; TEMP 36.3–36.9; O2SAT 95–100; BMI 51.3
--- NOTE | 2024-04-12 11:00 | PRE.ANES_ITS ---
ASA Classification* ASA Classification ASA Classification: 3 Assessment & Plan Anesthesia* Anesthesia Assessment Anesthesia Assessment: Discussed sedation and/or anesthesia options, risks, benefits, and alternatives with patient/parents/legal guardian/POA. Questions invited. The patient/parents/legal guardian/POA seems to understand and agrees to proceed with anesthesia plan. Reviewed the physical assessment, medical history, allergy history and patient home medications list prior to surgery/procedure/anesthetic and documented any changes. Performed airway and anesthesia risk assessments. Anesthesia Type Anesthesia Type: MAC Anesthesia Focused Assessment* Temperature: 98.4 F Pulse Rate: 65 Blood Pressure: 99/62 Respiratory Rate: 18 Pulse Ox: 95 Airway Assessment Mouth opens: >3 cm Mallampati Score: II Focused Labs Anesthesia Preop lab: CBC WBC 3.7 K/mm3 (4.4-11.0) L 02/24/24 08:00 RBC 3.09 M/mm3 (4.2-5.4) L 02/24/24 08:00 Hgb 9.8 g/dL (12.0-15.0) L 02/24/24 08:00 Hct 32.2 % (37-47) L 02/24/24 08:00 Plt Count 173 K/mm3 (150-450) 02/24/24 08:00 CHEMISTRY Potassium 4.2 mmol/L (3.5-5.1) 02/24/24 08:00 Sodium 139 mmol/L (136-145) 02/24/24 08:00 Magnesium 2.4 mg/dL (1.6-2.6) 07/01/23 06:20 Phosphorus 2.4 mg/dL (2.5-4.9) L 06/25/23 07:02 BUN 18 mg/dL (7-18) 02/24/24 08:00 Creatinine 0.69 mg/dL (0.55-1.02) 02/24/24 08:00 Glucose 92 mg/dL (74-106) 02/24/24 08:00 POC Glucose 169 mg/dL (70-110) H 08/11/21 18:21 TSH 2.37 uIU/mL (0.358-3.74) 09/17/23 15:35 COAG PT 14.5 SECONDS (11.7-14.9) 06/26/23 07:07 Pre-Assessment Diagnosis/Proposed Procedure Planned Operative Procedure(s): LEFT supraclavicular block Anesthesia History Anesthesia History - application systems administrator: Anesthesia History - application systems administrator Hx Hospitalization No 04/07/24 11:49 Any Problems With Anesthesia No 04/07/24 11:49 Cholinesterase deficiency No 04/07/24 11:49 You/Your Family Experience No 04/07/24 11:49 fever (hyperthermia) with Relationship Recent Exposure to Contagious No 04/12/24 10:43 Disease Does patient have nerve No 04/07/24 11:49 stimulator Patient instructed to have device shut off --Does patient have Pacemaker No 04/12/24 10:43 or ICD? When Was Last Pacemaker Check QUESTION #4 FULL TEXT: You/Your Family Experience fever (hyperthermia) with Anesthesia Last Oral Intake Last Oral intake: Last Oral Intake NPO since 00:00 04/12/24 10:43 Meds taken in AM with sips of water? Meds patient instructed to take am of surgery PONV PONV - application systems administrator: PONV - application systems administrator Female Yes 04/07/24 11:49 HX of Motion Sickness No 04/07/24 11:49 HX of N/V After Surgery No 04/07/24 11:49 Non-Smoker Yes 04/07/24 11:49 Duration of Surgery greater No 04/07/24 11:49 than 60 minutes Number of Risk Factors 2 04/07/24 11:49 PONV Score Moderate Risk 04/07/24 11:49 Height & Weight Height & Weight: Anesthesia: Height & Weight Height 5 ft 5 in 04/12/24 10:43 Weight: 140 kg 04/12/24 10:43 Body Mass Index (BMI) 51.3 04/12/24 10:43 Respiratory Assessment Respiratory Assessment - application systems administrator: Respiratory Tract Infection Hx - application systems administrator Hx Respiratory Tract Infection No 04/07/24 11:49 STOP Sleep Apnea STOP Sleep Apnea - application systems administrator: STOP Sleep Apnea - application systems administrator Hx Hypertension No 04/07/24 11:49 Hx Sleep Apnea No 04/07/24 11:49 CPAP No 04/07/24 11:49 BIPAP No 04/07/24 11:49 Do you snore loudly (louder No 04/07/24 11:49 than talking or can be heard Do you often feel tired/ No 04/07/24 11:49 fatigued/ sleepy during daytime? Has anyone observed you stop No 04/07/24 11:49 breathing during sleep? STOP Results Negative 04/07/24 11:49 QUESTION #5 FULL TEXT : Do you snore loudly (louder than talking or can be heard through closed doors)? Tobacco Use History Tobacco Use History - application systems administrator: Tobacco Use History - application systems administrator Tobacco Use Non-smoker 11/04/20 22:25 Smoking Status Never smoker 04/07/24 11:49 Hx Tobacco Use No 04/07/24 11:49 Years Smoking Packs Smoked per Day Smoking Cessation Date was within the last 15 years Hx Smoking Cessation Date Hx Smoking Cessation Counseling Hematologic Medial History Hematologic Hx - application systems administrator: Hematologic Medical Hx - staff technologist Hx of Blood Transfusion Yes 04/07/24 11:49 Hx of Transfusion in last 3 No 04/07/24 11:49 Months Date of Last Transfusion (if within last 3 months) Ever experience any problems No 04/07/24 11:49 with transfusion(s)? Specify any problems Hx of Preganancy in last 3 No 04/07/24 11:49 Months Nurse Filling Out Transfusion DSCHRIBER 04/07/24 11:49 & Questions: Date: 04/07/24 04/07/24 11:49 Time: 11:50 04/07/24 11:49 Patient unable to answer at this time (ie. confused, unrespo /Reproduction History /Reproductive History - application systems administrator: /Reproductive Hx- application systems administrator Hx Now No 04/07/24 11:49 Gestational Age (in weeks): EDC: Hx Hx Para Hx Section SAB No 04/07/24 11:49 PFSH Medical History (Updated 04/07/24 @ 12:04 by Mallorie Mo) On home oxygen therapy Essential tremor Obesity CHF (congestive heart failure) Primary osteoarthritis, left shoulder Left shoulder pain Urinary tract infection Normocytic anemia Hydronephrosis Wears hearing aid Wears dentures Uses wheelchair Walker as ambulation aid Bladder disease Low iron Back pain Injury of head and neck Non-smoker Shortness of breath on exertion History of pain when walking History of edema Hx of peripheral neuropathy History of stress test Hiatal hernia Restless legs High cholesterol Chronic UTI GERD (gastroesophageal reflux disease) Arthritis GI bleed Pulmonary embolism Chronic neuropathic pain Anxiety and depression HLD (hyperlipidemia) Cystitis Segmental and somatic dysfunction of cervical region Diabetic neuropathy associated with type 2 diabetes mellitus Chronic anticoagulation Morbid obesity with BMI of 45.0-49.9, adult Chronic pain following surgery or procedure Segmental and somatic dysfunction of pelvic region Facet arthropathy, lumbar Segmental and somatic dysfunction of thoracic region Segmental and somatic dysfunction of lumbar region Closed left arm fracture Polycystic ovaries Osteoarthritis Neuropathy Diabetes Carpal tunnel syndrome Cataracts, both eyes History of DVT (deep vein thrombosis) Home Medications ?Medication ?Instructions ?Recorded ?Last Taken ?Type cholecalciferol (vitamin D3) 25 1,000 unit PO DAILY vitamin 12/29/15 04/16/23 History mcg (1,000 unit) tablet (Vitamin D3) pravastatin 40 mg tablet 40 mg PO QHS cholesterol 08/05/18 04/15/23 History primidone 50 mg tablet 100 mg PO TID tremors 03/18/19 04/16/23 History simethicone 80 mg chewable tablet 80 mg PO TIDCM indigestion 03/18/19 04/16/23 History ascorbic acid (vitamin C) 500 mg 500 mg PO DAILY supplement 09/28/20 04/16/23 History tablet cyanocobalamin (vitamin B-12) 1,000 mcg IM QMONTH supplement 10/23/20 08/24/21 History 1,000 mcg/mL injection solution nystatin 100,000 unit/gram topical 1 applic topical Q8H PRN Skin 07/30/21 Unknown History powder Irritation apixaban 5 mg tablet (Eliquis) 5 mg PO BID blood thinner 09/30/21 10/24/23 History d-mannose 500 mg capsule 1,000 mg PO BID ssee md 12/05/21 04/16/23 History polyethylene glycol 3350 17 gram 17 g PO Q24H PRN Constipation 12/05/21 Unknown History oral powder packet (Miralax) ferrous sulfate 325 mg (65 mg 325 mg PO QHS iron 03/19/23 04/16/23 History iron) tablet (Feosol) albuterol sulfate 2.5 mg/3 mL 2.5 mg inhalation Q2H PRN Dyspnea, 04/16/23 Unknown History (0.083 %) solution for nebulization wheezing omeprazole 40 mg capsule,delayed 40 mg PO DAILY GERD 04/16/23 04/16/23 History release ondansetron HCl 8 mg tablet 8 mg PO Q8H PRN Nausea 04/16/23 Unknown History oxybutynin chloride 5 mg 5 mg PO DAILY OVERACTIVE BLADDER 04/16/23 04/16/23 History tablet,extended release 24 hr phenazopyridine 200 mg tablet 200 mg PO Q8H PRN Bladder Spasms 04/16/23 Unknown History (Pyridium) acetaminophen 325 mg tablet 650 mg PO Q4H PRN pain/ elevated 07/31/23 Unknown History temp albuterol sulfate 90 mcg/actuation 2 puff inhalation Q4H PRN wheezing 07/31/23 Unknown History aerosol inhaler pregabalin 75 mg capsule (Lyrica) 75 mg PO QHS pain 09/30/23 Unknown History furosemide 40 mg tablet 40 mg PO BIDLX #0 tabs 10/06/23 Unknown Rx potassium chloride 10 mEq 10 meq PO BIDCM #0 tabs 10/06/23 Unknown Rx tablet,extended release(part/cryst) vibegron 75 mg tablet (Gemtesa) 75 mg PO DAILY #0 tabs 10/06/23 Unknown Rx dextrose 40 % oral gel (Glucose 10 g PO Q15M PRN hypoglycemia 10/15/23 Unknown History Gel) fluticasone propionate 50 2 spray intranasal DAILY PRN 10/15/23 Unknown History mcg/actuation nasal allergy symptoms spray,suspension (24 Hour Allergy Relief) glucagon HCl 1 mg solution for 1 mg subcut Q20M PRN hypoglycemia 10/15/23 Unknown History injection (Glucagon (HCl) Emergency Kit) guaifenesin 100 mg/5 mL oral liquid 200 mg PO Q4H PRN cough 10/15/23 Unknown History mineral oil (Fleet Mineral Oil 118 ml FL DAILY PRN constipation 10/15/23 Unknown History enema) aluminum-mag hydroxide-simethicone 30 ml PO Q4H PRN dyspepsia 10/31/23 Unknown History 200 mg-200 mg-20 mg/5 mL oral susp halobetasol propionate 0.05 % 1 applic topical BID 10/31/23 Unknown History topical cream duloxetine 30 mg capsule,delayed 90 mg PO DAILY depression 11/20/23 Unknown History release magnesium hydroxide 400 mg/5 mL 30 ml PO QHS PRN constipation 03/26/24 Unknown History oral suspension (Milk of Magnesia) oxycodone-acetaminophen 5 mg-325 1 tab PO .Q12 PRN PRN pain 03/26/24 Unknown History mg tablet L.acidophil,salivari-Bifido 1 cap PO DAILY 04/07/24 Unknown History bifidum-Strep thermoph 175 mg capsule Allergy/AdvReac Type Severity Reaction Status Date / Time ampicillin (From Unasyn) Allergy Severe Blisters Verified 04/12/24 10:42 on tongue /throat difficulty breathing sore tongue/ warfarin sodium (From Allergy Severe Low red Verified 04/12/24 10:42 Coumadin) blood cells Family History Father Colon cancer Hypertension Mother Hypertension Diabetes Grandmother Hypertension Surgical History History of bilateral cataract extraction History of tonsillectomy Hx of cystoscopy Hx of cystoscopy History of cystoscopy S/P hysterectomy H/O cardiac catheterization (05/22/11) History of cholecystectomy History of embolic filter insertion History of carpal tunnel surgery History of hysterectomy Total knee replacement status History of gastric bypass Social History housing: assisted living facility Smoking Status: Never smoker alcohol intake: current alcohol intake frequency: holidays/special occasions only substance use type: does not use what type of physical activity do you participate in: walking and aerobics frequency: 1-2 times per week Review of Systems (Anesthesia) ROS Narrative System reviewed and no additional complaints, except as documented.
--- NOTE | 2024-04-12 11:09 | RAD_ITS ---
EXAM: XR LEFT SHOULDER, 1 VIEW CLINICAL INDICATION: SUPRACLAVICULAR NERVE BLOCK TECHNIQUE: One view of the left shoulder. COMPARISON: No relevant prior studies available. FINDINGS: BONES/JOINTS: Single images obtained intraoperatively of the left shoulder. No acute fracture. No subluxation. Normal alignment. Preservation of the joint space. No sclerotic or destructive changes observed. SOFT TISSUES: Unremarkable. No soft tissue swelling or gas. No radiopaque foreign body. RAD/Shoulder One View IMPRESSION: Intraoperative view of the left clavicle and shoulder. Electronically Signed: Ponce Maradiaga MD at 0:07 EDT ,
[2024-04-12] MEDS: MethylPREDNISolone Acetate 40 MG/ML Vial ×2 (11:21)
[2024-04-12] MEDS: Bupivacaine 0.25% 30 ML Vial (11:21)
[2024-04-12] MEDS: Lidocaine 1% (5 ml sdv) 5 ML Vial (11:21)
--- NOTE | 2024-04-12 11:31 | PCM.POST.ANE ---
Anesthesia: Postop Eval I Current Vital Signs Temperature: 97.6 F Pulse Rate: 67 Blood Pressure: 104/52 Respiratory Rate: 16 Pulse Ox: 100 Oxygen Delivery Method: Nasal Cannula Oxygen Flow Rate (L/min): 2 Assessment Airway patent: Yes Spontaneous unlabored respirations: Yes Mental status: Awake nausea: No Vomiting: No Anesthesia Complication: No Fluid Hydration Crystalloid volume administer (ml): 20 Total IV fluid infused: 20 Progress Note Anesthesia document: Postop Eval 1 completed: Yes
--- NOTE | 2024-04-12 11:39 | PCM.OPRPT ---
Report of Operation Date of Procedure: 04/12/24 Pre-Operative Diagnosis: Osteoarthritis of the left shoulder Post-Operative Diagnosis: Osteoarthritis of the left shoulder Surgery/Procedure Performed:: Left-side suprascapular nerve steroid injection under fluoroscopic guidance Type of Anesthesia: MAC Estimated Blood Loss (mL): minimal Description of Procedure: DESCRIPTION OF PROCEDURE: History and physical of today was reviewed. Risks and benefits of the procedure were explained. The patient understood and agreed to proceed. Informed consent was obtained. IV inserted per routine protocol. The patient was taken to the operating room and placed in the prone position. The left shoulder area was prepped and draped in a sterile fashion using iodine x3. Under fluoroscopic guidance on AP view, the right shoulder joint was visualized. The skin and subcutaneous tissue was anesthetized with approximately 5 mL of 1% lidocaine using a 25-gauge regular needle at the vicinity of the suprascapular notch. Under direct visualization with fluoroscopy on AP view, using a 22-gauge spinal needle, the needle was advanced via the skin directed towards the suprascapular notch and directed towards the suprascapular nerve once the tip of the needle was at the vicinity the suprascapular nerve, after negative aspiration for blood, negative for air and after confirmation on AP as well as oblique view and repeated negative aspiration for blood, a total of 10 mL of preservative-free 0.25% Marcaine with 40 mg of Depo-Medrol was injected easily. The needle was then removed intact. The patient experienced no sign or symptoms of intravascular injection. The patient experienced no paresthesia. The procedure was completed without any apparent difficulty or any complications. The patient appeared to tolerate it well. Assessment and plan: This is a 79-year-old female with osteoarthritis of the left shoulder status post left suprascapular nerve steroid injection under fluoroscopic guidance, patient will continue her current medications, patient will follow up in approximately 2 weeks for reevaluation. Complications None
--- NOTE | 2024-04-12 12:43 | PCM.POSTANE2 ---
Anesthesia Postop Eval I Sum Postop Eval Completion status Anesthesia document: Postop Eval 1 completed: Yes Anesthesia Postop Eval I Summary Anesthesia Postop Eval I Summary: Anesthesia Postop Eval I: Assessment Summary Airway patent Yes 04/12/24 11:32 [email or web address] Spontaneous unlabored Yes 04/12/24 11:32 [email or web address] respirations Mental status Awake 04/12/24 11:32 [email or web address] nausea No 04/12/24 11:32 [email or web address] Vomiting No 04/12/24 11:32 [email or web address] Anesthesia Postop Eval I: Fluid Summary Crystalloid volume administer 20 04/12/24 11:32 [email or web address] (ml) Colloids volume administered ( ml) Blood Product volume administered (ml) Total IV fluid infused 20 04/12/24 11:32 [email or web address] Anesthesia Postop Eval I: Summary Notes Anesthesia Complication No 04/12/24 11:32 [email or web address] Anesthesia Complication Comment: Post-operative progress note Anesthesia: Postop Eval II Evaluation Mental status: Awake Pain Level: 0 nausea: No Vomiting: No
--- NOTE | 2024-04-27 14:42 | HP.PCM_ITS ---
History and Physical Date of Admission: 04/12/24 [facility] Complaint: 90% relief in the right knee with injection, done 02/09/24 History of Present Illness: This is a 78 Y/O Female who was seen and evaluated by our office today as a follow up. Pain: left shoulder, lower back, bilateral hips, right buttock, right knee Quality: constant, intensity varies Region: Pain in lower back radiates across, into bilateral hips and right buttock. Pain in left shoulder. Reports pain in the right knee has decreased in severity with the injection. Severity: mild- moderate, left shoulder severe Timing: on going Aggravated by: walking, using walker, standing Relieved by: percocet, injections Pain score (out of 10): right knee 4/10, left shoulder 9/10 Other info: Patient is here for a follow up. Reports pain in lower back that radiates into bilateral hips and into the right buttock and leg. Reports she has constant pain that aches. States her pain is mostly mild- moderate, except the shoulder. States the pain in her right knee has decreased by 90% with the knee injection. She is currently using a walker and is on continous O2 via 2L NC . She states that she hit her left shoulder on the wall during one of her falls a couple months ago and has been having pain in the shoulder since, reports the left shoulder pain is severe and was hoping for an in office injection in that shoulder today. States she has neuropathy in feet. Needs no refill on medication. Denies recent falls. Denies issues with bowels or bladder. Review of Systems: Patient states intermittent headaches. Patient denies any fever, chills, change in vision but has hearing changes. No cp is on continuous O2. They note no lumps or swollen glands, no new rashes, changing moles. Mood has been good. Past Medical History: h/o thrombosis h/o vitamin D deficiency h/o fatigue h/o Arthritis h/o osteoporosis h/o anxiety h/o cellulitis 10/2019 h/o UTI 10/2019, 2023 h/o anemia 2020 h/o congestive heart failure 2023 h/o pneumonia 2023 s/p tonsillectomy 1953 s/p left arm fracture 1952 s/p Shaji TKR rt 2011,lt 2012 s/p hysterectomy 1999 s/p gastric bypass 2010 s/p Cholecystectomy 1994 Family History: ======== Structured Family History ======== Family History: diabetes mellitus,cancer,hypertension Social History: [Tobacco: Never smoker Pipe Smoker: No Cigar Smoker: No Chewing Tobacco User: No Electronic Cigarette User: No] Living situation: Occupation: Retired Tobacco: Denies EtOH: Occasional Rec. drugs: Denies Allergies: Ampicillin, Coumadin Medications: 1) acetaminophen 325 mg tablet, Take 2 tablet by mouth every 4 hours prn 2) albuterol sulfate 2.5 mg/3 mL (0.083 %) solution for nebulization, as directed q2 hrs prn 3) albuterol sulfate HFA 90 mcg/actuation aerosol inhaler, every 4 hours prn as directed 4) aluminum hydroxide-magnesium hydroxide 200 mg-200 mg/5 mL oral suspension, 30 ml po q4 hrs prn as directed 5) Azo D-Mannose Oral Capsule DAIRY FREE, DRUG FREE, GLUTEN FREE, NON GMO, Take 2 capsules by mouth 2 times a Day 6) bupropion HCl XL 150 mg 24 hr tablet, extended release, Take 1 tablet by mouth once daily 7) Centrum Singles-Vitamin C 500 mg tablet, Take 1 tablet by mouth every morning 8) cholecalciferol (vitamin D3) 25 mcg (1,000 unit) capsule, Take 1 capsule by mouth once daily 9) Colace 100 mg capsule, Take 1 tablet by mouth every morning 10) Cyanacobalamin 1,000 mcg/mL injection solution, as directed 11) Cymbalta 60 mg capsule,delayed release, Take 1 tablet by mouth once daily w/30 mg to=90 mg 12) Depakote ER 500 mg tablet,extended release, Take 1 tablet by mouth 2 times a Day 13) dextrose 15 gram/33 gram oral gel packet, prn as directed 14) D-Mannose oral capsule 500 mg, Take 2 tablet by mouth 2 times a Day 15) Eliquis 5 mg tablet, Take 1 tablet by mouth 2 times a Day 16) famotidine 20 mg tablet, Take 1 tablet by mouth every evening 17) ferrous sulfate 325 mg (65 mg iron) tablet, Take 1 tablet by mouth once daily 18) Fleet Enema 19 gram-7 gram/118 mL, as directed prn for constipation 19) Flonase Allergy Relief 50 mcg/actuation nasal spray,suspension, 2 sprays each nostril in morning 20) furosemide 20 mg tablet, d/c 21) Gemtesa 75 mg tablet, Take 1 tablet by mouth every morning 22) glucagon 1 mg injection, as directed prn 23) halobetasol propionate 0.05 % topical ointment, bid as directed 24) Lactobacillus acidophilus 500 million cell capsule, Take 1 tablet by mouth every morning 25) Lasix 40 mg tablet, Take 1 tablet by mouth 2 times a Day 26) Medi-Milk Of Magnesia 400 mg/5 mL oral suspension, 30 ml po prn for constipation as directed 27) Medrol (Darrius) 4 mg tablets in a dose pack, take as directed from package Do not take NSAIDS along with this. 28) Myrbetriq 50 mg tablet,extended release, Take 1 tablet by mouth every evening 29) nystatin 100,000 unit/gram topical powder, q8 hrs as directed prn 30) omeprazole 40 mg capsule,delayed release, Take 1 capsule by mouth every morning prn 31) ondansetron HCl 8 mg tablet, Take 1 tablet by mouth every 8 hours prn 32) oxybutynin chloride ER 5 mg tablet,extended release 24 hr, Take 1 tablet by mouth every morning 33) oxycodone-acetaminophen 5 mg-325 mg tablet, take 1/2 to 1 tablet PO up to BID, as needed for pain 34) pravastatin 40 mg tablet, Take 1 tablet by mouth every evening 35) pregabalin 75 mg capsule, 1 PO QD 36) primidone 50 mg tablet, Take 2 tablet by mouth 3 Times a Day 37) Pyridium 200 mg tablet, Take 1 tablet by mouth every 8 hours prn 38) Robitussin A-C 10 mg-100 mg/5 mL oral syrup, 10 ml po q4 hrs prn 39) simethicone 80 mg chewable tablet, Take 1 tablet by mouth before meals for indigestion 40) sulfamethoxazole 800 mg-trimethoprim 160 mg tablet, Take 1 tablet by mouth 2 times a Day 41) Vitamin D3 25 mcg (1,000 unit) tablet, Take 1 tablet by mouth every morning 42) Wellbutrin SR 150 mg tablet, 12 hr sustained-release, Take 1 tablet by mouth every morning Physical Examination: Wt: 283.4 lb Ht/Ln: 65.5 in BMI: 46.4 BP: 110/66 Pulse: 87 RR: 16 Temp: 97.1F Well nourished and well developed in no acute distress. Alert and oriented to person, place and time. Affect is normal and appropriate. Mucosa pink and moist. Respirations even and unlabored. No conversational shortness of breath or cough. Wearing oxygen 2L NC. Neck is supple without significant lymphadenopathy or thyromegaly. Abdomen soft & non-tender. No HSM or masses appreciated. Extremities show no cyanosis, clubbing, or edema. Antalgic gait with a walker. Pain elicited with deep palpation of right hip Lumbar paraspinal muscle without tenderness bilaterally. Lumbar ROM is limited due to pain with extension. Bilateral lumbar facet loading is positive. Negative SLR from seated position bilaterally. Positive JOSE test on right. 4/5 lower extremity muscle strength. ROM of the left shoulder is limited due to pain with all motion. Positive Hawkin sign on left. Right knee with pain over knee joint; greatest at upper area.improved. Negative valgus/varus stressors. Negative anterior shelf test. Motor and sensory exam is unchanged. 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 (Transmitted by Phoebe Napoles APRN, ANIMAL CARE TECHNICIAN) (increased to TID PRN for acute on chronic pain.) PRESCRIBE: Medrol (Darrius) 4 mg tablets in a dose pack, take as directed from package Do not take NSAIDS along with this., # 1, RF: 0. (Transmitted by Phoebe Napoles APRN, ANIMAL CARE TECHNICIAN) Continue current medication regimen. Instructed to take percocet 5/325mg take one tab po three times a day as needed for pain OARRS was reviewed today. UDS reviewed and consistent. SOAPP score is 1. There are signs of diversion or addiction with the pt, there is also signs of abuse or misuse, we will continue monitoring the pt closely. Reviewed with the pt today our opioid agreement and they appear to understand. Life style modifications were also discussed today and the pt appears to understand. Weight loss was recommended today through diet and exercise. Risks and benefits of the above meds were discussed with the pt and they appear to understand. The common side effects of the medications were discussed and all of their questions and concerns were answered and they appear to understand. Schedule left supraclavicular nerve block with fluoroscopy. Pt was advised to stop their Eliguis for 2 days prior to thier injection after discussing it with their PCP, pt verbilized understanding. We have discussed the risks, benefits as well as alternatives of the procedure and the patient appears to understand and would like to proceed with the above plan. The above plan was discussed today with the pt in details and she appears to understand and agrees to continue with the plan.
== END 2024-04-12 12:16 | disposition home or self-care (01) ==
LOC: SDC 10:05 → AC 10:07
PROVIDERS: PCP Family Medicine; Referring Provider Anesthesiology Pain Medicine; Visit Provider Anesthesiology Pain Medicine
PROC: 3E0U3GC Introduction of Other Therapeutic Substance into Joints, Percutaneous Approach (ICD-10-PCS; CPT 20610; principal; 2024-04-12 11:35)
DX: M19.012 Primary osteoarthritis, left shoulder (principal); I50.9 Heart failure, unspecified; M25.511 Pain in right shoulder; Z90.710 Acquired absence of both cervix and uterus; Z79.891 Long term (current) use of opiate analgesic; M47.816 Spondylosis without myelopathy or radiculopathy, lumbar region; G89.29 Other chronic pain; M54.2 Cervicalgia; M53.3 Sacrococcygeal disorders, not elsewhere classified; M47.817 Spondylosis without myelopathy or radiculopathy, lumbosacral region; M46.96 Unspecified inflammatory spondylopathy, lumbar region; M16.11 Unilateral primary osteoarthritis, right hip; F41.9 Anxiety disorder, unspecified; Z95.1 Presence of aortocoronary bypass graft; Z90.49 Acquired absence of other specified parts of digestive tract; Z96.653 Presence of artificial knee joint, bilateral
CPT/HCPCS: 64418; 73020; 77002; A4216; J2405

== ENCOUNTER → 2024-04-13 | Outpatient (CLI) | payer MEDICARE, MEDICAID, SELFPAY ==
--- OUTSIDE RECORDS SUMMARY | 2024-04-13 17:18 | XMS RPT_ITS | CCD ---
Author Organization [facility] ion Partnership [facility] Care Team Providers Care Marketing Strategy Manager Name Role Phone Bogdan Ewing Unavailable [phone] ALETHA KISER Unavailable Unavailable ALETHA KISER Unavailable Unavailable COLLETTE, KHALED Unavailable Unavailable PROVIDER, UNKNOWN Admitting Unavailable KHARI MCADAMS Attending Unavailable Pcp HUMAN RESOURCES OPERATIONS MANAGER, No Primary Care Provider Unavailabl e Pcp HUMAN RESOURCES OPERATIONS MANAGER, No Primary Care Provider Unavailabl e Pcp HUMAN RESOURCES OPERATIONS MANAGER, No Primary Care Provider Unavailabl e Celeste Benedict MD Unavailable [phone] Pcp HUMAN RESOURCES OPERATIONS MANAGER, No Primary Care Provider Unavailabl e Genna Mccarthy DO Primary Care Provider Jefferson Roman Chi Primary Care Provider Allergies Allergy Classification Reported Allergen(s) Allergy Type Date of Onset Reaction(s) Facility (2 sources) warfarin drug allergy 7 [facility] Work Phone: (3 sources) amoxicillin; Translations: [AMOXICILLIN] Drug Allergy 7 Anaphylaxis [facility] Repository (3 sources) warfarin; Translations: [WARFARIN SODIUM] Drug Allergy 2 Other: See Comments [facility] Repository (1 source) Ampicillin; Translations: [AMPICILLIN] Drug Allergy 9 [facility] Repository Medications Completed/Discontinued Medications Medication Drug Class(es) Dates Sig (Normalized) Sig (Original) acetaminophen 500 mg oral tablet (2 sources) Start: 12-19-2016 ACETAMINOPHEN EXTRA STRENGTH 500 MG TABS ACETAMINOPHEN [id number] Bogdan JOSHI amitriptyline hydrochloride 25 mg oral tablet (2 sources) Tricyclic Antidepressant Start: 12-19-2016 AMITRIPTYLINE HCL 25 MG TABS AMITRIPTYLINE HCL [id number] Bogdan JOSHI AMOXICILLIN-POT CLAVULANATE (2 sources) Penicillin-class Antibacterial Start: 12-19-2016 AUGMENTIN 500-125 MG TABS 1 tablet twice daily AMOXICILLIN-POT CLAVULANATE [id number] Bogdan JOSHI denosumab 60 mg/ml injectable solution (2 sources) RANK Ligand Inhibitor Start: 12-19-2016 PROLIA 60 MG/ML SOLN DENOSUMAB [id number] Bogdan JOSHI DULoxetine 60 mg delayed release oral capsule (2 sources) Serotonin and Norepinephrine Reuptake Inhibitor Start: 12-19-2016 CYMBALTA 60 MG CPEP DULOXETINE HCL [id number] Bogdan JOSHI ergocalciferol 35121 unt oral tablet (2 sources) Provitamin D2 Compound Start: 12-19-2016 VITAMIN D (ERGOCALCIFEROL) 72756 UNIT CAPS ERGOCALCIFEROL [id number] Bogdan JOSHI FLUTICASONE PROPIONATE (2 sources) Corticosteroid Start: 12-19-2016 FLONASE ALLERGY RELIEF 50 MCG/ACT SUSP FLUTICASONE PROPIONATE 55487300620 Bogdan JOSHI furosemide 40 mg oral tablet (2 sources) Loop Diuretic Start: 12-19-2016 LASIX 40 MG TABS FUROSEMIDE [id number] Bogdan JOSHI gabapentin 300 mg oral tablet (2 sources) Anti-epileptic Agent Start: 12-19-2016 NEURONTIN 300 MG CAPS GABAPENTIN 08097423586 Bogdan JOSHI vitamin b 12 3 mg sublingual tablet (2 sources) Vitamin B12 B-12 3000 MCG [address]AC[address] CYANOCOBALAMIN [id number] Bogdan JOSHI Problems Active Problems Problem Classification [...] Results Test Name Value Interpretation Reference Range [facility] 09-07-2019 Anion gap [Moles/Vol] 4 mmol/L Low 5-16 [facility] Comment on above: Performed By: #### L 500.11193, L500.31603 #### [facility] [address] [place] [address] Calcium [Mass/Vol] 8.8 mg/dL Normal 8.5-10.1 [facility] Comment on above: Performed By: #### L 500.57826, L500.87426 #### [facility] [address] [place] [address] Chloride [Moles/Vol] 104 mmol/L Normal 98-107 [facility] Comment on above: Performed By: #### L 500.85303, L500.91942 #### [facility] [address] [place] [address] CO2 [Moles/Vol] 31 mmol/L Normal 21-32 [facility] Comment on above: Performed By: #### L 500.70057, L500.81513 #### [facility] [address] [place] [address] Creatinine [Mass/Vol] 0.856 mg/dL Normal 0.510-0.950 [facility] Comment on above: Result Comment: Maggy ents receiving either N-Acetylcysteine (NAC) or Metamizole prior to venipuncture, may have falsely depressed results. Performed By: #### L 500.96766, L500.71520 #### [facility] [address] [place], [place] [id number] Glucose [Mass/Vol] 106 mg/dL High 70-100 [facility] Comment on above: Result Comment: 70-1 00- Normal Fasting; 100-125 Impaired Fasting; greater than 126 on more than one result- Diabetes. ADA guidelines. Results may be falsely elevated after the administration of Sulfapyridine. Results may be falsely depressed after the administration of Sulfasalazine. Performed By: #### L 500.12072, L500.30320 #### [facility] [address] [place] [address] Potassium [Moles/Vol] 4.4 mmol/L Normal 3.5-5.1 [facility] Comment on above: Performed By: #### L 500.73226, L500.43548 #### [facility] [address] [place] [address] Sodium [Moles/Vol] 139 mmol/L Normal 136-145 [facility] Comment on above: Performed By: #### L 500.61613, L500.76641 #### [facility] [address] [place] [address] Urea nitrogen [Mass/Vol] 23 mg/dL Normal 7-26 [facility] Comment on above: Performed By: #### L 500.75465, L500.34382 #### [facility] [address] [place] [address] Urea nitrogen/Creatinine [Mass ratio] 26 mg/mg High 15-24 [facility] Comment on above: Performed By: #### L 500.54503, L500.04525 #### [facility] [address] [place] [address] GFR ESTon 09-07-2019 IF AMER Greater than 60 Normal [facility] Comment on above: Performed By: #### L 500.56078, L500.46334 #### [facility] [address] [place] [address] IF non-AFR AMER Greater than 60 Normal [facility] Comment on above: Performed By: #### L 500.72536, L500.86807 #### [facility] [address] [place] [address]# [phone] ANES Dank 11-06-2018 ANES POST HNO ID: [id number] Author: Rajeev Perry Service: Anesthesiology Author Type: Physician Type: Anesthesia PostOp Filed: 11/06/2018 9:45 AM Note Text: POST ANESTHESIA EVALUATION NOTE SERVICE DATE: 11/06/2018 SERVICE TIME: 943 : 1945 Vitals: 11/06/18 0732 Temp: 36.1 ?C (97 ?F) 11/06/18 0732 11/06/18 0851 11/06/18 0910 BP: 110/61 (!) 105/48 113/65 11/06/18 0732 11/06/18 0851 11/06/18 0910 Pulse: 76 69 65 11/06/18 0732 11/06/18 0851 11/06/18 0910 Resp: 16 18 16 11/06/18 0732 11/06/18 0851 11/06/18 0910 SpO2: 94% 97% 96% Validated Vital Signs: Yes POST ANES STATUS: No apparent anesthetic complications. The patient is appropriately hydrated with stable respiratory and cardiovascular status. Patient has safe and adequate airway control. The patient has appropriate pain relief and no significant post operative nausea or vomiting. The patient has achieved baseline mental status. Intra-Operative Events: No Significant Anesthesia Events Further assessment by Anesthesia Service: None Other Remarks: Per report, pt met criteria for discharge from PACU SIGNATURE: Rajeev Perry MD PATIENT NAME: Mary Grace Nix DATE: November 06, 2018 TIME: 9:44 AM PAGER/CONTACT #: Raudel [facility] ANES PREOPon 11-06-2018 ANES PREOP HNO ID: [id number] Author: Rajeev Perry Service: Anesthesiology Author Type: Physician Type: Anesthesia PreOp Filed: 11/06/2018 8:08 AM Note Text: ANESTHESIOLOGY DAY OF SURGERY NOTE SERVICE DATE: 11/06/2018 SERVICE TIME: 749 : 1945 Procedure(s) (LRB): EGD (N/A) Surgeon(s): Bull Dupont Estimated body mass index is 47.43 kg/m? as calculated from the following: Height as of this encounter: 165.1 cm (5' 5 ). Weight as of this encounter: 129.3 kg (285 lb). Most recent hematocrit and potassium results: Hematocrit 42.0 09/03/2018 Potassium 4.2 09/03/2018 ANES DOS/PREOP NOTE: Vitals: 11/03/18 1432 11/06/18 0732 BP: 110/61 Pulse: 76 Resp: 16 Temp: 36.1 ?C (97 ?F) SpO2: 94% Weight: 129.3 kg (285 lb) 129.3 kg (285 lb) Height: 165.1 cm (5' 5 ) 165.1 cm (5' 5 ) ACTIVE PROBLEM LIST Oa (Osteoarthritis) of Knee Morbid Obesity ([facility]) Htn (Hypertension) Dm (Diabetes Mellitus) ([facility]) Obesity Pe (Pulmonary Embolism) S/P Total Knee Arthroplasty Uti (Lower Urinary Tract Infection) Abnormal Mammogram, Unspecified Hamstring Tendonitis At Origin Dvt (Deep Vein Thrombosis) in ([facility]) Right Flank Pain PAST MEDICAL HISTORY Diagnosis Date - Chronic obstructive pulmonary disease (COPD) ([facility]) pt states this had resolved since her gastric bypass, denies SOB, does not use any inhalers - Chronic renal insufficiency Creatinine was 0.87 in 09-04-18 - Depressive disorder, not elsewhere classified - DM (diabetes mellitus) ([facility]) resolved after the gastric bypass in 2010 - HTN (hypertension) - Kidney stones - Morbid obesity ([facility]) 02/20/2012 Lost 190 pounds after Gastric bypass in 2011 - Neuropathy ([facility]) mc LE; began when she was diabetic - OA (osteoarthritis) of knee Bilaterally - OAB (overactive bladder) - Other and unspecified postsurgical nonabsorption - PE (pulmonary embolism) 11/2010 s/p IVC filter. 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 surgery - on heparin injections since then BID PAST SURGICAL HISTORY Procedure Laterality Date - CARPAL TUNNEL RIGHT WRIST - CHOLECYSTECTOMY HX 89 - COLONOSCOP W/ OR W/O BRSH SPEC 07/28/2015 Colonoscopy with mac - GASTRIC BYPASS HX 10/2010 bolivar-en-y - HYSTERECTOMY HX with BSO - PAST SURGICAL HISTORY OF Left 1956 ORIF left arm - STEREO LOC FOR CORE BRST BX RT 04-29-13 - TONSILLECTOMY HX - TOTAL KNEE REPLACEMENT Bilateral Knee replacement, total FAMILY HISTORY Problem Relation Age of Onset - Prostate Cancer Father - Colon Cancer Father at 65 - Hypertension Mother - Heart Mother - Diabetes Mother Social History: Social History Tobacco Use - Smoking status: Never Smoker - Smokeless tobacco: Never Used Substance Use Topics - Alcohol use: Yes Comment: Occasionally - Drug use: No No current facility-administered medications on file prior to encounter. Current Outpatient Medications on File Prior to Encounter: PARoxetine (PAXIL) 20 mg tablet Take 20 mg by mouth once daily. pravastatin (PRAVACHOL) 40 mg tablet Take 40 mg by mouth once daily. Cholecalciferol, Vitamin D3, (VITAMIN D) 1,000 unit cap Take 1,000 Units by mouth once daily. cyanocobalamin/folic acid (VITAMIN D37-DYCSY ACID) 500-400 mcg tab Take 1 tablet by mouth once daily. apixaban (ELIQUIS) 5 mg tab(s) Take by mouth twice daily. divalproex DR (DEPAKOTE) 500 mg EC tablet Take 500 mg by mouth once daily. ASCORBIC ACID (VITAMIN C ORAL) Take by mouth twice daily. omeprazole (PRILOSEC) 20 mg capsule TAKE 1 CAPSULE BY MOUTH TWICE DAILY. (Patient taking differently: Taking 40 mg Daily) ACETAMINOPHEN (TYLENOL ARTHRITIS ORAL) 20 ml Every 4 hours as needed By mouth CALCIUM CARBONATE/VITAMIN D3 (VITAMIN D-3 ORAL) 1,000 mcg Once per day By mouth denosumab (PROLIA) 60 mg/mL syrg Inject 60 mg subcutaneously one time only. Every 6 months furosemide (LASIX) 40 mg tablet Take 40 mg by mouth once daily. DULoxetine 60 mg capsule Take 60 mg by mouth once daily. gabapentin (NEURONTIN) 300 mg capsule Take 300 mg by mouth three times daily. VESICARE 5 mg tablet Take 5 mg by mouth once daily. polyethylene glycol 3350 (MIRALAX) 17 gram/dose powder Take 17 g by mouth twice daily. Methenamine Hippurate (HIPREX) 1 gram tablet Take 1 g by mouth twice daily with meals. amitriptyline 25 mg tablet Take 25 mg by mouth daily at bedtime. Current Facility-Administered Medications: lactated ringers infusion 5-30 mL/hr INTRAVENOUS CONTINUOUS Bull Dupont Last Rate: 30 mL/hr at 11/06/18743 30 mL/hr at 11/06/18743 Allergies: ALLERGIES Allergen Reactions - Amoxicillin Anaphylaxis - Coumadin [Warfarin * Other: See Comments PATIENT ALMOST 'BLEED OUT DOS EXAM: Adequate NPO status: Yes Anesthetic risks, benefits, alternatives, personnel and consent discussed: Yes Patient agrees to proceed: Yes Previous Anesthesia: No history of adverse event. Airway Assessment: MP 3; Neck ROM: Full ROM without neurologic symptoms; Airway Evaluation: No significant abnormalities Symptoms of Sleep Apnea: Hypertension, BMI > 35 and Age over 50 (73 year old) Dentition: Dentures: both Edentulous Additional Physical Exam: Lungs: Lungs clear to auscultation. Good diaphragmatic excursion. Cardiac: normal S1 and S2; no rubs, no murmurs, and no gallops Additional Pertinent Findings: N/A Blood Products: Not anticipated for this procedure. Anesthetic Plan: MAC with Sedation and Standard ASA Monitors Pain Management Plan: Parenteral or Oral ASA Class: 3 Other Medical Problems: None Chronic Beta Edgardo medication administered within 24 hours: N/A I have interviewed and examined the patient. I have reviewed the medical record and/or the pre-anesthesia evaluation, pertinent labs, and test results. Significant changes in the patient's condition since the History and Physical, not otherwise documented in primary service progress notes: No This contains updated information obtained within 48 hours of Surgery/Procedure. SIGNATURE: Rajeev Perry MD PATIENT NAME: Mary Grace Nix DATE: November 06, 2018 TIME: 8:07 AM CSN: [id number] Normal [facility] HISTORY PHYSICALon HISTORY PHYSICAL HNO ID: [id number] Author: Tressa Calles (Pa) Service: ? Author Type: Physician Master Cook Type: HANDP Filed: 11/06/2018 8:08 AM Note Text: HISTORY AND PHYSICAL EXAMINATION Mary Grace Nix 1945 SERVICE DATE: 11/06/2018 SERVICE TIME: 7:56 AM PRIMARY CARE PHYSICIAN: Jefferson Roman MD SURGEON: Surgeon(s) and Role: * Bull Dupont - Primary ANESTHESIA: Monitored Anesthesia Care DIAGNOSIS: Gastroesophageal reflux disease, esophagitis presence not specified [K21.9] PROCEDURE: Procedure(s): EGD (N/A) Subjective CHIEF COMPLAINT: I have a lot of acid HPI: This is a 73 year old female who presents with a 2 years history of frequent heartburn and intermittent epigastric discomfort. Patient is S/P gastric bypass in 2011, losing 190 pounds. Patient describes a discomfort after swallowing solid foods; c/o a sharp epigastric pain and food getting stuck ; frequently requiring patient to vomit to release. Denies nausea or decrease in appetite. Patient states she has lost 30 pounds in the past 2 years, unintentionally. PROBLEMS WITH ANESTHESIA: no history of adverse anesthetic event FAMILY PROBLEMS WITH ANESTHESIA: no history of adverse anesthetic event METS: Climb a flight of stairs or walk up a hill (5.50 METs) FUNCTIONAL STATUS: Independent PAST MEDICAL HISTORY Diagnosis Date - Chronic obstructive pulmonary disease (COPD) ([facility]) pt states this had resolved since her gastric bypass, denies SOB, does not use any inhalers - Chronic renal insufficiency Creatinine was 0.87 in 09-04-18 - Depressive disorder, not elsewhere classified - DM (diabetes mellitus) ([facility]) resolved after the gastric bypass in 2010 - HTN (hypertension) - Kidney stones - Morbid obesity ([facility]) 02/20/2012 Lost 190 pounds after Gastric bypass in 2011 - Neuropathy ([facility]) mc LE; began when she was diabetic - OA (osteoarthritis) of knee Bilaterally - OAB (overactive bladder) - Other and unspecified postsurgical nonabsorption - PE (pulmonary embolism) 11/2010 s/p IVC filter. 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 surgery - on heparin injections since then BID PAST SURGICAL HISTORY Procedure Laterality Date - CARPAL TUNNEL RIGHT WRIST - CHOLECYSTECTOMY HX 89 - COLONOSCOP W/ OR W/O BRSH SPEC 07/28/2015 Colonoscopy with mac - GASTRIC BYPASS HX 10/2010 bolivar-en-y - HYSTERECTOMY HX with BSO - PAST SURGICAL HISTORY OF Left 1956 ORIF left arm - STEREO LOC FOR CORE BRST BX RT 04-29-13 - TONSILLECTOMY HX - TOTAL KNEE REPLACEMENT Bilateral Knee replacement, total FAMILY HISTORY Problem Relation Age of Onset - Prostate Cancer Father - Colon Cancer Father at 65 - Hypertension Mother - Heart Mother - Diabetes Mother Social History Tobacco Use - Smoking status: Never Smoker - Smokeless tobacco: Never Used Substance Use Topics - Alcohol use: Yes Comment: Occasionally - Drug use: No Prior to Admission medications as of 11/06/18 0741 Medication Sig Last Dose Taking PARoxetine (PAXIL) 20 mg tablet Take 20 mg by mouth once daily. 11/06/2018 at 0600 Yes pravastatin (PRAVACHOL) 40 mg tablet Take 40 mg by mouth once daily. Yes Cholecalciferol, Vitamin D3, (VITAMIN D) 1,000 unit cap Take 1,000 Units by mouth once daily. Yes cyanocobalamin/folic acid (VITAMIN Y01-OENPI ACID) 500-400 mcg tab Take 1 tablet by mouth once daily. Yes apixaban (ELIQUIS) 5 mg tab(s) Take by mouth twice daily. 11/03/[address] at [address] (DEPAKOTE) 500 mg EC tablet Take 500 mg by mouth once daily. 11/05/2018 Yes ASCORBIC ACID (VITAMIN C ORAL) Take by mouth twice daily. Yes omeprazole (PRILOSEC) 20 mg capsule TAKE 1 CAPSULE BY MOUTH TWICE DAILY. Patient taking differently: Taking 40 mg Daily 11/06/2018 at 0600 Yes ACETAMINOPHEN (TYLENOL ARTHRITIS ORAL) 20 ml Every 4 hours as needed By mouth Yes CALCIUM CARBONATE/VITAMIN D3 (VITAMIN D-3 ORAL) 1,000 mcg Once per day By mouth Yes denosumab (PROLIA) 60 mg/mL syrg Inject 60 mg subcutaneously one time only. Every 6 months Yes furosemide (LASIX) 40 mg tablet Take 40 mg by mouth once daily. 11/06/2018 at 0600 Yes DULoxetine 60 mg capsule Take 60 mg by mouth once daily. Yes gabapentin (NEURONTIN) 300 mg capsule Take 300 mg by mouth three times daily. 11/05/2018 Yes VESICARE 5 mg tablet Take 5 mg by mouth once daily. polyethylene glycol 3350 (MIRALAX) 17 gram/dose powder Take 17 g by mouth twice daily. Methenamine Hippurate (HIPREX) 1 gram tablet Take 1 g by mouth twice daily with meals. amitriptyline 25 mg tablet Take 25 mg by mouth daily at bedtime. ALLERGIES Allergen Reactions - Amoxicillin Anaphylaxis - Coumadin [Warfarin * Other: See Comments PATIENT ALMOST 'BLEED OUT COMPLETE REVIEW OF SYSTEMS: GENERAL: See HPI RESPIRATORY: Negative for cough, hemoptysis, wheezing, COPD, dyspnea or shortness of breath CARDIOVASCULAR: Negative for chest pain, leg swelling, CHF or palpitations GI: See HPI : Positive for OAB MUSCULOSKELETAL: Positive for arthritis; positive LBP PSYCH: Positive for depression ENDOCRINE: Denies diabetes and thyroid problems NEURO: No history of headaches, syncope, paralysis, seizures or tremors Negative for stroke, seizures or headaches. Heme/Onc: Positive for DVT with PE; has IVC Filter and is on Eliquis Objective PHYSICAL EXAM: MENTAL STATUS: alert, oriented to person, place and time HEENT: Normocephalic/atraumatic, no lymphadenopathy, thyroid non-tender, without palpable masses/nodules or enlargement LUNGS: Lungs clear to auscultation, Good diaphragmatic excursion CARDIAC: Normal S1 and S2; no rubs, murmurs, or gallops ABDOMEN: Abdomen obese, soft, non-tender, BS normal, No masses or organomegaly EXTREMITIES: Extremities normal, no deformities, edema, clubbing or skin discoloration. Good capillary refill., No ulcers 11/03/18 1432 11/06/18 0732 BP: 110/61 Pulse: 76 Resp: 16 Temp: 36.1 ?C (97 ?F) SpO2: 94% Weight: 129.3 kg (285 lb) 129.3 kg (285 lb) Height: 165.1 cm (5' 5 ) 165.1 cm (5' 5 ) Body mass index is 47.43 kg/m?. SIGNATURE: Tressa Calles PA-C PATIENT NAME: Mary Grace Nix DATE: November 06, 2018 TIME: 7:56 AM PAGER/CONTACT #: Normal [facility] NURSING PROGon 11-06-2018 Protein mass conc HNO ID: [id number] Author: Maya (Rn) LORENZO Chen Service: ? Author Type: Registered Nurse Type: Nursing Progress Note Filed: 11/06/2018 9:18 AM Note Text: Dr Dupont spoke with patient and daughter both verbalize understanding of discharge instructions and verbalize ready for discharge Normal [facility] OPERATIVE NOon 11-06-2018 OPERATIVE NO HNO ID: [id number] Author: Bull Dupont Service: Gastroenterology Surgery Author Type: Physician Type: Operative Report Filed: 11/10/2018 9:04 AM Note Text: [facility] - Operative Report - MARY GRACE ENRIQUEZ : 1945 AGE: 73. SEX: F PATIENT TYPE: A HOSP SVC: GENS LOCATION: [facility] ATTENDING PHYSICIAN: BULL DUPONT CSN NUMBER: [id number] DATE OF SURGERY/PROCEDURE: 11/06/2018 INCISION/PROCEDURE START TIME: 8:32 AM INCISION CLOSE/PROCEDURE END TIME: 8:41 AM PREOPERATIVE DIAGNOSIS: Gastroesophageal reflux disease, history of gastric bypass. POSTOPERATIVE DIAGNOSIS: Gastroesophageal reflux disease, history of gastric bypass, 3-4 cm hiatal hernia. SURGEON: Bull Dupont MD AUTOMATIC NAILING MACHINE FEEDER: Nursing. SURGERY/PROCEDURE: Esophagogastroduodenoscopy with biopsy of gastric pouch. ANESTHESIA: Monitored anesthetic care. INDICATIONS: Noted above. Risks, benefits, and options discussed. DESCRIPTION OF PROCEDURE: The patient was taken to endoscopy suite, prepared in usual fashion. MAC anesthesia was employed per the Anesthesia team. Standard endoscope was inserted without difficulty all way through the esophagus, gastric pouch, and into the jejunum past the gastrojejunostomy for 10-20 cm. The jejunum was normal. The blind limb was not long, was short. The gastrojejunostomy was approximately 14 mm in size. There was no marginal ulcer and I was able to visualize the area quite well. The gastric pouch itself was somewhat long and somewhat mildly narrow. It was 5-6 cm. I was able to barely retroflex, and I got a good look at the Z-line, it was normal. There was a 3-4 cm hiatal hernia with almost half the pouch herniated. The rest of esophagus was unremarkable. The vocal cords appeared normal. The patient tolerated the procedure well. Bull Dupont MD WJC:[id number] [facility] PT EDon 11-06-2018 PT ED HNO ID: [id number] Author: Chanell (Lorenzo) LORENZO Cedeno Service: ? Author Type: Registered Nurse Type: Patient Education Filed: 11/06/2018 7:44 AM Note Text: ONGOING PATIENT EDUCATION TOPIC Reinforced: pain scale Patient Name: Mary Grace Nix Patient [facility]: [facility] Readiness To Learn Motivation To Learn: Eager Instruction Provided To: Patient Learning Response Patient/Family Response: Verbalizes understanding of: PAIN MANAGEMENT-Effective strategies to manage pain in addition to pain medication Method of Instruction: Individual instruction Follow-Up Plan: Complete - No need for follow-up Electronically signed by: Chanell Cedeno RN [facility] Surgical Tissue Examon 11-06 Surgical Tissue Exam Test performed at [place] [address] NAME: MARY GRACE NIX REQUESTING: BULL DUPONT M.D. FINAL DIAGNOSIS: STOMACH, POUCH BIOPSY - MODERATE FEATURES OF REACTIVE GASTROPATHY WITH MILD CHRONIC INFLAMMATION. NO MORPHOLOGIC FEATURES OF HELICOBACTER PYLORI ARE IDENTIFIED BY ROUTINE STAIN. OPERATIVE PROCEDURE: EGD with biopsy CLINICAL INFORMATION: Gastroesophageal reflux disease, esophagitis presence not specified [K21.9] GROSS DESCRIPTION: Biopsy - gastric pouch Received in formalin labeled biopsy, gastric pouch, are multiple marmolejo soft segments of tissue aggregating to 0.7 x 0.3 x 0.2 cm. The specimens are totally submitted in formalin in one cassette. KVB:haleigh FONTENOT M.D. PATHOLOGIST (Electronic signature on file) Signed out: 11/11/2018 17:08 PRINTED: 11/11/2018 Page 1 of 1 Normal [facility] Comment on above: Performed By: #### S URG #### [place] [address] HOSPon 09-29-2018 HOSP Patient:Maggie Nix MRN: Height:5' 5 (1.651 m) Weight:No patient weight recorded within the last 30 days. Outpatient Medications as of 11/06/18: PARoxetine (PAXIL) 20 mg tablet pravastatin (PRAVACHOL) 40 mg tablet VESICARE 5 mg tablet Cholecalciferol, Vitamin D3, (VITAMIN D) 1,000 unit cap cyanocobalamin/folic acid (VITAMIN Z43-SGITA ACID) 500-400 mcg tab apixaban (ELIQUIS) 5 mg tab(s) divalproex DR (DEPAKOTE) 500 mg EC tablet polyethylene glycol 3350 (MIRALAX) 17 gram/dose powder Methenamine Hippurate (HIPREX) 1 gram tablet ASCORBIC ACID (VITAMIN C ORAL) omeprazole (PRILOSEC) 20 mg capsule ACETAMINOPHEN (TYLENOL ARTHRITIS ORAL) CALCIUM CARBONATE/VITAMIN D3 (VITAMIN D-3 ORAL) denosumab (PROLIA) 60 mg/mL syrg amitriptyline 25 mg tablet furosemide (LASIX) 40 mg tablet DULoxetine 60 mg capsule gabapentin (NEURONTIN) 300 mg capsule Admission/Clinic Administered Medications as of 11/06/18: lactated ringers infusion Problem List: OA (osteoarthritis) of knee [M17.10] Morbid obesity ([facility]) [E66.01] HTN (hypertension) [I10] DM (diabetes mellitus) ([facility]) [E11.9] Obesity [E66.9] PE (pulmonary embolism) [I26.99] S/P total knee arthroplasty [Z96.659] UTI (lower urinary tract infection) [N39.0] Abnormal mammogram, unspecified [R92.8] Hamstring tendonitis at origin [M76.899] DVT (deep vein thrombosis) in ([facility]) [O22.30, I82.409] Right flank pain [R10.9] Allergies: Amoxicillin Coumadin [Warfarin Sodium] Date Verified: 11/06/18 Lab Values No results within the last 30 days for the following basenames: K,HCT No progress notes entered within the past 30 days Normal [facility] OBSOLETEon 01-01-2018 OBSOLETE Refill (AGGENS4) MARY GRACE NIX ([id number]) 1945 F Date Time Provider Department 01/01/18 ALICIA CULLEN (BULMARO) AGGENS4 During your visit today, we recorded the following information about you: Allergies As of Date: 01/01/2018 Noted Allergy Reaction AMOXICILLIN 06/17/2017 4 - Hives COUMADIN (WARFARIN SODIUM) 02/20/2012 14 - Other: See Comments Comments: PATIENT ALMOST 'BLEED OUT Date Reviewed: 06/18/2017 Reviewed by: Karon (Rn) LORENZO Greer - Fully Assessed Reason for Visit: Refill Request [94] Prescriptions as of 01/01/2018 Sig: POLYETHYLENE GLYCOL 3350 17 G* Take 17 g by mouth twice mauri* METHENAMINE HIPPURATE 1 GRAM * Take 1 g by mouth twice daily* VITAMIN C ORAL Take by mouth twice daily. OMEPRAZOLE 20 MG CAPSULE,JEANNETTE* TAKE 1 CAPSULE BY MOUTH TWICE* TYLENOL ARTHRITIS ORAL 20 ml Every 4 hours as needed* VITAMIN D-3 ORAL 1,000 mcg Once per day By roxana* DENOSUMAB 60 MG/ML SUBCUTANEO* Inject 60 mg subcutaneously o* AMITRIPTYLINE 25 MG TABLET Take 25 mg by mouth daily at * FUROSEMIDE 40 MG TABLET Take 40 mg by mouth once mauri* DULOXETINE 60 MG CAPSULE,JEANNETTE* Take 60 mg by mouth once mauri* GABAPENTIN 300 MG CAPSULE Take 300 mg by mouth three ti* Problem List As Of Date 01/01/2018 Noted Resolved OA (osteoarthritis) of knee [M17.10] INVALID FOR* Morbid obesity [E66.01] INVALID FOR* More... HTN (hypertension) [I10] More... DM (diabetes mellitus) [E11.9] More... Obesity [E66.9] PE (pulmonary embolism) [I26.99] INVALID FOR* More... S/P total knee arthroplasty [Z96.659] INVALID FOR* UTI (lower urinary tract infection) [N39.0] INVALID FOR* Abnormal mammogram, unspecified [R92.8] INVALID FOR* Hamstring tendonitis at origin [M76.899] INVALID FOR* Rectal bleeding [K62.5] INVALID FOR*07/28/2015 Family history of colon cancer [Z80.0] INVALID FOR*07/28/2015 History of colon polyps [Z86.010] INVALID FOR*07/28/2015 DVT (deep vein thrombosis) in (HCC) [*INVALID FOR* Right flank pain [R10.9] INVALID FOR* Abnormal urinalysis [R82.90] INVALID FOR*06/19/2017 Colon distention [K63.89] INVALID FOR*06/19/2017 Encounter Status:Closed by PRIMITIVO MENDOSA on 04/07/18 [facility] OBSOLETEon 12-09-2017 OBSOLETE Refill (AGGENS4) MARY GRACE NIX ([id number]) 1945 F Date Time Provider Department 12/09/17 ALICIA CULLEN (REHABILITATION SUPERVISOR) AGGENS4 During your visit today, we recorded the following information about you: Frida Amaya MA 12/30/2017 2:35 PM Signed Patient stated that she will follow up with PCP for this medication Allergies As of Date: 12/09/2017 Noted Allergy Reaction AMOXICILLIN 06/17/2017 4 - Hives COUMADIN (WARFARIN SODIUM) 02/20/2012 14 - Other: See Comments Comments: PATIENT ALMOST 'BLEED OUT Date Reviewed: 06/18/2017 Reviewed by: Karon (Rn) LORENZO Greer - Fully Assessed Reason for Visit: Refill Request [94] Prescriptions as of 12/09/2017 Sig: POLYETHYLENE GLYCOL 3350 17 G* Take 17 g by mouth twice mauri* METHENAMINE HIPPURATE 1 GRAM * Take 1 g by mouth twice daily* VITAMIN C ORAL Take by mouth twice daily. OMEPRAZOLE 20 MG CAPSULE,JEANNETTE* TAKE 1 CAPSULE BY MOUTH TWICE* TYLENOL ARTHRITIS ORAL 20 ml Every 4 hours as needed* VITAMIN D-3 ORAL 1,000 mcg Once per day By roxana* DENOSUMAB 60 MG/ML SUBCUTANEO* Inject 60 mg subcutaneously o* AMITRIPTYLINE 25 MG TABLET Take 25 mg by mouth daily at * FUROSEMIDE 40 MG TABLET Take 40 mg by mouth once mauri* DULOXETINE 60 MG CAPSULE,JEANNETTE* Take 60 mg by mouth once mauri* GABAPENTIN 300 MG CAPSULE Take 300 mg by mouth three ti* Problem List As Of Date 12/09/2017 Noted Resolved OA (osteoarthritis) of knee [M17.10] INVALID FOR* Morbid obesity [E66.01] INVALID FOR* More... HTN (hypertension) [I10] More... DM (diabetes mellitus) [E11.9] More... Obesity [E66.9] PE (pulmonary embolism) [I26.99] INVALID FOR* More... S/P total knee arthroplasty [Z96.659] INVALID FOR* UTI (lower urinary tract infection) [N39.0] INVALID FOR* Abnormal mammogram, unspecified [R92.8] INVALID FOR* Hamstring tendonitis at origin [M76.899] INVALID FOR* Rectal bleeding [K62.5] INVALID FOR*07/28/2015 Family history of colon cancer [Z80.0] INVALID FOR*07/28/2015 History of colon polyps [Z86.010] INVALID FOR*07/28/2015 DVT (deep vein thrombosis) in (HCC) [*INVALID FOR* Right flank pain [R10.9] INVALID FOR* Abnormal urinalysis [R82.90] INVALID FOR*06/19/2017 Colon distention [K63.89] INVALID FOR*06/19/2017 Encounter Status:Closed by PRIMITIVO MENDOSA on 04/07/18 [facility] CASE MANAGEMon 06-19-2017 CASE MANAGEM HNO ID: [id number] thor: Yazmin Ceballos (Sw)Service: Care ManagementAuthor Type: Social WorkerType: Care Mgt Progress NoteFiled: 06/19/2017 5:47 PMNote Text:CARE MANAGEMENT DISCHARGE NOTESERVICE DATE: 06/19/2017SERVICE TIME: 5:45 PM LOS: 0 daysAdmission Date: 06/17/2017DISCHARGE ARRANGEMENT (list agency and phone number)HomeProvider: n/a Phone: n/aCAREGIVER ASSESSMENT:Caregiver is ready, willing and able to meet the patient's needs asrecommended by the inter-professional team? YesPatient's transition needs and plan for meeting these needs: Pt to returnhome w/ resumption of DIRECTOR TELEVISION services [facility] the patient have an acute stroke diagnosis, or has the patient had astroke during this admission? NoHANDOFF COMMUNICATION:Payor Certified Master Safe Technician: David Schwarz via MUSETRANSPORTATION ARRANGEMENTS:Car familyADDITIONAL CONTACT RESOURCES: n/aNo new skilled services added. Plan to resume [facility] for HHAservices only 3x weekly. RUKHSANA left w/ David scallop cutter updating herof pt's discharge and return home with no new skilled services added atthis time.SIGNATURE: YEISON Reed PATIENT NAME: Mary Grace SeymourTE: June 19, 2017 : 5:45 PM PAGER/CONTACT #: [phone] [facility] CNDSon 06-19-2017 CNDS HNO ID: [id number] thor: Emily Osuna: (none)Author Type: PhysicianType: Discharge SummariesFiled: 06/19/2017 1:39 PMNote Text:DISCHARGE NOTE (Patient Admitted Less than 48 Hours)SERVICE DATE: 06/19/2017SERVICE TIME: 1:38 PMADMISSION DATE: 06/17/2017DISCHARGE DISPOSITION: Home/Self CareDIET: Regular , high fiberACTIVITY AFTER DISCHARGE: Resume pre-hospital activityFOLLOW UP CARE REQUIRED: follow up with pcp in the next 1-2 weeksDISCHARGE MEDICATIONS (ONLY ACTIVATE WHEN READY TO DISCHARGE):Current Discharge Medication ListSTART taking these medicationspolyethylene glycol 3350 (MIRALAX, GLYCOLAX) 17 gTake 17 g by mouth twice daily.CONTINUE these medications which have NOT CHANGEDMethenamine Hippurate (HIPREX) 1 gTake 1 g by mouth twice daily with meals.ASCORBIC ACID (VITAMIN C ORAL)Take by mouth twice daily.omeprazole (PRILOSEC) 20 mg capsuleTAKE 1 CAPSULE BY MOUTH TWICE DAILY.Qty: 60 capsule Refills: 10ACETAMINOPHEN (TYLENOL ARTHRITIS ORAL)20 ml Every 4 hours as needed By mouthCALCIUM CARBONATE/VITAMIN D3 (VITAMIN D-3 ORAL)1,000 mcg Once per day By mouthdenosumab (PROLIA) 60 mgInject 60 mg subcutaneously one time only. Every 6 monthsamitriptyline (ELAVIL) 25 mgTake 25 mg by mouth daily at bedtime.furosemide (LASIX) 40 mgTake 40 mg by mouth once daily.DULoxetine (CYMBALTA) 60 mgTake 60 mg by mouth once daily.gabapentin (NEURONTIN) 300 mgTake 300 mg by mouth three times daily.FINAL DIAGNOSIS: Obstipation, RLQ pain, Colonic DistensionSIGNATURE: Emily Basilio MD PATIENT NAME: Mary Grace NixDAANDREE: June 19, 2017 : 1:38 PM PAGER: CDU [facility] NURSING PROGon 06-19-2017 NURSING PROG HNO ID: [id number] thor: Chris Wilson) Fady Petersonice: (none)Author Type: Registered NurseType: Nursing Progress NoteFiled: 06/19/2017 7:10 PMNote Text: Nursing Progress NotePatient Name: Mary Grace CoxN: [id number] Location: [place] [address]/[place] [address]*___ Daily Note:0938 - stable, alertThis note was completed by: Chris Peterson, [id number] removed, site wnl, patient alert and stable [facility] NURSING PROG HNO ID: [id number] thor: Karon (Rn) Rohith Greer: (none)Author Type: Registered NurseType: Nursing Progress NoteFiled: 06/19/2017 3:02 AMNote Text: Nursing Progress NotePatient Name: Mary Grace EnriquezRN: [id number] Location: [place] [address]/[place] [address]*___ Daily Note:1900: Assumed care of pt report taken from offgoing RN.2030: Assessments per NPR. Pt drinking miralax in gatorade, toleratingwell. Denies pain. All needs met and safety maintained.0030: Pt nearly finished miralax, states she is unable to totally finish.0300: Pt sleeping no distress noted. Safety maintainedThis note was completed by: Karon Greer RN [facility] PROGRESSon 06-19-2017 PROGRESS HNO ID: [id number] thor: Emily Osuna: (none)Author Type: PhysicianType: Progress NotesFiled: 06/19/2017 1:26 PMNote Text:RAPID OBSERVATION UNITPROGRESS NOTEName: Mary Grace EnriquezSolangeN: [id number] DATE: 06/19/2017SERVICE TIME: 1:08 PMHospital Medicine/Primary Attending: Emily Basilio, MDASSESSMENT AND PLANPatient Active Hospital Problem List:1. Right flank pain3. Colon distention POA: Clinically UndeterminedSignificant stool burden- improved with high dose miralax/bowel prep- still some persistent pain, so will recheck KUB to make sure okay- likely discharge this afternoon2. Abnormal urinalysis POA: YesNegative Urine culture, no need for treatment.Emily Basilio MDSUBJECTIVEINTERVAL HPI:Feels better, pain not completely resolved, but many stools overnight withnearly clear stools this AMOverall feeling improved.No fever, chillsNo cp or palpitationsNo events overnightMEDICATIONS: ReviewedOBJECTIVEPHYSICAL EXAM: BP 120/69 Pulse 76 Temp (Src) 97.6 (Oral) Resp 18 Ht 5' 7 (1.70m) Wt 298 lb 14.4 oz (135.6kg) SpO2 96% BMI 46.80kg/(m2).GENERAL: alert, no distress, cooperativeLUNGS: Lungs clear to auscultation. Good diaphragmatic excursion.CARDIAC: normal S1 and S2; no rubs, murmurs, or gallopsABDOMEN: Abdomen soft, non-tender. BS normal. No masses or organomegaly.EXTREMITIES: Extremities normal. No deformities, edema, clubbing or skindiscoloration., No ulcersNEURO: Reflexes normal and symmetric. Sensation grossly intact., Cranialnerves II-XII intactPULSES: 2+ radial, 2+ carotidDATA:Diagnostic tests reviewed for today's visit:Most recent labsVTE Prophylaxis: Pneumatic Compression DeviceDisposition: HomePlan of care discussed with: PatientSIGNATURE: Emily Basilio, MDDATE: June 19, 2017TIME: 1:08 PM [facility] XR ABDOMEN 1V SUPINEon 06-19 XR ABDOMEN 1V SUPINE * * *Final Report* * *DATE OF EXAM: Jun 19 2017 10:07AM FVX 5289 - XR ABDOMEN 1V SUPINE / REASON: Constipation--RLQ abdominal pain * * * * Physician Interpretation * * * * XR ABDOMEN 1V SUPINECLINICAL INDICATION: Constipation--RLQ abdominal painCOMPARISON: NoneRESULT:Nonspecific, nonobstructive bowel gas pattern. Decreased stool burden. IVC filter. Degenerative changes in the spine.IMPRESSION:Decrease stool burden. No obstruction.Paper Folding Machine Operator : ARMANDO Transcribe Date/Time: Jun 19 2017 10:34ADictated by : ELIDA HATR MDThis examination was interpreted and the report reviewed and electronically signed by: ELIDA HART MD on Jun 19 2017 10:35AM [id number] [facility] CASE MANAGEMon 06-18-2017 CASE MANAGEM HNO ID: [id number] thor: Bere LynRn) BEKAH Daveervice: Care ManagementAuthor Type: Registered NurseType: Care Mgt Progress NoteFiled: 06/18/2017 3:51 PMNote Text:CARE MANAGEMENT PROGRESS NOTESERVICE DATE: 06/18/2017SERVICE TIME: 3:48 PM LOS: 0 daysNeeds Prior to Discharge: To Be DeterminedPatient active with [facility] [place] [phone] [facility] bird keeper[facility] that [facility] under obs to 5th [facility]at [facility] but planned to return home with agency's services. CM will follow.SIGNATURE: Bere Dave RN PATIENT NAME: Mary Grace NixDATE: June 18, 2017 : 3:47 PM PAGER/CONTACT #: [phone] [facility] CASE MGT INIT ASSESon 2016 CASE MGT INIT RE HNO ID: [id number] thor: Bere LynRn) BEKAH Daveervice: Care ManagementAuthor Type: Registered NurseType: Care Mgt Initial AssessmentFiled: 06/18/2017 10:50 AMNote Text:CARE MANAGEMENT: ASSESSMENT AND DISCHARGE PLANSERVICE DATE: 06/18/2017SERVICE TIME: 10:22 AMPRIMARY CARE PHYSICIAN:BILLY Ontiveros [place]: [phone] STATUS: ObservationPOTENTIAL DISCHARGE PLANSHomeHome CareTo Be DeterminedPatient/Representa tive Stated Goals: Return home granddaughter and w1bpufh grandchildrenNeeds Prior to Discharge: To Be DeterminedHealth Insurance: [facility] Medicare and MedicaidLiving Arrangement: HomeLives With: Grand daughter and great grand childrenFinancial Resources: RetiredPrimary Contact:Extended Emergency Contact InformationPrimary Emergency Contact:Guera Sullivan: Relation:DaughterSupport waqar: YesOther Important Patient Contacts: NoneCAREGIVER ASSESSMENT:Caregiver is ready, willing and able to meet the patient's needs asrecommended by the inter-professional team? YesPatient's transition needs and plan for meeting these needs: Return homewith [facility] the patient have an acute stroke diagnosis, or has the patient had astroke during this admission? NoADVANCE DIRECTIVES:Does Patient Have Advance Directives? Yes: Durable Power of Crane Follower forHealth Care: Mariajose Bonds(daughter) [phone] , copy is in chartDoes Patient Have Concerns About Advance Directives? NoPRIOR TO ADMISSION:Baseline Mental Status: Alert AND Oriented, Person, Place , Time andSituationFunctional Status: Needs AssistanceDoes Patient Currently Receive Any Community Services or Home Care? DIRECTOR TELEVISION [facility] Prior to [facility]: Tub bench/chairWalkerWheelchairG rab bars in bathroomHEALTH:Health Issues Impacting Discharge Plan: Right flank painHealth Literacy Issues: NoPSYCHOSOCIAL:Is the Patient Psychosocially Complex? NoFamily/Patient Understanding of Illness/Diagnosis: yesMedication Adherence:Do you forget to take your medications? I do not forget to take mymedicationHave you ever stopped taking medications because you felt worse? None ofthe timeHave you ever taken less of your medication than what was prescribed byyour doctor? None of the timeIn the past 3 months, have you had issues obtaining one or more of yourmedications? None of the timeAre you interested in bedside delivery of your medications? NoFood Concerns:In the Last Month, Have You had Trouble Getting Food? No trouble gettingfoodDuring the Last Month, Have You Worried Whether Your Food Would Run OutBefore You Had Enough Money to Buy More? NoPsychosocial Needs: NoneUTILIZATION:Last Admission Date: Previous admit date: 07/10/2016Is this Within the Past 30 days? NoHas the Patient Been in a Assisted Facility in the Past 30 days? NoFREEDOM OF CHOICE EXPLAINED:N/CRYSTAL COMMUNICATION:PRIMARY CARE PHYSICIAN:BILLY Ontiveros [place]: [phone] met with patient in room. Patient admitted for right flank pain andcolon distension. Patient lives at home with her granddaughter and greatgrand children. She receives assistance [facility] x3/week from [facility] in [place] to help assist her with housework and help her to bathe.Patient has CW through [facility] [phone]. Patient spokewith her director case management this am to make her aware she was in the hospital.Patient's daughter available for transport home. Anticipate no additionalskilled needs.SIGNATURE: Bere Dave RN PATIENT NAME: Mary Grace NixDATE: June 18, 2017 : 10:22 AM PAGER/CONTACT #: [phone] [facility] CONSULTon 06-18-2017 CONSULT HNO ID: [id number] thor: Yael MarxeService: GastroenterologyAuthor Type: Nurse PractitionerType: ConsultsFiled: 06/18/2017 12:48 PMNote Text:CONSULT: GI SERVICESERVICE DATE: 06/18/2017SERVICE TIME: 11:41 AMREASON FOR CONSULT:PRIMARY CARE PHYSICIAN: CAN Ontiveros Chi PROVIDER: No ref. provider foundASSESSMENT AND PLANAcute onset RUQ pain.CT on admission shows dilation at level of cecum up to 8.6 cm withsurrounding diffuse obstipation.Passing flatus along with small BM this morning. Reports abd pain muchimproved since admission.ABd + tenderness on palpation to RUQ, faint BS.Repeat xray shows resolution of distention but diffuse obstipation.Will perform full colonic flush with high dose MIralax. Advise for lowdose MIralax BID for home going.No need to repeat colonoscopy at this time since patient had < 2 yrs ago.Given FH and multiple polyps-do recommend repeat in Jul, 2018 or sooner ifGI symptoms persist.May be discharged from our standpoint later today if feels well andtolerating diet.SUBJECTIVEMs. Justin is a 72 year old female with h/o acute cystitis, anxiety,COPD, CRI, depression. S/p gastric bypass (2010), morbid obesity, whopresented to the ED yesterday with complaints of acute onset RUQ abd painwith radiation to her back. Patient states she developed the painimmediately following a normal bowel movement. She denies any recentconstipation, black or bloody stools. She had no associated N/V,fever/chills/sweats. States she had a similar presentation last month andwas seen in [place] ED where she lives and states CT was essentiallynormal except for gastritis . CT abd.pel on admission showed No evidenceof stone or obstruction in either collecting system.1 cm exophytichypodense lesion in the upper pole of the left kidney. ?Further evaluation with ultrasound is recommended.Distended colon,particularly at the descending colon and cecum without evidence of bowelobstruction.Small hiatal hernia.Small umbilical hernia containing smallbowel loop. She did pass gas and have small watery BM this morning. April underwent colonoscopy in Jul, 2015 in which 5 polyps were removed-allbenign. Denotes FH of colon CA in her father. Denies etoh or tobacco use.No recent weight loss or anorexia. Lost total on 190# following gastricbypass surgery.Labs:WBC 6.45, H/H 13.7, 42.1, Plt 235, BUN 20, Creat 0.72, LFTs wnlPAST MEDICAL HISTORY:PAST MEDICAL HISTORYDiagnosis Date- Acute cystitis- Anxiety state, unspecified- Arthropathy, unspecified, site unspecified- Chronic obstructive pulmonary disease (COPD) (HCC)- Chronic renal insufficiency- Depressive disorder, not elsewhere classified- DM (diabetes mellitus) (HCC) resolved after the gastric bypass in 2010- Fracture- HTN (hypertension) resolved after the gastric bypass in 2010- Mononeuritis of lower limb, unspecified- Morbid obesity (HCC) 02/20/2012- OA (osteoarthritis) of knee Bilaterally- Obesity- Other and unspecified postsurgical nonabsorption- PE (pulmonary embolism) 11/2010 s/p IVC filter. 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 surgery - onheparin injections since then BID- Personal history of unspecified urinary disorderPAST SURGICAL HISTORY:PAST SURGICAL HISTORYProcedure Laterality Date- CARPAL TUNNEL RIGHT WRIST- CHOLECYSTECTOMY HX 89- COLONOSCOP W/ [facility] 07/28/2015 Colonoscopy with mac- GASTRIC BYPASS HX 10/2010 bolivar-en-y- HYSTERECTOMY HX- STEREO LOC FOR CORE BRST BX RT 04-29-13- TONSILLECTOMY HX- TOTAL KNEE REPLACEMENT 03/04 10/03 Knee replacement, totalFAMILY HISTORY:FAMILY HISTORYProblem Relation Age of Onset- Prostate Cancer Father- Colon Cancer Father at 65- Hypertension Mother- Heart Mother- Diabetes MotherSOCIAL HISTORY:Social HistorySubstance Use Topics- Smoking status: Never Smoker- Smokeless tobacco: Never Used- Alcohol use Yes Comment: OccasionallyMEDICATIONS:Prio r to Admission Medications:Prescriptions Prior to Admission:Methenamine Hippurate (HIPREX) 1 gram tablet Take 1 g by mouth twice dailywith meals. Disp: Rfl: 06/17/2017 at 100ASCORBIC ACID (VITAMIN C ORAL) Take by mouth twice daily. Disp: Rfl:06/17/2017 at Unknown timeomeprazole (PRILOSEC) 20 mg capsule TAKE 1 CAPSULE BY MOUTH TWICE DAILY.Disp: 60 capsule Rfl: 10 06/17/2017 at 1000ACETAMINOPHEN (TYLENOL ARTHRITIS ORAL) 20 ml Every 4 hours as needed [place] Disp: Rfl: 06/17/2017 at 0700CALCIUM CARBONATE/VITAMIN D3 (VITAMIN D-3 ORAL) 1,000 mcg Once per day [place] Disp: Rfl: 06/17/2017 at 1000denosumab (PROLIA) 60 mg/mL syrg Inject 60 mg subcutaneously one timeonly. Every 6 months Disp: Rfl: Unknown at Unknown timeamitriptyline 25 mg tablet Take 25 mg by mouth daily at bedtime. Disp:Rfl: 06/16/2017 at 2100furosemide (LASIX) 40 mg tablet Take 40 mg by mouth once daily. Disp:Rfl: 06/17/2017 at 100DULoxetine 60 mg capsule Take 60 mg by mouth once daily. Disp: Rfl:06/17/2017 at 1000gabapentin (NEURONTIN) 300 mg capsule Take 300 mg by mouth three timesdaily. Disp: Rfl: 06/17/[address] [place] [address] medications:gabapentin 300 mg cap(s) (NEURONTIN) 300 mg ORAL TIDfurosemide 40 mg tab(s) (LASIX) [address] 20 mg tab(s) (PROTONIX) 20 mg ORAL BIDDULoxetine 60 mg cap(s) (CYMBALTA) 60 mg ORAL DAILYamitriptyline 25 mg tab(s) (ELAVIL) 25 mg ORAL AT BEDTIME0.9% NaCl 2-10 mL 2-10 mL INTRAVENOUS q 12 Hacetaminophen 650 mg tab(s) (TYLENOL) 650 mg ORAL q 6 H PRNketorolac 15 mg injection (TORADOL) 15 mg INTRAVENOUS q 6 H PRNCURRENT ALLERGIES: Allergies As of Date: 06/17/2017Allergen Noted ReactionAMOXICILLIN 06/17/2017 HivesCOUMADIN [WARFARIN SODIUM] 02/20/2012 Other: See CommentsFully Assessed 06/17/2017COMPLETE REVIEW OF SYSTEMS:GENERAL: No weight loss, malaise or feversNECK: Negative for lumps, goiter, pain and significant neck swellingRESPIRATORY: Negative for cough, hemoptysis, wheezing, COPD, dyspnea orshortness of breathCARDIOVASCULAR: Negative for chest pain, leg swelling, hypertension, CHFor palpitationsGI: See HPIMUSCULOSKELETAL: Negative for joint pain or swelling, back pain or musclepainSKIN: Negative for lesions, rash, and itchingAll other reviewed and negative other than HPI.OBJECTIVEPHYSICAL EXAM:Patient Vitals for the past 24 hrs: BP Temp Temp src Pulse Resp SpO2 Height Eeddxc86/27/17 0700 131/78 36.5 ?C (97.7 ?F) Oral 71 18 96 % - -06/18/17 0319 97/62 36.8 ?C (98.3 ?F) Oral 68 20 96 % - -06/18/17 0036 109/56 36.6 ?C (97.9 ?F) Oral 70 20 95 % - -06/17/171999 - - - - - - - 135.6 kg (298 lb 14.4 oz)06/17/17 1925 150/82 36.4 ?C (97.5 ?F) Oral 71 20 99 % - -06/17/17 1801 136/66 - - 74 20 96 % - -06/17/17 1444 116/67 37 ?C (98.6 ?F) Oral 85 18 98 % 170.2 cm (5' 7 )133.4 kg (294 lb)Body mass index is 46.81 kg/(m2).GENERAL: Alert, no distress, cooperative, Morbidly ObeseSKIN: Skin color, texture, turgor normal. No rashes or lesions.EYES: PERRLA, EOMINECK: No jugulovenous distention, SuppleLUNGS: Lungs clear to auscultation, Good diaphragmatic excursionCARDIAC: Normal S1 and S2; no rubs, murmurs, or gallopsABDOMEN: Positive findings: tenderness: moderate location: RUQEXTREMITIES: Extremities normal, no deformities, edema, clubbing or skindiscoloration. Good capillary refill., No ulcersDATA:Diagnostic tests reviewed for today's visit:Most recent labs and imaging results.CBC:Recent Labs WBC 6.45RBC 4.52HB 13.7HCT 42.1PLT 235MCV 93.1MCH 30.3MPV 10.0Coags: No results for input(s): INR, APTT in the last 24 hours.Invalid input(s): PTCMP:Recent Labs 505NA 140K 4.3CHLOR 106CO2 22*BUN 20CREAT 0.72GLUC 75TPROT 6.8CA 8.7TBILI 0.3ALKPHOS 51ALT 13AST 17ANION 12Liver Function, Amylase, Lipase:Recent Labs TPROT 6.8ALB 3.7ALT 13AST 17ALKPHOS 51TBILI 0.3LIPASE 27Renal Panel:Recent Labs CREAT 0.72BUN 20GLUC 75CA 8.7CHLOR 106K 4.3CO2 22*NA 140SIGNATURE: Yael Manning, REHABILITATION SUPERVISOR PATIENT NAME: Mary Grace NixDATE: June 18, 2017 : 11:41 AM PAGER: [phone] [facility] NURSING PROGon 06-18-2017 NURSING PROG HNO ID: [id number] thor: Edward (Rn) BEKAH Yanezervice: (none)Author Type: Registered NurseType: Nursing Progress NoteFiled: 06/18/2017 7:04 PMNote Text: Nursing Progress NotePatient Name: Mary Garce McnaironyMRN: [id number] Location: [place] [address]/[place] [address]*___ Daily Note:1530-This RN assumed care of this patient from LORENZO Perez. Pt assessmentcomplete. Pt AANDOX3. Pt denies CP,SOB,NANDV,numbness,tingli ng, HAMMER, ordizziness. Pt started on Miralax and Gatorade bowel prep, tolerating, hashad 1 BM since starting prep. Pt tolerating a full liquid diet. Pt statesshe is no longer having pain like she did before . Call light in reach.Pt provided a BSC educating on calling for help before getting oob, ptverbalizes understanding.1645-Pt daughter called, updated on POC with pt permission.1800-Pt tolerated full liquid diet. Pt has had second BM. Toleratingdrinking bowel prep.This note was completed by: Edward Yanez RN [facility] PROGRESSon 06-18-2017 PROGRESS HNO ID: [id number] thor: Emily Osuna: (none)Author Type: PhysicianType: Progress NotesFiled: 06/18/2017 10:34 AMNote Text:RAPID OBSERVATION UNITPROGRESS NOTEName: Mary Grace AnthonyMRN: [id number] DATE: 06/18/2017SERVICE TIME: 10:27 [facility]/Primary Attending: Emily Basilio MDASSESSMENT AND PLANPatient Active Hospital Problem List:1. Right flank pain3. Colon distention POA: Clinically UndeterminedDiscussed with GI-- Recheck xray today. If distension worsening, will needdecompressive colonoscopy today, if improved, will do prep and plan forcolonoscopy tomorrow.2. Abnormal urinalysis POA: YesAwait culture.FABIO ClarkUBJECTIVEINTERVAL HPI:Some improvement of symptoms, passing gas overnight. No BM sinceadmission, but did have one yesterday- family history of colon cancer. Last colonoscopy 3 years ago withseveral polyps removed.No fever, chillsNo cp or palpitationsNo events overnightMEDICATIONS: ReviewedOBJECTIVEPHYSICAL EXAM: BP 131/78 Pulse 71 Temp (Src) 97.7 (Oral) Resp 18 Ht 5' 7 (1.70m) Wt 298 lb 14.4 oz (135.6kg) SpO2 96% BMI 46.80kg/(m2).GENERAL: alert, no distress, cooperativeLUNGS: Lungs clear to auscultation. Good diaphragmatic excursion.CARDIAC: normal S1 and S2; no rubs, murmurs, or gallopsABDOMEN: Abdomen soft, mild RLQ tenderness, decreased, but present bsthroughout. No masses or organomegaly.EXTREMITIES: Extremities normal. No deformities, edema, clubbing or skindiscoloration., No ulcersNEURO: Reflexes normal and symmetric. Sensation grossly intact., Cranialnerves II-XII intactPULSES: 2+ radial, 2+ carotidDATA:Diagnostic tests reviewed for today's visit:Most recent labsVTE Prophylaxis: Pneumatic Compression DeviceDisposition: HomePlan of care discussed with: PatientSIGNATURE: Emily Basilio, MDDATE: June 18, 2017TIME: 10:27 AM [facility] XR ABD 2V SUPINE W UPR/DECUB /CTLon 06-18-2017 XR ABD 2V SUPINE W UPR/DECUB/CTL * * *Final Report* * *DATE OF EXAM: Jun 18 2017 11:19AM FVX 5356 - XR ABD 2V SUPINE W UPR/DECUB/CTL / REASON: Abdominal distention * * * * Physician Interpretation * * * * XR ABD 2V SUPINE W UPR/DECUB/CTLCLINICAL INDICATION: Abdominal distentionCOMPARISON: 06/17/2017RESULT:IVC filter to the right of L1-L3. Sutures in the upper abdomen No dilated bowel loops are seen. Moderate colonic stool burden. No dilated bowel loops seen.IMPRESSION:No dilated bowel loops seen. Moderate colonic stool burden.END OF IMPRESSIONTranscriptionist: ARMANDO Transcribe Date/Time: Jun 18 2017 11:34ADictated by : IVA MONTIEL MDThis examination was interpreted and the report reviewed and electronically signed by: IVA MONTIEL MD on Jun 18 2017 11:48AM [id number] Normal [facility] ALLIED HEALTHon 06-17-2017 ALLIED HEALTH HNO ID: [id number] thor: Janette Guerreroervice: (none)Author Type: (none)Type: Allied HealthFiled: 06/17/2017 3:43 PMNote Text: Radiology Service Progress NotePATIENT NAME: Mary Grace AnthonyMRN: [id number] OF SERVICE: June 17, 2017TIME: 3:43 PMPATIENT IDENTITY VERIFICATION COMPLETED USING TWO (2) METHODS: Patientconfirmed name verbally and ID band matches..PATIENT GENDER DATA: Female. status: : NoBreastfeeding status: NO.PATIENT RELEVANT IMPLANT DATA REVIEWED: Not ApplicableRADIOLOGY DEPARTMENT: CT; Exam(s) Completed: Abdomen/PelvisPERIPHERAL IV DATA: Not applicableSIGNED BY: Janette Arreguin 2016 3:43 PM Normal [facility] CBC and Differentialon 06-17 Abs Baso 0.03 k/uL Normal <0.11 [facility] Comment on above: Performed By: #### C BCDIF, CMP, LIPA ####[place] [id number] Abs Fajardo 0.49 k/uL Normal <0.87 [facility] Comment on above: Performed By: #### C BCDIF, CMP, LIPA ####[place] [id number] Abs Neut 4.64 k/uL Normal 1.45-7.50 [facility] Comment on above: Performed By: #### C BCDIF, CMP, LIPA ####[place] [id number] Basophils/100 WBC Auto (Bld) 0.5 % Normal [facility] Comment on above: Performed By: #### C BCDIF, CMP, LIPA ####[place] [id number] DTYPE Auto Diff Normal [facility] Comment on above: Performed By: #### C BCDIF, CMP, LIPA ####[place] [address] Eosinophils 0.10 10*3/uL Normal <0.46 [facility] Comment on above: Performed By: #### C BCDIF, CMP, LIPA ####[place] [address] Eosinophils/100 leukocytes 1.6 % Normal [facility] Comment on above: Performed By: #### C BCDIF, CMP, LIPA ####[place] [address] Erythrocyte distribution width Auto Ratio (RBC) 14.4 % Normal 11.5-15.0 [facility] Comment on above: Performed By: #### C BCDIF, CMP, LIPA ####[place] [address] Erythrocytes (RBC) 4.52 10*6/uL Normal 3.90-5.20 [facility] Comment on above: Performed By: #### C BCDIF, CMP, LIPA ####[place] [address] Hematocrit (HCT) 42.1 % Normal 36.0-46.0 [facility] Comment on above: Performed By: #### C BCDIF, CMP, LIPA ####[place] [address] Hemoglobin mass conc (Bld) 13.7 g/dL Normal 11.5-15.5 [facility] Comment on above: Performed By: #### C BCDIF, CMP, LIPA ####[place] [address] Lymphocytes 1.19 10*3/uL Normal 1.00-4.00 [facility] Comment on above: Performed By: #### C BCDIF, CMP, LIPA ####[place] [address] Lymphocytes/100 leukocytes 18.4 % Normal [facility] Comment on above: Performed By: #### C BCDIF, CMP, LIPA ####[place] [phone] MCH 30.3 pG Normal 26.0-34.0 [facility] Comment on above: Performed By: #### C BCDIF, CMP, LIPA ####[place] [phone] MCHC mass conc (RBC) 32.5 g/dL Normal 30.5-36.0 [facility] Comment on above: Performed By: #### C BCDIF, CMP, LIPA ####[place] [id number] MCV 93.1 fL Normal 80.0-100.0 [facility] Comment on above: Performed By: #### C BCDIF, CMP, LIPA ####[place] [id number] Monocytes/100 leukocytes 7.6 % Normal [facility] Comment on above: Performed By: #### C BCDIF, CMP, LIPA ####[place] [id number] Neutrophils/100 WBC Auto (Bld) 71.9 % Normal [facility] Comment on above: Performed By: #### C BCDIF, CMP, LIPA ####[place] [phone] Platelet mean volume (PMV) 10.0 fL Normal 9.0-12.7 [facility] Comment on above: Performed By: #### C BCDIF, CMP, LIPA ####[place] [phone] Platelets 235 10*3/uL Normal 150-400 [facility] Comment on above: Performed By: #### C BCDIF, CMP, LIPA ####[place] [phone] WBC (Leukocytes) 6.45 10*3/uL Normal 3.70-11.00 [facility] Comment on above: Performed By: #### C BCDIF, CMP, LIPA ####[facility] [place], [place] [phone] CT ABD/PEL WO IVCONon 2016 CT ABD/PEL WO IVCON * * *Final Report* * *DATE OF EXAM: Jun 17 2017 3:42PM FVC 0531 - CT ABD/PEL WO IVCON / REASON: Right flank pain * * * * Physician Interpretation * * * * EXAMINATION: CT ABDOMEN AND PELVIS WITHOUT IV CONTRASTCLINICAL HISTORY: Right flank painTECHNIQUE: Non-IV contrast imaging of the abdomen and pelvis was performed using standard technique, scanning from just above the dome of the diaphragm to the symphysis pubis. Unenhanced imaging is limited for the evaluation of some intra-abdominal and pelvic pathology.M: [id number]_3Contrast:IV: None; no oral contrastCT Radiation dose: Integrated Dose-length product (DLP) for this visit = 1437 mGy*cm.CT Dose Reduction Employed: Automated exposure control (AEC)COMPARISON: None.RESULT:Abdomen / Pelvis:Liver: Unremarkable.Biliary: CholecystectomySpleen: No splenomegaly.Pancreas: Unremarkable.Adrenals: No mass.Kidneys: 1 cm exophytic hypodense lesion in the upper pole of the left kidney. No calculus, hydronephrosis or other obvious abnormality.GI Tract: Distention of the ascending colon and cecum with air/fluid level, 8.6 cm in greatest AP diameter. No evidence of bowel obstruction.Previous gastric bypass surgery. Small hiatal hernia. Small umbilical hernia containing small bowel loops. Appendix not visualized. No diverticulosis.Lymph Nodes: No lymphadenopathy.Mesentery/pe ritoneum: No ascites.Retroperitoneum: No mass.Vasculature: No abdominal aortic or iliac artery aneurysm. Infrarenal inferior vena cava filter in place.Pelvis: No mass or ascites. The visualized moderately distended urinary bladder shows no significant abnormality. The uterus is absent due to previous surgery.Bones/Soft Tissues: No acute abnormality.Lower thorax: Unremarkable.IMPRESSION:No evidence of stone or obstruction in either collecting system.1 cm exophytic hypodense lesion in the upper pole of the left kidney. Further evaluation with ultrasound is recommended.Distended colon, particularly at the descending colon and cecum without evidence of bowel obstruction.Small hiatal hernia.Small umbilical hernia containing small bowel loop. NOTE: Small (Followup + Medical Reason): There is one or more incidental lesions in the liver, kidney or adrenal gland that require further imaging characterization or follow-up as discussed, because of the history of a primary tumor or systemic disease that could result in clinically relevant disease to these organs.Paper Folding Machine Operator: ARMANDO Transcribe Date/Time: Jun 17 2017 4:00PDictated by : VERONIQUE SHEPHERD MDThiaxel examination was interpreted and the report reviewed and electronically signed by: VERONIQUE SHEPHERD MD on Jun 17 2017 4:15PM [id number] Normal [facility] Comp Metabolic Panelon 06-17 Alanine aminotransferase (ALT) 13 U/L Normal 0-45 [facility] Comment on above: Performed By: #### C BCDIF, CMP, LIPA ####[place] [address] Albumin 3.7 g/dL Normal 3.5-5.0 [facility] Comment on above: Performed By: #### C BCDIF, CMP, LIPA ####[place] [address] Alkaline phosphatase (ALP) 51 U/L Normal 40-150 [facility] Comment on above: Performed By: #### C BCDIF, CMP, LIPA ####[place] [address] Anion gap 12 mmol/L Normal 9-18 [facility] Comment on above: Performed By: #### C BCDIF, CMP, LIPA ####[place] [address] Aspartate aminotransferase (AST) 17 U/L Normal 7-40 [facility] Comment on above: Performed By: #### C BCDIF, CMP, LIPA ####[place] [address] Bilirubin (total) 0.3 mg/dL Normal 0.0-1.5 [facility] Comment on above: Performed By: #### C BCDIF, CMP, LIPA ####[place] [id number] Calcium 8.7 mg/dL Normal 8.5-10.5 [facility] Comment on above: Performed By: #### C BCDIF, CMP, LIPA ####[address] Chloride 106 mmol/L Normal 98-110 [facility] Comment on above: Performed By: #### C BCDIF, CMP, LIPA ####[place] [address] CO2 22 mmol/L Low 23-32 [facility] Comment on above: Performed By: #### C BCDIF, CMP, LIPA ####[address] Creatinine 0.72 mg/dL Normal 0.70-1.40 [facility] Comment on above: Performed By: #### C BCDIF, CMP, LIPA ####[address] eGFR (non-black) mL/min/{1.73_m2} Normal >60 [facility] Comment on above: Performed By: #### C BCDIF, CMP, LIPA ####[address] Glucose mass conc 75 mg/dL Normal 65-100 [facility] Comment on above: Performed By: #### C BCDIF, CMP, LIPA ####[address] Potassium molar conc 4.3 mmol/L Normal 3.5-5.0 [facility] Comment on above: Performed By: #### C BCDIF, CMP, LIPA ####[place] [id number] Protein 6.8 g/dL Normal 6.0-8.4 [facility] Comment on above: Performed By: #### C BCDIF, CMP, LIPA ####[facility] [place], [place] [phone] Sodium 140 mmol/L Normal 132-148 [facility] Comment on above: Performed By: #### C BCDIF, CMP, LIPA ####[facility] [place], [place] [phone] Urea nitrogen 20 mg/dL Normal 8-25 [facility] Comment on above: Performed By: #### C BCDIF, CMP, LIPA ####[facility] [place], [place] [phone] ED NOTEon 06-17-2017 ED NOTE HNO ID: [id number] Author: Maggie (Rn) LORENZO Wallace Service: (none) Author Type: Registered Nurse Type: ED Notes Filed: 06/17/2017 2:43 PM Note Text: Bed: 18-ED Expected date: Expected time: Means of arrival: Comments: [id number] - [id number] Normal [facility] ED PROV NOTEon 06-17-2017 ED PROV NOTE HNO ID: [id number] thor: FABIO Duongervice: Emergency MedicineAuthor Type: PhysicianType: ED Provider NotesFiled: 06/17/2017 5:58 PMNote Text:ED Provider NotePatient Name: Mary Grace EnriquezRN: [id number] DATE: 06/17/17HistoryPatient presents with:Flank Pain: right side x 1 day, hx of kidney stones and UTISHPI Comments: 72 yo morbidly obese female w/ hx of cholecystectomy,gastric bypass, HTN, DM presents to ED with right sided back and flankpain ?2 days. Pain started last night while at rest; not caused by injuryor fall. Pain feels similar to prior kidney stones. Also has hx of UTIs,this presentation is more similar to prior stones.Pt denies dysuria, frequency or hematuria. She denies nausea, vomiting ordiarrhea. Last BM earlier today. Able to pass gas. No fevers or chills.No chest pain or shortness of breath. She states normal amount ofswelling in the legs, she takes Lasix as prescribed. Patient is in townvisiting her daughter for the holidays, PCP out of [place].History provided by: Patient and medical recordsPAST MEDICAL HISTORYDiagnosis Date- Acute cystitis- Anxiety state, unspecified- Arthropathy, unspecified, site unspecified- Chronic obstructive pulmonary disease (COPD) (HCC)- Chronic renal insufficiency- Depressive disorder, not elsewhere classified- DM (diabetes mellitus) (HCC) resolved after the gastric bypass in 2010- Fracture- HTN (hypertension) resolved after the gastric bypass in 2010- Mononeuritis of lower limb, unspecified- Morbid obesity (HCC) 02/20/2012- OA (osteoarthritis) of knee Bilaterally- Obesity- Other and unspecified postsurgical nonabsorption- PE (pulmonary embolism) 11/2010 s/p IVC filter. 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 surgery - onheparin injections since then BID- Personal history of unspecified urinary disorderPAST SURGICAL HISTORYProcedure Laterality Date- CARPAL TUNNEL RIGHT WRIST- CHOLECYSTECTOMY HX 89- COLONOSCOP W/ OR W/O BRSH SPEC 07/28/2015 Colonoscopy with mac- GASTRIC BYPASS HX 10/2010 bolivar-en-y- HYSTERECTOMY HX- STEREO LOC FOR CORE BRST BX RT 04-29-13- TONSILLECTOMY HX- TOTAL KNEE REPLACEMENT 03/04 10/03 Knee replacement, totalFAMILY HISTORYProblem Relation Age of Onset- Prostate Cancer Father- Hypertension Mother- Heart Mother- Diabetes Mother- Colon Cancer Father at 65Social HistorySocial History Main Topics- Smoking status: Never Smoker- Smokeless tobacco: Never Used- Alcohol use Yes Comment: Occasionally- Drug use: No- Sexual activity: Not AskedALLERGIESAllergen Reactions- Amoxicillin Hives- Coumadin [Warfarin * Other: See Comments PATIENT ALMOST 'BLEED OUT Review of SystemsConstitutional: Negative for chills, fever and unexpected weight change.HENT: Negative for congestion, rhinorrhea and sore throat.Respiratory: Negative for cough and shortness of breath.Cardiovascular: Negative for chest pain and palpitations.Gastrointestina l: Positive for abdominal pain. Negative for diarrhea,nausea and vomiting.Genitourinary: Positive for flank pain. Negative for dysuria, frequency,hematuria, vaginal bleeding and vaginal discharge.Musculoskeletal: Negative for arthralgias, back pain and gait problem.Skin: Negative for color change and rash.Neurological: Negative for dizziness, syncope, weakness andlight-headedness.Hematolo gical: Does not bruise/bleed easily.Psychiatric/Behaviora l: Negative for agitation and confusion. The patientis not nervous/anxious.Physical ExamBP 116/67 Pulse 85 Temp (Src) 98.6 (Oral) Resp 18 Ht 5' 7 (1.70m) Wt 294 lb (133.4kg) SpO2 98% BMI 46.04 kg/(m2).Physical ExamConstitutional: She is oriented to person, place, and time. She appearswell-developed and well-nourished. No distress.HENT:Head: Normocephalic and atraumatic.Mouth/Throat: Oropharynx is clear and moist.Eyes: EOM are normal. Pupils are equal, round, and reactive to light.Neck: Normal range of motion. Neck supple.Cardiovascular: Normal rate, regular rhythm and normal heart sounds.No murmur heard.Pulmonary/Chest: Effort normal and breath sounds normal. She has nowheezes.Abdominal: Soft. Bowel sounds are normal. She exhibits no distension.Limited exam due to body habitus. + Right-sided abdominal tenderness andright CVA tenderness. No guarding or rigidity. Bowel sounds present.Musculoskeletal: Normal range of motion.Lymphadenopathy: She has no cervical adenopathy.Neurological: She is alert and oriented to person, place, and time.Skin: Skin is warm and dry. No rash noted.Psychiatric: She has a normal mood and affect. Her behavior is normal.Nursing note and vitals reviewed.Diagnostic TestingED Labs Ordered and ReviewedCOMPREHENSIVE METABOLIC PANEL (AK,AV,EU,FV,HL,KAYLEIGH,MM,SP) - Abnormal;Notable for the following: Result Value Ref Range CO2 22 (*) 23 - 32 mmol/L All other components within normal limitsURINALYSIS WITH MICROSCOPIC (AK,AV,EU,FV,HL,KAYLEIGH,MM,SP) - Abnormal; Notablefor the following: Color Straw (*) Yellow Leukest Moderate (*) Negative WBC, Urine Many (*) Negative /HPF RBC, Urine 0-5 (*) Negative /HPF Bacteria Rare (*) Negative /HPF Epithelial Cells SEE COMMENT (*) Negative /HPF All other components within normal limitsLIPASE BLOOD (AK,AV,EU,FV,HL,KAYLEIGH,MM,SP)CBC + AUTO DIFF (AK,AV,EU,FV,HL,KAYELIGH,MM,SP)URI NE CULTURE (AK,AV,EU,FV,HL,KAYLEIGH,MM,SP)Pro ceduresMedical Decision Making / ED CourseED CourseCourse:Vital signs were reviewed.Triage records were reviewed.Medical records were reviewed.Nursing notes were reviewed and incorporated.Intravenous fluids were given.The following medications were administered: FentanylLabs reviewed and interpreted as:- lipase WNL- no electrolyte abnormalities- no leukocytosis or anemia- +UTI, culture pending.Radiographs were reviewed:CT ABD/PEL WO IVCON (Final result) Result time: 06/17/17 16:17:16? Final result by Interface, Results In (06/17/17 16:17:16)? Impression:? IMPRESSION:No evidence of stone or obstruction in either collecting system.1 cm exophytic hypodense lesion in the upper pole of the left kidney. ?Further evaluation with ultrasound is recommended.Distended colon, particularly at the descending colon and cecum withoutevidence of bowel obstruction.Small hiatal hernia.Small umbilical hernia containing small bowel loop.Medical Decision Makinyo female w/ hx of cholecystectomy, gastric bypass, HTN, DM presents toED with right flank pain started at rest last night. Pain radiates to theright side of the abdomen. Feels like prior kidney stones. No dysuria orfrequency.VSS. Morbidly obese female, NAD.+right flank and CVA TTP; no guarding or rigidity. Not peritonitic.Normal LFTs; normal renal function.No leukocytosis.Probable UTI; culture pending.CT abd/pelvis w/ distended ascending colon and cecum; no evidence ofstones in either collecting system. No evidence of bowel obstruction.Pt given small amount of fluids and Fentanyl for pain control.No symptoms c/w obstruction, having normal BMs, passing gas, no n/v.Plan to admit obs for UTI and serial abdominal exams. Pt and family awareand agreeable.5:44 PM -admit obs; discussed w/ Dr. Kiser.The attending who evaluated and managed this patient was Dr. Marquez.Plan:The patient was admitted to [facility]. Discussed w/ Dr. Kiser.Consent: A procedure or transfusion was performed - MADELYN Burr-CEncounter Diagnosis ICD-10-CM1. Acute cystitis without hematuria N30.002. Right flank pain R10.9PlanThe Patient was ADMITTED TO: Regular nursing floor.Condition at time of disposition: stableSIGNATURE: MADELYN Lugo-MADELYN Neumann (Pa)06/17/17 1744ATTENDING ATTESTATION NOTE:I have personally performed a face to face assessment of the patient andhave reviewed the PA/BEAM DYER OPERATOR note. My anderson findings include:History: C/o RLQ pain w/ rad to back, x 2 days, h/o stones, denies N/V/D,tried TylenolExam: AFVSS, NAD, abd s, BLQ and suprapubic ttp, BS hypoactive, noguard/reboundAssessment/Pl an: Labs, urine, CTErin Blanca Marquez MD06/17/17 1758 Normal [facility] HISTORY PHYSICALon HISTORY PHYSICAL HNO ID: [id number] thor: Lashell (Bulmaro) KoltonService: General Internal MedicineAuthor Type: Nurse PractitionerType: HANDPFiled: 06/17/2017 11:52 PMNote Text:HISTORY AND PHYSICAL EXAMINATIONSERVICE DATE: 06/17/2017SERVICE TIME: 1999[facility] GINA Ontiveros Chi COMPLAINT: Right flank pain radiating to right lower abdomenHPI: This is a 72 year old female with PMH gastric bypass surgery 2010,DVT, PE s/p IVC filter, hx massive bleeding on coumadin, recurrent UTI,who presents with right sided low back/flank pain that started thismorning upon awakening from bed. Pain was sharp. Radiates to right lowerabdomen. States she could not stand up straight when she initially got updue to pain and that her pain was worse after having a BM this AM. Statesshe had a normal BM today. Denies constipation, diarrhea, hematochezia,tarry stools. Passing flatus. Denies n/v.States she also had some pain with urination that started this afternoon.Denies frequency, urgency. Normally incontinent of urine. Admits tofrequent UTI's. Reports was treated for 3 UTI last month and that ciproand levaquin don't work for me. States she was referred to ID for concernof antibiotic resistance, but at the time of her appt, she wasasymptomatic, so ID told her to return if she develops sx.States last month she was seen in the hospital in [place] for similarright low back/abdominal pain and that time she had nausea/vomiting. Tellsme her testing was normal then.Admits to following outside on the concrete last Friday on [facility]. States she was not hurt, and got right back up.Also has chronic right hip pain 2/2 arthritis, but this pain now feelsdifferent than her usual hip pain.PAST MEDICAL HISTORYDiagnosis Date- Acute cystitis- Anxiety state, unspecified- Arthropathy, unspecified, site unspecified- Chronic obstructive pulmonary disease (COPD) (HCC)- Chronic renal insufficiency- Depressive disorder, not elsewhere classified- DM (diabetes mellitus) (HCC) resolved after the gastric bypass in 2010- Fracture- HTN (hypertension) resolved after the gastric bypass in 2010- Mononeuritis of lower limb, unspecified- Morbid obesity (HCC) 02/20/2012- OA (osteoarthritis) of knee Bilaterally- Obesity- Other and unspecified postsurgical nonabsorption- PE (pulmonary embolism) 11/2010 s/p IVC filter. 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 surgery - onheparin injections since then BID- Personal history of unspecified urinary disorderPAST SURGICAL HISTORYProcedure Laterality Date- CARPAL TUNNEL RIGHT WRIST- CHOLECYSTECTOMY HX 89- COLONOSCOP W/ OR W/O BRSH SPEC 07/28/2015 Colonoscopy with mac- GASTRIC BYPASS HX 10/2010 bolivar-en-y- HYSTERECTOMY HX- STEREO LOC FOR CORE BRST BX RT 04-29-13- TONSILLECTOMY HX- TOTAL KNEE REPLACEMENT 03/04 10/03 Knee replacement, totalFAMILY HISTORYProblem Relation Age of Onset- Prostate Cancer Father- Colon Cancer Father at 65- Hypertension Mother- Heart Mother- Diabetes MotherSocial HistorySubstance Use Topics- Smoking status: Never Smoker- Smokeless tobacco: Never Used- Alcohol use Yes Comment: OccasionallyPrescriptions Prior to Admission:Methenamine Hippurate (HIPREX) 1 gram tablet Take 1 g by mouth twice dailywith meals. Disp: Rfl: 06/17/2017 at 100ASCORBIC ACID (VITAMIN C ORAL) Take by mouth twice daily. Disp: Rfl:06/17/2017 at Unknown timeomeprazole (PRILOSEC) 20 mg capsule TAKE 1 CAPSULE BY MOUTH TWICE DAILY.Disp: 60 capsule Rfl: 10 06/17/2017 at 1000ACETAMINOPHEN (TYLENOL ARTHRITIS ORAL) 20 ml Every 4 hours as needed [place] Disp: Rfl: 06/17/2017 at 0700CALCIUM CARBONATE/VITAMIN D3 (VITAMIN D-3 ORAL) 1,000 mcg Once per day [place] Disp: Rfl: 06/17/2017 at 1000denosumab (PROLIA) 60 mg/mL syrg Inject 60 mg subcutaneously one timeonly. Every 6 months Disp: Rfl: Unknown at Unknown timeamitriptyline 25 mg tablet Take 25 mg by mouth daily at bedtime. Disp:Rfl: 06/16/2017 at 2100furosemide (LASIX) 40 mg tablet Take 40 mg by mouth once daily. Disp:Rfl: 06/17/2017 at 100DULoxetine 60 mg capsule Take 60 mg by mouth once daily. Disp: Rfl:06/17/2017 at 1000gabapentin (NEURONTIN) 300 mg capsule Take 300 mg by mouth three timesdaily. Disp: Rfl: 06/17/2017 at 1000ALLERGIESAllergen Reactions- Amoxicillin Hives- Coumadin [Warfarin * Other: See Comments PATIENT ALMOST 'BLEED OUT COMPLETE REVIEW OF SYSTEMS:GENERAL: denies weight loss, malaise or feversHEENT: denies headache, denies acute changes in vision or hearingNECK: denies neck pain, swelling, stiffness, lumpsRESPIRATORY: denies cough, hemoptysis, wheezing or shortness of breathCARDIOVASCULAR: denies chest pain, leg swelling or palpitationsGI: see HPIGU: +pain with urination x 1 day. +chronic urinary incontinence. Denieshematuria. Denies frequency, urgencyMUSCULOSKELETAL: +chronic right hip pain. Denies leg weaknessSKIN: Negative for lesions, rash, and itchingHEMATOLOGY/LYMPHOLOGY : denies prolonged bleeding, bruising easilyENDOCRINE: denies cold or heat intolerance, polyuria, polydipsiaNEURO:denies syncope, paralysis, seizures or tremors. +chronic numbnessfrom neuropathy b/l LEOBJECTIVEPHYSICAL EXAM:General appearance: no acute distress, well appearingSkin: color normal, warm, dry good turgorHead: no abnormalityEyes: PERRLA, IOMI, anictericOropharynx: mucosa moistNeck: supple, no adenopathy, no JVD, no carotid bruitsBack: symmetric, ROM normal, no CVA tendernessLungs: clearHeart: HRRR, no murmurs, gallops or rubsAbdomen: Abdomen soft, non-distended. +TTP RLQ, suprapubic area. Bowelsounds normal. No masses, organomegalyExtremities: +b/l LE edema 1+ L> R. Non-tender. Left leg slightlyreddened- pt states redness and swelling is chronic.Peripheral pulses: 2+ radial, 2+ pedalNeuro: Gait normal. Reflexes normal and symmetric. Sensation grosslyintact.Patient Vitals for the past 24 hrs: BP Temp Temp src Pulse Resp SpO2 Height Ngewyk27/26/17 1925 150/82 36.4 ?C (97.5 ?F) Oral 71 20 99 % - -06/17/17 1801 136/66 - - 74 20 96 % - -06/17/17 1444 116/67 37 ?C (98.6 ?F) Oral 85 18 98 % 170.2 cm (5' 7 )133.4 kg (294 lb)Body mass index is 46.05 kg/(m2).DATA:Diagnostic tests reviewed for today's visit:Most recent labs and imaging results.06/17/17 CT abd/pel WO IV CONIMPRESSION:No evidence of stone or obstruction in either collecting system.1 cm exophytic hypodense lesion in the upper pole of the left kidney. ?Further evaluation with ultrasound is recommended.Distended colon, particularly at the descending colon and cecum withoutevidence of bowel obstruction.Small hiatal hernia.Small umbilical hernia containing small bowel loop. NOTE: ?Small (Followup + Medical Reason): ? There is one or moreincidental lesions in the liver, kidney or adrenal gland that requirefurther imaging characterization or follow-up as discussed, because ofthe history of a primary tumor or systemic disease that could result inclinically relevant disease to these organs.ASSESSMENT/PLANPrinci pal Problem: Right flank pain POA: Yes Assessment AND Plan:Right flank pain radiating to RLQ x 1 dayWorse after BMR/o UTI (though UA with leukest but no nitrites. No leukocytosis. Nofever), vs musculoskeletal (recent fall), vs pain from colonic distention(noted on CT)PlanAdmit to observationFollow urine culture.Pt received 1 dose of rocephin in ED. Will hold off on further antbx fornow and await urine cultureGI consult for colonic distentionNPO after MN pending GI evaltoradol PRNActive Problems: Abnormal urinalysis POA: Yes Assessment AND Plan:Follow urine cultureHold off on antbx for now Colon distention POA: Clinically Undetermined Assessment AND Plan:Reports normal BM today, passing flatusGI consultSIGNATURE: Lashell Hi CNP PATIENT NAME: Mary Grace NixDATE: June 17, 2017 : 8:36 PM PAGER/CONTACT #: Normal [facility] Lipaseon 06-17-2017 Lipase 27 U/L Normal [facility] Comment on above: Performed By: #### C BCDIF, CMP, LIPA ####[facility] [place] [phone] NURSING PROGon 06-17-2017 NURSING PROG HNO ID: [id number] thor: Sasha (Rn) Rickey, RNService: (none)Author Type: Registered NurseType: Nursing Progress NoteFiled: 06/17/2017 9:55 PMNote Text: Nursing Progress NotePatient Name: Mary Grace EnriquezRN: [id number] Location: [place] [address] [address]*___ Daily Note:1899- Report received from Matilda HERNÁNDEZ.1999- Pt states she started to have right flank pain this morning ulubrg27 am. Active bowl sounds. Pt aANDox3. GI on consult.This note was completed by: Sasha Lang RN [facility] Urinalysis with Microscopico n 06-17-2017 Bilirubin, Urine Negative Normal Negative [facility] Comment on above: Performed By: #### U AWMIC ####[place] [address] Comments SEE COMMENT Normal [facility] Comment on above: Result Comment: Micr oscopic Examination Performed Performed By: #### U AWMIC ####[place] [address] Erythrocytes (RBC) 0-5 Critically abnormal Negative [facility] Comment on above: Performed By: #### U AWMIC ####[place] [address] Hemoglobin mass conc (Bld) Negative Normal Negative [facility] Comment on above: Performed By: #### U AWMIC ####[place] [address] Leukest Moderate Critically abnormal Negative [facility] Comment on above: Performed By: #### U AWMIC ####[place] [address] pH of blood 6.0 [pH] Normal 5.0-8.0 [facility] Comment on above: Performed By: #### U AWMIC ####[place] [address] Protein, Urine Negative Normal Negative [facility] Comment on above: Performed By: #### U AWMIC ####[place] [address] Specific [place], Ur 1.008 Normal 1.005-1.030 [facility] Comment on above: Performed By: #### U AWMIC ####[place] [address] Urine, bacteria in sediment Rare Critically abnormal Negative [facility] Comment on above: Performed By: #### U AWMIC ####[place] [address] Urine, clarity Clear Normal Clear [facility] Comment on above: Performed By: #### U AWMIC ####[place] [address] Urine, color Straw Critically abnormal Yellow [facility] Comment on above: Performed By: #### U AWMIC ####[place] [address] Urine, epithelial cells in sediment SEE COMMENT Critically abnormal Negative [facility] Comment on above: Result Comment: Rare Squamous Epithelial Cells Performed By: #### U AWMIC ####[place] [address] Urine, glucose presence Negative Normal Negative [facility] Comment on above: Performed By: #### U AWMIC ####[place] [address] Urine, ketones presence Negative Normal Negative [facility] Comment on above: Performed By: #### U AWMIC ####[place] [address] Urine, mucus presence in sediment Present Normal [facility] Comment on above: Performed By: #### U AWMIC ####[place] [address] Urine, nitrite presence Negative Normal Negative [facility] Comment on above: Performed By: #### U AWMIC ####[place] [address] Urine, urobilinogen <2.0 Normal <2.0 [facility] Comment on above: Performed By: #### U AWMIC ####[place] [address] WBC (Leukocytes) Many Critically abnormal Negative [facility] Comment on above: Performed By: #### U AWMIC ####[place] [address] Urine Cultureon 06-17-2017 Urine culture, bacteria Sp. Request/Comment: - Specimen received in preservative Culture Result - <10,000 CFU/ml Normal urogenital jhony Normal [facility] Comment on above: Performed By: #### C BCDIF, CMP, LIPA ####[facility] [place] [phone] Office Visit: UC: erlin patelatc h to Teena childers 12-19-2016 Documentation of current medications (procedure) Done Invalid Interpretation Code [facility] Work Phone: Fall risk assessment Yes Invalid Interpretation Code [facility] Work Phone: Tobacco use [facility] Unknown if ever smoked Invalid Interpretation Code [facility] Work Phone: SURGICAL PATHOLOGY, CONVERTE Don 01-17-2006 [facility] SURGICAL PATHOLOGY, CONVERTE Don 03-22-2005 [facility] Vital Signs Date Time Vital Sign Value Performing Clinician Cheryl oreilly 12-19-2016 16:20-0400 Body Temperature 98 [degF] Bogdan JOSHI [facility] Work Phone: 12-19-2016 16:20-0400 BP Diastolic 78 mm[Hg] Bogdan JOSHI [facility] Work Phone: 12-19-2016 16:20-0400 BP Systolic 130 mm[Hg] Bogdan JOSHI [facility] Work Phone: 12-19-2016 16:20-0400 Pulse (Heart Rate) 98 /min Bogdan JOSHI [facility] Work Phone: 12-19-2016 16:20-0400 Respiratory Rate 12 /min Bogdan JOSHI [facility] Work Phone: 12-19-2016 16:20-0400 Weight 133.36 kg Bogdan JOSHI [facility] Work Phone: Encounters Encounter Date Encounter Type Care Provider Facility Start: 09-04-2018 End: 09-04-2018 Emergency department patient visit UNKNOWN PROVIDER Facility:[facility] Start: 06-17-2017 End: 06-19-2017 Ambulatory ALETHA Dickinson KIS[facility] Start: 01-17-2006 Documentation procedure Brittany Mccloud MD Work Phone: [facility] Start: 01-17-2006 Historic EMR Kg Mccloud MD Work Phone: [facility] Start: 03-23-2005 Documentation procedure Kyler Li MD Work Phone: [facility] Start: 03-23-2005 Historic EMR Ciara suarez MD Work Phone: [facility] Procedures Date Procedure Procedure Detail Performing [...] Influenza vaccination [facility] Start: 06-23-2022 Advance Directive Discussion Advance Directive Discussion [facility] Start: 06-23-2022 Depression Assessment Depression Assessment [facility] Start: 09-04-2019 Hepatitis B surface antibody level LDL Cholesterol [facility] Start: 12-19-2016 End: 12-19-2016 Appointment Appointment [facility] Work Phone: Start: 09-02-2011 Pneumococcal Vaccine: 65+ (2 - PCV) Pneumococcal Vaccine: 65+ (2 - PCV) [facility] Start: 06-29-2011 Hemoglobin A1c/Hemoglobin.total in Blood HbA1C [facility] Start: 2011 Bone Density Screening Bone Density Screening [facility] Start: 1996 Shingrix Vaccine (1 of 2) Shingrix Vaccine (1 of 2) [facility] Start: 1965 Urine microalbumin profile DTaP,Tdap,Td Vaccine (1 - Tdap) [facility] Start: 1964 Hepatitis C Screening Hepatitis C Screening [facility] Start: 1956 3 comp foot exam completed Diabetic Foot Exam [facility] Start: 1956 Hepatitis B screening Urine Albumin:Creatinine Ratio [facility] Start: 1956 Hepatitis C antibody, confirmatory test Dilated Retinal Exam [facility] Start: 1945 Covid-19 Vaccine (#1) Covid-19 Vaccine (#1) [facility] Work Phone: Immunizations Immunization Date Immunization Notes Care Provider Anushka thomas 03-12-2012 influenza virus vacc ine, unspecified formulation Ciara Li MD Work Phone: [facility] Payers Date Payer Category Payer Unknown [id number] 1945 Unknown [id number] Social History Date Type Detail Facility Tobacco smoking stat [facility] Tobacco smoking consumption unknown [facility] Start: 01-19-2019 History of Social function [facility] Start: 01-19-2019 Tobacco use panel [facility] Start: 1945 Sex Assigned At Not on file C [facility] Medical Equipment Procedure Code Equipment Code Equipment Origin al Text Equipment Identifier Dates Cement Bone Simp luisana P W/ Tobramycin 1gm - [id number] Start: 03-10-2012 Cement Bone Simp luisana P W/ Tobramycin 1gm - [id number] Start: 09-01-2012 Comp Fem 5 Rt Kn Cr Victorino Trthln - [id number] Start: 03-10-2012 Ins Tib 5 13mm X 3 Cndyl Stab - [id number] Start: 03-10-2012 Ins Tib 5 11mm X 3 Cs Trthln - [id number] Start: 09-01-2012 Comp Pat 10mm 35 mm Asym Trthln - [id number] Start: 03-10-2012 Comp Pat 10mm 35 mm Asym Trthln - [id number] Start: 09-01-2012 Screw Bn 3.5mm 4 0mm Dcp Lc Dcp - [id number] Start: 09-01-2012 History of Past illness Narrative 06-17-2017 Note Date & Type Note Facility 06-17-2017 History of Past i llness Narrative Problem Noted Date Diagnosed Date Resolved Date Abnormal urinalysis 06/17/2017 06/19/20 17 Colon distention 06/17/2017 06/19/2017 Rectal bleeding 07/28/2015 07/28/2015 Family history of colon cancer 07/28/2015 07/28/2015 History of colon polyps 07/28/201510/2015 documented as of this encounter (statuses as of 03/13/2023) [facility] Summary Purpose Family History No Family History Records FoundNo Family History Records FoundNo Family History Records FoundNo Family History Records FoundNo Family History Records Found Advance Directives Documents on File Type Date Recorded Patient Cleaning Specialist Expl anation Advance Directive(s) 08/27/2012 8:21 PM Advance Directive(s) 08/27/2012 9:37 AM Procedure Findings Note HNO ID: [id number] Author: Ermelinda Dupont Service: Gastroenterology Surgery Author Type: Physician Type: Brief Op Note Filed: 11/06/2018 8:52 AM Note Text: BRIEF OPERATIVE / PROCEDURE NOTE LOG ID: [id number] SURGERY/PROCEDURE DATE: 11/06/2018 INCISION/PROCEDURE START TIME: 8:32 AM INCISION CLOSE/PROCEDURE END TIME: 8:41 AM SURGEON(S)/PROCEDURALIST(S) AND AUTOMATIC NAILING MACHINE FEEDER(S): Surgeon(s) and Role: * Bull Dupont - Primary No Additional Staff SURGERY/PROCEDURE(S): EGD with biopsy gastric pouch ANESTHESIA: Monitored Anesthesia Care FINDINGS: 3-4 cm hiatal hernia ESTIMATED BLOOD LOSS: 0 ml SPECIMENS: gastric pouch COMPLICATIONS: None PRE-OP/PRE-PROCEDURE DIAGNOSIS: GERD POST-OP/POST-PROCEDURE DIAGNOSIS: Gastroesophageal reflux disease, esophagitis presence not specified [K21.9] 3-4 cm hiatal hernia SIGNATURE: Bull Dupont MD, FACS, [facility] PATIENT NAME: Mary Grace Nix DATE: November 06, 2018 TIME: 8:51 AM PAGER/CONTACT #: Additional Source Comments INFORMATION SOURCE (unrecogn ized section and content) DATE CREATED AUTHOR 12/16/2017 [facility] DATE CREATED AUTHOR AUTHOR'S ORGANIZ ATION 11/19/2018 [facility] DATE CREATED AUTHOR AUTHOR'S ORGANIZ ATION 11/24/2018 [facility] DATE CREATED AUTHOR AUTHOR'S ORGANIZ ATION 09/07/2019 [facility] Ce héctor Ardon DATE CREATED AUTHOR AUTHOR'S ORGANIZ ATION 07/19/2021 [facility] [facility] Source Comments (unrecognize d section and content) In the event this informatio n is protected by the Federal Confidentiality of Alcohol and Drug Abuse Patient Records regulations: The Federal rules restrict any use of the information to criminally investigate or prosecute any alcohol or drug abuse patient.[facility] the event this information is protected by the Federal Confidentiality of Alcohol and Drug Abuse Patient Records regulations: The Federal rules restrict any use of the information to criminally investigate or prosecute any alcohol or drug abuse patient.[facility] Care Teams (unrecognized sec tion and content) Marketing Strategy Manager Relationship Specialty Start Date End Date Pcp, No, HUMAN RESOURCES OPERATIONS MANAGER PCP - General 01/25/10 08/20/10 Pcp, No, HUMAN RESOURCES OPERATIONS MANAGER PCP - General 09/11/10 04/22/11 Pcp, No, HUMAN RESOURCES OPERATIONS MANAGER PCP - General 05/03/11 06/24/11 Pcp, No, HUMAN RESOURCES OPERATIONS MANAGER PCP - General Family Medicine 07/27/15 07/27/15 Genna Mccarthy DO [address] [place] [id number] PCP - General 07/28/15 09/14/15 Jefferson Roman Chi [address] [place], [place] [id number] PCP - General Gerontology 09/15/15 Celeste Benedict MD [address] [place], [place] [id number] Primary Staff Physician Cardiology 09/21/14 6 FOR RECORDS PERTAINING TO PATIENTS WHO ARE [...] BE BASED ON THE PRIMARY CLINICAL RECORDS. [facility]. provides no warranty or guarantee of the accuracy or completeness of information in this document.
[2024-04-13 17:53] LABS: BNP,B-Type NATRIURETIC PEPTIDE 115.8 pg/mL (0-100)
[2024-04-13 18:10] LABS: ALB/GLOB Ratio 1.3 RATIO (0.9-2.4); AST(SGOT) 33 U/L (15-37); Alanine Aminotransfer ALT/SGPT 49 U/L (13-56); Albumin, Serum 3.4 g/dL (3.2-5.0); Alkaline Phosphatase 108 U/L (45-117); Anion Gap 4 (5-15); BUN 24 mg/dL (7-18); BUN/Creat Ratio 36.8 RATIO (10-20); Calcium,Total 8.2 mg/dL (8.5-10.1); Chloride 108 mmol/L (98-107); Creatinine, Serum 0.65 mg/dL (0.55-1.02); EST Glomerular Filtration Rate 93 mL/min (>60); Est Glom Filt Rate - Afr Amer 113 mL/min (>60); Globulin 2.6 g/dL (2.2-4.2); Glucose 87 mg/dL (74-106); Potassium 4.7 mmol/L (3.5-5.1); Sodium Level 138 mmol/L (136-145)
== END | disposition home or self-care (01) ==
LOC: MTLAB 16:17
PROVIDERS: PCP Family Medicine; Referring Provider Family Medicine; Visit Provider Family Medicine
DX: I50.9 Heart failure, unspecified (principal)
CPT/HCPCS: 36415; 80053; 83880; 84443

== ENCOUNTER → 2024-04-13 | Outpatient (REF) | payer MEDICARE, MEDICAID, SELFPAY ==
[2024-04-13 08:24] LABS: Hematocrit 31.7 % (37-47); Hemoglobin 9.7 g/dL (12.0-15.0); Mean Corp Hgb Conc 30.6 g/dL (32-36); Mean Corpuscular Hgb 32.6 pg (27.0-32.0); Mean Corpuscular Volume 106.4 fL (81-99); Mean Platelet Vol. 9.9 fl (6.2-12.0); Platelet Count 178 K/mm3 (150-450); RBC Distribution Width CV 12.6 % (11.6-14.6); RBC Distribution Width SD 49.5 fl (35.1-43.9); Red Blood Count 2.98 M/mm3 (4.2-5.4); White Blood Count 4.6 K/mm3 (4.4-11.0)
[2024-04-13 08:35] LABS: Vitamin B12 503 pg/mL (211-911)
== END ==
LOC: OLS.SWAL 05:00
PROVIDERS: PCP Family Medicine; Visit Provider Family Medicine
DX: I51.9 Heart disease, unspecified (principal); E55.9 Vitamin D deficiency, unspecified
CPT/HCPCS: 36415; 82306; 82607; 85027

== ENCOUNTER → 2024-04-14 | Outpatient (REF) | payer MEDICARE, MEDICAID, SELFPAY ==
[2024-04-15 09:04] LABS: Mucous, Urine 0 SEEN /hpf (<or=2+); Red Blood Cells-Urine 0 SEEN /hpf (0-5)
[2024-04-15 09:24] LABS: Color, Urine Yellow (Yellow); Glucose, Dipstick Normal (Normal); Ketone-Dipstick Negative (Negative); Leukocyte Esterase-Dipstick 25 /ul (Negative); Nitrite-Dipstick Positive (Negative); Occult Blood-Urine Negative /ul (Negative); Protein-Dipstick Negative (Negative); Specific Gravity, Urine 1.015 (1.002-1.030); Urine Bilirubin Dipstick Negative (Negative); Urine Clarity Sl. Cloudy (Clear); Urine Urobilinogen 1 mg/dl (Normal)
[2024-04-15 09:43] LABS: Bacteria 1+ /hpf (None Seen); Squamous Epithelial Cells - UA 0-5 SEEN /hpf (5-10); White Blood Cells 0-5 SEEN /hpf (0-5)
== END ==
LOC: OLS.SWAL 20:00
PROVIDERS: PCP Family Medicine
DX: N39.0 Urinary tract infection, site not specified (principal)
CPT/HCPCS: 81001; 87077; 87086; 87088; 87186

== ENCOUNTER 2024-05-06 07:54 | Day surgery (SDC) | payer MEDICARE, MEDICAID, SELFPAY ==
[2024-05-06] VITALS (9 sets, daily range): BP systolic 102–132; BP diastolic 43–109; PULSE 57–71; RESP 16–20; TEMP 36.3–36.5; O2SAT 94–98; BMI 47.7
--- NOTE | 2024-05-06 08:49 | PCM.HP.BLA ---
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: No Is patient in pain?: No Allergies ampicillin (From Unasyn) Allergy (Severe, Verified 03/26/24 14:55) Blisters on tongue /throat difficulty breathing sore tongue/warfarin sodium (From Coumadin) Allergy (Severe, Verified 03/26/24 14:55) Low red blood cells Medications ?Medication ?Instructions ?Recorded ?Confirmed ?Type cholecalciferol (vitamin D3) 25 1,000 unit PO DAILY vitamin 12/29/15 03/26/24 History mcg (1,000 unit) tablet (Vitamin D3) pravastatin 40 mg tablet 40 mg PO QHS cholesterol 08/05/18 03/26/24 History primidone 50 mg tablet 100 mg PO TID tremors 03/18/19 03/26/24 History simethicone 80 mg chewable tablet 80 mg PO TIDCM indigestion 03/18/19 03/26/24 History ascorbic acid (vitamin C) 500 mg 500 mg PO DAILY supplement 09/28/20 03/26/24 History tablet cyanocobalamin (vitamin B-12) 1,000 mcg IM QMONTH supplement 10/23/20 03/26/24 History 1,000 mcg/mL injection solution nystatin 100,000 unit/gram topical 1 applic topical Q8H PRN Skin 07/30/21 03/26/24 History powder Irritation apixaban 5 mg tablet (Eliquis) 5 mg PO BID blood thinner 09/30/21 03/26/24 History d-mannose 500 mg capsule 1,000 mg PO BID ssee md 12/05/21 03/26/24 History polyethylene glycol 3350 17 gram 17 g PO Q24H PRN Constipation 12/05/21 03/26/24 History oral powder packet (Miralax) ferrous sulfate 325 mg (65 mg 325 mg PO DAILY iron 03/19/23 03/26/24 History iron) tablet (Feosol) albuterol sulfate 2.5 mg/3 mL 2.5 mg inhalation Q2H PRN Dyspnea, 04/16/23 03/26/24 History (0.083 %) solution for nebulization wheezing omeprazole 40 mg capsule,delayed 40 mg PO DAILY GERD 04/16/23 03/26/24 History release ondansetron HCl 8 mg tablet 8 mg PO Q8H PRN Nausea 04/16/23 03/26/24 History oxybutynin chloride 5 mg 5 mg PO DAILY OVERACTIVE BLADDER 04/16/23 03/26/24 History tablet,extended release 24 hr phenazopyridine 200 mg tablet 200 mg PO Q8H PRN Bladder Spasms 04/16/23 03/26/24 History (Pyridium) acetaminophen 325 mg tablet 650 mg PO Q4H PRN pain/ elevated 07/31/23 03/26/24 History temp albuterol sulfate 90 mcg/actuation 2 puff inhalation Q4H PRN wheezing 07/31/23 03/26/24 History aerosol inhaler pregabalin 75 mg capsule (Lyrica) 75 mg PO QHS pain 09/30/23 03/26/24 History L.acidophil,salivari-Bifido 2 cap PO BID #0 caps 10/06/23 03/26/24 Rx bifidum-Strep thermoph 175 mg capsule furosemide 40 mg tablet 40 mg PO BIDLX #0 tabs 10/06/23 03/26/24 Rx potassium chloride 10 mEq 10 meq PO BIDCM #0 tabs 10/06/23 03/26/24 Rx tablet,extended release(part/cryst) vibegron 75 mg tablet (Gemtesa) 75 mg PO DAILY #0 tabs 10/06/23 03/26/24 Rx dextrose 40 % oral gel (Glucose 10 g PO Q15M PRN 10/15/23 03/26/24 History Gel) fluticasone propionate 50 2 spray intranasal DAILY PRN 10/15/23 03/26/24 History mcg/actuation nasal allergy symptoms spray,suspension (24 Hour Allergy Relief) glucagon HCl 1 mg solution for 1 mg subcut Q20M PRN 10/15/23 03/26/24 History injection (Glucagon (HCl) Emergency Kit) guaifenesin 100 mg/5 mL oral liquid 200 mg PO Q4H PRN 10/15/23 03/26/24 History mineral oil (Fleet Mineral Oil 118 ml [place] DAILY PRN 10/15/23 03/26/24 History enema) aluminum-mag hydroxide-simethicone 30 ml PO Q4H PRN dyspepsia 10/31/23 03/26/24 History 200 mg-200 mg-20 mg/5 mL oral susp halobetasol propionate 0.05 % 1 applic topical BID 10/31/23 03/26/24 History topical cream duloxetine 30 mg capsule,delayed 90 mg PO DAILY depression 11/20/23 03/26/24 History release magnesium hydroxide 400 mg/5 mL 30 ml PO QHS PRN 03/26/24 03/26/24 History oral suspension (Milk of Magnesia) oxycodone-acetaminophen 5 mg-325 1 tab PO Q8H PRN 03/26/24 03/26/24 History mg tablet Have you fallen in the past year?: No PFSH Medical History Obesity CHF (congestive heart failure) Primary osteoarthritis, left shoulder Left shoulder pain Urinary tract infection Normocytic anemia Hydronephrosis Wears hearing aid Wears dentures Hematoma Uses wheelchair Walker as ambulation aid Bladder disease Low iron Back pain Injury of head and neck Non-smoker Shortness of breath on exertion History of pain when walking History of edema Hx of peripheral neuropathy History of stress test Hiatal hernia Restless legs High cholesterol Chronic UTI GERD (gastroesophageal reflux disease) Depression Arthritis Kidney stones GI bleed Pulmonary embolism 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 Chronic neuropathic pain Anxiety and depression GERD (gastroesophageal reflux disease) HLD (hyperlipidemia) Cystitis Segmental and somatic dysfunction of cervical region Diabetic neuropathy associated with type 2 diabetes mellitus Chronic anticoagulation DM II (diabetes mellitus, type II), controlled Morbid obesity with BMI of 45.0-49.9, adult Chronic pain following surgery or procedure Segmental and somatic dysfunction of pelvic region Facet arthropathy, lumbar Segmental and somatic dysfunction of thoracic region Segmental and somatic dysfunction of lumbar region Closed left arm fracture Polycystic ovaries Osteoarthritis Neuropathy History of gallstones Diabetes Carpal tunnel syndrome Cataracts, both eyes History of DVT (deep vein thrombosis) Surgical History History of bilateral cataract extraction History of tonsillectomy Hx of cystoscopy Hx of cystoscopy History of cystoscopy S/P hysterectomy H/O cardiac catheterization (05/22/11) History of cholecystectomy History of embolic filter insertion History of carpal tunnel surgery History of hysterectomy Total knee replacement status History of gastric bypass Family History Father Colon cancer HypertensionMother Hypertension DiabetesGrandmother Hypertension Social History housing: assisted living facility Smoking Status: Never smoker alcohol intake: current alcohol intake frequency: holidays/special occasions only substance use type: does not use what type of physical activity do you participate in: walking and aerobics frequency: 1-2 times per week HPI HPI HPI: Patient is a 78-year-old female here for her surveillance colonoscopy. She had her last colonoscopy 5 years ago and a tubular adenoma was removed. She denies abdominal pain or blood in the stool. ROS General General: Yes weight change; No appetite, fatigue, colon cancer, breast cancer or weakness HEENT HEENT: No difficulty swallowing, eye injury, eye surgery, swollen glands or hoarseness Endo Endocrine: No thyroid disease, diabetes mellitus, thyroid cancer, Hair loss, heat intolerance or cold intolerance Skin Skin: No rash or changing moles Breast Breast: No left breast lump, right breast lump, nipple discharge, breast pain, abnormal mammogram, abnormal US or breast enlargement Musc Musculoskeletal: Yes back problems and arthritis; No rheumatoid arthritis, gout or joint pain Cardio Cardiovascular: No murmur, pacemaker, heart disease, atrial fibrillation, high blood pressure, heart attack, heart stent, palpitations, shortness of breat with exertion or chest pain Psych Psychiatric: No depression, anxiety or hearing voices Resp Respiratory: Yes shortness of breath, No sleep apnea, No cough, No COPD, No asthma, No emphysema and No wheezing Gastro Gastrointestinal: No abdominal pain, No nausea or vomiting, No diarrhea, Yes constipation, Yes blood in stool, Yes acid reflux, No hemorrhoids, Yes ulcers, No gallbladder problem and No black,tarry stools [place] Hematologic: Yes blood thinners, No blood disorders, No bleeding, No anemia and Yes blood clots Neuro Neurologic: No system reviewed and no additional complaints, except as documented, No as per HPI, No abnormal gait, No abnormal hearing, No abnormal movements, No abnormal speech, No behavioral changes, No burning sensations, No confusion, No convulsions, No disequilibrium, No dizziness, No localized weakness, No frequent falls, No headache(s), No lack of coordination, No loss of vision, No memory loss, Yes numbness, No other visual disturbances, No radicular pain, No restless legs, No sensory deficit, No syncope, Yes tingling, No tremor(s), No weakness and No other Exam Const General: cooperative Orientation: alert and oriented x3 HENMT Head: normal to inspection Neck Neck: normal visual inspection and full ROM Chest Chest palpation & inspection: normal inspection of the chest Resp Effort & Inspection: normal respiratory effort Auscultation: clear to auscultation bilaterally Cardio Rate: regular rate Rhythm: regular rhythm GI Inspection: non-distended Palpation: soft and nontender Skin General: no rashes or lesions noted Neuro General: patient alert and patient oriented x3 Extrem General: full ROM Psych Appearance: grossly normal Mental Status: mental status grossly normal Assessment and Plan Assessment and Plan (1) History of colon polyps: Status: Acute Plan: Patient has a history of colon polyps 5 years ago and requires endoscopy for evaluation and surveillance. I explained endoscopy in detail to the patient. I explained the risks including but not limited to stroke or heart attack with anesthesia, perforation of the GI tract, bleeding, infection. I explained that any of these could necessitate further emergency surgery. The patient understands and all questions were answered sufficiently. The patient wishes to proceed with procedure. Patient will hold her Eliquis for 2 days. Justin Angulo MD Pager: [facility] [address] [place] [address], [address] [place] [address] Office: I have examined the patient and the H&P has been reviewed. There are no clinical changes since date of exam.
--- NOTE | 2024-05-06 08:55 | PRE.ANES_ITS ---
ASA Classification* ASA Classification ASA Classification: 3 Assessment & Plan Anesthesia* Anesthesia Assessment Anesthesia Assessment: Discussed sedation and/or anesthesia options, risks, benefits, and alternatives with patient/parents/legal guardian/POA. Questions invited. The patient/parents/legal guardian/POA seems to understand and agrees to proceed with anesthesia plan. Reviewed the physical assessment, medical history, allergy history and patient home medications list prior to surgery/procedure/anesthetic and documented any changes. Performed airway and anesthesia risk assessments. Anesthesia Type Anesthesia Type: MAC Anesthesia Focused Assessment* Temperature: 97.5 F Pulse Rate: 57 Blood Pressure: 132/109 Respiratory Rate: 20 Pulse Ox: 98 Airway Assessment Mouth opens: >3 cm Mallampati Score: II Focused Labs Anesthesia Preop lab: CBC WBC 4.6 K/mm3 (4.4-11.0) 04/13/24 05:35 RBC 2.98 M/mm3 (4.2-5.4) L 04/13/24 05:35 Hgb 9.7 g/dL (12.0-15.0) L 04/13/24 05:35 Hct 31.7 % (37-47) L 04/13/24 05:35 Plt Count 178 K/mm3 (150-450) 04/13/24 05:35 CHEMISTRY Potassium 4.7 mmol/L (3.5-5.1) 04/13/24 16:22 Sodium 138 mmol/L (136-145) 04/13/24 16:22 Magnesium 2.4 mg/dL (1.6-2.6) 07/01/23 06:20 Phosphorus 2.4 mg/dL (2.5-4.9) L 06/25/23 07:02 BUN 24 mg/dL (7-18) H 04/13/24 16:22 Creatinine 0.65 mg/dL (0.55-1.02) 04/13/24 16:22 Glucose 87 mg/dL (74-106) 04/13/24 16:22 POC Glucose 169 mg/dL (70-110) H 08/11/21 18:21 TSH 1.890 uIU/mL (0.358-3.740) 04/13/24 16:22 COAG PT 14.5 SECONDS (11.7-14.9) 06/26/23 07:07 Pre-Assessment Diagnosis/Proposed Procedure Planned Operative Procedure(s): COLONSCOPY Anesthesia History Anesthesia History - medical office technologist: Anesthesia History - medical office technologist Hx Hospitalization No 05/04/24 14:25 Any Problems With Anesthesia No 05/04/24 14:25 Cholinesterase deficiency No 05/04/24 14:25 You/Your Family Experience No 05/04/24 14:25 fever (hyperthermia) with Relationship Recent Exposure to Contagious No 05/06/24 08:36 Disease Does patient have nerve No 05/04/24 14:25 stimulator Patient instructed to have device shut off --Does patient have Pacemaker No 05/06/24 08:36 or ICD? When Was Last Pacemaker Check QUESTION #4 FULL TEXT: You/Your Family Experience fever (hyperthermia) with Anesthesia Last Oral Intake Last Oral intake: Last Oral Intake NPO since 19:30 05/06/24 08:36 Meds taken in AM with sips of water? Meds patient instructed to take am of surgery PONV PONV - medical office technologist: PONV - medical office technologist Female Yes 05/04/24 14:25 HX of Motion Sickness No 05/04/24 14:25 HX of N/V After Surgery No 05/04/24 14:25 Non-Smoker Yes 05/04/24 14:25 Duration of Surgery greater No 05/04/24 14:25 than 60 minutes Number of Risk Factors 2 05/04/24 14:25 PONV Score Moderate Risk 05/04/24 14:25 Height & Weight Height & Weight: Anesthesia: Height & Weight Height 5 ft 5 in 05/06/24 08:36 Weight: 130 kg 05/06/24 08:36 Body Mass Index (BMI) 47.7 05/06/24 08:36 Respiratory Assessment Respiratory Assessment - medical office technologist: Respiratory Tract Infection Hx - medical office technologist Hx Respiratory Tract Infection No 05/04/24 14:25 STOP Sleep Apnea STOP Sleep Apnea - medical office technologist: STOP Sleep Apnea - medical office technologist Hx Hypertension No 05/04/24 14:25 Hx Sleep Apnea No 05/04/24 14:25 CPAP No 05/04/24 14:25 BIPAP No 05/04/24 14:25 Do you snore loudly (louder No 05/04/24 14:25 than talking or can be heard Do you often feel tired/ No 05/04/24 14:25 fatigued/ sleepy during daytime? Has anyone observed you stop No 05/04/24 14:25 breathing during sleep? STOP Results Negative 05/04/24 14:25 QUESTION #5 FULL TEXT : Do you snore loudly (louder than talking or can be heard through closed doors)? 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 Specify any problems Hx of Preganancy in last 3 No 05/04/24 14:25 Months Nurse Filling Out Transfusion [facility] 05/04/24 14:25 & Questions: Date: 05/04/24 05/04/24 14:25 Time: 14:27 05/04/24 14:25 Patient unable to answer at this time (ie. confused, unrespo /Reproduction History /Reproductive History - medical office technologist: /Reproductive Hx- medical office technologist Hx Now Gestational Age (in weeks): EDC: Hx Hx Para Hx Section SAB No 05/04/24 14:25 PFSH Medical History DVT (deep venous thrombosis) History of echocardiogram Cardiology follow-up encounter On home oxygen therapy Essential tremor Obesity CHF (congestive heart failure) Primary osteoarthritis, left shoulder Left shoulder pain Urinary tract infection Normocytic anemia Hydronephrosis Wears hearing aid Wears dentures Uses wheelchair Walker as ambulation aid Bladder disease Low iron Back pain Injury of head and neck Non-smoker Shortness of breath on exertion History of pain when walking History of edema Hx of peripheral neuropathy History of stress test Hiatal hernia Restless legs High cholesterol Chronic UTI GERD (gastroesophageal reflux disease) Arthritis GI bleed Pulmonary embolism Chronic neuropathic pain Anxiety and depression HLD (hyperlipidemia) Cystitis Segmental and somatic dysfunction of cervical region Diabetic neuropathy associated with type 2 diabetes mellitus Chronic anticoagulation Morbid obesity with BMI of 45.0-49.9, adult Chronic pain following surgery or procedure Segmental and somatic dysfunction of pelvic region Facet arthropathy, lumbar Segmental and somatic dysfunction of thoracic region Segmental and somatic dysfunction of lumbar region Closed left arm fracture Polycystic ovaries Osteoarthritis Neuropathy Diabetes Carpal tunnel syndrome Cataracts, both eyes History of DVT (deep vein thrombosis) Home Medications ?Medication ?Instructions ?Recorded ?Last Taken ?Type cholecalciferol (vitamin D3) 25 1,000 unit PO DAILY vitamin 12/29/15 05/05/24 History mcg (1,000 unit) tablet (Vitamin D3) pravastatin 40 mg tablet 40 mg PO QHS cholesterol 08/05/18 05/05/24 History primidone 50 mg tablet 100 mg PO TID tremors 03/18/19 05/05/24 History simethicone 80 mg chewable tablet 80 mg PO TIDCM indigestion 03/18/19 04/16/23 History ascorbic acid (vitamin C) 500 mg 500 mg PO DAILY supplement 09/28/20 05/05/24 History tablet cyanocobalamin (vitamin B-12) 1,000 mcg IM QMONTH supplement 10/23/20 05/05/24 History 1,000 mcg/mL injection solution nystatin 100,000 unit/gram topical 1 applic topical Q8H PRN Skin 07/30/21 Unknown History powder Irritation apixaban 5 mg tablet (Eliquis) 5 mg PO BID blood thinner 09/30/21 05/03/24 History d-mannose 500 mg capsule 1,000 mg PO BID ssee md 12/05/21 04/16/23 History ferrous sulfate 325 mg (65 mg 325 mg PO QHS iron 03/19/23 05/05/24 History iron) tablet (Feosol) omeprazole 40 mg capsule,delayed 40 mg PO DAILY GERD 04/16/23 05/06/24 History release ondansetron HCl 8 mg tablet 8 mg PO Q8H PRN Nausea 04/16/23 Unknown History oxybutynin chloride 5 mg 5 mg PO DAILY OVERACTIVE BLADDER 04/16/23 05/05/24 History tablet,extended release 24 hr phenazopyridine 200 mg tablet 200 mg PO Q8H PRN Bladder Spasms 04/16/23 Unknown History (Pyridium) acetaminophen 325 mg tablet 650 mg PO Q4H PRN pain/ elevated 07/31/23 Unknown History temp pregabalin 75 mg capsule (Lyrica) 75 mg PO QHS pain 09/30/23 05/05/24 History furosemide 40 mg tablet 40 mg PO BIDLX #0 tabs 10/06/23 05/05/24 Rx potassium chloride 10 mEq 10 meq PO BIDCM #0 tabs 10/06/23 05/05/24 Rx tablet,extended release(part/cryst) vibegron 75 mg tablet (Gemtesa) 75 mg PO DAILY #0 tabs 10/06/23 05/05/24 Rx dextrose 40 % oral gel (Glucose 10 g PO Q15M PRN hypoglycemia 10/15/23 05/05/24 History Gel) fluticasone propionate 50 2 spray intranasal DAILY PRN 10/15/23 Unknown History mcg/actuation nasal allergy symptoms spray,suspension (24 Hour Allergy Relief) glucagon HCl 1 mg solution for 1 mg subcut Q20M PRN hypoglycemia 10/15/23 Unk nown History injection (Glucagon (HCl) Emergency Kit) guaifenesin 100 mg/5 mL oral liquid 200 mg PO Q4H PRN cough 10/15/23 Unknown History mineral oil (Fleet Mineral Oil 118 ml [place] DAILY PRN constipation 10/15/23 Unknown History enema) halobetasol propionate 0.05 % 1 applic topical BID 10/31/23 05/05/24 History topical cream duloxetine 30 mg capsule,delayed 90 mg PO DAILY depression 11/20/23 05/05/24 History release magnesium hydroxide 400 mg/5 mL 30 ml PO QHS PRN constipation 03/26/24 Unknown History oral suspension (Milk of Magnesia) oxycodone-acetaminophen 5 mg-325 1 tab PO .Q12 PRN PRN pain 03/26/24 05/05/24 History mg tablet L.acidophil,salivari-Bifido 1 cap PO DAILY 04/07/24 05/05/24 History bifidum-Strep thermoph 175 mg capsule cephalexin 500 mg capsule 500 mg PO QHS 05/04/24 Unknown History empagliflozin 10 mg tablet 10 mg PO DAILY 05/04/24 Unknown History (Jardiance) nitrofurantoin 1 cap PO BID 05/04/24 05/05/24 History monohydrate/macrocrystals 100 mg capsule Allergy/AdvReac Type Severity Reaction Status Date / Time ampicillin (From Unasyn) Allergy Severe Blisters Verified 05/06/24 08:31 on tongue /throat difficulty breathing sore tongue/ warfarin sodium (From Allergy Severe Low red Verified 05/06/24 08:31 Coumadin) blood cells Family History Father Colon cancer Hypertension Mother Hypertension Diabetes Grandmother Hypertension Surgical History History of bilateral cataract extraction History of tonsillectomy Hx of cystoscopy Hx of cystoscopy History of cystoscopy S/P hysterectomy H/O cardiac catheterization (05/22/11) History of cholecystectomy History of embolic filter insertion History of carpal tunnel surgery History of hysterectomy Total knee replacement status History of gastric bypass Social History housing: assisted living facility Smoking Status: Never smoker alcohol intake: current alcohol intake frequency: holidays/special occasions only substance use type: does not use what type of physical activity do you participate in: walking and aerobics frequency: 1-2 times per week Review of Systems (Anesthesia) ROS Narrative System reviewed and no additional complaints, except as documented.
--- NOTE | 2024-05-06 09:00 | COLBX_PTH ---
PATIENT: ADAM NIX LOC: EN U#:[id number] AGE/SX: 79/F ROOM: RE05/06/[address]: Dr. Justin Angulo MD : 1945 BED: DIS: 05/06/2024 SPEC #: [id number] RECD: 05/06/24 11:18 STATUS: CORNELIUS ISAAC #: [id number] PILAR: 05/06/24 09:[address]: Justin Angulo DEPT: SURGICAL PATHOLOGY RECD BY: Latha Holloway ENTERED: 05/06/24 11:49 SP TYPE: COLON BX OTHR DR: Dr. Bobby Pinto MD Tissues: Transverse colon Procedures: Surgery Specimen Level IV HEADER OPERATION: Colonoscopy with polypectomy PRE-OP DIAGNOSIS: History of colon polyps TISSUE SUBMITTED: Transverse colon polyp MICROSCOPIC DIAGNOSIS Transverse colon polyp, polypectomy: Tubular adenoma. 05/07/2024 MICROSCOPIC DESCRIPTION Slides are reviewed. GROSS DESCRIPTION Received in fixative is one container labeled with the patient's name and designated Transverse colon polyp. The specimen consists of a marmolejo-pink polyp measuring 0.5 x 0.5 x 0.2 cm. The entire specimen is submitted in one cassette. 05/06/2024 TC:1 CPT:16323
[2024-05-06 09:17] LABS: Bedside Glucose 86 mg/dL (74-106)
--- NOTE | 2024-05-06 10:45 | OP.COLON_ITS ---
Patient Name: Mary Grace Anderson Procedure Date: 05/06/2024 8:55 AM Date of : 1945 Age: 79 Procedure: Colonoscopy Indications: High risk colon cancer surveillance: Personal history of colonic polyps Providers: Justin Angulo MD Referring MD: Gonzales Pinto Medicines: Propofol per Anesthesia Patient Profile: This is a 79 year old female. Refer to note in patient chart for documentation of history and physical. Last Colonoscopy: 5 years ago. Complications: No immediate complications. Estimated blood loss: Minimal. Procedure: Pre-Anesthesia Assessment: - Prior to the procedure, a History and Physical was performed, and patient medications and allergies were reviewed. The patient's tolerance of previous anesthesia was also reviewed. The risks and benefits of the procedure and the sedation options and risks were discussed with the patient. All questions were answered, and informed consent was obtained. Prior Anticoagulants: The patient has taken no anticoagulant or antiplatelet agents. After reviewing the risks and benefits, the patient was deemed in satisfactory condition to undergo the procedure. After I obtained informed consent, the scope was passed under direct vision. Throughout the procedure, the patient's blood pressure, pulse, and oxygen saturations were monitored continuously. The Colonoscope was introduced through the anus and advanced to the cecum, identified by appendiceal orifice and ileocecal valve. The colonoscopy was performed without difficulty. The patient tolerated the procedure well. The quality of the bowel preparation was good. The ileocecal valve, appendiceal orifice, and rectum were photographed. Scope In: 10:23:31 AM Scope Withdrawal Time 0 hours 5 minutes 51 seconds Scope Out: 10:41:57 AM Total Procedure Duration Time 0 hours 18 minutes 26 seconds Findings: A polyp was found in the transverse colon. The polyp was removed with a hot snare. Resection and retrieval were complete. The exam was otherwise without abnormality on direct and retroflexion views. Impression: - One polyp in the transverse colon, removed with a hot snare. Resected and retrieved. - The examination was otherwise normal on direct and retroflexion views. Recommendation: - Discharge patient to home. - Resume previous diet. - Continue present medications. - Await pathology results. - Repeat colonoscopy in 5 years for surveillance. Procedure Code(s): --- Professional --- 30344, Colonoscopy, flexible; with removal of tumor(s), polyp(s), or other lesion(s) by snare technique Diagnosis Code(s): --- Professional --- Z86.010, Personal history of colonic polyps D12.3, Benign neoplasm of transverse colon (hepatic flexure or splenic flexure) CPT copyright 2021 [employer]. All rights reserved. The codes documented in this report are preliminary and upon internal audit manager review may be revised to meet current compliance requirements. Justin Angulo MD 05/06/2024 10:44:41 AM This report has been signed electronically. Number of Addenda: 0 Note Initiated On: 05/06/2024 8:55 AM
--- NOTE | 2024-05-06 10:45 | OP.CCLET_ITS ---
05/06/2024 Gonzales Pinto [address] [place] [address] Re : Colonoscopy procedure for Mary Grace Anderson Dear Dr. Pinto This procedure was performed on April. My impressions and recommendations are as follows: Impressions : - One polyp in the transverse colon, removed with a hot snare. Resected and retrieved. - The examination was otherwise normal on direct and retroflexion views. Recommendations : - Discharge patient to home. - Resume previous diet. - Continue present medications. - Await pathology results. - Repeat colonoscopy in 5 years for surveillance. My findings are described in the full procedure note, which is enclosed. If I can be of further assistance, please feel free to contact me at Doctor phone number(s): , Work: . Sincerely, Justin Angulo MD 05/06/2024 10:44:41 AM This report has been signed electronically.
--- NOTE | 2024-05-06 10:50 | PCM.POST.ANE ---
Anesthesia: Postop Eval I Current Vital Signs Temperature: 97.7 F Pulse Rate: 67 Blood Pressure: 103/43 Respiratory Rate: 16 Pulse Ox: 95 Oxygen Delivery Method: Nasal Cannula Oxygen Flow Rate (L/min): 2 Assessment Airway patent: Yes Spontaneous unlabored respirations: Yes Mental status: Awake nausea: No Vomiting: No Anesthesia Complication: No Fluid Hydration Crystalloid volume administer (ml): 40 Total IV fluid infused: 40 Progress Note Anesthesia document: Postop Eval 1 completed: Yes
--- NOTE | 2024-05-06 16:47 | PCM.POSTANE2 ---
Anesthesia Postop Eval I Sum Postop Eval Completion status Anesthesia document: Postop Eval 1 completed: Yes Anesthesia Postop Eval I Summary Anesthesia Postop Eval I Summary: Anesthesia Postop Eval I: Assessment Summary Airway patent Yes 05/06/24 10:51 [email or web address] Spontaneous unlabored Yes 05/06/24 10:51 [email or web address] respirations Mental status Awake 05/06/24 10:51 [email or web address] nausea No 05/06/24 10:51 [email or web address] Vomiting No 05/06/24 10:51 [email or web address] Anesthesia Postop Eval I: Fluid Summary Crystalloid volume administer 40 05/06/24 10:51 [email or web address] (ml) Colloids volume administered ( ml) Blood Product volume administered (ml) Total IV fluid infused 40 05/06/24 10:51 [email or web address] Anesthesia Postop Eval I: Summary Notes Anesthesia Complication No 05/06/24 10:51 [email or web address] Anesthesia Complication Comment: Post-operative progress note Anesthesia: Postop Eval II Evaluation Mental status: Awake Pain Level: 0 nausea: No Vomiting: No
== END 2024-05-06 11:31 | disposition home or self-care (01) ==
LOC: EN 07:57 → AC 07:57
PROVIDERS: PCP Family Medicine; Referring Provider Family Medicine; Visit Provider Surgery
PROC: 0DJD8ZZ Inspection of Lower Intestinal Tract, Via Natural or Artificial Opening Endoscopic (ICD-10-PCS; CPT 45378; principal; 2024-05-06 08:55)
DX: Z12.11 Encounter for screening for malignant neoplasm of colon (principal); I50.9 Heart failure, unspecified; E11.42 Type 2 diabetes mellitus with diabetic polyneuropathy; E78.00 Pure hypercholesterolemia, unspecified; D12.3 Benign neoplasm of transverse colon; F32.A Depression, unspecified; G25.0 Essential tremor; Z79.01 Long term (current) use of anticoagulants; Z79.899 Other long term (current) drug therapy; Z80.0 Family history of malignant neoplasm of digestive organs; Z86.718 Personal history of other venous thrombosis and embolism
CPT/HCPCS: 45385; 82962; 88305; A4216; J2405

== ENCOUNTER 2024-05-08 21:46 | Emergency (ER) | payer MEDICARE, MEDICAID, SELFPAY ==
[2024-05-08 21:47] VITALS: BP 130/54; PULSE 74; RESP 15; TEMP 36.1; O2SAT 99; BMI 48.2
--- NOTE | 2024-05-08 22:16 | EKG12_ITS ---
Test Reason : CP Blood Pressure : */* mmHG Vent. Rate : 74 BPM Atrial Rate : 74 BPM P-R Int : 214 ms QRS Dur : 98 ms QT Int : 398 ms P-R-T Axes : 52 22 31 degrees QTcB Int : 441 ms Sinus rhythm with 1st degree A-V block Otherwise normal ECG Confirmed by SILVIA GUNTER, DALTON ([id number]), sports editor KARISHMA BRAGG ([id number]) on 05/10/2024 8:16:45 AM Referred By: RICK Confirmed By: DALTON VEGA MD
[2024-05-08 22:27] LABS: Absolute Lymphocyte Count 1.25 X10^3/uL (0.83-4.51); Absolute Neutrophil Count 2.4 X10^3/uL (2.0-7.7); Basophil# 0.05 X10^3/uL; Basophil% 1.2 % (0-1); Eosinophil# 0.11 X10^3/uL; Eosinophils% 2.6 % (0-5); Hematocrit 34.9 % (37-47); Lymphocyte # 1.25 X10^3/ul (0.83-4.51); Lymphocyte % 29.9 % (19-41); Mean Corp Hgb Conc 31.5 g/dL (32-36); Mean Corpuscular Hgb 32.2 pg (27.0-32.0); Mean Platelet Vol. 9.3 fl (6.2-12.0); Monocyte% 9.6 % (0-10); NRBC Flagged by Analyzer 0 % (0-5); Neutrophil # 2.35 X10^3/uL (2.7-7.7); Neutrophil % 56.2 % (47-70); Platelet Count 169 K/mm3 (150-450); RBC Distribution Width CV 12.7 % (11.6-14.6); RBC Distribution Width SD 47.7 fl (35.1-43.9); Red Blood Count 3.42 M/mm3 (4.2-5.4); White Blood Count 4.2 K/mm3 (4.4-11.0)
[2024-05-08 22:28] LABS: POSITIVE COUNT NO; POSITIVE DIFFERENTIAL NO; POSITIVE MORPHOLOGY NO
[2024-05-08 22:46] VITALS: PULSE 75; RESP 21
--- NOTE | 2024-05-08 22:50 | RAD_ITS ---
INDICATION: chest pain EXAMINATION/TECHNIQUE: X-RAY - XR Chest 2 Views COMPARISON: Prior study dated: 12/13/2023 FINDINGS: LINES/DEVICES: None. LUNGS: No consolidation. No pneumothorax. MEDIASTINUM: Aorta is atherosclerotic. CARDIAC SILHOUETTE: Not enlarged. BONES AND SOFT TISSUES: No acute abnormalities. RAD/Chest PA and Lateral IMPRESSION: No evidence of active intrathoracic disease. Electronically Signed: Nikki Arriaza MD at 23:25 EST ,
[2024-05-08 22:52] LABS: Anion Gap 3 (5-15); BUN 26 mg/dL (7-18); BUN/Creat Ratio 35.2 RATIO (10-20); Calcium,Total 8.6 mg/dL (8.5-10.1); Chloride 108 mmol/L (98-107); Creatinine, Serum 0.74 mg/dL (0.55-1.02); EST Glomerular Filtration Rate 81 mL/min (>60); Est Glom Filt Rate - Afr Amer 98 mL/min (>60); Estimated Creatinine Clearance 79.34 ml/min; Glucose 99 mg/dL (74-106); Magnesium 2.1 mg/dL (1.6-2.6); Potassium 4.8 mmol/L (3.5-5.1); Sodium Level 138 mmol/L (136-145); Troponin-I HS 11 pg/mL (3.0-54.0)
[2024-05-08] MEDS: Morphine 2 MG/ML Syringe IV (22:55)
[2024-05-08] MEDS: Ondansetron 4 MG/2 ML Vial IV (22:56)
[2024-05-08 23:00] VITALS: PULSE 74; RESP 14
[2024-05-09] VITALS: BP 100/57; PULSE 76; RESP 15
[2024-05-09] LABS: Bacteria 0 SEEN /hpf (None Seen); Mucous, Urine 0 SEEN /hpf (<or=2+); Red Blood Cells-Urine 0 SEEN /hpf (0-5); Squamous Epithelial Cells - UA 0 SEEN /hpf (5-10); White Blood Cells 0 SEEN /hpf (0-5)
[2024-05-09 00:02] LABS: Color, Urine Yellow (Yellow); Glucose, Dipstick 1000 mg/dl (Normal); Ketone-Dipstick Negative (Negative); Leukocyte Esterase-Dipstick Negative /ul (Negative); Nitrite-Dipstick Positive (Negative); Occult Blood-Urine Negative /ul (Negative); Protein-Dipstick Negative (Negative); Specific Gravity, Urine 1.015 (1.002-1.030); Urine Bilirubin Dipstick Negative (Negative); Urine Clarity Clear (Clear); Urine Urobilinogen 1 mg/dl (Normal)
[2024-05-09 01:00] VITALS: BP 94/66; PULSE 78; O2SAT 95
[2024-05-09 01:08] LABS: Troponin-I HS 10 pg/mL (3.0-54.0)
--- NOTE | 2024-05-09 01:50 | EX.ED.DYSGE1 ---
HPI History of Present Illness Chief Complaint: Chest Pain Informant: patient and EMS Narrative Narrative: Patient is a 79-year-old female with past medical history of hyperlipidemia congestive heart failure previous DVT and PE currently on Eliquis and status post Don filter. She is on chronic oxygen. She states she has had midsternal chest pain that is sharp in nature and is caused her to feel slightly more short of breath than normal. She states she has concern that she is having worsening of her congestive heart failure and therefore called EMS to bring her in for evaluation. [facility] Medical History DVT (deep venous thrombosis) History of echocardiogram Cardiology follow-up encounter On home oxygen therapy Essential tremor Obesity CHF (congestive heart failure) Primary osteoarthritis, left shoulder Left shoulder pain Urinary tract infection Normocytic anemia Hydronephrosis Wears hearing aid Wears dentures Uses wheelchair Walker as ambulation aid Bladder disease Low iron Back pain Injury of head and neck Non-smoker Shortness of breath on exertion History of pain when walking History of edema Hx of peripheral neuropathy History of stress test Hiatal hernia Restless legs High cholesterol Chronic UTI GERD (gastroesophageal reflux disease) Arthritis GI bleed Pulmonary embolism Chronic neuropathic pain Anxiety and depression HLD (hyperlipidemia) Cystitis Segmental and somatic dysfunction of cervical region Diabetic neuropathy associated with type 2 diabetes mellitus Chronic anticoagulation Morbid obesity with BMI of 45.0-49.9, adult Chronic pain following surgery or procedure Segmental and somatic dysfunction of pelvic region Facet arthropathy, lumbar Segmental and somatic dysfunction of thoracic region Segmental and somatic dysfunction of lumbar region Closed left arm fracture Polycystic ovaries Osteoarthritis Neuropathy Diabetes Carpal tunnel syndrome Cataracts, both eyes History of DVT (deep vein thrombosis) Home Medications ?Medication ?Instructions ?Recorded ?Last Taken ?Type cholecalciferol (vitamin D3) 25 1,000 unit PO DAILY vitamin 12/29/15 05/05/24 History mcg (1,000 unit) tablet (Vitamin D3) pravastatin 40 mg tablet 40 mg PO QHS cholesterol 08/05/18 05/05/24 History primidone 50 mg tablet 100 mg PO TID tremors 03/18/19 05/05/24 History simethicone 80 mg chewable tablet 80 mg PO TIDCM indigestion 03/18/19 04/16/23 History ascorbic acid (vitamin C) 500 mg 500 mg PO DAILY supplement 09/28/20 05/05/24 History tablet cyanocobalamin (vitamin B-12) 1,000 mcg IM QMONTH supplement 10/23/20 05/05/24 History 1,000 mcg/mL injection solution nystatin 100,000 unit/gram topical 1 applic topical Q8H PRN Skin 07/30/21 Unknown History powder Irritation apixaban 5 mg tablet (Eliquis) 5 mg PO BID blood thinner 09/30/21 05/03/24 History d-mannose 500 mg capsule 1,000 mg PO BID ssee 12/05/21 04/16/23 History ferrous sulfate 325 mg (65 mg 325 mg PO QHS iron 03/19/23 05/05/24 History iron) tablet (Feosol) omeprazole 40 mg capsule,delayed 40 mg PO DAILY GERD 04/16/23 05/06/24 History release ondansetron HCl 8 mg tablet 8 mg PO Q8H PRN Nausea 04/16/23 Unknown History oxybutynin chloride 5 mg 5 mg PO DAILY OVERACTIVE BLADDER 04/16/23 05/05/24 History tablet,extended release 24 hr phenazopyridine 200 mg tablet 200 mg PO Q8H PRN Bladder Spasms 04/16/23 Unknown History (Pyridium) acetaminophen 325 mg tablet 650 mg PO Q4H PRN pain/ elevated 07/31/23 Unknown History temp pregabalin 75 mg capsule (Lyrica) 75 mg PO QHS pain 09/30/23 05/05/24 History furosemide 40 mg tablet 40 mg PO BIDLX #0 tabs 10/06/23 05/05/24 Rx potassium chloride 10 mEq 10 meq PO BIDCM #0 tabs 10/06/23 05/05/24 Rx tablet,extended release(part/cryst) vibegron 75 mg tablet (Gemtesa) 75 mg PO DAILY #0 tabs 10/06/23 05/05/24 Rx dextrose 40 % oral gel (Glucose 10 g PO Q15M PRN hypoglycemia 10/15/23 05/05/24 History Gel) fluticasone propionate 50 2 spray intranasal DAILY PRN 10/15/23 Unknown History mcg/actuation nasal allergy symptoms spray,suspension (24 Hour Allergy Relief) glucagon HCl 1 mg solution for 1 mg subcut Q20M PRN hypoglycemia 10/15/23 Unknown History injection (Glucagon (HCl) Emergency Kit) guaifenesin 100 mg/5 mL oral liquid 200 mg PO Q4H PRN cough 10/15/23 Unknown History mineral oil (Fleet Mineral Oil 118 ml AL DAILY PRN constipation 10/15/23 Unknown History enema) halobetasol propionate 0.05 % 1 applic topical BID 10/31/23 05/05/24 History topical cream duloxetine 30 mg capsule,delayed 90 mg PO DAILY depression 11/20/23 05/05/24 History release magnesium hydroxide 400 mg/5 mL 30 ml PO QHS PRN constipation 03/26/24 Unknown History oral suspension (Milk of Magnesia) oxycodone-acetaminophen 5 mg-325 1 tab PO .Q12 PRN PRN pain 03/26/24 05/05/24 History mg tablet L.acidophil,salivari-Bifido 1 cap PO DAILY 04/07/24 05/05/24 History bifidum-Strep thermoph 175 mg capsule cephalexin 500 mg capsule 500 mg PO QHS 05/04/24 Unknown History empagliflozin 10 mg tablet 10 mg PO DAILY 05/04/24 Unknown History (Jardiance) nitrofurantoin 1 cap PO BID 05/04/24 05/05/24 History monohydrate/macrocrystals 100 mg capsule albuterol sulfate 2.5 mg/3 mL 2.5 mg inhalation Q2H PRN 05/08/24 Unknown History (0.083 %) solution for nebulization shortness of breath or wheezing albuterol sulfate 90 mcg/actuation 2 inh inhalation Q4H PRN shortness 05/08/24 Unknown History aerosol inhaler of breath or wheezing aluminum-mag hydroxide-simethicone 5 ml PO Q4H PRN GI bleeding 05/08/24 Unknown History 200 mg-200 mg-20 mg/5 mL oral susp prophylaxis (Advanced Antacid-Antigas) docusate sodium 100 mg capsule 100 mg PO DAILY 05/08/24 Unknown History (Col-Rite) Allergy/AdvReac Type Severity Reaction Status Date / Time ampicillin (From Unasyn) Allergy Severe Blisters Verified 05/08/24 21:54 on tongue /throat difficulty breathing sore tongue/ warfarin sodium (From Allergy Severe Low red Verified 05/08/24 21:54 Coumadin) blood cells Family History Father Colon cancer Hypertension Mother Hypertension Diabetes Grandmother Hypertension Surgical History History of bilateral cataract extraction History of tonsillectomy Hx of cystoscopy Hx of cystoscopy History of cystoscopy S/P hysterectomy H/O cardiac catheterization (05/22/11) History of cholecystectomy History of embolic filter insertion History of carpal tunnel surgery History of hysterectomy Total knee replacement status History of gastric bypass Social History housing: assisted living facility Smoking Status: Never smoker alcohol intake: current alcohol intake frequency: holidays/special occasions only substance use type: does not use what type of physical activity do you participate in: walking and aerobics frequency: 1-2 times per week ROS ROS ED Constitutional Constitutional ED: Denies chills or fever(s) Eyes Eyes: Denies blurry vision or change in vision ENT ENT ED: Denies rhinorrhea or sore throat Cardiovascular Cardiovascular: Reports chest pain; Denies palpitations or racing heartbeat Respiratory/Chest Respiratory/Chest: Reports dyspnea; Denies cough Gastrointestinal Gastrointestinal: Denies abdominal pain, diarrhea, nausea or vomiting Genitourinary Genitourinary ED: Denies dysuria Musculoskeletal Musculoskeletal: Denies myalgias Integumentary Denies rash Neurologic Neurologic: Denies headache(s) Psychiatric Psychiatric: Reports anxiety and depression Hematologic/Lymphatic Hematologic/Lymphatic: Reports easy bleeding and easy bruising Allergic/Immunologic Allergic/Immunologic ED: Denies mouth swelling or tongue swelling EXAM Physical Exam Const Vital Signs: 05/09/24 01:00 05/09/24 02:00 05/09/24 03:14 Temperature 97.5 F L Pulse Rate 78 79 79 Respiratory Rate 16 16 Blood Pressure 94/66 103/69 103/69 Blood Pressure Mean 75 80 80 Pulse Ox 95 97 97 Oxygen Delivery Method Nasal Cannula Oxygen Flow Rate (L/min) 2 Positive well nourished, well developed and obese General Appearance ED: well developed Nutritional Appearance: obese HEENT HEENT Narrative: Normocephalic atraumatic No tongue or lip swelling no oral lesions no airway edema or compromise No signs of infection noted in the posterior pharynx Eyes PERRL and EOMs intact bilaterally General Eye ED: Negative for scleral icterus Neck supple and no JVD Neck Narrative: No nuchal rigidity or meningeal signs noted Chest Wall Chest Narrative: There is reproducible midsternal pain with palpation that the patient states is the same pain she has been experiencing. No obvious bony deformity or crepitance noted. No overlying soft tissue changes to suggest trauma or infection Resp normal respiratory effort Resp Narrative: Breath sounds are diminished throughout but overall clear to auscultation without crackles noted No signs of respiratory distress such as nasal flaring retractions tachypnea or accessory muscle use Cardio regular rate and regular rhythm Rate: other Other Details: Heart is regular rate and rhythm Radial and carotid pulses are equal and symmetric GI non-tender, non-distended and no masses GI Narrative: Abdomen is soft nontender and nondistended with hypoactive bowel sounds. no voluntary guarding or rigidity or pulsatile mass Auscultation: hypoactive bowel sounds Palpation: soft Extremity Extremity Narrative: Trace to +1 pitting edema to the bilateral lower extremities that is equal and symmetric Negative Homans' sign Neuro oriented x3, CN's II-XII intact bilaterally and no sensory deficits noted Sensorium / Orientation: alert Psych mental status grossly normal Skin no rashes or lesions noted General Skin Exam: Negative for jaundice MDM MDM MDM Narrative Medical decision making narrative: Patient arrived to the ER with stable vitals. She reported midsternal chest pain without trauma and mild shortness of breath. She does have moderate risk factors for coronary artery disease but differential diagnosis is CAD versus cardiac dysrhythmia versus pneumonia versus pneumothorax versus pleural effusion I did elect to perform a basic cardiac workup. The patient also states that she has had a UTI and has been on antibiotics but she is unsure if it has helped resolve her symptoms so urine sample was added. The patient's initial troponin was 11 and the 2-hour delta was 10 going against acute coronary syndrome. The patient was kept on the intelligence intern and there is no cardiac dysrhythmia. Chest x-ray revealed no pneumonia or pneumothorax or pleural effusion. She was not requiring oxygen above her baseline. The pain was reproducible in nature indicating this is most likely musculoskeletal and there is no overlying soft tissue changes to suggest cellulitis or abscess. Therefore at this time with stable vitals and a negative workup I do not feel there is need for admission and patient is otherwise safe for discharge and can follow-up as an outpatient. She was informed that her urine sample shows no bacteria at this time indicating her outpatient antibiotics are working and without signs of acute kidney injury or urosepsis or failure of outpatient therapy there is still no need for admission History & Record Review Discussion w/independent historian: Patient Lab Data Attestation: I reviewed the patient's lab results. Labs: Laboratory Results - last 24 hr 05/08/24 05/09/24 23:52 00:46 Troponin I High Sens 10 Urine Color Yellow Urine Clarity Clear Urine pH 6.0 Ur Specific [place] 1.015 Urine Protein Negative Urine Glucose (UA) 1000 H Urine Ketones Negative Urine Occult Blood Negative Urine Nitrite Positive H Urine Bilirubin Negative Urine Urobilinogen 1 H Ur Leukocyte Esterase Negative Urine RBC 0 SEEN Urine WBC 0 SEEN Ur Squamous Epith Cells 0 SEEN Urine Bacteria 0 SEEN Urine Mucus 0 SEEN Radiography Diagnostic Testing: Clinical Impression(s) from Imaging Studies Chest X-Ray 05/08/24 22:50 IMPRESSION: No evidence of active intrathoracic disease. Electronically Signed: Nikki Arriaza MD at 23:25 EST Reading Location ID and State: [facility] - [place] / [place] Tel , Service support , Chest x-ray as interpreted by the emergency medicine physician reveals no acute infiltrate pneumothorax or pleural effusion Discharge Plan Triage Chief Complaint: Chest Pain ED Provider: Walter Nance Dx/Rx/DC Orders Clinical Impression: Nonspecific chest pain, CHF (congestive heart failure), HLD (hyperlipidemia) Instructions: ED Chest Pain, Uncertain Cause, ED Chest Wall Pain, Costochondritis Prescriptions: No Action acetaminophen 325 mg tablet 650 mg PO Q4H PRN (Reason: pain/ elevated temp ) duloxetine 30 mg capsule,delayed release(DR/EC) 90 mg PO DAILY dextrose [Glucose Gel] 40 % gel 10 g PO Q15M PRN (Reason: hypoglycemia) Rx Instructions: until symptoms of low blood sugar are controlled guaifenesin 100 mg/5 mL liquid 200 mg PO Q4H PRN (Reason: cough) glucagon HCl [Glucagon (HCl) Emergency Kit] 1 mg recon soln 1 mg subcut Q20M PRN (Reason: hypoglycemia) Rx Instructions: until target blood sugar attained mineral oil [Fleet Mineral Oil] Enema 118 ml AL DAILY PRN (Reason: constipation) Rx Instructions: discard any unused portion oxycodone-acetaminophen 5-325 mg tablet 1 tab PO .Q12 PRN PRN (Reason: pain) magnesium hydroxide [Milk of Magnesia] 400 mg/5 mL suspension 30 ml PO QHS PRN (Reason: constipation) cholecalciferol (vitamin D3) [Vitamin D3] 1,000 UNIT tablet 1,000 unit PO DAILY pravastatin 40 MG tablet 40 mg PO QHS primidone 50 MG tablet 100 mg PO TID simethicone 80 MG tablet 80 mg PO TIDCM ascorbic acid (vitamin C) 500 MG tablet 500 mg PO DAILY cyanocobalamin (vitamin B-12) 1,000 mcg/mL Solution 1,000 mcg IM QMONTH Rx Instructions: states is due the 4th of each month nystatin 100,000 unit/gram Powder 1 applic TOPICAL Q8H PRN (Reason: Skin Irritation) Eliquis 5 mg Tablet 5 mg PO BID halobetasol propionate 0.05 % cream 1 applic TOPICAL BID d-mannose 500 mg Capsule 1,000 mg PO BID omeprazole 40 mg capsule,delayed release(DR/EC) 40 mg PO DAILY oxybutynin chloride 5 mg tablet extended release 24hr 5 mg PO DAILY ondansetron HCl 8 MG tablet 8 mg PO Q8H PRN (Reason: Nausea) phenazopyridine [Pyridium] 200 MG tablet 200 mg PO Q8H PRN (Reason: Bladder Spasms) ferrous sulfate [Feosol] 325 mg (65 mg iron) tablet 325 mg PO QHS pregabalin [Lyrica] 75 mg capsule 75 mg PO QHS furosemide 40 mg Tablet 40 mg PO BIDLX Qty: 0 0RF potassium chloride 10 mEq Tablet,Er Particles/Crystals 10 meq PO BIDCM Qty: 0 0RF Gemtesa 75 mg Tablet 75 mg PO DAILY Qty: 0 0RF fluticasone propionate [24 Hour Allergy Relief] 50 mcg/actuation spray,suspension 2 spray intranasal DAILY PRN (Reason: allergy symptoms) Rx Instructions: administer into each nostril L.acidoph,saliva-B.bif-S.therm 175 mg Capsule 1 cap PO DAILY albuterol sulfate 90 mcg/actuation HFA aerosol inhaler 2 inh inhalation Q4H PRN (Reason: shortness of breath or wheezing) albuterol sulfate 2.5 mg /3 mL (0.083 %) solution for nebulization 2.5 mg inhalation Q2H PRN (Reason: shortness of breath or wheezing) alum-mag hydroxide-simeth [Advanced Antacid-Antigas] 200-200-20 mg/5 mL suspension 5 ml PO Q4H PRN (Reason: GI bleeding prophylaxis) docusate sodium [Col-Rite] 100 mg capsule 100 mg PO DAILY nitrofurantoin monohyd/m-cryst 100 mg capsule 1 cap PO BID cephalexin 500 mg capsule 500 mg PO QHS Jardiance 10 mg tablet 10 mg PO DAILY Primary Care Provider: Bobby Pinto Referrals: Bobby Pinto MD [Primary Care Provider] - Activity Restrictions/Additional Instructions: Your workup today did not show signs of heart attack or congestive heart failure. Please continue all of your home medications as previously directed and return to the ER should you have any further concerns Print Language: Bengali Disposition Disposition: Home, Self Care Discharge Date/Time: 05/09/24 03:17
[2024-05-09 02:00] VITALS: BP 103/69; PULSE 79; RESP 16; O2SAT 97
[2024-05-09] MEDS: oxyCODONE 5 MG Tablet 10 MG PO (02:15)
[2024-05-09 03:14] VITALS: BP 103/69; PULSE 79; RESP 16; TEMP 36.4; O2SAT 97
== END 2024-05-09 03:17 | disposition home or self-care (01) ==
PROVIDERS: Emergency Provider Emergency Medicine; PCP Family Medicine; Visit Provider Emergency Medicine
DX: R07.9 Chest pain, unspecified (principal); I50.9 Heart failure, unspecified; E11.42 Type 2 diabetes mellitus with diabetic polyneuropathy; E78.00 Pure hypercholesterolemia, unspecified; E78.5 Hyperlipidemia, unspecified; Z86.718 Personal history of other venous thrombosis and embolism; Z90.49 Acquired absence of other specified parts of digestive tract; Z90.710 Acquired absence of both cervix and uterus; Z79.01 Long term (current) use of anticoagulants; Z86.711 Personal history of pulmonary embolism; Z99.81 Dependence on supplemental oxygen
CPT/HCPCS: 71046; 80048; 81001; 83735; 83880; 84484; 85025; 93005; 96374; 96375; 99285; A4216; J2405

== ENCOUNTER → 2024-05-26 | Outpatient (REF) | payer MEDICARE, MEDICAID, SELFPAY ==
[2024-05-27 08:02] LABS: Bacteria 0 SEEN /hpf (None Seen); Mucous, Urine 0 SEEN /hpf (<or=2+); Red Blood Cells-Urine 0 SEEN /hpf (0-5); White Blood Cells 0 SEEN /hpf (0-5)
[2024-05-27 08:17] LABS: Color, Urine Amber (Yellow); Glucose, Dipstick 1000 mg/dl (Normal); Ketone-Dipstick Negative (Negative); Leukocyte Esterase-Dipstick Negative /ul (Negative); Nitrite-Dipstick Positive (Negative); Occult Blood-Urine Negative /ul (Negative); Protein-Dipstick 15 mg/dl (Negative); Specific Gravity, Urine 1.015 (1.002-1.030); Urine Bilirubin Dipstick 3 mg/dL (Negative); Urine Clarity Clear (Clear); Urine Urobilinogen 4 mg/dl (Normal)
[2024-05-27 08:23] LABS: Calcium Oxalate Crystals Ur 1+ /hpf (<or=2+); Squamous Epithelial Cells - UA 0-5 SEEN /hpf (5-10)
== END ==
LOC: OLS.SWAL 21:00
PROVIDERS: PCP Family Medicine; Visit Provider Internal Medicine Infectious Disease
DX: N39.0 Urinary tract infection, site not specified (principal)
CPT/HCPCS: 81001; 87077; 87086; 87088

== ENCOUNTER → 2024-06-20 14:15 | Outpatient (REF) | payer MEDICARE, MEDICAID, SELFPAY ==
[2024-06-21 08:45] LABS: Bacteria 0 SEEN /hpf (None Seen); Mucous, Urine 0 SEEN /hpf (<or=2+); Red Blood Cells-Urine 0 SEEN /hpf (0-5)
[2024-06-21 09:47] LABS: Glucose, Dipstick 250 mg/dl (Normal); Ketone-Dipstick Negative (Negative); Leukocyte Esterase-Dipstick 100 /ul (Negative); Nitrite-Dipstick Positive (Negative); Occult Blood-Urine Negative /ul (Negative); Protein-Dipstick 15 mg/dl (Negative); Specific Gravity, Urine 1.015 (1.002-1.030); Urine Clarity Sl. Cloudy (Clear); Urine Urobilinogen 4 mg/dl (Normal)
[2024-06-21 09:49] LABS: Color, Urine SEE COMMENT BELOW (Yellow); Urine Bilirubin Dipstick 3 mg/dL (Negative)
[2024-06-21 10:16] LABS: Calcium Oxalate Crystals Ur 1+ /hpf (<or=2+); Squamous Epithelial Cells - UA 0-5 SEEN /hpf (5-10); White Blood Cells 10-25 SEEN /hpf (0-5)
== END ==
LOC: OLS.SWAL 14:15
PROVIDERS: PCP Family Medicine
DX: N39.0 Urinary tract infection, site not specified (principal)
CPT/HCPCS: 81001; 87086

== ENCOUNTER → 2024-06-27 17:30 | Outpatient (REF) | payer MEDICARE, MEDICAID, SELFPAY ==
[2024-06-28 08:56] LABS: Bacteria 0 SEEN /hpf (None Seen); Mucous, Urine 0 SEEN /hpf (<or=2+); Red Blood Cells-Urine 0 SEEN /hpf (0-5)
[2024-06-28 09:15] LABS: Color, Urine Yellow (Yellow); Glucose, Dipstick 1000 mg/dl (Normal); Ketone-Dipstick Negative (Negative); Leukocyte Esterase-Dipstick 25 /ul (Negative); Nitrite-Dipstick Positive (Negative); Occult Blood-Urine Negative /ul (Negative); Protein-Dipstick Negative (Negative); Specific Gravity, Urine 1.015 (1.002-1.030); Urine Clarity Clear (Clear); Urine Urobilinogen 4 mg/dl (Normal)
[2024-06-28 09:17] LABS: Urine Bilirubin Dipstick 1 mg/dL (Negative)
[2024-06-28 09:29] LABS: Calcium Oxalate Crystals Ur 3+ /hpf (<or=2+); Squamous Epithelial Cells - UA 0-5 SEEN /hpf (5-10); White Blood Cells 0-5 SEEN /hpf (0-5)
== END ==
LOC: OLS.SWAL 17:30
PROVIDERS: PCP Family Medicine; Visit Provider Family Medicine
DX: N39.0 Urinary tract infection, site not specified (principal)
CPT/HCPCS: 81001; 87086

== ENCOUNTER 2024-06-28 09:04 | Day surgery (SDC) | payer MEDICARE, MEDICAID, SELFPAY ==
[2024-06-28 09:44] VITALS: BP 122/55; PULSE 74; RESP 16; TEMP 36.9; O2SAT 96; BMI 48.4
--- NOTE | 2024-06-28 10:11 | RAD_ITS ---
PROCEDURE: Cervical epidural block DATE OF EXAMINATION: 06/28/2024 INDICATION: Female, 79 years old. Severe headache and neck pain PHYSICIAN: Loi Cameron MD FLUOROSCOPY TIME (if supplied): (8.5) seconds, 2 images RADIATION DOSAGE (If Supplied By Facility): CTDIvol = ( 1.36 ) mGy, DLP = ( ) mGycm CONSENT: The risks, benefits and alternatives to the procedure were explained to the patient, and the patient agreed to the procedure and signed the consent. SEDATION: Local STERILE BARRIER TECHNIQUE: The following sterile barrier precautions were used during the procedure: hand hygiene; use of 2% chlorhexidine aseptic; use of a cap, mask, sterile gown, sterile gloves, sterile full body drape, and a large sterile sheet. PROCEDURE/TECHNIQUE: (All elements of maximal sterile barrier technique followed, including US elements as applicable) The risks, benefits, and alternatives to the procedure were explained to patient, and the patient agreed to the procedure and signed a consent form for the procedure. A timeout was performed to confirm the patient''s identity, the type of procedure, to be performed and the site of entry. Fluoroscopy provided for cervical epidural block, no complications RAD/Spine 1 View Any Level IMPRESSION: No complications noted during cervical epidural block Electronically Signed: William Meadows MD at 13:09 EST ,
[2024-06-28 10:15] VITALS: BP 129/64; O2SAT 99
[2024-06-28] MEDS: MethylPREDNISolone Acetate 80 MG/ML Vial (10:16)
--- NOTE | 2024-06-28 10:21 | OP.PCM_ITS ---
Operative Report (Standard) Operative Information Date of Procedure: 06/28/24 Pre-Operative Diagnosis: 1 Post-Operative Diagnosis: 1 Surgery/Procedure Performed: 1 sleeping car conductor: No Type of Anesthesia: Local RN Documented Start/Stop Times: Operation Date: 06/28/24 10:00 Case Time Into Pre-Op 06/28/24 09:22 Out of Pre-Op 06/28/24 10:01 Into Room 06/28/24 10:09 Procedure Start 06/28/24 10:15 Procedure Start Time: 10:22 Procedure Stop Time: 10:22 Select all DRAINS/GRAFTS/IMPLANTS that apply: None Estimated Blood Loss: 0 Specimen collected: No Description of surgery: PREOPERATIVE DIAGNOSES: Cervical radiculopathy, cervical spinal stenosis, cervical degenerative disc disease POSTOPERATIVE DIAGNOSES:Cervical radiculopathy, cervical spinal stenosis, cervical degenerative disc disease PROCEDURE PERFORMED: Cervical epidural steroid injection, interlaminar at C7-T1 under fluoroscopy. ANESTHESIA: Local. BLOOD LOSS: Minimal. COMPLICATIONS: None. DESCRIPTION OF PROCEDURE: History and physical of today was reviewed. Risks and benefits of the procedure were explained. The patient understood and agreed to proceed. Informed consent was obtained. IV inserted per routine protocol. The patient was taken to the operating room and placed in the prone position with a pillow positioned underneath the chest. The neck area was prepped and draped in a sterile fashion using iodine x3. Under fluoroscopy guidance on an AP view, the C7-T1 interlaminar space was identified. The skin and subcutaneous tissue was anesthetized with approximately 3 mL of 1% lidocaine using a 25-gauge regular needle. Under direct visualization on fluoroscopy, on AP view, using a 20-gauge 2-1/2-inch Tuohy needle, the needle was advanced via the skin. The tip of the needle was maneuvered and directed towards the interlaminar space at C7- T1. Loss of resistance technique was carried to air. Loss of resistance technique was encountered. Once encountered, after negative aspiration for blood and CSF, a total of 1 mL of contrast was injected to confirm correct placement of the needle as well as cephalocaudal spread of the contrast. Confir mation was obtained on AP as well as lateral view. After repeated negative aspiration and confirmation, a total of 3 mL of preservative-free normal saline and 80 mg of Depo-Medrol was injected easily. The needle was then removed intact. The patient experienced no sign or symptoms of intrathecal or intravascular injection. The patient experienced no paresthesia. The procedure was completed without any apparent difficulty or any complications. The patient appeared to tolerate it well. ASSESSMENT AND PLAN: This is a 79-year-old female with cervical radiculopathy, cervical spinal stenosis, cervical degenerative disc disease status post cervical epidural steroid injection interlaminar C7-T1 under fluoroscopic guidance, patient will continue her current medications, patient will follow in approximately 1 to 2 weeks for reevaluation. Surgical Findings: 1 Complications Complications: No Admit VTE Documentation VTE Present on Admission: No VTE Mechan Device Prophylaxis: None
[2024-06-28 10:27] VITALS: BP 101/58; PULSE 75; RESP 16; TEMP 36.2; O2SAT 96
[2024-06-28] MEDS: fentaNYL 100 MCG/2 ML Ampul 25 MCG IV (10:39)
[2024-06-28 11:25] VITALS: BP 122/55; BP 137/58; PULSE 74; RESP 16; TEMP 36.6; O2SAT 97
[2024-06-28 15:16] VITALS: BP 148/79; O2SAT 99
== END 2024-06-28 11:29 | disposition home or self-care (01) ==
LOC: SDC 09:06 → AC 09:07
PROVIDERS: PCP Family Medicine; Referring Provider Anesthesiology Pain Medicine; Visit Provider Anesthesiology Pain Medicine
PROC: 3E0S3BZ Introduction of Anesthetic Agent into Epidural Space, Percutaneous Approach (ICD-10-PCS; CPT 62320; principal; 2024-06-28 09:55)
DX: M48.02 Spinal stenosis, cervical region (principal); R51.9 Headache, unspecified; M54.12 Radiculopathy, cervical region
CPT/HCPCS: 62321; 64490; 72020; A4216

== ENCOUNTER → 2024-07-12 | Outpatient (REF) | payer MEDICARE, MEDICAID, SELFPAY ==
[2024-07-12 10:18] LABS: Anion Gap 4 (5-15); BUN 24 mg/dL (7-18); Calcium,Total 8.4 mg/dL (8.5-10.1); Chloride 109 mmol/L (98-107); Creatinine, Serum 0.68 mg/dL (0.55-1.02); EST Glomerular Filtration Rate 88 mL/min (>60); Est Glom Filt Rate - Afr Amer 107 mL/min (>60); Glucose 93 mg/dL (74-106); Potassium 4.5 mmol/L (3.5-5.1); Sodium Level 139 mmol/L (136-145)
== END ==
LOC: OLS.SWAL 05:00
PROVIDERS: PCP Family Medicine; Visit Provider Family Medicine
DX: E87.6 Hypokalemia (principal); E78.5 Hyperlipidemia, unspecified
CPT/HCPCS: 36415; 80048

== ENCOUNTER → 2024-08-09 19:05 | Outpatient (REF) | payer MEDICARE, MEDICAID, SELFPAY ==
[2024-08-10 08:12] LABS: Bacteria 0 SEEN /hpf (None Seen); Mucous, Urine 0 SEEN /hpf (<or=2+)
[2024-08-10 09:12] LABS: Color, Urine Amber (Yellow); Glucose, Dipstick Normal (Normal); Ketone-Dipstick Negative (Negative); Leukocyte Esterase-Dipstick 25 /ul (Negative); Nitrite-Dipstick Positive (Negative); Occult Blood-Urine Negative /ul (Negative); Protein-Dipstick Negative (Negative); Urine Clarity Clear (Clear); Urine Urobilinogen 4 mg/dl (Normal)
[2024-08-10 09:13] LABS: Urine Bilirubin Dipstick 1 mg/dL (Negative)
[2024-08-10 09:42] LABS: Calcium Oxalate Crystals Ur 2+ /hpf (<or=2+); Red Blood Cells-Urine 0 SEEN /hpf (0-5); Squamous Epithelial Cells - UA 0-5 SEEN /hpf (5-10); White Blood Cells 0-5 SEEN /hpf (0-5)
== END ==
LOC: OLS.SWAL 19:05
PROVIDERS: PCP Family Medicine; Visit Provider Urology
DX: N39.0 Urinary tract infection, site not specified (principal)
CPT/HCPCS: 81001; 87086

== ENCOUNTER 2024-09-06 09:16 | Day surgery (SDC) | payer MEDICARE, MEDICAID, SELFPAY ==
[2024-09-06] VITALS (9 sets, daily range): BP systolic 112–133; BP diastolic 41–59; PULSE 70–74; RESP 16–20; TEMP 36.2–36.7; O2SAT 94–98; BMI 49.4
--- NOTE | 2024-09-06 10:21 | SUR.PREOP ---
PATIENT TOOK ELIQUIS YESTERDAY PER RESIDENTIAL. DR. SANTAMARIA NOTIFIED AND HE IS OK WITH THIS.
--- NOTE | 2024-09-06 10:26 | PCM.PRE.AN2 ---
ASA Classification* ASA Classification ASA Classification: 3 Assessment & Plan Anesthesia* Anesthesia Assessment Anesthesia Assessment: Discussed sedation and/or anesthesia options, risks, benefits, and alternatives with patient/parents/legal guardian/POA. Questions invited. The patient/parents/legal guardian/POA seems to understand and agrees to proceed with anesthesia plan. Reviewed the physical assessment, medical history, allergy history and patient home medications list prior to surgery/procedure/anesthetic and documented any changes. Performed airway and anesthesia risk assessments. Anesthesia Type Anesthesia Type: MAC History Source History Obtained from:: Patient and Chart Anesthesia Focused Assessment* Temperature: 98.0 F Pulse Rate: 70 Blood Pressure: 133/51 Respiratory Rate: 20 Pulse Ox: 94 Oxygen Delivery Method: Nasal Cannula Oxygen Flow Rate (L/min): 2 Airway Assessment Mouth opens: >3 cm Mallampati Score: I Teeth Condition: Dentures (Patient has full upper and lower dentures.) Neck Range of motion (ROM): Limited ROM (Slight decrease in extension) Focused Labs Anesthesia Preop lab: CBC WBC 4.2 K/mm3 (4.4-11.0) L 05/08/24 22:20 05/08/24 RBC 3.42 M/mm3 (4.2-5.4) L 05/08/24 22:20 05/08/24 Hgb 11.0 g/dL (12.0-15.0) L 05/08/24 22:20 05/08/24 Hct 34.9 % (37-47) L 05/08/24 22:20 05/08/24 Plt Count 169 K/mm3 (150-450) 05/08/24 22:20 05/08/24 CHEMISTRY Potassium 4.5 mmol/L (3.5-5.1) 07/12/24 08:05 07/12/24 Sodium 139 mmol/L (136-145) 07/12/24 08:05 07/12/24 Magnesium 2.1 mg/dL (1.6-2.6) 05/08/24 22:20 05/08/24 Phosphorus 2.4 mg/dL (2.5-4.9) L 06/25/23 07:02 06/25/23 BUN 24 mg/dL (7-18) H 07/12/24 08:05 07/12/24 Creatinine 0.68 mg/dL (0.55-1.02) 07/12/24 08:05 07/12/24 Glucose 93 mg/dL (74-106) 07/12/24 08:05 07/12/24 POC Glucose 86 mg/dL (74-106) 05/06/24 08:30 05/06/24 TSH 1.890 uIU/mL (0.358-3.740) 04/13/24 16:22 04/13/24 COAG PT 14.5 SECONDS (11.7-14.9) 06/26/23 07:07 06/26/23 Pre-Assessment Diagnosis/Proposed Procedure Planned Operative Procedure(s): Right knee injection. 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 When Was Last Pacemaker Check QUESTION #4 FULL TEXT: You/Your Family Experience fever (hyperthermia) with Anesthesia Last Oral Intake Last Oral intake: Last Oral Intake NPO since 23:00 09/06/24 10:17 Meds taken in AM with sips of water? Meds patient instructed to take am of surgery PONV PONV - leather heel breaster: PONV - leather heel breaster Female HX of Motion Sickness HX of N/V After Surgery Non-Smoker Duration of Surgery greater than 60 minutes Number of Risk Factors PONV Score Height & Weight Height & Weight: Anesthesia: Height & Weight Height 5 ft 5 in 09/06/24 10:17 Weight: 134.717 kg 09/06/24 10:17 Body Mass Index (BMI) 49.4 09/06/24 10:17 Respiratory Assessment Respiratory Assessment - leather heel breaster: Respiratory Tract Infection Hx - leather heel breaster Hx Respiratory Tract Infection No 05/04/24 14:25 STOP Sleep Apnea STOP Sleep Apnea - leather heel breaster: STOP Sleep Apnea - leather heel breaster Hx Hypertension No 05/04/24 14:25 Hx Sleep Apnea No 05/06/24 11:00 CPAP No 05/04/24 14:25 BIPAP No 05/04/24 14:25 Do you snore loudly (louder than talking or can be heard Do you often feel tired/ fatigued/ sleepy during daytime? Has anyone observed you stop breathing during sleep? STOP Results QUESTION #5 FULL TEXT : Do you snore loudly (louder than talking or can be heard through closed doors)? Tobacco Use History Tobacco Use History - leather heel breaster: Tobacco Use History - leather heel breaster Tobacco Use Non-smoker 11/04/20 22:25 Smoking Status Never smoker 05/08/24 21:47 Hx Tobacco Use No 05/04/24 14:25 Years Smoking Packs Smoked per Day Smoking Cessation Date was within the last 15 years Hx Smoking Cessation Date Hx Smoking Cessation Counseling Hematologic Medial History Hematologic Hx - leather heel breaster: Hematologic Medical Hx - inflatable buildings laminator Hx of Blood Transfusion Hx of Transfusion in last 3 Months Date of Last Transfusion (if within last 3 months) Ever experience any problems with transfusion(s)? Specify any problems Hx of Preganancy in last 3 Months Nurse Filling Out Transfusion & Questions: Date: Time: Patient unable to answer at this time (ie. confused, unrespo /Reproduction History /Reproductive History - leather heel breaster: /Reproductive Hx- leather heel breaster Hx Now Gestational Age (in weeks): EDC: Hx Hx Para Hx Section SAB No 05/04/24 14:25 [facility] Medical History DVT (deep venous thrombosis) History of echocardiogram Cardiology follow-up encounter On home oxygen therapy Essential tremor Obesity CHF (congestive heart failure) Primary osteoarthritis, left shoulder Left shoulder pain Urinary tract infection Normocytic anemia Hydronephrosis Wears hearing aid Wears dentures Uses wheelchair Walker as ambulation aid Bladder disease Low iron Back pain Injury of head and neck Non-smoker Shortness of breath on exertion History of pain when walking History of edema Hx of peripheral neuropathy History of stress test Hiatal hernia Restless legs High cholesterol Chronic UTI GERD (gastroesophageal reflux disease) Arthritis GI bleed Pulmonary embolism Chronic neuropathic pain Anxiety and depression HLD (hyperlipidemia) Cystitis Segmental and somatic dysfunction of cervical region Diabetic neuropathy associated with type 2 diabetes mellitus Chronic anticoagulation Morbid obesity with BMI of 45.0-49.9, adult Chronic pain following surgery or procedure Segmental and somatic dysfunction of pelvic region Facet arthropathy, lumbar Segmental and somatic dysfunction of thoracic region Segmental and somatic dysfunction of lumbar region Closed left arm fracture Polycystic ovaries Osteoarthritis Neuropathy Diabetes Carpal tunnel syndrome Cataracts, both eyes History of DVT (deep vein thrombosis) Home Medications ?Medication ?Instructions ?Recorded ?Last Taken ?Type cholecalciferol (vitamin D3) 25 1,000 unit PO DAILY vitamin 12/29/15 09/05/24 History mcg (1,000 unit) tablet (Vitamin D3) pravastatin 40 mg tablet 40 mg PO QHS cholesterol 08/05/18 09/05/24 History primidone 50 mg tablet 100 mg PO TID tremors 03/18/19 09/05/24 History simethicone 80 mg chewable tablet 80 mg PO TIDCM indigestion 03/18/19 09/05/24 History ascorbic acid (vitamin C) 500 mg 500 mg PO DAILY supplement 09/28/20 09/05/24 History tablet cyanocobalamin (vitamin B-12) 1,000 mcg IM QMONTH supplement 10/23/20 05/26/24 History 1,000 mcg/mL injection solution nystatin 100,000 unit/gram topical 1 applic topical Q8H PRN Skin 07/30/21 Unknown History powder Irritation apixaban 5 mg tablet (Eliquis) 5 mg PO BID blood thinner 09/30/21 09/05/24 History d-mannose 500 mg capsule 1,000 mg PO BID ssee 12/05/21 09/05/24 History ferrous sulfate 325 mg (65 mg 325 mg PO QHS iron 03/19/23 09/05/24 History iron) tablet (Feosol) omeprazole 40 mg capsule,delayed 40 mg PO DAILY GERD 04/16/23 09/05/24 History release ondansetron HCl 8 mg tablet 8 mg PO Q8H PRN Nausea 04/16/23 Unknown History oxybutynin chloride 5 mg 5 mg PO DAILY OVERACTIVE BLADDER 04/16/23 09/05/24 History tablet,extended release 24 hr phenazopyridine 200 mg tablet 200 mg PO Q8H PRN Bladder Spasms 04/16/23 06/27/24 History (Pyridium) acetaminophen 325 mg tablet 650 mg PO Q4H PRN pain/ elevated 07/31/23 09/05/24 History temp furosemide 40 mg tablet 40 mg PO BIDLX #0 tabs 10/06/23 09/05/24 Rx potassium chloride 10 mEq 10 meq PO BIDCM #0 tabs 10/06/23 09/05/24 Rx tablet,extended release(part/cryst) Held on 06/28/24. Instructions: hurts my stomach vibegron 75 mg tablet (Gemtesa) 75 mg PO DAILY #0 tabs 10/06/23 09/05/24 Rx dextrose 40 % oral gel (Glucose 10 g PO Q15M PRN hypoglycemia 10/15/23 05/05/24 History Gel) fluticasone propionate 50 2 spray intranasal DAILY PRN 10/15/23 09/05/24 History mcg/actuation nasal allergy symptoms spray,suspension (24 Hour Allergy Relief) glucagon HCl 1 mg solution for 1 mg subcut Q20M PRN hypoglycemia 10/15/23 Unknown History injection (Glucagon (HCl) Emergency Kit) guaifenesin 100 mg/5 mL oral liquid 200 mg PO Q4H PRN cough 10/15/23 Unknown History mineral oil (Fleet Mineral Oil 118 ml SC DAILY PRN constipation 10/15/23 Unknown History enema) halobetasol propionate 0.05 % 1 applic topical BID 10/31/23 06/27/24 History topical cream duloxetine 30 mg capsule,delayed 90 mg PO DAILY depression 11/20/23 09/05/24 History release magnesium hydroxide 400 mg/5 mL 30 ml PO QHS PRN constipation 03/26/24 Unknown History oral suspension (Milk of Magnesia) L.acidophil,salivari-Bifido 1 cap PO DAILY 04/07/24 09/05/24 History bifidum-Strep thermoph 175 mg capsule cephalexin 500 mg capsule 500 mg PO QHS 05/04/24 09/05/24 History albuterol sulfate 2.5 mg/3 mL 2.5 mg inhalation Q2H PRN 05/08/24 Unknown History (0.083 %) solution for nebulization shortness of breath or wheezing albuterol sulfate 90 mcg/actuation 2 inh inhalation Q4H PRN shortness 05/08/24 Unknown History aerosol inhaler of breath or wheezing aluminum-mag hydroxide-simethicone 5 ml PO Q4H PRN GI bleeding 05/08/24 09/05/24 History 200 mg-200 mg-20 mg/5 mL oral susp prophylaxis (Advanced Antacid-Antigas) docusate sodium 100 mg capsule 100 mg PO DAILY 05/08/24 09/05/24 History (Col-Rite) Allergy/AdvReac Type Severity Reaction Status Date / Time ampicillin (From Unasyn) Allergy Severe Blisters Verified 09/06/24 10:03 on tongue /throat difficulty breathing sore tongue/ warfarin sodium (From Allergy Severe Low red Verified 09/06/24 10:03 Coumadin) blood cells Family History Father Colon cancer Hypertension Mother Hypertension Diabetes Grandmother Hypertension Surgical History History of bilateral cataract extraction History of tonsillectomy Hx of cystoscopy Hx of cystoscopy History of cystoscopy S/P hysterectomy H/O cardiac catheterization (05/22/11) History of cholecystectomy History of embolic filter insertion History of carpal tunnel surgery History of hysterectomy Total knee replacement status History of gastric bypass Social History housing: assisted living facility Smoking Status: Never smoker alcohol intake: current alcohol intake frequency: holidays/special occasions only substance use type: does not use what type of physical activity do you participate in: walking and aerobics frequency: 1-2 times per week Review of Systems (Anesthesia) ROS Narrative System reviewed and no additional complaints, except as documented.
--- NOTE | 2024-09-06 10:52 | RAD_ITS ---
PROCEDURE: Fluoroscopy use. 09/06/2024 REASON FOR EXAM: Right knee injection TECHNIQUE: 3 intraoperative spot images were obtained during right knee injection. 11 seconds of fluoroscopic time utilized. COMPARISON: None. FINDINGS: 3 intraoperative spot images were obtained during right knee injection. Needle tips project near the proximal medial right tibia and both sides of the distal femur on the provided images. There is a right total knee arthroplasty present. RAD/Fluoro Guided Needle Placement IMPRESSION: Documentation of fluoroscopy use during right knee injection. Please see the o perative note for details. Reading Location: [facility]
[2024-09-06] MEDS: Bupivacaine 0.25% 30 ML Vial (11:03)
[2024-09-06] MEDS: MethylPREDNISolone Acetate 80 MG/ML Vial (11:03)
[2024-09-06] MEDS: Lidocaine 1% (5 ml sdv) 5 ML Vial (11:04)
--- NOTE | 2024-09-06 11:09 | PCM.POST.ANE ---
Anesthesia: Postop Eval I Current Vital Signs Temperature: 97.5 F Pulse Rate: 74 Blood Pressure: 119/45 Respiratory Rate: 18 Pulse Ox: 98 Oxygen Delivery Method: Nasal Cannula Oxygen Flow Rate (L/min): 2 Assessment Airway patent: Yes Spontaneous unlabored respirations: Yes Mental status: Awake nausea: No Vomiting: No Anesthesia Complication: No Fluid Hydration Crystalloid volume administer (ml): 10 Total IV fluid infused: 10 Progress Note Anesthesia document: Postop Eval 1 completed: Yes
--- NOTE | 2024-09-06 11:16 | OP.PCM_ITS ---
Operative Report (Standard) Operative Information Date of Procedure: 09/06/24 Pre-Operative Diagnosis: 1 Post-Operative Diagnosis: 1 Surgery/Procedure Performed: 1 box hinge and lock attacher: No Type of Anesthesia: Local MAC RN Documented Start/Stop Times: Operation Date: 09/06/24 11:00 Case Time Into Pre-Op 09/06/24 09:49 Anesthesia Start 09/06/24 10:53 Into Room 09/06/24 10:53 Procedure Start 09/06/24 11:00 Procedure End 09/06/24 11:04 Anesthesia End 09/06/24 11:08 Out of Room 09/06/24 11:08 Procedure Start Time: 11:16 Procedure Stop Time: 11:17 Select all DRAINS/GRAFTS/IMPLANTS that apply: None Estimated Blood Loss: 1 Specimen collected: No Description of surgery: PREOPERATIVE DIAGNOSIS: Osteoarthritis of the right knee, chronic postoperative knee pain POSTOPERATIVE DIAGNOSIS: Osteoarthritis of the right knee, chronic postoperative knee pain PROCEDURE PERFORMED: Right knee superomedial, superolateral, and inferomedial genicular nerves steroid injection under fluoroscopy guidance. ANESTHESIA: MAC. BLOOD LOSS: Minimal. COMPLICATIONS: None. DESCRIPTION OF PROCEDURE: History and physical of today was reviewed. Risks and benefits of the procedure were explained. The patient understood and agreed to proceed. Informed consent was obtained. IV inserted per routine protocol. The patient was taken to the operating room and placed in the supine position. The right knee was prepped and draped in a sterile fashion using iodine x3. Under fluoroscopy guidance on AP view, the right knee was visualized. The skin and subcutaneous tissue was anesthetized with approximately 5 mL of 1% lidocaine using a 25-gauge regular needle at the vicinity of the superomedial, superolateral, and inferomedial genicular nerves. Under direct visualization of fluoroscopy on AP view as well as lateral view, starting on the right superomedial, ending on the right inferomedial, passing through the right superolateral genicular nerves, the needle was passed through the skin. The tip of the needle was maneuvered and directed towards the diaphyseal junction of each corresponding nerve. Once tip of the needle was in the vicinity of the diaphysis and in contact with the bone, after confirmation on AP as well as lateral view and repeated negative aspiration for blood, a total of 12 mL of preservative-free 0.25% Marcaine with 80 mg of Depo-Medrol was injected in divided doses between those three levels. The needles were then removed intact. The patient experienced no sign or symptoms of intravascular injection. The patient experienced no paresthesia. The procedure was completed without any apparent difficulty or any complications. The patient appeared to tolerate it well. ASSESSMENT AND PLAN: This is a 79-year-old female with osteoarthritis of the right knee, chronic postoperative knee pain status post right knee superior medial, superior lateral, inferior medial genicular nerve steroid injection under fluoroscopic guidance, patient will continue her current medications, patient will follow in approximately 2 weeks for reevaluation. Surgical Findings: 1 Complications Complications: No Admit VTE Documentation VTE Present on Admission: No VTE Mechan Device Prophylaxis: None VTE Pharm Prophylaxis ordered?: No
--- NOTE | 2024-09-06 12:00 | SUR.PHASEII ---
at 1152, pt c/o itching sensation to GERARDO, skin to GERARDO bright red, no hives, no rash; pt states area is where BP cuff was. Pt given lotion and this RN spoke with Dr Jacobson. When this RN returns to room, pt states lotion has caused itching to subside. pt instructed per Dr Jacobson to take po Benadryl OTC at home. pt and visitor verbalize understanding.
--- NOTE | 2024-09-06 12:24 | POSTOPAN2_ITS ---
Anesthesia Postop Eval I Sum Postop Eval Completion status Anesthesia document: Postop Eval 1 completed: Yes Anesthesia Postop Eval I Summary Anesthesia Postop Eval I Summary: Anesthesia Postop Eval I: Assessment Summary Airway patent Yes 09/06/24 11:14 [email or web address] Spontaneous unlabored Yes 09/06/24 11:14 [email or web address] respirations Mental status Awake 09/06/24 11:14 [email or web address] nausea No 09/06/24 11:14 PILOT [email or web address] Vomiting No 09/06/24 11:14 PILOT [email or web address] Anesthesia Postop Eval I: Fluid Summary Crystalloid volume administer 10 09/06/24 11:14 [email or web address] (ml) Colloids volume administered ( ml) Blood Product volume administered (ml) Total IV fluid infused 10 09/06/24 11:14 [email or web address] Anesthesia Postop Eval I: Summary Notes Anesthesia Complication No 09/06/24 11:14 [email or web address] Anesthesia Complication Comment: Post-operative progress note Anesthesia: Postop Eval II Evaluation Mental status: Awake Pain Level: 2 nausea: No Vomiting: No
--- NOTE | 2024-09-06 12:24 | PCM.POSTANE2 ---
Anesthesia Postop Eval I Sum Postop Eval Completion status Anesthesia document: Postop Eval 1 completed: Yes Anesthesia Postop Eval I Summary Anesthesia Postop Eval I Summary: Anesthesia Postop Eval I: Assessment Summary Airway patent Yes 09/06/24 11:14 POLICE LIEUTENANT [email or web address] Spontaneous unlabored Yes 09/06/24 11:14 POLICE LIEUTENANT [email or web address] respirations Mental status Awake 09/06/24 11:14 POLICE LIEUTENANT [email or web address] nausea No 09/06/24 11:14 POLICE LIEUTENANT [email or web address] Vomiting No 09/06/24 11:14 POLICE LIEUTENANT [email or web address] Anesthesia Postop Eval I: Fluid Summary Crystalloid volume administer 10 09/06/24 11:14 POLICE LIEUTENANT [email or web address] (ml) Colloids volume administered ( ml) Blood Product volume administered (ml) Total IV fluid infused 10 09/06/24 11:14 POLICE LIEUTENANT [email or web address] Anesthesia Postop Eval I: Summary Notes Anesthesia Complication No 09/06/24 11:14 POLICE LIEUTENANT [email or web address] Anesthesia Complication Comment: Post-operative progress note Anesthesia: Postop Eval II Evaluation Mental status: Awake Pain Level: 2 nausea: No Vomiting: No
== END 2024-09-06 12:14 | disposition home or self-care (01) ==
LOC: SDC 09:19 → AC 09:41
PROVIDERS: PCP Family Medicine; Referring Provider Anesthesiology Pain Medicine; Visit Provider Anesthesiology Pain Medicine
PROC: 3E0U3GC Introduction of Other Therapeutic Substance into Joints, Percutaneous Approach (ICD-10-PCS; CPT 20610; principal; 2024-09-06 10:55)
DX: M17.11 Unilateral primary osteoarthritis, right knee (principal); M25.569 Pain in unspecified knee; G89.29 Other chronic pain
CPT/HCPCS: 64454; 76000; 77002; A4216

== ENCOUNTER → 2024-10-04 | Outpatient (REF) | payer MEDICARE, MEDICAID, SELFPAY ==
[2024-10-05 10:07] LABS: Bacteria 0 SEEN /hpf (None Seen); Mucous, Urine 0 SEEN /hpf (<or=2+); Red Blood Cells-Urine 0 SEEN /hpf (0-5); White Blood Cells 0 SEEN /hpf (0-5)
[2024-10-05 10:23] LABS: Color, Urine Amber (Yellow); Glucose, Dipstick Normal (Normal); Ketone-Dipstick Negative (Negative); Leukocyte Esterase-Dipstick Negative /ul (Negative); Nitrite-Dipstick Positive (Negative); Occult Blood-Urine Negative /ul (Negative); Protein-Dipstick 15 mg/dl (Negative); Urine Clarity Sl. Cloudy (Clear); Urine Urobilinogen 4 mg/dl (Normal)
[2024-10-05 10:24] LABS: Urine Bilirubin Dipstick 1 mg/dL (Negative)
[2024-10-05 10:51] LABS: Calcium Oxalate Crystals Ur 2+ /hpf (<or=2+); Squamous Epithelial Cells - UA 0-5 SEEN /hpf (5-10)
== END ==
LOC: OLS.SWAL 20:00
PROVIDERS: PCP Family Medicine; Visit Provider Internal Medicine Infectious Disease
DX: N39.0 Urinary tract infection, site not specified (principal)
CPT/HCPCS: 81001; 87086

== ENCOUNTER → 2024-10-12 | Outpatient (REF) | payer MEDICARE, MEDICAID, SELFPAY ==
[2024-10-12 09:29] LABS: Hematocrit 29.3 % (37-47); Hemoglobin 8.9 g/dL (12.0-15.0); Mean Corp Hgb Conc 30.4 g/dL (32-36); Mean Corpuscular Hgb 32.4 pg (27.0-32.0); Mean Corpuscular Volume 106.5 fL (81-99); Mean Platelet Vol. 9.4 fl (6.2-12.0); Platelet Count 167 K/mm3 (150-450); RBC Distribution Width CV 13.2 % (11.6-14.6); RBC Distribution Width SD 52.1 fl (35.1-43.9); Red Blood Count 2.75 M/mm3 (4.2-5.4); White Blood Count 3.7 K/mm3 (4.4-11.0)
[2024-10-12 10:02] LABS: Vitamin B12 635 pg/mL (180-914); Vitamin D,25 Hydroxy 25.3 ng/mL (30-100)
== END ==
LOC: OLS.SWAL 04:00
PROVIDERS: PCP Family Medicine; Visit Provider Family Medicine
DX: D64.9 Anemia, unspecified (principal); I10 Essential (primary) hypertension; E78.5 Hyperlipidemia, unspecified
CPT/HCPCS: 36415; 82306; 82607; 85027

== ENCOUNTER 2024-10-17 17:36 | Inpatient (IN) | payer MEDICARE, MEDICAID, SELFPAY ==
[2024-10-17] VITALS (8 sets, daily range): BP systolic 116–154; BP diastolic 48–87; PULSE 70–88; RESP 18–25; TEMP 36.8–37.1; O2SAT 95–100; BMI 54.4; BMI 52.1
--- NOTE | 2024-10-17 18:03 | EKG12_ITS ---
Test Reason : CP/CHF Blood Pressure : */* mmHG Vent. Rate : 81 BPM Atrial Rate : 81 BPM P-R Int : 204 ms QRS Dur : 96 ms QT Int : 390 ms P-R-T Axes : 53 25 40 degrees QTcB Int : 453 ms Normal sinus rhythm Normal ECG Confirmed by WILMAN GUNTER, ROSEY ([id number]), book or script editor KARISHMA BRAGG ([id number]) on 10/20/2024 11:55:23 AM Referred By: Devika Jaimes Confirmed By: ROSEY STOVALL MD
--- NOTE | 2024-10-17 18:17 | RAD_ITS ---
PROCEDURE: CHEST PA AND LATERAL 10/17/2024 REASON FOR EXAM: CHEST PAIN TECHNIQUE: Frontal and lateral views of the chest. FINDINGS: Hardware: None Heart: The heart size is normal. Mediastinum: The mediastinal contour is unremarkable. Lungs: The lungs are clear. Bones: The bones are unremarkable. RAD/Chest PA and Lateral IMPRESSION: NO ACUTE FINDINGS. Reading Location: [id number]
[2024-10-17 18:28] LABS: Absolute Lymphocyte Count 0.93 X10^3/uL (0.83-4.51); Absolute Neutrophil Count 2.7 X10^3/uL (2.0-7.7); Basophil# 0.04 X10^3/uL; Eosinophil# 0.12 X10^3/uL; Eosinophils% 2.9 % (0-5); Hematocrit 34.3 % (37-47); Hemoglobin 10.7 g/dL (12.0-15.0); Lymphocyte # 0.93 X10^3/ul (0.83-4.51); Lymphocyte % 22.1 % (19-41); Mean Corp Hgb Conc 31.2 g/dL (32-36); Mean Corpuscular Hgb 32.8 pg (27.0-32.0); Mean Corpuscular Volume 105.2 fL (81-99); Mean Platelet Vol. 9.6 fl (6.2-12.0); Monocyte# 0.44 X10^3/uL; Monocyte% 10.5 % (0-10); NRBC Flagged by Analyzer 0 % (0-5); Neutrophil # 2.67 X10^3/uL (2.7-7.7); Neutrophil % 63.3 % (47-70); Platelet Count 213 K/mm3 (150-450); RBC Distribution Width CV 13.2 % (11.6-14.6); RBC Distribution Width SD 50.7 fl (35.1-43.9); Red Blood Count 3.26 M/mm3 (4.2-5.4); White Blood Count 4.2 K/mm3 (4.4-11.0)
--- NOTE | 2024-10-17 18:37 | ED.VIS.CHEST ---
HPI History of Present Illness Chief Complaint: Chest Pain Informant: patient Narrative Narrative: Patient is 79-year-old female with history of congestive heart failure, DVT and PE (on Eliquis), hyperlipidemia and prior Don filter on 2 L of oxygen at baseline presenting with 7 pound weight gain, increased shortness of breath, dyspnea on exertion, cough and exertional chest pain. Patient denies any inciting events of inciting events why she started the symptoms. Denies any fever or chills. Denies any orthopnea. Notes she gets short of breath just walking across the room at her house which is unusual for her. States her cough has been nonproductive. States that she gets a pounding chest pain when she does try to exert herself which is new. Does have increased swelling of her legs. Notes that she continues to urinate regularly when she takes her Lasix. Denies any recent medication changes. No other complaints or concerns reported at this time. Patient states she has been taking her medications regularly. Per prior cardiology note on 11/20/2023 states that patient had an echo in June 2023 which showed LVEF of 65% with severe left atrial enlargement. [facility] Medical History DVT (deep venous thrombosis) History of echocardiogram Cardiology follow-up encounter On home oxygen therapy Essential tremor Obesity CHF (congestive heart failure) Primary osteoarthritis, left shoulder Left shoulder pain Urinary tract infection Normocytic anemia Hydronephrosis Wears hearing aid Wears dentures Uses wheelchair Walker as ambulation aid Bladder disease Low iron Back pain Injury of head and neck Non-smoker Shortness of breath on exertion History of pain when walking History of edema Hx of peripheral neuropathy History of stress test Hiatal hernia Restless legs High cholesterol Chronic UTI GERD (gastroesophageal reflux disease) Arthritis GI bleed Pulmonary embolism Chronic neuropathic pain Anxiety and depression HLD (hyperlipidemia) Cystitis Segmental and somatic dysfunction of cervical region Diabetic neuropathy associated with type 2 diabetes mellitus Chronic anticoagulation Morbid obesity with BMI of 45.0-49.9, adult Chronic pain following surgery or procedure Segmental and somatic dysfunction of pelvic region Facet arthropathy, lumbar Segmental and somatic dysfunction of thoracic region Segmental and somatic dysfunction of lumbar region Closed left arm fracture Polycystic ovaries Osteoarthritis Neuropathy Diabetes Carpal tunnel syndrome Cataracts, both eyes History of DVT (deep vein thrombosis) Home Medications ?Medication ?Instructions ?Recorded ?Last Taken ?Type cholecalciferol (vitamin D3) 25 2,000 unit PO DAILY vitamin 12/29/15 09/05/24 History mcg (1,000 unit) tablet (Vitamin D3) pravastatin 40 mg tablet 40 mg PO QHS cholesterol 08/05/18 09/05/24 History primidone 50 mg tablet 100 mg PO TID tremors 03/18/19 09/05/24 History simethicone 80 mg chewable tablet 80 mg PO TIDCM indigestion 03/18/19 09/05/24 History ascorbic acid (vitamin C) 500 mg 500 mg PO DAILY supplement 09/28/20 09/05/24 History tablet cyanocobalamin (vitamin B-12) 1,000 mcg IM QMONTH supplement 10/23/20 05/26/24 History 1,000 mcg/mL injection solution nystatin 100,000 unit/gram topical 1 applic topical Q8H PRN Skin 07/30/21 Unknown History powder Irritation apixaban 5 mg tablet (Eliquis) 5 mg PO BID blood thinner 09/30/21 09/05/24 History d-mannose 500 mg capsule 1,000 mg PO BID ssee md 12/05/21 09/05/24 History ferrous sulfate 325 mg (65 mg 325 mg PO QHS iron 03/19/23 09/05/24 History iron) tablet (Feosol) omeprazole 40 mg capsule,delayed 40 mg PO DAILY GERD 04/16/23 09/05/24 History release ondansetron HCl 8 mg tablet 8 mg PO Q8H PRN Nausea 04/16/23 Unknown History oxybutynin chloride 5 mg 5 mg PO DAILY OVERACTIVE BLADDER 04/16/23 09/05/24 History tablet,extended release 24 hr phenazopyridine 200 mg tablet 200 mg PO Q8H PRN Bladder Spasms 04/16/23 06/27/24 History (Pyridium) acetaminophen 325 mg tablet 650 mg PO Q4H PRN pain/ elevated 07/31/23 09/05/24 History temp furosemide 40 mg tablet 40 mg PO BIDLX #0 tabs 10/06/23 09/05/24 Rx vibegron 75 mg tablet (Gemtesa) 75 mg PO DAILY #0 tabs 10/06/23 09/05/24 Rx dextrose 40 % oral gel (Glucose 10 g PO Q15M PRN hypoglycemia 10/15/23 05/05/24 History Gel) fluticasone propionate 50 2 spray intranasal DAILY PRN 10/15/23 09/05/24 History mcg/actuation nasal allergy symptoms spray,suspension (24 Hour Allergy Relief) glucagon HCl 1 mg solution for 1 mg subcut Q20M PRN hypoglycemia 10/15/23 Unknown History injection (Glucagon (HCl) Emergency Kit) guaifenesin 100 mg/5 mL oral liquid 200 mg PO Q4H PRN cough 10/15/23 Unknown History mineral oil (Fleet Mineral Oil 118 ml [place] DAILY PRN constipation 10/15/23 Unknown History enema) halobetasol propionate 0.05 % 1 applic topical BID 10/31/23 06/27/24 History topical cream duloxetine 30 mg capsule,delayed 90 mg PO DAILY depression 11/20/23 09/05/24 History release magnesium hydroxide 400 mg/5 mL 30 ml PO QHS PRN constipation 03/26/24 Unknown History oral suspension (Milk of Magnesia) L.acidophil,salivari-Bifido 1 cap PO DAILY 04/07/24 09/05/24 History bifidum-Strep thermoph 175 mg capsule cephalexin 500 mg capsule 500 mg PO QHS 05/04/24 09/05/24 History albuterol sulfate 2.5 mg/3 mL 2.5 mg inhalation Q2H PRN 05/08/24 Unknown History (0.083 %) solution for nebulization shortness of breath or wheezing albuterol sulfate 90 mcg/actuation 2 inh inhalation Q4H PRN shortness 05/08/24 Unknown History aerosol inhaler of breath or wheezing aluminum-mag hydroxide-simethicone 5 ml PO Q4H PRN GI bleeding 05/08/24 09/05/24 History 200 mg-200 mg-20 mg/5 mL oral susp prophylaxis (Advanced Antacid-Antigas) docusate sodium 100 mg capsule 100 mg PO DAILY 05/08/24 09/05/24 History (Col-Rite) gabapentin 300 mg capsule 300 mg PO TID 10/17/24 Unknown History hydrocodone-acetaminophen 5-325mg 1 tab PO TID PRN PRN pain 10/17/24 Unknown History 5mg-325mg Allergy/AdvReac Type Severity Reaction Status Date / Time ampicillin (From Unasyn) Allergy Severe Blisters Verified 10/17/24 17:40 on tongue /throat difficulty breathing sore tongue/ warfarin sodium (From Allergy Severe Low red Verified 10/17/24 17:40 Coumadin) blood cells Family History Father Colon cancer Hypertension Mother Hypertension Diabetes Grandmother Hypertension Surgical History History of bilateral cataract extraction History of tonsillectomy Hx of cystoscopy Hx of cystoscopy History of cystoscopy S/P hysterectomy H/O cardiac catheterization (05/22/11) History of cholecystectomy History of embolic filter insertion History of carpal tunnel surgery History of hysterectomy Total knee replacement status History of gastric bypass Social History housing: assisted living facility Smoking Status: Never smoker alcohol intake: current alcohol intake frequency: holidays/special occasions only substance use type: does not use what type of physical activity do you participate in: walking and aerobics frequency: 1-2 times per week ROS ROS ED Constitutional Constitutional ED: Denies chills or fever(s) ENT ENT ED: Denies rhinorrhea or sore throat Cardiovascular Cardiovascular: Reports as per HPI and chest pain; Denies palpitations Respiratory/Chest Respiratory/Chest: Reports cough and dyspnea on exertion; Denies sputum Gastrointestinal Gastrointestinal: Denies abdominal pain, nausea or vomiting Genitourinary Genitourinary ED: Denies dysuria or hematuria Musculoskeletal Musculoskeletal: Denies arthralgias or myalgias Neurologic Neurologic: Reports weakness Hematologic/Lymphatic Hematologic/Lymphatic: Reports easy bleeding and easy bruising EXAM Physical Exam Const Vital Signs: 10/17/24 17:37 10/17/24 17:55 10/17/24 18:14 Temperature 98.2 F Temperature Source Oral Pulse Rate 81 Respiratory Rate 25 H Respiratory Effort Normal Non-Labored Blood Pressure 154/58 H Blood Pressure Mean 90 Pulse Ox 96 96 Oxygen Delivery Method Nasal Cannula Nasal Cannula Oxygen Flow Rate (L/min) 2 2 10/17/24 18:40 10/17/24 19:03 10/17/24 20:00 Temperature Temperature Source Pulse Rate 72 70 75 Respiratory Rate 18 18 21 H Respiratory Effort Blood Pressure 116/48 L 122/59 H 118/87 H Blood Pressure Mean 70 80 97 Pulse Ox 96 100 98 Oxygen Delivery Method Nasal Cannula Nasal Cannula Oxygen Flow Rate (L/min) 2 2 Positive well nourished and well developed General Appearance ED: well developed and NAD HEENT Reports moist mucous membranes Eyes PERRL Neck supple and no JVD Chest Wall inspection of chest normal and palpation of chest normal Resp normal respiratory effort Resp Narrative: Intermittent cough on exam. It is nonproductive. Breath sounds throughout. Slight crackles noted at the right base. Auscultation: Negative for wheezes Cardio regular rate, regular rhythm and no murmurs Peripheral Pulses: pulses 2+ throughout GI normal to inspection, nondistended, normoactive bowel sounds, soft to palpation and no masses Extremity Extremity Narrative: 1+ pedal edema to the ankles bilaterally Neuro oriented x3 Sensorium / Orientation: awake Motor Exam: general weakness Psych mental status grossly normal Skin no rashes or lesions noted Skin Narrative: Slight bruising noted to the left anterior siu, appears to be healing appropriately MDM MDM MDM Narrative Medical decision making narrative: Patient is evaluated for 1 week of worsening shortness of breath, dyspnea on exertion and weight gain. Patient wears 2 L of oxygen at baseline. She carries a diagnosis of congestive heart failure and has been compliant with her Lasix (40 mg twice daily). She is continue to have good urine output. Differential includes CHF exacerbation, pneumonia, symptomatic anemia, ACS and pleural effusion. She is chronically anticoagulated on Eliquis have a low suspicion for PE. She has a mild leukopenia. Chest x-ray viewed by myself as well as radiology does not show any acute process specifically does not show any pulmonary vessel congestion, pleural effusions or infiltrate. CBC shows mild leukopenia and a mild but chronic appearing hemoglobin at 10.7. BMP largely normal with no VISHNU or significant electrolyte derangement. Her BNP is actually normal at 736. Initial high-sensitivity troponin 12 and on repeat is 18. Patient is ambulated emergency room and desaturates into the 70s on her 2 L of oxygen. She is quite symptomatic and feels weak as if her legs are going to give out. Because of this I will discuss admission with the hospitalist. Patient is given IV Lasix. Lab Data Attestation: I reviewed the patient's lab results. Labs: Laboratory Results - last 24 hr 10/17/24 10/17/24 17:53 19:56 WBC 4.2 L RBC 3.26 L Hgb 10.7 L Hct 34.3 L MCV 105.2 H MCH 32.8 H MCHC 31.2 L RDW Std Deviation 50.7 H RDW Coeff of Chani 13.2 Plt Count 213 MPV 9.6 Immature Gran % (Auto) 0.200 Neut % (Auto) 63.3 Lymph % (Auto) 22.1 Cassia % (Auto) 10.5 H Eos % (Auto) 2.9 Baso % (Auto) 1.0 Absolute Neuts (auto) 2.7 Absolute Lymphs (auto) 0.93 Nucleated RBC % 0 Sodium 139 Potassium 4.7 Chloride 105 Carbon Dioxide 24.7 Anion Gap 9 BUN 24 H Creatinine 0.77 Estim Creat Clear Calc 85.60 Est GFR (MDRD) Non-Af 79 BUN/Creatinine Ratio 31.6 H Glucose 95 Calcium 8.3 Magnesium 2.0 2.0 Troponin T High Sens 12 Troponin T Hi Sens 2 Hr 13 NT pro BNP II 736 Radiography Diagnostic Testing: Clinical Impression(s) from Imaging Studies Chest X-Ray 10/17/24 18:17 IMPRESSION: NO ACUTE FINDINGS. Reading Location: [facility] Rhythm Strip Rhythm Strip: Sinus Rhythm Rate: 81 Ectopy: None EKG Initial EKG: Attestation: I personally reviewed and interpreted this EKG as follows: Interpretation: Sinus Rhythm Comments: Normal sinus rhythm rate of 81 bpm Normal axis Normal intervals Normal ST segments Prior EKG tracings: available for review Prior: Unchanged Management Discussion w/another healthcare provider: Hospitalist Discharge Plan Dx/Rx/DC Orders Clinical Impression: Hypoxia, CHF (congestive heart failure), Volume overload Disposition Disposition: Acute Care Hospital [facility] Discharge Date/Time: 10/17/24 21:42
[2024-10-17 18:51] LABS: Pro- Brain NATRIURETIC PEPTIDE 736 pg/mL (<=1800); Troponin T High Sensitivity 12 ng/L (<=14)
[2024-10-17 18:52] LABS: Anion Gap 9 (5-15); BUN 24 mg/dL (4-19); BUN/Creat Ratio 31.6 RATIO (10-20); Calcium,Total 8.3 mg/dL (7.6-11.0); Carbon Dioxide 24.7 mmol/L (21.0-32.0); Chloride 105 mmol/L (98-108); Creatinine, Serum 0.77 mg/dL (0.70-1.20); EST Glomerular Filtration Rate 79 (>60); Glucose 95 mg/dL (70-99); Potassium 4.7 mmol/L (3.3-5.1); Sodium Level 139 mmol/L (133-145)
[2024-10-17 20:16] LABS: Troponin T High Sens 2 HR 13 ng/L (<=14)
--- NOTE | 2024-10-17 20:23 | PCM.HP.STD ---
[facility] - General General Date of Admission: 10/17/24 Date of Service: 10/17/24 Chief Complaint: Chest Pain and Dyspnea on Exertion. HPI Narrative ADAM NIX, is a 79 F with a past medical history of essential hypertension; on furosemide BID, hyperlipidemia; on pravastatin, morbid obesity; with BMI of 54.4 this admission, obstructive sleep apnea, history of DVT/pulmonary embolism; on Eliquis, history of IVC filter, history of gastric bypass, peripheral neuropathy; on gabapentin TID, essential tremor; on primidone, RLS, history of PCOS, NANCI; on ferrous sulfate, history of allergic rhinitis; on fluticasone nasal spray as needed daily, OAB; on vibegron, oxybutynin and as needed phenazopyridine 3 times daily as needed for bladder spasms, history of renal calculi, history of GERD; on omeprazole with hiatal hernia, history of GI bleed, depression with anxiety; on duloxetine, osteoarthritis; status post total knee replacement and history of UTI's; on prophylactic Keflex nightly and history of admission here from September 30, 2023 to October 06, 2023 for treatment of atypical pneumonia with superimposed bronchitis fluid overload causing patient to be diagnosed with acute exacerbation of chronic diastolic CHF; preserved LVEF with normal BNP of 51.5 pg/mL present on that admission but with follow-up cardiology consultation that was doubtful about CHF diagnosis who presents to [facility] ER complaining of chest pain and dyspnea on exertion. Ms. Nix reports her symptoms began approximately 7 days prior to admission with a gradual-onset of generalized weakness and dyspnea on exertion that progressed to shortness of breath at rest while at her assisted living facility. She admits to chest pain with exertion and nonproductive cough with recent unintentional 7 pound weight gain but she denies being on home oxygen. She also denies associated fever, chills, nausea, vomiting, diarrhea, constipation, headache or rash - but she does admit to Generalized Weakness. In the ER she was noted to have a normal range NT pro-BNP of 736 pg/mL present on admission with a corresponding CXR that revealed no acute findings but with patient noted to have hypoxia with ambulation in the ~76% range on room air consistent with Respiratory Insufficiency in a clinical setting suspicious for volume overload due to suspected dietary indiscretion with sodium in addition to secondary pulmonary hypertension likely from a combination of ROXIE and OHS complicated by Chest Pain with exertion in addition to confounding laboratory evidence of Dehydration with BUN/creatinine ratio of 31.6 present on admission and she was then admitted to the PCU for ongoing care for status expected to extend beyond 2 midnights. [facility] Medical History (Updated 10/18/24 @ 06:[address] Marlon Shay DO) DVT (deep venous thrombosis) History of echocardiogram Cardiology follow-up encounter On home oxygen therapy Essential tremor Obesity CHF (congestive heart failure) Primary osteoarthritis, left shoulder Left shoulder pain Urinary tract infection Normocytic anemia Hydronephrosis Wears hearing aid Wears dentures Uses wheelchair Walker as ambulation aid Bladder disease Low iron Back pain Injury of head and neck Non-smoker Shortness of breath on exertion History of pain when walking History of edema Hx of peripheral neuropathy History of stress test Hiatal hernia Restless legs High cholesterol Chronic UTI GERD (gastroesophageal reflux disease) Arthritis GI bleed Pulmonary embolism Chronic neuropathic pain Anxiety and depression HLD (hyperlipidemia) Cystitis Segmental and somatic dysfunction of cervical region Diabetic neuropathy associated with type 2 diabetes mellitus Chronic anticoagulation Morbid obesity with BMI of 45.0-49.9, adult Chronic pain following surgery or procedure Segmental and somatic dysfunction of pelvic region Facet arthropathy, lumbar Segmental and somatic dysfunction of thoracic region Segmental and somatic dysfunction of lumbar region Closed left arm fracture Polycystic ovaries Osteoarthritis Neuropathy Diabetes Carpal tunnel syndrome Cataracts, both eyes History of DVT (deep vein thrombosis) Home Medications ?Medication ?Instructions ?Recorded ?Last Taken ?Type cholecalciferol (vitamin D3) 25 2,000 unit PO DAILY vitamin 12/29/15 09/05/24 History mcg (1,000 unit) tablet (Vitamin D3) pravastatin 40 mg tablet 40 mg PO QHS cholesterol 08/05/18 09/05/24 History primidone 50 mg tablet 100 mg PO TID tremors 03/18/19 09/05/24 History simethicone 80 mg chewable tablet 80 mg PO TIDCM indigestion 03/18/19 09/05/24 History ascorbic acid (vitamin C) 500 mg 500 mg PO DAILY supplement 09/28/20 09/05/24 History tablet cyanocobalamin (vitamin B-12) 1,000 mcg IM QMONTH supplement 10/23/20 05/26/24 History 1,000 mcg/mL injection solution nystatin 100,000 unit/gram topical 1 applic topical Q8H PRN Skin 07/30/21 Unknown History powder Irritation apixaban 5 mg tablet (Eliquis) 5 mg PO BID blood thinner 09/30/21 09/05/24 History d-mannose 500 mg capsule 1,000 mg PO BID ssee 12/05/21 09/05/24 History ferrous sulfate 325 mg (65 mg 325 mg PO QHS iron 03/19/23 09/05/24 History iron) tablet (Feosol) omeprazole 40 mg capsule,delayed 40 mg PO DAILY GERD 04/16/23 09/05/24 History release ondansetron HCl 8 mg tablet 8 mg PO Q8H PRN Nausea 04/16/23 Unknown History oxybutynin chloride 5 mg 5 mg PO DAILY OVERACTIVE BLADDER 04/16/23 09/05/24 History tablet,extended release 24 hr phenazopyridine 200 mg tablet 200 mg PO Q8H PRN Bladder Spasms 04/16/23 06/27/24 History (Pyridium) acetaminophen 325 mg tablet 650 mg PO Q4H PRN pain/ elevated 07/31/23 09/05/24 History temp furosemide 40 mg tablet 40 mg PO BIDLX #0 tabs 10/06/23 09/05/24 Rx vibegron 75 mg tablet (Gemtesa) 75 mg PO DAILY #0 tabs 10/06/23 09/05/24 Rx dextrose 40 % oral gel (Glucose 10 g PO Q15M PRN hypoglycemia 10/15/23 05/05/24 History Gel) fluticasone propionate 50 2 spray intranasal DAILY PRN 10/15/23 09/05/24 History mcg/actuation nasal allergy symptoms spray,suspension (24 Hour Allergy Relief) glucagon HCl 1 mg solution for 1 mg subcut Q20M PRN hypoglycemia 10/15/23 Unknown History injection (Glucagon (HCl) Emergency Kit) guaifenesin 100 mg/5 mL oral liquid 200 mg PO Q4H PRN cough 10/15/23 Unknown History mineral oil (Fleet Mineral Oil 118 ml FL DAILY PRN constipation 10/15/23 Unknown History enema) halobetasol propionate 0.05 % 1 applic topical BID 10/31/23 06/27/24 History topical cream duloxetine 30 mg capsule,delayed 90 mg PO DAILY depression 11/20/23 09/05/24 History release magnesium hydroxide 400 mg/5 mL 30 ml PO QHS PRN constipation 03/26/24 Unknown History oral suspension (Milk of Magnesia) L.acidophil,salivari-Bifido 1 cap PO DAILY 04/07/24 09/05/24 History bifidum-Strep thermoph 175 mg capsule cephalexin 500 mg capsule 500 mg PO QHS 05/04/24 09/05/24 History albuterol sulfate 2.5 mg/3 mL 2.5 mg inhalation Q2H PRN 05/08/24 Unknown History (0.083 %) solution for nebulization shortness of breath or wheezing albuterol sulfate 90 mcg/actuation 2 inh inhalation Q4H PRN shortness 05/08/24 Unknown History aerosol inhaler of breath or wheezing aluminum-mag hydroxide-simethicone 5 ml PO Q4H PRN GI bleeding 05/08/24 09/05/24 History 200 mg-200 mg-20 mg/5 mL oral susp prophylaxis (Advanced Antacid-Antigas) docusate sodium 100 mg capsule 100 mg PO DAILY 05/08/24 09/05/24 History (Col-Rite) gabapentin 300 mg capsule 300 mg PO TID 10/17/24 Unknown History hydrocodone-acetaminophen 5-325mg 1 tab PO TID PRN PRN pain 10/17/24 Unknown History 5mg-325mg Allergy/AdvReac Type Severity Reaction Status Date / Time ampicillin (From Unasyn) Allergy Severe Blisters Verified 10/17/24 17:40 on tongue /throat difficulty breathing sore tongue/ warfarin sodium (From Allergy Severe Low red Verified 10/17/24 17:40 Coumadin) blood cells Family History Father Colon cancer Hypertension Mother Hypertension Diabetes Grandmother Hypertension Surgical History History of bilateral cataract extraction History of tonsillectomy Hx of cystoscopy Hx of cystoscopy History of cystoscopy S/P hysterectomy H/O cardiac catheterization (05/22/11) History of cholecystectomy History of embolic filter insertion History of carpal tunnel surgery History of hysterectomy Total knee replacement status History of gastric bypass Social History housing: assisted living facility Smoking Status: Never smoker alcohol intake: current alcohol intake frequency: holidays/special occasions only substance use type: does not use what type of physical activity do you participate in: walking and aerobics frequency: 1-2 times per week ROS ROS Narrative Review of Systems: Constitutional: Patient denies fever or chills. Eyes: Patient denies changes in vision or discharge from eyes. ENT: Patient denies runny nose, sore throat or ear pain. Resp: Patient admits to nonproductive cough and dyspnea on exertion as per HPI. CV: Patient admits to chest pain with exertion that is pressure-like as per HPI. She denies palpitations or heart racing. She admits increased lower extremity edema with ~7 pound weight gain. GI: Patient denies abdominal pain, nausea, vomiting, diarrhea or constipation. : Patient denies dysuria, hematuria urinary frequency. MSK: Patient admits to generalized weakness but she denies arthralgias or myalgias. Skin: Patient denies rash, abscess, wounds or jaundice. Psych: Patient denies symptoms of uncontrolled depression or anxiety. Neuro: Patient denies headache, paresthesias or focal neurologic deficits. Allergy: Patient denies lip swelling, tongue swelling or urticaria. Hematology: Patient admits to easy bleeding and bruisability on apixaban. Endocrinology: Patient denies polyuria, polydipsia, polyphagia or heat/cold intolerance. 14 point ROS otherwise negative save for positives noted above in HPI. Vital Signs Vital Signs Vital Signs: 10/17/24 17:37 10/17/24 17:55 10/17/24 18:14 Temperature 98.2 F Temperature Source Oral Pulse Rate 81 Respiratory Rate 25 H Respiratory Effort Normal Non-Labored Blood Pressure 154/58 H Blood Pressure Mean 90 Pulse Ox 96 96 Oxygen Delivery Method Nasal Cannula Nasal Cannula Oxygen Flow Rate (L/min) 2 2 10/17/24 18:40 10/17/24 19:03 10/17/24 20:00 Temperature Temperature Source Pulse Rate 72 70 75 Respiratory Rate 18 18 21 H Respiratory Effort Blood Pressure 116/48 L 122/59 H 118/87 H Blood Pressure Mean 70 80 97 Pulse Ox 96 100 98 Oxygen Delivery Method Nasal Cannula Nasal Cannula Oxygen Flow Rate (L/min) 2 2 Weight Weight: 327 lb 2.656 oz Body Mass Index (BMI) 54.4 Physical Exam Const alert, oriented x3 and no apparent distress Constitutional Narrative: Patient is morbidly obese chronically ill in appearance. General Appearance: cooperative HEENT normocephalic, head/scalp atraumatic, hearing grossly normal bilaterally and moist oral mucous membranes Eyes PERRL and EOMs intact bilaterally Neck no lymphadenopathy, supple and no JVD Resp Resp Narrative: Slight crackles noted at Right base. Auscultation: crackles Cardio regular rate and regular rhythm GI normal to inspection, nondistended, normoactive bowel sounds, soft to palpation, non-tender and non-distended GI Narrative: Morbidly obese. Extremity Extremity Narrative: ~1+ bilateral symmetrical lower extremity pitting edema up to the ankles. Skin Skin Narrative: Patient has no evidence of rash, abscess, wounds or jaundice. Neuro oriented x3, CN's II-XII intact bilaterally, moves all extremities and no focal motor deficits Sensorium / Orientation: awake, alert, oriented to person, oriented to place and oriented to time Speech: speech normal Psych affect normal Results Medical Records Data Attestation: I reviewed the patient's medical records Lab / Micro Data Attestation: I reviewed the patient's lab results. 10/17/24 17:53 10/17/24 17:53 Labs: Laboratory Results - last 24 hr 10/17/24 17:53: WBC 4.2 L, RBC 3.26 L, Hgb 10.7 L, Hct 34.3 L, MCV 105.2 H, MCH 32.8 H, MCHC 31.2 L, RDW Std Deviation 50.7 H, RDW Coeff of Chani 13.2, Plt Count 213, MPV 9.6, Immature Gran % (Auto) 0.200, Neut % (Auto) 63.3, Lymph % (Auto) 22.1, [place] % (Auto) 10.5 H, Eos % (Auto) 2.9, Baso % (Auto) 1.0, Absolute Neuts (auto) 2.7, Absolute Lymphs (auto) 0.93, Nucleated RBC % 0, Sodium 139, Potassium 4.7, Chloride 105, Carbon Dioxide 24.7, Anion Gap 9, BUN 24 H, Creatinine 0.77, Estim Creat Clear Calc 85.60, Est GFR (MDRD) Non-Af 79, BUN/Creatinine Ratio 31.6 H, Glucose 95, Calcium 8.3, Magnesium 2.0, Troponin T High Sens 12, NT pro BNP II 736 10/17/24 19:56: Troponin T Hi Sens 2 Hr 13 Rhythm Strip Rhythm Strip: Sinus Rhythm Rate: 81 Ectopy: None Imaging Radiology Impression Chest X-Ray 10/17/24 18:17 IMPRESSION: NO ACUTE FINDINGS. Reading Location: [id number] Imaging Services [address] [place] [id number] Abdomen/Pelvis without Cont MR#: [id number] Acct: [id number] Name: ADAM NIX Rep #: [id number] : 1945 F 79 From: Conner Quintana MD PCP: Dr. Bobby Pinto MD Status: ADM IN Study: Abdomen/Pelvis without Cont Date of Exam: 10/17/24 Exam# [id number] Ordering Dr: Marlon Shay DO PROCEDURE: ABDOMEN/PELVIS WITHOUT CONT 10/17/2024 REASON FOR EXAM: SUSPECTED CHISHOLM WITH CIRRHOSIS. TECHNIQUE: Abdomen and pelvis CT without intravenous contrast. Noncontrast technique limits evaluation of the abdominal and pelvic viscera. Coronal and Sagittal reconstruction series were provided. One or more dose reduction techniques were used (e.g., Automated exposure control, adjustment of the mA and/or kV according to patient size, use of iterative reconstruction technique). PATIENT PREPARATION: Per protocol ORAL CONTRAST TYPE: None. AMOUNT: mL FINDINGS: Lung bases: Lung bases are clear. Liver: Normal size. No obvious mass. Gallbladder: Not visualized. Spleen: Normal size. Pancreas: Normal size. No surrounding inflammation. Adrenals: Unremarkable. Kidneys: No urolithiasis. No hydronephrosis. Extrarenal pelvis of both kidneys. Bladder: Unremarkable. Reproductive Organs: Unremarkable. Bowel: No bowel obstruction. Status post gastric surgery, likely gastric bypass. Appendix: The appendix is not identified. There is no inflammatory process identified in the right lower quadrant to suggest appendicitis. Lymph nodes: Unremarkable. Vasculature: The abdominal aorta and IVC contours are normal. Noncontrast technique limits evaluation. Inferior vena cava filter. Peritoneum / Retroperitoneum: Small umbilical hernia with incarceration of a loop of small bowel but without bowel obstruction. Bones: Degenerative changes of the spine. CT/Abdomen/Pelvis without Cont IMPRESSION: Normal liver. No renal or ureteral stone. Reading Location: [id number] CC: Dr. Bobby Pinto MD; Dr. Marlon Shay, DO ~ Order Entry Specialist: Signed Assessment & Plan Assessment/Plan (1) Morbid obesity with BMI of 50.0-59.9, adult: (2) ROXIE (obstructive sleep apnea): (3) Obesity hypoventilation syndrome: (4) Volume overload: QUALIFIERS: Hypervolemia type: unspecified Qualified Code(s): E87.70 - Fluid overload, unspecified (5) Chest pain on exertion: (6) Hypoxia: (7) Morbid obesity with BMI of 50.0-59.9, adult: (8) DVT (deep venous thrombosis): QUALIFIERS: Affected thrombotic vein of extremity: femoral Chronicity: chronic DVT location: lower extremity Laterality: unspecified laterality Qualified Code(s): I82.519 - 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 (9) Macrocytic anemia: PLAN: Plan 1. Normal range NT pro-BNP of 736 pg/mL present on admission with a corresponding CXR that revealed no acute findings likely due to volume overload due to suspected dietary indiscretion with sodium in addition to secondary pulmonary hypertension likely from a combination of ROXIE and OHS with confounding laboratory evidence of Dehydration with BUN/creatinine ratio of 31.6 present on admission - Admit to PCU. Patient treated with IV furosemide in the ER to promote diuresis plus give IV albumin to prevent worsening kidney function. Recheck echocardiogram to reevaluate LVEF with last one done in [address]23. Place on cardiac/low-sodium diet and fluid restrict to 1.5 L/day. Give acetaminophen as needed for pain or fever. 2. Chest Pain with exertion complicating #1 - Check chemical stress test in the a.m. to evaluate for potential underlying ischemia. Serialize troponin. 3. Hypoxia with ambulation in the ~76% range on room air consistent with Respiratory Insufficiency compounding #1 & #2 - Wean supplemental oxygen as tolerated. 4. Morbid Obesity; with BMI of 54.4 this admission plus obstructive sleep apnea adding to the burden of disease outlined from #1 - #3 - Weight loss will be recommended. Check TSH. This complicates her case and may hamper recovery. 5. History of DVT/pulmonary embolism; on apixaban with history of IVC filter adding to the medical complexity of #1 - #4 - Maintain on apixaban as previous. 6. Macrocytosis of 105.2 fL with hemoglobin of 10.7g/dL present on admission in the setting of previously known NANCI and Gastric Bypass increasing risk of malabsorption - Check B12 and Folate levels to evaluate for possible deficiency. Continue ferrous sulfate and check iron levels and ferritin. 7. History of admission here from September 30, 2023 to October 06, 2023 for treatment of atypical pneumonia with superimposed bronchitis fluid overload causing patient to be diagnosed with acute exacerbation of chronic diastolic CHF; preserved LVEF with normal BNP of 51.5 pg/mL present on that admission but with follow-up cardiology consultation that was doubtful about CHF diagnosis. 8. Essential hypertension; on furosemide BID - Furosemide has been switched to IV for #1. Give hydralazine IV prn for systolic blood pressure > 160 mmHg. 9. Hyperlipidemia; on pravastatin - Resume statin as before. 10. Peripheral neuropathy; on gabapentin TID - Maintain current regimen. 11. Essential tremor; on primidone - Continue primidone as before. 12. RLS - Stable. 13. History of PCOS - Noted. 14. History of allergic rhinitis; on fluticasone nasal spray as needed daily - Current therapy to continue. 15. OAB; on vibegron, oxybutynin and as needed phenazopyridine 3 times daily as needed for bladder spasms - - Resume these agents as previous. 16. History of renal calculi - Noted. 17. History of GERD; on omeprazole with hiatal hernia - Continue PPI. 18. History of GI bleed - Noted with no complaints related to bleeding at this time. 19. Depression with anxiety; on duloxetine - Maintain current therapy. 20. OA; status post total knee replacement - Stable. Give acetaminophen prn. 21. History of UTI's; on prophylactic Keflex nightly - Continue prophylactic Keflex. 22. DVT prophylaxis - Patient on apixaban for #5 which will be continued. Total time: Approximately (but not less than) 75 minutes. Charges/Coding Visit Charges Inpatient E&M: 66247 Init Hosp L3
[2024-10-17] MEDS: Furosemide 100 MG/10 ML Vial 60 MG IV (20:42)
--- NOTE | 2024-10-17 21:01 | CT_ITS ---
PROCEDURE: ABDOMEN/PELVIS WITHOUT CONT 10/17/2024 REASON FOR EXAM: SUSPECTED CHISHOLM WITH CIRRHOSIS. TECHNIQUE: Abdomen and pelvis CT without intravenous contrast. Noncontrast technique limits evaluation of the abdominal and pelvic viscera. Coronal and Sagittal reconstruction series were provided. One or more dose reduction techniques were used (e.g., Automated exposure control, adjustment of the mA and/or kV according to patient size, use of iterative reconstruction technique). PATIENT PREPARATION: Per protocol ORAL CONTRAST TYPE: None. AMOUNT: mL FINDINGS: Lung bases: Lung bases are clear. Liver: Normal size. No obvious mass. Gallbladder: Not visualized. Spleen: Normal size. Pancreas: Normal size. No surrounding inflammation. Adrenals: Unremarkable. Kidneys: No urolithiasis. No hydronephrosis. Extrarenal pelvis of both kidneys. Bladder: Unremarkable. Reproductive Organs: Unremarkable. Bowel: No bowel obstruction. Status post gastric surgery, likely gastric bypass. Appendix: The appendix is not identified. There is no inflammatory process identified in the right lower quadrant to suggest appendicitis. Lymph nodes: Unremarkable. Vasculature: The abdominal aorta and IVC contours are normal. Noncontrast technique limits evaluation. Inferior vena cava filter. Peritoneum / Retroperitoneum: Small umbilical hernia with incarceration of a loop of small bowel but without bowel obstruction. Bones: Degenerative changes of the spine. CT/Abdomen/Pelvis without Cont IMPRESSION: Normal liver. No renal or ureteral stone. Reading Location: [id number]
--- NOTE | 2024-10-17 22:05 | EKG12_ITS ---
Test Reason : DYSRHYTHMIA Blood Pressure : */* mmHG Vent. Rate : 70 BPM Atrial Rate : 70 BPM P-R Int : 230 ms QRS Dur : 100 ms QT Int : 408 ms P-R-T Axes : 61 22 33 degrees QTcB Int : 440 ms Sinus rhythm with 1st degree A-V block Otherwise normal ECG Confirmed by SILVIA GUNTER, DALTON ([id number]), supervising editor trailer KARISHMA BRAGG ([id number]) on 11/08/2024 9:30:04 AM Referred By: Devika Jaimes Confirmed By: DALTON VEGA MD
[2024-10-17 22:53] LABS: Troponin T High Sens 4 HR 12 ng/L (<=14)
[2024-10-17] MEDS: APIXABAN 5 MG TABLET PO (23:00)
[2024-10-17] MEDS: Cephalexin 500 MG Capsule PO (23:00)
[2024-10-17] MEDS: Ferrous Sulfate 325 MG Tablet PO (23:00)
[2024-10-17] MEDS: Primidone 50 MG Tablet 100 MG PO (23:00)
[2024-10-17] MEDS: Clobetasol Propionate 0.05% Cream 1 APPLIC TOPICAL (23:01)
[2024-10-17] MEDS: HYDROcodone Bitartrate/Apap 5/325 Tablet PO (23:01)
[2024-10-17] MEDS: Pravastatin 40 MG Tablet PO (23:01)
[2024-10-17] MEDS: Albumin Human 25% (100 mL) 25 GM/100 ML BAG IV (23:02)
[2024-10-17] MEDS: Gabapentin 300 MG Capsule PO (23:07)
[2024-10-17 23:36] LABS: Vitamin B12 652 pg/mL (180-914)
--- NOTE | 2024-10-18 00:07 | EKG12_ITS ---
Test Reason : CP ADMIT Blood Pressure : */* mmHG Vent. Rate : 73 BPM Atrial Rate : 73 BPM P-R Int : 216 ms QRS Dur : 98 ms QT Int : 410 ms P-R-T Axes : 54 26 38 degrees QTcB Int : 451 ms Sinus rhythm with 1st degree A-V block Otherwise normal ECG When compared with ECG of 17-Oct-2024 17:49, MANUAL COMPARISON REQUIRED DATA IS UNCONFIRMED Confirmed by SILVIA GUNTER, DALTON ([id number]), editorial manager MARIO ARROYO ([id number]) on 10/21/2024 1:36:20 PM Referred By: Devika Jaimes Confirmed By: DALTON VEGA MD
[2024-10-18 00:21] LABS: Hemoglobin A1c < 4.2 % (<=5.6)
[2024-10-18 03:32] VITALS: BP 122/50; PULSE 73; RESP 22; TEMP 36.7; O2SAT 96
--- NOTE | 2024-10-18 04:58 | ECHOD_ITS ---
Reason For Study Reason For Study: OTHER Procedure This was a 2D Doppler, Color Flow transthoracic echocardiogram. Exam performed in department. Left Ventricle Normal LV size. Moderate concentric left ventricular hypertrophy. The LV systolic function is normal. EF is 65 %. Stage 1 diastolic dysfunction. Right Ventricle Normal right ventricle. Atria There is severe biatrial dilatation. Mitral Valve Severe mitral annular calcification. Mildly thickened and calcified mitral valve leaflets. Mild-Moderate (1-2+) mitral valve insufficiency. Tricuspid Valve Trivial tricuspid valve insufficiency. Right ventricular systolic pressure estimated to be 47 mmHg. Aortic Valve Trisinus/trileaflet aortic valve. Aortic sclerosis, no stenosis. Pulmonic Valve The pulmonic valve is not well visualized. Great Vessels Calcified aortic root. Pericardium/Pleural No pericardial effusion. MMode/2D Measurements & Calculations LVIDd: 4.6 cm IVSd: 1.5 cm LVOT diam: 2.0 cm LVIDs: 2.8 cm LVPWd: 1.6 cm LVOT area: 3.2 cm2 RVDd: 3.5 cm FS: 39.4 % LAV(MOD-bp): 74.8 ml LVAd ap4: 31.2 cm2 SV(MOD-sp4): 59.6 ml LAV(MOD-bp) Indexed: 30.6 ml/m2 LVLd ap4: 8.2 cm SI(MOD-sp4): 24.4 ml/m2 LAV(MOD-sp2): 80.5 ml EDV(MOD-sp4): 94.8 ml LAV(MOD-sp4): 62.2 ml EDV(sp4-el): 100.1 ml LVAs ap4: 16.5 cm2 LVLs ap4: 6.7 cm ESV(MOD-sp4): 35.2 ml ESV(sp4-el): 34.5 ml EF(MOD-sp4): 62.8 % EF(sp4-el): 65.6 % SV(sp4-el): 65.7 ml LA A4 area: 22.7 cm2 LA dimension(2D): 4.8 cm RA A4 area: 12.7 cm2 Time Measurements MV dec time: 0.29 sec Doppler Measurements & Calculations MV E max juan: 137.8 cm/sec Lat Peak E' Juan: 8.7 cm/sec Med Peak E' Juan: 8.2 cm/sec MV A max juan: 131.7 cm/sec E/E' lat: 15.8 E/E' med: 16.9 MV E/A: 1.0 MV V2 max: 167.6 cm/sec Ao V2 max: 179.6 cm/sec MV max P.3 mmHg MV dec slope: 480.6 cm/sec2 Ao max P.2 mmHg MV V2 mean: 91.7 cm/sec Ao V2 mean: 122.4 cm/sec MV mean P.2 mmHg Ao mean P.0 mmHg MV V2 VTI: 61.1 cm Ao V2 VTI: 42.7 cm AV (velocity ratio): 0.87 MVA(VTI): 1.9 cm2 DARWIN(I,D): 2.8 cm2 DARWIN(V,D): 2.7 cm2 LV V1 max: 151.5 cm/sec SV(LVOT): 118.3 ml PA V2 max: 131.1 cm/sec LV V1 max P.2 mmHg PA V2 mean: 94.5 cm/sec LV V1 mean P.9 mmHg LV V1 mean: 115.9 cm/sec LV V1 VTI: 36.9 cm TR max juan: 323.0 cm/sec TR max P.7 mmHg ECHO/Echo Complete Interpretation Summary Moderate concentric left ventricular hypertrophy. The LV systolic function is normal. EF is 65 %. Stage 1 diastolic dysfunction. Severe mitral annular calcification. Mild-Moderate (1-2+) mitral valve insufficiency. Right ventricular systolic pressure estimated to be 47 mmHg. Calcified aortic root. Ordering Physician: Marlon Shay Referring Physician: Devika Jaimes Performed By: Alva Palacio RCS
[2024-10-18 05:33] VITALS: BMI 52.9
[2024-10-18] MEDS: Gabapentin 300 MG Capsule PO ×3 (06:08→21:10)
[2024-10-18 06:25] LABS: Absolute Neutrophil Count 2.3 X10^3/uL (2.0-7.7); Basophil# 0.04 X10^3/uL; Basophil% 0.9 % (0-1); Eosinophil# 0.12 X10^3/uL; Eosinophils% 2.8 % (0-5); Hematocrit 31.5 % (37-47); Hemoglobin 9.7 g/dL (12.0-15.0); Lymphocyte % 30.8 % (19-41); Mean Corp Hgb Conc 30.8 g/dL (32-36); Mean Corpuscular Hgb 32.4 pg (27.0-32.0); Mean Corpuscular Volume 105.4 fL (81-99); Mean Platelet Vol. 9.4 fl (6.2-12.0); Monocyte% 9.5 % (0-10); NRBC Flagged by Analyzer 0 % (0-5); Neutrophil # 2.34 X10^3/uL (2.7-7.7); Neutrophil % 55.5 % (47-70); Platelet Count 206 K/mm3 (150-450); RBC Distribution Width CV 13.1 % (11.6-14.6); RBC Distribution Width SD 50.2 fl (35.1-43.9); Red Blood Count 2.99 M/mm3 (4.2-5.4); White Blood Count 4.2 K/mm3 (4.4-11.0)
[2024-10-18 06:43] LABS: ALB/GLOB Ratio 1.8 RATIO (0.9-2.4); AST(SGOT) 35 U/L (<=31); Alanine Aminotransfer ALT/SGPT 37 U/L (<=34); Albumin, Serum 3.7 g/dL (3.4-4.8); Alkaline Phosphatase 107 U/L (35-104); Anion Gap 11 (5-15); BUN 22 mg/dL (4-19); BUN/Creat Ratio 30.7 RATIO (10-20); Calcium,Total 8.3 mg/dL (7.6-11.0); Carbon Dioxide 25.6 mmol/L (21.0-32.0); Chloride 105 mmol/L (98-108); Cholesterol 134 mg/dL (<=200); EST Glomerular Filtration Rate 88 (>60); Estimated Creatinine Clearance 84.14 ml/min (50-250); Globulin 2.1 g/dL (2.2-4.2); Glucose 91 mg/dL (70-99); High Density Lipoprotein 66 mg/dL; Low Density Lipoprotein Calc. 53 mg/dL; Phosphorus 4.4 mg/dL (2.7-4.5); Potassium 4.2 mmol/L (3.3-5.1); Protein, Total 5.8 g/dL (5.9-8.4); Sodium Level 141 mmol/L (133-145); Triglycerides 74 mg/dL; Very Low Density Lipoprotein 15 mg/dL (5-40); cholesterol:hdl ratio screen 2.03
[2024-10-18 07:02] LABS: Ferritin 194 ng/mL (22-378); Iron 62 ug/dL (50-170); Iron Binding Capacity,Unsat 177 ug/dL (228-428)
--- NOTE | 2024-10-18 09:45 | STE_ITS ---
Reason For Study Reason For Study: Chest Pain Stress Results Protocol: Dobutamine Stress Echo Maximum Predicted HR: 142 bpm Target HR: 121 bpm % Maximum Predicted HR: 89 % DurationHeart Rate Stage (mm:ss) (bpm) BP Comment Baseline 70 126/62No Chest Pain DSE 10 MCG 3:03 76 127/68No Chest Pain DSE 20 MCG 3:00 100 122/53No Chest Pain DSE 30 MCG 3:13 126 92/43No Chest Pain; Heart Thumping Recovery 93 118/57No Chest Pain Stress Duration: 9:16 mm:ss Maximum Stress HR: 126 bpm METS: 1 Baseline Echocardiogram Findings The LV systolic function is normal. EF is 65 %. There is severe biatrial dilatation. Severe mitral annular calcification. Stress Echo Wall motion Data Resting WM Intermediate WM Stress WM Resting Wall Motion Wall Motion Int. Wall Motion Stress No regional wall motion abnormalities Augmentation of all left ventricular Hyperdynamic LV systolic function at noted. wall segments at low-dose dobutamine. peak dobutamine infusion. No regional wall motion abnormality. EKG Data Resting ECG normal sinus rhythm. Maximal heart rate of 126 bpm. 88% of the maximal age-predicted heart rate obtained. No ischemic ECG changes noted with dobutamine infusion. ECHO/Stress Test Echo w/o Contrast Interpretation Summary No ECG or echo evidence of ischemia with dobutamine infusion. Negative dobutamine stress echocardiogram at 88% of the maximal age-predicted h eart rate. Ordering Physician: Rosa Quintero Referring Physician: Rosa Quintero Performed By: Alva Palacio RCS
[2024-10-18 11:22] VITALS: BP 129/51; PULSE 72; RESP 18; TEMP 36.7; O2SAT 99
[2024-10-18] MEDS: Cholecalciferol (VIT D3) 25 MCG TABLET (1,000 UNITS) 50 MCG PO (11:26)
[2024-10-18] MEDS: SimETHICONE 80 MG Chewable Tablet PO ×2 (11:26→17:44)
[2024-10-18] MEDS: DULoxetine Hcl 30 MG Capsule 90 MG PO (11:26)
[2024-10-18] MEDS: Ascorbic Acid 500 MG Tablet PO (11:26)
[2024-10-18] MEDS: Lactobacillis Acidophilus 1 CAP PO (11:26)
[2024-10-18] MEDS: Pantoprazole Sodium 40 MG Tablet PO (11:26)
[2024-10-18] MEDS: Docusate Sodium 100 MG Capsule PO (11:27)
[2024-10-18] MEDS: Tolterodine Tartrate 2 MG CAP.SA PO (11:27)
[2024-10-18] MEDS: Vibegron 75 MG TABLET PO (11:27)
[2024-10-18] MEDS: Primidone 50 MG Tablet 100 MG PO ×2 (11:27→17:44)
[2024-10-18] MEDS: HYDROcodone Bitartrate/Apap 5/325 Tablet PO ×2 (11:35→23:08)
--- NOTE | 2024-10-18 11:35 | CASEMGMT ---
Social Work SW met w/pt, she confirms is here from [facility]. She plans to return at d/c, has no interest in going anywhere else. Pt states if therapy is needed, she would want them to come to her room. PT/OT pending, Jaci d/c strategic planning director will send updates. DANIELA Umaña
[2024-10-18] MEDS: Clobetasol Propionate 0.05% Cream 1 APPLIC TOPICAL ×2 (11:41→21:11)
--- NOTE | 2024-10-18 12:28 | CASEMGMT ---
Addendum entered by Jaci Madison 10/18/24 12:37: Fax confirmation rec'd. Jaci Madison DC Planning Asst. Original Note: Discharge Planning Updates faxed to [facility]. Per Wallace, pt is on O2 through [facility]. BETTY CM updated. Jaci Madison DC Planning Asst.
[2024-10-18 13:49] LABS: Iron Binding Capacity,Total 239 ug/dL (250-450); PERCENT IRON SATURATION 25.9 % (13-59)
--- NOTE | 2024-10-18 14:31 | PN_ITS ---
Subjective Subjective Patient seen and examined. She was admitted with a complaint of chest pain and shortness of breath. She had a stress echo today which was negative. Patient asking about her Lasix and whether it will be resumed. Review of systems is otherwise negative. Objective Data Objective Data Vital Signs: Vital Signs Temp Pulse Resp BP Pulse Ox O2 Del Method O2 Flow Rate 98.0 F 72 18 129/51 H 99 Nasal Cannula 2 10/18/24 11:22 10/18/24 11:22 10/18/24 11:22 10/18/24 11:22 10/18/24 11:22 10/18/24 11:22 10/18/24 12:05 Oxygen Flow Rate (L/min) 2 Oxygen Delivery Method Nasal Cannula Weight: 318 lb 5.56 oz Body Mass Index (BMI) 52.9 Intake & Output: Intake and Output for Last 24 Hours 10/16/24 10/17/24 10/18/24 23:59 23:59 23:59 Intake Total 340 / 340 Output Total 1400 / 1400 Balance -1060 / -1060 Lab / Micro Data 10/18/24 05:13 10/18/24 05:13 Labs: Laboratory Results - last 24 hr 10/17/24 17:53: WBC 4.2 L, RBC 3.26 L, Hgb 10.7 L, Hct 34.3 L, MCV 105.2 H, MCH 32.8 H, MCHC 31.2 L, RDW Std Deviation 50.7 H, RDW Coeff of Chani 13.2, Plt Count 213, MPV 9.6, Immature Gran % (Auto) 0.200, Neut % (Auto) 63.3, Lymph % (Auto) 22.1, [place] % (Auto) 10.5 H, Eos % (Auto) 2.9, Baso % (Auto) 1.0, Absolute Neuts (auto) 2.7, Absolute Lymphs (auto) 0.93, Nucleated RBC % 0, Sodium 139, Potassium 4.7, Chloride 105, Carbon Dioxide 24.7, Anion Gap 9, BUN 24 H, Creatinine 0.77, Estim Creat Clear Calc 85.60, Est GFR (MDRD) Non-Af 79, B UN/Creatinine Ratio 31.6 H, Glucose 95, Hemoglobin A1c < 4.2, Calcium 8.3, Magnesium 2.0, Troponin T High Sens 12, NT pro BNP II 736 10/17/24 19:56: Magnesium 2.0, Troponin T Hi Sens 2 Hr 13 10/17/24 21:20: Serum Folate 2.60 L 10/17/24 22:11: Troponin T Hi Sens 4Hr 12, Vitamin B12 652, TSH 2.730 10/18/24 05:13: WBC 4.2 L, RBC 2.99 L, Hgb 9.7 L, Hct 31.5 L, MCV 105.4 H, MCH 32.4 H, MCHC 30.8 L, RDW Std Deviation 50.2 H, RDW Coeff of Chani 13.1, Plt Count 206, MPV 9.4, Immature Gran % (Auto) 0.500, Neut % (Auto) 55.5, Lymph % (Auto) 30.8, [place] % (Auto) 9.5, Eos % (Auto) 2.8, Baso % (Auto) 0.9, Absolute Neuts (auto) 2.3, Absolute Lymphs (auto) 1.30, Nucleated RBC % 0, Sodium 141, Potassium 4.2, Chloride 105, Carbon Dioxide 25.6, Anion Gap 11, BUN 22 H, Creatinine 0.70, Estim Creat Clear Calc 84.14, Est GFR (MDRD) Non-Af 88, B UN/Creatinine Ratio 30.7 H, Glucose 91, Calcium 8.3, Phosphorus 4.4, Iron 62, T IBC 239 L, Iron Saturation 25.9, Unsaturated IBC 177 L, Ferritin 194, Total Bilirubin 0.50, AST 35 H, ALT 37 H, Alkaline Phosphatase 107 H, Total Protein 5.8 L, Albumin 3.7, Globulin 2.1 L, Albumin/Globulin Ratio 1.8, Triglycerides 74, Cholesterol 134, LDL Cholesterol, Calc 53, VLDL Cholesterol 15, HDL Cholesterol 66, Cholesterol/HDL Ratio 2.03 Radiography Diagnostic Testing: Radiology Impression Chest X-Ray 10/17/24 18:17 IMPRESSION: NO ACUTE FINDINGS. Reading Location: [facility] Abdomen/Pelvis CT 10/17/24 21:01 IMPRESSION: Normal liver. No renal or ureteral stone. Reading Location: [facility] Echocardiogram 10/18/24 04:58 Interpretation Summary Moderate concentric left ventricular hypertrophy. The LV systolic function is normal. EF is 65 %. Stage 1 diastolic dysfunction. Severe mitral annular calcification. Mild-Moderate (1-2+) mitral valve insufficiency. Right ventricular systolic pressure estimated to be 47 mmHg. Calcified aortic root. Ordering Physician: Marlon Shay Referring Physician: Devika Jaimes Performed By: Alva Palacio RCS Stress Echocardiogram 10/18/24 09:45 Interpretation Summary No ECG or echo evidence of ischemia with dobutamine infusion. Negative dobutamine stress echocardiogram at 88% of the maximal age-predicted heart rate. Ordering Physician: Rosa Quintero Referring Physician: Rosa Quintero Performed By: Alva Palacio RCS Rhythm Strip Rhythm Strip: Sinus Rhythm Rate: 81 Ectopy: None Physical Exam Const alert, oriented x3, no apparent distress and well nourished Constitutional Narrative: class III obesity General Appearance: cooperative HEENT normocephalic, head/scalp atraumatic and moist oral mucous membranes Eyes PERRL and EOMs intact bilaterally Neck no lymphadenopathy and supple Lymph Lymphatic: no lymphadenopathy noted Resp Resp Narrative: mildly diminished breath sounds bibasally, no wheezes or crackles. On 2L of oxygen by nasal canula Cardio regular rate, regular rhythm, S1 normal heart sound, S2 normal heart sound and no murmurs GI normal to inspection, nondistended, normoactive bowel sounds, soft to palpation, non-tender and non-distended Extremity General Extremity: no tenderness to palpation of joints or extremities Skin Skin Narrative: bilateral 1+ pitting pedal edema General Skin Exam: no breakdown Neuro CN's II-XII intact bilaterally, no focal motor deficits and no sensory deficits noted Motor Exam: strength 5/5 throughout and general weakness Psych thought process normal, cooperative and affect normal Appearance: appropriate Assessment & Plan Assessment/Plan (1) Chest pain on exertion: (2) Volume overload: QUALIFIERS: Hypervolemia type: unspecified Qualified Code(s): E 87.70 - Fluid overload, unspecified PLAN: Plan #Chest pain rule out ACS * Admitted with a complaint of pressure-like chest pain. Troponins x 3 were negative and EKG showed no acute ST changes. * She had a stress echo this morning which was negative for any evidence of ischemia. It showed EF of 65% with stage I diastolic dysfunction and severe mitral annular calcification as well as mild to moderate mitral valve insufficiency. RVSP was 47mmhg. #Hypoxia: * She was saturating in the 70s on room air on admission. Currently on 2 L of oxygen. BNP was not elevated but patient does have some lower extremity edema and thinks this is contributing to her shortness of breath. Breathing treatments with bronchodilators. * Resume her Lasix. Titrate oxygen to maintain saturation above 90%. 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 Also has IVC filter in situ #Benign essential hypertension: On Lasix #Hyperlipidemia: On statin #History of peripheral neuropathy: On gabapentin 3 times daily #Benign essential tremors: On primidone #Depression with anxiety: On duloxetine #History of recurrent UTIs: On Keflex prophylactically DVT prophylaxis: On Eliquis Charges/Coding Visit Charges Inpatient E&M: 01048 Subs Hosp L2
[2024-10-18] MEDS: APIXABAN 5 MG TABLET PO ×2 (14:36→23:02)
[2024-10-18] MEDS: Phenazopyridine 95 MG Tablet 190 MG PO ×2 (14:37→23:02)
[2024-10-18] MEDS: guaiFENesin 10 ML UDC (200MG/10ML) PO (14:39)
[2024-10-18 15:16] VITALS: BP 131/51; PULSE 81; RESP 20; TEMP 36.5; O2SAT 95
[2024-10-18] MEDS: Acetaminophen 325 MG Tablet 650 MG PO (15:20)
[2024-10-18] MEDS: 0.9% Saline Lock 10 ML Syringe IV ×2 (15:21→21:07)
[2024-10-18] MEDS: Furosemide 40 MG/4 ML Vial IV (15:21)
[2024-10-18] MEDS: Ipratropium/Albuterol Sulfate 3 ML AMPUL.NEB INHALATION (17:14)
[2024-10-18 17:15] VITALS: PULSE 76; RESP 20; O2SAT 95
[2024-10-18 20:07] VITALS: PULSE 74
[2024-10-18 21:05] VITALS: BP 127/83; PULSE 79; RESP 18; TEMP 36.9; O2SAT 97
[2024-10-18] MEDS: Pravastatin 40 MG Tablet PO (21:11)
[2024-10-18] MEDS: Cephalexin 500 MG Capsule PO (21:12)
[2024-10-18] MEDS: Ferrous Sulfate 325 MG Tablet PO (21:12)
[2024-10-18] MEDS: Ondansetron 8 MG Tablet PO (23:08)
[2024-10-19] VITALS (12 sets, daily range): BP systolic 102–126; BP diastolic 42–66; PULSE 69–86; RESP 15–20; TEMP 36.5–36.8; O2SAT 87–100; BMI 52.3
[2024-10-19] MEDS: Ipratropium/Albuterol Sulfate 3 ML AMPUL.NEB INHALATION ×4 (00:31→20:03)
[2024-10-19] MEDS: Gabapentin 300 MG Capsule PO ×3 (05:25→19:47)
[2024-10-19 06:43] LABS: Absolute Lymphocyte Count 1.32 X10^3/uL (0.83-4.51); Absolute Neutrophil Count 2.3 X10^3/uL (2.0-7.7); Basophil# 0.04 X10^3/uL; Basophil% 0.9 % (0-1); Eosinophil# 0.12 X10^3/uL; Eosinophils% 2.8 % (0-5); Hemoglobin 9.8 g/dL (12.0-15.0); Lymphocyte # 1.32 X10^3/ul (0.83-4.51); Lymphocyte % 31.1 % (19-41); Mean Corp Hgb Conc 30.6 g/dL (32-36); Mean Corpuscular Hgb 32.8 pg (27.0-32.0); Mean Platelet Vol. 9.6 fl (6.2-12.0); Monocyte# 0.42 X10^3/uL; Monocyte% 9.9 % (0-10); NRBC Flagged by Analyzer 0 % (0-5); Neutrophil # 2.31 X10^3/uL (2.7-7.7); Neutrophil % 54.6 % (47-70); Platelet Count 199 K/mm3 (150-450); RBC Distribution Width CV 13.1 % (11.6-14.6); RBC Distribution Width SD 51.4 fl (35.1-43.9); Red Blood Count 2.99 M/mm3 (4.2-5.4); White Blood Count 4.2 K/mm3 (4.4-11.0)
[2024-10-19 07:03] LABS: Anion Gap 9 (5-15); BUN 24 mg/dL (4-19); BUN/Creat Ratio 28.5 RATIO (10-20); Calcium,Total 8.4 mg/dL (7.6-11.0); Carbon Dioxide 27.5 mmol/L (21.0-32.0); Chloride 105 mmol/L (98-108); Creatinine, Serum 0.83 mg/dL (0.70-1.20); EST Glomerular Filtration Rate 72 (>60); Glucose 100 mg/dL (70-99); Phosphorus 4.7 mg/dL (2.7-4.5); Potassium 4.3 mmol/L (3.3-5.1); Sodium Level 141 mmol/L (133-145)
[2024-10-19] MEDS: Primidone 50 MG Tablet 100 MG PO ×3 (08:45→16:14)
[2024-10-19] MEDS: Pantoprazole Sodium 40 MG Tablet PO (08:45)
[2024-10-19] MEDS: Cholecalciferol (VIT D3) 25 MCG TABLET (1,000 UNITS) 50 MCG PO (08:45)
[2024-10-19] MEDS: DULoxetine Hcl 30 MG Capsule 90 MG PO (08:45)
[2024-10-19] MEDS: Phenazopyridine 95 MG Tablet 190 MG PO ×2 (08:45→21:34)
[2024-10-19] MEDS: Furosemide 40 MG/4 ML Vial IV ×2 (08:46→17:04)
[2024-10-19] MEDS: Tolterodine Tartrate 2 MG CAP.SA PO (08:46)
[2024-10-19] MEDS: Vibegron 75 MG TABLET PO (08:46)
[2024-10-19] MEDS: Docusate Sodium 100 MG Capsule PO (08:46)
[2024-10-19] MEDS: Clobetasol Propionate 0.05% Cream 1 APPLIC TOPICAL ×2 (08:46→19:43)
[2024-10-19] MEDS: Ascorbic Acid 500 MG Tablet PO (08:46)
[2024-10-19] MEDS: APIXABAN 5 MG TABLET PO ×2 (08:46→19:45)
[2024-10-19] MEDS: Lactobacillis Acidophilus 1 CAP PO (08:46)
[2024-10-19] MEDS: SimETHICONE 80 MG Chewable Tablet PO ×3 (08:46→16:14)
[2024-10-19] MEDS: 0.9% Saline Lock 10 ML Syringe IV ×2 (08:54→17:06)
[2024-10-19] MEDS: HYDROcodone Bitartrate/Apap 5/325 Tablet PO ×2 (08:54→21:34)
[2024-10-19 09:21] LABS: Bedside Glucose 116 mg/dL (74-106)
--- NOTE | 2024-10-19 09:47 | CASEMGMT ---
Social Work Phone call placed to Wallace at [facility] and left message notifying that pt is ready for dc today. SW requested return call to confirm they can accept pt back. Will await return call. MEG Rubio
[2024-10-19] MEDS: Acetaminophen 325 MG Tablet 650 MG PO (11:43)
--- NOTE | 2024-10-19 11:47 | PN_ITS ---
Subjective Subjective Patient seen and examined. She felt much better today and had no complaints. She felt like her shortness of breath had resolved. Plan was to discharge her today but she did have walking pulse ox which showed that she required 4 L of oxygen which was over and above her usual 2 L of oxygen she required at baseline and with ambulation. Will therefore hold discharge today and diuresis somewhat today. She is in cumulative negative balance by 840 mls. Objective Data Objective Data Vital Signs: Vital Signs Temp Pulse Resp BP Pulse Ox O2 Del Method O2 Flow Rate 97.8 F 69 18 102/46 L 94 Nasal Cannula 2 10/19/24 10:43 10/19/24 10:43 10/19/24 10:43 10/19/24 10:43 10/19/24 10:43 10/19/24 10:43 10/19/24 10:43 Oxygen Flow Rate (L/min) 2 Oxygen Delivery Method Nasal Cannula Weight: 314 lb 9.594 oz Body Mass Index (BMI) 52.3 Intake & Output: Intake and Output for Last 24 Hours 10/17/24 10/18/24 10/19/24 23:59 23:59 23:59 Intake Total 1760 / 1760 100 / 100 Output Total 2450 / 2450 250 / 250 Balance -690 / -690 -150 / -150 Lab / Micro Data 10/19/24 05:37 10/19/24 05:37 Labs: Laboratory Results - last 24 hr 10/18/24 05:13: TIBC 239 L, Iron Saturation 25.9 10/19/24 05:37: WBC 4.2 L, RBC 2.99 L, Hgb 9.8 L, Hct 32.0 L, MCV 107.0 H, MCH 32.8 H, MCHC 30.6 L, RDW Std Deviation 51.4 H, RDW Coeff of Chani 13.1, Plt Count 199, MPV 9.6, Immature Gran % (Auto) 0.700, Neut % (Auto) 54.6, Lymph % (Auto) 31.1, [place] % (Auto) 9.9, Eos % (Auto) 2.8, Baso % (Auto) 0.9, Absolute Neuts (auto) 2.3, Absolute Lymphs (auto) 1.32, Nucleated RBC % 0, Sodium 141, Potassium 4.3, Chloride 105, Carbon Dioxide 27.5, Anion Gap 9, BUN 24 H, Creatinine 0.83, Estim Creat Clear Calc 80.50, Est GFR (MDRD) Non-Af 72, B UN/Creatinine Ratio 28.5 H, Glucose 100 H, Calcium 8.4, Phosphorus 4.7 H 10/19/24 09:00: POC Glucose 116 H Radiography Diagnostic Testing: Radiology Impression Echocardiogram 10/18/24 04:58 Interpretation Summary Moderate concentric left ventricular hypertrophy. The LV systolic function is normal. EF is 65 %. Stage 1 diastolic dysfunction. Severe mitral annular calcification. Mild-Moderate (1-2+) mitral valve insufficiency. Right ventricular systolic pressure estimated to be 47 mmHg. Calcified aortic root. Ordering Physician: Marlon Shay Referring Physician: Devika Jaimes Performed By: Alva Palacio RCS Rhythm Strip Rhythm Strip: Sinus Rhythm Rate: 81 Ectopy: None Physical Exam Const alert, oriented x3, no apparent distress and well nourished Constitutional Narrative: class III obesity General Appearance: cooperative HEENT normocephalic, head/scalp atraumatic, hearing grossly normal bilaterally and moist oral mucous membranes Eyes PERRL and EOMs intact bilaterally Neck no lymphadenopathy, supple and no JVD Lymph Lymphatic: no lymphadenopathy noted Resp Resp Narrative: mildly diminished breath sounds bibasally, no wheezes or crackles. On 2L of oxygen by nasal canula Cardio regular rate, regular rhythm, S1 normal heart sound, S2 normal heart sound and no murmurs GI normal to inspection, nondistended, normoactive bowel sounds, soft to palpation, non-tender and non-distended GI Narrative: Morbidly obese. Extremity Extremity Narrative: ~1+ bilateral symmetrical lower extremity pitting edema up to the ankles. General Extremity: no tenderness to palpation of joints or extremities Skin Skin Narrative: bilateral 1+ pitting pedal edema General Skin Exam: no breakdown Neuro oriented x3, CN's II-XII intact bilaterally, moves all extremities, no focal motor deficits and no sensory deficits noted Sensorium / Orientation: awake, alert, oriented to person, oriented to place and oriented to time Speech: speech normal Motor Exam: strength 5/5 throughout and general weakness Psych thought process normal, cooperative and affect normal Appearance: appropriate Assessment & Plan Assessment/Plan (1) Chest pain on exertion: (2) Volume overload: QUALIFIERS: Hypervolemia type: unspecified Qualified Code(s): E 87.70 - Fluid overload, unspecified PLAN: Plan #Chest pain rule out ACS * Admitted with a complaint of pressure-like chest pain. Troponins x 3 were negative and EKG showed no acute ST changes. * She had a stress echo this morning which was negative for any evidence of ischemia. It showed EF of 65% with stage I diastolic dysfunction and severe mitral annular calcification as well as mild to moderate mitral valve insufficiency. RVSP was 47mmhg. #Hypoxia in the setting of chronic respiratory failure likely due to fluid overload * She was saturating in the 70s on room air on admission. Currently on 2 L of oxygen. BNP was not elevated but patient does have some lower extremity edema and thinks this is contributing to her shortness of breath. Breathing treatments with bronchodilators. * on IV lasix. In cumulative negative balance by 84mls * she had walking pulse ox today which showed that she required 4L of oxygen with ambulation, when she usually requires 2. * Resume her Lasix. Titrate oxygen to maintain saturation above 90%. 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 Also has IVC filter in situ #Benign essential hypertension: On Lasix #Hyperlipidemia: On statin #History of peripheral neuropathy: On gabapentin 3 times daily #Benign essential tremors: On primidone #Depression with anxiety: On duloxetine #History of recurrent UTIs: On Keflex prophylactically DVT prophylaxis: On Eliquis Disposition; for likely dc to assisted living tomorrow Charges/Coding Visit Charges Inpatient E&M: 24116 Subs Hosp L2
[2024-10-19 15:21] LABS: Bedside Glucose 170 mg/dL (74-106)
[2024-10-19] MEDS: Pravastatin 40 MG Tablet PO (19:45)
[2024-10-19] MEDS: Cephalexin 500 MG Capsule PO (19:45)
[2024-10-19] MEDS: Ferrous Sulfate 325 MG Tablet PO (19:46)
[2024-10-20 03:13] VITALS: BMI 52.2
[2024-10-20] MEDS: Gabapentin 300 MG Capsule PO ×2 (05:51→14:22)
[2024-10-20 05:54] VITALS: BP 140/94; PULSE 76; RESP 18; TEMP 36; O2SAT 97
[2024-10-20] MEDS: 0.9% Saline Lock 10 ML Syringe IV (05:55)
[2024-10-20 06:29] LABS: Absolute Lymphocyte Count 1.19 X10^3/uL (0.83-4.51); Absolute Neutrophil Count 2.3 X10^3/uL (2.0-7.7); Basophil# 0.04 X10^3/uL; Eosinophil# 0.14 X10^3/uL; Eosinophils% 3.4 % (0-5); Hematocrit 32.5 % (37-47); Hemoglobin 10.1 g/dL (12.0-15.0); Lymphocyte # 1.19 X10^3/ul (0.83-4.51); Mean Corp Hgb Conc 31.1 g/dL (32-36); Mean Corpuscular Hgb 33.1 pg (27.0-32.0); Mean Corpuscular Volume 106.6 fL (81-99); Mean Platelet Vol. 9.2 fl (6.2-12.0); Monocyte% 9.7 % (0-10); NRBC Flagged by Analyzer 0 % (0-5); Neutrophil # 2.32 X10^3/uL (2.7-7.7); Neutrophil % 56.4 % (47-70); Platelet Count 185 K/mm3 (150-450); RBC Distribution Width SD 50.8 fl (35.1-43.9); Red Blood Count 3.05 M/mm3 (4.2-5.4); White Blood Count 4.1 K/mm3 (4.4-11.0)
[2024-10-20 06:58] VITALS: PULSE 77; RESP 20; O2SAT 98
[2024-10-20] MEDS: Ipratropium/Albuterol Sulfate 3 ML AMPUL.NEB INHALATION (06:58)
[2024-10-20 08:13] LABS: Anion Gap 10 (5-15); BUN 26 mg/dL (4-19); BUN/Creat Ratio 32.5 RATIO (10-20); Calcium,Total 8.5 mg/dL (7.6-11.0); Carbon Dioxide 27.4 mmol/L (21.0-32.0); Chloride 104 mmol/L (98-108); EST Glomerular Filtration Rate 76 (>60); Estimated Creatinine Clearance 83.47 ml/min (50-250); Glucose 89 mg/dL (70-99); Potassium 4.5 mmol/L (3.3-5.1); Sodium Level 141 mmol/L (133-145)
[2024-10-20] MEDS: APIXABAN 5 MG TABLET PO (10:17)
[2024-10-20] MEDS: Phenazopyridine 95 MG Tablet 190 MG PO (10:17)
[2024-10-20] MEDS: Cholecalciferol (VIT D3) 25 MCG TABLET (1,000 UNITS) 50 MCG PO (10:17)
[2024-10-20] MEDS: DULoxetine Hcl 30 MG Capsule 90 MG PO (10:17)
[2024-10-20] MEDS: Lactobacillis Acidophilus 1 CAP PO (10:18)
[2024-10-20] MEDS: Docusate Sodium 100 MG Capsule PO (10:18)
[2024-10-20] MEDS: Primidone 50 MG Tablet 100 MG PO ×2 (10:18→11:41)
[2024-10-20] MEDS: SimETHICONE 80 MG Chewable Tablet PO ×2 (10:18→11:41)
[2024-10-20] MEDS: Furosemide 40 MG/4 ML Vial IV (10:19)
[2024-10-20] MEDS: Vibegron 75 MG TABLET PO (10:19)
[2024-10-20] MEDS: Pantoprazole Sodium 40 MG Tablet PO (10:19)
[2024-10-20] MEDS: Clobetasol Propionate 0.05% Cream 1 APPLIC TOPICAL (10:19)
[2024-10-20] MEDS: Tolterodine Tartrate 2 MG CAP.SA PO (10:19)
[2024-10-20] MEDS: Ascorbic Acid 500 MG Tablet PO (10:20)
[2024-10-20] MEDS: HYDROcodone Bitartrate/Apap 5/325 Tablet PO (10:24)
[2024-10-20 10:27] VITALS: BP 124/47; PULSE 64; RESP 16; TEMP 36.1; O2SAT 96
[2024-10-20 10:40] VITALS: O2SAT 93; O2SAT 96
--- NOTE | 2024-10-20 11:09 | CASEMGMT ---
Discharge Planning Updates sent to [facility]. Jaci Madison DC Planning Asst.
--- NOTE | 2024-10-20 12:24 | PCM.DC.SUM ---
Providers Date of Admission: 10/17/24 Date of Discharge: 10/20/24 Primary Care Physician: Dr. Bobby Pinto MD Reason For Visit: VOLUME OVERLOAD, CHEST PAIN WITH EXERTION AND Diagnosis Discharge Diagnosis (1) Chest pain on exertion: Status: Acute Code(s): R07.9 - Chest pain, unspecified (2) Volume overload: Status: Acute Code(s): E87.70 - Fluid overload, unspecified Qualifiers: Hypervolemia type: unspecified Qualified Code(s): E87.70 - Fluid overload, unspecified Plan #Chest pain rule out ACS Admitted with a complaint of pressure-like chest pain. Troponins x 3 were negative and EKG showed no acute ST changes. She had a stress echo this morning which was negative for any evidence of ischemia. It showed EF of 65% with stage I diastolic dysfunction and severe mitral annular calcification as well as mild to moderate mitral valve insufficiency. RVSP was 47mmhg. #Hypoxia in the setting of chronic respiratory failure likely due to fluid overload She was saturating in the 70s on room air on admission. Currently on 2 L of oxygen. BNP was not elevated but patient does have some lower extremity edema and thinks this is contributing to her shortness of breath. Breathing treatments with bronchodilators. on IV lasix. In cumulative negative balance by 84mls she had walking pulse ox today which showed that she required 4L of oxygen with ambulation, when she usually requires 2. Resume her Lasix. Titrate oxygen to maintain saturation above 90%. 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 Also has IVC filter in situ #Benign essential hypertension: On Lasix #Hyperlipidemia: On statin #History of peripheral neuropathy: On gabapentin 3 times daily #Benign essential tremors: On primidone #Depression with anxiety: On duloxetine #History of recurrent UTIs: On Keflex prophylactically DVT prophylaxis: On Eliquis Disposition; for likely dc to assisted living tomorrow Medications at Discharge Home Medications cholecalciferol (vitamin D3) 25 mcg (1,000 unit) tablet (Vitamin D3) 2,000 unit PO DAILY vitamin 12/29/15 pravastatin 40 mg tablet 40 mg PO QHS cholesterol 08/05/18 primidone 50 mg tablet 100 mg PO TID tremors 03/18/19 simethicone 80 mg chewable tablet 80 mg PO TIDCM indigestion 03/18/19 ascorbic acid (vitamin C) 500 mg tablet 500 mg PO DAILY supplement 09/28/20 cyanocobalamin (vitamin B-12) 1,000 mcg/mL injection solution 1,000 mcg IM QMONTH supplement 10/23/20 nystatin 100,000 unit/gram topical powder 1 applic topical Q8H PRN Skin Irritation 07/30/21 apixaban 5 mg tablet (Eliquis) 5 mg PO BID blood thinner 09/30/21 d-mannose 500 mg capsule 1,000 mg PO BID ssee 12/05/21 ferrous sulfate 325 mg (65 mg iron) tablet (Feosol) 325 mg PO QHS iron 03/19/23 omeprazole 40 mg capsule,delayed release 40 mg PO DAILY GERD 04/16/23 ondansetron HCl 8 mg tablet 8 mg PO Q8H PRN Nausea 04/16/23 oxybutynin chloride 5 mg tablet,extended release 24 hr 5 mg PO DAILY OVERACTIVE BLADDER 04/16/23 phenazopyridine 200 mg tablet (Pyridium) 200 mg PO Q8H PRN Bladder Spasms 04/16/23 acetaminophen 325 mg tablet 650 mg PO Q4H PRN pain/ elevated temp 07/31/23 furosemide 40 mg tablet 40 mg PO BIDLX diuretic #0 tabs 10/06/23 vibegron 75 mg tablet (Gemtesa) 75 mg PO DAILY bladder #0 tabs 10/06/23 dextrose 40 % oral gel (Glucose Gel) 10 g PO Q15M PRN hypoglycemia 10/15/23 fluticasone propionate 50 mcg/actuation nasal spray,suspension (24 Hour Allergy Relief) 2 spray intranasal DAILY PRN allergy symptoms 10/15/23 glucagon HCl 1 mg solution for injection (Glucagon (HCl) Emergency Kit) 1 mg subcut Q20M PRN hypoglycemia 10/15/23 guaifenesin 100 mg/5 mL oral liquid 200 mg PO Q4H PRN cough 10/15/23 mineral oil (Fleet Mineral Oil enema) 118 ml [place] DAILY PRN constipation 10/15/23 halobetasol propionate 0.05 % topical cream 1 applic topical BID rash 10/31/23 duloxetine 30 mg capsule,delayed release 90 mg PO DAILY depression 11/20/23 magnesium hydroxide 400 mg/5 mL oral suspension (Milk of Magnesia) 30 ml PO QHS PRN constipation 03/26/24 L.acidophil,salivari-Bifido bifidum-Strep thermoph 175 mg capsule 1 cap PO DAILY supplement 04/07/24 cephalexin 500 mg capsule 500 mg PO QHS infection 05/04/24 albuterol sulfate 2.5 mg/3 mL (0.083 %) solution for nebulization 2.5 mg inhalation Q2H PRN shortness of breath or wheezing 05/08/24 albuterol sulfate 90 mcg/actuation aerosol inhaler 2 inh inhalation Q4H PRN shortness of breath or wheezing 05/08/24 aluminum-mag hydroxide-simethicone 200 mg-200 mg-20 mg/5 mL oral susp (Advanced Antacid-Antigas) 5 ml PO Q4H PRN GI bleeding prophylaxis 05/08/24 docusate sodium 100 mg capsule (Col-Rite) 100 mg PO DAILY stool softner 05/08/24 gabapentin 300 mg capsule 300 mg PO TID nerve pain 10/17/24 hydrocodone-acetaminophen 5-325mg 5mg-325mg 1 tab PO TID PRN PRN pain 10/17/24 Hospital Course Operations None Procedures 2-D Echocardiogram Summary of Care Provided Minutes Spent on Discharge: 45 Hospital Course: Patient is a 79-year-old female with an extensive past medical history as outlined including heart failure preserved ejection fraction was admitted to the ED on 10/17/2024 with complaint of chest pain and shortness of breath with exertion. The symptoms are started about 7 days prior to admission and gradually progressed. She also admitted to an unintentional 7 pound weight gain. proBNP was within normal range at 736. Chest x-ray showed no acute cardiopulmonary findings. However she desaturated with ambulation going down to 76% on room air. She was admitted to the manage for chest pain rule out ACS and hypoxia thought to be due to fluid overload in the setting of her known secondary pulmonary hypertension. She had a stress echocardiogram which showed no evidence of ischemia. Troponins were not elevated. 2D echo showed EF of 65% with moderate concentric left ventricular hypertrophy and stage I diastolic dysfunction as well as RVSP of 47 mmHg. She was diuresed with IV Lasix did well. She had a walking pulse ox which showed that she remained on her baseline 2 L of oxygen both at rest and with ambulation. She was therefore discharged back to her assisted living facility on 10/20/2024. 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 Patient seen and examined prior to discharge. She had no active complaints. She had an uneventful night and review of systems otherwise negative. She remained on her baseline 2 L of oxygen. Labs and vitals reviewed. Medication reviewed and reconciled. Physical Exam Const alert, oriented x3, no apparent distress and well nourished Constitutional Narrative: class III obesity General Appearance: cooperative and comfortable Orientation / Consciousness: awake HEENT normocephalic, head/scalp atraumatic, hearing grossly normal bilaterally and moist oral mucous membranes Mouth: oral and palatal mucosa normal Eyes PERRL, EOMs intact bilaterally and conjunctivae normal Neck no lymphadenopathy, supple and no JVD Lymph Lymphatic: no lymphadenopathy noted Resp Resp Narrative: mildly diminished breath sounds bibasally, no wheezes or crackles. On 2L of oxygen by nasal canula Auscultation: crackles Cardio regular rate, regular rhythm, S1 normal heart sound, S2 normal heart sound and no murmurs GI normal to inspection, nondistended, normoactive bowel sounds, soft to palpation, non-tender and non-distended GI Narrative: Morbidly obese. Extremity Extremity Narrative: edema has improved General Extremity: no tenderness to palpation of joints or extremities Skin Skin Narrative: bilateral 1+ pitting pedal edema General Skin Exam: no breakdown Neuro oriented x3, CN's II-XII intact bilaterally, moves all extremities, no focal motor deficits and no sensory deficits noted Sensorium / Orientation: awake, alert, oriented to person, oriented to place and oriented to time Speech: speech normal Motor Exam: strength 5/5 throughout and general weakness Psych thought process normal, cooperative and affect normal Appearance: appropriate Weight / BMI Weight Weight: 314 lb 4.8 oz Body Mass Index (BMI) 52.2 ABG / Lab / Microbiology Data 10/20/24 05:57 10/20/24 05:57 Laboratory: Laboratory Results - last 24 hr 10/19/24 15:03: POC Glucose 170 H 10/20/24 05:57: WBC 4.1 L, RBC 3.05 L, Hgb 10.1 L, Hct 32.5 L, MCV 106.6 H, MCH 33.1 H, MCHC 31.1 L, RDW Std Deviation 50.8 H, RDW Coeff of Chani 13.0, Plt Count 185, MPV 9.2, Immature Gran % (Auto) 0.500, Neut % (Auto) 56.4, Lymph % (Auto) 29.0, [place] % (Auto) 9.7, Eos % (Auto) 3.4, Baso % (Auto) 1.0, Absolute Neuts (auto) 2.3, Absolute Lymphs (auto) 1.19, Nucleated RBC % 0, Sodium 141, Potassium 4.5, Chloride 104, Carbon Dioxide 27.4, Anion Gap 10, BUN 26 H, Creatinine 0.80, Estim Creat Clear Calc 83.47, Est GFR (MDRD) Non-Af 76, BUN/Creatinine Ratio 32.5 H, Glucose 89, Calcium 8.5 D/C Instructions Discharge Diet: Low fat / Low cholesterol Discharge Activity: Return to Normal Activity Weight Bearing Status: Weight bearing as tolerated Call your doctor if you observe: Fever of 101 or Higher, Shortness of breath, Dizziness, Swelling in the ankles and Chest pain DC O2, CPAP, BIPAP Needs Home O2 Discharge instructions: Yes Type of respiratory needs?: Oxygen Oxygen frequency: Continuous Continuous oxygen liters per minute: 3 DC home with Oxygen: Yes Home O2 MD Review: I have reviewed the oxygen testing, and the patient qualifies for home oxygen equipment and portability. The patient is mobile in the home and the community. Meaningful Use Info Meaningful Use Meaningful Use Diagnoses (Choose all that apply): CHF CHF AUSTEN/ARB ordered at discharge?: No Reason AUSTEN/ARB not ordered?: Not indicated Documented LVEF (%): 65 Ischemic Stroke Statin Dosing Therapy Reference: STATIN DOSE THERAPY REFERENCE: * Patients > 75 years receive moderate or high dose statin therapy. * Patients 75 years or YOUNGER should receive HIGH intensity statin dose unless contraindicated. You will be required to document reason for non-treatment if statin daily dose does not meet guidelines. HIGH DOSE STATIN THERAPY DAILY Atorvastatin > than or = to 40 mg Rosuvastatin > than or = to 20 mg Amlodipine + Atorvastatin > than or = to 2.5/40 mg Ezetimibe + Simvastatin 10/80 mg Simvastatin 80mg Discharge Plan Admission Admit Date/Time: 10/17/24 21:02 Primary Reason for Your Visit: chest pain, hypoxia Attending Provider: Rosa Quintero Primary Care Provider: Bobby Pinto Consulting Providers: Marlon Shay Instructions Patient Instructions: ED Chest Pain, Noncardiac Discharge Orders/Prescriptions Prescriptions: Continued acetaminophen 325 mg tablet 650 mg PO Q4H PRN (Reason: pain/ elevated temp ) duloxetine 30 mg capsule,delayed release(DR/EC) 90 mg PO DAILY dextrose [Glucose Gel] 40 % gel 10 g PO Q15M PRN (Reason: hypoglycemia) Rx Instructions: until symptoms of low blood sugar are controlled guaifenesin 100 mg/5 mL liquid 200 mg PO Q4H PRN (Reason: cough) glucagon HCl [Glucagon (HCl) Emergency Kit] 1 mg recon soln 1 mg subcut Q20M PRN (Reason: hypoglycemia) Rx Instructions: until target blood sugar attained mineral oil [Fleet Mineral Oil] Enema 118 ml DE DAILY PRN (Reason: constipation) Rx Instructions: discard any unused portion magnesium hydroxide [Milk of Magnesia] 400 mg/5 mL suspension 30 ml PO QHS PRN (Reason: constipation) cholecalciferol (vitamin D3) [Vitamin D3] 1,000 UNIT tablet 2,000 unit PO DAILY pravastatin 40 MG tablet 40 mg PO QHS primidone 50 MG tablet 100 mg PO TID simethicone 80 MG tablet 80 mg PO TIDCM ascorbic acid (vitamin C) 500 MG tablet 500 mg PO DAILY cyanocobalamin (vitamin B-12) 1,000 mcg/mL Solution 1,000 mcg IM QMONTH Rx Instructions: states is due the 4th of each month nystatin 100,000 unit/gram Powder 1 applic TOPICAL Q8H PRN (Reason: Skin Irritation) Eliquis 5 mg Tablet 5 mg PO BID halobetasol propionate 0.05 % cream 1 applic TOPICAL BID d-mannose 500 mg Capsule 1,000 mg PO BID omeprazole 40 mg capsule,delayed release(DR/EC) 40 mg PO DAILY oxybutynin chloride 5 mg tablet extended release 24hr 5 mg PO DAILY ondansetron HCl 8 MG tablet 8 mg PO Q8H PRN (Reason: Nausea) phenazopyridine [Pyridium] 200 MG tablet 200 mg PO Q8H PRN (Reason: Bladder Spasms) ferrous sulfate [Feosol] 325 mg (65 mg iron) tablet 325 mg PO QHS furosemide 40 mg Tablet 40 mg PO BIDLX Qty: 0 0RF Patient Comments: per family pt not taking Lasix over the last week at the facility. Gemtesa 75 mg Tablet 75 mg PO DAILY Qty: 0 0RF fluticasone propionate [24 Hour Allergy Relief] 50 mcg/actuation spray,suspension 2 spray intranasal DAILY PRN (Reason: allergy symptoms) Rx Instructions: administer into each nostril Rochelleacidoph,saliva-B.bif-S.therm 175 mg Capsule 1 cap PO DAILY albuterol sulfate 90 mcg/actuation HFA aerosol inhaler 2 inh inhalation Q4H PRN (Reason: shortness of breath or wheezing) albuterol sulfate 2.5 mg /3 mL (0.083 %) solution for nebulization 2.5 mg inhalation Q2H PRN (Reason: shortness of breath or wheezing) alum-mag hydroxide-simeth [Advanced Antacid-Antigas] 200-200-20 mg/5 mL suspension 5 ml PO Q4H PRN (Reason: GI bleeding prophylaxis) docusate sodium [Col-Rite] 100 mg capsule 100 mg PO DAILY cephalexin 500 mg capsule 500 mg PO QHS hydrocodone-acetaminophen 5-325 mg tablet 1 tab PO TID PRN PRN (Reason: pain) gabapentin 300 mg capsule 300 mg PO TID Referrals / Follow Up: Bobby Pinto MD [Primary Care Provider] - Within 1 Week Disposition Disposition (needs filled in before D/C Order can be placed): Assisted Living Charges/Coding Visit Charges Inpatient E&M: 98040 Disch Hosp >30min
--- NOTE | 2024-10-20 13:45 | PHA.DC.MR.R ---
Pharmacy [facility] Reconciliation Pharmacy Service has performed discharge medication reconciliation for this patient. The patient's discharge medication list was reviewed for discrepancies and discrepancies were resolved. Medications at Discharge Home Medications cholecalciferol (vitamin D3) 25 mcg (1,000 unit) tablet (Vitamin D3) 2,000 unit PO DAILY vitamin 12/29/15 pravastatin 40 mg tablet 40 mg PO QHS cholesterol 08/05/18 primidone 50 mg tablet 100 mg PO TID tremors 03/18/19 simethicone 80 mg chewable tablet 80 mg PO TIDCM indigestion 03/18/19 ascorbic acid (vitamin C) 500 mg tablet 500 mg PO DAILY supplement 09/28/20 cyanocobalamin (vitamin B-12) 1,000 mcg/mL injection solution 1,000 mcg IM QMONTH supplement 10/23/20 nystatin 100,000 unit/gram topical powder 1 applic topical Q8H PRN Skin Irritation 07/30/21 apixaban 5 mg tablet (Eliquis) 5 mg PO BID blood thinner 09/30/21 d-mannose 500 mg capsule 1,000 mg PO BID ssee md 12/05/21 ferrous sulfate 325 mg (65 mg iron) tablet (Feosol) 325 mg PO QHS iron 03/19/23 omeprazole 40 mg capsule,delayed release 40 mg PO DAILY GERD 04/16/23 ondansetron HCl 8 mg tablet 8 mg PO Q8H PRN Nausea 04/16/23 oxybutynin chloride 5 mg tablet,extended release 24 hr 5 mg PO DAILY OVERACTIVE BLADDER 04/16/23 phenazopyridine 200 mg tablet (Pyridium) 200 mg PO Q8H PRN Bladder Spasms 04/16/23 acetaminophen 325 mg tablet 650 mg PO Q4H PRN pain/ elevated temp 07/31/23 furosemide 40 mg tablet 40 mg PO BIDLX diuretic #0 tabs 10/06/23 vibegron 75 mg tablet (Gemtesa) 75 mg PO DAILY bladder #0 tabs 10/06/23 dextrose 40 % oral gel (Glucose Gel) 10 g PO Q15M PRN hypoglycemia 10/15/23 fluticasone propionate 50 mcg/actuation nasal spray,suspension (24 Hour Allergy Relief) 2 spray intranasal DAILY PRN allergy symptoms 10/15/23 glucagon HCl 1 mg solution for injection (Glucagon (HCl) Emergency Kit) 1 mg subcut Q20M PRN hypoglycemia 10/15/23 guaifenesin 100 mg/5 mL oral liquid 200 mg PO Q4H PRN cough 10/15/23 mineral oil (Fleet Mineral Oil enema) 118 ml [place] DAILY PRN constipation 10/15/23 halobetasol propionate 0.05 % topical cream 1 applic topical BID rash 10/31/23 duloxetine 30 mg capsule,delayed release 90 mg PO DAILY depression 11/20/23 magnesium hydroxide 400 mg/5 mL oral suspension (Milk of Magnesia) 30 ml PO QHS PRN constipation 03/26/24 L.acidophil,salivari-Bifido bifidum-Strep thermoph 175 mg capsule 1 cap PO DAILY supplement 04/07/24 cephalexin 500 mg capsule 500 mg PO QHS infection 05/04/24 albuterol sulfate 2.5 mg/3 mL (0.083 %) solution for nebulization 2.5 mg inhalation Q2H PRN shortness of breath or wheezing 05/08/24 albuterol sulfate 90 mcg/actuation aerosol inhaler 2 inh inhalation Q4H PRN shortness of breath or wheezing 05/08/24 aluminum-mag hydroxide-simethicone 200 mg-200 mg-20 mg/5 mL oral susp (Advanced Antacid-Antigas) 5 ml PO Q4H PRN GI bleeding prophylaxis 05/08/24 docusate sodium 100 mg capsule (Col-Rite) 100 mg PO DAILY stool softner 05/08/24 gabapentin 300 mg capsule 300 mg PO TID nerve pain 10/17/24 hydrocodone-acetaminophen 5-325mg 5mg-325mg 1 tab PO TID PRN PRN pain 10/17/24
[2024-10-20] MEDS: Acetaminophen 325 MG Tablet 650 MG PO (14:36)
--- NOTE | 2024-10-20 14:51 | CASEMGMT ---
Discharge Planning Discharge orders, signed med list, and transport time sent to [facility]. Physicians will transport pt by wheelchair at approx 3p. Nursing, SW, pt, and her daughter (Aleyda) updated. Jaci Madison DC Planning Asst.
== END 2024-10-20 15:26 | disposition home or self-care (01) | DRG 291 ==
LOC: ED 18:31 → PCU 10-18 05:09
PROVIDERS: Admitting Provider Internal Medicine; Emergency Provider Emergency Medicine; PCP Family Medicine; Referring Provider Emergency Medicine; Visit Provider Student in an Organized Health Care Education/Training Program
DX: I11.0 Hypertensive heart disease with heart failure (principal); I50.33 Acute on chronic diastolic (congestive) heart failure; E66.2 Morbid (severe) obesity with alveolar hypoventilation; J96.11 Chronic respiratory failure with hypoxia; Z68.43 Body mass index [BMI] 50.0-59.9, adult; I27.29 Other secondary pulmonary hypertension; E11.42 Type 2 diabetes mellitus with diabetic polyneuropathy; D50.9 Iron deficiency anemia, unspecified; Z79.01 Long term (current) use of anticoagulants; I34.81 Nonrheumatic mitral (valve) annulus calcification; Z95.828 Presence of other vascular implants and grafts; D53.9 Nutritional anemia, unspecified; E78.00 Pure hypercholesterolemia, unspecified; F41.8 Other specified anxiety disorders; K21.9 Gastro-esophageal reflux disease without esophagitis; G25.0 Essential tremor; I34.0 Nonrheumatic mitral (valve) insufficiency; M17.0 Bilateral primary osteoarthritis of knee; I77.819 Aortic ectasia, unspecified site; Z83.3 Family history of diabetes mellitus; Z90.710 Acquired absence of both cervix and uterus; Z86.718 Personal history of other venous thrombosis and embolism; Z96.653 Presence of artificial knee joint, bilateral; Z79.02 Long term (current) use of antithrombotics/antiplatelets; Z79.899 Other long term (current) drug therapy; Z98.84 Bariatric surgery status; Z98.890 Other specified postprocedural states; E66.813 Obesity, class 3; R07.89 Other chest pain; Z99.81 Dependence on supplemental oxygen
CPT/HCPCS: 36415; 71046; 74176; 80048; 80053; 80061; 82607; 82728; 82746; 82962; 83036; 83540; 83550; 83735; 83880; 84100; 84443; 84484; 85025; 93005; 93017; 93306; 93350; 94640; 97162; 97166; 97530; 97802; 99285; P9047; A4216; J1940; J2785

== ENCOUNTER → 2024-10-27 | Outpatient (CLI) | payer MEDICARE, MEDICAID, SELFPAY ==
[2024-10-27 15:29] LABS: Hematocrit 36.1 % (37-47); Mean Corp Hgb Conc 30.5 g/dL (32-36); Mean Corpuscular Hgb 32.9 pg (27.0-32.0); Mean Corpuscular Volume 108.1 fL (81-99); Platelet Count 240 K/mm3 (150-450); RBC Distribution Width CV 12.9 % (11.6-14.6); RBC Distribution Width SD 50.6 fl (35.1-43.9); Red Blood Count 3.34 M/mm3 (4.2-5.4); White Blood Count 5.1 K/mm3 (4.4-11.0)
[2024-10-27 15:58] LABS: ALB/GLOB Ratio 1.6 RATIO (0.9-2.4); AST(SGOT) 26 U/L (<=31); Alanine Aminotransfer ALT/SGPT 28 U/L (<=34); Alkaline Phosphatase 127 U/L (35-104); Anion Gap 11 (5-15); BUN 29 mg/dL (4-19); BUN/Creat Ratio 37.5 RATIO (10-20); Carbon Dioxide 25.5 mmol/L (21.0-32.0); Chloride 103 mmol/L (98-108); Creatinine, Serum 0.77 mg/dL (0.70-1.20); EST Glomerular Filtration Rate 79 (>60); Globulin 2.5 g/dL (2.2-4.2); Glucose 103 mg/dL (70-99); Potassium 4.3 mmol/L (3.3-5.1); Pro- Brain NATRIURETIC PEPTIDE 754 pg/mL (<=1800); Protein, Total 6.5 g/dL (5.9-8.4); Sodium Level 139 mmol/L (133-145); Total Bilirubin 0.45 mg/dL (0.00-1.30)
== END | disposition home or self-care (01) ==
LOC: MFPLAB 12:00
PROVIDERS: PCP Family Medicine; Referring Provider Family Medicine; Visit Provider Family Medicine
DX: I50.9 Heart failure, unspecified (principal)
CPT/HCPCS: 36415; 80053; 83880; 85027

== ENCOUNTER 2024-11-07 23:13 | Emergency (ER) | payer MEDICARE, MEDICAID, SELFPAY ==
--- NOTE | 2024-11-07 00:30 | RAD_ITS ---
PROCEDURE: CHEST PA AND LATERAL 11/08/2024 REASON FOR EXAM: CHEST PAIN, COUGH TECHNIQUE: Frontal and lateral views of the chest. COMPARISON: 10/17/2024 FINDINGS: Lungs appear clear. Cardiac and mediastinal contours appear within limits. Atherosclerotic change of the aortic arch. Right shoulder degenerative changes. RAD/Chest PA and Lateral IMPRESSION: No evidence of acute disease. Reading Location: [id number]
[2024-11-07 23:15] VITALS: BP 139/66; PULSE 72; RESP 18; TEMP 36.5; O2SAT 97; BMI 52.2
--- NOTE | 2024-11-07 23:44 | ED.VIS.CHEST ---
HPI History of Present Illness Chief Complaint: Chest Pain Informant: patient and EMS Narrative Narrative: 79-year-old female presenting from assisted living with chest discomfort that been there for 7-8 hours constantly. It has waxed and waned but not gone away. States initially felt like burning central substernal chest, no radiation, then started feeling tight which is what it has been ever since. She initially took some Mylanta, did not help and then she took some later and it did help temporarily. She took nitroglycerin, Tylenol, none of that seem to do anything. This is the same discomfort that she had last month when she was admitted to the hospital and had a stress test. She denies any other associated symptoms today except for a cough that is nonproductive. She denies dyspnea, nausea, vomiting, diaphoresis, palpitations, lightheadedness or syncope. No arm, neck, jaw pain. [facility] Medical History Obesity hypoventilation syndrome ROXIE (obstructive sleep apnea) Macrocytic anemia Morbid obesity with BMI of 50.0-59.9, adult Hypoxia Chest pain on exertion Volume overload Morbid obesity with BMI of 50.0-59.9, adult Hypoxia DVT (deep venous thrombosis) History of echocardiogram Cardiology follow-up encounter On home oxygen therapy Essential tremor Obesity CHF (congestive heart failure) Primary osteoarthritis, left shoulder Left shoulder pain Urinary tract infection Normocytic anemia Hydronephrosis Wears hearing aid Wears dentures Uses wheelchair Walker as ambulation aid Bladder disease Low iron Back pain Injury of head and neck Non-smoker Shortness of breath on exertion History of pain when walking History of edema Hx of peripheral neuropathy History of stress test Hiatal hernia Restless legs High cholesterol Chronic UTI GERD (gastroesophageal reflux disease) Arthritis GI bleed Pulmonary embolism Chronic neuropathic pain Anxiety and depression HLD (hyperlipidemia) Cystitis Segmental and somatic dysfunction of cervical region Diabetic neuropathy associated with type 2 diabetes mellitus Chronic anticoagulation Morbid obesity with BMI of 45.0-49.9, adult Chronic pain following surgery or procedure Segmental and somatic dysfunction of pelvic region Facet arthropathy, lumbar Segmental and somatic dysfunction of thoracic region Segmental and somatic dysfunction of lumbar region Closed left arm fracture Polycystic ovaries Osteoarthritis Neuropathy Diabetes Carpal tunnel syndrome Cataracts, both eyes History of DVT (deep vein thrombosis) Home Medications ?Medication ?Instructions ?Recorded ?Last Taken ?Type cholecalciferol (vitamin D3) 25 2,000 unit PO DAILY vitamin 12/29/15 09/05/24 History mcg (1,000 unit) tablet (Vitamin D3) pravastatin 40 mg tablet 40 mg PO QHS cholesterol 08/05/18 09/05/24 History primidone 50 mg tablet 100 mg PO TID tremors 03/18/19 09/05/24 History simethicone 80 mg chewable tablet 80 mg PO TIDCM indigestion 03/18/19 09/05/24 History ascorbic acid (vitamin C) 500 mg 500 mg PO DAILY supplement 09/28/20 09/05/24 History tablet cyanocobalamin (vitamin B-12) 1,000 mcg IM QMONTH supplement 10/23/20 05/26/24 History 1,000 mcg/mL injection solution nystatin 100,000 unit/gram topical 1 applic topical Q8H PRN Skin 07/30/21 Unknown History powder Irritation apixaban 5 mg tablet (Eliquis) 5 mg PO BID blood thinner 09/30/21 09/05/24 History d-mannose 500 mg capsule 1,000 mg PO BID ssee md 12/05/21 09/05/24 History ferrous sulfate 325 mg (65 mg 325 mg PO QHS iron 03/19/23 09/05/24 History iron) tablet (Feosol) omeprazole 40 mg capsule,delayed 40 mg PO DAILY GERD 04/16/23 09/05/24 History release ondansetron HCl 8 mg tablet 8 mg PO Q8H PRN Nausea 04/16/23 Unknown History oxybutynin chloride 5 mg 5 mg PO DAILY OVERACTIVE BLADDER 04/16/23 09/05/24 History tablet,extended release 24 hr phenazopyridine 200 mg tablet 200 mg PO Q8H PRN Bladder Spasms 04/16/23 06/27/24 History (Pyridium) acetaminophen 325 mg tablet 650 mg PO Q4H PRN pain/ elevated 07/31/23 09/05/24 History temp vibegron 75 mg tablet (Gemtesa) 75 mg PO DAILY bladder #0 tabs 10/06/23 09/05/24 Rx dextrose 40 % oral gel (Glucose 10 g PO Q15M PRN hypoglycemia 10/15/23 05/05/24 History Gel) fluticasone propionate 50 2 spray intranasal DAILY PRN 10/15/23 09/05/24 History mcg/actuation nasal allergy symptoms spray,suspension (24 Hour Allergy Relief) glucagon HCl 1 mg solution for 1 mg subcut Q20M PRN hypoglycemia 10/15/23 Unknown History injection (Glucagon (HCl) Emergency Kit) guaifenesin 100 mg/5 mL oral liquid 200 mg PO Q4H PRN cough 10/15/23 Unknown History mineral oil (Fleet Mineral Oil 118 ml RI DAILY PRN constipation 10/15/23 Unknown History enema) halobetasol propionate 0.05 % 1 applic topical BID rash 10/31/23 06/27/24 History topical cream duloxetine 30 mg capsule,delayed 90 mg PO DAILY depression 11/20/23 09/05/24 History release magnesium hydroxide 400 mg/5 mL 30 ml PO QHS PRN constipation 03/26/24 Unknown History oral suspension (Milk of Magnesia) L.acidophil,salivari-Bifido 1 cap PO DAILY supplement 04/07/24 09/05/24 History bifidum-Strep thermoph 175 mg capsule cephalexin 500 mg capsule 500 mg PO QHS infection 05/04/24 09/05/24 History albuterol sulfate 2.5 mg/3 mL 2.5 mg inhalation Q2H PRN 05/08/24 Unknown History (0.083 %) solution for nebulization shortness of breath or wheezing albuterol sulfate 90 mcg/actuation 2 inh inhalation Q4H PRN shortness 05/08/24 Unknown History aerosol inhaler of breath or wheezing aluminum-mag hydroxide-simethicone 5 ml PO Q4H PRN GI bleeding 05/08/24 09/05/24 History 200 mg-200 mg-20 mg/5 mL oral susp prophylaxis (Advanced Antacid-Antigas) docusate sodium 100 mg capsule 100 mg PO DAILY stool softner 05/08/24 09/05/24 History (Col-Rite) gabapentin 300 mg capsule 300 mg PO TID nerve pain 10/17/24 Unknown History hydrocodone-acetaminophen 5-325mg 1 tab PO TID PRN PRN pain 10/17/24 Unknown History 5mg-325mg furosemide 40 mg tablet 40 mg PO DAILY diuretic 11/07/24 Unknown History furosemide 80 mg tablet 80 mg PO QDAY 11/07/24 Unknown History Allergy/AdvReac Type Severity Reaction Status Date / Time ampicillin (From Unasyn) Allergy Severe Blisters Verified 11/07/24 23:14 on tongue /throat difficulty breathing sore tongue/ warfarin sodium (From Allergy Severe Low red Verified 11/07/24 23:14 Coumadin) blood cells Family History Father Colon cancer Hypertension Mother Hypertension Diabetes Grandmother Hypertension Surgical History History of bilateral cataract extraction History of tonsillectomy Hx of cystoscopy Hx of cystoscopy History of cystoscopy S/P hysterectomy H/O cardiac catheterization (05/22/11) History of cholecystectomy History of embolic filter insertion History of carpal tunnel surgery History of hysterectomy Total knee replacement status History of gastric bypass Social History housing: assisted living facility Smoking Status: Never smoker alcohol intake: current alcohol intake frequency: holidays/special occasions only substance use type: does not use what type of physical activity do you participate in: walking and aerobics frequency: 1-2 times per week ROS ROS ED Constitutional Constitutional ED: Denies chills or fever(s) Eyes Eyes: Denies change in vision or diplopia ENT ENT ED: Denies rhinorrhea or sore throat Cardiovascular Cardiovascular: Reports chest pain; Denies palpitations Respiratory/Chest Respiratory/Chest: Reports cough; Denies dyspnea or sputum Gastrointestinal Gastrointestinal: Denies abdominal pain, diarrhea, nausea or vomiting Genitourinary Genitourinary ED: Denies dysuria or hematuria Musculoskeletal Musculoskeletal: Denies back pain or neck pain Integumentary Denies abscess or rash Neurologic Neurologic: Denies headache(s), paresthesias or weakness Psychiatric Psychiatric: Denies suicidal thoughts EXAM Physical Exam Const Vital Signs: 11/07/24 23:15 11/07/24 23:19 11/08/24 00:10 Temperature 97.7 F L Temperature Source Oral Pulse Rate 72 Respiratory Rate 18 Respiratory Effort Normal Non-Labored Respiratory Pattern Normal Blood Pressure 139/66 H Blood Pressure Mean 90 Pulse Ox 97 96 Oxygen Delivery Method Nasal Cannula Nasal Cannula Oxygen Flow Rate (L/min) 2 2 11/08/24 00:12 Temperature Temperature Source Pulse Rate 67 Respiratory Rate 18 Respiratory Effort Respiratory Pattern Blood Pressure 146/88 H Blood Pressure Mean 107 Pulse Ox 97 Oxygen Delivery Method Nasal Cannula Oxygen Flow Rate (L/min) 2 Positive well nourished and well developed General Appearance ED: well developed and NAD HEENT Reports moist mucous membranes normocephalic and atraumatic Eyes PERRL and EOMs intact bilaterally Neck full ROM and supple Chest Wall inspection of chest normal and palpation of chest normal Resp normal respiratory effort and clear to auscultation bilaterally Cardio regular rate, regular rhythm and no murmurs Rate: Negative for tachycardic GI non-tender and non-distended Auscultation: normoactive bowel sounds Palpation: soft Back/Spine no CVA tenderness General Back: other FROM Extremity normal to inspection General Extremety ED: Yes edema; Negative for pulses abnormal or tenderness General Extremity: edema bilateral lower extremity Details: trace; Negative for pulses abnormal Neuro oriented x3, CN's II-XII intact bilaterally and no sensory deficits noted Sensorium / Orientation: awake and alert Motor Exam: strength 5/5 throughout Skin no rashes or lesions noted and no wounds Heart Score History: Slightly/Non-Suspicious ECG: Normal Age: >/= 65 years Risk Factors: >/= 3 Risk Factors or History of CAD Troponin: </= Normal Limit Score: 4 MDM MDM MDM Narrative Medical decision making narrative: Patient appears well benign exam normal vital signs, states her chest pain is a 6/10 she is asking for something for it so while ruling out acute coronary syndrome, giving her morphine and Levsin. I already suspect this is not cardiac after looking at her normal EKG and recent negative stress echocardiogram. She does have an acute cough so we will obtain a chest x-ray and labs to put in context, to evaluate for the possibility of a lower respiratory tract infection although she is not dyspneic or hypoxic. Two-view chest x-ray my interpretation shows no acute pneumonia, radiology in agreement. Her troponin indeed is within normal limits I do not think we need a second 1 since she has been having continuous discomfort all evening. Furthermore after the above medications, she feels much better. She has been with normal vital signs and playing on her cell phone. She is comfortable with going back home. History & Record Review Additional record(s) reviewed:: Prior inpatient record (Stress echo negative 10/18/24) Lab Data Attestation: I reviewed the patient's lab results. Labs: Laboratory Results - last 24 hr 11/07/24 23:53 WBC 5.0 RBC 3.18 L Hgb 10.5 L Hct 33.4 L MCV 105.0 H MCH 33.0 H MCHC 31.4 L RDW Std Deviation 49.8 H RDW Coeff of Chani 12.7 Plt Count 196 MPV 9.3 Immature Gran % (Auto) 0.600 Neut % (Auto) 61.3 Lymph % (Auto) 23.8 Stanley % (Auto) 10.7 H Eos % (Auto) 2.8 Baso % (Auto) 0.8 Absolute Neuts (auto) 3.0 Absolute Lymphs (auto) 1.18 Nucleated RBC % 0 Sodium 136 Potassium 4.8 Chloride 103 Carbon Dioxide 26.2 Anion Gap 7 BUN 26 H Creatinine 0.77 Estim Creat Clear Calc 83.44 Est GFR (MDRD) Non-Af 79 BUN/Creatinine Ratio 33.9 H Glucose 108 H Calcium 8.6 Troponin T High Sens 13 D Radiography Diagnostic Testing: Clinical Impression(s) from Imaging Studies Chest X-Ray 11/07/24 00:30 IMPRESSION: No evidence of acute disease. Reading Location: [facility] Rhythm Strip Rhythm Strip: Sinus Rhythm Rate: 70 Ectopy: None EKG Initial EKG: Attestation: I personally reviewed and interpreted this EKG as follows: Interpretation: Sinus Rhythm, No Acute Injury Pattern and AV Block ( first-degree) Comments: Nml axis & intervals except for mildly prolonged RI; nml EKG Prior EKG tracings: available for review Prior: Unchanged Discharge Plan Triage Chief Complaint: Chest Pain ED Provider: Tico Posada Dx/Rx/DC Orders Clinical Impression: Non-cardiac chest pain, Acute cough Instructions: ED Chest Pain, Noncardiac Prescriptions: No Action acetaminophen 325 mg tablet 650 mg PO Q4H PRN (Reason: pain/ elevated temp ) duloxetine 30 mg capsule,delayed release(DR/EC) 90 mg PO DAILY dextrose [Glucose Gel] 40 % gel 10 g PO Q15M PRN (Reason: hypoglycemia) Rx Instructions: until symptoms of low blood sugar are controlled guaifenesin 100 mg/5 mL liquid 200 mg PO Q4H PRN (Reason: cough) glucagon HCl [Glucagon (HCl) Emergency Kit] 1 mg recon soln 1 mg subcut Q20M PRN (Reason: hypoglycemia) Rx Instructions: until target blood sugar attained mineral oil [Fleet Mineral Oil] Enema 118 ml RI DAILY PRN (Reason: constipation) Rx Instructions: discard any unused portion magnesium hydroxide [Milk of Magnesia] 400 mg/5 mL suspension 30 ml PO QHS PRN (Reason: constipation) cholecalciferol (vitamin D3) [Vitamin D3] 1,000 UNIT tablet 2,000 unit PO DAILY pravastatin 40 MG tablet 40 mg PO QHS primidone 50 MG tablet 100 mg PO TID simethicone 80 MG tablet 80 mg PO TIDCM ascorbic acid (vitamin C) 500 MG tablet 500 mg PO DAILY cyanocobalamin (vitamin B-12) 1,000 mcg/mL Solution 1,000 mcg IM QMONTH Rx Instructions: states is due the 4th of each month nystatin 100,000 unit/gram Powder 1 applic TOPICAL Q8H PRN (Reason: Skin Irritation) Eliquis 5 mg Tablet 5 mg PO BID halobetasol propionate 0.05 % cream 1 applic TOPICAL BID d-mannose 500 mg Capsule 1,000 mg PO BID omeprazole 40 mg capsule,delayed release(DR/EC) 40 mg PO DAILY oxybutynin chloride 5 mg tablet extended release 24hr 5 mg PO DAILY ondansetron HCl 8 MG tablet 8 mg PO Q8H PRN (Reason: Nausea) phenazopyridine [Pyridium] 200 MG tablet 200 mg PO Q8H PRN (Reason: Bladder Spasms) ferrous sulfate [Feosol] 325 mg (65 mg iron) tablet 325 mg PO QHS Gemtesa 75 mg Tablet 75 mg PO DAILY Qty: 0 0RF fluticasone propionate [24 Hour Allergy Relief] 50 mcg/actuation spray,suspension 2 spray intranasal DAILY PRN (Reason: allergy symptoms) Rx Instructions: administer into each nostril L.acidoph,saliva-B.bif-S.therm 175 mg Capsule 1 cap PO DAILY albuterol sulfate 90 mcg/actuation HFA aerosol inhaler 2 inh inhalation Q4H PRN (Reason: shortness of breath or wheezing) albuterol sulfate 2.5 mg /3 mL (0.083 %) solution for nebulization 2.5 mg inhalation Q2H PRN (Reason: shortness of breath or wheezing) alum-mag hydroxide-simeth [Advanced Antacid-Antigas] 200-200-20 mg/5 mL suspension 5 ml PO Q4H PRN (Reason: GI bleeding prophylaxis) docusate sodium [Col-Rite] 100 mg capsule 100 mg PO DAILY furosemide 80 mg tablet 80 mg PO QDAY furosemide 40 mg Tablet 40 mg PO DAILY cephalexin 500 mg capsule 500 mg PO QHS hydrocodone-acetaminophen 5-325 mg tablet 1 tab PO TID PRN PRN (Reason: pain) gabapentin 300 mg capsule 300 mg PO TID Primary Care Provider: Bobby Pinto Referrals: Bobby Pinto MD [Primary Care Provider] - 3-5 Days if not improving Print Language: Honduran Disposition Disposition: Home, Self Care
[2024-11-08] MEDS: Morphine 2 MG/ML Syringe IV (00:05)
[2024-11-08] MEDS: Hyoscyamine Sulfate 0.125 MG Tablet 0.25 MG SL (00:05)
[2024-11-08 00:10] VITALS: O2SAT 96
[2024-11-08 00:11] LABS: Absolute Lymphocyte Count 1.18 X10^3/uL (0.83-4.51); Basophil# 0.04 X10^3/uL; Basophil% 0.8 % (0-1); Eosinophil# 0.14 X10^3/uL; Eosinophils% 2.8 % (0-5); Hematocrit 33.4 % (37-47); Hemoglobin 10.5 g/dL (12.0-15.0); Lymphocyte # 1.18 X10^3/ul (0.83-4.51); Lymphocyte % 23.8 % (19-41); Mean Corp Hgb Conc 31.4 g/dL (32-36); Mean Platelet Vol. 9.3 fl (6.2-12.0); Monocyte# 0.53 X10^3/uL; Monocyte% 10.7 % (0-10); NRBC Flagged by Analyzer 0 % (0-5); Neutrophil # 3.03 X10^3/uL (2.7-7.7); Neutrophil % 61.3 % (47-70); Platelet Count 196 K/mm3 (150-450); RBC Distribution Width CV 12.7 % (11.6-14.6); RBC Distribution Width SD 49.8 fl (35.1-43.9); Red Blood Count 3.18 M/mm3 (4.2-5.4)
[2024-11-08 00:12] VITALS: BP 146/88; PULSE 67; RESP 18; O2SAT 97
[2024-11-08 00:27] LABS: Troponin T High Sensitivity 13 ng/L (<=14)
[2024-11-08 00:40] LABS: Anion Gap 7 (5-15); BUN 26 mg/dL (4-19); BUN/Creat Ratio 33.9 RATIO (10-20); Calcium,Total 8.6 mg/dL (7.6-11.0); Carbon Dioxide 26.2 mmol/L (21.0-32.0); Chloride 103 mmol/L (98-108); Creatinine, Serum 0.77 mg/dL (0.70-1.20); EST Glomerular Filtration Rate 79 (>60); Estimated Creatinine Clearance 83.44 ml/min (50-250); Glucose 108 mg/dL (70-99); Potassium 4.8 mmol/L (3.3-5.1); Sodium Level 136 mmol/L (133-145)
[2024-11-08 01:00] VITALS: BP 125/54; PULSE 69; RESP 18; O2SAT 99
[2024-11-08 01:12] VITALS: BP 121/67; PULSE 67; RESP 18; TEMP 36.7; O2SAT 97
[2024-11-08 05:00] VITALS: BP 139/66; PULSE 69; RESP 18; O2SAT 99
== END 2024-11-08 06:31 | disposition home or self-care (01) ==
PROVIDERS: Emergency Provider Emergency Medicine; PCP Family Medicine; Visit Provider Emergency Medicine
DX: R07.89 Other chest pain (principal); I50.9 Heart failure, unspecified; E11.42 Type 2 diabetes mellitus with diabetic polyneuropathy; E78.00 Pure hypercholesterolemia, unspecified; Z79.899 Other long term (current) drug therapy; R05.1 Acute cough
CPT/HCPCS: 71046; 80048; 84484; 85025; 93005; 96374; 99285; A4216

== ENCOUNTER → 2024-12-02 | Outpatient (CLI) | payer MEDICARE, MEDICAID, SELFPAY ==
--- NOTE | 2024-12-02 15:04 | RAD_ITS ---
PROCEDURE: KNEE 4 OR MORE VIEWS 12/02/2024 REASON FOR EXAM: BILATERAL KNEE PAIN TECHNIQUE: 4 view(s) of the right knee COMPARISON: None. FINDINGS: Mild suprapatellar knee joint effusion. Total knee arthroplasty with unremarkable metallic prosthesis. Mild osteopenia of the visualized bones. Degenerative joint disease. No fracture or dislocation is seen. No lytic or blastic bone lesion is noted. RAD/Knee 4 or More Views IMPRESSION: No radiographic evidence of an acute bone abnormality. Reading [facility]
--- NOTE | 2024-12-02 15:07 | RAD_ITS ---
PROCEDURE: KNEE 4 OR MORE VIEWS 12/02/2024 REASON FOR EXAM: BILATERAL KNEE PAIN TECHNIQUE: 4 view(s) of the left knee COMPARISON: 12/25/2022. FINDINGS: Osteopenia. Total knee arthroplasty with unremarkable metallic prosthesis. Mild suprapatellar knee joint effusion. Mild osteopenia of the visualized bones. Degenerative joint disease. No fracture or dislocation is seen. No lytic or blastic bone lesion is noted. RAD/Knee 4 or More Views IMPRESSION: No radiographic evidence of an acute bone abnormality. Reading [facility]
== END | disposition home or self-care (01) ==
LOC: MTRAD 15:03
PROVIDERS: PCP Family Medicine; Referring Provider Family Medicine; Visit Provider Family Medicine
DX: M17.11 Unilateral primary osteoarthritis, right knee (principal); M25.562 Pain in left knee
CPT/HCPCS: 73564

== ENCOUNTER 2024-12-23 14:25 | Emergency (ER) | payer MEDICARE, MEDICAID, SELFPAY ==
[2024-12-23 14:26] VITALS: BP 132/53; PULSE 122; RESP 20; TEMP 36.1; O2SAT 94; BMI 39.5
[2024-12-23 17:18] VITALS: BP 136/73; PULSE 89; RESP 16; TEMP 36.6; O2SAT 94
== END 2024-12-23 17:19 | disposition home or self-care (01) ==
PROVIDERS: Emergency Provider Emergency Medicine; PCP Family Medicine; Referring Provider Emergency Medicine; Visit Provider Emergency Medicine
DX: S80.12XA Contusion of left lower leg, initial encounter (principal); I50.9 Heart failure, unspecified; E11.42 Type 2 diabetes mellitus with diabetic polyneuropathy; Z86.711 Personal history of pulmonary embolism; E78.00 Pure hypercholesterolemia, unspecified; Z86.718 Personal history of other venous thrombosis and embolism; Z96.652 Presence of left artificial knee joint; W10.8XXA Fall (on) (from) other stairs and steps, initial encounter
CPT/HCPCS: 73590; 96374; 99284

== ENCOUNTER 2025-01-10 11:08 | Day surgery (SDC) | payer MEDICARE, MEDICAID, SELFPAY ==
[2025-01-10] VITALS (9 sets, daily range): BP systolic 112–133; BP diastolic 52–71; PULSE 67–73; RESP 16–18; TEMP 36.1–36.6; O2SAT 92–99; BMI 53.8
[2025-01-10] MEDS: Lactated Ringers 1,000 ML 15 ML IV (11:58)
[2025-01-10] MEDS: Lidocaine 1% (5 ml sdv) 5 ML Vial (12:20)
[2025-01-10] MEDS: 0.9% Normal Saline (Pres. free 10 ML Vial (12:20)
== END 2025-01-10 13:18 | disposition home or self-care (01) ==
LOC: SDC 11:10 → AC 11:20
PROVIDERS: PCP Family Medicine; Referring Provider Anesthesiology Pain Medicine; Visit Provider Anesthesiology Pain Medicine
PROC: 3E0S3BZ Introduction of Anesthetic Agent into Epidural Space, Percutaneous Approach (ICD-10-PCS; CPT 62282; principal; 2025-01-10 12:25)
DX: M51.17 Intervertebral disc disorders with radiculopathy, lumbosacral region (principal); E11.40 Type 2 diabetes mellitus with diabetic neuropathy, unspecified; M48.07 Spinal stenosis, lumbosacral region; K21.9 Gastro-esophageal reflux disease without esophagitis; F41.9 Anxiety disorder, unspecified; F32.A Depression, unspecified; E28.2 Polycystic ovarian syndrome; E78.00 Pure hypercholesterolemia, unspecified; N32.81 Overactive bladder; G25.0 Essential tremor; G25.81 Restless legs syndrome; Z87.19 Personal history of other diseases of the digestive system; Z98.84 Bariatric surgery status; Z86.711 Personal history of pulmonary embolism; Z79.01 Long term (current) use of anticoagulants; Z79.85 Long-term (current) use of injectable non-insulin antidiabetic drugs; Z86.718 Personal history of other venous thrombosis and embolism; Z79.899 Other long term (current) drug therapy
CPT/HCPCS: 62323; 01992; 64483; 77003; J2405

== ENCOUNTER 2025-01-15 23:36 | Emergency (ER) | payer MEDICARE, MEDICAID, SELFPAY ==
[2025-01-15 23:37] VITALS: BP 142/67; PULSE 79; RESP 18; TEMP 36.9; O2SAT 99; BMI 53.6
[2025-01-15 23:41] VITALS: BP 142/67; PULSE 80; RESP 18; TEMP 36.9; O2SAT 99
--- NOTE | 2025-01-15 23:59 | RAD_ITS ---
EXAM: Left lower extremity CLINICAL HISTORY: Mid lower leg pain, recent trauma COMPARISON: 12/23/2024 TECHNIQUE: Frontal and lateral views FINDINGS: Status post TKR. Intact hardware. Osteoporosis. No fracture or dislocation. There is a mid lower leg anterolateral hematoma. Measures up to a bowel 5.5 cm. RAD/Tibia & Fibula 2 Views IMPRESSION: No acute bony injury. Soft tissue hematoma in the mid lower leg. Reading [facility]
--- OUTSIDE RECORDS SUMMARY | 2025-01-16 00:10 | XMS RPT_ITS | CCD ---
Author Organization [facility] CliniSyme Care Team Providers Care Boomboat Operator Name Role Phone Bogdan Ewing Unavailable ALETHA COBB Unavailable Unavailable ALETHA COBB Unavailable Unavailable COLLETTE, KHALED Unavailable Unavailable PROVIDER, UNKNOWN Admitting Unavailable KHARI MCADAMS Attending Unavailable Pcp DREDGE OPERATOR SUPERVISOR, No Primary Care Provider Unavailabl e Pcp DREDGE OPERATOR SUPERVISOR, No Primary Care Provider Unavailabl e Pcp DREDGE OPERATOR SUPERVISOR, No Primary Care Provider Unavailabl e Jan Taylor MD, Celeste Unavailable Pcp DREDGE OPERATOR SUPERVISOR, No Primary Care Provider Unavailabl e Genna Mccarthy DO Primary Care Provider Jefferson Roman Chi Primary Care Provider Shavon Farmer NP Referring Unavailable Blair, Bobby Primary Care Unavailable Shavon Farmer NP Attending Unavailable [facility] Attending Unavailable Blair, Christopharon Primary Care Unavailable Bobby Adorno Attending Unavaila roberto Pinto, Christopharon Primary Care Unavailable Bobby Adorno Attending Unavaila roberto Pinto, Christopharon Primary Care Unavailable Loi Cameron Referring Unavailable Loi Cameron Attending Unavailable Blair, Christopher Primary Care Unavailable Ranmarc, Christopher Primary Care Unavailable Bobby Pinto Attending Unavailable Bobby Pinto Referring Unavailable Teofilo Sheppard Referring Unavailable Ranney, Christopher Primary Care Unavailable Teofilo Sheppard Attending Unavailable Walter Nance Attending Unavailable Ranney, Christopher Primary Care Unavailable Freddy Velarde Attending Unavailabl e Blair, Christopher Primary Care Unavailable Loi Cameron Referring Unavailable Loi Cameron Attending Unavailable Blair, Christopher Primary Care Unavailable Loi Cameron Referring Unavailable RakeshLoi Attending Unavailable Ranney, Christopher Primary Care Unavailable Ranney, Christopher Primary Care Unavailable Alejandra Villavicencio Attending Unavailable Bobby Adorno Attending Unavaila ble Ranney, Christopher Primary Care Unavailable Ranmarc KHOURY, Favianopharon Attending Unavaila ble Ranney, Christopher Primary Care Unavailable Marlon Shay Admitting Unavailable Devika Jaimes Referring Unavailable Koram, Rosa Juanita Attending Unavailable Ranney, Christopher Primary Care Unavailable Marlon Shay Consulting Unavailable Ranney, Christopher Primary Care Unavailable Blair, Bobby Attending Unavailable Ranney, Christopher Referring Unavailable Ranney, Christopher Primary Care Unavailable Bobby Pinto Attending Unavailable Ranney, Christopher Referring Unavailable Alejandra Villavicencio Attending Unavailable Ranney, Christopher Primary Care Unavailable Loi Cameron Referring Unavailable Loi Cameron Attending Unavailable Ranney, Christopher Primary Care Unavailable [facility] Attending Unavailable Ranney, Christopher Primary Care Unavailable Ranney, Christopher Primary Care Unavailable Tico Posada Attending Unavailable Freddy Velarde Attending Unavailabl e Ranney, Christopher Primary Care Unavailable Ranney, Christopher Primary Care Unavailable Bobby Adorno Attending Unavaila ble Bobby Adorno Attending Unavaila ble Ranney, Christopher Primary Care Unavailable Shavon Farmer NP Attending Unavailable Ranney, Christopher Primary Care Unavailable Loi Cameron Referring Unavailable Ranney, Christopher Primary Care Unavailable Loi Cameron Attending Unavailable Justin Angulo Attending Unavailable Ranney, Christopher Primary Care Unavailable Ranney, Christopher Referring Unavailable Marlon Shay Consulting Unavailable Marlon Shay Admitting Unavailable Devika Jaimes Referring Unavailable Koram, Rosa Juanita Attending Unavailable Ranney, Christopher Primary Care Unavailable Erumam, Rosa Juanita Consulting Unavailable [facility] Attending Unavailable Sameerney, Christopher Primary Care Unavailable Justin Angulo Attending Unavailable Justin Angulo Consulting Unavailable Bobby Pinto Referring Unavailable [facility]er[facility]enson, [facility] Primary Care Unavailable Arnoldo Reyes Attending Unavailable Shannon Marina Attending Unavailable [facility] Primary Care Unavailable Justin Angulo Attending Unavailable [facility] [place] Primary Care Unavailable Ranbenson, [facility] Referring Unavailable Sasha Flowers Attending Unavailabl e Blair, [facility] Referring Unavailable Sameerbenson, [facility] Primary Care Unavailable Marleny BUILDING RENTAL MANAGER, Shavon Attending Unavailable [facility] Unavailable Bobby Pinto Referring Unavailable Marleny BUILDING RENTAL MANAGER, Shavon Attending Unavailable [facility] [place] Primary Care Unavailable Sameerbenson, [facility] Referring Unavailable Marlon Shay Attending Unavailable [facility] [place] Attending [facility] Unavailable Bobby Adorno Attending Unavaila roberto [facility] [place] Unavailable Allergies Allergy Classification Reported Allergen(s) Allergy Type Date of Onset Reaction(s) Facility (2 sources) warfarin drug allergy 7 [facility] Work Phone: (3 sources) amoxicillin; Translations: [AMOXICILLIN] Drug Allergy 7 Anaphylaxis [facility] Repository (4 sources) warfarin; Translations: [WARFARIN SODIUM] Drug Allergy 2 Other: See Comments [facility] Repository (2 sources) Ampicillin; Translations: [AMPICILLIN] Drug Allergy [address] [facility] Repository Medications Completed/Discontinued Medications Medication Drug Class(es) Dates Sig (Normalized) Sig (Original) acetaminophen 500 mg oral tablet (2 sources) Start: 12-19-2016 ACETAMINOPHEN EXTRA STRENGTH 500 MG TABS ACETAMINOPHEN [id number] Bogdan JOSHI amitriptyline hydrochloride 25 mg oral tablet (2 sources) Tricyclic Antidepressant Start: 12-19-2016 AMITRIPTYLINE HCL 25 MG TABS AMITRIPTYLINE HCL [id number] Bogdan JOSHI AMOXICILLIN-POT CLAVULANATE (2 sources) Penicillin-class Antibacterial Start: 12-19-2016 AUGMENTIN 500-125 MG TABS 1 tablet twice daily AMOXICILLIN-POT CLAVULANATE [id number] Bogdan JOSHI denosumab 60 mg/ml injectable solution (2 sources) RANK Ligand Inhibitor Start: 12-19-2016 PROLIA 60 MG/ML SOLN DENOSUMAB [id number] Bogdan JOSHI DULoxetine 60 mg delayed release oral capsule (2 sources) Serotonin and Norepinephrine Reuptake Inhibitor Start: 12-19-2016 CYMBALTA 60 MG CPEP DULOXETINE HCL [id number] Bogdan JOSHI ergocalciferol 19161 unt oral tablet (2 sources) Provitamin D2 Compound Start: 12-19-2016 VITAMIN D (ERGOCALCIFEROL) 62447 UNIT CAPS ERGOCALCIFEROL 30855991710 Bogdan JOSHI FLUTICASONE PROPIONATE (2 sources) Corticosteroid Start: 12-19-2016 FLONASE ALLERGY RELIEF 50 MCG/ACT SUSP FLUTICASONE PROPIONATE 48408358796 Bogdan JOSHI furosemide 40 mg oral tablet (2 sources) Loop Diuretic Start: 12-19-2016 LASIX 40 MG TABS FUROSEMIDE [id number] Bogdan JOSHI gabapentin 300 mg oral tablet (2 sources) Anti-epileptic Agent Start: 12-19-2016 NEURONTIN 300 MG CAPS GABAPENTIN 88093057618 Bogdan JOSHI vitamin b 12 3 mg sublingual tablet (2 sources) Vitamin B12 B-12 [address] CYANOCOBALAMIN [id number] Bogdan JOSHI Problems Active Problems Problem Classification Problem Date Documented Da te Episodic/Chronic Congestive heart failure; nonhypertensive (1 source) Heart failure, unspecified; Translations: [Heart failure, unspecified] Onset: 11-02-2024 Chronic Deficiency and other anemia (1 source) Nutritional anemia, unspecified; Translations: [Nutritional anemia, unspecified] Onset: 10-23-2024 Episodic Diabetes mellitus without complication (2 sources) Diabetes mellitus; Translations: [Type 2 diabetes mellitus without complications] 06-18-2021 Chronic Disorders of lipid metabolism (2 sources) Hyperlipidemia, unspecified; Translations: [Pure hypercholesterolemia , unspecified] Onset: 05-12-2024 Chronic Essential hypertension (2 sources) Hypertensive disorder; Translations: [Essential (primary) hypertension] 06-18-2021 Chronic External Injury - Natural / Environment (2 sources) Scratched by cat, initial encounter; Translations: [Scratched by cat, initial encounter] Onset: 12-19-2016 12-19-2016 Fluid and electrolyte disorders (2 sources) Fluid overload, unspecified; Translations: [Hypokalemia] Onset: 07-23-2024 Episodic Nonspecific chest pain (2 sources) Chest pain, unspecified; Translations: [Chest pain, unspecified] Onset: 10-23-2024 Episodic Nutritional deficiencies (1 source) Vitamin D deficiency, unspecified; Translations: [Vitamin D deficiency, unspecified] Onset: 06-18-2024 Chronic Osteoarthritis (4 sources) Osteoarthritis of knee; Translations: [Osteoarthritis of knee, unspecified] Onset: 05-03-2011 05-03-2011 Chronic Other and ill-defined heart disease (1 source) Heart disease, unspecified; Translations: [Heart disease, unspecified] Onset: 06-18-2024 Chronic Other connective tissue disease (2 sources) History of total knee arthroplasty; Translations: [Presence of unspecified artificial knee joint] Onset: 04-15-2012 04-15-2012 Chronic Other injuries and conditions due to external causes (1 source) Encounter for examination and observation following other accident; Translations: [Encounter for examination and observation following other accident] Onset: 12-30-2024 Episodic Other lower respiratory disease (1 source) Hypoxemia; Translations: [Hypoxemia] Onset: 10-23-2024 Episodic Other nutritional; endocrine; and metabolic disorders (2 sources) Morbid obesity; Translations: [Morbid (severe) obesity due to excess calories] Onset: 02-20-2012 06-18-2021 Chronic Other nutritional; endocrine; and metabolic disorders (2 sources) Obesity; Translations: [Obesity, unspecified] 02-20-2012 Chronic Other nutritional; endocrine; and metabolic disorders (1 source) Morbid (severe) obesity due to excess calories; Translations: [Morbid (severe) obesity due to excess calories] Onset: 10-23-2024 Chronic Other nutritional; endocrine; and metabolic disorders (1 source) Body mass index (BMI) 50.0-59.9, adult; Translations: [Body mass index [BMI] 50.0-59.9, adult] Onset: 10-23-2024 Chronic Other nutritional; endocrine; and metabolic disorders (1 source) Morbid (severe) obesity with alveolar hypoventilation; Translations: [Morbid (severe) obesity with alveolar hypoventilation] Onset: 10-23-2024 Chronic Other nutritional; endocrine; and metabolic disorders (1 source) Hypocalcemia; Translations: [Hypocalcemia] Onset: 03-16-2024 Chronic Phlebitis; thrombophlebitis and thromboembolism (1 source) 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; Translations: [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] Onset: 10-23-2024 Chronic Phlebitis; thrombophlebitis and thromboembolism (1 source) Acute embolism and thrombosis of unspecified deep veins of unspecified lower extremity; Translations: [Acute embolism and thrombosis of unspecified deep veins of unspecified lower extremity] Onset: 10-23-2024 Episodic Residual codes; unclassified (1 source) Obstructive sleep apnea (adult) (pediatric); Translations: [Obstructive sleep apnea (adult) (pediatric)] Onset: 10-23-2024 Chronic Respiratory failure; insufficiency; arrest (adult) (1 source) Acute and chronic respiratory failure with hypoxia; Translations: [Acute and chronic respiratory failure with hypoxia] Onset: 03-03-2024 Chronic Urinary tract infections (5 sources) Acute cystitis without hematuria; Translations: [Lower urinary tract infectious disease] Onset: 08-26-2012 08-26-2012 Episodic Past or Other Problems Problem Classification Problem Date Documented Da te Episodic/Chronic Abdominal pain (3 sources) Unspecified abdominal pain; Translations: [Right flank pain] Onset: 7 06-19-2017 Episodic Deficiency and other anemia (1 source) Anemia, unspecified; Translations: [Anemia, unspecified] Onset: 4 Episodic Genitourinary symptoms and ill-defined conditions (1 source) Dysuria; Translations: [Dysuria] Onset: 4 Episodic Other and unspecified benign neoplasm (1 [...] diseases of intestine] Onset: 7 Episodic Other lower respiratory disease (1 source) Shortness of breath; Translations: [Shortness of breath] Onset: 4 Episodic Other non-traumatic joint disorders (1 source) Pain in left shoulder; Translations: [Pain in left shoulder] Onset: 4 Episodic Other screening for suspected conditions (not mental disorders or infectious disease) (3 sources) Mammography abnormal; Translations: [Other abnormal and inconclusive findings on diagnostic imaging of breast] Onset: 3 04-02-2013 Episodic Pulmonary heart disease (2 sources) Pulmonary embolism; Translations: [Other pulmonary embolism without acute cor pulmonale] Onset: 1 06-18-2021 Episodic Spondylosis; intervertebral disc disorders; other back problems (1 source) Spinal stenosis, cervical region; Translations: [Spinal stenosis, cervical region] Onset: 5 Episodic Unclassified (1 source) Family history of malignant neoplasm of digestive organs; Translations: [Family history of malignant neoplasm of digestive organs] Onset: 7 Episodic Results Test Name Value Interpretation Reference Range Facility [facility] 09-07-2019 Anion gap [Moles/Vol] 4 mmol/L Low 5-16 [facility] Comment on above: Performed By: #### L 500.49217, L500.06712 #### [facility] [address] [place] [address] Calcium [Mass/Vol] 8.8 mg/dL Normal 8.5-10.1 [facility] Comment on above: Performed By: #### L 500.81935, L500.63784 #### [facility] [place] [address] Chloride [Moles/Vol] 104 mmol/L Normal 98-107 [facility] Comment on above: Performed By: #### L 500.11894, L500.16565 #### [facility] [address] [place] [address] CO2 [Moles/Vol] 31 mmol/L Normal 21-32 [facility] Comment on above: Performed By: #### L 500.06058, L500.34659 #### [facility] [address] [place] [address] Creatinine [Mass/Vol] 0.856 mg/dL Normal 0.510-0.950 [facility] Comment on above: Result Comment: Maggy ents receiving either N-Acetylcysteine (NAC) or Metamizole prior to venipuncture, may have falsely depressed results. Performed By: #### L 500.73183, L500.00535 #### [facility] [address] [place] [address] Glucose [Mass/Vol] 106 mg/dL High 70-100 [facility] Comment on above: Result Comment: 70-1 00- Normal Fasting; 100-125 Impaired Fasting; greater than 126 on more than one result- Diabetes. ADA guidelines. Results may be falsely elevated after the administration of Sulfapyridine. Results may be falsely depressed after the administration of Sulfasalazine. Performed By: #### L 500.71772, L500.39648 #### [facility] [address] [place] [address] Potassium [Moles/Vol] 4.4 mmol/L Normal 3.5-5.1 [facility] Comment on above: Performed By: #### L 500.92752, L500.18838 #### [facility] [address] [place] [address] Sodium [Moles/Vol] 139 mmol/L Normal 136-145 [facility] Comment on above: Performed By: #### L 500.18851, L500.83252 #### [facility] [address] [place] [address] Urea nitrogen [Mass/Vol] 23 mg/dL Normal 7-26 [facility] Comment on above: Performed By: #### L 500.34555, L500.42535 #### [facility] [address] [place] [address] Urea nitrogen/Creatinine [Mass ratio] 26 mg/mg High 15-24 [facility] Comment on above: Performed By: #### L 500.45040, L500.10376 #### [facility] [address] [place] [address] GFR ESTon 09-07-2019 IF AMER Greater than 60 Normal [facility] Comment on above: Performed By: #### L 500.35640, L500.98154 #### [facility] [address] [place] [address] IF non-AFR AMER Greater than 60 Normal [facility] Comment on above: Performed By: #### L 500.70653, L500.24863 #### [facility] [address] [place] [address] ANES Dank 11-06-2018 ANES POST HNO ID: [id number] Author: Rajeev Perry Service: Anesthesiology Author Type: [...] Rajeev Perry MD PATIENT NAME: Mary Grace Anderson DATE: November 06, 2018 TIME: 9:44 AM PAGER/CONTACT #: Raudel [facility] ANES PREOPon 11-06-2018 ANES PREOP HNO ID: [id number] Author: Rajeev Perry Service: Anesthesiology Author Type: Physician Type: Anesthesia PreOp Filed: 11/06/2018 8:08 AM Note Text: ANESTHESIOLOGY DAY OF SURGERY NOTE SERVICE DATE: 11/06/2018 SERVICE TIME: 749 : 1945 Procedure(s) (LRB): EGD (N/A) Surgeon(s): Bull Dupont Estimated body mass index is 47.43 kg/m? as calculated from the following: Height as of this encounter: 165.1 cm (5' 5). Weight as of this encounter: 129.3 kg (285 lb). Most recent hematocrit and potassium results: Hematocrit 42.0 09/03/2018 Potassium 4.2 09/03/2018 ANES DOS/PREOP NOTE: Vitals: 11/03/18 1432 11/06/18 0732 BP: 110/61 Pulse: 76 Resp: 16 Temp: 36.1 ?C (97 ?F) SpO2: 94% Weight: 129.3 kg (285 lb) 129.3 kg (285 lb) Height: 165.1 cm (5' 5) 165.1 cm (5' 5) ACTIVE PROBLEM LIST Oa (Osteoarthritis) of Knee Morbid Obesity (Hcc) Htn (Hypertension) Dm (Diabetes Mellitus) ([facility]) Obesity Pe (Pulmonary Embolism) S/P Total Knee Arthroplasty Uti (Lower Urinary Tract Infection) Abnormal Mammogram, Unspecified Hamstring Tendonitis At Origin Dvt (Deep Vein Thrombosis) in ([facility]) Right Flank Pain PAST MEDICAL HISTORY Diagnosis Date - Chronic obstructive pulmonary disease (COPD) ([facility]) pt states this had resolved since her gastric bypass, denies SOB, does not use any inhalers - Chronic renal insufficiency Creatinine was 0.87 in 09-04-18 - Depressive disorder, not elsewhere classified - DM (diabetes mellitus) (HCC) resolved after the gastric bypass in 2010 - HTN (hypertension) - Kidney stones - Morbid obesity (HCC) 02/20/2012 Lost 190 pounds after Gastric bypass in 2011 - Neuropathy (HCC) mc LE; began when she was diabetic [...] by mouth once daily. cyanocobalamin/folic acid (VITAMIN P31-UAPCC ACID) 500-400 mcg tab Take 1 tablet [...] Bull Dupont Last Rate: 30 mL/hr at 11/06/18 0744 30 mL/hr at 11/06/18 0744 Allergies: ALLERGIES Allergen Reactions - Amoxicillin Anaphylaxis [...] Rajeev Perry MD PATIENT NAME: Mary Grace Anderson DATE: November 06, 2018 TIME: 8:07 AM CSN: [id number] Normal [facility] HISTORY PHYSICALon HISTORY PHYSICAL HNO ID: [id number] Author: Tressa Calles (Pa) Service: ? Author Type: Physician Laundry Supervisor Type: HANDP Filed: 11/06/2018 8:08 AM Note Text: HISTORY AND PHYSICAL EXAMINATION Mary Grace Anderson 1945 SERVICE DATE: 11/06/2018 SERVICE TIME: 7:56 [...] a sharp epigastric pain and food getting stuck; frequently requiring patient to vomit to release. [...] Date - Chronic obstructive pulmonary disease (COPD) ([facility]) pt states this had resolved since her gastric bypass, denies SOB, does not use any inhalers - Chronic renal insufficiency Creatinine was 0.87 in 09-04-18 - Depressive disorder, not elsewhere classified - DM (diabetes mellitus) ([facility]) resolved after the gastric bypass in 2010 - HTN (hypertension) - Kidney stones - Morbid obesity ([facility]) 02/20/2012 Lost 190 pounds after Gastric bypass in 2011 - Neuropathy ([facility]) mc LE; began when she was diabetic [...] BSO - PAST SURGICAL HISTORY OF Left 195 ORIF left arm - STEREO LOC FOR [...] mouth once daily. Yes cyanocobalamin/folic acid (VITAMIN J08-ZVGBJ ACID) 500-400 mcg tab Take 1 tablet [...] kg (285 lb) Height: 165.1 cm (5' 5) 165.1 cm (5' 5) Body mass index is 47.43 kg/m?. SIGNATURE: Tressa Calles PA-C PATIENT NAME: Mary Grace Anderson DATE: November 06, 2018 TIME: 7:56 AM PAGER/CONTACT #: Normal [facility] NURSING PROGon 11-06-2018 Protein mass conc HNO ID: [id number] Author: Maya (Rn) BETTY Chen Service: ? Author Type: Registered Nurse Type: Nursing Progress Note Filed: 11/06/2018 9:18 AM Note Text: Dr Dupont spoke with patient and daughter both verbalize understanding of discharge instructions and verbalize ready for discharge Normal [facility] OPERATIVE NOon 11-06-2018 OPERATIVE NO HNO ID: [id number] Author: Bull Dupont Service: Gastroenterology Surgery Author Type: Physician Type: Operative Report Filed: 11/10/2018 9:04 AM Note Text: [facility] - Operative Report - ASC MARY GRACE ANDERSON : 1945 AGE: 73. SEX: F PATIENT TYPE: A [facility] [place]: [facility] LOCATION: [facility] ATTENDING PHYSICIAN: BULL DUPONT CSN NUMBER: [id number] DATE OF SURGERY/PROCEDURE: 11/06/2018 INCISION/PROCEDURE START TIME: 8:32 AM INCISION CLOSE/PROCEDURE END TIME: 8:41 AM PREOPERATIVE DIAGNOSIS: Gastroesophageal reflux disease, history of gastric bypass. POSTOPERATIVE DIAGNOSIS: Gastroesophageal reflux disease, history of gastric bypass, 3-4 cm hiatal hernia. SURGEON: Bull Dupont MD TIRE MAKER: Nursing. SURGERY/PROCEDURE: Esophagogastroduodenoscopy with biopsy of gastric [...] tolerated the procedure well. Bull Dupont MD WJC:[id number] [facility] PT EDon 11-06-2018 PT ED HNO ID: [id number] Author: Chanell (Rn) BETTY Cedeno Service: ? Author Type: Registered Nurse Type: Patient Education Filed: 11/06/2018 7:44 AM Note Text: ONGOING PATIENT EDUCATION TOPIC Reinforced: pain scale Patient Name: Mary Grace Anderson Patient [facility]: [facility] Readiness To Learn Motivation To Learn: Eager Instruction Provided To: Patient Learning Response Patient/Family Response: Verbalizes understanding of: PAIN MANAGEMENT-Effective strategies to manage pain in addition to pain medication Method of Instruction: Individual instruction Follow-Up Plan: Complete - No need for follow-up Electronically signed by: Chanell Cedeno RN [facility] Surgical Tissue Examon 11-06 Surgical Tissue Exam Test performed at [place] [address] NAME: MARY GRACE ANDERSON REQUESTING: BULL DUPONT M.D. FINAL DIAGNOSIS: STOMACH, [...] 17:08 PRINTED: 11/11/2018 Page 1 of 1 [facility] [place] Comment on above: Performed By: #### S URG #### [place] [address] HOSPon 09-29-2018 HOSP Patient:Maggie Anderson MRN: Height:5' 5(1.651 m) Weight:No patient weight recorded within the last 30 days. Outpatient Medications as of 11/06/18: PARoxetine (PAXIL) 20 mg tablet pravastatin (PRAVACHOL) 40 mg tablet VESICARE 5 mg tablet Cholecalciferol, Vitamin D3, (VITAMIN D) 1,000 unit cap cyanocobalamin/folic acid (VITAMIN Y33-SITUB ACID) 500-400 mcg tab apixaban (ELIQUIS) 5 [...] OA (osteoarthritis) of knee [M17.10] Morbid obesity ([facility]) [E66.01] HTN (hypertension) [I10] DM (diabetes mellitus) ([facility]) [E11.9] Obesity [E66.9] PE (pulmonary embolism) [I26.99] S/P total knee arthroplasty [Z96.659] UTI (lower urinary tract infection) [N39.0] Abnormal mammogram, unspecified [R92.8] Hamstring tendonitis at origin [M76.899] DVT (deep vein thrombosis) in ([facility]) [O22.30, I82.409] Right flank pain [R10.9] Allergies: Amoxicillin Coumadin [Warfarin Sodium] Date Verified: 11/06/18 Lab Values No results within the last 30 days for the following basenames: K,HCT No progress notes entered within the past 30 days Normal [facility] OBSOLETEon 01-01-2018 OBSOLETE Refill (AGGENS4) JUSTINMARY GRACE ([id number]) 1945 F Date Time Provider Department 01/01/18 ALICIA CULLEN ([place]) AGGENS4 During your visit today, we recorded the following information about you: Allergies As of Date: 01/01/2018 Noted Allergy Reaction AMOXICILLIN 06/17/2017 4 - Hives COUMADIN (WARFARIN SODIUM) 02/20/2012 14 - Other: See Comments Comments: PATIENT ALMOST 'BLEED OUT Date Reviewed: 06/18/2017 Reviewed by: Karon (Rn) BETTY Greer - Fully Assessed Reason for Visit: [...] Encounter Status:Closed by PRIMITIVO MENDOSA on 04/07/18 Normal [facility] OBSOLETEon 12-09-2017 OBSOLETE Refill (AGGENS4) MARY GRACE ANDERSON ([id number]) 1945 F Date Time Provider Department 12/09/17 ALICIA CULLEN ([place]) AGGENS4 During your visit today, we recorded [...] Date Reviewed: 06/18/2017 Reviewed by: Karon (Rn) BETTY Greer - Fully Assessed Reason for Visit: [...] Encounter Status:Closed by PRIMITIVO MENDOSA on 04/07/18 [facility] CASE MANAGEMon 06-19-2017 CASE MANAGEM HNO ID: [id number] thor: Yazmin Pan) CapistranoService: Care ManagementAuthor Type: Social WorkerType: Care Mgt [...] needs: Pt to returnhome w/ resumption of [facility]S ASSISTANT [facility]Does the patient have an acute stroke diagnosis, or has the patient had astroke during this admission? NoHANDOFF COMMUNICATION:Payor Director Organizational: David Schwarz via MUSETRANSPORTATION ARRANGEMENTS:Car familyADDITIONAL CONTACT RESOURCES: n/aNo new skilled services added. [facility]x [facility]. SW left w/ David direct mail coordinator updating herof pt's discharge and return home with no new skilled services added atthis time.SIGNATURE: YEISON Reed PATIENT NAME: Mary Grace AndersonDATE: June 19, 2017 : 5:45 PM PAGER/CONTACT #: [phone] [facility] 06-19-2017 [facility] HNO ID: [id number] thor: Emily Osuna: (none)Author Type: PhysicianType: Discharge [...] Emily Basilio MD PATIENT NAME: Mary Grace Solano: June 19, 2017 : 1:38 PM PAGER: [facility] NURSING PROGon 06-19-2017 NURSING PROG HNO ID: [id number] thor: Chris LynRn) Rohith Peterson: (none)Author Type: Registered NurseType: Nursing Progress NoteFiled: 06/19/2017 7:10 PMNote Text: Nursing Progress NotePatient Name: Mary Grace EnriquezRN: [id number] Location: [id number]/[facility]*___ Daily Note:0938 - stable, alertThis note was completed by: Chris Peterson RN1910-IV removed, site wn, patient alert and stable [facility] NURSING PROG HNO ID: [id number] thor: Rohith Lyman Rn: (none)Author Type: Registered NurseType: Nursing Progress NoteFiled: 06/19/2017 3:02 AMNote Text: Nursing Progress NotePatient Name: Mary Grace EnriquezRN: [id number] Location: [id number]/[address]*___ Daily Note:1900: Assumed care of pt report taken from offgoing RN.2030: Assessments per NPR. Pt drinking miralax in gatorade, toleratingwell. Denies pain. All needs met and safety maintained.0030: Pt nearly finished miralax, states she is unable to totally finish.0300: Pt sleeping no distress noted. Safety maintainedThis note was completed by: Karon Greer RN [facility] PROGRESSon 06-19-2017 PROGRESS HNO ID: [id number] thor: Emily Osuna: (none)Author Type: PhysicianType: Progress NotesFiled: 06/19/2017 1:26 PMNote Text:RAPID OBSERVATION UNITPROGRESS NOTEName: Mary Grace AnthonyMRN: [id number] DATE: 06/19/2017SERVICE TIME: 1:08 PMHospital Medicine/Primary Attending: Emily Basilio MDASSESSMENT AND PLANPatient Active Hospital Problem List:1. Right flank pain3. Colon distention POA: Clinically UndeterminedSignificant stool burden- improved with high dose miralax/bowel prep- still some persistent pain, so will recheck KUB to make sure okay- likely discharge this afternoon2. Abnormal urinalysis POA: YesNegative Urine culture, no need for treatment.FABIO ClarkUBJECTIVEINTERVAL HPI:Feels better, pain not completely resolved, but [...] Basilio, MDDATE: June 19, 2017TIME: 1:08 PM [facility] XR ABDOMEN 1V SUPINEon 06-19 XR ABDOMEN [...] changes in the spine.IMPRESSION:Decrease stool burden. No obstruction.Embossing Clerk : PSCB Transcribe Date/Time: Jun 19 2017 10:34ADictated by : ELIDA HART MDThis examination was interpreted and the report reviewed and electronically signed by: ELIDA HART MD on Jun 19 2017 10:35AM [id number] [facility] CASE MANAGEMon 06-18-2017 CASE MANAGEM HNO ID: [id number] thor: Bere (Rn) BEKAH Daveervice: Care ManagementAuthor Type: Registered NurseType: Care Mgt Progress NoteFiled: 06/18/2017 3:51 PMNote Text:CARE MANAGEMENT PROGRESS NOTESERVICE DATE: 06/18/2017SERVICE TIME: 3:48 PM LOS: 0 daysNeeds Prior to Discharge: To Be DeterminedPatient [facility] [place] 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 CMcalled to notify them that patient was admitted under obs to 5th floor [facility] but planned to return home with agency's services. CM will follow.SIGNATURE: Bere Dave RN PATIENT NAME: Mary Grace SeymourTE: June 18, 2017 : 3:47 PM PAGER/CONTACT #: [phone] [facility] CASE MGT INIT Miri 2016 CASE MGT INIT RE HNO ID: [id number] thor: Bere (Rn) BEKAH Daveervice: Care ManagementAuthor Type: Registered NurseType: Care Mgt Initial AssessmentFiled: 06/18/2017 10:50 AMNote Text:CARE MANAGEMENT: ASSESSMENT AND DISCHARGE PLANSERVICE DATE: 06/18/2017SERVICE TIME: 10:22 AMPRIMARY CARE PHYSICIAN:BILLY Ontiveros [place]: [phone] STATUS: ObservationPOTENTIAL DISCHARGE PLANSHomeHome CareTo Be DeterminedPatient/Representa tive Stated Goals: Return home granddaughter and p9itqfb grandchildrenNeeds Prior to Discharge: To Be DeterminedHealth Insurance: [facility] Medicare and MedicaidLiving Arrangement: HomeLives With: Grand daughter and great grand childrenFinancial Resources: RetiredPrimary Contact:Extended Emergency Contact InformationPrimary Emergency Contact:Guera Slaterddress: Relation:DaughterSupport waqar: YesOther Important Patient Contacts: NoneCAREGIVER ASSESSMENT:Caregiver is ready, willing and able to meet the patient's needs asrecommended by the inter-professional team? YesPatient's transition needs and plan for meeting these needs: Return [facility]with [facility]e the patient have an acute stroke diagnosis, or has the patient had astroke during this admission? NoADVANCE DIRECTIVES:Does Patient Have Advance Directives? Yes: Durable Power of Fisheries Management Biologist forHealth Care: Mariajose Bonds(daughter) [phone] , copy is in chartDoes Patient Have Concerns About Advance Directives? NoPRIOR TO ADMISSION:Baseline Mental Status: Alert AND Oriented, Person, Place , Time andSituationFunctional Status: Needs AssistanceDoes Patient Currently Receive Any Community Services or Home Care? [facility] [place] [facility] Prior to Admission: Tub bench/chairWalkerWheelchairG rab bars [...] days? NoHas the Patient Been in a Fci Facility in the Past 30 days? NoFREEDOM OF CHOICE EXPLAINED:JONELLE COMMUNICATION:PRIMARY CARE PHYSICIAN:BLILY Ontiveros [place]: [phone] met with patient in room. Patient admitted for right flank pain andcolon distension. Patient lives at home with her granddaughter and greatgrand children. She receives assistance from [facility] x3/week from [facility] in [place] to help assist her with housework and help her to bathe.Patient has CW through [facility] [phone]. Patient spokewith her case coordinator this am to make her aware she was in the hospital.Patient's daughter available for transport home. Anticipate no additionalskilled needs.SIGNATURE: Bere Dave RN PATIENT NAME: Mary Grace AndersonDATE: June 18, 2017 : 10:22 AM PAGER/CONTACT #: [phone] [facility] CONSULTon 06-18-2017 CONSULT HNO ID: [id number] thor: Yael Castellanos CroweService: GastroenterologyAuthor Type: Nurse PractitionerType: ConsultsFiled: 06/18/2017 12:48 [...] similar presentation last month andwas seen in [place] ED where she lives and states CT was essentiallynormal except for gastritis. CT abd.pel on admission showed No evidenceof [...] mouth three timesdaily. Disp: Rfl: 06/17/[address] [place] [address] medications:gabapentin 300 mg cap(s) (NEURONTIN) 300 mg [...] Temp Temp src Pulse Resp SpO2 Height Vqejki90/27/17 0700 131/78 36.5 ?C (97.7 ?F) Oral [...] 85 18 98 % 170.2 cm (5' 7)133.4 kg (294 lb)Body mass index is 46.81 [...] the last 24 hours.Invalid input(s): PTCMP:Recent Labs NA 140K 4.3CHLOR 106CO2 22*BUN 20CREAT 0.72GLUC 75TPROT 6.8CA 8.7TBILI 0.3ALKPHOS 51ALT 13AST 17ANION 12Liver Function, Amylase, Lipase:Recent Labs TPROT 6.8ALB 3.7ALT 13AST 17ALKPHOS 51TBILI 0.3LIPASE 27Renal Panel:Recent Labs CREAT 0.72BUN 20GLUC 75CA 8.7CHLOR 106K 4.3CO2 22*NA 140SIGNATURE: Yael Manning, [place] PATIENT NAME: Mary Grace AndersonDATE: June 18, 2017 : 11:41 AM PAGER: [phone] [facility] NURSING PROGon 06-18-2017 NURSING PROG HNO ID: [id number] thor: Edward (Rn) Beau, RNService: (none)Author Type: Registered NurseType: Nursing Progress NoteFiled: 06/18/2017 7:04 PMNote Text: Nursing Progress NotePatient Name: Mary Grace EnriquezRN: [id number] Location: [place] [address]/[place] [address]*___ Daily Note:1530-This RN assumed care of this patient from BETTY Perez. Pt assessmentcomplete. Pt AANDOX3. Pt denies CP,SOB,NANDV,numbness,tingli ng, HAMMER, ordizziness. Pt started on Miralax and Gatorade bowel prep, tolerating, hashad 1 BM since starting prep. Pt tolerating a full liquid diet. Pt statesshe is no longer having pain like she did before. Call light in reach.Pt provided a BSC educating on calling for help before getting oob, ptverbalizes understanding.1645-Pt daughter called, updated on POC with pt permission.1800-Pt tolerated full liquid diet. Pt has had second BM. Toleratingdrinking bowel prep.This note was completed by: Edward Yanez RN [facility] PROGRESSon 06-18-2017 PROGRESS HNO ID: [id number] thor: Emily Osuna: (none)Author Type: PhysicianType: Progress NotesFiled: 06/18/2017 10:34 AMNote Text:RAPID OBSERVATION UNITPROGRESS NOTEName: Mary Grace EnriquezRN: [id number] DATE: 06/18/2017SERVICE TIME: 10:27 AMHospital Medicine/Primary Attending: Emily Basilio, MDASSESSMENT AND PLANPatient Active Hospital Problem List:1. Right flank pain3. Colon distention POA: Clinically UndeterminedDiscussed with GI-- Recheck xray today. If distension worsening, will needdecompressive colonoscopy today, if improved, will do prep and plan forcolonoscopy tomorrow.2. Abnormal urinalysis POA: YesAwait culture.Emily Basilio MDSUBJECTIVEINTERVAL HPI:Some improvement of symptoms, passing gas overnight. [...] HomePlan of care discussed with: PatientSIGNATURE: Emily Basilio MDDATE: June 18, 2017TIME: 10:27 AM [facility] XR ABD 2V SUPINE W UPR/DECUB /CTLon 12-27-2017 XR ABD 2V SUPINE W UPR/DECUB/CTL * [...] MONTIEL MD on Jun 18 2017 11:48AM [id number] [facility] ALLIED HEALTHon 06-17-2017 ALLIED HEALTH HNO ID: [id number] thor: Janette Guerreroervice: (none)Author Type: (none)Type: Allied HealthFiled: 06/17/2017 3:43 PMNote Text: Radiology Service Progress NotePATIENT NAME: Mary Grace EnriquezRN: [id number] OF SERVICE: June 17, 2017TIME: 3:43 PMPATIENT IDENTITY VERIFICATION COMPLETED USING TWO (2) METHODS: Patientconfirmed name verbally and ID band matches..PATIENT GENDER DATA: Female. status: : NoBreastfeeding status: NO.PATIENT RELEVANT IMPLANT DATA REVIEWED: Not ApplicableRADIOLOGY DEPARTMENT: CT; Exam(s) Completed: Abdomen/PelvisPERIPHERAL IV DATA: Not applicableSIGNED BY: Janette Arreguin 2016 3:43 PM Normal [facility] CBC and Differentialon 06-17 Abs Baso 0.03 k/uL Normal <0.11 [facility] Comment on above: Performed By: #### C BCDIF, CMP, LIPA ####[facility] [place], [place] [phone] Abs [place] 0.49 k/uL Normal <0.87 [facility] Comment on above: Performed By: #### C BCDIF, CMP, LIPA ####[place] [address] Abs Neut 4.64 k/uL Normal 1.45-7.50 [facility] Comment on above: Performed By: #### C BCDIF, CMP, LIPA ####[place] [address] Basophils/100 WBC Auto (Bld) 0.5 % Normal [facility] Comment on above: Performed By: #### C BCDIF, CMP, LIPA ####[place] [address] DTYPE Auto Diff Normal [facility] Comment on above: Performed By: #### C BCDIF, CMP, LIPA ####[place] [address] Eosinophils 0.10 10*3/uL Normal <0.46 [facility] Comment on above: Performed By: #### C BCDIF, CMP, LIPA ####[place] [address] Eosinophils/100 leukocytes 1.6 % Normal [facility] Comment on above: Performed By: #### C BCDIF, CMP, LIPA ####[place] [address] Erythrocyte distribution width Auto Ratio (RBC) 14.4 % Normal 11.5-15.0 [facility] Comment on above: Performed By: #### C BCDIF, CMP, LIPA ####[place] [address] Erythrocytes (RBC) 4.52 10*6/uL Normal 3.90-5.20 [facility] Comment on above: Performed By: #### C BCDIF, CMP, LIPA ####[place] [address] Hematocrit (HCT) 42.1 % Normal 36.0-46.0 [facility] Comment on above: Performed By: #### C BCDIF, CMP, LIPA ####[place] [phone] Hemoglobin mass conc (Bld) 13.7 g/dL Normal 11.5-15.5 [facility] Comment on above: Performed By: #### C BCDIF, CMP, LIPA ####[address] Lymphocytes 1.19 10*3/uL Normal 1.00-4.00 [facility] Comment on above: Performed By: #### C BCDIF, CMP, LIPA ####[place] [phone] Lymphocytes/100 leukocytes 18.4 % Normal [facility] Comment on above: Performed By: #### C BCDIF, CMP, LIPA ####[address] MCH 30.3 pG Normal 26.0-34.0 [facility] Comment on above: Performed By: #### C BCDIF, CMP, LIPA ####[address] MCHC mass conc (RBC) 32.5 g/dL Normal 30.5-36.0 [facility] Comment on above: Performed By: #### C BCDIF, CMP, LIPA ####[place] [phone] MCV 93.1 fL Normal 80.0-100.0 [facility] Comment on above: Performed By: #### C BCDIF, CMP, LIPA ####[address] Monocytes/100 leukocytes 7.6 % Normal [facility] Comment on above: Performed By: #### C BCDIF, CMP, LIPA ####[place] [phone] Neutrophils/100 WBC Auto (Bld) 71.9 % Normal [facility] Comment on above: Performed By: #### C BCDIF, CMP, LIPA ####[place] [phone] [place], [place] [phone] Platelet mean volume (PMV) 10.0 fL Normal 9.0-12.7 [facility] Comment on above: Performed By: #### C BCDIF, CMP, LIPA ####[address] [phone] Platelets 235 10*3/uL Normal 150-400 [facility] Comment on above: Performed By: #### C BCDIF, CMP, LIPA ####[address] [phone] WBC (Leukocytes) 6.45 10*3/uL Normal 3.70-11.00 [facility] Comment on above: Performed By: #### C BCDIF, CMP, LIPA ####[address] [phone] CT ABD/PEL WO IVCONon 2016 CT ABD/PEL [...] result in clinically relevant disease to these organs.Embossing Clerk: ARMANDO Transcribe Date/Time: Jun 17 2017 4:00PDictated by : VERONIQUE SHEPHERD MDThis examination was interpreted and the report reviewed and electronically signed by: VERONIQUE SHEPHERD MD on Jun 17 2017 4:15PM [id number] Normal [facility] Comp Metabolic Panelon 06-17 Alanine aminotransferase (ALT) 13 U/L Normal 0-45 [facility] Comment on above: Performed By: #### C BCDIF, CMP, LIPA ####[address] [phone] Albumin 3.7 g/dL Normal 3.5-5.0 [facility] Comment on above: Performed By: #### C BCDIF, CMP, LIPA ####[place] [address] Alkaline phosphatase (ALP) 51 U/L Normal 40-150 [facility] Comment on above: Performed By: #### C BCDIF, CMP, LIPA ####[place] [address] Anion gap 12 mmol/L Normal 9-18 [facility] Comment on above: Performed By: #### C BCDIF, CMP, LIPA ####[place] [address] Aspartate aminotransferase (AST) 17 U/L Normal 7-40 [facility] Comment on above: Performed By: #### C BCDIF, CMP, LIPA ####[place] [address] Bilirubin (total) 0.3 mg/dL Normal 0.0-1.5 [facility] Comment on above: Performed By: #### C BCDIF, CMP, LIPA ####[place] [address] Calcium 8.7 mg/dL Normal 8.5-10.5 [facility] Comment on above: Performed By: #### C BCDIF, CMP, LIPA ####[place] [address] Chloride 106 mmol/L Normal 98-110 [facility] Comment on above: Performed By: #### C BCDIF, CMP, LIPA ####[place] [phone] CO2 22 mmol/L Low 23-32 [facility] Comment on above: Performed By: #### C BCDIF, CMP, LIPA ####[place] [phone] Creatinine 0.72 mg/dL Normal 0.70-1.40 [facility] Comment on above: Performed By: #### C BCDIF, CMP, LIPA ####[place] [phone] eGFR (non-black) mL/min/{1.73_m2} Normal >60 [facility] Comment on above: Performed By: #### C BCDIF, CMP, LIPA ####[place] [phone] Glucose mass conc 75 mg/dL Normal 65-100 [facility] Comment on above: Performed By: #### C BCDIF, CMP, LIPA ####[place] [phone] Potassium molar conc 4.3 mmol/L Normal 3.5-5.0 [facility] Comment on above: Performed By: #### C BCDIF, CMP, LIPA ####[place] [phone] Protein 6.8 g/dL Normal 6.0-8.4 [facility] Comment on above: Performed By: #### C BCDIF, CMP, LIPA ####[place] [phone] Sodium 140 mmol/L Normal 132-148 [facility] Comment on above: Performed By: #### C BCDIF, CMP, LIPA ####[place] [phone] Urea nitrogen 20 mg/dL Normal 8-25 [facility] Comment on above: Performed By: #### C BCDIF, CMP, LIPA ####[place] [phone] ED NOTEon 06-17-2017 ED NOTE HNO ID: [id number] Author: Maggie (Rn) BETTY Wallace Service: (none) Author Type: Registered Nurse Type: ED Notes Filed: 06/17/2017 2:43 PM Note Text: Bed: 18-ED Expected date: Expected time: Means of arrival: Comments: CEMS20 - 71F Normal [facility] ED PROV NOTEon 06-17-2017 ED PROV NOTE HNO ID: [id number] thor: FABIO Duongervice: Emergency MedicineAuthor Type: PhysicianType: ED Provider NotesFiled: 06/17/2017 5:58 PMNote Text:ED Provider NotePatient Name: Mary Grace CoxN: [id number] DATE: 06/17/17HistoryPatient presents with:Flank Pain: right side [...] daughter for the holidays, PCP out of [place].History provided by: Patient and medical recordsPAST MEDICAL [...] * Other: See Comments PATIENT ALMOST 'BLEED OUTReview of SystemsConstitutional: Negative for chills, fever and [...] normal limitsLIPASE BLOOD (AK,AV,EU,FV,HL,KAYLEIGH,MM,SP)CBC + AUTO DIFF (AK,AV,EU,FV,HL,KAYLEIGH,MM,SP)URI NE CULTURE (AK,AV,EU,FV,HL,KAYLEIGH,MM,SP)Pro ceduresMedical Decision Making / [...] agreeable.5:44 PM -admit obs; discussed w/ Dr. Cobb.The attending who evaluated and managed this patient was Dr. Marquez.Plan:The patient was admitted to [facility]. Discussed w/ Dr. Cobb.Consent: A procedure or transfusion was performed - MADELYN Burr-Mirlandecountaron Diagnosis ICD-10-CM1. Acute cystitis without hematuria N30.002. Right flank pain R10.9PlanThe Patient was ADMITTED TO: Regular nursing floor.Condition at time of disposition: stableSIGNATURE: MADELYN Lugo-Chapito (MADELYN Roberts06/17/17 1744ATTENDING ATTESTATION NOTE:I have personally performed a face to face assessment of the patient andhave reviewed the PA/SENIOR LABEL SPECIALIST note. My anderson findings include:History: C/o RLQ pain w/ rad to back, x 2 days, h/o stones, denies N/V/D,tried TylenolExam: AFVSS, NAD, abd s, BLQ and suprapubic ttp, BS hypoactive, noguard/reboundAssessment/Pl an: Labs, urine, CTErin Blanca Marquez MD06/17/17 9526 Normal [facility] HISTORY PHYSICALon 7 HISTORY PHYSICAL HNO ID: [id number] thor: Lashell Escobar) KoltonService: General Internal MedicineAuthor Type: Nurse PractitionerType: HANDPFiled: 06/17/2017 11:52 PMNote Text:HISTORY AND PHYSICAL EXAMINATIONSERVICE DATE: 06/17/2017SERVICE TIME: 1999PRCEN[facility]ITALRY [facility] PHYSICIAN: GINA Ontiveros Chi COMPLAINT: Right [...] she was seen in the hospital in [place] for similarright low back/abdominal pain and that time she had nausea/vomiting. Tellsme her testing was normal then.Admits to following outside on the concrete last Friday on [facility]. States she was not hurt, and got [...] * Other: See Comments PATIENT ALMOST 'BLEED OUTCOMPLETE REVIEW OF SYSTEMS:GENERAL: denies weight loss, malaise [...] Temp Temp src Pulse Resp SpO2 Height Feyugh37/26/17 1925 150/82 36.4 ?C (97.5 ?F) Oral 71 20 99 % - -06/17/17 1801 136/66 - - 74 20 96 % - -06/17/17 1444 116/67 37 ?C (98.6 ?F) Oral 85 18 98 % 170.2 cm (5' 7)133.4 kg (294 lb)Body mass index is 46.05 [...] Lashell Hi CNP PATIENT NAME: Mary Grace AndersonDATE: June 17, 2017 : 8:36 PM PAGER/CONTACT #: Normal [facility] Lipaseon 06-17-2017 Lipase 27 U/L Normal [facility] Comment on above: Performed By: #### C BCDIF, CMP, LIPA ####[facility] [place], [place] [phone] NURSING PROGon 06-17-2017 NURSING PROG HNO ID: [id number] thor: Sasha (Rn) Rickey, RNService: (none)Author Type: Registered NurseType: Nursing Progress NoteFiled: 06/17/2017 9:55 PMNote Text: Nursing Progress NotePatient Name: Mary Grace CoxN: [id number] Location: [place] [address]/[place] [address]*___ Daily Note:1899- Report received from Matilda HERNÁNDEZ.2000- Pt states she started to have right flank pain this morning aghyrq94 am. Active bowl sounds. Pt aANDox3. GI on consult.This note was completed by: Sasha Lang RN Normal [facility] Urinalysis with Microscopico n 06-17-2017 Bilirubin, Urine Negative Normal Negative [facility] Comment on above: Performed By: #### U AWMIC ####[place] [address] Comments SEE COMMENT Normal [facility] Comment on above: Result Comment: Micr oscopic Examination Performed Performed By: #### U AWMIC ####[place] [address] Erythrocytes (RBC) 0-5 Critically abnormal Negative [facility] Comment on above: Performed By: #### U AWMIC ####[place] [address] Hemoglobin mass conc (Bld) Negative Normal Negative [facility] Comment on above: Performed By: #### U AWMIC ####[place] [phone] Leukest Moderate Critically abnormal Negative [facility] Comment on above: Performed By: #### U AWMIC ####[address] pH of blood 6.0 [pH] Normal 5.0-8.0 [facility] Comment on above: Performed By: #### U AWMIC ####[address] Protein, Urine Negative Normal Negative [facility] Comment on above: Performed By: #### U AWMIC ####[address] Specific [place], Ur 1.008 Normal 1.005-1.030 [facility] Comment on above: Performed By: #### U AWMIC ####[place] [phone] Urine, bacteria in sediment Rare Critically abnormal Negative [facility] Comment on above: Performed By: #### U AWMIC ####[address] Urine, clarity Clear Normal Clear [facility] Comment on above: Performed By: #### U AWMIC ####[place] [phone] Urine, color Straw Critically abnormal Yellow [facility] Comment on above: Performed By: #### U AWMIC ####[place] [id number] Urine, epithelial cells in sediment SEE COMMENT Critically abnormal Negative [facility] Comment on above: Result Comment: Rare Squamous Epithelial Cells Performed By: #### U AWMIC ####[address] Urine, glucose presence Negative Normal Negative [facility] Comment on above: Performed By: #### U AWMIC ####[place] [phone] Urine, ketones presence Negative Normal Negative [facility] Comment on above: Performed By: #### U AWMIC ####[place] [phone] Urine, mucus presence in sediment Present Normal [facility] Comment on above: Performed By: #### U AWMIC ####[place] [phone] Urine, nitrite presence Negative Normal Negative [facility] Comment on above: Performed By: #### U AWMIC ####[facility] [place] [phone] Urine, urobilinogen <2.0 Normal <2.0 [facility] Comment on above: Performed By: #### U AWMIC ####[facility] [place], [place] [phone] WBC (Leukocytes) Many Critically abnormal Negative [facility] Comment on above: Performed By: #### U AWMIC ####[facility] [phone] Urine Cultureon 06-17-2017 Urine culture, bacteria Sp. Request/Comment: - Specimen received in preservative Culture Result - <10,000 CFU/ml Normal urogenital jhony Normal [facility] Comment on above: Performed By: #### C BCDIF, CMP, LIPA ####[place] [phone] Office Visit: UC: cat scratc h to L legon 12-19-2016 Documentation of current medications (procedure) Done Invalid Interpretation Code [facility] Work Phone: Fall risk assessment Yes Invalid Interpretation Code [facility] Work Phone: Tobacco use [facility] Unknown if ever smoked Invalid Interpretation Code [facility] Work Phone: SURGICAL PATHOLOGY, CONVERTE Don 01-17-2006 [facility] SURGICAL PATHOLOGY, CONVERTE Don 03-22-2005 [facility] Vital Signs Date Time Vital Sign Value Performing Clinician Cheryl oreilly 12-19-2016 16:20-0400 Body Temperature 98 [degF] Bogdan JOSHI [facility] Work Phone: 12-19-2016 16:20-0400 BP Diastolic 78 mm[Hg] Bogdan JOSHI [facility] Work Phone: 12-19-2016 16:20-0400 BP Systolic 130 mm[Hg] Bogdan JOSHI [facility] Work Phone: 12-19-2016 16:20-0400 Pulse (Heart Rate) 98 /min Bogdan JOSHI [facility] Work Phone: 12-19-2016 16:20-0400 Respiratory Rate 12 /min Bogdan JOSHI [facility] Work Phone: 12-19-2016 16:20-0400 Weight 133.36 kg Bogdan JOSHI [facility] Work Phone: Encounters Encounter Date Encounter Type Care Provider Facility Start: 01-10-2025 End: 01-10-2025 ambulatory Loi Cameron Facility:[facility] Start: 12-23-2024 End: 12-23-2024 Emergency department patient visit Teofilo Sheppard Facility:[facility] Start: 12-02-2024 End: 12-02-2024 ambulatory Bobby Pinto Facility:[facility] Start: 11-07-2024 End: 11-08-2024 Emergency department patient visit Bobby Pinto Facility:[facility] Start: 10-27-2024 End: 10-27-2024 ambulatory Bobby Pinto Facility:[facility] Start: 10-18-2024 ambulatory Shannon Marina Facility:[facility] Start: 10-17-2024 ambulatory Marlon Shay Facili ty:[facility] Start: 10-17-2024 End: 10-20-2024 Evaluation and management of inpatient Marlon Shay Facility:[facility] Start: 10-12-2024 End: 10-12-2024 ambulatory Bobby KHOURY Facility:[facility] Start: 10-04-2024 End: 10-04-2024 ambulatory Freddy KHOURY Facility:[facility] Start: 09-06-2024 End: 09-06-2024 ambulatory Loi Cameron Facility:[facility] Start: 08-09-2024 ambulatory Alejandra Villavicencio Facility: [facility] Start: 07-12-2024 End: 07-12-2024 ambulatory Bobby KHOURY Facility:[facility] Start: 06-28-2024 End: 06-28-2024 ambulatory Loi Cameron Facility:[facility] Start: 06-27-2024 ambulatory Bobby KHOURY Facility:[facility] Start: 06-20-2024 ambulatory [facility] Facility:[facility] Start: 05-26-2024 End: 05-26-2024 ambulatory Freddy KHOURY Facility:[facility] Start: 05-12-2024 End: 05-12-2024 ambulatory Sasha Flowers Facility:[facility] Start: 05-08-2024 End: 05-09-2024 Emergency department patient visit Walter Nance Facility:[facility] Start: 05-06-2024 End: 05-06-2024 ambulatory [facility] Facility:[facility] Start: 04-14-2024 End: 04-14-2024 ambulatory [facility] Facility:[facility] Start: 04-12-2024 End: 04-13-2024 ambulatory Bobby Pinto Facility:[facility] Start: 03-26-2024 End: 03-26-2024 [facility] Start: 03-23-2024 End: 03-23-2024 ambulatory [facility] Facility:[facility] Start: 03-09-2024 End: 03-09-2024 ambulatory Shavon Farmer NP Facility:[facility] Start: 03-03-2024 End: 03-03-2024 [facility] Facility:[facility] Start: 02-25-2024 ambulatory Bobby KHOURY Facility:[facility] Start: 02-24-2024 ambulatory Bobby Luna lity:[facility] Start: 02-15-2024 End: 02-15-2024 ambulatory Bobby KHOURY Facility:[facility] Start: 02-09-2024 End: 02-09-2024 ambulatory Loi Cameron Facility:[facility] Start: 02-02-2024 End: 02-02-2024 ambulatory Shavon Farmer BUILDING RENTAL MANAGER Facility:[facility] Start: 01-25-2024 End: 01-25-2024 ambulatory Bobby Pinto Facility:[facility] Start: 01-23-2024 End: 01-23-2024 ambulatory Shavon Farmer BUILDING RENTAL MANAGER Facility:[facility] Start: 01-21-2024 End: 01-21-2024 ambulatory Shavon Farmer BUILDING RENTAL MANAGER Facility:[facility] Start: 09-04-2018 End: 09-04-2018 Emergency department patient visit UNKNOWN PROVIDER Facility:[facility] Start: 06-17-2017 End: 06-19-2017 Ambulatory ALETHA COBB [facility] Start: 01-17-2006 Documentation procedure Brittany Mccloud MD Work Phone: [facility] Start: 01-17-2006 Historic EMR Kg Mccloud MD Work Phone: [facility] Start: 03-23-2005 Documentation procedure Kyler Li MD Work Phone: [facility] Start: 03-23-2005 Historic EMR Ciara suarez MD Work Phone: [facility] Procedures Date Procedure Procedure Detail Performing [...] (#1) [facility] Start: 06-23-2022 Advance Directive Discussion Advance Directive Discussion [facility] Start: 06-23-2022 Depression Assessment Depression Assessment [facility] Start: 09-04-2019 Hepatitis B surface antibody level LDL Cholesterol [facility] Start: 12-19-2016 End: 12-19-2016 Appointment Appointment [facility] Work Phone: Start: 09-02-2011 Pneumococcal Vaccine: 65+ (2 - PCV) Pneumococcal Vaccine: 65+ (2 - PCV) [facility] Start: 06-29-2011 Hemoglobin A1c/Hemoglobin.total in Blood HbA1C [facility] Start: 2011 Bone Density Screening Bone Density Screening [facility] Start: 1996 Shingrix Vaccine (1 of 2) Shingrix Vaccine (1 of 2) [facility] Start: 1965 Urine microalbumin profile DTaP,Tdap,Td Vaccine (1 - Tdap) [facility] Start: 1964 Hepatitis C Screening Hepatitis C Screening [facility] Start: 1956 3 comp foot exam completed Diabetic Foot Exam [facility] Start: 1956 Hepatitis B screening Urine Albumin:Creatinine Ratio [facility] Start: 1956 Hepatitis C antibody, confirmatory test Dilated Retinal Exam [facility] Start: 1945 Covid-19 Vaccine (#1) Covid-19 Vaccine (#1) [facility] Work Phone: Immunizations Immunization Date Immunization Notes Care Provider Anushka thomas 03-12-2012 influenza virus vacc ine, unspecified formulation Ciara Li MD Work Phone: [facility] Payers Date Payer Category Payer Self-pay 2023 Unknown [id number] 2018 Unknown [id number] 1945 Unknown [id number] 2.16. [id number] Unknown [id number] 2.16.8 40.1.143987.3.579.2.462 Unknown [id number] 2.16.8 40.1.326833.3.579.2.462 Unknown [id number] 2.16.8 40.1.857017.3.579.2.462 Unknown [id number] 2.16.8 40.1.212445.3.579.2.462 Unknown [id number] 2.16.8 40.1.446148.3.579.2.462 Unknown [id number] 2.16.8 40.1.713443.3.579.2.462 Unknown [id number] 2.16.8 40.1.699543.3.579.2.462 Unknown [id number] 2.16.8 40.1.753527.3.579.2.462 Unknown [id number] 2.16.8 40.1.360388.3.579.2.462 Unknown [id number] 2.16.8 40.1.150803.3.579.2.462 Unknown [id number] 2.16.8 40.1.859123.3.579.2.462 Unknown [id number] 2.16.8 40.1.382308.3.579.2.462 Unknown [id number] 2.16.8 40.1.740428.3.579.2.462 Unknown [id number] 2.16.8 40.1.053583.3.579.2.462 Unknown [id number] 2.16.8 40.1.620642.3.579.2.462 Unknown [id number] 2.16.8 40.1.634240.3.579.2.462 Unknown [id number] 2.16.8 40.1.459846.3.579.2.462 Unknown [id number] 2.16.8 40.1.836280.3.579.2.462 Unknown [id number] 2.16.8 40.1.353417.3.579.2.462 Unknown [id number] 2.16.8 40.1.205867.3.579.2.462 Unknown [id number] 2.16.8 40.1.100297.3.579.2.462 Unknown [id number] 2.16.8 40.1.804125.3.579.2.462 Unknown [id number] 2.16.8 40.1.321795.3.579.2.462 Unknown [id number] 2.16.8 40.1.545413.3.579.2.462 Unknown [id number] 2.16.8 40.1.423358.3.579.2.462 Unknown [id number] 2.16.8 40.1.498434.3.579.2.462 Unknown [id number] 2.16.8 40.1.434230.3.579.2.462 Unknown [id number] 2.16.8 40.1.448357.3.579.2.462 Unknown [id number] 2.16.8 40.1.351172.3.579.2.462 Unknown [id number] 2.16.8 40.1.075255.3.579.2.462 Unknown [id number] 2.16.8 40.1.281292.3.579.2.462 Unknown [id number] 2.16.8 40.1.812876.3.579.2.462 Unknown [id number] 2.16.8 40.1.029773.3.579.2.462 Unknown [id number] 2.16.8 40.1.084163.3.579.2.462 Unknown [id number] 2.16.8 40.1.607571.3.579.2.462 Unknown [id number] 2.16.8 40.1.607257.3.579.2.462 Unknown [id number] 2.16.8 40.1.275014.3.579.2.462 Unknown [id number] 2.16.8 40.1.769655.3.579.2.462 Unknown [id number] 2.16.8 40.1.075819.3.579.2.462 Unknown [id number] 2.16.8 40.1.924419.3.579.2.462 Unknown [id number] 2.16.8 40.1.537394.3.579.2.462 Social History Date Type Detail [facility] Start: 01-19-2019 History of Social function [facility] Start: 01-19-2019 Tobacco use panel [facility] Start: 1945 Sex Assigned At Not on file [facility] Equipment Procedure Code Equipment Code Equipment Origin al Text Equipment Identifier Dates Cement Bone Simp luisana P W/ Tobramycin 1gm - [id number] Start: 03-10-2012 Cement Bone Simp luisana P W/ Tobramycin 1gm - [id number] Start: 09-01-2012 Comp Fem 5 Rt Kn Cr Victorino Trthln - [id number] Start: 03-10-2012 Ins Tib 5 13mm X 3 Cndyl Stab - [id number] Start: 03-10-2012 Ins Tib 5 11mm X 3 Cs Trthln - [id number] Start: 09-01-2012 Comp Pat 10mm 35 mm Asym Trthln - [id number] Start: 03-10-2012 Comp Pat 10mm 35 mm Asym Trthln - [id number] Start: 09-01-2012 Screw Bn 3.5mm 4 0mm Dcp Lc Dcp - [id number] Start: 09-01-2012 History of Past illness Narrative 06-17-2017 Note Date & Type Note Facility 06-17-2017 History of Past i llness Narrative Problem Noted Date Diagnosed Date Resolved Date Abnormal urinalysis 06/17/2017 06/19/20 17 Colon distention 06/17/2017 06/19/2017 Rectal bleeding 07/28/2015 07/28/2015 Family history of colon cancer 07/28/2015 07/28/2015 History of colon polyps 07/28/201510/2015 documented as of this encounter (statuses as of 03/13/2023) [facility] Summary Purpose Family History No Family History Records FoundNo Family History Records FoundNo Family History Records FoundNo Family History Records FoundNo Family History Records FoundNo Family History Records Found Advance Directives No Advanced Directives Records FoundDocuments on File Type Date Recorded Patient Pay Station Attendant Expl anation Advance Directive(s) 08/27/2012 8:21 PM Advance Directive(s) 08/27/2012 9:37 AM Procedure Findings Note HNO ID: [id number] Author: Ermelinda Dupont Service: Gastroenterology Surgery Author Type: Physician Type: Brief Op Note Filed: 11/06/2018 8:52 AM Note Text: BRIEF OPERATIVE / PROCEDURE NOTE LOG ID: [id number] SURGERY/PROCEDURE DATE: 11/06/2018 INCISION/PROCEDURE START TIME: 8:32 AM INCISION CLOSE/PROCEDURE END TIME: 8:41 AM SURGEON(S)/PROCEDURALIST(S) AND TIRE MAKER(S): Surgeon(s) and Role: * Bull Dupont - Primary No Additional Staff SURGERY/PROCEDURE(S): EGD with biopsy gastric pouch ANESTHESIA: Monitored Anesthesia Care FINDINGS: 3-4 cm hiatal hernia ESTIMATED BLOOD LOSS: 0 ml SPECIMENS: gastric pouch COMPLICATIONS: None PRE-OP/PRE-PROCEDURE DIAGNOSIS: GERD POST-OP/POST-PROCEDURE DIAGNOSIS: Gastroesophageal reflux disease, esophagitis presence not specified [K21.9] 3-4 cm hiatal hernia SIGNATURE: Bull Dupont MD, FACS, [facility] PATIENT NAME: Mary Grace Anderson DATE: November 06, 2018 TIME: 8:51 AM PAGER/CONTACT #: Additional Source Comments INFORMATION SOURCE (unrecogn ized section and content) DATE CREATED AUTHOR 12/16/2017 [facility] DATE CREATED AUTHOR AUTHOR'S ORGANIZ ATION 11/19/2018 [facility] DATE CREATED AUTHOR AUTHOR'S ORGANIZ ATION 11/24/2018 [facility] DATE CREATED AUTHOR AUTHOR'S ORGANIZ ATION [facility]/07/2019 [facility] DATE CREATED AUTHOR AUTHOR'S ORGANIZ ATION 07/19/2021 [facility] DATE CREATED AUTHOR AUTHOR'S ORGANIZ ATION 01/15/2025 [facility] Source Comments (unrecognize d section and content) In the event this informatio n is protected by the Federal Confidentiality of Alcohol and Drug Abuse Patient Records regulations: The Federal rules restrict any use of the information to criminally investigate or prosecute any alcohol or drug abuse patient.[facility] the event this information is protected by the Federal Confidentiality of Alcohol and Drug Abuse Patient Records regulations: The Federal rules restrict any use of the information to criminally investigate or prosecute any alcohol or drug abuse patient.[facility] Care Teams (unrecognized sec tion and content) Boomboat Operator Relationship Specialty Start Date End Date Pcp, No, DREDGE OPERATOR SUPERVISOR PCP - General 01/25/10 08/20/10 Pcp, No, DREDGE OPERATOR SUPERVISOR PCP - General 09/11/10 04/22/11 Pcp, No, DREDGE OPERATOR SUPERVISOR PCP - General 05/03/11 06/24/11 Pcp, No, DREDGE OPERATOR SUPERVISOR PCP - General Family Medicine 07/27/15 07/27/15 Genna Mccarthy DO [address] [place] [address] [id number] PCP - General 07/28/15 09/14/15 Jefferson Roman Chi [address] [place] [address] [id number] PCP - General Gerontology 09/15/15 Celeste Benedict MD [address] [place] [id number] Primary Staff Physician Cardiology 09/21/14 6 FOR [...] BE BASED ON THE PRIMARY CLINICAL RECORDS. [employer] [facility]. provides no warranty or guarantee of the accuracy or completeness of information in this document.
--- NOTE | 2025-01-16 00:15 | ED.VIS.LOWEX ---
HPI History of Present Illness Chief Complaint: Lower Extremity Injury Informant: patient Narrative Narrative: Brought in by EMS from assisted living for evaluation pain left lower leg over last couple days. Had an injury December 23, 3 weeks ago coming out of the van. She is on Eliquis. 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 She was diagnosed with hematoma then had x-rays that were negative. She seen her PCP was told to put heat. States over the last couple days more swelling has been no new injuries. More pain. She is on [place] twice a day for back pain. She took it at 9 PM. She ambulates with a walker. Denies any new trauma. Prior similar symptoms: Yes [facility] Medical History Lives in assisted living facility Hematoma and contusion Obesity hypoventilation syndrome DVT (deep venous thrombosis) History of echocardiogram Cardiology follow-up encounter On home oxygen therapy Essential tremor Normocytic anemia Hydronephrosis Wears hearing aid Wears dentures Uses wheelchair Walker as ambulation aid Bladder disease Low iron Back pain Injury of head and neck Non-smoker Shortness of breath on exertion History of pain when walking History of edema Hx of peripheral neuropathy History of stress test Hiatal hernia Restless legs High cholesterol Chronic UTI GERD (gastroesophageal reflux disease) Arthritis GI bleed Pulmonary embolism Anxiety and depression Cystitis Segmental and somatic dysfunction of cervical region Diabetic neuropathy associated with type 2 diabetes mellitus Chronic pain following surgery or procedure Segmental and somatic dysfunction of pelvic region Facet arthropathy, lumbar Segmental and somatic dysfunction of thoracic region Segmental and somatic dysfunction of lumbar region Polycystic ovaries Osteoarthritis Neuropathy Diabetes Cataracts, both eyes History of DVT (deep vein thrombosis) Home Medications ?Medication ?Instructions ?Recorded ?Last Taken ?Type cholecalciferol (vitamin D3) 25 2,000 unit PO DAILY vitamin 12/29/15 09/05/24 History mcg (1,000 unit) tablet (Vitamin D3) pravastatin 40 mg tablet 40 mg PO QHS cholesterol 08/05/18 09/05/24 History primidone 50 mg tablet 100 mg PO TID tremors 03/18/19 01/10/25 History ascorbic acid (vitamin C) 500 mg 500 mg PO DAILY supplement 09/28/20 09/05/24 History tablet cyanocobalamin (vitamin B-12) 1,000 mcg IM QMONTH supplement 10/23/20 05/26/24 History 1,000 mcg/mL injection solution nystatin 100,000 unit/gram topical 1 applic topical Q8H PRN Skin 07/30/21 Unknown History powder Irritation apixaban 5 mg tablet (Eliquis) 5 mg PO BID blood thinner 09/30/21 01/08/25 History d-mannose 500 mg capsule 1,000 mg PO BID ssee md 12/05/21 09/05/24 History ferrous sulfate 325 mg (65 mg 325 mg PO QHS iron 03/19/23 09/05/24 History iron) tablet (Feosol) omeprazole 40 mg capsule,delayed 40 mg PO DAILY GERD 04/16/23 01/10/25 History release ondansetron HCl 8 mg tablet 8 mg PO Q8H PRN Nausea 04/16/23 Unknown History oxybutynin chloride 5 mg 5 mg PO DAILY OVERACTIVE BLADDER 04/16/23 09/05/24 History tablet,extended release 24 hr phenazopyridine 200 mg tablet 200 mg PO Q8H PRN Bladder Spasms 04/16/23 06/27/24 History (Pyridium) acetaminophen 325 mg tablet 650 mg PO Q4H PRN pain/ elevated 07/31/23 09/05/24 History temp vibegron 75 mg tablet (Gemtesa) 75 mg PO DAILY bladder #0 tabs 10/06/23 01/10/25 Rx fluticasone propionate 50 2 spray intranasal DAILY PRN 10/15/23 09/05/24 History mcg/actuation nasal allergy symptoms spray,suspension (24 Hour Allergy Relief) guaifenesin 100 mg/5 mL oral liquid 200 mg PO Q4H PRN cough 10/15/23 Unknown History mineral oil (Fleet Mineral Oil 118 ml TN DAILY PRN constipation 10/15/23 Unknown History enema) halobetasol propionate 0.05 % 1 applic topical BID PRN rash 10/31/23 06/27/24 History topical cream duloxetine 30 mg capsule,delayed 90 mg PO DAILY depression 11/20/23 01/10/25 History release magnesium hydroxide 400 mg/5 mL 30 ml PO QHS PRN constipation 03/26/24 Unknown History oral suspension (Milk of Magnesia) L.acidophil,salivari-Bifido 1 cap PO DAILY supplement 04/07/24 09/05/24 History bifidum-Strep thermoph 175 mg capsule cephalexin 500 mg capsule 500 mg PO QHS infection 05/04/24 09/05/24 History albuterol sulfate 2.5 mg/3 mL 2.5 mg inhalation Q2H PRN 05/08/24 Unknown History (0.083 %) solution for nebulization shortness of breath or wheezing albuterol sulfate 90 mcg/actuation 2 inh inhalation Q4H PRN shortness 05/08/24 Unknown History aerosol inhaler of breath or wheezing docusate sodium 100 mg capsule 100 mg PO QODAY stool softner 05/08/24 09/05/24 History (Col-Rite) gabapentin 300 mg capsule 300 mg PO TID nerve pain 10/17/24 01/10/25 History hydrocodone-acetaminophen 5-325mg 1 tab PO TID PRN PRN pain 10/17/24 Unknown History 5mg-325mg furosemide 40 mg tablet 40 mg PO DAILY diuretic 11/07/24 Unknown History furosemide 80 mg tablet 80 mg PO QDAY 11/07/24 Unknown History divalproex 500 mg tablet,delayed 500 mg PO BID 12/31/24 Unknown History release semaglutide 0.25 mg or 0.5 mg (2 0.25 mg subcut TU 12/31/24 12/28/24 History mg/3 mL) subcutaneous pen injector (Ozempic) Allergy/AdvReac Type Severity Reaction Status Date / Time ampicillin (From Unasyn) Allergy Severe Blisters Verified 01/15/25 23:44 on tongue /throat difficulty breathing sore tongue/ warfarin sodium (From Allergy Severe Low red Verified 01/15/25 23:44 Coumadin) blood cells Family History Father Colon cancer Hypertension Mother Hypertension Diabetes Grandmother Hypertension Surgical History Hx of surgical procedure History of bilateral cataract extraction History of tonsillectomy Hx of cystoscopy Hx of cystoscopy History of cystoscopy S/P hysterectomy H/O cardiac catheterization (05/22/11) History of cholecystectomy History of embolic filter insertion History of carpal tunnel surgery Total knee replacement status History of gastric bypass Social History housing: assisted living facility Smoking Status: Never smoker alcohol intake: current alcohol intake frequency: holidays/special occasions only substance use type: does not use what type of physical activity do you participate in: walking and aerobics frequency: 1-2 times per week ROS ROS ED Constitutional Constitutional ED: Denies fever(s) Cardiovascular Cardiovascular: Denies chest pain Respiratory/Chest Respiratory/Chest: Denies cough Gastrointestinal Gastrointestinal: Denies diarrhea or vomiting Musculoskeletal Musculoskeletal: Reports none and other Details: Left lower leg pain and swelling laterally Integumentary Denies rash or wounds Neurologic Neurologic: Denies weakness EXAM Physical Exam Const Vital Signs: 01/15/25 23:37 01/15/25 23:41 01/16/25 04:39 Temperature 98.5 F 98.5 F 98 F Temperature Source Oral Oral Pulse Rate 79 80 69 Respiratory Rate 18 18 18 Blood Pressure 142/67 H 142/67 H 120/54 L Blood Pressure Mean 92 92 76 Pulse Ox 99 99 97 Oxygen Delivery Method Room Air Nasal Cannula Oxygen Flow Rate (L/min) 3 Positive well nourished and well developed General Appearance ED: well developed HEENT normocephalic and atraumatic Eyes General Eye ED: Yes normal appearance of both eyes Neck full ROM Resp normal respiratory effort and normal air movement Cardio regular rate and regular rhythm GI soft to palpation Extremity Extremity Narrative: Left lower extremity. No calf tenderness soft compartments. Lateral distal leg there is soft tissue swelling no ecchymosis however tender palpation around the area. Skin is intact. No ankle tenderness. Pulses intact distally. Neuro oriented x3 Skin no rashes or lesions noted and no wounds MDM MDM MDM Narrative Medical decision making narrative: Interventions / MDM: Differential diagnosis: Hematoma, chronic anticoagulation, history of DVT Diagnosis considered but do not suspect: Fracture x-ray negative. My EKG interpretation: N/A Imaging independently reviewed and interpreted by myself: Left tib-fib 2 views: Soft tissue swelling. No fracture. Also read by radiology. External documents reviewed: N/A Test considered but not ordered:N/A ED course: Was worsening pain in the last couple days, will repeat x-ray. Will redosed with [place]. Bedside ultrasound performed by myself noted more superior aspect likely clots formation. Inferior there was dark fluid likely more new. She complained of more swelling. She is feeling better after ice and medications. Dhaval wrap was placed. She will continue ice she has [place] she is given follow-up with orthopedic service locally. Her knee revision was done years ago in [place] and she states her orthopedic doctor has retired. Discharged back to her assisted living facility. Re-evaluation: stable Disposition discussed with patient/family/significant other: Patient Case discussed with consulting clinician: N/A This note was generated with iClinical dictation software. It may contain incorrect words, spelling, and punctuation that were not noted in checking the note before signing. Radiography Diagnostic Testing: Clinical Impression(s) from Imaging Studies Tibia/Fibula X-Ray 01/15/25 23:59 IMPRESSION: No acute bony injury. Soft tissue hematoma in the mid lower leg. Reading Location: [place] [address] Discharge Plan Triage Chief Complaint: Lower Extremity Injury ED Provider: Jarad Darnell Dx/Rx/DC Orders Clinical Impression: Hematoma of left lower extremity, Chronic anticoagulation, History of deep vein thrombosis Instructions: ED Hematoma Prescriptions: No Action acetaminophen 325 mg tablet 650 mg PO Q4H PRN (Reason: pain/ elevated temp ) duloxetine 30 mg capsule,delayed release(DR/EC) 90 mg PO DAILY guaifenesin 100 mg/5 mL liquid 200 mg PO Q4H PRN (Reason: cough) mineral oil [Fleet Mineral Oil] Enema 118 ml TN DAILY PRN (Reason: constipation) Rx Instructions: discard any unused portion magnesium hydroxide [Milk of Magnesia] 400 mg/5 mL suspension 30 ml PO QHS PRN (Reason: constipation) cholecalciferol (vitamin D3) [Vitamin D3] 1,000 UNIT tablet 2,000 unit PO DAILY pravastatin 40 MG tablet 40 mg PO QHS primidone 50 MG tablet 100 mg PO TID ascorbic acid (vitamin C) 500 MG tablet 500 mg PO DAILY cyanocobalamin (vitamin B-12) 1,000 mcg/mL Solution 1,000 mcg IM QMONTH Rx Instructions: states is due the 4th of each month nystatin 100,000 unit/gram Powder 1 applic TOPICAL Q8H PRN (Reason: Skin Irritation) Eliquis 5 mg Tablet 5 mg PO BID halobetasol propionate 0.05 % cream 1 applic TOPICAL BID PRN (Reason: rash) d-mannose 500 mg Capsule 1,000 mg PO BID omeprazole 40 mg capsule,delayed release(DR/EC) 40 mg PO DAILY oxybutynin chloride 5 mg tablet extended release 24hr 5 mg PO DAILY ondansetron HCl 8 MG tablet 8 mg PO Q8H PRN (Reason: Nausea) phenazopyridine [Pyridium] 200 MG tablet 200 mg PO Q8H PRN (Reason: Bladder Spasms) ferrous sulfate [Feosol] 325 mg (65 mg iron) tablet 325 mg PO QHS Gemtesa 75 mg Tablet 75 mg PO DAILY Qty: 0 0RF fluticasone propionate [24 Hour Allergy Relief] 50 mcg/actuation spray,suspension 2 spray intranasal DAILY PRN (Reason: allergy symptoms) Rx Instructions: administer into each nostril L.acidoph,saliva-B.bif-S.therm 175 mg Capsule 1 cap PO DAILY albuterol sulfate 90 mcg/actuation HFA aerosol inhaler 2 inh inhalation Q4H PRN (Reason: shortness of breath or wheezing) albuterol sulfate 2.5 mg /3 mL (0.083 %) solution for nebulization 2.5 mg inhalation Q2H PRN (Reason: shortness of breath or wheezing) docusate sodium [Col-Rite] 100 mg capsule 100 mg PO QODAY furosemide 80 mg tablet 80 mg PO QDAY furosemide 40 mg Tablet 40 mg PO DAILY divalproex 500 mg tablet,delayed release (DR/EC) 500 mg PO BID Ozempic 0.25 mg or 0.5 mg (2 mg/3 mL) pen injector 0.25 mg subcut TU Rx Instructions: for 4 weeks cephalexin 500 mg capsule 500 mg PO QHS hydrocodone-acetaminophen 5-325 mg tablet 1 tab PO TID PRN PRN (Reason: pain) gabapentin 300 mg capsule 300 mg PO TID Primary Care Provider: Bobby Pinto Referrals: Bobby Pinto MD [Primary Care Provider] - Jay Dumont MD [Med Staff - Active Staff] - 1 Week Activity Restrictions/Additional Instructions: X-ray negative. Bedside ultrasound mixture of old blood and likely new fluid in the inferior aspect. Follow-up with Dr. Dumont for outpatient evaluation and treatment options. Continued Dhaval wrap. Continue to ice. Print Language: Afghan Disposition Disposition: Home, Self Care
[2025-01-16] MEDS: HYDROcodone Bitartrate/Apap 5/325 Tablet PO (00:36)
[2025-01-16 04:39] VITALS: BP 120/54; PULSE 69; RESP 18; TEMP 36.6; O2SAT 97
== END 2025-01-16 04:50 | disposition home or self-care (01) ==
PROVIDERS: Emergency Provider Emergency Medicine; PCP Family Medicine; Visit Provider Emergency Medicine
DX: M79.662 Pain in left lower leg (principal); E11.42 Type 2 diabetes mellitus with diabetic polyneuropathy; M79.89 Other specified soft tissue disorders; Z79.891 Long term (current) use of opiate analgesic; Z86.718 Personal history of other venous thrombosis and embolism; M54.9 Dorsalgia, unspecified; Z86.711 Personal history of pulmonary embolism; Z79.01 Long term (current) use of anticoagulants; E78.00 Pure hypercholesterolemia, unspecified; S80.12XD Contusion of left lower leg, subsequent encounter; X58.XXXD Exposure to other specified factors, subsequent encounter; K21.9 Gastro-esophageal reflux disease without esophagitis; Z98.84 Bariatric surgery status; Z90.710 Acquired absence of both cervix and uterus; Z90.49 Acquired absence of other specified parts of digestive tract
CPT/HCPCS: 73590; 99284

== ENCOUNTER → 2025-01-21 | Outpatient (REF) | payer MEDICARE, MEDICAID, SELFPAY ==
[2025-01-21 07:31] LABS: Mucous, Urine 0 SEEN /hpf (<or=2+); Red Blood Cells-Urine 0 SEEN /hpf (0-5)
--- OUTSIDE RECORDS SUMMARY | 2025-01-21 07:32 | XMS RPT_ITS | CCD ---
Author Organization [facility] CliniSyky Care Team Providers Care Ripsawyer Name Role Phone Bogdan Ewing Unavailable ALETHA COBB Unavailable Unavailable ALETHA COBB Unavailable Unavailable COLLETTE, KHALED Unavailable Unavailable PROVIDER, UNKNOWN Admitting Unavailable KHARI MCADAMS Attending Unavailable Pcp ELECTRONICS ASSEMBLER, No Primary Care Provider Unavailabl e Pcp ELECTRONICS ASSEMBLER, No Primary Care Provider Unavailabl e Pcp ELECTRONICS ASSEMBLER, No Primary Care Provider Unavailabl e Jan Taylor MD, Celeste Unavailable Pcp ELECTRONICS ASSEMBLER, No Primary Care Provider Unavailabl e Genna Mccarthy DO Primary Care Provider Jefferson Roman Chi Primary Care Provider Shavon Farmer NP Referring Unavailable Bobby Pinto Primary Care Unavailable Shavon Farmer NP Attending Unavailable [facility] Attending Unavailable Blair, Christopharon Primary Care Unavailable Blair, Christopher Primary Care Unavailable [facility] Attending Unavailable Bobby Adorno Attending Unavaila ble Blair, Christmoon Primary Care Unavailable Loi Cameron Referring Unavailable Loi Cameron Attending Unavailable Blair, Christmoon Primary Care Unavailable Blair, Christmoon Primary Care Unavailable Bobby Pinto Attending Unavailable Bobby Pinto Referring Unavailable Blair, Christmoon Primary Care Unavailable Bobby Pinto Attending Unavailable Bobby Pinto Referring Unavailable Teofilo Sheppard Referring Unavailable Blair, Christopharon Primary Care Unavailable Teofilo Sheppard Attending Unavailable Bobby Adorno Attending Unavaila ble [place], [facility] Unavailable Loi Cameron Referring Unavailable Loi Cameron Attending Unavailable [place], [facility] [place] Primary Care Unavailable Justin Angulo Attending Unavailable Ranney, Christopher Primary Care Unavailable Ranney, Christopher Referring Unavailable Ranney, Christopher Primary Care Unavailable Alejandra Villavicencio Attending Unavailable RanBobby Barrientos Attending Unavaila ble Ranney, Christopher Primary Care Unavailable RanBobby Barrientos Attending Unavaila ble [place], [facility] [place] Primary Care Unavailable Freddy Velarde Attending Unavailabl e [place], [facility] [place] Primary Care Unavailable Marlon Shay Admitting Unavailable Devika Jaimes Referring Unavailable Rosa Quintero Attending Unavailable Marlon Shay Consulting Unavailable Ranney, Christopher Primary Care Unavailable Ranney, Christopher Primary Care Unavailable RanneyBobby Attending Unavailable Ranney, Christopher Referring Unavailable Alejandra Villavicencio Attending Unavailable [place], [facility] [place] Primary Care Unavailable Loi Cameron Referring Unavailable Loi Cameron Attending Unavailable [place], Christopher Primary Care Unavailable [facility] [place] Attending Unavailable [place], [facility] [place] Primary Care Unavailable [place], [facility] [place] Primary Care Unavailable Jarad Darnell Attending Unavailable Walter Nance Attending Unavailable [place], [facility] [place] Primary Care Unavailable Freddy Velarde Attending Unavailabl e [place], [facility] Primary Care Unavailable RanBobby Barrientos Attending Unavaila ble [place], [facility] Primary Care Unavailable Shavon Farmer NP Attending Unavailable [place], [facility] [place] Primary Care Unavailable Loi Cameron Referring Unavailable Ranney, Christopher Primary Care Unavailable Loi Cameron Attending Unavailable Loi Cameron Referring Unavailable Loi Cameron Attending Unavailable Ranney, Christopher Primary Care Unavailable Marlon Shay Admitting Unavailable Devika Jaimes Referring Unavailable Rosa Quintero Attending Unavailable Ranney, Christopher Primary Care Unavailable Marlon Shay Consulting Unavailable Ingrid, Rosa Juanita Consulting Unavailable Ranney, Christopher Primary Care Unavailable Bobby Adorno Attending Unavaila Justin Oconnell Attending Unavailable Justin Angulo Consulting Unavailable Ranney, Christopher Referring Unavailable [place], [facility] Primary [facility] Unavailable Arnoldo Reyes Attending Unavailable Shannon Marina Attending Unavailable [facility] Primary Care Unavailable Justin Angulo Attending Unavailable [place], [facility] Primary Care Unavailable [place], [facility] Referring Unavailable Marleny MANAGER MISSION, Shavon Attending Unavailable [place], [facility] Primary Care Unavailable [place], [facility] [place] Referring Unavailable Sasha Flowers Attending Unavailabl berny Pinto, [facility] Referring Unavailable [facility] [place] Primary Care Unavailable Marleny MANAGER MISSION, Shavon Attending Unavailable [facility] [place] Primary Care Unavailable [facility] Referring Unavailable Marlon Shay Attending Unavailable [facility] Attending Unavailable [facility] Primary Care Unavailable [facility] Primary Care Unavailable Tico Posada Attending Unavailable Bobyb Adorno Attending Unavaila roberto [facility] Unavailable Allergies Allergy Classification Reported Allergen(s) Allergy Type Date of Onset Reaction(s) Facility (2 sources) warfarin drug allergy 7 [facility] Work Phone: (3 sources) amoxicillin; Translations: [AMOXICILLIN] Drug Allergy 7 Anaphylaxis [facility] Other [facility] (4 sources) warfarin; Translations: [WARFARIN SODIUM] Drug Allergy 2 Other: See Comments [facility] Repository (2 sources) Ampicillin; Translations: [AMPICILLIN] Drug Allergy 9 [facility] Repository Medications Completed/Discontinued Medications Medication Drug Class(es) Dates Sig (Normalized) Sig (Original) acetaminophen 500 mg oral tablet (2 sources) Start: 12-19-2016 ACETAMINOPHEN EXTRA STRENGTH 500 MG TABS ACETAMINOPHEN [id number] Bogdan JOSHI amitriptyline hydrochloride 25 mg oral tablet (2 sources) Tricyclic Antidepressant Start: 12-19-2016 AMITRIPTYLINE HCL 25 MG TABS AMITRIPTYLINE HCL 95766797570 Bogdan JOSHI AMOXICILLIN-POT CLAVULANATE (2 sources) Penicillin-class Antibacterial Start: 12-19-2016 AUGMENTIN 500-125 MG TABS 1 tablet twice daily AMOXICILLIN-POT CLAVULANATE 40444603851 Bogdan JOSHI denosumab 60 mg/ml injectable solution (2 sources) RANK Ligand Inhibitor Start: 12-19-2016 PROLIA 60 MG/ML SOLN DENOSUMAB 07379949059 Bogdan JOSHI DULoxetine 60 mg delayed release oral capsule (2 sources) Serotonin and Norepinephrine Reuptake Inhibitor Start: 12-19-2016 CYMBALTA 60 MG CPEP DULOXETINE HCL 19455002857 Bogdan JOSHI ergocalciferol 34179 unt oral tablet (2 sources) Provitamin D2 Compound Start: 12-19-2016 VITAMIN D (ERGOCALCIFEROL) 29061 UNIT CAPS ERGOCALCIFEROL 51952652442 Bogdan JOSHI FLUTICASONE PROPIONATE (2 sources) Corticosteroid Start: 12-19-2016 FLONASE ALLERGY RELIEF 50 MCG/ACT SUSP FLUTICASONE PROPIONATE 87035535875 Bogdan JOSHI furosemide 40 mg oral tablet (2 sources) Loop Diuretic Start: 12-19-2016 LASIX 40 MG TABS FUROSEMIDE 96520971089 Bogdan JOSHI gabapentin 300 mg oral tablet (2 sources) Anti-epileptic Agent Start: 12-19-2016 NEURONTIN 300 MG CAPS GABAPENTIN 06001179720 Bogdan JOSHI vitamin b 12 3 mg sublingual tablet (2 sources) Vitamin B12 B-12 [address] CYANOCOBALAMIN 50339625062 Bogdan JOSHI Problems Active Problems Problem Classification [...] respiratory failure with hypoxia] Onset: 03-03-2024 Chronic Unclassified (1 source) Low back pain, unspecified; Translations: [Low back pain, unspecified] Onset: 01-15-2025 Urinary tract infections (5 sources) Acute cystitis [...] Results Test Name Value Interpretation Reference Range [facility] 09-07-2019 Anion gap [Moles/Vol] 4 mmol/L Low 5-16 [facility] Comment on above: Performed By: #### L 500.37388, L500.73470 #### [facility] [address] [place] [address] 38887 Calcium [Mass/Vol] 8.8 mg/dL Normal 8.5-10.1 [facility] Comment on above: Performed By: #### L 500.98962, L500.21573 #### [facility] [address] [place] [address] 22519 Chloride [Moles/Vol] 104 mmol/L Normal 98-107 [facility] Comment on above: Performed By: #### L 500.91223, L500.02238 #### [facility] [address] [id number] CO2 [Moles/Vol] 31 mmol/L Normal 21-32 [facility] Comment on above: Performed By: #### L 500.28015, L500.04468 #### [facility] [address] [place] [address] Creatinine [Mass/Vol] 0.856 mg/dL Normal 0.510-0.950 [facility] Comment on above: Result Comment: Maggy ents receiving either N-Acetylcysteine (NAC) or Metamizole prior to venipuncture, may have falsely depressed results. Performed By: #### L 500.56401, L500.58575 #### [facility] [address] [place] [address] Glucose [Mass/Vol] 106 mg/dL High 70-100 [facility] Comment on above: Result Comment: 70-1 00- Normal Fasting; 100-125 Impaired Fasting; greater than 126 on more than one result- Diabetes. ADA guidelines. Results may be falsely elevated after the administration of Sulfapyridine. Results may be falsely depressed after the administration of Sulfasalazine. Performed By: #### L 500.99548, L500.10972 #### [facility] [address] [place] [address] Potassium [Moles/Vol] 4.4 mmol/L Normal 3.5-5.1 [facility] Comment on above: Performed By: #### L 500.42320, L500.27605 #### [facility] [place] [address] Sodium [Moles/Vol] 139 mmol/L Normal 136-145 [facility] Comment on above: Performed By: #### L 500.90941, L500.20367 #### [facility] [address] [place] [place] [address] Urea nitrogen [Mass/Vol] 23 mg/dL Normal 7-26 [facility] Comment on above: Performed By: #### L 500.38327, L500.64393 #### [facility] [address] [place] [address] Urea nitrogen/Creatinine [Mass ratio] 26 mg/mg High 15-24 [facility] Comment on above: Performed By: #### L 500.89010, L500.73725 #### [facility] [address] [place] [address] 44243 GFR ESTon 09-07-2019 IF AMER Greater than 60 Normal [facility] Comment on above: Performed By: #### L 500.50574, L500.91199 #### [facility] [address] [place] [address] 51317 IF non-AFR AMER Greater than 60 Normal [facility] Comment on above: Performed By: #### L 500.80995, L500.66768 #### [facility] [address] [place] [address] 25025 ANES Dank 11-06-2018 ANES POST HNO ID: [id number] Author: Rajeev Perry Service: Anesthesiology Author Type: [...] 06, 2018 TIME: 9:44 AM PAGER/CONTACT #: [facility] ANES PREOPon 11-06-2018 ANES PREOP HNO ID: [id number] Author: Rajeev Perry Service: Anesthesiology Author Type: Physician Type: Anesthesia PreOp Filed: 11/06/2018 8:08 AM Note Text: ANESTHESIOLOGY DAY OF SURGERY NOTE SERVICE DATE: 11/06/2018 SERVICE TIME: 749 : 1945 Procedure(s) (LRB): EGD (N/A) Surgeon(s): Bull Dupont Estimated body mass index is 47.43 kg/m? as calculated from the following: Height as of this encounter: 165.1 cm (5' 5"). Weight as of this encounter: 129.3 kg (285 lb). Most recent hematocrit and potassium results: Hematocrit 42.0 09/03/2018 Potassium 4.2 09/03/2018 ANES DOS/PREOP NOTE: Vitals: 11/03/18 1432 11/06/18 0732 BP: 110/61 Pulse: 76 Resp: 16 Temp: 36.1 ?C (97 ?F) SpO2: 94% Weight: 129.3 kg (285 lb) 129.3 kg (285 lb) Height: 165.1 cm (5' 5") 165.1 cm (5' 5") ACTIVE PROBLEM LIST Oa (Osteoarthritis) of Knee Morbid Obesity (Hcc) Htn (Hypertension) Dm (Diabetes Mellitus) (Hcc) Obesity Pe (Pulmonary Embolism) S/P Total Knee Arthroplasty Uti (Lower Urinary Tract Infection) Abnormal Mammogram, Unspecified Hamstring Tendonitis At Origin Dvt (Deep Vein Thrombosis) in (Hcc) Right Flank Pain PAST MEDICAL HISTORY Diagnosis Date - Chronic obstructive pulmonary disease (COPD) ([facility]) pt states this had resolved since her gastric bypass, denies SOB, does not use any inhalers - Chronic renal insufficiency Creatinine was 0.87 in 09-04-18 - Depressive disorder, not elsewhere classified - DM (diabetes mellitus) ([facility]) resolved after the gastric bypass in 2010 - HTN (hypertension) - Kidney stones - Morbid obesity ([facility]) 02/20/2012 Lost 190 pounds after Gastric bypass in 2011 - Neuropathy ([facility]) mc LE; began when she was [...] by mouth once daily. cyanocobalamin/folic acid (VITAMIN E26-PCACA ACID) 500-400 mcg tab Take 1 tablet [...] * Other: See Comments PATIENT ALMOST 'BLEED OUT" DOS EXAM: Adequate NPO status: Yes Anesthetic [...] November 06, 2018 TIME: 8:07 AM CSN: [id number] Normal [facility] HISTORY PHYSICALon 9 HISTORY PHYSICAL HNO ID: [id number] Author: Tressa Calles (Pa) Service: ? Author Type: Physician Campaign Advisor Type: HANDP Filed: 11/06/2018 8:08 AM Note Text: HISTORY AND PHYSICAL EXAMINATION Mary Grace Anderson 1945 SERVICE DATE: 11/06/2018 SERVICE TIME: 7:56 AM PRIMARY CARE PHYSICIAN: Jefferson Roman MD SURGEON: Surgeon(s) and Role: * Bull Dupont - Primary ANESTHESIA: Monitored Anesthesia Care DIAGNOSIS: Gastroesophageal reflux disease, esophagitis presence not specified [K21.9] PROCEDURE: Procedure(s): EGD (N/A) Subjective CHIEF COMPLAINT: "I have a lot of acid" HPI: This is a 73 year old female who presents with a 2 years history of frequent heartburn and intermittent epigastric discomfort. Patient is S/P gastric bypass in 2011, losing 190 pounds. Patient describes a discomfort after swallowing solid foods; c/o a sharp epigastric pain and food getting "stuck"; frequently requiring patient to vomit to release. [...] Date - Chronic obstructive pulmonary disease (COPD) ([facility]) pt states this had resolved since her gastric bypass, denies SOB, does not use any inhalers - Chronic renal insufficiency Creatinine was 0.87 in 09-04- - Depressive disorder, not elsewhere classified - DM (diabetes mellitus) ([facility]) resolved after the gastric bypass in [...] mouth once daily. Yes cyanocobalamin/folic acid (VITAMIN X46-IQCGF ACID) 500-400 mcg tab Take 1 tablet [...] * Other: See Comments PATIENT ALMOST 'BLEED OUT" COMPLETE REVIEW OF SYSTEMS: GENERAL: See HPI [...] kg (285 lb) Height: 165.1 cm (5' 5") 165.1 cm (5' 5") Body mass index is 47.43 kg/m?. SIGNATURE: Tressa Calles PA-C PATIENT NAME: Mary Grace Anderson DATE: November 06, 2018 TIME: 7:56 AM PAGER/CONTACT #: Normal [facility] NURSING PROGon 11-06-2018 Protein mass conc HNO ID: [id number] Author: Maya (Rn) LORENZO Chen Service: ? Author Type: Registered Nurse Type: Nursing Progress Note Filed: 11/06/2018 9:18 AM Note Text: Dr Dupont spoke with patient and daughter both verbalize understanding of discharge instructions and verbalize ready for discharge Normal [facility] OPERATIVE NOon 11-06-2018 OPERATIVE NO HNO ID: [id number] Author: Bull Dupont Service: Gastroenterology Surgery Author Type: Physician Type: Operative Report Filed: 11/10/2018 9:04 AM Note Text: [facility] - Operative Report - MARY GRACE ENRIQUEZ : 1945 AGE: 73. SEX: F PATIENT TYPE: A [facility] LOCATION: [facility] ATTENDING PHYSICIAN: BULL DUPONT CSN NUMBER: [id number] DATE OF SURGERY/PROCEDURE: 11/06/2018 INCISION/PROCEDURE START TIME: 8:32 AM INCISION CLOSE/PROCEDURE END TIME: 8:41 AM PREOPERATIVE DIAGNOSIS: Gastroesophageal reflux disease, history of gastric bypass. POSTOPERATIVE DIAGNOSIS: Gastroesophageal reflux disease, history of gastric bypass, 3-4 cm hiatal hernia. SURGEON: Bull Dupont MD CARBON PAPER MACHINE OPERATOR: Nursing. SURGERY/PROCEDURE: Esophagogastroduodenoscopy with biopsy of gastric [...] tolerated the procedure well. Bull Dupont MD WJC:[id number] /[id number] [facility] PT EDon 11-06-2018 PT ED HNO ID: [id number] Author: Chanell (Rn) LORENZO Cedeno Service: ? Author Type: Registered Nurse Type: Patient Education Filed: 11/06/2018 7:44 AM Note Text: ONGOING PATIENT EDUCATION TOPIC Reinforced: pain scale Patient Name: Mary Grace Anderson Patient [facility] Readiness To Learn Motivation To [...] 11-06 Surgical Tissue Exam Test performed at [place] [address] NAME: MARY GRACE ANDERSON REQUESTING: BULL DUPONT [...] PRINTED: 11/11/2018 Page 1 of 1 Normal [facility] Comment on above: Performed By: #### S URG #### [facility] [address] [address] HOSPon 09-29-2018 HOSP Patient:Maggie Anderson MRN: Height:5' 5"(1.651 m) Weight:No patient weight recorded within the last 30 days. Outpatient Medications as of 11/06/18: PARoxetine (PAXIL) 20 mg tablet pravastatin (PRAVACHOL) 40 mg tablet VESICARE 5 mg tablet Cholecalciferol, Vitamin D3, (VITAMIN D) 1,000 unit cap cyanocobalamin/folic acid (VITAMIN Y54-CNYWL ACID) 500-400 mcg tab apixaban (ELIQUIS) 5 [...] OA (osteoarthritis) of knee [M17.10] Morbid obesity ([facility]) [E66.01] HTN (hypertension) [I10] DM (diabetes mellitus) ([facility]) [E11.9] Obesity [E66.9] PE (pulmonary embolism) [I26.99] S/P total knee arthroplasty [Z96.659] UTI (lower urinary tract infection) [N39.0] Abnormal mammogram, unspecified [R92.8] Hamstring tendonitis at origin [M76.899] DVT (deep vein thrombosis) in ([facility]) [O22.30, I82.409] Right flank pain [R10.9] Allergies: Amoxicillin Coumadin [Warfarin Sodium] Date Verified: 11/06/18 Lab Values No results within the last 30 days for the following basenames: K,HCT No progress notes entered within the past 30 days Normal [facility] OBSOLETEon 01-01-2018 OBSOLETE Refill (AGGENS4) MARY GRACE ANDERSON ([id number]) 1945 F Date Time Provider Department 01/01/18 ALIICA CULLEN (POWER DIGGER OPERATOR) [facility] During your visit today, we recorded the following information about you: Allergies As of Date: 01/01/2018 Noted Allergy Reaction AMOXICILLIN 06/17/2017 4 - Hives COUMADIN (WARFARIN SODIUM) 02/20/2012 14 - Other: See Comments Comments: PATIENT ALMOST 'BLEED OUT" Date Reviewed: 06/18/2017 Reviewed by: Karon (Rn) [...] MENDOSA on 04/07/18 [facility] OBSOLETEon 12-09-2017 OBSOLETE Refill (AGGENS4) MARY GRACE ANDERSON ([id number]) 1945 F Date Time Provider Department 12/09/17 ALICIA CULLEN (POWER DIGGER OPERATOR) [facility]4 During your visit today, we recorded the following information about you: Frida Amaya MA 12/30/2017 2:35 PM Signed Patient stated that she will follow up with PCP for this medication Allergies As of Date: 12/09/2017 Noted Allergy Reaction AMOXICILLIN 06/17/2017 4 - Hives COUMADIN (WARFARIN SODIUM) 02/20/2012 14 - Other: See Comments Comments: PATIENT ALMOST 'BLEED OUT" Date Reviewed: 06/18/2017 Reviewed by: Karon (Lorenzo) LORENZO Greer - Fully Assessed Reason for [...] CASE MANAGEMon 06-19-2017 CASE MANAGEM HNO ID: [id number] thor: Yazmin Clarke Cap ([place]istranoService: Care ManagementAuthor Type: Social WorkerType: Care Mgt [...] needs: Pt to returnhome w/ resumption of INSERT MOLDING OPERATOR services [facility] the [facility] have an acute stroke diagnosis, or has the patient had astroke during this admission? NoHANDOFF COMMUNICATION:Payor Hammer Mill Operator: David Schwarz via MUSETRANSPORTATION ARRANGEMENTS:Car familyADDITIONAL CONTACT RESOURCES: n/aNo new skilled services added. Plan to resume Марина C for HHAservices only 3x weekly. SW left w/ David environmental marketing representative updating herof pt's discharge and return home with no new skilled services added atthis time.SIGNATURE: YEISON Reed PATIENT NAME: Mary Grace AndersonDATE: June 19, 2017 : 5:45 PM PAGER/CONTACT #: [phone] [facility] 06-19-2017 [facility] HNO ID: [id number] thor: Emily Osuna: (none)Author Type: PhysicianType: Discharge [...] Emily Basilio MD PATIENT NAME: Mary Grace AndersonDATE: June 19, 2017 : 1:38 PM PAGER: [facility] NURSING PROGon 06-19-2017 NURSING PROG HNO ID: [id number] thor: Rohith Fuchs Rn: (none)Author Type: Registered NurseType: Nursing Progress NoteFiled: 06/19/2017 7:10 PMNote Text: Nursing Progress NotePatient Name: Mary Grace EnriquezRN: [id number] Location: [place] [address]/[place] [address]*___ Daily Note:0938 - stable, alertThis note was completed by: Chris Peterson RN1910-IV removed, site wnl, patient alert and stable [facility] NURSING PROG HNO ID: [id number] thor: Rohith Lyman Rn: (none)Author Type: Registered NurseType: Nursing Progress NoteFiled: 06/19/2017 3:02 AMNote Text: Nursing Progress NotePatient Name: Mary Grace EnriquezRN: [id number] Location: [place] [address]/[place] [address]*___ Daily Note:1900: Assumed care of pt report taken from offgoing RN.2030: Assessments per NPR. Pt drinking miralax in gatorade, toleratingwell. Denies pain. All needs met and safety maintained.0030: Pt nearly finished miralax, states she is unable to totally finish.0300: Pt sleeping no distress noted. Safety maintainedThis note was completed by: Karon Greer RN [facility] PROGRESSon 06-19-2017 PROGRESS HNO ID: [id number] thor: Emily Osuna: (none)Author Type: PhysicianType: Progress NotesFiled: 06/19/2017 1:26 PMNote Text:RAPID OBSERVATION UNITPROGRESS NOTEName: Mary Grace EnriquezRN: [id number] DATE: 06/19/2017SERVICE TIME: 1:08 PMHospital Medicine/Primary Attending: [...] (Src) 97.6 (Oral) Resp 18 Ht 5' 7" (1.70m) Wt 298 lb 14.4 oz (135.6kg) [...] Basilio, MDDATE: June 19, 2017TIME: 1:08 PM [facility] XR ABDOMEN 1V SUPINEon 06-19 XR [...] changes in the spine.IMPRESSION:Decrease stool burden. No obstruction.Bush Regenerator : ARMANDO Transcribe Date/Time: Jun 19 2017 10:34ADictated by : ELIDA HART MDThis examination was interpreted and the report reviewed and electronically signed by: ELIDA HART MD on Jun 19 2017 10:35AM [id number] [facility] CASE MANAGEMon 06-18-2017 CASE MANAGEM HNO ID: [id number] thor: Bere (Rn) BEKAH Daveervice: Care ManagementAuthor Type: Registered NurseType: Care Mgt Progress NoteFiled: 06/18/2017 3:51 PMNote Text:CARE MANAGEMENT PROGRESS NOTESERVICE DATE: 06/18/2017SERVICE TIME: 3:48 PM LOS: 0 daysNeeds Prior to Discharge: To Be DeterminedPatient [facility] [place] [phone] [facility] that [facility] under obs to 5th floor [facility]at [facility] but planned to return home with agency's services. CM will follow.SIGNATURE: Bere Dave RN PATIENT NAME: Mary Grace Solano: June 18, 2017 : 3:47 PM PAGER/CONTACT #: [phone] [facility] CASE MGT INIT ASSESon 2016 CASE MGT INIT ASSES HNO ID: [id number] thor: Bere (Rn) BEKAH Daveervice: Care ManagementAuthor Type: Registered NurseType: Care Mgt Initial AssessmentFiled: 06/18/2017 10:50 AMNote Text:CARE MANAGEMENT: ASSESSMENT AND DISCHARGE PLANSERVICE DATE: 06/18/2017SERVICE TIME: 10:22 AMPRIMARY CARE PHYSICIAN:BILLY Ontiveros [place]: [phone] STATUS: ObservationPOTENTIAL DISCHARGE PLANSHomeHome CareTo Be DeterminedPatient/Representa tive Stated Goals: Return home granddaughter and k4lfagx grandchildrenNeeds Prior to Discharge: To Be DeterminedHealth [facility] Medicare and MedicaidLiving Arrangement: HomeLives With: Grand daughter and great grand childrenFinancial Resources: RetiredPrimary Contact:Extended Emergency Contact InformationPrimary Emergency Contact:Guera Slaterddress: Relation:DaughterSupport renato: YesOther Important Patient Contacts: NoneCAREGIVER ASSESSMENT:Caregiver is ready, willing and able to meet the patient's needs asrecommended by the inter-professional team? YesPatient's transition needs and plan for meeting these needs: [facility]with [facility] the [facility] have an acute stroke diagnosis, or has the patient had astroke during this admission? NoADVANCE DIRECTIVES:Does Patient Have Advance Directives? Yes: Durable Power of Silk Finisher forHealth Care: Mariajose Bonds(daughter) [phone] , copy is in chartDoes Patient Have Concerns About Advance Directives? NoPRIOR TO ADMISSION:Baseline Mental Status: Alert AND Oriented, Person, Place , Time andSituationFunctional Status: Needs AssistanceDoes Patient Currently Receive Any Community Services or Home Care? [facility] x3per week through [place] HHCEquipment Prior to Admission: Tub bench/chairWalkerWheelchairG rab [...] days? NoHas the Patient Been in a Jail Facility in the Past 30 days? NoFREEDOM OF CHOICE EXPLAINED:JONELLE COMMUNICATION:PRIMARY CARE PHYSICIAN:BILLY Ontiveros [place]one: [phone] met with patient in room. Patient admitted for right flank pain andcolon distension. Patient lives at home with her granddaughter and greatgrand children. She receives assistance from [facility] x3/week from [facility] in [place] to help assist her with housework and help her to bathe.[phone]. Patient spokewith her field case manager this am to make her aware she was in the hospital.Patient's daughter available for transport home. Anticipate no additionalskilled needs.SIGNATURE: Bere Dave RN PATIENT NAME: Mary Grace AndersonDATE: June 18, 2017 : 10:22 AM PAGER/CONTACT #: [phone] [facility] CONSULTon 06-18-2017 CONSULT HNO ID: [id number] thor: Yael Castellanos Dineshrvice: GastroenterologyAuthor Type: Nurse PractitionerType: ConsultsFiled: 06/18/2017 12:48 [...] similar presentation last month andwas seen in [place] ED where she lives and states CT was essentiallynormal except for "gastritis". CT abd.pel on admission showed No evidenceof [...] mouth three timesdaily. Disp: Rfl: 06/17/[address] [place] [address] medications:gabapentin 300 mg cap(s) (NEURONTIN) 300 mg [...] Temp Temp src Pulse Resp SpO2 Height Kejlqm62/27/17 0700 131/78 36.5 ?C (97.7 ?F) Oral [...] 85 18 98 % 170.2 cm (5' 7")133.4 kg (294 lb)Body mass index is 46.81 [...] visit:Most recent labs and imaging results.CBC:Recent Labs 505WBC 6.45RBC 4.52HB 13.7HCT 42.1PLT 235MCV 93.1MCH 30.3MPV 10.0Coags: No results for input(s): INR, APTT in the last 24 hours.Invalid input(s): PTCMP:Recent Labs 505NA 140K 4.3CHLOR 106CO2 22*BUN 20CREAT 0.72GLUC 75TPROT 6.8CA 8.7TBILI 0.3ALKPHOS 51ALT 13AST 17ANION 12Liver Function, Amylase, Lipase:Recent Labs 570843OKEFO 6.8ALB 3.7ALT 13AST 17ALKPHOS 51TBILI 0.3LIPASE 27Renal Panel:Recent Labs 185100YSSKD 0.72BUN 20GLUC 75CA 8.7CHLOR 106K 4.3CO2 22*NA 140SIGNATURE: Yael Manning, POWER DIGGER OPERATOR PATIENT NAME: Mary Grace Solano: June 18, 2017 : 11:41 AM PAGER: [phone] [facility] NURSING PROGon 06-18-2017 NURSING PROG HNO ID: [id number] thor: Edward (Rn) BEKAH Yanezervice: (none)Author Type: Registered NurseType: Nursing Progress NoteFiled: 06/18/2017 7:04 PMNote Text: Nursing Progress NotePatient Name: Mary Grace EnriquezRN: [id number] Location: [place] [address] [address]*___ Daily Note:1530-This RN assumed care of this patient from LORENZO Perez. Pt assessmentcomplete. Pt AANDOX3. Pt denies CP,SOB,NANDV,numbness,tingli ng, HAMMER, ordizziness. Pt started on Miralax and Gatorade bowel prep, tolerating, hashad 1 BM since starting prep. Pt tolerating a full liquid diet. Pt statesshe "is no longer having pain like she did before". Call light in reach.Pt provided a BSC educating on calling for help before getting oob, ptverbalizes understanding.1645-Pt daughter called, updated on POC with pt permission.1800-Pt tolerated full liquid diet. Pt has had second BM. Toleratingdrinking bowel prep.This note was completed by: Edward Yanez RN [facility] PROGRESSon 06-18-2017 PROGRESS HNO ID: [id number] thor: Emily Osuna: (none)Author Type: PhysicianType: Progress NotesFiled: 06/18/2017 10:34 AMNote Text:RAPID OBSERVATION UNITPROGRESS NOTEName: Mary Grace AnthonyMRN: [id number] DATE: 06/18/2017SERVICE TIME: 10:27 AMHospital Medicine/Primary Attending: Emily Basilio MDASSESSMENT AND PLANPatient [...] (Src) 97.7 (Oral) Resp 18 Ht 5' 7" (1.70m) Wt 298 lb 14.4 oz (135.6kg) [...] HomePlan of care discussed with: PatientSIGNATURE: Emily Dickinson Praful, MDDATE: June 18, 2017TIME: 10:27 AM [facility] XR ABD 2V SUPINE W UPR/DECUB [...] MONTIEL MD on Jun 18 2017 11:48AM [id number] [facility] ALLIED HEALTHon 06-17-2017 ALLIED HEALTH HNO ID: [id number] thor: Janette Guerreroervice: (none)Author Type: (none)Type: Allied HealthFiled: 06/17/2017 3:43 PMNote Text: Radiology Service Progress NotePATIENT NAME: Mary Grace McnaironyMRN: [id number] OF SERVICE: June 17, 2017TIME: 3:43 PMPATIENT IDENTITY VERIFICATION COMPLETED USING TWO (2) METHODS: Patientconfirmed name verbally and ID band matches..PATIENT GENDER DATA: Female. status: : NoBreastfeeding status: NO.PATIENT RELEVANT IMPLANT DATA REVIEWED: Not ApplicableRADIOLOGY DEPARTMENT: CT; Exam(s) Completed: Abdomen/PelvisPERIPHERAL IV DATA: Not applicableSIGNED BY: Janette Arreguin 2016 3:43 PM [facility] CBC and Differentialon 06-17 Abs Baso 0.03 k/uL Normal <0.11 [facility] Comment on above: Performed By: #### C BCDIF, CMP, LIPA ####[place] [address] Abs Mobile 0.49 k/uL Normal <0.87 [facility] Comment on above: Performed By: #### C BCDIF, CMP, LIPA ####[place] [address] Abs Neut 4.64 k/uL Normal 1.45-7.50 [facility] Comment on above: Performed By: #### C BCDIF, CMP, LIPA ####[place] [address] Basophils/100 WBC Auto (Bld) 0.5 % Normal [facility] Comment on above: Performed By: #### C BCDIF, CMP, LIPA ####[place] [address] DTYPE Auto Diff Normal [facility] Comment on above: Performed By: #### C BCDIF, CMP, LIPA ####[place] [address] Eosinophils 0.10 10*3/uL Normal <0.46 [facility] Comment on above: Performed By: #### C BCDIF, CMP, LIPA ####[place] [address] Eosinophils/100 leukocytes 1.6 % Normal [facility] Comment on above: Performed By: #### C BCDIF, CMP, LIPA ####[place] [address] Erythrocyte distribution width Auto Ratio (RBC) 14.4 % Normal 11.5-15.0 [facility] Comment on above: Performed By: #### C BCDIF, CMP, LIPA ####[place] [address] Erythrocytes (RBC) 4.52 10*6/uL Normal 3.90-5.20 [facility] Comment on above: Performed By: #### C BCDIF, CMP, LIPA ####[address] Hematocrit (HCT) 42.1 % Normal 36.0-46.0 [facility] Comment on above: Performed By: #### C BCDIF, CMP, LIPA ####[address] Hemoglobin mass conc (Bld) 13.7 g/dL Normal 11.5-15.5 [facility] Comment on above: Performed By: #### C BCDIF, CMP, LIPA ####[address] Lymphocytes 1.19 10*3/uL Normal 1.00-4.00 [facility] Comment on above: Performed By: #### C BCDIF, CMP, LIPA ####[address] Lymphocytes/100 leukocytes 18.4 % Normal [facility] Comment on above: Performed By: #### C BCDIF, CMP, LIPA ####[address] MCH 30.3 pG Normal 26.0-34.0 [facility] Comment on above: Performed By: #### C BCDIF, CMP, LIPA ####[place] [phone] MCHC mass conc (RBC) 32.5 g/dL Normal 30.5-36.0 [facility] Comment on above: Performed By: #### C BCDIF, CMP, LIPA ####[place] [phone] MCV 93.1 fL Normal 80.0-100.0 [facility] Comment on above: Performed By: #### C BCDIF, CMP, LIPA ####[place] [phone] Monocytes/100 leukocytes 7.6 % Normal [facility] Comment on above: Performed By: #### C BCDIF, CMP, LIPA ####[address] [phone] Neutrophils/100 WBC Auto (Bld) 71.9 % Normal [facility] Comment on above: Performed By: #### C BCDIF, CMP, LIPA ####[place] [phone] Platelet mean volume (PMV) 10.0 fL Normal 9.0-12.7 [facility] Comment on above: Performed By: #### C BCDIF, CMP, LIPA ####[place] [phone] Platelets 235 10*3/uL Normal 150-400 [facility] Comment on above: Performed By: #### C BCDIF, CMP, LIPA ####[place] [phone] WBC (Leukocytes) 6.45 10*3/uL Normal 3.70-11.00 [facility] Comment on above: Performed By: #### C BCDIF, CMP, LIPA ####[address] [phone] CT ABD/PEL WO IVCONon 2016 CT ABD/PEL WO IVCON * * *Final Report* * *DATE OF EXAM: Jun 17 2017 3:42PM [facility] 0531 - CT ABD/PEL WO IVCON / [...] result in clinically relevant disease to these organs.Bush Regenerator: ARMANDO Transcribe Date/Time: Jun 17 2017 4:00PDictated by : VERONIQUE SHEPHERD MDThis examination was interpreted and the report reviewed and electronically signed by: VERONIQUE SHEPHERD MD on Jun 17 2017 4:15PM [id number] Normal [facility] Comp Metabolic Panelon 06-17 Alanine aminotransferase (ALT) 13 U/L Normal 0-45 [facility] Comment on above: Performed By: #### C BCDIF, CMP, LIPA ####[place] [phone] Albumin 3.7 g/dL Normal 3.5-5.0 [facility] Comment on above: Performed By: #### C BCDIF, CMP, LIPA ####[place] [phone] Alkaline phosphatase (ALP) 51 U/L Normal 40-150 [facility] Comment on above: Performed By: #### C BCDIF, CMP, LIPA ####[address] Anion gap 12 mmol/L Normal 9-18 [facility] Comment on above: Performed By: #### C BCDIF, CMP, LIPA ####[place] [phone] Aspartate aminotransferase (AST) 17 U/L Normal 7-40 [facility] Comment on above: Performed By: #### C BCDIF, CMP, LIPA ####[address] Bilirubin (total) 0.3 mg/dL Normal 0.0-1.5 [facility] Comment on above: Performed By: #### C BCDIF, CMP, LIPA ####[address] Calcium 8.7 mg/dL Normal 8.5-10.5 [facility] Comment on above: Performed By: #### C BCDIF, CMP, LIPA ####[place] [phone] Chloride 106 mmol/L Normal 98-110 [facility] Comment on above: Performed By: #### C BCDIF, CMP, LIPA ####[place] [phone] CO2 22 mmol/L Low 23-32 [facility] Comment on above: Performed By: #### C BCDIF, CMP, LIPA ####[phone] Creatinine 0.72 mg/dL Normal 0.70-1.40 [facility] Comment on above: Performed By: #### C BCDIF, CMP, LIPA ####[place] [phone] eGFR (non-black) mL/min/{1.73_m2} Normal >60 [facility] Comment on above: Performed By: #### C BCDIF, CMP, LIPA ####[place] [phone] Glucose mass conc 75 mg/dL Normal 65-100 [facility] Comment on above: Performed By: #### C BCDIF, CMP, LIPA ####[place] [phone] Potassium molar conc 4.3 mmol/L Normal 3.5-5.0 [facility] Comment on above: Performed By: #### C BCDIF, CMP, LIPA ####[place] [address] Protein 6.8 g/dL Normal 6.0-8.4 [facility] Comment on above: Performed By: #### C BCDIF, CMP, LIPA ####[place] [address] Sodium 140 mmol/L Normal 132-148 [facility] Comment on above: Performed By: #### C BCDIF, CMP, LIPA ####[place] [phone] Urea nitrogen 20 mg/dL Normal 8-25 [facility] Comment on above: Performed By: #### C BCDIF, CMP, LIPA ####[place] [phone] ED NOTEon 06-17-2017 ED NOTE HNO ID: [id number] Author: Maggie LynRn) LORENZO Wallace Service: (none) Author Type: Registered Nurse Type: ED Notes Filed: 06/17/2017 2:43 PM Note Text: Bed: 18-ED Expected date: Expected time: Means of arrival: Comments: [facility]20 - 71F Normal [facility] ED PROV NOTEon 06-17-2017 ED PROV NOTE HNO ID: [id number] thor: FABIO Duongervice: Emergency MedicineAuthor Type: PhysicianType: ED Provider NotesFiled: 06/17/2017 5:58 PMNote Text:ED Provider NotePatient Name: Mary Grace EnriquezRN: [id number] DATE: 06/17/17HistoryPatient presents with:Flank Pain: right side [...] daughter for the holidays, PCP out of [place].History provided by: Patient and medical recordsPAST MEDICAL [...] Colonoscopy with mac- GASTRIC BYPASS HX 10/2010 boilvar-en-y- HYSTERECTOMY HX- STEREO LOC FOR CORE BRST [...] * Other: See Comments PATIENT ALMOST 'BLEED OUT"Review of SystemsConstitutional: Negative for chills, fever and [...] (Src) 98.6 (Oral) Resp 18 Ht 5' 7" (1.70m) Wt 294 lb (133.4kg) SpO2 98% [...] was Dr. Marquez.Plan:The patient was admitted to [facility]. Discussed w/ Dr. Cobb.Consent: A procedure or transfusion was performed - MADELYN Burr-Harry Diagnosis ICD-10-CM1. Acute cystitis without hematuria N30.002. Right flank pain R10.9PlanThe Patient was ADMITTED TO: Regular nursing floor.Condition at time of disposition: stableSIGNATURE: MADELYN Lugo-Chapito (MADELYN Roberts06/17/17 1744ATTENDING ATTESTATION NOTE:I have personally performed a face to face assessment of the patient andhave reviewed the PA/TRANSPORTATION PROJECT MANAGER note. My anderson findings include:History: C/o RLQ pain w/ rad to back, x 2 days, h/o stones, denies N/V/D,tried TylenolExam: AFVSS, NAD, abd s, BLQ and suprapubic ttp, BS hypoactive, noguard/reboundAssessment/Pl an: Labs, urine, CTErin Blanca Marquez MD06/17/17 7708 Normal [facility] HISTORY PHYSICALon 7 HISTORY PHYSICAL HNO ID: [id number] thor: Lashell (Bulmaro) KoltonService: General Internal MedicineAuthor Type: Nurse PractitionerType: HANDPFiled: 06/17/2017 11:52 PMNote Text:HISTORY AND PHYSICAL EXAMINATIONSERVICE DATE: 06/17/2017SERVICE TIME: [facility] ANKUR Ontiveros ChiJECTRENATOCHIRUPINDER COMPLAINT: Right flank pain radiating to right [...] for 3 UTI last month and that "ciproand levaquin don't work for me." States she was referred to ID for concernof antibiotic resistance, but at the time of her appt, she wasasymptomatic, so ID told her to return if she develops sx.States last month she was seen in the hospital in [place] for similarright low back/abdominal pain and that time she had nausea/vomiting. Tellsme her testing was normal then.Admits to following outside on the concrete last Friday "on mybuttocks." States she was not hurt, and got [...] * Other: See Comments PATIENT ALMOST 'BLEED OUT"COMPLETE REVIEW OF SYSTEMS:GENERAL: denies weight loss, malaise [...] Temp Temp src Pulse Resp SpO2 Height Qalnps57/26/17 1925 150/82 36.4 ?C (97.5 ?F) Oral 71 20 99 % - -06/17/17 1801 136/66 - - 74 20 96 % - -06/17/17 1444 116/67 37 ?C (98.6 ?F) Oral 85 18 98 % 170.2 cm (5' 7")133.4 kg (294 lb)Body mass index is 46.05 [...] 2017 : 8:36 PM PAGER/CONTACT #: Normal [facility] Lipaseon 06-17-2017 Lipase 27 U/L Normal [facility] Comment on above: Performed By: #### C BCDIF, CMP, LIPA ####[facility] [place] [phone] NURSING PROGon 06-17-2017 NURSING PROG HNO ID: [id number] thor: Sasha (Rn) Rickey, RNService: (none)Author Type: Registered NurseType: Nursing Progress NoteFiled: 06/17/2017 9:55 PMNote Text: Nursing Progress NotePatient Name: Mary Grace EnriquezRN: [id number] Location: [place] [address]/[place] [address]*___ Daily Note:1899- Report received from Matilda HERNÁNDEZ.2000- Pt states she started to have right flank pain this morning am. Active bowl sounds. Pt aANDox3. GI on consult.This note was completed by: Sasha Lang RN Normal [facility] Urinalysis with Microscopico n 06-17-2017 Bilirubin, Urine Negative Normal Negative [facility] Comment on above: Performed By: #### U AWMIC ####[place] [phone] Comments SEE COMMENT Normal [facility] Comment on above: Result Comment: Micr oscopic Examination Performed Performed By: #### U AWMIC ####[facility] [place] [phone] Erythrocytes (RBC) 0-5 Critically abnormal Negative [facility] Comment on above: Performed By: #### U AWMIC ####[place] [phone] Hemoglobin mass conc (Bld) Negative Normal Negative [facility] Comment on above: Performed By: #### U AWMIC ####[place] [phone] Leukest Moderate Critically abnormal Negative [facility] Comment on above: Performed By: #### U AWMIC ####[place] [address] pH of blood 6.0 [pH] Normal 5.0-8.0 [facility] Comment on above: Performed By: #### U AWMIC ####[place] [address] Protein, Urine Negative Normal [facility] Comment on above: Performed By: #### U AWMIC ####[place] [address] Specific [place], Ur 1.008 Normal 1.005-1.030 [facility] Comment on above: Performed By: #### U AWMIC ####[place] [address] Urine, bacteria in sediment Rare Critically abnormal Negative [facility] Comment on above: Performed By: #### U AWMIC ####[place] [address] Urine, clarity Clear Normal Clear [facility] Comment on above: Performed By: #### U AWMIC ####[place] [address] Urine, color Straw Critically abnormal Yellow [facility] Comment on above: Performed By: #### U AWMIC ####[place] [address] Urine, epithelial cells in sediment SEE COMMENT Critically abnormal Negative [facility] Comment on above: Result Comment: Rare Squamous Epithelial Cells Performed By: #### U AWMIC ####[place] [address] Urine, glucose presence Negative Normal Negative [facility] Comment on above: Performed By: #### U AWMIC ####[place] [address] Urine, ketones presence Negative Normal Negative [facility] Comment on above: Performed By: #### U AWMIC ####[place] [phone] Urine, mucus presence in sediment Present Normal [facility] Comment on above: Performed By: #### U AWMIC ####[place] [phone] Urine, nitrite presence Negative Normal Negative [facility] Comment on above: Performed By: #### U AWMIC ####[place] [phone] Urine, urobilinogen <2.0 Normal <2.0 [facility] Comment on above: Performed By: #### U AWMIC ####[place] [address] WBC (Leukocytes) Many Critically abnormal Negative [facility] Comment on above: Performed By: #### U AWMIC ####[address] Urine Cultureon 06-17-2017 Urine culture, bacteria Sp. Request/Comment: - Specimen received in preservative Culture Result - <10,000 CFU/ml Normal urogenital jhony Normal [facility] Comment on above: Performed By: #### C BCDIF, CMP, LIPA ####[place] [phone] Office Visit: : cat scratc h to legon 12-19-2016 Documentation of current medications (procedure) Done Invalid Interpretation Code [facility] Work Phone: Fall risk assessment Yes Invalid Interpretation Code [facility] Work Phone: Tobacco use [facility] Unknown if ever smoked Invalid Interpretation Code [facility] Work Phone: SURGICAL PATHOLOGY, CONVERTE Don 01-17-2006 [facility] SURGICAL PATHOLOGY, CONVERTE Don 03-22-2005 [facility] Vital Signs Date Time Vital Sign Value Performing Clinician Cheryl oreilly 12-19-2016 16:20-0400 Body Temperature 98 [degF] Bogdan JOSHI [facility] Work Phone: 12-19-2016 16:20-0400 BP Diastolic 78 mm[Hg] Bogdan JOSHI [facility] Work Phone: 12-19-2016 16:20-0400 BP Systolic 130 mm[Hg] Bogdan Krishan JOSHI [facility] Work Phone: 12-19-2016 16:20-0400 Pulse (Heart Rate) 98 /min Bogdan JOSHI [facility] Work Phone: 12-19-2016 16:20-0400 Respiratory Rate 12 /min Bogdan JOSHI [facility] Work Phone: 12-19-2016 16:20-0400 Weight 133.36 kg Bogdan JOSHI [facility] Work Phone: Encounters Encounter Date Encounter Type Care Provider Facility Start: 01-15-2025 End: 01-16-2025 Emergency department patient visit Bobby Pinto Facility:[facility] Start: 01-10-2025 End: 01-10-2025 ambulatory Loi Cameron Facility:[facility] Start: 12-23-2024 End: 12-23-2024 Emergency department patient visit Teofilo Sheppard Facility:[facility] Start: 12-02-2024 End: 12-02-2024 [facility] Start: 11-07-2024 End: 11-08-2024 Emergency department patient visit Bobby Pinto Facility:[facility] Start: 10-27-2024 End: 10-27-2024 ambulatory Bobby Pinto Facility:[facility] Start: 10-18-2024 ambulatory Shannonkaty Marina Facility:[facility] Start: 10-17-2024 ambulatory Marlon Shay Facili ty:[facility] Start: 10-17-2024 End: 10-20-2024 Evaluation and management of inpatient Marlon Shay Facility:[facility] Start: 10-12-2024 End: 10-12-2024 ambulatory Bobby KHOURY Facility:[facility] Start: 10-04-2024 End: 10-04-2024 ambulatory Freddy KHOURY Facility:[facility] Start: 09-06-2024 End: 09-06-2024 ambulatory Loi Cameron Facility:[facility] Start: 08-09-2024 ambulatory Alejandra Villavicencio Facility: [facility] Start: 07-12-2024 End: 07-12-2024 ambulatory Bobby KHOURY Facility:[facility] Start: 06-28-2024 End: 06-28-2024 ambulatory Loi Cameron Facility:[facility] Start: 06-27-2024 ambulatory Bobby KHOURY Facility:[facility] Start: 06-20-2024 ambulatory [facility] Facility:[facility] Start: 05-26-2024 End: 05-26-2024 ambulatory Freddy KHOURY Facility:[facility] Start: 05-12-2024 End: 05-12-2024 ambulatory Sasha Flowers Facility:[facility] Start: 05-08-2024 End: 05-09-2024 Emergency department patient visit Walter Nance Facility:[facility] Start: 05-06-2024 End: 05-06-2024 [facility] Start: 04-14-2024 End: 04-14-2024 ambulatory [facility] Facility:[facility] Start: 04-12-2024 End: 04-13-2024 ambulatory Bobby Pinto Facility:[facility] Start: 03-26-2024 End: 03-26-2024 ambulatory Justin Angulo Facility:[facility] Start: 03-23-2024 End: 03-23-2024 ambulatory Bobby Pinto Facility:[facility] Start: 03-09-2024 End: 03-09-2024 ambulatory Shavon Farmer NP Facility:[facility] Start: 03-03-2024 End: 03-03-2024 ambulatory [facility] Facility:[facility] Start: 02-25-2024 ambulatory Bobby KHOURY Facility:[facility] Start: 02-24-2024 ambulatory Bobby hendersony:[facility] Start: 02-15-2024 End: 02-15-2024 ambulatory Bobby KHOURY Facility:[facility] Start: 02-09-2024 End: 02-09-2024 ambulatory Loi Cameron Facility:[facility] Start: 02-02-2024 End: 02-02-2024 ambulatory Shavon Farmer MANAGER [facility]ION Facility:[facility] Start: 01-25-2024 End: 01-25-2024 ambulatory Bobby Pinto Facility:[facility] Start: 01-23-2024 End: 01-23-2024 ambulatory Shavon Farmer MANAGER MISSION Facility:[facility] Start: 01-21-2024 End: 01-21-2024 ambulatory Shavon Farmer MANAGER MISSION Facility:[facility] Start: 09-04-2018 End: 09-04-2018 Emergency department patient visit UNKNOWN PROVIDER Facility:[facility] Start: 06-17-2017 End: 06-19-2017 Ambulatory ALETHA [facility] Start: 01-17-2006 Documentation procedure Brittany Mccloud MD Work Phone: [facility] Start: 01-17-2006 Historic EMR Kg Mccloud MD Work Phone: [facility] Start: 03-23-2005 Documentation procedure Kyler Li MD Work Phone: [facility] Start: 03-23-2005 Historic EMR Ciara suarez MD Work Phone: [facility] Procedures Date Procedure Procedure Detail Performing [...] Influenza vaccination Influenza Vaccine (#1) [facility] Start: 06-23-2022 Advance Directive Discussion Advance Directive Discussion [facility] Start: 06-23-2022 Depression Assessment Depression Assessment [facility] Start: 09-04-2019 Hepatitis B surface antibody level LDL Cholesterol [facility] Start: 12-19-2016 End: 12-19-2016 Appointment Appointment [facility] Work Phone: Start: 09-02-2011 Pneumococcal Vaccine: 65+ (2 - PCV) Pneumococcal Vaccine: 65+ (2 - PCV) [facility] Start: 06-29-2011 Hemoglobin A1c/Hemoglobin.total in Blood HbA1C [facility] Start: 2011 Bone Density Screening Bone Density Screening [facility] Start: 1996 Shingrix Vaccine (1 of 2) Shingrix Vaccine (1 of 2) [facility] Start: 1965 Urine microalbumin profile DTaP,Tdap,Td Vaccine (1 - Tdap) [facility] Start: 1964 Hepatitis C Screening Hepatitis C Screening [facility] Start: 1956 3 comp foot exam completed Diabetic Foot Exam [facility] Start: 1956 Hepatitis B screening Urine Albumin:Creatinine Ratio [facility] Start: 1956 Hepatitis C antibody, confirmatory test Dilated Retinal Exam [facility] Start: 1946 Covid-19 Vaccine (#1) Covid-19 Vaccine (#1) [facility] Work Phone: Immunizations Immunization Date Immunization Notes Care Provider Anushka thomas 03-12-2012 influenza virus vacc ine, unspecified formulation Ciara Li MD Work Phone: [facility] Payers Date Payer Category Payer Self-pay 2023 Unknown [id number] 2018 Unknown [id number] 1945 Unknown [id number] 2.16. [id number] Unknown [id number] 2.16.8 40.1.070533.3.579.2.462 Unknown [id number] 2.16.8 40.1.338668.3.579.2.462 Unknown [id number] 2.16.8 40.1.584319.3.579.2.462 Unknown [id number] 2.16.8 40.1.376842.3.579.2.462 Unknown [id number] 2.16.8 40.1.686235.3.579.2.462 Unknown [id number] 2.16.8 40.1.035388.3.579.2.462 Unknown [id number] 2.16.8 40.1.347242.3.579.2.462 Unknown [id number] 2.16.8 40.1.297705.3.579.2.462 Unknown [id number] 2.16.8 40.1.680573.3.579.2.462 Unknown [id number] 2.16.8 40.1.990329.3.579.2.462 Unknown [id number] 2.16.8 40.1.468317.3.579.2.462 Unknown [id number] 2.16.8 40.1.069009.3.579.2.462 Unknown [id number] 2.16.8 40.1.228238.3.579.2.462 Unknown [id number] 2.16.8 40.1.975553.3.579.2.462 Unknown [id number] 2.16.8 40.1.695673.3.579.2.462 Unknown [id number] 2.16.8 40.1.362087.3.579.2.462 Unknown [id number] 2.16.8 40.1.448557.3.579.2.462 Unknown [id number] 2.16.8 40.1.907299.3.579.2.462 Unknown [id number] 2.16.8 40.1.394693.3.579.2.462 Unknown [id number] 2.16.8 40.1.621198.3.579.2.462 Unknown [id number] 2.16.8 40.1.217540.3.579.2.462 Unknown [id number] 2.16.8 40.1.005407.3.579.2.462 Unknown [id number] 2.16.8 40.1.137020.3.579.2.462 Unknown [id number] 2.16.8 40.1.970829.3.579.2.462 Unknown [id number] 2.16.8 40.1.618032.3.579.2.462 Unknown [id number] 2.16.8 40.1.796026.3.579.2.462 Unknown [id number] 2.16.8 40.1.848650.3.579.2.462 Unknown [id number] 2.16.8 40.1.329241.3.579.2.462 Unknown [id number] 2.16.8 40.1.162347.3.579.2.462 Unknown [id number] 2.16.8 40.1.171812.3.579.2.462 Unknown [id number] 2.16.8 40.1.987014.3.579.2.462 Unknown [id number] 2.16.8 40.1.070718.3.579.2.462 Unknown [id number] 2.16.8 40.1.923460.3.579.2.462 Unknown [id number] 2.16.8 40.1.959462.3.579.2.462 Unknown [id number] 2.16.8 40.1.791463.3.579.2.462 Unknown [id number] 2.16.8 40.1.180601.3.579.2.462 Unknown [id number] 2.16.8 40.1.075349.3.579.2.462 Unknown [id number] 2.16.8 40.1.884094.3.579.2.462 Unknown [id number] 2.16.8 40.1.907720.3.579.2.462 Unknown [id number] 2.16.8 40.1.085936.3.579.2.462 Unknown [id number] 2.16.8 40.1.256667.3.579.2.462 Unknown [id number] 2.16.8 40.1.710872.3.579.2.462 Social History Date Type Detail Facility [facility] Start: 01-19-2019 History of Social function [facility] Start: 01-19-2019 Tobacco use panel [facility] Start: 1945 Sex Assigned At Not on file [facility] Medical Equipment Procedure Code Equipment Code Equipment Origin al Text Equipment Identifier Dates Cement Bone Simp luisana P W/ Tobramycin 1gm - [id number] Start: 03-10-2012 Cement Bone Simp luisana P W/ Tobramycin 1gm - [id number] Start: 09-01-2012 Comp Fem 5 Rt Kn Cr Victorino Trthln - [id number] Start: 03-10-2012 Ins Tib 5 13mm X 3 Cndyl Stab - [id number] Start: 03-10-2012 Ins Tib 5 11mm X 3 Cs Trthln - [id number] Start: 09-01-2012 Comp Pat 10mm 35 mm Asym Trthln - [id number] Start: 03-10-2012 Comp Pat 10mm 35 mm Asym Trthln - [id number] Start: 09-01-2012 Screw Bn 3.5mm 4 0mm Dcp Lc Dcp - [id number] Start: 09-01-2012 History of Past illness [...] this encounter (statuses as of 03/13/2023) [facility] Summary Purpose Family History No Family History Records FoundNo Family History Records FoundNo Family History Records FoundNo Family History Records FoundNo Family History Records FoundNo Family History Records Found Advance Directives No Advanced Directives Records FoundDocuments on File Type Date Recorded 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 Advance Directive(s) 08/27/2012 8:21 PM Advance Directive(s) 08/27/2012 9:37 AM Procedure Findings Note HNO ID: [id number] Author: Ermelinda Dupont Service: Gastroenterology Surgery Author Type: Physician Type: Brief Op Note Filed: 11/06/2018 8:52 AM Note Text: BRIEF OPERATIVE / PROCEDURE NOTE LOG ID: [id number] SURGERY/PROCEDURE DATE: 11/06/2018 INCISION/PROCEDURE START TIME: 8:32 AM INCISION CLOSE/PROCEDURE END TIME: 8:41 AM SURGEON(S)/PROCEDURALIST(S) AND CARBON PAPER MACHINE OPERATOR(S): Surgeon(s) and Role: * Bull Dupont - Primary No Additional Staff SURGERY/PROCEDURE(S): EGD with biopsy gastric pouch ANESTHESIA: Monitored Anesthesia Care FINDINGS: 3-4 cm hiatal hernia ESTIMATED BLOOD LOSS: 0 ml SPECIMENS: gastric pouch COMPLICATIONS: None PRE-OP/PRE-PROCEDURE DIAGNOSIS: GERD POST-OP/POST-PROCEDURE DIAGNOSIS: Gastroesophageal reflux disease, esophagitis presence not specified [K21.9] 3-4 cm hiatal hernia SIGNATURE: Bull Dupont MD, [facility] PATIENT NAME: Mary Grace Anderson DATE: November 06, 2018 TIME: 8:51 AM PAGER/CONTACT #: Additional Source Comments INFORMATION SOURCE (unrecogn ized section and content) DATE CREATED AUTHOR 12/16/2017 [facility] DATE CREATED AUTHOR AUTHOR'S ORGANIZ ATION 11/19/2018 [facility] DATE CREATED AUTHOR AUTHOR'S ORGANIZ ATION 11/24/2018 [facility] DATE CREATED AUTHOR AUTHOR'S ORGANIZ ATION 09/07/2019 [facility] DATE CREATED AUTHOR AUTHOR'S ORGANIZ ATION 07/19/2021 [facility] DATE CREATED AUTHOR AUTHOR'S ORGANIZ ATION 01/16/2025 [facility] Source Comments (unrecognize d section and content) In the event this informatio n is protected by the Federal Confidentiality of Alcohol and Drug Abuse Patient Records regulations: The Federal rules restrict any use of the information to criminally investigate or prosecute any alcohol or drug abuse patient.[facility] the event this information is protected by the Federal Confidentiality of Alcohol and Drug Abuse Patient Records regulations: The Federal rules restrict any use of the information to criminally investigate or prosecute any alcohol or drug abuse patient.[facility] Care Teams (unrecognized sec tion and content) [place] Relationship Specialty Start Date End Date Pcp, No, ELECTRONICS ASSEMBLER PCP - General 01/25/10 08/20/10 Pcp, No, ELECTRONICS ASSEMBLER PCP - General 09/11/10 04/22/11 Pcp, No, ELECTRONICS ASSEMBLER PCP - General 05/03/11 06/24/11 Pcp, No, ELECTRONICS ASSEMBLER PCP - General Family Medicine 07/27/15 07/27/15 Genna Mccarthy DO [address] [place] [address] PCP - General 07/28/15 09/14/15 Jefferson Roman Chi [address] [place] [address] PCP - General Gerontology 09/15/15 Celeste Benedict MD [address] [place] [address] Primary Staff Physician Cardiology 09/21/14 6 FOR [...] BE BASED ON THE PRIMARY CLINICAL RECORDS. [facility]. provides no warranty or guarantee of the accuracy or completeness of information in this document.
[2025-01-21 08:37] LABS: Color, Urine Amber (Yellow); Glucose, Dipstick Normal (Normal); Ketone-Dipstick Negative (Negative); Leukocyte Esterase-Dipstick Negative /ul (Negative); Nitrite-Dipstick Positive (Negative); Occult Blood-Urine Negative /ul (Negative); Protein-Dipstick 15 mg/dl (Negative); Specific Gravity, Urine 1.020 (1.002-1.030)
[2025-01-21 08:39] LABS: Urine Bilirubin Dipstick 3 mg/dL (Negative)
[2025-01-21 09:00] LABS: Calcium Oxalate Crystals Ur 2+ /hpf (<or=2+); Squamous Epithelial Cells - UA 0-5 SEEN /hpf (5-10); Transitional Epithelial - Ur 0-5 SEEN /hpf (0-5)
== END ==
LOC: OLS.SWAL 02:00
PROVIDERS: PCP Family Medicine; Visit Provider Family Medicine
DX: N39.0 Urinary tract infection, site not specified (principal)
CPT/HCPCS: 81001; 87086; 87088

== ENCOUNTER → 2025-02-07 | Outpatient (CLI) | payer MEDICARE, MEDICAID, SELFPAY ==
--- NOTE | 2025-02-07 09:43 | VDLE_ITS ---
Reason For Study Reason For Study: Swelling LLE RIGHT LEFT CFV is compressible, spontaneous, phasic, competent GSV is normal. and demonstrates normal augmentation. CFV is compressible, spontaneous, phasic, competent, Procedure and demonstrates normal augmentation. This is a venous duplex using B-mode, color flow and FV is compressible, spontaneous, phasic, competent spectral Doppler. and demonstrates normal augmentation. Exam performed in department. POP V is compressible, phasic, and INCOMPETENT for The study was technically limited. greater than 1.0 second. The study was technically difficult. T/P Trunk is compressible. A preliminary report was called and/or faxed to . PTV is compressible. Julia. LT PerV is compressible. Heterogeneous, non vascular structure noted Lt lateral calf over area of injury measuring 5.85cm x 2.60cm consistent with a hematoma Very difficult to visualize Lt FV due to patient body habitus; Relied on color doppler in the mid/distal thigh Calf veins prox/mid unable to visualize. VL/Venous Duplex US, Unilateral Interpretation Summary Deep veins of the left lower extremity are patent and compressible segmentally. There is no evidence of left lower extremity deep vein thrombosis. The left popliteal vein is incompetent. The lef t common femoral vein and femoral vein are competent. The deep veins of the left proximal and mid-calf were not visual ized. The left great saphenous vein appears patent and compressible segmentally. A non-vascular, heterogeneous stru cture is noted in the left lateral calf, measuring 5.85 cm x 2.60 cm. This probably represents a hematoma. Clinical kerline elation is advised. The right common femoral vein is patent and compressible. Ordering Physician: Jay Dumont Referring Physician: Bobby Pinto Performed By: Carmelina Bean, MANDY, RVT
== END | disposition home or self-care (01) ==
PROVIDERS: PCP Family Medicine; Referring Provider Orthopaedic Surgery Sports Medicine; Visit Provider Orthopaedic Surgery Sports Medicine
DX: M79.89 Other specified soft tissue disorders (principal); I70.92 Chronic total occlusion of artery of the extremities; S80.12XA Contusion of left lower leg, initial encounter
CPT/HCPCS: 93971

== ENCOUNTER 2025-02-24 15:53 | Emergency (ER) | payer MEDICARE, MEDICAID, SELFPAY ==
[2025-02-24] VITALS (9 sets, daily range): BP systolic 129–145; BP diastolic 54–92; PULSE 62–77; RESP 12–23; TEMP 36.6–36.8; O2SAT 95–100; BMI 53.8
--- NOTE | 2025-02-24 16:45 | EKG12_ITS ---
Test Reason : SOB Blood Pressure : */* mmHG Vent. Rate : 72 BPM Atrial Rate : 72 BPM P-R Int : 202 ms QRS Dur : 104 ms QT Int : 402 ms P-R-T Axes : 56 22 43 degrees QTcB Int : 440 ms Normal sinus rhythm Normal ECG Confirmed by WILMAN GUNTER, ROSEY ([id number]), field map editor KARISHMA BRAGG ([id number]) on 02/28/2025 9:04:42 AM Referred By: DIMPLE/SEEMA Confirmed By: ROSEY STOVALL MD
--- NOTE | 2025-02-24 17:33 | RAD_ITS ---
PROCEDURE: CHEST PA AND LATERAL 02/24/2025 REASON FOR EXAM: SOB TECHNIQUE: Procedure Code: RADCXR Modality: DX Procedure: CHEST PA AND LATERAL COMPARISON: None FINDINGS: Diffuse scattered opacities may reflect underlying chronic lung disease, atypical pneumonia, and/or pulmonary edema. No pleural effusion or pneumothorax. Cardiac silhouette is borderline enlarged. Calcified aortic arch. No acute fractures. RAD/Chest PA and Lateral IMPRESSION: Diffuse scattered opacities may reflect underlying chronic lung disease, atypic al pneumonia, and/or pulmonary edema. Reading Location: [id number]
[2025-02-24 17:44] LABS: Hematocrit 38.6 % (37-47); Hemoglobin 12.0 g/dL (12.0-15.0); Immature Granulocytes Count 0.020 X10^3/uL (0.0-0.0); Mean Corp Hgb Conc 31.1 g/dL (32-36); Mean Corpuscular Volume 101.0 fL (81-99); Mean Platelet Vol. 9.4 fl (6.2-12.0); NRBC Flagged by Analyzer 0 % (0-5); Platelet Count 206 K/mm3 (150-450); RBC Distribution Width CV 13.2 % (11.6-14.6); RBC Distribution Width SD 49.7 fl (35.1-43.9); Red Blood Count 3.82 M/mm3 (4.2-5.4); White Blood Count 4.8 K/mm3 (4.4-11.0)
--- NOTE | 2025-02-24 17:50 | ED.VIS.DYS ---
HPI History of Present Illness Chief Complaint: Shortness of Breath Narrative Narrative: Patient is a 79-year-old female presenting to the emergency department for hypoxia. Patient has extensive past medical history as below including DVT, PE with IVC filter placement also on Eliquis. Patient states that she went to her primary care doctor appointment today and they told her her glucose was low. She reports it was 72. Patient also states that her pulse ox was low they are around 88%. She normally wears 3 L nasal cannula. She denies any chest pain or shortness of breath with this episode. Reports that right now she just feels fatigued. She denies any fever, chills, cough, congestion, abdominal pain, nausea, vomiting, diarrhea. Denies any lower extremity edema. Reports being compliant with her medications. [facility] Medical History Hematoma of left lower leg Lives in assisted living facility Hematoma and contusion Obesity hypoventilation syndrome DVT (deep venous thrombosis) History of echocardiogram Cardiology follow-up encounter On home oxygen therapy Essential tremor Normocytic anemia Hydronephrosis Wears hearing aid Wears dentures Uses wheelchair Walker as ambulation aid Bladder disease Low iron Back pain Injury of head and neck Non-smoker Shortness of breath on exertion History of pain when walking History of edema Hx of peripheral neuropathy History of stress test Hiatal hernia Restless legs High cholesterol Chronic UTI GERD (gastroesophageal reflux disease) Arthritis GI bleed Pulmonary embolism Anxiety and depression Cystitis Segmental and somatic dysfunction of cervical region Diabetic neuropathy associated with type 2 diabetes mellitus Chronic pain following surgery or procedure Segmental and somatic dysfunction of pelvic region Facet arthropathy, lumbar Segmental and somatic dysfunction of thoracic region Segmental and somatic dysfunction of lumbar region Polycystic ovaries Osteoarthritis Neuropathy Diabetes Cataracts, both eyes History of DVT (deep vein thrombosis) Home Medications ?Medication ?Instructions ?Recorded ?Last Taken ?Type cholecalciferol (vitamin D3) 25 2,000 unit PO DAILY vitamin 12/29/15 09/05/24 History mcg (1,000 unit) tablet (Vitamin D3) pravastatin 40 mg tablet 40 mg PO QHS cholesterol 08/05/18 09/05/24 History primidone 50 mg tablet 100 mg PO TID tremors 03/18/19 01/10/25 History ascorbic acid (vitamin C) 500 mg 500 mg PO DAILY supplement 09/28/20 09/05/24 History tablet cyanocobalamin (vitamin B-12) 1,000 mcg IM QMONTH supplement 10/23/20 05/26/24 History 1,000 mcg/mL injection solution nystatin 100,000 unit/gram topical 1 applic topical Q8H PRN Skin 07/30/21 Unknown History powder Irritation apixaban 5 mg tablet (Eliquis) 5 mg PO BID blood thinner 09/30/21 01/08/25 History d-mannose 500 mg capsule 1,000 mg PO BID ssee 12/05/21 09/05/24 History ferrous sulfate 325 mg (65 mg 325 mg PO QHS iron 03/19/23 09/05/24 History iron) tablet (Feosol) omeprazole 40 mg capsule,delayed 40 mg PO DAILY GERD 04/16/23 01/10/25 History release ondansetron HCl 8 mg tablet 8 mg PO Q8H PRN Nausea 04/16/23 Unknown History oxybutynin chloride 5 mg 5 mg PO DAILY OVERACTIVE BLADDER 04/16/23 09/05/24 History tablet,extended release 24 hr phenazopyridine 200 mg tablet 200 mg PO Q8H PRN Bladder Spasms 04/16/23 06/27/24 History (Pyridium) acetaminophen 325 mg tablet 650 mg PO Q4H PRN pain/ elevated 07/31/23 09/05/24 History temp vibegron 75 mg tablet (Gemtesa) 75 mg PO DAILY bladder #0 tabs 10/06/23 01/10/25 Rx fluticasone propionate 50 2 spray intranasal DAILY PRN 10/15/23 09/05/24 History mcg/actuation nasal allergy symptoms spray,suspension (24 Hour Allergy Relief) guaifenesin 100 mg/5 mL oral liquid 200 mg PO Q4H PRN cough 10/15/23 Unknown History mineral oil (Fleet Mineral Oil 118 ml DC DAILY PRN constipation 10/15/23 Unknown History enema) halobetasol propionate 0.05 % 1 applic topical BID PRN rash 10/31/23 06/27/24 History topical cream duloxetine 30 mg capsule,delayed 90 mg PO DAILY depression 11/20/23 01/10/25 History release magnesium hydroxide 400 mg/5 mL 30 ml PO QHS PRN constipation 03/26/24 Unknown History oral suspension (Milk of Magnesia) L.acidophil,salivari-Bifido 1 cap PO DAILY supplement 04/07/24 09/05/24 History bifidum-Strep thermoph 175 mg capsule cephalexin 500 mg capsule 500 mg PO QHS infection 05/04/24 09/05/24 History albuterol sulfate 2.5 mg/3 mL 2.5 mg inhalation Q2H PRN 05/08/24 Unknown History (0.083 %) solution for nebulization shortness of breath or wheezing albuterol sulfate 90 mcg/actuation 2 inh inhalation Q4H PRN shortness 05/08/24 Unknown History aerosol inhaler of breath or wheezing docusate sodium 100 mg capsule 100 mg PO QODAY stool softner 05/08/24 09/05/24 History (Col-Rite) gabapentin 300 mg capsule 300 mg PO TID nerve pain 10/17/24 01/10/25 History hydrocodone-acetaminophen 5-325mg 1 tab PO TID PRN PRN pain 10/17/24 Unknown History 5mg-325mg furosemide 40 mg tablet 40 mg PO DAILY diuretic 11/07/24 Unknown History furosemide 80 mg tablet 80 mg PO QDAY 11/07/24 Unknown History divalproex 500 mg tablet,delayed 500 mg PO BID 12/31/24 Unknown History release semaglutide 0.25 mg or 0.5 mg (2 0.25 mg subcut TU 12/31/24 12/28/24 History mg/3 mL) subcutaneous pen injector (Ozempic) gabapentin 600 mg tablet 600 mg PO TID 01/25/25 Unknown History Allergy/AdvReac Type Severity Reaction Status Date / Time ampicillin (From Unasyn) Allergy Severe Blisters Verified 02/24/25 15:55 on tongue /throat difficulty breathing sore tongue/ warfarin sodium (From Allergy Severe Low red Verified 02/24/25 15:55 Coumadin) blood cells Family History Father Colon cancer Hypertension Mother Hypertension Diabetes Grandmother Hypertension Surgical History Hx of surgical procedure History of bilateral cataract extraction History of tonsillectomy Hx of cystoscopy Hx of cystoscopy History of cystoscopy S/P hysterectomy H/O cardiac catheterization (05/22/11) History of cholecystectomy History of embolic filter insertion History of carpal tunnel surgery Total knee replacement status History of gastric bypass Social History housing: assisted living facility Smoking Status: Never smoker alcohol intake: current alcohol intake frequency: holidays/special occasions only substance use type: does not use what type of physical activity do you participate in: walking and aerobics frequency: 1-2 times per week ROS ROS ED ROS Narrative see HPI EXAM Physical Exam Narrative Exam Narrative: Vital signs: Reviewed General: Alert and orientedx3. No acute distress. Chronically ill appearing. HEENT: Head is normocephalic and atraumatic, sinuses nontender, pupils equal round and reactive. Nares are patent. Oropharynx and throat exams normal. Neck: Supple without lymphadenopathy nontender Cardiovascular: Regular rate and rhythm, no murmurs. No rubs or gallops. Normal S1 and S2 Respiratory: Clear to auscultation bilaterally. No wheezes, rales, rhonchi. On baseline 3 L NC saturating 95%. Abdominal: Soft and nontender. Normal bowel sounds. No guarding or rebound. Nonsurgical abdomen Extremities: No tenderness. No bruising. Normal range of motion. Normal sensation. Skin: No rash or redness. Neurological: Cranial nerves II through XII are grossly intact. Normal strength and sensation. Normal cerebellar function The rest of the physical exam is unremarkable Const Vital Signs: 02/24/25 15:55 02/24/25 16:22 02/24/25 16:49 Temperature 97.9 F Temperature Source Oral Pulse Rate 77 68 Respiratory Rate 23 H 19 H Respiratory Effort Normal Non-Labored Respiratory Depth Normal Respiratory Pattern Normal Blood Pressure 145/65 H Blood Pressure Mean 91 Pulse Ox 95 Oxygen Delivery Method Nasal Cannula Nasal Cannula Oxygen Flow Rate (L/min) 3 3 02/24/25 17:00 02/24/25 17:00 02/24/25 17:04 Temperature Temperature Source Pulse Rate 69 62 Respiratory Rate 19 H 14 Respiratory Effort Respiratory Depth Respiratory Pattern Blood Pressure 140/92 H 140/92 H Blood Pressure Mean 107 108 Pulse Ox 95 98 Oxygen Delivery Method Nasal Cannula Nasal Cannula Nasal Cannula Oxygen Flow Rate (L/min) 3 3 02/24/25 18:15 02/24/25 19:00 02/24/25 20:00 Temperature Temperature Source Pulse Rate 65 62 70 Respiratory Rate 12 18 18 Respiratory Effort Respiratory Depth Respiratory Pattern Blood Pressure 141/68 H 140/62 H 142/57 H Blood Pressure Mean 92 88 85 Pulse Ox 98 100 97 Oxygen Delivery Method Nasal Cannula Nasal Cannula Nasal Cannula Oxygen Flow Rate (L/min) 3 3 02/24/25 21:00 02/24/25 21:00 Temperature 98.2 F Temperature Source Pulse Rate 67 68 Respiratory Rate 18 18 Respiratory Effort Respiratory Depth Respiratory Pattern Blood Pressure 129/54 H Blood Pressure Mean 79 Pulse Ox 96 96 Oxygen Delivery Method Nasal Cannula Oxygen Flow Rate (L/min) 3 MDM MDM MDM Narrative Medical decision making narrative: Patient is a 79-year-old female presenting to the emergency department for an episode of hypoxia at her primary care doctor visit. Patient was seen and examined. Vitals are stable. Patient resting in bed comfortably no acute distress. She is on her baseline 3 L nasal cannula saturating 95%. She is not tachycardic. Differential includes but is not limited to: Pneumonia, viral illness, ACS, less likely PE given on eliquis and has IVC filter, no tachycardia, no hypoxia on her baseline nasal cannula EKG shows normal sinus rhythm with no ischemic changes. No ST elevation or depression. No dysrhythmia. No T wave inversions. CBC with no leukocytosis and normal hemoglobin. BMP with elevated BUN of 26, chronic on chart review. Normal glucose of 89. Troponin and reflex stable at 14. BNP of 625. Chest x-ray reviewed by myself. No opacities, pneumothorax, wide mediastinum. No pleural effusion. Viral swab negative. Patient reevaluated. Still on her baseline 3 L nasal cannula saturating in the high 90s. She is asymptomatic. May have been a false reading at her primary care doctor's office or a poor waveform. States that she was not short of breath at that time. She ambulated here with pulse ox, continued to do well. She was updated on the negative workup. Feels comfortable with discharge home. Patient discharged from the Emergency Department. I do not feel that the patient's evaluation reveals any acute reason for admission at this time. I instructed them to either follow-up with their primary care physician or promptly return to the Emergency Department for reevaluation should symptoms worsen or new symptoms develop. I explained what symptoms would indicate the need to return to the emergency department. Shared decision making was used. The patient voiced understanding of the treatment plan and is agreeable with it. Clinical impression Episode of hypoxia History & Record Review Discussion w/independent historian: Patient Lab Data Attestation: I reviewed the patient's lab results. Labs: Laboratory Results - last 24 hr 02/24/25 02/24/25 17:24 20:21 WBC 4.8 RBC 3.82 L Hgb 12.0 Hct 38.6 MCV 101.0 H MCH 31.4 MCHC 31.1 L RDW Std Deviation 49.7 H RDW Coeff of Chani 13.2 Plt Count 206 MPV 9.4 Immature Gran % (Auto) 0.400 Neut % (Auto) 68.8 Lymph % (Auto) 18.2 L [place] % (Auto) 9.3 Eos % (Auto) 2.5 Baso % (Auto) 0.8 Absolute Neuts (auto) 3.3 Absolute Lymphs (auto) 0.88 Nucleated RBC % 0 Sodium 138 Potassium 4.8 Chloride 103 Carbon Dioxide 25.7 Anion Gap 10 BUN 26 H Creatinine 0.88 Estim Creat Clear Calc 77.33 Est GFR (MDRD) Non-Af 68 BUN/Creatinine Ratio 29.8 H Glucose 89 Calcium 8.8 Troponin T High Sens 14 D Troponin T Hi Sens 2 Hr 14 NT pro BNP II 625 Radiography Chest X-Ray - ED: Read by ED Physician, Normal, No Acute Disease and No Infiltrates Discharge Plan Triage Chief Complaint: Shortness of Breath ED Provider: Susu Santillan Dx/Rx/DC Orders Clinical Impression: Hypoxic episode Instructions: Hypoxemia: General Info, ED Dyspnea Prescriptions: No Action acetaminophen 325 mg tablet 650 mg PO Q4H PRN (Reason: pain/ elevated temp ) duloxetine 30 mg capsule,delayed release(DR/EC) 90 mg PO DAILY guaifenesin 100 mg/5 mL liquid 200 mg PO Q4H PRN (Reason: cough) mineral oil [Fleet Mineral Oil] Enema 118 ml DC DAILY PRN (Reason: constipation) Rx Instructions: discard any unused portion magnesium hydroxide [Milk of Magnesia] 400 mg/5 mL suspension 30 ml PO QHS PRN (Reason: constipation) gabapentin 600 mg tablet 600 mg PO TID cholecalciferol (vitamin D3) [Vitamin D3] 1,000 UNIT tablet 2,000 unit PO DAILY pravastatin 40 MG tablet 40 mg PO QHS primidone 50 MG tablet 100 mg PO TID ascorbic acid (vitamin C) 500 MG tablet 500 mg PO DAILY cyanocobalamin (vitamin B-12) 1,000 mcg/mL Solution 1,000 mcg IM QMONTH Rx Instructions: states is due the 4th of each month nystatin 100,000 unit/gram Powder 1 applic TOPICAL Q8H PRN (Reason: Skin Irritation) Eliquis 5 mg Tablet 5 mg PO BID halobetasol propionate 0.05 % cream 1 applic TOPICAL BID PRN (Reason: rash) d-mannose 500 mg Capsule 1,000 mg PO BID omeprazole 40 mg capsule,delayed release(DR/EC) 40 mg PO DAILY oxybutynin chloride 5 mg tablet extended release 24hr 5 mg PO DAILY ondansetron HCl 8 MG tablet 8 mg PO Q8H PRN (Reason: Nausea) phenazopyridine [Pyridium] 200 MG tablet 200 mg PO Q8H PRN (Reason: Bladder Spasms) ferrous sulfate [Feosol] 325 mg (65 mg iron) tablet 325 mg PO QHS Gemtesa 75 mg Tablet 75 mg PO DAILY Qty: 0 0RF fluticasone propionate [24 Hour Allergy Relief] 50 mcg/actuation spray,suspension 2 spray intranasal DAILY PRN (Reason: allergy symptoms) Rx Instructions: administer into each nostril L.acidoph,saliva-B.bif-S.therm 175 mg Capsule 1 cap PO DAILY albuterol sulfate 90 mcg/actuation HFA aerosol inhaler 2 inh inhalation Q4H PRN (Reason: shortness of breath or wheezing) albuterol sulfate 2.5 mg /3 mL (0.083 %) solution for nebulization 2.5 mg inhalation Q2H PRN (Reason: shortness of breath or wheezing) docusate sodium [Col-Rite] 100 mg capsule 100 mg PO QODAY furosemide 80 mg tablet 80 mg PO QDAY furosemide 40 mg Tablet 40 mg PO DAILY divalproex 500 mg tablet,delayed release (DR/EC) 500 mg PO BID Ozempic 0.25 mg or 0.5 mg (2 mg/3 mL) pen injector 0.25 mg subcut TU Rx Instructions: for 4 weeks cephalexin 500 mg capsule 500 mg PO QHS hydrocodone-acetaminophen 5-325 mg tablet 1 tab PO TID PRN PRN (Reason: pain) gabapentin 300 mg capsule 300 mg PO TID Primary Care Provider: Bobby Pinto Referrals: Bobby Pinto MD [Primary Care Provider] - 2 Days Activity Restrictions/Additional Instructions: Your evaluation in the Emergency Department did not reveal any acute reason for admission. However, I want to emphasize that you may be early in the course of a disease process or illness even if it is not present. For this reason you should follow-up within 24 hours for reevaluation with either your primary care physician or if necessary back here in the Emergency Department. You should return to the Emergency Department immediately if your symptoms worsen or new symptoms develop. Print Language: Amharic Disposition Disposition: Home, Self Care Discharge Date/Time: 02/24/25 21:33
[2025-02-24 18:20] LABS: Anion Gap 10 (5-15); BUN 26 mg/dL (4-19); BUN/Creat Ratio 29.8 RATIO (10-20); Calcium,Total 8.8 mg/dL (7.6-11.0); Carbon Dioxide 25.7 mmol/L (21.0-32.0); Chloride 103 mmol/L (98-108); Estimated Creatinine Clearance 77.33 ml/min (50-250); Glucose 89 mg/dL (70-99); Potassium 4.8 mmol/L (3.3-5.1)
--- NOTE | 2025-02-24 18:29 | ED.RN ---
WALT MACARIO CALLED WITH PATIENT UPDATE.
[2025-02-24 18:45] LABS: Pro- Brain NATRIURETIC PEPTIDE 625 pg/mL (<=1800); Troponin T High Sensitivity 14 ng/L (<=14)
--- NOTE | 2025-02-24 19:15 | ED.RN ---
This RN went into the patient's room and the patient stated I don't know how I'm getting home but my family is trying to figure it out. This RN explained to the patient that we are still waiting for diagnostic testing to come back and we can discuss transportation later if her family is unable to come pick the patient up. During this conversation, the patient's family member was on the phone with the patient and asked this RN, so can you tell me why she cannot get an ambulance to bring her back. This RN explained to the patient and the patient's family member that the patient does not qualify for a ride by an ambulance d/t the patient having family that is able to pick her up, she has her oxygen with her, and her walker with her. The patient and her family member expressed understanding of the reasons why the patient does not qualify her for the ambulance ride back.
[2025-02-24 20:56] LABS: Troponin T High Sens 2 HR 14 ng/L (<=14)
--- NOTE | 2025-02-24 21:30 | ED.RN ---
This RN went into the patient's room to discharge the patient and this RN asked how the patient was getting home, referring to our previous discussion. The patient stated an ambulance. This RN then noticed that the patient's walker and oxygen tank were no longer in the room. This RN asked the patient where the walker and oxygen tank went. The patient replied, well my family came and took it so now I can get a ride home in an ambulance. To note, the patient's family member was on the phone at the time of this conversation. This RN educated the patient that the patient's family is able to come and merchandise pickup/receiving associate her assistive devices that the patient's family is able to pick the patient's assistive devices up, then they are able to merchandise pickup/receiving associate the patient and it would be inappropriate to call an ambulance for the patient when she has family support. This RN explained to the patient that she would need a ride home from family and that the patient would wait in the waiting room on [facility] supplemental oxygen until her family comes to pick her up. The patient understood that she would be on oxygen until the patient's family came to pick her up. The patient's family member on the phone expressed understanding that the patient needed a ride home and needed her walker and home oxygen tank in order to bring her home. This RN assisted the patient in getting dressed and in a wheelchair to wait for her family to come pick her up.
--- NOTE | 2025-02-24 21:45 | ED.RN ---
The patient left at this time with the patient's family member.
== END 2025-02-24 21:33 | disposition home or self-care (01) ==
PROVIDERS: Emergency Provider Student in an Organized Health Care Education/Training Program; PCP Family Medicine; Visit Provider Student in an Organized Health Care Education/Training Program
DX: R09.02 Hypoxemia (principal); E11.42 Type 2 diabetes mellitus with diabetic polyneuropathy; R06.02 Shortness of breath; Z86.711 Personal history of pulmonary embolism; E78.00 Pure hypercholesterolemia, unspecified; Z86.718 Personal history of other venous thrombosis and embolism; Z90.710 Acquired absence of both cervix and uterus; Z98.84 Bariatric surgery status
CPT/HCPCS: 36415; 71046; 80048; 83880; 84484; 85025; 87631; 93005; 99285; A4216

== ENCOUNTER 2025-03-07 11:11 | Day surgery (SDC) | payer MEDICARE, MEDICAID, SELFPAY ==
--- NOTE | 2025-03-01 16:15 | PAT.ANESEVAL ---
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 When Was Last Pacemaker Check QUESTION #4 FULL TEXT: You/Your Family Experience fever (hyperthermia) with Anesthesia Last Oral Intake Last Oral intake: Last Oral Intake NPO since Meds taken in AM with sips of water? 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 Female Yes 03/01/25 11:26 HX of Motion Sickness No 03/01/25 11:26 HX of N/V After Surgery No 03/01/25 11:26 Non-Smoker Yes 03/01/25 11:26 Duration of Surgery greater No 03/01/25 11:26 than 60 minutes Number of Risk Factors 2 03/01/25 11:26 PONV Score Moderate Risk 03/01/25 11:26 Height & Weight Height & Weight: Anesthesia: Height & Weight Height 5 ft 5 in 01/25/25 14:02 Respiratory Assessment Respiratory Assessment - high energy forming equipment operator: Respiratory Tract Infection Hx - high energy forming equipment operator Hx Respiratory Tract Infection No 03/01/25 11:26 STOP Sleep Apnea STOP Sleep Apnea - high energy forming equipment operator: STOP Sleep Apnea - high energy forming equipment operator Hx Hypertension No 03/01/25 11:26 Hx Sleep Apnea No 03/01/25 11:26 CPAP No 03/01/25 11:26 BIPAP No 03/01/25 11:26 Do you snore loudly (louder No 03/01/25 11:26 than talking or can be heard Do you often feel tired/ No 03/01/25 11:26 fatigued/ sleepy during daytime? Has anyone observed you stop No 03/01/25 11:26 breathing during sleep? STOP Results Negative 03/01/25 11:26 QUESTION #5 FULL TEXT : Do you snore loudly (louder than talking or can be heard through closed doors)? 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 Specify any problems Hx of Preganancy in last 3 N/A 03/01/25 11:26 Months Nurse Filling Out Transfusion NBUCHER 03/01/25 11:26 & Questions: Date: 03/01/25 03/01/25 11:26 Time: 11:27 03/01/25 11:26 Patient unable to answer at this time (ie. 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: /Reproductive Hx- high energy forming equipment operator Hx Now No 03/01/25 11:26 Gestational Age (in weeks): EDC: Hx Hx Para Hx Section SAB No 03/01/25 11:26 PFSH Medical History Hematoma of left lower leg Lives in assisted living facility Hematoma and contusion Obesity hypoventilation syndrome DVT (deep venous thrombosis) History of echocardiogram Cardiology follow-up encounter On home oxygen therapy Essential tremor Normocytic anemia Hydronephrosis Wears hearing aid Wears dentures Uses wheelchair Walker as ambulation aid Bladder disease Low iron Back pain Injury of head and neck Non-smoker Shortness of breath on exertion History of pain when walking History of edema Hx of peripheral neuropathy History of stress test Hiatal hernia Restless legs High cholesterol Chronic UTI GERD (gastroesophageal reflux disease) Arthritis GI bleed Pulmonary embolism Anxiety and depression Cystitis Segmental and somatic dysfunction of cervical region Diabetic neuropathy associated with type 2 diabetes mellitus Chronic pain following surgery or procedure Segmental and somatic dysfunction of pelvic region Facet arthropathy, lumbar Segmental and somatic dysfunction of thoracic region Segmental and somatic dysfunction of lumbar region Polycystic ovaries Osteoarthritis Neuropathy Diabetes Cataracts, both eyes History of DVT (deep vein thrombosis) Home Medications ?Medication ?Instructions ?Recorded ?Last Taken ?Type cholecalciferol (vitamin D3) 25 2,000 unit PO DAILY vitamin 12/29/15 09/05/24 History mcg (1,000 unit) tablet (Vitamin D3) pravastatin 40 mg tablet 40 mg PO QHS cholesterol 08/05/18 09/05/24 History primidone 50 mg tablet 100 mg PO TID tremors 03/18/19 01/10/25 History ascorbic acid (vitamin C) 500 mg 500 mg PO DAILY supplement 09/28/20 09/05/24 History tablet cyanocobalamin (vitamin B-12) 1,000 mcg IM QMONTH supplement 10/23/20 05/26/24 History 1,000 mcg/mL injection solution nystatin 100,000 unit/gram topical 1 applic topical Q8H PRN Skin 07/30/21 Unknown History powder Irritation apixaban 5 mg tablet (Eliquis) 5 mg PO BID blood thinner 09/30/21 01/08/25 History d-mannose 500 mg capsule 1,000 mg PO BID ssee 12/05/21 09/05/24 History ferrous sulfate 325 mg (65 mg 325 mg PO QHS iron 03/19/23 09/05/24 History iron) tablet (Feosol) omeprazole 40 mg capsule,delayed 40 mg PO DAILY GERD 04/16/23 01/10/25 History release ondansetron HCl 8 mg tablet 8 mg PO Q8H PRN Nausea 04/16/23 Unknown History oxybutynin chloride 5 mg 5 mg PO DAILY OVERACTIVE BLADDER 04/16/23 09/05/24 History tablet,extended release 24 hr phenazopyridine 200 mg tablet 200 mg PO Q8H PRN Bladder Spasms 04/16/23 06/27/24 History (Pyridium) acetaminophen 325 mg tablet 650 mg PO Q4H PRN pain/ elevated 07/31/23 09/05/24 History temp vibegron 75 mg tablet (Gemtesa) 75 mg PO DAILY bladder #0 tabs 10/06/23 01/10/25 Rx fluticasone propionate 50 2 spray intranasal DAILY PRN 10/15/23 09/05/24 History mcg/actuation nasal allergy symptoms spray,suspension (24 Hour Allergy Relief) guaifenesin 100 mg/5 mL oral liquid 200 mg PO Q4H PRN cough 10/15/23 Unknown History mineral oil (Fleet Mineral Oil 118 ml [place] DAILY PRN constipation 10/15/23 Unknown History enema) halobetasol propionate 0.05 % 1 applic topical BID PRN rash 10/31/23 06/27/24 History topical cream duloxetine 30 mg capsule,delayed 90 mg PO DAILY depression 11/20/23 01/10/25 History release magnesium hydroxide 400 mg/5 mL 30 ml PO QHS PRN constipation 03/26/24 Unknown History oral suspension (Milk of Magnesia) L.acidophil,salivari-Bifido 1 cap PO DAILY supplement 04/07/24 09/05/24 History bifidum-Strep thermoph 175 mg capsule cephalexin 500 mg capsule 500 mg PO QHS infection 05/04/24 09/05/24 History albuterol sulfate 2.5 mg/3 mL 2.5 mg inhalation Q2H PRN 05/08/24 Unknown History (0.083 %) solution for nebulization shortness of breath or wheezing albuterol sulfate 90 mcg/actuation 2 inh inhalation Q4H PRN shortness 05/08/24 Unknown History aerosol inhaler of breath or wheezing docusate sodium 100 mg capsule 100 mg PO QODAY stool softner 05/08/24 09/05/24 History (Col-Rite) hydrocodone-acetaminophen 5-325mg 1 tab PO TID PRN PRN pain 10/17/24 Unknown History 5mg-325mg furosemide 40 mg tablet 40 mg PO QHS diuretic 11/07/24 Unknown History furosemide 80 mg tablet 80 mg PO DAILY 11/07/24 Unknown History semaglutide 0.25 mg or 0.5 mg (2 0.25 mg subcut TU 12/31/24 12/28/24 History mg/3 mL) subcutaneous pen injector (Ozempic) gabapentin 600 mg tablet 600 mg PO TID 01/25/25 Unknown History aluminum-magnesium hydroxide 225 30 ml PO Q4H PRN PRN GERD 03/01/25 Unknown History mg-200 mg/5 mL oral suspension artificial tears solution eye drops 1 drp ophthalmic (eye) TID 03/01/25 Unknown History diclofenac sodium 1 % topical gel 2 g topical Q4H PRN PRN pain 03/01/25 Unknown History (Arthritis Pain (diclofenac)) nitroglycerin 0.4 mg sublingual 0.4 mg sublingual Q5M PRN chest 03/01/25 Unknown History tablet pain simethicone 80 mg chewable tablet 80 mg PO DAILY 03/01/25 Unknown History Allergy/AdvReac Type Severity Reaction Status Date / Time ampicillin (From Unasyn) Allergy Severe Blisters Verified 03/01/25 11:24 on tongue /throat difficulty breathing sore tongue/ warfarin sodium (From Allergy Severe Low red Verified 03/01/25 11:24 Coumadin) blood cells Family History Father Colon cancer Hypertension Mother Hypertension Diabetes Grandmother Hypertension Surgical History Hx of surgical procedure History of bilateral cataract extraction History of tonsillectomy Hx of cystoscopy Hx of cystoscopy History of cystoscopy S/P hysterectomy H/O cardiac catheterization (05/22/11) History of cholecystectomy History of embolic filter insertion History of carpal tunnel surgery Total knee replacement status History of gastric bypass Social History housing: assisted living facility Smoking Status: Never smoker alcohol intake: current alcohol intake frequency: holidays/special occasions only substance use type: does not use what type of physical activity do you participate in: walking and aerobics frequency: 1-2 times per week Audit: Pertinent Findings Pertinent Findings EKG Perinent findings: 02/24/2025. Normal sinus rhythm. Stress test pertinent findings: 10/18/2024. No EKG or echo evidence of ischemia with dobutamine infusion. Echo (EF%) pertinent findings: 10/18/2024. EF of 65%. RVSP is 47 mmHg. No aortic stenosis. Severe biatrial dilation. Consult pertinent findings: 05/12/2024. Kristie ARROYO 1. CHF-stable. Continue with SGLT2 and Lasix. Recommendation Anesthesia Recommendation Anesthesia recommendation: OPTIMIZED for anesthesia
[2025-03-07] VITALS (7 sets, daily range): BP systolic 112–138; BP diastolic 57–96; PULSE 69–72; RESP 16–18; TEMP 36.2–36.6; O2SAT 95–100; BMI 52.0
--- NOTE | 2025-03-07 11:23 | PCM.PRE.AN2 ---
ASA Classification* ASA Classification ASA Classification: 3 Assessment & Plan Anesthesia* Anesthesia Assessment Anesthesia Assessment: Discussed sedation and/or anesthesia options, risks, benefits, and alternatives with patient/parents/legal guardian/POA. Questions invited. The patient/parents/legal guardian/POA seems to understand and agrees to proceed with anesthesia plan. Reviewed the physical assessment, medical history, allergy history and patient home medications list prior to surgery/procedure/anesthetic and documented any changes. Performed airway and anesthesia risk assessments. Anesthesia Type Anesthesia Type: MAC Anesthesia Focused Assessment* Airway Assessment Mouth opens: >3 cm Mallampati Score: II Labs Anesthesia Preop lab: CBC WBC 4.8 K/mm3 (4.4-11.0) 02/24/25 17:24 02/24/25 RBC 3.82 M/mm3 (4.2-5.4) L 02/24/25 17:24 02/24/25 Hgb 12.0 g/dL (12.0-15.0) 02/24/25 17:24 02/24/25 Hct 38.6 % (37-47) 02/24/25 17:24 02/24/25 Plt Count 206 K/mm3 (150-450) 02/24/25 17:24 02/24/25 CHEMISTRY Potassium 4.8 mmol/L (3.3-5.1) 02/24/25 17:24 02/24/25 Sodium 138 mmol/L (133-145) 02/24/25 17:24 02/24/25 Magnesium 2.0 mg/dL (1.5-2.2) 10/17/24 19:56 10/17/24 Phosphorus 4.7 mg/dL (2.7-4.5) H 10/19/24 05:37 10/19/24 BUN 26 mg/dL (4-19) H 02/24/25 17:24 02/24/25 Creatinine 0.88 mg/dL (0.70-1.20) 02/24/25 17:24 02/24/25 Glucose 89 mg/dL (70-99) 02/24/25 17:24 02/24/25 POC Glucose 170 mg/dL (74-106) H 10/19/24 15:03 10/19/24 TSH 2.730 uIU/mL (0.300-4.200) 10/17/24 22:11 10/17/24 COAG PT 14.5 SECONDS (11.7-14.9) 06/26/23 07:07 06/26/23 Pre-Assessment Diagnosis/Proposed Procedure Planned Operative Procedure(s): INJECTION KNEE Anesthesia History 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 When Was Last Pacemaker Check QUESTION #4 FULL TEXT: You/Your Family Experience fever (hyperthermia) with Anesthesia Last Oral Intake Last Oral intake: Last Oral Intake NPO since Meds taken in AM with sips of water? 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 Female Yes 03/01/25 11:26 HX of Motion Sickness No 03/01/25 11:26 HX of N/V After Surgery No 03/01/25 11:26 Non-Smoker Yes 03/01/25 11:26 Duration of Surgery greater No 03/01/25 11:26 than 60 minutes Number of Risk Factors 2 03/01/25 11:26 PONV Score Moderate Risk 03/01/25 11:26 Height & Weight Height & Weight: Anesthesia: Height & Weight Height 5 ft 5 in 02/24/25 15:55 Respiratory Assessment Respiratory Assessment - underground drill operator: Respiratory Tract Infection Hx - underground drill operator Hx Respiratory Tract Infection No 03/01/25 11:26 STOP Sleep Apnea STOP Sleep Apnea - underground drill operator: STOP Sleep Apnea - underground drill operator Hx Hypertension No 03/01/25 11:26 Hx Sleep Apnea No 03/01/25 11:26 CPAP No 03/01/25 11:26 BIPAP No 03/01/25 11:26 Do you snore loudly (louder No 03/01/25 11:26 than talking or can be heard Do you often feel tired/ No 03/01/25 11:26 fatigued/ sleepy during daytime? Has anyone observed you stop No 03/01/25 11:26 breathing during sleep? STOP Results Negative 03/01/25 11:26 QUESTION #5 FULL TEXT : Do you snore loudly (louder than talking or can be heard through closed doors)? 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 Specify any problems Hx of Preganancy in last 3 N/A 03/01/25 11:26 Months Nurse Filling Out Transfusion [facility] 03/01/25 11:26 & Questions: Date: 03/01/25 03/01/25 11:26 Time: 11:27 03/01/25 11:26 Patient unable to answer at this time (ie. 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: /Reproductive Hx- underground drill operator Hx Now No 03/01/25 11:26 Gestational Age (in weeks): EDC: Hx Hx Para Hx Section SAB No 03/01/25 11:26 Active Medications Active Medications: Current Medications Generic Name Dose Route Start Last Admin Trade Name Freq PRN Reason Stop Dose Admin Lactated Ringer's 1,000 mls @ 15 mls/hr 03/07/25 11:30 IV .Q48H ELVA PFSH Medical History Hematoma of left lower leg Lives in assisted living facility Hematoma and contusion Obesity hypoventilation syndrome DVT (deep venous thrombosis) History of echocardiogram Cardiology follow-up encounter On home oxygen therapy Essential tremor Normocytic anemia Hydronephrosis Wears hearing aid Wears dentures Uses wheelchair Walker as ambulation aid Bladder disease Low iron Back pain Injury of head and neck Non-smoker Shortness of breath on exertion History of pain when walking History of edema Hx of peripheral neuropathy History of stress test Hiatal hernia Restless legs High cholesterol Chronic UTI GERD (gastroesophageal reflux disease) Arthritis GI bleed Pulmonary embolism Anxiety and depression Cystitis Segmental and somatic dysfunction of cervical region Diabetic neuropathy associated with type 2 diabetes mellitus Chronic pain following surgery or procedure Segmental and somatic dysfunction of pelvic region Facet arthropathy, lumbar Segmental and somatic dysfunction of thoracic region Segmental and somatic dysfunction of lumbar region Polycystic ovaries Osteoarthritis Neuropathy Diabetes Cataracts, both eyes History of DVT (deep vein thrombosis) Home Medications ?Medication ?Instructions ?Recorded ?Last Taken ?Type cholecalciferol (vitamin D3) 25 2,000 unit PO DAILY vitamin 12/29/15 09/05/24 History mcg (1,000 unit) tablet (Vitamin D3) pravastatin 40 mg tablet 40 mg PO QHS cholesterol 08/05/18 09/05/24 History primidone 50 mg tablet 100 mg PO TID tremors 03/18/19 01/10/25 History ascorbic acid (vitamin C) 500 mg 500 mg PO DAILY supplement 09/28/20 09/05/24 History tablet cyanocobalamin (vitamin B-12) 1,000 mcg IM QMONTH supplement 10/23/20 05/26/24 History 1,000 mcg/mL injection solution nystatin 100,000 unit/gram topical 1 applic topical Q8H PRN Skin 07/30/21 Unknown History powder Irritation apixaban 5 mg tablet (Eliquis) 5 mg PO BID blood thinner 09/30/21 01/08/25 History d-mannose 500 mg capsule 1,000 mg PO BID norman rosas 12/05/21 09/05/24 History ferrous sulfate 325 mg (65 mg 325 mg PO QHS iron 03/19/23 09/05/24 History iron) tablet (Feosol) omeprazole 40 mg capsule,delayed 40 mg PO DAILY GERD 04/16/23 01/10/25 History release ondansetron HCl 8 mg tablet 8 mg PO Q8H PRN Nausea 04/16/23 Unknown History oxybutynin chloride 5 mg 5 mg PO DAILY OVERACTIVE BLADDER 04/16/23 09/05/24 History tablet,extended release 24 hr phenazopyridine 200 mg tablet 200 mg PO Q8H PRN Bladder Spasms 04/16/23 06/27/24 History (Pyridium) acetaminophen 325 mg tablet 650 mg PO Q4H PRN pain/ elevated 07/31/23 09/05/24 History temp vibegron 75 mg tablet (Gemtesa) 75 mg PO DAILY bladder #0 tabs 10/06/23 01/10/25 Rx fluticasone propionate 50 2 spray intranasal DAILY PRN 10/15/23 09/05/24 History mcg/actuation nasal allergy symptoms spray,suspension (24 Hour Allergy Relief) guaifenesin 100 mg/5 mL oral liquid 200 mg PO Q4H PRN cough 10/15/23 Unknown History mineral oil (Fleet Mineral Oil 118 ml [place] DAILY PRN constipation 10/15/23 Unknown History enema) halobetasol propionate 0.05 % 1 applic topical BID PRN rash 10/31/23 06/27/24 History topical cream duloxetine 30 mg capsule,delayed 90 mg PO DAILY depression 11/20/23 01/10/25 History release magnesium hydroxide 400 mg/5 mL 30 ml PO QHS PRN constipation 03/26/24 Unknown History oral suspension (Milk of Magnesia) L.acidophil,salivari-Bifido 1 cap PO DAILY supplement 04/07/24 09/05/24 History bifidum-Strep thermoph 175 mg capsule cephalexin 500 mg capsule 500 mg PO QHS infection 05/04/24 09/05/24 History albuterol sulfate 2.5 mg/3 mL 2.5 mg inhalation Q2H PRN 05/08/24 Unknown History (0.083 %) solution for nebulization shortness of breath or wheezing albuterol sulfate 90 mcg/actuation 2 inh inhalation Q4H PRN shortness 05/08/24 Unknown History aerosol inhaler of breath or wheezing docusate sodium 100 mg capsule 100 mg PO QODAY stool softner 05/08/24 09/05/24 History (Col-Rite) hydrocodone-acetaminophen 5-325mg 1 tab PO TID PRN PRN pain 10/17/24 Unknown History 5mg-325mg furosemide 40 mg tablet 40 mg PO QHS diuretic 11/07/24 Unknown History furosemide 80 mg tablet 80 mg PO DAILY 11/07/24 Unknown History semaglutide 0.25 mg or 0.5 mg (2 0.25 mg subcut TU 12/31/24 12/28/24 History mg/3 mL) subcutaneous pen injector (Ozempic) gabapentin 600 mg tablet 600 mg PO TID 01/25/25 Unknown History aluminum-magnesium hydroxide 225 30 ml PO Q4H PRN PRN GERD 03/01/25 Unknown History mg-200 mg/5 mL oral suspension artificial tears solution eye drops 1 drp ophthalmic (eye) TID 03/01/25 Unknown History diclofenac sodium 1 % topical gel 2 g topical Q4H PRN PRN pain 03/01/25 Unknown History (Arthritis Pain (diclofenac)) nitroglycerin 0.4 mg sublingual 0.4 mg sublingual Q5M PRN chest 03/01/25 Unknown History tablet pain simethicone 80 mg chewable tablet 80 mg PO DAILY 03/01/25 Unknown History Allergy/AdvReac Type Severity Reaction Status Date / Time ampicillin (From Unasyn) Allergy Severe Blisters Verified 03/01/25 11:24 on tongue /throat difficulty breathing sore tongue/ warfarin sodium (From Allergy Severe Low red Verified 03/01/25 11:24 Coumadin) blood cells Family History Father Colon cancer Hypertension Mother Hypertension Diabetes Grandmother Hypertension Surgical History Hx of surgical procedure History of bilateral cataract extraction History of tonsillectomy Hx of cystoscopy Hx of cystoscopy History of cystoscopy S/P hysterectomy H/O cardiac catheterization (05/22/11) History of cholecystectomy History of embolic filter insertion History of carpal tunnel surgery Total knee replacement status History of gastric bypass Social History housing: assisted living facility Smoking Status: Never smoker alcohol intake: current alcohol intake frequency: holidays/special occasions only substance use type: does not use what type of physical activity do you participate in: walking and aerobics frequency: 1-2 times per week Review of Systems (Anesthesia) ROS Narrative System reviewed and no additional complaints, except as documented.
[2025-03-07] MEDS: Lactated Ringers 1,000 ML 15 ML IV (11:53)
--- NOTE | 2025-03-07 11:59 | RAD_ITS ---
PROCEDURE: FLUORO GUIDED NEEDLE PLACEMENT 03/07/2025 REASON FOR EXAM: KNEE INJECTION, RIGHT TECHNIQUE: Procedure Code: RADFGN Modality: DX Procedure: FLUORO GUIDED NEEDLE PLACEMENT Intraoperative fluoroscopic services provided for right knee injection. 4.3 seconds of fluoroscopy. 0.79 mGy. 3 images were submitted. COMPARISON: Prior study dated September 06, 2024. FINDINGS: Intraoperative fluoroscopic services provided for right knee injection. RAD/Fluoro Guided Needle Placement IMPRESSION: Intraoperative fluoroscopic services provided for right knee injection. Reading Location: [place] [id number]
[2025-03-07] MEDS: Lidocaine 1% (5 ml sdv) 5 ML Vial (12:10)
--- NOTE | 2025-03-07 12:14 | OP.PCM_ITS ---
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 BLOOD LOSS: Minimal. COMPLICATIONS: None. DESCRIPTION OF PROCEDURE: History and physical of today was reviewed. Risks and benefits of the procedure were explained. The patient understood and agreed to proceed. Informed consent was obtained. IV inserted per routine protocol. The patient was taken to the operating room and placed in the supine position. The right knee was prepped and draped in a sterile fashion using iodine x3. Under fluoroscopy guidance on AP view, the right knee was visualized. The skin and subcutaneous tissue was anesthetized with approximately 5 mL of 1% lidocaine using a 25-gauge regular needle at the vicinity of the superomedial, superolateral, and inferomedial genicular nerves. Under direct visualization of fluoroscopy on AP view as well as lateral view, starting on the right superomedial, ending on the right inferomedial, passing through the right superolateral genicular nerves, the needle was passed through the skin. The tip of the needle was maneuvered and directed towards the diaphyseal junction of each corresponding nerve. Once tip of the needle was in the vicinity of the diaphysis and in contact with the bone, after confirmation on AP as well as lateral view and repeated negative aspiration for blood, a total of 12 mL of preservative-free 0.25% Marcaine with 80 mg of Depo-Medrol was injected in divided doses between those three levels. The needles were then removed intact. The patient experienced no sign or symptoms of intravascular injection. The patient experienced no paresthesia. The procedure was completed without any apparent difficulty or any complications. The patient appeared to tolerate it well. ASSESSMENT AND PLAN: This is a 79-year-old female with osteoarthritis of the right knee, chronic postoperative knee pain, status post right knee superior medial, superior lateral, inferior medial genicular nerve steroid injection under fluoroscopic guidance, patient will continue her current medications, patient will follow-up in approximately 2 weeks for reevaluation. Surgical Findings: 0 Complications Complications: No Admit VTE Documentation VTE Present on Admission: No VTE Mechan Device Prophylaxis: None VTE Pharm Prophylaxis ordered?: No
--- NOTE | 2025-03-07 12:17 | PCM.POST.ANE ---
Anesthesia: Postop Eval I Current Vital Signs Temperature: 97.8 F Pulse Rate: 72 Blood Pressure: 116/96 Respiratory Rate: 16 Pulse Ox: 100 Oxygen Delivery Method: Simple Mask Oxygen Flow Rate (L/min): 6 Assessment Airway patent: Yes Spontaneous unlabored respirations: Yes Mental status: Awake and Calm nausea: No Vomiting: No Anesthesia Complication: No Fluid Hydration Crystalloid volume administer (ml): 100 Total IV fluid infused: 100 Progress Note Anesthesia document: Postop Eval 1 completed: Yes
--- NOTE | 2025-03-07 12:32 | POSTOPAN2_ITS ---
Anesthesia Postop Eval I Sum Postop Eval Completion status Anesthesia document: Postop Eval 1 completed: Yes Anesthesia Postop Eval I Summary Anesthesia Postop Eval I Summary: Anesthesia Postop Eval I: Assessment Summary Airway patent Yes 03/07/25 12:18 [email or web address] Spontaneous unlabored Yes 03/07/25 12:18 CARD [email or web address] respirations Mental status Awake,Calm 03/07/25 12:18 CARD [email or web address] nausea No 03/07/25 12:18 CARD PLAYER.[email or web address] Vomiting No 03/07/25 12:18 CARD PLAYER.[email or web address] Anesthesia Postop Eval I: Fluid Summary Crystalloid volume administer 100 03/07/25 12:18 [email or web address] [email or web address] (ml) Colloids volume administered ( ml) Blood Product volume administered (ml) Total IV fluid infused 100 03/07/25 12:18 CARD [email or web address] Anesthesia Postop Eval I: Summary Notes Anesthesia Complication No 03/07/25 12:18 [email or web address] [email or web address] Anesthesia Complication Comment: Post-operative progress note Anesthesia: Postop Eval II Evaluation Mental status: Awake Pain Level: 0 nausea: No Vomiting: No
--- NOTE | 2025-03-07 12:32 | PCM.POSTANE2 ---
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.[email or web address] Spontaneous unlabored Yes 03/07/25 12:18 DIRECTOR OF SCOUT WORK.[email or web address] respirations Mental status Awake,Calm 03/07/25 12:18 DIRECTOR OF SCOUT WORK.[email or web address] nausea No 03/07/25 12:18 DIRECTOR OF SCOUT WORK.[email or web address] Vomiting No 03/07/25 12:18 DIRECTOR OF SCOUT WORK.[email or web address] Anesthesia Postop Eval I: Fluid Summary Crystalloid volume administer 100 03/07/25 12:18 DIRECTOR OF SCOUT WORK.[email or web address] (ml) Colloids volume administered ( ml) Blood Product volume administered (ml) Total IV fluid infused 100 03/07/25 12:18 DIRECTOR OF SCOUT WORK.[email or web address] Anesthesia Postop Eval I: Summary Notes Anesthesia Complication No 03/07/25 12:18 DIRECTOR OF SCOUT WORK.[email or web address] Anesthesia Complication Comment: Post-operative progress note Anesthesia: Postop Eval II Evaluation Mental status: Awake Pain Level: 0 nausea: No Vomiting: No
== END 2025-03-07 12:59 | disposition home or self-care (01) ==
LOC: SDC 11:11 → AC 11:13
PROVIDERS: PCP Family Medicine; Referring Provider Anesthesiology Pain Medicine; Visit Provider Anesthesiology Pain Medicine
PROC: 3E0U3GC Introduction of Other Therapeutic Substance into Joints, Percutaneous Approach (ICD-10-PCS; CPT 20610; principal; 2025-03-07 12:15)
DX: M17.11 Unilateral primary osteoarthritis, right knee (principal); G89.28 Other chronic postprocedural pain
CPT/HCPCS: 64454; 76000; 77002

== ENCOUNTER 2025-03-09 09:20 | Outpatient (CLI) | payer MEDICARE, MEDICAID, SELFPAY ==
--- NOTE | 2025-03-09 09:26 | US_ITS ---
PROCEDURE: CYST PUNCTURE 03/09/2025 REASON FOR EXAM: HEMATOMA TECHNIQUE: Procedure Code: USCP Modality: US Procedure: CYST PUNCTURE The patient has a complex solid and cystic collection in the lateral left calf. The overlying skin was prepped and draped in the usual sterile fashion. Following local anesthetic application, a 5 Vietnamese catheter was placed into the collection. 2 cc of bloody fluid was aspirated. This most likely represents a resolving hematoma. No further aspiration was possible. COMPARISON: None FINDINGS: Complex fluid collection along the lateral aspect of the calf. Limited aspiration due to complexity. US/Cyst Puncture IMPRESSION: 2 cc of bloody fluid was aspirated. This most likely represents a resolving he matoma. Reading Location: [facility]
== END 2025-03-09 23:59 | disposition home or self-care (01) ==
LOC: US 09:21
PROVIDERS: PCP Family Medicine; Referring Provider Orthopaedic Surgery Sports Medicine; Visit Provider Orthopaedic Surgery Sports Medicine
DX: S80.12XA Contusion of left lower leg, initial encounter (principal)
CPT/HCPCS: 10160; 76942

== ENCOUNTER → 2025-04-12 | Outpatient (REF) | payer MEDICARE, MEDICAID, SELFPAY ==
[2025-04-12 07:45] LABS: Hematocrit 39.0 % (37-47); Hemoglobin 12.1 g/dL (12.0-15.0); Mean Corp Hgb Conc 31.0 g/dL (32-36); Mean Corpuscular Volume 102.4 fL (81-99); Mean Platelet Vol. 9.4 fl (6.2-12.0); Platelet Count 245 K/mm3 (150-450); RBC Distribution Width CV 13.2 % (11.6-14.6); RBC Distribution Width SD 50.0 fl (35.1-43.9); Red Blood Count 3.81 M/mm3 (4.2-5.4); White Blood Count 4.8 K/mm3 (4.4-11.0)
[2025-04-12 08:17] LABS: Vitamin B12 1105 pg/mL (180-914); Vitamin D,25 Hydroxy 39.8 ng/mL (30-100)
== END ==
LOC: OLS.SWAL 04:00
PROVIDERS: PCP Family Medicine; Referring Provider Family Medicine; Visit Provider Family Medicine
DX: I51.9 Heart disease, unspecified (principal); E55.9 Vitamin D deficiency, unspecified
CPT/HCPCS: 36415; 82306; 82607; 85027

== ENCOUNTER → 2025-05-16 | Outpatient (REF) | payer MEDICARE, MEDICAID, SELFPAY ==
[2025-05-17 07:07] LABS: Mucous, Urine 0 SEEN /hpf (<or=2+); Red Blood Cells-Urine 0 SEEN /hpf (0-5)
--- OUTSIDE RECORDS SUMMARY | 2025-05-17 07:09 | XMS RPT_ITS | CCD ---
Author Organization [facility] CliniSyor Care Team Providers Care Water And Gas Helper Name Role Phone Bogdan Ewing Unavailable ALETHA COBB Unavailable Unavailable ALETHA COBB Unavailable Unavailable COLLETTE, KHALED Unavailable Unavailable PROVIDER, UNKNOWN Admitting Unavailable KHARI MCADAMS Attending Unavailable Pcp PIN ATTACHER, No Primary Care Provider Unavailabl e Pcp PIN ATTACHER, No Primary Care Provider Unavailabl e Pcp PIN ATTACHER, No Primary Care Provider Unavailabl e Jan Taylor MD, Celeste Unavailable Pcp PIN ATTACHER, No Primary Care Provider Unavailabl e Genna Mccarthy DO Primary Care Provider Jefferson Roman Chi Primary Care Provider Bobby Pinto Referring Unavailable [facility] [place] [facility] Unavailable Sasha Tate Attending Unavail able Jay Dumont Attending Unavailable Bobby Pinto Referring Unavailable [facility] Unavailable Rosa Quintero Attending Unavailable [facility] Primary Care Unavailable Devika Jaimes Referring Unavailable Marlon Shay Consulting Unavailable Marlon Shay Admitting Unavailable Rosa Quintero Consulting Unavailable Marlon Shay Attending Unavailable Bobby Pinto Primary Care Unavailable [facility] Attending Unavailable [facility] [place] [facility] Primary Care Unavailable Bobby Adorno Attending Unavaila ble [facility] Primary [facility] Unavailable Freddy Velarde Attending UnavailJay Root Attending Unavailable Jay Dumont Referring Unavailable Ranney, Christopher Primary Care Unavailable Ranney, Christopher Primary Care Unavailable RanBobby Barrientos Attending Unavaila ble Ranney, Christopher Primary Care Unavailable Loi Cameron Referring Unavailable Loi Cameron Attending Unavailable Ranney, Christopher Referring Unavailable Ranney, Christopher Primary Care Unavailable Justin Angulo Attending Unavailable Rosa Quintero Attending Unavailable Ranney, Christopher Primary Care Unavailable Devika Jaimes Referring Unavailable Marlon Shay Admitting Unavailable Marlon Shay Consulting Unavailable Ranney, Christopher Primary Care Unavailable Ranney IRAIDA, Mikier Attending Unavaila ble Ranney OLS, Christopher Referring Unavaila ble Ranney, Christopher Primary Care Unavailable Freddy Velarde Attending Unavailabl Jarad Benoit Attending Unavailable Ranney, Christopher Primary Care Unavailable Ranney, Christopher Referring Unavailable Ranney, Christopher Primary Care Unavailable Miki Pintoer Attending Unavailable Ranney, Christopher Primary Care Unavailable Loi Cameron Attending Unavailable Loi Cameron Referring Unavailable Ranney, Christopher Primary Care Unavailable RanBobby Barrientos Attending Unavaila ble Ranney, Christopher Primary Care Unavailable Loi Cameron Attending Unavailable Loi Cameron Referring Unavailable Ranney, Christopher Primary Care Unavailable Alejandra Villavicencio Attending Unavailable Ranney, Christopher Primary Care Unavailable Loi Cameron Attending Unavailable Loi Cameron Referring Unavailable Jay Dumont Attending Unavailable Jay Dumont Referring Unavailable Ranney, Christopher Primary Care Unavailable Ranney, Christopher Referring Unavailable Ranney, Christopher Primary Care Unavailable Ranney, Mikier Attending Unavailable Ranney, Christopher Primary Care Unavailable Tico Posada Attending Unavailable Ranney, Christopher Primary Care Unavailable Teofilo Sheppard Attending Unavailable Teofilo Sheppard Referring Unavailable Ranney, Christopher Primary Care Unavailable Walter Nance Attending Unavailable Ranney, Christopher Primary Care Unavailable Loi Cameron Attending Unavailable Loi Cameron Referring Unavailable Ranney, Christopher Referring Unavailable Ranney, Christopher Primary Care Unavailable Justin Angulo Consulting Unavailable Justin Angulo Attending Unavailable Susu Santillan Attending Unavailable Ranney, Christopher Primary Care Unavailable Bobby Pinto Primary Care Unavailable Shannon Marina Attending Unavailable Jay Dumont Attending Unavailable Bobby Pinto Referring Unavailable Bobby Pinto Primary Care Unavailable Bobby Pinto Primary Care Unavailable Bobby Adorno Attending Unavaila ble Allergies Allergy Classification Reported Allergen(s) Allergy Type Date of Onset Reaction(s) Facility (2 sources) warfarin drug allergy 7 [facility] Work Phone: (3 sources) amoxicillin; Translations: [AMOXICILLIN] Drug Allergy 7 Anaphylaxis [facility] Other [place] Repository (4 sources) warfarin; Translations: [WARFARIN SODIUM] Drug Allergy 2 Other: See Comments [facility] Repository (2 sources) Ampicillin; Translations: [AMPICILLIN] Drug Allergy 9 [facility] Repository Medications Completed/Discontinued Medications Medication Drug Class(es) Dates Sig (Normalized) Sig (Original) acetaminophen 500 mg oral tablet (2 sources) Start: 12-19-2016 ACETAMINOPHEN EXTRA STRENGTH 500 MG TABS ACETAMINOPHEN 02319783606 Bogdan JOSHI amitriptyline hydrochloride 25 mg oral tablet (2 sources) Tricyclic Antidepressant Start: 12-19-2016 AMITRIPTYLINE HCL 25 MG TABS AMITRIPTYLINE HCL 63034254218 Bogdan JOSHI AMOXICILLIN-POT CLAVULANATE (2 sources) Penicillin-class Antibacterial Start: 12-19-2016 AUGMENTIN 500-125 MG TABS 1 tablet twice daily AMOXICILLIN-POT CLAVULANATE 54084763308 Bogdan JOSHI denosumab 60 mg/ml injectable solution (2 sources) RANK Ligand Inhibitor Start: 12-19-2016 PROLIA 60 MG/ML SOLN DENOSUMAB 79876384160 Bogdan JOSHI DULoxetine 60 mg delayed release oral capsule (2 sources) Serotonin and Norepinephrine Reuptake Inhibitor Start: 12-19-2016 CYMBALTA 60 MG CPEP DULOXETINE HCL 16093101507 Bogdan JOSHI ergocalciferol 69096 unt oral tablet (2 sources) Provitamin D2 Compound Start: 12-19-2016 VITAMIN D (ERGOCALCIFEROL) 23455 UNIT CAPS ERGOCALCIFEROL 90971111065 Bogdan JOSHI FLUTICASONE PROPIONATE (2 sources) Corticosteroid Start: 12-19-2016 FLONASE ALLERGY RELIEF 50 MCG/ACT SUSP FLUTICASONE PROPIONATE 82159461474 Bogdan JOSHI furosemide 40 mg oral tablet (2 sources) Loop Diuretic Start: 12-19-2016 LASIX 40 MG TABS FUROSEMIDE 41172513031 Bogdan JOSHI gabapentin 300 mg oral tablet (2 sources) Anti-epileptic Agent Start: 12-19-2016 NEURONTIN 300 MG CAPS GABAPENTIN 64442049597 Bogdan JOSHI vitamin b 12 3 mg sublingual tablet (2 sources) Vitamin B12 B-12 [address] CYANOCOBALAMIN 35306631352 Bogdan JOSHI Problems Active Problems Problem Classification Problem Date Documented Da te Episodic/Chronic Congestive heart failure; nonhypertensive (1 source) Heart failure, unspecified; Translations: [Heart failure, unspecified] Onset: 11-02-2024 Chronic Diabetes mellitus without complication (2 sources) Diabetes [...] by cat, initial encounter] Onset: 12-19-2016 12-19-2016 Nutritional deficiencies (1 source) Vitamin D deficiency, unspecified; Translations: [Vitamin D deficiency, unspecified] Onset: 04-22-2025 Chronic Osteoarthritis (3 sources) Osteoarthritis of knee; Translations: [Osteoarthritis of knee, unspecified] Onset: 05-03-2011 05-03-2011 Chronic Other and ill-defined heart disease (1 source) Heart disease, unspecified; Translations: [Heart disease, unspecified] Onset: 04-22-2025 Chronic Other connective tissue disease (2 sources) History of total knee arthroplasty; Translations: [Presence of unspecified artificial knee joint] Onset: 04-15-2012 04-15-2012 Chronic Other connective tissue disease (1 source) Other specified soft tissue disorders; Translations: [Other specified soft tissue disorders] Onset: 02-11-2025 Episodic Other lower respiratory disease (1 source) Shortness of breath; Translations: [Shortness of breath] Onset: 03-01-2025 Episodic Other nutritional; endocrine; and metabolic disorders [...] obesity with alveolar hypoventilation] Onset: 10-23-2024 Chronic Phlebitis; thrombophlebitis and thromboembolism (1 source) 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; Translations: [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] Onset: 10-23-2024 Chronic Residual codes; unclassified (1 source) Obstructive sleep apnea (adult) (pediatric); Translations: [Obstructive sleep apnea (adult) (pediatric)] Onset: 10-23-2024 Chronic Superficial injury; contusion (1 source) Contusion of left lower leg, initial encounter; Translations: [Contusion of left lower leg, initial encounter] Onset: 04-05-2025 Episodic Unclassified (1 source) Low back pain, unspecified; [...] Episodic Deficiency and other anemia (1 source) Nutritional anemia, unspecified; Translations: [Nutritional anemia, unspecified] Onset: 5 Episodic Fluid and electrolyte disorders (2 sources) Fluid overload, unspecified; Translations: [Hypokalemia] Onset: 5 Episodic Nonspecific chest pain (2 sources) Chest pain, unspecified; Translations: [Chest pain, unspecified] Onset: 5 Episodic Other and unspecified benign neoplasm (1 [...] diseases of intestine] Onset: 7 Episodic Other injuries and conditions due to external causes (1 source) Encounter for examination and observation following other accident; Translations: [Encounter for examination and observation following other accident] Onset: 5 Episodic Other lower respiratory disease (1 source) Hypoxemia; Translations: [Hypoxemia] Onset: 5 Episodic Other screening for suspected conditions (not mental disorders or infectious disease) (3 sources) Mammography abnormal; Translations: [Other abnormal and inconclusive findings on diagnostic imaging of breast] Onset: 3 04-02-2013 Episodic Phlebitis; thrombophlebitis and thromboembolism (1 source) Acute embolism and thrombosis of unspecified deep veins of unspecified lower extremity; Translations: [Acute embolism and thrombosis of unspecified deep veins of unspecified lower extremity] Onset: 5 Episodic Pulmonary heart disease (2 sources) Pulmonary [...] Results Test Name Value Interpretation Reference Range [facility] 09-07-2019 Anion gap [Moles/Vol] 4 mmol/L Low 5-16 [facility] Comment on above: Performed By: #### L 500.85981, L500.86449 #### [facility] [address] [place] [address] Calcium [Mass/Vol] 8.8 mg/dL Normal 8.5-10.1 [facility] Comment on above: Performed By: #### L 500.25443, L500.68994 #### [facility] [address] [place] [address] Chloride [Moles/Vol] 104 mmol/L Normal 98-107 [facility] Comment on above: Performed By: #### L 500.37472, L500.99861 #### [facility] [address] [place] [address] CO2 [Moles/Vol] 31 mmol/L Normal 21-32 [facility] Comment on above: Performed By: #### L 500.51834, L500.62848 #### [facility] [address] [place] [address] Creatinine [Mass/Vol] 0.856 mg/dL Normal 0.510-0.950 [facility] Comment on above: Result Comment: Maggy ents receiving either N-Acetylcysteine (NAC) or Metamizole prior to venipuncture, may have falsely depressed results. Performed By: #### L 500.29415, L500.73309 #### [facility] [address] [place] [address] Glucose [Mass/Vol] 106 mg/dL High 70-100 [facility] Comment on above: Result Comment: 70-1 00- Normal Fasting; 100-125 Impaired Fasting; greater than 126 on more than one result- Diabetes. ADA guidelines. Results may be falsely elevated after the administration of Sulfapyridine. Results may be falsely depressed after the administration of Sulfasalazine. Performed By: #### L 500.50775, L500.92806 #### [facility] [address] [place] [address] Potassium [Moles/Vol] 4.4 mmol/L Normal 3.5-5.1 [facility] Comment on above: Performed By: #### L 500.57422, L500.86936 #### [facility] [address] [place] [address] Sodium [Moles/Vol] 139 mmol/L Normal 136-145 [facility] Comment on above: Performed By: #### L 500.84635, L500.44905 #### [facility] [address] [place] [address] Urea nitrogen [Mass/Vol] 23 mg/dL Normal 7-26 [facility] Comment on above: Performed By: #### L 500.11927, L500.82631 #### [facility] [address] [place] [address] Urea nitrogen/Creatinine [Mass ratio] 26 mg/mg High 15-24 [facility] Comment on above: Performed By: #### L 500.73293, L500.77183 #### [facility] [address] [place] [address] GFR ESTon 09-07-2019 IF AMER Greater than 60 Normal [facility] Comment on above: Performed By: #### L 500.93002, L500.34998 #### [facility] [address] [place], [place] [id number] IF non-AFR AMER Greater than 60 [facility] Comment on above: Performed By: #### L 500.36674, L500.58509 #### [facility] [address] [place] [address]# [phone] ANES Dank 11-06-2018 ANES POST HNO ID: [id number] Author: Rajeev Perry Service: Anesthesiology Author Type: [...] 06, 2018 TIME: 9:44 AM PAGER/CONTACT #: [facility] ANES PREOPon 11-06-2018 ANES PREOP HNO ID: [id number] Author: Rajeev Perry Service: Anesthesiology Author Type: Physician Type: Anesthesia PreOp Filed: 11/06/2018 8:08 AM Note Text: ANESTHESIOLOGY DAY OF SURGERY NOTE SERVICE DATE: 11/06/2018 SERVICE TIME: 0 : 1945 Procedure(s) (LRB): EGD (N/A) Surgeon(s): [...] LIST Oa (Osteoarthritis) of Knee Morbid Obesity ([facility]) Htn (Hypertension) Dm (Diabetes Mellitus) ([facility]) Obesity Pe (Pulmonary Embolism) S/P Total Knee Arthroplasty Uti (Lower Urinary Tract Infection) Abnormal Mammogram, Unspecified Hamstring Tendonitis At Origin Dvt (Deep Vein Thrombosis) in ([facility]) Right Flank Pain PAST MEDICAL HISTORY Diagnosis Date - Chronic obstructive pulmonary disease (COPD) ([facility]) pt states this had resolved since her gastric bypass, denies SOB, does not use any inhalers - Chronic renal insufficiency Creatinine was 0.87 in 09-04-18 - Depressive disorder, not elsewhere classified - DM (diabetes mellitus) ([facility]) resolved after the gastric bypass in 2010 - HTN (hypertension) - Kidney stones - Morbid obesity ([facility]) 02/20/2012 Lost 190 pounds after Gastric bypass in 2011 - Neuropathy ([facility]) mc LE; began when she was diabetic [...] by mouth once daily. cyanocobalamin/folic acid (VITAMIN H76-YOZQU ACID) 500-400 mcg tab Take 1 tablet [...] November 06, 2018 TIME: 8:07 AM CSN: [id number] [facility] HISTORY PHYSICALon HISTORY PHYSICAL HNO ID: [id number] Author: Tressa Calles (Pa) Service: ? Author Type: Physician Transport Medic Type: HANDP Filed: 11/06/2018 8:08 AM Note [...] Chronic obstructive pulmonary disease (COPD) ([facility]) pt states this had resolved since her gastric bypass, denies SOB, does not use any inhalers - Chronic renal insufficiency Creatinine was 0.87 in 09-04-18 - Depressive disorder, not elsewhere classified - DM (diabetes mellitus) ([facility]) resolved after the gastric bypass in 2010 - HTN (hypertension) - Kidney stones - Morbid obesity ([facility]) 02/20/2012 Lost 190 pounds after Gastric bypass in 2011 - Neuropathy ([facility]) mc LE; began when she was diabetic [...] mouth once daily. Yes cyanocobalamin/folic acid (VITAMIN V99-IKRRN ACID) 500-400 mcg tab Take 1 tablet [...] 2018 TIME: 7:56 AM PAGER/CONTACT #: [facility] NURSING PROGon 11-06-2018 Protein mass conc HNO ID: [id number] Author: Maya (Rn) LORENZO Chen Service: ? Author Type: Registered Nurse Type: Nursing Progress Note Filed: 11/06/2018 9:18 AM Note Text: Dr Dupont spoke with patient and daughter both verbalize understanding of discharge instructions and verbalize ready for discharge [facility] OPERATIVE NOon 11-06-2018 OPERATIVE NO HNO ID: [id number] Author: Bull Dupont Service: Gastroenterology Surgery Author Type: Physician Type: Operative Report Filed: 11/10/2018 9:04 AM Note Text: [facility] - Operative Report - MARY GRACE ENRIQUEZ : 1945 AGE: 73. SEX: F PATIENT TYPE: A HOSP SVC: GENS LOCATION: [facility] ATTENDING PHYSICIAN: BULL DUPONT CSN NUMBER: [id number] DATE OF SURGERY/PROCEDURE: 11/06/2018 INCISION/PROCEDURE START TIME: 8:32 AM INCISION CLOSE/PROCEDURE END TIME: 8:41 AM PREOPERATIVE DIAGNOSIS: Gastroesophageal reflux disease, history of gastric bypass. POSTOPERATIVE DIAGNOSIS: Gastroesophageal reflux disease, history of gastric bypass, 3-4 cm hiatal hernia. SURGEON: Bull Dupont MD PLASTIC BLOCK BOILER RELINER: Nursing. SURGERY/PROCEDURE: Esophagogastroduodenoscopy with biopsy of gastric [...] tolerated the procedure well. Bull Dupont MD WJC:[id number] /[id number] [facility] PT EDon 11-06-2018 PT ED HNO ID: [id number] Author: Chanell (Rn) LORENZO Cedeno Service: ? [...] follow-up Electronically signed by: Chanell Cedeno RN [facility] Surgical Tissue Examon 11-06 Surgical Tissue Exam Test performed at [place] [address] NAME: MARY GRACE ANDERSON REQUESTING: BULL DUPONT [...] 17:08 PRINTED: 11/11/2018 Page 1 of 1 [facility] Comment on above: Performed By: #### S URG #### [place] [address] HOSPon 09-29-2018 HOSP Patient:Maggie Anderson MRN: Height:5' 5"(1.651 m) Weight:No patient weight recorded within the last 30 days. Outpatient Medications as of 11/06/18: PARoxetine (PAXIL) 20 mg tablet pravastatin (PRAVACHOL) 40 mg tablet VESICARE 5 mg tablet Cholecalciferol, Vitamin D3, (VITAMIN D) 1,000 unit cap cyanocobalamin/folic acid (VITAMIN Z61-CXVHE ACID) 500-400 mcg tab apixaban (ELIQUIS) 5 [...] of knee [M17.10] Morbid obesity ([facility]) [E66.01] HTN (hypertension) [I10] DM (diabetes mellitus) ([facility]) [E11.9] Obesity [E66.9] PE (pulmonary embolism) [I26.99] S/P total knee arthroplasty [Z96.659] UTI (lower urinary tract infection) [N39.0] Abnormal mammogram, unspecified [R92.8] Hamstring tendonitis at origin [M76.899] DVT (deep vein thrombosis) in ([facility]) [O22.30, I82.409] Right flank pain [R10.9] Allergies: Amoxicillin Coumadin [Warfarin Sodium] Date Verified: 11/06/18 Lab Values No results within the last 30 days for the following basenames: K,HCT No progress notes entered within the past 30 days [facility] OBSOLETEon 01-01-2018 OBSOLETE Refill (AGGENS4) MARY GRACE ANDERSON ([id number]) 1945 F Date Time Provider Department 01/01/18 ALICIA CULLEN (NOHEMY) AGGENS4 During your visit today, we recorded [...] Encounter Status:Closed by PRIMITIVO MENDOSA on 04/07/18 [facility] OBSOLETEon 12-09-2017 OBSOLETE Refill (AGGENS4) MARY GRACE ANDERSON ([id number]) 1945 F Date Time Provider Department 12/09/17 ALICIA CULLEN (HOMICIDE SQUAD SERGEANT) AGGENS4 During your visit today, we recorded [...] Encounter Status:Closed by PRIMITIVO MENDOSA on 04/07/18 [facility] CASE MANAGEMon 06-19-2017 CASE MANAGEM HNO ID: [id number] thor: Yazmin Pan) [place]ranoService: Care ManagementAuthor Type: [...] needs: Pt to returnhome w/ resumption of [employer] services only [facility] the patient have an acute stroke diagnosis, or has the patient had astroke during this admission? NoHANDOFF COMMUNICATION:[employer] Sales Representative: David Schwarz via MUSETRANSPORTATION ARRANGEMENTS:Car familyADDITIONAL CONTACT RESOURCES: n/aNo new skilled services added. Plan to resume [facility] for HHAservices only 3x weekly. RUKHSANA left w/ [place] [employer] updating herof pt's discharge and return home with no new skilled services added atthis time.SIGNATURE: YEISON Reed PATIENT NAME: Mary Grace Solano: June 19, 2017 : 5:45 PM PAGER/CONTACT #: [phone] [facility] CNDSon 06-19-2017 CNDS HNO ID: [id number] thor: Emily Osuna: (none)Author Type: PhysicianType: Discharge [...] 19, 2017 : 1:38 PM PAGER: CDU [facility] NURSING PROGon 06-19-2017 NURSING PROG HNO ID: [id number] thor: Chris LynRn) Rohith Peterson: (none)Author Type: Registered NurseType: Nursing Progress NoteFiled: 06/19/2017 7:10 PMNote Text: Nursing Progress NotePatient Name: Mary Grace CoxN: [id number] Location: [place] [address] [address]*___ Daily Note:0938 - stable, alertThis note was completed by: Chris Peterson, [id number] removed, site wnl, patient alert and stable [facility] NURSING PROG HNO ID: [id number] thor: Karon LynRn) Rohith Greer: (none)Author Type: Registered NurseType: Nursing Progress NoteFiled: 06/19/2017 3:02 AMNote Text: Nursing Progress NotePatient Name: Mary Grace EnriquezRN: [id number] Location: [place] [address] [address]*___ Daily Note:1900: Assumed care of pt report taken from offgoing RN.2030: Assessments per NPR. Pt drinking miralax in gatorade, toleratingwell. Denies pain. All needs met and safety maintained.0030: Pt nearly finished miralax, states she is unable to totally finish.0300: Pt sleeping no distress noted. Safety maintainedThis note was completed by: Karon Greer RN [facility] PROGRESSon 06-19-2017 PROGRESS HNO ID: [id number] thor: Emily L FababeService: (none)Author Type: PhysicianType: Progress NotesFiled: 06/19/2017 1:26 PMNote Text:RAPID OBSERVATION UNITPROGRESS NOTEName: Mary Grace EnriquezRN: [id number] DATE: 06/19/2017SERVICE TIME: 1:08 PMHospital Medicine/Primary Attending: [...] discussed with: PatientSIGNATURE: Emily Basilio MDDATE: June 19, 2017TIME: 1:08 PM [facility] XR ABDOMEN 1V SUPINEon 06-19 XR [...] changes in the spine.IMPRESSION:Decrease stool burden. No obstruction.Student Services Coordinator : PSCB Transcribe Date/Time: Jun 19 2017 10:34ADictated by : ELIDA HART MDThiaxel examination was interpreted and the report reviewed and electronically signed by: ELIDA HART MD on Jun 19 2017 10:35AM [id number] [facility] CASE MANAGEMon 06-18-2017 CASE MANAGEM HNO ID: [id number] thor: Bere LynRn) BEKAH Daveervice: Care ManagementAuthor Type: Registered NurseType: Care Mgt Progress NoteFiled: 06/18/2017 3:51 PMNote Text:CARE MANAGEMENT PROGRESS NOTESERVICE DATE: 06/18/2017SERVICE TIME: 3:48 PM LOS: 0 daysNeeds Prior to Discharge: To Be DeterminedPatient active with [facility] in [place] [phone] for pump runner[facility] under obs to 5th floor [facility] but planned to return home with agency's services. CM will follow.SIGNATURE: Bere Dave RN PATIENT NAME: Mary Grace AndersonDATE: June 18, 2017 : 3:47 PM PAGER/CONTACT #: [phone] [facility] CASE MGT INIT ASSESon 2016 CASE MGT INIT ASSES HNO ID: [id number] thor: Bere (Rn) BEKAH Daveervice: Care ManagementAuthor Type: Registered NurseType: Care Mgt Initial AssessmentFiled: 06/18/2017 10:50 AMNote Text:CARE MANAGEMENT: ASSESSMENT AND DISCHARGE PLANSERVICE DATE: 06/18/2017SERVICE TIME: 10:22 AMPRIMARY CARE PHYSICIAN:BILLY Ontiveros [place]: [phone] STATUS: ObservationPOTENTIAL DISCHARGE PLANSHomeHome CareTo Be DeterminedPatient/Sandiea ania Stated Goals: Return home granddaughter and [id number] grandchildrenNeeds Prior to Discharge: To Be DeterminedHealth Insurance: [facility] Medicare and MedicaidLiving Arrangement: HomeLives With: Grand daughter and great grand childrenFinancial Resources: Natalie Contact:Extended Emergency Contact InformationPrimary Emergency Contact:Guera CruzOdilonddress: Relation:DaughterSupport waqar: YesOther Important Patient Contacts: NoneCAREGIVER ASSESSMENT:Caregiver is ready, willing and able to meet the patient's needs asrecommended by the inter-professional team? YesPatient's transition needs and plan for meeting these needs: [facility] the patient have an acute stroke diagnosis, or has the patient had astroke during this admission? NoADVANCE DIRECTIVES:Does Patient Have Advance Directives? Yes: Durable Power of Retail Selling Floor Leader forHealth Care: Mariajose Bonds(daughter) [phone] , copy is in chartDoes Patient Have Concerns About Advance Directives? NoPRIOR TO ADMISSION:Baseline Mental Status: Alert AND Oriented, Person, Place , Time andSituationFunctional Status: Needs AssistanceDoes Patient Currently Receive Any Community Services or Home Care? [employer] [facility] Prior to Admission: Tub bench/chairWalkerWheelchairG rab bars [...] days? NoHas the Patient Been in a Penitentiary Facility in the Past 30 days? NoFREEDOM OF CHOICE EXPLAINED:Lan/CRYSTAL COMMUNICATION:PRIMARY CARE PHYSICIAN:BILLY Ontiveros [place]: [phone] met with patient in room. Patient admitted for right flank pain andcolon distension. Patient lives at home with her granddaughter and greatgrand children. She receives assistance from [employer] x3/week from [facility] in [place] to help assist her with housework and help her to bathe.Patient has CW through [facility] [phone]. Patient spokewith her protective services case worker this am to make her aware she was in the hospital.Patient's daughter available for transport home. Anticipate no additionalskilled needs.SIGNATURE: Bere Dave RN PATIENT NAME: Mary Grace SeymourTE: June 18, 2017 : 10:22 AM PAGER/CONTACT #: [phone] [facility] CONSULTon 06-18-2017 CONSULT HNO ID: [id number] thor: Yael MarxeService: GastroenterologyAuthor Type: Nurse PractitionerType: [...] similar presentation last month andwas seen in [place] ED where she lives and states CT [...] mouth three timesdaily. Disp: Rfl: 06/17/[address] [place] [address] medications:gabapentin 300 mg cap(s) (NEURONTIN) 300 mg [...] Temp Temp src Pulse Resp SpO2 Height Paiavy42/27/17 0700 131/78 36.5 ?C (97.7 ?F) Oral 71 18 96 % - -06/18/17 0319 97/62 36.8 ?C (98.3 ?F) Oral 68 20 96 % - -06/18/17 0036 109/56 36.6 ?C (97.9 ?F) Oral 70 20 95 % - -06/17/171999 - - - - - - - 135.6 kg (298 lb 14.4 oz)06/17/17 192 150/82 36.4 ?C (97.5 ?F) Oral 71 [...] 75CA 8.7CHLOR 106K 4.3CO2 22*NA 140SIGNATURE: Yael Manning CNP PATIENT NAME: Mary Grace AndersonDAANDREE: June 18, 2017 : 11:41 AM PAGER: [phone] [facility] NURSING PROGon 06-18-2017 NURSING PROG HNO ID: [id number] thor: Edward (Rn) BEKAH Yanezervice: (none)Author Type: Registered NurseType: Nursing Progress NoteFiled: 06/18/2017 7:04 PMNote Text: Nursing Progress NotePatient Name: Mary Grace Valladares: [id number] Location: [place] [address]___ Daily Note:1530-This RN assumed care of this [...] note was completed by: Edward Yanez RN [facility] PROGRESSon 06-18-2017 PROGRESS HNO ID: [id number] thor: Emily Osuna: (none)Author Type: PhysicianType: Progress NotesFiled: 06/18/2017 10:34 AMNote Text:RAPID OBSERVATION UNITPROGRESS NOTEName: Mary Grace EnriquezRN: [id number] DATE: 06/18/2017SERVICE TIME: 10:27 AMHospital Medicine/Primary Attending: Emily Basilio MDASSESSMENT AND PLANPatient Active Hospital Problem List:1. Right flank pain3. Colon distention POA: Clinically UndeterminedDiscussed with GI-- Recheck xray today. If distension worsening, will needdecompressive colonoscopy today, if improved, will do prep and plan forcolonoscopy tomorrow.2. Abnormal urinalysis POA: YesAwait culture.Emily Basilio, MDSUBJECTIVEINTERVAL HPI:Some improvement of symptoms, passing gas [...] Basilio, MDDATE: June 18, 2017TIME: 10:27 AM [facility] XR ABD 2V SUPINE W UPR/DECUB [...] MONTIEL MD on Jun 18 2017 11:48AM [id number] Normal [facility] ALLIED HEALTHon 06-17-2017 ALLIED HEALTH HNO ID: [id number] thor: Janette Guerreroervice: (none)Author Type: (none)Type: Allied HealthFiled: 06/17/2017 3:43 PMNote Text: Radiology Service Progress NotePATIENT NAME: Mary Grace McnaironyMRN: [id number] OF SERVICE: June 17, 2017TIME: 3:43 PMPATIENT IDENTITY VERIFICATION COMPLETED USING TWO (2) METHODS: Patientconfirmed name verbally and ID band matches..PATIENT GENDER DATA: Female. status: : NoBreastfeeding status: NO.PATIENT RELEVANT IMPLANT DATA REVIEWED: Not ApplicableRADIOLOGY DEPARTMENT: CT; Exam(s) Completed: Abdomen/PelvisPERIPHERAL IV DATA: Not applicableSIGNED BY: Janette Arreguin 2016 3:43 PM [facility] CBC and Differentialon 06-17 Abs Baso 0.03 k/uL Normal <0.11 [facility] Comment on above: Performed By: #### C BCDIF, CMP, LIPA ####[place] [phone] Abs Mckinley 0.49 k/uL Normal <0.87 [facility] Comment on above: Performed By: #### C BCDIF, CMP, LIPA ####[place] [phone] Abs Neut 4.64 k/uL Normal 1.45-7.50 [facility] Comment on above: Performed By: #### C BCDIF, CMP, LIPA ####[place] [phone] Basophils/100 WBC Auto (Bld) 0.5 % Normal [facility] Comment on above: Performed By: #### C BCDIF, CMP, LIPA ####[place] [address] DTYPE Auto Diff Normal [facility] Comment on above: Performed By: #### C BCDIF, CMP, LIPA ####[place] [address] Eosinophils 0.10 10*3/uL Normal <0.46 [facility] Comment on above: Performed By: #### C BCDIF, CMP, LIPA ####[place] [address] Eosinophils/100 leukocytes 1.6 % Normal [facility] Comment on above: Performed By: #### C BCDIF, CMP, LIPA ####[place] [address] Erythrocyte distribution width Auto Ratio (RBC) 14.4 % Normal 11.5-15.0 [facility] Comment on above: Performed By: #### C BCDIF, CMP, LIPA ####[place] [address] Erythrocytes (RBC) 4.52 10*6/uL Normal 3.90-5.20 [facility] Comment on above: Performed By: #### C BCDIF, CMP, LIPA ####[place] [address] Hematocrit (HCT) 42.1 % Normal 36.0-46.0 [facility] Comment on above: Performed By: #### C BCDIF, CMP, LIPA ####[place] [address] Hemoglobin mass conc (Bld) 13.7 g/dL Normal 11.5-15.5 [facility] Comment on above: Performed By: #### C BCDIF, CMP, LIPA ####[place] [address] Lymphocytes 1.19 10*3/uL Normal 1.00-4.00 [facility] Comment on above: Performed By: #### C BCDIF, CMP, LIPA ####[place] [phone] Lymphocytes/100 leukocytes 18.4 % Normal [facility] Comment on above: Performed By: #### C BCDIF, CMP, LIPA ####[place] [phone] MCH 30.3 pG Normal 26.0-34.0 [facility] Comment on above: Performed By: #### C BCDIF, CMP, LIPA ####[place] [phone] MCHC mass conc (RBC) 32.5 g/dL Normal 30.5-36.0 [facility] Comment on above: Performed By: #### C BCDIF, CMP, LIPA ####[place] [phone] MCV 93.1 fL Normal 80.0-100.0 [facility] Comment on above: Performed By: #### C BCDIF, CMP, LIPA ####[place] [phone] Monocytes/100 leukocytes 7.6 % Normal [facility] Comment on above: Performed By: #### C BCDIF, CMP, LIPA ####[place] [phone] Neutrophils/100 WBC Auto (Bld) 71.9 % Normal [facility] Comment on above: Performed By: #### C BCDIF, CMP, LIPA ####[place] [phone] Platelet mean volume (PMV) 10.0 fL Normal 9.0-12.7 [facility] Comment on above: Performed By: #### C BCDIF, CMP, LIPA ####[place] [phone] Platelets 235 10*3/uL Normal 150-400 [facility] Comment on above: Performed By: #### C BCDIF, CMP, LIPA ####[facility] [place], [place] [phone] WBC (Leukocytes) 6.45 10*3/uL Normal 3.70-11.00 [facility] Comment on above: Performed By: #### C BCDIF, BENNETT, LIPA ####[facility] [place], [place] [phone] CT ABD/PEL WO IVCONon 2016 CT ABD/PEL [...] result in clinically relevant disease to these organs.Student Services Coordinator: ARMANDO Transcribe Date/Time: Jun 17 2017 4:00PDictated by : VERONIQUE SHEPHERD MDThis examination was interpreted and the report reviewed and electronically signed by: VERONIQUE SHEPHERD MD on Jun 17 2017 4:15PM [id number] Normal [facility] Comp Metabolic Panelon 06-17 Alanine aminotransferase (ALT) 13 U/L Normal 0-45 [facility] Comment on above: Performed By: #### C BCDIF, CMP, LIPA ####[address] Albumin 3.7 g/dL Normal 3.5-5.0 [facility] Comment on above: Performed By: #### C BCDIF, CMP, LIPA ####[address] Alkaline phosphatase (ALP) 51 U/L Normal 40-150 [facility] Comment on above: Performed By: #### C BCDIF, CMP, LIPA ####[place] [phone] Anion gap 12 mmol/L Normal 9-18 [facility] Comment on above: Performed By: #### C BCDIF, CMP, LIPA ####[place] [phone] Aspartate aminotransferase (AST) 17 U/L Normal 7-40 [facility] Comment on above: Performed By: #### C BCDIF, CMP, LIPA ####[place] [phone] Bilirubin (total) 0.3 mg/dL Normal 0.0-1.5 [facility] Comment on above: Performed By: #### C BCDIF, CMP, LIPA ####[address] Calcium 8.7 mg/dL Normal 8.5-10.5 [facility] Comment on above: Performed By: #### C BCDIF, CMP, LIPA ####[place] [address] Chloride 106 mmol/L Normal 98-110 [facility] Comment on above: Performed By: #### C BCDIF, CMP, LIPA ####[address] CO2 22 mmol/L Low 23-32 [facility] Comment on above: Performed By: #### C BCDIF, CMP, LIPA ####[place] [phone] Creatinine 0.72 mg/dL Normal 0.70-1.40 [facility] Comment on above: Performed By: #### C BCDIF, CMP, LIPA ####[place] [phone] eGFR (non-black) mL/min/{1.73_m2} Normal >60 [facility] Comment on above: Performed By: #### C BCDIF, CMP, LIPA ####[place] [phone] Glucose mass conc 75 mg/dL Normal 65-100 [facility] Comment on above: Performed By: #### C BCDIF, CMP, LIPA ####[place] [phone] Potassium molar conc 4.3 mmol/L Normal 3.5-5.0 [facility] Comment on above: Performed By: #### C BCDIF, CMP, LIPA ####[facility] [place], [place] [phone] Protein 6.8 g/dL Normal 6.0-8.4 [facility] Comment on above: Performed By: #### C BCDIF, CMP, LIPA ####[facility] [place], [place] [phone] Sodium 140 mmol/L Normal 132-148 [facility] Comment on above: Performed By: #### C BCDIF, CMP, LIPA ####[facility] [place] [phone] Urea nitrogen 20 mg/dL Normal 8-25 [facility] Comment on above: Performed By: #### C BCDIF, CMP, LIPA ####[place] [id number] [place], [place] [phone] ED NOTEon 06-17-2017 ED NOTE HNO ID: [id number] Author: Maggie (Rn) LORENZO Wallace Service: (none) Author Type: Registered Nurse Type: ED Notes Filed: 06/17/2017 2:43 PM Note Text: Bed: 18-ED Expected date: Expected time: Means of arrival: Comments: [facility]20 - 71F [facility] ED PROV NOTEon 06-17-2017 ED PROV NOTE HNO ID: [id number] thor: FABIO Duongervice: Emergency MedicineAuthor Type: PhysicianType: ED Provider NotesFiled: 06/17/2017 5:58 PMNote Text:ED Provider NotePatient Name: Mary Grace XuKaterinaRN: [id number] DATE: 06/17/17HistoryPatient presents with:Flank Pain: right side [...] daughter for the holidays, PCP out of [place].History provided by: Patient and medical recordsPAST MEDICAL [...] was Dr. Marquez.Plan:The patient [facility]. Discussed w/ Dr. Cobb.Consent: A procedure or transfusion was performed - MADELYN Burr-Harry Diagnosis ICD-10-CM1. Acute cystitis without hematuria N30.002. Right flank pain R10.9PlanThe Patient was ADMITTED TO: Regular nursing floor.Condition at time of disposition: stableSIGNATURE: MADELYN Lugo-MADELYN Neumann (Pa)06/17/17 1744ATTENDING ATTESTATION NOTE:I have personally performed a face to face assessment of the patient andhave reviewed the PA/SUPERVISOR FABRICATION DEPARTMENT note. My anderson findings include:History: C/o RLQ pain w/ rad to back, x 2 days, h/o stones, denies N/V/D,tried TylenolExam: AFVSS, NAD, abd s, BLQ and suprapubic ttp, BS hypoactive, noguard/reboundAssessment/Pl an: Labs, urine, CTErin Blanca Marquez MD06/17/17 1758 Normal [facility] HISTORY PHYSICALon HISTORY PHYSICAL HNO ID: [id number] thor: [place] ([facility]) KoltonService: General Internal MedicineAuthor Type: Nurse PractitionerType: HANDPFiled: 06/17/2017 11:52 PMNote Text:HISTORY AND PHYSICAL EXAMINATIONSERVICE DATE: 06/17/2017SERVICE TIME: [facility] GINA Ontiveros Chi COMPLAINT: [...] she was seen in the hospital in [place] for similarright low back/abdominal pain and that [...] Temp Temp src Pulse Resp SpO2 Height Tdvbfc20/26/17 1925 150/82 36.4 ?C (97.5 ?F) Oral [...] 2017 : 8:36 PM PAGER/CONTACT #: Normal [facility] Lipaseon 06-17-2017 Lipase 27 U/L Normal [facility] Comment on above: Performed By: #### C BCDIF, CMP, LIPA ####[facility] [place], [place] [phone] NURSING PROGon 06-17-2017 NURSING PROG HNO ID: [id number] thor: Sasha (Rn) Rickey, RNService: (none)Author Type: Registered NurseType: Nursing Progress NoteFiled: 06/17/2017 9:55 PMNote Text: Nursing Progress NotePatient Name: Mary Grace EnriquezRN: [id number] Location: [place] [address]/[place] [address]*___ Daily Note:1899- Report received from Matilda HERNÁNDEZ.2000- Pt states she started to have right flank pain this morning ufzsob45 am. Active bowl sounds. Pt aANDox3. GI on consult.This note was completed by: Sasha Lang RN Normal [facility] Urinalysis with Microscopico n 06-17-2017 Bilirubin, Urine Negative Normal Negative [facility] Comment on above: Performed By: #### U AWMIC ####[place] [address] Comments SEE COMMENT Normal [facility] Comment on above: Result Comment: Micr oscopic Examination Performed Performed By: #### U AWMIC ####[place] [address] Erythrocytes (RBC) 0-5 Critically abnormal Negative [facility] Comment on above: Performed By: #### U AWMIC ####[place] [address] Hemoglobin mass conc (Bld) Negative Normal [facility] Comment on above: Performed By: #### U AWMIC ####[place] [address] Leukest Moderate Critically abnormal Negative [facility] Comment on above: Performed By: #### U AWMIC ####[place] [address] pH of blood 6.0 [pH] Normal 5.0-8.0 [facility] Comment on above: Performed By: #### U AWMIC ####[place] [address] Protein, Urine Negative Normal [facility] Comment on above: Performed By: #### U AWMIC ####[place] [address] Specific Hartly, Ur 1.008 Normal 1.005-1.030 [facility] Comment on above: Performed By: #### U AWMIC ####[place] [address] Urine, bacteria in sediment Rare Critically abnormal Negative [facility] Comment on above: Performed By: #### U AWMIC ####[place] [phone] Urine, clarity Clear Normal Clear [facility] Comment on above: Performed By: #### U AWMIC ####[place] [phone] Urine, color Straw Critically abnormal Yellow [facility] Comment on above: Performed By: #### U AWMIC ####[place] [phone] Urine, epithelial cells in sediment SEE COMMENT Critically abnormal Negative [facility] Comment on above: Result Comment: Rare Squamous Epithelial Cells Performed By: #### U AWMIC ####[place] [phone] Urine, glucose presence Negative Normal Negative [facility] Comment on above: Performed By: #### U AWMIC ####[place] [phone] Urine, ketones presence Negative Normal Negative [facility] Comment on above: Performed By: #### U AWMIC ####[place] [phone] Urine, mucus presence in sediment Present Normal [facility] Comment on above: Performed By: #### U AWMIC ####[place] [phone] Urine, nitrite presence Negative Normal Negative [facility] Comment on above: Performed By: #### U AWMIC ####[place] [phone] Urine, urobilinogen <2.0 Normal <2.0 [facility] Comment on above: Performed By: #### U AWMIC ####[place] [address] WBC (Leukocytes) Many Critically abnormal Negative [facility] Comment on above: Performed By: #### U AWMIC ####[place] [phone] Urine Cultureon 06-17-2017 Urine culture, bacteria Sp. Request/Comment: - Specimen received in preservative Culture Result - <10,000 CFU/ml Normal urogenital jhony Normal [facility] Comment on above: Performed By: #### C BCDIF, CMP, LIPA ####[facility] [place], [place] [phone] Office Visit: UC: cat scratc h to Teena legspeedy 12-19-2016 Documentation of current medications (procedure) Done Invalid Interpretation Code [facility] Work Phone: Fall risk assessment Yes Invalid Interpretation Code [facility] Work Phone: Tobacco use [facility]PH[facility] Unknown if ever smoked Invalid Interpretation Code [facility] Work Phone: SURGICAL PATHOLOGY, CONVERTE Don 01-17-2006 [facility] SURGICAL PATHOLOGY, CONVERTE Don 03-22-2005 [facility] Vital Signs Date Time Vital Sign Value Performing Clinician Mark Anthonyi lity 12-19-2016 16:20-0400 Body Temperature 98 [degF] Bogdan JOSHI [facility] Work Phone: 12-19-2016 16:20-0400 BP Diastolic 78 mm[Hg] Bogdan JOSHI [facility] Work Phone: 12-19-2016 16:20-0400 BP Systolic 130 mm[Hg] Bogdan JOSHI [facility] Work Phone: 12-19-2016 16:20-0400 Pulse (Heart Rate) 98 /min Bogdan JOSHI [facility] Work Phone: 12-19-2016 16:20-0400 Respiratory Rate 12 /min Bogdan JOSHI [facility] Work Phone: 12-19-2016 16:20-0400 Weight 133.36 kg Bogdan JOSHI [facility] Work Phone: Encounters Encounter Date Encounter Type Care Provider Facility Start: 05-09-2025 ambulatory Bobby Hopsoni lity:[facility] Start: 04-12-2025 End: 04-12-2025 ambulatory Christopher Ranney Facility:[facility] Start: 03-31-2025 End: 03-31-2025 ambulatory Jay Mollison Facility:[facility] Start: 03-09-2025 End: 03-09-2025 ambulatory Jay Mollison Facility:[facility] Start: 03-07-2025 End: 03-07-2025 ambulatory Christopher Sameerney Facility:[facility] Start: 02-24-2025 End: 02-24-2025 Emergency department patient visit Susu Jacque Facility:[facility] Start: 02-07-2025 End: 02-07-2025 ambulatory Jay Mollison Facility:[facility] Start: 01-25-2025 End: 01-25-2025 ambulatory Jay Mollison Facility:[facility] Start: 01-21-2025 End: 01-21-2025 ambulatory Christopher Sameerney Facility:[facility] Start: 01-15-2025 End: 01-16-2025 Emergency department patient visit Jarad Darnell Facility:[facility] Start: 01-10-2025 End: 01-10-2025 ambulatory Christopher Blair Facility:[facility] Start: 12-23-2024 End: 12-23-2024 Emergency department patient visit Bobby Pinto Facility:[facility] Start: 12-02-2024 End: 12-02-2024 ambulatory Christopher Blair Facility:[facility] Start: 11-07-2024 End: 11-08-2024 Emergency department patient visit Bobby Pinto Facility:[facility] Start: 10-27-2024 End: 10-27-2024 ambulatory Christopher Blair Facility:[facility] Start: 10-18-2024 ambulatory Christopharon Pinto Faci lity:[facility] Start: 10-17-2024 ambulatory Rosa Juanita Koram Facility :[facility] Start: 10-17-2024 End: 10-20-2024 Evaluation and management of inpatient Rosa Juanita Koram Facility:[facility] Start: 10-12-2024 End: 10-12-2024 ambulatory Christopher Blair Facility:[facility] Start: 10-04-2024 End: 10-04-2024 ambulatory Christopher Ranney Facility:[facility] Start: 09-06-2024 End: 09-06-2024 ambulatory Bobby Pinto Facility:[facility] Start: 08-09-2024 ambulatory Bobby Pinto Faci lity:[facility] Start: 07-12-2024 End: 07-12-2024 ambulatory Bobby Pinto Facility:[facility] Start: 06-28-2024 End: 06-28-2024 ambulatory Bobby Pinto Facility:[facility] Start: 06-27-2024 ambulatory Bobby Pinto Faci lity:[facility] Start: 06-20-2024 ambulatory Bobby Pinto Faci lity:[facility] Start: 05-26-2024 End: 05-26-2024 ambulatory Bobby Pinto Facility:[facility] Start: 05-12-2024 End: 05-12-2024 ambulatory Bobby Pinto [place] [place] Start: 05-08-2024 End: 05-09-2024 Emergency department patient visit Christmoon Pinto Facility:[facility] Start: 05-06-2024 End: 05-06-2024 ambulatory Bobby Pinto Facility:[facility] Start: 09-04-2018 End: 09-04-2018 Emergency department patient visit UNKNOWN PROVIDER Facility:[facility] Start: 06-17-2017 End: 06-19-2017 Ambulatory [facility] Start: 01-17-2006 Documentation procedure Brittany Mccloud MD Work Phone: [facility] Start: 01-17-2006 Historic EMR Kg Mccloud MD Work Phone: [facility] Start: 03-23-2005 Documentation procedure Kyler Li MD Work Phone: [facility] Start: 03-23-2005 Historic EMR Ciara suarez MD Work Phone: [facility] Procedures Date Procedure Procedure Detail Performing [...] Start: 02-21-2023 [facility]enza [facility] Start: 06-23-2022 Advance Directive Discussion Advance Directive Discussion [facility] Start: 06-23-2022 Depression Assessment Depression Assessment [facility] Start: 09-04-2019 Hepatitis B surface antibody level LDL Cholesterol [facility] Start: 12-19-2016 End: 12-19-2016 Appointment Appointment [facility] Work Phone: Start: 09-02-2011 Pneumococcal Vaccine: 65+ (2 - PCV) Pneumococcal Vaccine: 65+ (2 - PCV) [facility] Start: 06-29-2011 Hemoglobin A1c/Hemoglobin.total in Blood HbA1C [facility] Start: 2011 Bone Density Screening Bone Density Screening [facility] Start: 1996 Shingrix Vaccine (1 of 2) Shingrix Vaccine (1 of 2) [facility] Start: 1965 Urine microalbumin profile DTaP,Tdap,Td Vaccine (1 - Tdap) [facility] Start: 1964 Hepatitis C Screening Hepatitis C Screening [facility] Start: 1956 3 comp foot exam completed Diabetic Foot Exam [facility] Start: 1956 Hepatitis B screening Urine Albumin:Creatinine Ratio [facility] Start: 1956 Hepatitis C antibody, confirmatory test Dilated Retinal Exam [facility] Start: 1946 Covid-19 Vaccine (#1) Covid-19 Vaccine (#1) [facility] Work Phone: Immunizations Immunization Date Immunization Notes Care Provider Fa martha 03-12-2012 influenza virus vacc ine, unspecified formulation Ciara Li MD Work Phone: [facility] Payers Date Payer Category Payer Self-pay 2023 Unknown [id number] 2018 Unknown [id number] 1946 Unknown [id number] 2.16. [id number] Unknown [id number] 2.16.8 40.1.950752.3.579.2.462 Unknown [id number] 2.16.8 40.1.458839.3.579.2.462 Unknown [id number] 2.16.8 40.1.554108.3.579.2.462 Unknown [id number] 2.16.8 40.1.561389.3.579.2.462 Unknown [id number] 2.16.8 40.1.533452.3.579.2.462 Unknown [id number] 2.16.8 40.1.770318.3.579.2.462 Unknown [id number] 2.16.8 40.1.176567.3.579.2.462 Unknown [id number] 2.16.8 40.1.388352.3.579.2.462 Unknown [id number] 2.16.8 40.1.328314.3.579.2.462 Unknown [id number] 2.16.8 40.1.714646.3.579.2.462 Unknown [id number] 2.16.8 40.1.948452.3.579.2.462 Unknown [id number] 2.16.8 40.1.732943.3.579.2.462 Unknown [id number] 2.16.8 40.1.352018.3.579.2.462 Unknown [id number] 2.16.8 40.1.429507.3.579.2.462 Unknown [id number] 2.16.8 40.1.667629.3.579.2.462 Unknown [id number] 2.16.8 40.1.231561.3.579.2.462 Unknown [id number] 2.16.8 40.1.718512.3.579.2.462 Unknown [id number] 2.16.8 40.1.956052.3.579.2.462 Unknown [id number] 2.16.8 40.1.832339.3.579.2.462 Unknown [id number] 2.16.8 40.1.476628.3.579.2.462 Unknown [id number] 2.16.8 40.1.471935.3.579.2.462 Unknown [id number] 2.16.8 40.1.371979.3.579.2.462 Unknown [id number] 2.16.8 40.1.235662.3.579.2.462 Unknown [id number] 2.16.8 40.1.844498.3.579.2.462 Unknown [id number] 2.16.8 40.1.871223.3.579.2.462 Unknown [id number] 2.16.8 40.1.041532.3.579.2.462 Unknown [id number] 2.16.8 40.1.717458.3.579.2.462 Unknown [id number] 2.16.8 [id number] Unknown [id number] 2.16.8 [id number] Unknown [id number] 2.16.8 [id number] Unknown [id number] 2.16.8 [id number] Unknown [id number] 2.16.8 [id number] Unknown [id number] 2.16.8 [id number] Unknown [id number] 2.16.8 [id number] Social History Date Type Detail Facility Tobacco smoking stat [facility] Tobacco smoking consumption unknown [facility] Start: 01-19-2019 History of Social function [facility] Start: 01-19-2019 Tobacco use panel [facility] Start: 1945 Sex Assigned At Not on file [facility] Medical Equipment Procedure Code Equipment Code Equipment Origin al Text Equipment Identifier Dates Cement Bone Simp luisana P W/ Tobramycin 1gm - [id number] Start: 03-10-2012 Cement Bone Simp luisana P W/ Tobramycin 1gm - [id number] Start: 09-01-2012 Comp Fem 5 Rt Kn Cr Victorino Trthln - [id number] Start: 03-10-2012 Ins Tib 5 13mm X 3 Cndyl Stab - [id number] Start: 03-10-2012 Ins Tib 5 11mm X 3 Cs Trthln - [id number] Start: 09-01-2012 Comp Pat 10mm 35 mm Asym Trthln - [id number] Start: 03-10-2012 Comp Pat 10mm 35 mm Asym Trthln - [id number] Start: 09-01-2012 Screw Bn 3.5mm 4 0mm Dcp Lc Dcp - [id number] Start: 09-01-2012 History of Past illness Narrative 06-17-2017 Note Date & Type Note Facility 06-17-2017 History of Past i llness Narrative Problem Noted Date Diagnosed Date Resolved Date Abnormal urinalysis 06/17/2017 06/19/20 17 Colon distention 06/17/2017 06/19/2017 Rectal bleeding 07/28/2015 07/28/2015 Family history of colon cancer 07/28/2015 07/28/2015 History of colon polyps 07/28/201510/2015 documented as of this encounter (statuses as of 03/13/2023) [facility] Summary Purpose Family History No Family History Records FoundNo Family History Records FoundNo Family History Records FoundNo Family History Records FoundNo Family History Records FoundNo Family History Records Found Advance Directives No Advanced Directives Records FoundDocuments on File Type Date Recorded Patient Global Recruiter Expl 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 Advance Directive(s) 08/27/2012 8:21 PM Advance Directive(s) 08/27/2012 9:37 AM Procedure Findings Note HNO ID: [id number] Author: Ermelinda Dupont Service: Gastroenterology Surgery Author Type: Physician Type: Brief Op Note Filed: 11/06/2018 8:52 AM Note Text: BRIEF OPERATIVE / PROCEDURE NOTE LOG ID: [id number] SURGERY/PROCEDURE DATE: 11/06/2018 INCISION/PROCEDURE START TIME: 8:32 AM INCISION CLOSE/PROCEDURE END TIME: 8:41 AM SURGEON(S)/PROCEDURALIST(S) AND PLASTIC BLOCK BOILER RELINER(S): Surgeon(s) and Role: * Bull Dupont - Primary No Additional Staff SURGERY/PROCEDURE(S): EGD with biopsy gastric pouch ANESTHESIA: Monitored Anesthesia Care FINDINGS: 3-4 cm hiatal hernia ESTIMATED BLOOD LOSS: 0 ml SPECIMENS: gastric pouch COMPLICATIONS: None PRE-OP/PRE-PROCEDURE DIAGNOSIS: GERD POST-OP/POST-PROCEDURE DIAGNOSIS: Gastroesophageal reflux disease, esophagitis presence not specified [K21.9] 3-4 cm hiatal hernia SIGNATURE: Bull Dupont MD, [facility], [facility] PATIENT NAME: Mary Grace Anderson DATE: November 06, 2018 TIME: 8:51 AM PAGER/CONTACT #: Additional Source Comments INFORMATION SOURCE (unrecogn ized section and content) DATE CREATED AUTHOR 12/16/2017 [facility] DATE CREATED AUTHOR AUTHOR'S ORGANIZ ATION 11/19/2018 [facility] DATE CREATED AUTHOR AUTHOR'S ORGANIZ ATION 11/24/2018 [facility] DATE CREATED AUTHOR AUTHOR'S ORGANIZ ATION 09/07/2019 [facility] DATE CREATED AUTHOR AUTHOR'S ORGANIZ ATION 07/19/[address] [facility] DATE CREATED AUTHOR AUTHOR'S ORGANIZ ATION 05/03/2025 [facility] Source Comments (unrecognize d section and content) In the event this informatio n is protected by the Federal Confidentiality of Alcohol and Drug Abuse Patient Records regulations: The Federal rules restrict any use of the information to criminally investigate or prosecute any alcohol or drug abuse patient[facility] the event this information is protected by the Federal Confidentiality of Alcohol and Drug Abuse Patient Records regulations: The Federal rules restrict any use of the information to criminally investigate or prosecute any alcohol or drug abuse patient.[facility] Care Teams (unrecognized sec tion and content) [employer] Helper Relationship Specialty Start Date End Date Pcp, No, PIN ATTACHER PCP - General 01/25/10 08/20/10 Pcp, No, PIN ATTACHER PCP - General 09/11/10 04/22/11 Pcp, No, PIN ATTACHER PCP - General 05/03/11 06/24/11 Pcp, No, PIN ATTACHER PCP - General Family Medicine 07/27/15 07/27/15 Genna Mccarthy DO [address] [place] [address] PCP - General 07/28/15 09/14/15 Jefferson Roman Chi [address] [place], [place] [id number] PCP - General Gerontology 09/15/15 Celeste Benedict MD [address] [place], [place] [id number] Primary Staff Physician Cardiology 09/21/14 6 FOR [...] THE PRIMARY CLINICAL RECORDS. [facility] [facility]. provides no warranty or guarantee of the accuracy or completeness of information in this document.
[2025-05-17 07:53] LABS: Color, Urine Amber (Yellow); Glucose, Dipstick Normal (Normal); Ketone-Dipstick Negative (Negative); Leukocyte Esterase-Dipstick 25 /ul (Negative); Nitrite-Dipstick Positive (Negative); Occult Blood-Urine Negative /ul (Negative); Protein-Dipstick Negative (Negative); Specific Gravity, Urine 1.015 (1.002-1.030); Urine Bilirubin Dipstick Negative (Negative)
[2025-05-17 08:11] LABS: Squamous Epithelial Cells - UA 0-5 SEEN /hpf (5-10)
[2025-05-17 08:12] LABS: Calcium Oxalate Crystals Ur 2+ /hpf (<or=2+)
== END ==
LOC: OLS.SWAL 09:00
PROVIDERS: PCP Family Medicine
DX: N39.0 Urinary tract infection, site not specified (principal)
CPT/HCPCS: 81001; 87086